=== PATIENT | female | born 1985 | race Caucasian/White ===

== ENCOUNTER 2017-05-27 19:25 | Emergency (ER) | payer MEDICARE, MEDICAID, SELFPAY ==
[2017-05-27 19:27] VITALS: BP 157/95; PULSE 110; RESP 22; TEMP 36.8; O2SAT 100; BMI 51.3
--- NOTE | 2017-05-27 19:31 | EKG12_ITS ---
Test Reason : CP Blood Pressure : / mmHG Vent. Rate : 114 BPM Atrial Rate : 114 BPM P-R Int : 146 ms QRS Dur : 090 ms QT Int : 340 ms P-R-T Axes : 022 045 034 degrees QTc Int : 468 ms Sinus tachycardia Otherwise normal ECG Confirmed by MERLY ARCE, SALOME ([id number]), associate editor TERRY SANCHEZ ([id number]) on 05/30/2017 3:17:01 PM Referred By: MARILEE Confirmed By:SALOME MORELAND MD
--- NOTE | 2017-05-27 20:11 | CT_ITS ---
STUDY: CT BRAIN WITHOUT CONTRAST REASON FOR EXAM: Female, 31 years old. Stuttering with weakness and confusion. RADIATION DOSAGE (If Supplied By Facility): CTDIvol = ( 44.99 ) mGy, DLP = ( 748.30 ) mGycm TECHNIQUE: Transaxial CT imaging of the brain was performed without administration of intravenous contrast material. Multiplanar reformations are submitted for interpretation. Individualized dose optimization techniques were used for this CT. COMPARISON: CT of the head dated October 29, 2016. FINDINGS: Normal soft tissue structures. Patient has had a previous right-sided craniotomy. There is mild cerebral atrophy with widening of the extra-axial spaces and ventricular dilatation. Patient apparently has had partial resection of anterior right temporal lobe. This appearance is unchanged since the previous CT. Normal white matter tracts of the cerebral hemispheres. Normal basal ganglia and thalami. Normal brainstem. There is mild cerebellar atrophy. There is no intracranial hemorrhage. There is minimal atherosclerotic calcification of intracranial arteries Normal visualized paranasal sinuses. CT/Brain/Head without Contrast IMPRESSION: 1. Postoperative changes of the right temporal lobe and right cranium. 2. No CT evidence of acute intracranial hemorrhage. Electronically Signed: Ashly Banks MD at 21:31 EDT , Service support ,
[2017-05-27 20:36] LABS: Absolute Lymphocyte Count 1.87 X10^3/ul (0.83-4.51); Basophil# 0.02 X10^3/uL; Basophil% 0.3 % (0-1); Hematocrit 37.6 % (37-47); Hemoglobin 12.2 g/dl (12.0-15.0); Lymphocyte # 1.87 X10^3/ul (4.0); Lymphocyte % 25.5 % (19-41); Mean Corp Hgb Conc 32.4 g/gl (32-36); Mean Corpuscular Hgb 25.2 pg (27.0-32.0); Mean Corpuscular Volume 77.7 fL (81-99); Mean Platelet Vol. 9.5 fl (6.2-12.0); Monocyte# 0.49 X10^3/uL; Monocyte% 6.7 % (0-10); Neutrophil # 4.95 X10^3/uL (2.7-7.7); Neutrophil % 67.4 % (47-70); Platelet Count 342 K/mm3 (150-450); RBC Distribution Width CV 13.4 % (11.6-14.6); RBC Distribution Width SD 38.2 fl (35.1-43.9); Red Blood Count 4.84 M/mm3 (4.2-5.4); White Blood Count 7.3 K/mm3 (4.4-11.0)
[2017-05-27 20:38] LABS: POSITIVE COUNT NO; POSITIVE DIFFERENTIAL NO; POSITIVE MORPHOLOGY NO
[2017-05-27 20:47] LABS: Anion Gap 11 (5-15); BUN 12 mg/dL (7-18); BUN/Creat Ratio 14.5 RATIO (10-20); Calcium,Total 9.1 mg/dL (8.5-10.1); Chloride 108 mmol/L (98-107); Creatinine, Serum 0.83 mg/dL (0.55-1.02); EST Glomerular Filtration Rate 84 mL/min (>60); Est Glom Filt Rate - Afr Amer 101 mL/min (>60); Estimated Creatinine Clearance 79.75 ml/min; Glucose 91 mg/dL (74-106); Potassium 4.2 mmol/L (3.5-5.1); Sodium Level 140 mmol/L (136-145)
[2017-05-27] MEDS: 0.9% Normal Saline 1,000 ML 1000 ML IV (21:05)
[2017-05-27 21:06] LABS: Pregnancy, Serum, hCG Quali. NEGATIVE Negative (0-9 Nonpreg)
[2017-05-27 21:39] VITALS: BP 128/80; PULSE 100; RESP 14; O2SAT 96
--- NOTE | 2017-05-27 21:46 | ED.VISSUMM ---
- ER Visit Summary Date of Service: 05/27/17 Chief Complaint: Stuttering History of Present Illness: The patient is a [address] Ordonez and does not have a primary care physician. Patient reports that she has been stuttering for the past 2 days and that both arms are numb for the past 2 days. States that she has a headache that is 3 out of 10 severity. She also reports that she has mild shortness of breath and has not been wheezing. Patient denies any fever, sore throat, cough, chest pain, abdominal pain, nausea, vomiting, diarrhea, melena or hematochezia, dysuria or frequency. She denies any rash or weakness. Patient does have a history of depression. She denies any suicidal ideation or auditory hallucinations. Patient has a history of seizures that were refractory to treatment and she had a right temporal lobectomy for this. He is currently on Keppra. Physical Examination: Vitals: Stable. Afebrile. General: Well-nourished and well-developed. Head: Normocephalic atraumatic. Neck: Supple, no lymphadenopathy. No JVD. Nontender. Cardiovascular: Regular rate and rhythm. No murmurs. Respiratory: No respiratory distress. Clear to auscultation bilaterally. Abdominal: Soft, nontender, nondistended, normal bowel sounds. No guarding, rebound, or peritoneal signs. Back: Nontender. Extremities: Nontender, no edema. Skin: Normal color, no rash. Neurologic: Alert and oriented ?3. Cranial nerves II through XII are intact. Normal strength and sensation. Mental status exam: Patient appears their stated age. Good posture and grooming. Good eye contact. Normal rate, volume, and latency of speech. No suicidal or homicidal ideation. No auditory or visual hallucinations. Flow of thought is logical. Insight and judgment is fair. Test Results: CT brain shows postoperative changes from a right temporal lobe and cranium with no intracranial hemorrhage and no acute disease. CBC is normal. Chem-7 is more for chloride 108. test is negative. Emergency Department Course and Treatment: Throughout initial questioning the patient's daughter to when she stated no. However, with prolonged talking or conversation she had no stutter at all. When she was distracted she had no stutter. When I reentered the room to tell her the results of her tests she had no stutter. Despite the fact that she complains of paresthesias in her arms this is not present on exam. I suspect that this is due to depression and/or a conversion disorder. Treatment Plan: Patient will be discharged instructions to follow-up with her neurologist as soon as possible. She is also instructed follow-up the [facility] for further evaluation. Return to the emergency department for any worsening symptoms. Disposition: To home in improved and stable condition. Impression: 1. Depression. 2. History of seizures. 3. History of right temporal lobectomy. This note was generated with [employer] dictation software. It may contain incorrect words, spelling, and punctuation that were not noted in review of the chart prior to signing ED Disposition - Plan for ED Patient: Disposition: Home or Assisted Living Chief Complaint: Neuro S/Sx Instructions: ED Paraesthesias Referrals: Anderson Ordonez MD [STAFF PHYSICIAN] - As soon as possible Thuy Ortez [NON-STAFF] - 1-2 Days if not improving
[2017-05-27 21:55] VITALS: BP 135/80; PULSE 95; RESP 14; O2SAT 100
== END 2017-05-27 21:56 | disposition home or self-care (01) ==
LOC: ED 20:36
PROVIDERS: Emergency Provider Emergency Medicine
DX: F32.9 Major depressive disorder, single episode, unspecified (principal); R51 Headache; R20.2 Paresthesia of skin; R06.00 Dyspnea, unspecified; G40.909 Epilepsy, unspecified, not intractable, without status epilepticus
CPT/HCPCS: 70450; 80048; 84703; 85025; 93005; 99284; J7030; A4216

== ENCOUNTER 2017-07-24 12:27 | Emergency (ER) | payer OTHER, MEDICARE, MEDICAID, SELFPAY ==
[2017-07-24 12:28] VITALS: BP 165/107; PULSE 94; RESP 16; TEMP 36.9; O2SAT 98; BMI 50.3
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
--- NOTE | 2017-07-24 14:40 | ED.RN ---
DR DEE TALKED WITH PT. STATES HE WILL DO THE XRAY IF THAT IS WHAT IT TAKES FOR HER TO BE SAFE. DOES NOT WANT SOMETHING TO HAPPEN TO HER ITS NOT WORTH IT. SO WE WILL GET THE XRAY IF THAT IS WHAT IT TAKES. PT AGREEABLE THAT SHE FEELS XRAY IS SUFFICIENT AND WILL MAKE HER FEEL BELIEVED AND VERBALIZES SHE WILL NOT AND HAS NO NO PLANS TO HURT HERSELF.
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
[2017-07-24 15:20] VITALS: BP 154/92; PULSE 109; RESP 17; O2SAT 98
== END 2017-07-24 15:21 | disposition home or self-care (01) ==
PROVIDERS: Emergency Provider Emergency Medicine
DX: E28.2 Polycystic ovarian syndrome (principal); R10.33 Periumbilical pain; N93.8 Other specified abnormal uterine and vaginal bleeding; M54.5 Low back pain; F32.9 Major depressive disorder, single episode, unspecified; F60.3 Borderline personality disorder; G40.909 Epilepsy, unspecified, not intractable, without status epilepticus
CPT/HCPCS: 72100; 99282

== ENCOUNTER → 2017-08-30 16:07 | Outpatient (CLI) | payer MEDICARE, MEDICAID, SELFPAY ==
[2017-08-30 17:32] LABS: Absolute Lymphocyte Count 1.96 X10^3/ul (0.83-4.51); Absolute Neutrophil Count 3.4 X10^3/uL (2.0-7.7); Basophil# 0.04 X10^3/uL; Basophil% 0.7 % (0-1); Eosinophil# 0.09 X10^3/uL; Eosinophils% 1.5 % (0-5); Hematocrit 28.1 % (37-47); Hemoglobin 8.6 g/dl (12.0-15.0); Lymphocyte # 1.96 X10^3/ul (4.0); Lymphocyte % 32.7 % (19-41); Mean Corp Hgb Conc 30.6 g/gl (32-36); Mean Corpuscular Hgb 23.2 pg (27.0-32.0); Mean Corpuscular Volume 75.7 fL (81-99); Mean Platelet Vol. 9.8 fl (6.2-12.0); Monocyte# 0.53 X10^3/uL; Monocyte% 8.8 % (0-10); Neutrophil # 3.37 X10^3/uL (2.7-7.7); Neutrophil % 56.1 % (47-70); Platelet Count 389 K/mm3 (150-450); RBC Distribution Width CV 13.1 % (11.6-14.6); RBC Distribution Width SD 34.8 fl (35.1-43.9); Red Blood Count 3.71 M/mm3 (4.2-5.4)
[2017-08-30 17:37] LABS: POSITIVE COUNT NO; POSITIVE DIFFERENTIAL NO; POSITIVE MORPHOLOGY NO
[2017-09-03 09:04] LABS: Testosterone Free 1.4 pg/mL (0.0-4.2)
== END ==
PROVIDERS: Visit Provider Obstetrics & Gynecology
DX: L68.0 Hirsutism (principal); N93.9 Abnormal uterine and vaginal bleeding, unspecified
CPT/HCPCS: 36415; 84402; 85025

== ENCOUNTER 2017-09-06 22:09 | Emergency (ER) | payer MEDICARE, MEDICAID, SELFPAY ==
[2017-09-06 22:10] VITALS: BP 173/95; PULSE 83; RESP 20; TEMP 36.7; O2SAT 99; BMI 52.8
--- NOTE | 2017-09-06 22:24 | CT_ITS ---
STUDY: CT BRAIN WITHOUT CONTRAST REASON FOR EXAM: Female, 32 years old. Headache RADIATION DOSAGE (If Supplied By Facility): CTDIvol = ( 44.99 ) mGy, DLP = ( 779.24 ) mGycm TECHNIQUE: Transaxial CT imaging of the brain was performed without administration of intravenous contrast material. Individualized dose optimization techniques were used for this CT. COMPARISON: 05/27/2017 FINDINGS: There are stable postsurgical changes from a right temporal craniotomy. There is stable encephalomalacia anteriorly in the right temporal lobe. There is no acute bleed or infarct. There are normal white matter tracts. The ventricles are normal in configuration. There is no hydrocephalus. The visualized paranasal sinuses are clear. The mastoid air cells are well aerated. There is no skull fracture. CT/Brain/Head without Contrast IMPRESSION: No acute intracranial abnormality. Stable postsurgical changes from a right temporal craniotomy with subjacent encephalomalacia in the right anterior temporal lobe. Electronically Signed: Ronnie Fernando, at 23:17 EDT Tel , Service support ,
--- NOTE | 2017-09-06 22:43 | ED.VISSUMM ---
- ER Visit Summary Date of Service: 09/06/17 Chief Complaint: Multiple symptoms for the past weeks to months. History of Present Illness: The patient is a 32 F who presents with multiple symptoms for the past weeks to months that been intermittent in nature. She is complained of headache intermittently and blurred vision intermittently by ocular. She complains of numbness left side of her lower face with drooling. When she explained this to me she began to pick at her lip. She also began to cry because she felt stupid because polyps were missed when she was seen here last time. When asked for her to elaborate she informed me that she had uterine polyps. She also reports abnormal vaginal bleeding for greater than a month. She is scheduled to see a bus person dishwasher for possible hysterectomy. She denies fever, chills night sweats. Denies weight loss or weight gain. She denies partial loss of vision or total loss of vision. She denies ringing in her ears, decreased hearing or ear pain. She denies any eye pain or photo sensitivity. She denies any neck pain or neck stiffness. She denies slurred speech. She states sometimes she does not say the right word and will say a number. She denies any paresthesia, anesthesia motor weakness of her upper lower extremity. Denies trouble with balance or walking. She denies any skin lesions. She does admit to depression anxiety. Past medical history of depression, seizure disorder and polycystic ovarian syndrome. Physical Examination: Patient's vital signs are noted. Blood pressure is elevated 173/93. She has a depressed affect and was crying during the history and physical. Pupils equal round reactive. Extra muscles are intact. TMs are normal. Nares patent. No discharge or drainage noted. Posterior pharynx without erythema XA. Uvula is midline. Trachea is midline. Is no carotid bruit. No cervical lymphadenopathy. Heart is regular without murmur, gallop or rub. S1 and S2 are normal. Lungs are clear to auscultation with good movement of air bilaterally. Abdomen is soft nontender with normal bowel sounds. No skin lesions or rashes noted. She does have hirsutism. Patient is alert and oriented ?3. Motor is 5 over 5. Sensory is intact. DTRs are symmetric with no clonus or Babinski sign. Cranial 2 through 12 are intact. Cerebellar testing is normal. Test Results: CT of the head reveals postoperative changes of the right temporal lobe and right cranium and unchanged from CT performed on May 27, 2017. CBC reveals macrocytic anemia. She is presently taking iron sulfate 3 and 25 mg twice a day. Emergency Department Course and Treatment: To evaluate patient's constellation of symptoms will obtain a CAT scan of the head and blood work. Differential includes pseudodementia from depression, sinusitis, intracranial pathology i.e. tumor, and will assess electrolytes since she is on Keppra which can cause hyponatremia. Treatment Plan: Patient informed her nurse, Nathan, she has spinning when she turns her head to the right. Will perform Hallpike maneuver and if positive Marlyn maneuver. [place]-Hallpike maneuver was negative. Eye askew test was negative. No abnormality noted on H INT test Disposition: Discharged to home in stable condition. Impression: 1. Confusion unknown cause 2. Vertigo suspect paroxysmal benign positional vertigo 3. Microcytic anemia secondary to abnormal vaginal bleeding 4. History of polycystic ovarian syndrome 5. History of seizure disorder status post craniotomy 6. History of depression anxiety This note was generated with [employer] dictation software. It may contain incorrect words, spelling, and punctuation that were not noted in review of the chart prior to signing ED Disposition - Plan for ED Patient: Disposition: Home or Assisted Living Chief Complaint: Allergic Reaction Instructions: ED Confusion, ED BPV Vertigo, ED Anemia Iron Deficiency Referrals: Abdirashid Vazquez DO [Primary Care Provider] - 5-7 Days
--- NOTE | 2017-09-06 22:49 | ED.DCSUM_ITS ---
- ER Visit Summary Date of Service: 09/06/17 Chief Complaint: Multiple symptoms for the past weeks to months. History of Present Illness: The patient is a 32 F who presents with multiple symptoms for the past weeks to months that been intermittent in nature. She is complained of headache intermittently and blurred vision intermittently by ocular. She complains of numbness left side of her lower face with drooling. When she explained this to me she began to pick at her lip. She also began to cry because she felt stupid because polyps were missed when she was seen here last time. When asked for her to elaborate she informed me that she had uterine polyps. She also reports abnormal vaginal bleeding for greater than a month. She is scheduled to see a environmental remediation specialist for possible hysterectomy. She denies fever, chills night sweats. Denies weight loss or weight gain. She denies partial loss of vision or total loss of vision. She denies ringing in her ears, decreased hearing or ear pain. She denies any eye pain or photo sensitivity. She denies any neck pain or neck stiffness. She denies slurred speech. She states sometimes she does not say the right word and will say a number. She denies any paresthesia, anesthesia motor weakness of her upper lower extremity. Denies trouble with balance or walking. She denies any skin lesions. She does admit to depression anxiety. Past medical history of depression, seizure disorder and polycystic ovarian syndrome. Physical Examination: Patient's vital signs are noted. Blood pressure is elevated 173/93. She has a depressed affect and was crying during the history and physical. Pupils equal round reactive. Extra muscles are intact. TMs are normal. Nares patent. No discharge or drainage noted. Posterior pharynx without erythema XA. Uvula is midline. Trachea is midline. Is no carotid bruit. No cervical lymphadenopathy. Heart is regular without murmur, gallop or rub. S1 and S2 are normal. Lungs are clear to auscultation with good movement of air bilaterally. Abdomen is soft nontender with normal bowel sounds. No skin lesions or rashes noted. She does have hirsutism. Patient is alert and oriented ?3. Motor is 5 over 5. Sensory is intact. DTRs are symmetric with no clonus or Babinski sign. Cranial 2 through 12 are intact. Cerebellar testing is normal. Test Results: CT of the head reveals postoperative changes of the right temporal lobe and right cranium and unchanged from CT performed on May 27, 2017. CBC reveals macrocytic anemia. She is presently taking iron sulfate 3 and 25 mg twice a day. Emergency Department Course and Treatment: To evaluate patient's constellation of symptoms will obtain a CAT scan of the head and blood work. Differential includes pseudodementia from depression, sinusitis, intracranial pathology i.e. tumor, and will assess electrolytes since she is on Keppra which can cause hyponatremia. Treatment Plan: Patient informed her nurse, Nathan, she has spinning when she turns her head to the right. Will perform Hallpike maneuver and if positive Marlyn maneuver. [place]-Hallpike maneuver was negative. Eye askew test was negative. No abnormality noted on H INT test Disposition: Discharged to home in stable condition. Impression: 1. Confusion unknown cause 2. Vertigo suspect paroxysmal benign positional vertigo 3. Microcytic anemia secondary to abnormal vaginal bleeding 4. History of polycystic ovarian syndrome 5. History of seizure disorder status post craniotomy 6. History of depression anxiety This note was generated with [employer] dictation software. It may contain incorrect words, spelling, and punctuation that were not noted in review of the chart prior to signing ED Disposition - Plan for ED Patient: Disposition: Home or Assisted Living Chief Complaint: Allergic Reaction Instructions: ED Confusion, ED BPV Vertigo, ED Anemia Iron Deficiency Referrals: Abdirashid Vazquez DO [Primary Care Provider] - 5-7 Days
[2017-09-06 22:53] LABS: Absolute Lymphocyte Count 2.12 X10^3/ul (0.83-4.51); Absolute Neutrophil Count 4.4 X10^3/uL (2.0-7.7); Basophil# 0.03 X10^3/uL; Basophil% 0.4 % (0-1); Eosinophil# 0.07 X10^3/uL; Hematocrit 30.1 % (37-47); Hemoglobin 9.4 g/dl (12.0-15.0); Lymphocyte # 2.12 X10^3/ul (4.0); Lymphocyte % 29.4 % (19-41); Mean Corp Hgb Conc 31.2 g/gl (32-36); Mean Platelet Vol. 9.8 fl (6.2-12.0); Monocyte# 0.52 X10^3/uL; Monocyte% 7.2 % (0-10); Neutrophil # 4.42 X10^3/uL (2.7-7.7); Neutrophil % 61.4 % (47-70); Platelet Count 357 K/mm3 (150-450); RBC Distribution Width SD 38.4 fl (35.1-43.9); Red Blood Count 3.91 M/mm3 (4.2-5.4); White Blood Count 7.2 K/mm3 (4.4-11.0)
[2017-09-06 22:54] LABS: POSITIVE COUNT NO; POSITIVE DIFFERENTIAL NO; POSITIVE MORPHOLOGY NO
[2017-09-06 23:16] LABS: Anion Gap 9 (5-15); BUN 11 mg/dL (7-18); BUN/Creat Ratio 14.4 RATIO (10-20); Calcium,Total 8.9 mg/dL (8.5-10.1); Chloride 108 mmol/L (98-107); Creatinine, Serum 0.77 mg/dL (0.55-1.02); EST Glomerular Filtration Rate 92 mL/min (>60); Est Glom Filt Rate - Afr Amer 111 mL/min (>60); Estimated Creatinine Clearance 85.16 ml/min; Glucose 93 mg/dL (74-106); Potassium 4.3 mmol/L (3.5-5.1); Sodium Level 139 mmol/L (136-145)
[2017-09-06 23:19] VITALS: BP 152/68; PULSE 68; RESP 16; O2SAT 98
[2017-09-06 23:28] VITALS: BP 152/68; PULSE 75; RESP 24; O2SAT 99
== END 2017-09-06 23:31 | disposition home or self-care (01) ==
PROVIDERS: Emergency Provider Emergency Medicine; Family Provider Student in an Organized Health Care Education/Training Program; PCP Student in an Organized Health Care Education/Training Program
DX: R41.0 Disorientation, unspecified (principal); R42 Dizziness and giddiness; D50.9 Iron deficiency anemia, unspecified; E28.2 Polycystic ovarian syndrome; G40.909 Epilepsy, unspecified, not intractable, without status epilepticus; F41.8 Other specified anxiety disorders; E66.9 Obesity, unspecified
CPT/HCPCS: 70450; 80048; 85025; 99285; A4216

== ENCOUNTER 2017-09-14 12:03 | Day surgery (SDC) | payer MEDICARE, MEDICAID, SELFPAY ==
--- NOTE | 2017-09-12 17:11 | HP.PCM_ITS ---
- Problem List (1) Abnormal uterine bleeding Status: Acute Comment: recommend d and c hysteroscopy, provera given History and Physical Date of Admission: 09/14/17 Vital Signs 08/30/17 Height 5 ft 4 in 08/30/17 Weight: 300 lb 4 oz 08/30/17 Body Mass Index (BMI) 51.5 08/30/17 Blood Pressure 118/78 Intake Visit Reasons: discuss abnormal ultrasound Is patient in pain?: Yes (Most of the time) Pain scale (1-10): 7 Allergies phenobarbital Allergy (Verified 08/30/17 15:24) Unknown Medications levETIRAcetam tablet [Keppra tablet] 1,000 mg PO BREAKFAST 05/24/15 [History Confirmed 07/24/17] levETIRAcetam tablet [Keppra tablet] 500 mg PO QHS 11/12/15 [History Confirmed 07/24/17] ALPRAZolam [Xanax] 2 mg PO TID PRN PRN tab 11/01/16 [Rx Confirmed 07/24/17] Amitriptyline HCl 1 - 3 tab PO PRN PRN 12/12/16 [History Confirmed 07/24/17] megestrol 40 mg tablet 40 mg PO ONCE #30 tab 08/30/17 [Rx Confirmed 08/30/17] PFSH Medical History Anxiety and depression (Acute) Surgical History partial labotomy (Acute) Family History Mother Heart disease Social History Smoking Status: Never smoker alcohol intake: current details: social substance use type: does not use caffeine: Yes what type of physical activity do you participate in: none seatbelt use: always do you feel safe at home: Yes additional social history: single-unemployed HPI discuss abnormal ultrasound: Details: JOSSE WAYNE is a 32 year old who presents for persistent abnormal bleeding. [facility] lining. she has had irregular bleeding for several months now. she has had negatve tests during all of this. she has tried intermittent progesterone with persistent bleeding. Female Reproductive History Questions: Metorrhagia: Yes, Sexually active: No Pregancy History 0 Elective abortions Hx Para Spontaneous abortions Hx # Term Pregnancies Ectopic pregnancies Hx # Pregnancies Multiple births # of living children ROS Const Constitutional: Reports system reviewed and no additional complaints, except as docu GI GI: Reports system reviewed and no additional complaints, except as docu Exam Const General: cooperative, healthy appearing, comfortable, no acute distress, well developed Nutritional Appearance: obese morbidy Orientation: alert [facility] Head: normal to inspection, normocephalic Ears: hearing grossly normal bilaterally, external ears normal Nose: external nose normal, nares normal Face and sinus: normal facial exam Neck Neck: normal visual inspection, trachea midline, no lymphadenopathy Thyroid: thyroid normal Resp Effort & Inspection: normal respiratory effort Musc Other: gross motor intact no deficits, full bilateral strength Skin General: no rashes or lesions noted Neuro Motor: muscle tone normal throughout Assessment & Plan Problems 1. Hirsutism L68.0 2. PCOS (polycystic ovarian syndrome) E28.2 3. Abnormal uterine bleeding N93.9 recommend d and c hysteroscopy, provera given Plan recommend endometrial evaluation. plan d and c hysteroscopy Orders Orders: CBC W/Diff, Automated 08/30/17 L68.0, N93.9 Testosterone Free 08/30/17 L68.0, N93.9 Medications New: megestrol 40 mg PO ONCE Coding Level of Care Code Off vis,est,level 4 Diagnoses Hirsutism L68.0 PCOS (polycystic ovarian syndrome) E28.2 Abnormal uterine bleeding N93.9 UPDATE- I have seen the patient and performed any clinically relevant updates to the history and physical exam. Sheyla Foster MD
[2017-09-14] VITALS (7 sets, daily range): BP systolic 103–138; BP diastolic 65–94; PULSE 63–78; RESP 16–18; TEMP 36.5–36.9; O2SAT 94–100; BMI 51.0
[2017-09-14 12:32] LABS: Internal QC Validated? YES +Cl - CLEAR BKGD; Pregnancy, Urine Negative Negative
--- NOTE | 2017-09-14 13:50 | EMB_PTH ---
PATIENT: JOSSE WAYNE LOC[place] [facility] [place][id number] AGE/SX: 32/F ROOM: RE09/14/[address]: Dr. Sheyla Foster MD : [id number] BED: DIS: 09/14/2017 SPEC #: [id number] RECD: 09/15/17 06:57 STATUS: FLORENCE ANDERS #: [id number] MAG: 09/14/17 13:[address]: Sheyla Foster DEPT: SURGICAL PATHOLOGY RECD BY: Derrick Thomas ENTERED: 09/15/17 11:38 SP TYPE: ENDOM BX/C TAYLOR DR: No Primary Care Phys Tissues: Endometrium, NOS Procedures: Surgery Specimen Level IV HEADER OPERATION: Hysteroscopy, dilation and curettage PRE-OP DIAGNOSIS: Abnormal uterine bleeding TISSUE SUBMITTED: Endometrial curettings MICROSCOPIC DIAGNOSIS Endometrial curettings: Disordered proliferative endometrium. SJ:todd 09/18/17 MICROSCOPIC DESCRIPTION Slides are reviewed. GROSS DESCRIPTION Received in fixative is one container labeled with the patient's name and designated endometrial curettings. The specimen consists of multiple irregular fragments of dark to light costa soft tissue that in aggregate measure 5 x 3 x 0.2 cm. The specimen is totally submitted in two cassettes. / AM:todd 09/15/17 TC:5 CPT: 34168
--- NOTE | 2017-09-14 14:12 | PCM.OPRPT ---
Problem List (1) Abnormal uterine bleeding Status: Acute Comment: recommend d and c hysteroscopy, provera given Report of Operation Date of Procedure: 09/14/17 Pre-Operative Diagnosis: AUB Surgery/Procedure Performed:: d and c hysteroscopy Description of Surgical Findings:: Thickened endometrial lining no gross abnormality Type of Anesthesia:: Local MAC Special Medications: none Specimen's removed: emc Drains: none Estimated Blood Loss (mL): Minimal Fluids Replaced: crystalloid Description of Procedure: Patient was prepped and draped in a normal sterile fashion under MAC anesthesia. A weighted speculum was placed in the vagina and the anterior lip of the cervix was grasped with a single-tooth tenaculum. A paracervical block was placed with 1% lidocaine. Cervix was progressively dilated to allow passage of a 5 mm hysteroscope. The lining was fully visualized and noted to have thickened lining. Uterine sounded to 9 cm. Curettage was performed and a moderate amount of tissue was collected, sent to pathology. All instruments were removed from the vagina and excellent hemostasis was noted. Patient was awoken and taken to recovery in stable condition. Grafts/Implants Used: None - Complications None - Admit VTE Documentation VTE Present on Admission: No VTE Mechan Device Prophylaxis: SCD's
--- NOTE | 2017-09-14 14:21 | PCM.DC.D&C ---
Discharge Diet: No Restrictions Discharge Activity: Return to Normal Activity, May Shower, May Take a Tub Bath Allergies/Adverse Reactions: Allergies phenobarbital Allergy (Verified 09/08/17 08:11) Unknown Medications to take at Discharge levETIRAcetam tablet [Keppra tablet] 1,000 mg PO BREAKFAST 05/24/15 levETIRAcetam tablet [Keppra tablet] 500 mg PO QHS 11/12/15 Amitriptyline HCl 1 - 3 tab PO PRN PRN 12/12/16 Biotin 1 tab PO DAILY 09/06/17 Ferrous Sulfate [Iron] 1 tab PO TID 09/06/17 ALPRAZolam [Xanax] 2 mg PO BID 09/08/17 Megestrol Acetate 40 mg PO DAILY 09/08/17 Primary Care Physician: Care Physician,No Primary [Primary Care Provider] - Test Results: Please Follow Up With: Sheyla Foster MD - [phone]
== END 2017-09-14 16:07 | disposition home or self-care (01) ==
LOC: SDC 12:04 → AC 12:05
PROVIDERS: Visit Provider Obstetrics & Gynecology
PROC: 0UDB8ZZ Extraction of Endometrium, Via Natural or Artificial Opening Endoscopic (ICD-10-PCS; CPT 58558; principal; 2017-09-14 13:40)
DX: N93.9 Abnormal uterine and vaginal bleeding, unspecified (principal); E28.2 Polycystic ovarian syndrome; L68.0 Hirsutism; E66.01 Morbid (severe) obesity due to excess calories; Z68.43 Body mass index [BMI] 50.0-59.9, adult
CPT/HCPCS: 58558; 81025; 88305; J7120

== ENCOUNTER 2017-11-16 13:07 | Emergency (ER) | payer MEDICARE, MEDICAID, SELFPAY ==
[2017-11-16] VITALS (9 sets, daily range): BP systolic 127–152; BP diastolic 75–97; PULSE 65–78; RESP 14–18; TEMP 37; O2SAT 97–100; BMI 50.6
--- NOTE | 2017-11-16 13:21 | EKG12_ITS ---
Test Reason : MENTAL HEALTH Blood Pressure : / mmHG Vent. Rate : 060 BPM Atrial Rate : 060 BPM P-R Int : 174 ms QRS Dur : 098 ms QT Int : 420 ms P-R-T Axes : 012 031 040 degrees QTc Int : 420 ms Normal sinus rhythm with sinus arrhythmia Normal ECG Confirmed by JOSE DE JESUS LIU ([id number]), visual effects editor TERRY SANCHEZ ([id number]) on 11/21/2017 2:37:23 PM Referred By: FRANCINE Confirmed By:JOSE DE JESUS LIU
[2017-11-16 14:17] LABS: Absolute Lymphocyte Count 1.81 X10^3/ul (0.83-4.51); Absolute Neutrophil Count 2.7 X10^3/uL (2.0-7.7); Basophil# 0.02 X10^3/uL; Basophil% 0.4 % (0-1); Eosinophil# 0.03 X10^3/uL; Eosinophils% 0.6 % (0-5); Hematocrit 40.1 % (37-47); Lymphocyte # 1.81 X10^3/ul (4.0); Lymphocyte % 37.5 % (19-41); Mean Corp Hgb Conc 32.4 g/gl (32-36); Mean Corpuscular Hgb 26.3 pg (27.0-32.0); Mean Corpuscular Volume 81.2 fL (81-99); Mean Platelet Vol. 9.5 fl (6.2-12.0); Monocyte# 0.31 X10^3/uL; Monocyte% 6.4 % (0-10); Neutrophil # 2.66 X10^3/uL (2.7-7.7); Neutrophil % 55.1 % (47-70); POSITIVE COUNT NO; POSITIVE DIFFERENTIAL NO; POSITIVE MORPHOLOGY NO; Platelet Count 265 K/mm3 (150-450); RBC Distribution Width CV 15.9 % (11.6-14.6); RBC Distribution Width SD 46.8 fl (35.1-43.9); Red Blood Count 4.94 M/mm3 (4.2-5.4); White Blood Count 4.8 K/mm3 (4.4-11.0)
[2017-11-16 14:37] LABS: ALB/GLOB Ratio 0.9 RATIO (0.9-2.4); AST(SGOT) 36 U/L (15-37); Alanine Aminotransfer ALT/SGPT 49 U/L (13-56); Albumin, Serum 3.6 g/dL (3.2-5.0); Alkaline Phosphatase 85 U/L (45-117); Anion Gap 10 (5-15); BUN 9 mg/dL (7-18); BUN/Creat Ratio 11.4 RATIO (10-20); Chloride 107 mmol/L (98-107); Creatinine, Serum 0.79 mg/dL (0.55-1.02); EST Glomerular Filtration Rate 89 mL/min (>60); Est Glom Filt Rate - Afr Amer 107 mL/min (>60); Estimated Creatinine Clearance 86.65 ml/min; Globulin 4.1 g/dL (2.2-4.2); Glucose 87 mg/dL (74-106); Potassium 3.7 mmol/L (3.5-5.1); Protein, Total 7.7 g/dL (6.4-8.2); Sodium Level 141 mmol/L (136-145); Thyroid Stim Hormone (TSH) 1.69 uIU/mL (0.358-3.74)
[2017-11-16 14:45] LABS: Amphetamine Urine VISTA NEGATIVE (<1000 ng/mL); Barbiturate Urine VISTA NEGATIVE (< 200 ng/mL); Benzodiazepine Urine VISTA POSITIVE (< 200 ng/mL); Cocaine Urine VISTA NEGATIVE (< 300 ng/mL); Ecstacy Urine VISTA NEGATIVE (< 500 ng/mL); Methadone Urine VISTA NEGATIVE (< 300 ng/mL); PCP Urine VISTA NEGATIVE (< 25 ng/mL); THC Urine VISTA NEGATIVE (< 50 ng/mL); Vista UDS pH Range 7
[2017-11-16 14:59] LABS: Alcohol, Blood (Medical)-Serum < 3.0 mg/dL
--- NOTE | 2017-11-16 15:02 | ED.RN ---
1308- Sitter at bedside for one to one continual observation.
[2017-11-16 15:05] LABS: Pregnancy, Serum, hCG Quali. NEGATIVE Negative (0-9 Nonpreg)
--- NOTE | 2017-11-16 15:12 | ED.RN ---
CALLED MENTAL HEALTH TO NOTIFY THAT PATIENT IS MEDICALLY CLEARED
[2017-11-16 15:40] LABS: Mucous, Urine 0 SEEN /hpf (<or=2+)
[2017-11-16 15:45] LABS: Color, Urine Yellow (Yellow); Glucose, Dipstick Normal (Normal); Ketone-Dipstick 5 mg/dl (Negative); Leukocyte Esterase-Dipstick 25 /ul (Negative); Nitrite-Dipstick Negative (Negative); Occult Blood-Urine 250 /ul (Negative); Protein-Dipstick 15 mg/dl (Negative); Urine Bilirubin Dipstick Negative (Negative); Urine Clarity Sl. Cloudy (Clear); Urine Urobilinogen Normal (Normal)
[2017-11-16 16:12] LABS: White Blood Cells 0-5 SEEN /hpf (0-5)
[2017-11-16 16:13] LABS: Bacteria RARE /hpf (None Seen); Red Blood Cells-Urine > 100 SEEN /hpf (0-5); Squamous Epithelial Cells - UA 0-5 SEEN /hpf (5-10)
--- NOTE | 2017-11-16 16:57 | ED.VISSUMM ---
- ER Visit Summary Date of Service: 11/16/17 Chief Complaint: Depression History of Present Illness: The patient is a 32 F who presents with depression due to stress in her life. She is long history of depression and anxiety. She has had prior suicide attempts. She was talking with her counselor down at [address] today and made comments that she was not sure if she was going to be able to keep living. She states that she does not like to be admitted to psychiatric facility but she knows that she needs to get better coping skills and feels like she needs to get stabilized. She has been trying to reduce her Xanax use from 3 times a day down to once or twice however in the past week she is gone up to 3 times a day. She states that she has been under a lot of stress and a person named Raymundo has caused her a lot of stress. She notes stress with her family. Physical Examination: Gen: Well-nourished well-developed Head: Normocephalic atraumatic Eyes: Perrl EOMI ENT: TMs clear no rhinorrhea moist mucous membranes Neck: Supple no lymphadenopathy no JVD nontender CVS: Regular rate rhythm no murmurs normal S1-S2 Respiratory: No distress clear to auscultation bilaterally chest nontender Abdomen: Soft nontender nondistended normal bowel sounds no masses Back: Nontender Extremity: Nontender no edema Skin: Normal color no rash Neuro: alert orientated ?3 CN II-XII intact normal strength sensation reflexes gait cerebellar Psych: Depressed and tearful with occasional pressured speech no homicidal ideation. She is not sure about suicidal ideation. Test Results: CBC CMP EKG urinalysis test drugs of abuse and alcohol level were obtained. Patient was cleared for crisis. Emergency Department Course and Treatment: Patient cleared for crisis and crisis will come and evaluate the patient. Impression: 1. Depression This note was generated with [employer] dictation software. It may contain incorrect words, spelling, and punctuation that were not noted in review of the chart prior to signing ED Disposition - Plan for ED Patient: Chief Complaint: Suicidal Referrals: Care Physician,No Primary [Primary Care Provider] -
[2017-11-16] MEDS: levETIRAcetam 500 MG Tablet PO (21:26)
[2017-11-16] MEDS: ALPRAZolam 0.5 MG Tablet 2 MG PO (21:29)
--- NOTE | 2017-11-16 22:21 | ED.RN ---
patients house and mailbox perez are currently locked up with security at this time. Security will hold keys until either patient or POA can obtain them
[2017-11-17 00:37] VITALS: PULSE 65; RESP 18; O2SAT 98
== END 2017-11-17 00:38 | disposition home or self-care (01) ==
PROVIDERS: Emergency Provider Emergency Medicine
DX: F32.9 Major depressive disorder, single episode, unspecified (principal); F41.9 Anxiety disorder, unspecified; Z79.899 Other long term (current) drug therapy
CPT/HCPCS: 80053; 80307; 80320; 81001; 84443; 84703; 85025; 93005; 99284; G0480

== ENCOUNTER 2018-01-02 22:26 | Emergency (ER) | payer MEDICARE, SELFPAY ==
[2018-01-02 22:26] VITALS: BP 168/118; PULSE 86; RESP 14; TEMP 36.6; O2SAT 99; BMI 52.7
--- NOTE | 2018-01-02 22:54 | ED.DEP ---
ED Disposition - Plan for ED Patient: Chief Complaint: Chest Other Instructions: ED Cyst Sebaceous Infec IandD Prescriptions: Cephalexin [Keflex] 500 mg PO Q6 #40 cap Smz/Tmp Ds [Bactrim Ds] 1 tab PO BID #14 tab Referrals: Care Physician,No Primary [Primary Care Provider] - Anderson Castano MD [STAFF PHYSICIAN] -
--- NOTE | 2018-01-02 22:58 | ED.DCSUM_ITS ---
- ER Visit Summary Date of Service: 01/02/18 Chief Complaint: Lump on left upper chest History of Present Illness: The patient is a 32 F who presents with a lump or lesion on her left upper chest. She states she has had a painless nodule there for about 2-3 years. She was told it was a benign fatty tumor. She was advised to follow-up with plastic surgery if she wanted to have this removed. Today however she noticed overlying redness increasing size and tenderness. She has no systemic symptoms. Physical Examination: Afebrile vitals notable for blood pressure 168/118 Patient appears anxious Heart regular rate and rhythm Lungs are clear Abdomen soft There is a 1 cm left upper chest nodule with overlying erythema which is tender to palpation Test Results: [id number]-dh-[id number] ultrasound does show a well-circumscribed right fluid-filled cystic structure Emergency Department Course and Treatment: Examination findings are consistent with an infected sebaceous cyst. I initially attempted needle aspiration with an 18-gauge needle after infiltration with 1% local lidocaine but this was unsuccessful. A small linear incision was then made with a #11 blade and very thick purulent material was expressed. Patient will be placed on Keflex and Bactrim. She was advised to follow-up with plastics. She was advised of the possibility of recurrence. She was instructed on warm compresses. She was instructed on signs and symptoms to monitor for. Treatment Plan: [] Disposition: Discharge Impression: Incision and drainage of infected sebaceous cyst Sebaceous cyst left upper chest This note was generated with [employer] dictation software. It may contain incorrect words, spelling, and punctuation that were not noted in review of the chart prior to signing ED Disposition - Plan for ED Patient: Chief Complaint: Chest Other Instructions: ED Cyst Sebaceous Infec IandD Prescriptions: Cephalexin [Keflex] 500 mg PO Q6 #40 cap Smz/Tmp Ds [Bactrim Ds] 1 tab PO BID #14 tab Referrals: Anderson Castano MD [STAFF PHYSICIAN] - Care Physician,No Primary [Primary Care Provider] -
[2018-01-02 23:05] VITALS: PULSE 78; RESP 16; O2SAT 99
== END 2018-01-02 23:06 | disposition home or self-care (01) ==
LOC: ED 22:59
PROVIDERS: Emergency Provider Emergency Medicine; Family Provider Student in an Organized Health Care Education/Training Program; PCP Student in an Organized Health Care Education/Training Program
DX: L72.3 Sebaceous cyst (principal); G40.909 Epilepsy, unspecified, not intractable, without status epilepticus
CPT/HCPCS: 10060; 99282

== ENCOUNTER 2018-09-03 22:05 | Inpatient (IN) | payer MEDICARE, MEDICAID, SELFPAY ==
[2018-09-03 22:06] VITALS: BP 147/103; PULSE 139; RESP 24; TEMP 36.1; O2SAT 95; BMI 55.0
--- NOTE | 2018-09-03 22:14 | CT_ITS ---
STUDY: CT BRAIN WITHOUT CONTRAST REASON FOR EXAM: Female, 33 years old. Confusion. Patient found unresponsive. RADIATION DOSAGE (If Supplied By Facility): CTDIvol = ( 44.99 ) mGy, DLP = ( 745.49 ) mGycm TECHNIQUE: Transaxial CT imaging of the brain was performed without administration of intravenous contrast material. Individualized dose optimization techniques were used for this CT. COMPARISON: September 06, 2017. FINDINGS: Normal soft tissue structures. There is evidence of remote temporal craniotomy. Normal size ventricles and extra-axial spaces for the patient's age. Normal white matter tracts of the cerebral hemispheres. 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 Normal basal ganglia and thalami. Normal brainstem. Normal cerebellum. There is no intracranial hemorrhage. There are no findings of an acute ischemic infarction. Normal visualized paranasal sinuses. CT/Brain/Head without Contrast IMPRESSION: No acute intracranial process or interval change. Again seen is evidence of a remote right craniotomy with underlying temporal encephalomalacia. Electronically Signed: Jad Bravo DO at 23:35 EDT Tel [phone], Service support ,
--- NOTE | 2018-09-03 22:14 | RAD_ITS ---
STUDY: X-RAY CHEST REASON FOR EXAM: Female, 33 years old. Unresponsive. TECHNIQUE: Single AP portable view of the chest. COMPARISON: October 31, 2016. FINDINGS: Markedly limited inspiratory effort. Mild perihilar interstitial prominence. There is no demonstrated pleural abnormality. There is borderline cardiomegaly. Normal mediastinum and justo. Normal visualized pulmonary arteries. Normal visualized aortic arch and descending thoracic aorta. Normal visualized thoracic spine. Normal visualized ribs, clavicles, and shoulders. There is no demonstrated abnormality of the visualized soft tissue structures of the upper abdomen. RAD/Chest 1 View (Portable) IMPRESSION: Cardiomegaly with poor inspiratory effort and questionable mild vascular congestion versus vascular crowding. Electronically Signed: Jad Bravo DO at 23:35 EDT Tel [phone], Service support ,
--- NOTE | 2018-09-03 22:14 | EKG12_ITS ---
Test Reason : Blood Pressure : / mmHG Vent. Rate : 135 BPM Atrial Rate : 135 BPM P-R Int : 120 ms QRS Dur : 112 ms QT Int : 354 ms P-R-T Axes : 095 060 049 degrees QTc Int : 531 ms Sinus tachycardia Cannot rule out Anterior infarct , age undetermined Abnormal ECG Prolonged QT interval Confirmed by JOSE DE JESUS LIU ([id number]), editor in chief LILLIE POLLOCK ([id number]) on 09/05/2018 1:41:14 PM Referred By: LUDY Confirmed By:JOSE DE JESUS LIU
[2018-09-03] MEDS: Naloxone 2 MG/2 ML Syringe IV (22:15)
[2018-09-03 22:39] LABS: Absolute Lymphocyte Count 1.35 X10^3/ul (0.83-4.51); Absolute Neutrophil Count 8.2 X10^3/uL (2.0-7.7); Basophil# 0.03 X10^3/uL; Basophil% 0.3 % (0-1); Hematocrit 40.6 % (37-47); Lymphocyte # 1.35 X10^3/ul (4.0); Lymphocyte % 13.3 % (19-41); Mean Corp Hgb Conc 34.5 g/gl (32-36); Mean Corpuscular Volume 84.1 fL (81-99); Mean Platelet Vol. 9.5 fl (6.2-12.0); Monocyte% 5.9 % (0-10); Neutrophil # 8.15 X10^3/uL (2.7-7.7); Neutrophil % 80.1 % (47-70); POSITIVE COUNT NO; POSITIVE DIFFERENTIAL NO; POSITIVE MORPHOLOGY NO; Platelet Count 315 K/mm3 (150-450); RBC Distribution Width CV 12.4 % (11.6-14.6); RBC Distribution Width SD 37.2 fl (35.1-43.9); Red Blood Count 4.83 M/mm3 (4.2-5.4); White Blood Count 10.2 K/mm3 (4.4-11.0)
[2018-09-03 22:49] LABS: ALB/GLOB Ratio 0.8 RATIO (0.9-2.4); AST(SGOT) 22 U/L (15-37); Alanine Aminotransfer ALT/SGPT 36 U/L (13-56); Albumin, Serum 3.5 g/dL (3.2-5.0); Alkaline Phosphatase 85 U/L (45-117); Anion Gap 6 (5-15); BUN 11 mg/dL (7-18); BUN/Creat Ratio 11.9 RATIO (10-20); Calcium,Total 9.1 mg/dL (8.5-10.1); Chloride 111 mmol/L (98-107); Creatinine, Serum 0.92 mg/dL (0.55-1.02); EST Glomerular Filtration Rate 74 mL/min (>60); Est Glom Filt Rate - Afr Amer 89 mL/min (>60); Globulin 4.2 g/dL (2.2-4.2); Glucose 102 mg/dL (74-106); Internal QC Validated? YES +Cl - CLEAR BKGD; Pregnancy, Serum, hCG Quali. NEGATIVE Negative; Protein, Total 7.7 g/dL (6.4-8.2); Sodium Level 141 mmol/L (136-145)
[2018-09-03 22:55] LABS: Lactic Acid 1.6 mmol/L (0.4-2.0)
[2018-09-03 22:58] VITALS: BP 133/87; PULSE 110; RESP 16; TEMP 35.1; O2SAT 95
[2018-09-03 23:01] LABS: Bacteria 0 SEEN /hpf (None Seen); Mucous, Urine 0 SEEN /hpf (<or=2+)
[2018-09-03] MEDS: 0.9% Normal Saline 1,000 ML 1000 ML IV (23:01)
[2018-09-03 23:06] VITALS: BP 134/95; PULSE 107; RESP 16; O2SAT 94
[2018-09-03 23:08] LABS: Color, Urine Yellow (Yellow); Glucose, Dipstick Normal (Normal); Ketone-Dipstick 5 mg/dl (Negative); Leukocyte Esterase-Dipstick 25 /ul (Negative); Nitrite-Dipstick Negative (Negative); Occult Blood-Urine 10 /ul (Negative); Protein-Dipstick 15 mg/dl (Negative); Specific Gravity, Urine 1.025 (1.002-1.030); Urine Bilirubin Dipstick Negative (Negative); Urine Clarity Sl. Cloudy (Clear); Urine Urobilinogen Normal (Normal)
[2018-09-03 23:10] LABS: Vista UDS pH Range 5
[2018-09-03 23:23] LABS: Amphetamine Urine VISTA NEGATIVE (<1000 ng/mL); Barbiturate Urine VISTA NEGATIVE (< 200 ng/mL); Benzodiazepine Urine VISTA POSITIVE (< 200 ng/mL); Cocaine Urine VISTA NEGATIVE (< 300 ng/mL); Ecstacy Urine VISTA NEGATIVE (< 500 ng/mL); Methadone Urine VISTA NEGATIVE (< 300 ng/mL); PCP Urine VISTA NEGATIVE (< 25 ng/mL); THC Urine VISTA NEGATIVE (< 50 ng/mL)
[2018-09-03 23:34] LABS: Red Blood Cells-Urine 0-5 SEEN /hpf (0-5); Squamous Epithelial Cells - UA 0-5 SEEN /hpf (5-10); White Blood Cells 0-5 SEEN /hpf (0-5)
[2018-09-03 23:35] LABS: Amorphous Sediment 1+ URATE
[2018-09-03 23:36] VITALS: BP 135/84; PULSE 110; RESP 16; TEMP 35.5; O2SAT 97
[2018-09-04] VITALS (32 sets, daily range): BP systolic 108–134; BP diastolic 58–90; PULSE 90–117; RESP 14–21; TEMP 35.1–37.4; O2SAT 96–100; BMI 52.7
--- NOTE | 2018-09-04 00:08 | ED.DCSUM_ITS ---
- ER Visit Summary Date of Service: 09/04/18 Chief Complaint: Change in mental status History of Present Illness: The patient is a 33 F with history of seizure disorder, bipolar disorder, and prior drug overdose presents to the emergency department change of mental status. The patient was brought in by squad. Apparently, police were called because she was in the street behaving abnormally. When EMS arrived on the scene, the patient started playing in a mud puddle. She then became unresponsive. She would withdraw to pain. She was responding to pain. She was initially speaking with EMS prior to coming unresponsive. Patient gives no history of baseline. Most history is gathered from the chart. Physical Examination: Patient is disoriented but responds to stimuli. She continues to try to remove the IV from her arm. She moves all 4 extremities. She would not answer questions appropriately. Head shows no evidence of trauma. Neck is nontender. Heart is with tachycardia. Lungs are clear without wheezes or rhonchi. Abdomen is soft and nontender. There is no evidence of external trauma. Test Results: [] Emergency Department Course and Treatment: My suspicion is that this may be psychiatric in nature. The patient was acting abnormally. When squad arrived, she then began to become unresponsive. She localizes and withdraws to pain. She does have purposeful movements, but will not answer questions. Broad metabolic work-up was pursued. Labs were obtained and were unremarkable. Her urine does show evidence of benzodiazepines, but the patient is on Xanax at baseline. Her tox is otherwise normal. Chest x-ray was unremarkable. The patient was observed. At this point, disposition is pending. I do feel the patient will require further time of observation to determine if this is psyc hiatric metabolic. Again, my suspicion is for psychiatric, but she will need a prolonged observation. Treatment Plan: [] Disposition: Pending Impression: 1. Change in mental status This note was generated with [employer] dictation software. It may contain incorrect words, spelling, and punctuation that were not noted in review of the chart prior to signing ED Disposition - Plan for ED Patient: Referrals: Abdirashid Vazquez DO [Primary Care Provider] -
--- NOTE | 2018-09-04 01:08 | ED.RN ---
DR JONES NOTIFIED OF SALICYLATE LEVEL
[2018-09-04 01:17] LABS: Acetaminophen (Tylenol) Level < 2.0 ug/mL (10.0-30.0); Salicylate 39.3 mg/dL (2.8-20.0)
[2018-09-04] MEDS: 0.9% Normal Saline 1,000 ML 1000 ML IV ×2 (02:06→03:03)
--- NOTE | 2018-09-04 03:58 | ED.RN ---
has a backpack in the security office per PD
[2018-09-04 05:06] LABS: Salicylate 42.3 mg/dL (2.8-20.0)
[2018-09-04 05:21] LABS: Bedside Glucose 103 mg/dL (70-110)
[2018-09-04 05:26] LABS: Base Excess -6 mmol/L (-2 to +2); Bicarbonate 19.6 mmol/L (22-26); Blood Gas Specimen Type ART; O2 Delivery Device Room Air; PO2 96 mmHG (75-100); SITE L Radial; SO2 97 % (95-99); Total Carbon Dioxide 21 mmol/L; pCO2 36.3 mmHg (35-45); pH 7.34 (7.35-7.45)
[2018-09-04 05:42] LABS: International Normalized Ratio 1.2; Partial Thromboplast Time 26.7 Seconds (24.1-36.2); Prothrombin Time (Protime)PT. 15.3 SECONDS (11.7-14.9)
[2018-09-04 05:43] LABS: Anion Gap 5 (5-15); BUN 10 mg/dL (7-18); BUN/Creat Ratio 12.6 RATIO (10-20); Chloride 116 mmol/L (98-107); Creatinine, Serum 0.79 mg/dL (0.55-1.02); EST Glomerular Filtration Rate 88 mL/min (>60); Est Glom Filt Rate - Afr Amer 106 mL/min (>60); Estimated Creatinine Clearance 85.83 ml/min; Glucose 109 mg/dL (74-106); Potassium 4.5 mmol/L (3.5-5.1); Sodium Level 146 mmol/L (136-145)
[2018-09-04] MEDS: Sodium Bicarbonate 8.4% 50 ML Syringe 100 MEQ IV (05:44)
--- NOTE | 2018-09-04 05:45 | HP.PCM_ITS ---
Problem List (1) Salicylate overdose Status: Acute Qualifiers: Encounter type: initial encounter (2) Unresponsive state Status: Acute (3) Suicidal behavior Status: Acute Qualifiers: Attempted self-injury: with attempted self-injury Qualified Code(s): T14.91XA - Suicide attempt, initial encounter (4) Encephalopathy acute Status: Acute (5) Hirsutism Status: Chronic (6) Polycystic ovarian syndrome Status: Chronic (7) Depression Status: Chronic Qualifiers: Depression Type: unspecified Qualified Code(s): F32.9 - Major depressive disorder, single episode, unspecified (8) Seizure Status: Chronic History of Present Illness Date of Admission: 09/04/18 Chief Complaint: Mental status change, found per police outside, playing in puddle. The patient is a 33 y/o F w/ PMHx: Bipolar Disorder, Prior Suicide Attempts, Seizure Disorder, Hirsutism, Polycystic ovarian syndrome, Morbid Obesity who presents to the [facility] ED on 09/04/18 with history of being found by the police, noted to be playing in mud pedals in the middle of the street falling which she eventually became unresponsive although would withdraw to pain, initially speaking with EMS but over time became less interactive and was disoriented. Patient did not tell EMS nor has she been able to give any information as to possible drug attempted overdose including salicylate. Work-up in the ED with initial vitals T 97, heart rate 139, BP 147/103, respiratory rate 24, 95% on room air--> T 95.4 with core temp, heart rate 94, BP 123/87, respiratory rate 14, 91% on room air, CBC with WC 10.2, hemoglobin 14, platelet 315 with left shift, coags with PT 15.3, INR 1.2, PTT 26.7, ABG with pH 7.34, bicarb 19.6 otherwise not severe appearing, initial CMP with chloride 111 otherwise not remarkable appearing, lactic acid 1.6, negative serum testing, repeat BMP with sodium 146, chloride 116, glucose 109, urinalysis with evidence of dehydration, salicylate initial level 39.3 with repeat 42.3, UDS with positive benzodiazepines, acetaminophen less than 2, ethyl alcohol 7, CT brain with no acute intracranial process with evidence of remote right craniotomy with underlying temporal encephalomalacia, initial chest x-ray with cardiomegaly with poor respiratory effort and questionable vascular crowding versus mild congestion, EKG with sinus tachycardia with no acute evidence of ischemia. In the ED patient initially administered Narcan, aggressive 3 L normal saline regimen as well as sodium bicarb 100 mEq IV x1 following repeat salicylate level noted to be further elevated. ED physician did discuss case with ICU physician Dr. Prater who is amenable to admitting patient to a screening hospital. Past Medical History Past Medical History (Chronic Problems): Chronic Problems (Last Reviewed 10/30/17 @ 11:41 by Emily Ortega) Hirsutism (Chronic) Polycystic ovarian syndrome (Chronic) Depression (Chronic) Seizure (Chronic) Medical History: Medical History (Last Reviewed 10/30/17 @ 11:41 by Emily Ortega) Anxiety and depression F41.8 History of hysteroscopy Z98.890 Allergies phenobarbital Allergy (Verified 01/02/18 22:29) Unknown Home Medications: Ambulatory Orders Medication Instructions Recorded levETIRAcetam tablet [Keppra 1,000 mg PO BREAKFAST 05/24/15 tablet] levETIRAcetam tablet [Keppra 500 mg PO QHS 11/12/15 tablet] Amitriptyline HCl 1 - 3 tab PO PRN PRN 12/12/16 Biotin 1 tab PO DAILY 09/06/17 Ferrous Sulfate [Iron] 1 tab PO TID 09/06/17 ALPRAZolam [Xanax] 2 mg PO TID PRN 09/08/17 Cephalexin [Keflex] 500 mg PO Q6 #40 cap 01/02/18 Smz/Tmp Ds [Bactrim Ds] 1 tab PO BID #14 tab 01/02/18 Surgical History: Surgical History (Last Reviewed 10/30/17 @ 11:41 by Emily Ortega) H/O dilation and curettage Z98.890 partial labotomy Surgical History: - - D&C, partial lobotomy. 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 Paternal Family History: Family History (Last Reviewed 10/30/17 @ 11:41 by Emily Ortega) Mother Heart disease History Items: Unknown - From charts no market history noted but unable to obtain secondary to patient decreased responsive status. Review of Systems Unable to obtain accurate/complete ROS d/t: Patient unable to give ROS secondary to decreased responsive status. VTE Information - Inpt Only VTE Present on Admission: No VTE Mechan Device Prophylaxis: SCD's VTE Pharm Prophylaxis ordered?: No Reason prophylaxis not ordered:: Medical Contraindication - Will hold on chemoprophylaxis pending repeat coags given salicylate overdose. Patient Problems: Active and Suspected Problems (Last Reviewed 10/30/17 @ 11:41 by Emily Ortega) Salicylate overdose (Acute) Encephalopathy acute (Acute) Subjective: Laying upright in ED bed, lethargic, minimally responsive to stimuli Objective: Physical Examination: General: Lethargic, gets only to aggressive stimuli, not alert, not able to answer any orientation questions, seated upright laying in the ED bed, currently no acute distress. Skin: normal color, turgor, no icterus, cyanosis. HEENT: AT/NC, EOM unable to be assessed, notable facial hair, PERRLA, dry MM, no carotid bruits or JVD noted; poor, thickened neck makes examination difficult. Lungs: Diminished breath sounds throughout, greater bilateral bases, snoring intermittently, no rales, ronchi or wheezing. Heart: Currently regular rate and rhythm; no gallop, rub audible. Abdomen: soft, morbidly obese, NTTP (no grimace elicited with deep palpation), is not appear distended although difficult given morbidly obese habitus to discern, distant normal sounding BS, no HSM;, habitus makes examination difficult. Extremities: no cyanosis, clubbing, or edema. Neurological: Lethargic, gets only to aggressive stimuli, not alert, not able to answer any orientation questions, seated upright laying in the ED bed, currently no acute distress; cognitive function not baseline intact; pupils equally reactive to light and accomodation although sluggish, not pinpoint, ~3 mm BL; cranial nerves unable to be assess secondary to acute presentation, not interactive, moves extremities to painful stimuli. Psychiatric: affect appears flat, lethargic, no acute evidence of depressive or anxiety feelings. - Physical Exam Vital Signs Temp Pulse Resp BP Pulse Ox 95.4 F L 94 14 123/87 H 99 09/04/18 05:00 09/04/18 05:00 09/04/18 05:00 09/04/18 05:00 09/04/18 05:00 Oxygen Delivery Method Room Air Weight: 320 lb 15.889 oz Body Mass Index (BMI) 55.0 Finger Stick Blood Glucose 105 Intake and Output for Last 24 Hours 09/02/18 09/03/18 09/04/18 23:59 23:59 23:59 Output Total 2200 / 2200 Balance -2200 / -2200 Laboratory Tests Past 24 Hrs 09/03/18 09/03/18 09/03/18 22:18 22:18 22:18 WBC 10.2 RBC 4.83 Hgb 14.0 Hct 40.6 MCV 84.1 MCH 29.0 MCHC 34.5 RDW 12.4 RDW Differential 37.2 Plt Count 315 MPV 9.5 Immature Gran % (Auto) 0.400 Neut % (Auto) 80.1 H Lymph % (Auto) 13.3 L Jackson % (Auto) 5.9 Eos % (Auto) 0.0 Baso % (Auto) 0.3 Absolute Neuts (auto) 8.2 H Absolute Lymphs (auto) 1.35 Total Counted Not Reportable PT INR APTT Specimen Type Sample Site pH Bicarbonate Actual POC Total CO2 Base Excess O2 Saturation ABG pCO2 ABG pO2 Gage Test O2 Delivery Device Blood Gas Notified Whom Sodium 141 Potassium 4.0 Chloride 111 H Carbon Dioxide 24.0 Anion Gap 6 BUN 11 Creatinine 0.92 Estim Creat Clear Calc 73.70 Est GFR (MDRD) Af Amer 89 Est GFR (MDRD) Non-Af 74 BUN/Creatinine Ratio 11.9 Glucose 102 Lactic Acid 1.6 Calcium 9.1 Total Bilirubin 0.20 AST 22 ALT 36 Alkaline Phosphatase 85 Total Creatine Kinase Total Protein 7.7 Albumin 3.5 Globulin 4.2 Albumin/Globulin Ratio 0.8 L Serum , Qual Urine Color Urine Clarity Urine pH Ur Specific [place] Urine Protein Urine Glucose (UA) Urine Ketones Urine Occult Blood Urine Nitrite Urine Bilirubin Urine Urobilinogen Ur Leukocyte Esterase Urine RBC Urine WBC Ur Squamous Epith Cells Amorphous Sediment Urine Bacteria Urine Mucus Salicylates Urine Opiates Screen Urine Methadone Screen Acetaminophen Ur Barbiturates Screen Ur Phencyclidine Scrn Ur Amphetamines Screen U Methamphetamin-MDMA U Benzodiazepines Scrn Urine Cocaine Screen U Cannabinoids Screen Ur Drug Screen Comment Ethyl Alcohol 09/03/18 09/03/18 09/03/18 22:18 22:24 22:24 WBC RBC Hgb Hct MCV MCH MCHC RDW RDW Differential Plt Count MPV Immature Gran % (Auto) Neut % (Auto) Lymph % (Auto) Jackson % (Auto) Eos % (Auto) Baso % (Auto) Absolute Neuts (auto) Absolute Lymphs (auto) Total Counted PT INR APTT Specimen Type Sample Site pH Bicarbonate Actual POC Total CO2 Base Excess O2 Saturation ABG pCO2 ABG pO2 Gage Test O2 Delivery Device Blood Gas Notified Whom Sodium Potassium Chloride Carbon Dioxide Anion Gap BUN Creatinine Estim Creat Clear Calc Est GFR (MDRD) Af Amer Est GFR (MDRD) Non-Af BUN/Creatinine Ratio Glucose Lactic Acid Calcium Total Bilirubin AST ALT Alkaline Phosphatase Total Creatine Kinase Total Protein Albumin Globulin Albumin/Globulin Ratio Serum , Qual NEGATIVE Urine Color Urine Clarity Urine pH Ur Specific [place] Urine Protein Urine Glucose (UA) Urine Ketones Urine Occult Blood Urine Nitrite Urine Bilirubin Urine Urobilinogen Ur Leukocyte Esterase Urine RBC Urine WBC Ur Squamous Epith Cells Amorphous Sediment Urine Bacteria Urine Mucus Salicylates 39.3 H* Urine Opiates Screen Urine Methadone Screen Acetaminophen < 2.0 L Ur Barbiturates Screen Ur Phencyclidine Scrn Ur Amphetamines Screen U Methamphetamin-MDMA U Benzodiazepines Scrn Urine Cocaine Screen U Cannabinoids Screen Ur Drug Screen Comment Ethyl Alcohol 7.0 09/03/18 09/03/18 09/04/18 22:55 22:55 04:25 WBC RBC Hgb Hct MCV MCH MCHC RDW RDW Differential Plt Count MPV Immature Gran % (Auto) Neut % (Auto) Lymph % (Auto) Jackson % (Auto) Eos % (Auto) Baso % (Auto) Absolute Neuts (auto) Absolute Lymphs (auto) Total Counted PT INR APTT Specimen Type Sample Site pH Bicarbonate Actual POC Total CO2 Base Excess O2 Saturation ABG pCO2 ABG pO2 Gage Test O2 Delivery Device Blood Gas Notified Whom Sodium Potassium Chloride Carbon Dioxide Anion Gap BUN Creatinine Estim Creat Clear Calc Est GFR (MDRD) Af Amer Est GFR (MDRD) Non-Af BUN/Creatinine Ratio Glucose Lactic Acid Calcium Total Bilirubin AST ALT Alkaline Phosphatase Total Creatine Kinase Total Protein Albumin Globulin Albumin/Globulin Ratio Serum , Qual Urine Color Yellow Urine Clarity Sl. Cloudy Urine pH 5.0 Ur Specific [place] 1.025 Urine Protein 15 H Urine Glucose (UA) Normal Urine Ketones 5 H Urine Occult Blood 10 H Urine Nitrite Negative Urine Bilirubin Negative Urine Urobilinogen Normal Ur Leukocyte Esterase 25 H Urine RBC 0-5 SEEN Urine WBC 0-5 SEEN Ur Squamous Epith Cells 0-5 SEEN Amorphous Sediment 1+ URATE Urine Bacteria 0 SEEN Urine Mucus 0 SEEN Salicylates 42.3 H* Urine Opiates Screen NEGATIVE Urine Methadone Screen NEGATIVE Acetaminophen Ur Barbiturates Screen NEGATIVE Ur Phencyclidine Scrn NEGATIVE Ur Amphetamines Screen NEGATIVE U Methamphetamin-MDMA NEGATIVE U Benzodiazepines Scrn POSITIVE H Urine Cocaine Screen NEGATIVE U Cannabinoids Screen NEGATIVE Ur Drug Screen Comment Ethyl Alcohol 09/04/18 09/04/18 09/04/18 05:12 05:12 05:12 WBC RBC Hgb Hct MCV MCH MCHC RDW RDW Differential Plt Count MPV Immature Gran % (Auto) Neut % (Auto) Lymph % (Auto) Jackson % (Auto) Eos % (Auto) Baso % (Auto) Absolute Neuts (auto) Absolute Lymphs (auto) Total Counted PT 15.3 H INR 1.2 APTT 26.7 Specimen Type Sample Site pH Bicarbonate Actual POC Total CO2 Base Excess O2 Saturation ABG pCO2 ABG pO2 Gage Test O2 Delivery Device Blood Gas Notified Whom Sodium 146 H Potassium 4.5 Chloride 116 H Carbon Dioxide 25.0 Anion Gap 5 BUN 10 Creatinine 0.79 Estim Creat Clear Calc 85.83 Est GFR (MDRD) Af Amer 106 Est GFR (MDRD) Non-Af 88 BUN/Creatinine Ratio 12.6 Glucose 109 H Lactic Acid Calcium 8.0 L Total Bilirubin AST ALT Alkaline Phosphatase Total Creatine Kinase Pending Total Protein Albumin Globulin Albumin/Globulin Ratio Serum , Qual Urine Color Urine Clarity Urine pH Ur Specific [place] Urine Protein Urine Glucose (UA) Urine Ketones Urine Occult Blood Urine Nitrite Urine Bilirubin Urine Urobilinogen Ur Leukocyte Esterase Urine RBC Urine WBC Ur Squamous Epith Cells Amorphous Sediment Urine Bacteria Urine Mucus Salicylates Urine Opiates Screen Urine Methadone Screen Acetaminophen Ur Barbiturates Screen Ur Phencyclidine Scrn Ur Amphetamines Screen U Methamphetamin-MDMA U Benzodiazepines Scrn Urine Cocaine Screen U Cannabinoids Screen Ur Drug Screen Comment Ethyl Alcohol 09/04/18 05:22 WBC RBC Hgb Hct MCV MCH MCHC RDW RDW Differential Plt Count MPV Immature Gran % (Auto) Neut % (Auto) Lymph % (Auto) Jackson % (Auto) Eos % (Auto) Baso % (Auto) Absolute Neuts (auto) Absolute Lymphs (auto) Total Counted PT INR APTT Specimen Type ART Sample Site L Radial pH 7.34 L Bicarbonate Actual 19.6 L POC Total CO2 21 Base Excess -6 L O2 Saturation 97 ABG pCO2 36.3 ABG pO2 96 Gage Test NA O2 Delivery Device Room Air Blood Gas Notified Whom ED Sodium Potassium Chloride Carbon Dioxide Anion Gap BUN Creatinine Estim Creat Clear Calc Est GFR (MDRD) Af Amer Est GFR (MDRD) Non-Af BUN/Creatinine Ratio Glucose Lactic Acid Calcium Total Bilirubin AST ALT Alkaline Phosphatase Total Creatine Kinase Total Protein Albumin Globulin Albumin/Globulin Ratio Serum , Qual Urine Color Urine Clarity Urine pH Ur Specific [place] Urine Protein Urine Glucose (UA) Urine Ketones Urine Occult Blood Urine Nitrite Urine Bilirubin Urine Urobilinogen Ur Leukocyte Esterase Urine RBC Urine WBC Ur Squamous Epith Cells Amorphous Sediment Urine Bacteria Urine Mucus Salicylates Urine Opiates Screen Urine Methadone Screen Acetaminophen Ur Barbiturates Screen Ur Phencyclidine Scrn Ur Amphetamines Screen U Methamphetamin-MDMA U Benzodiazepines Scrn Urine Cocaine Screen U Cannabinoids Screen Ur Drug Screen Comment Ethyl Alcohol POC Glucose 09/04/18 05:14 POC Glucose 103 Assessment/Plan All Active Problems (Last Reviewed 10/30/17 @ 11:41 by Emily Ortega) Salicylate overdose (Acute) Encephalopathy acute (Acute) Abnormal uterine bleeding (Acute) Suicidal behavior (Acute) Unresponsive state (Acute) The patient is a 33 y/o F w/ PMHx: Bipolar Disorder, Prior Suicide Attempts, Seizure Disorder, Hirsutism, Polycystic ovarian syndrome, Morbid Obesity who presents to the [facility] ED on 09/04/18 with history of being found by the police, noted to be playing in mud pedals in the middle of the street falling which she eventually became unresponsive although would withdraw to pain, initially speaking with EMS but over time became less interactive and was disoriented. Kar meyers did not tell EMS nor has she been able to give any information as to possible drug attempted overdose including salicylate. Salicylate Poisoning/ASA overdose, Possible Suicide Attempt: Will admit to the ICU w/ Intensivitist consultation. Will closely monitor for cellular and systemic effects of ASA OD including plt dysfunction, bleeding, nausea and emesis as well as diarrhea, hyperventilation and respiratory alkalosis in addition to metabolic acidosis. Will monitor I/Os, obtain serial CMP and CBC, maintain on telemetry given risk of arrhythmia, continue aggressively hydrating given risk of fluid losses, closely monitor I/Os, will continue to measure salicylate levels q 2 hours until level decreases < 40 mg/dL, asymptomatic and respiratory rate remains appropriate with expectation that levels may continue to rise until 5-6 hours following ingestion and can occur even further out up to >24 hours, will obtain ABG q 2 hours and administer additional bicarb as needed, maintain on IV famotidine, obtain stat CXR for any dyspnea complaint or desaturation given possibility of development of pulmonary edema, monitor closely respiratory rate and depth, monitor for hyperthermia although currently presentation w/ hypothermia, likely secondary to exposure thus will continue warming fluids and hugger for now; however, if becomes hyperthermic would transition to cooling fluids/blankets if appropriate. Will maintain on aspiration, fall and seizure precautions. Patient administered bicarb 2 amp in the ED to attempt to increase the systemic pH as needed with sodium bicarbonate to reduce the diffusion of the salicylate anions and may consider additional. If the salicylate level continues to rise would plan to consult Nephrology for emergency HD given increased risk of morbidity and mortality. Additionally, will obtain q 2 hour glucose levels and supplement w/ IV dextrose as needed although currently has not been hypoglycemic. ICU consulted, pending. (2) Bipolar disorder with prior suicide attempts: Unclear home regimen, given acute presentation holding, crisis will need to be consulted once medically appropriate. (3) Seizure Disorder: Unclear last dosing of her Keppra, will transition to IV regimen given acute presentation. (4) Morbid Obesity: Weight loss and lifestyle changes encouraged, nutrition consulted. (5) Fe Deficiency Anemia: Admission Hgb normal, unclear if on regimen, trend CBC. (6) GERD: Famotidine IV. (7) DVT Prophylaxis: SCDs, will hold on addition of chemoprophylaxis given salicylate overdose pending repeat coags. Critical Care Time: 71 minutes, time from 5:00-6:11, were spent addressing patients acute presentation with salicylate overdose, review of all data in collaboration with care team in addition to discussion with ICU staff. Code Visit Procedures: 25586 Critial Care 1st Hr
[2018-09-04 06:41] LABS: CPK Total, Creatine Kinase 41 U/L (26-192)
--- NOTE | 2018-09-04 07:01 | ED.RN ---
FLOOR WAS NOT READY TO TAKE REPORT OVER THE PHONE, WILL GIVE A VERBAL REPORT ON THE FLOOR.
--- NOTE | 2018-09-04 07:28 | PCM.PN.BLA ---
Progress Note Patient was seen and examined. She was lethargic the whole morning. When patient was reevaluated in the afternoon, she appears sleepy, was able to respond to questions. She complains of feeling depressed. She admits to having episodes of suicide ideation. She still has plans of killing herself but thinks she cannot use anything around her on the moment. She says a lot of things are going on in her life and that is contributing to this suicidal ideation. She admits that she took a lot of sleeping pills and when pushed she admitted to using aspirin. She says she used what ever was left in the bottle. She complains of having dry mouth. Vitals have been stable. Physical exam: GEN:Lethargic, not pale or juandiced, dry oral mucosa CVS:HS I +II, regular, no murmurs RESP:CTA ABD:BS present and normal, soft, nontender EXT: No edema Labs: Serial BMPs have been unremarkable. A/P: 1. Salicylate toxicity 2. Xanax overdose 3. Suicidal ideation/attempt 4. Bipolar disorder Maintain sitter Continue monitoring in the ICU Crisis consult.
--- NOTE | 2018-09-04 07:38 | ED.RN ---
gave report bedside
[2018-09-04] MEDS: 0.9% Normal Saline 1,000 ML 150 ML IV ×3 (08:13→22:12)
[2018-09-04 08:30] LABS: ALB/GLOB Ratio 0.8 RATIO (0.9-2.4); AST(SGOT) 17 U/L (15-37); Alanine Aminotransfer ALT/SGPT 30 U/L (13-56); Alkaline Phosphatase 70 U/L (45-117); Anion Gap 5 (5-15); BUN 10 mg/dL (7-18); BUN/Creat Ratio 13.7 RATIO (10-20); Calcium,Total 8.1 mg/dL (8.5-10.1); Chloride 116 mmol/L (98-107); Creatinine, Serum 0.73 mg/dL (0.55-1.02); EST Glomerular Filtration Rate 96 mL/min (>60); Est Glom Filt Rate - Afr Amer 116 mL/min (>60); Estimated Creatinine Clearance 92.88 ml/min; Globulin 3.7 g/dL (2.2-4.2); Glucose 105 mg/dL (74-106); Magnesium 2.1 mg/dL (1.6-2.6); Phosphorus 3.6 mg/dL (2.5-4.9); Potassium 3.7 mmol/L (3.5-5.1); Protein, Total 6.7 g/dL (6.4-8.2); Sodium Level 145 mmol/L (136-145)
[2018-09-04 08:51] LABS: Bedside Glucose 104 mg/dL (70-110)
[2018-09-04 09:06] LABS: Salicylate 39.6 mg/dL (2.8-20.0)
--- NOTE | 2018-09-04 09:50 | CASEMGMT ---
Addendum entered by Dalia Velazquez 09/04/18 10:50: Received med list from [facility]. SW gave this to patient's RN. SW also gave the patient's dad's number to physician. Dalia HEMPHILL Original Note: SW reviewed chart and patient's dad was listed in notes. His name is Ad and his phone number is [phone]. It also indicated she was active with [facility]. SW called [facility] and patient is still considered active, but they have not seen her since 2017 other than a crisis eval in ED. SW called [facility] as this is listed as her pharmacy. They will fax her med list. SW will pass along this information to patient's RN. Dalia HEMPHILL
[2018-09-04] MEDS: levETIRAcetam IV 100 ML 400 MG IV (10:13)
--- NOTE | 2018-09-04 10:26 | PCM.CON.CC ---
Problem List (1) Salicylate overdose Status: Acute Qualifiers: Encounter type: initial encounter (2) Encephalopathy acute Status: Acute (3) Hirsutism Status: Chronic (4) Polycystic ovarian syndrome Status: Chronic (5) Depression Status: Chronic Qualifiers: Depression Type: unspecified Qualified Code(s): F32.9 - Major depressive disorder, single episode, unspecified (6) Suicidal behavior Status: Acute Qualifiers: Attempted self-injury: with attempted self-injury Qualified Code(s): T14.91XA - Suicide attempt, initial encounter (7) Seizure Status: Chronic (8) Unresponsive state Status: Acute Reason for Consult Date of Consultation: 09/04/18 Reason for Consultation: Salicylate overdose History of Present Illness: The patient is a 33 year old F, with past medical history listed below, who presented with [facility] on 09/04/2018 secondary to change in mental status. Patient was reportedly brought in by squad after please were called secondary to abnormal behavior in the street. Patient reportedly had been playing in a mud puddle and then became unresponsive. Patient was responsive to pain, but not following directions. Patient was transported to the ER for further evaluation. In the ER, patient continued to have minimal responsiveness. Patient was localizing and withdrawing to pain, but not having many purposeful movements. Patient's urine toxicity did show benzodiazepines, but patient is prescribed Xanax at baseline. Patient was unable to provide any additional history. Patient reportedly has presented in a similar fashion in the past. Scan of the head was grossly unchanged compared to previous. Laboratory work-up did show a salicylate level that was elevated at 42. Patient was given 2 A of bicarb and admitted to the intensive care unit for further observation. On arrival to the intensive care unit, patient will open her eyes and respond to noxious stimulus. Otherwise, patient is not very responsive. Patient is protecting her airway and no stridor or paradoxical respiratory movements have been noted. Unable to obtain a review of systems. Social work is attempting to contact father to establish last known well. Past Medical History Past Medical History (Chronic Problems): Chronic Problems (Last Reviewed 10/30/17 @ 11:41 by Emily Ortega) Hirsutism (Chronic) Polycystic ovarian syndrome (Chronic) Depression (Chronic) Seizure (Chronic) Medical History: Medical History (Last Reviewed 10/30/17 @ 11:41 by Emily Ortega) Anxiety and depression F41.8 History of hysteroscopy Z98.890 Allergies phenobarbital Allergy (Verified 01/02/18 22:29) Unknown Home Medications: Ambulatory Orders Medication Instructions Recorded levETIRAcetam tablet [Keppra 1,000 mg PO BREAKFAST 05/24/15 tablet] levETIRAcetam tablet [Keppra 500 mg PO QHS 11/12/15 tablet] Amitriptyline HCl 1 - 3 tab PO PRN PRN 12/12/16 Biotin 1 tab PO DAILY 09/06/17 Ferrous Sulfate [Iron] 1 tab PO TID 09/06/17 ALPRAZolam [Xanax] 2 mg PO TID PRN 09/08/17 Cephalexin [Keflex] 500 mg PO Q6 #40 cap 01/02/18 Smz/Tmp Ds [Bactrim Ds] 1 tab PO BID #14 tab 01/02/18 Surgical History: Surgical History (Last Reviewed 10/30/17 @ 11:41 by Emily Ortega) H/O dilation and curettage Z98.890 partial labotomy Surgical History: - - D&C, partial lobotomy. 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 Paternal Family History: Family History (Last Reviewed 10/30/17 @ 11:41 by Emily Ortega) Mother Heart disease History Items: Unknown - From charts no market history noted but unable to obtain secondary to patient decreased responsive status. Review of Systems Unable to obtain accurate/complete ROS d/t: Current mental status Patient Problems: Active and Suspected Problems (Last Reviewed 10/30/17 @ 11:41 by Emily Ortega) Salicylate overdose (Acute) Encephalopathy acute (Acute) Objective: All imaging was personally reviewed. Agree with formal interpretation. Patient does not have any history of echocardiogram or PFT in the electronic medical record. Patient has been seen by neurology back in 2016 - Physical Exam General: No apparent distress, - - Hirsutism. Morbidly obese. Not following commands. HEENT: Atraumatic, PERRLA, EOMI, Normocephalic, - - Slight scleral injection without icterus Oral: No Gingival or Mucosal Lesions/ Ulcerations, Dry Mucosa Neck: Supple, No JVD, No Nodes, Trachea Midline Lungs: Clear to auscultation, Normal air movement, No rhonchi, No wheeze, No rales Cardiovascular: Regular rate, Regular Rhythm, Normal S1, Normal S2, No murmurs, No rub noted, No Gallop Abdomen: Bowel Sounds Present, Soft, Non Tender, Non-Distended, Obese Extremities: No clubbing, No cyanosis, Edema - 1+ lower extremity edema Skin: No rashes, No breakdown Musculoskeletal: No Tenderness to Palpation of Joints or Extremities Lymphatic: No Cervical, Supraclavicular, or Inguinal Adenopathy Neurological: Cranial nerves II-XII grossly intact, - - Localizes noxious stimulus appropriately. Cough and gag are intact. Psych/Mental Status: Flat Affect Vital Signs Temp Pulse Resp BP Pulse Ox 36.3 C L 97 15 127/85 H 98 09/04/18 09:00 09/04/18 09:30 09/04/18 09:30 09/04/18 09:30 09/04/18 09:30 Oxygen Delivery Method Room Air Weight: 140 kg Body Mass Index (BMI) 52.7 Finger Stick Blood Glucose 105 Intake and Output for Last 24 Hours 09/02/18 09/03/18 09/04/18 23:59 23:59 23:59 Output Total 2200 / 2200 Balance -2200 / -2200 Laboratory Tests Past 24 Hrs 09/03/18 09/03/18 09/03/18 22:18 22:18 22:18 WBC 10.2 RBC 4.83 Hgb 14.0 Hct 40.6 MCV 84.1 MCH 29.0 MCHC 34.5 RDW 12.4 RDW Differential 37.2 Plt Count 315 MPV 9.5 Immature Gran % (Auto) 0.400 Neut % (Auto) 80.1 H Lymph % (Auto) 13.3 L [place] % (Auto) 5.9 Eos % (Auto) 0.0 Baso % (Auto) 0.3 Absolute Neuts (auto) 8.2 H Absolute Lymphs (auto) 1.35 Total Counted Not Reportable PT INR APTT Specimen Type Sample Site pH Bicarbonate Actual POC Total CO2 Base Excess O2 Saturation ABG pCO2 ABG pO2 Gage Test O2 Delivery Device Blood Gas Notified Whom Sodium 141 Potassium 4.0 Chloride 111 H Carbon Dioxide 24.0 Anion Gap 6 BUN 11 Creatinine 0.92 Estim Creat Clear Calc 73.70 Est GFR (MDRD) Af Amer 89 Est GFR (MDRD) Non-Af 74 BUN/Creatinine Ratio 11.9 Glucose 102 Lactic Acid 1.6 Calcium 9.1 Phosphorus Magnesium Total Bilirubin 0.20 AST 22 ALT 36 Alkaline Phosphatase 85 Ammonia Total Creatine Kinase Total Protein 7.7 Albumin 3.5 Globulin 4.2 Albumin/Globulin Ratio 0.8 L Serum , Qual Urine Color Urine Clarity Urine pH Ur Specific [place] Urine Protein Urine Glucose (UA) Urine Ketones Urine Occult Blood Urine Nitrite Urine Bilirubin Urine Urobilinogen Ur Leukocyte Esterase Urine RBC Urine WBC Ur Squamous Epith Cells Amorphous Sediment Urine Bacteria Urine Mucus Salicylates Urine Opiates Screen Urine Methadone Screen Acetaminophen Ur Barbiturates Screen Ur Phencyclidine Scrn Ur Amphetamines Screen U Methamphetamin-MDMA U Benzodiazepines Scrn Urine Cocaine Screen U Cannabinoids Screen Ur Drug Screen Comment Ethyl Alcohol 09/03/18 09/03/18 09/03/18 22:18 22:24 22:24 WBC RBC Hgb Hct MCV MCH MCHC RDW RDW Differential Plt Count MPV Immature Gran % (Auto) Neut % (Auto) Lymph % (Auto) [place] % (Auto) Eos % (Auto) Baso % (Auto) Absolute Neuts (auto) Absolute Lymphs (auto) Total Counted PT INR APTT Specimen Type Sample Site pH Bicarbonate Actual POC Total CO2 Base Excess O2 Saturation ABG pCO2 ABG pO2 Gage Test O2 Delivery Device Blood Gas Notified Whom Sodium Potassium Chloride Carbon Dioxide Anion Gap BUN Creatinine Estim Creat Clear Calc Est GFR (MDRD) Af Amer Est GFR (MDRD) Non-Af BUN/Creatinine Ratio Glucose Lactic Acid Calcium Phosphorus Magnesium Total Bilirubin AST ALT Alkaline Phosphatase Ammonia Total Creatine Kinase Total Protein Albumin Globulin Albumin/Globulin Ratio Serum , Qual NEGATIVE Urine Color Urine Clarity Urine pH Ur Specific [place] Urine Protein Urine Glucose (UA) Urine Ketones Urine Occult Blood Urine Nitrite Urine Bilirubin Urine Urobilinogen Ur Leukocyte Esterase Urine RBC Urine WBC Ur Squamous Epith Cells Amorphous Sediment Urine Bacteria Urine Mucus Salicylates 39.3 H* Urine Opiates Screen Urine Methadone Screen Acetaminophen < 2.0 L Ur Barbiturates Screen Ur Phencyclidine Scrn Ur Amphetamines Screen U Methamphetamin-MDMA U Benzodiazepines Scrn Urine Cocaine Screen U Cannabinoids Screen Ur Drug Screen Comment Ethyl Alcohol 7.0 09/03/18 09/03/18 09/04/18 22:55 22:55 04:25 WBC RBC Hgb Hct MCV MCH MCHC RDW RDW Differential Plt Count MPV Immature Gran % (Auto) Neut % (Auto) Lymph % (Auto) [place] % (Auto) Eos % (Auto) Baso % (Auto) Absolute Neuts (auto) Absolute Lymphs (auto) Total Counted PT INR APTT Specimen Type Sample Site pH Bicarbonate Actual POC Total CO2 Base Excess O2 Saturation ABG pCO2 ABG pO2 Gage Test O2 Delivery Device Blood Gas Notified Whom Sodium Potassium Chloride Carbon Dioxide Anion Gap BUN Creatinine Estim Creat Clear Calc Est GFR (MDRD) Af Amer Est GFR (MDRD) Non-Af BUN/Creatinine Ratio Glucose Lactic Acid Calcium Phosphorus Magnesium Total Bilirubin AST ALT Alkaline Phosphatase Ammonia Total Creatine Kinase Total Protein Albumin Globulin Albumin/Globulin Ratio Serum , Qual Urine Color Yellow Urine Clarity Sl. Cloudy Urine pH 5.0 Ur Specific [place] 1.025 Urine Protein 15 H Urine Glucose (UA) Normal Urine Ketones 5 H Urine Occult Blood 10 H Urine Nitrite Negative Urine Bilirubin Negative Urine Urobilinogen Normal Ur Leukocyte Esterase 25 H Urine RBC 0-5 SEEN Urine WBC 0-5 SEEN Ur Squamous Epith Cells 0-5 SEEN Amorphous Sediment 1+ URATE Urine Bacteria 0 SEEN Urine Mucus 0 SEEN Salicylates 42.3 H* Urine Opiates Screen NEGATIVE Urine Methadone Screen NEGATIVE Acetaminophen Ur Barbiturates Screen NEGATIVE Ur Phencyclidine Scrn NEGATIVE Ur Amphetamines Screen NEGATIVE U Methamphetamin-MDMA NEGATIVE U Benzodiazepines Scrn POSITIVE H Urine Cocaine Screen NEGATIVE U Cannabinoids Screen NEGATIVE Ur Drug Screen Comment Ethyl Alcohol 09/04/18 09/04/18 09/04/18 05:12 05:12 05:12 WBC RBC Hgb Hct MCV MCH MCHC RDW RDW Differential Plt Count MPV Immature Gran % (Auto) Neut % (Auto) Lymph % (Auto) [place] % (Auto) Eos % (Auto) Baso % (Auto) Absolute Neuts (auto) Absolute Lymphs (auto) Total Counted PT 15.3 H INR 1.2 APTT 26.7 Specimen Type Sample Site pH Bicarbonate Actual POC Total CO2 Base Excess O2 Saturation ABG pCO2 ABG pO2 Gage Test O2 Delivery Device Blood Gas Notified Whom Sodium 146 H Potassium 4.5 Chloride 116 H Carbon Dioxide 25.0 Anion Gap 5 BUN 10 Creatinine 0.79 Estim Creat Clear Calc 85.83 Est GFR (MDRD) Af Amer 106 Est GFR (MDRD) Non-Af 88 BUN/Creatinine Ratio 12.6 Glucose 109 H Lactic Acid Calcium 8.0 L Phosphorus Magnesium Total Bilirubin AST ALT Alkaline Phosphatase Ammonia Total Creatine Kinase 41 Total Protein Albumin Globulin Albumin/Globulin Ratio Serum , Qual Urine Color Urine Clarity Urine pH Ur Specific [place] Urine Protein Urine Glucose (UA) Urine Ketones Urine Occult Blood Urine Nitrite Urine Bilirubin Urine Urobilinogen Ur Leukocyte Esterase Urine RBC Urine WBC Ur Squamous Epith Cells Amorphous Sediment Urine Bacteria Urine Mucus Salicylates Urine Opiates Screen Urine Methadone Screen Acetaminophen Ur Barbiturates Screen Ur Phencyclidine Scrn Ur Amphetamines Screen U Methamphetamin-MDMA U Benzodiazepines Scrn Urine Cocaine Screen U Cannabinoids Screen Ur Drug Screen Comment Ethyl Alcohol 09/04/18 09/04/18 09/04/18 05:22 08:05 08:05 WBC RBC Hgb Hct MCV MCH MCHC RDW RDW Differential Plt Count MPV Immature Gran % (Auto) Neut % (Auto) Lymph % (Auto) [place] % (Auto) Eos % (Auto) Baso % (Auto) Absolute Neuts (auto) Absolute Lymphs (auto) Total Counted PT INR APTT Specimen Type ART Sample Site L Radial pH 7.34 L Bicarbonate Actual 19.6 L POC Total CO2 21 Base Excess -6 L O2 Saturation 97 ABG pCO2 36.3 ABG pO2 96 Gage Test NA O2 Delivery Device Room Air Blood Gas Notified Whom ED Sodium 145 Potassium 3.7 Chloride 116 H Carbon Dioxide 24.0 Anion Gap 5 BUN 10 Creatinine 0.73 Estim Creat Clear Calc 92.88 Est GFR (MDRD) Af Amer 116 Est GFR (MDRD) Non-Af 96 BUN/Creatinine Ratio 13.7 Glucose 105 Lactic Acid Calcium 8.1 L Phosphorus 3.6 Magnesium 2.1 Total Bilirubin 0.20 AST 17 ALT 30 Alkaline Phosphatase 70 Ammonia Total Creatine Kinase Total Protein 6.7 Albumin 3.0 L Globulin 3.7 Albumin/Globulin Ratio 0.8 L Serum , Qual Urine Color Urine Clarity Urine pH Ur Specific [place] Urine Protein Urine Glucose (UA) Urine Ketones Urine Occult Blood Urine Nitrite Urine Bilirubin Urine Urobilinogen Ur Leukocyte Esterase Urine RBC Urine WBC Ur Squamous Epith Cells Amorphous Sediment Urine Bacteria Urine Mucus Salicylates 39.6 H* Urine Opiates Screen Urine Methadone Screen Acetaminophen Ur Barbiturates Screen Ur Phencyclidine Scrn Ur Amphetamines Screen U Methamphetamin-MDMA U Benzodiazepines Scrn Urine Cocaine Screen U Cannabinoids Screen Ur Drug Screen Comment Ethyl Alcohol 09/04/18 08:35 WBC RBC Hgb Hct MCV MCH MCHC RDW RDW Differential Plt Count MPV Immature Gran % (Auto) Neut % (Auto) Lymph % (Auto) [place] % (Auto) Eos % (Auto) Baso % (Auto) Absolute Neuts (auto) Absolute Lymphs (auto) Total Counted PT INR APTT Specimen Type Sample Site pH Bicarbonate Actual POC Total CO2 Base Excess O2 Saturation ABG pCO2 ABG pO2 Gage Test O2 Delivery Device Blood Gas Notified Whom Sodium Potassium Chloride Carbon Dioxide Anion Gap BUN Creatinine Estim Creat Clear Calc Est GFR (MDRD) Af Amer Est GFR (MDRD) Non-Af BUN/Creatinine Ratio Glucose Lactic Acid Calcium Phosphorus Magnesium Total Bilirubin AST ALT Alkaline Phosphatase Ammonia 17.0 Total Creatine Kinase Total Protein Albumin Globulin Albumin/Globulin Ratio Serum , Qual Urine Color Urine Clarity Urine pH Ur Specific [place] Urine Protein Urine Glucose (UA) Urine Ketones Urine Occult Blood Urine Nitrite Urine Bilirubin Urine Urobilinogen Ur Leukocyte Esterase Urine RBC Urine WBC Ur Squamous Epith Cells Amorphous Sediment Urine Bacteria Urine Mucus Salicylates Urine Opiates Screen Urine Methadone Screen Acetaminophen Ur Barbiturates Screen Ur Phencyclidine Scrn Ur Amphetamines Screen U Methamphetamin-MDMA U Benzodiazepines Scrn Urine Cocaine Screen U Cannabinoids Screen Ur Drug Screen Comment Ethyl Alcohol POC Glucose 09/04/18 09/04/18 07:56 05:14 POC Glucose 104 103 Clinical Impression(s) from Imaging Studies Brain CT 09/03/18 22:14 IMPRESSION: No acute intracranial process or interval change. Again seen is evidence of a remote right craniotomy with underlying temporal encephalomalacia. Electronically Signed: Jad Bravo DO at 23:35 EDT Tel [phone], Service support , Chest X-Ray 09/03/18 22:14 IMPRESSION: Cardiomegaly with poor inspiratory effort and questionable mild vascular congestion versus vascular crowding. Electronically Signed: Jad Bravo DO at 23:35 EDT Tel [phone], Service support , Assessment/Plan Active and Suspected Problems (Last Reviewed 10/30/17 @ 11:41 by Emily Ortega) Salicylate overdose (Acute) Encephalopathy acute (Acute) RECOMMENDATIONS: 1. Decrease lab frequency 2. IV hydration, avoid bicarb drip for now 3. Suicide precautions until further history available 4. Monitor hemodynamics per protocol IMPRESSIONS: 1. Salicylate toxicity There is been no history of reported tinnitus, nausea or vomiting or other toxidrome to suggest the decreased mental status is secondary to salicylate poisoning. Patient likely does not require alkalinization of the urine at this time. Will give IV hydration and support hemodynamics. ABG if necessary. Salicylate level is currently trending down. 2. Toxic encephalopathy Exact etiology is unclear at this time. Low suspicion for a medication toxidrome. Very little history is available at this time. However, patient's vitals are stable and she is protecting her airway. We will continue to support conservatively and monitor mental status. Patient is on benzodiazepines at baseline, so we will need to watch for withdrawal symptoms. Patient also has an extensive psych history. Doubt patient is in status epilepticus given her appropriate response to noxious stimuli. Cannot exclude a postictal state. 3. Bipolar disorder/morbid obesity/poor history/iron deficiency anemia/GERD Complicates care, management, recovery and prognosis. Continue with Keppra therapy. Seizure precautions. No indication for transfusion at this time. Code Visit Inpatient E&M: [id number] Init Hosp L3
[2018-09-04 10:31] LABS: Bedside Glucose 82 mg/dL (70-110)
[2018-09-04 12:36] LABS: Bedside Glucose 90 mg/dL (70-110)
[2018-09-04 12:42] LABS: ALB/GLOB Ratio 0.9 RATIO (0.9-2.4); AST(SGOT) 21 U/L (15-37); Alanine Aminotransfer ALT/SGPT 29 U/L (13-56); Albumin, Serum 2.9 g/dL (3.2-5.0); Alkaline Phosphatase 69 U/L (45-117); Anion Gap 5 (5-15); BUN 10 mg/dL (7-18); BUN/Creat Ratio 13.2 RATIO (10-20); Calcium,Total 7.8 mg/dL (8.5-10.1); Chloride 116 mmol/L (98-107); Creatinine, Serum 0.76 mg/dL (0.55-1.02); EST Glomerular Filtration Rate 93 mL/min (>60); Est Glom Filt Rate - Afr Amer 112 mL/min (>60); Estimated Creatinine Clearance 89.22 ml/min; Globulin 3.4 g/dL (2.2-4.2); Glucose 89 mg/dL (74-106); Potassium 3.5 mmol/L (3.5-5.1); Protein, Total 6.3 g/dL (6.4-8.2); Sodium Level 145 mmol/L (136-145)
--- NOTE | 2018-09-04 13:30 | CASEMGMT ---
Social Work Referral: Assess for need of 1:1 supervision/suicidal watch. Informant: Social work, RN Met with patient in room. Patient currently presenting as lethargic and engaged with this social services technician minimally. Patient currently denies any suicidal or homicidal thoughts. Patient reporting to have limit support when it is time to return to the community, would recommend for patient to have mental health follow up. At this time patient denies suicidal thoughts. Collaborating with nursing staff, RN to contact hospitalist to have hospitalist make final decision on whether or not patient needs 1:1 suicidal supervision. Enrique Jama, MEDICAL SALES CONSULTANT, CRISTOPHER
[2018-09-04 14:50] LABS: Bedside Glucose 91 mg/dL (70-110)
[2018-09-04 16:20] LABS: Bedside Glucose 80 mg/dL (70-110)
[2018-09-05] VITALS (13 sets, daily range): BP systolic 118–151; BP diastolic 75–92; PULSE 81–100; RESP 16–22; TEMP 36.5–37.3; O2SAT 96–100
[2018-09-05] MEDS: 0.9% NaCl Peripheral Flush Adult/Peds IV ×2 (05:14→21:44)
[2018-09-05] MEDS: 0.9% Normal Saline 1,000 ML 150 ML IV (05:15)
[2018-09-05 05:25] LABS: Hematocrit 35.6 % (37-47); Hemoglobin 11.9 g/dl (12.0-15.0); Mean Corp Hgb Conc 33.4 g/gl (32-36); Mean Corpuscular Volume 86.6 fL (81-99); Mean Platelet Vol. 9.1 fl (6.2-12.0); Platelet Count 239 K/mm3 (150-450); RBC Distribution Width CV 13.2 % (11.6-14.6); Red Blood Count 4.11 M/mm3 (4.2-5.4); White Blood Count 7.3 K/mm3 (4.4-11.0)
[2018-09-05 05:30] LABS: International Normalized Ratio 1.6; Partial Thromboplast Time 27.3 Seconds (24.1-36.2); Prothrombin Time (Protime)PT. 18.7 SECONDS (11.7-14.9)
[2018-09-05 05:53] LABS: Salicylate 27.5 mg/dL (2.8-20.0)
--- NOTE | 2018-09-05 05:55 | EKG12_ITS ---
Test Reason : AM EKG Blood Pressure : / mmHG Vent. Rate : 097 BPM Atrial Rate : 097 BPM P-R Int : 174 ms QRS Dur : 106 ms QT Int : 334 ms P-R-T Axes : 035 048 -16 degrees QTc Int : 424 ms Normal sinus rhythm T wave abnormality, consider anterolateral ischemia Abnormal ECG When compared with ECG of 03-SEP-2018 22:31, MANUAL COMPARISON REQUIRED, DATA IS UNCONFIRMED Confirmed by JOSE DE JESUS LIU ([id number]), continuity editor LLILIE POLLOCK ([id number]) on 09/05/2018 2:15:26 PM Referred By: NAHOMI Confirmed By:JOSE DE JESUS LIU
--- NOTE | 2018-09-05 05:55 | RAD_ITS ---
STUDY: X-RAY CHEST REASON FOR EXAM: Female, 33 years old. Shortness of breath, dyspnea TECHNIQUE: Single AP portable view of the chest. COMPARISON: 09/03/2018 FINDINGS: There are superimposed monitor leads. There is improved aeration. The lungs are clear and expanded. There is no demonstrated pleural abnormality. Normal size heart. Normal mediastinum and justo. Normal visualized pulmonary arteries. Normal visualized aortic arch and descending thoracic aorta. The spine and upper abdominal soft tissues are obscured. Obesity. RAD/Chest 1 View (Portable) IMPRESSION: No pulmonary edema, congestive heart failure or confluent pneumonia. Electronically Signed: Shakila Jackson MD at 6:26 EDT , Service support ,
[2018-09-05 06:03] LABS: Scan Indicated on CBC? Y/N NO
--- NOTE | 2018-09-05 07:03 | PN_ITS ---
Subjective: Patient much improved this morning. Patient really opens her eyes and converses. Alert and oriented x2. Patient unable to answer any questions about events leading to hospitalization. Patient is reporting some right shoulder pain. General: Alert, Cooperative, No apparent distress, - - Morbidly obese. No conversational dyspnea. Hirsutism. HEENT: Atraumatic, PERRLA, EOMI, Normocephalic, - - No scleral icterus or injection noted. Oral: Moist Mucosa, No Gingival or Mucosal Lesions/ Ulcerations Neck: Supple, No JVD, No Nodes, Trachea Midline Lungs: Clear to auscultation, Normal air movement, No rhonchi, No wheeze, No rales Cardiovascular: Regular rate, Regular Rhythm, Normal S1, Normal S2, No murmurs, No rub noted, No Gallop Abdomen: Bowel Sounds Present, Soft, Non Tender, Non-Distended, Obese Extremities: No cyanosis, Clubbing, Edema Skin: No rashes, No breakdown Musculoskeletal: No Tenderness to Palpation of Joints or Extremities Lymphatic: No Cervical, Supraclavicular, or Inguinal Adenopathy Neurological: Cranial nerves II-XII grossly intact, Neuro grossly intact, Motor Exam 5/5 strength throughout Psych/Mental Status: Appropriate, Flat Affect Vital Signs Temp Pulse Resp BP Pulse Ox 37.2 C 95 19 H 129/75 H 98 09/05/18 04:00 09/05/18 06:00 09/05/18 06:00 09/05/18 06:00 09/05/18 06:00 Oxygen Delivery Method Room Air Weight: 143.7 kg Body Mass Index (BMI) 52.7 Finger Stick Blood Glucose 105 Intake and Output for Last 24 Hours 09/03/18 09/04/18 09/05/18 23:59 23:59 23:59 Intake Total 2520 / 2520 1288 / 1288 Output Total 3250 / 3250 250 / 250 Balance -730 / -730 1038 / 1038 Labs (Last 48 Hours) 09/03/18 09/03/18 09/03/18 22:18 22:18 22:18 WBC 10.2 RBC 4.83 Hgb 14.0 Hct 40.6 MCV 84.1 MCH 29.0 MCHC 34.5 RDW 12.4 RDW Differential 37.2 Plt Count 315 MPV 9.5 Immature Gran % (Auto) 0.400 Neut % (Auto) 80.1 H Lymph % (Auto) 13.3 L [place] % (Auto) 5.9 Eos % (Auto) 0.0 Baso % (Auto) 0.3 Absolute Neuts (auto) 8.2 H Absolute Lymphs (auto) 1.35 Total Counted Not Reportable PT INR APTT Specimen Type Sample Site pH Bicarbonate Actual POC Total CO2 Base Excess O2 Saturation ABG pCO2 ABG pO2 Gage Test O2 Delivery Device Blood Gas Notified Whom Sodium 141 Potassium 4.0 Chloride 111 H Carbon Dioxide 24.0 Anion Gap 6 BUN 11 Creatinine 0.92 Estim Creat Clear Calc 73.70 Est GFR (MDRD) Af Amer 89 Est GFR (MDRD) Non-Af 74 BUN/Creatinine Ratio 11.9 Glucose 102 Lactic Acid 1.6 Calcium 9.1 Phosphorus Magnesium Total Bilirubin 0.20 AST 22 ALT 36 Alkaline Phosphatase 85 Ammonia Total Creatine Kinase Total Protein 7.7 Albumin 3.5 Globulin 4.2 Albumin/Globulin Ratio 0.8 L Serum , Qual Urine Color Urine Clarity Urine pH Ur Specific [place] Urine Protein Urine Glucose (UA) Urine Ketones Urine Occult Blood Urine Nitrite Urine Bilirubin Urine Urobilinogen Ur Leukocyte Esterase Urine RBC Urine WBC Ur Squamous Epith Cells Amorphous Sediment Urine Bacteria Urine Mucus Salicylates Urine Opiates Screen Urine Methadone Screen Acetaminophen Ur Barbiturates Screen Ur Phencyclidine Scrn Ur Amphetamines Screen U Methamphetamin-MDMA U Benzodiazepines Scrn Urine Cocaine Screen U Cannabinoids Screen Ur Drug Screen Comment Ethyl Alcohol POC Glucose 09/03/18 09/03/18 09/03/18 22:18 22:24 22:24 WBC RBC Hgb Hct MCV MCH MCHC RDW RDW Differential Plt Count MPV Immature Gran % (Auto) Neut % (Auto) Lymph % (Auto) [place] % (Auto) Eos % (Auto) Baso % (Auto) Absolute Neuts (auto) Absolute Lymphs (auto) Total Counted PT INR APTT Specimen Type Sample Site pH Bicarbonate Actual POC Total CO2 Base Excess O2 Saturation ABG pCO2 ABG pO2 Gage Test O2 Delivery Device Blood Gas Notified Whom Sodium Potassium Chloride Carbon Dioxide Anion Gap BUN Creatinine Estim Creat Clear Calc Est GFR (MDRD) Af Amer Est GFR (MDRD) Non-Af BUN/Creatinine Ratio Glucose Lactic Acid Calcium Phosphorus Magnesium Total Bilirubin AST ALT Alkaline Phosphatase Ammonia Total Creatine Kinase Total Protein Albumin Globulin Albumin/Globulin Ratio Serum , Qual NEGATIVE Urine Color Urine Clarity Urine pH Ur Specific [place] Urine Protein Urine Glucose (UA) Urine Ketones Urine Occult Blood Urine Nitrite Urine Bilirubin Urine Urobilinogen Ur Leukocyte Esterase Urine RBC Urine WBC Ur Squamous Epith Cells Amorphous Sediment Urine Bacteria Urine Mucus Salicylates 39.3 H* Urine Opiates Screen Urine Methadone Screen Acetaminophen < 2.0 L Ur Barbiturates Screen Ur Phencyclidine Scrn Ur Amphetamines Screen U Methamphetamin-MDMA U Benzodiazepines Scrn Urine Cocaine Screen U Cannabinoids Screen Ur Drug Screen Comment Ethyl Alcohol 7.0 POC Glucose 09/03/18 09/03/18 09/04/18 22:55 22:55 04:25 WBC RBC Hgb Hct MCV MCH MCHC RDW RDW Differential Plt Count MPV Immature Gran % (Auto) Neut % (Auto) Lymph % (Auto) [place] % (Auto) Eos % (Auto) Baso % (Auto) Absolute Neuts (auto) Absolute Lymphs (auto) Total Counted PT INR APTT Specimen Type Sample Site pH Bicarbonate Actual POC Total CO2 Base Excess O2 Saturation ABG pCO2 ABG pO2 Gage Test O2 Delivery Device Blood Gas Notified Whom Sodium Potassium Chloride Carbon Dioxide Anion Gap BUN Creatinine Estim Creat Clear Calc Est GFR (MDRD) Af Amer Est GFR (MDRD) Non-Af BUN/Creatinine Ratio Glucose Lactic Acid Calcium Phosphorus Magnesium Total Bilirubin AST ALT Alkaline Phosphatase Ammonia Total Creatine Kinase Total Protein Albumin Globulin Albumin/Globulin Ratio Serum , Qual Urine Color Yellow Urine Clarity Sl. Cloudy Urine pH 5.0 Ur Specific [place] 1.025 Urine Protein 15 H Urine Glucose (UA) Normal Urine Ketones 5 H Urine Occult Blood 10 H Urine Nitrite Negative Urine Bilirubin Negative Urine Urobilinogen Normal Ur Leukocyte Esterase 25 H Urine RBC 0-5 SEEN Urine WBC 0-5 SEEN Ur Squamous Epith Cells 0-5 SEEN Amorphous Sediment 1+ URATE Urine Bacteria 0 SEEN Urine Mucus 0 SEEN Salicylates 42.3 H* Urine Opiates Screen NEGATIVE Urine Methadone Screen NEGATIVE Acetaminophen Ur Barbiturates Screen NEGATIVE Ur Phencyclidine Scrn NEGATIVE Ur Amphetamines Screen NEGATIVE U Methamphetamin-MDMA NEGATIVE U Benzodiazepines Scrn POSITIVE H Urine Cocaine Screen NEGATIVE U Cannabinoids Screen NEGATIVE Ur Drug Screen Comment Ethyl Alcohol POC Glucose 09/04/18 09/04/18 09/04/18 05:12 05:12 05:12 WBC RBC Hgb Hct MCV MCH MCHC RDW RDW Differential Plt Count MPV Immature Gran % (Auto) Neut % (Auto) Lymph % (Auto) [place] % (Auto) Eos % (Auto) Baso % (Auto) Absolute Neuts (auto) Absolute Lymphs (auto) Total Counted PT 15.3 H INR 1.2 APTT 26.7 Specimen Type Sample Site pH Bicarbonate Actual POC Total CO2 Base Excess O2 Saturation ABG pCO2 ABG pO2 Gage Test O2 Delivery Device Blood Gas Notified Whom Sodium 146 H Potassium 4.5 Chloride 116 H Carbon Dioxide 25.0 Anion Gap 5 BUN 10 Creatinine 0.79 Estim Creat Clear Calc 85.83 Est GFR (MDRD) Af Amer 106 Est GFR (MDRD) Non-Af 88 BUN/Creatinine Ratio 12.6 Glucose 109 H Lactic Acid Calcium 8.0 L Phosphorus Magnesium Total Bilirubin AST ALT Alkaline Phosphatase Ammonia Total Creatine Kinase 41 Total Protein Albumin Globulin Albumin/Globulin Ratio Serum , Qual Urine Color Urine Clarity Urine pH Ur Specific [place] Urine Protein Urine Glucose (UA) Urine Ketones Urine Occult Blood Urine Nitrite Urine Bilirubin Urine Urobilinogen Ur Leukocyte Esterase Urine RBC Urine WBC Ur Squamous Epith Cells Amorphous Sediment Urine Bacteria Urine Mucus Salicylates Urine Opiates Screen Urine Methadone Screen Acetaminophen Ur Barbiturates Screen Ur Phencyclidine Scrn Ur Amphetamines Screen U Methamphetamin-MDMA U Benzodiazepines Scrn Urine Cocaine Screen U Cannabinoids Screen Ur Drug Screen Comment Ethyl Alcohol POC Glucose 09/04/18 09/04/18 09/04/18 05:14 05:22 07:56 WBC RBC Hgb Hct MCV MCH MCHC RDW RDW Differential Plt Count MPV Immature Gran % (Auto) Neut % (Auto) Lymph % (Auto) [place] % (Auto) Eos % (Auto) Baso % (Auto) Absolute Neuts (auto) Absolute Lymphs (auto) Total Counted PT INR APTT Specimen Type ART Sample Site L Radial pH 7.34 L Bicarbonate Actual 19.6 L POC Total CO2 21 Base Excess -6 L O2 Saturation 97 ABG pCO2 36.3 ABG pO2 96 Gage Test NA O2 Delivery Device Room Air Blood Gas Notified Whom ED Sodium Potassium Chloride Carbon Dioxide Anion Gap BUN Creatinine Estim Creat Clear Calc Est GFR (MDRD) Af Amer Est GFR (MDRD) Non-Af BUN/Creatinine Ratio Glucose Lactic Acid Calcium Phosphorus Magnesium Total Bilirubin AST ALT Alkaline Phosphatase Ammonia Total Creatine Kinase Total Protein Albumin Globulin Albumin/Globulin Ratio Serum , Qual Urine Color Urine Clarity Urine pH Ur Specific [place] Urine Protein Urine Glucose (UA) Urine Ketones Urine Occult Blood Urine Nitrite Urine Bilirubin Urine Urobilinogen Ur Leukocyte Esterase Urine RBC Urine WBC Ur Squamous Epith Cells Amorphous Sediment Urine Bacteria Urine Mucus Salicylates Urine Opiates Screen Urine Methadone Screen Acetaminophen Ur Barbiturates Screen Ur Phencyclidine Scrn Ur Amphetamines Screen U Methamphetamin-MDMA U Benzodiazepines Scrn Urine Cocaine Screen U Cannabinoids Screen Ur Drug Screen Comment Ethyl Alcohol POC Glucose 103 104 09/04/18 09/04/18 09/04/18 08:05 08:05 08:35 WBC RBC Hgb Hct MCV MCH MCHC RDW RDW Differential Plt Count MPV Immature Gran % (Auto) Neut % (Auto) Lymph % (Auto) [place] % (Auto) Eos % (Auto) Baso % (Auto) Absolute Neuts (auto) Absolute Lymphs (auto) Total Counted PT INR APTT Specimen Type Sample Site pH Bicarbonate Actual POC Total CO2 Base Excess O2 Saturation ABG pCO2 ABG pO2 Gage Test O2 Delivery Device Blood Gas Notified Whom Sodium 145 Potassium 3.7 Chloride 116 H Carbon Dioxide 24.0 Anion Gap 5 BUN 10 Creatinine 0.73 Estim Creat Clear Calc 92.88 Est GFR (MDRD) Af Amer 116 Est GFR (MDRD) Non-Af 96 BUN/Creatinine Ratio 13.7 Glucose 105 Lactic Acid Calcium 8.1 L Phosphorus 3.6 Magnesium 2.1 Total Bilirubin 0.20 AST 17 ALT 30 Alkaline Phosphatase 70 Ammonia 17.0 Total Creatine Kinase Total Protein 6.7 Albumin 3.0 L Globulin 3.7 Albumin/Globulin Ratio 0.8 L Serum , Qual Urine Color Urine Clarity Urine pH Ur Specific [place] Urine Protein Urine Glucose (UA) Urine Ketones Urine Occult Blood Urine Nitrite Urine Bilirubin Urine Urobilinogen Ur Leukocyte Esterase Urine RBC Urine WBC Ur Squamous Epith Cells Amorphous Sediment Urine Bacteria Urine Mucus Salicylates 39.6 H* Urine Opiates Screen Urine Methadone Screen Acetaminophen Ur Barbiturates Screen Ur Phencyclidine Scrn Ur Amphetamines Screen U Methamphetamin-MDMA U Benzodiazepines Scrn Urine Cocaine Screen U Cannabinoids Screen Ur Drug Screen Comment Ethyl Alcohol POC Glucose 09/04/18 09/04/18 09/04/18 10:04 12:15 12:15 WBC RBC Hgb Hct MCV MCH MCHC RDW RDW Differential Plt Count MPV Immature Gran % (Auto) Neut % (Auto) Lymph % (Auto) [place] % (Auto) Eos % (Auto) Baso % (Auto) Absolute Neuts (auto) Absolute Lymphs (auto) Total Counted PT INR APTT Specimen Type Sample Site pH Bicarbonate Actual POC Total CO2 Base Excess O2 Saturation ABG pCO2 ABG pO2 Gage Test O2 Delivery Device Blood Gas Notified Whom Sodium 145 Potassium 3.5 Chloride 116 H Carbon Dioxide 24.0 Anion Gap 5 BUN 10 Creatinine 0.76 Estim Creat Clear Calc 89.22 Est GFR (MDRD) Af Amer 112 Est GFR (MDRD) Non-Af 93 BUN/Creatinine Ratio 13.2 Glucose 89 Lactic Acid Calcium 7.8 L Phosphorus Magnesium Total Bilirubin 0.10 L AST 21 ALT 29 Alkaline Phosphatase 69 Ammonia Total Creatine Kinase Total Protein 6.3 L Albumin 2.9 L Globulin 3.4 Albumin/Globulin Ratio 0.9 Serum , Qual Urine Color Urine Clarity Urine pH Ur Specific [place] Urine Protein Urine Glucose (UA) Urine Ketones Urine Occult Blood Urine Nitrite Urine Bilirubin Urine Urobilinogen Ur Leukocyte Esterase Urine RBC Urine WBC Ur Squamous Epith Cells Amorphous Sediment Urine Bacteria Urine Mucus Salicylates 33.0 H* Urine Opiates Screen Urine Methadone Screen Acetaminophen Ur Barbiturates Screen Ur Phencyclidine Scrn Ur Amphetamines Screen U Methamphetamin-MDMA U Benzodiazepines Scrn Urine Cocaine Screen U Cannabinoids Screen Ur Drug Screen Comment Ethyl Alcohol POC Glucose 82 09/04/18 09/04/18 09/04/18 12:24 14:48 16:18 WBC RBC Hgb Hct MCV MCH MCHC RDW RDW Differential Plt Count MPV Immature Gran % (Auto) Neut % (Auto) Lymph % (Auto) [place] % (Auto) Eos % (Auto) Baso % (Auto) Absolute Neuts (auto) Absolute Lymphs (auto) Total Counted PT INR APTT Specimen Type Sample Site pH Bicarbonate Actual POC Total CO2 Base Excess O2 Saturation ABG pCO2 ABG pO2 Gage Test O2 Delivery Device Blood Gas Notified Whom Sodium Potassium Chloride Carbon Dioxide Anion Gap BUN Creatinine Estim Creat Clear Calc Est GFR (MDRD) Af Amer Est GFR (MDRD) Non-Af BUN/Creatinine Ratio Glucose Lactic Acid Calcium Phosphorus Magnesium Total Bilirubin AST ALT Alkaline Phosphatase Ammonia Total Creatine Kinase Total Protein Albumin Globulin Albumin/Globulin Ratio Serum , Qual Urine Color Urine Clarity Urine pH Ur Specific [place] Urine Protein Urine Glucose (UA) Urine Ketones Urine Occult Blood Urine Nitrite Urine Bilirubin Urine Urobilinogen Ur Leukocyte Esterase Urine RBC Urine WBC Ur Squamous Epith Cells Amorphous Sediment Urine Bacteria Urine Mucus Salicylates Urine Opiates Screen Urine Methadone Screen Acetaminophen Ur Barbiturates Screen Ur Phencyclidine Scrn Ur Amphetamines Screen U Methamphetamin-MDMA U Benzodiazepines Scrn Urine Cocaine Screen U Cannabinoids Screen Ur Drug Screen Comment Ethyl Alcohol POC Glucose 90 91 80 09/05/18 09/05/18 09/05/18 05:10 05:10 05:10 WBC 7.3 RBC 4.11 L Hgb 11.9 L Hct 35.6 L MCV 86.6 MCH 29.0 MCHC 33.4 RDW 13.2 RDW Differential 42.0 Plt Count 239 MPV 9.1 Immature Gran % (Auto) Neut % (Auto) Lymph % (Auto) [place] % (Auto) Eos % (Auto) Baso % (Auto) Absolute Neuts (auto) Absolute Lymphs (auto) Total Counted PT 18.7 H INR 1.6 APTT 27.3 Specimen Type Sample Site pH Bicarbonate Actual POC Total CO2 Base Excess O2 Saturation ABG pCO2 ABG pO2 Gage Test O2 Delivery Device Blood Gas Notified Whom Sodium Potassium Chloride Carbon Dioxide Anion Gap BUN Creatinine Estim Creat Clear Calc Est GFR (MDRD) Af Amer Est GFR (MDRD) Non-Af BUN/Creatinine Ratio Glucose Lactic Acid Calcium Phosphorus Magnesium Total Bilirubin AST ALT Alkaline Phosphatase Ammonia Total Creatine Kinase Total Protein Albumin Globulin Albumin/Globulin Ratio Serum , Qual Urine Color Urine Clarity Urine pH Ur Specific [place] Urine Protein Urine Glucose (UA) Urine Ketones Urine Occult Blood Urine Nitrite Urine Bilirubin Urine Urobilinogen Ur Leukocyte Esterase Urine RBC Urine WBC Ur Squamous Epith Cells Amorphous Sediment Urine Bacteria Urine Mucus Salicylates 27.5 H Urine Opiates Screen Urine Methadone Screen Acetaminophen Ur Barbiturates Screen Ur Phencyclidine Scrn Ur Amphetamines Screen U Methamphetamin-MDMA U Benzodiazepines Scrn Urine Cocaine Screen U Cannabinoids Screen Ur Drug Screen Comment Ethyl Alcohol POC Glucose Clinical Impression(s) from Imaging Studies Chest X-Ray 09/05/18 05:55 IMPRESSION: No pulmonary edema, congestive heart failure or confluent pneumonia. Electronically Signed: Shakila Jackson MD at 6:26 EDT , Service support , Medical Necessity - Tobacco Use Smoking Status: Never smoker Tobacco Use: Non-smoker Assessment/Plan All Active Problems (Last Reviewed 10/30/17 @ 11:41 by Emily Ortega) Salicylate overdose (Acute) Encephalopathy acute (Acute) Abnormal uterine bleeding (Acute) Suicidal behavior (Acute) Unresponsive state (Acute) RECOMMENDATIONS: 1. No need to monitor aspirin levels further 2. Initiation of p.o. diet following bedside swallow eval 3. Suicide precautions until further history available 4. Okay to leave the intensive care unit from my perspective 5. Hemodynamically stable on room air. Will sign off from a critical care perspective IMPRESSIONS: 1. Salicylate toxicity There is been no history of reported tinnitus, nausea or vomiting or other toxidrome to suggest the decreased mental status is secondary to salicylate poisoning. Salicylate level is trending down. Patient is no longer in a toxic range and this should not need to be followed. Patient is not reporting any tinnitus, nausea or vomiting. 2. Toxic encephalopathy Exact etiology is unclear at this time. Suspicion for a medication toxidrome. Patient appears to be improving with conservative therapy. Patient is not able to provide much additional history at this time. Patient has remained hemodynamically stable. Okay to leave the intensive care unit from my perspective. 3. Bipolar disorder/morbid obesity/poor history/iron deficiency anemia/GERD Complicates care, management, recovery and prognosis. Continue with Keppra therapy. Seizure precautions. No indication for transfusion at this time. Code Visit Inpatient E&M: 02657 Subs Hosp L2
--- NOTE | 2018-09-05 08:18 | PN_ITS ---
Patient Problems: Active and Suspected Problems (Last Reviewed 10/30/17 @ 11:41 by Emily Ortega) Salicylate overdose (Acute) Encephalopathy acute (Acute) Subjective: Patient was seen and examined. She complains still of feeling depressed. Still has suicidal ideation. She is bothered about her mother. She has 2 siblings who live in town. Does not sound like she gets support from them. She last saw her psychiatrist less than a week prior to admission. Denied any dizziness or chest pain or palpitation. No acute events overnight. Sitter at the bedside. Objective: Physical exam: GEN: Lethargic, not pale or juandiced, dry oral mucosa CVS:HS I +II, regular, no murmurs RESP:CTA ABD:BS present and normal, soft, nontender EXT: No edema Vitals/I&O's: Vital Signs Temp Pulse Resp BP Pulse Ox 99 F 95 19 H 129/75 H 98 09/05/18 04:00 09/05/18 06:00 09/05/18 06:00 09/05/18 06:00 09/05/18 06:00 Oxygen Delivery Method Room Air Weight: 143.7 kg Body Mass Index (BMI) 52.7 Finger Stick Blood Glucose 105 Intake and Output for Last 24 Hours 09/03/18 09/04/18 09/05/18 23:59 23:59 23:59 Intake Total 2520 / 2520 1288 / 1288 Output Total 3250 / 3250 250 / 250 Balance -730 / -730 1038 / 1038 Laboratory Results 09/04/18 07:56: POC Glucose 104 09/04/18 08:05: Sodium 145, Potassium 3.7, Chloride 116 H, Carbon Dioxide 24.0, Anion Gap 5, BUN 10, Creatinine 0.73, Estim Creat Clear Calc 92.88, Est GFR (MDRD) Af Amer 116, Est GFR (MDRD) Non-Af 96, BUN/Creatinine Ratio 13.7, Glucose 105, Calcium 8.1 L, Phosphorus 3.6, Magnesium 2.1, Total Bilirubin 0.20, AST 17, ALT 30, Alkaline Phosphatase 70, Total Protein 6.7, Albumin 3.0 L, Globulin 3.7, Albumin/Globulin Ratio 0.8 L 09/04/18 08:05: Salicylates 39.6 H* 09/04/18 08:35: Ammonia 17.0 09/04/18 10:04: POC Glucose 82 09/04/18 12:15: Sodium 145, Potassium 3.5, Chloride 116 H, Carbon Dioxide 24.0, Anion Gap 5, BUN 10, Creatinine 0.76, Estim Creat Clear Calc 89.22, Est GFR (MDRD) Af Amer 112, Est GFR (MDRD) Non-Af 93, BUN/Creatinine Ratio 13.2, Glucose 89, Calcium 7.8 L, Total Bilirubin 0.10 L, AST 21, ALT 29, Alkaline Phosphatase 69, Total Protein 6.3 L, Albumin 2.9 L, Globulin 3.4, Albumin/Globulin Ratio 0.9 09/04/18 12:15: Salicylates 33.0 H* 09/04/18 12:24: POC Glucose 90 09/04/18 14:48: POC Glucose 91 09/04/18 16:18: POC Glucose 80 09/05/18 05:10: WBC 7.3, RBC 4.11 L, Hgb 11.9 L, Hct 35.6 L, MCV 86.6, MCH 29.0, MCHC 33.4, RDW 13.2, RDW Differential 42.0, Plt Count 239, MPV 9.1 09/05/18 05:10: PT 18.7 H, INR 1.6, APTT 27.3 09/05/18 05:10: Salicylates 27.5 H Current Medications Al Hydroxide/Mg Hydroxide (Mylanta Ii) 15 - 30 ml PO Q4H PRN PRN PRN Reason: INDIGESTION Albuterol Sulfate (Ventolin Aerosols) 2.5 mg INHALATION Q2H PRN PRN PRN Reason: dyspnea, wheezing Dextrose (D50w Syringe) 0 gm IV X1 PRN; Protocol PRN Reason: Hypoglycemia Glucagon () 1 mg IM .X1 PRN PRN Reason: Hypoglycemia Hydralazine HCl (Apresoline Iv) 10 mg IV Q4H PRN PRN PRN Reason: SBP > 160 Levetiracetam () 100 mls @ 400 mls/hr IV QAM [facility] Last Admin: 09/04/18 10:13 Dose: 400 mls/hr Documented by: Levetiracetam 500 mg/ Sodium (Chloride) 105 mls @ 400 mls/hr IV QHS [facility] Last Admin: 09/04/18 21:12 Dose: 400 mls/hr Documented by: Sodium Chloride () 1,000 mls @ 150 mls/hr IV .[id number] [facility] Last Admin: 09/05/18 05:15 Dose: 150 mls/hr Documented by: Famotidine 20 mg/ Sodium (Chloride) 10 mls @ 300 mls/hr IV Q12 [facility] Last Admin: 09/04/18 22:11 Dose: 300 mls/hr Documented by: Sodium Chloride () 250 mls @ 15 mls/hr IV .[id number] PRN PRN Reason: SALINE FLUSH Magnesium Hydroxide (Milk Of Magnesia) 30 ml PO DAILY PRN PRN Reason: Constipation Ondansetron HCl (Zofran) 4 mg IV Q8H PRN PRN PRN Reason: NAUSEA/VOMITING Sodium Chloride () 5 - 15 ml IV UD PRN PRN Reason: SALINE FLUSH Last Admin: 09/05/18 05:14 Dose: 10 ml Documented by: Medical Necessity - Tobacco Use Smoking Status: Never smoker Tobacco Use: Non-smoker Assessment/Plan All Active Problems (Last Reviewed 10/30/17 @ 11:41 by Emily Otrega) Salicylate overdose (Acute) Encephalopathy acute (Acute) Abnormal uterine bleeding (Acute) Suicidal behavior (Acute) Unresponsive state (Acute) 1. Acute metabolic encephalopathy/toxic encephalopathy, multifactorial, secondary to Xanax overdose, salicylate toxicity, improving Continue to monitor 2. Salicylate toxicity without metabolic acidosis, no need to suicide attempt, levels are decreasing, will continue to monitor 3. Xanax overdose, improved, continue to monitor vitals 4. Suicidal ideation/attempt, crisis consulted, sitter at the bedside 5. Bipolar disorder on valproic acid and Xanax, continue with Xanax and very low dose of 0.5mg BID to prevent withdrawal 6. DVT ppx- early ambulation Code Visit Inpatient E&M: 92011 [facility] Hosp L2
--- NOTE | 2018-09-05 10:31 | CASEMGMT ---
RN CM Assessment Introduced role of RN CM to patient.? Patient is alert, oriented and able?to participate in RN CM Assessment. ?Care providers, pharmacy, and demographics verified. Presentation: AMS, Unresponsive, BIB EMS. Admit Dx: ASA Overdose Re-Admit: No Barriers/Issues: Possible Psych- SW eval, Crisis Need?? Patient states I don't want to talk about it when this Cm inquired about what brought her into the hospital. States Psychiatrist in [facility] and cannot recall name, States Counseling through [facility] in [place]. Prior to patient disclosing Counseling was through [facility], Patient did get very loud/vocal with curse words when CM asked if counseling was through the Counseling center and stated Fuck them, they put me on medication and caused me to start having Seizures. Lives alone and denies any Family or Friend Support, Lack of Support System. PCP: Abdirashid Vazquez. Has only seen once in 2016. States has switched in the past and denied wanting to switch again for closer f/u. Specialists: Psych-see above Preferred Pharmacy: [facility] Insurance: Joanne Nguyễn [facility] Rx Benefit:?Yes ?LNOK: States none, states wants Friend that was listed Skylar Mcnulty removed. LW/HPOA: Has a LW on file. Would like info on HPOA Living Arrangements:?Lives alone in a Duplex, 17 steps to enter. ADL?s: Independent with ambulation and ADL's Transportation: Patient drives, states will walk on DC. (Possible need for SW to discuss/assist with Transportation if an issue) DME: None HHC: None SNF: None Goal: Patient slightly closed off with providing information during discussion, Goal TBD. DC PLAN: TBD, Possible Crisis eval, Possible Psych Placement. CM remains available for any emerging needs. SKYLAR Mora
--- NOTE | 2018-09-05 12:01 | CASEMGMT ---
Patient is medically cleared and ready for crisis evaluation. MARIAH called crisis and spoke with Ad. He said they are seeing a patient in ED and then patient will be next on the list. MARIAH called conveyor line battery charger, Abdirashid and let her know this information. Dalia NICHOLAS MSW
[2018-09-05] MEDS: ALPRAZolam 0.5 MG Tablet PO ×2 (12:31→21:44)
[2018-09-05] MEDS: 0.9% Normal Saline 1,000 ML 100 ML IV ×2 (12:31→23:43)
[2018-09-05] MEDS: levETIRAcetam 500 MG Tablet 1000 MG PO (12:32)
--- NOTE | 2018-09-05 15:03 | NURSING ---
Spoke with RN at Dr. Vazquez's office requesting medication list- fax number given.
--- NOTE | 2018-09-05 15:47 | NURSING ---
Addendum entered by Shayna Ribera 09/05/18 17:10: Crisis states that pt's father was notified of pt being here due to pt emergent situation resulting in admission. Father's name is Ad and his phone number is [phone]. Father states that pt's mother 11 yrs ago and that she knew how to deal with pt best. States that she is upset with him and he has difficulty trying to help her. Original Note: Crisis was in to see pt this afternoon.
--- NOTE | 2018-09-05 18:44 | DCINST_ITS ---
- Discharge Diagnoses Current Active Problems: Current Active and Chronic Problems (Last Reviewed 10/30/17 @ 11:41 by Emily Ortega) Salicylate overdose (Acute) Encephalopathy acute (Acute) Reason(s) for Visit for Discharge Instructions: Suicidal ideation You will use the following diet at home:: No restrictions, Regular Your food should be the consistency of: Regular Your liquids should be the consistency of: Regular/Thin Discharge Activity: Return to Normal Activity Allergies/Adverse Reactions: Allergies phenobarbital Allergy (Verified 01/02/18 22:29) Unknown Medications to take at Discharge levETIRAcetam tablet [Keppra tablet] 1,000 mg PO BREAKFAST 05/24/15 levETIRAcetam tablet [Keppra tablet] 500 mg PO QHS 11/12/15 Amitriptyline HCl 4 tab PO QHS PRN PRN 12/12/16 Biotin 1 tab PO DAILY 09/06/17 Ferrous Sulfate [Iron] 1 tab PO TID 09/06/17 ALPRAZolam [Xanax] 2 mg PO TID PRN PRN 09/08/17 Cholecalciferol (VIT D3) [Vitamin D] 2,000 unit PO DAILY 09/05/18 Medroxyprogesterone Acetate [Provera] 10 mg PO DAILY 09/05/18 Primary Care Physician: Abdirashid Vazquez DO [Primary Care Provider] - Test Results: Test results from this visit will be discussed in further detail at your follow- up appointment, if applicable. Proposed Discharge Date: 09/05/18
--- NOTE | 2018-09-05 18:47 | DS.PCM_ITS ---
Discharge Date and Diagnosis Date of Admission: 09/04/18 Date of Discharge: 09/06/18 - Primary Discharge Diagnosis Active and Suspected Problems (Last Reviewed 10/30/17 @ 11:41 by Emily Ortega) Salicylate overdose (Acute) Encephalopathy acute (Acute) Suicidal attempt Acute psychosis/major depression - Secondary Discharge Diagnosis Chronic Problems (Last Reviewed 10/30/17 @ 11:41 by Emily Ortega) Hirsutism (Chronic) Polycystic ovarian syndrome (Chronic) Depression (Chronic) Seizure (Chronic) Hospital Course and Treatment Imaging Results: Clinical Impression(s) from Imaging Studies Brain CT 09/03/18 22:14 IMPRESSION: No acute intracranial process or interval change. Again seen is evidence of a remote right craniotomy with underlying temporal encephalomalacia. Electronically Signed: Jad Bravo DO at 23:35 EDT Tel [phone], Service support , Chest X-Ray 09/03/18 22:14 IMPRESSION: Cardiomegaly with poor inspiratory effort and questionable mild vascular congestion versus vascular crowding. Electronically Signed: Jad Bravo DO at 23:35 EDT Tel [phone], Service support , Chest X-Ray 09/05/18 05:55 IMPRESSION: No pulmonary edema, congestive heart failure or confluent pneumonia. Electronically Signed: Shakila Jackson MD at 6:26 EDT , Service support , Consultations 09/05/18 11:02 Consult: Mental Health/Crisis Routine Reason for consult?: Suidal attempt Date Notified:: 09/05/18 Time notified:: 14:00 Business Management Manager Operations: None Procedures: None Summary of Care Provided: The patient is a 33 year old F with past medical history of bipolar disorder, multiple psychiatric admissions, history of suicide attempts who was brought in by the police. The police were called for patient was loitering in the middle of street and standing in a mud puddle. By the time they got to her, patient suddenly became unresponsive. She was brought to the emergency department, she was lethargic, would respond to commands. Her admitting blood work was significant for elevated salicylate levels. Her urine tox was also positive with benzodiazepines. Patient was managed symptomatically in the ICU as salicylate toxicity as well as Xanax overdose. Patient continued to improve. She continued to express suicidal ideation when she became more alert. She did not have a plan during the hospital stay because she does not know what she could use around her. She had a sitter at bedside the whole time. Crisis evaluated patient and felt her to be a candidate for inpatient psych admission. She was pink slipped and discharged on 09/06/18. Subjective: On the day of discharge, patient was seen and examined. She still feels depressed and suicidal. No acute events. - Physical Exam General: Alert, Oriented x3, Cooperative, No apparent distress, - - super morbid obesity, hirsuitism HEENT: Atraumatic, PERRLA, EOMI, Normocephalic Oral: Moist Mucosa Neck: Supple Lungs: Clear to auscultation, Normal air movement Cardiovascular: Regular rate, Regular Rhythm, Normal S1, Normal S2, No murmurs Abdomen: Bowel Sounds Present, Soft, Non Tender, Non-Distended, No Hepato- splenomegaly Extremities: No edema Skin: No rashes, No breakdown Musculoskeletal: No Tenderness to Palpation of Joints or Extremities Lymphatic: No Cervical, Supraclavicular, or Inguinal Adenopathy Neurological: Cranial nerves II-XII grossly intact, Neuro grossly intact Psych/Mental Status: Normal Affect, Appropriate Vital Signs Temp Pulse Resp BP Pulse Ox 97.7 F L 81 20 H 146/81 H 100 09/05/18 14:30 09/05/18 14:30 09/05/18 14:30 09/05/18 14:30 09/05/18 14:30 Oxygen Delivery Method Room Air Weight: 143.7 kg Body Mass Index (BMI) 52.7 Finger Stick Blood Glucose 105 Intake and Output for Last 24 Hours 09/03/18 09/04/18 09/05/18 23:59 23:59 23:59 Intake Total 2520 / 2520 2428 / 2428 Output Total 3250 / 3250 400 / 400 Balance -730 / -730 2027 Laboratory Tests Past 24 Hrs 09/05/18 09/05/18 09/05/18 05:10 05:10 05:10 WBC 7.3 RBC 4.11 L Hgb 11.9 L Hct 35.6 L MCV 86.6 MCH 29.0 MCHC 33.4 RDW 13.2 RDW Differential 42.0 Plt Count 239 MPV 9.1 PT 18.7 H INR 1.6 APTT 27.3 Salicylates 27.5 H Discharge Diet: No Restrictions Discharge Activity: Return to Normal Activity Home Medications: Medications to take at Discharge levETIRAcetam tablet [Keppra tablet] 1,000 mg PO BREAKFAST 05/24/15 levETIRAcetam tablet [Keppra tablet] 500 mg PO QHS 11/12/15 Amitriptyline HCl 4 tab PO QHS PRN PRN 12/12/16 Biotin 1 tab PO DAILY 09/06/17 Ferrous Sulfate [Iron] 1 tab PO TID 09/06/17 ALPRAZolam [Xanax] 2 mg PO TID PRN PRN 09/08/17 Cholecalciferol (VIT D3) [Vitamin D] 2,000 unit PO DAILY 09/05/18 Medroxyprogesterone Acetate [Provera] 10 mg PO DAILY 09/05/18 Primary Care Physician: Abdirashid Vazquez DO [Primary Care Provider] - Disposition: Psych Hospital or Unit Minutes spent on discharge:: 50 Patient Condition:: Stable Medical Necessity - Tobacco Use Smoking Status: Never smoker Tobacco Use: Non-smoker Meaningful Use Info Meaningful Use Diagnoses (Choose all that apply): None applicable Code Visit Inpatient E&M: 57087 Disch Hosp
--- NOTE | 2018-09-05 18:57 | NURSING ---
Radha in ICU called and stated that pt's aunts are here to see her, wondering if pt would like them to visit. This RN asked pt and she states that no she does not want them to visit. Radha notified of same.
[2018-09-05] MEDS: levETIRAcetam 500 MG Tablet PO (21:44)
[2018-09-05] MEDS: Famotidine 20 MG Tablet PO (21:44)
[2018-09-06] MEDS: 0.9% NaCl Peripheral Flush Adult/Peds IV (00:17)
[2018-09-06 02:30] VITALS: BP 148/90; PULSE 80; RESP 18; TEMP 36.5; O2SAT 97
--- NOTE | 2018-09-06 05:55 | EKG12_ITS ---
Test Reason : AM Blood Pressure : / mmHG Vent. Rate : 077 BPM Atrial Rate : 077 BPM P-R Int : 184 ms QRS Dur : 098 ms QT Int : 378 ms P-R-T Axes : -19 130 -21 degrees QTc Int : 427 ms Normal sinus rhythm Left posterior fascicular block Abnormal ECG When compared with ECG of 05-SEP-2018 04:56, Left posterior fascicular block is now Present Nonspecific T wave abnormality has replaced inverted T waves in Inferior leads T wave inversion no longer evident in Anterolateral leads Confirmed by CRISTINO ARCE, VINEET ([id number]), acquisitions editor LILLIE POLLOCK ([id number]) on 09/07/2018 11:07:26 AM Referred By: MARTI Confirmed By:RUBÉN GREGG MD
[2018-09-06 06:56] VITALS: O2SAT 97
[2018-09-06 08:30] VITALS: BP 128/64; PULSE 74; RESP 18; TEMP 36.5; O2SAT 99
[2018-09-06] MEDS: ALPRAZolam 0.5 MG Tablet PO (09:06)
[2018-09-06] MEDS: levETIRAcetam 500 MG Tablet 1000 MG PO (09:06)
[2018-09-06] MEDS: Famotidine 20 MG Tablet PO (09:13)
[2018-09-06] MEDS: 0.9% Normal Saline 1,000 ML 100 ML IV (09:14)
--- NOTE | 2018-09-06 10:20 | NURSING ---
Malathi from [facility] called, states the physician is requesting cardiac labs, troponin and CK-MB. Aware that we no longer do CK-MB at this facility, but that a troponin was ordered per Dr. Swan. Will fax results when available.
--- NOTE | 2018-09-06 12:33 | NURSING ---
Spoke with Malathi at [facility], they did receive the fax with the troponin and she is awaiting to hear back from her physician.
--- NOTE | 2018-09-06 14:04 | NURSING ---
Called report to Lynette at [facility] at this time. transport to yet be set up for this evening. Her number is [phone]. Dr. Thomas admitting Doctor
[2018-09-06 14:56] VITALS: BP 159/81; PULSE 83; RESP 18; TEMP 36.9; O2SAT 100
--- NOTE | 2018-09-07 08:10 | PCM.PN.HOSP ---
Vitals/I&O's: Vital Signs Temp Pulse Resp BP Pulse Ox 98.4 F 83 18 159/81 H 100 09/06/18 14:56 09/06/18 14:56 09/06/18 14:56 09/06/18 14:56 09/06/18 14:56 Oxygen Delivery Method Room Air Weight: 143.7 kg Body Mass Index (BMI) 52.7 Finger Stick Blood Glucose 105 Intake and Output for Last 24 Hours 09/05/18 09/06/18 09/07/18 23:59 23:59 23:59 Intake Total 3990 / 3990 1338 / 1338 Output Total 400 / 400 Balance 3590 / 3590 1338 / 1338 Laboratory Results 09/06/18 10:40: Troponin I < 0.015 Medical Necessity - Tobacco Use Smoking Status: Never smoker Tobacco Use: Non-smoker Assessment/Plan All Active Problems (Last Reviewed 10/30/17 @ 11:41 by Emily Ortega) Salicylate overdose (Acute) Encephalopathy acute (Acute) Abnormal uterine bleeding (Acute) Suicidal behavior (Acute) Unresponsive state (Acute)
== END 2018-09-06 19:25 | DRG 917 ==
LOC: ED 09-04 00:20 → ICU 09-04 06:17 → MS3 09-05 14:03
PROVIDERS: Emergency Medicine; Internal Medicine Critical Care Medicine; Admitting Provider Family Medicine; Emergency Provider Emergency Medicine; Family Provider Student in an Organized Health Care Education/Training Program; PCP Student in an Organized Health Care Education/Training Program; Visit Provider Internal Medicine
DX: T39.012A Poisoning by aspirin, intentional self-harm, initial encounter (principal); G92 Toxic encephalopathy; Z68.43 Body mass index [BMI] 50.0-59.9, adult; F23 Brief psychotic disorder; T42.4X2A Poisoning by benzodiazepines, intentional self-harm, initial encounter; E28.2 Polycystic ovarian syndrome; E66.01 Morbid (severe) obesity due to excess calories; L68.0 Hirsutism; F31.9 Bipolar disorder, unspecified
CPT/HCPCS: 36415; 36600; 51702; 70450; 71045; 80048; 80053; 80307; 80320; 80329; 81001; 82140; 82550; 82803; 82962; 83605; 83735; 84100; 84484; 84703; 85025; 85027; 85610; 85730; 93005; 97161; 97166; 97802; 99285; J7030; A4216; G0480; J3490

== ENCOUNTER 2018-11-23 23:25 | Emergency (ER) | payer MEDICARE, MEDICAID, SELFPAY ==
[2018-09-04 07:51] VITALS: BMI 52.7
[2018-11-23 23:26] VITALS: BP 154/115; PULSE 118; RESP 13; TEMP 37.1; O2SAT 97; BMI 55.2
--- NOTE | 2018-11-23 23:37 | EKG12_ITS ---
Test Reason : MHC Blood Pressure : / mmHG Vent. Rate : 099 BPM Atrial Rate : 099 BPM P-R Int : 164 ms QRS Dur : 098 ms QT Int : 376 ms P-R-T Axes : 019 021 015 degrees QTc Int : 482 ms Normal sinus rhythm Prolonged QT Abnormal ECG Confirmed by CRISTINO ARCE, VINEET ([id number]), script editor TERRY SANCHEZ ([id number]) on 11/27/2018 11:55:07 AM Referred By: YI Confirmed By:RUBÉN GREGG MD
--- NOTE | 2018-11-23 23:39 | ED.DCSUM_ITS ---
- ER Visit Summary Date of Service: 11/23/18 Chief Complaint: Depression and suicide attempt History of Present Illness: The patient is a 33 F who presents with depression and suicide attempt that began tonight. Patient states she was depressed because she states she was set up and tried to pass counterfeit money. Patient states that she took handfuls of aspirin, Aleve, and Tylenol tonight between 6 PM and 10 PM. Patient presented here at 11:30 PM. Patient states she took approximately 100 aspirin, 30 Aleve, and a unknown amount of Tylenol but she believes that there were only a few Tylenol tablets that she took tonight. Patient admits to some abdominal pain. Patient admits to some nausea and vomiting earlier in the day but denies any vomiting after she took the medications. Patient denies any chest pain or shortness of breath. Physical Examination: Vital signs are stable except for an elevated blood pressure 134/115 and tachycardia of 118. Patient is afebrile. Patient is in no acute distress. Oral mucosa is pink and moist. Neck is supple. Trachea is midline. There is no JVD noted. Heart was regular rate and rhythm. Lungs are clear and equal bilaterally. Abdomen is soft. Bowel sounds are normal. There is mild diffuse tenderness. There is no rebound or guarding noted. Cranial nerves II through XII are intact. There are no focal motor or sensory deficits noted. Test Results: EKG showed normal sinus rhythm with a rate of 99. There are no acute ST or T wave changes. QTc was 482. Arterial blood gas showed a pH of 4.58 with a PCO2 of 29.6, a PO2 of 101, bicarb of 20.9, and oxygen saturation of 98% on room air. Basic metabolic profile showed a mild hypokalemia of 3.2. Urinalysis does not show any evidence of urinary tract infection. Acetaminophen level and salicylate levels were normal. Tox screen was positive for benzodiazepines which patient is prescribed. Serum alcohol level was normal. Given the unknown time of ingestion of acetaminophen and salicylates, a repeat acetaminophen and salicylate level was drawn 4 hours after her last possible dose and these were normal as well. Emergency Department Course and Treatment: Patient is medically cleared for psychiatric evaluation. Crisis counselor was in to evaluate the patient. She felt as though the patient would benefit from inpatient placement and treatment. She will attempt to find placement for the patient. Patient will be transferred to psychiatric facility. Disposition: Transfer to psychiatric facility Impression: Depression with suicidal gesture This note was generated with [employer] dictation software. It may contain incorrect words, spelling, and punctuation that were not noted in review of the chart prior to signing ED Disposition - Plan for ED Patient: Disposition: Psychiatric Hospital or Unit Diagnosis: Depression, Suicide gesture Referrals: Abdirashid Vazquez DO [Primary Care Provider] -
[2018-11-23 23:49] LABS: Bacteria 0 SEEN /hpf (None Seen); Mucous, Urine 0 SEEN /hpf (<or=2+)
[2018-11-23 23:51] LABS: Color, Urine Amber (Yellow); Glucose, Dipstick Normal (Normal); Ketone-Dipstick 15 mg/dl (Negative); Leukocyte Esterase-Dipstick 100 /ul (Negative); Nitrite-Dipstick Negative (Negative); Occult Blood-Urine 250 /ul (Negative); Protein-Dipstick 100 mg/dl (Negative); Urine Bilirubin Dipstick 1 mg/dL (Negative); Urine Clarity Sl. Cloudy (Clear); Urine Urobilinogen 4 mg/dl (Normal)
[2018-11-23] MEDS: 0.9% Normal Saline 1,000 ML 1000 ML IV (23:59)
[2018-11-24] VITALS (8 sets, daily range): BP systolic 114–140; BP diastolic 68–93; PULSE 94–110; RESP 17–24; O2SAT 95–97
[2018-11-24 00:02] LABS: White Blood Cells 5-10 SEEN /hpf (0-5)
[2018-11-24 00:02] LABS: Absolute Lymphocyte Count 1.67 X10^3/uL (0.83-4.51); Absolute Neutrophil Count 4.7 X10^3/uL (2.0-7.7); Basophil# 0.05 X10^3/uL; Basophil% 0.7 % (0-1); Eosinophil# 0.02 X10^3/uL; Eosinophils% 0.3 % (0-5); Hematocrit 41.5 % (37-47); Hemoglobin 14.4 g/dL (12.0-15.0); Lymphocyte # 1.67 X10^3/ul (4.0); Lymphocyte % 23.9 % (19-41); Mean Corp Hgb Conc 34.7 g/dL (32-36); Mean Corpuscular Hgb 29.6 pg (27.0-32.0); Mean Corpuscular Volume 85.2 fL (81-99); Mean Platelet Vol. 9.3 fl (6.2-12.0); Monocyte# 0.54 X10^3/uL; Monocyte% 7.7 % (0-10); NRBC Flagged by Analyzer 0 % (0-5); Neutrophil # 4.67 X10^3/uL (2.7-7.7); Neutrophil % 66.8 % (47-70); Platelet Count 319 K/mm3 (150-450); RBC Distribution Width CV 12.3 % (11.6-14.6); Red Blood Count 4.87 M/mm3 (4.2-5.4)
[2018-11-24 00:03] LABS: Red Blood Cells-Urine 0-5 SEEN /hpf (0-5); Squamous Epithelial Cells - UA > 100 SEEN /hpf (5-10)
[2018-11-24 00:10] LABS: Allen Test POS; Base Excess -3 mmol/L (-2 to +2); Bicarbonate 20.9 mmol/L (22-26); Blood Gas Specimen Type ART; O2 Delivery Device Room Air; PO2 101 mmHG (75-100); SITE R Radial; SO2 98 % (95-99); Time Given 2355; Total Carbon Dioxide 22 mmol/L; pCO2 29.6 mmHg (35-45); pH 7.46 (7.35-7.45)
[2018-11-24 00:18] LABS: Acetaminophen (Tylenol) Level < 2.0 ug/mL (10.0-30.0); Alcohol, Blood (Medical)-Serum < 3.0 mg/dL; Salicylate < 1.7 mg/dL (2.8-20.0)
[2018-11-24 00:20] LABS: Internal QC Validated? YES +Cl - CLEAR BKGD; Pregnancy, Serum, hCG Quali. NEGATIVE Negative
[2018-11-24 00:31] LABS: Anion Gap 9 (5-15); BUN 8 mg/dL (7-18); BUN/Creat Ratio 8.5 RATIO (10-20); Calcium,Total 8.6 mg/dL (8.5-10.1); Chloride 108 mmol/L (98-107); Creatinine, Serum 0.94 mg/dL (0.55-1.02); EST Glomerular Filtration Rate 72 mL/min (>60); Est Glom Filt Rate - Afr Amer 87 mL/min (>60); Glucose 98 mg/dL (74-106); Potassium 3.2 mmol/L (3.5-5.1); Sodium Level 139 mmol/L (136-145)
[2018-11-24 00:34] LABS: Amphetamine Urine VISTA NEGATIVE (<1000 ng/mL); Barbiturate Urine VISTA NEGATIVE (< 200 ng/mL); Benzodiazepine Urine VISTA POSITIVE (< 200 ng/mL); Cocaine Urine VISTA NEGATIVE (< 300 ng/mL); Ecstacy Urine VISTA NEGATIVE (< 500 ng/mL); Methadone Urine VISTA NEGATIVE (< 300 ng/mL); PCP Urine VISTA NEGATIVE (< 25 ng/mL); THC Urine VISTA NEGATIVE (< 50 ng/mL); Vista UDS pH Range 6
[2018-11-24 03:54] LABS: Acetaminophen (Tylenol) Level < 2.0 ug/mL (10.0-30.0); Salicylate < 1.7 mg/dL (2.8-20.0)
--- NOTE | 2018-11-24 04:02 | NURSING ---
CALLED CRISIS AT [phone]
--- NOTE | 2018-11-24 05:52 | ED.RN ---
SPOKE WITH MD, PT DOES NOT NEED CARDIAC MONITORING.
--- NOTE | 2018-11-24 06:54 | NURSING ---
CRISIS CALLED. [facility] REPORT [phone]
--- NOTE | 2018-11-24 07:47 | NURSING ---
0737 CALLED [facility], TRANSPORT WOULD BE AFTER ANOTHER SQUAD GOES TO SAME HOSPITAL [id number] CALLED [facility]. ETA IS 30 MIN
--- NOTE | 2018-11-24 07:52 | ED.RN ---
REPORT CALLED TO [facility], KEIRY WHELAN RECEIVED REPORT. RECEIVING NURSE WAS INFORMED ALSO OF ETA FOR TRANSPORTING [facility] ARRIVAL TO [facility] AND APPROXIMATE TIME OF ARRIVAL TO [facility].
[2018-11-24] MEDS: levETIRAcetam 1,000 MG Tablet 1000 MG PO (08:26)
[2018-11-24] MEDS: ALPRAZolam 0.5 MG Tablet 2 MG PO (08:40)
== END 2018-11-24 08:45 ==
PROVIDERS: Emergency Provider Emergency Medicine; Family Provider Student in an Organized Health Care Education/Training Program; PCP Student in an Organized Health Care Education/Training Program
DX: F32.9 Major depressive disorder, single episode, unspecified (principal); G40.909 Epilepsy, unspecified, not intractable, without status epilepticus; T39.312A Poisoning by propionic acid derivatives, intentional self-harm, initial encounter; T39.012A Poisoning by aspirin, intentional self-harm, initial encounter; T39.1X2A Poisoning by 4-Aminophenol derivatives, intentional self-harm, initial encounter; Y92.9 Unspecified place or not applicable
CPT/HCPCS: 36415; 36600; 80048; 80307; 80320; 80329; 81001; 82803; 84703; 85025; 93005; 99285; J7030; A4216; G0480

== ENCOUNTER 2019-01-09 17:54 | Observation (INO) | payer MEDICARE, MEDICAID, SELFPAY ==
[2019-01-09] VITALS (8 sets, daily range): BP systolic 108–152; BP diastolic 65–95; PULSE 83–116; RESP 13–16; TEMP 36.6; O2SAT 98–99; BMI 52.3; BMI 54.6; BMI 54.7
--- NOTE | 2019-01-09 18:43 | EKG12_ITS ---
Test Reason : Blood Pressure : / mmHG Vent. Rate : 095 BPM Atrial Rate : 095 BPM P-R Int : 158 ms QRS Dur : 104 ms QT Int : 396 ms P-R-T Axes : 015 035 018 degrees QTc Int : 497 ms Normal sinus rhythm Cannot rule out Inferior infarct , age undetermined Abnormal ECG Confirmed by CRISTINO ARCE, VINEET ([id number]), copy editor MILY SHAH ([id number]) on 01/14/2019 8:32:16 AM Referred By: Berta Kamara Confirmed By:RUBÉN GREGG MD
--- NOTE | 2019-01-09 18:45 | ED.DCSUM_ITS ---
- ER Visit Summary Date of Service: 01/09/19 Chief Complaint: Overdose History of Present Illness: The patient is a 33 F presenting after intentional overdose. Patient reportedly took a handful of Seroquel just prior to arrival. According to police she stated that she had no reason to live. She stated that everyone lies to her and no one believes her. She feels her family and her counselor do not take her seriously. It is unknown how many Seroquel tablets she took. She states she also took Aleve. She is drowsy on arrival. Physical Examination: Vitals are stable. Patient is afebrile. Alert no acute distress. HEENT exam is unremarkable. Neck is supple. Lungs are clear and equal bilaterally. Heart is regular rate and rhythm. Abdomen is soft nontender nondistended. Extremities are unremarkable. Skin is warm and dry. No focal neurologic deficit. Opens eyes to voice. Follows commands. Remainder of exam is unremarkable. Emergency Department Course and Treatment: Patient was given IV fluids. EKG is sinus rhythm rate of 95. CBC, chemistries unremarkable other than potassium 3.3. Salicylate level negative. Tylenol level negative. Alcohol level negative. hCG negative. Urine tox is pending. Patient continues to be arousable but drowsy. Discussed with the hospitalist for observation. Disposition: Observation Impression: Intentional Seroquel overdose This note was generated with [employer] dictation software. It may contain incorrect words, spelling, and punctuation that were not noted in review of the chart prior to signing ED Disposition - Plan for ED Patient: Referrals: Abdirashid Vazquez DO [Primary Care Provider] -
[2019-01-09 19:10] LABS: Absolute Lymphocyte Count 1.85 X10^3/uL (0.83-4.51); Absolute Neutrophil Count 4.5 X10^3/uL (2.0-7.7); Basophil# 0.04 X10^3/uL; Basophil% 0.6 % (0-1); Eosinophil# 0.03 X10^3/uL; Eosinophils% 0.4 % (0-5); Hematocrit 39.6 % (37-47); Hemoglobin 13.7 g/dL (12.0-15.0); Internal QC Validated? YES +Cl - CLEAR BKGD; Lymphocyte # 1.85 X10^3/ul (4.0); Lymphocyte % 26.7 % (19-41); Mean Corp Hgb Conc 34.6 g/dL (32-36); Mean Corpuscular Volume 86.8 fL (81-99); Mean Platelet Vol. 9.5 fl (6.2-12.0); Monocyte% 7.2 % (0-10); NRBC Flagged by Analyzer 0 % (0-5); Neutrophil # 4.49 X10^3/uL (2.7-7.7); Neutrophil % 64.7 % (47-70); Platelet Count 269 K/mm3 (150-450); Pregnancy, Serum, hCG Quali. NEGATIVE Negative; RBC Distribution Width CV 12.4 % (11.6-14.6); RBC Distribution Width SD 39.3 fl (35.1-43.9); Red Blood Count 4.56 M/mm3 (4.2-5.4); White Blood Count 6.9 K/mm3 (4.4-11.0)
[2019-01-09] MEDS: 0.9% Normal Saline 1,000 ML 999 ML IV (19:10)
[2019-01-09 19:15] LABS: Anion Gap 10 (5-15); BUN 9 mg/dL (7-18); BUN/Creat Ratio 10.4 RATIO (10-20); Calcium,Total 8.8 mg/dL (8.5-10.1); Chloride 108 mmol/L (98-107); Creatinine, Serum 0.87 mg/dL (0.55-1.02); EST Glomerular Filtration Rate 79 mL/min (>60); Est Glom Filt Rate - Afr Amer 96 mL/min (>60); Estimated Creatinine Clearance 77.94 ml/min; Glucose 113 mg/dL (74-106); Potassium 3.3 mmol/L (3.5-5.1); Sodium Level 140 mmol/L (136-145)
[2019-01-09 19:40] LABS: Acetaminophen (Tylenol) Level < 2.0 ug/mL (10.0-30.0); Alcohol, Blood (Medical)-Serum < 3.0 mg/dL; Salicylate < 1.7 mg/dL (2.8-20.0)
--- NOTE | 2019-01-09 20:42 | PCM.HP.STD ---
Problem List (1) Suicide attempt by drug ingestion Status: Acute Qualifiers: Encounter type: initial encounter Qualified Code(s): T50.902A - Poisoning by unspecified drugs, medicaments and biological substances, intentional self-harm, initial encounter (2) Anxiety and depression Status: Chronic (3) Bipolar disorder Status: Chronic Qualifiers: Active/Remission status: remission status unspecified Qualified Code(s): F31.9 - Bipolar disorder, unspecified (4) Morbid obesity Status: Chronic (5) Hirsutism Status: Chronic (6) Polycystic ovarian syndrome Status: Chronic (7) Seizure Status: Chronic History of Present Illness Date of Admission: 01/09/19 Chief Complaint: Suicide attempt, OD The patient is a 33 y/o F w/ PMHx: Bipolar Disorder, Prior Suicide Attempts, Seizure Disorder, Hirsutism, Polycystic ovarian syndrome, Morbid Obesity who presents to the [facility] ED on 01/09/19 with history of purposeful overdose, noted to have taken several Seroquel and possibly alleve prior to arrival, noting to police that she has no reason to live as believes that her family and her counselor do not take her seriously. She was unable to give exact amounts of the medications she overdosed with and was lethargic upon ED presentation, some improvement upon evaluation with ability to wake up with stimuli and answer some questions. Patient upon ED presentation was noted be very drowsy. Work-up in the ED included T 97.8, heart rate 83, BP 152/95 initially with repeat 108/65, respiratory rate 13, 98% on room air, unremarkable CBC, BMP with potassium 3.3, chloride 108, glucose 113, salicylate less than 1.7, acetaminophen less than 2, ethyl alcohol less than 3, urine drug screen and liver profile pending. In the ED patient missed her normal saline. Past Medical History Past Medical History (Chronic Problems): Chronic Problems (Last Reviewed 10/30/17 @ 11:41 by Emily Ortega) Anxiety and depression (Chronic) Bipolar disorder (Chronic) Morbid obesity (Chronic) Hirsutism (Chronic) Polycystic ovarian syndrome (Chronic) Depression (Chronic) Seizure (Chronic) Medical History: Medical History (Last Reviewed 10/30/17 @ 11:41 by Emily Ortega) Anxiety and depression F41.8 History of hysteroscopy Z98.890 Allergies phenobarbital Allergy (Verified 11/23/18 23:35) Unknown Home Medications: Ambulatory Orders Medication Instructions Recorded levETIRAcetam tablet [Keppra 1,000 mg PO BREAKFAST 05/24/15 tablet] levETIRAcetam tablet [Keppra 500 mg PO BID 11/12/15 tablet] Amitriptyline HCl 4 tab PO QHS PRN PRN 12/12/16 Biotin 1 tab PO DAILY 09/06/17 Ferrous Sulfate [Iron] 1 tab PO TID 09/06/17 ALPRAZolam [Xanax] 2 mg PO TID PRN PRN 09/08/17 Cholecalciferol (VIT D3) [Vitamin 2,000 unit PO DAILY 09/05/18 D] Medroxyprogesterone Acetate 10 mg PO DAILY 09/05/18 [Provera] Surgical History: Surgical History (Last Reviewed 10/30/17 @ 11:41 by Emily Ortega) H/O dilation and curettage Z98.890 partial labotomy Surgical History: - - D&C, partial lobotomy. Psychiatric History: Anxiety, Bipolar, Depression, Prior suicide attempt ALLOPATHIC DOCTOR History: No pertinent ALLOPATHIC DOCTOR history Lives: Roommate Smoking Status: Current every day smoker Tobacco Use: Cigarettes Alcohol: Occasional Drugs: None - *Family History Maternal Family History: Family History (Last Reviewed 10/30/17 @ 11:41 by Emily Ortega) Mother Heart disease History Items: Heart Disease Paternal Family History: Family History (Last Reviewed 10/30/17 @ 11:41 by Emily Ortega) Mother Heart disease History Items: Heart Disease Review of Systems Constitutional: Reports: Fatigue. Denies: Chills, Fever, Weight Change HEENT: Denies: Head Aches, Sinus Congestion, Sinus Drainage Cardiovascular: Denies: Chest Pain, Palpitations Respiratory: Denies: Cough, Shortness of breath at rest, Sputum production Gastrointestinal: Denies: Abdominal Pain, Nausea, Vomiting Genitourinary: Denies: Dysuria Musculoskeletal: Reports: Joint Pain. Denies: Joint Tenderness Skin: Denies: Rash, Wounds Neurological: Reports: Confusion. Denies: Focal weakness, Numbness, Tingling Psychiatric: Reports: Anxiety, Depression, Suicidal Ideations. Denies: Homicidal Ideations Hematologic/ Lymphatic: Reports: Anemia. Denies: Easy Bruising, Easy Bleeding Comment: Patient waking up, able to give ROS but still very fatigued and lethargic, some information per police report. VTE Information - Inpt Only VTE Present on Admission: No VTE Mechan Device Prophylaxis: SCD's VTE Pharm Prophylaxis ordered?: Yes Patient Problems: Active and Suspected Problems (Last Reviewed 10/30/17 @ 11:41 by Emily Ortega) Suicide attempt by drug ingestion (Acute) Subjective: Seated upright, will laying in the ED bed, does awaken to some stimuli but still very fatigued and lethargic. Objective: Physical Examination: General: awakens to some stimuli, not markedly alert, not answering orientation questions currently but mental status improving, intermittently cooperative, does fall asleep easily, seated upright in the ED bed. Skin: normal color, turgor, no icterus, cyanosis. HEENT: AT/NC, EOMI although difficult given ongoing lethargy, PERRLA, dry MM, no carotid bruits or JVD noted, hirsutism. Lungs: CTA bilaterally, moderate effort, moderate decrease BL bases, no rales, ronchi or wheezing. Heart: Mildly tachycardic with regular rhythm; no gallop, rub audible. Abdomen: soft, morbidly obese, NTTP, ND, normal BS, no HSM; however, habitus makes examination difficult. Extremities: no cyanosis, clubbing, mild bilateral ankle edema. Neurological: awakens to some stimuli, not markedly alert, not answering orientation questions currently but mental status improving, intermittently cooperative, does fall asleep easily, seated upright in the ED bed; cognitive function not baseline intact; pupils equally reactive to light and accomodation; cranial nerves II-XII grossly normal although difficult examination given lethargy, moving all 4 extremities, strength accordingly moderately to severely global decrease secondary to acute presentation. Psychiatric: affect appears flat, lethargic, does admit to suicidal ideations, currently no acute evidence of anxiety feelings. - Physical Exam Vitals/I&O's: Vital Signs Temp Pulse Resp BP Pulse Ox 97.8 F 100 13 108/65 98 01/09/19 17:58 01/09/19 19:06 01/09/19 17:58 01/09/19 20:08 01/09/19 20:08 Oxygen Delivery Method Room Air Weight: 305 lb Body Mass Index (BMI) 52.3 Finger Stick Blood Glucose 105 Laboratory Results 01/09/19 18:08: WBC 6.9, RBC 4.56, Hgb 13.7, Hct 39.6, MCV 86.8, MCH 30.0, MCHC 34.6, RDW Std Deviation 39.3, RDW Coeff of Thomas 12.4, Plt Count 269, MPV 9.5, Immature Gran % (Auto) 0.400, Neut % (Auto) 64.7, Lymph % (Auto) 26.7, [place] % (Auto) 7.2, Eos % (Auto) 0.4, Baso % (Auto) 0.6, Absolute Neuts (auto) 4.5, Absolute Lymphs (auto) 1.85, Nucleated RBC % 0 01/09/19 18:08: Sodium 140, Potassium 3.3 L, Chloride 108 H, Carbon Dioxide 22.0, Anion Gap 10, BUN 9, Creatinine 0.87, Estim Creat Clear Calc 77.94, Est GFR (MDRD) Af Amer 96, Est GFR (MDRD) Non-Af 79, BUN/Creatinine Ratio 10.4, Glucose 113 H, Calcium 8.8 01/09/19 18:08: Salicylates < 1.7 L, Acetaminophen < 2.0 L, Ethyl Alcohol < 3.0 01/09/19 18:08: Serum , Qual NEGATIVE Assessment/Plan All Active Problems (Last Reviewed 10/30/17 @ 11:41 by Emily Ortega) Salicylate overdose (Acute) Encephalopathy acute (Acute) Suicide attempt by drug ingestion (Acute) Abnormal uterine bleeding (Acute) Suicidal behavior (Acute) Unresponsive state (Acute) The patient is a 33 y/o F w/ PMHx: Bipolar Disorder, Prior Suicide Attempts, Seizure Disorder, Hirsutism, Polycystic ovarian syndrome, Morbid Obesity who presents to the [facility] ED on 01/09/19 with history of purposeful overdose, noted to have taken several Seroquel and possibly alleve prior to arrival. (1) Suicide Attempt with Purposeful Ingestion Seroquel, Alleve: Given patient airway is stable, vital signs stable, transient hypotension in the emergency room but improved will admit to medical surgical floor on telemetry, maintain on suicide precautions with sitter, aspiration and fall precautions, n.p.o. status until further improvement in mental status, continue to aggressively hydrate, pending hepatic profile and urine drug screen, repeat CBC, CMP in a.m., if clinically improved and appropriate would consult crisis at that time for psychiatric facility transfer. (2) Bipolar disorder with prior suicide attempts: Holding oral regimen given lethargy with recent overdose, crisis will need to be consulted once medically appropriate. (3) Seizure Disorder: Unclear last dosing of her Keppra, will transition to IV regimen given acute presentation. (4) Morbid Obesity: Weight loss and lifestyle changes encouraged. (5) Fe Deficiency Anemia: Holding iron supplementation, CBC requested. (6) GERD: Famotidine IV. (7) DVT Prophylaxis: SCDs, lovenox. Code Visit OBSV E&M: 23819 Initial observation care L3
[2019-01-09 21:07] LABS: AST(SGOT) 20 U/L (15-37); Alanine Aminotransfer ALT/SGPT 38 U/L (13-56); Albumin, Serum 3.8 g/dL (3.2-5.0); Alkaline Phosphatase 67 U/L (45-117); Bilirubin, Direct 0.18 mg/dL (0.00-0.30); Globulin 3.4 g/dL (2.2-4.2); Protein, Total 7.2 g/dL (6.4-8.2)
[2019-01-10] VITALS (11 sets, daily range): BP systolic 121–143; BP diastolic 73–83; PULSE 101–120; RESP 16–18; TEMP 36.6–36.9; O2SAT 92–98
[2019-01-10] MEDS: Famotidine 200 MG/20 ML MDV 20 MG in 0.9% Normal Saline (Pres. free 8 ML 300 MG IV ×3 (00:44→22:07)
[2019-01-10] MEDS: 0.9% Normal Saline 1,000 ML 150 ML IV ×2 (00:45→08:39)
[2019-01-10] MEDS: Potassium Chloride 10mEq/100mL 10 MEQ/100 ML IV.SOLN. 100 MEQ IV BOLUS ×4 (00:45→03:23)
[2019-01-10 06:21] LABS: Absolute Lymphocyte Count 0.79 X10^3/uL (0.83-4.51); Absolute Neutrophil Count 2.8 X10^3/uL (2.0-7.7); Basophil# 0.02 X10^3/uL; Basophil% 0.5 % (0-1); Eosinophil# 0.02 X10^3/uL; Eosinophils% 0.5 % (0-5); Hematocrit 36.9 % (37-47); Hemoglobin 12.1 g/dL (12.0-15.0); Lymphocyte # 0.79 X10^3/ul (4.0); Lymphocyte % 20.2 % (19-41); Mean Corp Hgb Conc 32.8 g/dL (32-36); Mean Corpuscular Hgb 29.4 pg (27.0-32.0); Mean Corpuscular Volume 89.6 fL (81-99); Mean Platelet Vol. 9.2 fl (6.2-12.0); Monocyte# 0.27 X10^3/uL; Monocyte% 6.9 % (0-10); NRBC Flagged by Analyzer 0 % (0-5); Neutrophil # 2.77 X10^3/uL (2.7-7.7); Neutrophil % 70.9 % (47-70); Platelet Count 230 K/mm3 (150-450); RBC Distribution Width CV 12.9 % (11.6-14.6); RBC Distribution Width SD 42.2 fl (35.1-43.9); Red Blood Count 4.12 M/mm3 (4.2-5.4); White Blood Count 3.9 K/mm3 (4.4-11.0)
[2019-01-10] MEDS: Enoxaparin 40 MG/0.4 ML Syringe SC (06:21)
[2019-01-10 06:43] LABS: ALB/GLOB Ratio 1.1 RATIO (0.9-2.4); AST(SGOT) 17 U/L (15-37); Alanine Aminotransfer ALT/SGPT 31 U/L (13-56); Albumin, Serum 3.1 g/dL (3.2-5.0); Alkaline Phosphatase 64 U/L (45-117); Anion Gap 9 (5-15); BUN 12 mg/dL (7-18); BUN/Creat Ratio 14.7 RATIO (10-20); Chloride 110 mmol/L (98-107); Creatinine, Serum 0.82 mg/dL (0.55-1.02); EST Glomerular Filtration Rate 84 mL/min (>60); Est Glom Filt Rate - Afr Amer 102 mL/min (>60); Estimated Creatinine Clearance 79.21 ml/min; Globulin 2.7 g/dL (2.2-4.2); Glucose 93 mg/dL (74-106); Potassium 3.9 mmol/L (3.5-5.1); Protein, Total 5.8 g/dL (6.4-8.2); Sodium Level 141 mmol/L (136-145)
[2019-01-10] MEDS: levETIRAcetam IV 1,000 MG/100 ML BAG 400 MG IV (09:17)
--- NOTE | 2019-01-10 09:25 | PCM.PROGNOTE ---
Patient Problems: Active and Suspected Problems (Last Reviewed 10/30/17 @ 11:41 by Emily Ortega) Suicide attempt by drug ingestion (Acute) Subjective: Chief complaint: Follow-up after admission for drug overdose and suicidal attempt. Patient seen and examined. No acute events overnight. This morning, she is very sleepy and lethargic, opening her eyes to repeated verbal stimuli. She was not able to answer any questions. She is afebrile, heart rate has been around 100, blood pressure stable, pulse ox is 92% on room air. - Physical Exam Vitals/I&O's: Vital Signs Temp Pulse Resp BP Pulse Ox 97.8 F 101 H 16 121/73 H 92 01/10/19 08:40 01/10/19 08:40 01/10/19 08:40 01/10/19 08:40 01/10/19 08:40 Oxygen Delivery Method Room Air Weight: 308 lb 10.354 oz Body Mass Index (BMI) 54.6 Finger Stick Blood Glucose 105 Intake and Output for Last 24 Hours 01/08/19 01/09/19 01/10/19 23:59 23:59 23:59 Intake Total 1000 / 1000 1412.50 / 1412.50 Output Total 0 / 0 Balance 1000 / 1000 1412.50 / 1412.50 General: Lethargic - Sleepy but arousable, opening eyes to repetitive verbal stimuli. HEENT: Atraumatic, PERRLA, EOMI, Normocephalic Oral: Moist Mucosa, No Gingival or Mucosal Lesions/ Ulcerations Neck: Supple, No JVD, Negative Carotid Bruits, Trachea Midline, Thyroid Normal Size and Texture Lungs: Clear to auscultation, Normal air movement, No rhonchi, No wheeze, No rales, Diminished Cardiovascular: Regular rate, Regular Rhythm, Normal S1, Normal S2, PMI Normal Abdomen: Bowel Sounds Present, Soft, Non Tender, Non-Distended, No Hepato-splenomegaly, Obese Extremities: No clubbing, No cyanosis, No edema Skin: No rashes, No breakdown Lymphatic: No Cervical, Supraclavicular, or Inguinal Adenopathy Neurological: Cranial nerves II-XII grossly intact, - - Moving all limbs. Psych/Mental Status: - - Not able to assess, patient is sleepy and lethargic. Laboratory Results 01/09/19 18:08: WBC 6.9, RBC 4.56, Hgb 13.7, Hct 39.6, MCV 86.8, MCH 30.0, MCHC 34.6, RDW Std Deviation 39.3, RDW Coeff of Thomas 12.4, Plt Count 269, MPV 9.5, Immature Gran % (Auto) 0.400, Neut % (Auto) 64.7, Lymph % (Auto) 26.7, [place] % (Auto) 7.2, Eos % (Auto) 0.4, Baso % (Auto) 0.6, Absolute Neuts (auto) 4.5, Absolute Lymphs (auto) 1.85, Nucleated RBC % 0 01/09/19 18:08: Sodium 140, Potassium 3.3 L, Chloride 108 H, Carbon Dioxide 22.0, Anion Gap 10, BUN 9, Creatinine 0.87, Estim Creat Clear Calc 77.94, Est GFR (MDRD) Af Amer 96, Est GFR (MDRD) Non-Af 79, BUN/Creatinine Ratio 10.4, Glucose 113 H, Calcium 8.8 01/09/19 18:08: Salicylates < 1.7 L, Acetaminophen < 2.0 L, Ethyl Alcohol < 3.0 01/09/19 18:08: Serum , Qual NEGATIVE 01/09/19 18:08: Total Bilirubin 0.70, Direct Bilirubin 0.18, AST 20, ALT 38, Alkaline Phosphatase 67, Total Protein 7.2, Albumin 3.8, Globulin 3.4 01/10/19 05:46: WBC 3.9 L, RBC 4.12 L, Hgb 12.1, Hct 36.9 L, MCV 89.6, MCH 29.4, MCHC 32.8, RDW Std Deviation 42.2, RDW Coeff of Thomas 12.9, Plt Count 230, MPV 9.2, Immature Gran % (Auto) 1.000 H, Neut % (Auto) 70.9 H, Lymph % (Auto) 20.2, [place] % (Auto) 6.9, Eos % (Auto) 0.5, Baso % (Auto) 0.5, Absolute Neuts (auto) 2.8, Absolute Lymphs (auto) 0.79 L, Nucleated RBC % 0 01/10/19 05:46: Sodium 141, Potassium 3.9, Chloride 110 H, Carbon Dioxide 22.0, Anion Gap 9, BUN 12, Creatinine 0.82, Estim Creat Clear Calc 79.21, Est GFR (MDRD) Af Amer 102, Est GFR (MDRD) Non-Af 84, BUN/Creatinine Ratio 14.7, Glucose 93, Calcium 8.0 L, Total Bilirubin 0.80, AST 17, ALT 31, Alkaline Phosphatase 64, Total Protein 5.8 L, Albumin 3.1 L, Globulin 2.7, Albumin/Globulin Ratio 1.1 Current Medications Acetaminophen (Tylenol) 650 mg PO Q6H PRN PRN PRN Reason: Non-cardiac pain () Al Hydroxide/Mg Hydroxide (Mylanta Ii) 15 - 30 ml PO Q4H PRN PRN PRN Reason: INDIGESTION Albuterol Sulfate (Ventolin Aerosols) 2.5 mg INHALATION Q2H PRN PRN PRN Reason: dyspnea, wheezing Dextrose (D50w Syringe) 0 gm IV X1 PRN; Protocol PRN Reason: Hypoglycemia Enoxaparin Sodium (Lovenox) 40 mg SC DAILY@0600 [facility] Last Admin: 01/10/19 06:21 Dose: 40 mg Documented by: Glucagon () 1 mg IM .X1 PRN PRN Reason: Hypoglycemia Hydralazine HCl (Apresoline Iv) 10 mg IV Q4H PRN PRN PRN Reason: SBP > 160 Levetiracetam () 1,000 mg in 100 mls @ 400 mls/hr IV DAILY [facility] Last Admin: 01/10/19 09:17 Dose: 400 mls/hr Documented by: Levetiracetam 500 mg/ Sodium (Chloride) 105 mls @ 400 mls/hr IV 2200 [facility] Last Infusion: 01/10/19 04:38 Dose: Infused Documented by: Sodium Chloride () 1,000 mls @ 150 mls/hr IV .Q6H40M [facility] Last Infusion: 01/10/19 09:17 Dose: 0 mls/hr Documented by: Famotidine 20 mg/ Sodium (Chloride) 10 mls @ 300 mls/hr IV Q12 [facility] Last Infusion: 01/10/19 00:52 Dose: Infused Documented by: Magnesium Hydroxide (Milk Of Magnesia) 30 ml PO DAILY PRN PRN Reason: Constipation Nutritional Formula (Lactose Free) (Ensure Enlive) 120 ml PO 4X/DAY VIKASH Medical Necessity - Tobacco Use Smoking Status: Current every day smoker Tobacco Use: Cigarettes Assessment/Plan All Active Problems (Last Reviewed 10/30/17 @ 11:41 by Emily Ortega) Encephalopathy acute (Acute) Suicide attempt by drug ingestion (Acute) This is a 33 years old female patient presented to the emergency room after overdosing on Seroquel and Aleve attempting suicide. #1 drug overdose: Patient took unknown number of Seroquel tablets and reportedly, she took Aleve as well. Blood salicylate, acetaminophen and alcohol were unremarkable. Routine blood work was remarkable for mild hypokalemia which was replaced and corrected. LFTs normal. Serum test is negative. Urine drug screen ordered. Her vital signs are stable. Plan to continue IV fluids, IV Pepcid, continue other treatment. #2 suicide attempt: With past history of suicide attempts as well. Patient had a history of depression, anxiety and bipolar disorder. Plan to consult mental health crisis when patient stable. #3 acute encephalopathy: Secondary to drug overdose. Patient opens her eyes for verbal stimuli but she is very sleepy and lethargic. No focal deficit on physical exam. Plan as above. #4 anxiety/depression: Hold medications for now. #5 bipolar disorder: Keep holding her medications for now. #6 polycystic ovarian syndrome/hirsutism: Stable, no acute issues. #7 seizure disorder: Continue IV Keppra. #8 DVT prophylaxis: Subcu Lovenox. This note was generated with [employer]ation software. It may contain incorrect words, spelling, and punctuation that were not noted in checking the note before signing. Code Visit OBSV E&M: 96084 Subsequent observation care L2
--- NOTE | 2019-01-10 09:32 | NURSING ---
called [facility] to verify medications, they were able to verify prescribed meds but unable to verify any over the counter medications. med list updated as able.
--- NOTE | 2019-01-10 09:37 | CASEMGMT ---
Social Work Note Pt had suicide attempt and will need to be evaluated by crisis once medically cleared. Per physician pt is not medically cleared yet. SW to continue to follow. Sabina Patten SERVICE DESK MANAGER, INTEGRATION DIRECTOR
[2019-01-10 10:09] LABS: Amphetamine Urine VISTA NEGATIVE (<1000 ng/mL); Barbiturate Urine VISTA NEGATIVE (< 200 ng/mL); Benzodiazepine Urine VISTA POSITIVE (< 200 ng/mL); Cocaine Urine VISTA NEGATIVE (< 300 ng/mL); Ecstacy Urine VISTA NEGATIVE (< 500 ng/mL); Methadone Urine VISTA NEGATIVE (< 300 ng/mL); PCP Urine VISTA NEGATIVE (< 25 ng/mL); THC Urine VISTA NEGATIVE (< 50 ng/mL); Vista UDS pH Range 5
[2019-01-10] MEDS: 0.9% Normal Saline 1,000 ML 100 ML IV (16:19)
--- NOTE | 2019-01-10 20:15 | NURSING ---
Addendum entered by Kim Acevedo 01/10/19 20:17: explained to pt that have to ask dr if they want her to have her xanax before i can give it to her. will check with . awaiting crises to come and see pt for possible psych hospital transfer Original Note: pt refused vitals and assessment until she gets her xanax sitter in room for safety. charge loader aware
[2019-01-10] MEDS: ALPRAZolam 0.5 MG Tablet 2 MG PO (22:06)
--- NOTE | 2019-01-10 22:19 | NURSING ---
gave x1 dose xanax pt cooperative with assessment and vital signs. sitter remains in room
[2019-01-11] VITALS (9 sets, daily range): BP systolic 129–144; BP diastolic 86–91; PULSE 86–100; RESP 16–18; TEMP 36.3–36.9; O2SAT 97–99
[2019-01-11] MEDS: 0.9% Normal Saline 1,000 ML 100 ML IV (01:34)
--- NOTE | 2019-01-11 07:01 | NURSING ---
CALLED [facility] TO SEE WHEN COUNSELOR IS COMING TO ASSESS PT CRISES DIDNT COME IN LAST EVENING. ANSWERING SERVICE STATES THEY WILL PAGE KAMAR TO CALL NURSE BACK
[2019-01-11] MEDS: levETIRAcetam 500 MG Tablet 1000 MG PO (10:04)
[2019-01-11] MEDS: ALPRAZolam 0.5 MG Tablet 2 MG PO (10:05)
--- NOTE | 2019-01-11 10:23 | PN_ITS ---
Patient Problems: Active and Suspected Problems (Last Reviewed 10/30/17 @ 11:41 by Emily Ortega) Suicide attempt by drug ingestion (Acute) Subjective: Chief complaint: Follow-up after admission for drug overdose and suicide attempt. Patient seen and examined. No acute events overnight. This morning, she is fully alert, awake and noted x3. She has no complaints. Her vital signs are stable. - Physical Exam Vitals/I&O's: Vital Signs Temp Pulse Resp BP Pulse Ox 98.2 F 94 18 129/86 H 97 01/11/19 07:33 01/11/19 07:33 01/11/19 07:33 01/11/19 07:33 01/11/19 07:33 Oxygen Delivery Method Room Air Weight: 308 lb 10.354 oz Body Mass Index (BMI) 54.6 Finger Stick Blood Glucose 105 Intake and Output for Last 24 Hours 01/09/19 01/10/19 01/11/19 23:59 23:59 23:59 Intake Total 1000 / 1000 3078.34 / 4318.34 3040.00 / 3040.00 Output Total 400 / 3050 4050 / 4050 Balance 1000 / 1000 2678.34 / 1268.34 -1010.00 / -1010.00 General: Alert, Oriented x3, Cooperative, No apparent distress HEENT: Atraumatic, PERRLA, EOMI, Normocephalic Oral: Moist Mucosa, No Gingival or Mucosal Lesions/ Ulcerations Neck: Supple, No JVD, Negative Carotid Bruits, Trachea Midline, Thyroid Normal Size and Texture Lungs: Clear to auscultation, Normal air movement, No rhonchi, No wheeze, No rales Cardiovascular: Regular rate, Regular Rhythm, Normal S1, Normal S2, PMI Normal Abdomen: Bowel Sounds Present, Soft, Non Tender, Non-Distended, No Hepato- splenomegaly, Obese Extremities: No clubbing, No cyanosis, No edema Skin: No rashes, No breakdown, - - Hirsutism. Lymphatic: No Cervical, Supraclavicular, or Inguinal Adenopathy Neurological: Cranial nerves II-XII grossly intact, Motor Exam 5/5 strength throughout Psych/Mental Status: Flat Affect, Depressed, Alert and oriented to time, place, person, mood and affect Current Medications Acetaminophen (Tylenol) 650 mg PO Q6H PRN PRN PRN Reason: Non-cardiac pain (-12/20) Al Hydroxide/Mg Hydroxide (Mylanta Ii) 15 - 30 ml PO Q4H PRN PRN PRN Reason: INDIGESTION Albuterol Sulfate (Ventolin Aerosols) 2.5 mg INHALATION Q2H PRN PRN PRN Reason: dyspnea, wheezing Alprazolam (Xanax) 2 mg PO TID PRN PRN Reason: ANXIETY Last Admin: 01/11/19 10:05 Dose: 2 mg Documented by: Dextrose (D50w Syringe) 0 gm IV X1 PRN; Protocol PRN Reason: Hypoglycemia Enoxaparin Sodium (Lovenox) 40 mg SC DAILY@0600 [facility] Last Admin: 01/11/19 05:39 Dose: Not Given Documented by: Glucagon () 1 mg IM .X1 PRN PRN Reason: Hypoglycemia Hydralazine HCl (Apresoline Iv) 10 mg IV Q4H PRN PRN PRN Reason: SBP > 160 Famotidine 20 mg/ Sodium (Chloride) 10 mls @ 300 mls/hr IV Q12 [facility] Last Infusion: 01/10/19 22:09 Dose: Infused Documented by: Levetiracetam (Keppra Tablet) 500 mg PO QHS VIKASH Levetiracetam (Keppra Tablet) 1,000 mg PO BREAKFAST [facility] Last Admin: 01/11/19 10:04 Dose: 1,000 mg Documented by: Magnesium Hydroxide (Milk Of Magnesia) 30 ml PO DAILY PRN PRN Reason: Constipation Medical Necessity - Tobacco Use Smoking Status: Current every day smoker Tobacco Use: Cigarettes Assessment/Plan All Active Problems (Last Reviewed 10/30/17 @ 11:41 by Emily Ortega) Encephalopathy acute (Acute) Suicide attempt by drug ingestion (Acute) This is a 33 years old female patient presented to the emergency room after overdosing on Seroquel and Aleve attempting suicide. #1 drug overdose: Today, patient is alert and related x3. Her vital signs are stable. Patient took unknown number of Seroquel tablets and reportedly, she took Aleve as well. Blood salicylate, acetaminophen and alcohol were unremarkable. Routine blood work was remarkable for mild hypokalemia which was replaced and corrected. LFTs normal. Serum test is negative. Urine drug screen ordered. We are awaiting mental health crisis evaluation and recommendation. She is medically stable and she is stable to be transferred to a psychiatric facility if indicated. #2 suicide attempt: With past history of suicide attempts as well. Patient had a history of depression, anxiety and bipolar disorder. Plan as above. #3 acute encephalopathy: Secondary to drug overdose. Resolved. #4 anxiety/depression: Resume Xanax. #5 bipolar disorder: Keep holding her medications for now. #6 polycystic ovarian syndrome/hirsutism: Stable, no acute issues. #7 seizure disorder: DC IV Keppra, start oral Keppra. #8 DVT prophylaxis: Subcu Lovenox. This note was generated with [employer] dictation software. It may contain incorrect words, spelling, and punctuation that were not noted in checking the note before signing.
[2019-01-11] MEDS: Famotidine 200 MG/20 ML MDV 20 MG in 0.9% Normal Saline (Pres. free 8 ML 300 MG IV (10:24)
--- NOTE | 2019-01-11 12:01 | PCM.DC.SUM ---
Discharge Date and Diagnosis Date of Admission: 01/09/19 Date of Discharge: 01/11/19 - Primary Discharge Diagnosis Active and Suspected Problems (Last Reviewed 10/30/17 @ 11:41 by Emily Ortega) #1 drug overdose. #2 suicide attempt. #3 acute metabolic encephalopathy, resolved. - Secondary Discharge Diagnosis Chronic Problems (Last Reviewed 10/30/17 @ 11:41 by Emily Ortega) Anxiety and depression (Chronic) Bipolar disorder (Chronic) Morbid obesity (Chronic) Hirsutism (Chronic) Polycystic ovarian syndrome (Chronic) Depression (Chronic) Seizure (Chronic) Hospital Course and Treatment Consultations 01/10/19 16:35 Consult: Mental Health/Crisis Routine Reason for consult?: SUICIDAL IDEATIONS Date Notified:: 01/10/19 Time notified:: 16:37 Operations: None Procedures: None Summary of Care Provided: Patient seen and examined on the day of discharge and appeared to be stable to be transferred to inpatient psych facility. She has been alert and oriented x3 on the day of discharge and she has no complaints. Her vital signs were stable. The patient is a 33 year old F patient presented to the emergency room because she overdosed on Seroquel and Aleve attempting suicide this patient had a history of bipolar disorder, Depression. She took a handful of Seroquel with unknown number of tablets and also reportedly, she took unknown number of Aleve tablets. Upon admission, patient was very lethargic and sleepy and was difficult to arouse. Her blood salicylate level, blood acetaminophen and alcohol levels were unremarkable. Her routine blood work was remarkable for mild hypokalemia which was replaced and corrected. LFT was normal. Serum test was negative. Urine drug screen was positive for benzodiazepines but patient has been taking Xanax by prescription. Patient was treated with IV fluids and her mentation improved. She woke up and she remained alert and related x3. She was continued on IV Keppra for seizure disorder and after she woke up, she was started back on her regular dose of Keppra. Mental health crisis was consulted, evaluated the patient and recommended to transfer the patient for admission to inpatient psychiatric facility. Patient transferred to inpatient psychiatric facility for further treatment in a stable medical condition. - Physical Exam Vitals/I&O's: Vital Signs Temp Pulse Resp BP Pulse Ox 98.2 F 94 18 129/86 H 97 01/11/19 07:33 11/01/19 07:33 01/11/19 07:33 01/11/19 07:33 01/11/19 07:33 Oxygen Delivery Method Room Air Weight: 308 lb 10.354 oz Body Mass Index (BMI) 54.6 Finger Stick Blood Glucose 105 Intake and Output for Last 24 Hours 01/09/19 01/10/19 01/11/19 23:59 23:59 23:59 Intake Total 1000 / 1000 3078.34 / 4318.34 3050.00 / 3050.00 Output Total 400 / 3050 4050 / 4050 Balance 1000 / 1000 2678.34 / 1268.34 -1000.00 / -1000.00 General: Alert, Oriented x3, Cooperative, No apparent distress HEENT: Atraumatic, PERRLA, EOMI, Normocephalic Oral: Moist Mucosa, No Gingival or Mucosal Lesions/ Ulcerations Neck: Supple, No JVD, Negative Carotid Bruits, Trachea Midline, Thyroid Normal Size and Texture Lungs: Clear to auscultation, Normal air movement, No wheeze, No rales Cardiovascular: Regular rate, Regular Rhythm, Normal S1, Normal S2, No murmurs Abdomen: Bowel Sounds Present, Soft, Non Tender, Non-Distended, No Hepato-splenomegaly, Obese Extremities: No clubbing, No edema, - - Hirsutism. Skin: No rashes, No breakdown Lymphatic: No Cervical, Supraclavicular, or Inguinal Adenopathy Neurological: Cranial nerves II-XII grossly intact, Neuro grossly intact Psych/Mental Status: Appropriate, Flat Affect Current Medications Acetaminophen (Tylenol) 650 mg PO Q6H PRN PRN PRN Reason: Non-cardiac pain (-12/20) Al Hydroxide/Mg Hydroxide (Mylanta Ii) 15 - 30 ml PO Q4H PRN PRN PRN Reason: INDIGESTION Albuterol Sulfate (Ventolin Aerosols) 2.5 mg INHALATION Q2H PRN PRN PRN Reason: dyspnea, wheezing Alprazolam (Xanax) 2 mg PO TID PRN PRN Reason: ANXIETY Last Admin: 01/11/19 10:05 Dose: 2 mg Documented by: Dextrose (D50w Syringe) 0 gm IV X1 PRN; Protocol PRN Reason: Hypoglycemia Enoxaparin Sodium (Lovenox) 40 mg SC DAILY@0600 [facility] Last Admin: 01/11/19 05:39 Dose: Not Given Documented by: Glucagon () 1 mg IM .X1 PRN PRN Reason: Hypoglycemia Hydralazine HCl (Apresoline Iv) 10 mg IV Q4H PRN PRN PRN Reason: SBP > 160 Famotidine 20 mg/ Sodium (Chloride) 10 mls @ 300 mls/hr IV Q12 [facility] Last Infusion: 01/11/19 10:26 Dose: Infused Documented by: Levetiracetam (Keppra Tablet) 500 mg PO QHS [facility] Levetiracetam (Keppra Tablet) 1,000 mg PO BREAKFAST [facility] Last Admin: 01/11/19 10:04 Dose: 1,000 mg Documented by: Magnesium Hydroxide (Milk Of Magnesia) 30 ml PO DAILY PRN PRN Reason: Constipation Home Medications: Medications to take at Discharge levETIRAcetam tablet [Keppra tablet] 1,000 mg PO BREAKFAST 05/24/15 levETIRAcetam tablet [Keppra tablet] 500 mg PO QHS 11/12/15 Amitriptyline HCl 4 tab PO QHS PRN PRN 12/12/16 Biotin 1 tab PO DAILY 09/06/17 Ferrous Sulfate [Iron] 1 tab PO TID 09/06/17 ALPRAZolam [Xanax] 2 mg PO TID PRN PRN 09/08/17 Cholecalciferol (VIT D3) [Vitamin D] 2,000 unit PO DAILY 09/05/18 Medroxyprogesterone Acetate [Provera] 10 mg PO DAILY 09/05/18 Primary Care Physician: Abdirashid Vazquez DO [Primary Care Provider] - Disposition: Psych Hospital or Unit Minutes spent on discharge:: 26 Patient Condition:: Stable Medical Necessity - Tobacco Use Smoking Status: Current every day smoker Tobacco Use: Cigarettes Meaningful Use Info Meaningful Use Diagnoses (Choose all that apply): None applicable Code Visit OBSV E&M: 25803 Observation care discharge
--- NOTE | 2019-01-11 14:19 | CASEMGMT ---
Intro role of CM to patient and RUBY form explained re: Obs status. Lenora BSN RN ACM
--- NOTE | 2019-01-11 16:09 | CASEMGMT ---
Social work Note Per Charge Nurse pt has been accepted to [facility] and [facility] will arrange transportation. Plan: [facility] Sabina Patten OCTAVE BOARD ASSEMBLER, SLIP FILLER
--- NOTE | 2019-01-11 16:11 | NURSING ---
report called to Abimael RICCI @ [facility]
== END 2019-01-11 17:58 ==
LOC: ED 18:38 → MS3 21:06
PROVIDERS: Admitting Provider Family Medicine; Emergency Provider Emergency Medicine; Family Provider Student in an Organized Health Care Education/Training Program; PCP Student in an Organized Health Care Education/Training Program; Referring Provider Family Medicine; Visit Provider Hospitalist
DX: T43.592A Poisoning by other antipsychotics and neuroleptics, intentional self-harm, initial encounter (principal); R40.0 Somnolence; Y92.9 Unspecified place or not applicable; G93.41 Metabolic encephalopathy; F31.9 Bipolar disorder, unspecified; E66.01 Morbid (severe) obesity due to excess calories; F41.9 Anxiety disorder, unspecified; Z79.899 Other long term (current) drug therapy; Z68.43 Body mass index [BMI] 50.0-59.9, adult; Z71.3 Dietary counseling and surveillance; E28.2 Polycystic ovarian syndrome; L68.0 Hirsutism; G40.909 Epilepsy, unspecified, not intractable, without status epilepticus; F17.210 Nicotine dependence, cigarettes, uncomplicated; D50.9 Iron deficiency anemia, unspecified; K21.9 Gastro-esophageal reflux disease without esophagitis; E87.6 Hypokalemia
CPT/HCPCS: 36415; 80048; 80053; 80076; 80307; 80320; 80329; 84703; 85025; 93005; 96361; 96365; 96366; 96372; 96375; 96376; 99218; 99283; 99406; J7030; A4216; G0378; G0480; J3490

== ENCOUNTER 2019-06-18 14:00 | Inpatient (IN) | payer MEDICARE, MEDICAID, SELFPAY ==
[2019-01-09 21:40] VITALS: BMI 54.6
[2019-06-18] VITALS (15 sets, daily range): BP systolic 87–167; BP diastolic 61–106; PULSE 77–105; RESP 15–21; TEMP 36.2–36.8; O2SAT 92–99; BMI 51.1; BMI 51.2
--- NOTE | 2019-06-18 14:10 | EKG12_ITS ---
Test Reason : OD Blood Pressure : / mmHG Vent. Rate : 093 BPM Atrial Rate : 093 BPM P-R Int : 150 ms QRS Dur : 092 ms QT Int : 372 ms P-R-T Axes : 028 029 031 degrees QTc Int : 462 ms Normal sinus rhythm Normal ECG Confirmed by SALOME MORELAND MD ([id number]), legal editor TERRY SANCHEZ ([id number]) on 06/20/2019 9:42:34 AM Referred By: DARIAN Confirmed By:SALOME MORELAND MD
--- NOTE | 2019-06-18 14:21 | ED.DCSUM_ITS ---
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 When she answered yes she states that somehow the phone got disconnected and then a motorcycle police officer and the paramedics were at her door. She tells me that nothing else was going on. The patient has a long psychiatric history and has had numerous medication overdoses and attempt to harm herself. She has been hospitalized several times. Reportedly today the patient wanted to go to sleep so she states she took some amitriptyline around noon and not feeling tired she took some more. Initially she told EMS upwards of 6 but now states the initial bolus was 6 followed by some more in her hand but she did not really look at how many. She has had some intermittent nausea. She states that each time that she is tried to harm herself she has failed and does not believe that anything she has done today would actually cause serious harm to her. That was the end of our conversation and she informs me that she does not wish to speak anymore because everybody the hospital makes fun of her whenever she answers the questions. There was a report from nursing that the patient stated that her plan was to harm herself by taking her sleeping medication but that she is not wanting to harm herself at this very moment. Past Medical History - Allergies and Home Meds Allergies/Adverse Reactions: Allergies phenobarbital Allergy (Verified 06/18/19 14:05) Unknown Primary Care Physician: Abdirashid Vazquez DO [NON CLINICAL AFFILIATE] - Surgical History: - - D&C, partial lobotomy. Smoking Status: Current every day smoker - Family History Maternal Family History: Family History (Last Reviewed 10/30/17 @ 11:41 by Emily Ortega) Mother Heart disease Family History: Reports: Heart Disease Paternal Family History: Family History (Last Reviewed 10/30/17 @ 11:41 by Emily Ortega) Mother Heart disease Family History: Reports: Heart Disease Review of Systems General: Denies: Chills, Fever, Sweats Eyes: Denies: Visual changes - bilaterally, Diplopia ENT: Denies: Rhinorrhea, Sore throat Cardiovascular: Denies: Chest pain, Palpitations Respiratory: Denies: Dyspnea, Cough, Dyspnea on exertion Gastrointestinal: Denies: Abdominal pain, Nausea, Vomiting, Diarrhea, Melena, Hematochezia Genitourinary: Denies: Dysuria, Hematuria, Frequency Musculoskeletal: Denies: Back pain, Extremity Pain Skin: Denies: Rash, Wounds Neurological: Denies: Headache, Weakness, Numbness Psych: Reports: Depression, Suicidal thoughts, Suicidal ideations Physical Exam Vital Signs/Narrative: Vital Signs Temp Pulse Resp BP Pulse Ox 06/18/19 14:00 98.2 F 91 21 H 148/98 H 99 Inital Vital Signs reviewed: Yes General: Well nourished, Well developed, No Acute Distress Head: Normocephalic, Atraumatic Eyes: Perrl, EOMI ENT: Moist mucous membranes, No rhinorrhea Neck: Supple, Nontender Cardiovascular: Regular rate, Regular rhythm, No murmurs Respiratory: No distress, CTA bilaterally, Chest nontender Abdomen: Soft, Nontender, Nondistended, Normal bowel sounds Back: Nontender, Normal Inspection Extremities: Nontender, No edema Skin: Normal color, No rash Neurological: Alert, Oriented x3, Cranial nerves II-XII grossly intact, Normal Strength, Normal Sensation Psychological: - - Patient has no eye contact. She has blunted responses. She denies suicidal ideation but does admit that her actions would dispute this. Diagnostic/Tx/Re-eval - Medical Decision Making At 1500 hrs. and repeat examination the patient is sleeping. She responds to a large clap and sternal rub but does not make any intelligible words. She does have a gag reflex. It is difficult to say if this is an active or if she is truly tired from the amitriptyline. Her EKG does not show any concerning features has not changed from baseline. She was reassessed at 1600 hrs. and she continues to be somnolent. Plan will be admission into the ICU for observation. Her EKG has become slightly tachycardic but there has been no QRS widening. She continues to be responsive to sternal rub with withdrawing and unintelligible speech. She continues to have a gag reflex. Social work has been in to see the patient but given her mental status cannot assess. - Critical Care Time Critical care time (excluding procedures): 30-74 minutes - 35 minutes ED Disposition - Plan for ED Patient: Disposition: Acute Care [facility] Diagnosis: Intentional amitriptyline overdose, Depression Referrals: Abdirashid Vazquez DO [NON CLINICAL AFFILIATE] -
[2019-06-18 15:05] LABS: Absolute Lymphocyte Count 2.39 X10^3/uL (0.83-4.51); Absolute Neutrophil Count 3.5 X10^3/uL (2.0-7.7); Basophil# 0.04 X10^3/uL; Basophil% 0.6 % (0-1); Eosinophil# 0.08 X10^3/uL; Eosinophils% 1.2 % (0-5); Hemoglobin 14.3 g/dL (12.0-15.0); Lymphocyte # 2.39 X10^3/ul (4.0); Mean Corp Hgb Conc 34.9 g/dL (32-36); Mean Corpuscular Hgb 30.5 pg (27.0-32.0); Mean Corpuscular Volume 87.4 fL (81-99); Mean Platelet Vol. 9.7 fl (6.2-12.0); Monocyte# 0.62 X10^3/uL; Monocyte% 9.3 % (0-10); NRBC Flagged by Analyzer 0 % (0-5); Neutrophil # 3.47 X10^3/uL (2.7-7.7); Neutrophil % 52.3 % (47-70); Platelet Count 266 K/mm3 (150-450); RBC Distribution Width CV 12.4 % (11.6-14.6); RBC Distribution Width SD 39.2 fl (35.1-43.9); Red Blood Count 4.69 M/mm3 (4.2-5.4); White Blood Count 6.6 K/mm3 (4.4-11.0)
[2019-06-18 15:24] LABS: ALB/GLOB Ratio 0.9 RATIO (0.9-2.4); AST(SGOT) 32 U/L (15-37); Alanine Aminotransfer ALT/SGPT 51 U/L (13-56); Albumin, Serum 3.6 g/dL (3.2-5.0); Alkaline Phosphatase 76 U/L (45-117); Anion Gap 6 (5-15); BUN 7 mg/dL (7-18); BUN/Creat Ratio 9.3 RATIO (10-20); Calcium,Total 9.4 mg/dL (8.5-10.1); Chloride 110 mmol/L (98-107); Creatinine, Serum 0.75 mg/dL (0.55-1.02); EST Glomerular Filtration Rate 93 mL/min (>60); Est Glom Filt Rate - Afr Amer 113 mL/min (>60); Estimated Creatinine Clearance 89.55 ml/min; Globulin 4.1 g/dL (2.2-4.2); Glucose 101 mg/dL (74-106); Internal QC Validated? YES +Cl - CLEAR BKGD; Potassium 3.9 mmol/L (3.5-5.1); Pregnancy, Serum, hCG Quali. NEGATIVE Negative; Protein, Total 7.7 g/dL (6.4-8.2); Sodium Level 138 mmol/L (136-145); Thyroid Stim Hormone (TSH) 1.96 uIU/mL (0.358-3.74)
--- NOTE | 2019-06-18 15:55 | CM.ED ---
Social Work Consult: Mental Health Informant: Dr. Victoria Chief Complaint: Per chart review: Patient brought to ED by PD due to patient voicing suicidal thoughts to insurance career development coordinator/teacher. Patient stating to triage to have taken Amitriptyline 25mg in attempt to sleep fall to sleep. Patient then scoring high in suicide screening tool. Patient noted to have had suicide attempt via overdose in December 2018 and was admitted to the hospital and then inpatient psychiatric placement ([facility]). Patient with history of multiple suicide attempts via overdose per chart review. Attempted to meet with patient in room. Introduced self as well as social professionals role. Patient remains laying on bed with eyes closed. This social professionals attempting to rouse patient, patient did not respond to verbal stimuli. Dr. Victoria then entering room, patient responding to sternal rub by jolting in bed, sitting up, and laying back down. Patient eyes remained closed during entire interaction. Unable to complete assessment at this time due to patient being lethargic. Dr. Victoria and nursing staff aware of above information. Social Work to continue to follow as needed. Enrique HEMPHILL, CRISTOPHER
--- NOTE | 2019-06-18 16:23 | NURSING ---
ICU [facility] OVERDOSE
[2019-06-18 16:24] LABS: Acetaminophen (Tylenol) Level < 2.0 ug/mL (10.0-30.0); Salicylate < 1.7 mg/dL (2.8-20.0)
[2019-06-18 16:31] LABS: Bacteria 0 SEEN /hpf (None Seen); Mucous, Urine 0 SEEN /hpf (<or=2+); Red Blood Cells-Urine 0 SEEN /hpf (0-5); White Blood Cells 0 SEEN /hpf (0-5)
--- NOTE | 2019-06-18 16:33 | PCM.HP.STD ---
History of Present Illness Date of Admission: 06/18/19 Chief Complaint: Amitriptyline overdose The patient is a 34 year old F who is not responding to my questions so history is obtained through the emergency room physician. Patient endorsed taking 6 amitriptyline and then apparently was stating that she took more than that afterwards as the story continue to change. Patient was then unresponsive and was tachycardic.. In the emergency room patient was monitored. Patient would not be able to be transitioned over to psychiatric unit until she is been confirmed to be medically stable. [] Past Medical History Past Medical History (Chronic Problems): Chronic Problems (Last Reviewed 10/30/17 @ 11:41 by Emily Ortega) Anxiety and depression (Chronic) Bipolar disorder (Chronic) Morbid obesity (Chronic) Hirsutism (Chronic) Polycystic ovarian syndrome (Chronic) Depression (Chronic) Seizure (Chronic) Medical History: Medical History (Last Reviewed 06/18/19 @ 16:[address] Foster Peterson DO) Anxiety and depression F41.8 History of hysteroscopy Z98.890 Allergies phenobarbital Allergy (Verified 06/18/19 14:05) Unknown Home Medications: Ambulatory Orders Medication Instructions Recorded levETIRAcetam tablet [Keppra 1,000 mg PO BREAKFAST 05/24/15 tablet] levETIRAcetam tablet [Keppra 500 mg PO QHS 11/12/15 tablet] Amitriptyline HCl 4 tab PO QHS PRN PRN 12/12/16 Biotin 1 tab PO DAILY 09/06/17 Ferrous Sulfate [Iron] 1 tab PO TID 09/06/17 ALPRAZolam [Xanax] 2 mg PO TID PRN PRN 09/08/17 Cholecalciferol (VIT D3) [Vitamin 2,000 unit PO DAILY 09/05/18 D] Medroxyprogesterone Acetate 10 mg PO DAILY 09/05/18 [Provera] Surgical History: Surgical History (Last Reviewed 06/18/19 @ 16:[address] Foster Peterson DO) H/O dilation and curettage Z98.890 partial labotomy Surgical History: - - D&C, partial lobotomy. 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 Foster Peterson DO) Mother Heart disease History Items: Heart Disease Paternal Family History: Family History (Last Reviewed 06/18/19 @ 16:[address] Foster Peterson DO) Mother Heart disease History Items: Heart Disease Review of Systems Unable to obtain accurate/complete ROS d/t: Patient not responding to my questions. VTE Information - Inpt Only VTE Present on Admission: No VTE Mechan Device Prophylaxis: None VTE Pharm Prophylaxis ordered?: Yes Patient Problems: Active and Suspected Problems (Last Reviewed 10/30/17 @ 11:41 by Emily Ortega) Intentional amitriptyline overdose (Acute) - Physical Exam Vitals/I&O's: Vital Signs Temp Pulse Resp BP Pulse Ox 36.7 C 103 H 18 106/72 95 06/18/19 16:31 06/18/19 16:31 06/18/19 16:31 06/18/19 16:31 06/18/19 16:31 Oxygen Delivery Method Room Air Weight: 135.1 kg Body Mass Index (BMI) 51.1 Finger Stick Blood Glucose 105 General: - - Not responsive. No respiratory distress. Gag reflex intact and patient was able to pull my hand out with the tongue blade and start the point and then started to say some words and then quickly stopped talking and then when I tried asked her further questions she did not answer. HEENT: Atraumatic, PERRLA, Normocephalic, - - Scattered coarse facial hair Oral: Moist Mucosa, No Gingival or Mucosal Lesions/ Ulcerations Neck: No Nodes, Trachea Midline Lungs: Clear to auscultation, Normal air movement, No rhonchi, No wheeze Cardiovascular: Regular rate, Regular Rhythm, Normal S1, Normal S2, No murmurs Abdomen: Bowel Sounds Present, Soft, Non Tender, Non-Distended, No Hepato-splenomegaly, Obese Extremities: No edema, No Calf Tenderness Skin: No rashes, No breakdown Neurological: Deep Tendon Reflexes 2+/4 and Symmetrical, - - Gag reflex intact. No clonus Laboratory Results 06/18/19 14:50: WBC 6.6, RBC 4.69, Hgb 14.3, Hct 41.0, MCV 87.4, MCH 30.5, MCHC 34.9, RDW Std Deviation 39.2, RDW Coeff of Thomas 12.4, Plt Count 266, MPV 9.7, Immature Gran % (Auto) 0.600, Neut % (Auto) 52.3, Lymph % (Auto) 36.0, Piatt % (Auto) 9.3, Eos % (Auto) 1.2, Baso % (Auto) 0.6, Absolute Neuts (auto) 3.5, Absolute Lymphs (auto) 2.39, Nucleated RBC % 0 06/18/19 14:50: Sodium 138, Potassium 3.9, Chloride 110 H, Carbon Dioxide 22.0, Anion Gap 6, BUN 7, Creatinine 0.75, Estim Creat Clear Calc 89.55, Est GFR (MDRD) Af Amer 113, Est GFR (MDRD) Non-Af 93, BUN/Creatinine Ratio 9.3 L, Glucose 101, Calcium 9.4, Total Bilirubin 0.50, AST 32, ALT 51, Alkaline Phosphatase 76, Total Protein 7.7, Albumin 3.6, Globulin 4.1, Albumin/Globulin Ratio 0.9, TSH 1.96 06/18/19 14:50: Ethyl Alcohol 7.0 06/18/19 14:50: Serum , Qual NEGATIVE 06/18/19 14:50: Salicylates < 1.7 L, Acetaminophen < 2.0 L 06/18/19 16:10: Urine Opiates Screen Pending, Urine Methadone Screen Pending, Ur Barbiturates Screen Pending, Ur Phencyclidine Scrn Pending, Ur Amphetamines Screen Pending, U Methamphetamin-MDMA Pending, U Benzodiazepines Scrn Pending, Urine Cocaine Screen Pending, U Cannabinoids Screen Pending, Ur Drug Screen Comment 06/18/19 16:10: Urine Color Pending, Urine Clarity Pending, Urine pH Pending, Ur Specific [place] Pending, Urine Protein Pending, Urine Glucose (UA) Pending, Urine Ketones Pending, Urine Occult Blood Pending, Urine Nitrite Pending, Urine Bilirubin Pending, Urine Urobilinogen Pending, Ur Leukocyte Esterase Pending, Urine RBC Pending, Urine WBC Pending, Ur Squamous Epith Cells Pending, Urine Bacteria Pending, Urine Mucus Pending Assessment/Plan All Active Problems (Last Reviewed 10/30/17 @ 11:41 by Emily Ortega) Intentional amitriptyline overdose (Acute) Encephalopathy acute (Acute) Suicide attempt by drug ingestion (Acute) 1. Amitriptyline overdose: This is reported by the patient. Drug screen currently pending. Supportive management at this time. Monitor the QT interval. Patient will receive IV fluids. Given the patient's inconsistent exam a concern that may be some Giordano's meant of her symptoms is unclear if patient actually did take all his amitriptyline as she is claiming but we will certainly do the patient benefit the doubt that she did. Once she has been medically stable patient will need to be evaluated by crisis to see if she would warrant a psychiatric placement or not. Did discuss with Dr. Lorenzo, of intensive care, he will be on consult but if patient is medically stable he may request to the oncoming hospitalist to rescind the consult. Will continue to hold any potentiating medications especially the amitriptyline as well as alprazolam. 2. Seizure disorder. Continue with Keppra. 3. VTE prophylaxis: Moderate risk. Patient will be on enoxaparin. Inpatient E&M: 22706 Init Hosp L3
--- NOTE | 2019-06-18 16:39 | NURSING ---
ICU 6
--- NOTE | 2019-06-18 16:42 | ED.RN ---
called report to KEIRY Ritter in ICU.
[2019-06-18 16:44] LABS: Color, Urine Yellow (Yellow); Glucose, Dipstick Normal (Normal); Ketone-Dipstick Negative (Negative); Leukocyte Esterase-Dipstick Negative /ul (Negative); Nitrite-Dipstick Negative (Negative); Occult Blood-Urine Negative /ul (Negative); Protein-Dipstick Negative (Negative); Specific Gravity, Urine 1.015 (1.002-1.030); Urine Bilirubin Dipstick Negative (Negative); Urine Clarity Sl. Cloudy (Clear); Urine Urobilinogen Normal (Normal)
--- NOTE | 2019-06-18 16:44 | NURSING ---
ICU 6
[2019-06-18 16:56] LABS: Squamous Epithelial Cells - UA 0-5 SEEN /hpf (5-10)
[2019-06-18 17:01] LABS: Amphetamine Urine VISTA NEGATIVE (<1000 ng/mL); Barbiturate Urine VISTA NEGATIVE (< 200 ng/mL); Benzodiazepine Urine VISTA POSITIVE (< 200 ng/mL); Cocaine Urine VISTA NEGATIVE (< 300 ng/mL); Ecstacy Urine VISTA NEGATIVE (< 500 ng/mL); Methadone Urine VISTA NEGATIVE (< 300 ng/mL); PCP Urine VISTA NEGATIVE (< 25 ng/mL); THC Urine VISTA NEGATIVE (< 50 ng/mL); Vista UDS pH Range 6
[2019-06-18] MEDS: 0.9% Normal Saline 1,000 ML 200 ML IV ×2 (17:43→22:49)
[2019-06-19] VITALS (17 sets, daily range): BP systolic 98–160; BP diastolic 67–97; PULSE 67–100; RESP 13–18; TEMP 36.1–37.1; O2SAT 94–98
[2019-06-19] MEDS: 0.9% Normal Saline 1,000 ML 200 ML IV ×2 (03:48→08:38)
[2019-06-19 06:20] LABS: ALB/GLOB Ratio 0.9 RATIO (0.9-2.4); AST(SGOT) 29 U/L (15-37); Alanine Aminotransfer ALT/SGPT 46 U/L (13-56); Alkaline Phosphatase 67 U/L (45-117); Anion Gap 3 (5-15); BUN 6 mg/dL (7-18); BUN/Creat Ratio 8.4 RATIO (10-20); Calcium,Total 8.5 mg/dL (8.5-10.1); Chloride 112 mmol/L (98-107); Creatinine, Serum 0.72 mg/dL (0.55-1.02); EST Glomerular Filtration Rate 98 mL/min (>60); Est Glom Filt Rate - Afr Amer 119 mL/min (>60); Estimated Creatinine Clearance 93.28 ml/min; Globulin 3.4 g/dL (2.2-4.2); Glucose 82 mg/dL (74-106); Potassium 3.8 mmol/L (3.5-5.1); Protein, Total 6.4 g/dL (6.4-8.2); Sodium Level 142 mmol/L (136-145)
[2019-06-19] MEDS: Enoxaparin 40 MG/0.4 ML Syringe SC (08:38)
--- NOTE | 2019-06-19 10:47 | CASEMGMT ---
Addendum entered by Sabina Patten 06/19/19 11:22: Pt transferred to PCU. MARIAH spoke with Physician. Physician states pt is medically cleared for crisis to evaluate pt. MARIAH placed a call to Crisis at [facility]. MARIAH provided referral to Ashly at [facility]. Ashly request clinicals be faxed to [phone]. Ashly states they are doing crisis evaluations over the phone at this time. MARIAH provided Ashly with U direct number. MARIAH faxed clinicals to [facility]. MARIAH called Ho LEMUS on PCU for handoff. Original Note: Social Work Note [facility], plan is for crisis to evaluate pt once pt is medically cleared. Pt will likely transfer to PCU today. Sabina Patten SUPERVISOR ROLLING ROOM, SENIOR ENGINEERING SPECIALIST
--- NOTE | 2019-06-19 13:27 | PCM.PN.HOSP ---
Patient Problems: Active and Suspected Problems (Last Reviewed 06/18/19 @ 16:[address] Foster Peterson, DO) Intentional amitriptyline overdose (Acute) Reason for Visit: Amitriptyline overdose Subjective: Patient did well overnight with no events noted. She is more talkative today. She answered all my questions. She speaks very quietly with a whispered voice. She complains of back discomfort while lying in bed and dry mouth. She would like something to drink today. No fevers or chills. No nausea or vomiting. No chest pain, palpitations. No shortness of breath. Vitals/I&O's: Vital Signs Temp Pulse Resp BP Pulse Ox 98.8 F 76 18 119/72 95 06/19/19 09:00 06/19/19 10:59 06/19/19 10:00 06/19/19 10:00 06/19/19 10:00 Oxygen Flow Rate (L/min) 96 Oxygen Delivery Method Room Air Weight: 289 lb 0.416 oz Body Mass Index (BMI) 51.2 Finger Stick Blood Glucose 105 Intake and Output for Last 24 Hours 06/17/19 06/18/19 06/19/19 23:59 23:59 23:59 Intake Total 1000 / 1000 2506.67 / 2506.67 Output Total 1950 / 1950 Balance 1000 / 550 556.67 / 556.67 General: Alert, Oriented x3, Cooperative HEENT: Atraumatic, PERRLA, EOMI, Normocephalic Neck: Supple, No JVD, Negative Carotid Bruits Lungs: Clear to auscultation, Normal air movement Cardiovascular: Regular rate, No murmurs Abdomen: Bowel Sounds Present, Soft, Non Tender, Obese Extremities: No edema, Capillary Refill Less than 3 Seconds Skin: No rashes, No breakdown Musculoskeletal: No Tenderness to Palpation of Joints or Extremities Neurological: Cranial nerves II-XII grossly intact Psych/Mental Status: Depressed, Alert and oriented to time, place, person, mood and affect Laboratory Results 06/18/19 14:50: WBC 6.6, RBC 4.69, Hgb 14.3, Hct 41.0, MCV 87.4, MCH 30.5, MCHC 34.9, RDW Std Deviation 39.2, RDW Coeff of Thomas 12.4, Plt Count 266, MPV 9.7, Immature Gran % (Auto) 0.600, Neut % (Auto) 52.3, Lymph % (Auto) 36.0, [place] % (Auto) 9.3, Eos % (Auto) 1.2, Baso % (Auto) 0.6, Absolute Neuts (auto) 3.5, Absolute Lymphs (auto) 2.39, Nucleated RBC % 0 06/18/19 14:50: Sodium 138, Potassium 3.9, Chloride 110 H, Carbon Dioxide 22.0, Anion Gap 6, BUN 7, Creatinine 0.75, Estim Creat Clear Calc 89.55, Est GFR (MDRD) Af Amer 113, Est GFR (MDRD) Non-Af 93, BUN/Creatinine Ratio 9.3 L, Glucose 101, Calcium 9.4, Total Bilirubin 0.50, AST 32, ALT 51, Alkaline Phosphatase 76, Total Protein 7.7, Albumin 3.6, Globulin 4.1, Albumin/Globulin Ratio 0.9, TSH 1.96 06/18/19 14:50: Ethyl Alcohol 7.0 06/18/19 14:50: Serum , Qual NEGATIVE 06/18/19 14:50: Salicylates < 1.7 L, Acetaminophen < 2.0 L 06/18/19 16:10: Urine Opiates Screen NEGATIVE, Urine Methadone Screen NEGATIVE, Ur Barbiturates Screen NEGATIVE, Ur Phencyclidine Scrn NEGATIVE, Ur Amphetamines Screen NEGATIVE, U Methamphetamin-MDMA NEGATIVE, U Benzodiazepines Scrn POSITIVE H, Urine Cocaine Screen NEGATIVE, U Cannabinoids Screen NEGATIVE, Ur Drug Screen Comment 06/18/19 16:10: Urine Color Yellow, Urine Clarity Sl. Cloudy, Urine pH 6.0, Ur Specific [place] 1.015, Urine Protein Negative, Urine Glucose (UA) Normal, Urine Ketones Negative, Urine Occult Blood Negative, Urine Nitrite Negative, Urine Bilirubin Negative, Urine Urobilinogen Normal, Ur Leukocyte Esterase Negative, Urine RBC 0 SEEN, Urine WBC 0 SEEN, Ur Squamous Epith Cells 0-5 SEEN, Urine Bacteria 0 SEEN, Urine Mucus 0 SEEN 06/19/19 05:56: Sodium 142, Potassium 3.8, Chloride 112 H, Carbon Dioxide 27.0, Anion Gap 3 L, BUN 6 L, Creatinine 0.72, Estim Creat Clear Calc 93.28, Est GFR (MDRD) Af Amer 119, Est GFR (MDRD) Non-Af 98, BUN/Creatinine Ratio 8.4 L, Glucose 82, Calcium 8.5, Total Bilirubin 0.40, AST 29, ALT 46, Alkaline Phosphatase 67, Total Protein 6.4, Albumin 3.0 L, Globulin 3.4, Albumin/Globulin Ratio 0.9 Current Medications Acetaminophen (Tylenol) 650 mg PO Q6H PRN PRN PRN Reason: Pain Score 1-10/Temp > 100.7 F Sodium Chloride () 10 - 40 ml IV UD PRN PRN Reason: SALINE FLUSH STROKE Vital Signs/Narrative: Vital Signs Pulse Resp BP Pulse Ox 06/19/19 10:59 76 06/19/19 10:00 84 18 119/72 95 Medical Necessity - Tobacco Use Smoking Status: Never smoker Assessment/Plan All Active Problems (Last Reviewed 06/18/19 @ 16:[address] Foster Peterson, DO) Intentional amitriptyline overdose (Acute) Encephalopathy acute (Acute) Suicide attempt by drug ingestion (Acute) 1. Intentional amitriptyline overdose-initial EKG without prolonged QTC. No events on telemetry overnight with a normal QT. Patient is more alert today, more talkative. Crisis eval pending. Tox screen was positive for benzos. Xanax held. 2. History of PCOS with hirsutism, obesity-Provera held. 3. History of bipolar disorder-not on antipsychotics or mood stabilizers. No flaquita at this point, appears depressed. 4. History of seizure disorder-resume Keppra. DVT ppx: early ambulation DC planning: Home vs Inpatient psych This patient was seen by Lui Rodas PA-C under the supervision of Dr. Toscano.
--- NOTE | 2019-06-21 08:19 | PCM.DC.SUM ---
Discharge Date and Diagnosis Date of Admission: 06/18/19 Date of Discharge: 06/19/19 - Primary Discharge Diagnosis 1. Intentional amitriptyline overdose 2. Polycystic ovary disease 3. Bipolar disorder 4. Seizure disorder - Secondary Discharge Diagnosis Chronic Problems (Last Reviewed 06/18/19 @ 16:[address] Foster Peterson, DO) Anxiety and depression (Chronic) Bipolar disorder (Chronic) Morbid obesity (Chronic) Hirsutism (Chronic) Polycystic ovarian syndrome (Chronic) Depression (Chronic) Seizure (Chronic) Hospital Course and Treatment Consultations 06/19/19 11:09 Crisis [Consult: Mental Health/Crisis] Routine Reason for consult?: suicide attempt Date Notified:: 06/19/19 Time notified:: 09:30 Operations: None Procedures: None Summary of Care Provided: The patient is a 34 year old F was seen in the emergency room at [facility] after taking an intentional dose of amitriptyline. Patient has an extensive psych history. Work-up in the emergency room included labs which did not show any significant abnormalities. Patient was admitted to ICU, she remained stable and was transferred to PCU for further care. She was seen in consultation by crisis who felt that the patient required inpatient psychiatric treatment. On 06/19/2019, patient was seen and examined: On examination she does not appear to be in any distress. Vital signs as documented. Skin warm and dry and without overt rashes. Neck without JVD, thyroid appears normal, trachea is midline, neck is supple. Lungs clear, normal air movement was noted. Heart exam notable for regular rhythm, normal sounds and absence of murmurs, rubs or gallops. Abdomen unremarkable and without evidence of organomegaly, masses, or abdominal aortic enlargement, bowel sounds are present in all 4 quadrants, no abdominal tenderness was noted. Extremities nonedematous, no cyanosis was noted, no clubbing was noted. Neuro: Cranial nerves II through XII are grossly intact, no focal motor deficits were noted, sensation to light touch and pinprick is intact, motor exam 5/5 throughout. Psych: Patient is alert and oriented x3, she has a blunted affect. On 06/19/2019, patient appeared stable for discharge to an inpatient psychiatric facility and was discharged on that date. - Physical Exam Vitals/I&O's: Vital Signs Temp Pulse Resp BP Pulse Ox 98.3 F 99 16 127/79 H 98 04/08/20 17:33 06/19/19 17:33 06/19/19 17:33 06/19/19 17:33 06/19/19 17:33 Oxygen Flow Rate (L/min) 96 Oxygen Delivery Method Room Air Weight: 131.1 kg Body Mass Index (BMI) 51.2 Finger Stick Blood Glucose 105 Intake and Output for Last 24 Hours 06/19/19 06/20/19 06/21/19 23:59 23:59 23:59 Intake Total 3706.67 / 3706.67 Output Total 2450 / 2450 Balance 1256.67 / 1256.67 Home Medications: Medications to take at Discharge levETIRAcetam tablet [Keppra tablet] 1,000 mg PO BREAKFAST 05/24/15 levETIRAcetam tablet [Keppra tablet] 500 mg PO QHS 11/12/15 Amitriptyline HCl 4 tab PO QHS PRN PRN 12/12/16 Biotin 1 tab PO DAILY 09/06/17 Ferrous Sulfate [Iron] 1 tab PO TID 09/06/17 ALPRAZolam [Xanax] 2 mg PO TID PRN PRN 09/08/17 Cholecalciferol (VIT D3) [Vitamin D] 2,000 unit PO DAILY 09/05/18 Medroxyprogesterone Acetate [Provera] 10 mg PO DAILY 09/05/18 Primary Care Physician: Abdirashid Vazquez DO [NON CLINICAL AFFILIATE] - Disposition: Psych Hospital or Unit Minutes spent on discharge:: 31 Patient Condition:: Stable Medical Necessity - Tobacco Use Smoking Status: Never smoker Meaningful Use Info Meaningful Use Diagnoses (Choose all that apply): None applicable Inpatient E&M: 75885 Disch Hosp
== END 2019-06-19 19:16 | DRG 918 ==
LOC: ED 16:29 → ICU 16:41 → PCU 06-19 11:04
PROVIDERS: Emergency Provider Emergency Medicine; Visit Provider Internal Medicine
DX: T43.012A Poisoning by tricyclic antidepressants, intentional self-harm, initial encounter (principal); Z68.43 Body mass index [BMI] 50.0-59.9, adult; F17.200 Nicotine dependence, unspecified, uncomplicated; F31.9 Bipolar disorder, unspecified; F41.9 Anxiety disorder, unspecified; E66.01 Morbid (severe) obesity due to excess calories; G40.909 Epilepsy, unspecified, not intractable, without status epilepticus; Z79.899 Other long term (current) drug therapy; E28.2 Polycystic ovarian syndrome
CPT/HCPCS: 51702; 80053; 80307; 80320; 80329; 81001; 84443; 84703; 85025; 93005; 99285; J7030; A4216; G0480

== ENCOUNTER 2019-07-10 12:56 | Emergency (ER) | payer MEDICARE, MEDICAID, SELFPAY ==
[2019-06-18 17:15] VITALS: BMI 51.2
[2019-07-10 12:58] VITALS: TEMP 36.6; BMI 50.4
--- NOTE | 2019-07-10 13:18 | ED.VIS.GEN ---
History of Present Illness Chief Complaint: Suicidal Informant: Patient Narrative: Patient presents the emergency department for the evaluation of suicidal ideation. The patient states that after being discharged from [facility] following a inpatient stay here at [facility] for intentional amitriptyline overdose she has been increasingly despondent feeling alone specially during this pandemic. She is unhappy with her living situation. She went spoke with her counselor today and was expressing 3 days of worsening suicidal ideation and therefore was brought here. Patient denies ingesting any medications today. She denies any self-harm today. Patient states that physically she is doing okay. She typically eats 1 meal a day. Past Medical History - Allergies and Home Meds Allergies/Adverse Reactions: Allergies phenobarbital Allergy (Verified 07/10/19 13:00) Unknown Primary Care Physician: Care Physician,No Primary [Primary Care Provider] - Surgical History: - - D&C, partial lobotomy. Smoking Status: Never smoker - Family History Maternal Family History: Family History (Last Reviewed 06/18/19 @ 16:[address] Foster Peterson DO) Mother Heart disease Family History: Reports: Heart Disease Paternal Family History: Family History (Last Reviewed 06/18/19 @ 16:[address] Foster Peterson DO) Mother Heart disease Family History: Reports: Heart Disease Review of Systems General: Denies: Chills, Fever, Sweats Eyes: Denies: Visual changes - bilaterally, Diplopia ENT: Denies: Rhinorrhea, Sore throat Cardiovascular: Denies: Chest pain, Palpitations Respiratory: Denies: Dyspnea, Cough, Dyspnea on exertion Gastrointestinal: Denies: Abdominal pain, Nausea, Vomiting, Diarrhea, Melena, Hematochezia Genitourinary: Denies: Dysuria, Hematuria, Frequency Musculoskeletal: Denies: Back pain, Extremity Pain Skin: Denies: Rash, Wounds Neurological: Denies: Headache, Weakness, Numbness Psych: Reports: Depression, Suicidal thoughts, Suicidal ideations Physical Exam Vital Signs/Narrative: Vital Signs Temp 07/10/19 12:58 97.8 F Inital Vital Signs reviewed: Yes General: Well nourished, Well developed, No Acute Distress Head: Normocephalic, Atraumatic Eyes: Perrl, EOMI ENT: Moist mucous membranes, No rhinorrhea Neck: Supple, Nontender Cardiovascular: Regular rate, Regular rhythm, No murmurs Respiratory: No distress, CTA bilaterally, Chest nontender Abdomen: Soft, Nontender, Nondistended, Normal bowel sounds Back: Nontender, Normal Inspection Extremities: Nontender, No edema Skin: Normal color, No rash Neurological: Alert, Oriented x3, Cranial nerves II-XII grossly intact, Normal Strength, Normal Sensation Psychological: - - Patient has a labile affect. She pretty quickly goes from crying and being upset to able to speak when I get her off subject. She does endorse suicide as an option. Diagnostic/Tx/Re-eval - EKG Initial EKG Interpretation: Sinus Rhythm - EKG demonstrates a normal sinus rhythm at a rate of 88. No ectopy. No concerning features of ACS. - Medical Decision Making Patient was medically cleared. Social work did evaluate the patient. We are planning on transferring her to psychiatric facility as she is unable to contract for safety. ED Disposition - Plan for ED Patient: Disposition: Psychiatric Hospital or Unit Diagnosis: Depression, Suicidal ideation Referrals: Care Physician,No Primary [Primary Care Provider] -
--- NOTE | 2019-07-10 14:09 | EKG12_ITS ---
Test Reason : PRE PROCEDURE Blood Pressure : / mmHG Vent. Rate : 088 BPM Atrial Rate : 088 BPM P-R Int : 158 ms QRS Dur : 090 ms QT Int : 364 ms P-R-T Axes : 028 025 025 degrees QTc Int : 440 ms Normal sinus rhythm Normal ECG Confirmed by MICHELLE ARCE, CAROLE ([id number]), editorial clerk TERRY SANCHEZ ([id number]) on 07/15/2019 2:15:37 PM Referred By: Confirmed By:CAROLE MARTINEZ MD
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
[2019-07-10 14:29] LABS: Absolute Neutrophil Count 5.1 X10^3/uL (2.0-7.7); Basophil# 0.04 X10^3/uL; Basophil% 0.6 % (0-1); Eosinophil# 0.03 X10^3/uL; Eosinophils% 0.4 % (0-5); Hematocrit 42.6 % (37-47); Hemoglobin 14.8 g/dL (12.0-15.0); Lymphocyte % 19.9 % (19-41); Mean Corp Hgb Conc 34.7 g/dL (32-36); Mean Corpuscular Hgb 30.3 pg (27.0-32.0); Mean Corpuscular Volume 87.1 fL (81-99); Mean Platelet Vol. 9.3 fl (6.2-12.0); Monocyte# 0.41 X10^3/uL; Monocyte% 5.8 % (0-10); NRBC Flagged by Analyzer 0 % (0-5); Neutrophil # 5.13 X10^3/uL (2.7-7.7); Neutrophil % 72.9 % (47-70); Platelet Count 327 K/mm3 (150-450); RBC Distribution Width CV 11.9 % (11.6-14.6); RBC Distribution Width SD 37.7 fl (35.1-43.9); Red Blood Count 4.89 M/mm3 (4.2-5.4)
[2019-07-10 14:44] LABS: Internal QC Validated? YES +Cl - CLEAR BKGD; Pregnancy, Serum, hCG Quali. NEGATIVE Negative
[2019-07-10 14:49] LABS: ALB/GLOB Ratio 0.9 RATIO (0.9-2.4); AST(SGOT) 31 U/L (15-37); Alanine Aminotransfer ALT/SGPT 46 U/L (13-56); Albumin, Serum 3.7 g/dL (3.2-5.0); Alkaline Phosphatase 81 U/L (45-117); Anion Gap 7 (5-15); BUN 11 mg/dL (7-18); BUN/Creat Ratio 12.3 RATIO (10-20); Calcium,Total 9.2 mg/dL (8.5-10.1); Chloride 109 mmol/L (98-107); EST Glomerular Filtration Rate 76 mL/min (>60); Est Glom Filt Rate - Afr Amer 91 mL/min (>60); Estimated Creatinine Clearance 77.76 ml/min; Globulin 4.2 g/dL (2.2-4.2); Glucose 125 mg/dL (74-106); Potassium 3.9 mmol/L (3.5-5.1); Protein, Total 7.9 g/dL (6.4-8.2); Sodium Level 140 mmol/L (136-145)
[2019-07-10 14:57] LABS: Amphetamine Urine VISTA NEGATIVE (<1000 ng/mL); Barbiturate Urine VISTA NEGATIVE (< 200 ng/mL); Benzodiazepine Urine VISTA POSITIVE (< 200 ng/mL); Cocaine Urine VISTA NEGATIVE (< 300 ng/mL); Ecstacy Urine VISTA NEGATIVE (< 500 ng/mL); Methadone Urine VISTA NEGATIVE (< 300 ng/mL); PCP Urine VISTA NEGATIVE (< 25 ng/mL); THC Urine VISTA NEGATIVE (< 50 ng/mL); Vista UDS pH Range 6
[2019-07-10 15:22] LABS: Alcohol, Blood (Medical)-Serum < 3.0 mg/dL
--- NOTE | 2019-07-10 15:30 | CM.ED ---
Social Work Telephone call from [facility], Ara. Ara reporting to have received the release of information. Ara stating to have been working with patient for many years. Ara stating to have attempted safety plan with patient in the office on this day but patient was not able to be safety planned due to thoughts of suicide and intent with plan to overdose. Ara stating that patient has a history of impulsive behaviors due to history of TBI. Ara stating to recommend inpatient psychiatric placement for patient for safety as patient is not safe to self at this time. This socially responsible investment adviser thanking Laura. Enrique Jama ELECTRICIAN SHIP, CRISTOPHER
--- NOTE | 2019-07-10 15:35 | CM.ED ---
Social Work Telephone call to Marjorie Kelley, intake. Referral made. Clinical information faxed. Pending approval. Enrique HEMPHILL, CRISTOPHER
[2019-07-10 16:02] VITALS: BP 155/95; PULSE 102; RESP 18; O2SAT 99
--- NOTE | 2019-07-10 17:30 | CM.ED ---
Social Work Telephone call from Chiquis Saez. Patient has been accepted. Unit: 1500 unit. Admitting: Dr. Mcbride. Nurse to call report to: [phone]. Updated patient, medical team. All agreeable. [place] faxed to Marjorie Kelley. Enrique HEMPHILL, CRISTOPHER
--- NOTE | 2019-07-10 17:44 | NURSING ---
CALLED PHYSICIANS FOR TRANSFER. ETA IS 30 MIN
[2019-07-10 18:02] VITALS: BP 145/90; PULSE 94; RESP 18; O2SAT 98
== END 2019-07-10 18:38 ==
PROVIDERS: Emergency Provider Emergency Medicine
DX: R45.851 Suicidal ideations (principal); F32.9 Major depressive disorder, single episode, unspecified
CPT/HCPCS: 80053; 80307; 80320; 84703; 85025; 93005; 99284; G0480

== ENCOUNTER 2019-12-06 13:05 | Observation (INO) | payer MEDICARE, MEDICAID, SELFPAY ==
[2019-12-06] VITALS (16 sets, daily range): BP systolic 101–142; BP diastolic 59–101; PULSE 87–127; RESP 14–26; TEMP 35.8–37.1; O2SAT 94–100; BMI 51.0; BMI 50.1
--- NOTE | 2019-12-06 13:27 | EKG12_ITS ---
Test Reason : OVERDOSE Blood Pressure : / mmHG Vent. Rate : 120 BPM Atrial Rate : 120 BPM P-R Int : 162 ms QRS Dur : 106 ms QT Int : 336 ms P-R-T Axes : 056 048 030 degrees QTc Int : 474 ms Sinus tachycardia Otherwise normal ECG Confirmed by MERLY ARCE, SALOME ([id number]), editor newspaper MILY SHAH ([id number]) on 12/11/2019 8:42:25 AM Referred By: SAMMI Confirmed By:SALOME MORELAND MD
[2019-12-06] MEDS: 0.9% Normal Saline 1,000 ML 1000 ML IV (13:35)
[2019-12-06 13:44] LABS: Absolute Lymphocyte Count 1.36 X10^3/uL (0.83-4.51); Basophil# 0.02 X10^3/uL; Basophil% 0.3 % (0-1); Eosinophil# 0.03 X10^3/uL; Eosinophils% 0.4 % (0-5); Hematocrit 42.2 % (37-47); Hemoglobin 14.1 g/dL (12.0-15.0); Lymphocyte # 1.36 X10^3/ul (4.0); Lymphocyte % 17.2 % (19-41); Mean Corp Hgb Conc 33.4 g/dL (32-36); Mean Corpuscular Volume 89.8 fL (81-99); Mean Platelet Vol. 9.7 fl (6.2-12.0); Monocyte# 0.43 X10^3/uL; Monocyte% 5.4 % (0-10); NRBC Flagged by Analyzer 0 % (0-5); Neutrophil # 6.01 X10^3/uL (2.7-7.7); Neutrophil % 76.1 % (47-70); Platelet Count 272 K/mm3 (150-450); RBC Distribution Width CV 12.6 % (11.6-14.6); RBC Distribution Width SD 41.4 fl (35.1-43.9); White Blood Count 7.9 K/mm3 (4.4-11.0)
[2019-12-06 14:01] LABS: ALB/GLOB Ratio 0.8 RATIO (0.9-2.4); AST(SGOT) 54 U/L (15-37); Alanine Aminotransfer ALT/SGPT 85 U/L (13-56); Albumin, Serum 3.4 g/dL (3.2-5.0); Alkaline Phosphatase 74 U/L (45-117); Anion Gap 7 (5-15); BUN 14 mg/dL (7-18); BUN/Creat Ratio 17.3 RATIO (10-20); Calcium,Total 8.9 mg/dL (8.5-10.1); Chloride 108 mmol/L (98-107); Creatinine, Serum 0.81 mg/dL (0.55-1.02); EST Glomerular Filtration Rate 85 mL/min (>60); Est Glom Filt Rate - Afr Amer 103 mL/min (>60); Globulin 4.1 g/dL (2.2-4.2); Glucose 131 mg/dL (74-106); Potassium 3.5 mmol/L (3.5-5.1); Protein, Total 7.5 g/dL (6.4-8.2); Sodium Level 139 mmol/L (136-145)
[2019-12-06 14:10] LABS: Internal QC Validated? YES +Cl - CLEAR BKGD; Pregnancy, Serum, hCG Quali. NEGATIVE Negative
--- NOTE | 2019-12-06 14:25 | CM.ED ---
Social Work Consult: Overdose Informant: Dr. Santana Attempted to assess patient. Patient currently not responding to verbal stimuli. Per chart review patient with history of suicide attempts via overdose, unclear if patient overdose today was intentional. Social Work/Crisis to continue to follow as needed. Patient to be admitted to ICU. Enrique HEMPHILL, CRISTOPHER
--- NOTE | 2019-12-06 14:30 | CT_ITS ---
STUDY: CT BRAIN WITHOUT CONTRAST REASON FOR EXAM: Female, 34 years old. OVERDOSE. CRANIECTOMY RADIATION DOSAGE (If Supplied By Facility): CTDIvol = ( 44.99 ) mGy, DLP = ( 863.60 ) mGycm TECHNIQUE: Transaxial CT imaging of the brain was performed without administration of intravenous contrast material. Individualized dose optimization techniques were used for this CT. COMPARISON: Comparison is made with prior study dated 09/03/2018. FINDINGS: Normal soft tissue structures. Prior right temporal craniotomy. Normal size ventricles and extra-axial spaces for the patient''s age. Stable 4.3 cm x 3.5 cm CSF collection seen in the left temporal lobe. This is unchanged and most likely represents post operative encephalomalacia. Normal basal ganglia and thalami. Normal brainstem. Normal cerebellum. There is no intracranial hemorrhage. There are no findings of an acute ischemic infarction. Normal visualized paranasal sinuses. CT/Brain/Head without Contrast IMPRESSION: Stable examination. No acute abnormality is seen. Prior right temporal craniotomy with encephalomalacia in the right temporal lobe. Electronically Signed: Erich Wise, at 14:53 EDT , Service support ,
[2019-12-06 15:20] LABS: Acetaminophen (Tylenol) Level < 2.0 ug/mL (10.0-30.0); Alcohol, Blood (Medical)-Serum < 3.0 mg/dL; Salicylate < 1.7 mg/dL (2.8-20.0)
[2019-12-06 15:48] LABS: Amphetamine Urine VISTA NEGATIVE (<1000 ng/mL); Barbiturate Urine VISTA NEGATIVE (< 200 ng/mL); Benzodiazepine Urine VISTA POSITIVE (< 200 ng/mL); Cocaine Urine VISTA NEGATIVE (< 300 ng/mL); Ecstacy Urine VISTA NEGATIVE (< 500 ng/mL); Methadone Urine VISTA NEGATIVE (< 300 ng/mL); PCP Urine VISTA NEGATIVE (< 25 ng/mL); THC Urine VISTA NEGATIVE (< 50 ng/mL); Vista UDS pH Range 6
[2019-12-06] MEDS: Sodium Bicarbonate 8.4% 50 ML Syringe 50 MEQ IV ×2 (15:50→21:14)
--- NOTE | 2019-12-06 16:03 | EKG12_ITS ---
Test Reason : OVERDOSE Blood Pressure : / mmHG Vent. Rate : 089 BPM Atrial Rate : 089 BPM P-R Int : 228 ms QRS Dur : 104 ms QT Int : 410 ms P-R-T Axes : 031 025 021 degrees QTc Int : 498 ms Sinus rhythm with 1st degree A-V block Prolonged QT Abnormal ECG No previous ECGs available Confirmed by MERLY ARCE, SALOME ([id number]), news copy editor MILY SHAH ([id number]) on 12/10/2019 12:48:00 PM Referred By: LUX Confirmed By:SALOME MORELAND MD
--- NOTE | 2019-12-06 16:05 | HP.PCM_ITS ---
History of Present Illness Date of Admission: 12/06/19 Chief Complaint: found unresponsive The patient is a 34 year old F with an extensive past medical history as outlined. She was admitted via the ED on 12/06/2019 after being brought in by the squad. Per ED physician's notes, patient was found in [place] unresponsive and a bystander called the EMS. Patient has a history of amitriptyline overdose. Patient was uncooperative and appeared to be unresponsive. I was unable to get any history from the patient and she would not answer. Vitals in the ED showed temperature of 98.8 Fahrenheit with blood pressure of 101/59, pulse rate of 107 and respiratory rate of 15. She was saturating at 95% on 2 L of oxygen. Chemistry was essentially unremarkable. CBC was also unremarkable. CT of the brain showed prior right temporal craniotomy with encephalomalacia in the right temporal lobe otherwise no acute intracranial abnormality. EKG done in the ED showed sinus tachycardia with heart rate of 120 and prolonged QRS of 106. ED discussed with poison control about EKG findings and his symptoms and based on their recommendation, patient was given amp of IV bicarb. Liver enzymes were unremarkable. Tylenol screen was negative as well as aspirin screen. Urine tox showed benzodiazepines and alcohol screen was negative. Per poison control, according to ED doctor, patient needs to be monitored overnight to make sure that her QRS prolongation resolves. She is being admitted to manage for acute metabolic encephalopathy likely due to amitriptyline overdose. [] Past Medical History Past Medical History (Chronic Problems): Chronic Problems (Last Reviewed 06/18/19 @ 16:[address] Foster Peterson, ) Anxiety and depression (Chronic) Bipolar disorder (Chronic) Morbid obesity (Chronic) Hirsutism (Chronic) Polycystic ovarian syndrome (Chronic) Depression (Chronic) Seizure (Chronic) Medical History: Medical History (Last Reviewed 06/18/19 @ 16:[address] Foster Peterson DO) Anxiety and depression F41.8 History of hysteroscopy Z98.890 Allergies phenobarbital Allergy (Verified 12/06/19 13:12) Unknown Home Medications: Ambulatory Orders Medication Instructions Recorded levETIRAcetam tablet [Keppra 1,000 mg PO BREAKFAST 05/24/15 tablet] levETIRAcetam tablet [Keppra 500 mg PO QHS 11/12/15 tablet] Amitriptyline HCl 4 tab PO QHS PRN PRN 12/12/16 Biotin 1 tab PO DAILY 09/06/17 Ferrous Sulfate [Iron] 1 tab PO TID 09/06/17 ALPRAZolam [Xanax] 2 mg PO TID PRN PRN 09/08/17 Cholecalciferol (VIT D3) [Vitamin 2,000 unit PO DAILY 09/05/18 D] Medroxyprogesterone Acetate 10 mg PO DAILY 09/05/18 [Provera] Surgical History: Surgical History (Last Reviewed 06/18/19 @ 16:[address] Foster Peterson DO) H/O dilation and curettage Z98.890 partial labotomy Surgical History: - - D&C, partial lobotomy. Psychiatric History: Anxiety, Bipolar, Depression, Prior suicide attempt BOOM PUMP OPERATOR History: No pertinent BOOM PUMP OPERATOR history Smoking Status: Unknown if ever smoked - *Family History Maternal Family History: Family History (Last Reviewed 06/18/19 @ 16:[address] Foster Peterson DO) Mother Heart disease History Items: Heart Disease Paternal Family History: Family History (Last Reviewed 06/18/19 @ 16:[address] Foster Peterson DO) Mother Heart disease History Items: Heart Disease Review of Systems Unable to obtain accurate/complete ROS d/t: as patient is uncooperative, and unresponsive VTE Information - Inpt Only VTE Present on Admission: No VTE Pharm Prophylaxis ordered?: Yes - Physical Exam Vitals/I&O's: Vital Signs Temp Pulse Resp BP Pulse Ox 98.8 F 107 H 15 101/59 L 95 12/06/19 16:01 12/06/19 16:01 12/06/19 16:01 12/06/19 16:01 12/06/19 16:01 Oxygen Flow Rate (L/min) 2 Oxygen Delivery Method Room Air Weight: 306 lb 7.08 oz Body Mass Index (BMI) 51.0 Finger Stick Blood Glucose 105 Intake and Output for Last 24 Hours 12/04/19 12/05/19 12/06/19 23:59 23:59 23:59 Intake Total 1000 / 1000 Balance 1000 / 1000 General: Lethargic, Non-Cooperative, - - minimally responsive HEENT: Atraumatic, EOMI, Normocephalic, - - pupils equal, and minimally responsive to light. Oral: Dry Mucosa Neck: Supple, No JVD, Negative Carotid Bruits Lungs: Clear to auscultation, Normal air movement, No rhonchi, No wheeze, No rales Cardiovascular: Regular rate, Regular Rhythm, Normal S1, Normal S2, No murmurs Abdomen: Bowel Sounds Present, Soft, Non Tender Extremities: No clubbing, No cyanosis, No edema, Capillary Refill Less than 3 Seconds Skin: No rashes, No breakdown Musculoskeletal: No Tenderness to Palpation of Joints or Extremities Lymphatic: No Cervical, Supraclavicular, or Inguinal Adenopathy Neurological: Muscle tone normal - GCS-, - Psych/Mental Status: - - minimally responsive, GCS- Laboratory Results 12/06/19 13:31: WBC 7.9, RBC 4.70, Hgb 14.1, Hct 42.2, MCV 89.8, MCH 30.0, MCHC 33.4, RDW Std Deviation 41.4, RDW Coeff of Thomas 12.6, Plt Count 272, MPV 9.7, Immature Gran % (Auto) 0.600, Neut % (Auto) 76.1 H, Lymph % (Auto) 17.2 L, [place] % (Auto) 5.4, Eos % (Auto) 0.4, Baso % (Auto) 0.3, Absolute Neuts (auto) 6.0, Absolute Lymphs (auto) 1.36, Nucleated RBC % 0 12/06/19 13:31: Sodium 139, Potassium 3.5, Chloride 108 H, Carbon Dioxide 24.0, Anion Gap 7, BUN 14, Creatinine 0.81, Estim Creat Clear Calc 86.40, Est GFR (MDRD) Af Amer 103, Est GFR (MDRD) Non-Af 85, BUN/Creatinine Ratio 17.3, Glucose 131 H, Calcium 8.9, Total Bilirubin 0.40, AST 54 H, ALT 85 H, Alkaline Phosphatase 74, Total Protein 7.5, Albumin 3.4, Globulin 4.1, Albumin/Globulin Ratio 0.8 L 12/06/19 13:31: Serum , Qual NEGATIVE 12/06/19 14:11: Salicylates < 1.7 L, Acetaminophen < 2.0 L, Ethyl Alcohol < 3.0 12/06/19 15:19: Urine Opiates Screen NEGATIVE, Urine Methadone Screen NEGATIVE, Ur Barbiturates Screen NEGATIVE, Ur Phencyclidine Scrn NEGATIVE, Ur Amphetamines Screen NEGATIVE, U Methamphetamin-MDMA NEGATIVE, U Benzodiazepines Scrn POSITIVE H, Urine Cocaine Screen NEGATIVE, U Cannabinoids Screen NEGATIVE, Ur Drug Screen Comment Diagnostic Data Brain CT 12/06/19 14:30 IMPRESSION: Stable examination. No acute abnormality is seen. Prior right temporal craniotomy with encephalomalacia in the right temporal lobe. Electronically Signed: Erich Frandy, at 14:53 EDT , Service support , Assessment/Plan All Active Problems (Last Reviewed 06/18/19 @ 16:[address] Foster Peterson, DO) Intentional amitriptyline overdose (Acute) Encephalopathy acute (Acute) Suicide attempt by drug ingestion (Acute) 34 y/o admitted after being found unresponsive. #Acute metabolic encephalopathy likely due to amitryptiline overdose * Patient does have a history of amitriptyline overdose. * Sherie Coma Scale- 10 * EKG showed normal sinus rhythm with QRS prolongation * Urine tox showed positive benzodiazepines with negative alcohol and negative acetaminophen and salicylates. * admit to ICU * recieved an amp of bicarb in the ED. ED doctor did discuss with poison control and per their recommendation, patient to be monitored overnight with serial EKGs for resolution of prolonged QRS. * Consult critical care. * Hydrate gently with IV fluids. * #History of anxiety and depression: On Xanax and amitriptyline. Will hold these. #History of seizure disorder: On Keppra #DVT prophylaxis: Lovenox Inpatient E&M: 32971 Init Hosp L3
--- NOTE | 2019-12-06 16:34 | ED.RN ---
REPORT TO KEIRY VELAZQUEZ IN ICU.
--- NOTE | 2019-12-06 16:41 | ED.DCSUM_ITS ---
- ER Visit Summary Date of Service: 12/06/19 Chief Complaint: Abnormal behavior History of Present Illness: The patient is a 34 F who I am unable to obtain any history from as she is uncooperative. Per EMS patient was in [place] and a bystander called. They report that she may have overdosed on amitriptyline. Patient will not answer any questions. She does have a history of depression and prior overdoses on amitriptyline. Physical Examination: Vitals: Stable. Afebrile. General: Well-nourished and well-developed. Head: Normocephalic atraumatic. Neck: Supple, no lymphadenopathy. No JVD. Nontender. Cardiovascular: Tachycardic regular rhythm. No murmurs. Respiratory: No respiratory distress. Clear to auscultation bilaterally. Abdominal: Soft, nontender, nondistended, normal bowel sounds. No guarding, rebound, or peritoneal signs. Back: Nontender. Extremities: Nontender, no edema. Skin: Normal color, no rash. Neurologic: Patient has her eyes closed. However, she moves all extremities to painful stimuli. Placed in nasal cannula on her and she took this off and put her on her forehead. Psych: Unable to assess as patient will not speak. Test Results: EKG is sinus tachycardia at [address] changes. Her QRS is 106. This is the only change from June of this year. At that time her QRS was 90. After being given amp of bicarb IV her rate is now 94 and her QRS has narrowed to 90. CBC shows segmented neutrophils of 76 lymphocytes 17. Chem-7 shows a chloride of 108 and glucose 131. LFTs show an ALT of 85 and AST of 54. Tylenol is negative. Aspirin is negative. Talk screen shows benzodiazepines. Alcohol is negative. Clinical Impression(s) from Imaging Studies Brain CT 12/06/19 14:30 IMPRESSION: Stable examination. No acute abnormality is seen. Prior right temporal craniotomy with encephalomalacia in the right temporal lobe. Electronically Signed: Erich Wise, at 14:53 EDT , Service support , Emergency Department Course and Treatment: Given the prolongation of the QRS patient was given an amp of bicarb IV. Her QRS shortened. She was discussed with poison control who state that she needs to be observed for 24 hours before she can be medically cleared for psych. Treatment Plan: Patient was discussed with Dr. Mccloud. She will be admitted to the ICU for further evaluation treatment. Disposition: Admitted in serious condition. Impression: 1. Decreased level of consciousness. 2. History of suicide attempt with amitriptyline. 3. QRS prolongation. 4. Critical care time 33 minutes. This note was generated with [employer] dictation software. It may contain incorrect words, spelling, and punctuation that were not noted in review of the chart prior to signing ED Disposition - Plan for ED Patient: Disposition: Acute Care Hospital [facility]
--- NOTE | 2019-12-06 17:11 | EKG12_ITS ---
Test Reason : Blood Pressure : / mmHG Vent. Rate : 106 BPM Atrial Rate : 106 BPM P-R Int : 184 ms QRS Dur : 106 ms QT Int : 364 ms P-R-T Axes : 045 032 028 degrees QTc Int : 483 ms Sinus tachycardia Otherwise normal ECG When compared with ECG of 06-DEC-2019 16:27, MANUAL COMPARISON REQUIRED, DATA IS UNCONFIRMED Confirmed by MERLY ARCE, SALOME ([id number]), editorial specialist MILY SHAH ([id number]) on 12/10/2019 12:48:14 PM Referred By: LUX Confirmed By:SALOME MORELAND MD
[2019-12-06] MEDS: 0.9% Normal Saline 1,000 ML 150 ML IV (17:37)
[2019-12-06] MEDS: 0.9% Saline Lock 10 ML Syringe IV (21:23)
[2019-12-07] VITALS (17 sets, daily range): BP systolic 115–135; BP diastolic 68–89; PULSE 73–102; RESP 15–19; TEMP 36.3–37; O2SAT 97–100
--- NOTE | 2019-12-07 | EKG12_ITS ---
Test Reason : AM EKG Blood Pressure : / mmHG Vent. Rate : 075 BPM Atrial Rate : 075 BPM P-R Int : 196 ms QRS Dur : 102 ms QT Int : 442 ms P-R-T Axes : 016 030 031 degrees QTc Int : 493 ms Normal sinus rhythm Prolonged QT Abnormal ECG When compared with ECG of 06-DEC-2019 17:26, MANUAL COMPARISON REQUIRED, DATA IS UNCONFIRMED Confirmed by MERLY ARCE, SALOME ([id number]), business editor MILY SHAH ([id number]) on 12/10/2019 12:47:36 PM Referred By: JD Confirmed By:SALOME MORELAND MD
[2019-12-07] MEDS: 0.9% Normal Saline 1,000 ML 150 ML IV (00:19)
[2019-12-07 04:28] LABS: Absolute Lymphocyte Count 1.72 X10^3/uL (0.83-4.51); Absolute Neutrophil Count 5.2 X10^3/uL (2.0-7.7); Basophil# 0.03 X10^3/uL; Basophil% 0.4 % (0-1); Eosinophil# 0.03 X10^3/uL; Eosinophils% 0.4 % (0-5); Hematocrit 39.8 % (37-47); Hemoglobin 13.1 g/dL (12.0-15.0); Lymphocyte # 1.72 X10^3/ul (4.0); Lymphocyte % 22.9 % (19-41); Mean Corp Hgb Conc 32.9 g/dL (32-36); Mean Corpuscular Hgb 29.6 pg (27.0-32.0); Mean Platelet Vol. 9.2 fl (6.2-12.0); Monocyte# 0.47 X10^3/uL; Monocyte% 6.3 % (0-10); NRBC Flagged by Analyzer 0 % (0-5); Neutrophil # 5.24 X10^3/uL (2.7-7.7); Neutrophil % 69.6 % (47-70); Platelet Count 290 K/mm3 (150-450); RBC Distribution Width CV 12.9 % (11.6-14.6); RBC Distribution Width SD 42.6 fl (35.1-43.9); Red Blood Count 4.42 M/mm3 (4.2-5.4); White Blood Count 7.5 K/mm3 (4.4-11.0)
[2019-12-07 04:40] LABS: Anion Gap 1 (5-15); BUN 10 mg/dL (7-18); BUN/Creat Ratio 13.2 RATIO (10-20); Calcium,Total 8.3 mg/dL (8.5-10.1); Chloride 111 mmol/L (98-107); Creatinine, Serum 0.76 mg/dL (0.55-1.02); EST Glomerular Filtration Rate 91 mL/min (>60); Est Glom Filt Rate - Afr Amer 110 mL/min (>60); Estimated Creatinine Clearance 92.08 ml/min; Glucose 97 mg/dL (74-106); Potassium 3.7 mmol/L (3.5-5.1); Sodium Level 142 mmol/L (136-145)
--- NOTE | 2019-12-07 06:00 | EKG12_ITS ---
Test Reason : REPEAT Blood Pressure : / mmHG Vent. Rate : 094 BPM Atrial Rate : 094 BPM P-R Int : 196 ms QRS Dur : 090 ms QT Int : 396 ms P-R-T Axes : 056 056 045 degrees QTc Int : 495 ms Normal sinus rhythm Abnormal ECG Confirmed by MERLY ARCE, SALOME ([id number]), editor managing newspaper MILY SHAH ([id number]) on 12/11/2019 8:41:04 AM Referred By: SAMMI Confirmed By:SALOME MORELAND MD
--- NOTE | 2019-12-07 06:12 | PCM.CON.CC ---
Reason for Consult Date of Consultation: 12/07/19 Reason for Consultation: Encephalopathy History of Present Illness: The patient is a 34-year-old female, with a history as outlined below, who presented to the emergency department on December 05 after being found unresponsive with concern for amitriptyline overdose. The patient was last admitted to the hospital on June 2019 under the same circumstances with an amitriptyline overdose. She was evaluated by crisis services at that time who felt that the patient required inpatient psychiatric treatment. The patient does have a history of prior overdoses requiring hospitalization. On presentation to the emergency department, the patient was noted to be afebrile but was tachycardic and tachypneic. Nevertheless, she was maintaining appropriate oxygen saturations on room air. Laboratory evaluation revealed a normal CBC with differential. Chemistry profile was unremarkable. AST and ALT were mildly elevated to 54 and 85, respectively. Troponin was negative. Toxicology screen was positive for benzodiazepines. Alcohol level was negative. CT head revealed prior right temporal craniotomy with encephalomalacia in the right temporal lobe. The patient received IV bicarbonate push in the emergency department and was transferred to the medical intensive care unit for further management. Overnight, the patient has remained clinically stable. There has been improvement in her QRS duration and QT interval following additional bicarb administered overnight. This morning, the patient's only complaint is for that of being thirsty. She denies any suicidal ideations to me. The patient similarly denied any illicit drug use or tobacco use. She does report occasional alcohol consumption. Past Medical History Past Medical History (Chronic Problems): Chronic Problems (Last Reviewed 06/18/19 @ 16:[address] Foster Peterson DO) Anxiety and depression (Chronic) Bipolar disorder (Chronic) Morbid obesity (Chronic) Hirsutism (Chronic) Polycystic ovarian syndrome (Chronic) Depression (Chronic) Seizure (Chronic) Medical History: Medical History (Last Reviewed 06/18/19 @ 16:[address] Foster Peterson DO) Anxiety and depression F41.8 History of hysteroscopy Z98.890 Allergies phenobarbital Allergy (Verified 12/06/19 13:12) Unknown Home Medications: Ambulatory Orders Medication Instructions Recorded levETIRAcetam tablet [Keppra 1,000 mg PO BREAKFAST 05/24/15 tablet] levETIRAcetam tablet [Keppra 500 mg PO QHS 11/12/15 tablet] Biotin 1 tab PO DAILY 09/06/17 Ferrous Sulfate [Iron] 1 tab PO TID 09/06/17 Cholecalciferol (VIT D3) [Vitamin 2,000 unit PO DAILY 09/05/18 D3] Surgical History: Surgical History (Last Reviewed 06/18/19 @ 16:[address] Foster Peterson DO) H/O dilation and curettage Z98.890 partial labotomy Surgical History: - - D&C, partial lobotomy. 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 Foster Peterson DO) Mother Heart disease History Items: Heart Disease Paternal Family History: Family History (Last Reviewed 06/18/19 @ 16:[address] Foster Peterson DO) Mother Heart disease History Items: Heart Disease Review of Systems Constitutional: Denies: Chills, Fever Eyes: Denies: Blurred vision, Double vision HEENT: Denies: Head Aches, Sinus Congestion, Sinus Drainage Cardiovascular: Denies: Chest Pain, Palpitations Respiratory: Denies: Cough, Shortness of breath at rest, Sputum production Gastrointestinal: Denies: Abdominal Pain, Nausea, Vomiting Genitourinary: Denies: Dysuria Musculoskeletal: Denies: Joint Pain, Joint Tenderness Skin: Denies: Rash, Wounds Neurological: Denies: Numbness, Tingling, Focal weakness Psychiatric: Reports: Depression. Denies: Suicidal Ideations Hematologic/ Lymphatic: Denies: Easy Bruising, Easy Bleeding Objective: The patient's most recent lab work, culture data and imaging studies have all been personally reviewed. - Physical Exam Vitals/I&O's: Vital Signs Temp Pulse Resp BP Pulse Ox 97.9 F 75 19 H 125/85 H 100 12/07/19 00:00 12/07/19 05:00 12/07/19 05:00 12/07/19 05:00 12/07/19 05:00 Oxygen Flow Rate (L/min) 2 Oxygen Delivery Method Room Air Weight: 306 lb 14.135 oz Body Mass Index (BMI) 50.1 Finger Stick Blood Glucose 105 Intake and Output for Last 24 Hours 12/05/19 12/06/19 12/07/19 23:59 23:59 23:59 Intake Total 1000 / 1000 1000 / 1000 Output Total 900 / 900 750 / 750 Balance 100 / 100 250 / 250 General: Alert, Cooperative, - - Still a little bit somnolent but easily arousable to verbal stimulation. HEENT: Atraumatic, Normocephalic Oral: Dry Mucosa Neck: Supple, No Nodes, Trachea Midline Lungs: Normal air movement, No rhonchi, No wheeze, No rales Cardiovascular: Regular rate, Regular Rhythm Abdomen: Bowel Sounds Present, Soft, Non Tender, Obese Extremities: No clubbing, No cyanosis, No edema Skin: No breakdown Musculoskeletal: No Muscle Wasting Lymphatic: No Cervical, Supraclavicular, or Inguinal Adenopathy Neurological: Cranial nerves II-XII grossly intact, Neuro grossly intact Psych/Mental Status: Flat Affect, Depressed Labs (Last 48 Hours) 12/06/19 12/06/19 12/06/19 13:31 13:31 13:31 WBC 7.9 RBC 4.70 Hgb 14.1 Hct 42.2 MCV 89.8 MCH 30.0 MCHC 33.4 RDW Std Deviation 41.4 RDW Coeff of Thomas 12.6 Plt Count 272 MPV 9.7 Immature Gran % (Auto) 0.600 Neut % (Auto) 76.1 H Lymph % (Auto) 17.2 L [place] % (Auto) 5.4 Eos % (Auto) 0.4 Baso % (Auto) 0.3 Absolute Neuts (auto) 6.0 Absolute Lymphs (auto) 1.36 Nucleated RBC % 0 Sodium 139 Potassium 3.5 Chloride 108 H Carbon Dioxide 24.0 Anion Gap 7 BUN 14 Creatinine 0.81 Estim Creat Clear Calc 86.40 Est GFR (MDRD) Af Amer 103 Est GFR (MDRD) Non-Af 85 BUN/Creatinine Ratio 17.3 Glucose 131 H Calcium 8.9 Total Bilirubin 0.40 AST 54 H ALT 85 H Alkaline Phosphatase 74 Troponin I Total Protein 7.5 Albumin 3.4 Globulin 4.1 Albumin/Globulin Ratio 0.8 L Serum , Qual NEGATIVE Salicylates Urine Opiates Screen Urine Methadone Screen Acetaminophen Ur Barbiturates Screen Ur Phencyclidine Scrn Ur Amphetamines Screen U Methamphetamin-MDMA U Benzodiazepines Scrn Urine Cocaine Screen U Cannabinoids Screen Ur Drug Screen Comment Ethyl Alcohol 12/06/19 12/06/19 12/06/19 14:11 15:19 18:15 WBC RBC Hgb Hct MCV MCH MCHC RDW Std Deviation RDW Coeff of Thomas Plt Count MPV Immature Gran % (Auto) Neut % (Auto) Lymph % (Auto) [place] % (Auto) Eos % (Auto) Baso % (Auto) Absolute Neuts (auto) Absolute Lymphs (auto) Nucleated RBC % Sodium Potassium Chloride Carbon Dioxide Anion Gap BUN Creatinine Estim Creat Clear Calc Est GFR (MDRD) Af Amer Est GFR (MDRD) Non-Af BUN/Creatinine Ratio Glucose Calcium Total Bilirubin AST ALT Alkaline Phosphatase Troponin I < 0.015 Total Protein Albumin Globulin Albumin/Globulin Ratio Serum , Qual Salicylates < 1.7 L Urine Opiates Screen NEGATIVE Urine Methadone Screen NEGATIVE Acetaminophen < 2.0 L Ur Barbiturates Screen NEGATIVE Ur Phencyclidine Scrn NEGATIVE Ur Amphetamines Screen NEGATIVE U Methamphetamin-MDMA NEGATIVE U Benzodiazepines Scrn POSITIVE H Urine Cocaine Screen NEGATIVE U Cannabinoids Screen NEGATIVE Ur Drug Screen Comment Ethyl Alcohol < 3.0 12/06/19 12/07/19 12/07/19 21:10 00:00 04:20 WBC 7.5 RBC 4.42 Hgb 13.1 Hct 39.8 MCV 90.0 MCH 29.6 MCHC 32.9 RDW Std Deviation 42.6 RDW Coeff of Thomas 12.9 Plt Count 290 MPV 9.2 Immature Gran % (Auto) 0.400 Neut % (Auto) 69.6 Lymph % (Auto) 22.9 [place] % (Auto) 6.3 Eos % (Auto) 0.4 Baso % (Auto) 0.4 Absolute Neuts (auto) 5.2 Absolute Lymphs (auto) 1.72 Nucleated RBC % 0 Sodium Potassium Chloride Carbon Dioxide Anion Gap BUN Creatinine Estim Creat Clear Calc Est GFR (MDRD) Af Amer Est GFR (MDRD) Non-Af BUN/Creatinine Ratio Glucose Calcium Total Bilirubin AST ALT Alkaline Phosphatase Troponin I < 0.015 < 0.015 Total Protein Albumin Globulin Albumin/Globulin Ratio Serum , Qual Salicylates Urine Opiates Screen Urine Methadone Screen Acetaminophen Ur Barbiturates Screen Ur Phencyclidine Scrn Ur Amphetamines Screen U Methamphetamin-MDMA U Benzodiazepines Scrn Urine Cocaine Screen U Cannabinoids Screen Ur Drug Screen Comment Ethyl Alcohol 12/07/19 04:20 WBC RBC Hgb Hct MCV MCH MCHC RDW Std Deviation RDW Coeff of Thomas Plt Count MPV Immature Gran % (Auto) Neut % (Auto) Lymph % (Auto) [place] % (Auto) Eos % (Auto) Baso % (Auto) Absolute Neuts (auto) Absolute Lymphs (auto) Nucleated RBC % Sodium 142 Potassium 3.7 Chloride 111 H Carbon Dioxide 30.0 Anion Gap 1 L BUN 10 Creatinine 0.76 Estim Creat Clear Calc 92.08 Est GFR (MDRD) Af Amer 110 Est GFR (MDRD) Non-Af 91 BUN/Creatinine Ratio 13.2 Glucose 97 Calcium 8.3 L Total Bilirubin AST ALT Alkaline Phosphatase Troponin I Total Protein Albumin Globulin Albumin/Globulin Ratio Serum , Qual Salicylates Urine Opiates Screen Urine Methadone Screen Acetaminophen Ur Barbiturates Screen Ur Phencyclidine Scrn Ur Amphetamines Screen U Methamphetamin-MDMA U Benzodiazepines Scrn Urine Cocaine Screen U Cannabinoids Screen Ur Drug Screen Comment Ethyl Alcohol Clinical Impression(s) from Imaging Studies Brain CT 12/06/19 14:30 IMPRESSION: Stable examination. No acute abnormality is seen. Prior right temporal craniotomy with encephalomalacia in the right temporal lobe. Electronically Signed: Erich Wise, at 14:53 EDT , Service support , Current Medications Enoxaparin Sodium (Lovenox) 40 mg SC DAILY [facility] Sodium Chloride () 250 mls @ 15 mls/hr IV .[id number] PRN PRN Reason: Saline Flush Sodium Chloride () 250 mls @ 15 mls/hr IV .[id number] PRN PRN Reason: Additional IVPB Infusion Sodium Chloride () 1,000 mls @ 150 mls/hr IV .[id number] Stop: 12/07/19 06:34 Last Admin: 12/07/19 00:19 Dose: 150 mls/hr Documented by: Nitroglycerin (Nitrostat) 0.4 mg SUBLINGUAL Q5M PRN PRN Reason: CARDIAC/CHEST PAIN Ondansetron HCl (Zofran) 4 mg IV Q8H PRN PRN PRN Reason: NAUSEA/VOMITING Sodium Chloride () 10 - 40 ml IV UD PRN PRN Reason: SALINE FLUSH Last Admin: 12/06/19 21:23 Dose: 10 ml Documented by: Assessment/Plan RECOMMENDATIONS: 1. Continue to monitor QRS duration and QT interval closely. 2. Okay to advance diet from my perspective. 3. Resume home antiepileptic medications. 4. Crisis evaluation. 5. The patient is medically stable for transfer out of the intensive care unit. IMPRESSIONS: 1. Acute toxic/metabolic encephalopathy Likely secondary to presumed overdose of amitriptyline. The patient was treated with sodium bicarbonate in the emergency department and on arrival to the ICU. Her QRS duration and QT interval have improved. She is more alert and interactive this morning. She is hemodynamically stable and maintaining appropriate oxygen saturations on room air. Patient will require crisis evaluation. She is otherwise medically stable for transfer out of the ICU. 2. History of anxiety and depression/unspecified seizure disorder/obesity Complicates care, management, recovery and prognosis. Continue home medications as indicated. This note was generated with [employer] dictation software. It may contain incorrect words, spelling, and punctuation that were not noted in checking the note before signing. Inpatient E&M: 64881 Init Hosp L3
--- NOTE | 2019-12-07 07:42 | PN_ITS ---
Subjective: Patient with no acute events overnight since admission with improvement of mental status has had been unresponsive with concern for amitriptyline overdose. Patient is unable to give any specific intake of amitriptyline numbers. Patient was admitted with similar situation previously with crisis evaluation prior with recommendation for inpatient psychiatric treatment at that time. Patient has history of prior overdoses requiring similar hospitalization. She notes that she has not seen her therapist since September. Patient remains flat affect, decreased voice, similar to prior. Patient with initially prolonged QRS duration and QT interval with bicarb administration overnight with improvement. Noted to patient given clinical improvement and medical clearance plan to transition to PCU and crisis evaluation. Patient denies fevers, chills, nausea, emesis, abdominal pain, chest pain or dyspnea. Objective: Physical Examination: General: awake, alert, oriented x 3 and cooperative, seated upright in the ICU bed in no apparent distress. Skin: normal color, turgor, no icterus, cyanosis. HEENT: AT/NC, EOMI, PERRLA, dry MM, facial hair present, no carotid bruits or JVD noted. Lungs: CTA bilaterally, moderate effort, moderate decrease BL bases, no rales, ronchi or wheezing. Heart: Regular rate and rhythm; no gallop, rub audible. Abdomen: soft, morbidly obese, NTTP, ND, normal BS. Extremities: no cyanosis, clubbing, mild ankle edema. Neurological: patient awake, alert, oriented x 3; cognitive function intact; pupils equally reactive to light and accomodation; cranial nerves II-XII grossly normal, moving all 4 extremities, no focal deficits, strength appears preserved. Psychiatric: affect appears flat, took some effort to get her to be involved in conversation, soft voice, evident depressive feelings, no obvious anxiety. Vitals/I&O's: Vital Signs Temp Pulse Resp BP Pulse Ox 97.9 F 75 17 128/84 H 98 12/07/19 00:00 12/07/19 06:00 12/07/19 06:00 12/07/19 06:12/07/19 06:00 Oxygen Flow Rate (L/min) 2 Oxygen Delivery Method Room Air Weight: 306 lb 14.135 oz Body Mass Index (BMI) 50.1 Finger Stick Blood Glucose 105 Intake and Output for Last 24 Hours 09/24/20 09/25/20 09/26/20 23:59 23:59 23:59 Intake Total 1000 / 1000 1000 / 1000 Output Total 900 / 900 750 / 750 Balance 100 / 100 250 / 250 Laboratory Results 12/06/19 13:31: WBC 7.9, RBC 4.70, Hgb 14.1, Hct 42.2, MCV 89.8, MCH 30.0, MCHC 33.4, RDW Std Deviation 41.4, RDW Coeff of Thomas 12.6, Plt Count 272, MPV 9.7, Immature Gran % (Auto) 0.600, Neut % (Auto) 76.1 H, Lymph % (Auto) 17.2 L, Harper % (Auto) 5.4, Eos % (Auto) 0.4, Baso % (Auto) 0.3, Absolute Neuts (auto) 6.0, Absolute Lymphs (auto) 1.36, Nucleated RBC % 0 12/06/19 13:31: Sodium 139, Potassium 3.5, Chloride 108 H, Carbon Dioxide 24.0, Anion Gap 7, BUN 14, Creatinine 0.81, Estim Creat Clear Calc 86.40, Est GFR (MDRD) Af Amer 103, Est GFR (MDRD) Non-Af 85, BUN/Creatinine Ratio 17.3, Glucose 131 H, Calcium 8.9, Total Bilirubin 0.40, AST 54 H, ALT 85 H, Alkaline Phosphatase 74, Total Protein 7.5, Albumin 3.4, Globulin 4.1, Albumin/Globulin Ratio 0.8 L 12/06/19 13:31: Serum , Qual NEGATIVE 12/06/19 14:11: Salicylates < 1.7 L, Acetaminophen < 2.0 L, Ethyl Alcohol < 3.0 12/06/19 15:19: Urine Opiates Screen NEGATIVE, Urine Methadone Screen NEGATIVE, Ur Barbiturates Screen NEGATIVE, Ur Phencyclidine Scrn NEGATIVE, Ur Amphetamines Screen NEGATIVE, U Methamphetamin-MDMA NEGATIVE, U Benzodiazepines Scrn POSITIVE H, Urine Cocaine Screen NEGATIVE, U Cannabinoids Screen NEGATIVE, Ur Drug Screen Comment 12/06/19 18:15: Troponin I < 0.015 12/06/19 21:10: Troponin I < 0.015 12/07/19 00:00: Troponin I < 0.015 12/07/19 04:20: WBC 7.5, RBC 4.42, Hgb 13.1, Hct 39.8, MCV 90.0, MCH 29.6, MCHC 32.9, RDW Std Deviation 42.6, RDW Coeff of Thomas 12.9, Plt Count 290, MPV 9.2, Immature Gran % (Auto) 0.400, Neut % (Auto) 69.6, Lymph % (Auto) 22.9, Harper % (Auto) 6.3, Eos % (Auto) 0.4, Baso % (Auto) 0.4, Absolute Neuts (auto) 5.2, Absolute Lymphs (auto) 1.72, Nucleated RBC % 0 12/07/19 04:20: Sodium 142, Potassium 3.7, Chloride 111 H, Carbon Dioxide 30.0, Anion Gap 1 L, BUN 10, Creatinine 0.76, Estim Creat Clear Calc 92.08, Est GFR (MDRD) Af Amer 110, Est GFR (MDRD) Non-Af 91, BUN/Creatinine Ratio 13.2, Glucose 97, Calcium 8.3 L Current Medications Enoxaparin Sodium (Lovenox) 40 mg SC DAILY VIKASH Sodium Chloride () 250 mls @ 15 mls/hr IV .[id number] PRN PRN Reason: Saline Flush Sodium Chloride () 250 mls @ 15 mls/hr IV .[id number] PRN PRN Reason: Additional IVPB Infusion Nitroglycerin (Nitrostat) 0.4 mg SUBLINGUAL Q5M PRN PRN Reason: CARDIAC/CHEST PAIN Ondansetron HCl (Zofran) 4 mg IV Q8H PRN PRN PRN Reason: NAUSEA/VOMITING Sodium Chloride () 10 - 40 ml IV UD PRN PRN Reason: SALINE FLUSH Last Admin: 12/06/19 21:23 Dose: 10 ml Documented by: STROKE Vital Signs/Narrative: Vital Signs Pulse Resp BP Pulse Ox 12/07/19 06:00 75 17 128/84 H 98 12/07/19 05:00 75 19 H 125/85 H 100 12/07/19 04:00 77 18 127/89 H 100 Medical Necessity - Tobacco Use Smoking Status: Unknown if ever smoked Assessment/Plan All Active Problems (Last Reviewed 06/18/19 @ 16:[address] Foster Peterson DO) Intentional amitriptyline overdose (Acute) Encephalopathy acute (Acute) Suicide attempt by drug ingestion (Acute) The patient is a 34 y/o F w/ PMHx: PCOS, Morbid Obesity, Anxiety and Depression/Bipolar disorder, Seizure disorder who presents to the [facility] ED on 12/06/19 with history of being found unresponsive by bystanders who called EMS with concern for amitriptyline overdose with decreased willingness to interact with staff at that time but patient has had similar presentations prior. 1. Acute encephalopathy secondary to suspected purposeful overdose with underlying depression and anxiety/bipolar disorder, uncontrolled suicidal: Work- up in the ED included stable vital signs with temperature T 98.8, BP 101/59, heart rate 107, respiratory rate 15, 95% on 2 L nasal cannula, unremarkable chemistry, unremarkable CBC, CT of the brain with evidence prior right temporal craniotomy with encephalomalacia in the right temporal lobe with no acute intracranial finding otherwise, EKG with sinus tachycardia with a prolonged QRS. ED did discuss case with poison control and given EKG findings and recommended that patient be given an amp of bicarb with close continued monitoring in the ICU. Patient's Tylenol screen was negative as well as aspirin negative. Urine tox screen did demonstrate benzodiazepines. Alcohol level was negative. Patient was noted to the ICU as noted, continue telemetry monitoring and repeat EKGs were performed with improvement of QRS. Given patient clinical improvement and resolution requested crisis consultation for overdose attempt with underlying depression, uncontrolled. Expect patient necessity for transition to acute psychiatric facility. 2. Elevated LFTs: Admission AST/ALT 54/85, has had similar elevations in the past with similar presentation, expect improvement, trend. 3. Iron deficiency anemia: Admission hemoglobin 14.1, repeat 13.1, continued iron supplementation, continue to encourage outpatient follow-up as appropriate. 4. Seizure disorder: We will continue patient home Keppra regimen. 5. PCOS: Patient not on metformin, will encourage outpatient follow-up at this time given acute presentation. 6. Morbid Obesity: Weight loss and lifestyle changes encouraged, nutrition consulted. 7. DVT prophylaxis: Lovenox therapy. Inpatient E&M: 01763 Subs Hosp L2
--- NOTE | 2019-12-07 08:53 | NURSING ---
Report called to [id number]
[2019-12-07] MEDS: Enoxaparin 40 MG/0.4 ML Syringe SC (09:05)
--- NOTE | 2019-12-07 10:40 | CASEMGMT ---
SOCIAL WORK Checked in with staff regarding patient, spoke with charge nurse, Shobha. Updated patient is medically cleared and Crisis has been called to evaluate patient. Plan: Pending Crisis evaluation Sunny Arroyo, [employer]ER, PATHOLOGY MANAGER
[2019-12-07 11:46] LABS: AST(SGOT) 44 U/L (15-37); Alanine Aminotransfer ALT/SGPT 77 U/L (13-56); Albumin, Serum 3.1 g/dL (3.2-5.0); Alkaline Phosphatase 65 U/L (45-117); Bilirubin, Direct 0.15 mg/dL (0.00-0.30); Globulin 3.8 g/dL (2.2-4.2); Protein, Total 6.9 g/dL (6.4-8.2)
--- NOTE | 2019-12-07 11:59 | DCINST_ITS ---
- Discharge Diagnoses Current Active Problems: 1. Acute encephalopathy secondary to suspected purposeful overdose with underlying depression and anxiety/bipolar disorder, uncontrolled, suicidal 2. Elevated LFTs, improving, likely secondary to #1, previously similar with acute similar presentation 3. Iron deficiency anemia 4. Seizure disorder 5. PCOS 6. Morbid Obesity You will use the following diet at home:: Other - Recommend strongly low fat/low sugar diet with small meals. Your food should be the consistency of: Regular Your liquids should be the consistency of: Regular/Thin Discharge Activity: - - Avoid driving until cleared given recent overdose. Encourage routine activity. Call your doctor if you observe: Fever of 101 or Higher, Inability to urinate, Inability to have a bowel movement, Shortness of breath, Dizziness, Fainting spells, Chest pain, Uncontrolled pain Instructions: ED Overdose Intentional Adult, Recognizing Suicide Warning Signs in Yourself, Know the Signs and Symptoms of Depression, Warning Signs of Suicide and What You Can Do Additional Instructions: Given overdose, planned Crisis evaluation with planned Psychiatric facility placement. At your transition xanax and amitriptyline were held secondary to your recent overdose. Psychiatry may decide further your regimen. Allergies/Adverse Reactions: Allergies phenobarbital Allergy (Verified 12/06/19 13:12) Unknown Medications to take at Discharge levETIRAcetam tablet [Keppra tablet] 1,000 mg PO BREAKFAST 05/24/15 levETIRAcetam tablet [Keppra tablet] 500 mg PO QHS 11/12/15 Biotin 1 tab PO DAILY 09/06/17 Ferrous Sulfate [Iron] 1 tab PO TID 09/06/17 Cholecalciferol (VIT D3) [Vitamin D3] 2,000 unit PO DAILY 09/05/18 Medroxyprogesterone Acetate [Provera] 10 mg PO DAILY 09/05/18 Primary Care Physician: Care Physician,No Primary [Primary Care Provider] - Please follow up with your Primary Care Physician in: Please establish with primary care physician. Test Results: Test results from this visit will be discussed in further detail at your follow- up appointment, if applicable. Please Follow Up With: Crisis Care Team/Therapy/Psychology/Psychiatry When: Encourage follow-up as arranged per their service.
--- NOTE | 2019-12-07 12:13 | DS.PCM_ITS ---
Discharge Date and Diagnosis Date of Admission: 12/06/19 Date of Discharge: 12/07/19 - Primary Discharge Diagnosis Acute Problems: 1. Acute encephalopathy secondary to suspected purposeful overdose with underlying depression and anxiety/bipolar disorder, uncontrolled, suicidal 2. Elevated LFTs, improving, likely secondary to #1, previously similar with acute similar presentation 3. Iron deficiency anemia 4. Seizure disorder 5. PCOS 6. Morbid Obesity - Secondary Discharge Diagnosis Chronic Problems: Chronic Problems (Last Reviewed 06/18/19 @ 16:[address] Foster Peterson, DO) Anxiety and depression (Chronic) Bipolar disorder (Chronic) Morbid obesity (Chronic) Hirsutism (Chronic) Polycystic ovarian syndrome (Chronic) Depression (Chronic) Seizure (Chronic) Hospital Course and Treatment Consultations 12/07/19 07:47 Consult: Mental Health/Crisis Routine Reason for consult?: OD attempt. Clinically stable. Needs placed. Took amitriptyline. Date Notified:: 12/07/19 Time Notified:: 09:44 Operations: None Procedures: EKG Summary of Care Provided: The patient is a 34 y/o F w/ PMHx: PCOS, Morbid Obesity, Anxiety and Depression/Bipolar disorder, Seizure disorder who presented to the [facility] ED on 12/06/19 with history of being found unresponsive by bystanders who called EMS with concern for amitriptyline overdose with decreased willingness to interact with staff at that time but patient has had similar presentations prior. Work-up in the ED included stable vital signs with temperature T 98.8, BP 101/59, heart rate 107, respiratory rate 15, 95% on 2 L nasal cannula, unremarkable chemistry, unremarkable CBC, CT of the brain with evidence prior right temporal craniotomy with encephalomalacia in the right temporal lobe with no acute intracranial finding otherwise, EKG with sinus tachycardia with a prolonged QRS. ED did discuss case with poison control and given EKG findings and recommended that patient be given an amp of bicarb with close continued monitoring in the ICU. Patient's Tylenol screen was negative as well as aspirin negative. Urine tox screen did demonstrate benzodiazepines. Alcohol level was negative. Patient was noted to the ICU as noted, continue telemetry monitoring and repeat EKGs were performed with improvement of QRS. Given patient clinical improvement and resolution requested crisis consultation for overdose attempt with underlying depression, uncontrolled. Expected patient necessity for transition to acute psychiatric facility. Of note, during admission noted AST/ALT 54/85, repeat improved with similar elevations in the past with similar presentation, expected ongoing improvement, trend. Admission hemoglobin 14.1, repeat 13.1, continued iron supplementation, stable at baseline. Continued home keppra regimen with clarification. Patient with hx PCOS, not on metformin, encouraged outpatient follow-up at this time given acute presentation. - Physical Exam Vitals/I&O's: Vital Signs Temp Pulse Resp BP Pulse Ox 97.8 F 80 16 119/68 98 12/07/19 12:00 12/07/19 12:00 12/07/19 12:00 12/07/19 12:00 12/07/19 12:00 Oxygen Flow Rate (L/min) 2 Oxygen Delivery Method Room Air Weight: 306 lb 14.135 oz Body Mass Index (BMI) 50.1 Finger Stick Blood Glucose 105 Intake and Output for Last 24 Hours 12/05/19 12/06/19 12/07/19 23:59 23:59 23:59 Intake Total 1000 / 1000 2300 / 2300 Output Total 900 / 900 750 / 750 Balance 100 / 100 1550 / 1550 Laboratory Results 12/06/19 13:31: WBC 7.9, RBC 4.70, Hgb 14.1, Hct 42.2, MCV 89.8, MCH 30.0, MCHC 33.4, RDW Std Deviation 41.4, RDW Coeff of Thomas 12.6, Plt Count 272, MPV 9.7, Immature Gran % (Auto) 0.600, Neut % (Auto) 76.1 H, Lymph % (Auto) 17.2 L, Bladen % (Auto) 5.4, Eos % (Auto) 0.4, Baso % (Auto) 0.3, Absolute Neuts (auto) 6.0, Absolute Lymphs (auto) 1.36, Nucleated RBC % 0 12/06/19 13:31: Sodium 139, Potassium 3.5, Chloride 108 H, Carbon Dioxide 24.0, Anion Gap 7, BUN 14, Creatinine 0.81, Estim Creat Clear Calc 86.40, Est GFR (MDRD) Af Amer 103, Est GFR (MDRD) Non-Af 85, BUN/Creatinine Ratio 17.3, Glucose 131 H, Calcium 8.9, Total Bilirubin 0.40, AST 54 H, ALT 85 H, Alkaline Phosphatase 74, Total Protein 7.5, Albumin 3.4, Globulin 4.1, Albumin/Globulin Ratio 0.8 L 12/06/19 13:31: Serum , Qual NEGATIVE 12/06/19 14:11: Salicylates < 1.7 L, Acetaminophen < 2.0 L, Ethyl Alcohol < 3.0 12/06/19 15:19: Urine Opiates Screen NEGATIVE, Urine Methadone Screen NEGATIVE, Ur Barbiturates Screen NEGATIVE, Ur Phencyclidine Scrn NEGATIVE, Ur Amphetamines Screen NEGATIVE, U Methamphetamin-MDMA NEGATIVE, U Benzodiazepines Scrn POSITIVE H, Urine Cocaine Screen NEGATIVE, U Cannabinoids Screen NEGATIVE, Ur Drug Screen Comment 12/06/19 18:15: Troponin I < 0.015 12/06/19 21:10: Troponin I < 0.015 12/07/19 00:00: Troponin I < 0.015 12/07/19 00:00: Total Bilirubin 0.40, Direct Bilirubin 0.15, AST 44 H, ALT 77 H, Alkaline Phosphatase 65, Total Protein 6.9, Albumin 3.1 L, Globulin 3.8 12/07/19 04:20: WBC 7.5, RBC 4.42, Hgb 13.1, Hct 39.8, MCV 90.0, MCH 29.6, MCHC 32.9, RDW Std Deviation 42.6, RDW Coeff of Thomas 12.9, Plt Count 290, MPV 9.2, Immature Gran % (Auto) 0.400, Neut % (Auto) 69.6, Lymph % (Auto) 22.9, Bladen % (Auto) 6.3, Eos % (Auto) 0.4, Baso % (Auto) 0.4, Absolute Neuts (auto) 5.2, Absolute Lymphs (auto) 1.72, Nucleated RBC % 0 12/07/19 04:20: Sodium 142, Potassium 3.7, Chloride 111 H, Carbon Dioxide 30.0, Anion Gap 1 L, BUN 10, Creatinine 0.76, Estim Creat Clear Calc 92.08, Est GFR (MDRD) Af Amer 110, Est GFR (MDRD) Non-Af 91, BUN/Creatinine Ratio 13.2, Glucose 97, Calcium 8.3 L Current Medications Enoxaparin Sodium (Lovenox) 40 mg SC DAILY VIKASH Last Admin: 12/07/19 09:05 Dose: 40 mg Documented by: Ferrous Sulfate (Ferrous Sulfate) 325 mg PO TIDCM VIKASH Sodium Chloride () 250 mls @ 15 mls/hr IV .[id number] PRN PRN Reason: Saline Flush Sodium Chloride () 250 mls @ 15 mls/hr IV .[id number] PRN PRN Reason: Additional IVPB Infusion Levetiracetam (Keppra Tablet) 1,000 mg PO BREAKFAST VIKASH Levetiracetam (Keppra Tablet) 500 mg PO QHS VIKASH Nitroglycerin (Nitrostat) 0.4 mg SUBLINGUAL Q5M PRN PRN Reason: CARDIAC/CHEST PAIN Ondansetron HCl (Zofran) 4 mg IV Q8H PRN PRN PRN Reason: NAUSEA/VOMITING Sodium Chloride () 10 - 40 ml IV UD PRN PRN Reason: SALINE FLUSH Last Admin: 12/06/19 21:23 Dose: 10 ml Documented by: Discharge Activity: - - Avoid driving until cleared given recent overdose. Encourage routine activity. Call your doctor if you observe: Fever of 101 or Higher, Inability to urinate, Inability to have a bowel movement, Shortness of breath, Dizziness, Fainting spells, Chest pain, Uncontrolled pain Home Medications: Medications to take at Discharge levETIRAcetam tablet [Keppra tablet] 1,000 mg PO BREAKFAST 05/24/15 levETIRAcetam tablet [Keppra tablet] 500 mg PO QHS 11/12/15 Biotin 1 tab PO DAILY 09/06/17 Ferrous Sulfate [Iron] 1 tab PO TID 09/06/17 Cholecalciferol (VIT D3) [Vitamin D3] 2,000 unit PO DAILY 09/05/18 Medroxyprogesterone Acetate [Provera] 10 mg PO DAILY 09/05/18 Primary Care Physician: Care Physician,No Primary [Primary Care Provider] - Please follow up with your Primary Care Physician in: Please establish with primary care physician. Please Follow Up With: Crisis Care Team/Therapy/Psychology/Psychiatry When: Encourage follow-up as arranged per their service. Patient Instructions: Know the Signs and Symptoms of Depression, Warning Signs of Suicide and What You Can Do, Recognizing Suicide Warning Signs in Yourself, ED Overdose Intentional Adult Disposition: Psych Hospital or Unit Minutes spent on discharge:: 35 Patient Condition:: Fair Medical Necessity - Tobacco Use Smoking Status: Unknown if ever smoked Meaningful Use Info Meaningful Use Diagnoses (Choose all that apply): None applicable Inpatient E&M: [id number] Disch Hosp
[2019-12-07] MEDS: Ferrous Sulfate 325 MG Tablet PO (14:06)
--- NOTE | 2019-12-07 17:34 | NURSING ---
Paco from [facility] for Psychiatry phoned wanting update on patient's condition. Updated and informed patient is medically cleared per Dr. Kamara.
[2019-12-07] MEDS: levETIRAcetam 500 MG Tablet PO (21:06)
== END 2019-12-07 23:25 | DRG 917 ==
LOC: ED 14:26 → ICU 12-07 07:18 → PCU 12-31 09:51
PROVIDERS: Admitting Provider Student in an Organized Health Care Education/Training Program; Emergency Provider Emergency Medicine; Visit Provider Family Medicine
DX: T43.012A Poisoning by tricyclic antidepressants, intentional self-harm, initial encounter (principal); F31.9 Bipolar disorder, unspecified; G92 Toxic encephalopathy; Z68.43 Body mass index [BMI] 50.0-59.9, adult; F41.9 Anxiety disorder, unspecified; E28.2 Polycystic ovarian syndrome; G40.909 Epilepsy, unspecified, not intractable, without status epilepticus; E66.01 Morbid (severe) obesity due to excess calories; R79.89 Other specified abnormal findings of blood chemistry; D50.9 Iron deficiency anemia, unspecified; R94.31 Abnormal electrocardiogram [ECG] [EKG]; Z79.899 Other long term (current) drug therapy; Z91.5 Personal history of self-harm
CPT/HCPCS: 70450; 80048; 80053; 80076; 80307; 80320; 80329; 84484; 84703; 85025; 93005; 96361; 96372; 96374; 96376; 99218; 99285; J7030; P9612; A4216; G0378; G0480

== ENCOUNTER 2020-01-24 19:26 | Emergency (ER) | payer MEDICARE, MEDICAID, SELFPAY ==
[2019-12-06 16:56] VITALS: BMI 50.1
[2020-01-24 19:27] VITALS: BP 159/91; PULSE 88; RESP 16; TEMP 36.2; O2SAT 100; BMI 51.3
--- NOTE | 2020-01-24 20:14 | ED.VISSUMM ---
- ER Visit Summary Date of Service: 01/24/20 Chief Complaint: Lightheadedness History of Present Illness: The patient is a 34 F who presents with lightheadedness for the past 2 weeks. Patient states she has been having constant vaginal bleeding for the past month. Patient states it has been heavy. Patient states she has had similar episode in the past approximately 3 years ago when she had to have a D&C. Patient states her lightheadedness feels like she is going to pass out. Patient states it is better with drinking water and deep breathing. Patient did not contact her TELEMARKETING MANAGER. Physical Examination: Vital signs are stable. Patient is afebrile. Patient is in no acute distress. Oral mucosa is pink and moist. Neck is supple. Trachea is midline. There is no JVD noted. Heart was regular rate and rhythm. Lungs are clear and equal bilaterally. Abdomen is soft. Bowel sounds are normal. There is no tenderness. There is no rebound or guarding noted. Skin is warm dry. Cranial nerves II through XII are intact. There are no focal motor or sensory deficits noted. Extremities are intact. There is no calf tenderness or edema. Test Results: CBC was within normal limits. PT with INR and PTT were normal. hCG was negative. Emergency Department Course and Treatment: Patient was advised that her hemoglobin is normal. Patient was advised to follow-up with her TELEMARKETING MANAGER in 3 to 5 days. Patient was instructed to return if worse in any way. Patient understood and was agreeable with the plan. All questions were answered. Disposition: Discharge home Impression: Menorrhagia This note was generated with [employer] dictation software. It may contain incorrect words, spelling, and punctuation that were not noted in review of the chart prior to signing ED Disposition - Plan for ED Patient: Disposition: Home or Assisted Living Diagnosis: Menorrhagia Instructions: ED Bleeding Menstrual Heavy Referrals: Abdirashid Vazquez DO [Primary Care Provider] - 3-5 Days
[2020-01-24 20:36] LABS: Absolute Lymphocyte Count 1.84 X10^3/uL (0.83-4.51); Absolute Neutrophil Count 4.8 X10^3/uL (2.0-7.7); Basophil# 0.04 X10^3/uL; Basophil% 0.5 % (0-1); Eosinophil# 0.04 X10^3/uL; Eosinophils% 0.5 % (0-5); Hematocrit 40.4 % (37-47); Hemoglobin 13.9 g/dL (12.0-15.0); Lymphocyte # 1.84 X10^3/ul (4.0); Lymphocyte % 24.9 % (19-41); Mean Corp Hgb Conc 34.4 g/dL (32-36); Mean Corpuscular Volume 87.3 fL (81-99); Mean Platelet Vol. 9.6 fl (6.2-12.0); Monocyte# 0.59 X10^3/uL; NRBC Flagged by Analyzer 0 % (0-5); Neutrophil # 4.84 X10^3/uL (2.7-7.7); Neutrophil % 65.7 % (47-70); Platelet Count 341 K/mm3 (150-450); RBC Distribution Width SD 38.1 fl (35.1-43.9); Red Blood Count 4.63 M/mm3 (4.2-5.4); White Blood Count 7.4 K/mm3 (4.4-11.0)
[2020-01-24 20:45] LABS: International Normalized Ratio 1.2; Prothrombin Time (Protime)PT. 14.2 SECONDS (11.7-14.9)
[2020-01-24 20:46] LABS: Partial Thromboplast Time 24.5 Seconds (24.1-36.2)
[2020-01-24 21:20] LABS: Internal QC Validated? YES +Cl - CLEAR BKGD; Pregnancy, Serum, hCG Quali. NEGATIVE Negative
[2020-01-24 23:12] VITALS: BP 140/89; PULSE 76; RESP 16
== END 2020-01-24 23:13 | disposition home or self-care (01) ==
PROVIDERS: Emergency Provider Emergency Medicine; PCP Student in an Organized Health Care Education/Training Program
DX: N92.0 Excessive and frequent menstruation with regular cycle (principal); R42 Dizziness and giddiness; E66.9 Obesity, unspecified
CPT/HCPCS: 84703; 85025; 85610; 85730; 99283; A4216

== ENCOUNTER 2020-06-07 00:33 | Emergency (ER) | payer MEDICARE, MEDICAID, SELFPAY ==
[2020-06-07 00:38] VITALS: BP 167/97; PULSE 107; RESP 16; TEMP 36.6; O2SAT 98; BMI 54.5
--- NOTE | 2020-06-07 00:39 | CT_ITS ---
STUDY: CT BRAIN WITHOUT CONTRAST REASON FOR EXAM: Female, 34 years old. trauma RADIATION DOSAGE (If Supplied By Facility): CTDIvol = ( 44.99 ) mGy, DLP = ( 846.73 ) mGycm TECHNIQUE: Transaxial CT imaging of the brain was performed without administration of intravenous contrast material. Individualized dose optimization techniques were used for this CT. COMPARISON: 12/06/2019. FINDINGS: The patient is status post right-sided craniotomy. This is stable. Otherwise normal calvarium. There is mild cerebral atrophy with widening of the extra-axial spaces and ventricular dilatation. There is encephalomalacia at the level of the right temporal lobe, stable in the interval and most likely related to previous surgery. Otherwise unremarkable right matter tracts of the cerebral hemispheres. Normal basal ganglia and thalami. Normal brainstem. Normal cerebellum. There is no intracranial hemorrhage. There are no findings of an acute ischemic infarction. Normal visualized paranasal sinuses. CT/Brain/Head without Contrast IMPRESSION: Involutional changes along with postoperative changes and encephalomalacia of the right temporal lobe, likely postsurgical. No acute intracranial hemorrhage or space-occupying lesion. Electronically Signed: Cassidy Lema MD at 1:22 EDT , Service support ,
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
[2020-06-07 01:38] VITALS: BP 147/82; PULSE 74; RESP 18; TEMP 36.6
== END 2020-06-07 01:41 | disposition home or self-care (01) ==
PROVIDERS: Emergency Provider Emergency Medicine
DX: S00.01XA Abrasion of scalp, initial encounter (principal); E66.9 Obesity, unspecified; X79.XXXA Intentional self-harm by blunt object, initial encounter; Y93.89 Activity, other specified; Y92.039 Unspecified place in apartment as the place of occurrence of the external cause; Y99.8 Other external cause status
CPT/HCPCS: 70450; 99284

== ENCOUNTER 2020-07-28 22:11 | Emergency (ER) | payer MEDICARE, MEDICAID, SELFPAY ==
[2020-07-28 22:12] VITALS: BP 164/99; PULSE 104; RESP 18; TEMP 36.3; O2SAT 97; BMI 51.5
[2020-07-28 22:52] LABS: Absolute Lymphocyte Count 2.31 X10^3/uL (0.83-4.51); Basophil# 0.05 X10^3/uL; Basophil% 0.7 % (0-1); Eosinophil# 0.06 X10^3/uL; Eosinophils% 0.9 % (0-5); Hematocrit 43.7 % (37-47); Hemoglobin 14.8 g/dL (12.0-15.0); Lymphocyte # 2.31 X10^3/ul (0.83-4.51); Lymphocyte % 33.2 % (19-41); Mean Corp Hgb Conc 33.9 g/dL (32-36); Mean Corpuscular Hgb 29.5 pg (27.0-32.0); Mean Corpuscular Volume 87.2 fL (81-99); Mean Platelet Vol. 9.6 fl (6.2-12.0); Monocyte% 7.2 % (0-10); NRBC Flagged by Analyzer 0 % (0-5); Neutrophil # 4.01 X10^3/uL (2.7-7.7); Neutrophil % 57.7 % (47-70); Platelet Count 336 K/mm3 (150-450); RBC Distribution Width CV 11.7 % (11.6-14.6); RBC Distribution Width SD 37.4 fl (35.1-43.9); Red Blood Count 5.01 M/mm3 (4.2-5.4)
[2020-07-28 23:06] LABS: Anion Gap 9 (5-15); BUN 12 mg/dL (7-18); BUN/Creat Ratio 13.6 RATIO (10-20); Calcium,Total 9.3 mg/dL (8.5-10.1); Chloride 107 mmol/L (98-107); Creatinine, Serum 0.88 mg/dL (0.55-1.02); EST Glomerular Filtration Rate 77 mL/min (>60); Est Glom Filt Rate - Afr Amer 93 mL/min (>60); Estimated Creatinine Clearance 75.58 ml/min; Glucose 97 mg/dL (74-106); Potassium 3.3 mmol/L (3.5-5.1); Sodium Level 139 mmol/L (136-145)
--- NOTE | 2020-07-28 23:07 | EKG12_ITS ---
Test Reason : [facility] Blood Pressure : / mmHG Vent. Rate : 066 BPM Atrial Rate : 066 BPM P-R Int : 178 ms QRS Dur : 104 ms QT Int : 416 ms P-R-T Axes : 023 046 046 degrees QTc Int : 436 ms Normal sinus rhythm Normal ECG Confirmed by CRISTINO ARCE, VINEET ([id number]), assistant film editor MILY SHAH ([id number]) on 07/31/2020 11:32:53 A M Referred By: URSULA Confirmed By:RUBÉN GREGG MD
[2020-07-28 23:13] LABS: Internal QC Validated? YES +Cl - CLEAR BKGD; Pregnancy, Serum, hCG Quali. NEGATIVE Negative
[2020-07-28 23:13] LABS: Amphetamine Urine VISTA NEGATIVE (<1000 ng/mL); Barbiturate Urine VISTA NEGATIVE (< 200 ng/mL); Benzodiazepine Urine VISTA POSITIVE (< 200 ng/mL); Cocaine Urine VISTA NEGATIVE (< 300 ng/mL); Ecstacy Urine VISTA NEGATIVE (< 500 ng/mL); Methadone Urine VISTA NEGATIVE (< 300 ng/mL); PCP Urine VISTA NEGATIVE (< 25 ng/mL); THC Urine VISTA NEGATIVE (< 50 ng/mL); Vista UDS pH Range 5
[2020-07-28 23:14] LABS: Alcohol, Blood (Medical)-Serum < 3.0 mg/dL
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
[2020-07-29] LABS: AST(SGOT) 24 U/L (15-37); Alanine Aminotransfer ALT/SGPT 58 U/L (13-56); Albumin, Serum 3.8 g/dL (3.2-5.0); Alkaline Phosphatase 78 U/L (45-117); Globulin 4.2 g/dL (2.2-4.2)
[2020-07-29 02:05] VITALS: BP 125/78; PULSE 85; RESP 16; TEMP 36.7; O2SAT 98
[2020-07-29 04:06] VITALS: RESP 16
[2020-07-29 05:54] VITALS: BP 128/81; PULSE 78; RESP 17; TEMP 36.3; O2SAT 100
--- NOTE | 2020-07-29 05:59 | ED.RN ---
Called to give report but no answer after 7 rings
[2020-07-29 06:25] VITALS: BP 128/81; PULSE 78; RESP 17; TEMP 36.3; O2SAT 100
--- NOTE | 2020-07-29 06:28 | ED.RN ---
Security given description of patients car and approximate location of parking and aware the patient is being transferred out and we want to make sure not towed, Oliver is aware and will pass along to captain.
== END 2020-07-29 06:51 ==
LOC: ED 23:18
PROVIDERS: Emergency Provider Emergency Medicine
DX: F32.9 Major depressive disorder, single episode, unspecified (principal); R45.851 Suicidal ideations; Z59.0 Homelessness; F41.9 Anxiety disorder, unspecified; E66.9 Obesity, unspecified; Z79.899 Other long term (current) drug therapy
CPT/HCPCS: 80048; 80076; 80307; 82077; 84703; 85025; 87426; 93005; 99285

== ENCOUNTER 2020-10-19 21:12 | Emergency (ER) | payer MEDICARE, MEDICAID, SELFPAY ==
[2020-10-19 21:12] VITALS: BP 148/87; PULSE 84; RESP 20; TEMP 37.1; O2SAT 98; BMI 52.7
--- NOTE | 2020-10-19 23:08 | ED.RN ---
PT UPSET MORE CRITICAL PATIENT WERE TAKEN BACK BEFORE HER
== END 2020-10-19 23:07 | disposition left against medical advice (07) ==
LOC: ED 23:37
DX: M25.561 Pain in right knee (principal)

== ENCOUNTER 2021-01-16 21:45 | Emergency (ER) | payer MEDICARE, MEDICAID, SELFPAY ==
[2021-01-16 21:46] VITALS: BP 174/91; PULSE 77; RESP 14; TEMP 36.7; O2SAT 97; BMI 51.6
[2021-01-16] MEDS: LORazepam 1 MG Tablet PO (22:11)
--- NOTE | 2021-01-16 23:25 | EDS_ITS ---
HPI HPI - Psych History of Present Illness Chief Complaint: Anxiety Detail of Chief Complaint: Anxiety reaction Informant: patient Onset/Context/Timing Onset: Month(s) Context: Sudden Onset Conflict: - (There is no history of conflict) Timing: Intermittent Current Severity: Mild Maximum Severity: Severe Worsened by: - (Patient does not know what precipitates her makes her symptoms worse) Relieved by: Nothing Associated Symptoms Associated Symptoms - Psych: Positive for Depressed; Negative for Change in Eating, Change in sleeping, Decreased Interest, Guilt, Decreased Concentration, Hopelessness, Suicidal Thoughts, Easily distracted, Grandiosity, Flight of Ideas, Increased activity, Pressured Speech, Agitated, Angry, Hostile, Threatening, Confusion, Paranoia, Visual Hallucinations and Auditory Hallucinations Specific plan (suicidal thought): Not applicable Narrative Narrative: Patient with history of depression and anxiety. Has had increased anxiety since she had craniotomy to treat seizure disorder. She is presently on Xanax. She denies suicidal thoughts or suicidal ideation. She denies headache presently. She denies visual, ocular auditory symptoms. She denies cardiac respiratory symptoms. She denies nausea or vomiting. She states she does have periorbital tingling and tingling in her fingers. She feels like she is outside of her body. When symptoms get worse she begins to feel nauseous. Prior similar symptoms: Yes Recent Illness/Hospitalization: Yes [facility] Medical History (Updated 01/16/21 @ 23:[address] Sabas Patel MD) Anxiety and depression Home Medications levetiracetam 1,000 mg PO BREAKFAST 05/24/15 [History Last Taken Unknown] levetiracetam 500 mg PO QHS 11/12/15 [History Last Taken Unknown] biotin 1 tab PO DAILY 09/06/17 [History Last Taken Unknown] ferrous sulfate 1 tab PO TID 09/06/17 [History Last Taken Unknown] cholecalciferol (vitamin D3) 2,000 unit PO DAILY 09/05/18 [History Last Taken Unknown] alprazolam [Xanax] 2 mg PO BID 07/28/20 [History Last Taken Unknown] metformin mg 01/16/21 [History Last Taken Unknown] norgestimate-ethinyl estradiol [Bedford-Linyah] tab 01/16/21 [History Last Taken Unknown] Allergy/AdvReac Type Severity Reaction Status Date / Time phenobarbital Allergy Unknown Verified 07/28/20 22:11 Family History Mother Heart disease Surgical History H/O dilation and curettage History of hysteroscopy partial labotomy Social History Smoking Status: Never smoker alcohol intake: current details: social substance use type: does not use caffeine: Yes what type of physical activity do you participate in: none seatbelt use: always do you feel safe at home: No additional social history: single-unemployed ROS ROS ED Constitutional Constitutional ED: Denies chills, fever(s), subjective, sweats or weight loss Eyes Eyes: Denies blurry vision, change in vision or diplopia ENT ENT ED: Denies ear pain, rhinorrhea or sore throat Cardiovascular Cardiovascular: Denies chest pain or palpitations Respiratory/Chest Respiratory/Chest: Denies cough, dyspnea or dyspnea on exertion Gastrointestinal Gastrointestinal: Reports nausea; Denies abdominal pain or vomiting Neurologic Neurologic: Denies headache(s), paresthesias or weakness Psychiatric Psychiatric: Reports anxiety and depression; Denies suicidal ideation or suicidal thoughts EXAM Physical Exam Const Vital Signs: 01/16/21 21:46 Temperature 98.1 F Temperature Source Temporal Pulse Rate 77 Respiratory Rate 14 Blood Pressure 174/91 H Blood Pressure Mean 118 Pulse Ox 97 Oxygen Delivery Method Room Air Positive well nourished, well developed and obese General Appearance ED: well developed and NAD Nutritional Appearance: obese HEENT Reports TM's clear and moist mucous membranes HEENT Narrative: Well-healed forehead scar noted. Positive's [place] sign normocephalic and atraumatic; Negative for tenderness Tympanic Membrane ED: Yes TM's clear Eyes PERRL and EOMs intact bilaterally General Eye ED: Negative for pale conjunctiva or scleral icterus Neck no lymphadenopathy, supple and no JVD General: Negative for tenderness Resp normal respiratory effort Cardio S1 normal heart sound, S2 normal heart sound and no murmurs Rate: regular rate Rhythm: regular rhythm Back/Spine no CVA tenderness Extremity normal to inspection General Extremety ED: Negative for edema or tenderness General Extremity: Negative for edema Neuro oriented x3 and CN's II-XII intact bilaterally Neuro Narrative: DTRs are 3+ with 3-4 beats of clonus at the ankles. Sensorium / Orientation: alert Psych cooperative, affect normal, denies hallucinations, denies homicidal ideation and denies suicidal ideation Appearance: appropriate and well kempt Attitude: calm Activity / Motor Behavior: appropriate eye contact and psychomotor slowing Speech: normal speech Mood & Affect: flat affect Thought Process: normal thought process Attention / Concentration: attention grossly intact Memory / Cognition: memory grossly intact MDM MDM MDM Narrative Medical decision making narrative: Recurrent anxiety reaction of unknown cause. Patient treated with Ativan. She was reassessed at 2320. She feels markedly better. She would like to go home. Discharge Plan Triage Chief Complaint: Anxiety ED Provider: Sabas Patel Dx/Rx/DC Orders Clinical Impression: Anxiety reaction, Acute hyperventilation syndrome Instructions: ED Anxiety Reaction, ED Hyperventilation Syndrome Prescriptions: No Action levetiracetam 500 MG tablet 1,000 mg PO BREAKFAST RF: 0 levetiracetam 500 MG tablet 500 mg PO QHS RF: 0 ferrous sulfate 325 MG tablet 1 tab PO TID RF: 0 biotin 5,000 MCG tablet,disintegrating 1 tab PO DAILY RF: 0 cholecalciferol (vitamin D3) 1,000 UNIT tablet 2,000 unit PO DAILY RF: 0 alprazolam [Xanax] 2 mg Tablet 2 mg PO BID RF: 0 metformin 500 mg tablet RF: 0 norgestimate-ethinyl estradiol [Bedford-Linyah] 0.25-35 mg-mcg tablet RF: 0 Primary Care Provider: Care Physician,No Primary Referrals: Care Physician,No Primary [Primary Care Provider] - Doctor,Your [STAFF PHYSICIAN] - Disposition Disposition: Home, Self Care
[2021-01-16 23:45] VITALS: BP 169/78; PULSE 79; RESP 18; O2SAT 97
== END 2021-01-16 23:46 | disposition home or self-care (01) ==
PROVIDERS: Emergency Provider Emergency Medicine
DX: F41.1 Generalized anxiety disorder (principal); F45.8 Other somatoform disorders; F32.A Depression, unspecified; E66.9 Obesity, unspecified; Z79.899 Other long term (current) drug therapy
CPT/HCPCS: 99285

== ENCOUNTER 2021-02-10 15:31 | Emergency (ER) | payer MEDICARE, MEDICAID, SELFPAY ==
[2021-02-10] VITALS (7 sets, daily range): BP systolic 139–151; BP diastolic 97–100; PULSE 82–107; RESP 15–18; TEMP 36.8; O2SAT 93–97; BMI 51.5
--- NOTE | 2021-02-10 17:00 | EDS_ITS ---
HPI History of Present Illness Chief Complaint: Suicidal Narrative Narrative: 35-year-old female with history of anxiety, depression, bipolar disorder and previous suicide attempts presenting for increasing suicidal ideation. She states that over the last couple of weeks she tried to overdose on Naprosyn and aspirin but she states she threw this up. She has been able to take her own medications that she takes on a regular basis. Patient states she discussed this with her counselor and was referred to crisis for increasing suicidal gestures. She states that she just wants to take medication and go to sleep and not wake up. She admits to trying this before. She states that her last ingestion was last evening and she states she does not hold this down. She states it was Naprosyn. [facility] Medical History Anxiety and depression Home Medications levetiracetam 1,000 mg PO BREAKFAST 05/24/15 [History Last Taken Unknown] levetiracetam 500 mg PO QHS 11/12/15 [History Last Taken Unknown] biotin 1 tab PO DAILY 09/06/17 [History Last Taken Unknown] ferrous sulfate 1 tab PO DAILY 09/06/17 [History Last Taken Unknown] cholecalciferol (vitamin D3) 2,000 unit PO DAILY 09/05/18 [History Last Taken Unknown] alprazolam [Xanax] 2 mg PO BID 07/28/20 [History Last Taken Unknown] metformin 500 mg PO BID 01/16/21 [History Last Taken Unknown] norgestimate-ethinyl estradiol [[place]] 1 tab PO DAILY 01/16/21 [History Last Taken Unknown] [id number] [] 1 tab PO DAILY 02/10/21 [History Last Taken Unknown] Allergy/AdvReac Type Severity Reaction Status Date / Time phenobarbital Allergy Unknown Verified 07/28/20 22:11 Family History Mother Heart disease Surgical History H/O dilation and curettage History of hysteroscopy partial labotomy Social History Smoking Status: Never smoker alcohol intake: current details: social substance use type: does not use caffeine: Yes what type of physical activity do you participate in: none seatbelt use: always do you feel safe at home: No additional social history: single-unemployed ROS ROS ED Constitutional Constitutional ED: Denies chills, fever(s) or sweats Eyes Eyes: Denies blurry vision or change in vision ENT ENT ED: Denies ear pain or sore throat Cardiovascular Cardiovascular: Denies chest pain, palpitations or racing heartbeat Respiratory/Chest Respiratory/Chest: Denies cough, dyspnea or sputum Gastrointestinal Gastrointestinal: Denies abdominal pain, constipation, diarrhea, nausea or vomiting Genitourinary Genitourinary ED: Denies dysuria, hematuria or urinary frequency Musculoskeletal Musculoskeletal: Denies arthralgias, myalgias or neck pain Integumentary Denies abscess, Abrasions or rash Neurologic Neurologic: Denies headache(s), paresthesias or weakness Psychiatric Psychiatric: Reports suicidal ideation and suicidal thoughts; Denies anxiety or depression Endocrine Endocrinology: Denies polydipsia or polyuria EXAM Physical Exam Const Vital Signs: 02/10/21 15:32 02/10/21 17:21 02/10/21 18:03 Temperature 98.3 F Temperature Source Temporal Pulse Rate 107 H Respiratory Rate 17 16 18 Blood Pressure 139/100 H Blood Pressure Mean 113 Pulse Ox 93 Oxygen Delivery Method Room Air 02/10/21 19:00 02/10/21 20:33 02/10/21 20:59 Temperature Temperature Source Pulse Rate 82 82 Respiratory Rate 18 16 16 Blood Pressure 151/97 H 151/97 H Blood Pressure Mean 115 115 Pulse Ox 97 97 Oxygen Delivery Method Room Air 02/10/21 21:06 Temperature Temperature Source Pulse Rate Respiratory Rate 15 Blood Pressure Blood Pressure Mean Pulse Ox Oxygen Delivery Method Room Air Positive unkempt General Appearance ED: unkempt; Negative for pallor HEENT Reports normocephalic, head/scalp atraumatic and moist mucous membranes Eyes PERRL and EOMs intact bilaterally Neck no lymphadenopathy and supple Chest Wall inspection of chest normal and palpation of chest normal Resp normal respiratory effort and clear to auscultation bilaterally Auscultation: Negative for rales, rhonchi or wheezes Cardio regular rate and regular rhythm GI normal to inspection, nondistended, normoactive bowel sounds and non-distended Auscultation: normoactive bowel sounds Palpation: soft Narrative: Deferred Extremity normal to inspection General Extremety ED: Negative for edema or tenderness General Extremity: Negative for edema Neuro oriented x3 and CN's II-XII intact bilaterally Sensorium / Orientation: alert Motor Exam: strength 5/5 throughout Psych mental status grossly normal Psych Narrative: Admits to suicidal thoughts and plans to ingest what ever [id number]-[id number] medication she can find. Appearance: unkempt Attitude: calm and No agitated Thought Content: No hallucination(s) Memory / Cognition: cognition grossly intact Skin no rashes or lesions noted and no wounds General Skin Exam: Negative for jaundice or pallor MDM MDM MDM Narrative Medical decision making narrative: Patient presenting with suicidal thoughts and a plan to ingest pills. He expresses that she wishes to . I did obtain medical clearance lab work and her CBC and BMP are normal. hCG is negative. Salicylates and acetaminophen are negative. Urine drug screen positive for benzodiazepine and she is prescribed alprazolam twice daily. At the request of the psychiatric facility I did obtain an EKG which on my interpretation is normal sinus rhythm with a ventricular rate of 89 beats minute without ischemic change. Patient's Covid testing is negative. Patient currently is medically cleared for psychiatric evaluation at this time. Patient accepted to [facility]. Transported in stable condition Impression: 1. Suicidal ideation with plan Lab Data Attestation: I reviewed the patient's lab results. Labs: Laboratory Results - last 24 hr 02/10/21 02/10/21 02/10/21 16:49 17:17 17:17 WBC 8.0 RBC 4.99 Hgb 15.3 H Hct 44.4 MCV 89.0 MCH 30.7 MCHC 34.5 RDW Std Deviation 37.0 RDW Coeff of Thomas 11.5 L Plt Count 300 MPV 9.3 Immature Gran % (Auto) 0.300 Neut % (Auto) 70.1 H Lymph % (Auto) 22.6 [place] % (Auto) 5.8 Eos % (Auto) 0.6 Baso % (Auto) 0.6 Absolute Neuts (auto) 5.6 Absolute Lymphs (auto) 1.80 Nucleated RBC % 0 Sodium 141 Potassium 4.1 Chloride 106 Carbon Dioxide 27.0 Anion Gap 8 BUN 16 Creatinine 0.84 Estim Creat Clear Calc 79.18 Est GFR (MDRD) Af Amer 98 Est GFR (MDRD) Non-Af 81 BUN/Creatinine Ratio 19.1 Glucose 112 H Calcium 9.3 Serum , Qual Salicylates Urine Opiates Screen NEGATIVE Urine Methadone Screen NEGATIVE Acetaminophen Ur Barbiturates Screen NEGATIVE Ur Phencyclidine Scrn NEGATIVE Ur Amphetamines Screen NEGATIVE U Methamphetamin-MDMA NEGATIVE U Benzodiazepines Scrn POSITIVE H Urine Cocaine Screen NEGATIVE U Cannabinoids Screen NEGATIVE Ur Drug Screen Comment Ethyl Alcohol 02/10/21 02/10/21 02/10/21 17:17 17:17 17:17 WBC RBC Hgb Hct MCV MCH MCHC RDW Std Deviation RDW Coeff of Thomas Plt Count MPV Immature Gran % (Auto) Neut % (Auto) Lymph % (Auto) [place] % (Auto) Eos % (Auto) Baso % (Auto) Absolute Neuts (auto) Absolute Lymphs (auto) Nucleated RBC % Sodium Potassium Chloride Carbon Dioxide Anion Gap BUN Creatinine Estim Creat Clear Calc Est GFR (MDRD) Af Amer Est GFR (MDRD) Non-Af BUN/Creatinine Ratio Glucose Calcium Serum , Qual NEGATIVE Salicylates < 1.7 L Urine Opiates Screen Urine Methadone Screen Acetaminophen < 2.0 L Ur Barbiturates Screen Ur Phencyclidine Scrn Ur Amphetamines Screen U Methamphetamin-MDMA U Benzodiazepines Scrn Urine Cocaine Screen U Cannabinoids Screen Ur Drug Screen Comment Ethyl Alcohol 5.0 Discharge Plan Triage Chief Complaint: Suicidal ED Provider: Uday Almaraz Dx/Rx/DC Orders Prescriptions: No Action levetiracetam 500 MG tablet 1,000 mg PO BREAKFAST RF: 0 levetiracetam 500 MG tablet 500 mg PO QHS RF: 0 ferrous sulfate 325 MG tablet 1 tab PO DAILY RF: 0 biotin 5,000 MCG tablet,disintegrating 1 tab PO DAILY RF: 0 cholecalciferol (vitamin D3) 1,000 UNIT tablet 2,000 unit PO DAILY RF: 0 alprazolam [Xanax] 2 mg Tablet 2 mg PO BID RF: 0 metformin 500 mg tablet 500 mg PO BID RF: 0 norgestimate-ethinyl estradiol [[place]] 0.25-35 mg-mcg tablet 1 tab PO DAILY RF: 0 1 mg Tablet 1 tab PO DAILY RF: 0 Primary Care Provider: Care Physician,No Primary
[2021-02-10 17:08] LABS: Amphetamine Urine VISTA NEGATIVE (<1000 ng/mL); Barbiturate Urine VISTA NEGATIVE (< 200 ng/mL); Benzodiazepine Urine VISTA POSITIVE (< 200 ng/mL); Cocaine Urine VISTA NEGATIVE (< 300 ng/mL); Ecstacy Urine VISTA NEGATIVE (< 500 ng/mL); Methadone Urine VISTA NEGATIVE (< 300 ng/mL); PCP Urine VISTA NEGATIVE (< 25 ng/mL); THC Urine VISTA NEGATIVE (< 50 ng/mL); Vista UDS pH Range 6
[2021-02-10 17:24] LABS: Absolute Neutrophil Count 5.6 X10^3/uL (2.0-7.7); Basophil# 0.05 X10^3/uL; Basophil% 0.6 % (0-1); Eosinophil# 0.05 X10^3/uL; Eosinophils% 0.6 % (0-5); Hematocrit 44.4 % (37-47); Hemoglobin 15.3 g/dL (12.0-15.0); Lymphocyte % 22.6 % (19-41); Mean Corp Hgb Conc 34.5 g/dL (32-36); Mean Corpuscular Hgb 30.7 pg (27.0-32.0); Mean Platelet Vol. 9.3 fl (6.2-12.0); Monocyte# 0.46 X10^3/uL; Monocyte% 5.8 % (0-10); NRBC Flagged by Analyzer 0 % (0-5); Neutrophil # 5.58 X10^3/uL (2.7-7.7); Neutrophil % 70.1 % (47-70); Platelet Count 300 K/mm3 (150-450); RBC Distribution Width CV 11.5 % (11.6-14.6); Red Blood Count 4.99 M/mm3 (4.2-5.4)
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
[2021-02-10 17:35] LABS: Internal QC Validated? YES +Cl - CLEAR BKGD; Pregnancy, Serum, hCG Quali. NEGATIVE Negative
[2021-02-10 17:39] LABS: Anion Gap 8 (5-15); BUN 16 mg/dL (7-18); BUN/Creat Ratio 19.1 RATIO (10-20); Calcium,Total 9.3 mg/dL (8.5-10.1); Chloride 106 mmol/L (98-107); Creatinine, Serum 0.84 mg/dL (0.55-1.02); EST Glomerular Filtration Rate 81 mL/min (>60); Est Glom Filt Rate - Afr Amer 98 mL/min (>60); Estimated Creatinine Clearance 79.18 ml/min; Glucose 112 mg/dL (74-106); Potassium 4.1 mmol/L (3.5-5.1); Sodium Level 141 mmol/L (136-145)
[2021-02-10 18:33] LABS: Acetaminophen (Tylenol) Level < 2.0 ug/mL (10.0-30.0); Salicylate < 1.7 mg/dL (2.8-20.0)
--- NOTE | 2021-02-10 18:38 | EKG12_ITS ---
Test Reason : MHC Blood Pressure : / mmHG Vent. Rate : 089 BPM Atrial Rate : 089 BPM P-R Int : 166 ms QRS Dur : 090 ms QT Int : 366 ms P-R-T Axes : 028 022 033 degrees QTc Int : 445 ms Normal sinus rhythm Inferior infarct , age undetermined Abnormal ECG Confirmed by CRISTINO ARCE, VINEET ([id number]), image editor MILY SHAH ([id number]) on 02/15/2021 9:36:14 AM Referred By: ELIZABETH Confirmed By:RUBÉN GREGG MD
--- NOTE | 2021-02-10 19:08 | CM.ED ---
Referral faxed and called to [address]. Pending review and acceptance at this time.
--- NOTE | 2021-02-10 19:51 | CM.ED ---
Addendum entered by Cami Arroyo 02/10/21 20:18: Call to [facility] for assistance with transportation. ETA 90 minutes. Call to [facility] to cancel transport. Original Note: Patient accepted to [facility] by Dr. Majano. Nurse to call report to [phone]. Patient updated. Call to [facility], ETA 4-5 hours (12-1am) Staff updated. 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
== END 2021-02-10 22:29 | disposition home or self-care (01) ==
PROVIDERS: Emergency Provider Student in an Organized Health Care Education/Training Program
DX: R45.851 Suicidal ideations (principal); F31.9 Bipolar disorder, unspecified; F41.9 Anxiety disorder, unspecified; Z79.899 Other long term (current) drug therapy
CPT/HCPCS: 80048; 80307; 80329; 82077; 84703; 85025; 87426; 93005; 99285; G0480

== ENCOUNTER 2021-02-25 10:31 | Emergency (ER) | payer MEDICARE, MEDICAID, SELFPAY ==
[2021-02-25] VITALS (10 sets, daily range): BP systolic 125–160; BP diastolic 89–113; PULSE 20–99; RESP 16–20; TEMP 36.9; O2SAT 96–98; BMI 52.3
--- NOTE | 2021-02-25 11:32 | EKG12_ITS ---
Test Reason : ANX Blood Pressure : / mmHG Vent. Rate : 079 BPM Atrial Rate : 079 BPM P-R Int : 176 ms QRS Dur : 104 ms QT Int : 392 ms P-R-T Axes : 024 035 034 degrees QTc Int : 449 ms Normal sinus rhythm Normal ECG Confirmed by MICHELLE ARCE, CAROLE ([id number]), purchase request editor MILY SHAH ([id number]) on 02/26/2021 10:48:21 AM Referred By: JOO Confirmed By:CAROLE MARTINEZ MD
--- NOTE | 2021-02-25 11:32 | RAD_ITS ---
STUDY: X-RAY CHEST REASON FOR EXAM: Female, 35 years old. Dyspnea TECHNIQUE: Single AP portable view of the chest. COMPARISON: Comparison is made with prior study 09/05/2089. FINDINGS: The lungs are clear and expanded. Scattered calcified granulomas. There is no demonstrated pleural abnormality. Normal size heart. Normal mediastinum and justo. Normal visualized pulmonary arteries. Normal visualized aortic arch and descending thoracic aorta. Normal visualized thoracic spine. Normal visualized ribs, clavicles, and shoulders. There is no demonstrated abnormality of the visualized soft tissue structures of the upper abdomen. RAD/Chest 1 View (Portable) IMPRESSION: Normal x-ray examination of the chest. Electronically Signed: Erich Wise MD at 13:31 EST , Service support ,
[2021-02-25 12:03] LABS: Absolute Lymphocyte Count 0.96 X10^3/uL (0.83-4.51); Absolute Neutrophil Count 6.6 X10^3/uL (2.0-7.7); Basophil# 0.03 X10^3/uL; Basophil% 0.4 % (0-1); Hematocrit 37.9 % (37-47); Hemoglobin 13.5 g/dL (12.0-15.0); Lymphocyte # 0.96 X10^3/ul (0.83-4.51); Lymphocyte % 12.1 % (19-41); Mean Corp Hgb Conc 35.6 g/dL (32-36); Mean Corpuscular Hgb 30.4 pg (27.0-32.0); Mean Corpuscular Volume 85.4 fL (81-99); Mean Platelet Vol. 9.5 fl (6.2-12.0); Monocyte# 0.28 X10^3/uL; Monocyte% 3.5 % (0-10); NRBC Flagged by Analyzer 0 % (0-5); Neutrophil % 83.5 % (47-70); Platelet Count 275 K/mm3 (150-450); RBC Distribution Width CV 11.3 % (11.6-14.6); RBC Distribution Width SD 35.2 fl (35.1-43.9); Red Blood Count 4.44 M/mm3 (4.2-5.4); White Blood Count 7.9 K/mm3 (4.4-11.0)
[2021-02-25 12:15] LABS: Anion Gap 9 (5-15); BUN 10 mg/dL (7-18); BUN/Creat Ratio 13.6 RATIO (10-20); Calcium,Total 9.3 mg/dL (8.5-10.1); Chloride 110 mmol/L (98-107); Creatinine, Serum 0.73 mg/dL (0.55-1.02); EST Glomerular Filtration Rate 95 mL/min (>60); Est Glom Filt Rate - Afr Amer 114 mL/min (>60); Estimated Creatinine Clearance 91.11 ml/min; Glucose 118 mg/dL (74-106); Potassium 3.4 mmol/L (3.5-5.1); Sodium Level 139 mmol/L (136-145)
[2021-02-25 12:32] LABS: Amphetamine Urine VISTA NEGATIVE (<1000 ng/mL); Barbiturate Urine VISTA NEGATIVE (< 200 ng/mL); Benzodiazepine Urine VISTA POSITIVE (< 200 ng/mL); Cocaine Urine VISTA NEGATIVE (< 300 ng/mL); Ecstacy Urine VISTA NEGATIVE (< 500 ng/mL); Methadone Urine VISTA NEGATIVE (< 300 ng/mL); PCP Urine VISTA NEGATIVE (< 25 ng/mL); THC Urine VISTA NEGATIVE (< 50 ng/mL); Vista UDS pH Range 5
[2021-02-25 12:35] LABS: Internal QC Validated? YES +Cl - CLEAR BKGD; Pregnancy, Serum, hCG Quali. NEGATIVE Negative
--- NOTE | 2021-02-25 13:11 | EDS_ITS ---
HPI HPI - Psych History of Present Illness Chief Complaint: Anxiety Narrative Narrative: Patient with history of bipolar disorder, PTSD, anxiety presenting with episodes of panic which she describes as shortness of breath in which she hyperventilates and feels lightheaded. She denies falling or hitting her head. Patient states this has been ongoing for months. She was recently admitted to the psychiatric facility for suicidal ideation. He states that she is not suicidal or homicidal currently, but she states that she does sometimes have thoughts of suicidal ideation. She states that she saw her psychiatric doctor via a televisit and was told to come to the ER, and that she may need to be hospitalized due to her PTSD. [facility] Medical History Anxiety and depression Home Medications levetiracetam 1,000 mg PO BREAKFAST 05/24/15 [History Last Taken Unknown] levetiracetam 500 mg PO QHS 11/12/15 [History Last Taken Unknown] biotin 1 tab PO DAILY 09/06/17 [History Last Taken Unknown] ferrous sulfate 1 tab PO DAILY 09/06/17 [History Last Taken Unknown] cholecalciferol (vitamin D3) 2,000 unit PO DAILY 09/05/18 [History Last Taken Unknown] alprazolam [Xanax] 2 mg PO BID 07/28/20 [History Last Taken Unknown] metformin 500 mg PO BID 01/16/21 [History Last Taken Unknown] norgestimate-ethinyl estradiol [[place]] 1 tab PO DAILY 01/16/21 [History Last Taken Unknown] [id number] [] 1 tab PO DAILY 02/10/21 [History Last Taken Unknown] doxepin 50 mg PO QHS 02/25/21 [History Last Taken Unknown] Allergy/AdvReac Type Severity Reaction Status Date / Time phenobarbital Allergy Unknown Verified 02/25/21 10:40 Family History Mother Heart disease Surgical History H/O dilation and curettage History of hysteroscopy partial labotomy Social History Smoking Status: Never smoker alcohol intake: current details: social substance use type: does not use caffeine: Yes what type of physical activity do you participate in: none seatbelt use: always do you feel safe at home: No additional social history: single-unemployed ROS ROS ED Constitutional Constitutional ED: Denies chills or fever(s) Eyes Eyes: Denies blurry vision or diplopia ENT ENT ED: Denies rhinorrhea or sore throat Cardiovascular Cardiovascular: Reports palpitations and racing heartbeat; Denies chest pain Respiratory/Chest Respiratory/Chest: Reports dyspnea Gastrointestinal Gastrointestinal: Denies abdominal pain, nausea or vomiting Genitourinary Genitourinary ED: Denies dysuria or hematuria Musculoskeletal Musculoskeletal: Denies arthralgias or myalgias Integumentary Denies rash Neurologic Neurologic: Denies headache(s) or paresthesias Psychiatric Psychiatric: Reports anxiety and suicidal thoughts EXAM Physical Exam Const Vital Signs: 02/25/21 10:34 02/25/21 13:14 02/25/21 14:41 Temperature 98.5 F Temperature Source Oral Pulse Rate 99 77 Respiratory Rate 20 H 16 16 Blood Pressure 125/113 H 141/92 H Blood Pressure Mean 117 108 Pulse Ox 96 97 Oxygen Delivery Method Room Air Room Air 02/25/21 15:41 02/25/21 16:31 02/25/21 17:01 Temperature Temperature Source Pulse Rate 20 L Respiratory Rate 16 16 Blood Pressure Blood Pressure Mean Pulse Ox Oxygen Delivery Method 02/25/21 18:10 02/25/21 19:06 Temperature Temperature Source Pulse Rate 89 Respiratory Rate 16 Blood Pressure 160/89 H Blood Pressure Mean 112 Pulse Ox 98 Oxygen Delivery Method Room Air Positive obese General Appearance ED: NAD Nutritional Appearance: obese HEENT Reports moist mucous membranes normocephalic and atraumatic Eyes PERRL and EOMs intact bilaterally Resp normal respiratory effort and clear to auscultation bilaterally Cardio Rate: regular rate Rhythm: regular rhythm GI non-tender and non-distended Palpation: soft Neuro oriented x3 and CN's II-XII intact bilaterally Sensorium / Orientation: alert Psych Psych Narrative: Anxious. Admits to having suicidal thoughts periodically. Rapidly speaking. Skin Lesions: no lesions Rashes: no rashes MDM MDM MDM Narrative Medical decision making narrative: Patient was discussed with social work to clarify whether she was sent here for admission. After the social media specialist did speak with her she did state that she was having a lot of anxiety and the patient herself feels like she needs to be admitted. drug worker did speak with her psychiatrist and it was stated to her that if she is here in the ER that she likely needs admission because it is hard for her to come to the ER with her disorder. She is admitting that she feels like she will be suicidal if she goes home. She feels safe in the emergency room. Patient's blood work is unremarkable. EtOH negative. Urine drug screen positive for benzodiazepines however she is prescribed these. Because of her shortness of breath I did obtain an EKG which on my interpretation shows a normal sinus rhythm with a ventricular rate of 79 bpm without signs of ischemic change or dysrhythmia. Chest x-ray my interpretation shows no acute cardiopulmonary process. The radiologist does agree. Covid testing is negative. Social work will try to get the patient admitted. Patient is medically cleared at this time. Patient was accepted to [facility]. She will be transported when a bed becomes available. Impression: 1. Suicidal thoughts 2. Anxiety Lab Data Labs: Laboratory Results - last 24 hr 02/25/21 02/25/21 02/25/21 11:53 11:53 11:53 WBC 7.9 RBC 4.44 Hgb 13.5 Hct 37.9 MCV 85.4 MCH 30.4 MCHC 35.6 RDW Std Deviation 35.2 RDW Coeff of Thomas 11.3 L Plt Count 275 MPV 9.5 Immature Gran % (Auto) 0.500 Neut % (Auto) 83.5 H Lymph % (Auto) 12.1 L [place] % (Auto) 3.5 Eos % (Auto) 0.0 Baso % (Auto) 0.4 Absolute Neuts (auto) 6.6 Absolute Lymphs (auto) 0.96 Nucleated RBC % 0 Sodium 139 Potassium 3.4 L Chloride 110 H Carbon Dioxide 20.0 L Anion Gap 9 BUN 10 Creatinine 0.73 Estim Creat Clear Calc 91.11 Est GFR (MDRD) Af Amer 114 Est GFR (MDRD) Non-Af 95 BUN/Creatinine Ratio 13.6 Glucose 118 H Calcium 9.3 Serum , Qual Urine Opiates Screen Urine Methadone Screen Ur Barbiturates Screen Ur Phencyclidine Scrn Ur Amphetamines Screen U Methamphetamin-MDMA U Benzodiazepines Scrn Urine Cocaine Screen U Cannabinoids Screen Ur Drug Screen Comment Ethyl Alcohol 8.0 02/25/21 02/25/21 11:53 12:00 WBC RBC Hgb Hct MCV MCH MCHC RDW Std Deviation RDW Coeff of Thomas Plt Count MPV Immature Gran % (Auto) Neut % (Auto) Lymph % (Auto) [place] % (Auto) Eos % (Auto) Baso % (Auto) Absolute Neuts (auto) Absolute Lymphs (auto) Nucleated RBC % Sodium Potassium Chloride Carbon Dioxide Anion Gap BUN Creatinine Estim Creat Clear Calc Est GFR (MDRD) Af Amer Est GFR (MDRD) Non-Af BUN/Creatinine Ratio Glucose Calcium Serum , Qual NEGATIVE Urine Opiates Screen NEGATIVE Urine Methadone Screen NEGATIVE Ur Barbiturates Screen NEGATIVE Ur Phencyclidine Scrn NEGATIVE Ur Amphetamines Screen NEGATIVE U Methamphetamin-MDMA NEGATIVE U Benzodiazepines Scrn POSITIVE H Urine Cocaine Screen NEGATIVE U Cannabinoids Screen NEGATIVE Ur Drug Screen Comment Ethyl Alcohol Radiography Diagnostic Testing: Clinical Impression(s) from Imaging Studies Chest X-Ray 02/25/21 11:32 IMPRESSION: Normal x-ray examination of the chest. Electronically Signed: Erich Wise MD at 13:31 EST , Service support , Discharge Plan Triage Chief Complaint: Anxiety ED Provider: Uday Almaraz Dx/Rx/DC Orders Prescriptions: No Action levetiracetam 500 MG tablet 1,000 mg PO BREAKFAST RF: 0 levetiracetam 500 MG tablet 500 mg PO QHS RF: 0 ferrous sulfate 325 MG tablet 1 tab PO DAILY RF: 0 biotin 5,000 MCG tablet,disintegrating 1 tab PO DAILY RF: 0 cholecalciferol (vitamin D3) 1,000 UNIT tablet 2,000 unit PO DAILY RF: 0 alprazolam [Xanax] 2 mg Tablet 2 mg PO BID RF: 0 metformin 500 mg tablet 500 mg PO BID RF: 0 norgestimate-ethinyl estradiol [[place]-Linyah] 0.25-35 mg-mcg tablet 1 tab PO DAILY RF: 0 1 mg Tablet 1 tab PO DAILY RF: 0 doxepin 50 mg capsule 50 mg PO QHS RF: 0 Primary Care Provider: Abdirashid Vazquez
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
[2021-02-25] MEDS: LORazepam 1 MG Tablet PO (16:33)
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
[2021-02-25] MEDS: levETIRAcetam 500 MG Tablet PO (20:23)
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
== END 2021-02-25 21:25 ==
LOC: ED 11:21
PROVIDERS: Emergency Provider Student in an Organized Health Care Education/Training Program; PCP Student in an Organized Health Care Education/Training Program
DX: R45.851 Suicidal ideations (principal); F41.9 Anxiety disorder, unspecified; F31.9 Bipolar disorder, unspecified; F43.10 Post-traumatic stress disorder, unspecified; E66.9 Obesity, unspecified; Z56.0 Unemployment, unspecified; Z79.899 Other long term (current) drug therapy
CPT/HCPCS: 71045; 80048; 80307; 82077; 84703; 85025; 87426; 93005; 99285

== ENCOUNTER 2021-03-25 14:56 | Emergency (ER) | payer MEDICARE, MEDICAID, SELFPAY ==
[2021-03-25 14:58] VITALS: BP 158/70; PULSE 55; RESP 16; TEMP 36.8; O2SAT 99; BMI 52.7
[2021-03-25 15:04] VITALS: BP 158/70; PULSE 55; RESP 16; O2SAT 99
--- NOTE | 2021-03-25 15:17 | EKG12_ITS ---
Test Reason : MEDICAL CLEARANCE Blood Pressure : / mmHG Vent. Rate : 055 BPM Atrial Rate : 055 BPM P-R Int : 164 ms QRS Dur : 104 ms QT Int : 436 ms P-R-T Axes : 021 030 044 degrees QTc Int : 417 ms Sinus bradycardia Otherwise normal ECG Confirmed by MICHELLE ARCE, CAROLE ([id number]), research editor MILY SHAH ([id number]) on 03/29/2021 11:27:17 AM Referred By: LEILA Confirmed By:CAROLE MARTINEZ MD
--- NOTE | 2021-03-25 15:19 | EDS_ITS ---
HPI HPI - Psych History of Present Illness Chief Complaint: Mental Health Detail of Chief Complaint: suicidal ideation Informant: patient Onset/Context/Timing Onset: Today (about 30 min ago) Context: Sudden Onset Timing: Continuous Current Severity: Moderate Maximum Severity: Moderate Associated Symptoms Associated Symptoms - Psych: Positive for Suicidal Thoughts Specific plan (suicidal thought): OD Narrative Narrative: Patient states she was feeling suicidal when she ingested 2 handfuls of Aleve. She states she vomited up small amount of fluid in between these, so she had to wait until the next handful. She states she was keeping his other pills in the same bottle, and when asked if she remembers taking other colored pills, she states they all look like Aleve except 1 or 2 of them looked white and she states they may have just been Aleve with the codeine that came off but I am not sure. When asked what other pills she kept with these, she does not know exactly but thinks possibly aspirin, possibly sleeping pills, etc. No other specific medications noted by the patient. She denies vomiting any pill fragments. She feels nauseated currently with no other symptoms. She has had no hematemesis. [facility] Medical History (Updated 03/25/21 @ 15:[address] King Migule MD) Anxiety and depression Home Medications levetiracetam 1,000 mg PO BREAKFAST 05/24/15 [History Last Taken Unknown] levetiracetam 500 mg PO QHS 11/12/15 [History Last Taken Unknown] biotin 1 tab PO DAILY 09/06/17 [History Last Taken Unknown] ferrous sulfate 1 tab PO DAILY 09/06/17 [History Last Taken Unknown] cholecalciferol (vitamin D3) 2,000 unit PO DAILY 09/05/18 [History Last Taken Unknown] alprazolam [Xanax] 2 mg PO BID 07/28/20 [History Last Taken Unknown] metformin 500 mg PO BID 01/16/21 [History Last Taken Unknown] norgestimate-ethinyl estradiol [[place]] 1 tab PO DAILY 01/16/21 [History Last Taken Unknown] cpnefvzq-mbd-Zi-FA [] 1 tab PO DAILY 02/10/21 [History Last Taken Unknown] doxepin 50 mg PO QHS 02/25/21 [History Last Taken Unknown] Allergy/AdvReac Type Severity Reaction Status Date / Time phenobarbital Allergy Unknown Verified 02/25/21 10:40 Family History Mother Heart disease Surgical History H/O dilation and curettage History of hysteroscopy partial labotomy Social History Smoking Status: Never smoker alcohol intake: current details: social substance use type: does not use caffeine: Yes what type of physical activity do you participate in: none seatbelt use: always do you feel safe at home: No additional social history: single-unemployed ROS ROS ED Constitutional Constitutional ED: Denies chills or fever(s) Eyes Eyes: Denies change in vision or diplopia ENT ENT ED: Denies rhinorrhea or sore throat Cardiovascular Cardiovascular: Denies chest pain or palpitations Respiratory/Chest Respiratory/Chest: Denies cough or dyspnea Gastrointestinal Gastrointestinal: Reports nausea and vomiting; Denies abdominal pain or diarrhea Genitourinary Genitourinary ED: Denies dysuria or hematuria Musculoskeletal Musculoskeletal: Denies back pain or neck pain Integumentary Denies abscess or rash Neurologic Neurologic: Denies headache(s), paresthesias or weakness Psychiatric Psychiatric: Reports depression, suicidal ideation and suicidal thoughts; Denies homicidal ideation EXAM Physical Exam Const Vital Signs: 03/25/21 14:58 03/25/21 15:04 03/25/21 18:43 Temperature 98.3 F Temperature Source Temporal Pulse Rate 55 L 55 L 80 Respiratory Rate 16 16 14 Blood Pressure 158/70 H 158/70 H 147/83 H Blood Pressure Mean 99 99 104 Pulse Ox 99 99 99 Oxygen Delivery Method Room Air Room Air Room Air Positive well nourished and well developed Constitutional Narrative: hirsuit General Appearance ED: well developed and NAD Nutritional Appearance: morbidly obese HEENT Reports moist mucous membranes normocephalic and atraumatic Eyes PERRL and EOMs intact bilaterally General Eye ED: Negative for scleral icterus Neck no lymphadenopathy and supple Resp normal respiratory effort and clear to auscultation bilaterally Cardio no murmurs Rate: regular rate Rhythm: regular rhythm GI non-tender and non-distended Auscultation: normoactive bowel sounds Palpation: soft Back/Spine no CVA tenderness and normal ROM Extremity normal to inspection General Extremety ED: Negative for edema General Extremity: Negative for edema Neuro oriented x3, CN's II-XII intact bilaterally, no sensory deficits noted and gait normal Sensorium / Orientation: alert Motor Exam: strength 5/5 throughout Psych mental status grossly normal, thought process normal, cooperative, activity/motor behavior normal and denies homicidal ideation Mood & Affect: depressed Thought Content: suicidality Skin Lesions: no lesions Rashes: no rashes MDM MDM MDM Narrative Medical decision making narrative: Patient was given charcoal. She was also given Zofran she had no more emesis. Her testing is within normal limits, and she had no symptoms of GI bleeding while observed here for over 5 hours. Her toxicology with salicylates and acetaminophen were all negative, she did have benzos but she takes alprazolam and was otherwise negative. She is medically cleared. Discussed with social work psychiatry, she will be transferred. Lab Data Attestation: I reviewed the patient's lab results. Labs: Laboratory Results - last 24 hr 03/25/21 03/25/21 03/25/21 15:40 15:40 Unknown WBC 5.6 RBC 5.04 Hgb 15.0 Hct 44.5 MCV 88.3 MCH 29.8 MCHC 33.7 RDW Std Deviation 39.1 RDW Coeff of Thomas 12.1 Plt Count 367 MPV 10.1 Immature Gran % (Auto) 0.400 Neut % (Auto) 53.2 Lymph % (Auto) 37.5 [place] % (Auto) 7.3 Eos % (Auto) 0.9 Baso % (Auto) 0.7 Absolute Neuts (auto) 3.0 Absolute Lymphs (auto) 2.11 Nucleated RBC % 0 Sodium Potassium Chloride Carbon Dioxide Anion Gap BUN Creatinine Estim Creat Clear Calc Est GFR (MDRD) Af Amer Est GFR (MDRD) Non-Af BUN/Creatinine Ratio Glucose Calcium Serum , Qual Urine Color Yellow Urine Clarity Cloudy Urine pH 8.0 Ur Specific Hilbert 1.010 Urine Protein 30 H Urine Glucose (UA) Normal Urine Ketones Negative Urine Occult Blood 250 H Urine Nitrite Negative Urine Bilirubin Negative Urine Urobilinogen Normal Ur Leukocyte Esterase 25 H Urine RBC > 100 SEEN Urine WBC 0-5 SEEN Ur Squamous Epith Cells 0-5 SEEN Amorphous Sediment 2+ PHOS Urine Bacteria 0 SEEN Urine Mucus 0 SEEN Salicylates Urine Opiates Screen NEGATIVE Urine Methadone Screen NEGATIVE Acetaminophen Ur Barbiturates Screen NEGATIVE Ur Phencyclidine Scrn NEGATIVE Ur Amphetamines Screen NEGATIVE U Methamphetamin-MDMA NEGATIVE U Benzodiazepines Scrn POSITIVE H Urine Cocaine Screen NEGATIVE U Cannabinoids Screen NEGATIVE Ur Drug Screen Comment Ethyl Alcohol 03/25/21 03/25/21 03/25/21 Unknown Unknown Unknown WBC RBC Hgb Hct MCV MCH MCHC RDW Std Deviation RDW Coeff of Thomas Plt Count MPV Immature Gran % (Auto) Neut % (Auto) Lymph % (Auto) [place] % (Auto) Eos % (Auto) Baso % (Auto) Absolute Neuts (auto) Absolute Lymphs (auto) Nucleated RBC % Sodium 140 Potassium 3.6 Chloride 107 Carbon Dioxide 27.0 Anion Gap 6 BUN 11 Creatinine 0.82 Estim Creat Clear Calc 81.11 Est GFR (MDRD) Af Amer 101 Est GFR (MDRD) Non-Af 83 BUN/Creatinine Ratio 13.4 Glucose 102 Calcium 9.0 Serum , Qual NEGATIVE Urine Color Urine Clarity Urine pH Ur Specific Hilbert Urine Protein Urine Glucose (UA) Urine Ketones Urine Occult Blood Urine Nitrite Urine Bilirubin Urine Urobilinogen Ur Leukocyte Esterase Urine RBC Urine WBC Ur Squamous Epith Cells Amorphous Sediment Urine Bacteria Urine Mucus Salicylates < 1.7 L Urine Opiates Screen Urine Methadone Screen Acetaminophen < 2.0 L Ur Barbiturates Screen Ur Phencyclidine Scrn Ur Amphetamines Screen U Methamphetamin-MDMA U Benzodiazepines Scrn Urine Cocaine Screen U Cannabinoids Screen Ur Drug Screen Comment Ethyl Alcohol < 3.0 EKG Initial EKG: Attestation: I personally reviewed and interpreted this EKG as follows: Interpretation: Sinus Rhythm and No Acute Injury Pattern Comments: Normal intervals. Normal EKG. Discharge Plan Triage Chief Complaint: Mental Health ED Provider: King Miguel Dx/Rx/DC Orders Clinical Impression: Depression with suicidal ideation, Suicide gesture, NSAID overdose Prescriptions: No Action levetiracetam 500 MG tablet 1,000 mg PO BREAKFAST RF: 0 levetiracetam 500 MG tablet 500 mg PO QHS RF: 0 ferrous sulfate 325 MG tablet 1 tab PO DAILY RF: 0 biotin 5,000 MCG tablet,disintegrating 1 tab PO DAILY RF: 0 cholecalciferol (vitamin D3) 1,000 UNIT tablet 2,000 unit PO DAILY RF: 0 alprazolam [Xanax] 2 mg Tablet 2 mg PO BID RF: 0 metformin 500 mg tablet 500 mg PO BID RF: 0 norgestimate-ethinyl estradiol [[place]inyah] 0.25-35 mg-mcg tablet 1 tab PO DAILY RF: 0 1 mg Tablet 1 tab PO DAILY RF: 0 doxepin 50 mg capsule 50 mg PO QHS RF: 0 Primary Care Provider: Care Physician,No Primary Referrals: Care Physician,No Primary [Primary Care Provider] - Disposition Disposition: Psychiatric Hospital or Unit
[2021-03-25 15:34] LABS: Absolute Lymphocyte Count 2.11 X10^3/uL (0.83-4.51); Basophil# 0.04 X10^3/uL; Basophil% 0.7 % (0-1); Eosinophil# 0.05 X10^3/uL; Eosinophils% 0.9 % (0-5); Hematocrit 44.5 % (37-47); Lymphocyte # 2.11 X10^3/ul (0.83-4.51); Lymphocyte % 37.5 % (19-41); Mean Corp Hgb Conc 33.7 g/dL (32-36); Mean Corpuscular Hgb 29.8 pg (27.0-32.0); Mean Corpuscular Volume 88.3 fL (81-99); Mean Platelet Vol. 10.1 fl (6.2-12.0); Monocyte# 0.41 X10^3/uL; Monocyte% 7.3 % (0-10); NRBC Flagged by Analyzer 0 % (0-5); Neutrophil # 2.99 X10^3/uL (2.7-7.7); Neutrophil % 53.2 % (47-70); Platelet Count 367 K/mm3 (150-450); RBC Distribution Width CV 12.1 % (11.6-14.6); RBC Distribution Width SD 39.1 fl (35.1-43.9); Red Blood Count 5.04 M/mm3 (4.2-5.4); White Blood Count 5.6 K/mm3 (4.4-11.0)
[2021-03-25 15:42] LABS: Internal QC Validated? YES +Cl - CLEAR BKGD; Pregnancy, Serum, hCG Quali. NEGATIVE Negative
[2021-03-25] MEDS: Ondansetron ODT 4 MG Tablet 8 MG PO (15:44)
[2021-03-25] MEDS: Activated Charcoal 25 GM/120 ML BOT PO (15:44)
[2021-03-25 15:46] LABS: Anion Gap 6 (5-15); BUN 11 mg/dL (7-18); BUN/Creat Ratio 13.4 RATIO (10-20); Chloride 107 mmol/L (98-107); Creatinine, Serum 0.82 mg/dL (0.55-1.02); EST Glomerular Filtration Rate 83 mL/min (>60); Est Glom Filt Rate - Afr Amer 101 mL/min (>60); Estimated Creatinine Clearance 81.11 ml/min; Glucose 102 mg/dL (74-106); Potassium 3.6 mmol/L (3.5-5.1); Sodium Level 140 mmol/L (136-145)
[2021-03-25 15:52] LABS: Acetaminophen (Tylenol) Level < 2.0 ug/mL (10.0-30.0); Alcohol, Blood (Medical)-Serum < 3.0 mg/dL; Salicylate < 1.7 mg/dL (2.8-20.0)
[2021-03-25 15:56] LABS: Bacteria 0 SEEN /hpf (None Seen); Mucous, Urine 0 SEEN /hpf (<or=2+)
[2021-03-25 16:00] LABS: Color, Urine Yellow (Yellow); Glucose, Dipstick Normal (Normal); Ketone-Dipstick Negative (Negative); Leukocyte Esterase-Dipstick 25 /ul (Negative); Nitrite-Dipstick Negative (Negative); Occult Blood-Urine 250 /ul (Negative); Protein-Dipstick 30 mg/dl (Negative); Urine Bilirubin Dipstick Negative (Negative); Urine Clarity Cloudy (Clear); Urine Urobilinogen Normal (Normal)
[2021-03-25 16:23] LABS: Amorphous Sediment 2+ PHOS; Red Blood Cells-Urine > 100 SEEN /hpf (0-5); Squamous Epithelial Cells - UA 0-5 SEEN /hpf (5-10); White Blood Cells 0-5 SEEN /hpf (0-5)
[2021-03-25 16:31] LABS: Amphetamine Urine VISTA NEGATIVE (<1000 ng/mL); Barbiturate Urine VISTA NEGATIVE (< 200 ng/mL); Benzodiazepine Urine VISTA POSITIVE (< 200 ng/mL); Cocaine Urine VISTA NEGATIVE (< 300 ng/mL); Ecstacy Urine VISTA NEGATIVE (< 500 ng/mL); Methadone Urine VISTA NEGATIVE (< 300 ng/mL); PCP Urine VISTA NEGATIVE (< 25 ng/mL); THC Urine VISTA NEGATIVE (< 50 ng/mL); Vista UDS pH Range 6
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
--- NOTE | 2021-03-25 17:08 | CM.ED ---
Addendum entered by Clara Patricio 03/25/21 17:48: MARIAH Note SW received call from [facility]. THey need EKG. EKG was faxed to them. Clara GARCIA Original Note: MARIAH Note SW received call from [facility] earlier today advising that they had beds. MARIAH called [facility]. They have beds. MARIAH made verbal referral and then faxed paper referral to [facility] for consideration. Clara GARCIA
--- NOTE | 2021-03-25 18:41 | ED.RN ---
PER ZEB DOCUMENT RESTORER, PT HAS BEEN ACCEPTED AT [facility], BUT NOT TILL AFTER 2099.
[2021-03-25 18:43] VITALS: BP 147/83; PULSE 80; RESP 14; O2SAT 99
--- NOTE | 2021-03-25 19:19 | CM.ED ---
Addendum entered by Clara Patricio 03/25/21 20:34: SW updated patient that she is going to [facility]. Original Note: MARIAH Note - MARIAH called [facility]. Patient has been accepted.Accepting MD is Melecio. Patient's room number will be assigned at intake. RN to RN is [phone]. RN updated. Raquel, crude unit operator to schedule transport. Transport of patient will need to be after 9pm tonight. Plan: [facility] Clara GARCIA
--- NOTE | 2021-03-25 20:30 | CM.ED ---
MARIAH Note MARIAH called [facility] and advised patient was leaving at 8:30pm MARIAH faxed pink slip and statement of medical clearance to [facility]. MARIAH left voice mail for Ara Hutson,patient's counselor, that patient is being admitted to [facility]. Plan: [facility]. Clara GARCIA
--- NOTE | 2021-03-25 20:52 | CM.ED ---
MARIAH Note MARIAH called Stacie at [facility]. ADvised that this creative services writer faxed copy of pink slip and also statement of medical clearance to [facility]. MARIAH advised patient was to leave at 8:30pm but still here. Stacie said that was fine. Clara kumar
--- NOTE | 2021-03-25 21:06 | ED.RN ---
[facility] unable to take that information at this time, we have a situation, please call back in 15 minutes.
[2021-03-25 21:07] VITALS: BP 122/66; PULSE 89; RESP 16; TEMP 36.1; O2SAT 99
[2021-03-25] MEDS: levETIRAcetam 1,000 MG Tablet 1000 MG PO (21:12)
[2021-03-25] MEDS: metFORMIN HCl 500 MG Tablet PO (21:12)
[2021-03-25 21:41] VITALS: BP 122/66; PULSE 89; RESP 16; TEMP 36.1; O2SAT 99
== END 2021-03-25 21:33 ==
PROVIDERS: Emergency Provider Emergency Medicine; Visit Provider Emergency Medicine
DX: T39.312A Poisoning by propionic acid derivatives, intentional self-harm, initial encounter (principal); E66.01 Morbid (severe) obesity due to excess calories; Z68.43 Body mass index [BMI] 50.0-59.9, adult; F32.A Depression, unspecified; X58.XXXA Exposure to other specified factors, initial encounter; Y93.9 Activity, unspecified; Y92.9 Unspecified place or not applicable; F41.9 Anxiety disorder, unspecified; Z79.899 Other long term (current) drug therapy
CPT/HCPCS: 80048; 80307; 80329; 81001; 82077; 84703; 85025; 87426; 93005; 99285; A4216; G0480

== ENCOUNTER 2021-08-02 21:35 | Emergency (ER) | payer MEDICARE, MEDICAID, SELFPAY ==
[2021-08-02 21:36] VITALS: BP 160/91; PULSE 91; RESP 20; TEMP 37.1; O2SAT 97; BMI 52.0
--- NOTE | 2021-08-02 21:55 | EX.ED.DYSGE1 ---
HPI History of Present Illness Chief Complaint: Anxiety Informant: patient Onset/Context/Timing Onset: Days Context: Gradual Onset Timing: Intermittent Quality: Difficulty talking, spitting up foamy sputum Location: Generalized Worsened by: Nothing Relieved by: Nothing Narrative Narrative: Patient presents with panic attacks that have been getting worse over the past few days. Patient states they are intermittent. Patient states she gets panicky and she started spitting up some foamy sputum. Patient states she has difficulty talking when these come on. Patient states nothing makes them better and nothing makes them worse. Patient denies any chest pain. Patient does admit to some mild shortness of breath with this. Patient denies any paresthesias or weakness. Patient does admit to a mild headache. Patient states her medications were adjusted recently and her Xanax was decreased and she was started on propanolol. Patient is unsure if this is what is causing the problem. [facility] Medical History (Updated 08/02/21 @ 22:[address] Foster Chamorro, DO) Anxiety and depression Home Medications levetiracetam 500 mg PO QHS 05/24/15 [History Last Taken Unknown] levetiracetam 1,000 mg PO BREAKFAST 11/12/15 [History Last Taken Unknown] biotin 1 tab PO DAILY 09/06/17 [History Last Taken Unknown] ferrous sulfate 1 tab PO DAILY 09/06/17 [History Last Taken Unknown] cholecalciferol (vitamin D3) 2,000 unit PO DAILY 09/05/18 [History Last Taken Unknown] alprazolam [Xanax] 2 mg PO BID 07/28/20 [History Last Taken Unknown] metformin 500 mg PO BID 01/16/21 [History Last Taken Unknown] norgestimate-ethinyl estradiol [[place]eward-Linyah] 1 tab PO DAILY 01/16/21 [History Last Taken Unknown] [id number] [] 1 tab PO DAILY 02/10/21 [History Last Taken Unknown] propranolol 10 mg PO PRN PRN 08/02/21 [History Last Taken Unknown] Allergy/AdvReac Type Severity Reaction Status Date / Time phenobarbital Allergy Unknown Verified 08/02/21 21:38 Family History Mother Heart disease Surgical History H/O dilation and curettage History of hysteroscopy partial labotomy Social History Smoking Status: Never smoker alcohol intake: current details: social substance use type: does not use caffeine: Yes what type of physical activity do you participate in: none seatbelt use: always do you feel safe at home: No additional social history: single-unemployed ROS ROS ED Constitutional Constitutional ED: Reports chills and subjective; Denies fever(s) Eyes Eyes: Denies blurry vision or change in vision ENT ENT ED: Denies rhinorrhea or sore throat Cardiovascular Cardiovascular: Denies chest pain or palpitations Respiratory/Chest Respiratory/Chest: Reports dyspnea; Denies cough Gastrointestinal Gastrointestinal: Denies nausea or vomiting Genitourinary Genitourinary ED: Denies dysuria or hematuria Musculoskeletal Musculoskeletal: Denies back pain or neck pain Integumentary Denies abscess or rash Neurologic Neurologic: Reports headache(s); Denies weakness Psychiatric Psychiatric: Reports anxiety Allergic/Immunologic Allergic/Immunologic ED: Denies mouth swelling or urticaria EXAM Physical Exam Const Vital Signs: 08/02/21 21:36 Temperature 98.7 F Temperature Source Temporal Pulse Rate 91 Respiratory Rate 20 H Blood Pressure 160/91 H Blood Pressure Mean 114 Pulse Ox 97 Oxygen Delivery Method Room Air Positive well nourished, well developed and obese General Appearance ED: well developed and NAD Nutritional Appearance: obese HEENT Reports moist mucous membranes Neck supple and no JVD Resp normal respiratory effort and clear to auscultation bilaterally Cardio regular rate, regular rhythm and no murmurs GI normal to inspection, nondistended, normoactive bowel sounds and non-tender Palpation: soft Extremity normal to inspection General Extremety ED: Negative for edema or tenderness General Extremity: Negative for edema Neuro oriented x3, CN's II-XII intact bilaterally and no sensory deficits noted Sensorium / Orientation: alert Motor Exam: strength 5/5 throughout Psych mental status grossly normal Skin no rashes or lesions noted MDM MDM MDM Narrative Medical decision making narrative: Patient was given a dose of hydroxyzine here. Patient requested urine test to be done as she is unsure if she is developing a yeast infection or urinary tract infection. This was ordered. Leukocyte esterase was negative. There were 0-5 white blood cells noted. There are 5-10 epithelial cells and 2+ bacteria. This is likely contaminant. There is still a possibility that it could be vaginal candidiasis. Patient was given a dose of Diflucan here. Patient was instructed to follow-up with her primary care physician in 7 to 10 days. Patient understood and was agreeable with the plan. All questions were answered. Lab Data Labs: Laboratory Results - last 24 hr 08/02/21 22:00 Urine Color Yellow Urine Clarity Clear Urine pH 6.0 Ur Specific [place] 1.015 Urine Protein Negative Urine Glucose (UA) Normal Urine Ketones Negative Urine Occult Blood Negative Urine Nitrite Negative Urine Bilirubin Negative Urine Urobilinogen Normal Ur Leukocyte Esterase Negative Urine RBC 0-5 SEEN Urine WBC 0-5 SEEN Ur Squamous Epith Cells 5-10 SEEN Urine Bacteria 2+ Urine Mucus 0 SEEN Discharge Plan Triage Chief Complaint: Anxiety ED Provider: Foster Chamorro Dx/Rx/DC Orders Clinical Impression: Anxiety, Vaginal candidiasis Instructions: ED Panic Attack, ED CATARINA VAGINITIS Prescriptions: No Action levetiracetam 500 MG tablet 500 mg PO QHS RF: 0 levetiracetam 500 MG tablet 1,000 mg PO BREAKFAST RF: 0 ferrous sulfate 325 MG tablet 1 tab PO DAILY RF: 0 biotin 5,000 MCG tablet,disintegrating 1 tab PO DAILY RF: 0 cholecalciferol (vitamin D3) 1,000 UNIT tablet 2,000 unit PO DAILY RF: 0 alprazolam [Xanax] 2 mg Tablet 2 mg PO BID RF: 0 metformin 500 mg tablet 500 mg PO BID RF: 0 norgestimate-ethinyl estradiol [Seward-Linyah] 0.25-35 mg-mcg tablet 1 tab PO DAILY RF: 0 1 mg Tablet 1 tab PO DAILY RF: 0 propranolol 10 mg tablet 10 mg PO PRN PRN (Reason: Anxiety) RF: 0 Primary Care Provider: Abdirashid Vazquez Referrals: Abdirashid Vazquez DO [Primary Care Provider] - 1-2 Weeks Disposition Disposition: Home, Self Care
[2021-08-02] MEDS: hydrOXYzine PAM 25 MG Capsule PO (21:59)
[2021-08-02 22:09] LABS: Mucous, Urine 0 SEEN /hpf (<or=2+)
[2021-08-02 22:25] LABS: Color, Urine Yellow (Yellow); Glucose, Dipstick Normal (Normal); Ketone-Dipstick Negative (Negative); Leukocyte Esterase-Dipstick Negative /ul (Negative); Nitrite-Dipstick Negative (Negative); Occult Blood-Urine Negative /ul (Negative); Protein-Dipstick Negative (Negative); Specific Gravity, Urine 1.015 (1.002-1.030); Urine Bilirubin Dipstick Negative (Negative); Urine Clarity Clear (Clear); Urine Urobilinogen Normal (Normal)
[2021-08-02 22:35] LABS: Bacteria 2+ /hpf (None Seen); Red Blood Cells-Urine 0-5 SEEN /hpf (0-5); Squamous Epithelial Cells - UA 5-10 SEEN /hpf (5-10); White Blood Cells 0-5 SEEN /hpf (0-5)
[2021-08-02] MEDS: Fluconazole 100 MG Tablet 150 MG PO (23:05)
== END 2021-08-02 23:07 | disposition home or self-care (01) ==
PROVIDERS: Emergency Provider Emergency Medicine; PCP Student in an Organized Health Care Education/Training Program; Visit Provider Emergency Medicine
DX: F41.9 Anxiety disorder, unspecified (principal); B37.3 Candidiasis of vulva and vagina; R51.9 Headache, unspecified; F32.A Depression, unspecified; Z79.899 Other long term (current) drug therapy
CPT/HCPCS: 81001; 99285

== ENCOUNTER 2021-10-18 14:53 | Emergency (ER) | payer MEDICARE, MEDICAID, SELFPAY ==
[2021-10-18] VITALS (10 sets, daily range): BP systolic 130–151; BP diastolic 80–108; PULSE 74–89; RESP 15–18; TEMP 36.4; O2SAT 95–99; BMI 50.8
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
[2021-10-18 15:47] LABS: Absolute Neutrophil Count 3.6 X10^3/uL (2.0-7.7); Basophil# 0.03 X10^3/uL; Basophil% 0.5 % (0-1); Eosinophil# 0.08 X10^3/uL; Eosinophils% 1.4 % (0-5); Hematocrit 41.5 % (37-47); Hemoglobin 14.4 g/dL (12.0-15.0); Lymphocyte % 29.6 % (19-41); Mean Corp Hgb Conc 34.7 g/dL (32-36); Mean Corpuscular Hgb 30.3 pg (27.0-32.0); Mean Corpuscular Volume 87.2 fL (81-99); Mean Platelet Vol. 9.4 fl (6.2-12.0); Monocyte# 0.36 X10^3/uL; Monocyte% 6.3 % (0-10); NRBC Flagged by Analyzer 0 % (0-5); Neutrophil # 3.56 X10^3/uL (2.7-7.7); Neutrophil % 61.9 % (47-70); Platelet Count 310 K/mm3 (150-450); RBC Distribution Width SD 38.6 fl (35.1-43.9); Red Blood Count 4.76 M/mm3 (4.2-5.4); White Blood Count 5.8 K/mm3 (4.4-11.0)
[2021-10-18 16:08] LABS: Anion Gap 6 (5-15); BUN 12 mg/dL (7-18); BUN/Creat Ratio 14.5 RATIO (10-20); Calcium,Total 9.1 mg/dL (8.5-10.1); Chloride 109 mmol/L (98-107); Creatinine, Serum 0.83 mg/dL (0.55-1.02); EST Glomerular Filtration Rate 82 mL/min (>60); Est Glom Filt Rate - Afr Amer 99 mL/min (>60); Estimated Creatinine Clearance 79.36 ml/min; Glucose 118 mg/dL (74-106); Potassium 3.5 mmol/L (3.5-5.1); Sodium Level 139 mmol/L (136-145)
[2021-10-18 16:10] LABS: Amphetamine Urine VISTA NEGATIVE (<1000 ng/mL); Barbiturate Urine VISTA NEGATIVE (< 200 ng/mL); Benzodiazepine Urine VISTA POSITIVE (< 200 ng/mL); Cocaine Urine VISTA NEGATIVE (< 300 ng/mL); Ecstacy Urine VISTA NEGATIVE (< 500 ng/mL); Methadone Urine VISTA NEGATIVE (< 300 ng/mL); PCP Urine VISTA NEGATIVE (< 25 ng/mL); THC Urine VISTA NEGATIVE (< 50 ng/mL); Vista UDS pH Range 4
[2021-10-18 16:28] LABS: Internal QC Validated? YES +Cl - CLEAR BKGD; Pregnancy, Serum, hCG Quali. NEGATIVE Negative
--- NOTE | 2021-10-18 17:15 | CASEMGMT ---
Social Work Note SW updated that Crisis sent pt in to [facility]. SW placed a call to Diana at Crisis. Diana states that [facility] sent pt in, not them. Assessment will need to be completed. SW to complete assessment. Sabina Patten HEMODIALYSIS RN, GLASS TECHNOLOGIST
[2021-10-18 17:27] LABS: Acetaminophen (Tylenol) Level < 2.0 ug/mL (10.0-30.0); Salicylate < 1.7 mg/dL (2.8-20.0)
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
--- NOTE | 2021-10-18 18:42 | CASEMGMT ---
Social Work Note SW faxed referral to [facility]. Sabina Patten BASIC ACOUSTIC ANALYST, LEATHER DRESSER
--- NOTE | 2021-10-18 19:57 | CASEMGMT ---
Social Work Note SW received call from Conner at [facility] stating he saw pt has a seizure disorder and asked when pt's last seizure disorder was and if her seizures are managed on her medications. SW in to speak with pt. Pt states that her last seizure was in 2013 and her seizures are well managed on her current seizure medications. MARIAH placed a call back to Conner at [facility] and updated him on above information. Conner states he has to check on beds and then will call this worker back. MARIAH placed a call to [facility] and spoke with crane hooker Palma. Palma states she has one bed available but has some patients in their ED, states they will have 2-3 discharges tomorrow. Palma states MARIAH can fax over referral and they can review. MARIAH faxed referral to [facility]. MARIAH placed a call to [facility], no beds tonight, will have beds tomorrow. MARIAH placed a call to [facility] and spoke with Rose Mary, they do have adult beds available. MARIAH faxed referral to [facility]. Sabina Patten CLOTH FOLDER MACHINE, PAPER REEL OPERATOR
--- NOTE | 2021-10-18 20:39 | CM.ED ---
Social Work Note SW received call from Conner at [facility] stating they can accept pt, they just need [place] to be faxed to them with their name. MARIAH asked for accepting information, Conner states he will give accepting information once they receive the [place]. MARIAH faxed [place] to [facility]. Sabina Patten TABLE SAW OPERATOR, PARTNERSHIP DEVELOPMENT MANAGER
--- NOTE | 2021-10-18 21:27 | CM.ED ---
Social Work Note MARIAH placed a call to Conner at [facility]. Accepting physician is Dr. Giordano. Nurse to Nurse [phone]. Pt going to [address]. MARIAH updated pt. [place] to arrange transportation. MD Almaraz updated. MARIAH placed a call to [facility] and updated Chantel to disregard referral. MARIAH attempted to call [facility] and updated Rose Mary to disregard referral. Plan: [facility]. Sabina Patten SYSTEMS MANAGER, LENS GRINDER ROUGH
--- NOTE | 2021-10-18 21:40 | NURSING ---
PHYSICIANS SAID 7A DUE TO 2 [facility] TRIPS.
[2021-10-18] MEDS: Propranolol 10 MG Tablet PO (22:12)
[2021-10-18] MEDS: levETIRAcetam 1,000 MG Tablet 1000 MG PO (22:12)
[2021-10-18] MEDS: ALPRAZolam 0.5 MG Tablet 1 MG PO (22:17)
[2021-10-19] VITALS: RESP 15
[2021-10-19 01:00] VITALS: RESP 15; O2SAT 98
[2021-10-19 02:00] VITALS: RESP 15
[2021-10-19 03:00] VITALS: RESP 14
[2021-10-19 04:06] VITALS: RESP 15
[2021-10-19 06:05] VITALS: BP 136/80; PULSE 75; RESP 19; TEMP 36.6; O2SAT 98
[2021-10-19] MEDS: ALPRAZolam 0.5 MG Tablet 2 MG PO (06:55)
== END 2021-10-19 06:57 ==
PROVIDERS: Emergency Provider Student in an Organized Health Care Education/Training Program; Visit Provider Student in an Organized Health Care Education/Training Program
DX: T42.72XA Poisoning by unspecified antiepileptic and sedative-hypnotic drugs, intentional self-harm, initial encounter (principal); T39.012A Poisoning by aspirin, intentional self-harm, initial encounter; F31.9 Bipolar disorder, unspecified; F44.81 Dissociative identity disorder; G40.909 Epilepsy, unspecified, not intractable, without status epilepticus; R45.851 Suicidal ideations; F43.10 Post-traumatic stress disorder, unspecified; Z79.899 Other long term (current) drug therapy
CPT/HCPCS: 80048; 80307; 80329; 82077; 84703; 85025; 87811; 99285; G0480

== ENCOUNTER 2021-11-03 21:49 | Emergency (ER) | payer MEDICARE, MEDICAID, SELFPAY ==
[2021-11-03 21:50] VITALS: BP 179/95; PULSE 93; RESP 15; TEMP 36.5; O2SAT 99; BMI 54.7
--- NOTE | 2021-11-03 22:09 | EKG12_ITS ---
Test Reason : DYSRHYTHMIA Blood Pressure : / mmHG Vent. Rate : 054 BPM Atrial Rate : 054 BPM P-R Int : 176 ms QRS Dur : 100 ms QT Int : 420 ms P-R-T Axes : 021 036 037 degrees QTc Int : 398 ms Sinus bradycardia with sinus arrhythmia Otherwise normal ECG Confirmed by CRISTINO ARCE, VINEET ([id number]), assignment editor MILY SHAH ([id number]) on 11/04/2021 1:29:32 PM Referred By: PL Confirmed By:RUBÉN GREGG MD
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
[2021-11-03 22:32] LABS: Bacteria 0 SEEN /hpf (None Seen); Mucous, Urine 0 SEEN /hpf (<or=2+); Red Blood Cells-Urine 0 SEEN /hpf (0-5); White Blood Cells 0 SEEN /hpf (0-5)
[2021-11-03 22:33] LABS: Color, Urine Straw (Yellow); Glucose, Dipstick Normal (Normal); Ketone-Dipstick 15 mg/dl (Negative); Leukocyte Esterase-Dipstick Negative /ul (Negative); Nitrite-Dipstick Negative (Negative); Occult Blood-Urine Negative /ul (Negative); Protein-Dipstick Negative (Negative); Urine Bilirubin Dipstick Negative (Negative); Urine Clarity Clear (Clear); Urine Urobilinogen Normal (Normal)
[2021-11-03 22:41] LABS: Squamous Epithelial Cells - UA 0-5 SEEN /hpf (5-10)
== END 2021-11-03 23:19 | disposition home or self-care (01) ==
PROVIDERS: Emergency Provider Emergency Medicine; Visit Provider Emergency Medicine
DX: F41.0 Panic disorder [episodic paroxysmal anxiety] (principal); F44.81 Dissociative identity disorder; G40.909 Epilepsy, unspecified, not intractable, without status epilepticus; F43.10 Post-traumatic stress disorder, unspecified; F32.A Depression, unspecified; R35.0 Frequency of micturition; Z59.89 Other problems related to housing and economic circumstances; Z79.899 Other long term (current) drug therapy
CPT/HCPCS: 81001; 93005; 99281

== ENCOUNTER 2022-01-09 22:23 | Emergency (ER) | payer MEDICARE, MEDICAID, SELFPAY ==
[2022-01-09 22:24] VITALS: BP 141/96; PULSE 112; RESP 21; TEMP 36.3; O2SAT 97; BMI 53.0
--- NOTE | 2022-01-09 23:01 | CT_ITS ---
EXAM: CT HEAD WITHOUT INTRAVENOUS CONTRAST CLINICAL INDICATION: head injury TECHNIQUE: Multiple axial images were obtained of the head without intravenous contrast. This CT exam was performed using one or more of the following dose reduction techniques: automated exposure control, adjustment of the mA and/or kV according to patient size, and/or use of iterative reconstruction technique. This report was created using [employer] report generation technology. RADIATION DOSE: Total DLP: 779.24 mGy-cm. COMPARISON: Cranial CT of 06/07/2020. FINDINGS: BRAIN AND EXTRA-AXIAL SPACES: Stable large area of encephalomalacia within the right temporal lobe, deep to the craniotomy site. Minimal cortical atrophy again noted with prominence of the cortical sulci and sylvian fissures. The ventricles remain normal in size and shape. No intra- or extra-axial hemorrhage. No evidence of acute infarct. No intracranial mass or mass effect. There is preservation of the recinos/white matter interface. Posterior fossa structures are unremarkable. Basal cisterns are patent. BONES/JOINTS: Previous right craniotomy. No linear or depressed skull fracture. SOFT TISSUES: No scalp hematoma. SINUSES: Unremarkable as visualized. Clear. MASTOID AIR CELLS: Unremarkable. Clear. ORBITS: Visualized globes, extraocular muscles, optic nerves and retrobulbar fat appear unremarkable. CT/Brain/Head without Contrast IMPRESSION: No significant interval change. No skull fracture or acute intracranial hemorrhage. Previous right craniectomy again noted with chronic right temporal encephalomalacia. Electronically Signed: Zaire Betts MD at 0:37 EDT ,
--- NOTE | 2022-01-09 23:03 | EX.ED.DYSGE1 ---
HPI History of Present Illness Chief Complaint: Seizure Detail of Chief Complaint: Possible seizure Informant: patient Narrative Narrative: Patient presents the emergency department with concern of possibly having a seizure. Patient states that she has a seizure history but when she had an EEG she was told that her seizures may be anxiety related and was started on Xanax. She continues to take Keppra. Patient states that she just remembers not feeling well and felt a little bit disoriented and she remembers falling. She does not remember getting up but she had some point got. Before this she also felt like a choking sensation in her throat. She did take her Xanax today as well as her Keppra. She is not sure if she had a panic attack but she did bite her tongue and has a bump on her head. She denies recent illness. Prior similar symptoms: [facility] Medical History Anxiety and depression Epilepsy Personality, multiple PTSD (post-traumatic stress disorder) Home Medications levetiracetam 500 mg tablet 500 mg PO BREAKFAST seizures 05/24/15 [History Last Taken Unknown] levetiracetam 500 mg tablet 1,000 mg PO QHS seizures 11/12/15 [History Last Taken Unknown] biotin 5,000 mcg disintegrating tablet 1 tab PO DAILY mouth care 09/06/17 [History Last Taken Unknown] ferrous sulfate 325 mg (65 mg iron) tablet 1 tab PO DAILY supplement 09/06/17 [History Last Taken Unknown] cholecalciferol (vitamin D3) 25 mcg (1,000 unit) tablet 2,000 unit PO DAILY supplement 09/05/18 [History Last Taken Unknown] alprazolam 2 mg tablet (Xanax) 2 mg PO BID 07/28/20 [History Last Taken Unknown] metformin 500 mg tablet 500 mg PO BID 01/16/21 [History Last Taken Unknown] kvhcdmer-[id number]-Gh-FA 1 mg tablet 1 tab PO DAILY 02/10/21 [History Last Taken Unknown] propranolol 10 mg tablet 10 mg PO QHS 08/02/21 [History Last Taken Unknown] alprazolam 1 mg tablet (Xanax) 1 mg PO QHS 10/18/21 [History Last Taken Unknown] citalopram 20 mg tablet (Celexa) 30 mg PO DAILY 10/18/21 [History Last Taken Unknown] Allergy/AdvReac Type Severity Reaction Status Date / Time phenobarbital Allergy Unknown Verified 01/09/22 22:36 Family History Mother Heart disease Surgical History H/O dilation and curettage History of hysteroscopy partial labotomy Social History Smoking Status: Never smoker alcohol intake: current details: social substance use type: does not use caffeine: Yes what type of physical activity do you participate in: none seatbelt use: always do you feel safe at home: No additional social history: single-unemployed ROS ROS ED Review of Systems ROS Unobtainable: other Constitutional Constitutional ED: Reports lethargy; Denies chills, fever(s), sweats or weight loss Eyes Eyes: Denies blurry vision, change in vision or diplopia ENT ENT ED: Reports other Details: Bite wound to tongue ; Denies rhinorrhea or sore throat Cardiovascular Cardiovascular: Denies chest pain, orthopnea or racing heartbeat Respiratory/Chest Respiratory/Chest: Denies cough, dyspnea, dyspnea on exertion, orthopnea or sputum Gastrointestinal Gastrointestinal: Denies abdominal pain, diarrhea, nausea or vomiting Genitourinary Genitourinary ED: Denies dysuria, hematuria or urinary frequency Musculoskeletal Musculoskeletal: Denies arthralgias, back pain, myalgias or neck pain Integumentary Denies abscess, Abrasions or rash Neurologic Neurologic: Reports headache(s); Denies weakness Psychiatric Psychiatric: Denies anxiety, depression or suicidal thoughts Endocrine Endocrinology: Denies polydipsia, polyphagia or polyuria Hematologic/Lymphatic Hematologic/Lymphatic: Denies easy bleeding, easy bruising or lymphadenopathy Allergic/Immunologic Allergic/Immunologic ED: Denies mouth swelling, tongue swelling or urticaria EXAM Physical Exam Const Vital Signs: 01/09/22 22:24 Temperature 97.4 F L Temperature Source Temporal Pulse Rate 112 H Respiratory Rate 21 H Blood Pressure 141/96 H Blood Pressure Mean 111 Pulse Ox 97 Oxygen Delivery Method Room Air Positive well nourished and well developed General Appearance ED: well developed and NAD HEENT Reports TM's clear and moist mucous membranes HEENT Narrative: Bite wounds noted to the anterior aspect of the tongue. No active bleeding. No gaping wounds. Patient does have a small hematoma to the right posterior occiput. No bony step-offs. normocephalic; Negative for atraumatic, trauma or tenderness Tympanic Membrane ED: Yes TM's clear Eyes PERRL and EOMs intact bilaterally General Eye ED: Negative for pale conjunctiva or scleral icterus Neck no lymphadenopathy, supple and no JVD General: Negative for tenderness Chest Wall inspection of chest normal and palpation of chest normal Chest: Negative for tenderness Resp normal respiratory effort and clear to auscultation bilaterally Effort and Inspection: Negative for respiratory distress or pain with movement Auscultation: Negative for rhonchi, wheezes or diminished lung sounds Cardio regular rate, regular rhythm, S1 normal heart sound, S2 normal heart sound and no murmurs Peripheral Pulses: pulses 2+ throughout GI normal to inspection, nondistended, normoactive bowel sounds, soft to palpation, non-tender, non-distended and no masses Back/Spine no CVA tenderness and no thoracic nor lumbar tenderness Extremity normal to inspection General Extremety ED: Negative for edema General Extremity: Negative for edema Neuro oriented x3, CN's II-XII intact bilaterally, no sensory deficits noted and gait normal Sensorium / Orientation: awake, alert, oriented to person, oriented to place and oriented to time Motor Exam: strength 5/5 throughout and strength abnormal Psych mental status grossly normal Skin no rashes or lesions noted and no wounds MDM MDM MDM Narrative Medical decision making narrative: IV line established on arrival. Patient had a CT scan of the brain without contrast that was unremarkable. Lab work-up showed a slightly depressed potassium of 3.3 for which I will give her 40 medical events of potassium chloride p.o. At this point suspect patient may have had a seizure as she does have history of seizures. Patient advised to continue with her medications. Discharged home in stable condition. Lab Data Attestation: I reviewed the patient's lab results. Labs: Laboratory Results - last 24 hr 01/09/22 01/09/22 23:13 23:13 WBC 7.8 RBC 4.80 Hgb 14.6 Hct 41.6 MCV 86.7 MCH 30.4 MCHC 35.1 RDW Std Deviation 38.3 RDW Coeff of Thomas 11.9 Plt Count 319 MPV 10.0 Immature Gran % (Auto) 0.400 Neut % (Auto) 72.8 H Lymph % (Auto) 19.0 [place] % (Auto) 6.8 Eos % (Auto) 0.4 Baso % (Auto) 0.6 Absolute Neuts (auto) 5.7 Absolute Lymphs (auto) 1.48 Nucleated RBC % 0 Sodium 138 Potassium 3.3 L Chloride 104 Carbon Dioxide 22.0 Anion Gap 12 BUN 12 Creatinine 1.10 H Estim Creat Clear Calc 59.88 Est GFR (MDRD) Af Amer 71 Est GFR (MDRD) Non-Af 59 L BUN/Creatinine Ratio 10.9 Glucose 153 H Calcium 9.6 Total Bilirubin 0.40 AST 23 ALT 58 H Alkaline Phosphatase 71 Total Protein 7.9 Albumin 3.8 Globulin 4.1 Albumin/Globulin Ratio 0.9 Radiography Diagnostic Testing: Clinical Impression(s) from Imaging Studies Brain CT 01/09/22 23:01 IMPRESSION: No significant interval change. No skull fracture or acute intracranial hemorrhage. Previous right craniectomy again noted with chronic right temporal encephalomalacia. Electronically Signed: Zaire Betts MD at 0:37 EDT , Discharge Plan Triage Chief Complaint: Seizure ED Provider: Florence Sparks Dx/Rx/DC Orders Clinical Impression: Seizure, Hypokalemia, Head injury Instructions: ED Head Injury (Adult), ED Hypokalemia, ED Seizure, Recurrent (Adult) Prescriptions: No Action levetiracetam 500 MG tablet 500 mg PO BREAKFAST levetiracetam 500 MG tablet 1,000 mg PO QHS ferrous sulfate 325 MG tablet 1 tab PO DAILY biotin 5,000 MCG tablet,disintegrating 1 tab PO DAILY cholecalciferol (vitamin D3) 1,000 UNIT tablet 2,000 unit PO DAILY alprazolam [Xanax] 2 mg Tablet 2 mg PO BID metformin 500 mg tablet 500 mg PO BID Label Comments: Take 1 tablet by mouth 3 times daily 1 mg Tablet 1 tab PO DAILY propranolol 10 mg tablet 10 mg PO QHS alprazolam [Xanax] 1 mg Tablet 1 mg PO QHS citalopram [Celexa] 20 mg Tablet 30 mg PO DAILY Primary Care Provider: Care Physician,No Primary Referrals: Skinny Dillard MD [Med Staff - Active Staff] - 3-5 Days Care Physician,No Primary [Primary Care Provider] - Disposition Disposition: Home, Self Care
[2022-01-09] MEDS: 0.9% Normal Saline 1,000 ML 150 ML IV (23:16)
[2022-01-09 23:41] LABS: ALB/GLOB Ratio 0.9 RATIO (0.9-2.4); AST(SGOT) 23 U/L (15-37); Alanine Aminotransfer ALT/SGPT 58 U/L (13-56); Albumin, Serum 3.8 g/dL (3.2-5.0); Alkaline Phosphatase 71 U/L (45-117); Anion Gap 12 (5-15); BUN 12 mg/dL (7-18); BUN/Creat Ratio 10.9 RATIO (10-20); Calcium,Total 9.6 mg/dL (8.5-10.1); Chloride 104 mmol/L (98-107); EST Glomerular Filtration Rate 59 mL/min (>60); Est Glom Filt Rate - Afr Amer 71 mL/min (>60); Estimated Creatinine Clearance 59.88 ml/min; Globulin 4.1 g/dL (2.2-4.2); Glucose 153 mg/dL (74-106); Potassium 3.3 mmol/L (3.5-5.1); Protein, Total 7.9 g/dL (6.4-8.2); Sodium Level 138 mmol/L (136-145)
[2022-01-10] LABS: Absolute Lymphocyte Count 1.48 X10^3/uL (0.83-4.51); Absolute Neutrophil Count 5.7 X10^3/uL (2.0-7.7); Basophil# 0.05 X10^3/uL; Basophil% 0.6 % (0-1); Eosinophil# 0.03 X10^3/uL; Eosinophils% 0.4 % (0-5); Hematocrit 41.6 % (37-47); Hemoglobin 14.6 g/dL (12.0-15.0); Lymphocyte # 1.48 X10^3/ul (0.83-4.51); Mean Corp Hgb Conc 35.1 g/dL (32-36); Mean Corpuscular Hgb 30.4 pg (27.0-32.0); Mean Corpuscular Volume 86.7 fL (81-99); Monocyte# 0.53 X10^3/uL; Monocyte% 6.8 % (0-10); NRBC Flagged by Analyzer 0 % (0-5); Neutrophil # 5.69 X10^3/uL (2.7-7.7); Neutrophil % 72.8 % (47-70); Platelet Count 319 K/mm3 (150-450); RBC Distribution Width CV 11.9 % (11.6-14.6); RBC Distribution Width SD 38.3 fl (35.1-43.9); White Blood Count 7.8 K/mm3 (4.4-11.0)
[2022-01-10] MEDS: Potassium Chloride Oral Tablet 20 MEQ 40 MEQ PO (01:06)
[2022-01-10 01:07] VITALS: BP 140/60; PULSE 110; RESP 18; O2SAT 99
== END 2022-01-10 01:08 | disposition home or self-care (01) ==
PROVIDERS: Emergency Provider Emergency Medicine; Visit Provider Emergency Medicine
DX: S09.90XA Unspecified injury of head, initial encounter (principal); R56.9 Unspecified convulsions; E87.6 Hypokalemia; W19.XXXA Unspecified fall, initial encounter
CPT/HCPCS: 70450; 80053; 85025; 96360; 96361; 99285; J7030; A4216

== ENCOUNTER 2022-08-20 01:23 | Emergency (ER) | payer MEDICARE, MEDICAID, SELFPAY ==
[2022-08-20 01:24] VITALS: BP 155/98; PULSE 87; RESP 15; TEMP 36.4; O2SAT 98; BMI 55.5
--- NOTE | 2022-08-20 01:27 | EKG12_ITS ---
Test Reason : [facility] Blood Pressure : / mmHG Vent. Rate : 074 BPM Atrial Rate : 074 BPM P-R Int : 174 ms QRS Dur : 102 ms QT Int : 394 ms P-R-T Axes : 031 042 037 degrees QTc Int : 437 ms Normal sinus rhythm Normal ECG Confirmed by MERLY ARCE, SALOME ([id number]), supervising editor trailer MILY SHAH ([id number]) on 08/22/2022 1:16:03 PM Referred By: KAMALA Confirmed By:SALOME MORELAND MD
[2022-08-20 01:46] LABS: Absolute Lymphocyte Count 2.13 X10^3/uL (0.83-4.51); Absolute Neutrophil Count 3.6 X10^3/uL (2.0-7.7); Basophil# 0.05 X10^3/uL; Basophil% 0.8 % (0-1); Eosinophil# 0.09 X10^3/uL; Eosinophils% 1.4 % (0-5); Hematocrit 44.4 % (37-47); Hemoglobin 15.2 g/dL (12.0-15.0); Lymphocyte # 2.13 X10^3/ul (0.83-4.51); Lymphocyte % 33.9 % (19-41); Mean Corp Hgb Conc 34.2 g/dL (32-36); Mean Corpuscular Hgb 30.4 pg (27.0-32.0); Mean Corpuscular Volume 88.8 fL (81-99); Mean Platelet Vol. 9.5 fl (6.2-12.0); Monocyte# 0.41 X10^3/uL; Monocyte% 6.5 % (0-10); NRBC Flagged by Analyzer 0 % (0-5); Neutrophil # 3.55 X10^3/uL (2.7-7.7); Neutrophil % 56.6 % (47-70); Platelet Count 300 K/mm3 (150-450); RBC Distribution Width SD 38.7 fl (35.1-43.9); White Blood Count 6.3 K/mm3 (4.4-11.0)
[2022-08-20 01:59] LABS: Anion Gap 6 (5-15); BUN 11 mg/dL (7-18); BUN/Creat Ratio 13.6 RATIO (10-20); Calcium,Total 9.2 mg/dL (8.5-10.1); Chloride 110 mmol/L (98-107); Creatinine, Serum 0.81 mg/dL (0.55-1.02); EST Glomerular Filtration Rate 84 mL/min (>60); Est Glom Filt Rate - Afr Amer 101 mL/min (>60); Estimated Creatinine Clearance 80.52 ml/min; Glucose 107 mg/dL (74-106); Potassium 3.9 mmol/L (3.5-5.1); Sodium Level 142 mmol/L (136-145)
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
[2022-08-20 02:04] LABS: Acetaminophen (Tylenol) Level < 2.0 ug/mL (10.0-30.0); Salicylate < 1.7 mg/dL (2.8-20.0)
[2022-08-20 02:08] LABS: Internal QC Validated? YES +Cl - CLEAR BKGD; Pregnancy, Urine Negative Negative
[2022-08-20 02:24] VITALS: RESP 16
[2022-08-20 02:33] LABS: Amphetamine Urine VISTA NEGATIVE (<1000 ng/mL); Barbiturate Urine VISTA NEGATIVE (< 200 ng/mL); Benzodiazepine Urine VISTA POSITIVE (< 200 ng/mL); Cocaine Urine VISTA NEGATIVE (< 300 ng/mL); Ecstacy Urine VISTA NEGATIVE (< 500 ng/mL); Methadone Urine VISTA NEGATIVE (< 300 ng/mL); PCP Urine VISTA NEGATIVE (< 25 ng/mL); THC Urine VISTA NEGATIVE (< 50 ng/mL); Vista UDS pH Range 4
--- NOTE | 2022-08-20 03:11 | EDS_ITS ---
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 She was brought in by police after being pulled over. Apparently she told the security police officer that she has been extremely depressed and drank alcohol this evening and then deliberately got in her car and began driving around in the hopes that something would happen causing her to wreck and potentially end her life. Secondary to this report the please officer felt it was more prudent to have the patient in the ER other than arrested for DUI and therefore she was brought to the hospital for evaluation. The patient does state that she struggles with depression but states she feels it is no different than her baseline and she also admits to trying to harm himself in the past by drug overdose but states there is no other medications taken this evening [facility] Medical History Anxiety and depression Epilepsy Personality, multiple PTSD (post-traumatic stress disorder) Home Medications levetiracetam 500 mg tablet 1,000 mg PO BREAKFAST seizures 05/24/15 [History Last Taken Unknown] levetiracetam 500 mg tablet 1,000 mg PO QHS seizures 11/12/15 [History Last Taken Unknown] biotin 5,000 mcg disintegrating tablet 1 tab PO DAILY mouth care 09/06/17 [History Last Taken Unknown] ferrous sulfate 325 mg (65 mg iron) tablet 1 tab PO DAILY supplement 09/06/17 [History Last Taken Unknown] cholecalciferol (vitamin D3) 25 mcg (1,000 unit) tablet 2,000 unit PO DAILY supplement 09/05/18 [History Last Taken Unknown] alprazolam 2 mg tablet (Xanax) 2 mg PO BID 07/28/20 [History Last Taken Unknown] metformin 500 mg tablet 500 mg PO BID 01/16/21 [History Last Taken Unknown] alprazolam 1 mg tablet (Xanax) 1 mg PO QHS 10/18/21 [History Last Taken Unknown] citalopram 20 mg tablet (Celexa) 30 mg PO DAILY 10/18/21 [History Last Taken Unknown] Allergy/AdvReac Type Severity Reaction Status Date / Time phenobarbital Allergy Unknown Verified 08/20/22 01:28 propranolol Allergy Rash Verified 08/20/22 01:28 Family History Mother Heart disease Surgical History H/O dilation and curettage History of hysteroscopy partial labotomy Social History Smoking Status: Never smoker alcohol intake: current details: social substance use type: does not use caffeine: Yes what type of physical activity do you participate in: none seatbelt use: always do you feel safe at home: No additional social history: single-unemployed ROS ROS ED Constitutional Constitutional ED: Denies chills or fever(s) Eyes Eyes: Denies change in vision ENT ENT ED: Denies sore throat Cardiovascular Cardiovascular: Denies chest pain Respiratory/Chest Respiratory/Chest: Denies cough or dyspnea Gastrointestinal Gastrointestinal: Denies abdominal pain, diarrhea, nausea or vomiting Genitourinary Genitourinary ED: Denies dysuria Musculoskeletal Musculoskeletal: Denies myalgias Integumentary Denies rash Neurologic Neurologic: Denies headache(s) Psychiatric Psychiatric: Reports anxiety and depression; Denies suicidal ideation or suicidal thoughts Hematologic/Lymphatic Hematologic/Lymphatic: Denies easy bleeding or easy bruising EXAM Physical Exam Const Vital Signs: 08/20/22 01:24 08/20/22 02:24 Temperature 97.5 F L Temperature Source Temporal Pulse Rate 87 Respiratory Rate 15 16 Blood Pressure 155/98 H Blood Pressure Mean 117 Pulse Ox 98 Positive well nourished, well developed and obese General Appearance ED: well developed Nutritional Appearance: obese Eyes PERRL and EOMs intact bilaterally Neck supple Resp normal respiratory effort and clear to auscultation bilaterally Cardio regular rate and regular rhythm GI normal to inspection, nondistended, normoactive bowel sounds, non-tender, non- distended and no masses Auscultation: normoactive bowel sounds Palpation: soft Extremity normal to inspection Neuro oriented x3, CN's II-XII intact bilaterally and no sensory deficits noted Sensorium / Orientation: alert Psych Psych Narrative: Patient has a flat affect Skin no rashes or lesions noted MDM MDM MDM Narrative Medical decision making narrative: Patient arrived to the ER with stable vitals and did admit to alcohol use this evening. She initially told the nurse the same story about deliberately drinking alcohol and getting into her car in hopes that she would harm herself. Secondary to this a psychiatric work-up was started. Because she has a history of previous suicide attempt by overdose/ingestion I did elect to check an aspirin and Tylenol level as well as the standard psychiatric screening labs. Blood work was only positive for alcohol which correlates with her report this evening and her urine tox urine is positive for benzodiazepine but she has a prescription for Xanax. During her stay in the ER the patient then changed her story stating that she was out driving from one grocery store to another as she was going to take products to a local food bank and that she was simply pulled over because her head lights were not on and then she informed the officer that she had indeed been drinking when he asked her. She also states that he asked if she was depressed and she said yes but that this was no different than her normal symptoms. She states that the officer wanted her in the hospital because of her depression but at this time she states that there are no thoughts of harming herself or harming anyone else. Because of the change in narrative I do feel that the patient needs to be evaluated by crisis center. At this time her alcohol level is below 100 which is medically sober. The remainder of her labs show no clinically significant findings and therefore she is medically cleared from an emergency room standpoint. The patient is still pending evaluation by crisis center and therefore be signed out to the oncoming daytime physician Dr. Sparks. If crisis center feels as the patient is now medically sober and not threat to herself then she will be safe for discharge but if crisis center recommends admission that route will be followed as well History & Record Review Discussion w/independent historian: Patient Lab Data Attestation: I reviewed the patient's lab results. Labs: Laboratory Results - last 24 hr 08/20/22 08/20/22 08/20/22 01:35 01:35 01:35 WBC 6.3 RBC 5.00 Hgb 15.2 H Hct 44.4 MCV 88.8 MCH 30.4 MCHC 34.2 RDW Std Deviation 38.7 RDW Coeff of Thomas 12.0 Plt Count 300 MPV 9.5 Immature Gran % (Auto) 0.800 Neut % (Auto) 56.6 Lymph % (Auto) 33.9 [place] % (Auto) 6.5 Eos % (Auto) 1.4 Baso % (Auto) 0.8 Absolute Neuts (auto) 3.6 Absolute Lymphs (auto) 2.13 Nucleated RBC % 0 Sodium 142 Potassium 3.9 Chloride 110 H Carbon Dioxide 26.0 Anion Gap 6 BUN 11 Creatinine 0.81 Estim Creat Clear Calc 80.52 Est GFR (MDRD) Af Amer 101 Est GFR (MDRD) Non-Af 84 BUN/Creatinine Ratio 13.6 Glucose 107 H Calcium 9.2 Urine Test Salicylates < 1.7 L Urine Opiates Screen Urine Methadone Screen Acetaminophen < 2.0 L Ur Barbiturates Screen Ur Phencyclidine Scrn Ur Amphetamines Screen MDMA (Ecstasy) Screen U Benzodiazepines Scrn Urine Cocaine Screen U Cannabinoids Screen Ur Drug Screen Comment Ethyl Alcohol 158.0 08/20/22 08/20/22 08/20/22 01:58 01:58 04:30 WBC RBC Hgb Hct MCV MCH MCHC RDW Std Deviation RDW Coeff of Thomas Plt Count MPV Immature Gran % (Auto) Neut % (Auto) Lymph % (Auto) [place] % (Auto) Eos % (Auto) Baso % (Auto) Absolute Neuts (auto) Absolute Lymphs (auto) Nucleated RBC % Sodium Potassium Chloride Carbon Dioxide Anion Gap BUN Creatinine Estim Creat Clear Calc Est GFR (MDRD) Af Amer Est GFR (MDRD) Non-Af BUN/Creatinine Ratio Glucose Calcium Urine Test Negative Salicylates Urine Opiates Screen NEGATIVE Urine Methadone Screen NEGATIVE Acetaminophen Ur Barbiturates Screen NEGATIVE Ur Phencyclidine Scrn NEGATIVE Ur Amphetamines Screen NEGATIVE MDMA (Ecstasy) Screen NEGATIVE U Benzodiazepines Scrn POSITIVE H Urine Cocaine Screen NEGATIVE U Cannabinoids Screen NEGATIVE Ur Drug Screen Comment Ethyl Alcohol 87.0 Management Discussion w/another healthcare provider: Behavioral health Discharge Plan Triage Chief Complaint: Suicidal ED Provider: Ish Alvarado Dx/Rx/DC Orders Clinical Impression: Depression, Polycystic ovarian syndrome, Bipolar disorder Instructions: Depression: Tips to Help Yourself Prescriptions: No Action levetiracetam 500 MG tablet 1,000 mg PO BREAKFAST levetiracetam 500 MG tablet 1,000 mg PO QHS ferrous sulfate 325 MG tablet 1 tab PO DAILY biotin 5,000 MCG tablet,disintegrating 1 tab PO DAILY cholecalciferol (vitamin D3) 1,000 UNIT tablet 2,000 unit PO DAILY alprazolam [Xanax] 2 mg Tablet 2 mg PO BID metformin 500 mg tablet 500 mg PO BID Label Comments: Take 1 tablet by mouth 3 times daily alprazolam [Xanax] 1 mg Tablet 1 mg PO QHS citalopram [Celexa] 20 mg Tablet 30 mg PO DAILY Primary Care Provider: Care Physician,No Primary Referrals: Care Physician,No Primary [Primary Care Provider] -
--- NOTE | 2022-08-20 05:31 | ED.RN ---
CRISIS HAS BEEN NOTIFIED PATIENT NEEDS EVALUATED. CHART FAXED WELL.
--- NOTE | 2022-08-20 06:36 | NURSING ---
crisis here in room
== END 2022-08-20 07:56 | disposition home or self-care (01) ==
PROVIDERS: Emergency Provider Emergency Medicine; Visit Provider Emergency Medicine
DX: F31.9 Bipolar disorder, unspecified (principal); R45.851 Suicidal ideations; E28.2 Polycystic ovarian syndrome; E66.9 Obesity, unspecified; Z79.899 Other long term (current) drug therapy
CPT/HCPCS: 36415; 80048; 80307; 80329; 81025; 82077; 85025; 87811; 93005; 99283; G0480

== ENCOUNTER 2023-02-06 20:46 | Emergency (ER) | payer MEDICARE, MEDICAID, SELFPAY ==
[2023-02-06 20:47] VITALS: BP 205/91; PULSE 92; RESP 16; TEMP 36.6; O2SAT 100; BMI 53.1
--- NOTE | 2023-02-06 22:14 | EKG12_ITS ---
Test Reason : [facility] Blood Pressure : / mmHG Vent. Rate : 090 BPM Atrial Rate : 090 BPM P-R Int : 162 ms QRS Dur : 090 ms QT Int : 368 ms P-R-T Axes : 029 050 049 degrees QTc Int : 450 ms Normal sinus rhythm Normal ECG Confirmed by MERLY ARCE, SALOME ([id number]), desk editor MILY SHAH ([id number]) on 02/08/2023 11:02:15 AM Referred By: Confirmed By:SALOME MORELAND MD
--- NOTE | 2023-02-06 22:15 | EDS_ITS ---
HPI History of Present Illness Chief Complaint: Anxiety Informant: patient Onset/Context/Timing Onset: Today Narrative Narrative: Patient presents for evaluation secondary to frequent panic attacks since 6 PM this evening. Patient states she had what she felt like was one of her panic attacks around 6 PM and took a Xanax. She was calm for only a short time and then had another panic attack. She states she has never had her panic attacks this frequently. She states the left side of her body felt cold and she felt a pressure and pulsating sensation in her chest and throat. [facility] Medical History Anxiety and depression Epilepsy Personality, multiple PTSD (post-traumatic stress disorder) Home Medications biotin 5,000 mcg disintegrating tablet 1 tab PO DAILY mouth care 09/06/17 [History Last Taken Unknown] ferrous sulfate 325 mg (65 mg iron) tablet 1 tab PO DAILY supplement 09/06/17 [History Last Taken Unknown] cholecalciferol (vitamin D3) 25 mcg (1,000 unit) tablet 2,000 unit PO DAILY supplement 09/05/18 [History Last Taken Unknown] alprazolam 2 mg tablet (Xanax) 2 mg PO BID 07/28/20 [History Last Taken Unknown] alprazolam 1 mg tablet (Xanax) 1 mg PO QHS 10/18/21 [History Last Taken Unknown] citalopram 20 mg tablet (Celexa) 30 mg PO DAILY 10/18/21 [History Last Taken Unknown] citalopram 10 mg tablet 10 mg PO Q24H DEPRESSION 02/06/23 [History Last Taken Unknown] levetiracetam 1,000 mg tablet 1,000 mg PO BID SEIZURES 02/06/23 [History Last Taken Unknown] nystatin 100,000 unit/gram topical cream 1 applic topical DAILY RASH 02/06/23 [History Last Taken Unknown] Allergy/AdvReac Type Severity Reaction Status Date / Time phenobarbital Allergy Unknown Verified 02/06/23 20:47 propranolol Allergy Rash Verified 02/06/23 20:47 Family History Mother Heart disease Surgical History H/O dilation and curettage History of hysteroscopy partial labotomy Social History Smoking Status: Never smoker alcohol intake: current details: social substance use type: does not use caffeine: Yes what type of physical activity do you participate in: none seatbelt use: always do you feel safe at home: No additional social history: single-unemployed ROS ROS ED Constitutional Constitutional ED: Denies chills or fever(s) Eyes Eyes: Denies change in vision or discharge from eye(s) ENT ENT ED: Denies discharge from eye(s), rhinorrhea or sore throat Cardiovascular Cardiovascular: Reports chest pain and palpitations Respiratory/Chest Respiratory/Chest: Denies cough or dyspnea Gastrointestinal Gastrointestinal: Denies abdominal pain, nausea or vomiting Genitourinary Genitourinary ED: Reports other; Denies difficulty urinating or dysuria Musculoskeletal Musculoskeletal: Denies back pain or extremity pain Integumentary Denies Abrasions or rash Neurologic Neurologic: Denies headache(s) or weakness Psychiatric Psychiatric: Reports anxiety; Denies depression Allergic/Immunologic Allergic/Immunologic ED: Denies lip swelling or urticaria EXAM Physical Exam Const Vital Signs: 02/06/23 20:47 02/06/23 22:30 02/07/23 00:09 Temperature 97.8 F Temperature Source Temporal Pulse Rate 92 75 85 Respiratory Rate 16 19 H 14 Blood Pressure 205/91 H 156/80 H 160/85 H Blood Pressure Mean 129 105 110 Pulse Ox 100 100 99 Oxygen Delivery Method Room Air Positive well nourished and well developed General Appearance ED: well developed HEENT Reports moist mucous membranes Eyes EOMs intact bilaterally Chest Wall inspection of chest normal and palpation of chest normal Resp normal respiratory effort and clear to auscultation bilaterally Cardio regular rate and regular rhythm GI non-tender Palpation: soft Extremity normal to inspection Neuro oriented x3 and no sensory deficits noted Motor Exam: strength 5/5 throughout Psych mental status grossly normal MDM MDM MDM Narrative Medical decision making narrative: 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 IV line initiated. Labwork obtained to evaluate for leukocytosis, anemia, and electrolyte derangement. EKG obtained to evaluate for cardiac arrhythmia/ischemia. Chest x-ray obtained to evaluate for acute lung pathology, cardiac size, or mediastinal abnormality. Urinalysis obtained to evaluate for infection/hematuria. History & Record Review Discussion w/independent historian: Patient Additional record(s) reviewed:: Prior ED visit and Prior labs Lab Data Attestation: I reviewed the patient's lab results. Labs: Laboratory Results - last 24 hr 02/06/23 02/06/23 22:55 23:10 WBC 9.0 RBC 4.55 Hgb 14.2 Hct 40.8 MCV 89.7 MCH 31.2 MCHC 34.8 RDW Std Deviation 38.8 RDW Coeff of Thomas 11.9 Plt Count 318 MPV 9.4 Immature Gran % (Auto) 0.200 Neut % (Auto) 78.5 H Lymph % (Auto) 14.7 L Fleming % (Auto) 6.1 Eos % (Auto) 0.1 Baso % (Auto) 0.4 Absolute Neuts (auto) 7.0 Absolute Lymphs (auto) 1.32 Nucleated RBC % 0 Sodium 138 Potassium 4.7 Chloride 108 H Carbon Dioxide 28.0 Anion Gap 2 L BUN 13 Creatinine 0.88 Estim Creat Clear Calc 74.12 Est GFR (MDRD) Af Amer 92 Est GFR (MDRD) Non-Af 76 BUN/Creatinine Ratio 14.9 Glucose 113 H Calcium 9.7 Urine Color Yellow Urine Clarity Clear Urine pH 6.0 Ur Specific [place] 1.025 Urine Protein Negative Urine Glucose (UA) Normal Urine Ketones Negative Urine Occult Blood Negative Urine Nitrite Negative Urine Bilirubin Negative Urine Urobilinogen Normal Ur Leukocyte Esterase Negative Urine RBC 0 SEEN Urine WBC 0 SEEN Ur Squamous Epith Cells 0 SEEN Urine Bacteria 0 SEEN Urine Mucus 0 SEEN Radiography Chest X-Ray - ED: 1 View, Read by ED Physician, Normal, Heart, Lungs and Mediastinum Diagnostic Testing: Clinical Impression(s) from Imaging Studies Chest X-Ray 02/06/23 22:24 IMPRESSION: No acute pulmonary finding. Electronically Signed: Regis Lyman MD at 22:40 EST , EKG Initial EKG: Attestation: I personally reviewed and interpreted this EKG as follows: Interpretation: Sinus Rhythm (Sinus at 90 with no acute ischemia.) Treatment and Re-Evaluation :: CBC and chemistry studies unremarkable. Urinalysis reveals no evidence of infection. Portable chest x-ray per my interpretation reveals no acute findings. EKG is sinus with no acute ischemia. Repeat blood pressure is 157/85. Test results discussed with the patient. She is reassured with her work-up at this time and will follow with her primary care physician. Return instructions given. Discharge Plan Triage Chief Complaint: Anxiety ED Provider: Nita Duffy Dx/Rx/DC Orders Clinical Impression: Anxiety Instructions: ED Panic Attack Prescriptions: No Action ferrous sulfate 325 MG tablet 1 tab PO DAILY biotin 5,000 MCG tablet,disintegrating 1 tab PO DAILY cholecalciferol (vitamin D3) 1,000 UNIT tablet 2,000 unit PO DAILY alprazolam [Xanax] 2 mg Tablet 2 mg PO BID alprazolam [Xanax] 1 mg Tablet 1 mg PO QHS citalopram [Celexa] 20 mg Tablet 30 mg PO DAILY citalopram 10 mg tablet 10 mg PO Q24H Patient Comments: TAKE 1 TABLET BY MOUTH EVERY DAY nystatin 100,000 unit/gram cream 1 applic TOPICAL DAILY Patient Comments: APPLY TO THE AFFECTED AREA(S) ONCE DAILY levetiracetam 1,000 mg tablet 1,000 mg PO BID Patient Comments: TAKE 1 TABLET BY MOUTH TWICE DAILY Primary Care Provider: Chantel Kinsey Referrals: Chantel Kinsey, DO [Primary Care Provider] - 1-2 Weeks Care Physician,No Primary [Non-Staff] - Disposition Disposition: Home, Self Care Discharge Date/Time: 02/07/23 00:12
--- NOTE | 2023-02-06 22:24 | RAD_ITS ---
INDICATION: cp EXAMINATION/TECHNIQUE: X-RAY - XR Chest 1 View COMPARISON: Prior study dated: 02/25/2021 FINDINGS: LINES/DEVICES: None. LUNGS: The lungs are well expanded. No consolidation, edema or effusion. No pneumothorax. MEDIASTINUM AND CARDIOVASCULAR STRUCTURES: Cardiac silhouette not enlarged. Central airways and mediastinal contour are unremarkable. BONES AND SOFT TISSUES: No acute abnormality. RAD/Chest 1 View (Portable) IMPRESSION: No acute pulmonary finding. Electronically Signed: Regis Lyman MD at 22:40 EST ,
[2023-02-06 22:30] VITALS: BP 156/80; PULSE 75; RESP 19; O2SAT 100
[2023-02-06 23:07] LABS: Absolute Lymphocyte Count 1.32 X10^3/uL (0.83-4.51); Basophil# 0.04 X10^3/uL; Basophil% 0.4 % (0-1); Eosinophil# 0.01 X10^3/uL; Eosinophils% 0.1 % (0-5); Hematocrit 40.8 % (37-47); Hemoglobin 14.2 g/dL (12.0-15.0); Lymphocyte # 1.32 X10^3/ul (0.83-4.51); Lymphocyte % 14.7 % (19-41); Mean Corp Hgb Conc 34.8 g/dL (32-36); Mean Corpuscular Hgb 31.2 pg (27.0-32.0); Mean Corpuscular Volume 89.7 fL (81-99); Mean Platelet Vol. 9.4 fl (6.2-12.0); Monocyte# 0.55 X10^3/uL; Monocyte% 6.1 % (0-10); NRBC Flagged by Analyzer 0 % (0-5); Neutrophil # 7.02 X10^3/uL (2.7-7.7); Neutrophil % 78.5 % (47-70); Platelet Count 318 K/mm3 (150-450); RBC Distribution Width CV 11.9 % (11.6-14.6); RBC Distribution Width SD 38.8 fl (35.1-43.9); Red Blood Count 4.55 M/mm3 (4.2-5.4)
[2023-02-06 23:16] LABS: Bacteria 0 SEEN /hpf (None Seen); Mucous, Urine 0 SEEN /hpf (<or=2+); Red Blood Cells-Urine 0 SEEN /hpf (0-5); Squamous Epithelial Cells - UA 0 SEEN /hpf (5-10); White Blood Cells 0 SEEN /hpf (0-5)
[2023-02-06 23:22] LABS: Glucose, Dipstick Normal (Normal); Ketone-Dipstick Negative (Negative); Leukocyte Esterase-Dipstick Negative /ul (Negative); Nitrite-Dipstick Negative (Negative); Occult Blood-Urine Negative /ul (Negative); Protein-Dipstick Negative (Negative); Specific Gravity, Urine 1.025 (1.002-1.030); Urine Bilirubin Dipstick Negative (Negative); Urine Urobilinogen Normal (Normal)
[2023-02-06 23:23] LABS: Color, Urine Yellow (Yellow); Urine Clarity Clear (Clear)
[2023-02-06 23:56] LABS: Anion Gap 2 (5-15); BUN 13 mg/dL (7-18); BUN/Creat Ratio 14.9 RATIO (10-20); Calcium,Total 9.7 mg/dL (8.5-10.1); Chloride 108 mmol/L (98-107); Creatinine, Serum 0.88 mg/dL (0.55-1.02); EST Glomerular Filtration Rate 76 mL/min (>60); Est Glom Filt Rate - Afr Amer 92 mL/min (>60); Estimated Creatinine Clearance 74.12 ml/min; Glucose 113 mg/dL (74-106); Potassium 4.7 mmol/L (3.5-5.1); Sodium Level 138 mmol/L (136-145)
[2023-02-07 00:09] VITALS: BP 160/85; PULSE 85; RESP 14; O2SAT 99
== END 2023-02-07 00:12 | disposition home or self-care (01) ==
PROVIDERS: Emergency Provider Emergency Medicine; PCP Family Medicine; Visit Provider Emergency Medicine
DX: F41.9 Anxiety disorder, unspecified (principal); R07.9 Chest pain, unspecified
CPT/HCPCS: 71045; 80048; 81001; 85025; 93005; 99285; A4216

== ENCOUNTER → 2023-08-09 | Outpatient (CLI) | payer MEDICARE, SELFPAY ==
--- NOTE | 2023-08-09 | LES_PTH ---
PATIENT: JOSSE WAYNE LOC: [facility] U#:[id number] AGE/SX: 38/F ROOM: RE08/09/[address]: Peter Maya MD : 1985 BED: DIS: 08/09/2023 SPEC #: [id number] RECD: 08/09/23 14:53 STATUS: FLORENCE THOMASKg #: [id number] MAG: 08/09/23 00:[address]: Peter Maya DEPT: SURGICAL PATHOLOGY RECD BY: Jemima Youngblood Tissues: Skin of leg, NOS Procedures: Surgery Specimen Level IV HEADER OPERATION: Biopsy PRE-OP DIAGNOSIS: Benign skin lesion of right thigh TISSUE SUBMITTED: Skin lesion of right thigh MICROSCOPIC DIAGNOSIS Skin lesion of right thigh, biopsy: Verrucoid keratosis. See comment. Gustavo 08/11/2023 COMMENT Immunohistochemistry ([id number]) supports the above diagnosis. MICROSCOPIC DESCRIPTION Slides are reviewed. GROSS DESCRIPTION Received is one container labeled with the patient's name and not further designated. The specimen consists of a discoid fragment of costa skin measuring 0.6 x 0.5 x 0.2cm. The specimen is inked, bisected and totally submitted in one cassette. AM/mr 08/10/23 TC:5 CPT:53478
--- NOTE | 2023-08-09 | IMM_PTH ---
PATIENT: JOSSE WAYNE LOC: [facility] U#:[id number] AGE/SX: 38/F ROOM: RE08/09/[address]: Pteer Maya MD : 1985 BED: DIS: 08/09/2023 SPEC #: [id number] RECD: 08/11/23 12:34 STATUS: FLORENCE ANDERS #: [id number] MAG: 08/09/23 00:[address]: Peter Maya DEPT: IMMUNOHISTOCHEMISTRY RECD BY: Otto Souza Tissues: Skin of leg, NOS Procedures: CK5-6 (add) MELAN-A (initial) P40 (add) CD68 (ADD) S-100 (add) PHYSICIAN & INSTITUTION [place] [id number] SPECIMEN INFORMATION: Tissue Source: Skin lesion of right thigh Clinical Info: Benign skin lesion of right thigh Specimen Number: [id number] CPT code: 66278,[id number] METHODOLOGY: Deparaffinized sections of prefer/formalin-fixed tissue or PAP/DQ stained slides are incubated with monoclonal/polyclonal antibodies/oligonucleotide probes. Localization is made via biotin free immunoperoxidase method. Appropriate controls are performed and reacted as expected. Results on target cell population are indicated in the following table: RESULTS: ANTIBODY / CLONE RESULT Melan A (A103) negative CD68 (KP-1) negative S-100 (4C4.9) negative CK5-6 (D5 & 1684) negative P40 (BC28) negative These tests were developed and their performance characteristics determined by [facility]. They may not have been cleared or approved by the U.S. Food and Drug Administration. The FDA has determined that such clearance or approval is not necessary. The above immunohistochemical/dualISH markers are ordered and reviewed by the Pathologist. INTERPRETATION: Skin lesion of right thigh, excision: No evidence of malignancy. SHAILESH/ 08/14/23
== END | disposition home or self-care (01) ==
PROVIDERS: PCP Family Medicine; Visit Provider Family Medicine
DX: L98.9 Disorder of the skin and subcutaneous tissue, unspecified (principal)
CPT/HCPCS: 88305; 88341; 88342

== ENCOUNTER 2023-09-22 15:43 | Inpatient (IN) | payer MEDICARE, MEDICAID, SELFPAY ==
[2023-09-22] VITALS (17 sets, daily range): BP systolic 117–152; BP diastolic 72–104; PULSE 98–126; RESP 16–22; TEMP 36.1–36.8; O2SAT 90–99; BMI 59.5; BMI 55.6
--- NOTE | 2023-09-22 15:54 | EKG12_ITS ---
Test Reason : Blood Pressure : / mmHG Vent. Rate : 109 BPM Atrial Rate : 109 BPM P-R Int : 164 ms QRS Dur : 092 ms QT Int : 342 ms P-R-T Axes : 031 028 033 degrees QTc Int : 460 ms Sinus tachycardia Otherwise normal ECG Confirmed by CRISTINO ARCE, VINEET ([id number]), legal editor MILY SHAH ([id number]) on 09/27/2023 10:48:20 A M Referred By: Confirmed By:RUBÉN GREGG MD
--- NOTE | 2023-09-22 16:04 | EX.ED.VIS.PS ---
HPI HPI - Psych History of Present Illness Chief Complaint: Overdose Detail of Chief Complaint: Intentional overdose of ibuprofen, naproxen/Aleve and aspirin Informant: patient Onset/Context/Timing Onset: Today (Took these pills at approximately 11 AM today) Context: Sudden Onset Conflict: - (States she wanted to go to sleep and not wake up) Timing: Continuous Current Severity: Moderate Maximum Severity: Severe Worsened by: Situational factors and Alcohol intoxication Relieved by: Nothing Associated Symptoms Associated Symptoms - Psych: Positive for Depressed, Change in Eating, Change in sleeping, Decreased Interest and Suicidal Thoughts; Negative for Hopelessness, Easily distracted, Grandiosity, Flight of Ideas, Increased activity, Pressured Speech, Agitated, Angry, Hostile, Threatening, Confusion, Paranoia, Visual Hallucinations or Auditory Hallucinations Specific plan (suicidal thought): Patient intentionally overdosed 30 ibuprofen tablets, 90+ naproxen tablets Narrative Narrative: Patient is a 38-year-old female. She has history of anxiety/depression as well as bipolar affective disorder. She was seen February 06, 2023 for anxiety. She was seen August 2022 with intent of harming herself. After she was evaluated by crisis it was felt that she could be sent home with a safety plan.Patient was seen in October 2021 for anxiety. She had suicide attempt October 2021 approximately 3 weeks prior to the anxiety visit. Prior similar symptoms: Yes Recent Illness/Hospitalization: No [facility], [facility] Medical History Personality, multiple Epilepsy PTSD (post-traumatic stress disorder) Anxiety and depression Home Medications ?Medication ?Instructions ?Recorded ?Last Taken ?Type biotin 5,000 mcg disintegrating 1 tab PO DAILY mouth care 09/06/17 Unknown History tablet ferrous sulfate 325 mg (65 mg 1 tab PO DAILY supplement 09/06/17 Unknown History iron) tablet cholecalciferol (vitamin D3) 25 2,000 unit PO DAILY supplement 09/05/18 Unknown History mcg (1,000 unit) tablet alprazolam 2 mg tablet (Xanax) 2 mg PO BID 07/28/20 Unknown History alprazolam 1 mg tablet (Xanax) 1 mg PO QHS 10/18/21 Unknown History citalopram 20 mg tablet (Celexa) 30 mg PO DAILY 10/18/21 Unknown History citalopram 10 mg tablet 10 mg PO Q24H DEPRESSION 02/06/23 Unknown History levetiracetam 1,000 mg tablet 1,000 mg PO BID SEIZURES 02/06/23 Unknown History nystatin 100,000 unit/gram topical 1 applic topical DAILY RASH 02/06/23 Unknown History cream Allergy/AdvReac Type Severity Reaction Status Date / Time phenobarbital Allergy Unknown Verified 09/22/23 15:48 propranolol Allergy Rash Verified 09/22/23 15:48 Family History Mother Heart disease Surgical History H/O dilation and curettage History of hysteroscopy partial labotomy Social History Smoking Status: Never smoker alcohol intake: current details: social substance use type: does not use caffeine: Yes what type of physical activity do you participate in: none seatbelt use: always do you feel safe at home: No additional social history: single-unemployed ROS ROS ED Constitutional Constitutional ED: Reports sweats; Denies chills, fever(s) or subjective Eyes Eyes: Denies blurry vision or change in vision ENT ENT ED: Reports other Details: Patient does endorse ringing or ears. ; Denies ear pain, rhinorrhea or sore throat Cardiovascular Cardiovascular: Reports chest pain and racing heartbeat; Denies palpitations Respiratory/Chest Respiratory/Chest: Denies cough, dyspnea or dyspnea on exertion Gastrointestinal Gastrointestinal: Reports nausea; Denies abdominal pain, constipation, diarrhea, melena or vomiting Genitourinary Genitourinary ED: Reports LMP (females 10-50) Details: Comment: (Presently); Denies dysuria, hematuria or urinary frequency Musculoskeletal Musculoskeletal: Denies arthralgias, back pain or myalgias Integumentary Denies rash Neurologic Neurologic: Reports paresthesias; Denies headache(s) or weakness Psychiatric Psychiatric: Reports anxiety, depression, suicidal ideation and suicidal thoughts Hematologic/Lymphatic Hematologic/Lymphatic: Denies easy bleeding or easy bruising Allergic/Immunologic Allergic/Immunologic ED: Denies mouth swelling or tongue swelling EXAM Physical Exam Const Vital Signs: 09/22/23 15:44 09/22/23 16:55 09/22/23 17:00 Temperature 97.7 F L Temperature Source Temporal Pulse Rate 126 H 113 H 113 H Respiratory Rate 16 17 22 H Blood Pressure 152/99 H 138/84 H 131/73 H Blood Pressure Mean 116 99 90 Pulse Ox 96 94 94 Oxygen Delivery Method Room Air Positive well nourished and well developed Constitutional Narrative: BMI is 59.6. Vitals are remarkable for tachycardia. She is slightly diaphoretic. Her affect is depressed. General Appearance ED: well developed HEENT Denies moist mucous membranes normocephalic and atraumatic Eyes PERRL and EOMs intact bilaterally General Eye ED: Negative for pale conjunctiva or scleral icterus Neck no lymphadenopathy, supple and no JVD Resp normal respiratory effort and clear to auscultation bilaterally Cardio S1 normal heart sound, S2 normal heart sound and no murmurs Rate: tachycardic Rhythm: Negative for regular rhythm GI non-tender, non-distended and no masses Back/Spine no CVA tenderness General Back: Negative for CVA tenderness Cervical Spine: Negative for cervical spine tenderness Thoracic Spine / Upper Back: Negative for thoracic spinal tenderness Lumbar Spine / Lower Back: Negative for lumbar spinal tenderness Extremity normal to inspection Neuro oriented x3 and CN's II-XII intact bilaterally [place] Coma Scale: document GCS findings Spontaneous Obeys Commands Oriented 15 Sensorium / Orientation: Negative for alert Psych Appearance: Negative for grossly normal Attitude: calm Activity / Motor Behavior: psychomotor slowing Speech: slow and soft Mood & Affect: depressed, sad and flat affect Thought Process: normal thought process Attention / Concentration: attention grossly intact and concentration grossly intact Memory / Cognition: memory grossly intact Insight: poor Judgement: poor Skin Skin Narrative: Patient is slightly diaphoretic. MDM MDM MDM Narrative Medical decision making narrative: Patient complaining of ringing or ears this may represent aspirin toxicity. Will obtain aspirin level. There is no level for ibuprofen or naproxen. Will obtain baseline electrolyte panel to assess renal function. She was placed on the monitor since she is tachycardic and an EKG was obtained. She will require admission based on the amount of medication she took. Once laboratory studies are back we will contact hospitalist for admission to ICU. Patient was treated with activated charcoal. Lab Data Attestation: I reviewed the patient's lab results. Lab results narrative: CBC is unremarkable. Comprehensive metabolic panel reveals a CO2 of 19 with an anion gap of 11. BUN and creatinine are normal. AST and ALT are elevated at 57 and 77 respectively. test is negative. Labs: Laboratory Results - last 24 hr 09/22/23 09/22/23 16:06 16:21 WBC 10.6 RBC 4.59 Hgb 13.7 Hct 39.3 MCV 85.6 MCH 29.8 MCHC 34.9 RDW Std Deviation 38.2 RDW Coeff of Thomas 12.4 Plt Count 300 MPV 10.0 Immature Gran % (Auto) 0.600 Neut % (Auto) 75.4 H Lymph % (Auto) 16.7 L Major % (Auto) 6.4 Eos % (Auto) 0.4 Baso % (Auto) 0.5 Absolute Neuts (auto) 8.0 H Absolute Lymphs (auto) 1.77 Nucleated RBC % 0 Sodium 136 Potassium 3.4 L Chloride 106 Carbon Dioxide 19.0 L Anion Gap 11 BUN 15 Creatinine 0.96 Estim Creat Clear Calc 117.83 Est GFR (MDRD) Af Amer 82 Est GFR (MDRD) Non-Af 68 BUN/Creatinine Ratio 15.6 Glucose 118 H Calcium 9.3 Total Bilirubin 1.20 H AST 57 H ALT 77 H Alkaline Phosphatase 76 Total Protein 7.4 Albumin 4.0 Globulin 3.4 Albumin/Globulin Ratio 1.2 Serum , Qual NEGATIVE Salicylates < 1.7 L Urine Opiates Screen NEGATIVE Urine Methadone Screen NEGATIVE Acetaminophen < 2.0 L Ur Barbiturates Screen NEGATIVE Ur Phencyclidine Scrn NEGATIVE Ur Amphetamines Screen NEGATIVE MDMA (Ecstasy) Screen NEGATIVE U Benzodiazepines Scrn POSITIVE H Urine Cocaine Screen NEGATIVE U Cannabinoids Screen POSITIVE H Ur Drug Screen Comment Ethyl Alcohol < 3.0 Talk screen is positive for benzos. Patient is on Xanax. She also is positive for cannabinoids. She does admit to marijuana use. Alcohol was negative. Salicylate was less than 1.7. Acetaminophen was less than 2.0. ABG Data Attestation: I personally reviewed and interpreted this ABG as follows: Interpretation: VBG reveals no acid-base disturbance. pH is 7.45. Bicarb is 20 which is slightly low. Total CO2 is 21. Base excess is -4. The electrolyte panel revealed a CO2 of 19 with a normal anion gap of 11. ABG results: ABG 09/22/23 16:21 Specimen Type BENITA Sample Site Not entered VBG pH 7.45 H VBG pO2 90 H VBG HCO3 20 L VBG Total CO2 21 L VBG O2 Sat (Calc) 98 H VBG Base Excess -4 L POC Mix VBG pCO2 Pt Tmp 29.2 L O2 Delivery Device Room Air EKG Initial EKG: Attestation: I personally reviewed and interpreted this EKG as follows: Interpretation: Sinus Tachycardia (Sinus tachycardia 109. The EKG is otherwise normal. ME interval is under 64 ms. Cures duration 92 ms. QT duration 3042 ms. [place]alante is normal.) Treatment and Re-Evaluation Narrative: A pink slip was filled out since she will need to be admitted here. Was made out for the clinical officer at [facility]. She will need to be observed. The licensed veterinary technician from [facility] was made aware and will see her tomorrow. [facility] slip is valid for 24 hours since we do not have a a psychiatric unit at the hospital. I was just informed by the charge nurse that we have no ICU beds. Patient will require transfer. Patient was ordered 50 g of activated charcoal. She apparently vomited shortly after drinking the activated charcoal. She still feels nauseous. Zofran was entered to control her nausea. Critical Care Time Critical Care Time: Yes Critical care time (excluding procedures): 30-74 minutes (33), Including time spent: (History, physical, documentation, initiation of treatment for intentional overdose, review of prior ER and hospital records, independent interpretation of laboratory results), Discussing w/Patient &/or Family/Crusher, Discussing w/Consultants, Arranging Admission or Transfer and - (Completion of 72-hour hold/pink slipped for psychiatric admission. Discussion with bukc social economist from [facility] for placement) Discharge Plan Triage Chief Complaint: Overdose Other Complaint: Suicidal ED Provider: Sabas Patel Dx/Rx/DC Orders Clinical Impression: Intentional aspirin overdose, Hirsutism, Morbid obesity, Depression with suicidal ideation, Polycystic ovarian syndrome, Intentional overdose of nonsteroidal anti-inflammatory drug (NSAID), Sinus tachycardia seen on hay farmer, Hypertension Prescriptions: No Action ferrous sulfate 325 MG tablet 1 tab PO DAILY biotin 5,000 MCG tablet,disintegrating 1 tab PO DAILY cholecalciferol (vitamin D3) 1,000 UNIT tablet 2,000 unit PO DAILY alprazolam [Xanax] 2 mg Tablet 2 mg PO BID alprazolam [Xanax] 1 mg Tablet 1 mg PO QHS citalopram [Celexa] 20 mg Tablet 30 mg PO DAILY citalopram 10 mg tablet 10 mg PO Q24H Patient Comments: TAKE 1 TABLET BY MOUTH EVERY DAY nystatin 100,000 unit/gram cream 1 applic TOPICAL DAILY Patient Comments: APPLY TO THE AFFECTED AREA(S) ONCE DAILY levetiracetam 1,000 mg tablet 1,000 mg PO BID Patient Comments: TAKE 1 TABLET BY MOUTH TWICE DAILY Primary Care Provider: Peter Maya Referrals: Peter Maay MD [Primary Care Provider] - Print Language: Estonian Disposition Disposition: Acute Care Hospital [facility]
[2023-09-22] MEDS: Activated Charcoal/Sorbitol 50 GM/240 ML BOT PO (16:23)
[2023-09-22 16:24] LABS: Blood Gas Specimen Type VEN; O2 Delivery Device Room Air; SITE Not entered; VBG BASE EXCESS -4 mmol/L (-1.0-3.5); VBG Bicarbonate 20 mmol/L (22-26); VBG PO2 90 mmHg (25-40); VBG SO2 98 % (50-70); VBG TCO2 21 mmol/L (23-33); VBG pCO2 29.2 mmHg (41-51); VBG pH 7.45 (7.32-7.42)
[2023-09-22 16:32] LABS: Absolute Lymphocyte Count 1.77 X10^3/uL (0.83-4.51); Basophil# 0.05 X10^3/uL; Basophil% 0.5 % (0-1); Eosinophil# 0.04 X10^3/uL; Eosinophils% 0.4 % (0-5); Hematocrit 39.3 % (37-47); Hemoglobin 13.7 g/dL (12.0-15.0); Lymphocyte # 1.77 X10^3/ul (0.83-4.51); Lymphocyte % 16.7 % (19-41); Mean Corp Hgb Conc 34.9 g/dL (32-36); Mean Corpuscular Hgb 29.8 pg (27.0-32.0); Mean Corpuscular Volume 85.6 fL (81-99); Monocyte# 0.68 X10^3/uL; Monocyte% 6.4 % (0-10); NRBC Flagged by Analyzer 0 % (0-5); Neutrophil # 8.01 X10^3/uL (2.7-7.7); Neutrophil % 75.4 % (47-70); Platelet Count 300 K/mm3 (150-450); RBC Distribution Width CV 12.4 % (11.6-14.6); RBC Distribution Width SD 38.2 fl (35.1-43.9); Red Blood Count 4.59 M/mm3 (4.2-5.4); White Blood Count 10.6 K/mm3 (4.4-11.0)
--- NOTE | 2023-09-22 16:33 | ED.RN ---
pt vomited as soon as she finished drinking the activated charcoal. dr godinez notified.
[2023-09-22] MEDS: Ondansetron 4 MG/2 ML Vial IV (16:36)
[2023-09-22 16:37] LABS: ALB/GLOB Ratio 1.2 RATIO (0.9-2.4); AST(SGOT) 57 U/L (15-37); Alanine Aminotransfer ALT/SGPT 77 U/L (13-56); Alkaline Phosphatase 76 U/L (45-117); Anion Gap 11 (5-15); BUN 15 mg/dL (7-18); BUN/Creat Ratio 15.6 RATIO (10-20); Calcium,Total 9.3 mg/dL (8.5-10.1); Chloride 106 mmol/L (98-107); Creatinine, Serum 0.96 mg/dL (0.55-1.02); EST Glomerular Filtration Rate 68 mL/min (>60); Est Glom Filt Rate - Afr Amer 82 mL/min (>60); Estimated Creatinine Clearance 117.83 ml/min; Globulin 3.4 g/dL (2.2-4.2); Glucose 118 mg/dL (74-106); Potassium 3.4 mmol/L (3.5-5.1); Protein, Total 7.4 g/dL (6.4-8.2); Sodium Level 136 mmol/L (136-145)
[2023-09-22 16:38] LABS: Internal QC Validated? YES +Cl - CLEAR BKGD; Pregnancy, Serum, hCG Quali. NEGATIVE Negative
[2023-09-22 16:43] LABS: Acetaminophen (Tylenol) Level < 2.0 ug/mL (10.0-30.0); Alcohol, Blood (Medical)-Serum < 3.0 mg/dL; Salicylate < 1.7 mg/dL (2.8-20.0)
[2023-09-22 17:04] LABS: Amphetamine Urine VISTA NEGATIVE (<1000 ng/mL); Barbiturate Urine VISTA NEGATIVE (< 200 ng/mL); Benzodiazepine Urine VISTA POSITIVE (< 200 ng/mL); Cocaine Urine VISTA NEGATIVE (< 300 ng/mL); Ecstacy Urine VISTA NEGATIVE (< 500 ng/mL); Methadone Urine VISTA NEGATIVE (< 300 ng/mL); PCP Urine VISTA NEGATIVE (< 25 ng/mL); THC Urine VISTA POSITIVE (< 50 ng/mL); Vista UDS pH Range 5
--- NOTE | 2023-09-22 17:22 | HP.PCM.HOS_ITS ---
[facility] - General General Date of Admission: 09/22/23 Date of Service: 09/22/23 Chief Complaint: Drug overdose multiple medications. HPI Narrative JOSSE WAYNE, is a 38 F who has history of severe depression with multiple suicidal attempts in the past and hospitalization even on life support came to ER after she took multiple medications. She does not know the exact amount but estimated that she took aspirin 325 mg about 100 tablets, Motrin about 40 tablets, Aleve 150 tablets. She took these pills around 11 AM today. She said she she is very depressed and she took it as suicidal attempt wanted to go to sleep and not wake up. Patient is complaining of tinnitus mainly right ear but no nausea vomiting chest pain shortness of breath or blurry vision. Prior to that she had multiple ED visits, as seen on 04/08/2022 for anxiety. August 2022?she had intent of harming herself. She was admitted in November 2019 for overdose with amitriptyline. She further said she had 15-20 suicidal attempts in the past. She was on life support 6-10 times between 2015 and 2022. She also has a history of personality disorder, epilepsy, PTSD, bipolar disorder with depression, schizoaffective disorder. She had right temporal lobectomy [facility] for seizure and she takes Keppra and alprazolam. She said she she takes aripiprazole but is not showing in her home medication. Patient was given charcoal in the ED. Patient is pink slipped Vitals, labs and EKG reviewed discussion assessment and plan. [facility] Medical History Personality, multiple Epilepsy PTSD (post-traumatic stress disorder) Anxiety and depression Home Medications ?Medication ?Instructions ?Recorded ?Last Taken ?Type biotin 5,000 mcg disintegrating 1 tab PO DAILY mouth care 09/06/17 Unknown History tablet cholecalciferol (vitamin D3) 25 2,000 unit PO DAILY supplement 09/05/18 Unknown History mcg (1,000 unit) tablet alprazolam 2 mg tablet (Xanax) 2 mg PO BID anxiety 07/28/20 Unknown History alprazolam 1 mg tablet (Xanax) 1 mg PO QHS anxiety 10/18/21 Unknown History citalopram 20 mg tablet (Celexa) 20 mg PO DAILY depression 08/08/22 Unknown History citalopram 10 mg tablet 10 mg PO Q24H DEPRESSION 02/06/23 Unknown History levetiracetam 1,000 mg tablet 1,000 mg PO BID SEIZURES 02/06/23 Unknown History Allergy/AdvReac Type Severity Reaction Status Date / Time phenobarbital Allergy Unknown Verified 09/22/23 18:09 propranolol Allergy Rash Verified 09/22/23 18:09 hydralazine AdvReac Mild confusion Verified 09/22/23 18:09 Family History Mother Heart disease Surgical History H/O dilation and curettage History of hysteroscopy partial labotomy Social History Smoking Status: Never smoker alcohol intake: current details: social substance use type: does not use caffeine: Yes what type of physical activity do you participate in: none seatbelt use: always do you feel safe at home: No additional social history: single-unemployed ROS ROS Narrative Constitutional: Depressed lobe. Reports fatigue and weakness. No fever. HEENT: Reports systems reviewed and no addt'l complaints, except as documented Respiratory/Chest: No acute shortness of breath or respiratory distress or wheezing. CVS: No chest pain pressure or tightness Gastrointestinal: Denies coffee ground emesis, hematemesis or vomiting Genitourinary: Denies burning urination or new urinary tract symptoms Musculoskeletal: Denies acute joint pain or limited range of motion. No acute injury Neurologic: Denies seizure-like symptoms. Last seizure was in 2013. skin: No ulcer. No rash Endocrinology: Reports systems reviewed and no addt'l complaints, except as documented Hematologic/Lymphatic: Reports systems reviewed and no addt'l complaints, except as documented Rest 14 ROS are negative except as mentioned in HPI Vital Signs Vital Signs Vital Signs: 09/22/23 15:44 09/22/23 16:55 09/22/23 17:00 Temperature 97.7 F L Temperature Source Temporal Pulse Rate 126 H 113 H 113 H Respiratory Rate 16 17 22 H Blood Pressure 152/99 H 138/84 H 131/73 H Blood Pressure Mean 116 99 90 Pulse Ox 96 94 94 Oxygen Delivery Method Room Air Weight Weight: 347 lb 3.2 oz Body Mass Index (BMI) 59.5 Physical Exam Narrative General: Alert, Oriented x3, Cooperative. Morbid obesity BMI 59.6 kg/m?. Sitter on the bedside. HEENT: Atraumatic, PERRLA, EOMI, Normocephalic Oral: Oral mucosa dry. Black coated tongue from charcoal. No Gingival or Mucosal Lesions/ Ulcerations Neck: Supple, No JVD, Negative Carotid Bruits Chest wall/Lungs: Air entry diminished in bilateral lung bases. No crepitation/rhonchi Cardiovascular: Sinus tachycardia, Normal S1, Normal S2, No M/G/R Abdomen: Bowel Sounds Present, Soft, Non Tender, Non-Distended : No dysuria. No renal angle tenderness. No suprapubic tenderness. Extremities: No edema, Capillary Refill Less than 3 Seconds Skin: No rashes, No breakdown Musculoskeletal: No Tenderness to Palpation of Joints or Extremities Neurological: Cranial nerves II-XII grossly intact, DTR 2+/4. No acute focal neurological deficit. Psych/Mental Status: Flat affect, depressed. Results Lab / Micro Data 09/22/23 16:06 09/22/23 16:06 Labs: Laboratory Results - last 24 hr 09/22/23 16:06: WBC 10.6, RBC 4.59, Hgb 13.7, Hct 39.3, MCV 85.6, MCH 29.8, MCHC 34.9, RDW Std Deviation 38.2, RDW Coeff of Thomas 12.4, Plt Count 300, MPV 10.0, Immature Gran % (Auto) 0.600, Neut % (Auto) 75.4 H, Lymph % (Auto) 16.7 L, [place] % (Auto) 6.4, Eos % (Auto) 0.4, Baso % (Auto) 0.5, Absolute Neuts (auto) 8.0 H, Absolute Lymphs (auto) 1.77, Nucleated RBC % 0, Sodium 136, Potassium 3.4 L, Chloride 106, Carbon Dioxide 19.0 L, Anion Gap 11, BUN 15, Creatinine 0.96, Estim Creat Clear Calc 117.83, Est GFR (MDRD) Af Amer 82, Est GFR (MDRD) Non-Af 68, BUN/Creatinine Ratio 15.6, Glucose 118 H, Calcium 9.3, Total Bilirubin 1.20 H, AST 57 H, ALT 77 H, Alkaline Phosphatase 76, Total Protein 7.4, Albumin 4.0, Globulin 3.4, Albumin/Globulin Ratio 1.2, Serum , Qual NEGATIVE, S alicylates < 1.7 L, Acetaminophen < 2.0 L, Ethyl Alcohol < 3.0 09/22/23 16:21: Urine Opiates Screen NEGATIVE, Urine Methadone Screen NEGATIVE, Ur Barbiturates Screen NEGATIVE, Ur Phencyclidine Scrn NEGATIVE, Ur Amphetamines Screen NEGATIVE, MDMA (Ecstasy) Screen NEGATIVE, U Benzodiazepines Scrn POSITIVE H, Urine Cocaine Screen NEGATIVE, U Cannabinoids Screen POSITIVE H, Ur Drug Screen Comment ABG Data ABG results: ABG 09/22/23 16:21 Specimen Type BENITA Sample Site Not entered VBG pH 7.45 H VBG pO2 90 H VBG HCO3 20 L VBG Total CO2 21 L VBG O2 Sat (Calc) 98 H VBG Base Excess -4 L POC Mix VBG pCO2 Pt Tmp 29.2 L O2 Delivery Device Room Air Assessment & Plan Assessment/Plan (1) Intentional overdose of nonsteroidal anti-inflammatory drug (NSAID): (2) Suicide attempt: PLAN: Plan This is 38-year-old female came to ED after she overdosed with multiple medications including ibuprofen, aspirin and Aleve. Patient is pink slipped in the ED 1. Drug overdose with multiple medications: Patient is being admitted in PCU. Twelve-lead EKG is sinus tachycardia 109 beats per 1, QTc 460 ms, OK interval 164 ms QRS 402 ms. Patient is having tinnitus. Patient had charcoal treatment in the ED. IV fluid normal saline for Saline diuresis. Monitor intake and output and on awake overnight monitor. GCS 15. Monitor EKG daily for next 3 days. U tox positive for benzodiazepine, cannabinoids. 2. Mixed acid-base abnormality due to aspirin: Although ABG would have been ideal but VBG was done in ED. VBG 7.45/mixed venous pCO2 29.2 bicarb on BMP 19, anion gap 11. It is suggestive of normal anion gap metabolic acidosis with uncompensated respiratory alkalosis. 3. Electrolyte abnormality, hypokalemia: Sodium 136, potassium 3.4. Serum magnesium and phosphorus ordered. 4. Acute liver injury most likely due to drug-induced liver injury: ALT and AST are elevated. Total bilirubin 1.2. Alkaline phosphatase normal. Serum albumin 4.0. PT/INR ordered. Multiple psychiatric comorbidities: Patient has severe anxiety disorder and bipolar with severe depression with suicidal attempt, schizoaffective disorder, PTSD and multiple personality disorders: Crisis management evaluation after she is medically stable. Hamer slip. He will Cetraben at the bedside 5. Chronic seizure status post right temporal lobectomy: Patient on Keppra continued. 6. DVT prophylaxis: Lovenox 40 mg subcu daily. DVT prophylax Living will/advanced directive/end of life care: Patient does not have living will or advanced directive. She lives alone and does not have any power of deputy commonwealth's attorney for health. When asked about life support measures she said she wants to be DNR CC arrest but since she is depressed and not in the right frame of mind or has decision capacity therefore we will put full code Total time spent in [id number] encounter in discussion of advanced directive 17 minutes. Laboratory Results 09/22/23 16:06: WBC 10.6, RBC 4.59, Hgb 13.7, Hct 39.3, MCV 85.6, MCH 29.8, MCHC 34.9, RDW Std Deviation 38.2, RDW Coeff of Thomas 12.4, Plt Count 300, MPV 10.0, Immature Gran % (Auto) 0.600, Neut % (Auto) 75.4 H, Lymph % (Auto) 16.7 L, [place] % (Auto) 6.4, Eos % (Auto) 0.4, Baso % (Auto) 0.5, Absolute Neuts (auto) 8.0 H, Absolute Lymphs (auto) 1.77, Nucleated RBC % 0, Sodium 136, Potassium 3.4 L, Chloride 106, Carbon Dioxide 19.0 L, Anion Gap 11, BUN 15, Creatinine 0.96, Estim Creat Clear Calc 117.83, Est GFR (MDRD) Af Amer 82, Est GFR (MDRD) Non-Af 68, BUN/Creatinine Ratio 15.6, Glucose 118 H, Calcium 9.3, Total Bilirubin 1.20 H, AST 57 H, ALT 77 H, Alkaline Phosphatase 76, Total Protein 7.4, Albumin 4.0, Globulin 3.4, Albumin/Globulin Ratio 1.2, Serum , Qual NEGATIVE, Salicylates < 1.7 L, Acetaminophen < 2.0 L, Ethyl Alcohol < 3.0 09/22/23 16:21: Specimen Type BENITA, Sample Site Not entered, VBG pH 7.45 H, VBG pO2 90 H, VBG HCO3 20 L, VBG Total CO2 21 L, VBG O2 Sat (Calc) 98 H, VBG Base Excess -4 L, POC Mix VBG pCO2 Pt Tmp 29.2 L, O2 Delivery Device Room Air, Urine Opiates Screen NEGATIVE, Urine Methadone Screen NEGATIVE, Ur Barbiturates Screen NEGATIVE, Ur Phencyclidine Scrn NEGATIVE, Ur Amphetamines Screen NEGATIVE, MDMA (Ecstasy) Screen NEGATIVE, U Benzodiazepines Scrn POSITIVE H, Urine Cocaine Screen NEGATIVE, U Cannabinoids Screen POSITIVE H, Ur Drug Screen Comment Charges/Coding Visit Charges Inpatient E&M: 23291 Init Hosp L3 Procedures Hospitalists Procedures: 93802 Advncd Care Plan 30 Min
[2023-09-22 20:35] LABS: International Normalized Ratio 1.2; Prothrombin Time (Protime)PT. 15.6 SECONDS (11.7-14.9)
[2023-09-22] MEDS: levETIRAcetam 1,000 MG Tablet 1000 MG PO (21:42)
[2023-09-22] MEDS: 0.9% Saline Lock 10 ML Syringe IV (21:42)
[2023-09-22] MEDS: ALPRAZolam 0.5 MG Tablet PO (21:47)
[2023-09-23 03:16] VITALS: BP 123/85; PULSE 82; RESP 18; TEMP 36.4; O2SAT 100
[2023-09-23 05:55] LABS: Absolute Lymphocyte Count 1.45 X10^3/uL (0.83-4.51); Absolute Neutrophil Count 7.5 X10^3/uL (2.0-7.7); Basophil# 0.06 X10^3/uL; Basophil% 0.6 % (0-1); Eosinophil# 0.12 X10^3/uL; Eosinophils% 1.2 % (0-5); Hematocrit 39.3 % (37-47); Hemoglobin 13.2 g/dL (12.0-15.0); Lymphocyte # 1.45 X10^3/ul (0.83-4.51); Lymphocyte % 14.4 % (19-41); Mean Corp Hgb Conc 33.6 g/dL (32-36); Mean Corpuscular Hgb 29.9 pg (27.0-32.0); Mean Corpuscular Volume 89.1 fL (81-99); Mean Platelet Vol. 9.9 fl (6.2-12.0); Monocyte# 0.86 X10^3/uL; Monocyte% 8.6 % (0-10); NRBC Flagged by Analyzer 0 % (0-5); Neutrophil % 74.7 % (47-70); Platelet Count 260 K/mm3 (150-450); RBC Distribution Width CV 12.7 % (11.6-14.6); RBC Distribution Width SD 41.5 fl (35.1-43.9); Red Blood Count 4.41 M/mm3 (4.2-5.4)
[2023-09-23 06:42] LABS: ALB/GLOB Ratio 1.1 RATIO (0.9-2.4); AST(SGOT) 41 U/L (15-37); Alanine Aminotransfer ALT/SGPT 61 U/L (13-56); Albumin, Serum 3.3 g/dL (3.2-5.0); Alkaline Phosphatase 65 U/L (45-117); Anion Gap 9 (5-15); BUN 17 mg/dL (7-18); BUN/Creat Ratio 17.2 RATIO (10-20); Calcium,Total 8.7 mg/dL (8.5-10.1); Chloride 107 mmol/L (98-107); Creatinine, Serum 0.99 mg/dL (0.55-1.02); EST Glomerular Filtration Rate 66 mL/min (>60); Est Glom Filt Rate - Afr Amer 80 mL/min (>60); Globulin 3.1 g/dL (2.2-4.2); Glucose 118 mg/dL (74-106); Potassium 3.8 mmol/L (3.5-5.1); Protein, Total 6.4 g/dL (6.4-8.2); Sodium Level 138 mmol/L (136-145)
[2023-09-23 06:51] LABS: Acetaminophen (Tylenol) Level < 3.0 ug/mL (10.0-30.0); Salicylate < 1.7 mg/dL (2.8-20.0)
[2023-09-23 08:41] VITALS: BP 122/87; PULSE 75; RESP 16; TEMP 36.8; O2SAT 97
[2023-09-23] MEDS: levETIRAcetam 1,000 MG Tablet 1000 MG PO (08:50)
[2023-09-23 15:18] VITALS: BP 135/79; PULSE 84; RESP 14; TEMP 37; O2SAT 97
--- NOTE | 2023-09-23 15:29 | PN.HOSP_ITS ---
Reason for Visit Reason for Visit: Diagnoses Suicide attempt, initial encounter (09/22/23) Poisoning by other nonsteroidal anti-inflammatory drugs [NSAID], intentional self-harm, initial encounter (09/22/23) Subjective Subjective Patient was seen and examined today, she does not appear to be in any distress. I have elected to have crisis see the patient today and arrange for placement in a psych facility for further care. Objective Data Objective Data Vital Signs: Vital Signs Temp Pulse Resp BP Pulse Ox O2 Del Method 98.6 F 84 14 135/79 H 97 Room Air 09/23/23 15:18 09/23/23 15:18 09/23/23 15:18 09/23/23 15:18 09/23/23 15:18 09/23/23 15:18 Oxygen Delivery Method Room Air Weight: 147.1 kg Body Mass Index (BMI) 55.6 Intake & Output: Intake and Output for Last 24 Hours 09/21/23 09/22/23 09/23/23 23:59 23:59 23:59 Intake Total 500 / 500 1150 / 1150 Balance 500 / 500 1150 / 1150 Lab / Micro Data 09/23/23 05:36 09/23/23 05:36 Labs: Laboratory Results - last 24 hr 09/22/23 16:06: WBC 10.6, RBC 4.59, Hgb 13.7, Hct 39.3, MCV 85.6, MCH 29.8, MCHC 34.9, RDW Std Deviation 38.2, RDW Coeff of Thomas 12.4, Plt Count 300, MPV 10.0, Immature Gran % (Auto) 0.600, Neut % (Auto) 75.4 H, Lymph % (Auto) 16.7 L, [place] % (Auto) 6.4, Eos % (Auto) 0.4, Baso % (Auto) 0.5, Absolute Neuts (auto) 8.0 H, Absolute Lymphs (auto) 1.77, Nucleated RBC % 0, Sodium 136, Potassium 3.4 L, Chloride 106, Carbon Dioxide 19.0 L, Anion Gap 11, BUN 15, Creatinine 0.96, Estim Creat Clear Calc 117.83, Est GFR (MDRD) Af Amer 82, Est GFR (MDRD) Non-Af 68, BUN/Creatinine Ratio 15.6, Glucose 118 H, Calcium 9.3, Total Bilirubin 1.20 H, AST 57 H, ALT 77 H, Alkaline Phosphatase 76, Total Protein 7.4, Albumin 4.0, Globulin 3.4, Albumin/Globulin Ratio 1.2, Serum , Qual NEGATIVE, S alicylates < 1.7 L, Acetaminophen < 2.0 L, Ethyl Alcohol < 3.0 09/22/23 16:21: Urine Opiates Screen NEGATIVE, Urine Methadone Screen NEGATIVE, Ur Barbiturates Screen NEGATIVE, Ur Phencyclidine Scrn NEGATIVE, Ur Amphetamines Screen NEGATIVE, MDMA (Ecstasy) Screen NEGATIVE, U Benzodiazepines Scrn POSITIVE H, Urine Cocaine Screen NEGATIVE, U Cannabinoids Screen POSITIVE H, Ur Drug Screen Comment 09/22/23 20:12: PT 15.6 H, INR 1.2 09/23/23 05:36: WBC 10.0, RBC 4.41, Hgb 13.2, Hct 39.3, MCV 89.1, MCH 29.9, MCHC 33.6, RDW Std Deviation 41.5, RDW Coeff of Thomas 12.7, Plt Count 260, MPV 9.9, Immature Gran % (Auto) 0.500, Neut % (Auto) 74.7 H, Lymph % (Auto) 14.4 L, [place] % (Auto) 8.6, Eos % (Auto) 1.2, Baso % (Auto) 0.6, Absolute Neuts (auto) 7.5, Absolute Lymphs (auto) 1.45, Nucleated RBC % 0, Sodium 138, Potassium 3.8, Chloride 107, Carbon Dioxide 22.0, Anion Gap 9, BUN 17, Creatinine 0.99, Estim Creat Clear Calc 109.30, Est GFR (MDRD) Af Amer 80, Est GFR (MDRD) Non-Af 66, BUN/Creatinine Ratio 17.2, Glucose 118 H, Calcium 8.7, Total Bilirubin 0.90, AST 41 H, ALT 61 H, Alkaline Phosphatase 65, Total Protein 6.4, Albumin 3.3, Globulin 3.1, Albumin/Globulin Ratio 1.1, Salicylates < 1.7 L, Acetaminophen < 3.0 L ABG Data ABG results: ABG 09/22/23 16:21 Specimen Type BENITA Sample Site Not entered VBG pH 7.45 H VBG pO2 90 H VBG HCO3 20 L VBG Total CO2 21 L VBG O2 Sat (Calc) 98 H VBG Base Excess -4 L POC Mix VBG pCO2 Pt Tmp 29.2 L O2 Delivery Device Room Air Physical Exam Const alert, oriented x3 and no apparent distress Constitutional Narrative: Patient is morbidly obese General Appearance: cooperative, well kempt and well developed Orientation / Consciousness: awake, oriented to person, oriented to place and oriented to time HEENT normocephalic, head/scalp atraumatic and moist oral mucous membranes Eyes PERRL, EOMs intact bilaterally and conjunctivae normal Neck supple, no JVD and thyroid normal General: trachea midline Resp normal respiratory effort, no retractions, no use of accessory muscles and clear to auscultation bilaterally Auscultation: Negative for rales, rhonchi or wheezes Cardio regular rate, regular rhythm, S1 normal heart sound, S2 normal heart sound, no murmurs, no rub and no gallops GI normal to inspection, nondistended, normoactive bowel sounds, soft to palpation, non-tender and non-distended Extremity no clubbing, cyanosis or edema Skin no rashes or lesions noted General Skin Exam: no breakdown Neuro oriented x3, CN's II-XII intact bilaterally, moves all extremities, no focal motor deficits and no sensory deficits noted Sensorium / Orientation: awake and alert Speech: speech normal Psych affect normal Assessment & Plan Assessment/Plan (1) Suicide attempt: PLAN: Plan 1. Suicide attempt-again patient will be seen by crisis, she will need transfer to a psychiatric facility for inpatient care #2 bipolar disorder-complicates care, management, recovery, and prognosis #3 chronic anxiety/depression-complicates care, management, recovery, and prognosis #4 seizure disorder-patient is on Keppra #5 morbid obesity-complicates care, management, recovery, and prognosis Total clinical time spent by myself addressing the patient's medical issues, reviewing all of her data, and collaborating with patient's care team: 25 minutes Charges/Coding Visit Charges Inpatient E&M: 10168 Subs Hosp L1
[2023-09-23] MEDS: 0.9% Saline Lock 10 ML Syringe IV (16:57)
[2023-09-23] MEDS: Ondansetron 4 MG/2 ML Vial IV (16:58)
[2023-09-23] MEDS: ALPRAZolam 0.5 MG Tablet 2 MG PO (16:58)
[2023-09-23 18:47] VITALS: BP 144/87; PULSE 84; RESP 14; TEMP 36.8; O2SAT 97
--- NOTE | 2023-09-25 09:01 | PCM.DC.SUM ---
Providers Date of Admission: 09/22/23 Date of Discharge: 09/23/23 Primary Care Physician: Peter Maya MD Reason For Visit: DRUG OVERDOSE Diagnosis Discharge Diagnosis (1) Suicide attempt: Status: Acute Code(s): T14.91XA - Suicide attempt, initial encounter Plan 1. Suicide attempt-again patient will be seen by crisis, she will need transfer to a psychiatric facility for inpatient care #2 bipolar disorder-complicates care, management, recovery, and prognosis #3 chronic anxiety/depression-complicates care, management, recovery, and prognosis #4 seizure disorder-patient is on Keppra #5 morbid obesity-complicates care, management, recovery, and prognosis #6 hypokalemia Medications at Discharge Home Medications biotin 5,000 mcg disintegrating tablet 1 tab PO DAILY mouth care 09/06/17 cholecalciferol (vitamin D3) 25 mcg (1,000 unit) tablet 2,000 unit PO DAILY supplement 09/05/18 alprazolam 2 mg tablet (Xanax) 2 mg PO BID anxiety 07/28/20 alprazolam 1 mg tablet (Xanax) 1 mg PO QHS anxiety 10/18/21 citalopram 20 mg tablet (Celexa) 20 mg PO DAILY depression 10/18/21 citalopram 10 mg tablet 10 mg PO Q24H DEPRESSION 02/06/23 levetiracetam 1,000 mg tablet 1,000 mg PO BID SEIZURES 02/06/23 Hospital Course Operations None Procedures None Summary of Care Provided Minutes Spent on Discharge: 31 Hospital Course: This 38-year-old white female was seen in the emergency room at [facility] stating that she took large amounts of aspirin, Naprosyn, and ibuprofen in an attempt to end her life. She has a history of depression and previous suicide attempts. Labs obtained in the emergency room included a CBC which was unremarkable, patient's chemistry panel was remarkable for potassium of 3.4 and a bilirubin of 1.2. Patient's AST was slightly elevated and her ALT was slightly elevated. Patient was given activated charcoal but vomited it up shortly after ingesting it. Patient was admitted to PCU, she was evaluated the following day and felt to be medically stable, crisis saw the patient and recommended transfer to a psych unit for further care. I filled out the pink slip on the patient. On 09/23/2023, patient was seen and examined: On examination she does not appear to be in any distress. Vital signs as documented. Skin warm and dry and without overt rashes. Neck without JVD, thyroid appears normal, trachea is midline, neck is supple. Lungs clear, normal air movement was noted. Heart exam notable for regular rhythm, normal sounds and absence of murmurs, rubs or gallops. Abdomen unremarkable and without evidence of organomegaly, masses, or abdominal aortic enlargement, bowel sounds are present in all 4 quadrants, no abdominal tenderness was noted. Extremities nonedematous, no cyanosis was noted, no clubbing was noted. Neuro: Cranial nerves II through XII are grossly intact, no focal motor deficits were noted, sensation to light touch and pinprick is intact, motor exam 5/5 throughout. Psych: Patient is alert and oriented x3, she has a flat affect. On 09/23/2023, patient was transferred to an inpatient psych unit for further care, at that time she was in stable condition Weight / BMI Weight Weight: 147.1 kg Body Mass Index (BMI) 55.6 ABG / Lab / Microbiology Data 09/23/23 05:36 09/23/23 05:36 Meaningful Use Info Meaningful Use Meaningful Use Diagnoses (Choose all that apply): None applicable Ischemic Stroke Statin Dosing Therapy Reference: STATIN DOSE THERAPY REFERENCE: * Patients > 75 years receive moderate or high dose statin therapy. * Patients 75 years or YOUNGER should receive HIGH intensity statin dose unless contraindicated. You will be required to document reason for non-treatment if statin daily dose does not meet guidelines. HIGH DOSE STATIN THERAPY DAILY Atorvastatin > than or = to 40 mg Rosuvastatin > than or = to 20 mg Amlodipine + Atorvastatin > than or = to 2.5/40 mg Ezetimibe + Simvastatin 10/80 mg Simvastatin 80mg Discharge Plan Admission Admit Date/Time: 09/22/23 17:22 Attending Provider: Jones Toscano Primary Care Provider: Peter Maya Consulting Providers: Bon Griffith Discharge Orders/Prescriptions Prescriptions: No Action biotin 5,000 MCG tablet,disintegrating 1 tab PO DAILY cholecalciferol (vitamin D3) 1,000 UNIT tablet 2,000 unit PO DAILY alprazolam [Xanax] 2 mg Tablet 2 mg PO BID alprazolam [Xanax] 1 mg Tablet 1 mg PO QHS citalopram [Celexa] 20 mg Tablet 20 mg PO DAILY citalopram 10 mg tablet 10 mg PO Q24H Patient Comments: TAKE 1 TABLET BY MOUTH EVERY DAY levetiracetam 1,000 mg tablet 1,000 mg PO BID Patient Comments: TAKE 1 TABLET BY MOUTH TWICE DAILY Referrals / Follow Up: Peter Maya MD [Primary Care Provider] - Disposition Disposition (needs filled in before D/C Order can be placed): Psychiatric Hospital or Unit Charges/Coding Visit Charges Inpatient E&M: 10909 Disch Hosp >30min
== END 2023-09-23 19:00 | DRG 918 ==
LOC: ED 17:31 → PCU 17:39
PROVIDERS: Family Medicine; Admitting Provider Internal Medicine; Emergency Provider Emergency Medicine; PCP Family Medicine; Visit Provider Internal Medicine
DX: T39.312A Poisoning by propionic acid derivatives, intentional self-harm, initial encounter (principal); Z68.43 Body mass index [BMI] 50.0-59.9, adult; F25.9 Schizoaffective disorder, unspecified; G40.909 Epilepsy, unspecified, not intractable, without status epilepticus; T39.012A Poisoning by aspirin, intentional self-harm, initial encounter; E66.01 Morbid (severe) obesity due to excess calories; F31.9 Bipolar disorder, unspecified; F41.9 Anxiety disorder, unspecified; E87.6 Hypokalemia; F12.90 Cannabis use, unspecified, uncomplicated; F43.10 Post-traumatic stress disorder, unspecified; Z79.899 Other long term (current) drug therapy
CPT/HCPCS: 36415; 80053; 80307; 80329; 82077; 82803; 84703; 85025; 85610; 93005; 99285; A4216; G0480; J2405

== ENCOUNTER 2023-10-08 14:06 | Emergency (ER) | payer MEDICARE, MEDICAID, SELFPAY ==
[2023-10-08 14:07] VITALS: BP 146/107; PULSE 84; RESP 17; TEMP 36.8; O2SAT 100; BMI 55.3
--- NOTE | 2023-10-08 14:19 | EKG12_ITS ---
Test Reason : CP Blood Pressure : / mmHG Vent. Rate : 073 BPM Atrial Rate : 073 BPM P-R Int : 164 ms QRS Dur : 090 ms QT Int : 396 ms P-R-T Axes : 023 029 027 degrees QTc Int : 436 ms Normal sinus rhythm Normal ECG Confirmed by CRISTINO ARCE, VINEET ([id number]), editorial specialist MAGO WARD ([id number]) on 10/10/2023 2:25:45 PM Referred By: URSULA/JOO Confirmed By:RUBÉN GREGG MD
--- NOTE | 2023-10-08 14:19 | RAD_ITS ---
EXAM: XR CHEST, 1 VIEW CLINICAL INDICATION: chest pain TECHNIQUE: Frontal view of the chest. COMPARISON: 02.06.23 FINDINGS: LUNGS AND PLEURAL SPACES: Unremarkable. No consolidation or edema. No pneumothorax. No effusion. HEART: Unremarkable. Cardiac silhouette not enlarged. MEDIASTINUM: Central airways and mediastinal contour are unremarkable. BONES/JOINTS: Unremarkable. No acute fracture. SOFT TISSUES: Unremarkable. RAD/Chest 1 View (Portable) IMPRESSION: No radiographic evidence of acute cardiopulmonary disease. Electronically Signed: Luis A Mancia MD at 15:13 EDT ,
--- NOTE | 2023-10-08 14:38 | EDS_ITS ---
HPI History of Present Illness Chief Complaint: Chest Pain Narrative Narrative: 38-year-old female presenting with anxiety. She has been having repeated anxiety attacks throughout the morning. Started at midnight. She states she has burning in her chest. Patient does not have any cardiac history. She does not have a cough, fever, chills. She states she does get sweaty at times. She has a history of anxiety and depression. She is not suicidal or homicidal today. Patient stating that she is concerned she might have a UTI as well. 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 Intentional overdose of nonsteroidal anti-inflammatory drug (NSAID) Intentional aspirin overdose Depression with suicidal ideation Personality, multiple Epilepsy PTSD (post-traumatic stress disorder) Anxiety and depression Home Medications ?Medication ?Instructions ?Recorded ?Last Taken ?Type biotin 5,000 mcg disintegrating 1 tab PO DAILY mouth care 09/06/17 09/21/23 History tablet cholecalciferol (vitamin D3) 25 2,000 unit PO DAILY supplement 09/05/18 09/22/23 History mcg (1,000 unit) tablet alprazolam 2 mg tablet (Xanax) 2 mg PO BID anxiety 07/28/20 09/22/23 History alprazolam 1 mg tablet (Xanax) 1 mg PO QHS anxiety 10/18/21 09/21/23 History citalopram 20 mg tablet (Celexa) 20 mg PO DAILY depression 10/18/21 09/22/23 History citalopram 10 mg tablet 10 mg PO Q24H DEPRESSION 02/06/23 09/22/23 History levetiracetam 1,000 mg tablet 1,000 mg PO BID SEIZURES 02/06/23 09/22/23 History Allergy/AdvReac Type Severity Reaction Status Date / Time phenobarbital Allergy Unknown Verified 10/08/23 14:07 propranolol Allergy Rash Verified 10/08/23 14:07 hydralazine AdvReac Mild confusion Verified 10/08/23 14:07 Family History Mother Heart disease Surgical History H/O dilation and curettage History of hysteroscopy partial labotomy Social History Smoking Status: Never smoker alcohol intake: current details: social substance use type: does not use caffeine: Yes what type of physical activity do you participate in: none seatbelt use: always do you feel safe at home: No additional social history: single-unemployed ROS ROS ED Constitutional Constitutional ED: Denies chills, fever(s) or sweats Eyes Eyes: Denies blurry vision or change in vision ENT ENT ED: Denies ear pain or sore throat Cardiovascular Cardiovascular: Reports as per HPI; Denies chest pain, palpitations or racing heartbeat Respiratory/Chest Respiratory/Chest: Denies cough, dyspnea or sputum Gastrointestinal Gastrointestinal: Denies abdominal pain, constipation, diarrhea, nausea or vomiting Genitourinary Genitourinary ED: Reports dysuria; Denies hematuria or urinary frequency Musculoskeletal Musculoskeletal: Denies arthralgias, myalgias or neck pain Integumentary Denies abscess, Abrasions or rash Neurologic Neurologic: Denies headache(s), paresthesias or weakness Psychiatric Psychiatric: Denies anxiety, depression, suicidal ideation or suicidal thoughts Endocrine Endocrinology: Denies polydipsia or polyuria EXAM Physical Exam Const Vital Signs: 10/08/23 14:07 10/08/23 14:38 10/08/23 14:38 Temperature 98.2 F Temperature Source Temporal Pulse Rate 84 Respiratory Rate 17 Respiratory Effort Normal Non-Labored Blood Pressure 146/107 H Blood Pressure Mean 120 Pulse Ox 100 Oxygen Delivery Method Room Air Room Air 10/08/23 15:27 Temperature Temperature Source Pulse Rate 77 Respiratory Rate 18 Respiratory Effort Blood Pressure 151/81 H Blood Pressure Mean 104 Pulse Ox 97 Oxygen Delivery Method Room Air Positive well nourished General Appearance ED: NAD HEENT Reports moist mucous membranes normocephalic Eyes PERRL and EOMs intact bilaterally Chest Wall inspection of chest normal Resp normal respiratory effort and clear to auscultation bilaterally Auscultation: Negative for rales, rhonchi or wheezes Cardio regular rate and regular rhythm GI normal to inspection, nondistended, normoactive bowel sounds Neuro oriented x3 and CN's II-XII intact bilaterally Sensorium / Orientation: awake and alert Psych mental status grossly normal Skin no rashes or lesions noted MDM MDM MDM Narrative Medical decision making narrative: 38-year-old female presenting with anxiety. She states her chest is burning. Differential includes but is not limited to ACS, pneumonia, pneumothorax, muscle strain, costochondritis, dehydration, anemia, electrolyte abnormalities, anxiety, UTI. CBC will be obtained to assess white blood cell count, hemoglobin, platelets. BMP to assess renal function, electrolytes, glucose. High-sensitivity troponin and EKG to assess for ischemia/dysrhythmia. Chest x- ray to rule out pneumonia. Urinalysis will be obtained. CBC shows normal white blood cell count of 5.3. Hemoglobin 13.8. Platelets normal at 306. Renal function and electrolytes unremarkable. High-sensitivity troponin is 5. EKG interpreted by myself shows a sinus rhythm at 73 bpm without sign of ischemic change or dysrhythmia. Chest x-ray interpreted by myself shows no acute cardiopulmonary process. The radiologist interprets this and agrees. Urinalysis negative for infection. At this point patient stable for discharge. I do believe she is having anxiety. Impression: 1. Anxiety 2. Atypical chest pain 3. Dysuria Lab Data Attestation: I reviewed the patient's lab results. Labs: Laboratory Results - last 24 hr 10/08/23 10/08/23 14:30 15:20 WBC 5.3 RBC 4.55 Hgb 13.8 Hct 39.6 MCV 87.0 MCH 30.3 MCHC 34.8 RDW Std Deviation 38.3 RDW Coeff of Thomas 12.0 Plt Count 306 MPV 9.9 Immature Gran % (Auto) 0.400 Neut % (Auto) 71.0 H Lymph % (Auto) 23.2 [place] % (Auto) 4.8 Eos % (Auto) 0.0 Baso % (Auto) 0.6 Absolute Neuts (auto) 3.7 Absolute Lymphs (auto) 1.22 Nucleated RBC % 0 Sodium 138 Potassium 3.6 Chloride 109 H Carbon Dioxide 24.0 Anion Gap 5 BUN 8 Creatinine 0.75 Estim Creat Clear Calc 143.71 Est GFR (MDRD) Af Amer 110 Est GFR (MDRD) Non-Af 91 BUN/Creatinine Ratio 10.7 Glucose 119 H Calcium 9.0 Troponin I High Sens 5 Urine Color Yellow Urine Clarity Sl. Cloudy Urine pH 6.5 Ur Specific [place] 1.010 Urine Protein 15 H Urine Glucose (UA) Normal Urine Ketones 50 H Urine Occult Blood 250 H Urine Nitrite Negative Urine Bilirubin Negative Urine Urobilinogen Normal Ur Leukocyte Esterase Negative Urine RBC 5-10 SEEN Urine WBC 0 SEEN Ur Squamous Epith Cells 0-5 SEEN Urine Bacteria 0 SEEN Urine Mucus 0 SEEN Radiography Diagnostic Testing: Clinical Impression(s) from Imaging Studies Chest X-Ray 10/08/23 14:19 IMPRESSION: No radiographic evidence of acute cardiopulmonary disease. Electronically Signed: Luis A Mancia MD at 15:13 EDT Reading Location ID and State: [facility] / [place] , Service support , Discharge Plan Triage Chief Complaint: Chest Pain ED Provider: Uday Almaraz Dx/Rx/DC Orders Instructions: ED Chest Pain, Noncardiac Prescriptions: No Action biotin 5,000 MCG tablet,disintegrating 1 tab PO DAILY cholecalciferol (vitamin D3) 1,000 UNIT tablet 2,000 unit PO DAILY alprazolam [Xanax] 2 mg Tablet 2 mg PO BID alprazolam [Xanax] 1 mg Tablet 1 mg PO QHS citalopram [Celexa] 20 mg Tablet 20 mg PO DAILY citalopram 10 mg tablet 10 mg PO Q24H Patient Comments: TAKE 1 TABLET BY MOUTH EVERY DAY levetiracetam 1,000 mg tablet 1,000 mg PO BID Patient Comments: TAKE 1 TABLET BY MOUTH TWICE DAILY Primary Care Provider: Peter Maya Referrals: Peter Maya MD [Primary Care Provider] - Print Language: [place] Disposition Disposition: Home, Self Care
[2023-10-08 14:43] LABS: Absolute Lymphocyte Count 1.22 X10^3/uL (0.83-4.51); Absolute Neutrophil Count 3.7 X10^3/uL (2.0-7.7); Basophil# 0.03 X10^3/uL; Basophil% 0.6 % (0-1); Hematocrit 39.6 % (37-47); Hemoglobin 13.8 g/dL (12.0-15.0); Lymphocyte # 1.22 X10^3/ul (0.83-4.51); Lymphocyte % 23.2 % (19-41); Mean Corp Hgb Conc 34.8 g/dL (32-36); Mean Corpuscular Hgb 30.3 pg (27.0-32.0); Mean Platelet Vol. 9.9 fl (6.2-12.0); Monocyte# 0.25 X10^3/uL; Monocyte% 4.8 % (0-10); NRBC Flagged by Analyzer 0 % (0-5); Neutrophil # 3.73 X10^3/uL (2.7-7.7); Platelet Count 306 K/mm3 (150-450); RBC Distribution Width SD 38.3 fl (35.1-43.9); Red Blood Count 4.55 M/mm3 (4.2-5.4); White Blood Count 5.3 K/mm3 (4.4-11.0)
[2023-10-08 15:00] LABS: Anion Gap 5 (5-15); BUN 8 mg/dL (7-18); BUN/Creat Ratio 10.7 RATIO (10-20); Chloride 109 mmol/L (98-107); Creatinine, Serum 0.75 mg/dL (0.55-1.02); EST Glomerular Filtration Rate 91 mL/min (>60); Est Glom Filt Rate - Afr Amer 110 mL/min (>60); Estimated Creatinine Clearance 143.71 ml/min; Glucose 119 mg/dL (74-106); Potassium 3.6 mmol/L (3.5-5.1); Sodium Level 138 mmol/L (136-145); Troponin-I HS 5 pg/mL (3.0-54.0)
[2023-10-08 15:27] VITALS: BP 151/81; PULSE 77; RESP 18; O2SAT 97
[2023-10-08 15:30] LABS: Bacteria 0 SEEN /hpf (None Seen); Mucous, Urine 0 SEEN /hpf (<or=2+); White Blood Cells 0 SEEN /hpf (0-5)
[2023-10-08 15:37] LABS: Color, Urine Yellow (Yellow); Glucose, Dipstick Normal (Normal); Ketone-Dipstick 50 mg/dl (Negative); Leukocyte Esterase-Dipstick Negative /ul (Negative); Nitrite-Dipstick Negative (Negative); Occult Blood-Urine 250 /ul (Negative); Protein-Dipstick 15 mg/dl (Negative); Urine Bilirubin Dipstick Negative (Negative); Urine Clarity Sl. Cloudy (Clear); Urine Urobilinogen Normal (Normal); Urine pH 6.5 (5.0 - 8.0)
[2023-10-08 15:50] LABS: Red Blood Cells-Urine 5-10 SEEN /hpf (0-5); Squamous Epithelial Cells - UA 0-5 SEEN /hpf (5-10)
[2023-10-08 16:04] VITALS: BP 145/88; PULSE 70; RESP 18; TEMP 36.6; O2SAT 97
== END 2023-10-08 16:06 | disposition home or self-care (01) ==
PROVIDERS: Emergency Provider Student in an Organized Health Care Education/Training Program; PCP Family Medicine; Visit Provider Student in an Organized Health Care Education/Training Program
DX: F41.9 Anxiety disorder, unspecified (principal); R30.0 Dysuria; R07.89 Other chest pain; F32.A Depression, unspecified
CPT/HCPCS: 71045; 80048; 81001; 84484; 85025; 93005; 99283

== ENCOUNTER → 2023-12-14 | Outpatient (CLI) | payer MEDICARE, MEDICAID, SELFPAY ==
[2023-12-14 18:17] LABS: Hemoglobin A1c 5.5 % (3.8-5.6)
== END | disposition home or self-care (01) ==
LOC: MFPLAB 15:34
PROVIDERS: PCP Family Medicine; Referring Provider Family Medicine; Visit Provider Family Medicine
DX: Z13.1 Encounter for screening for diabetes mellitus (principal)
CPT/HCPCS: 36415; 83036

== ENCOUNTER → 2024-01-05 | Outpatient (CLI) | payer MEDICARE, MEDICAID, SELFPAY ==
--- OUTSIDE RECORDS SUMMARY | 2024-01-05 11:47 | XMS RPT_ITS | CCD ---
Author Organization [facility] Care Team Providers Care Patch Driller Name Role Phone Sheyla Foster MD Unavailable [phone] Gabe CHILD NURSE, Thu Machuca Unavailable Byron Arriola Admitting Unavailable Byron Arriola Attending Unavailable Sheyla Foster MD Unavailable [phone] Unavailable Primary Care Provider Unavailabl e Unavailable Primary Care Provider Unavailabl e Unavailable Primary Care Provider Unavailabl e Unavailable Primary Care Provider Unavailabl e Matthew INFORMATION TECHNOLOGY COORDINATOR.Gabe ALLEN Primary Care Provider Carol Noonan DO Primary Care Provider Carol Noonan DO Primary Care Provider GABE PIERRE Attending Unavailable Palma Neri ([facility]) Primary Care Provider Kristin vailable Palma Neri ([facility]) Primary Care Provider Kristin vailable GABE PIERRE Primary Care Unavailable ANTHONY GUEVARA Attending Unavailable ANTHONY GUEVARA Referring Unavailable Abdirashid Vazquez DO Primary Care Provider YESSI MUNOZ Attending Unavailable CAROL NOONAN Primary Care Unavailable DEMETRIUS ROBERTSON Attending Unavailable CAROL NOONAN Primary Care Unavailable Allergies Allergy Classification Reported Allergen(s) Allergy Type Date of Onset Reaction(s) Facility Antihistamines (1 source) hydrOXYzine Drug Allergy 04-26-19 24 Mental Status Change [facility] PHENobarbital (2 sources) PHENobarbital Drug Allergy 09-13-19 07 Other (See Comments), [facility] Pro[facility]anolol (1 source) Propranolol Drug Allergy 08-21-19 23 Rash [facility] (9 sources) PHENABARBITOL drug allergy 09-11-19 10 to young when reaction occured to remember reaction [facility] (20 sources) PHENobarbital; Translations: [PHENOBARBITAL] Drug Allergy 09-13-19 07 Other (See Comments), [facility] (6 sources) Propanediol Propensity to adverse reactions 07-09-19 [facility] (9 sources) hydrOXYzine; Translations: [HYDROXYZINE] Drug Allergy 04-26-19 Mental Status Change, Other [facility] (9 sources) Propranolol; Translations: [PROPRANOLOL] Drug Allergy 08-21-19 Rash [facility] Medications Current Medications Medication Drug Class(es) Dates Sig (Normalized) Sig (Original) ALPRAZolam 1 mg oral tablet (20 sources) Benzodiazepine Start: 06-17-2022 take 1 tablet by mouth once daily ALPRAZolam (Xanax) 1 MG tablet Take 1 mg by mouth Nightly. 0 06/17/2022 Active Start: 10-07-2016 End: 02-06-2017 take 1 tablet by mouth three times daily ALPRAZOLAM 2 MG TABS One tablet by mouth three times daily ALPRAZOLAM [id number] Sheyla Foster MD Start: 11-27-2012 ALPRAZolam (XA NAX) 2 mg tablet Indications: Bipolar disorder, unspecified (HCC) Take 2 mg by mouth twice daily. 2 mg am 2mg noon 1 mg bedtime 11/27/2012 Active Comment on above: Take 2 mg by mouth t wice daily. Take 2 mg by mouth t wice daily. 2 mg am 2mg noon 1 mg bedtime amoxicillin 875 mg / clavulanate 125 mg oral tablet (1 source) Penicillin-class Antibacterial Start: 4 End: 4 take 1 tablet by mouth twice daily amoxicillin-clavula barrington potassium (AUGMENTIN) 875-125 mg per tablet Take 1 tablet by mouth two times a day for 7 days. 14 tablet 0 04/26/2023 05/03/2023 Active Comment on above: Take 1 tablet by edmundo th two times a day for 7 days. benzonatate 100 mg oral capsule (9 sources) Non-narcotic Antitussive Start: 4 take 1 capsule by mouth every eight hours as needed benzonatate (TESSALON PERLES) 100 mg capsule Take 1 capsule by mouth three times a day as needed. 14 capsule 0 04/26/2023 Active Start: 06-07-2022 End: 06-14-2022 take 1 capsule by mouth three times daily as needed benzonatate (TESSALON PERLES) 100 mg capsule Indications: Rhinosinusitis Take 1 capsule by mouth three times daily as needed for up to 7 days. 21 capsule 0 06/07/2022 06/14/2022 Active Comment on above: Take 1 capsule by mo ut three times daily as needed for up to 7 days. Take 1 capsule by mo ut three times a day as needed. Biotin (20 sources) BIOTIN ORAL Take by mouth. Active BIOTIN ORAL Take by mouth. 0 Active Comment on above: Take by mouth. cholecalciferol 0.05 mg oral tablet (20 sources) Vitamin D Start: take 1 tablet by mouth once daily cholecalciferol (VITAMIN D3) 2,000 unit tablet Indications: Vitamin D insufficiency Take 1 tablet by mouth once daily. 90 tablet 3 01/30/2018 Active Cholecalciferol (Vitamin D) 125 MCG (5000 UT) capsule Take by mouth 2 times daily. 0 Active Comment on above: Take 1 tablet by edmundo th once daily. citalopram 20 mg oral tablet (20 sources) Serotonin Reuptake Inhibitor Start: 06-17-2022 take 1.5 tablets by mouth once daily citalopram (CeleXA) 20 MG tablet TAKE 1.5 TABLETS BY MOUTH EVERY DAY 0 06/17/2022 Active Start: 09-20-2021 take 1 tablet by edmundo th once daily citalopram (CELEXA) 20 mg tablet Take 20 mg by mouth once daily. 0 09/20/2021 Active Start: 09-20-2021 take 1 tablet by edmundo th once daily citalopram hydrobromide (CELEXA) 10 mg tablet Take 10 mg by mouth once daily. 0 09/20/2021 Active End: 02-06-2017 take 1 tablet by mouth once daily CELEXA 20 MG TABS One tablet by mouth daily CITALOPRAM HYDROBROMIDE [id number] Sheyla Foster MD Comment on above: Take 20 mg by mouth once daily. Take 10 mg by mouth once daily. doxycycline monohydrate 100 mg oral tablet (1 source) Tetracycline-cla ss Drug Start: 06-07-2022 End: 06-14-2022 take 1 tablet by mouth twice daily doxycycline monohydrate 100 mg tablet Indications: Rhinosinusitis Take 1 tablet by mouth twice daily for 7 days. 14 tablet 0 06/07/2022 06/14/2022 Active Comment on above: Take 1 tablet by edmundo th twice daily for 7 days. ferrous sulfate (20 sources) ferrous sulfate (IRON ORAL) Take by mouth. Active take 1 tablet by edmundo th once daily at breakfast ferrous sulfate 325 (65 Fe) MG tablet Ta ke 325 mg by mouth daily (with breakfast). 0 Active ferrous sulfate (IRON ORAL) Take by mouth. 0 Active Comment on above: Take by mouth. loratadine 10 mg oral tablet (13 sources) Start: 06-08-19 take 1 tablet by mouth once daily loratadine (CLARITIN) 10 mg tablet Indications: Rhinosinusitis Take 1 tablet by mouth once daily. 30 tablet 11 06/07/2022 Active Comment on above: Take 1 tablet by edmundo once daily. meloxicam 15 mg oral tablet (1 source) Nonsteroidal Anti-inflammatory Drug Start: 09-28-19 24 take 1 tablet by mouth once daily meloxicam (MOBIC) 15 mg tablet Take 1 tablet by mouth once daily. 30 tablet 3 09/28/2023 Active metFORMIN hydrochloride 500 mg oral tablet (20 sources) Biguanide Start: 09-21-19 22 take 1 tablet by mouth three times daily metFORMIN (GLUCOPHAGE) 500 mg tablet Take 500 mg by mouth three times daily. 0 09/20/2021 Active Start: 11-19-2020 take 1 tablet by edmundo th three times daily metFORMIN (GLUCOPHAGE) 500 MG tablet Take 1 tablet by mouth 3 times daily 90 tablet 5 11/19/2020 Active Start: 09-10-2009 End: 07-04-2013 METFORMIN HCL 500 MG TABS 3 times a day METFORMIN HCL [id number] Rani Jackson MD Comment on above: Take 500 mg by mouth three times daily. metroNIDAZOLE 500 mg oral tablet (2 sources) Nitroimidazole Antimicrobial Start: 10-29-19 End: 11-03-19 21 take 1 tablet by mouth twice daily metroNIDAZOLE (FLAGYL) 500 MG tablet Take 1 tablet by mouth 2 times daily for 5 days 10 tablet 0 10/28/2020 11/02/2020 Active Start: 06-18-2018 End: 02-24-2021 take 2 g by mouth once metroNIDAZOLE (FLAGYL) 500 m g tablet 2 grams by mouth once 4 tablet 06/18/2018 02/24/2021 Discontinued predniSONE 20 mg oral tablet (2 sources) Start: 06-07-2022 End: 06-12-2022 take 2 tablets by mouth once daily predniSONE (DELTASONE) 20 mg tablet Indications: Rhinosinusitis Take 2 tablets by mouth once daily for 5 days. 10 tablet 0 06/07/2022 06/12/2022 Active Start: 07-09-2021 End: 07-18-2021 predniSONE (DELTASONE) 10 mg tablet Indications: TMJ pain dysfunction syndrome Take 4 tabs daily for 3 days, then 2 tabs daily for 3 days, then 1 tab daily for 3 days with food. 21 tablet 0 07/09/2021 07/18/2021 Active Comment on above: Take 4 tabs daily fo r 3 days, then 2 tabs daily for 3 days, then 1 tab daily for 3 days with food. Take 2 tablets by mo [facility] once daily for 5 days. propranolol hydrochloride 10 mg oral tablet (18 sources) beta-Adrenergic Bashir Start: 08-02-2021 take 1 tablet by mouth once daily propranolol (INDERAL) 10 mg tablet Take 1 tablet by mouth once daily. 0 08/02/2021 Active Comment on above: Take 1 tablet by edmundo once daily. Completed/Discontinued Medications Medication Drug Class(es) Dates Sig (Normalized) Sig (Original) amitriptyline hydrochloride 25 mg oral tablet (20 sources) Tricyclic Antidepressant Start: 10-07-2016 take 3 tablets by mouth in the evening as needed AMITRIPTYLINE HCL 25 MG TABS Take three tablets by mouth in the evening as needed AMITRIPTYLINE HCL [id number] Sheyla Foster MD Start: 03-01-2012 End: 02-24-2021 take 4 tablets by mouth at bedtime as needed amitriptyline 25 mg tablet Indications: Bipolar disorder, unspecified (HCC) Take 4 tablets by mouth at bedtime as needed. 03/01/2012 02/24/2021 Discontinued Start: 09-10-2009 AMITRIPTYLINE HCL 50 MG TABS 1 a day AMITRIPTYLINE HCL [id number] Rani Jackson MD End: 02-06-2017 AMITRIPTYLINE HCL 75 MG TABS (AMITRIPTYLINE HCL) as needed AMITRIPTYLINE HCL 75 MG TABS (AMITRIPTYLINE HCL) Sheyla Foster MD End: 02-06-2017 AMITRIPTYLINE HCL 75 MG TABS (AMITRIPTYLINE HCL) as needed AMITRIPTYLINE HCL 75 MG TABS (AMITRIPTYLINE HCL) Sheyla Foster MD AMITRIPTYLINE HC L 75 MG TABS (AMITRIPTYLINE HCL) as needed Brian Cooper betamethasone 3 mg/ml / betamethasone acetate 3 mg/ml injectable suspension (1 source) Corticosteroid Start: 01-21-2022 End: 01-21-2022 betamethasone acetate-betamethasone sodium phosphate 6 mg injection (CELESTONE) Start: 01-21-2022 End: 01-21-2022 betamethasone acetate-betame thasone sodium phosphate 6 mg injection (CELESTONE) DULoxetine 60 mg delayed release oral capsule (20 sources) Serotonin and Norepinephrine Reuptake Inhibitor Start: 09-10-2009 End: 02-06-2017 take 1 tablet by mouth once daily CYMBALTA 60 MG CPEP One tablet by mouth daily DULOXETINE HCL [id number] Sheyla Foster MD etodolac 400 mg oral tablet (7 sources) Nonsteroidal Anti-inflammatory Drug Start: 10-23-2020 End: 03-02-2022 take 1 tablet by mouth twice daily etodolac (LODINE) 400 mg tablet Take 1 tablet by mouth twice daily. 30 tablet 0 10/23/2020 03/02/2022 Discontinued Comment on above: Take 1 tablet by edmundo twice daily. gabapentin 100 mg oral capsule (18 sources) Anti-epileptic Agent Start: 09-10-2009 End: 07-04-2013 NEURONTIN 100 MG CAPS 3 times a day GABAPENTIN [id number] Brian Cooper Start: 09-10-2009 End: 07-04-2013 NEURONTIN 100 MG CAPS 3 time s a day GABAPENTIN [id number] Rani Jackson MD hydrOXYzine hydrochloride 50 mg oral tablet (18 sources) Antihistamine Start: 09-10-2009 End: 07-04-2013 HYDROXYZINE HCL 50 MG TABS 3 a day HYDROXYZINE HCL [id number] Brian Cooper lamoTRIgine 100 mg oral tablet (20 sources) Mood Stabilizer, Anti-epileptic Agent Start: 09-10-2009 LAMICTAL 100 MG TAB S twice a day LAMOTRIGINE [id number] Rani Jackson MD End: 02-06-2017 take 1 tablet by mouth twice daily LAMICTAL 200 MG TABS (LAMOTRIGINE) One tablet by mouth twice daily Brian Cooper letrozole 2.5 mg oral tablet (9 sources) Aromatase Inhibitor Start: 10-07-2016 take 2 tablets by mouth once daily, then take 3-7 tablets by mouth LETROZOLE 2.5 MG TABS 2 tabs po daily x 5 days day 3-7 LETROZOLE [id number] Sheyla Foster MD levETIRAcetam 1000 mg oral tablet (20 sources) Anti-epileptic Agent Start: 07-08-2022 End: 06-20-2024 take 1 tablet by mouth twice daily levETIRAcetam (Keppra) 1000 MG tablet TAKE 1 TABLET BY MOUTH TWICE DAILY 60 tablet 3 04/18/2023 06/21/2023 Discontinued (Reorder) Start: 01-26-2022 End: 07-08-2022 take 2 tablets by mouth in the morning levETIRAcetam (Keppra) 500 MG tablet Indications: 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 120 tablet 2 01/26/2022 07/08/2022 Discontinued (Therapy completed) Start: 10-06-2020 levETIRAcetam (KEPPRA) 500 MG tablet Take 2 tabs in am and 1 tab in pm 90 tablet 5 10/06/2020 Active Start: 10-07-2016 KEPPRA 500 MG TABS Take two tablets by mouth in the morning and one tablet before bed LEVETIRACETAM [id number] Sheyla Foster MD Start: 03-31-2015 levETIRAcetam XR (KEPPRA XR) 500 mg 24 hr tablet Take 500 mg each morning and 1000 mg evening. 03/31/2015 Active Comment on above: Take 500 mg each mor nhan and 1000 mg evening. medroxyPROGESTERone acetate 10 mg oral tablet (20 sources) Progestin Start: 2017 End: 2020 take 1 tablet by mouth once daily medroxyPROGESTERone (PROVERA) 10 mg tablet Take 1 tablet by mouth once daily. 10 tablet 12 01/08/2018 02/24/2021 Discontinued Start: 10-07-2016 End: 10-17-2016 take 1 tablet by mouth once daily PROVERA 10 MG TABS One tablet by mouth daily MEDROXYPROGESTERONE ACETATE [id number] Sheyla Foster MD Start: 09-10-2009 End: 07-04-2013 PROVERA 10 MG TABS 1 every 3 -4 months as needed to regulate periods MEDROXYPROGESTERONE ACETATE [id number] Rani Jackson MD mupirocin 0.02 mg/mg topical ointment (1 source) RNA Synthetase Inhibitor Antibacterial Start: 12-28-2018 End: 02-24-2021 mupirocin (BACTROBAN) 2 % ointment Indications: Skin infection Apply 1 application to affected area three times daily. 22 g 12/28/2018 02/24/2021 Discontinued spironolactone 100 mg oral tablet (18 sources) Aldosterone Antagonist Start: 09-10-2009 End: 07-04-2013 SPIRONOLACTONE 100 MG TABS 1 a day SPIRONOLACTONE [id number] Rani Jackson MD Problems Active Problems Problem Classification Problem Date Documented Date Episodic/Chronic Disorders of teeth and jaw (1 source) Temporomandibular [id number] syndrome; Translations: [Arthralgia of temporomandibular joint, unspecified side] Episodic Epilepsy; convulsions (20 sources) Generalized convulsive epilepsy; Translations: [Generalized idiopathic epilepsy and epileptic syndromes, not intractable, without status epilepticus] Onset: 06-21-2023 11-12-2004 Chronic Female infertility (9 sources) Primary female infertility; Translations: [Female infertility, unspecified] Onset: 10-07-2016 10-07-2016 Chronic Inflammatory diseases of female pelvic organs (1 source) Acute vaginitis; Translations: [Acute vaginitis] Episodic Menopausal disorders (2 sources) Excessive bleeding in the premenopausal period; Translations: [Excessive bleeding in the premenopausal period] Onset: 01-03-2024 Chronic Osteoarthritis (2 sources) Osteoarthritis of right knee joint; Translations: [Unilateral primary osteoarthritis, right knee] 08-25-2023 Chronic Other connective tissue disease (1 source) Prepatellar bursitis of right knee; Translations: [Prepatellar bursitis, right knee] Episodic Other endocrine disorders (20 sources) Polycystic ovary syndrome; Translations: [Polycystic ovarian syndrome] Onset: 04-14-2009 Chronic Other endocrine disorders (1 source) Disorder of pituitary gland; Translations: [Other disorders of pituitary gland] Chronic Other endocrine disorders (1 source) Disorder of endocrine ovary; Translations: [Other ovarian dysfunction] Chronic Other injuries and conditions due to external causes (1 source) Injury of right knee; Translations: [Unspecified injury of right lower leg, initial encounter] 10-20-2020 Episodic Other non-traumatic joint disorders (3 sources) Pain in right knee; Translations: [Pain in joint, lower leg] Onset: 08-25-2023 08-15-2023 Episodic Other nutritional; endocrine; and metabolic disorders (20 sources) Severe obesity; Translations: [Morbid (severe) obesity due to excess calories] 01-11-2018 Chronic Other skin disorders (20 sources) Hirsutism; Translations: [Hirsutism] Onset: 10-07-2016 10-07-2016 Episodic Other skin disorders (1 source) Eruption; Translations: [Rash and other nonspecific skin eruption] Episodic Other skin disorders (1 source) Papule of skin; Translations: [Other skin changes] 05-10-2023 Episodic Other upper respiratory disease (1 source) Chronic rhinitis; Translations: [Unspecified sinusitis (chronic)] Chronic Other upper respiratory infections (1 source) Chronic sinusitis; Translations: [Chronic sinusitis, unspecified] 04-26-2023 Chronic Other upper respiratory infections (1 source) Sore throat symptom; Translations: [Acute pharyngitis, unspecified] 05-10-2023 Episodic Otitis media and related conditions (1 source) Acute left otitis media; Translations: [Otitis media, unspecified, left ear] 04-26-2023 Episodic Residual codes; unclassified (1 source) Flushing; Translations: [Flushing] Episodic Superficial injury; contusion (1 source) Contusion of lower limb; Translations: [Contusion of right lower leg, subsequent encounter] Episodic Past or Other Problems Problem Classification Problem Date Documented Date Episodic/Chronic Epilepsy; convulsions (7 sources) Seizure; Translations: [Unspecified convulsions] Onset: 06-01-2015 Resolved: 03-12-2020 03-08-2021 Episodic Gastritis and duodenitis (7 sources) Acute gastritis; Translations: [Acute gastritis without bleeding] Onset: 05-23-2008 Resolved: 04-11-2018 04-11-2018 Episodic Immunizations and screening for infectious disease (7 sources) Exposure to sexually transmissible disorder; Translations: [Contact with and (suspected) exposure to infections with a predominantly sexual mode of transmission] Onset: 02-06-2017 02-06-2017 Episodic Menstrual disorders (16 sources) Abnormal uterine and vaginal bleeding, unspecified; Translations: [Menometrorrhagia] Onset: 07-07-2015 Resolved: 07-13-2015 10-07-2016 Chronic Mood disorders (20 sources) Depressive disorder; Translations: [Major depressive disorder, single episode, unspecified] Onset: 03-31-2006 Resolved: 03-02-2022 11-04-2016 Chronic Other and unspecified benign neoplasm (20 sources) Benign neoplasm of stomach; Translations: [Benign neoplasm of stomach] Onset: 05-23-2008 05-23-2008 Episodic Other nutritional; endocrine; and metabolic disorders (7 sources) Morbid obesity; Translations: [Morbid (severe) obesity due to excess calories] Onset: 07-13-2015 Resolved: 03-12-2020 03-12-2020 Chronic Other skin disorders (1 source) Rash and other nonspecific skin eruption; Translations: [Rash of face] Onset: 03-02-2022 Episodic Sexually transmitted infections (not HIV or hepatitis) (7 sources) Gonorrhea; Translations: [Gonococcal infection, unspecified] Onset: 03-19-2013 Resolved: 03-12-2020 03-12-2020 Episodic Skin and subcutaneous tissue infections (16 sources) Cellulitis and abscess of leg, except foot; Translations: [Cellulitis and abscess of trunk] Onset: 05-30-2005 Resolved: 04-14-2009 07-04-2013 Episodic Spondylosis; intervertebral disc disorders; other back problems (7 sources) Finding of back; Translations: [Other specified dorsopathies, site unspecified] Onset: 11-27-2006 Resolved: 04-11-2018 04-11-2018 Episodic Results Test Name Value Interpretation Reference Range Facility 36on 01-03-2024 36 Prior Auth Megestrol acetate initiated through [employer]. Colin: [id number] *PA kicked back an instant approval [facility] 36on 12-01-2023 36 Noted. Pt declined advice to go to ED and scheduled appt for 01/02 [facility] 36on 11-30-2023 36 S: Patient spoke with [facility] nurse regarding vaginal bleeding. B: Onset of symptoms/concern 7 months. A: Patient reports she has been on her menstrual cycle since May. Requesting office visit or pill to stop her menstrual cycle. Patient complaining of soaking through an ultra tampon every 30 minutes with blood clots. Reports at night she is saturating a tampon, and depends. Patient reports she is taking 3 Iron OTC pills daily. Reports BM's are soft. Denies lightheadedness, dizziness, chest pain, difficulty breathing, nausea, vomiting, chills, abdominal pain. Reports drinking increased fluids. Requesting office visit with Dr. Munoz only. R: Patient advised to go to ED at this time per protocol and for her safety. Patient verbalized understanding, declined. Office visit scheduled for 01/03/[address] Munoz per patient request. Insurance verified per policy. Patient heavily encouraged to be evaluated in the ED today. Patient verbalized understanding. Patient understands care advice. No further needs at this time. Patient instructed to call back or go to ED with new or worsening symptoms. Reason for Disposition SEVERE vaginal bleeding (e.g., soaking 2 pads or tampons per hour and present 2 or more hours; 1 menstrual cup every 2 hours) Protocols used: Vaginal Bleeding - [id number] [facility] CNPNon 09-27-2023 [facility] Telephone ([facility]) JOSSE WAYNE ([id number]) 1985 F Date Time Provider Department 09/27/23 ANTHONY GARVIN V [facility] During your visit today, we recorded the following information about you: Ge (Pharmacy Clinical Sales Consultant)Pravin 09/27/2023 3:25 PM Signed === PHARMACY TEAM ==== ADDITIONAL INFORMATION NEEDED/REQUESTED Case Submitted: No Request Type: Provider Date of Service: tbs Additional Information Needed: per payer policy pt must have trail/failure of the following: Pt/hep Nsiads, And CSI. Please advise if pt has completed the above. Thank you. Request from Payor by: N/A Email Sent to: ANTHONY GARVIN V Requested Clinicals/Informatio n Sent: N/A Allergies As of Date: 09/27/2023 Noted Allergy Reaction ATARAX (HYDROXYZINE) 04/26/2023 1 - Mental Status Change Comments: Causes mental changes PHENOBARBITAL 09/12/2006 2 - Rash PROPRANOLOL 08/20/2022 2 - Rash Date Reviewed: 08/25/2023 Reviewed by: Makeda Blakely MA - Fully Assessed Reason for Visit: Insurance Authorization [[id number]] Prescriptions as of 09/27/2023 - benzonatate (TESSALON PERLES) 100 mg capsule Take 1 capsule by mouth three times a day as needed. - loratadine (CLARITIN) 10 mg tablet Take 1 tablet by mouth once daily. - citalopram (CELEXA) 20 mg tablet Take 20 mg by mouth once daily. - citalopram hydrobromide (CELEXA) 10 mg tablet Take 10 mg by mouth once daily. - metFORMIN (GLUCOPHAGE) 500 mg tablet Take 500 mg by mouth three times daily. - propranolol (INDERAL) 10 mg tablet Take 1 tablet by mouth once daily. - BIOTIN ORAL Take by mouth. - cholecalciferol (VITAMIN D3) 2,000 unit tablet Take 1 tablet by mouth once daily. - ferrous sulfate (IRON ORAL) Take by mouth. - levETIRAcetam XR (KEPPRA XR) 500 mg 24 hr tablet Take 500 mg each morning and 1000 mg evening. - ALPRAZolam (XANAX) 2 mg tablet Take 2 mg by mouth twice daily. 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* HIRSUTISM [L68.0] Class 3 severe obesity due to excess calories w* ABSCESS ABDOMINAL WALL [L03.319, L02.219] 05/30/2005 04/14/2009 Bipolar disorder, unspecified (HCC) [F31.9] 03/31/2006 03/02/2022 Other symptoms referable to back [M53.80] 11/27/2006 04/11/2018 POLYP GASTRIC [D13.1] 05/23/2008 Acute gastritis without mention of hemorrhage [*05/23/2008 04/11/2018 PCOS (Polycystic Ovarian Syndrome) [E28.2] 04/14/2009 Gonorrhea [A54.9] 03/19/2013 03/12/2020 Seizure (HCC) [R56.9] 06/01/2015 03/12/2020 Excessive and frequent menstruation with irregu*07/07/2015 07/13/2015 Morbid obesity due to excess calories (HCC) [E6*07/13/2015 03/12/2020 Encounter for medical examination to establish *03/02/2022 Depression [F32.A] 03/02/2022 Encounter Status:Closed by LUMA (PHARMACY IRA)PRAVIN on 09/27/23 [facility] Sara 09[facility]08[facility]20[facility] TONEJOSSE ([id number]) 1985 F Date Time Provider Department 09/08/23 ANTHONY GARVIN During your visit today, we recorded the following information about you: Ladonna Porter MA 09/08/2023 3:00 PM Signed === PHARMACY TEAM ==== ADDITIONAL INFORMATION NEEDED/REQUESTED Case Submitted: No Request Type: Provider Date of Service: tbs Additional Information Needed: per payer policy pt must have trail/failure of the following: Pt/hep Nsiads, And CSI. Please advise if pt has completed the above. Thank you. Request from Payor by: N/A Email Sent to: ANTHONY GARVIN V Requested Clinicals/Informatio n Sent: N/A César Lundberg 09/18/2023 6:51 AM Signed Any updates on this ? Allergies As of Date: 09/08/2023 Noted Allergy Reaction ATARAX (HYDROXYZINE) 04/26/2023 1 - Mental Status Change Comments: Causes mental changes PHENOBARBITAL 09/12/2006 2 - Rash PROPRANOLOL 08/20/2022 2 - Rash Date Reviewed: 08/25/2023 Reviewed by: Makeda Blakely MA - Fully Assessed Reason for Visit: Insurance Authorization [[id number]] Cmt: Prior Auth Delayed: Additional Info Needed Prescriptions as of 09/18/2023 - benzonatate (TESSALON PERLES) 100 mg capsule Take 1 capsule by mouth three times a day as needed. - loratadine (CLARITIN) 10 mg tablet Take 1 tablet by mouth once daily. - citalopram (CELEXA) 20 mg tablet Take 20 mg by mouth once daily. - citalopram hydrobromide (CELEXA) 10 mg tablet Take 10 mg by mouth once daily. - metFORMIN (GLUCOPHAGE) 500 mg tablet Take 500 mg by mouth three times daily. - propranolol (INDERAL) 10 mg tablet Take 1 tablet by mouth once daily. - BIOTIN ORAL Take by mouth. - cholecalciferol (VITAMIN D3) 2,000 unit tablet Take 1 tablet by mouth once daily. - ferrous sulfate (IRON ORAL) Take by mouth. - levETIRAcetam XR (KEPPRA XR) 500 mg 24 hr tablet Take 500 mg each morning and 1000 mg evening. - ALPRAZolam (XANAX) 2 mg tablet Take 2 mg by mouth twice daily. 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* HIRSUTISM [L68.0] Class 3 severe obesity due to excess calories w* ABSCESS ABDOMINAL WALL [L03.319, L02.219] 05/30/2005 04/14/2009 Bipolar disorder, unspecified (HCC) [F31.9] 03/31/2006 03/02/2022 Other symptoms referable to back [M53.80] 11/27/2006 04/11/2018 POLYP GASTRIC [D13.1] 05/23/2008 Acute gastritis without mention of hemorrhage [*05/23/2008 04/11/2018 PCOS (Polycystic Ovarian Syndrome) [E28.2] 04/14/2009 Gonorrhea [A54.9] 03/19/2013 03/12/2020 Seizure (HCC) [R56.9] 06/01/2015 03/12/2020 Excessive and frequent menstruation with irregu*07/07/2015 07/13/2015 Morbid obesity due to excess calories (HCC) [E6*07/13/2015 03/12/2020 Encounter for medical examination to establish *03/02/2022 Depression [F32.A] 03/02/2022 Encounter Status:Closed by CÉSAR LUNDBERG on 09/18/23 [facility] CNOVdenise 08-25-2023 CNOV Office Visit (FRFHWS) JOSSE WAYNE ([id number]) 1985 F Date Time Provider Department 08/25/23 1:30 PM ANTHONY GARVNI V FRFHWS During your visit today, we recorded the following information about you: Makeda Blakely MA 08/25/2023 2:11 PM Signed AMB ROOMING INTAKE FLOWSHEET DATA Pain Pain Level: 6 Pain Location: Knee-Right Description: Other: See comment (popping) Duration Amount of Time: (ongoing) Frequency: Intermittent Intervention/Comfort measure: Reposition Anthony Garvin V, DO 08/25/2023 2:11 PM Signed SERVICE DATE: August 25, 2023 PCP: Palma Neri PSS Subjective Patient ID: Josse is a 38 year old female. Chief Complaint: Patient presents with: Right Knee Pain PAIN EVALUATION 08/25/2023 1354 Pain Level: 6 Pain Location: Knee-Right Description: Other: See comment popping Duration Amount of Time: -- ongoing Frequency: Intermittent Intervention/Comfort measure: Reposition HPI Patient was last seen by me for right knee pain 3 years ago. States that she has been doing okay overall but has been having increasing pain, pressure, clicking in the right knee. She did receive gel 1 injection in 2017 and states that it helped quite a bit with her symptoms and would like to consider repeating that injection. Review of Systems ACTIVE PROBLEM LIST Generalized Tonic Clonic Epilepsy (Hcc) Hirsutism Class 3 Severe Obesity Due to Excess Calories Without Serious Comorbidity With Body Mass Index (Bmi) of 50.0 to 59.9 in Adult (Hcc) POLYP GASTRIC Pcos (Polycystic Ovarian Syndrome) Encounter for Medical Examination to Establish Care Depression PAST MEDICAL HISTORY Diagnosis Date Abdominal pain, epigastric Acute gastritis without mention of hemorrhage anxiety Benign neoplasm of stomach Bipolar disorder, unspecified (HCC) 03/31/2006 Cellulitis and abscess of trunk 05/30/2005 Depression Generalized convulsive epilepsy without mention of intractable epilepsy lamictal, since child Hirsutism Hypercholesteremia 04/2014 Infertility Obesity, unspecified Obesity Other bipolar disorders PCOS (polycystic ovarian syndrome) Seizure (HCC) PAST SURGICAL HISTORY Procedure Laterality Date EGD TRANSORAL BIOPSY SINGLE/MULTIPLE 05/23/08 PAST SURGICAL HISTORY OF 1997 RIGHT TEMPORAL LOBECTOMY AND IMPLANTATION OF IMPLANTS FAMILY HISTORY Problem Relation Age of Onset other (sudden cardiac arrest) Mother 49 passed in 2007 Cancer Maternal Grandmother Emphysema Maternal Grandmother Heart Maternal Grandfather Stroke Paternal Grandmother Cancer Paternal Grandfather Liver Heart Maternal Aunt open heart surgery Social History Tobacco Use Smoking status: Never Smokeless tobacco: Never Vaping Use Vaping Use: Never used Substance Use Topics Alcohol use: Yes Comment: rare Drug use: No ALLERGIES Allergen Reactions Atarax [Hydroxyzine] Mental Status Change Causes mental changes Phenobarbital Rash Propranolol Rash MEDICATIONS: citalopram (CELEXA) 20 mg tablet Take 20 mg by mouth once daily. citalopram hydrobromide (CELEXA) 10 mg tablet Take 10 mg by mouth once daily. BIOTIN ORAL Take by mouth. cholecalciferol (VITAMIN D3) 2,000 unit tablet Take 1 tablet by mouth once daily. levETIRAcetam XR (KEPPRA XR) 500 mg 24 hr tablet Take 500 mg each morning and 1000 mg evening. (Patient taking differently: 1,000 mg two times a day. Take 500 mg each morning and 1000 mg evening.) ALPRAZolam (XANAX) 2 mg tablet Take 2 mg by mouth twice daily. 2 mg am 2mg noon 1 mg bedtime benzonatate (TESSALON PERLES) 100 mg capsule Take 1 capsule by mouth three times a day as needed. (Patient not taking: Reported on 05/10/2023) loratadine (CLARITIN) 10 mg tablet Take 1 tablet by mouth once daily. (Patient not taking: Reported on 04/26/2023) metFORMIN (GLUCOPHAGE) 500 mg tablet Take 500 mg by mouth three times daily. (Patient not taking: Reported on 04/26/2023) propranolol (INDERAL) 10 mg tablet Take 1 tablet by mouth once daily. (Patient not taking: Reported on 06/07/2022) ferrous sulfate (IRON ORAL) Take by mouth. (Patient not taking: Reported on 08/25/2023) Allergies, medications, past surgical history, family history and past medical history were reviewed per this encounter. Objective Ortho Exam 38-year-old female in no acute distress, alert pleasant and cooperative with examination Dilation of the right knee shows no significant effusion. There is tenderness with palpation over the lateral joint line and lateral patellofemoral space. Genu recurvatum is noted. There is discomfort with flexion and lateral Cooper. X-ray shows progression of tricompartmental arthritis of the right Assessment/Plan ASSESSMENT Diagnosis Osteoarthritis right knee No orders found for this visit on 08/25/23. PLAN Patient has received significant symptom rel (more content not included)... Normal [facility] CNPNon 08-25-2023 CNPN Telephone (ORTHWS) JOSSE WAYNE ([id number]) 1985 F Date Time Provider Department 08/25/23 ANTHONY GARVIN V ORTHWS During your visit today, we recorded the following information about you: Makeda Blakely MA 08/25/2023 2:53 PM Signed Referral placed for Gel One injection x 1 into right knee. Makeda Blakely MA 09/07/2023 10:54 AM Signed Referral still pending with insurance. Makeda Blakely MA 09/19/2023 11:56 AM Signed === PHARMACY TEAM ==== ADDITIONAL INFORMATION NEEDED/REQUESTED Case Submitted: No Request Type: Provider Date of Service: tbs Additional Information Needed: per payer policy pt must have trail/failure of the following: Pt/hep Nsiads, And CSI. Please advise if pt has completed the above. Thank you. Request from Payor by: N/A Email Sent to: ANTHONY GARVIN V Requested Clinicals/Informatio n Sent: N/A Was this already addressed? Makeda Blakely MA 09/27/2023 4:04 PM Signed I called and left a message for the patient to contact the office. No cortisone injections given in the right knee. No documented PT since 2016 at [facility]. No NSAID use documented since 2020. Makeda Blakely MA 09/27/2023 4:18 PM Signed Patient returned call. She has not done any treatment for her knee outside of [facility]. Patient declines a cortisone injection as she does not like steroid use. She is willing to try NSAID (send to [facility] [place]) and PT. Please place orders. Notify patient once completed. Allergies As of Date: 08/25/2023 Noted Allergy Reaction ATARAX (HYDROXYZINE) 04/26/2023 1 - Mental Status Change Comments: Causes mental changes PHENOBARBITAL 09/12/2006 2 - Rash PROPRANOLOL 08/20/2022 2 - Rash Date Reviewed: 08/25/2023 Reviewed by: Makeda Blakely MA - Fully Assessed Reason for Visit: Gel One referral [Other] Primary Visit Diagnosis:Primary osteoarthritis of both knees [M17.0] Order(s):meloxicam (MOBIC) 15 mg tabletTake 1 tablet by mouth once daily.Disp: 30 tabletRfl: 3 Prescriptions as of 10/10/2023 - meloxicam (MOBIC) 15 mg tablet Take 1 tablet by mouth once daily. - benzonatate (TESSALON PERLES) 100 mg capsule Take 1 capsule by mouth three times a day as needed. - loratadine (CLARITIN) 10 mg tablet Take 1 tablet by mouth once daily. - citalopram (CELEXA) 20 mg tablet Take 20 mg by mouth once daily. - citalopram hydrobromide (CELEXA) 10 mg tablet Take 10 mg by mouth once daily. - metFORMIN (GLUCOPHAGE) 500 mg tablet Take 500 mg by mouth three times daily. - propranolol (INDERAL) 10 mg tablet Take 1 tablet by mouth once daily. - BIOTIN ORAL Take by mouth. - cholecalciferol (VITAMIN D3) 2,000 unit tablet Take 1 tablet by mouth once daily. - ferrous sulfate (IRON ORAL) Take by mouth. - levETIRAcetam XR (KEPPRA XR) 500 mg 24 hr tablet Take 500 mg each morning and 1000 mg evening. - ALPRAZolam (XANAX) 2 mg tablet Take 2 mg by mouth twice daily. 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* HIRSUTISM [L68.0] Class 3 severe obesity due to excess calories w* ABSCESS ABDOMINAL WALL [L03.319, L02.219] 05/30/2005 04/14/2009 Bipolar disorder, unspecified (HCC) [F31.9] 03/31/2006 03/02/2022 Other symptoms referable to back [M53.80] 11/27/2006 04/11/2018 POLYP GASTRIC [D13.1] 05/23/2008 Acute gastritis without mention of hemorrhage [*05/23/2008 04/11/2018 PCOS (Polycystic Ovarian Syndrome) [E28.2] 04/14/2009 Gonorrhea [A54.9] 03/19/2013 03/12/2020 Seizure (HCC) [R56.9] 06/01/2015 03/12/2020 Excessive and frequent menstruation with irregu*07/07/2015 07/13/2015 Morbid obesity due to excess calories (HCC) [E6*07/13/2015 03/12/2020 Encounter for medical examination to establish *03/02/2022 Depression [F32.A] 03/02/2022 Prescriptions ordered this encounter Disp Refills Start End MELOXICAM 15 MG TABLET 30 t* 3 09/28/2023 Route: ORAL Sig: Take 1 tablet by mouth once daily. Encounter Status:Closed by ANTHONY GARVIN V on 09/28/23 Normal [facility] XR KNEE 4V AP/PA BOTH+LAT/ME R RTon 08-25-2023 XR KNEE 4V AP/PA BOTH+LAT/RICARDO RT * * *Final Report* * * DATE OF EXAM: Aug 25 2023 1:48PM [id number] [id number] - XR KNEE 4V AP/PA BOTH+LAT/RICARDO RT / PROCEDURE REASON: Right knee pain, unspecified chronicity * * * * Physician Interpretation * * * * EXAMINATION: XR KNEE 4V AP/PA BOTH+LAT/RICARDO RT CLINICAL HISTORY: Right knee pain Technique: XR KNEE 4V AP/PA BOTH+LAT/RICARDO RT -- RIGHT with 4 views on 5 images Comparison: X-ray right knee 10/20/2020 RESULT: [id number] medial and lateral compartment joint space narrowing with marginal osteophytes. No acute fracture or dislocation. IMPRESSION: No acute osseous abnormality. Degenerative disease of the right knee. Shop Girl: FABIANO Transcribe Date/Time: Aug 31 2023 3:24P Dictated by : JEFFREY HENRIQUEZ MD This examination was interpreted and the report reviewed and electronically signed by: JEFFREY HENRIQUEZ MD on Aug 31 2023 3:26PM EST [id number] CN [facility] 36on 06-26-2023 36 Noted. [facility] 36 Pt returned call. Message released to patient as written. FRANCO Cota CNP 06/26/23 7:51 AM Note Please let pt know that her Keppra level is good! Patient's further questions if applicable: None Were all questions from office addressed or relayed to the patient from encounter: Yes [facility] 36 Call to patient. Lm on to call the office. Please inform patient of provider's message below. Thank you. [facility] 36 Please let pt know that her Keppra level is good! [facility] Office Visiton 06-21-2023 Follow-up visit [id number] ToneJosse Malachi 1985 F Date Provider Department Center 06/21/2023 [id number] ROBERTSON [facility] None Family History Problem Relation Age of Onset Heart attack Maternal Grandfather Family Status - Relation Status Age at Maternal Grandfather Father Alive Mother Notes: cardiac arrest Level of Service:79004 [place] OFFICE/OUTPATIENT ESTABLISHED LOW MDM 20 MIN Reason for Visit and Comments: Follow-up [826733] Seizures [97] [facility] PATINSon 06-21-2023 PATINS Continue Keppra 1000mg twice daily Check level Follow up in April [facility] Progress Noteon 06-21-2023 Progress Note Visit type: Established Patient Reason for Visit: Follow-up and Seizures Assessment and Plan 1. 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 She had a lobectomy at age 12. Seizures returned in 2007 EEG 07/25-intermittent slowing focal slowing in right temporal region Keppra 1000mg bid Level=13.2 She reports no seizures Last seizure was in 2013 She is working for [employer] for [employer] with plans to build a home She is driving Following with Psychiatry REVIEW OF SYSTEMS: Review of Systems Constitutional: Negative. HENT: Negative. Eyes: Negative. Respiratory: Negative. Cardiovascular: Negative. Gastrointestinal: Negative. Endocrine: Negative. Genitourinary: Negative. Musculoskeletal: Negative. Skin: Negative. Allergic/Immunologic : Negative. Neurological: Negative. Hematological: Negative. Psychiatric/Behavior al: The patient is nervous/anxious. Allergies Allergen Reactions Hydroxyzine Other Causes mental changes Phenobarbital Rash Other reaction(s): Other (See Comments), Unknown Propanediol Rash Propranolol Rash Outpatient Medications Prior to Visit Medication Sig Dispense Refill ALPRAZolam (Xanax) 1 MG tablet Take 1 mg by mouth Nightly. ALPRAZolam (Xanax) 2 MG tablet alprazolam 2 mg tablet TAKE 1 TABLET BY MOUTH TWICE DAILY Cholecalciferol (Vitamin D) 125 MCG (5000 UT) capsule Take by mouth 2 times daily. citalopram (CeleXA) 10 MG tablet take 1 tablet by oral route every day levETIRAcetam (Keppra) 1000 MG tablet TAKE 1 TABLET BY MOUTH TWICE DAILY 60 tablet 3 citalopram (CeleXA) 20 MG tablet TAKE 1.5 TABLETS BY MOUTH EVERY DAY ferrous sulfate 325 (65 Fe) MG tablet Take 325 mg by mouth daily (with breakfast). No facility-administere d medications prior to visit. Past Medical History: Diagnosis Date Anxiety Depression Epilepsia (HCC) PCOS (polycystic ovarian syndrome) PTSD (post-traumatic stress disorder) Social History Tobacco Use Smoking status: Never Smokeless tobacco: Never Substance Use Topics Alcohol use: Not Currently Past Surgical History: Procedure Laterality Date BRAIN SURGERY 1997 Family History Problem Relation Name Age of Onset Heart attack Maternal Grandfather Objective Vitals: BP 118/79 (BP Location: Right arm, Patient Position: Sitting, BP Cuff Size: Large adult) Pulse 89 Ht 5' 4 (1.626 m) Wt (!) 322 lb 6.4 oz (146 kg) BMI 55.34 kg/m? General Appearance: Patient is in no apparent distress. Head is normocephalic, atraumatic Cardiovascular: Regular rate and rhythm. No heart murmurs. No carotid bruit Neurologic: Mentation: Alert and oriented x [address], [address] and time. Speech and Language: Speech and language normal Concentration and Attention: Concentration normal Memory: Memory normal Fund of Knowledge: Fund of knowledge normal Cranial Nerves: II, III, IV, V, , VII, VIII, IX, X, XI, XII examined and were intact. Motor: Strength: Strength 5 out of 5 with normal tone Alternating Movements: Normal Cogwheel Rigidity: None Tone: Tone is normal Tremor / Involuntary Movements: None Deep Tendon Reflexes: 1 out of 4 symmetrical in all four limbs. Sensory: Normal sensation upper and lower extremities Coordination: Normal coordination upper and lower extremities Gait and Station: Station is normal. Gait is normal Data Reviewed and Summarized DIAGNOSTIC TESTING CBC: No results found for: WBC , RBC , HGB , HCT , MCV , MCH , MCHC , RDW , PLT , MPV CMP: Lab Results Component Value Date GLUCOSE 97 10/28/2020 BMP: Lab Results Component Value Date GLUCOSE 97 10/28/2020 PT/INR: No results found for: PROTIME , INR PTT: No results found for: APTT , PTT [APTT} FLP: No results found for: CHLPL , TRIG , HDL , LDLCALC , LDLDIRECT TSH: Lab Results Component Value Date TSH 0.531 10/28/2020 VITAMIN B12: No results found for: [id number] No results found for: PHENYTOIN , PHENOBARB , VALPROATE , CBMZ No components found for: TOPIRA @RESULTINGLABINFO@ No results found for: LEVETIRACETA , FERRITIN , CRP , SUKHDEV , ANCA No results found for: REGLA , IMMUNOGLOBUL , OLIGOBANDS No results found for: XEC75KC , HEPCAB No results found for: CRP , ANATITER , ANCA FERRITIN: No results found for: FERRITIN ---- US NON OB TRANSVAGINAL Narrative: Gynecological Report (Signed Final 01/07/2021 01:43 pm) Patient Info ID #: [id number] : [birth year] (35 yrs)(F) Name: JOSSE WAYNE Visit Date: 01/06/2021 01:12 pm Performed By Attending: Yessi Location: [facility] Performed By: Bel Lemos Visit Type: [facility] Referred By: YESSI MUNOZ Service(s) Provided (more content not included)... [facility] CNOVon 05-10-2023 [facility] Office Visit (UCWSTR) JOSSE WAYNE ([id number]) 1985 F Date Time Provider Department 05/10/23 8:45 AM SURJIT ORDONEZ [facility] During your visit today, we recorded the following information about you: Temperature Pulse Respiration Blood pressure 97.8 degrees 88/minute 21/minute 124/88 Weight 145.1 kg Surjit Ordonez MD 05/10/2023 9:47 AM Signed Patient presents with: Sore Throat: Left ear pain x 1 week Bump on back of right leg, possible infected hair x 1 year HPI: Feeling return of sore throat and earache for 1 week. Positive symptoms: Sore throat, left Earache, dry Cough, some clear rhinorrhea Negative symptoms: Sinus pressure, Fever, OTC: Nyquil, Dayquil. Prescribed augmentin for sinobronchitis and left otitis media 2 weeks ago. Saw her PCP for a papule on her right posterior, inner thigh last May and prescribed an antibiotic. The bump did not go away. MEDICATIONS: Current Outpatient Medications Medication Sig citalopram (CELEXA) 20 mg tablet Take 20 mg by mouth once daily. citalopram hydrobromide (CELEXA) 10 mg tablet Take 10 mg by mouth once daily. BIOTIN ORAL Take by mouth. cholecalciferol (VITAMIN D3) 2,000 unit tablet Take 1 tablet by mouth once daily. ferrous sulfate (IRON ORAL) Take by mouth. levETIRAcetam XR (KEPPRA XR) 500 mg 24 hr tablet Take 500 mg each morning and 1000 mg evening. (Patient taking differently: 1,000 mg two times a day. Take 500 mg each morning and 1000 mg evening.) ALPRAZolam (XANAX) 2 mg tablet Take 2 mg by mouth twice daily. 2 mg am 2mg noon 1 mg bedtime benzonatate (TESSALON PERLES) 100 mg capsule Take 1 capsule by mouth three times a day as needed. (Patient not taking: Reported on 05/10/2023) loratadine (CLARITIN) 10 mg tablet Take 1 tablet by mouth once daily. (Patient not taking: Reported on 04/26/2023) metFORMIN (GLUCOPHAGE) 500 mg tablet Take 500 mg by mouth three times daily. (Patient not taking: Reported on 04/26/2023) propranolol (INDERAL) 10 mg tablet Take 1 tablet by mouth once daily. (Patient not taking: Reported on 06/07/2022) No current facility-administere d medications for this visit. ALLERGIES: ALLERGIES Allergen Reactions Atarax [Hydroxyzine] Mental Status Change Causes mental changes Phenobarbital Rash Propranolol Rash VITALS: BP 124/88 Pulse 88 Temp 36.6 ?C (97.8 ?F) Resp 21 Wt (!) 145.1 kg (319 lb 12.8 oz) LMP 08/11/2021 (Exact Date) SpO2 99% BMI 54.89 kg/m? PHYSICAL EXAM: GEN: mildly ill appearing, hirsutism HEENT: PERRL, EOMI, conjunctiva clear Ears: canals clear. TMs without erythema, bulge, or effusion Sinuses: non-tender frontal sinus, non-tender maxillary sinuses Throat: moist mucous membranes, mild erythema, 2+/4 left tonsil, no exudate Neck: supple, no thyromegaly, no lymphadenopathy HEART: regular rate and rhythm, no murmurs LUNGS: clear to auscultation, no wheezes or crackles, no increased WOB SKIN: photos of papule on right posterior inner thigh ASSESSMENT/PLAN: 1. Sore throat - ICD9: 462, ICD10: J02.9 (primary diagnosis) - STREP A MOLECULAR (POC) - negative. Benign ear exam. - suspect viral pharyngitis with referred left ear pain. - Discussed supportive care treatment with rest, cold medicine, and analgesia. 2. Papule of skin - ICD9: 709.8, ICD10: R23.8 Follow up with PCP, dermatology, or general surgery for thigh papule present for the last year. She sees a continuous still operator so will follow up at [facility]. Surjit Ordonez MD Allergies As of Date: 05/10/2023 Noted Allergy Reaction ATARAX (HYDROXYZINE) 04/26/2023 1 - Mental Status Change Comments: Causes mental changes PHENOBARBITAL 09/12/2006 2 - Rash PROPRANOLOL 08/20/2022 2 - Rash Date Reviewed: 05/10/2023 Reviewed by: Ifrah Perez MA - Fully Assessed Reason for Visit: Sore Throat [200] Cmt: Left ear pain x 1 week Bump on back of right leg, possible infected hair x 1 year Primary Visit Diagnosis:Sore throat [J02.9] Other Visit Diagnosis:Papule of skin [R23.8] Order(s):STREP A MOLECULAR (POC) [[id number]] Order #: [id number]. #:[id number] Prescriptions as of 05/10/2023 - benzonatate (TESSALON PERLES) 100 mg capsule Take 1 capsule by mouth three times a day as needed. - loratadine (CLARITIN) 10 mg tablet Take 1 tablet by mouth once daily. - citalopram (CELEXA) 20 mg tablet Take 20 mg by mouth once daily. - citalopram hydrobromide (CELEXA) 10 mg tablet Take 10 mg by mouth once daily. - metFORMIN (GLUCOPHAGE) 500 mg tablet Take 500 mg by mouth three times daily. - propranolol (INDERAL) 10 mg tablet Take 1 tablet by mouth once daily. - BIOTIN ORAL Take by mouth. - cholecalciferol (VITAMIN D3) 2,000 unit tablet Take 1 tablet by mouth once daily. - ferrous sulfate (IRON ORAL) Take by mouth. - levETIRAcetam XR (KEPPRA XR) 500 mg 24 hr tablet Take 500 mg eac (more content not included)... Normal [facility] STREP A MOLECULAR (POC)on Procedural Control Valid [facility] Strep A (POCT) Negative Negative [facility] CNOVon 04-26-2023 CNOV Office Visit (WSTR) JOSSE WAYNE ([id number]) 1985 F Date Time Provider Department 04/26/23 4:15 PM PRINCESS PAT [facility] During your visit today, we recorded the following information about you: Temperature Pulse Respiration Blood pressure 97.9 degrees 76/minute 18/minute 138/82 Weight 144.2 kg Prnicess aPt, ERVIN 04/26/2023 4:38 PM Signed This note was created using [employer]. Subjective Josse Wayne is a 37 year old female. HPI 37-year-old female presents for sinus congestion, sinus pressure, cough x 2 weeks. Patient states that she started getting sick at the beginning of April with nasal congestion, and cough. She states that she now has worsening sinus pressure. She is coughing up some phlegm. States she has been taking [id number] cough and cold medications with minimal improvement. She states about 5 days ago she started getting left ear pain. No drainage from the ears. She has not had any fevers. No vomiting or diarrhea. No chest pain or shortness of breath. No sick contacts. 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 citalopram hydrobromide (CELEXA) 10 mg tablet Take 10 mg by mouth once daily. BIOTIN ORAL Take by mouth. cholecalciferol (VITAMIN D3) 2,000 unit tablet Take 1 tablet by mouth once daily. ferrous sulfate (IRON ORAL) Take by mouth. levETIRAcetam XR (KEPPRA XR) 500 mg 24 hr tablet Take 500 mg each morning and 1000 mg evening. (Patient taking differently: 1,000 mg two times a day. Take 500 mg each morning and 1000 mg evening.) ALPRAZolam (XANAX) 2 mg tablet Take 2 mg by mouth twice daily. 2 mg am 2mg noon 1 mg bedtime amoxicillin-clavulan ate potassium (AUGMENTIN) 875-125 mg per tablet Take 1 tablet by mouth two times a day for 7 days. benzonatate (TESSALON PERLES) 100 mg capsule Take 1 capsule by mouth three times a day as needed. loratadine (CLARITIN) 10 mg tablet Take 1 tablet by mouth once daily. (Patient not taking: Reported on 04/26/2023) metFORMIN (GLUCOPHAGE) 500 mg tablet Take 500 mg by mouth three times daily. (Patient not taking: Reported on 04/26/2023) propranolol (INDERAL) 10 mg tablet Take 1 tablet by mouth once daily. (Patient not taking: Reported on 06/07/2022) FAMILY HISTORY Problem Relation Age of Onset other (sudden cardiac arrest) Mother 49 passed in 2007 Cancer Maternal Grandmother Emphysema Maternal Grandmother Heart Maternal Grandfather Stroke Paternal Grandmother Cancer Paternal Grandfather Liver Heart Maternal Aunt open heart surgery Social History Tobacco Use Smoking status: Never Smokeless tobacco: Never Vaping Use Vaping Use: Never used Substance Use Topics Alcohol use: Yes Comment: rare Drug use: No Review of Systems Constitutional: Negative for chills and fever. HENT: Positive for congestion, ear pain, sinus pressure, sinus pain and sore throat. Respiratory: Positive for cough. Negative for shortness of breath. Cardiovascular: Negative for chest pain. Gastrointestinal: Negative for diarrhea and vomiting. Objective BP 138/82 Pulse 76 Temp 36.6 ?C (97.9 ?F) (Tympanic) Resp 18 Wt (!) 144.2 kg (318 lb) LMP 08/11/2021 (Exact Date) SpO2 98% BMI 54.58 kg/m? Physical Exam Vitals and nursing note reviewed. Constitutional: General: She is not in acute distress. Appearance: Normal appearance. She is not toxic-appearing. HENT: Right Ear: Tympanic membrane and ear canal normal. Left Ear: Ear canal normal. A middle ear effusion is present. Tympanic membrane is erythematous. Nose: Congestion present. Right Sinus: Maxillary sinus tenderness present. Left Sinus: Maxillary sinus tenderness present. Mouth/Throat: Mouth: Mucous membranes are moist. Pharynx: Uvula midline. Posterior oropharyngeal erythema present. No oropharyngeal exudate. Tonsils: No tonsillar exudate. 2+ on the right. 2+ on the left. Eyes: Conjunctiva/sclera: Conjunctivae normal. Cardiovascular: Rate and Rhythm: Normal rate and regular rhythm. Pulmonary: Effort: Pulmonary effort is normal. Breath sounds: (more content not included)... Normal [facility] 36on 04-18-2023 36 Last ov- 07/08/22 Next ov- 07/11/23 [facility] (AGINTMLW) JOSSE WAYNE ([id number]) 1985 F Date Time Provider Department 03/02/22 2:40 PM GABE PIERRE During your visit today, we recorded the following information about you: Temperature Pulse Respiration Blood pressure 98.2 degrees 82/minute 24/minute 110/78 Weight Height 139.7 kg 1.626 m Gabe Pierre APRN.LIFE INSURANCE UNDERWRITER 03/02/2022 3:39 PM Signed This note was created using NoteWriter. Subjective Josse Gayle Tone is a 36 year old female here today to establish care. PMH PTSD, PCOS, obesity, hirsutism, epilepsy. Former PCP Dr Vazquez in [place]. Anxiety, Depression, PTSD: chronic, stable. She is seeing psychiatrist at [facility]. She is taking Celexa 30 mg daily, xanax and propanolol daily for this. Reports she has been on xanax since 2007. Reports being on propranolol almost a year now. Reports she feels her symptoms are better controlled. Epilepsy: Dx 1 yo, 1986. She reports she had brain surgery in 1997 due to frequent seizures. Reports she was told her surgery would only last 10 yr. She was then started on Keppra in 2008 due to increase seizure. She is taking Keppra 1000 mg twice daily. She is seeing Dr Anderson Pedroza in [place]. Reports last seizure 2012. Reports her keppra was recently was increased. PCOS: chronic, she is seeing Dr Yessi Vann. She is taking metformin 500 mg 3 times a day. Reports she has been on this for about 2 yrs. Face rash: reports on going rash on face. Reports she has tried many lotions, including antifungal, steroid, antibiotics and nothing has worked. This has been ongoing since June Preventative: declines flu and COVID vaccines. She follows up with [facility] regularly. ALLERGIES Allergen Reactions Phenobarbital Rash Current Outpatient Medications Medication Sig Dispense Refill citalopram (CELEXA) 20 mg tablet Take 20 mg by mouth once daily. citalopram hydrobromide (CELEXA) 10 mg tablet Take 10 mg by mouth once daily. metFORMIN (GLUCOPHAGE) 500 mg tablet Take 500 mg by mouth three times daily. propranolol (INDERAL) 10 mg tablet Take 1 tablet by mouth once daily. BIOTIN ORAL Take by mouth. cholecalciferol (VITAMIN D3) 2,000 unit tablet Take 1 tablet by mouth once daily. 90 tablet 3 ferrous sulfate (IRON ORAL) Take by mouth. levETIRAcetam XR (KEPPRA XR) 500 mg 24 hr tablet Take 500 mg each morning and 1000 mg evening. (Patient taking differently: 1,000 mg twice daily. Take 500 mg each morning and 1000 mg evening.) ALPRAZolam (XANAX) 2 mg tablet Take 2 mg by mouth twice daily. 2 mg am 2mg noon 1 mg bedtime No current facility-administere d medications for this visit. 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, since child Hirsutism Hypercholesteremia 04/2014 Infertility Obesity, unspecified Obesity Other bipolar disorders PCOS (polycystic ovarian syndrome) Seizure (HCC) PAST SURGICAL HISTORY Procedure Laterality Date EGD TRANSORAL BIOPSY SINGLE/MULTIPLE 05/23/08 PAST SURGICAL HISTORY OF 1997 RIGHT TEMPORAL LOBECTOMY AND IMPLANTATION OF IMPLANTS Social History Tobacco Use Smoking status: Never Smokeless tobacco: Never Vaping Use Vaping Use: Never used Substance Use Topics Alcohol use: Yes Comment: rare Drug use: No Family History Problem Relation Age of Onset other (sudden cardiac arrest) Mother 49 passed in 2007 Cancer Maternal Grandmother Emphysema Maternal Grandmother Heart Maternal Grandfather Stroke Paternal Grandmother Cancer Paternal Grandfather Liver Heart Maternal Aunt open heart surgery Review of Systems Constitutional: Negative for activity change, appetite change, chills, diaphoresis, fatigue, fever and unexpected weight change. HENT: Negative for sore throat and trouble swallowing. Eyes: Negative for photophobia and visual disturbance. Respiratory: Negative for cough, chest tightness, shortness of breath and wheezing. Cardiovascular: Negative for chest pain, palpitations and leg swelling. Gastrointestinal: Negative for abdominal pain, blood in stool, constipation, diarrhea, nausea and vomiting. Endocrine: Negative. Genitourinary: Negative for difficulty urinating, dysuria and hematuria. Musculoskeletal: Negative for arthralgias, back pain, myalgias and neck pain. Skin: Positive for rash. Dry skin Face dr (more content not included)... Normal [facility] CNCOon 02-28-2022 CNCO Letter Text [facility] CNPSparkle 02-28-2022 ALEJANDRON Telephone (AGRenewable FundingMLW) JOSSE WAYNE ([id number]) 1985 F Date Time Provider Department 02/28/22 GABE PIERRE During your visit today, we recorded the following information about you: Blessing Amezcua MA 02/28/2022 2:39 PM Signed ----- Message from Tisha Martinez sent at 02/24/2022 1:28 PM EST ----- Regarding: FW: new pt ----- Message ----- From: Jessica Monson Sent: 02/24/2022 1:11 PM EST To: [facility] Triage Pool Subject: new pt Subject Line Format: Medicine / [Provider Name] / [Issue] Patient has been identified by name and Date of (Y/N): y Patient: Josse Wayne Date of : 1985 Provider for this encounter: No primary care provider on file. Reason for the call/escalation: pt would like a note faxed over to toni who is handling her trsanspotation for the appt would like note to say she was referred to office for appt on 03/02/22 fax [phone] jojo Was Patient Referred to 911/Seek Emergency Treatment (Y/N): n Did Patient Agree (Y/N): n Was An Attempt Made To Transfer The Patient To The Office (Y/N): n Were You Able To Reach Someone At The Office (Y/N): n If Yes - Patient Was Transferred To (Caregivers Name): n If No - Which [facility] Leadership Patch Driller Did You Speak With Regarding This Patient: n Was an appointment scheduled (Y/N): n Reason patient was requesting visit (RFV/signs and symptoms/diagnosis) : na Person calling if other than patient: na Return call to if other than patient: na Best contact number: [phone] Thank you, Jessica Monson February 24, 2022 1:09 PM Blessing Amezcua MA 02/28/2022 2:49 PM Signed Letter faxed Blessing Amezcua MA Allergies As of Date: 02/28/2022 Noted Allergy Reaction PHENOBARBITAL 09/12/2006 2 - Rash Date Reviewed: 01/21/2022 Reviewed by: Makeda Blakely Ma - Fully Assessed Reason for Visit: Appointment [186] Prescriptions as of 02/28/2022 - citalopram (CELEXA) 20 mg tablet Take 20 mg by mouth once daily. - citalopram hydrobromide (CELEXA) 10 mg tablet Take 10 mg by mouth once daily. - metFORMIN (GLUCOPHAGE) 500 mg tablet Take 500 mg by mouth three times daily. - propranolol (INDERAL) 10 mg tablet Take 1 tablet by mouth once daily. - etodolac (LODINE) 400 mg tablet Take 1 tablet by mouth twice daily. - BIOTIN ORAL Take by mouth. - cholecalciferol (VITAMIN D3) 2,000 unit tablet Take 1 tablet by mouth once daily. - ferrous sulfate (IRON ORAL) Take by mouth. - levETIRAcetam XR (KEPPRA XR) 500 mg 24 hr tablet Take 500 mg each morning and 1000 mg evening. - ALPRAZolam (XANAX) 2 mg tablet Take 2 mg by mouth twice daily. Meds Comments as of 11/27/2012: 11/27/2012: Pt is supposed to be on Metformin and Spironolactone for her PCOS Problem List As Of Date 02/28/2022 Noted Resolved GEN CONVUL EPI W/O MENTN INTRACT [G40.309] HIRSUTISM [L68.0] Class 3 severe obesity due to excess calories w* ABSCESS ABDOMINAL WALL [L03.319, L02.219] 05/30/2005 04/14/2009 BIPOLAR DISORDER NOS [F31.9] 03/31/2006 Other symptoms referable to back [M53.80] 11/27/2006 04/11/2018 POLYP GASTRIC [D13.1] 05/23/2008 Acute gastritis without mention of hemorrhage [*05/23/2008 04/11/2018 PCOS (Polycystic Ovarian Syndrome) [E28.2] 04/14/2009 Gonorrhea [A54.9] 03/19/2013 03/12/2020 Seizure (HCC) [R56.9] 06/01/2015 03/12/2020 Excessive and frequent menstruation with irregu*07/07/2015 07/13/2015 Morbid obesity due to excess calories (HCC) [E6*07/13/2015 03/12/2020 Encounter Status:Closed by BLESSING AMEZCUA on 02/28/22 [facility] Sara 02-24-2022 ALEJANDRON Telephone (AGINTMLW) JOSSE WAYNE ([id number]) 1985 F Date Time Provider Department 02/24/22 GABE PIERRE AGINTMLW During your visit today, we recorded the following information about you: Moniqeu Levine 02/24/2022 1:55 PM Signed ----- Message from Jessica Monson sent at 02/24/2022 1:05 PM EST ----- Regarding: new pt Subject Line Format: Medicine / [Provider Name] / [Issue] Patient has been identified by name and Date of (Y/N): y Patient: Josse Wayne Date of : 1985 Provider for this encounter: No primary care provider on file. Reason for the call/escalation: pt would like a note faxed over to toni who is handling her trsanspotation for the appt would like note to say she was referred to office for appt on 03/02/22 fax [phone] jojo Was Patient Referred to [facility]/Seek Emergency Treatment (Y/N): n Did Patient Agree (Y/N): n Was An Attempt Made To Transfer The Patient To The Office (Y/N): n Were You Able To Reach Someone At The Office (Y/N): n If Yes - Patient Was Transferred To (Caregivers Name): n If No - Which [facility] Leadership Patch Driller Did You Speak With Regarding This Patient: n Was an appointment scheduled (Y/N): n Reason patient was requesting visit (RFV/signs and symptoms/diagnosis) : na Person calling if other than patient: na Return call to if other than patient: na Best contact number: [phone] Thank you, Jessica Monson February 24, 2022 1:09 PM Blessing Amezcua MA 02/28/2022 4:54 PM Signed Letter faxed Blessing Amezcua MA Allergies As of Date: 02/24/2022 Noted Allergy Reaction PHENOBARBITAL 09/12/2006 2 - Rash Date Reviewed: 01/21/2022 Reviewed by: Makeda Blakely Ma - Fully Assessed Reason for Visit: Patient Question [9867] Prescriptions as of 02/28/2022 - citalopram (CELEXA) 20 mg tablet Take 20 mg by mouth once daily. - citalopram hydrobromide (CELEXA) 10 mg tablet Take 10 mg by mouth once daily. - metFORMIN (GLUCOPHAGE) 500 mg tablet Take 500 mg by mouth three times daily. - propranolol (INDERAL) 10 mg tablet Take 1 tablet by mouth once daily. - etodolac (LODINE) 400 mg tablet Take 1 tablet by mouth twice daily. - BIOTIN ORAL Take by mouth. - cholecalciferol (VITAMIN D3) 2,000 unit tablet Take 1 tablet by mouth once daily. - ferrous sulfate (IRON ORAL) Take by mouth. - levETIRAcetam XR (KEPPRA XR) 500 mg 24 hr tablet Take 500 mg each morning and 1000 mg evening. - ALPRAZolam (XANAX) 2 mg tablet Take 2 mg by mouth twice daily. Meds Comments as of 11/27/2012: 11/27/2012: Pt is supposed to be on Metformin and Spironolactone for her PCOS Problem List As Of Date 02/24/2022 Noted Resolved GEN CONVUL EPI W/O MENTN INTRACT [G40.309] HIRSUTISM [L68.0] Class 3 severe obesity due to excess calories w* ABSCESS ABDOMINAL WALL [L03.319, L02.219] 05/30/2005 04/14/2009 BIPOLAR DISORDER NOS [F31.9] 03/31/2006 Other symptoms referable to back [M53.80] 11/27/2006 04/11/2018 POLYP GASTRIC [D13.1] 05/23/2008 Acute gastritis without mention of hemorrhage [*05/23/2008 04/11/2018 PCOS (Polycystic Ovarian Syndrome) [E28.2] 04/14/2009 Gonorrhea [A54.9] 03/19/2013 03/12/2020 Seizure (HCC) [R56.9] 06/01/2015 03/12/2020 Excessive and frequent menstruation with irregu*07/07/2015 07/13/2015 Morbid obesity due to excess calories (HCC) [E6*07/13/2015 03/12/2020 Encounter Status:Closed by BLESSING AMEZCUA on 02/28/22 [facility] Follicle Stim Hormoneon 10- Follicle Stim Hormone 2.7 m[IU]/mL Normal [facility] Comment on above: Result Comment: Females: Follicular Phase ...... 2.3-12.6 Mid-cycle Peak ........ 5.2-17.5 Luteal Phase .......... 1.7-12.9 Post-menopausal ....... 12.7-132.2 Males: 0.7-10.8 Performed By: #### F SH3 #### [facility] [address] [place] [address] Follicle Stimulating Hormone Ordered By: Yessi Munoz on 12-23-2020 FSH 2.7 m[IU]/mL [employer] Work Phone: Comment on above: Females: Follicular Phase ...... 2.3-12.6 Mid-cycle Peak ........ 5.2-17.5 Luteal Phase .......... 1.7-12.9 Post-menopausal ....... 12.7-132.2 Males: 0.7-10.8 Test Performed by [facility], [address] [place], [place], [place] [address] [employer] Work Phone: [employer] Work Phone: Insulinon 11-02-2020 Insulin 21 uIU/mL [email or web address] Comment on above: Result Comment: INTE RPRETIVE INFORMATION: Insulin, Random This test reacts on a nearly equimolar basis with the analogs insulin aspart, insulin glargine, and insulin lispro. Insulin detemir exhibits approximately 50 percent cross-reactivity. Test reactivity with insulin glulisine is negligible (< 3 percent). To convert to pmol/L, multiply uIU/mL by 6.0. The reference interval for a fasting insulin is 3-25 uIU/mL. Performed By: [facility] [address] [place] [id number] [employer]: Jovanna Núñez MD Performed By: #### D HEAO, INSO, 17HPO, TSTFO #### The performing lab is in the report. #### PRLA3 #### [facility] [address] [place] [address] #### GLUC3, TSH5 #### [facility] [address] [place] [address] Testo,Free/Total-Femaleon SHBG 33 nmol/L Normal 30-135 [facility] Comment on above: Result Comment: REFE RENCE INTERVAL: Sex Hormone Binding Globulin Access complete set of age- and/or gender-specific reference intervals for this test in the [facility] Test Directory ([employer]). Performed By: #### D HEAO, INSO, 17HPO, TSTFO #### The performing lab is in the report. #### PRLA3 #### [facility] [address] [place] [address] #### GLUC3, TSH5 #### [facility] [address] [place] [address] Testosterone [Mass/Vol] 64 ng/dL High 9-55 [facility] Comment on above: Result Comment: Tota l Testosterone, Females 18 years and older Premenopausal 9-55 ng/dL Postmenopausal 5-32 ng/dL REFERENCE INTERVAL: Testosterone, LC-MS/MS Access complete set of age- and/or gender-specific reference intervals for this test in the [facility] Test Directory ([employer]). This test was developed and its performance characteristics determined by [facility]. It has not been cleared or approved by the [place] Food and Drug Administration. This test was performed in a CLIA certified laboratory and is intended for clinical purposes. Performed By: #### D HEAO, INSO, 17HPO, TSTFO #### The performing lab is in the report. #### PRLA3 #### [facility] [address] [place] [address] #### GLUC3, TSH5 #### [facility] [address] [place] [address] Testosterone, Free 10.7 pg/mL High 1.3-9.2 [facility] Comment on above: Result Comment: To c onvert to pmol/L, multiply pg/mL by 3.47 The concentration of Free Testosterone is derived from a mathematical expression based on the constant for the binding of testosterone to sex hormone binding globulin. Testosterone, Free LC-MS/MS Reference Interval for Females 18 years and older Postmenopausal: 0.6 - 3.8 pg/mL REFERENCE INTERVAL: Testosterone, Free LC-MS/MS Access complete set of age- and/or gender-specific reference intervals for this test in the [facility] Test Directory ([employer]). This test was developed and its performance characteristics determined by [facility]. It has not been cleared or approved by the [place] Food and Drug Administration. This test was performed in a CLIA certified laboratory and is intended for clinical purposes. Performed By: [facility] [address] [place] [address] [employer]: Jovanna Núñez MD Performed By: #### Gayle MCRAE INSO, 17HPO, TSTFO #### The performing lab is in the report. #### PRLA3 #### [facility] [address] [place] [address] #### GLUC3, TSH5 #### [facility] [address] [place] [address] 17-Hydroxyprogesterone, Darrick ton 11-01-2020 17 [place] Progesterone 48.27 ng/dL Normal <=206.00 [facility] Comment on above: Result Comment: INTE RPRETIVE INFORMATION for 17-Hydroxyprogesterone in females: Follicular 15 to 70 ng/dL Luteal 35 to 290 ng/dL REFERENCE INTERVAL: 17-Hydroxyprogesterone Qnt, HPLC-MS/MS Access complete set of age- and/or gender-specific reference intervals for this test in the [facility] Test Directory ([employer]). This test was developed and its performance characteristics determined by [facility]. It has not been cleared or approved by the [place] Food and Drug Administration. This test was performed in a CLIA certified laboratory and is intended for clinical purposes. Performed By: [facility] [address] [place] [address] [employer]: Jovanna Núñez MD Performed By: #### Gayle MCRAE, INSO, 17HPO, TSTFO #### The performing lab is in the report. #### PRLA3 #### [facility] [address] [place] [address] #### GLUC3, TSH5 #### [facility] [address] [place] [address] DHEA SO4on 10-31-2020 DHEA SO4 241 ug/dL Normal 45-270 [facility] Comment on above: Result Comment: REFE RENCE INTERVAL: DHEAS Access complete set of age- and/or gender-specific reference intervals for this test in the [facility] Test Directory ([employer]). Performed By: [facility] [address] [place] [address] [employer]: Jovanna Núñez MD Performed By: #### D HEAO, INSO, 17HPO, TSTFO #### The performing lab is in the report. #### PRLA3 #### [facility] [address] [place] [address] #### GLUC3, TSH5 #### [facility] [address] [place] [address] Glucoseon 10-28-2020 Glucose [Mass/Vol] 97 mg/dL Normal 70-100 [facility] Comment on above: Performed By: #### D HEAO, INSO, 17HPO, TSTFO #### The performing lab is in the report. #### PRLA3 #### [facility] [address] [place] [address] #### GLUC3, TSH5 #### [facility] [address] [place] [address] GlucoseOrdered By: Yessi madison on 10-28-2020 Glucose [Mass/Vol] 97 mg/dL 70 - 100 mg/dL [facility] Work Phone: Test Performed by [facility], [address]. , [address] Work Phone: [facility] Work Phone: Prolactinon 10-28-2020 Prolactin 8.0 ng/mL Normal 2.8-27.0 [facility] Comment on above: Result Comment: Valu es below 35 ng/mL may be of doubtful significance. Recommend send-out testing to rule out macroprolactin to confirm the result. Performed By: #### D HEAO, INSO, 17HPO, TSTFO #### The performing lab is in the report. #### PRLA3 #### [facility] [address] [place] [address] #### GLUC3, TSH5 #### [facility] [address] [place] [address] ProlactinOrdered By: Yessi Munoz on 10-28-2020 Prolactin 8 ng/mL 2.8 - 27.0 ng/mL [facility] Work Phone: Comment on above: Values below 35 ng/m L may be of doubtful significance. Recommend send-out testing to rule out macroprolactin to confirm the result. Test Performed by [email or web address], [address] [place], [place] [address] [employer] Work Phone: [employer] Work Phone: TSH without ReflexOrdered By : Yessi Munoz on 10-28-2020 TSH Qn 0.531 u[IU]/mL 0.465 - 4.680 u[IU]/mL [facility] Work Phone: Test Performed by [email or web address], [address] [facility]. , [place] [address] [employer] Work Phone: [facility] Work Phone: Thyroid Stim. Hormoneon 10-11 Thyroid Stim. Hormone 0.531 u[IU]/mL Normal 0.465-4.680 [facility] [employer] Comment on above: Performed By: #### D HEAO, INSO, 17HPO, TSTFO #### The performing lab is in the report. #### [id number] #### [facility] [address] [place] [address] #### GLUC3, TSH5 #### [facility] [address] [facility] [place] [address] XR Knee - right 4 Viewson IMPRESSION: No acute fracture or dislocation. Shop Girl: FABIANO Transcribe Date/Time: Oct 20 2020 5:59P Dictated by : CRISTAL TOWNSEND MD This examination was interpreted and the report reviewed and electronically signed by: CRISTAL TOWNSEND MD on Oct 20 2020 6:01PM [facility] DIVISION OF RADIOLOGY * * *Final Report* * * DATE OF EXAM: Oct 20 2020 5:54PM WOX 5203 - XR KNEE 4V AP/PA BOTH+LAT/RICARDO RT / PROCEDURE REASON: Right knee injury, initial encounter * * * * Physician Interpretation * * * * BILATERAL KNEE X-RAY SERIES HISTORY: Right knee injury, initial encounter TECHNIQUE: 3 views of the left knee and 4 views of the right knee COMPARISON: 09/19/2016. RESULT: No fracture, dislocation or destructive changes. Mild medial compartment degenerative changes on the right. Small intra-articular body measuring 4 mm on the right. DIVISION OF RADIOLOGY Provider, [facility] [place] - 10/20/2020 * * *Final Report* * * DATE OF EXAM: Oct 20 2020 5:54PM WOX 5203 - XR KNEE 4V AP/PA BOTH+LAT/RICARDO RT / PROCEDURE REASON: Right knee injury, initial encounter * * * * Physician Interpretation * * * * BILATERAL KNEE X-RAY SERIES HISTORY: Right knee injury, initial encounter TECHNIQUE: 3 views of the left knee and 4 views of the right knee COMPARISON: 09/19/2016. RESULT: No fracture, dislocation or destructive changes. Mild medial compartment degenerative changes on the right. Small intra-articular body measuring 4 mm on the right. IMPRESSION IMPRESSION: No acute fracture or dislocation. Shop Girl: [facility] Transcribe Date/Time: Oct 20 2020 5:59P Dictated by : CRISTAL TOWNSEND MD This examination was interpreted and the report reviewed and electronically signed by: CRISTAL TOWNSEND MD on Oct 20 2020 6:01PM EST [facility] Radiology Study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 procedure Anthony Garvin DO Work Phone: [facility] [place] Comment on above: Osteoarthritis of ri ght knee, unspecified osteoarthritis type (Primary Dx) Start: 08-25-2023 End: 08-25-2023 ambulatory ANTHONY GARVIN V Facility:[facility] Start: 08-25-2023 End: 08-25-2023 Subsequent hospital visit by physician [facility] Work Phone: Radiology Comment on above: Right knee pain, uns pecified chronicity [M25.561] Start: 08-15-2023 Orders Only Anthony Bharathi Cowart Work Phone: Orthopaedics Comment on above: Right knee pain, uns pecified chronicity (Primary Dx) Start: 06-21-2023 End: 06-21-2023 Office outpatient visit 15 minutes Demetrius Robertson INFORMATION TECHNOLOGY COORDINATOR - LIFE INSURANCE UNDERWRITER Work Phone: [facility] Comment on above: 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, not intractable, without status epilepticus (HCC) (Primary Dx) Start: 06-21-2023 End: 06-21-2023 ambulatory DEMETRIUS RITA [facility] Start: 05-10-2023 End: 05-10-2023 ambulatory GABE PIERRE Facility:[facility] Start: 05-10-2023 End: 05-10-2023 Patient encounter procedure Surjit Ordonez MD Work Phone: [facility] Comment on above: Sore throat (Primary Dx); Papule of skin Start: 04-26-2023 End: 04-26-2023 ambulatory GABE PIERRE Facility:[facility] Start: 04-26-2023 End: 04-26-2023 Patient encounter procedure Princess MUELLER Work Phone: [facility] Comment on above: Sinobronchitis (Prim teresa Dx); Acute otitis media, left Start: 04-17-2023 Refill Demetrius sanchez INFORMATION TECHNOLOGY COORDINATOR - LIFE INSURANCE UNDERWRITER Work Phone: [facility] Start: 02-14-2023 ambulatory Octavio Linn MA [facility] [place] Comment on above: Population Health Na vigation Outreach ([place] Nazario Member- Chart review) Start: 11-29-2022 Refill Demetrius sanchez INFORMATION TECHNOLOGY COORDINATOR - LIFE INSURANCE UNDERWRITER Work Phone: [facility] Start: 09-05-2022 ambulatory Gabe chiang INFORMATION TECHNOLOGY COORDINATOR.LIFE INSURANCE UNDERWRITER Work Phone: [facility] Start: 07-22-2022 ambulatory Gabe chiang APRN.LIFE INSURANCE UNDERWRITER Work Phone: [employer] Comment on above: Allied Health Visit (Medication Adherence Outreach/) Start: 07-13-2022 Telephone encounter Anderson soni MD Work Phone: [facility] Comment on above: Lab work ; Release o f Information Start: 07-08-2022 End: 07-08-2022 Office outpatient visit 15 minutes Demetrius Robertson APRN - LIFE INSURANCE UNDERWRITER Work Phone: [facility] Comment on above: 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, not intractable, without status epilepticus (HCC) (Primary Dx) Start: 07-01-2022 ambulatory Gabe chiang APRN.LIFE INSURANCE UNDERWRITER Work Phone: [employer] Comment on above: Allied Health Visit (Medication Adherence Outreach/) Start: 06-07-2022 End: 06-07-2022 Patient encounter procedure Senait Barron APRN.LIFE INSURANCE UNDERWRITER Work Phone: [facility] Comment on above: Rhinosinusitis (Prim teresa Dx) Start: 03-02-2022 Encounter for genera l adult medical examination without abnormal findings GABEDWAINE PIERRE [facility] Start: 03-02-2022 End: 03-02-2022 ambulatory GABE PIERRE Facility:[facility] Start: 03-02-2022 End: 03-02-2022 Patient encounter procedure Gabe Pierre APRN.LIFE INSURANCE UNDERWRITER Work Phone: [facility] Comment on above: Encounter for medica l examination to establish care (Primary Dx); Rash of face; Moderate episode of recurrent major depressive disorder (HCC); PCOS (polycystic ovarian syndrome); Generalized tonic clonic epilepsy (HCC) Start: 03-02-2022 End: 03-02-2022 Patient encounter status Gabe Pierre APRN.LIFE INSURANCE UNDERWRITER Work Phone: [facility] Start: 02-28-2022 Telephone encounter Gabe Pierre APRN.LIFE INSURANCE UNDERWRITER Work Phone: [facility] Comment on above: Appointment Start: 02-24-2022 Telephone encounter Gabe Blankenship Matthew INFORMATION TECHNOLOGY COORDINATOR.LIFE INSURANCE UNDERWRITER Work Phone: [facility] Comment on above: Patient Question Start: 01-21-2022 End: 01-21-2022 Patient encounter procedure Anthony Garvin DO Work Phone: [facility] [place] Comment on above: Contusion of right l ower extremity, subsequent encounter (Primary Dx); Prepatellar bursitis, right knee Start: 09-27-2021 Telephone encounter Katerine [facility] [place]bin INFORMATION TECHNOLOGY COORDINATOR.LIFE INSURANCE UNDERWRITER Work Phone: OB/Gynecology Comment on above: Results Start: 08-05-2021 ambulatory Soha Mathew MA [facility] [place] Comment on above: Population Health Na vigation Outreach ([place] Attribution Care Gaps) Start: 07-09-2021 End: 07-09-2021 Patient encounter procedure Bela Joseph INFORMATION TECHNOLOGY COORDINATOR.LIFE INSURANCE UNDERWRITER Work Phone: [facility] Comment on above: TMJ pain dysfunction syndrome (Primary Dx) Start: 12-23-2020 End: 12-23-2020 Subsequent hospital visit by physician Yessi Munoz MD Work Phone: [facility] Comment on above: Hot flashes Start: 10-28-2020 End: 10-28-2020 Subsequent hospital visit by physician Yessi Munoz MD Work Phone: [facility] Comment on above: PCOS (polycystic ova maddison syndrome); Acute vaginitis ; Other disorders of pituitary gland (HCC) ; Other ovarian dysfunction Start: 10-20-2020 End: 10-20-2020 Subsequent hospital visit by physician [facility] Work Phone: Radiology Comment on above: Right knee injury, i nitial encounter [S89.91XA] Start: 11-17-2017 End: 11-23-2017 Evaluation and management of inpatient Byron Arriola Facility:[facility] Date Procedure Procedure Detail Performing Clinician Start: 05-10-2023 STREP A MOLECULAR (POC) Surjit Ordonez MD Work Phone: Start: 12-22-2021 Microscopic observation [Identifier] in Cervix by Cyto stain Demetrius Robertson INFORMATION TECHNOLOGY COORDINATOR - LIFE INSURANCE UNDERWRITER Work Phone: Start: 12-23-2020 Gonadotropin follicle stimulating hormone Yessi Munoz MD Work Phone: Start: 10-28-2020 Glucose quantitative blood xcpt reagent strip Yessi Munoz MD Work Phone: Start: 10-20-2020 Radiologic exam knee complete 4/more views Luisa Khoury PA-C Work Phone: Start: 01-29-2018 Adult depression screening assessment Bela Joseph INFORMATION TECHNOLOGY COORDINATOR.LIFE INSURANCE UNDERWRITER Work Phone: Start: 02-06-2017 End: 02-06-2017 Trichomonas vaginalis; Rapid Sheyla simmons MD Work Phone: Start: 02-06-2017 End: 02-06-2017 Trichomonas vaginalis; Rapid Sheyla simmons MD Work Phone: Start: 10-07-2016 End: 02-07-2017 17-Hydroxycorticosteroids [Mass/volume] in Urine Sheyla Foster MD Work Phone: Start: 10-07-2016 End: 02-07-2017 Dehydroepiandrosterone sulfate (DHEA-S) [Mass/volume] in Serum or Plasma Sheyla Foster MD Work Phone: Start: 10-07-2016 End: 02-07-2017 Testosterone Free [Mass/volume] in Serum or Plasma Sheyla Foster MD Work Phone: Start: 10-07-2016 End: 02-07-2017 Thyrotropin [Units/volume] in Serum or Plasma Sheyla Foster MD Work Phone: Start: 10-07-2016 End: 10-07-2016 Urine test visual color cmprsn meths Sheyla Foster MD Work Phone: Start: 10-07-2016 End: 02-07-2017 17-Hydroxycorticosteroids [Mass/volume] in Urine Sheyla Foster MD Work Phone: Start: 10-07-2016 End: 02-07-2017 Dehydroepiandrosterone sulfate (DHEA-S) Sheyla Foster MD Work Phone: Start: 10-07-2016 End: 02-07-2017 Testosterone Free [Mass/volume] in Serum or Plasma Sheyla Foster MD Work Phone: Start: 10-07-2016 End: 02-07-2017 Thyroid stimulating hormone (TSH) Sheyla Foster MD Work Phone: Start: 10-07-2016 End: 10-07-2016 Urine test visual color cmprsn meths Sheyla Foster MD Work Phone: Start: 10-07-2016 End: 10-07-2016 Urine, test (choriogonadotropin presence) Sheyla Foster MD Work Phone: Plan of Treatment Date Care Activity Detail Author Start: 2043 RSV Immunization aged 60 or older (1 - 1-dose 60+ series) RSV Immunization aged 60 or older (1 - 1-dose 60+ series) [facility] Start: 06-15-2033 Zoster Vaccines (1 of 2) Zoster Vaccines (1 of 2) [facility] Start: 01-30-2028 DTaP/Tdap/Td vaccine (3 - Td or Tdap) DTaP/Tdap/Td vaccine (3 - Td or Tdap) [facility] Work Phone: Start: 01-30-2028 DTaP/Tdap/Td Vaccines (3 - Td or Tdap) DTaP/Tdap/Td Vaccines (3 - Td or Tdap) [facility] Start: 01-30-2028 Urine microalbumin profile [facility] Start: 10-11-2026 HPV TESTING HPV TESTING [facility] Start: 10-11-2026 PAP TESTING PAP TESTING [facility] Start: 10-11-2026 Screening for malignant neoplasm of cervix [facility] Start: 12-22-2024 Screening for malignant neoplasm of cervix [facility] Start: 04-23-2024 End: 04-23-2024 Patient encounter procedure 04/23/2024 9:00 AM EST Office Visit [facility] [address] [place] [address] Demetrius Robertson APRN - LIFE INSURANCE UNDERWRITER [address] [place] [address] [facility] Start: 11-12-2023 Influenza vaccination [facility] Start: 08-25-2023 End: 08-25-2023 Patient encounter procedure 08/25/2023 1:30 PM EDT Office Visit [facility] [address] [place], [place] [id number] Anthony Garvin V, DO [address] [place] [address] R knee pain - wants to discuss injection [facility] Comment on above: R knee pain - wants to discuss injection Start: 07-11-2023 End: 07-11-2023 Patient encounter procedure [facility] Start: 2023 Screening for malignant neoplasm of breast [facility] Start: 03-13-2023 Medicare Advantage Annual Wellness Visit Medicare Advantage Annual Wellness Visit [facility] Start: 03-02-2023 HEPATITIS B (2 of 3 - 3-dose series) HEPATITIS B (2 of 3 - 3-dose series) [facility] Comment on above: Postponed from 11/06/1999 (Declined at t his time) Start: 03-02-2023 Hepatitis B Vaccine (2 of 3 - 3-dose series) Hepatitis B Vaccine (2 of 3 - 3-dose series) [facility] Comment on above: Postponed from 11/06/1999 (Declined at t his time) Start: 11-11-2022 COVID-19 Vaccine ( season) COVID-19 Vaccine ( season) [facility] Start: 11-11-2022 Influenza vaccination [facility] Start: 09-09-2022 Influenza vaccination INFLUENZA (#1) [facility] Comment on above: Postponed from 11/11/2021 (Declined at t his time) Start: 07-08-2022 End: 07-09-2023 Levetiracetam level Levetiracetam level Lab Routine 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, not intractable, without status epilepticus (HCC) Expected: 07/08/2022 (Approximate), Expires: 07/09/2023 [facility] Work Phone: Comment on above: Expected: 07/08/2022 (Approximate), Expi res: 07/09/2023 Start: 11-11-2021 Influenza vaccination [facility] Start: 04-15-2021 HPV TESTING HPV TESTING [facility] Start: 04-15-2021 PAP TESTING PAP TESTING [facility] Start: 04-12-2021 End: 04-12-2021 Patient encounter procedure 04/12/2021 Office Visit Neurology Anderson Ordonez MD [address] [place], [place] [phone] [facility] [place] Start: 04-06-2021 End: 04-06-2021 Patient encounter procedure 04/06/2021 Office Visit Neurology Anderson Ordonez MD [address] [place], [place] [phone] [facility] [place] Start: 03-13-2021 DEPRESSION ASSESSMENT DEPRESSION ASSESSMENT [facility] Start: 01-06-2021 End: 01-06-2021 Patient encounter procedure 01/06/2021 Office Visit Obstetrics and Gynecology Yessi Munoz MD [address] [place] [address] [phone] [facility] Start: 11-19-2020 End: 11-19-2020 Patient encounter procedure 11/19/2020 Office Visit Obstetrics and Gynecology Yessi Munoz MD [address] [place], [place] [id number] [facility] HUMAN SERVICES MANAGER Start: 11-11-2020 Influenza vaccination Flu vaccine (#1) [facility] Work Phone: Start: 11-05-2020 End: 11-05-2020 Patient encounter procedure 11/05/2020 Procedure visit Obstetrics and Gynecology [facility] Start: 09-06-2020 Annual Wellness Visit (AWV) Annual Wellness Visit (AWV) [facility] Work Phone: Start: 01-29-2019 Adult depression screening assessment DEPRESSION SCREENING [facility] Start: 02-06-2017 End: 02-06-2017 *GC/Chlamydia *GC/Chlamydia [facility] Start: 02-06-2017 End: 02-06-2017 Bacteria genital culture *CUV - Culture, VAG/CX Comprehensive [facility] Start: 02-06-2017 End: 02-06-2017 Appointment Appointment [facility] Start: 02-06-2017 End: 02-06-2017 *GC/Chlamydia *GC/Chlamydia [facility] Start: 02-06-2017 End: 02-06-2017 Bacteria genital culture *CUV - Culture, VAG/CX [facility] Start: 10-07-2016 End: 10-07-2016 Appointment Appointment [facility] Start: 10-07-2016 End: 02-07-2017 17-Hydroxycorticosteroids [Mass/volume] in Urine *17HYDUR Hydroxycortosteroids [facility] Start: 10-07-2016 End: 02-07-2017 Dehydroepiandrosterone sulfate (DHEA-S) *DHEA - DHEA-S (Dehydroepiandrosterone Sullfate) [facility] Start: 10-07-2016 End: 02-07-2017 Testosterone Free [Mass/volume] in Serum or Plasma *TESTOF Testosterone Free [facility] Start: 10-07-2016 End: 02-07-2017 Thyroid stimulating hormone (TSH) *TSH [facility] Start: 10-07-2016 End: 02-07-2017 17-Hydroxycorticosteroids [Mass/volume] in Urine *17HYDUR Hydroxycortosteroids 17- [facility] Start: 10-07-2016 End: 02-07-2017 Dehydroepiandrosterone sulfate (DHEA-S) *DHEA - DHEA-S (Dehydroepiandrosterone Sullfate) [facility] Start: 10-07-2016 End: 02-07-2017 Testosterone Free [Mass/volume] in Serum or Plasma *TESTOF Testosterone Free [facility] Start: 10-07-2016 End: 02-07-2017 Thyroid stimulating hormone (TSH) *TSH [facility] Start: 06-15-2013 Screening for malignant neoplasm of cervix [facility] Start: 06-15-2004 Screening for malignant neoplasm of cervix [facility] Work Phone: Start: 06-15-2001 Anxiety Screening Anxiety Screening [facility] Start: 06-15-2001 Diabetes mellitus screening Diabetes Screening [facility] Start: 06-15-2001 Hepatitis C screening Hepatitis C Screening [facility] Start: 04-10-2000 Hepatitis A vaccine (2 of 2 - 2-dose series) Hepatitis A vaccine (2 of 2 - 2-dose series) [facility] Work Phone: Start: 04-10-2000 Hepatitis A Vaccines (2 of 2 - 2-dose series) Hepatitis A Vaccines (2 of 2 - 2-dose series) [facility] Start: 11-06-1999 HEPATITIS B (2 of 3 - 3-dose series) HEPATITIS B (2 of 3 - 3-dose series) [facility] Start: 11-06-1999 Hepatitis B vaccine (2 of 3 - 3-dose primary series) Hepatitis B vaccine (2 of 3 - 3-dose primary series) [facility] Work Phone: Start: 11-06-1999 Hepatitis B Vaccine (2 of 3 - 3-dose series) Hepatitis B Vaccine (2 of 3 - 3-dose series) [facility] Start: 11-06-1999 Hepatitis B Vaccines (2 of 3 - 3-dose series) Hepatitis B Vaccines (2 of 3 - 3-dose series) [facility] Start: 06-15-1998 HIV screening HIV screen [facility] Work Phone: Start: 06-15-1996 Varicella vaccination Varicella Vaccines (1 of 2 - 13+ 2-dose series) [facility] Start: 1995 COVID-19 Vaccine (1) COVID-19 Vaccine (1) [facility] Work Phone: Start: 1995 Depresssion Monitoring Depresssion Monitoring [facility] Start: 06-15-1988 COVID-19 VACCINE (#1) COVID-19 VACCINE (#1) [facility] Start: 06-15-1988 COVID-19 VACCINE (1) COVID-19 VACCINE (1) [facility] Start: 06-15-1984 MMR Vaccines (1 of 1 - Standard series) MMR Vaccines (1 of 1 - Standard series) [facility] Start: 06-15-1984 Varicella vaccination Varicella Vaccines (1 of 2 - 2-dose childhood series) [facility] Start: 06-15-1984 Varicella vaccine (1 of 2 - 2-dose childhood series) Varicella vaccine (1 of 2 - 2-dose childhood series) [facility] Work Phone: Start: 1983 COVID-19 VACCINE (#1) COVID-19 VACCINE (#1) [facility] Start: 1983 Hepatitis C screening Hepatitis C screen [facility] Work Phone: Start: 1983 HIV screening HIV Screening [facility] Start: 1983 Lipid panel Lipid Panel [facility] Start: 1983 Medicare Advantage Annual Wellness Visit (AWV) Medicare Advantage Annual Wellness Visit (AWV) [facility] End: 10-28-2020 17-Hydroxyprogesterone 17-Hydroxyprogesterone Lab Routine PCOS (polycystic ovarian syndrome) 1 Occurrences starting 10/28/2020 until 10/28/2020 [facility] Work Phone: Comment on above: 1 Occurrences starting 10/28/2020 until 10/28/2020 17-Hydroxyprogesterone 17-Hydrox yprogesterone Lab Routine PCOS (polycystic ovarian syndrome) 10/28/2020 11:30 AM EDT [facility] Work Phone: End: 10-28-2020 DHEA-Sulfate DHEA-Sulfate Lab Routine PCOS (polycystic ovarian syndrome) 1 Occurrences starting 10/28/2020 until 10/28/2020 [facility] Work Phone: Comment on above: 1 Occurrences starting 10/28/2020 until 10/28/2020 DHEA-Sulfate DHEA-Sulfate Lab Routine PCOS (polycystic ovarian syndrome) 10/28/2020 11:30 AM EDT [facility] Work Phone: End: 10-28-2020 Insulin, Random Insulin, Random Lab Routine PCOS (polycystic ovarian syndrome) 1 Occurrences starting 10/28/2020 until 10/28/2020 [facility] Work Phone: Comment on above: 1 Occurrences starting 10/28/2020 until 10/28/2020 Insulin, Random Insulin, Random Lab Routine PCOS (polycystic ovarian syndrome) 10/28/2020 11:30 AM EDT [facility] Work Phone: End: 10-28-2020 Testosterone,Free/Total [facility] Testosterone,Free/Total [facility] Lab Routine PCOS (polycystic ovarian syndrome) Other ovarian dysfunction 1 Occurrences starting 10/28/2020 until 10/28/2020 [facility] Work Phone: Comment on above: 1 Occurrences starting 10/28/2020 until 10/28/2020 Testosterone,Free/To alyssa [facility] Testosterone,Free/Total [facility] Children Lab Routine PCOS (polycystic ovarian syndrome) Other ovarian dysfunction 10/28/2020 11:30 AM EDT [facility] Work Phone: End: 09-13-2024 XR Knee - right 4 Views XR KNEE GENERAL 4V AP BOTH/PA BOTH/LAT/MERC RIGHT Radiology Routine Right knee pain, unspecified chronicity 1 Occurrences starting 08/15/2023 until 09/13/2024 [facility] Work Phone: Comment on above: 1 Occurrences starting 08/15/2023 until 09/13/2024 XR Knee - right 4 Views XR KNEE GENERAL 4V AP BOTH/PA BOTH/LAT/MERC RIGHT Radiology Routine Right knee pain, unspecified chronicity 08/25/2023 1:48 PM EDT [facility] Work Phone: [facility] Immunizations Immunization Date Immunization Notes Care Provider Nakul lucero 01-29-2018 tetanus toxoid, redu roland diphtheria toxoid, and acellular pertussis vaccine, adsorbed Bela Joseph APRN.CNP Work Phone: [facility] Work Phone: 01-29-2018 influenza virus vaccine, unspecified formulation Octavio Linn MA [facility] 10-30-2007 tetanus toxoid, redu roland diphtheria toxoid, and acellular pertussis vaccine, adsorbed Bela Joseph INFORMATION TECHNOLOGY COORDINATOR.LIFE INSURANCE UNDERWRITER Work Phone: [facility] Work Phone: 10-06-2002 hepatitis B immune globulin Bela Joseph INFORMATION TECHNOLOGY COORDINATOR.LIFE INSURANCE UNDERWRITER Work Phone: [facility] Work Phone: 05-27-2002 hepatitis B immune globulin Bela Joseph INFORMATION TECHNOLOGY COORDINATOR.LIFE INSURANCE UNDERWRITER Work Phone: [facility] Work Phone: 10-09-1999 hepatitis A and hepatitis B vaccine Bela Joseph INFORMATION TECHNOLOGY COORDINATOR.LIFE INSURANCE UNDERWRITER Work Phone: [facility] Work Phone: 10-09-1999 hepatitis B vaccine, unspecified formulation Anthony Garvin V, DO Work Phone: [facility] 09-03-1999 hepatitis B immune globulin Bela Joseph INFORMATION TECHNOLOGY COORDINATOR.LIFE INSURANCE UNDERWRITER Work Phone: [facility] Work Phone: Payers Date Payer Category Payer Medicaid [facility] MEDICAID MYC ARE [facility] MEDICAID [id number] 2019-Present [phone] [address] [place] [address] Medicaid [id number] 2019 Medicaid [id number] 2019 Medicare ANTHEM MEDICARE ADVANTAGE ANTHEM MEDICARE ADVANTAGE [id number] 2019-Present [address] [place] [address] Medicare HMO [id number] 2019 Unknown ANTHEM BLUE CROS S AND BLUE SHIELD ANTHEM MEDIBLUE HMO [id number] 2019-Present [phone] [id number] [place] [address] O [id number] 2019 Unknown [id number] 2019 Medicaid [id number] 2017 Medicare [id number] Medicaid [id number] Medicare [id number] Social History Date Type Detail Facility Start: 03-01-2012 End: 10-28-2020 Tobacco smoking status CAIS Never smoker [facility] Start: 03-01-2012 End: 10-28-2020 Tobacco use and exposure Never used [facility] Start: 10-28-2020 End: 08-25-2023 Alcohol intake Current drinker of alcohol (finding) [facility] Work Phone: Start: 10-06-2020 History SDOH Alcohol Frequency 1 [facility] Work Phone: Start: 10-28-2020 Alcohol Comment occ [facility] Work Phone: Start: 1985 Sex Assigned At Not on file S [facility] Work Phone: Start: 10-20-2020 End: 07-09-2021 Alcohol intake Current non-drinker of alcohol (finding) [facility] Start: 09-20-2020 End: 07-08-2022 Exposure to SARS-CoV-2 (event) Not sure [facility] Start: 03-02-2022 Alcohol Comment rare [facility] Start: 07-08-2022 End: 06-21-2023 Alcohol intake Ex-drinker (finding) [facility] Start: 02-18-2020 End: 07-08-2022 History of Social function [facility] Work Phone: Start: 02-18-2020 End: 07-08-2022 Tobacco use panel [facility] Work Phone: Adult Depression Screening Assessment 0 [facility] Work Phone: Clinical Notes 07-13-2015 to 09-27-2023 Telephone Encounter - Makeda Blakely MA - 09/27/2023 4:11 PM EDTTelephone Encounter - Makeda Blakely MA - 09/27/2023 4:11 PM EDTTelephone Encounter - Makeda Blakely MA - 09/27/2023 3:58 PM EDT Note Date & Type Note Facility 09-27-2023 Telephone encounter Note Patient returned call. She has not done any treatment for her knee outside of [facility]. Patient declines a cortisone injection as she does not like steroid use. She is willing to try NSAID (send to [facility]) and PT. Please place orders. Notify patient once completed. [facility] 09-27-2023 Miscellaneous Notes Patient returned call. She has not done any treatment for her knee outside of [facility]. Patient declines a cortisone injection as she does not like steroid use. She is willing to try NSAID (send to [facility]) and PT. Please place orders. Notify patient once completed. I called and left a message for the patient to contact the office. No cortisone injections given in the right knee. No documented PT since 2016 at [facility]. No NSAID use documented since 2020. === PHARMACY TEAM ==== ADDITIONAL INFORMATION NEEDED/REQUESTED Case Submitted: No Request Type: Provider Date of Service: tbs Additional Information Needed: per payer policy pt must have trail/failure of the following: Pt/hep Nsiads, And CSI. Please advise if pt has completed the above. Thank you. Request from Payor by: N/A Email Sent to: ANTHONY GARVIN V Requested Clinicals/Information Sent: N/A Was this already addressed? Referral still pending with insurance. Referral placed for Gel One injection x 1 into right knee. documented in this encounter [facility] 09-27-2023 Telephone encounter Note I called and left a message for the patient to contact the office. No cortisone injections given in the right knee. No documented PT since 2016 at [facility]. No NSAID use documented since 2020. [facility] 09-27-2023 Telephone encounter Note === PHARMACY TEAM ==== ADDITIONAL INFORMATION NEEDED/REQUESTED Case Submitted: No Request Type: Provider Date of Service: tbs Additional Information Needed: per payer policy pt must have trail/failure of the following: Pt/hep Nsiads, And CSI. Please advise if pt has completed the above. Thank you. Request from Payor by: N/A Email Sent to: ANTHONY GARVIN V Requested Clinicals/Information Sent: N/A [facility] 09-27-2023 Miscellaneous Notes === PHARMACY TEAM ==== ADDITIONAL INFORMATION NEEDED/REQUESTED Case Submitted: No Request Type: Provider Date of Service: tbs Additional Information Needed: per payer policy pt must have trail/failure of the following: Pt/hep Nsiads, And CSI. Please advise if pt has completed the above. Thank you. Request from Payor by: N/A Email Sent to: ANTHONY GARVIN V Requested Clinicals/Information Sent: N/A documented in this encounter [facility] 09-19-2023 Telephone encounter Note === PHARMACY TEAM ==== ADDITIONAL INFORMATION NEEDED/REQUESTED Case Submitted: No Request Type: Provider Date of Service: tbs Additional Information Needed: per payer policy pt must have trail/failure of the following: Pt/hep Nsiads, And CSI. Please advise if pt has completed the above. Thank you. Request from Payor by: N/A Email Sent to: ANTHONY GARVIN V Requested Clinicals/Information Sent: N/A Was this already addressed? [facility] 09-18-2023 Telephone encounter Note Any updates on this ? [facility] 09-18-2023 Miscellaneous Notes Any updates on this ? === PHARMACY TEAM ==== ADDITIONAL INFORMATION NEEDED/REQUESTED Case Submitted: No Request Type: Provider Date of Service: tbs Additional Information Needed: per payer policy pt must have trail/failure of the following: Pt/hep Nsiads, And CSI. Please advise if pt has completed the above. Thank you. Request from Payor by: N/A Email Sent to: ANTHONY GARVIN V Requested Clinicals/Information Sent: N/A documented in this encounter [facility] 09-08-2023 Telephone encounter Note === PHARMACY TEAM ==== ADDITIONAL INFORMATION NEEDED/REQUESTED Case Submitted: No Request Type: Provider Date of Service: [facility] Additional Information Needed: per payer policy pt must have trail/failure of the following: Pt/hep Nsiads, And CSI. Please advise if pt has completed the above. Thank you. Request from Payor by: N/A Email Sent to: ANTHONY GARVIN V Requested Clinicals/Information Sent: N/A [facility] 09-07-2023 Telephone encounter Note Referral still pending with insurance. [facility] 08-25-2023 Telephone encounter Note Referral placed for Gel One injection x 1 into right knee. [facility] 08-25-2023 Note HNO ID: [id number] Author: ANTHONY GARVIN, DO Service: ? Author Type: Physician Type: Progress Notes Filed: 08/25/2023 14:11 Note Text: SERVICE DATE: August 25, 2023 PCP: ASIM Maddox Subjective Patient ID: Josse is a 38 year old female. Chief Complaint: Patient presents with: Right Knee Pain PAIN EVALUATION 08/25/2023 1354 Pain Level: 6 Pain Location: Knee-Right Description: Other: See comment popping Duration Amount of Time: -- ongoing Frequency: Intermittent Intervention/Comfort measure: Reposition HPI Patient was last seen by me for right knee pain 3 years ago. States that she has been doing okay overall but has been having increasing pain, pressure, clicking in the right knee. She did receive gel 1 injection in 2017 and states that it helped quite a bit with her symptoms and would like to consider repeating that injection. Review of Systems ACTIVE PROBLEM LIST Generalized Tonic Clonic Epilepsy (Hcc) Hirsutism Class 3 Severe Obesity Due to Excess Calories Without Serious Comorbidity With Body Mass Index (Bmi) of 50.0 to 59.9 in Adult (Hcc) POLYP GASTRIC Pcos (Polycystic Ovarian Syndrome) Encounter for Medical Examination to Establish Care Depression PAST MEDICAL HISTORY Diagnosis Date Abdominal pain, epigastric Acute gastritis without mention of hemorrhage anxiety Benign neoplasm of stomach Bipolar disorder, unspecified (HCC) 03/31/2006 Cellulitis and abscess of trunk 05/30/2005 Depression Generalized convulsive epilepsy without mention of intractable epilepsy lamictal, since child Hirsutism Hypercholesteremia 04/2014 Infertility Obesity, unspecified Obesity Other bipolar disorders PCOS (polycystic ovarian syndrome) Seizure (HCC) PAST SURGICAL HISTORY Procedure Laterality Date EGD TRANSORAL BIOPSY SINGLE/MULTIPLE 05/23/08 PAST SURGICAL HISTORY OF 1997 RIGHT TEMPORAL LOBECTOMY AND IMPLANTATION OF IMPLANTS FAMILY HISTORY Problem Relation Age of Onset other (sudden cardiac arrest) Mother 49 passed in 2007 Cancer Maternal Grandmother Emphysema Maternal Grandmother Heart Maternal Grandfather Stroke Paternal Grandmother Cancer Paternal Grandfather Liver Heart Maternal Aunt open heart surgery Social History Tobacco Use Smoking status: Never Smokeless tobacco: Never Vaping Use Vaping Use: Never used Substance Use Topics Alcohol use: Yes Comment: rare Drug use: No ALLERGIES Allergen Reactions Atarax [Hydroxyzine] Mental Status Change Causes mental changes Phenobarbital Rash Propranolol Rash MEDICATIONS: citalopram (CELEXA) 20 mg tablet Take 20 mg by mouth once daily. citalopram hydrobromide (CELEXA) 10 mg tablet Take 10 mg by mouth once daily. BIOTIN ORAL Take by mouth. cholecalciferol (VITAMIN D3) 2,000 unit tablet Take 1 tablet by mouth once daily. levETIRAcetam XR (KEPPRA XR) 500 mg 24 hr tablet Take 500 mg each morning and 1000 mg evening. (Patient taking differently: 1,000 mg two times a day. Take 500 mg each morning and 1000 mg evening.) ALPRAZolam (XANAX) 2 mg tablet Take 2 mg by mouth twice daily. 2 mg am 2mg noon 1 mg bedtime benzonatate (TESSALON PERLES) 100 mg capsule Take 1 capsule by mouth three times a day as needed. (Patient not taking: Reported on 05/10/2023) loratadine (CLARITIN) 10 mg tablet Take 1 tablet by mouth once daily. (Patient not taking: Reported on 04/26/2023) metFORMIN (GLUCOPHAGE) 500 mg tablet Take 500 mg by mouth three times daily. (Patient not taking: Reported on 04/26/2023) propranolol (INDERAL) 10 mg tablet Take 1 tablet by mouth once daily. (Patient not taking: Reported on 06/07/2022) ferrous sulfate (IRON ORAL) Take by mouth. (Patient not taking: Reported on 08/25/2023) Allergies, medications, past surgical history, family history and past medical history were reviewed per this encounter. Objective Ortho Exam 38-year-old female in no acute distress, alert pleasant and cooperative with examination Dilation of the right knee shows no significant effusion. There is tenderness with palpation over the lateral joint line and lateral patellofemoral space. Genu recurvatum is noted. There is discomfort with flexion and lateral Cooper. X-ray shows progression of tricompartmental arthritis of the right Assessment/Plan ASSESSMENT Diagnosis Osteoarthritis right knee No orders found for this visit on 08/25/23. PLAN Patient has received significant symptom relief from gel 1 injection in the past. Will begin prior authorization for gel 1 injection to the right knee FOLLOW-UP: No follow-ups on file. SIGNATURE: Anthony Garvin DO PATIENT NAME: Josse Wayne DATE: August 25, 2023 TIME: 2:08 PM [facility] 08-25-2023 History of Presen t illness Narrative Images from the original note were not included. SERVICE DATE: August 25, 2023 PCP: ASIM Maddox Subjective Patient ID: Josse is a 38 year old female. Chief Complaint: Patient presents with: Right Knee Pain PAIN EVALUATION 08/25/2023 1354 Pain Level: 6 Pain Location: Knee-Right Description: Other: See comment popping Duration Amount of Time: -- ongoing Frequency: Intermittent Intervention/Comfort measure: Reposition HPI Patient was last seen by me for right knee pain 3 years ago. States that she has been doing okay overall but has been having increasing pain, pressure, clicking in the right knee. She did receive gel 1 injection in 2017 and states that it helped quite a bit with her symptoms and would like to consider repeating that injection. Review of Systems ACTIVE PROBLEM LIST Generalized Tonic Clonic Epilepsy (Hcc) Hirsutism Class 3 Severe Obesity Due to Excess Calories Without Serious Comorbidity With Body Mass Index (Bmi) of 50.0 to 59.9 in Adult (Hcc) POLYP GASTRIC Pcos (Polycystic Ovarian Syndrome) Encounter for Medical Examination to Establish Care Depression PAST MEDICAL HISTORY Diagnosis Date Abdominal pain, epigastric Acute gastritis without mention of hemorrhage anxiety Benign neoplasm of stomach Bipolar disorder, unspecified (HCC) 03/31/2006 Cellulitis and abscess of trunk 05/30/2005 Depression Generalized convulsive epilepsy without mention of intractable epilepsy lamictal, since child Hirsutism Hypercholesteremia 04/2014 Infertility Obesity, unspecified Obesity Other bipolar disorders PCOS (polycystic ovarian syndrome) Seizure (HCC) PAST SURGICAL HISTORY Procedure Laterality Date EGD TRANSORAL BIOPSY SINGLE/MULTIPLE 05/23/08 PAST SURGICAL HISTORY OF 1997 RIGHT TEMPORAL LOBECTOMY & IMPLANTATION OF IMPLANTS FAMILY HISTORY Problem Relation Age of Onset other (sudden cardiac arrest) Mother 49 passed in 2007 Cancer Maternal Grandmother Emphysema Maternal Grandmother Heart Maternal Grandfather Stroke Paternal Grandmother Cancer Paternal Grandfather Liver Heart Maternal Aunt open heart surgery Social History Tobacco Use Smoking status: Never Smokeless tobacco: Never Vaping Use Vaping Use: Never used Substance Use Topics Alcohol use: Yes Comment: rare Drug use: No ALLERGIES Allergen Reactions Atarax [Hydroxyzine] Mental Status Change Causes mental changes Phenobarbital Rash Propranolol Rash MEDICATIONS: citalopram (CELEXA) 20 mg tablet Take 20 mg by mouth once daily. citalopram hydrobromide (CELEXA) 10 mg tablet Take 10 mg by mouth once daily. BIOTIN ORAL Take by mouth. cholecalciferol (VITAMIN D3) 2,000 unit tablet Take 1 tablet by mouth once daily. levETIRAcetam XR (KEPPRA XR) 500 mg 24 hr tablet Take 500 mg each morning and 1000 mg evening. (Patient taking differently: 1,000 mg two times a day. Take 500 mg each morning and 1000 mg evening.) ALPRAZolam (XANAX) 2 mg tablet Take 2 mg by mouth twice daily. 2 mg am 2mg noon 1 mg bedtime benzonatate (TESSALON PERLES) 100 mg capsule Take 1 capsule by mouth three times a day as needed. (Patient not taking: Reported on 05/10/2023) loratadine (CLARITIN) 10 mg tablet Take 1 tablet by mouth once daily. (Patient not taking: Reported on 04/26/2023) metFORMIN (GLUCOPHAGE) 500 mg tablet Take 500 mg by mouth three times daily. (Patient not taking: Reported on 04/26/2023) propranolol (INDERAL) 10 mg tablet Take 1 tablet by mouth once daily. (Patient not taking: Reported on 06/07/2022) ferrous sulfate (IRON ORAL) Take by mouth. (Patient not taking: Reported on 08/25/2023) Allergies, medications, past surgical history, family history and past medical history were reviewed per this encounter. Objective Ortho Exam 38-year-old female in no acute distress, alert pleasant and cooperative with examination Dilation of the right knee shows no significant effusion. There is tenderness with palpation over the lateral joint line and lateral patellofemoral space. Genu recurvatum is noted. There is discomfort with flexion and lateral Cooper. X-ray shows progression of tricompartmental arthritis of the right Assessment/Plan ASSESSMENT Diagnosis Osteoarthritis right knee No orders found for this visit on 08/25/23. PLAN Patient has received significant symptom relief from gel 1 injection in the past. Will begin prior authorization for gel 1 injection to the right knee FOLLOW-UP: No follow-ups on file. SIGNATURE: Anthony Garvin DO PATIENT NAME: Josse Wayne DATE: August 25, 2023 TIME: 2:08 PM AMB ROOMING INTAKE FLOWSHEET DATA Pain Pain Level: 6 Pain Location: Knee-Right Description: Other: See comment (popping) Duration Amount of Time: (ongoing) Frequency: Intermittent Intervention/Comfort measure: Reposition documented in this encounter [facility] 08-25-2023 Note HNO ID: [id number] Author: MAKEDA BLAKELY MA Service: ? Author Type: Tie Sawyer Type: Progress Notes Filed: 08/25/2023 14:11 Note Text: AMB ROOMING INTAKE FLOWSHEET DATA Pain Pain Level: 6 Pain Location: Knee-Right Description: Other: See comment (popping) Duration Amount of Time: (ongoing) Frequency: Intermittent Intervention/Comfort measure: Reposition [facility] 08-25-2023 History of Presen t illness Narrative Radiology Service Progress Note PATIENT NAME: Josse Wayne DATE OF SERVICE: August 25, 2023 TIME: 2:00 PM PATIENT IDENTITY VERIFICATION COMPLETED USING TWO (2) IDENTIFIERS: Name and Date of confirmed by patient verbally. FALL SCREENING: Has the patient had 2 falls in the last year or 1 fall with injury or currently using an Ambulatory Assistive Device (Walker, Cane, Wheelchair, Crutches, etc.)? No PATIENT GENDER DATA: Female. status: : No status: NO. PATIENT RELEVANT IMPLANT DATA REVIEWED: Not Applicable PATIENT PRESENTS WITH AN IMPLANTABLE OR ATTACHED LINOTYPER: No RADIOLOGY DEPARTMENT: General X-ray: Exam(s) Completed: Lower Extremity X-Ray(s): Knee, AP / Lat / Tunne / Merchant Right and Wt. Bearing PERIPHERAL IV DATA: Not applicable SIGNED BY: RT Yandel(Katie) August 25, 2023 2:00 PM documented in this encounter [facility] 08-25-2023 Note HNO ID: [id number] Author: MARIAM SALAZAR RT(Katie) Service: ? Author Type: Technologist Type: Progress Notes Filed: 08/25/2023 14:02 Note Text: Radiology Service Progress Note PATIENT NAME: Josse Wayne DATE OF SERVICE: August 25, 2023 TIME: 2:00 PM PATIENT IDENTITY VERIFICATION COMPLETED USING TWO (2) IDENTIFIERS: Name and Date of confirmed by patient verbally. FALL SCREENING: Has the patient had 2 falls in the last year or 1 fall with injury or currently using an Ambulatory Assistive Device (Walker, Cane, Wheelchair, Crutches, etc.)? No PATIENT GENDER DATA: Female. status: : No status: NO. PATIENT RELEVANT IMPLANT DATA REVIEWED: Not Applicable PATIENT PRESENTS WITH AN IMPLANTABLE OR ATTACHED LINOTYPER: No RADIOLOGY DEPARTMENT: General X-ray: Exam(s) Completed: Lower Extremity X-Ray(s): Knee, AP / Lat / Tunne / Merchant Right and Wt. Bearing PERIPHERAL IV DATA: Not applicable SIGNED BY: JES Humphries) August 25, 2023 2:00 PM [facility] 06-21-2023 History of Presen t illness Narrative Visit type: Established Patient Reason for Visit: Follow-up and Seizures Assessment and Plan 1. 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 She had a lobectomy at age 12. Seizures returned in 2007 EEG 07/25-intermittent slowing focal slowing in right temporal region Keppra 1000mg bid Level=13.2 She reports no seizures Last seizure was in 2013 She is working for [employer] with plans to build a home She is driving Following with Psychiatry REVIEW OF SYSTEMS: Review of Systems Constitutional: Negative. HENT: Negative. Eyes: Negative. Respiratory: Negative. Cardiovascular: Negative. Gastrointestinal: Negative. Endocrine: Negative. Genitourinary: Negative. Musculoskeletal: Negative. Skin: Negative. Allergic/Immunologic: Negative. Neurological: Negative. Hematological: Negative. Psychiatric/Behavioral: The patient is nervous/anxious. Allergies Allergen Reactions Hydroxyzine Other Causes mental changes Phenobarbital Rash Other reaction(s): Other (See Comments), Unknown Propanediol Rash Propranolol Rash Outpatient Medications Prior to Visit Medication Sig Dispense Refill ALPRAZolam (Xanax) 1 MG tablet Take 1 mg by mouth Nightly. ALPRAZolam (Xanax) 2 MG tablet alprazolam 2 mg tablet TAKE 1 TABLET BY MOUTH TWICE DAILY Cholecalciferol (Vitamin D) 125 MCG (5000 UT) capsule Take by mouth 2 times daily. citalopram (CeleXA) 10 MG tablet take 1 tablet by oral route every day levETIRAcetam (Keppra) 1000 MG tablet TAKE 1 TABLET BY MOUTH TWICE DAILY 60 tablet 3 citalopram (CeleXA) 20 MG tablet TAKE 1.5 TABLETS BY MOUTH EVERY DAY ferrous sulfate 325 (65 Fe) MG tablet Take 325 mg by mouth daily (with breakfast). No facility-administered medications prior to visit. Past Medical History: Diagnosis Date Anxiety Depression Epilepsia (HCC) PCOS (polycystic ovarian syndrome) PTSD (post-traumatic stress disorder) Social History Tobacco Use Smoking status: Never Smokeless tobacco: Never Substance Use Topics Alcohol use: Not Currently Past Surgical History: Procedure Laterality Date BRAIN SURGERY 1997 Family History Problem Relation Name Age of Onset Heart attack Maternal Grandfather Objective Vitals: BP 118/79 (BP Location: Right arm, Patient Position: Sitting, BP Cuff Size: Large adult) Pulse 89 Ht 5' 4 (1.626 m) Wt (!) 322 lb 6.4 oz (146 kg) BMI 55.34 kg/m General Appearance: Patient is in no apparent distress. Head is normocephalic, atraumatic Cardiovascular: Regular rate and rhythm. No heart murmurs. No carotid bruit Neurologic: Mentation: Alert and oriented x 3 to person, place and time. Speech and Language: Speech and language normal Concentration and Attention: Concentration normal Memory: Memory normal Fund of Knowledge: Fund of knowledge normal Cranial Nerves: II, III, IV, V, , VII, VIII, IX, X, XI, XII examined and were intact. Motor: Strength: Strength 5 out of 5 with normal tone Alternating Movements: Normal Cogwheel Rigidity: None Tone: Tone is normal Tremor / Involuntary Movements: None Deep Tendon Reflexes: 1 out of 4 symmetrical in all four limbs. Sensory: Normal sensation upper and lower extremities Coordination: Normal coordination upper and lower extremities Gait and Station: Station is normal. Gait is normal Data Reviewed and Summarized DIAGNOSTIC TESTING CBC: No results found for: WBC , RBC , HGB , HCT , MCV , MCH , MCHC , RDW , PLT , MPV CMP: Lab Results Component Value Date GLUCOSE 97 10/28/2020 BMP: Lab Results Component Value Date GLUCOSE 97 10/28/2020 PT/INR: No results found for: PROTIME , INR PTT: No results found for: APTT , PTT [APTT} FLP: No results found for: CHLPL , TRIG , HDL , LDLCALC , LDLDIRECT TSH: Lab Results Component Value Date TSH 0.531 10/28/2020 VITAMIN B12: No results found for: [id number] No results found for: PHENYTOIN , PHENOBARB , VALPROATE , CBMZ No components found for: TOPIRA @RESULTINGLABINFO@ No results found for: LEVETIRACETA , FERRITIN , CRP , SUKHDEV , ANCA No results found for: REGLA , IMMUNOGLOBUL , OLIGOBANDS No results found for: [id number] , HEPCAB No results found for: CRP , ANATITER , ANCA FERRITIN: No results found for: FERRITIN ---- US NON OB TRANSVAGINAL Narrative: Gynecological Report (Signed Final 01/07/2021 01:43 pm) Patient Info ID #: [id number] : [birth year] (35 yrs)(F) Name: JOSSE WAYNE Visit Date: 01/06/2021 01:12 pm Performed By Attending: Yessi Location: [facility] Performed By: Bel Lemos Visit Type: [facility] RDMS Referred By: YESSI MUNOZ Service(s) Provided Last Model Department Supervisor Transvaginal [id number] Indications Polycystic ovarian syndrome E28.2 Ovarian cyst (right) N83.201 LMP 01/03/2021 TV [facility] ultrasound Technique/Scan Quality Technique: Transvaginal Approach Comparison 11/05/2020 History ------- Age: 35 LMP: 01/03/21 Day Of Cycle: 4 Menses: Irregular Hx Comments Non latex cover used. Uterus ------ Uterus: Echogenicity WNL Position: Anteverted Size (cm) L: 9.58 W: 5.27 H: 4.45 Endometrium Endometrium: Normal Thickness(mm): 8.42 Cervix ------ A single cervical cyst is noted. [place] No free fluid was visualized Right Ovary Status: Visualized Size (cm) L: 3.46 W: 2.67 H: 2.27 Vol.(ml): 10.98 Type: Simple cyst Size (cm) L: 1.71 W: 1.62 H: 1.34 Vol.(ml): 1.94 Left Ovary Status: Visualized Size (cm) L: 3.52 W: 2.46 H: 2.28 Vol.(ml): 10.34 Type: Polycystic Impression: Impression The uterine contour and echogenicity appear WNL. The endometrium is echogenic and uniform. Both ovaries are enlarged and have several, small cysts along the periphery of the ovary. This appearance and ovarian volumes over 10 cc can be associated with PCOS. The right ovary also contains a simple cyst. No free fluid or adnexal masses seen. Clinical correlation is required. Patient is scheduled to see Dr. Munoz following ultrasound 01/06/2021. 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 FRANCO Cota CNP I spent 20 minutes caring for this patient today, reviewing labs, records, seeing the patient, documenting in the record and arranging for studies. Electronically signed by @HANNAH@ denise @[email or web address]@ at @NOWNR@ documented in this encounter [facility] 06-21-2023 Instructions FRANCO Cota CNP - 06/21/2023 9:00 AM EDT Continue Keppra 1000mg twice daily Check level Follow up in April documented in this encounter [facility] 05-10-2023 Note HNO ID: [id number] Author: SURJIT ORDONEZ MD Service: ? Author Type: Physician Type: Progress Notes Filed: 05/10/2023 09:47 Note Text: Patient presents with: Sore Throat: Left ear pain x 1 week Bump on back of right leg, possible infected hair x 1 year HPI: Feeling return of sore throat and earache for 1 week. Positive symptoms: Sore throat, left Earache, dry Cough, some clear rhinorrhea Negative symptoms: Sinus pressure, Fever, OTC: Nyquil, Dayquil. Prescribed augmentin for sinobronchitis and left otitis media 2 weeks ago. Saw her PCP for a papule on her right posterior, inner thigh last May and prescribed an antibiotic. The bump did not go away. MEDICATIONS: Current Outpatient Medications Medication Sig citalopram (CELEXA) 20 mg tablet Take 20 mg by mouth once daily. citalopram hydrobromide (CELEXA) 10 mg tablet Take 10 mg by mouth once daily. BIOTIN ORAL Take by mouth. cholecalciferol (VITAMIN D3) 2,000 unit tablet Take 1 tablet by mouth once daily. ferrous sulfate (IRON ORAL) Take by mouth. levETIRAcetam XR (KEPPRA XR) 500 mg 24 hr tablet Take 500 mg each morning and 1000 mg evening. (Patient taking differently: 1,000 mg two times a day. Take 500 mg each morning and 1000 mg evening.) ALPRAZolam (XANAX) 2 mg tablet Take 2 mg by mouth twice daily. 2 mg am 2mg noon 1 mg bedtime benzonatate (TESSALON PERLES) 100 mg capsule Take 1 capsule by mouth three times a day as needed. (Patient not taking: Reported on 05/10/2023) loratadine (CLARITIN) 10 mg tablet Take 1 tablet by mouth once daily. (Patient not taking: Reported on 04/26/2023) metFORMIN (GLUCOPHAGE) 500 mg tablet Take 500 mg by mouth three times daily. (Patient not taking: Reported on 04/26/2023) propranolol (INDERAL) 10 mg tablet Take 1 tablet by mouth once daily. (Patient not taking: Reported on 06/07/2022) No current facility-administered medications for this visit. ALLERGIES: ALLERGIES Allergen Reactions Atarax [Hydroxyzine] Mental Status Change Causes mental changes Phenobarbital Rash Propranolol Rash VITALS: BP 124/88 Pulse 88 Temp 36.6 ?C (97.8 ?F) Resp 21 Wt (!) 145.1 kg (319 lb 12.8 oz) LMP 08/11/2021 (Exact Date) SpO2 99% BMI 54.89 kg/m? PHYSICAL EXAM: GEN: mildly ill appearing, hirsutism HEENT: PERRL, EOMI, conjunctiva clear Ears: canals clear. TMs without erythema, bulge, or effusion Sinuses: non-tender frontal sinus, non-tender maxillary sinuses Throat: moist mucous membranes, mild erythema, 2+/4 left tonsil, no exudate Neck: supple, no thyromegaly, no lymphadenopathy HEART: regular rate and rhythm, no murmurs LUNGS: clear to auscultation, no wheezes or crackles, no increased WOB SKIN: photos of papule on right posterior inner thigh ASSESSMENT/PLAN: 1. Sore throat - ICD9: 462, ICD10: J02.9 (primary diagnosis) - STREP A MOLECULAR (POC) - negative. Benign ear exam. - suspect viral pharyngitis with referred left ear pain. - Discussed supportive care treatment with rest, cold medicine, and analgesia. 2. Papule of skin - ICD9: 709.8, ICD10: R23.8 Follow up with PCP, dermatology, or general surgery for thigh papule present for the last year. She sees a continuous still operator so will follow up at [facility]. Surjit Ordonez MD [facility] 05-10-2023 History of Presen t illness Narrative Patient presents with: Sore Throat: Left ear pain x 1 week Bump on back of right leg, possible infected hair x 1 year HPI: Feeling return of sore throat and earache for 1 week. Positive symptoms: Sore throat, left Earache, dry Cough, some clear rhinorrhea Negative symptoms: Sinus pressure, Fever, OTC: Nyquil, Dayquil. Prescribed augmentin for sinobronchitis and left otitis media 2 weeks ago. Saw her PCP for a papule on her right posterior, inner thigh last May and prescribed an antibiotic. The bump did not go away. MEDICATIONS: Current Outpatient Medications Medication Sig citalopram (CELEXA) 20 mg tablet Take 20 mg by mouth once daily. citalopram hydrobromide (CELEXA) 10 mg tablet Take 10 mg by mouth once daily. BIOTIN ORAL Take by mouth. cholecalciferol (VITAMIN D3) 2,000 unit tablet Take 1 tablet by mouth once daily. ferrous sulfate (IRON ORAL) Take by mouth. levETIRAcetam XR (KEPPRA XR) 500 mg 24 hr tablet Take 500 mg each morning and 1000 mg evening. (Patient taking differently: 1,000 mg two times a day. Take 500 mg each morning and 1000 mg evening.) ALPRAZolam (XANAX) 2 mg tablet Take 2 mg by mouth twice daily. 2 mg am 2mg noon 1 mg bedtime benzonatate (TESSALON PERLES) 100 mg capsule Take 1 capsule by mouth three times a day as needed. (Patient not taking: Reported on 05/10/2023) loratadine (CLARITIN) 10 mg tablet Take 1 tablet by mouth once daily. (Patient not taking: Reported on 04/26/2023) metFORMIN (GLUCOPHAGE) 500 mg tablet Take 500 mg by mouth three times daily. (Patient not taking: Reported on 04/26/2023) propranolol (INDERAL) 10 mg tablet Take 1 tablet by mouth once daily. (Patient not taking: Reported on 06/07/2022) No current facility-administered medications for this visit. ALLERGIES: ALLERGIES Allergen Reactions Atarax [Hydroxyzine] Mental Status Change Causes mental changes Phenobarbital Rash Propranolol Rash VITALS: BP 124/88 Pulse 88 Temp 36.6 C (97.8 F) Resp 21 Wt (!) 145.1 kg (319 lb 12.8 oz) LMP 08/11/2021 (Exact Date) SpO2 99% BMI 54.89 kg/m PHYSICAL EXAM: GEN: mildly ill appearing, hirsutism HEENT: PERRL, EOMI, conjunctiva clear Ears: canals clear. TMs without erythema, bulge, or effusion Sinuses: non-tender frontal sinus, non-tender maxillary sinuses Throat: moist mucous membranes, mild erythema, 2+/4 left tonsil, no exudate Neck: supple, no thyromegaly, no lymphadenopathy HEART: regular rate and rhythm, no murmurs LUNGS: clear to auscultation, no wheezes or crackles, no increased WOB SKIN: photos of papule on right posterior inner thigh ASSESSMENT/PLAN: 1. Sore throat - ICD9: 462, ICD10: J02.9 (primary diagnosis) - STREP A MOLECULAR (POC) - negative. Benign ear exam. - suspect viral pharyngitis with referred left ear pain. - Discussed supportive care treatment with rest, cold medicine, and analgesia. 2. Papule of skin - ICD9: 709.8, ICD10: R23.8 Follow up with PCP, dermatology, or general surgery for thigh papule present for the last year. She sees a continuous still operator so will follow up at [facility]. Surjit Ordonez MD documented in this encounter [facility] 04-26-2023 Note HNO ID: [id number] Author: PRINCESS PAT PA Service: ? Author Type: Physician Placement Officer Type: Progress Notes Filed: 04/26/2023 16:38 Note Text: This note was created using [employer]. Subjective Josse Wayne is a 37 year old female. HPI 37-year-old female presents for sinus congestion, sinus pressure, cough x 2 weeks. Patient states that she started getting sick at the beginning of April with nasal congestion, and cough. She states that she now has worsening sinus pressure. She is coughing up some phlegm. States she has been taking [id number] cough and cold medications with minimal improvement. She states about 5 days ago she started getting left ear pain. No drainage from the ears. She has not had any fevers. No vomiting or diarrhea. No chest pain or shortness of breath. No sick contacts. 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 citalopram hydrobromide (CELEXA) 10 mg tablet Take 10 mg by mouth once daily. BIOTIN ORAL Take by mouth. cholecalciferol (VITAMIN D3) 2,000 unit tablet Take 1 tablet by mouth once daily. ferrous sulfate (IRON ORAL) Take by mouth. levETIRAcetam XR (KEPPRA XR) 500 mg 24 hr tablet Take 500 mg each morning and 1000 mg evening. (Patient taking differently: 1,000 mg two times a day. Take 500 mg each morning and 1000 mg evening.) ALPRAZolam (XANAX) 2 mg tablet Take 2 mg by mouth twice daily. 2 mg am 2mg noon 1 mg bedtime amoxicillin-clavulanate potassium (AUGMENTIN) 875-125 mg per tablet Take 1 tablet by mouth two times a day for 7 days. benzonatate (TESSALON PERLES) 100 mg capsule Take 1 capsule by mouth three times a day as needed. loratadine (CLARITIN) 10 mg tablet Take 1 tablet by mouth once daily. (Patient not taking: Reported on 04/26/2023) metFORMIN (GLUCOPHAGE) 500 mg tablet Take 500 mg by mouth three times daily. (Patient not taking: Reported on 04/26/2023) propranolol (INDERAL) 10 mg tablet Take 1 tablet by mouth once daily. (Patient not taking: Reported on 06/07/2022) FAMILY HISTORY Problem Relation Age of Onset other (sudden cardiac arrest) Mother 49 passed in 2007 Cancer Maternal Grandmother Emphysema Maternal Grandmother Heart Maternal Grandfather Stroke Paternal Grandmother Cancer Paternal Grandfather Liver Heart Maternal Aunt open heart surgery Social History Tobacco Use Smoking status: Never Smokeless tobacco: Never Vaping Use Vaping Use: Never used Substance Use Topics Alcohol use: Yes Comment: rare Drug use: No Review of Systems Constitutional: Negative for chills and fever. HENT: Positive for congestion, ear pain, sinus pressure, sinus pain and sore throat. Respiratory: Positive for cough. Negative for shortness of breath. Cardiovascular: Negative for chest pain. Gastrointestinal: Negative for diarrhea and vomiting. Objective BP 138/82 Pulse 76 Temp 36.6 ?C (97.9 ?F) (Tympanic) Resp 18 Wt (!) 144.2 kg (318 lb) LMP 08/11/2021 (Exact Date) SpO2 98% BMI 54.58 kg/m? Physical Exam Vitals and nursing note reviewed. Constitutional: General: She is not in acute distress. Appearance: Normal appearance. She is not toxic-appearing. HENT: Right Ear: Tympanic membrane and ear canal normal. Left Ear: Ear canal normal. A middle ear effusion is present. Tympanic membrane is erythematous. Nose: Congestion present. Right Sinus: Maxillary sinus tenderness present. Left Sinus: Maxillary sinus tenderness present. Mouth/Throat: Mouth: Mucous membranes are moist. Pharynx: Uvula midline. Posterior oropharyngeal erythema present. No oropharyngeal exudate. Tonsils: No tonsillar exudate. 2+ on the right. 2+ on the left. Eyes: Conjunctiva/sclera: Conjunctivae normal. Cardiovascular: Rate and Rhythm: Normal rate and regular rhythm. Pulmonary: Effort: Pulmonary effort is normal. Breath sounds: Normal breath sounds. Neurological: Mental Status: She is alert. Assessment and Plan ASSESSMENT/PLAN: 1. Sinobronchitis - ICD9: 473.9, 490, ICD10: J32.9, J40 (primary diagnosis) - Will begin treatment with Augmentin 875 mg PO BID for 7 days -Rx for Tessalon Perles - Supportive ca (more content not included)... [facility] 04-26-2023 History of Presen t illness Narrative This note was created using [employer]. Subjective Josse Wayne is a 37 year old female. HPI 37-year-old female presents for sinus congestion, sinus pressure, cough x 2 weeks. Patient states that she started getting sick at the beginning of April with nasal congestion, and cough. She states that she now has worsening sinus pressure. She is coughing up some phlegm. States she has been taking [id number] cough and cold medications with minimal improvement. She states about 5 days ago she started getting left ear pain. No drainage from the ears. She has not had any fevers. No vomiting or diarrhea. No chest pain or shortness of breath. No sick contacts. 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 citalopram hydrobromide (CELEXA) 10 mg tablet Take 10 mg by mouth once daily. BIOTIN ORAL Take by mouth. cholecalciferol (VITAMIN D3) 2,000 unit tablet Take 1 tablet by mouth once daily. ferrous sulfate (IRON ORAL) Take by mouth. levETIRAcetam XR (KEPPRA XR) 500 mg 24 hr tablet Take 500 mg each morning and 1000 mg evening. (Patient taking differently: 1,000 mg two times a day. Take 500 mg each morning and 1000 mg evening.) ALPRAZolam (XANAX) 2 mg tablet Take 2 mg by mouth twice daily. 2 mg am 2mg noon 1 mg bedtime amoxicillin-clavulanate potassium (AUGMENTIN) 875-125 mg per tablet Take 1 tablet by mouth two times a day for 7 days. benzonatate (TESSALON PERLES) 100 mg capsule Take 1 capsule by mouth three times a day as needed. loratadine (CLARITIN) 10 mg tablet Take 1 tablet by mouth once daily. (Patient not taking: Reported on 04/26/2023) metFORMIN (GLUCOPHAGE) 500 mg tablet Take 500 mg by mouth three times daily. (Patient not taking: Reported on 04/26/2023) propranolol (INDERAL) 10 mg tablet Take 1 tablet by mouth once daily. (Patient not taking: Reported on 06/07/2022) FAMILY HISTORY Problem Relation Age of Onset other (sudden cardiac arrest) Mother 49 passed in 2007 Cancer Maternal Grandmother Emphysema Maternal Grandmother Heart Maternal Grandfather Stroke Paternal Grandmother Cancer Paternal Grandfather Liver Heart Maternal Aunt open heart surgery Social History Tobacco Use Smoking status: Never Smokeless tobacco: Never Vaping Use Vaping Use: Never used Substance Use Topics Alcohol use: Yes Comment: rare Drug use: No Review of Systems Constitutional: Negative for chills and fever. HENT: Positive for congestion, ear pain, sinus pressure, sinus pain and sore throat. Respiratory: Positive for cough. Negative for shortness of breath. Cardiovascular: Negative for chest pain. Gastrointestinal: Negative for diarrhea and vomiting. Objective BP 138/82 Pulse 76 Temp 36.6 C (97.9 F) (Tympanic) Resp 18 Wt (!) 144.2 kg (318 lb) LMP 08/11/2021 (Exact Date) SpO2 98% BMI 54.58 kg/m Physical Exam Vitals and nursing note reviewed. Constitutional: General: She is not in acute distress. Appearance: Normal appearance. She is not toxic-appearing. HENT: Right Ear: Tympanic membrane and ear canal normal. Left Ear: Ear canal normal. A middle ear effusion is present. Tympanic membrane is erythematous. Nose: Congestion present. Right Sinus: Maxillary sinus tenderness present. Left Sinus: Maxillary sinus tenderness present. Mouth/Throat: Mouth: Mucous membranes are moist. Pharynx: Uvula midline. Posterior oropharyngeal erythema present. No oropharyngeal exudate. Tonsils: No tonsillar exudate. 2+ on the right. 2+ on the left. Eyes: Conjunctiva/sclera: Conjunctivae normal. Cardiovascular: Rate and Rhythm: Normal rate and regular rhythm. Pulmonary: Effort: Pulmonary effort is normal. Breath sounds: Normal breath sounds. Neurological: Mental Status: She is alert. Assessment and Plan ASSESSMENT/PLAN: 1. Sinobronchitis - ICD9: 473.9, 490, ICD10: J32.9, J40 (primary diagnosis) - Will begin treatment with Augmentin 875 mg PO BID for 7 days -Rx for Tessalon Perles - Supportive care with plenty of fluids, rest, and analgesia prn. 2. Acute otitis media, left - ICD9: 382.9, ICD10: H66.92 - Will begin treatment with Augmentin 875 mg PO BID for 7 days - Supportive care with plenty of fluids, rest, and analgesia prn. Diagnosis and treatment plan were discussed and questions were answered to the patient's satisfaction. Pt acknowledged understanding of concepts and follow up plan. Specific signs and symptoms that would indicate the need for higher level of care were discussed in detail warranting prompt ER evaluation. ERVIN Banda documented in this encounter [facility] 02-06-2024 Telephone encounter Note Last ov- 07/08/22 Next ov- 07/11/23 [facility] 04-18-2023 Miscellaneous Notes Last ov- 07/08/22 Next ov- 07/11/23 documented in this encounter [facility] 02-14-2023 Note HNO ID: [id number] Author: Octavio Linn MA Service: ? Author Type: Tie Sawyer Type: Progress Notes Filed: 02/14/2023 1:48 PM Note Text: POPULATION HEALTH NAVIGATION OUTREACH Action/February 14, 2023 [place] Attribution Member- Chart review- [place] [facility] Annual Wellness A1C- Per [place] Flu shot Octavio Linn MA Patient Identified by Name and : NO Outreach Outcome/Action Unable to reach patient: Left message Did you use a PCP flex slot to schedule this appointment? N/A Reason for Outreach Care Gap or Scheduling/Wellness visits Payer: Payor: [employer] / Plan: [employer] HMO / Product Type: HMO / Care Gap Reviewed:: Annual Wellness visit HBA1C Flu Vaccine Reminder: Reminder note to check Health Maintenance for items below Health Maintenance items due: Influenza Vaccine(1) due on 11/11/2022 Navigation Signature: Octavio Linn MA February 14, 2023 1:46 PM [facility] 02-14-2023 History of Presen t illness Narrative POPULATION HEALTH NAVIGATION OUTREACH Action/February 14, 2023 [place] Attribution Member- Chart review- [place] [facility] Annual Wellness A1C- Per [place] Flu shot Octavio Linn MA Patient Identified by Name and : NO Outreach Outcome/Action Unable to reach patient: Left message Did you use a PCP flex slot to schedule this appointment? N/A Reason for Outreach Care Gap or Scheduling/Wellness visits Payer: Payor: [employer] SHIELD / Plan: ANTHEM MEDIBLUE HMO / Product Type: HMO / Care Gap Reviewed:: Annual Wellness visit HBA1C Flu Vaccine Reminder: Reminder note to check Health Maintenance for items below Health Maintenance items due: Influenza Vaccine(1) due on 11/11/2022 Navigation Signature: Octavio Linn MA February 14, 2023 1:46 PM documented in this encounter [facility] 02-14-2023 Note Patient Outreach (NE TNAV) JOSSE WAYNE ([id number]) 1985 F Date Time Provider Department 02/14/23 OCTAVIO LINN NETNAV During your visit today, we recorded the following information about you: Octavio Linn MA 02/14/2023 1:48 PM Signed POPULATION HEALTH NAVIGATION OUTREACH Action/February 14, 2023 Juany Lange Member- Chart review- Dejan Eduardo Annual Wellness A1C- Per [place] Flu shot Octavio Linn MA Patient Identified by Name and : NO Outreach Outcome/Action Unable to reach patient: Left message Did you use a PCP flex slot to schedule this appointment? N/A Reason for Outreach Care Gap or Scheduling/Wellness visits Payer: Payor: JUANY [employer] [facility] / Plan: ANTH [employer] HMO / Product Type: HMO / Care Gap Reviewed:: Annual Wellness visit HBA1C Flu Vaccine Reminder: Reminder note to check Health Maintenance for items below Health Maintenance items due: Influenza Vaccine(1) due on 11/11/2022 Navigation Signature: Octavio Linn MA February 14, 2023 1:46 PM Allergies As of Date: 02/14/2023 Noted Allergy Reaction PHENOBARBITAL 09/12/2006 2 - Rash Date Reviewed: 03/02/2022 Reviewed by: Gabe Pierre APRN.LIFE INSURANCE UNDERWRITER - Fully Assessed Reason for Visit: Population Health Navigation Outreach [3910] Cmt: Juany Lange Member- Chart review Prescriptions as of 02/14/2023 - loratadine (CLARITIN) 10 mg tablet Take 1 tablet by mouth once daily. - citalopram (CELEXA) 20 mg tablet Take 20 mg by mouth once daily. - citalopram hydrobromide (CELEXA) 10 mg tablet Take 10 mg by mouth once daily. - metFORMIN (GLUCOPHAGE) 500 mg tablet Take 500 mg by mouth three times daily. - propranolol (INDERAL) 10 mg tablet Take 1 tablet by mouth once daily. - BIOTIN ORAL Take by mouth. - cholecalciferol (VITAMIN D3) 2,000 unit tablet Take 1 tablet by mouth once daily. - ferrous sulfate (IRON ORAL) Take by mouth. - levETIRAcetam XR (KEPPRA XR) 500 mg 24 hr tablet Take 500 mg each morning and 1000 mg evening. - ALPRAZolam (XANAX) 2 mg tablet Take 2 mg by mouth twice daily. 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* HIRSUTISM [L68.0] Class 3 severe obesity due to excess calories w* ABSCESS ABDOMINAL WALL [L03.319, L02.219] 05/30/2005 04/14/2009 Bipolar disorder, unspecified (HCC) [F31.9] 03/31/2006 03/02/2022 Other symptoms referable to back [M53.80] 11/27/2006 04/11/2018 POLYP GASTRIC [D13.1] 05/23/2008 Acute gastritis without mention of hemorrhage [*05/23/2008 04/11/2018 PCOS (Polycystic Ovarian Syndrome) [E28.2] 04/14/2009 Gonorrhea [A54.9] 03/19/2013 03/12/2020 Seizure (HCC) [R56.9] 06/01/2015 03/12/2020 Excessive and frequent menstruation with irregu*07/07/2015 07/13/2015 Morbid obesity due to excess calories (HCC) [E6*07/13/2015 03/12/2020 Encounter for medical examination to establish *03/02/2022 Depression [F32.A] 03/02/2022 Encounter Status:Closed by OCTAVIO LINN on 02/14/23 [facility] 01-06-2023 Note HNO ID: [id number] Author: Nita Falk Service: ? Author Type: ? Type: Progress Notes Filed: 01/06/2023 4:08 PM Note Text: POPULATION HEALTH NAVIGATION OUTREACH Action/FYI Patient Identified by Name and : YES, via phone Outreach Outcome/Action Spoke to patient / parent / legal guardian: PCP confirmed / updated Patient will return the call or ask for return call Patient verified that she is still coming here for PCP. She will call back next week to schedule appt. Has not had any needs, that is why she has not come. Reason for Outreach Care Gap or Scheduling/Wellness visits Payer: Payor: JUANY DELEON [employer] / Plan: [employer] HMO / Product Type: HMO / Care Gap Reviewed:: Annual Wellness visit Diabetic Eye Exam HBA1C Navigation Signature: Nita Falk January 06, 2023 4:03 PM [facility] 01-02-2023 Note HNO ID: [id number] Author: Nita Falk Service: ? Author Type: ? Type: Progress Notes Filed: 01/02/2023 2:23 PM Note Text: POPULATION HEALTH NAVIGATION OUTREACH Action/FYI Patient Identified by Name and : YES, via phone Outreach Outcome/Action Unable to reach patient: Left message Reason for Outreach Care Gap or Scheduling/Wellness visits Payer: Payor: JUANY MARKHAM / Plan: [employer] HMO / Product Type: HMO / Care Gap Reviewed:: Annual Wellness visit Diabetic Eye Exam HBA1C Navigation Signature: Nita Falk January 02, 2023 2:20 PM [facility] 01-02-2023 Note Patient Outreach (RUBY LINARES) DEEDS,JOSSE D ([id number]) 1985 F Date Time Provider Department 01/02/23 NITA FALK During your visit today, we recorded the following information about you: Nita Falk 01/02/2023 2:23 PM Signed POPULATION HEALTH NAVIGATION OUTREACH Action/FYI Patient Identified by Name and : YES, via phone Outreach Outcome/Action Unable to reach patient: Left message Reason for Outreach Care Gap or Scheduling/Wellness visits Payer: Payor: J[employer]ANY [employer] / Plan: [employer] HMO / Product Type: HMO / Care Gap Reviewed:: Annual Wellness visit Diabetic Eye Exam HBA1C Navigation Signature: Nita Falk January 02, 2023 2:20 PM Nita Falk 01/06/2023 4:08 PM Signed POPULATION HEALTH NAVIGATION OUTREACH Action/FYI Patient Identified by Name and : YES, via phone Outreach Outcome/Action Spoke to patient / parent / legal guardian: PCP confirmed / updated Patient will return the call or ask for return call Patient verified that she is still coming here for PCP. She will call back next week to schedule appt. Has not had any needs, that is why she has not come. Reason for Outreach Care Gap or Scheduling/Wellness visits Payer: Payor: JUANY HERNANDEZ [employer] / Plan: [employer] HMO / Product Type: HMO / Care Gap Reviewed:: Annual Wellness visit Diabetic Eye Exam HBA1C Navigation Signature: Nita Falk January 06, 2023 4:03 PM Allergies As of Date: 01/02/2023 Noted Allergy Reaction PHENOBARBITAL 09/12/2006 2 - Rash Date Reviewed: 03/02/2022 Reviewed by: Gabe Pierre APRN.LIFE INSURANCE UNDERWRITER - Fully Assessed Reason for Visit: Population Health Navigation Outreach [3910] Cmt: Juany Attributed Member- Needs PCP Appt Scheduled Prescriptions as of 01/06/2023 - loratadine (CLARITIN) 10 mg tablet Take 1 tablet by mouth once daily. - citalopram (CELEXA) 20 mg tablet Take 20 mg by mouth once daily. - citalopram hydrobromide (CELEXA) 10 mg tablet Take 10 mg by mouth once daily. - metFORMIN (GLUCOPHAGE) 500 mg tablet Take 500 mg by mouth three times daily. - propranolol (INDERAL) 10 mg tablet Take 1 tablet by mouth once daily. - BIOTIN ORAL Take by mouth. - cholecalciferol (VITAMIN D3) 2,000 unit tablet Take 1 tablet by mouth once daily. - ferrous sulfate (IRON ORAL) Take by mouth. - levETIRAcetam XR (KEPPRA XR) 500 mg 24 hr tablet Take 500 mg each morning and 1000 mg evening. - ALPRAZolam (XANAX) 2 mg tablet Take 2 mg by mouth twice daily. 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* HIRSUTISM [L68.0] Class 3 severe obesity due to excess calories w* ABSCESS ABDOMINAL WALL [L03.319, L02.219] 05/30/2005 04/14/2009 Bipolar disorder, unspecified (HCC) [F31.9] 03/31/2006 03/02/2022 Other symptoms referable to back [M53.80] 11/27/2006 04/11/2018 POLYP GASTRIC [D13.1] 05/23/2008 Acute gastritis without mention of hemorrhage [*05/23/2008 04/11/2018 PCOS (Polycystic Ovarian Syndrome) [E28.2] 04/14/2009 Gonorrhea [A54.9] 03/19/2013 03/12/2020 Seizure (HCC) [R56.9] 06/01/2015 03/12/2020 Excessive and frequent menstruation with irregu*07/07/2015 07/13/2015 Morbid obesity due to excess calories (HCC) [E6*07/13/2015 03/12/2020 Encounter for medical examination to establish *03/02/2022 Depression [F32.A] 03/02/2022 Encounter Status:Closed by NITA FALK on 01/02/23 [facility] 11-29-2022 Telephone encounter Note Last ov- 07/08/22 Next ov- 07/11/23 [facility] 11-29-2022 Miscellaneous Notes Last ov- 07/08/22 Next ov- 07/11/23 documented in this encounter [facility] 09-05-2022 History of Presen t illness Narrative Josse Wayne is identified through a medication adherence outreach initiative based on pharmacy claims data from [employer] (insurer) for Non-insulin DM medication(s). Patient is reviewed 09/05/22 due to medication adherence concerns with the following medications (name, strength, sig): Metformin 500mg, take 1 tablet by mouth three times daily Per data/report, last fill date and days supply: due 06/29/22 Per reconcile dispense, last fill date and days supply: filled 05/30/22 for 30 days Any need for new prescription (I.e. out of refills on most recent prescription) YES/NO/Active: yes Outcome of review/outreach: (choose outcome source and status) No refills remaining, pt sees outside provider, can not send refill request. Third time calling since last fill, no answer, lvm Chantel Rushing documented in this encounter [facility] 07-22-2022 History of Presen t illness Narrative Josse Wayne is identified through a medication adherence outreach initiative based on pharmacy claims data from [employer] (insurer) for Non-insulin DM medication(s). Patient is reviewed 07/22/22 due to medication adherence concerns with the following medications (name, strength, sig): Metformin 500mg 3 times daily. Per data/report, last fill date and days supply: Due 06/29/22 Per reconcile dispense, last fill date and days supply: Filled 05/30/22 Contacted patient: No answer; left generic VM Patient is identified by Name and . Discussion on adherence consisted of - LVM for PT. Using for PCOS no RFs sees outside provider for med unable to request RF Any need for new prescription (I.e. out of refills on most recent prescription) YES/NO/Active: yes Outcome of review/outreach: (choose outcome source and status) - Unable to reach PT LVM Rafia Mcgarry documented in this encounter [facility] 07-15-2022 Telephone encounter Note Message released to patient as written. Patient's further questions if applicable: No Were all questions from office addressed or relayed to the patient from encounter: Yes [facility] 07-15-2022 Miscellaneous Notes Message released to patient as written. Patient's further questions if applicable: No Were all questions from office addressed or relayed to the patient from encounter: Yes Lm for patient to call the office back, please let her know we did receive the Levetiracetam levels from [facility]. Lm for patient to call the office back, please let her know we did receive the Levetiracetam levels from [facility]. Name of caller: Josse Contact phone number: [phone] Relationship to Patient: patient Provider: ALEJANDRO Robertson Practice: [facility] [place] Chief Complaint/Reason for Call: Patient would like to know if the office received her lab work results from 07/11/22. She states she would like to know as there has been problem with the office receiving her lab work results. Please advise. Best time of day caller can be reached: any Patient advised that office/PCP has 24-48 business hours to return their call: Yes documented in this encounter [facility] 07-15-2022 Telephone encounter Note Lm for patient to call the office back, please let her know we did receive the Levetiracetam levels from [facility]. [facility] 07-14-2022 Telephone encounter Note Lm for patient to call the office back, please let her know we did receive the Levetiracetam levels from [facility]. [facility] 07-13-2022 Telephone encounter Note Name of caller: Josse Contact phone number: [phone] Relationship to Patient: patient Provider: ALEJANDRO Robertson Practice: [facility] [place] Chief Complaint/Reason for Call: Patient would like to know if the office received her lab work results from 07/11/22. She states she would like to know as there has been problem with the office receiving her lab work results. Please advise. Best time of day caller can be reached: any Patient advised that office/PCP has 24-48 business hours to return their call: Yes [facility] 07-13-2022 Telephone encounter Note Images from the original note were not included. [facility] 07-13-2022 Miscellaneous Notes Images from the original note were not included. documented in this encounter [facility] 07-08-2022 History of Presen t illness Narrative Visit type: Established Patient Reason for Visit: Follow-up (Seizure ) Assessment and Plan 1. 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 She had a lobectomy at age 12. Seizures returned in 2007 EEG 07/25-intermittent slowing focal slowing in right temporal region On Keppra. Dose increased due to level=11 Current dose 1000mg bid Her last seizure was in 2013 She was able to re-establish with her Psychiatrist REVIEW OF SYSTEMS: Review of Systems Constitutional: Negative. HENT: Negative. Eyes: Negative. Respiratory: Negative. Cardiovascular: Negative. Gastrointestinal: Negative. Endocrine: Negative. Genitourinary: Negative. Musculoskeletal: Negative. Skin: Negative. Allergic/Immunologic: Negative. Neurological: Negative. Hematological: Negative. Psychiatric/Behavioral: The patient is nervous/anxious. Allergies Allergen Reactions Phenobarbital Rash Other reaction(s): Other (See Comments), Unknown Propanediol Rash Outpatient Medications Prior to Visit Medication Sig Dispense Refill ALPRAZolam (Xanax) 1 MG tablet Take 1 mg by mouth Nightly. ALPRAZolam (Xanax) 2 MG tablet alprazolam 2 mg tablet TAKE 1 TABLET BY MOUTH TWICE DAILY Cholecalciferol (Vitamin D) 125 MCG (5000 UT) capsule Take by mouth 2 times daily. citalopram (CeleXA) 10 MG tablet // take 1 tablet by oral route every day citalopram (CeleXA) 20 MG tablet TAKE 1.5 TABLETS BY MOUTH EVERY DAY ferrous sulfate 325 (65 Fe) MG tablet Take 325 mg by mouth daily (with breakfast). levETIRAcetam (Keppra) 500 MG tablet Take 2 tablets (1,000 mg) by mouth in the morning and 2 tablets (1,000 mg) before bedtime. 120 tablet 2 No facility-administered medications prior to visit. Past Medical History: Diagnosis Date Anxiety Depression Epilepsia (HCC) PCOS (polycystic ovarian syndrome) PTSD (post-traumatic stress disorder) Social History Tobacco Use Smoking status: Never Smokeless tobacco: Never Substance Use Topics Alcohol use: Not Currently Past Surgical History: Procedure Laterality Date BRAIN SURGERY 1997 Family History Problem Relation Name Age of Onset Heart attack Maternal Grandfather Objective Vitals: BP (!) 132/96 (BP Location: Left arm, Patient Position: Sitting, BP Cuff Size: Adult) Pulse 71 Ht 5' 4 (1.626 m) Wt (!) 320 lb 6.4 oz (145 kg) BMI 55.00 kg/m General Appearance: Patient is in no apparent distress. Head is normocephalic, atraumatic Cardiovascular: Regular rate and rhythm. No heart murmurs. No carotid bruit Neurologic: Mentation: Alert and oriented x [address], [address] and time. Speech and Language: Speech and language normal Concentration and Attention: Concentration normal Memory: Memory normal Fund of Knowledge: Fund of knowledge normal Cranial Nerves: II, III, IV, V, , VII, VIII, IX, X, XI, XII examined and were intact. Motor: Strength: Strength 5 out of 5 with normal tone Alternating Movements: Normal Cogwheel Rigidity: None Tone: Tone is normal Tremor / Involuntary Movements: None Deep Tendon Reflexes: 1 out of 4 symmetrical in all four limbs. Sensory: Normal sensation upper and lower extremities Coordination: Normal coordination upper and lower extremities Gait and Station: Station is normal. Gait is normal Data Reviewed and Summarized DIAGNOSTIC TESTING CBC: No results found for: WBC, RBC, HGB, HCT, MCV, MCH, MCHC, RDW, PLT, MPV CMP: Lab Results Component Value Date GLUCOSE 97 10/28/2020 BMP: Lab Results Component Value Date GLUCOSE 97 10/28/2020 PT/INR: No results found for: PROTIME, INR PTT: No results found for: APTT, PTT[APTT} FLP: No results found for: CHLPL, TRIG, HDL, LDLCALC, LDLDIRECT TSH: Lab Results Component Value Date TSH 0.531 10/28/2020 VITAMIN B12: No results found for: XYDMEXOP02 No results found for: PHENYTOIN, PHENOBARB, VALPROATE, CBMZ No components found for: TOPIRA @RESULTINGLABINFO@ No results found for: LEVETIRACETA, FERRITIN, CRP, SUKHDEV, ANCA No results found for: REGLA, IMMUNOGLOBUL, OLIGOBANDS No results found for: NWU84CH, HEPCAB No results found for: CRP, ANATITER, ANCA, ANCA FERRITIN: No results found for: FERRITIN ---- US NON OB TRANSVAGINAL Narrative: Gynecological Report (Signed Final 01/07/2021 01:43 pm) Patient Info ID #: [id number] : [id number] (35 yrs)(F) Name: JOSSE WAYNE Visit Date: 01/06/2021 01:12 pm Performed By Attending: Yessi Location: [facility] Performed By: Bel Lemos Visit Type: [facility] RDMS Referred By: YESSI MUNOZ Service(s) Provided Last Model Department Supervisor Transvaginal [id number] Indications Polycystic ovarian syndrome E28.2 Ovarian cyst (right) N83.201 LMP 01/03/2021 [facility] ultrasound Technique/Scan Quality Technique: Transvaginal Approach Comparison 11/05/2020 History ------- Age: 35 LMP: 01/03/21 Day Of Cycle: 4 Menses: Irregular Hx Comments Non latex cover used. Uterus ------ Uterus: Echogenicity WNL Position: Anteverted Size (cm) L: 9.58 W: 5.27 H: 4.45 Endometrium Endometrium: Normal Thickness(mm): 8.42 Cervix ------ A single cervical cyst is noted. [place] No free fluid was visualized Right Ovary Status: Visualized Size (cm) L: 3.46 W: 2.67 H: 2.27 Vol.(ml): 10.98 Type: Simple cyst Size (cm) L: 1.71 W: 1.62 H: 1.34 Vol.(ml): 1.94 Left Ovary Status: Visualized Size (cm) L: 3.52 W: 2.46 H: 2.28 Vol.(ml): 10.34 Type: Polycystic Impression: Impression The uterine contour and echogenicity appear WNL. The endometrium is echogenic and uniform. Both ovaries are enlarged and have several, small cysts along the periphery of the ovary. This appearance and ovarian volumes over 10 cc can be associated with PCOS. The right ovary also contains a simple cyst. No free fluid or adnexal masses seen. Clinical correlation is required. Patient is scheduled to see Dr. Munoz following ultrasound 01/06/2021. 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 FRANCO Cota CNP I spent 20 minutes caring for this patient today, reviewing labs, records, seeing the patient, documenting in the record and arranging for studies. Electronically signed by @HANNAH@ on @TDNR@ at @NOWNR@ documented in this encounter [facility] 07-08-2022 Instructions FRANCO Cota CNP - 07/08/2022 1:30 PM EDT Continue Keppra 1000mg twice daily (I sent new script for 1000mg tabs-so take 1 tab twice daily) Check level in am PRIOR to am dosing documented in this encounter [facility] 07-01-2022 History of Presen t illness Narrative Josse Wayne is identified through a medication adherence outreach initiative based on pharmacy claims data from [employer] (insurer) for Non-insulin DM medication(s). Patient is reviewed 07/01/22 due to medication adherence concerns with the following medications (name, strength, sig): Metformin 500 mg 1 tablet TID. Per data/report, last fill date and days supply: NA Per reconcile dispense, last fill date and days supply: 05/30/2022 for 30 days Per call to pharmacy, last picked up date and days supply: NA Contacted patient: No answer; left generic VM Outcome of review/outreach: (choose outcome source and status) - Unable to reach patient on first outreach attempt. A voicemail was left. Yesica Wilder Pharm-T documented in this encounter [facility] 06-07-2022 History of Presen t illness Narrative CC: Patient presents with: Nasal Congestion: drainage, cough x 1 month HPI: Josse Wayne is a 36 year old female who presents to the office with complaint of head congestion, cough, nonproductive, and sinus symptoms for a month. Symptoms are staying the same. Associated symptoms includes nasal congestion and facial pain/pressure. Denies fever, nausea, vomiting , and diarrhea. Treatments tried include nothing so far. with no relief of symptoms. Sick contacts: unknown. History of asthma, frequent episodes of bronchitis, chronic bronchitis, bronchiectasis or COPD: No Smoker: No Seasonal/environmental allergies: No The ROS is otherwise negative. The patient's pmh, medications, allergies, and past visits are reviewed. PHYSICAL EXAM: BP 124/82 Pulse 94 Temp 36.9 C (98.5 F) Resp 18 Wt (!) 145.2 kg (320 lb) LMP 08/11/2021 (Exact Date) SpO2 98% BMI 54.93 kg/m General appearance: alert, cooperative, pleasant, in no acute distress Head: Normocephalic Eyes: EOM's intact, conjunctiva pink and moist, no icterus, sclera white, non-injected Ears: Right ear: External ear/canal- Normal, TM - clear with good landmarks. Left ear: External ear/canal- Normal, TM - clear with good landmarks Oropharynx:moist without lesions, No erythema, exudates or tonsillar hypertrophy. Heart: Negative. RRR without obvious murmur, gallop, or rubs. No ectopy. 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 citalopram hydrobromide (CELEXA) 10 mg tablet Take 10 mg by mouth once daily. metFORMIN (GLUCOPHAGE) 500 mg tablet Take 500 mg by mouth three times daily. BIOTIN ORAL Take by mouth. cholecalciferol (VITAMIN D3) 2,000 unit tablet Take 1 tablet by mouth once daily. ferrous sulfate (IRON ORAL) Take by mouth. levETIRAcetam XR (KEPPRA XR) 500 mg 24 hr tablet Take 500 mg each morning and 1000 mg evening. (Patient taking differently: 1,000 mg twice daily. Take 500 mg each morning and 1000 mg evening.) ALPRAZolam (XANAX) 2 mg tablet Take 2 mg by mouth twice daily. 2 mg am 2mg noon 1 mg bedtime benzonatate (TESSALON PERLES) 100 mg capsule Take 1 capsule by mouth three times daily as needed for up to 7 days. loratadine (CLARITIN) 10 mg tablet Take 1 tablet by mouth once daily. predniSONE (DELTASONE) 20 mg tablet Take 2 tablets by mouth once daily for 5 days. doxycycline monohydrate 100 mg tablet Take 1 tablet by mouth twice daily for 7 days. propranolol (INDERAL) 10 mg tablet Take 1 tablet by mouth once daily. (Patient not taking: Reported on 06/07/2022) FAMILY HISTORY Problem Relation Age of Onset other (sudden cardiac arrest) Mother 49 passed in 2007 Cancer Maternal Grandmother Emphysema Maternal Grandmother Heart Maternal Grandfather Stroke Paternal Grandmother Cancer Paternal Grandfather Liver Heart Maternal Aunt open heart surgery Social History Tobacco Use Smoking status: Never Smokeless tobacco: Never Vaping Use Vaping Use: Never used Substance Use Topics Alcohol use: Yes Comment: rare Drug use: No ASSESSMENT/PLAN: 1. Rhinosinusitis - ICD9: 473.9, ICD10: J31.0, J32.9 - BENZONATATE 100 MG CAPSULE - LORATADINE 10 MG TABLET - PREDNISONE 20 MG TABLET - DOXYCYCLINE MONOHYDRATE 100 MG TABLET No testing at this time. Prescription instructions reviewed with patient as applicable. Potential red flag symptoms discussed with the patient. Reviewed appropriate action plan to take if red flag symptoms occur. Patient agreeable to treatment plan. Senait Barron APRN.LIFE INSURANCE UNDERWRITER documented in this encounter [facility] 03-02-2022 Note HNO ID: [id number] Author: Gabe Pierre APRN.LIFE INSURANCE UNDERWRITER Service: ? Author Type: Nurse Practitioner Type: Progress Notes Filed: 03/02/2022 3:39 PM Note Text: This note was created using [employer]. Subjective Josse Wayne is a 36 year old female here today to establish care. PMH PTSD, PCOS, obesity, hirsutism, epilepsy. Former PCP Dr Vazquez in [place]. Anxiety, Depression, PTSD: chronic, stable. She is seeing psychiatrist at [facility]. She is taking Celexa 30 mg daily, xanax and propanolol daily for this. Reports she has been on xanax since 2007. Reports being on propranolol almost a year now. Reports she feels her symptoms are better controlled. Epilepsy: Dx 1 yo, 1988. She reports she had brain surgery in 1997 due to frequent seizures. Reports she was told her surgery would only last 10 yr. She was then started on Keppra in 2008 due to increase seizure. She is taking Keppra 1000 mg twice daily. She is seeing Dr Anderson Pedroza in [place]. Reports last seizure 2012. Reports her keppra was recently was increased. PCOS: chronic, she is seeing Dr Yessi Vann. She is taking metformin 500 mg 3 times a day. Reports she has been on this for about 2 yrs. Face rash: reports on going rash on face. Reports she has tried many lotions, including antifungal, steroid, antibiotics and nothing has worked. This has been ongoing since June Preventative: declines flu and COVID vaccines. She follows up with [facility] regularly. ALLERGIES Allergen Reactions Phenobarbital Rash Current Outpatient Medications Medication Sig Dispense Refill citalopram (CELEXA) 20 mg tablet Take 20 mg by mouth once daily. citalopram hydrobromide (CELEXA) 10 mg tablet Take 10 mg by mouth once daily. metFORMIN (GLUCOPHAGE) 500 mg tablet Take 500 mg by mouth three times daily. propranolol (INDERAL) 10 mg tablet Take 1 tablet by mouth once daily. BIOTIN ORAL Take by mouth. cholecalciferol (VITAMIN D3) 2,000 unit tablet Take 1 tablet by mouth once daily. 90 tablet 3 ferrous sulfate (IRON ORAL) Take by mouth. levETIRAcetam XR (KEPPRA XR) 500 mg 24 hr tablet Take 500 mg each morning and 1000 mg evening. (Patient taking differently: 1,000 mg twice daily. Take 500 mg each morning and 1000 mg evening.) ALPRAZolam (XANAX) 2 mg tablet Take 2 mg by mouth twice daily. 2 mg am 2mg noon 1 mg bedtime No current facility-administered medications for this visit. 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, since child Hirsutism Hypercholesteremia 04/2014 Infertility Obesity, unspecified Obesity Other bipolar disorders PCOS (polycystic ovarian syndrome) Seizure (HCC) PAST SURGICAL HISTORY Procedure Laterality Date EGD TRANSORAL BIOPSY SINGLE/MULTIPLE 05/23/08 PAST SURGICAL HISTORY OF 1997 RIGHT TEMPORAL LOBECTOMY AND IMPLANTATION OF IMPLANTS Social History Tobacco Use Smoking status: Never Smokeless tobacco: Never Vaping Use Vaping Use: Never used Substance Use Topics Alcohol use: Yes Comment: rare Drug use: No Family History Problem Relation Age of Onset other (sudden cardiac arrest) Mother 49 passed in 2008 Cancer Maternal Grandmother Emphysema Maternal Grandmother Heart Maternal Grandfather Stroke Paternal Grandmother Cancer Paternal Grandfather Liver Heart Maternal Aunt open heart surgery Review of Systems Constitutional: Negative for activity change, appetite change, chills, diaphoresis, fatigue, fever and unexpected weight change. HENT: Negative for sore throat and trouble swallowing. Eyes: Negative for photophobia and visual disturbance. Respiratory: Negative for cough, chest tightness, shortness of breath and wheezing. Cardiovascular: Negative for chest pain, palpitations and leg swelling. Gastrointestinal: Negative for abdominal pain, blood in stool, constipation, diarrhea, nausea and vomiting. Endocrine: Negative. Genitourinary: Negative for difficulty urinating, dysuria and hematuria. Musculoskeletal: Negative for arthralgias, back pain, myalgias and neck pain. Skin: Positive for rash. Dry skin Face dryness Neurological: Negative for dizziness, weakness and headaches. Hematological: Negative. Does not bruise/bleed easily. Psychiatric/Behavioral: Positive for dysphoric mood. Negative for behavioral problems and sleep disturbance. The patient is nervous/anxious. Objective BP 110/78 (BP Site: (more content not included)... [facility] 03-02-2022 History of Presen t illness Narrative Images from the original note were not included. This note was created using [employer]. Subjective Josse Wayne is a 36 year old female here today to establish care. PMH PTSD, PCOS, obesity, hirsutism, epilepsy. Former PCP Dr Vazquez in [place]. Anxiety, Depression, PTSD: chronic, stable. She is seeing psychiatrist at [facility]. She is taking Celexa 30 mg daily, xanax and propanolol daily for this. Reports she has been on xanax since 2007. Reports being on propranolol almost a year now. Reports she feels her symptoms are better controlled. Epilepsy: Dx 1 yo, 1988. She reports she had brain surgery in 1997 due to frequent seizures. Reports she was told her surgery would only last 10 yr. She was then started on Keppra in 2008 due to increase seizure. She is taking Keppra 1000 mg twice daily. She is seeing Dr Anderson Pedroza in [place]. Reports last seizure 2012. Reports her keppra was recently was increased. PCOS: chronic, she is seeing Dr Yessi Vann. She is taking metformin 500 mg 3 times a day. Reports she has been on this for about 2 yrs. Face rash: reports on going rash on face. Reports she has tried many lotions, including antifungal, steroid, antibiotics and nothing has worked. This has been ongoing since June Preventative: declines flu and COVID vaccines. She follows up with [facility] regularly. ALLERGIES Allergen Reactions Phenobarbital Rash Current Outpatient Medications Medication Sig Dispense Refill citalopram (CELEXA) 20 mg tablet Take 20 mg by mouth once daily. citalopram hydrobromide (CELEXA) 10 mg tablet Take 10 mg by mouth once daily. metFORMIN (GLUCOPHAGE) 500 mg tablet Take 500 mg by mouth three times daily. propranolol (INDERAL) 10 mg tablet Take 1 tablet by mouth once daily. BIOTIN ORAL Take by mouth. cholecalciferol (VITAMIN D3) 2,000 unit tablet Take 1 tablet by mouth once daily. 90 tablet 3 ferrous sulfate (IRON ORAL) Take by mouth. levETIRAcetam XR (KEPPRA XR) 500 mg 24 hr tablet Take 500 mg each morning and 1000 mg evening. (Patient taking differently: 1,000 mg twice daily. Take 500 mg each morning and 1000 mg evening.) ALPRAZolam (XANAX) 2 mg tablet Take 2 mg by mouth twice daily. 2 mg am 2mg noon 1 mg bedtime No current facility-administered medications for this visit. 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, since child Hirsutism Hypercholesteremia 04/2014 Infertility Obesity, unspecified Obesity Other bipolar disorders PCOS (polycystic ovarian syndrome) Seizure (HCC) PAST SURGICAL HISTORY Procedure Laterality Date EGD TRANSORAL BIOPSY SINGLE/MULTIPLE 05/23/08 PAST SURGICAL HISTORY OF 1997 RIGHT TEMPORAL LOBECTOMY & IMPLANTATION OF IMPLANTS Social History Tobacco Use Smoking status: Never Smokeless tobacco: Never Vaping Use Vaping Use: Never used Substance Use Topics Alcohol use: Yes Comment: rare Drug use: No Family History Problem Relation Age of Onset other (sudden cardiac arrest) Mother 49 passed in 2007 Cancer Maternal Grandmother Emphysema Maternal Grandmother Heart Maternal Grandfather Stroke Paternal Grandmother Cancer Paternal Grandfather Liver Heart Maternal Aunt open heart surgery Review of Systems Constitutional: Negative for activity change, appetite change, chills, diaphoresis, fatigue, fever and unexpected weight change. HENT: Negative for sore throat and trouble swallowing. Eyes: Negative for photophobia and visual disturbance. Respiratory: Negative for cough, chest tightness, shortness of breath and wheezing. Cardiovascular: Negative for chest pain, palpitations and leg swelling. Gastrointestinal: Negative for abdominal pain, blood in stool, constipation, diarrhea, nausea and vomiting. Endocrine: Negative. Genitourinary: Negative for difficulty urinating, dysuria and hematuria. Musculoskeletal: Negative for arthralgias, back pain, myalgias and neck pain. Skin: Positive for rash. Dry skin Face dryness Neurological: Negative for dizziness, weakness and headaches. Hematological: Negative. Does not bruise/bleed easily. Psychiatric/Behavioral: Positive for dysphoric mood. Negative for behavioral problems and sleep disturbance. The patient is nervous/anxious. Objective BP 110/78 (BP Site: Right Arm, BP Position: Sitting, BP Cuff Size: Large Adult) Pulse 82 Temp 36.8 C (98.2 F) (Oral) Resp 24 Ht 162.6 cm (5' 4 ) Wt (!) 139.7 kg (308 lb) LMP 08/11/2021 (Exact Date) SpO2 99% BMI 52.87 kg/m Physical Exam Vitals and nursing note reviewed. Constitutional: General: She is not in acute distress. Appearance: Normal appearance. She is not ill-appearing or diaphoretic. HENT: Head: Normocephalic and atraumatic. Right Ear: External ear normal. Left Ear: External ear normal. Nose: Nose normal. No congestion or rhinorrhea. Mouth/Throat: Pharynx: No oropharyngeal exudate. Eyes: General: Lids are normal. No scleral icterus. Right eye: No discharge. Left eye: No discharge. Conjunctiva/sclera: Conjunctivae normal. Pupils: Pupils are equal, round, and reactive to light. Neck: Vascular: Normal carotid pulses. No carotid bruit. Cardiovascular: Rate and Rhythm: Normal rate and regular rhythm. Pulses: Normal pulses. Heart sounds: Normal heart sounds, S1 normal and S2 normal. No murmur heard. No friction rub. No gallop. Pulmonary: Effort: Pulmonary effort is normal. No accessory muscle usage or respiratory distress. Breath sounds: Normal breath sounds. No decreased breath sounds, wheezing, rhonchi or rales. Chest: Chest wall: No tenderness. Abdominal: General: Bowel sounds are normal. There is no distension. Palpations: Abdomen is soft. Tenderness: There is no abdominal tenderness. Musculoskeletal: General: No tenderness. Normal range of motion. Cervical back: Normal range of motion and neck supple. Right lower leg: No edema. Left lower leg: No edema. Skin: General: Skin is warm and dry. Coloration: Skin is not pale. Findings: No erythema or rash. Nails: There is no clubbing. Neurological: General: No focal deficit present. Mental Status: She is alert and oriented to person, place, and time. Motor: No abnormal muscle tone. Coordination: Coordination normal. Deep Tendon Reflexes: Reflexes are normal and symmetric. Psychiatric: Attention and Perception: Attention and perception normal. Mood and Affect: Mood normal. Speech: Speech normal. Behavior: Behavior normal. Behavior is cooperative. Thought Content: Thought content normal. Cognition and Memory: Cognition and memory normal. Judgment: Judgment normal. ASSESSMENT/PLAN: 1. Encounter for medical examination to establish care - ICD9: V70.9, ICD10: Z00.00 (primary diagnosis) - Counseled on healthy diet and regular exercise - Calcium intake with supplements or by diet of 1000 mg/day for under 50, 0748-5567 mg/day for 50+ - Discussed need and benefit for weight loss. BMI 52.87 kg/(m^2) - Depression screening tool completed and reviewed with patient. Based on score and interview, patient is already diagnosed with depression and recommended no further intervention at this time. - Follow up for annual exam in one year 2. Rash of face - ICD9: 782.1, ICD10: R21 - unknown etiology. She has tried multiple OTC and rx products. Will refer to derm for evaluation and management - CONSULT TO DERMATOLOGY 3. Moderate episode of recurrent major depressive disorder (HCC) - ICD9: 296.32, ICD10: F33.1 - chronic, stable - continue weekly counseling and medications as ordered 4. PCOS (polycystic ovarian syndrome) - ICD9: 256.4, ICD10: E28.2 - Chronic, stable. - continue metformin and management with [facility] 5. 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 Reason for the call/escalation: pt would like a note faxed over to toni who is handling her trsanspotation for the appt would like note to say she was referred to office for appt on 03/02/22 fax [phone] jojo Was Patient Referred to 911/Seek Emergency Treatment (Y/N): n Did Patient Agree (Y/N): n Was An Attempt Made To Transfer The Patient To The Office (Y/N): n Were You Able To Reach Someone At The Office (Y/N): n If Yes - Patient Was Transferred To (Caregivers Name): n If No - Which [facility] Leadership Patch Driller Did You Speak With Regarding This Patient: n Was an appointment scheduled (Y/N): n Reason patient was requesting visit (RFV/signs and symptoms/diagnosis) : na Person calling if other than patient: na Return call to if other than patient: na Best contact number: [phone] Thank you, Jessica Monson February 24, 2022 1:09 PM documented in this encounter [facility] 02-28-2022 Miscellaneous Notes Letter faxed Blessing Amezcua MA ----- Message from Tisha Martinez sent at 02/24/2022 1:28 PM EST ----- Regarding: FW: new pt ----- Message ----- From: Jessica Monson Sent: 02/24/2022 1:11 PM EST To: [facility] Triage Pool Subject: new pt Subject Line Format: Medicine / [Provider Name] / [Issue] Patient has been identified by name and Date of (Y/N): y Patient: Josse Wayne Date of : 1985 Provider for this encounter: No primary care provider on file. Reason for the call/escalation: pt would like a note faxed over to toni who is handling her trsanspotation for the appt would like note to say she was referred to office for appt on 03/02/22 fax [phone] jojo Was Patient Referred to [facility]/Seek Emergency Treatment (Y/N): n Did Patient Agree (Y/N): n Was An Attempt Made To Transfer The Patient To The Office (Y/N): n Were You Able To Reach Someone At The Office (Y/N): n If Yes - Patient Was Transferred To (Caregivers Name): n If No - Which [facility] Leadership Patch Driller Did You Speak With Regarding This Patient: n Was an appointment scheduled (Y/N): n Reason patient was requesting visit (RFV/signs and symptoms/diagnosis) : na Person calling if other than patient: na Return call to if other than patient: na Best contact number: [phone] Thank you, Jessica Monson February 24, 2022 1:09 PM documented in this encounter [facility] 01-21-2022 History of Presen t illness Narrative SUBJECTIVE: Josse Wayne is a 36 year old female who is here for a right knee injury. It occurred after 2 falls, 1 3 weeks ago and another 1 week ago when she landed on the front of the knee. Symptoms include pain over the front of the knee, pain with range of motion, swelling over the front of the knee. She has tried rest and ice with minimal improvement. 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 citalopram hydrobromide (CELEXA) 10 mg tablet Take 10 mg by mouth once daily. metFORMIN (GLUCOPHAGE) 500 mg tablet Take 500 mg by mouth three times daily. propranolol (INDERAL) 10 mg tablet Take 1 tablet by mouth once daily. BIOTIN ORAL Take by mouth. cholecalciferol (VITAMIN D3) 2,000 unit tablet Take 1 tablet by mouth once daily. ferrous sulfate (IRON ORAL) Take by mouth. levETIRAcetam XR (KEPPRA XR) 500 mg 24 hr tablet Take 500 mg each morning and 1000 mg evening. ALPRAZolam (XANAX) 2 mg tablet Take 2 mg by mouth twice daily. etodolac (LODINE) 400 mg tablet Take 1 tablet by mouth twice daily. (Patient not taking: Reported on 07/09/2021 ) No current facility-administered medications on file prior to visit. EXAM: General: cooperative and NAD Location: Right knee: tenderness and soft tissue swelling over the anterior knee. Tenderness with palpation over the anterior patella. No extension lag or restriction with full knee extension. Pain with palpation over the lateral joint line of the knee. No significant laxity with varus, valgus, or drawer testing. Negative for: laceration Neurovascular: intact IMPRESSION: Anterior knee pain with prepatellar bursa contusion PLAN: Continue with activity modification, ice, compression wrap as needed. Risks, benefits, alternatives and personnel discussed with patient who consents to proceed. Patient wished to proceed. 6mg celestonewith 2cc, 1% lidocaine and 2cc .5% marcaine was injected. Injection was carried out under sterile conditions through a LATERAL PARAPATELLAR site into the knee joint. Patient had no immediate complications and tolerated the procedure well. Anthony Garvin DO AMB ROOMING INTAKE FLOWSHEET DATA Risk Screening Do you have concerns about personal safety or safety in the home?: No Pain Pain Level: 4 Pain Location: Knee-Right Description: Tightness, Stiffness Duration Amount of Time: 3 Duration Units: Weeks Frequency: Continuous Intervention/Comfort measure: Heat documented in this encounter [facility] 09-28-2021 Miscellaneous Notes Pt returned call and was given below information. Carol Mae LPN Message left asking pt to call the office for test results. Carol Mae LPN Please let the pt know that her blood is negative for infection. Katerine Hanson APRN.ALEJANDRO documented in this encounter [facility] 08-05-2021 History of Presen t illness Narrative POPULATION HEALTH NAVIGATION OUTREACH Action/FYI Patient returned my call Patient does not have a PCP at [facility] and does not want one. Patient would like the Population Health Navigation calls to end, she may sometimes use the [facility] walk in clinic or E.R. if needed but will not use outpatient providers at [facility]. Entered information into patient's demographics Pt identified by name and : YES, via phone Outreach Outcome/Action Spoke to patient or caregiver: PCP confirmed / updated Patient declined Navigation Signature: Soha Mathew MA August 05, 2021 2:42 PM POPULATION HEALTH NAVIGATION OUTREACH Action/FYI Care Gap Reviewed:: Annual Wellness visit - verify PCP Maria Isabelt Pt identified by name and : NO Outreach Outcome/Action Unable to reach patient: Left message Reason for Outreach Care Gap or Scheduling/Wellness visits Payer: Payor: [employer] / Plan: mCASH HMO / Product Type: HMO / Care Gap Reviewed:: Annual Wellness visit Reminder: Reminder note to check Health Maintenance for items below Health Maintenance items due: COVID-19 VACCINE(1) Never done DEPRESSION SCREENING due on 01/29/2019 PAP TESTING due on 04/15/2021 HPV TESTING due on 04/15/2021 Message Sent to Practice: No Navigation Signature: Soha Mathew MA August 05, 2021 8:06 AM documented in this encounter [facility] 07-09-2021 Instructions Bela Joseph APRN.CNP - 07/09/2021 7:37 PM EDT ASSESSMENT/PLAN: 1. TMJ pain dysfunction syndrome - ICD9: 524.69, ICD10: M26.629 - ice packs to left TMJ area - PREDNISONE 10 MG TABLET - Follow-up with your PCP or dentist in 3-5 days if symptoms have not improved or sooner if symptoms worsen - Discussed red flags and need for immediate medical evaluation if any occur. - Discussed supportive care treatment with fluids, rest and analgesia. - Discussed expected course of illness Bela Joseph APRN.CNP TEMPOROMANDIBULAR JOINT (TMJ) PAIN: Your exam shows that you have a problem with your TMJ, the joint that moves when you open your mouth or chew food. TMJ problems can result from direct injuries, bite abnormalities, or tension states which cause you to grind or clench your teeth. Typical symptoms include pain around the joint, clicking, restricted movement, and headaches. The TMJ is like any other joint in the body; when it is strained, it needs rest to repair itself. To keep the joint at rest it is important that you do not open your mouth wider than the width of your index finger. If you must yawn, be sure to support your chin with your hand so your mouth does not open wide. Eat a soft diet (nothing firmer than ground beef, no raw vegetables), and do not talk if it causes you pain. Anti-inflammatory pain medicine and muscle relaxants can also be helpful. A dental orthotic or splint may be used for temporary relief. Long-term problems may require treatment for stress as well as braces or surgery. Please check with your doctor or dentist if your symptoms do not improve within one week. documented in this encounter [facility] 07-09-2021 History of Presen t illness Narrative Subjective HPI Josse Wayne is a 36 year old female who presents with left jaw or ear pain. She states sometimes it feels like her ear and sometimes like her jaw, but her teeth are not bothering her. She has increased pain when she opens her mouth wide, chews, or yawns. She rates the pain 8/10. She has not taken any medication for this at home. Review of Systems Constitutional: Negative for chills and fever. HENT: Positive for ear pain. Negative for congestion, hearing loss, sore throat and tinnitus. See HPI Respiratory: Negative for cough. Cardiovascular: Negative. Skin: Negative for itching and rash. 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 cholecalciferol (VITAMIN D3) 2,000 unit tablet Take 1 tablet by mouth once daily. ferrous sulfate (IRON ORAL) Take by mouth. levETIRAcetam XR (KEPPRA XR) 500 mg 24 hr tablet Take 500 mg each morning and 1000 mg evening. ALPRAZolam (XANAX) 2 mg tablet Take 2 mg by mouth twice daily. predniSONE (DELTASONE) 10 mg tablet Take 4 tabs daily for 3 days, then 2 tabs daily for 3 days, then 1 tab daily for 3 days with food. etodolac (LODINE) 400 mg tablet Take 1 tablet by mouth twice daily. FAMILY HISTORY Problem Relation Age of Onset other (sudden cardiac arrest) Mother 49 passed in 2007 Cancer Maternal Grandmother Emphysema Maternal Grandmother Heart Maternal Grandfather Stroke Paternal Grandmother Cancer Paternal Grandfather Liver Heart Maternal Aunt open heart surgery Social History Tobacco Use Smoking status: Never Smoker Smokeless tobacco: Never Used Vaping Use Vaping Use: Never used Substance Use Topics Alcohol use: No Drug use: No Objective Physical Exam Vitals and nursing note reviewed. Constitutional: Appearance: She is obese. HENT: Head: Jaw: There is normal jaw occlusion. Trismus, tenderness (left TMJ) and pain on movement present. No swelling or malocclusion. Right Ear: Tympanic membrane, ear canal and external ear normal. Left Ear: Tympanic membrane, ear canal and external ear normal. Nose: Nose normal. Mouth/Throat: Lips: [place]. Mouth: Mucous membranes are moist. Dentition: Normal dentition. Pharynx: Oropharynx is clear. Cardiovascular: Rate and Rhythm: Normal rate. Pulmonary: Effort: Pulmonary effort is normal. Neurological: Mental Status: She is alert. ASSESSMENT/PLAN: 1. TMJ pain dysfunction syndrome - ICD9: 524.69, ICD10: M26.629 - ice packs to left TMJ area - PREDNISONE 10 MG TABLET - Follow-up with your PCP or dentist in 3-5 days if symptoms have not improved or sooner if symptoms worsen - Discussed red flags and need for immediate medical evaluation if any occur. - Discussed supportive care treatment with fluids, rest and analgesia. - Discussed expected course of illness Bela Joseph APRN.CNP documented in this encounter [facility] 10-20-2020 History of Presen t illness Narrative Radiology Service Progress Note PATIENT NAME: Josse Wayne DATE OF SERVICE: October 20, 2020 TIME: 5:54 PM PATIENT IDENTITY VERIFICATION COMPLETED USING TWO (2) IDENTIFIERS: Name and Date of confirmed by patient verbally. FALL SCREENING: Has the patient had 2 falls in the last year or 1 fall with injury or currently using an Ambulatory Assistive Device (Walker, Cane, Wheelchair, Crutches, etc.)? No PATIENT GENDER DATA: Female. status: : No status: NO. PATIENT RELEVANT IMPLANT DATA REVIEWED: Not Applicable RADIOLOGY DEPARTMENT: General X-ray: Exam(s) Completed: Lower Extremity X-Ray(s): Knee, AP / Lat / Tunne / Merchant Right and Wt. Bearing PERIPHERAL IV DATA: Not applicable SIGNED BY: RT Sylwia(R) October 20, 2020 5:54 PM documented in this encounter [facility] 07-13-2015 History of Past i llness Narrative Problem Noted Date Resolved Date Morbid obesity due to excess calories 07/13/2015 03/12/2020 Excessive and frequent menstruation with irregul ar cycle 07/07/2015 07/13/2015 Seizure 06/01/2015 03/12/2020 Overview: Dr. Ordonez Gonorrhea 03/19/2013 03/12/2020 Acute gastritis without mention of hemorrhage 04/11/2018 Other symptoms referable to back 11/27/2006 04/11/2018 ABSCESS ABDOMINAL WALL 05/30/2005 0 documented as of this encounter (statuses as of 07/09/2021) [facility] History of Past illness Narrative* Problem Noted Date Resolved Date Morbid obesity due to excess calories 07/13/2015 03/12/2020 Excessive and frequent menstruation with irregul ar cycle 07/07/2015 07/13/2015 Seizure 06/01/2015 03/12/2020 Overview: Dr. Ordonez Gonorrhea 03/19/2013 03/12/2020 Acute gastritis without mention of hemorrhage 04/11/2018 Other symptoms referable to back 11/27/2006 04/11/2018 ABSCESS ABDOMINAL WALL 05/30/2005 0 documented as of this encounter (statuses as of 08/05/2021) [facility] History of Past illness Narrative* Problem Noted Date Resolved Date Morbid obesity due to excess calories 07/13/2015 03/12/2020 Excessive and frequent menstruation with irregul ar cycle 07/07/2015 07/13/2015 Seizure 06/01/2015 03/12/2020 Overview: Dr. Ordonez Gonorrhea 03/19/2013 03/12/2020 Acute gastritis without mention of hemorrhage 04/11/2018 Other symptoms referable to back 11/27/2006 04/11/2018 ABSCESS ABDOMINAL WALL 05/30/2005 0 documented as of this encounter (statuses as of 09/28/2021) [facility] History of Past illness Narrative* Problem Noted Date Resolved Date Morbid obesity due to excess calories 07/13/2015 03/12/2020 Excessive and frequent menstruation with irregul ar cycle 07/07/2015 07/13/2015 Seizure 06/01/2015 03/12/2020 Overview: Dr. Ordonez Gonorrhea 03/19/2013 03/12/2020 Acute gastritis without mention of hemorrhage 04/11/2018 Other symptoms referable to back 11/27/2006 04/11/2018 ABSCESS ABDOMINAL WALL 05/30/2005 0 documented as of this encounter (statuses as of 01/21/2022) [facility] History of Past illness Narrative* Problem Noted Date Resolved Date Morbid obesity due to excess calories 07/13/2015 03/12/2020 Excessive and frequent menstruation with irregul ar cycle 07/07/2015 07/13/2015 Seizure 06/01/2015 03/12/2020 Overview: Dr. Ordonez Gonorrhea 03/19/2013 03/12/2020 Acute gastritis without mention of hemorrhage 04/11/2018 Other symptoms referable to back 11/27/2006 04/11/2018 ABSCESS ABDOMINAL WALL 05/30/2005 0 documented as of this encounter (statuses as of 02/28/2022) [facility] History of Past illness Narrative* Problem Noted Date Resolved Date Morbid obesity due to excess calories 07/13/2015 03/12/2020 Excessive and frequent menstruation with irregul ar cycle 07/07/2015 07/13/2015 Seizure 06/01/2015 03/12/2020 Overview: Dr. Ordonez Gonorrhea 03/19/2013 03/12/2020 Acute gastritis without mention of hemorrhage 04/11/2018 Other symptoms referable to back 11/27/2006 04/11/2018 Bipolar disorder, unspecified 03/31/2006 ABSCESS ABDOMINAL WALL 05/30/2005 0 documented as of this encounter (statuses as of 03/02/2022) [facility] History of Past illness Narrative* Problem Noted Date Resolved Date Morbid obesity due to excess calories 07/13/2015 03/12/2020 Excessive and frequent menstruation with irregul ar cycle 07/07/2015 07/13/2015 Seizure 06/01/2015 03/12/2020 Overview: Dr. Ordonez Gonorrhea 03/19/2013 03/12/2020 Acute gastritis without mention of hemorrhage 04/11/2018 Other symptoms referable to back 11/27/2006 04/11/2018 Bipolar disorder, unspecified 03/31/2006 ABSCESS ABDOMINAL WALL 05/30/2005 0 documented as of this encounter (statuses as of 06/07/2022) [facility] History of Past illness Narrative* Problem Noted Date Resolved Date Morbid obesity due to excess calories 07/13/2015 03/12/2020 Excessive and frequent menstruation with irregul ar cycle 07/07/2015 07/13/2015 Seizure 06/01/2015 03/12/2020 Overview: Dr. Ordonez Gonorrhea 03/19/2013 03/12/2020 Acute gastritis without mention of hemorrhage 04/11/2018 Other symptoms referable to back 11/27/2006 04/11/2018 Bipolar disorder, unspecified 03/31/2006 ABSCESS ABDOMINAL WALL 05/30/2005 0 documented as of this encounter (statuses as of 07/01/2022) [facility] History of Past illness Narrative* Problem Noted Date Resolved Date Morbid obesity due to excess calories 07/13/2015 03/12/2020 Excessive and frequent menstruation with irregul ar cycle 07/07/2015 07/13/2015 Seizure 06/01/2015 03/12/2020 Overview: Dr. Ordonez Gonorrhea 03/19/2013 03/12/2020 Acute gastritis without mention of hemorrhage 04/11/2018 Other symptoms referable to back 11/27/2006 04/11/2018 Bipolar disorder, unspecified 03/31/2006 ABSCESS ABDOMINAL WALL 05/30/2005 0 documented as of this encounter (statuses as of 07/22/2022) [facility] History of Past illness Narrative* Problem Noted Date Resolved Date Morbid obesity due to excess calories 07/13/2015 03/12/2020 Excessive and frequent menstruation with irregul ar cycle 07/07/2015 07/13/2015 Seizure 06/01/2015 03/12/2020 Overview: Dr. Ordonez Gonorrhea 03/19/2013 03/12/2020 Acute gastritis without mention of hemorrhage 04/11/2018 Other symptoms referable to back 11/27/2006 04/11/2018 Bipolar disorder, unspecified 03/31/2006 ABSCESS ABDOMINAL WALL 05/30/2005 0 documented as of this encounter (statuses as of 09/05/2022) [facility] History of Past illness Narrative* Problem Noted Date Diagnosed Date Resolved Date Morbid obesity due to excess calories 07/13/2015 03/12/2020 Excessive and frequent menst ruation with irregular cycle 07/07/2015 07/13/2015 Seizure 06/01/2015 03/12/2020 Overview: Dr. Ordonez Gonorrhea 03/19/2013 03/12/2020 Acute gastritis without mention of hemorrhage 05/24/19 09 04/11/2018 Other symptoms referable to back 11/27/2006 04/11/2018 Bipolar disorder, unspecified 03/31/2006 03/02/2022 ABSCESS ABDOMINAL WALL 05/30/200504/14 documented as of this encounter (statuses as of 02/14/2023) [facility] History of Past illness Narrative* Problem Noted Date Diagnosed Date Resolved Date Morbid obesity due to excess calories 07/13/2015 03/12/2020 Excessive and frequent menst ruation with irregular cycle 07/07/2015 07/13/2015 Seizure 06/01/2015 03/12/2020 Overview: Dr. Ordonez Gonorrhea 03/19/2013 03/12/2020 Acute gastritis without mention of hemorrhage 05/24/19 09 04/11/2018 Other symptoms referable to back 11/27/2006 04/11/2018 Bipolar disorder, unspecified 03/31/2006 03/02/2022 ABSCESS ABDOMINAL WALL 05/30/200504/14 documented as of this encounter (statuses as of 04/26/2023) [facility] History of Past illness Narrative* Problem Noted Date Diagnosed Date Resolved Date Morbid obesity due to excess calories 07/13/2015 03/12/2020 Excessive and frequent menst ruation with irregular cycle 07/07/2015 07/13/2015 Seizure 06/01/2015 03/12/2020 Overview: Dr. Ordonez Gonorrhea 03/19/2013 03/12/2020 Acute gastritis without mention of hemorrhage 05/24/19 09 04/11/2018 Other symptoms referable to back 11/27/2006 04/11/2018 Bipolar disorder, unspecified 03/31/2006 03/02/2022 ABSCESS ABDOMINAL WALL 05/30/200504/14 documented as of this encounter (statuses as of 05/10/2023) [facility] note* Diagnosis PCOS (polycystic ovarian syndrome) Polycystic ovaries Acute vaginitis Vaginitis and vulvovaginitis, unspecified Other disorders of pituitary gland (HCC) Other ovarian dysfunction Other ovarian dysfunction [facility]: Evaluation [facility]* Diagnosis Hot flashes Symptomatic menopausal or female climacteric states documented in this encounter [facility] Work Phone: Evaluation note* Diagnosis TMJ pain dysfunction syndrome- Primary Other specified temporomandibular joint disorders documented in this encounter [facility] note* Diagnosis Contusion of right lower extremity, subsequent encounter- Primary Prepatellar bursitis, right knee documented in this encounter [facility] note* Diagnosis Encounter for medical examination to establish care- Primary Rash of face Rash and other nonspecific skin eruption Moderate episode of recurrent major depressive disorder (HCC) PCOS (polycystic ovarian syndrome) Polycystic ovaries 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 documented in this encounter [facility] note* Diagnosis Rhinosinusitis- Primary Unspecified sinusitis (chronic) documented in this encounter [facility] note* Diagnosis 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, not intractable, without status epilepticus (HCC)- Primary documented in this encounter [facility] note* Diagnosis Sinobronchitis- Primary Unspecified sinusitis (chronic) Acute otitis media, left Unspecified otitis media documented in this encounter [facility] note* Diagnosis Sore throat- Primary Acute pharyngitis Papule of skin documented in this encounter [facility] note* Diagnosis 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, not intractable, without status epilepticus (HCC)- Primary documented in this encounter [facility] note* Diagnosis Right knee pain, unspecified chronicity- Primary documented in this encounter [facility] note* Diagnosis Osteoarthritis of right knee, unspecified osteoarthritis type- Primary documented in this encounter [facility] note* Diagnosis Right knee pain, unspecified chronicity documented in this encounter [facility] note* Diagnosis Primary osteoarthritis of both knees- Primary Primary localized osteoarthrosis, lower leg documented in this encounter [facility] note* Diagnosis Right knee injury, initial encounter documented in this encounter [facility] for referral (narrative)* Diagnostic Procedure Only (Routine) - Pending Review Specialty Diagnoses / Procedures Referred By Contac t Referred To Contact XR IMAGING Diagnoses Right knee pain, unspecified chronicity Procedures XR KNEE GENERAL 4V AP BOTH/PA BOTH/LAT/MERC RIGHT RADIOLOGIC EXAM KNEE COMPLETE 4/MORE VIEWS Anthony Garvin V, DO [address] [place] [address] [place] [address] Referral ID Status Reason Start Date Expiration Date Visits Requested Visits Authorized [id number] Pending Review Auto-Generat ed Referral 08/15/2023 09/13/2024 1 1 [facility] for referral (narrative)* Diagnostic Procedure Only (Urgent) - Closed Specialty Diagnoses / Procedures Referred By Contac t Referred To Contact XR IMAGING Diagnoses Right knee injury, initial encounter Procedures XR KNEE GENERAL 4V AP BOTH/PA BOTH/LAT/MERC RT KNEE AP-WGT/LAT/MERCHANT Luisa Khoury PA-C [address] [place] [address] [place] [address] Referral ID Status Reason Start Date Expiration Date V isits Requested Visits Authorized [id number] Closed Auto-Generate d Referral 10/20/2020 11/19/2021 1 1 [facility] for visit Narrative* Diagnostic Procedure Only (Routine) - Closed Specialty Diagnoses / Procedures Referred By Contac t Referred To Contact XR IMAGING Diagnoses Right knee pain, unspecified chronicity Procedures XR KNEE GENERAL 4V AP BOTH/PA BOTH/LAT/MERC RIGHT RADIOLOGIC EXAM KNEE COMPLETE 4/MORE VIEWS Anthony Garvin, [place], DO [address] [place] [address] [place] [address] Referral ID Status Reason Start Date Expiration Date V isits Requested Visits Authorized [id number] Closed Auto-Generate d Referral 08/15/2023 09/13/2024 1 [facility] Diagnostic Procedure Only (Urgent) - Closed Specialty Diagnoses / Procedures Referred By Robson song Referred To Contact XR IMAGING Diagnoses Right knee injury, initial encounter Procedures XR KNEE GENERAL 4V AP BOTH/PA BOTH/LAT/MERC RT KNEE AP-WGT/LAT/MERCHANT Luisa Khoury, PA-C [address] [place] [address] [place] [address] Referral ID Status Reason Start Date Expiration Date V isits Requested Visits Authorized [id number] Closed Auto-Generate d Referral 10/20/2020 11/19/2021 1 1 [facility] Summary Purpose Family History No Family History Records FoundNo Family History Records FoundNo Family History Records FoundNo Family History Records FoundNo Family History Records FoundNo Family History Records Found Advance Directives No Advanced Directives Records FoundDocuments on File Type Date Recorded 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 ACP-Advance Directive ACP-Power of Manager Pediatric Latest Code Status on File Code Status Date Activated Date Inactivated Comments Full Code 11/01/2016 11:14 PM 11/07/2016 10:23 PM Documents on File Type Date Recorded 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 Given 01/21/2022 11:59 AM EST 6 mg Reason for Referral Specialty Diagnoses / Procedures Referred By Robson song Referred To Contact Diagnoses Rash of face Procedures CONSULT TO DERMATOLOGY OFFICE/OUTPATIENT NEW HIGH MDM 60-74 MINUTES Gabe Pierre, FRANCO.LIFE INSURANCE UNDERWRITER [address] [place] [address] Broadcast Traffic Coordinator, Gaby Myers [address] [facility], [address] [place] [address] Referral ID Status Reason Start Date Expiration Date Visits Requested Visits Authorized [id number] Pending Review PCP Requested Referral 2 03/02/2023 1 1 Additional Source Comments INFORMATION SOURCE (unrecogn ized section and content) DATE CREATED AUTHOR 04/24/2018 [facility] DATE CREATED AUTHOR AUTHOR'S ORGANIZ ATION 09/12/2018 [facility] DATE CREATED AUTHOR AUTHOR'S ORGANIZ ATION 01/01/2021 [facility] DATE CREATED AUTHOR AUTHOR'S ORGANIZ ATION 01/08/2023 [facility] DATE CREATED AUTHOR AUTHOR'S ORGANIZ ATION 10/12/2023 [facility] DATE CREATED AUTHOR AUTHOR'S ORGANIZ ATION 01/05/2024 [facility] Source Comments (unrecognize d section and content) In the event this informatio n is protected by the Federal Confidentiality of Alcohol and Drug Abuse Patient Records regulations: The Federal rules restrict any use of the information to criminally investigate or prosecute any alcohol or drug abuse patient.[facility] the event this information is protected by the Federal Confidentiality of Alcohol and Drug Abuse Patient Records regulations: The Federal rules restrict any use of the information to criminally investigate or prosecute any alcohol or drug abuse patient.[facility] the event this information is protected by the Federal Confidentiality of Alcohol and Drug Abuse Patient Records regulations: The Federal rules restrict any use of the information to criminally investigate or prosecute any alcohol or drug abuse patient.[facility] the event this information is protected by the Federal Confidentiality of Alcohol and Drug Abuse Patient Records regulations: The Federal rules restrict any use of the information to criminally investigate or prosecute any alcohol or drug abuse patient.[facility] the event this information is protected by the Federal Confidentiality of Alcohol and Drug Abuse Patient Records regulations: The Federal rules restrict any use of the information to criminally investigate or prosecute any alcohol or drug abuse patient.[facility] the event this information is protected by the Federal Confidentiality of Alcohol and Drug Abuse Patient Records regulations: The Federal rules restrict any use of the information to criminally investigate or prosecute any alcohol or drug abuse patient.[facility] the event this information is protected by the Federal Confidentiality of Alcohol and Drug Abuse Patient Records regulations: The Federal rules restrict any use of the information to criminally investigate or prosecute any alcohol or drug abuse patient.[facility] the event this information is protected by the Federal Confidentiality of Alcohol and Drug Abuse Patient Records regulations: The Federal rules restrict any use of the information to criminally investigate or prosecute any alcohol or drug abuse patient.[facility] the event this information is protected by the Federal Confidentiality of Alcohol and Drug Abuse Patient Records regulations: The Federal rules restrict any use of the information to criminally investigate or prosecute any alcohol or drug abuse patient.[facility] the event this information is protected by the Federal Confidentiality of Alcohol and Drug Abuse Patient Records regulations: The Federal rules restrict any use of the information to criminally investigate or prosecute any alcohol or drug abuse patient.[facility] the event this information is protected by the Federal Confidentiality of Alcohol and Drug Abuse Patient Records regulations: The Federal rules restrict any use of the information to criminally investigate or prosecute any alcohol or drug abuse patient.[facility] the event this information is protected by the Federal Confidentiality of Alcohol and Drug Abuse Patient Records regulations: The Federal rules restrict any use of the information to criminally investigate or prosecute any alcohol or drug abuse patient.[facility] the event this information is protected by the Federal Confidentiality of Alcohol and Drug Abuse Patient Records regulations: The Federal rules restrict any use of the information to criminally investigate or prosecute any alcohol or drug abuse patient.[facility] the event this information is protected by the Federal Confidentiality of Alcohol and Drug Abuse Patient Records regulations: The Federal rules restrict any use of the information to criminally investigate or prosecute any alcohol or drug abuse patient.[facility] the event this information is protected by the Federal Confidentiality of Alcohol and Drug Abuse Patient Records regulations: The Federal rules restrict any use of the information to criminally investigate or prosecute any alcohol or drug abuse patient.[facility] the event this information is protected by the Federal Confidentiality of Alcohol and Drug Abuse Patient Records regulations: The Federal rules restrict any use of the information to criminally investigate or prosecute any alcohol or drug abuse patient.[facility] the event this information is protected by the Federal Confidentiality of Alcohol and Drug Abuse Patient Records regulations: The Federal rules restrict any use of the information to criminally investigate or prosecute any alcohol or drug abuse patient.[facility] the event this information is protected by the Federal Confidentiality of Alcohol and Drug Abuse Patient Records regulations: The Federal rules restrict any use of the information to criminally investigate or prosecute any alcohol or drug abuse patient.[facility] the event this information is protected by the Federal Confidentiality of Alcohol and Drug Abuse Patient Records regulations: The Federal rules restrict any use of the information to criminally investigate or prosecute any alcohol or drug abuse patient.[facility] the event this information is protected by the Federal Confidentiality of Alcohol and Drug Abuse Patient Records regulations: The Federal rules restrict any use of the information to criminally investigate or prosecute any alcohol or drug abuse patient.[facility] the event this information is protected by the Federal Confidentiality of Alcohol and Drug Abuse Patient Records regulations: The Federal rules restrict any use of the information to criminally investigate or prosecute any alcohol or drug abuse patient.[facility] Reason for Visit (unrecogniz ed section and content) Reason Comments Pain Pt reported jaw, (LT ) ear pain rated 8, x2 weeks Reason Onset Date Comments Population Health Navigation Outreach 08/05/2021 [place] Attribution Care Gaps Reason Comments Results Reason Comments Right Knee Pain Reason Comments Appointment Reason Comments Patient Question Reason Comments Nasal Congestion drainage, cough x 1 month Reason Onset Date Comments Allied Health Visit 07/01/2022 Medication A dherence Outreach Reason Comments Follow-up Seizure Reason Onset Date Comments Lab work 07/13/2022 Release of Information 07/13/2022 Reason Onset Date Comments Allied Health Visit 07/22/2022 Medication A dherence Outreach Reason Comments Med Refill Reason Onset Date Comments Population Health Navigation Outreach 02/14/2023 [place] Attribution Member- Chart review Reason Comments Cough Cough, chest congest ion, left ear pain and St x 5 days Reason Comments Sore Throat Left ear pain x 1 we ekBump on back of right leg, possible infected hair x 1 year Reason Comments Follow-up Seizures Reason Comments Insurance Authorization Prior Auth Delay ed: Additional Info Needed Reason Comments Insurance Authorization Reason Comments Gel One referral Care Teams (unrecognized sec tion and content) Patch Driller Relationship Specialty Start Date End Date Gabe Pierre, INFORMATION TECHNOLOGY COORDINATOR.LIFE INSURANCE UNDERWRITER [address] [place], [place] [phone] PCP - General Internal Medicine 03/03/22 Patch Driller Relationship Specialty Start Date End Date Gabe Pierre, INFORMATION TECHNOLOGY COORDINATOR.LIFE INSURANCE UNDERWRITER [address] [place], [place] [phone] PCP - General Internal Medicine 03/03/22 Patch Driller Relationship Specialty Start Date End Date Carol Noonan DO [address] [place] [address] PCP - General Family Medicine 07/08/22 Patch Driller Relationship Specialty Start Date End Date Carol Noonan DO [address] [place] [address] PCP - General Family Medicine 07/08/22 Patch Driller Relationship Specialty Start Date End Date Gabe Pierre, INFORMATION TECHNOLOGY COORDINATOR.LIFE INSURANCE UNDERWRITER [address] [facility] [place] [place] [phone] PCP - General Internal Medicine 03/03/22 Patch Driller Relationship Specialty Start Date End Date Carol Noonan DO [address] [place] [phone] PCP - General Family Medicine 07/08/22 Patch Driller Relationship Specialty Start Date End Date Gabe Pierre, INFORMATION TECHNOLOGY COORDINATOR.LIFE INSURANCE UNDERWRITER [address] [place], [place] [phone] PCP - General Internal Medicine 03/03/22 Patch Driller Relationship Specialty Start Date End Date Carol Noonan DO [address] [place] [id number] PCP - General Family Medicine 07/08/22 Patch Driller Relationship Specialty Start Date End Date Gabe Pierre, INFORMATION TECHNOLOGY COORDINATOR.LIFE INSURANCE UNDERWRITER [address] [facility] [place] [phone] PCP - General Internal Medicine 03/03/22 Patch Driller Relationship Specialty Start Date End Date Palma Neri (Pss) PCP - General 05/10/23 Patch Driller Relationship Specialty Start Date End Date Carol Noonan DO [address] [place] [phone] PCP - General Family Medicine 07/08/22 Patch Driller Relationship Specialty Start Date End Date Palma Neri (Pss) PCP - General 05/10/23 Patch Driller Relationship Specialty Start Date End Date Palma Neri (Pss) PCP - General 05/10/23 Patch Driller Relationship Specialty Start Date End Date Palma Neri (Pss) PCP - General 05/10/23 Patch Driller Relationship Specialty Start Date End Date Palma Neri (Pss) PCP - General 05/10/23 Patch Driller Relationship Specialty Start Date End Date Palma Neri (Pss) PCP - General 05/10/23 Patch Driller Relationship Specialty Start Date End Date VazquezAbdirashid carrasco DO [address] [place] [address] PCP - General Family Medicine 01/02/18 01/02/21 FOR RECORDS PERTAINING TO PATIENTS WHO ARE OR HAVE BEEN ENROLLED IN A CHEMICAL DEPENDENCY/SUBSTANCEABUSE PROGRAM, SOME INFORMATION MAY BE OMITTED. This clinical summary was aggregated from multiple sources. Caution should be exercised in using it in the provision of clinical care. This summary normalizes information from multiple sources, and as a consequence, information in this document may materially change the coding, format and clinical context of patient data. In addition, data may be omitted in some cases. CLINICAL DECISIONS SHOULD BE BASED ON THE PRIMARY CLINICAL RECORDS. [facility]. provides no warranty or guarantee of the accuracy or completeness of information in this document.
[2024-01-05 12:39] LABS: Hematocrit 40.8 % (37-47); Hemoglobin 13.9 g/dL (12.0-15.0); Mean Corp Hgb Conc 34.1 g/dL (32-36); Mean Corpuscular Hgb 29.7 pg (27.0-32.0); Mean Corpuscular Volume 87.2 fL (81-99); Mean Platelet Vol. 9.8 fl (6.2-12.0); Platelet Count 331 K/mm3 (150-450); RBC Distribution Width CV 12.1 % (11.6-14.6); RBC Distribution Width SD 38.4 fl (35.1-43.9); Red Blood Count 4.68 M/mm3 (4.2-5.4); White Blood Count 5.4 K/mm3 (4.4-11.0)
[2024-01-05 13:12] LABS: hCG Titer Quant., Serum < 1 mIU/mL (1-3)
[2024-01-05 13:17] LABS: Glucose 130 mg/dL (74-106)
[2024-01-10 02:08] LABS: 17-Hydroxyprogesterone 59 ng/dL (.)
[2024-01-12 15:09] LABS: Insulin Level 40.8 uIU/mL (2.6-24.9); PROLACTIN 12.6 ng/mL (4.8-33.4); Testosterone, Free 1.77 ng/dL (0.10-0.85); Testosterone, Total 77 ng/dL (8-60)
== END | disposition home or self-care (01) ==
LOC: LAB 11:29
PROVIDERS: PCP Family Medicine
DX: N92.4 Excessive bleeding in the premenopausal period (principal)
CPT/HCPCS: 36415; 82627; 82947; 83498; 83525; 84146; 84402; 84403; 84443; 84702; 85027; 82626

== ENCOUNTER → 2024-02-06 | Outpatient (CLI) | payer MEDICARE, MEDICAID, SELFPAY ==
--- NOTE | 2024-02-06 13:18 | RAD_ITS ---
EXAM: XR CERVICAL SPINE, 4 OR 5 VIEWS CLINICAL INDICATION: Numbness in right TECHNIQUE: Frontal, lateral and bilateral oblique views of the cervical spine. COMPARISON: No relevant prior studies available. FINDINGS: VERTEBRAE: Unremarkable. Preserved vertebral body height. No acute fracture. No spondylolisthesis. Preservation of the normal cervical lordosis. No significant facet arthropathy. DISC SPACES: Unremarkable. Disc spaces are maintained. SOFT TISSUES: Unremarkable. No prevertebral soft tissue widening. LUNG APICES: Clear. RAD/Cerv Spine 4 or 5 Views IMPRESSION: No evidence of acute fracture or spondylolisthesis. Electronically Signed: Jean-Claude Gandara MD at 8:47 EST ,
== END | disposition home or self-care (01) ==
LOC: MTRAD 13:18
PROVIDERS: PCP Family Medicine; Referring Provider Family Medicine; Visit Provider Family Medicine
DX: R20.0 Anesthesia of skin (principal)
CPT/HCPCS: 72050

== ENCOUNTER → 2024-04-26 | Outpatient (CLI) | payer MEDICARE, MEDICAID, SELFPAY ==
[2024-04-26 15:18] LABS: Absolute Lymphocyte Count 2.03 X10^3/uL (0.83-4.51); Absolute Neutrophil Count 3.4 X10^3/uL (2.0-7.7); Basophil# 0.04 X10^3/uL; Basophil% 0.7 % (0-1); Eosinophil# 0.03 X10^3/uL; Eosinophils% 0.5 % (0-5); Hematocrit 42.1 % (37-47); Hemoglobin 13.7 g/dL (12.0-15.0); Lymphocyte # 2.03 X10^3/ul (0.83-4.51); Lymphocyte % 33.9 % (19-41); Mean Corp Hgb Conc 32.5 g/dL (32-36); Mean Corpuscular Hgb 27.2 pg (27.0-32.0); Mean Corpuscular Volume 83.7 fL (81-99); Mean Platelet Vol. 10.7 fl (6.2-12.0); Monocyte# 0.44 X10^3/uL; Monocyte% 7.4 % (0-10); NRBC Flagged by Analyzer 0 % (0-5); Neutrophil # 3.41 X10^3/uL (2.7-7.7); Platelet Count 290 K/mm3 (150-450); RBC Distribution Width CV 12.9 % (11.6-14.6); Red Blood Count 5.03 M/mm3 (4.2-5.4)
== END | disposition home or self-care (01) ==
LOC: MFPLAB 11:29
PROVIDERS: PCP Family Medicine; Referring Provider Family Medicine; Visit Provider Family Medicine
DX: N92.0 Excessive and frequent menstruation with regular cycle (principal)
CPT/HCPCS: 36415; 85025

== ENCOUNTER → 2024-08-31 | Outpatient (CLI) | payer MEDICARE, MEDICAID, SELFPAY ==
--- OUTSIDE RECORDS SUMMARY | 2024-08-31 08:29 | XMS RPT_ITS | CCD ---
Author Organization [facility] Care Team Providers Care Vending Service Technician Name Role Phone Sheyla Foster MD Unavailable [phone] Gabe RECORDS ANALYST, Thu Machuca Unavailable Byron Arriola Admitting Unavailable Byron Arriola Attending Unavailable Sheyla Foster MD Unavailable [phone] Unavailable Primary Care Provider Unavailabl e Unavailable Primary Care Provider Unavailabl e Unavailable Primary Care Provider Unavailabl e Unavailable Primary Care Provider Unavailabl e Matthew BROKER IN CHARGE.Gabe ALLEN Primary Care Provider Carol Sharp DO Primary Care Provider Carol Sharp DO Primary Care Provider GABE PIERRE Attending Unavailable Care Physician, No Primary Primary Care Provider Unavailable Care Physician, No Primary Referring Provider Un available ERVIN Massey Attending Provider Palma Neri (Pss) Primary Care Provider Kristin vailable Palma Neri (Pss) Primary Care Provider Kristin vailable Abdirashid Vazquez DO Primary Care Provider Abdirashid Vazquez Primary Care Provider Peter Maya MD Primary Care Provider Peter Maya Primary Care Unavailable Peter Maya Attending Unavailable Jones Toscano Attending Unavailable Peter Maya Primary Care Unavailable Nacho, Bon Admitting Unavailable Nacho, Bon Consulting Unavailable Uday Almaraz Attending Unavailable Peter Maya Primary Care Unavailable Peter Maya Primary Care Unavailable Jones Toscano Attending Unavailable Nacho, Bon Consulting Unavailable Nacho, Bon Admitting Unavailable Tereletsky, Jones Consulting Unavailable Lj, Chalon Attending Unavailable Lj, Chalon Referring Unavailable Lj, Chalon Primary Care Unavailable Lj, Chalon Attending Unavailable Lj, Chalon Referring Unavailable Lj, Chalon Primary Care Unavailable Lj, Chalon Attending Unavailable Lj, Chalon Referring Unavailable Lj, Chalon Primary Care Unavailable EISENTROUT, NEHEMIAS Attending Unavailable EISENTROUT, NEHEMIAS Referring Unavailable Lj, Chalon Primary Care Unavailable Bon Griffith Attending Unavailable Palma Neri Primary Care Provider Unavailab daryl Munoz MD, Yessi Whiteside Unavailable YESSI MUNOZ Admitting Unavailable KOVACEVICH, YESSI Attending Unavailable LJ, CHALON Primary Care Unavailable KOVACEVICH, YESSI Admitting Unavailable KOVACEVICH, YESSI Attending Unavailable LJ, CHALON Primary Care Unavailable LJ, CHALON Primary Care Unavailable MAGO WILSON Admitting Unavailable JERMAINE SCHMID Attending Unavailable KOVACEVICH, YESSI Attending Unavailable LJ, CHALON Primary Care Unavailable KOVACEVICH, YESSI Referring Unavailable SHEETS, CAROL Primary Care Unavailable KOVACEVICH, YESSI Attending Unavailable LJ, CHALON Primary Care Unavailable DEMETRIUS ROBERTSON Attending Unavailable LJ, CHALON Primary Care Unavailable KOVACEVICH, YESSI Attending Unavailable SHEETS, CAROL Primary Care Unavailable AILYNDEMETRIUS CUEVAS Attending Unavailable SHEETS, CAROL Primary Care Unavailable KOVACEVICH, YESSI Attending Unavailable LJ, CHALON Primary Care Unavailable ZIYAD HARRELL Referring Unavaila ble KOVACEVICHYESSI Referring Unavai lable BENDARAZIYAD Blankenship Attending Unavaila ble ANTHONY GARVIN Referring Unavailable CLARISSE, ANTHONY Attending Unavailable Allergies Allergy Classification Reported Allergen(s) Allergy Type Date of Onset Reaction(s) Facility Antihistamines (1 source) hydrOXYzine Drug Allergy 04-26-19 24 Mental Status Change [facility] PHENobarbital (2 sources) PHENobarbital Drug Allergy 09-13-19 07 Other (See Comments), Rash [facility] Propranolol (1 source) Propranolol Drug Allergy 08-21-19 23 Rash [facility] (9 sources) PHENABARBITOL drug allergy 09-11-19 10 to young when reaction occured to remember reaction [facility] (20 sources) PHENobarbital; Translations: [PHENOBARBITAL] Drug Allergy 09-13-19 07 Other (See Comments), Rash [facility] (20 sources) Propanediol Propensity to adverse reactions 07-09-19 [facility] (20 sources) Propranolol; Translations: [PROPRANOLOL] Drug Allergy 08-21-19 [facility] (20 sources) hydrOXYzine; Translations: [HYDROXYZINE] Drug Allergy 04-26-19 24 Mental Status Change, Other [facility] (20 sources) hydrALAZINE Drug Allergy 10-08-19 24 [facility] (1 source) hydrALAZINE Drug Allergy 10-08-19 [facility] (1 source) PHENobarbital Drug Allergy 10-08-19 [facility] (1 source) Propranolol Drug Allergy 10-08-19 [facility] Medications Current Medications Medication Drug Class(es) Dates Sig (Normalized) Sig (Original) amoxicillin 875 mg / clavulanate 125 mg oral tablet (1 source) Penicillin-class Antibacterial Start: 04-26-2023 End: 05-03-2023 take 1 tablet by mouth twice daily amoxicillin-clavu lanate potassium (AUGMENTIN) 875-125 mg per tablet Take 1 tablet by mouth two times a day for 7 days. 14 tablet 0 04/26/2023 05/03/2023 Active Comment on above: Take 1 tablet by [facility] two times a day for 7 days. benzonatate 100 mg oral capsule (10 sources) Non-narcotic Antitussive Start: 04-26-2023 take 1 capsule by mouth every eight hours as needed benzonatate (TESSALON PERLES) 100 mg capsule Take 1 capsule by mouth three times a day as needed. 14 capsule 04/26/2023 Active Start: 06-07-2022 End: 06-14-2022 take 1 capsule by mouth three times daily as needed benzonatate (TESSALON PERLES) 100 mg capsule Indications: Rhinosinusitis Take 1 capsule by mouth three times daily as needed for up to 7 days. 21 capsule 0 06/07/2022 06/14/2022 Active Comment on above: Take 1 capsule by [facility] three times daily as needed for up to 7 days. Take 1 capsule by [facility] three times a day as needed. biotin 5 mg disintegrating oral tablet (20 sources) Start: 09-06-2017 take 1 tablet by mouth once daily Biotin Active 1 TABLET PO DAILY September 05, 2017 11:00pm BIOTIN ORAL Take by mouth. Active BIOTIN ORAL Take by mouth. 0 Active Comment on above: Take by mouth. cholecalciferol 0.025 mg oral tablet (20 sources) Vitamin D Start: take 2000 [IU] by mouth once daily Cholecalciferol (Vitamin D3) Active 2000 UNIT PO DAILY September 04, 2018 11:00pm Start: 01-30-2018 take 1 tablet by edmundo th once daily cholecalciferol (VITAMIN D3) 2,000 unit tablet Indications: Vitamin D insufficiency Take 1 tablet by mouth once daily. 90 tablet 3 01/30/2018 Active End: 06-15-2024 Cholecalciferol (Vitamin D) 125 MCG (5000 UT) capsule Take by mouth 2 times daily. 06/15/2024 Discontinued (Entered in error) Comment on above: Take 1 tablet by edmundo once daily. citalopram 10 mg oral tablet (20 sources) Serotonin Reuptake Inhibitor Start: 02-06-2023 take 10 mg by mouth every twenty-four hours Citalopram Active 10 MG PO Q24H February 06, 2023 12:00am Start: 06-17-2022 End: 06-15-2024 take 1.5 tablets by mouth once daily citalopram (CeleXA) 20 MG tablet TAKE 1.5 TABLETS BY MOUTH EVERY DAY 06/17/2022 06/15/2024 Discontinued Start: 10-18-2021 Citalopram (Ce ced) 20 mg Tablet Active 30 MG PO DAILY October 17, 2021 11:00pm Start: 09-20-2021 take 1 tablet by edmundo th once daily citalopram (CELEXA) 20 mg tablet Take 20 mg by mouth once daily. 09/20/2021 Active Start: 09-20-2021 End: 06-15-2024 take 1 tablet by mouth once daily citalopram (CeleXA) 10 MG tablet take 1 tablet by oral route every day 02/16/2022 06/15/2024 Discontinued (Entered in error) End: 02-06-2017 take 1 tablet by mouth once daily CELEXA 20 MG TABS One tablet by mouth daily CITALOPRAM HYDROBROMIDE [id number] Sheyla Foster MD Comment on above: Take 20 mg by mouth once daily. Take 10 mg by mouth once daily. dexamethasone 1 mg oral tablet (1 source) Corticosteroid Start: 07-24-2024 dexAMETHasone (DECADRON) 1 mg tablet Indications: Class 3 severe obesity due to excess calories without serious comorbidity with body mass index (BMI) of 50.0 to 59.9 in adult (HCC) , PCOS (polycystic ovarian syndrome) Take the tablet at 11 pm and go for labs the next morning on fasting at 8 am Patient should start on July 24, 2024. 1 tablet 07/24/2024 Active Start: 07-24-2024 dexAMETHasone (DECADRON) 1 mg tablet Indications: Class 3 severe obesity due to excess calories without serious comorbidity with body mass index (BMI) of 50.0 to 59.9 in adult (HCC) , PCOS (polycystic ovarian syndrome) Take the tablet at 11 pm and go for labs the next morning on fasting at 8 am Patient should start on July 24, 2024. 1 tablet 07/24/2024 Active doxycycline monohydrate 100 mg oral tablet (1 source) Tetracycline-class Drug Start: 06-07-2022 End: 06-14-2022 take 1 tablet by mouth twice daily doxycycline monohydrate 100 mg tablet Indications: Rhinosinusitis Take 1 tablet by mouth twice daily for 7 days. 14 tablet 0 06/07/2022 06/14/2022 Active Comment on above: Take 1 tablet by edmundo th twice daily for 7 days. Norgestimate-Ethi nyl Estradiol (3 sources) Progestin, Estrogen Start: 01-16-2021 take 1 tablet by mouth once daily Norgestimate-Ethiny l Estradiol (Osborne-Linyah) 0.25-35 mg-mcg tablet Active 1 TABLET PO DAILY January 16, 2021 10:50pm Start: 01-16-2021 take 1 tablet by edmundo th once daily Norgestimate-Ethinyl Estradiol (Osborne-Linyah) 0.25-35 mg-mcg tablet Active 1 TABLET PO DAILY January 16, 2021 12:00am ferrous sulfate 325 mg oral tablet (20 sources) Start: 09-06-2017 End: 06-15-2024 take 1 tablet by mouth once daily Ferrous Sulfate Active 1 TABLET PO DAILY September 05, 2017 11:00pm ferrous sulfate (IRON ORAL) Take by mouth. Active ferrous sulfate (IRON ORAL) Take by mouth. 0 Active Comment on above: Take by mouth. levETIRAcetam 1000 mg oral tablet (20 sources) Anti-epileptic Agent Start: End: take 1 tablet by mouth twice daily levETIRAcetam (Keppra) 1000 MG tablet Indications: Seizure Take 1 tablet (1,000 mg) by mouth 2 times daily. 60 tablet 11 05/07/2024 Active Start: 01-26-2022 End: 07-08-2022 take 2 tablets [...] morning and one tablet before bed LEVETIRACETAM [id number] Sheyla Foster MD Start: 05-24-2015 take 500 mg by mouth at breakfast Levetiracetam Active 500 MG PO WITH BREAKFAST May 24, 2015 5:00pm Start: 03-31-2015 levETIRAcetam XR (KEPPRA XR) 500 mg 24 hr tablet Take 500 mg each morning and 1000 mg evening. 03/31/2015 Active Start: 09-21-2014 End: 02-06-2023 take 1000 mg by mouth at bedtime Levetiracetam Discontinued 1000 MG PO AT BEDTIME November 11, 2015 11:00pm February 06, 2023 11:17pm Comment on above: Take 500 mg each mor nhan and 1000 mg evening. loratadine 10 mg oral tablet (14 sources) Start: 3 take 1 tablet by mouth once daily loratadine (CLARITIN) 10 mg tablet Indications: Rhinosinusitis Take 1 tablet by mouth once daily. 30 tablet 11 06/07/2022 Active Comment on above: Take 1 tablet by edmundo th once daily. megestrol acetate 20 mg oral tablet (20 sources) Progestin Start: 5 End: 6 take 1 tablet by mouth twice daily megestrol (Megace) 20 MG tablet Indications: Endometrial Hyperplasia Take 1 tablet (20 mg total) by mouth 2 times daily. 60 tablet 11 03/25/2024 03/25/2025 Active Start: 01-03-2024 End: 05-07-2024 take 1 tablet by mouth every six hours, then take 1 tablet by mouth once daily megestrol (Megace) 20 MG tablet TAKE 1 TABLET BY MOUTH EVERY 6 HOURS UNTIL BLEEDING STOPS, THEN TAKE 1 TABLET DAILY 30 tablet 1 03/13/2024 05/07/2024 Discontinued Start: 08-30-2017 End: 09-08-2017 take 40 mg by mouth once Megestrol Discontinued 40 MG PO ONCE 30 August 29, 2017 11:00pm September 08, 2017 7:12am meloxicam 15 mg oral tablet (2 sources) Nonsteroidal Anti-inflammatory Drug Start: 09-28-2023 take 1 tablet by mouth once daily meloxicam (MOBIC) 15 mg tablet Take 1 tablet by mouth once daily. 30 tablet 3 09/28/2023 Active metFORMIN hydrochloride 500 mg oral tablet (20 sources) Biguanide Start: 09-20-2021 take 1 tablet by mouth three times daily metFORMIN (GLUCOPHAGE) 500 mg tablet Take 500 mg by mouth three times daily. 09/20/2021 Active Start: 01-16-2021 End: 02-06-2023 take 500 mg by mouth twice daily Metformin Discontinued 500 MG PO TWICE A DAY January 15, 2021 11:00pm February 06, 2023 11:17pm Start: 11-19-2020 take 1 tablet by edmundo th three times daily metFORMIN (GLUCOPHAGE) 500 MG tablet Take 1 tablet by mouth 3 times daily 90 tablet 5 11/19/2020 Active Start: 09-10-2009 End: 07-04-2013 METFORMIN HCL 500 MG TABS 3 times a day METFORMIN HCL [id number] Rani Jackson MD Comment on above: Take 500 mg by mouth three times daily. metroNIDAZOLE 500 mg oral tablet (2 sources) Nitroimidazole Antimicrobial Start: 10-29-19 End: 11-03-19 take 1 tablet by mouth twice daily metroNIDAZOLE (FLAGYL) 500 MG tablet Take 1 tablet by mouth 2 times daily for 5 days 10 tablet 0 10/28/2020 11/02/2020 Active Start: 06-18-2018 End: 02-24-2021 take 2 g by mouth once metroNIDAZOLE (FLAGYL) 500 m g tablet 2 grams by mouth once 4 tablet 06/18/2018 02/24/2021 Discontinued nystatin [id number] unt/ml topical cream (1 source) Polyene Antifungal Start: 02-06-2023 Nystatin Active 1 APPLIC TOPICAL DAILY February 06, 2023 12:00am predniSONE 20 mg oral tablet (2 sources) [...] with food. Take 2 tablets by [facility] once daily for 5 days. Vjumfpym-Lxd-Pm-Fa () 1 mg Tablet (4 sources) Start: 02-10-2021 take 1 tablet by mouth once daily Hyudfgsf-Rpo-Ck-Fa () 1 mg Tablet Active 1 TABLET PO DAILY February 10, 2021 7:08pm Start: 02-10-2021 [facility] Izhkuctq-Rpm-Sw-Fa () 1 mg Tablet Active 1 TABLET PO DAILY February 10, 2021 1:00am propranolol hydrochloride 10 mg oral tablet (20 sources) beta-Adrenergic Bashir Start: 08-02-2021 take 1 tablet by mouth once daily propranolol (INDERAL) 10 mg tablet Take 1 tablet by mouth once daily. 08/02/2021 Active Comment on above: Take 1 tablet by edmundo once daily. Completed/Discontinued Medications Medication Drug Class(es) Dates Sig (Normalized) Sig (Original) acetaminophen 500 mg oral tablet (2 sources) Start: 03-08-2024 End: 03-08-2024 1,000 mg, Oral, Once, On Mon03/08/24 at 1300, For 1 dose, Preprocedure, Administer 60 minutes prior to surgery. ALPRAZolam 0.25 mg disintegrating oral tablet (20 sources) Benzodiazepine Start: 03-08-2024 End: 03-08-2024 take 0.25 mg by mouth once as needed for anxiety 0.25 mg, Oral, Once PRN, anxiety, Starting on Mon03/08/24 at 1257, For 1 dose, Preprocedure, Please do not administer prior to obtaining consent and/or history and physical. Start: 10-18-2021 take 1 tablet by edmundo th once daily ALPRAZolam (Xanax) 1 MG tablet Indications: Anxiety Take 1 mg by mouth daily. In the afternoon 06/17/2022 Active Start: 11-01-2016 End: 12-07-2019 take 2 mg by mouth three times daily as needed Alprazolam Discontinued 2 MG PO 3 TIMES DAILY NEEDED September 08, 2017 7:12am December 07, 2019 10:17am Start: 09-23-2014 End: 02-06-2017 take 1 tablet by mouth three times daily Alprazolam (Xanax) 2 MG tablet Discontinued 2 MG PO THREE TIMES A DAY September 23, 2014 9:56am November 01, 2016 4:03pm Start: 11-27-2012 ALPRAZolam (XA NAX) 2 mg tablet Indications: Bipolar disorder, unspecified (HCC) Take 2 mg by mouth twice daily. 2 mg am 2mg noon 1 mg bedtime 11/27/2012 Active Comment on above: Take 2 mg by mouth t wice daily. Take 2 mg by mouth t wice daily. 2 mg am 2mg noon 1 mg bedtime amitriptyline hydrochloride 25 mg oral tablet (20 sources) Tricyclic Antidepressant Start: 12-13-19 End: 12-07-19 take 4 tablets by mouth at bedtime as needed Amitriptyline Discontinued 4 TABLET PO AT BEDTIME NEEDED December 11, 2016 11:00pm December 07, 2019 10:17am Start: 10-07-2016 take 3 tablets by mo uth in the evening as needed AMITRIPTYLINE HCL 25 MG TABS Take three tablets by mouth in the evening as needed AMITRIPTYLINE HCL [id number] Sheyla Foster MD Start: 04-03-2013 End: 11-01-2016 take 75 mg by mouth at bedtime as needed Amitriptyline Discontinued 75 MG PO AT BEDTIME NEEDED April 03, 2013 12:00am November 01, 2016 4:03pm Start: 03-01-2012 End: 02-24-2021 take 4 tablets by mouth at bedtime as needed amitriptyline 25 mg tablet Indications: Bipolar disorder, unspecified (HCC) Take 4 tablets by mouth at bedtime as needed. 03/01/2012 02/24/2021 Discontinued Start: 09-10-2009 AMITRIPTYLINE HCL 50 MG TABS 1 a day AMITRIPTYLINE HCL [id number] Rani Jackson MD End: 02-06-2017 AMITRIPTYLINE HCL [...] thasone sodium phosphate 6 mg injection (CELESTONE) betamethasone 0.5 mg/ml / clotrimazole 10 mg/ml topical cream (1 source) Azole Antifungal, Corticosteroid Start: 12-15-2022 End: 01-12-2023 Clotrimazole-Betamethasone Discontinued 1 APPLIC TOPICAL TWICE A DAY 45 December 14, 2022 11:00pm January 11, 2023 11:05pm calcium chloride 0.0014 meq/ml / potassium chloride 0.004 meq/ml / sodium chloride 0.103 meq/ml / sodium lactate 0.028 meq/ml injectable solution (2 sources) Start: 03-08-2024 End: 03-08-2024 take 50 mL intravenously every hour 50 mL/hr, IntraVENous, Continuous, Starting on Mon03/08/24 at 1300, Preprocedure, Upon admission to sameday - please start iv if patient does not have iv access. Use 500ml NS for patients on dialysis. chlorhexidine gluconate 20 mg/ml medicated pad (2 sources) Start: 03-08-2024 End: 03-08-2024 Topical, PRN, no prior CHG bath to planned surgical site, Starting on Mon03/08/24 at 1257, For 1 dose, Preprocedure, Chlorhexidine Cloth 2% topically to planned surgical site once PRN for outpatients who did not perform CHG bath/shower as instructed or for ED patients and inpatients 1 ml diphenhydrAMINE hydrochloride 50 mg/ml cartridge (2 sources) Histamine-1 Receptor Antagonist Start: 03-08-2024 End: 03-08-2024 12.5 mg, IntraVENous, Once PRN, itching, Starting on Mon03/08/24 at 1513, For 1 dose, Recovery (only) DULoxetine 60 mg delayed release oral capsule (20 sources) Serotonin and Norepinephrine Reuptake Inhibitor Start: 09-10-2009 End: 02-06-2017 take 60 mg by mouth once daily Duloxetine Discontinued 60 MG PO DAILY May 24, 2015 12:00am November 01, 2016 4:03pm estrogens, esterified (chcf) 0.3 mg oral tablet (20 sources) Start: 02-20-2024 End: 05-07-2024 take 1 tablet by mouth once daily Menest 0.3 MG tablet Take 0.3 mg by mouth daily. 02/20/2024 05/07/2024 Discontinued End: 06-15-2024 take 1 tablet by mouth once daily esterified estrogens (Menest) 0.625 MG tablet Take 0.625 mg by mouth daily. 06/15/2024 Discontinued (Entered in error) etodolac 400 mg oral tablet (7 sources) Nonsteroidal Anti-inflammatory Drug Start: 10-23-2020 End: 03-02-2022 take 1 tablet by mouth twice daily etodolac (LODINE) 400 mg tablet Take 1 tablet by mouth twice daily. 30 tablet 0 10/23/2020 03/02/2022 Discontinued Comment on above: Take 1 tablet by edmundo th twice daily. finasteride 5 mg oral tablet (19 sources) 5-alpha Reductase Inhibitor Start: 02-06-2024 End: 06-15-2024 take 1 tablet by mouth once daily finasteride (Proscar) 5 MG tablet Take 5 mg by mouth daily. 02/06/2024 06/15/2024 Discontinued (Entered in error) fluconazole 150 mg oral tablet (1 source) Azole Antifungal Start: 12-15-2022 End: 02-06-2023 Fluconazole Discontinued 150 MG PO Q3D December 14, 2022 11:00pm February 06, 2023 11:17pm july repeat second dose 72 hrs after first dose if symptoms persist gabapentin 100 mg oral capsule (18 sources) Anti-epileptic Agent Start: 09-10-2009 End: 07-04-2013 NEURONTIN 100 MG CAPS 3 times a day GABAPENTIN [id number] Brian Cooper Start: 09-10-2009 End: 07-04-2013 NEURONTIN 100 MG CAPS 3 time s a day GABAPENTIN [id number] Rani Jackson MD 1 ml HYDROmorphone hydrochloride 1 mg/ml cartridge (2 sources) Opioid Agonist Start: 03-08-2024 End: 03-08-2024 0.25 mg, IntraVENous, Every 5 min PRN, moderate pain (4-6), Starting on Mon03/08/24 at 1513, For 4 doses, Recovery (only), For Phase I. If Phase II oral narcotics have been administered in the last 60 minutes, do not administer IV narcotics unless specifically approved by provider. hydrOXYzine hydrochloride 50 mg oral tablet (18 sources) Antihistamine Start: 09-10-2009 End: 07-04-2013 HYDROXYZINE HCL 50 MG TABS 3 a day HYDROXYZINE HCL [id number] Briangwendolyn Cooper lamoTRIgine 100 mg oral tablet (20 sources) Mood Stabilizer, Anti-epileptic Agent Start: 05-24-2015 End: 11-01-2016 take 200 mg by mouth twice daily Lamotrigine Discontinued 200 MG PO TWICE A DAY May 24, 2015 12:00am November 01, 2016 4:02pm Start: 09-10-2009 LAMICTAL 100 M G TABS twice a day LAMOTRIGINE [id number] Rani Jackson MD End: 02-06-2017 take 1 tablet by mouth twice daily LAMICTAL 200 MG TABS (LAMOTRIGINE) One tablet by mouth twice daily Brian Ilene Cooper letrozole 2.5 mg oral tablet (9 sources) Aromatase Inhibitor Start: 10-07-2016 take 2 tablets by mouth once daily, then take 3-7 tablets by mouth LETROZOLE 2.5 MG TABS 2 tabs po daily x 5 days day 3-7 LETROZOLE [id number] Sheyla Foster MD levonorgestrel 0.733864 mg/hr intrauterine system (1 source) Progestin, Progestin-contai nhan Intrauterine Device Start: 10-30-2017 End: 10-30-2017 levonorgestrel 20 mcg/24 hours (6 yrs) 52 mg intrauterine device Discontinued 1 INSERT INTRA-UTER ONCE 1 October 30, 2017 10:56am October 30, 2017 12:21pm medroxyPROGESTERone acetate 10 mg oral tablet (20 sources) Progestin Start: 01-08-2018 End: 02-24-2021 take 1 tablet by mouth once daily medroxyPROGESTERone (PROVERA) 10 mg tablet Take 1 tablet by mouth once daily. 10 tablet 12 01/08/2018 02/24/2021 Discontinued Start: 10-07-2016 End: 10-17-2016 take 1 tablet by mouth once daily PROVERA 10 MG TABS One tablet by mouth daily MEDROXYPROGESTERONE ACETATE [id number] Sheyla Foster MD Start: 09-10-2009 End: 07-04-2013 PROVERA 10 MG TABS 1 every 3 -4 months as needed to regulate periods MEDROXYPROGESTERONE ACETATE [id number] Rani Jackson MD 1 ml meperidine hydrochloride 25 mg/ml cartridge (2 sources) Opioid Agonist Start: 03-08-2024 End: 03-08-2024 12.5 mg, IntraVENous, Every 5 min PRN, shivering, Starting on Mon03/08/24 at 1513, For 2 doses, Recovery (only), May give every 5 minutes to max of 25mg. Notify Anesthesia Provider before administration. mupirocin 0.02 mg/mg topical ointment (1 source) RNA Synthetase Inhibitor Antibacterial Start: 12-28-2018 End: 02-24-2021 mupirocin (BACTROBAN) 2 % ointment Indications: Skin infection Apply 1 application to affected area three times daily. 22 g 12/28/2018 02/24/2021 Discontinued 2 ml ondansetron 2 mg/ml injection (2 sources) Serotonin-3 Receptor Antagonist Start: 03-08-2024 End: 03-08-2024 4 mg, IntraVENous, Once PRN, nausea, Starting on Mon03/08/24 at 1513, For 1 dose, Recovery (only), Initial antiemetic therapy. oxyCODONE hydrochloride 5 mg oral tablet (2 sources) Opioid Agonist Start: 03-08-2024 End: 03-08-2024 take 1 tablet by mouth every four hours as needed for pain 5 mg, Oral, Every 4 hours PRN, moderate pain (4-6), Starting on Mon03/08/24 at 1513, For 1 dose, Recovery (only), PHASE II 50 ml sodium chloride 9 mg/ml injection (14 sources) Start: 03-08-2024 End: 03-08-2024 500 mL, IntraVENous, at 1,000 mL/hr, Administer over 0.5 Hours, PRN, Anti-nausea, Starting on Mon03/08/24 at 1513, Recovery (only), Indications: Anti-nausea Start: 03-08-2024 End: 03-08-2024 take 5-40 mL intravenously every twelve hours 5-40 mL, IntraVENous, Every 12 hours, First dose on Mon03/08/24 at 1300, Preprocedure, For Line Patency: Peripheral IV = 5 mL; Midline or Central Line = 10 mL/lumen. If following IV push medication, administer flush at same rate as the IV push. Flush volume is determined by type of infusion therapy being given. For non-viscous solutions use: Peripheral IV = 5 mL Midline or Central Line = 10 mL/lumen For viscous solutions (i.e. blood components, parenteral nutrition, contrast media, or after obtaining blood sample) use: Peripheral IV = 10 mL Midline or Central Line = 20 mL/lumen Start: 03-08-2024 End: 03-08-2024 take 100 mL intravenously every hour as needed, then take 20 mL intravenously every hour as needed 5-250 mL/hr, IntraVENous, PRN, if patient receiving piggyback infusions and maintenance fluids are not ordered OR KVO fluids to protect IV site / prevent frequent line interruptions / long duration, Starting on Mon03/08/24 at 1257, Preprocedure, For piggyback infusion, administer at same rate as piggyback for a total of 25 mL. Enter 25 mL into dose field and piggyback rate into rate field of order. If piggyback is infusing at a rate less than 100 mL/hr, enter 25 mL into dose field and 100 mL/hr into rate field of order. For KVO fluids, enter rate of 20 mL/hr or less into rate field of order. Start: 03-08-2024 End: 03-08-2024 5-40 mL, IntraVENous, PRN, l ine care, After every IV line use, Starting on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 she is not suicidal.) Activating Events (Recent): Recent loss(es) or other significant negative event(s) (legal, financial, relationship, etc.) (Patient was upset at the doctor office that things were taking so long.) Describe:: Patient was upset at the doctor office that things were taking so long. (Patient was upset at the doctor office that things were taking so long.) Treatment History: Previous psychiatric diagnoses and treatments (She has been inpatient in 2017 & 2018.) Other Risk Factors: Lack of support. (Lack of support.) Clinical Status (Recent): Agitation or severe anxiety, Aggressive behavior towards others (Patient is agitated) Protective Factors (Recent): (Patient has housing.) Describe any suicidal, self-injurious or aggressive behavior (include dates): Patient denies suicidal thoughts or feelings. (Patient denies in suicidal thoughts and feelings.) Plan: Patient is not signed in. CHIEF PORT DIRECTOR will follow patient and work with patient for discharge planning. She will be referred to a community provider for follow up. She is encouraged to participate in unit activities. Comment: Please note this report has been produced using speech recognition software and may contain errors related to that system including errors in grammar, punctuation, and spelling, as well as words and phrases that may be inappropriate. If there are any questions or concerns please feel free to contact the dictating provider for clarification. [facility] Nursing Noteon 06-14-2024 Nursing Note Pt on unit interacti ng with peers. When approached pt, she did ask if I do not call her by her name. Pt stated It brings up past trauma. Pt blunted, reports feeling better. Pt denies SI/HI and hallucinations. Pt is discharged focused, is concerned being here on her birthday. Emotional support provided. Pt compliant with hs medications. Patient encourage to notify staff of any mental health concerns, changes in condition or any questions. [facility] Nursing Note Pt is room. Pt refus es medication until she can take her xanax with it. Pt denies SI/hI. Pt denies AH/VH. Safety checks maintained per unit policy. [facility] Nursing Note Verified pt [facility]anax [facility]. Pt takes 1 mg at bedtime and 2 mg twice a day. [facility] Nursing Note Pt refused labs this AM when Rn approached patient just stated nope, no labs [facility] [id number] 06-13-2024 [id number] Patient arrived to nit extremely agitated , yelling that 'she was not late and the elevator doesn't work and you can't find the stairs. aboriginal liaison officer arrived on unit and patient screaming at officer , yelling that shooting that WHEEL AND PINION INSPECTOR was the right thing to do; officer escorted patient out of unit. Dr. Munoz's office called; spoke with Cecilio who states patient yells and cusses at them all the time. Belem Bashir occupational therapy program director notified. [facility] 30on 06-13-2024 30 Problem: Potential f or Harm to Self or Others Goal: Cooperates with admission process Outcome: Not Progressing Goal: Participates in unit activities Outcome: Not Progressing Goal: Patient/Family participate in treatment and discharge plans Outcome: Not Progressing Goal: Identifies deescalation techniques Outcome: Not Progressing Goal: Understands least restrictive measures Outcome: Not Progressing Goal: Identifies stressors that lead to harmful behaviors Outcome: Not Progressing Goal: Notifies staff when experiencing harmful thoughts toward self/others Outcome: Not Progressing Goal: Denies harm toward self or others Outcome: Not Progressing Goal: Free from restraint events Outcome: Not Progressing Problem: Alteration in Sleep Goal: STG - Reports nightly sleep, duration, and quality Outcome: Not Progressing Goal: STG - Identifies sleep hygiene aids Outcome: Not Progressing Goal: STG - Informs staff if unable to sleep Outcome: Not Progressing Goal: STG - Attends breathing and relaxation group Outcome: Not Progressing Normal [facility] CBC WITH AUTO DIFFERENTIALon 06-13-2024 Basophils (Bld) [#/Vol] 0.0 10*3/uL Normal 0.0-0.2 [facility] Comment on above: Performed By: #### L [id number] #### Staple Shear Operator: DEEPAK HAGAN ([id number]) [facility] ([facility]) [address] Basophils/100 WBC (Bld) 0.7 % Normal 0.0-2.0 [facility] Comment on above: Performed By: #### L [id number] #### Staple Shear Operator: DEEPAK HAGAN ([id number]) [facility] ([facility]) [address] [place] [address] Eosinophils (Bld) [#/Vol] 0.0 10*3/uL Normal 0.0-0.5 [facility] Comment on above: Performed By: #### L [id number] #### Staple Shear Operator: DEEPAK HAGAN ([id number]) [facility] ([facility]) [address] [place] [address] Eosinophils/100 WBC (Bld) 1.0 % Normal 0.0-6.0 [facility] Comment on above: Performed By: #### L [id number] #### Staple Shear Operator: DEEPAK HAGAN ([id number]) [facility] ([facility]) [address] [place] [address] Erythrocyte distribution width (RBC) [Ratio] 14.2 % Normal 11.5-15.0 [facility] Comment on above: Performed By: #### L [id number] #### Staple Shear Operator: DEEPAK HAGAN ([id number]) [facility] ([facility]) [address] [place] [address] Hematocrit (Bld) [Volume fraction] 40.9 % Normal 35.0-47.0 [facility] Comment on above: Performed By: #### L [id number] #### Staple Shear Operator: DEEPAK HAGAN ([id number]) [facility] [address] Hemoglobin (Bld) [Mass/Vol] 13.9 g/dL Normal 11.7-16.0 [facility] Comment on above: Performed By: #### L [id number] #### Staple Shear Operator: DEEPAK HAGAN ([id number]) [facility] [address] IMMATURE GRANS % 0.2 % Normal 0.0-2.[address] [facility] Comment on above: Performed By: #### L [id number] #### Staple Shear Operator: DEEPAK HAGAN ([id number]) [facility] ([facility]) [address] [place] [address] IMMATURE GRANS ABSOLUTE 0.0 10*3/uL Normal <0.1 [facility] Comment on above: Performed By: #### L [id number] #### Staple Shear Operator: DEEPAK HAGAN ([id number]) [facility] ([facility]) [address] Lymphocytes (Bld) [#/Vol] 1.5 10*3/uL Normal 1.0-4.3 [facility] Comment on above: Performed By: #### L [id number] #### Staple Shear Operator: DEEPAK HAGAN ([id number]) [facility] [address] Lymphocytes/100 WBC (Bld) 35.9 % Normal 15.0-45.0 [facility] Comment on above: Performed By: #### L [id number] #### Staple Shear Operator: DEEPAK HAGAN ([id number]) [facility] ([facility]) [address] MCH (RBC) [Entitic mass] 27.9 pg Normal 26.0-34.0 [facility] Comment on above: Performed By: #### L [id number] #### Staple Shear Operator: DEEPAK HAGAN ([id number]) [facility] [address] MCHC 34.0 % Normal 30.5-36.0 [facility] Comment on above: Performed By: #### L [id number] #### Staple Shear Operator: DEEPAK HAGAN ([id number]) [facility] [address] MCV (RBC) [Entitic vol] 82.1 fL Normal 77.0-99.0 [facility] Comment on above: Performed By: #### L [id number] #### Staple Shear Operator: DEEPAK HAGAN ([id number]) [facility] ([facility] [address] Monocytes (Bld) [#/Vol] 0.4 10*3/uL Normal 0.0-0.9 [facility] Comment on above: Performed By: #### L [id number] #### Staple Shear Operator: DEEPAK HAGAN ([id number]) [facility] [address] Monocytes/100 WBC (Bld) 8.7 % Normal 5.0-13.0 [facility] Comment on above: Performed By: #### L [id number] #### Staple Shear Operator: DEEPAK HAGAN ([id number]) [facility] [address] NEUTROPHILS ABSOLUTE 2.2 10*3/uL Normal 1.8-7.5 [facility] Comment on above: Performed By: #### L [id number] #### Staple Shear Operator: DEEPAK HAGAN ([id number]) [facility] ([facility] [address] Neutrophils/100 WBC (Bld) 53.5 % Normal 38.0-82.0 [facility] Comment on above: Performed By: #### L [id number] #### Staple Shear Operator: DEEPAK HAGAN ([id number]) [facility] [address] NRBC 0.0 /100 WBCs Normal 0.0-2.0 [facility] Comment on above: Performed By: #### L [id number] #### Staple Shear Operator: DEEPAK HAGAN ([id number]) [facility] ([facility]) [address] Platelet mean volume (Bld) [Entitic vol] 9.7 fL Normal 9.0-12.7 [facility] Comment on above: Performed By: #### L [id number] #### Staple Shear Operator: DEEPAK HAGAN ([id number]) [facility] ([facility]) [address] Platelets (Bld) [#/Vol] 291 10*3/uL Normal 140-440 [facility] Comment on above: Performed By: #### L [id number] #### Staple Shear Operator: DEEPAK HAGAN ([id number]) [facility] ([facility]) [address] RBC (Bld) [#/Vol] 4.98 10*6/uL Normal 3.80-5.20 [facility] Comment on above: Performed By: #### L [id number] #### Staple Shear Operator: DEEPAK HAGAN ([id number]) [facility] ([facility]) [address] WBC (Bld) [#/Vol] 4.0 10*3/uL Normal 3.6-10.7 [facility] Comment on above: Performed By: #### L [id number] #### Staple Shear Operator: DEEPAK HAGAN ([id number]) [facility] ([facility]) [address] COMPREHENSIVE METABOLIC PANE Gonzalez 06-13-2024 Albumin [Mass/Vol] 3.7 g/dL Normal 3.5-5.0 [facility] Comment on above: Performed By: #### L [id number] #### Staple Shear Operator: DEEPAK HAGAN ([id number]) [facility] ([facility]) [address] [place] [address] [place] ALP [Catalytic activity/Vol] 61 U/L Normal 40-150 [facility] Comment on above: Performed By: #### L [id number] #### Staple Shear Operator: DEEPAK HAGAN ([id number]) [facility] ([facility] [address] [place] [address] [place] ALT [Catalytic activity/Vol] 60 U/L High <30 [facility] Comment on above: Performed By: #### L [id number] #### Staple Shear Operator: DEEPAK HAGAN ([id number]) [facility] ([facility]) [address] Anion gap [Moles/Vol] 12 mmol/L Normal 3-13 [facility] Comment on above: Performed By: #### L [id number] #### Staple Shear Operator: DEEPAK HAGAN ([id number]) [facility] ([facility] [address] [place] [address] [place] AST [Catalytic activity/Vol] 57 U/L High <34 [facility] Comment on above: Performed By: #### L [id number] #### Staple Shear Operator: DEEPAK HAGAN ([id number]) [facility] ([facility]) [address] [place] [address] [place] Bilirubin [Mass/Vol] 0.7 mg/dL Normal <1.2 [facility] Comment on above: Performed By: #### L [id number] #### Staple Shear Operator: DEEPAK HAGAN ([id number]) [facility] ([facility]) [address] [place] [address] [place] Calcium [Mass/Vol] 9.1 mg/dL Normal 8.4-10.2 [facility] Comment on above: Performed By: #### L [id number] #### Staple Shear Operator: DEEPAK HAGAN ([id number]) [facility] ([facility]) [address] Chloride [Moles/Vol] 110 mmol/L High 98-107 [facility] Comment on above: Performed By: #### L [id number] #### Staple Shear Operator: DEEPAK HAGAN ([id number]) [facility] ([facility]) [address] CO2 [Moles/Vol] 18 mmol/L Low 22-29 [facility] Comment on above: Performed By: #### L [id number] #### Staple Shear Operator: DEEPAK HAGAN ([id number]) [facility] [address] Creatinine [Mass/Vol] 0.84 mg/dL Normal 0.57-1.11 [facility] Comment on above: Performed By: #### L [id number] #### Staple Shear Operator: DEEPAK HAGAN ([id number]) [facility] ([facility]) [address] GLOMERULAR FILTRATION RATE ML/MIN/1.73 SQ M.PREDICTED >90.0 Normal >60.0 [facility] Comment on above: Result Comment: Calc ulation based on the Chronic Kidney Disease Epidemiology Collaboration (CKD-EPI) equation refit without adjustment for race Performed By: #### L [id number] #### Staple Shear Operator: DEEPAK HAGAN ([id number]) [facility] ([facility]) [address] Glucose [Mass/Vol] 138 mg/dL High 74-100 [facility] Comment on above: Performed By: #### L [id number] #### Staple Shear Operator: DEEPAK HAGAN ([id number]) [facility] ([facility]) [address] Potassium [Moles/Vol] 3.6 mmol/L Normal 3.5-5.1 [facility] Comment on above: Result Comment: [facility] potassium values may be up to 0.5 mmol/L lower than serum values. Performed By: #### L [id number] #### Staple Shear Operator: DEEPAK HAGAN ([id number]) [facility] ([facility]) [address] Protein [Mass/Vol] 7.1 g/dL Normal 6.4-8.3 [facility] Comment on above: Performed By: #### L [id number] #### Staple Shear Operator: DEEPAK HAGAN ([id number]) [facility] ([facility]) [address] Sodium [Moles/Vol] 140 mmol/L Normal 136-145 [facility] Comment on above: Performed By: #### L [id number] #### Staple Shear Operator: DEEPAK HAGAN ([id number]) [facility] [address] Urea nitrogen [Mass/Vol] 8 mg/dL Normal 8-21 [facility] Comment on above: Performed By: #### L [id number] #### Staple Shear Operator: DEEPAK HAGAN ([id number]) [facility] ([facility]) [address] DRUGS OF ABUSEon 06-13-2024 AMPHETAMINE SCREEN Negative Normal [facility] Comment on above: Performed By: #### L [id number] #### Staple Shear Operator: DEEPAK HAGAN ([id number]) [facility] ([facility]) [address] BARBITURATES SCREEN Negative Normal [facility] Comment on above: Performed By: #### L [id number] #### Staple Shear Operator: DEEPAK HAGAN ([id number]) [facility] ([facility]) [address] BENZODIAZEPINE SCREEN Positive Normal [facility] Comment on above: Performed By: #### L [id number] #### Staple Shear Operator: DEEPAK HAGAN ([id number]) [facility] ([facility]) [address] COCAINE METAB. SCREEN Negative Normal [facility] Comment on above: Performed By: #### L [id number] #### Staple Shear Operator: DEEPAK HAGAN ([id number]) [facility] ([facility]) [address] FENTANYL SCREEN, UR QUAL Negative Normal [facility] Comment on above: Result Comment: BON R COMMENTS: The expected value for all of the drugs listed above is Negative. The following drugs or drug groups have been screened for by Immunoassay at the following thresholds: Amphetamine class (1000 ng/mL) Barbiturates (200 ng/mL) Benzodiazepines (200 ng/mL) Cocaine (300 ng/mL) Methadone (300 ng/mL) Opiates (300 ng/mL) Oxycodone (100 ng/mL) PCP (25 ng/mL) Fentanyl (1.0 ng/ml) NOTE: These results are for medical treatment only. Analysis performed using non-forensic procedures. POSITIVE results are NOT confirmed by a more specific alternative method unless requested. If confirmation is needed, request confirmation under separate order. Performed By: #### L [id number] #### Staple Shear Operator: DEEPAK HAGAN ([id number]) [facility] ([facility]) [address] METHADONE SCREEN Negative Normal [facility] Comment on above: Performed By: #### L [id number] #### Staple Shear Operator: DEEPAK HAGAN ([id number]) [facility] ([facility]) [address] OPIATES SCREEN Negative Normal [facility] Comment on above: Performed By: #### L [id number] #### Staple Shear Operator: DEEPAK HAGAN ([id number]) [facility] ([facility]) [address] OXYCODONE SCREEN Negative Normal [facility] Comment on above: Performed By: #### L [id number] #### Staple Shear Operator: DEEPAK HAGAN ([id number]) [facility] ([facility]) [address] PHENCYCLIDINE SCREEN Negative [facility] Comment on above: Performed By: #### L [id number] #### Staple Shear Operator: DEEPAK HAGAN ([id number]) [facility] ([facility]) [address] ECG 12-LEADon 06-13-2024 ECG 12-LEAD IMPRESSION: Sinus tachycardia No significant change from previous ekg Electronically Signed On 06-13-2024 20:23:19 EDT by Michelle Murray [facility] ED Nursing Noteon 06-13-2024 ED Nursing Note Report given to Patt 5 RN [facility] ED Nursing Note Protective services called to bedside as she became upset with staff thinking they were laugher at her she started yelling and striking her head into the wall. [facility] ED Nursing Note Patient arrives from first floor family practice when she began to yell she was being held hostage and started to hit self in the face and bang her head into the wall. She also threatened harm to everyone around her. Patient has a past history of mental health issues and has been non-complaint with her medication. [facility] ED Provider Noteon ED Provider Note EMERGENCY DEPARTMENT ENCOUNTER Pt Name: Josse Wayne Birthdate 1985 Date of evaluation: 06/13/2024 ED Provider: Michelle Murray DO CHIEF COMPLAINT Chief Complaint Patient presents with Psychiatric Evaluation Suicidal Homicidal HISTORY OF PRESENT ILLNESS (Location/Symptom, Timing/Onset, Context/Setting, Quality, Duration, Modifying Factors, Severity) Note limiting factors. I wore appropriate PPE for the entirety of this encounter. HPI Josse Wayne is a 38 y.o. who presents to the emergency department with chief complaint of psychiatric evaluation. Patient was at the [facility] for plans of a hysteroscopy. Says that it took a while to try [facility] and afterwards she had trouble getting to her next location was worried that she would miss her appointment and they would cancel on her because this has happened previously. She became agitated and started to yell at people around her. Security was called and brought her to the ER at which point she became agitated and aggressive, yelling at staff. Patient started banging her head on the wall and at some point put her head through the wall, creating a dent. She was yelling at staff about the time that she was held hostage, the time she was suicidal and her friend found her overdosed, and had made comments about wanting to harm other people and saying things like this is why police get shot. Patient had made comments about not wanting to be alive because of the situations but did not make any direct suicidal comments. Patient reported to nursing staff that she has not been compliant with her medications. She does take Celexa, Keppra and Xanax as needed. Nursing Notes were reviewed. Limitations to history: Behavior Outside historians: None REVIEW OF SYSTEMS Review of Systems Pertinent positives and negatives as per HPI. PAST MEDICAL HISTORY Past Medical History: Diagnosis Date Anxiety Depression Epilepsia (HCC) GERD (gastroesophageal reflux disease) PCOS (polycystic ovarian syndrome) PTSD (post-traumatic stress disorder) Sleep apnea SURGICAL HISTORY Past Surgical History: Procedure Laterality Date BRAIN SURGERY 1997 DILATION AND CURETTAGE OF UTERUS 03/08/2024 HYSTEROSCOPY 03/08/2024 CURRENT MEDICATIONS Previous Medications ALPRAZOLAM (XANAX) 1 MG TABLET Take 1 mg by mouth daily. In the afternoon ALPRAZOLAM (XANAX) 2 MG TABLET alprazolam 2 mg tablet TAKE 1 TABLET BY MOUTH TWICE DAILY CHOLECALCIFEROL (VITAMIN D) 125 MCG (5000 UT) CAPSULE Take by mouth 2 times daily. CITALOPRAM (CELEXA) 10 MG TABLET take 1 tablet by oral route every day CITALOPRAM (CELEXA) 20 MG TABLET TAKE 1.5 TABLETS BY MOUTH EVERY DAY ESTERIFIED ESTROGENS (MENEST) 0.625 MG TABLET Take 0.625 mg by mouth daily. FERROUS SULFATE 325 (65 FE) MG TABLET Take 325 mg by mouth daily (with breakfast). FINASTERIDE (PROSCAR) 5 MG TABLET Take 5 mg by mouth daily. LEVETIRACETAM (KEPPRA) 1000 MG TABLET Take 1 tablet (1,000 mg) by mouth 2 times daily. MEGESTROL (MEGACE) 20 MG TABLET Take 1 tablet (20 mg total) by mouth 2 times daily. SPIRONOLACTONE (ALDACTONE) 50 MG TABLET Take 50 mg by mouth daily. ALLERGIES Hydralazine, Hydroxyzine, Phenobarbital, Propanediol, and Propranolol FAMILY HISTORY Family History Problem Relation Name Age of Onset Heart attack Maternal Grandfather SOCIAL HISTORY Social History Socioeconomic History Marital status: Single Tobacco Use Smoking status: Never Smokeless tobacco: Never Vaping Use Vaping status: Never Used Substance and Sexual Activity Alcohol use: Yes Comment: occ Drug use: Never SCREENINGS Sherie Coma Scale Best Eye Response: Spontaneous Best Verbal Response: Oriented Best Motor Response: Follows commands Crozier Coma Scale Score: 15 PHYSICAL EXAM ED Triage Vitals Temp Heart Rate Resp BP 06/13/24 1502 06/13/24 1502 06/13/24 1502 06/13/24 1502 36.7 ?C (98.1 ?F) (!) 127 16 (!) 164/104 SpO2 Temp Source Heart Rate Source Patient Position 06/13/24 1754 06/13/24 1502 06/13/24 1754 -- 100 % Oral Monitor BP Location FiO2 (%) 06/13/24 1502 -- Left arm Physical Exam Vitals and nursing note reviewed. Constitutional: General: She is not in acute distress. Appearance: She is well-developed. She is obese. She is not ill-appearing or toxic-appearing. HENT: Head: Normocephalic and atraumatic. Nose: Nose normal. Cardiovascular: Pulses: Normal pulses. Pulmonary: Effort: Pulmonary effort is normal. No respiratory distress. Musculoskeletal: General: Normal range of motion. Cervical back: Normal range of motion and neck supple. Skin: General: Skin is warm and dry. Capillary Refill: Capillary refill takes less than 2 seconds. Neurological: General: No focal deficit present. Mental Status: She is alert. Mental status is at baseline. Psychiatric: Mood and Affect: Affect is (more content not included)... Normal [facility] ETHANOLon 06-13-2024 ETHANOL IN SER/PLAS <10 Normal <10 [facility] Comment on above: Result Comment: BON Wilson COMMENTS: CERTIFIED WELDING INSPECTOR depression is seen >100 mg/dL. NOTE: This result is for medical treatment only. Analysis performed using non-forensic procedures. Performed By: #### L [id number] #### Staple Shear Operator: DEEPAK HGAAN ([id number]) [facility] ([facility]) [address] Nursing Noteon 06-13-2024 Nursing Note Pt arrived to unit 2 220 via wheelchair with fashion supervisor and brave officers. Pt came from [facility]. Pt was calm upon arrival but during intake she was being racially inappropriate with staff. Pt wears glasses, states she needs bigger sizes of clothes, fashion supervisor was notified and bigger outfit given, unit approved. Pt refused to sign any paper work stated I am being held hostage against my will and no one needs to know I am here If I want someone to know I am here I will alert them Pt able to contract for safety, denies si/hi/ah/vh at this time, denies pain or distress, vital taken. Pt oriented to unit, unit rules, summa folder given to patient. Pt stated when can I see the psych doctor I need to get discharged eb I am not crazy Pt states she's only taking three medications all of her hormones have been discontinued. Pt was given pads, snack was offered but denied. Pt was cooperative with assessment but short with her answers, became agitated towards the end of assessment. Pt requested room temperature to be turned up, rn completed. Pt states I just want to go to sleep and not be watched like a psycho. RN educated patient on safety checks. [facility] was closed when RN attempted to verify the xanax dosage and prescription. Will attempt in am, pharmacy opens at 8am [facility] SARS-COV-2 ANTIGENon 025 SARS-COV-2 ANTIGEN SARS-COV-2 ANTIGEN - BINAX Reference Negative Negative A negative result does not rule out the possibility of SARS-CoV-2 infection. NAAT-based methods should be considered for symptomatic patients presenting greater than seven days after onset of symptoms. Method: Lateral flow immunoassay. Fact sheets for healthcare providers and patients can be found at the following sites: https://www.fda.gov/media/ 298418/download https://www.fda.gov/media/ 121533/download [facility] Comment on above: Performed By: #### L [id number] #### Staple Shear Operator: DEEPAK HAGAN ([id number]) [facility] ([facility]) [address] [place] [address] [facility] 36on 06-12-2024 36 Pt called back demond aguilar to keep the surgery and states she will have a ride for her PAT appt. Surgery is now staying. [facility] 36 Called pt in regards to her PAT appointment as she cancelled it. I left a VM stating she will have to have a PAT appt in order to proceed with surgery on 06/19/24. Pt calls office back angry asking why she needs to go in person to this appt and not just do it over the phone. I then let her know you only can if you live so many hours away. Pt then gets mad and says she would like all of her medical records sent over due to the fact that she gets better care elsewhere. I let her know I will cancel the surgery and before I could get anything else out she hung up. Will be cancelling surgery that is scheduled on 06/19/24 with Tammy. [facility] CNOVon 06-03-2024 CNOV Office Visit (ENWSTR ) -- JOSSE WAYNE ([id number]) 1985 F Date Time Provider Department 06/03/24 1:00 PM ZIYAD HARRELL ENWSTR During your visit today, we recorded the following information about you: Pulse Respiration Blood pressure Weight 100/minute 16/minute 136/86 142.6 kg Ziyad Harrell MD 06/03/2024 6:32 PM Signed Endocrinology and Metabolism [place] [facility] Visit Note REASON FOR CONSULT: Evaluation of ovarian hyperandrogenism REQUESTING PHYSICIAN: Yessi Munoz MD [address] [facility] [address] [facility] [address] My final recommendations will be communicated back to the requesting physician by way of shared medical record or letter via US mail. HPI Josse Wayne is a 38 year old female presenting as a new patient to me for evaluation of ovarian hyperandrogenism. - Menarche at age 13, with irregular menses since onset, occurring approximately 3 times per year. - Hirsutism since adolescence; had elctrolysis done in the past, requires waxing every week. - No significant acne. - No changes in voice or genitalia. - No family history of PCOS or hirsutism, infertility - Previous treatment with metformin from ages 13 to 23, discontinued due to weight gain as reported. - Tried oral contraceptives without improvement in menstrual regularity or ovulation. - Currently taking Megace and estrogen for the last few weeks, as started by her OBGYN - On spironolactone 100 mg daily; reports only slight improvement in hirsutism. - Has never conceived; desires to have children. - Not currently seeing an infertility specialist. - Reports weight loss of 8 lbs recently. - Engages in walking occasionally, depending on how she feels. - Drinks water primarily, rarely consumes soda. 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 Hirsutism Hypercholesteremia 04/2014 Infertility Obesity, unspecified Obesity Other bipolar disorders PCOS (polycystic ovarian syndrome) Seizure (HCC) PAST SURGICAL HISTORY: PAST SURGICAL HISTORY Procedure Laterality Date EGD TRANSORAL BIOPSY SINGLE/MULTIPLE 05/23/08 PAST SURGICAL HISTORY OF 1997 RIGHT TEMPORAL LOBECTOMY AND IMPLANTATION OF IMPLANTS FAMILY HISTORY: FAMILY HISTORY Problem Relation Age of Onset other (sudden cardiac arrest) Mother 49 passed in 2007 Cancer Maternal Grandmother Emphysema Maternal Grandmother Heart Maternal Grandfather Stroke Paternal Grandmother Cancer Paternal Grandfather Liver Heart Maternal Aunt open heart surgery SOCIAL HISTORY: Social History Tobacco Use Smoking status: Never Smokeless tobacco: Never Vaping Use Vaping status: Never Used Substance Use Topics Alcohol use: Yes Comment: rare Drug use: No MEDICATIONS: Current Outpatient Medications on File Prior to Visit Medication Sig spironolactone (ALDACTONE) 50 mg tablet Take 50 mg by mouth once daily. (Patient taking differently: Take 100 mg by mouth once daily.) megestrol (MEGACE) 20 mg tablet 20 mg. MENEST 0.625 mg tablet Take 0.625 mg by mouth once daily. citalopram (CELEXA) 20 mg tablet Take 20 [...] mg am 2mg noon 1 mg bedtime (Patient taking differently: Take 2 mg by mouth two times a day. 2 mg am 2mg afternoon then 1 mg afternoon) meloxicam (MOBIC) 15 mg tablet Take 1 tablet by mouth once daily. (Patient not taking: Reported on 06/03/2024) benzonatate (TESSALON PERLES) 100 mg capsule Take [...] tablet by mouth once daily. (Patient not t (more content not included)... Normal [facility] 37on 05-07-2024 37 Continue Keppra 1000 mg twic daily Follow up in 1 year or sooner if needed Normal [facility] Office Visiton 05-07-2024 Follow-up visit [id number] Yamilka Wayne 1985 F Date Provider Department Center 05/07/2024 [id number] [facility] None Family History Problem Relation Age of Onset Heart attack Maternal Grandfather Family Status - Relation Status Age at Maternal Grandfather Father Alive Mother Notes: cardiac arrest Level of Service:16221 OK OFFICE/OUTPATIENT ESTABLISHED LOW MDM 20 MIN Reason for Visit and Comments: Follow-up [573259] Seizures [97] Normal [facility] Progress Noteon 05-07-2024 Progress Note Visit type: Establis hed Patient Reason for Visit: Follow-up and Seizures Assessment and Plan 1. 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 She had a lobectomy at age 12. Seizures returned in 2007 EEG 07/25-intermittent slowing focal slowing in right temporal region Keppra 1000mg bid Level=14.1 She is very upset today Says everyone is manipulating her She is needing surgery She report no seizures Compliant with meds She says she just wants her forms signed so she can go home REVIEW OF SYSTEMS: Review of Systems Constitutional: Negative. HENT: Negative. Eyes: Negative. Respiratory: Negative. Cardiovascular: Negative. Gastrointestinal: Negative. Endocrine: Negative. Genitourinary: Negative. Musculoskeletal: Negative. Skin: Negative. Allergic/Immunologic: Negative. Neurological: Negative. Hematological: Negative. Psychiatric/Behavioral: Negative. Allergies Allergen Reactions Hydralazine Hydroxyzine Other Causes mental changes Phenobarbital Rash Other reaction(s): Other (See Comments), Unknown Propanediol Rash Propranolol Rash Outpatient Medications Prior to Visit Medication Sig Dispense Refill ALPRAZolam (Xanax) 1 MG tablet Take 1 mg by mouth daily. In the afternoon ALPRAZolam (Xanax) 2 MG tablet alprazolam 2 mg tablet TAKE 1 TABLET BY MOUTH TWICE DAILY Cholecalciferol (Vitamin D) 125 MCG (5000 UT) capsule Take by mouth 2 times daily. citalopram (CeleXA) 10 MG tablet take 1 tablet by oral route every day citalopram (CeleXA) 20 MG tablet TAKE 1.5 TABLETS BY MOUTH EVERY DAY esterified estrogens (Menest) 0.625 MG tablet Take 0.625 mg by mouth daily. ferrous sulfate 325 (65 Fe) MG tablet Take 325 mg by mouth daily (with breakfast). finasteride (Proscar) 5 MG tablet Take 5 mg by mouth daily. megestrol (Megace) 20 MG tablet Take 1 tablet (20 mg total) by mouth 2 times daily. 60 tablet 11 spironolactone (Aldactone) 50 MG tablet Take 50 mg by mouth daily. levETIRAcetam (Keppra) 1000 MG tablet Take 1 tablet (1,000 mg) by mouth 2 times daily. 60 tablet 11 megestrol (Megace) 20 MG tablet TAKE 1 TABLET BY MOUTH EVERY 6 HOURS UNTIL BLEEDING STOPS, THEN TAKE 1 TABLET DAILY (Patient not taking: Reported on 05/07/2024) 30 tablet 1 Menest 0.3 MG tablet Take 0.3 mg by mouth daily. (Patient not taking: Reported on 05/07/2024) No facility-administered medications prior to visit. Past Medical History: Diagnosis Date Anxiety Depression Epilepsia (HCC) GERD (gastroesophageal reflux disease) PCOS (polycystic ovarian syndrome) PTSD (post-traumatic stress disorder) no CPAP Sleep apnea Social History Tobacco Use Smoking status: Never Smokeless tobacco: Never Substance Use Topics Alcohol use: Not Currently Past Surgical History: Procedure Laterality Date BRAIN SURGERY 1997 DILATION AND CURETTAGE OF UTERUS 03/08/2024 HYSTEROSCOPY 03/08/2024 Family History Problem Relation Name Age of Onset Heart attack Maternal Grandfather Objective Vitals: BP 128/86 (BP Location: Left arm, Patient Position: Sitting, BP Cuff Size: Large adult) Pulse 83 Ht 5' 4 (1.626 m) Wt (!) 318 lb 2.2 oz (144 kg) BMI 54.61 kg/m? General Appearance: Patient is in no [...] 10/28/2020 VITAMIN B12: No results found for: [id number] No results found for: PHENYTOIN, PHENOBARB, VALPROATE, CBMZ No components found for: TOPIRA @R (more content not included)... Normal [facility] CBC W/Diff, Automatedon 04-13 Absolute Lymph 2.03 X10 3/uL Normal 0.83-4.51 [facility] Comment on above: Performed By: #### L 400.0001 #### [facility] [address] [place], [address] Absolute Neut 3.4 X10 3/uL Normal 2.0-7.7 [facility] Comment on above: Performed By: #### L 400.0001 #### [facility] [address] [place], [address] Basophils/100 WBC (Bld) 0.7 % Normal 0-1 [facility] Comment on above: Performed By: #### L 400.0001 #### [facility] [address] [place], [address] Eosinophils/100 WBC (Bld) 0.5 % Normal 0-5 [facility] Comment on above: Performed By: #### L 400.0001 #### [facility] [address] [place], [address] Erythrocyte distribution width (RBC) [Ratio] 12.9 % Normal 11.6-14.6 [facility] Comment on above: Performed By: #### L 400.0001 #### [facility] [address] [place], [address] Hematocrit (Bld) [Volume fraction] 42.1 % Normal 37-47 [facility] Comment on above: Performed By: #### L 400.0001 #### [facility] [address] [place], [address] Hemoglobin (Bld) [Mass/Vol] 13.7 g/dL Normal 12.0-15.0 [facility] Comment on above: Performed By: #### L 400.0001 #### [facility] [address] [place], [address] IG% 0.500 Normal 0.0-0.9 [facility] Comment on above: Result Comment: IG% - Immature Granulocytes (promyelocytes, myelocytes and metamyelocytes) > 1% indicates that a LEFT SHIFT is Present. Performed By: #### L 400.0001 #### [facility] [address] [place], [address] Lymphocytes/100 WBC (Bld) 33.9 % Normal 19-41 [facility] Comment on above: Performed By: #### L 400.0001 #### [facility] [address] [place], [address] MCH (RBC) [Entitic mass] 27.2 pg Normal 27.0-32.0 [facility] Comment on above: Performed By: #### L 400.0001 #### [facility] [address] [place], [address] MCHC (RBC) [Mass/Vol] 32.5 g/dL Normal 32-36 [facility] Comment on above: Performed By: #### L 400.0001 #### [facility] [address] [place], [address] MCV (RBC) [Entitic vol] 83.7 fL Normal 81-99 [facility] Comment on above: Performed By: #### L 400.0001 #### [facility] [address] [place], [address] Monocytes/100 WBC (Bld) 7.4 % Normal 0-10 [facility] Comment on above: Performed By: #### L 400.0001 #### [facility] [address] [place], [address] Neutrophils/100 WBC (Bld) 57.0 % Normal 47-70 [facility] Comment on above: Performed By: #### L 400.0001 #### [facility] [address] [place], [address] Nucleated RBC (Bld) [#/Vol] 0 10*3/uL Normal 0-5 [facility] Comment on above: Performed By: #### L 400.0001 #### [facility] [address] [place], [address] Platelet mean volume (Bld) [Entitic vol] 10.7 fL Normal 6.2-12.0 [facility] Comment on above: Performed By: #### L 400.0001 #### [facility] [address] [place], [address] Platelets (Bld) [#/Vol] 290 10*3/uL Normal 150-450 [facility] Comment on above: Performed By: #### L 400.0001 #### [facility] [address] [place], [address] RBC (Bld) [#/Vol] 5.03 10*6/uL Normal 4.2-5.4 [facility] Comment on above: Performed By: #### L 400.0001 #### [facility] [address] [place], [address] RDW SD 39.0 fl Normal 35.1-43.9 [facility] Comment on above: Performed By: #### L 400.0001 #### [facility] [address] [place], [place], [address] WBC (Bld) [#/Vol] 6.0 10*3/uL Normal 4.4-11.0 [facility] Comment on above: Performed By: #### L 400.0001 #### [facility] [address] [place], [address] 36on 04-23-2024 36 Noted [facility] 29on 04-22-2024 29 Addended by: ANGELLA ONEILL on: 04/22/2024 04:14 PM Modules accepted: Orders [facility] 36on 04-22-2024 [address] Munoz [facility] 36 Patient states she c ould not get into [place] and would like the order sent to Dr. Ziyad Harrell at [facility] [address] Specialty [phone] [facility] 36on 04-19-2024 [address] Munoz [facility] Office Visiton 03-25-2024 Follow-up visit [id number] Yamilka Wayne 1985 F Date Provider Department Center 03/25/2024 YESSI SOTO JAKE OB [facility] Offi Family History Problem Relation Age of Onset Heart attack Maternal Grandfather Family Status - Relation Status Age at Maternal Grandfather Father Alive Mother Notes: cardiac arrest Level of Service:32783 [place] OFFICE/OUTPATIENT ESTABLISHED MOD MDM 30 MIN Reason for Visit and Comments: Post-op Visit [559] - 2 week post op hysteroscopy DC on 03/08 [facility] Progress Noteon 03-25-2024 Progress Note Chief Complaint Patient presents with Post-op Visit 2 week post op hysteroscopy DC on 03/08 HPI Pt here to discuss results ROS: Constitutional - denies fevers or chills Resp - denies CP or SOB CV - denies CP GI - denies nausea, vomiting - denies frequency and dysuria Past Medical History: Diagnosis Date Anxiety Depression Epilepsia (HCC) GERD (gastroesophageal reflux disease) PCOS (polycystic ovarian syndrome) PTSD (post-traumatic stress disorder) no CPAP Sleep apnea Past Surgical History: Procedure Laterality Date BRAIN SURGERY 1997 DILATION AND CURETTAGE OF UTERUS 03/08/2024 HYSTEROSCOPY 03/08/2024 Allergies Allergen Reactions Hydralazine Hydroxyzine Other Causes mental changes Phenobarbital Rash Other reaction(s): Other (See Comments), Unknown Propanediol Rash Propranolol Rash @MEDCMED@ BP 130/84 Ht 1.626 m (5' 4) Wt (!) 147 kg (323 lb) LMP 03/10/2024 (Approximate) BMI 55.44 kg/m? PE: Well developed, well nourished Normocephalic, atraumatic CV - normal rate Resp - normal effort Abd - soft, ND MS - no edema Neuro - Pt A&Ox3, NAD Skin - warn and dry Psych - normal affect and behavior Josse was seen today for post-op visit. Diagnoses and all orders for this visit: PCOS (polycystic ovarian syndrome) (Primary) - [facility] Endocrinology; Future Endometrial hyperplasia Other orders - megestrol (Megace) 20 MG tablet; Take 1 tablet (20 mg total) by mouth 2 times daily. Megace Follow up 3 months repeat D&C Follow up in about 3 months (around 06/23/2024). [facility] 29on 03-14-2024 29 Addended by: DARRELL STERN on: 03/14/2024 09:49 AM Modules accepted: Orders [facility] 36on 03-14-2024 36 Spoke with pt. She i s good on refills now. Follow up scheduled for 05/07/24 [facility] 36 Message released to patient as written. Patient's further questions if applicable: Please send to: [facility] - [place], [place] - [address] [place] [address] Were all questions from office addressed or relayed to the patient from encounter: Yes [facility] 36 Lm for patient to [place] the office back, please relay providers message. Normal [facility] 36 I got a refill reque st for her Ottoppra but it is asking to send to [facility] Can you find out where she wants refill sent to? [facility] Nursing Noteon 03-08-2024 Nursing Note Patient stepped out from behind cubicle curtain , yelling because staff were taking too long with attempting to arrange transportation for discharge. Patient abruptly left PACU into corridor on second floor followed by Protective Services. Normal [facility] Nursing Note Patient was given a copy of her homegoing instructions and proceeded to tear the packet up. Normal [facility] Nursing Note Patient was in bed w ith curtain partially closed. Dressing self. When explaining to patient she can not not walk to [facility] to find a ride home to [place]. Patient began yelling and screaming that she was leaving and she didn't care what anyone said. Patient became more enraged with yelling and screaming. [employer] called. [facility] protective services immediately arrived to the PACU and continued to attempt to deescalate the situation. It was explained to patient that we cannot allow her to walk a couple of blocks to [facility] and await a ride. Nursing Product Communications Manager notified and on site in PACU. [facility] Nursing Note Patient does not wan t to medicated at this time [facility] Nursing Note Patient states pain has gone to a 3. Much less discomfort and cramping. [facility] Nursing Note Both Dr. Munoz and Dr. Prater aware that pt came by [employer] today and states very tearfully that she has no one to pick her up. Pt notified of risks and still wishes to proceed. [facility] Nursing Note Patient educated on importance of coughing/ deep breathing after surgery to reduce risk of pneumonia. Patient educated on importance of early mobility to reduce the risk of blood clots. Falls prevention information reviewed with patient. Post-operative pain control and ways to prevent constipation discussed with patient. [facility] Op Noteon 03-08-2024 Op Note Preop diagnosis: Menorrhagia Postoperative gnosis: Same Operation D&C Surgeon: Luciano Anesthesia: General EBL: Minimal Brief history: Patient is a 38-year-old with PCOS who is scheduled to undergo endometrial sampling. She has been bleeding for several months. She was aware of the risks and benefits associated with the procedure. Due to social circumstances it was elected to proceed with this surgery under monitored anesthesia care. She was aware of the risks and benefits associated with the procedure. Details of procedure: Patient brought the operative suite where she was placed in lithotomy. She was prepped and draped. Timeout was held. She was given monitored anesthesia care. When the patient was adequately anesthetized a weighted speculum was placed in the vagina and the anterior lip of the cervix was grasped with a single-tooth tenaculum. The cervix was prepped with Betadine. The uterus sounded to 10 cm. The cervix was dilated. The cavity was thoroughly curetted. At this point the procedure was terminated and patient was awoken from anesthesia and transferred to the recovery room in stable condition. [facility] [id number] 03-04-2024 [id number] Medication List Accurate as of March 04, 2024 9:12 AM. Always use your most recent med list. * ALPRAZolam 2 MG tablet Commonly known as: Xanax Medication Adjustments for Surgery: Take morning of surgery * ALPRAZolam 1 MG tablet Commonly known as: Xanax Medication Adjustments for Surgery: Take morning of surgery * citalopram 10 MG tablet Commonly known as: CeleXA Medication Adjustments for Surgery: Take morning of surgery * citalopram 20 MG tablet Commonly known as: CeleXA Medication Adjustments for Surgery: Take morning of surgery ferrous sulfate 325 (65 Fe) MG tablet Medication Adjustments for Surgery: Hold morning of surgery finasteride 5 MG tablet Commonly known as: Proscar Medication Adjustments for Surgery: Take morning of surgery * levETIRAcetam 1000 MG tablet Commonly known as: Keppra Take 1 tablet (1,000 mg) by mouth 2 times daily. Medication Adjustments for Surgery: Take morning of surgery * levETIRAcetam 1000 MG tablet Commonly known as: Keppra Take 1 tablet (1,000 mg) by mouth 2 times daily. Medication Adjustments for Surgery: Take morning of surgery megestrol 20 MG tablet Commonly known as: Megace 1 tablet every 6 hours until bleeding stops then 1 tablet per day Medication Adjustments for Surgery: Take morning of surgery Menest 0.3 MG tablet Generic drug: esterified estrogens Medication Adjustments for Surgery: Take morning of surgery spironolactone 50 MG tablet Commonly known as: Aldactone Medication Adjustments for Surgery: Hold morning of surgery Vitamin D 125 MCG (5000 UT) capsule Medication Adjustments for Surgery: Hold morning of surgery * This list has 6 medication(s) that are the same as other medications prescribed for you. Read the directions carefully, and ask your doctor or other care provider to review them with you. Additional Instructions: You may take your prescription pain medication. You may take Tylenol for pain. NO Motrin, ibuprofen or Advil for 24 hours prior to surgery or longer if instructed by your surgeon. NO Aleve or Naprosyn for 5 days prior to surgery or longer if instructed by your surgeon. IF YOU TAKE BLOOD THINNERS OR ASPIRIN: Follow any instructions given to you by Dr. Munoz Shower with an antibacterial soap such as Dial or Safeguard or shower kit provided to you before coming to the hospital. No makeup, lotion, powder, deodorant or body spays. No hair products. Remove all jewelry and leave it at home. Wear loose comfortable clothing to go home in. You may brush your teeth morning of surgery. Do not wear contacts day of surgery. No marijuana (THC), smoking or alcohol for 24 hours prior to surgery. Please arrange for a responsible adult to drive you home after your surgery and that there is a responsible adult with you for 24 hours post discharge. If you have specific questions, please call your surgeon. You will receive a call the day before your surgery to verify your arrival time and date. You will be asked to arrive at least two hours prior to your scheduled surgery time. Please bring your [facility] Surgical folder and medication list with you day of surgery. We encourage you to write down any questions you may have for the surgeon, anesthesiologist, or other members of the surgical team and bring it with you the day of surgery. Please bring photo ID and insurance information.Santa: Arrive at the main entrance (not the ER entrance). [employer] parking is available for a fee. All patients must stop at the registration department (which is the first department past the [employer] shop) North elevators are near the registration department Take elevator to 2nd floor - surgical waiting lobby to the left Proceed through door to the Same Day Surgery desk Normal [facility] 36on 02-26-2024 36 PAT: by phone 2023 at 9 am SX: 03.08.2024 at 3 pm arrival at 1 pm Post op 03.25.2024 at 1:45 pm Instructions given. Normal [facility] Cerv Spine 4 or 5 Viewson Cerv Spine 4 or 5 Views [facility] Imaging Services [address] [place], [place] [address] Cerv Spine 4 or 5 Views MR#: [id number] Acct: [id number] Name: JOSSE WAYNE Rep #: [id number] : 1985 F 38 From: Jean-Claude Gandara MD PCP: Dr. Peter Maya MD Status: REG CLI Study: Cerv Spine 4 or 5 Views Date of Exam: 02/06/24 Exam# [id number] Ordering Dr: Peter Maya MD [id number] EXAM: XR CERVICAL SPINE, 4 OR 5 VIEWS CLINICAL INDICATION: Numbness in right TECHNIQUE: Frontal, lateral and bilateral oblique views of the cervical spine. COMPARISON: No relevant prior studies available. FINDINGS: VERTEBRAE: Unremarkable. Preserved vertebral body height. No acute fracture. No spondylolisthesis. Preservation of the normal cervical lordosis. No significant facet arthropathy. DISC SPACES: Unremarkable. Disc spaces are maintained. SOFT TISSUES: Unremarkable. No prevertebral soft tissue widening. LUNG APICES: Clear. RAD/Cerv Spine 4 or 5 Views IMPRESSION: No evidence of acute fracture or spondylolisthesis. Electronically Signed: Jean-Claude Gandara MD at 8:47 EST , CC: Dr. Peter Maya MD Web Manager: Signed [address] 02-05-[address] Sanchez called and rev iewed US results. Dr. Sanchez wanting to do a hysteroscopy and D&C. I called patient same day on 02/04 for consent forms. Pt declines coming to office to sign forms. Pt refuses to sign up for MyChart, she states that she doesn't have internet. I asked manager van what other options we can do. Shobha says that we can mail her surgery consent forms and she can either mail them back or bring them day of surgery. I then called and LVM for patient to update her. Surgery consent forms are mailed out. [facility] 36 Dr. Sanchez called patient to review US [facility] Progress Noteon 02-05-2024 Progress Note Discussed this. Sherie valentine. Megace and D&C. [facility] 36on 01-30-2024 36 Name of caller: Moni Wayne Contact phone number: [phone] Relationship to Patient: patient Provider: Dr Munoz Practice: [facility] Chief Complaint/Reason for Call: See Triage 01.25.24. Pt is demanding a call from the [facility] as to why she was lied to about her US results. Pt states she was supposed to get a phone call & now she has to come into the ofc to go over results? Pt was offered 1st available appts which are around the holidays that pt declined stating there are too many drunk people on the road & she is not risking her life for these results. Pt was yelling, rude & vulgar on the line. Please contact pt to go over her complaints Best time of day caller can be reached: An Patient advised that office/PCP has 24-48 business hours to return their call: Yes [facility] 36on 01-25-2024 36 Called and LVM to sidhu ve pt schedule an appointment to review results, review bloodwork, and discuss concerns for yeast infection. Pt needs an appointment to review further workup [facility] 36 Called and spoke w/ pt. She was upset that no one has reached out to her w/ the results of her US. She was very short and had an agitated tone. She stated she was going back to the ED today to be tested because no one in this office cares about her. She wants to cancel her next 12 appts and is demanding someone call and give her US results because that is all she wants. [facility] 36on 01-24-2024 36 S: Patient spoke to CAC nurse regarding itchiness, discharge, cycle since may B: Onset of symptoms/concerns 2 weeks A: Patient states she is experiencing odor, itchiness and has been on cycle since may. Patient was frustrated at beginning of call. Patient started with yeast infection symptoms and then told me she was bleeding since May. Patient didn't want to answer anymore questions and said she would rather be seen in the ED and to cancel her next appointments because nobody cares. Patient then demanded to know when her ultrasound results would be done. As I was telling her I would message the doctor she started using profanities and ended the call. R: Unable to complete this call. Upset about wanting to go over ultrasound results. Reason for Disposition Triager unable to complete call (e.g., caller continues to be abusive or caller hangs up) Protocols used: Difficult Amms-OVOAH-BX Normal [facility] US PELVIS TRANSVAGINALon US PELVIS TRANSVAGINAL --------- Gynecological Report (Signed Final 01/23/2024 01:01 pm) PATIENT INFO: ID #: [id number] : [birth year] (38 yrs)(F) Name: JOSSE PENNY Visit Date: 01/23/2024 11:19 am DEEDS PERFORMED BY: Attending: Eboni Moise MD Performed By: Bel Lemos RDMS Referred By: YESSI MUNOZ Location: [facility] BLOW MOULDING MACHINE OPERATOR [place] Visit Type: [facility] BLOW MOULDING MACHINE OPERATOR SERVICE(S) PROVIDED: Hatchery Attendant Transvaginal [id number] INDICATIONS: Excessive bleeding in the premenopausal N92.4 period Unsure on LMP, Bleeding since May 2023 TV ASPHALT DISTRIBUTOR OPERATOR ultrasound TECHNIQUE/SCAN QUALITY: Technique: Transvaginal Approach Scan Quality: Technically limited due to body habitus COMPARISON: 01/06/2021 PCOS HISTORY: Age: 38 Menses: Unknown HX COMMENTS: Non latex cover used. UTERUS: Uterus: Heterogeneous Position: Anteverted Size (cm) L: 8.39 W: 5.18 H: 4.17 ENDOMETRIUM: Endometrium: Thickened Thickness(mm): 16.23 CERVIX: Multiple cervical cysts are noted. CUL-DE-SAC: No free fluid was visualized RIGHT OVARY: Status: Visualized Size (cm) L: 3.59 W: 3.09 H: 2.42 Vol (ml): 14.06 Morphology: Polycystic Type: Simple cyst Size (cm) L: 1.26 W: 1.62 H: 2.47 Vol (ml): 2.64 LEFT OVARY: Status: Not visualized Eboni Moise MD Electronically Signed Final Report 01/23/2024 01:01 pm IMPRESSION: The right ovary is enlarged and has several, small cysts along the periphery of the ovary. This appearance and ovarian volumes over 10 cc can be associated with PCOS. Clinical correlation is required. The right ovary contains a simple cyst. Left ovary was not visualized based on [facility]. Endometrium is thickened, echogenic and uniform measuring 16.23mm. No increased blood flow is noted. Consider endometrial sampling if clinically indicated. No free fluid or adnexal masses seen. Patient is scheduled to see Dr. Munoz following ultrasound 02/14/2024. *Ultrasound cannot detect all pelvic or ASPHALT DISTRIBUTOR OPERATOR abnormalities and normal findings cannot guarantee the absence of a problem.* Normal [facility] US Pelvis transvaginalon The right ovary is enlarged and has several, small cysts along the periphery of the ovary. This appearance and ovarian volumes over 10 cc can be associated with PCOS. Clinical correlation is required. The right ovary contains a simple cyst. Left ovary was not visualized based on [facility]. Endometrium is thickened, echogenic and uniform measuring 16.23mm. No increased blood flow is noted. Consider endometrial sampling if clinically indicated. No free fluid or adnexal masses seen. Patient is scheduled to see Dr. Munoz following ultrasound 02/14/2024. *Ultrasound cannot detect all pelvic or ASPHALT DISTRIBUTOR OPERATOR abnormalities and normal findings cannot guarantee the absence of a problem.* [facility] Gynecological Report (Signed Final 01/23/2024 01:01 pm) PATIENT INFO: ID #: [id number] : [birth year] (38 yrs)(F) Name: JOSSE PENNY Visit Date: 01/23/2024 11:19 am DEEDS PERFORMED BY: Attending: Eboni Moise MD Performed By: Bel Lemos RDMS Referred By: YESSI MUNOZ Location: [facility] BLOW MOULDING MACHINE OPERATOR [place] Visit Type: [facility] BLOW MOULDING MACHINE OPERATOR SERVICE(S) PROVIDED: Hatchery Attendant Transvaginal [id number] INDICATIONS: Excessive bleeding in the premenopausal N92.4 period Unsure on LMP, Bleeding since May 2023 TV ASPHALT DISTRIBUTOR OPERATOR ultrasound TECHNIQUE/SCAN QUALITY: Technique: Transvaginal Approach Scan Quality: Technically limited due to body habitus COMPARISON: 01/06/2021 PCOS HISTORY: Age: 38 Menses: Unknown HX COMMENTS: Non latex cover used. UTERUS: Uterus: Heterogeneous Position: Anteverted Size (cm) L: 8.39 W: 5.18 H: 4.17 ENDOMETRIUM: Endometrium: Thickened Thickness(mm): 16.23 CERVIX: Multiple cervical cysts are noted. CUL-DE-SAC: No free fluid was visualized RIGHT OVARY: Status: Visualized Size (cm) L: 3.59 W: 3.09 H: 2.42 Vol (ml): 14.06 Morphology: Polycystic Type: Simple cyst Size (cm) L: 1.26 W: 1.62 H: 2.47 Vol (ml): 2.64 LEFT OVARY: Status: Not visualized Eboni Moise MD Electronically Signed Final Report 01/23/2024 01:01 pm [facility] Eboni Moise MD - 01/23/2024 Gynecological Report (Signed Final 01/23/2024 01:01 pm) PATIENT INFO: ID #: [id number] : [birth year] (38 yrs)(F) Name: JOSSE PENNY Visit Date: 01/23/2024 11:19 am DEEDS PERFORMED BY: Attending: Eboni Moise MD Performed By: Bel Lemos RDMS Referred By: YESSI MUNOZ Location: [facility] BLOW MOULDING MACHINE OPERATOR [place] Visit Type: [facility] BLOW MOULDING MACHINE OPERATOR SERVICE(S) PROVIDED: Hatchery Attendant Transvaginal [id number] INDICATIONS: Excessive bleeding in the premenopausal N92.4 period Unsure on LMP, Bleeding since May 2023 TV ASPHALT DISTRIBUTOR OPERATOR ultrasound TECHNIQUE/SCAN QUALITY: Technique: Transvaginal Approach Scan Quality: Technically limited due to body habitus COMPARISON: 01/06/2021 PCOS HISTORY: Age: 38 Menses: Unknown HX COMMENTS: Non latex cover used. UTERUS: Uterus: Heterogeneous Position: Anteverted Size (cm) L: 8.39 W: 5.18 H: 4.17 ENDOMETRIUM: Endometrium: Thickened Thickness(mm): 16.23 CERVIX: Multiple cervical cysts are noted. CUL-DE-SAC: No free fluid was visualized RIGHT OVARY: Status: Visualized Size (cm) L: 3.59 W: 3.09 H: 2.42 Vol (ml): 14.06 Morphology: Polycystic Type: Simple cyst Size (cm) L: 1.26 W: 1.62 H: 2.47 Vol (ml): 2.64 LEFT OVARY: Status: Not visualized Eboni Moise MD Electronically Signed Final Report 01/23/2024 01:01 pm IMPRESSION: The right ovary is enlarged and has several, small cysts along the periphery of the ovary. This appearance and ovarian volumes over 10 cc can be associated with PCOS. Clinical correlation is required. The right ovary contains a simple cyst. Left ovary was not visualized based on [facility]. Endometrium is thickened, echogenic and uniform measuring 16.23mm. No increased blood flow is noted. Consider endometrial sampling if clinically indicated. No free fluid or adnexal masses seen. Patient is scheduled to see Dr. Munoz following ultrasound 02/14/2024. *Ultrasound cannot detect all pelvic or ASPHALT DISTRIBUTOR OPERATOR abnormalities and normal findings cannot guarantee the absence of a problem.* [facility] Radiology Study observation (narrative) [facility] [employer] US Pelvis transvaginalOrdere d By: Eboni Moise on 01-23-2024 [employer] Work Phone: 36on 01-18-2024 36 Message released to patient as written. Yes Labs consistent with PCOS, can discuss at next visit Patient's further questions if applicable: N/A Were all questions from office addressed or relayed to the patient from encounter: Yes Normal [facility] DHEA Sulfateon 01-12-2024 DHEA SULFATE 216.0 ug/dL Normal 57.3-279.2 [facility] Comment on above: Order Comment: MARICARMEN CTOR TO SPECIFY Performed By: #### L 400.0001 #### [facility] [address] [place], [address] Insulin Levelon 01-12-2024 INSULIN,FASTING 40.8 uIU/mL High 2.6-24.9 [facility] Comment on above: Order Comment: MARICARMEN CTOR TO SPECIFY Result Comment: Perf ormed at: [facility] [id number] Signal Manager: Cuate Malhotra PhD, Phone: [phone] Performed at: [facility] [address] [id number] Signal Manager: Phil Archibald MD, Phone: [phone] Performed By: #### L 400.0001 #### [facility] [address] [place], [address] PROLACTIN 4465on 01-12-2024 PROLACTIN 12.6 ng/mL Normal 4.8-33.4 [facility] Comment on above: Order Comment: MARICARMEN CTOR TO SPECIFY Performed By: #### L 400.0001 #### [facility] [address] [place], [address] Testosterone, Total / Freeon 01-12-2024 TESTOSTER,FREE 1.77 ng/dL Abnormal 0.10-0.85 [facility] Comment on above: Order Comment: COLLE CTOR TO SPECIFY Performed By: #### L 400.0001 #### [facility] [address] [place], [place], [address] TESTOSTER,TOTAL 77 ng/dL High 8-60 [facility] Comment on above: Order Comment: COLLE CTOR TO SPECIFY Performed By: #### L 400.0001 #### [facility] [address] [place], [place], [address] TESTOSTERONE,%F 2.30 Normal 0.50-2.80 [facility] Comment on above: Order Comment: COLLE CTOR TO SPECIFY Performed By: #### L 400.0001 #### [facility] [address] [place], [place], [id number] 17-Hydroxyprogesteroneon 17ALPHA [place]-PROG 59 ng/dL Normal . [facility] Comment on above: Order Comment: Test( s) 644672-44-WU Progesterone LCMSwas developed and its performance characteristicsdetermined by [employer]. It has not been cleared or approvedby the Food and Drug Administration.N Result Comment: Adul t Female Follicular 15 - 70 Luteal 35 - 290 Performed at: [address] [id number] Signal Manager: Phil Archibald MD, Phone: [phone] Performed By: #### L 9000.0810 #### [facility] [address] [place], [address] 36on 01-08-2024 36 S: The patient is ca lling the CAC about a medication B: She hung up prior to talking to a nurse R: Left a message for her to call back if she continues to need assistance. Reason for Disposition ? Message left on identified voicemail Protocols used: No Contact or Duplicate Contact [id number] [facility] CBC-Complete Blood Cnt No Di ffon 01-05-2024 Erythrocyte distribution width (RBC) [Ratio] 12.1 % Normal 11.6-14.6 [facility] Comment on above: Performed By: #### L 9000.0810 #### [facility] [address] [place], [address] Hematocrit (Bld) [Volume fraction] 40.8 % Normal 37-47 [facility] Comment on above: Performed By: #### L 9000.0810 #### [facility] [address] [place], [address] Hemoglobin (Bld) [Mass/Vol] 13.9 g/dL Normal 12.0-15.0 [facility] Comment on above: Performed By: #### L 9000.0810 #### [facility] [address] [place], [address] MCH (RBC) [Entitic mass] 29.7 pg Normal 27.0-32.0 [facility] Comment on above: Performed By: #### L 9000.0810 #### [facility] [address] [place], [address] MCHC (RBC) [Mass/Vol] 34.1 g/dL Normal 32-36 [facility] Comment on above: Performed By: #### L 9000.0810 #### [facility] [address] [place], [address] MCV (RBC) [Entitic vol] 87.2 fL Normal 81-99 [facility] Comment on above: Performed By: #### L 9000.0810 #### [facility] [address] [place], [address] Platelet mean volume (Bld) [Entitic vol] 9.8 fL Normal 6.2-12.0 [facility] Comment on above: Performed By: #### L 9000.0810 #### [facility] [address] [place], [address] Platelets (Bld) [#/Vol] 331 10*3/uL Normal 150-450 [facility] Comment on above: Performed By: #### L 9000.0810 #### [facility] [address] [place], [address] RBC (Bld) [#/Vol] 4.68 10*6/uL Normal 4.2-5.4 [facility] Comment on above: Performed By: #### L 9000.0810 #### [facility] [address] [place], [address] RDW SD 38.4 fl Normal 35.1-43.9 [facility] Comment on above: Performed By: #### L 9000.0810 #### [facility] [address] [place], [address] WBC (Bld) [#/Vol] 5.4 10*3/uL Normal 4.4-11.0 [facility] Comment on above: Performed By: #### L 9000.0810 #### [facility] [address] [place], [address] Glucoseon 01-05-2024 Glucose [Mass/Vol] 130 mg/dL High 74-106 [facility] Comment on above: Result Comment: Fast ing Glucose result greater than or equal to 126 mg/dL suggests DIABETES MELLITUS per A.D.A. criteria. Performed By: #### L 9000.0810 #### [facility] [address] [place], [address] Thyroid Stim Hormone (TSH)on 01-05-2024 TSH 2.060 uIU/mL Normal 0.358-3.[address] [facility] Comment on above: Performed By: #### L 9000.0810 #### [facility] [address] [place], [address] hCG Titer Quant., Serumon HCG QUANT. < 1 Normal 1-3 [facility] Comment on above: Result Comment: hCG levels with Gestational Age Gestational Age hCG mIU/mL (IU/L) 0.2 - 1 week 5 - 50 1-2 weeks 50 - 500 2-3 weeks 100 - 5000 3-4 weeks 500 - 75095 4-5 weeks 1000 - 28067 5-6 weeks 26035 - 100,000 6-8 weeks 10130 - 200,000 2-3 months 45859 - 100,000 Performed By: #### L 9000.0810 #### [facility] [address] [place], [address] 36on 01-03-2024 36 Prior Auth Megestrol acetate initiated through [employer]. Colin: [id number] *ERVIN kicked back an instant approval Normal [facility] Office Visiton 01-03-2024 Follow-up visit [id number] Yamilka Wayne 1985 F Date Provider Department Center 01/03/2024 [id number] MUNOZG [facility] OB Offi Family History Problem Relation Age of Onset Heart attack Maternal Grandfather Family Status - Relation Status Age at Maternal Grandfather Father Alive Mother Notes: cardiac arrest Level of Service:96016 OK OFFICE/OUTPATIENT ESTABLISHED MOD MDM 30 MIN Reason for Visit and Comments: Vaginal Bleeding [722983] - Pt bleeding since May Heavy bleeding Passing clots with cramping Normal [facility] Progress Noteon 01-03-2024 Progress Note Chief Complaint Patient presents with Vaginal Bleeding Pt bleeding since May Heavy bleeding Passing clots with cramping HPI Can't stop bleeding Some cramping This has been going on for several months ROS: Constitutional - denies fevers or chills Resp - denies CP or SOB CV - denies CP GI - denies nausea, vomiting - denies frequency and dysuria Past Medical History: Diagnosis Date Anxiety Depression Epilepsia (HCC) PCOS (polycystic ovarian syndrome) PTSD (post-traumatic stress disorder) Past Surgical History: Procedure Laterality Date BRAIN SURGERY 1997 Allergies Allergen Reactions Hydralazine Hydroxyzine Other Causes mental changes Phenobarbital Rash Other reaction(s): Other (See Comments), Unknown Propanediol Rash Propranolol Rash @MEDCMED@ 138/86 Ht 1.626 m (5' 4) Wt (!) 158 kg (348 lb) LMP 05/26/2023 (Approximate) BMI 59.73 kg/m? PE: Well developed, well nourished Normocephalic, atraumatic CV - normal rate Resp - normal effort Abd - soft, ND MS - no edema Neuro - Pt A&Ox3, NAD Skin - warn and dry Psych - normal affect and behavior Josse was seen today for vaginal bleeding. Diagnoses and all orders for this visit: Excessive bleeding in premenopausal period (Primary) - 17-Hydroxyprogesterone; Future - Prolactin; Future - Testo,Free/Total (Sendout); Future - TSH; Future - hCG, quantitative; Future - DHEA-sulfate; Future - Insulin; Future - Glucose, random; Future - US pelvis transvaginal; Future - CBC; Future - 17-Hydroxyprogesterone - Prolactin - Testo,Free/Total (Sendout) - TSH - hCG, quantitative - DHEA-sulfate - Insulin - Glucose, random - CBC Other orders - megestrol (Megace) 20 MG tablet; 1 tablet every 4-6 hours until bleeding stops then 1 tablet per day We discussed work up and labs and possible biopsy Follow up for medical sales representative us. Normal [facility] Progress Note Left message for pat ient to call to schedule surgery. Normal [facility] Progress Note PATIENT called back scheduled 03/08/2024 at 3 pm waiting on PAT phone call info patient has anthem bcbs [facility] Hemoglobin A1con 12-14-2023 HbA1c (Bld) [Mass fraction] 5.5 % Normal 3.8-5.6 [facility] Comment on above: Result Comment: Norm al < 5.7 % Prediabetic 5.7 - 6.4 % Diabetic >or= 6.5 % Please note range changes. Performed By: #### L 400.0001 #### [facility] [address] [place], [address] 36on 12-01-2023 36 Noted. Pt declined a dvice to go to ED and scheduled appt for 01/02 [facility] 36on 11-30-2023 36 S: Patient spoke wit h CAC nurse regarding vaginal bleeding. B: Onset of [...] 2 hours) Protocols used: Vaginal Bleeding - [id number] Normal [facility] 12 Lead EKGon 10-08-2023 [address] [facility] Cardiovascular Services [address] [place] [address] 12 Lead EKG 10/08/23 1413 MR#: [id number] Acct: [id number] Name: JOSSE WAYNE Rep #: [id number] : 1985 38 From: Tonio Bowden MD Attending Dr: Status: DEP ER Ordering Dr: Uday Almaraz DO Date: 10/08/23 Location: ED Sex: F C Admitted: Test Reason : CP Blood Pressure : / mmHG Vent. Rate : 073 BPM Atrial Rate : 073 BPM P-R Int : 164 ms QRS Dur : 090 ms QT Int : 396 ms P-R-T Axes : 023 029 027 degrees QTc Int : 436 ms Normal sinus rhythm Normal ECG Confirmed by CRISTINO ARCE, VINEET ([id number]), assistant production editor MAGO WARD ([id number]) on 10/10/2023 2:25:45 PM Referred By: DH/DK Confirmed By:RUBÉN BOWDEN MD 10/10/23 1425 Date Tonio Bowden MD CC: Dr. Peter Maya MD; Dr. Uday Almaraz DO Signed Normal [facility] Basic Metabolic Profile (BMP )on 10-08-2023 BUN/CRE 10.7 RATIO Normal 10-20 [facility] Comment on above: Order Comment: 'TROP ' Serial specimen #1, #2 or #3: 1 Performed By: #### L 500.2500, L501.4020, L100.0100 #### [facility] [address] [place], [address] CA,Total 9.0 mg/dL Normal 8.5-10.1 [facility] Comment on above: Order Comment: 'TROP ' Serial specimen #1, #2 or #3: 1 Performed By: #### L 500.2500, L501.4020, L100.0100 #### [facility] [address] [place], [address] Chloride [Moles/Vol] 109 mmol/L High 98-107 [facility] Comment on above: Order Comment: 'TROP ' Serial specimen #1, #2 or #3: 1 Performed By: #### L 500.2500, L501.4020, L100.0100 #### [facility] [address] [place], [address] CO2 [Moles/Vol] 24.0 mmol/L Normal 21.0-32.0 [facility] Comment on above: Order Comment: 'TROP ' Serial specimen #1, #2 or #3: 1 Performed By: #### L 500.2500, L501.4020, L100.0100 #### [facility] [address] [place], [address] Creatinine [Mass/Vol] 0.75 mg/dL Normal 0.55-1.02 [facility] Comment on above: Order Comment: 'TROP ' Serial specimen #1, #2 or #3: 1 Result Comment: The validity of the calculated GFR GFRAA in patients over 70 years has not been determined. Clinical correlation is essential. Performed By: #### L 500.2500, L501.4020, L100.0100 #### [facility] [address] [place], [address] ECRCL 143.71 ml/min Normal [facility] Comment on above: Order Comment: 'TROP ' Serial specimen #1, #2 or #3: 1 Performed By: #### L 500.2500, L501.4020, L100.0100 #### [facility] [address] [place], [address] EST GFR - AA 110 mL/min Normal >60 [facility] Comment on above: Order Comment: 'TROP ' Serial specimen #1, #2 or #3: 1 Result Comment: Afri can Malawian GFR Calc Performed By: #### L 500.2500, L501.4020, L100.0100 #### [facility] [address] [place], [address] GAP 5 Normal 5-15 [facility] Comment on above: Order Comment: 'TROP ' Serial specimen #1, #2 or #3: 1 Performed By: #### L 500.2500, L501.4020, L100.0100 #### [facility] [address] [place], [address] GFR/1.73 sq M.predicted among non-blacks MDRD (S/P/Bld) [Vol rate/Area] 91 mL/min/{1.73_m2} Normal >60 [facility] Comment on above: Order Comment: 'TROP ' Serial specimen #1, #2 or #3: 1 Result Comment: Non- GFR Calc Performed By: #### L 500.2500, L501.4020, L100.0100 #### [facility] [address] [place], [address] Glucose [Mass/Vol] 119 mg/dL High 74-106 [facility] Comment on above: Order Comment: 'TROP ' Serial specimen #1, #2 or #3: 1 Result Comment: Fast ing Glucose result from 100 to 125 mg/dL suggests IMPAIRED HOMEOSTASIS per A.D.A. criteria. Performed By: #### L 500.2500, L501.4020, L100.0100 #### [facility] [address] [place], [address] Potassium [Moles/Vol] 3.6 mmol/L Normal 3.5-5.1 [facility] Comment on above: Order Comment: 'TROP ' Serial specimen #1, #2 or #3: 1 Performed By: #### L 500.2500, L501.4020, L100.0100 #### [facility] [address] [place], [address] Sodium [Moles/Vol] 138 mmol/L Normal 136-145 [facility] Comment on above: Order Comment: 'TROP ' Serial specimen #1, #2 or #3: 1 Performed By: #### L 500.2500, L501.4020, L100.0100 #### [facility] [address] [place], [address] Urea nitrogen [Mass/Vol] 8 mg/dL Normal 7-18 [facility] Comment on above: Order Comment: 'TROP ' Serial specimen #1, #2 or #3: 1 Performed By: #### L 500.2500, L501.4020, L100.0100 #### [facility] [address] [place], [address] CBC W/Diff, Automatedon 07-2 Absolute Lymph 1.22 X10 3/uL Normal 0.83-4.51 [facility] Comment on above: Performed By: #### L 500.2500, L501.4020, L100.0100 #### [facility] [address] [place], [address] Absolute Neut 3.7 X10 3/uL Normal 2.0-7.7 [facility] Comment on above: Performed By: #### L 500.2500, L501.4020, L100.0100 #### [facility] [address] [place], [address] Basophils/100 WBC (Bld) 0.6 % Normal 0-1 [facility] Comment on above: Performed By: #### L 500.2500, L501.4020, L100.0100 #### [facility] [address] [place], [address] Eosinophils/100 WBC (Bld) 0.0 % Normal 0-5 [facility] Comment on above: Performed By: #### L 500.2500, L501.4020, L100.0100 #### [facility] [address] [place], [address] Erythrocyte distribution width (RBC) [Ratio] 12.0 % Normal 11.6-14.6 [facility] Comment on above: Performed By: #### L 500.2500, L501.4020, L100.0100 #### [facility] [address] [place], [address] Hematocrit (Bld) [Volume fraction] 39.6 % Normal 37-47 [facility] Comment on above: Performed By: #### L 500.2500, L501.4020, L100.0100 #### [facility] [address] [place], [address] Hemoglobin (Bld) [Mass/Vol] 13.8 g/dL Normal 12.0-15.0 [facility] Comment on above: Performed By: #### L 500.2500, L501.4020, L100.0100 #### [facility] [address] [place], [address] IG% 0.400 Normal 0.0-0.9 [facility] Comment on above: Result Comment: IG% - Immature Granulocytes (promyelocytes, myelocytes and metamyelocytes) > 1% indicates that a LEFT SHIFT is Present. Performed By: #### L 500.2500, L501.4020, L100.0100 #### [facility] [address] [place], [address] Lymphocytes/100 WBC (Bld) 23.2 % Normal 19-41 [facility] Comment on above: Performed By: #### L 500.2500, L501.4020, L100.0100 #### [facility] [address] [place], [address] MCH (RBC) [Entitic mass] 30.3 pg Normal 27.0-32.0 [facility] Comment on above: Performed By: #### L 500.2500, L501.4020, L100.0100 #### [facility] [address] [place], [address] MCHC (RBC) [Mass/Vol] 34.8 g/dL Normal 32-36 [facility] Comment on above: Performed By: #### L 500.2500, L501.4020, L100.0100 #### [facility] [address] [place], [address] MCV (RBC) [Entitic vol] 87.0 fL Normal 81-99 [facility] Comment on above: Performed By: #### L 500.2500, L501.4020, L100.0100 #### [facility] [address] [place], [address] Monocytes/100 WBC (Bld) 4.8 % Normal 0-10 [facility] Comment on above: Performed By: #### L 500.2500, L501.4020, L100.0100 #### [facility] [address] [place], [address] Neutrophils/100 WBC (Bld) 71.0 % High 47-70 [facility] Comment on above: Performed By: #### L 500.2500, L501.4020, L100.0100 #### [facility] [address] [place], [address] Nucleated RBC (Bld) [#/Vol] 0 10*3/uL Normal 0-5 [facility] Comment on above: Performed By: #### L 500.2500, L501.4020, L100.0100 #### [facility] [address] [place], [address] Platelet mean volume (Bld) [Entitic vol] 9.9 fL Normal 6.2-12.0 [facility] Comment on above: Performed By: #### L 500.2500, L501.4020, L100.0100 #### [facility] [address] [place], [address] Platelets (Bld) [#/Vol] 306 10*3/uL Normal 150-450 [facility] Comment on above: Performed By: #### L 500.2500, L501.4020, L100.0100 #### [facility] [address] [place], [address] RBC (Bld) [#/Vol] 4.55 10*6/uL Normal 4.2-5.4 [facility] Comment on above: Performed By: #### L 500.2500, L501.4020, L100.0100 #### [facility] [address] [place], [address] RDW SD 38.3 fl Normal 35.1-43.9 [facility] Comment on above: Performed By: #### L 500.2500, L501.4020, L100.0100 #### [facility] [address] [place], [address] WBC (Bld) [#/Vol] 5.3 10*3/uL Normal 4.4-11.0 [facility] Comment on above: Performed By: #### L 500.2500, L501.4020, L100.0100 #### [facility] [address] [place], [address] Chest 1 View (Portable)on Chest 1 View (Portable) [facility] Services [address] [place] [address] Chest 1 View (Portable) MR#: [id number] Acct: [id number] Name: JOSSE WAYNE Rep #: [id number] : 1985 F 38 From: Luis A Araujo PCP: Dr. Peter Maya MD Status: REG ER Study: Chest 1 View (Portable) Date of Exam: 10/08/23 Exam# [id number] Ordering Dr: Uday Almaraz DO [id number] EXAM: XR CHEST, 1 VIEW CLINICAL INDICATION: chest pain TECHNIQUE: Frontal view of the chest. COMPARISON: 02.06.23 FINDINGS: LUNGS AND PLEURAL SPACES: Unremarkable. No consolidation or edema. No pneumothorax. No effusion. HEART: Unremarkable. Cardiac silhouette not enlarged. MEDIASTINUM: Central airways and mediastinal contour are unremarkable. BONES/JOINTS: Unremarkable. No acute fracture. SOFT TISSUES: Unremarkable. RAD/Chest 1 View (Portable) IMPRESSION: No radiographic evidence of acute cardiopulmonary disease. Electronically Signed: Luis A Mancia MD at 15:13 EDT , CC: Dr. Peter Maya MD; Dr. Uday Almaraz DO Web Manager: Signed Normal [facility] Department Summary on 10-08-2023 Emergency Department Summary [facility] Medical Records Department [address] [place] [address] Emergency Department Summary 10/08/23 MR#: [id number] Acct: [id number] Name: JOSSE WAYNE Rep #: [id number] : 1985 38 From: Uday Almaraz DO PCP: Dr. Peter Maya MD Status:REG ER Location: ED HPI History of Present Illness Chief Complaint: Chest Pain Narrative Narrative: 38-year-old female presenting with anxiety. She has been having repeated anxiety attacks throughout the morning. Started at midnight. She states she has burning in her chest. Patient does not have any cardiac history. She does not have a cough, fever, chills. She states she does get sweaty at times. She has a history of anxiety and depression. She is not suicidal or homicidal today. Patient stating that she is concerned she might have a UTI as well. [facility] Medical History Suicide attempt Sinus tachycardia seen on desk monitor Intentional overdose of nonsteroidal anti-inflammatory drug (NSAID) Intentional aspirin overdose Depression with suicidal ideation Personality, multiple Epilepsy PTSD (post-traumatic stress disorder) Anxiety and depression Home Medications ???Medication ???Instructions ???Recorded ???Last Taken ???Type biotin 5,000 mcg disintegrating 1 tab PO DAILY mouth care 09/06/17 09/21/23 History tablet cholecalciferol (vitamin D3) 25 2,000 unit PO DAILY supplement 09/05/18 09/22/23 History mcg (1,000 unit) tablet alprazolam 2 mg tablet (Xanax) 2 mg PO BID anxiety 07/28/20 09/22/23 History alprazolam 1 mg tablet (Xanax) 1 mg PO QHS anxiety 10/18/21 09/21/23 History citalopram 20 mg tablet (Celexa) 20 mg PO DAILY depression 10/18/21 09/22/23 History citalopram 10 mg tablet 10 mg PO Q24H DEPRESSION 02/06/23 09/22/23 History levetiracetam 1,000 mg tablet 1,000 mg PO BID SEIZURES 02/06/23 09/22/23 History Allergy/AdvReac Type Severity Reaction Status Date / Time phenobarbital Allergy Unknown Verified 10/08/23 14:07 propranolol Allergy Rash Verified 10/08/23 14:07 hydralazine AdvReac Mild confusion Verified 10/08/23 14:07 Family History Mother Heart disease Surgical History H/O dilation and curettage History of hysteroscopy partial labotomy Social History Smoking Status: Never smoker alcohol intake: current details: social substance use type: does not use caffeine: Yes what type of physical activity do you participate in: none seatbelt use: always do you feel safe at home: No additional social history: single-unemployed ROS ROS ED Constitutional Constitutional ED: Denies chills, fever(s) or sweats Eyes Eyes: Denies blurry vision or change in vision ENT ENT ED: Denies ear pain or sore throat Cardiovascular Cardiovascular: Reports as per HPI; Denies chest pain, palpitations or racing heartbeat Respiratory/Chest Respiratory/Chest: Denies cough, dyspnea or sputum Gastrointestinal Gastrointestinal: Denies abdominal pain, constipation, diarrhea, nausea or vomiting Genitourinary Genitourinary ED: Reports dysuria; Denies hematuria or urinary frequency Musculoskeletal Musculoskeletal: Denies arthralgias, myalgias or neck pain Integumentary Denies abscess, Abrasions or rash Neurologic Neurologic: Denies headache(s), paresthesias or weakness Psychiatric Psychiatric: Denies anxiety, depression, suicidal ideation or suicidal thoughts Endocrine Endocrinology: Denies polydipsia or polyuria EXAM Physical Exam Const Vital Signs: 10/08/23 14:07 10/08/23 14:38 10/08/23 14:38 Temperature 98.2 F Temperature Source Temporal Pulse Rate 84 Respiratory Rate 17 Respiratory Effort Normal Non-Labored Blood Pressure 146/107 H Blood Pressure Mean 120 Pulse Ox 100 Oxygen Delivery Method Room Air Room Air 10/08/23 15:27 Temperature Temperature Source Pulse Rate 77 Respiratory Rate 18 Respiratory Effort Blood Pressure 151/81 H Blood Pressure Mean 104 Pulse Ox 97 Oxygen Delivery Method Room Air Positive well nourished General Appearance ED: NAD HEENT Reports moist mucous membranes normocephalic Eyes PERRL and EOMs intact bilaterally Chest Wall inspection of chest normal Resp normal respiratory effort and clear to auscultation bilaterally Auscultation: Negative for rales, rhonchi or wheezes Cardio regular rate and regular rhythm GI normal to inspection, nondistended, normoactive bowel sounds Neuro oriented x3 and CN's II-XII intact bilaterally Sensorium / Orientation: awake and alert Psych mental status grossly mya (more content not included)... Normal [facility] L501.4020on 10-08-2023 TROPONIN-I HS 5 pg/mL Normal 3.0-54.0 [facility] Comment on above: Order Comment: 'TROP ' Serial specimen #1, #2 or #3: 1 Result Comment: Shanae garcía Note: New Test Units and Gender Specific Reference Ranges. For more information see Policy Stat Procedure Alpine High Sensitivity Troponin (TNIH) and attachments. Performed By: #### L 500.2500, L501.4020, L100.0100 #### [facility] [address] [place], [address] Urinalysis, Completeon 10-07 EPI,SQUAMOUS 0-5 SEEN Normal 5-10 [facility] Comment on above: Order Comment: MARICARMEN CTOR TO SPECIFY Performed By: #### L 400.0001 #### [facility] [address] [place], [address] RBC 5-10 SEEN Normal 0-5 [facility] Comment on above: Order Comment: MARICARMEN CTOR TO SPECIFY Performed By: #### L 400.0001 #### [facility] [address] [place], [address] BACTERIA 0 SEEN Normal None Seen [facility] Comment on above: Order Comment: MARICARMEN CTOR TO SPECIFY Performed By: #### L 400.0001 #### [facility] [address] [place], [address] Mucus Ql (Urine sed) 0 SEEN Normal [facility] Comment on above: Order Comment: MARICARMEN CTOR TO SPECIFY Performed By: #### L 400.0001 #### [facility] [address] [place], [address] WBC 0 SEEN Normal 0-5 [facility] Comment on above: Order Comment: COLLE CTOR TO SPECIFY Performed By: #### L 400.0001 #### [facility] [address] [place], [address] [facility] -- JOSSE WAYNE ([id number]) 1985 F Date Time Provider Department 09/27/23 ANTHONY GARVIN V [facility] During your visit today, we recorded the following information about you: Luma (Pharmacy Ira)Pravin 09/27/2023 3:25 PM Signed === PHARMACY TEAM ==== ADDITIONAL INFORMATION NEEDED/REQUESTED Case Submitted: No Request Type: Provider Date of Service: [facility] Additional Information Needed: per payer policy pt must have trail/failure of the following: Pt/hep Nsiads, And CSI. Please advise if pt has completed the above. Thank you. Request from Payor by: N/A Email Sent to: ANTHONY GARVIN V Requested Clinicals/Information Sent: N/A Allergies As of Date: 09/27/2023 Noted Allergy Reaction ATARAX (HYDROXYZINE) 04/26/2023 1 - Mental Status Change Comments: Causes mental changes PHENOBARBITAL 09/12/2006 2 - Rash PROPRANOLOL 08/20/2022 2 - Rash Date Reviewed: 08/25/2023 Reviewed by: Makeda Blakely MA - Fully Assessed Reason for Visit: Insurance Authorization [[id number]] Prescriptions as of 09/27/2023 - benzonatate (TESSALON [...] [F32.A] 03/02/2022 Encounter Status:Closed by LUMA (PHARMACY SUPPLY CHAIN PROJECT MANAGER), PRAVIN HILTON on 09/27/23 Normal [facility] Acetaminophen (Tylenol) Cameron gonzalez 09-23-2023 Acetaminophen [Mass/Vol] ug/mL Low 10.0-30.0 [facility] Comment on above: Performed By: #### L 400.0001 #### [facility] [address] [place], [address] CBC W/Diff, Automatedon 09-10 Absolute Lymph 1.45 X10 3/uL Normal 0.83-4.51 [facility] Comment on above: Performed By: #### L 500.4050, L100.0100 #### [facility] [address] [place], [address] Absolute Neut 7.5 X10 3/uL Normal 2.0-7.7 [facility] Comment on above: Performed By: #### L 500.4050, L100.0100 #### [facility] [address] [place], [address] Basophils/100 WBC (Bld) 0.6 % Normal 0-1 [facility] Comment on above: Performed By: #### L 500.4050, L100.0100 #### [facility] [address] [place], [address] Eosinophils/100 WBC (Bld) 1.2 % Normal 0-5 [facility] Comment on above: Performed By: #### L 500.4050, L100.0100 #### [facility] [address] [place], [address] Erythrocyte distribution width (RBC) [Ratio] 12.7 % Normal 11.6-14.6 [facility] Comment on above: Performed By: #### L 500.4050, L100.0100 #### [facility] [address] [place], [address] Hematocrit (Bld) [Volume fraction] 39.3 % Normal 37-47 [facility] Comment on above: Performed By: #### L 500.4050, L100.0100 #### [facility] [address] [place], [address] Hemoglobin (Bld) [Mass/Vol] 13.2 g/dL Normal 12.0-15.0 [facility] Comment on above: Performed By: #### L 500.4050, L100.0100 #### [facility] [address] [place], [address] IG% 0.500 Normal 0.0-0.9 [facility] Comment on above: Result Comment: IG% - Immature Granulocytes (promyelocytes, myelocytes and metamyelocytes) > 1% indicates that a LEFT SHIFT is Present. Performed By: #### L 500.4050, L100.0100 #### [facility] [address] [place], [address] Lymphocytes/100 WBC (Bld) 14.4 % Low 19-41 [facility] Comment on above: Performed By: #### L 500.4050, L100.0100 #### [facility] [address] [place], [address] MCH (RBC) [Entitic mass] 29.9 pg Normal 27.0-32.0 [facility] Comment on above: Performed By: #### L 500.4050, L100.0100 #### [facility] [address] [place], [address] MCHC (RBC) [Mass/Vol] 33.6 g/dL Normal 32-36 [facility] Comment on above: Performed By: #### L 500.4050, L100.0100 #### [facility] [address] [place], [address] MCV (RBC) [Entitic vol] 89.1 fL Normal 81-99 [facility] Comment on above: Performed By: #### L 500.4050, L100.0100 #### [facility] [address] [place], [address] Monocytes/100 WBC (Bld) 8.6 % Normal 0-10 [facility] Comment on above: Performed By: #### L 500.4050, L100.0100 #### [facility] [address] [place], [address] Neutrophils/100 WBC (Bld) 74.7 % High 47-70 [facility] Comment on above: Performed By: #### L 500.4050, L100.0100 #### [facility] [address] [place], [address] Nucleated RBC (Bld) [#/Vol] 0 10*3/uL Normal 0-5 [facility] Comment on above: Performed By: #### L 500.4050, L100.0100 #### [facility] [address] [place], [address] Platelet mean volume (Bld) [Entitic vol] 9.9 fL Normal 6.2-12.0 [facility] Comment on above: Performed By: #### L 500.4050, L100.0100 #### [facility] [address] [place], [address] Platelets (Bld) [#/Vol] 260 10*3/uL Normal 150-450 [facility] Comment on above: Performed By: #### L 500.4050, L100.0100 #### [facility] [address] [place], [address] RBC (Bld) [#/Vol] 4.41 10*6/uL Normal 4.2-5.4 [facility] Comment on above: Performed By: #### L 500.4050, L100.0100 #### [facility] [address] [place], [address] RDW SD 41.5 fl Normal 35.1-43.9 [facility] Comment on above: Performed By: #### L 500.4050, L100.0100 #### [facility] [address] [place], [address] WBC (Bld) [#/Vol] 10.0 10*3/uL Normal 4.4-11.0 [facility] Comment on above: Performed By: #### L 500.4050, L100.0100 #### [facility] [address] [place], [address] Comprehensive Metabolic Prof vaon 09-23-2023 Albumin [Mass/Vol] 3.3 g/dL Normal 3.2-5.0 [facility] Comment on above: Performed By: #### L 500.4050, L100.0100 #### [facility] [address] [place], [address] Albumin/Globulin [Mass ratio] 1.1 {ratio} Normal 0.9-2.4 [facility] Comment on above: Performed By: #### L 500.4050, L100.0100 #### [facility] [address] [place], [address] ALK P 65 U/L Normal 45-117 [facility] Comment on above: Performed By: #### L 500.4050, L100.0100 #### [facility] [address] [place], [address] ALT [Catalytic activity/Vol] 61 U/L High 13-56 [facility] Comment on above: Performed By: #### L 500.4050, L100.0100 #### [facility] [address] [place], [address] AST [Catalytic activity/Vol] 41 U/L High 15-37 [facility] Comment on above: Result Comment: Slig ht Hemolysis, Result may be falsely increased. Performed By: #### L 500.4050, L100.0100 #### [facility] [address] [place], [address] Bilirubin [Mass/Vol] 0.90 mg/dL Normal 0.20-1.00 [facility] Comment on above: Result Comment: For patients on eltrombopag therapy, use of Dimension Alpine TBIL is not recommended. Performed By: #### L 500.4050, L100.0100 #### [facility] [address] [place], [address] BUN/CRE 17.2 RATIO Normal 10-20 [facility] Comment on above: Performed By: #### L 500.4050, L100.0100 #### [facility] [address] [place], [address] CA,Total 8.7 mg/dL Normal 8.5-10.1 [facility] Comment on above: Performed By: #### L 500.4050, L100.0100 #### [facility] [address] [place], [address] Chloride [Moles/Vol] 107 mmol/L Normal 98-107 [facility] Comment on above: Performed By: #### L 500.4050, L100.0100 #### [facility] [address] [place], [address] CO2 [Moles/Vol] 22.0 mmol/L Normal 21.0-32.0 [facility] Comment on above: Performed By: #### L 500.4050, L100.0100 #### [facility] [address] [place], [address] Creatinine [Mass/Vol] 0.99 mg/dL Normal 0.55-1.02 [facility] Comment on above: Result Comment: The validity of the calculated GFR GFRAA in patients over 70 years has not been determined. Clinical correlation is essential. Performed By: #### L 500.4050, L100.0100 #### [facility] [address] [place], [address] ECRCL 109.30 ml/min Normal [facility] Comment on above: Performed By: #### L 500.4050, L100.0100 #### [facility] [address] [place], [address] EST GFR - AA 80 mL/min Normal >60 [facility] Comment on above: Result Comment: Afri can Malawian GFR Calc Performed By: #### L 500.4050, L100.0100 #### [facility] [address] [place], [address] GAP 9 Normal 5-15 [facility] Comment on above: Performed By: #### L 500.4050, L100.0100 #### [facility] [address] [place], [address] GFR/1.73 sq M.predicted among non-blacks MDRD (S/P/Bld) [Vol rate/Area] 66 mL/min/{1.73_m2} Normal >60 [facility] Comment on above: Result Comment: Non- GFR Calc Performed By: #### L 500.4050, L100.0100 #### [facility] [address] [place], [address] Globulin (S) [Mass/Vol] 3.1 g/dL Normal 2.2-4.2 [facility] Comment on above: Performed By: #### L 500.4050, L100.0100 #### [facility] [address] [place], [address] Glucose [Mass/Vol] 118 mg/dL High 74-106 [facility] Comment on above: Result Comment: Fast ing Glucose result from 100 to 125 mg/dL suggests IMPAIRED HOMEOSTASIS per A.D.A. criteria. Performed By: #### L 500.4050, L100.0100 #### [facility] [address] [place], [address] Potassium [Moles/Vol] 3.8 mmol/L Normal 3.5-5.1 [facility] Comment on above: Result Comment: Slig ht Hemolysis, Result may be falsely increased. Performed By: #### L 500.4050, L100.0100 #### [facility] [address] [place], [address] Sodium [Moles/Vol] 138 mmol/L Normal 136-145 [facility] Comment on above: Performed By: #### L 500.4050, L100.0100 #### [facility] [address] [place], [address] T PROT 6.4 g/dL Normal 6.4-8.2 [facility] Comment on above: Performed By: #### L 500.4050, L100.0100 #### [facility] [address] [place], [address] Urea nitrogen [Mass/Vol] 17 mg/dL Normal 7-18 [facility] Comment on above: Performed By: #### L 500.4050, L100.0100 #### [facility] [address] [place], [address] Salicylateon 09-23-2023 SALICYLATE < 1.7 Low 2.8-20.0 [facility] Comment on above: Performed By: #### L 400.0001 #### [facility] [address] [place], [address] 12 Lead EKGon 09-22-2023 12 Lead EKG [facility] Cardiovascular Services [address] [place] [address] 12 Lead EKG 09/22/23 1608 MR#: [id number] Acct: [id number] Name: JOSSE WAYNE Rep #: [id number] : 1985 38 From: Tonio Bowden MD Attending Dr: Dr. Jones Toscano DO Status: D IS IN Ordering Dr: Sabas Patel MD Date: 09/22/23 Location: [facility] Sex: F C Admitted: 09/22/23 Test Reason : Blood Pressure : / mmHG Vent. Rate : 109 BPM Atrial Rate : 109 BPM P-R Int : 164 ms QRS Dur : 092 ms QT Int : 342 ms P-R-T Axes : 031 028 033 degrees QTc Int : 460 ms Sinus tachycardia Otherwise normal ECG Confirmed by CRISTINO ARCE, VINEET ([id number]), assistant production editor MILY SHAH ([id number]) on 09/27/2023 10:48:20 AM Referred By: Confirmed By:RUBÉN BOWDEN MD 09/27/23 1048 Date Tonio Bowden MD CC: Dr. Peter Maya MD; Dr. Jones Toscano DO; Dr. Sabas Patel MD Signed Normal [facility] Acetaminophen (Tylenol) Leve gonzalez 09-22-2023 Acetaminophen [Mass/Vol] ug/mL Low 10.0-30.0 [facility] Comment on above: Performed By: #### L 9000.0810 #### [facility] [address] [place], [place], [id number] Alcohol, Blood (Medical)-Ser umon 09-22-2023 SERUM ETOH < 3.[address] [facility] Comment on above: Result Comment: The serum:whole blood ethanol ratio is approximately 1.14 and varies slightly with hematocrit. Medical Alcohol reference interval and critical value in non-tolerant individuals; 50 - 100 Impairment 100 Intoxication 100 - 250 Severe Poisoning 250 - 400 Deep/possible fatal coma Performed By: #### L 9000.0810 #### [facility] [address] [place], [address] CBC W/Diff, Automatedon 07-1 -2023 Absolute Lymph 1.77 X10 3/uL Normal 0.83-4.51 [facility] Comment on above: Performed By: #### L 505.5000, L501.8300, L501.9100, L501.8400, L500.4050, L700.6800, L100.0100 #### [facility] [address] [place], [address] Absolute Neut 8.0 X10 3/uL High 2.0-7.7 [facility] Comment on above: Performed By: #### L 505.5000, L501.8300, L501.9100, L501.8400, L500.4050, L700.6800, L100.0100 #### [facility] [address] [place], [address] Basophils/100 WBC (Bld) 0.5 % Normal 0-1 [facility] Comment on above: Performed By: #### L 505.5000, L501.8300, L501.9100, L501.8400, L500.4050, L700.6800, L100.0100 #### [facility] [address] [place], [address] Eosinophils/100 WBC (Bld) 0.4 % Normal 0-5 [facility] Comment on above: Performed By: #### L 505.5000, L501.8300, L501.9100, L501.8400, L500.4050, L700.6800, L100.0100 #### [facility] [address] [place], [address] Erythrocyte distribution width (RBC) [Ratio] 12.4 % Normal 11.6-14.6 [facility] Comment on above: Performed By: #### L 505.5000, L501.8300, L501.9100, L501.8400, L500.4050, L700.6800, L100.0100 #### [facility] [address] [facility] [place], [address] Hematocrit (Bld) [Volume fraction] 39.3 % Normal 37-47 [facility] Comment on above: Performed By: #### L 505.5000, L501.8300, L501.9100, L501.8400, L500.4050, L700.6800, L100.0100 #### [facility] [address] [place], [address] Hemoglobin (Bld) [Mass/Vol] 13.7 g/dL Normal 12.0-15.0 [facility] Comment on above: Performed By: #### L 505.5000, L501.8300, L501.9100, L501.8400, L500.4050, L700.6800, L100.0100 #### [facility] [address] [place], [address] IG% 0.600 Normal 0.0-0.9 [facility] Comment on above: Result Comment: IG% - Immature Granulocytes (promyelocytes, myelocytes and metamyelocytes) > 1% indicates that a LEFT SHIFT is Present. Performed By: #### L 505.5000, L501.8300, L501.9100, L501.8400, L500.4050, L700.6800, L100.0100 #### [facility] [address] [place], [address] Lymphocytes/100 WBC (Bld) 16.7 % Low 19-41 [facility] Comment on above: Performed By: #### L 505.5000, L501.8300, L501.9100, L501.8400, L500.4050, L700.6800, L100.0100 #### [facility] [address] [place], [address] MCH (RBC) [Entitic mass] 29.8 pg Normal 27.0-32.0 [facility] Comment on above: Performed By: #### L 505.5000, L501.8300, L501.9100, L501.8400, L500.4050, L700.6800, L100.0100 #### [facility] [address] [place], [address] MCHC (RBC) [Mass/Vol] 34.9 g/dL Normal 32-36 [facility] Comment on above: Performed By: #### L 505.5000, L501.8300, L501.9100, L501.8400, L500.4050, L700.6800, L100.0100 #### [facility] [address] [place], [address] MCV (RBC) [Entitic vol] 85.6 fL Normal 81-99 [facility] Comment on above: Performed By: #### L 505.5000, L501.8300, L501.9100, L501.8400, L500.4050, L700.6800, L100.0100 #### [facility] [address] [place], [address] Monocytes/100 WBC (Bld) 6.4 % Normal 0-10 [facility] Comment on above: Performed By: #### L 505.5000, L501.8300, L501.9100, L501.8400, L500.4050, L700.6800, L100.0100 #### [facility] [address] [place], [address] Neutrophils/100 WBC (Bld) 75.4 % High 47-70 [facility] Comment on above: Performed By: #### L 505.5000, L501.8300, L501.9100, L501.8400, L500.4050, L700.6800, L100.0100 #### [facility] [address] [place], [address] Nucleated RBC (Bld) [#/Vol] 0 10*3/uL Normal 0-5 [facility] Comment on above: Performed By: #### L 505.5000, L501.8300, L501.9100, L501.8400, L500.4050, L700.6800, L100.0100 #### [facility] [address] [place], [address] Platelet mean volume (Bld) [Entitic vol] 10.0 fL Normal 6.2-12.0 [facility] Comment on above: Performed By: #### L 505.5000, L501.8300, L501.9100, L501.8400, L500.4050, L700.6800, L100.0100 #### [facility] [address] [place], [address] Platelets (Bld) [#/Vol] 300 10*3/uL Normal 150-450 [facility] Comment on above: Performed By: #### L 505.5000, L501.8300, L501.9100, L501.8400, L500.4050, L700.6800, L100.0100 #### [facility] [address] [place], [address] RBC (Bld) [#/Vol] 4.59 10*6/uL Normal 4.2-5.4 [facility] Comment on above: Performed By: #### L 505.5000, L501.8300, L501.9100, L501.8400, L500.4050, L700.6800, L100.0100 #### [facility] [address] [place], [address] RDW SD 38.2 fl Normal 35.1-43.9 [facility] Comment on above: Performed By: #### L 505.5000, L501.8300, L501.9100, L501.8400, L500.4050, L700.6800, L100.0100 #### [facility] [address] [place], [address] WBC (Bld) [#/Vol] 10.6 10*3/uL Normal 4.4-11.0 [facility] Comment on above: Performed By: #### L 505.5000, L501.8300, L501.9100, L501.8400, L500.4050, L700.6800, L100.0100 #### [facility] [address] [place], [address] Comprehensive Metabolic Prof vaon 09-22-2023 Albumin [Mass/Vol] 4.0 g/dL Normal 3.2-5.0 [facility] Comment on above: Performed By: #### L 9000.0810 #### [facility] [address] [place], [address] Albumin/Globulin [Mass ratio] 1.2 {ratio} Normal 0.9-2.4 [facility] Comment on above: Performed By: #### L 9000.0810 #### [facility] [address] [place], [address] ALK P 76 U/L Normal 45-117 [facility] Comment on above: Performed By: #### L 9000.0810 #### [facility] [address] [place], [address] ALT [Catalytic activity/Vol] 77 U/L High 13-56 [facility] Comment on above: Performed By: #### L 9000.0810 #### [facility] [address] [place], [address] AST [Catalytic activity/Vol] 57 U/L High 15-37 [facility] Comment on above: Performed By: #### L 9000.0810 #### [facility] [address] [place], [address] Bilirubin [Mass/Vol] 1.20 mg/dL High 0.20-1.00 [facility] Comment on above: Result Comment: For patients on eltrombopag therapy, use of Dimension Alpine TBIL is not recommended. Performed By: #### L 9000.0810 #### [facility] [address] [place], [address] BUN/CRE 15.6 RATIO Normal 10-20 [facility] Comment on above: Performed By: #### L 9000.0810 #### [facility] [address] [place], [address] CA,Total 9.3 mg/dL Normal 8.5-10.1 [facility] Comment on above: Performed By: #### L 9000.0810 #### [facility] [address] [place], [address] Chloride [Moles/Vol] 106 mmol/L Normal 98-107 [facility] Comment on above: Performed By: #### L 9000.0810 #### [facility] [address] [place], [address] CO2 [Moles/Vol] 19.0 mmol/L Low 21.0-32.0 [facility] Comment on above: Performed By: #### L 9000.0810 #### [facility] [address] [place], [address] Creatinine [Mass/Vol] 0.96 mg/dL Normal 0.55-1.02 [facility] Comment on above: Result Comment: The validity of the calculated GFR GFRAA in patients over 70 years has not been determined. Clinical correlation is essential. Performed By: #### L 9000.0810 #### [facility] [address] [place], [address] ECRCL 117.83 ml/min Normal [facility] Comment on above: Performed By: #### L 9000.0810 #### [facility] [address] [place], [address] EST GFR - AA 82 mL/min Normal >60 [facility] Comment on above: Result Comment: Afri can [place] GFR Calc Performed By: #### L 9000.0810 #### [facility] [address] [place], [address] GAP 11 Normal 5-15 [facility] Comment on above: Performed By: #### L 9000.0810 #### [facility] [address] [place], [address] GFR/1.73 sq M.predicted among non-blacks MDRD (S/P/Bld) [Vol rate/Area] 68 mL/min/{1.73_m2} Normal >60 [facility] Comment on above: Result Comment: Non- GFR Calc Performed By: #### L 9000.0810 #### [facility] [address] [place], [address] Globulin (S) [Mass/Vol] 3.4 g/dL Normal 2.2-4.2 [facility] Comment on above: Performed By: #### L 9000.0810 #### [facility] [address] [place], [address] Glucose [Mass/Vol] 118 mg/dL High 74-106 [facility] Comment on above: Result Comment: Fast ing Glucose result from 100 to 125 mg/dL suggests IMPAIRED HOMEOSTASIS per A.D.A. criteria. Performed By: #### L 9000.0810 #### [facility] [address] [place], [address] Potassium [Moles/Vol] 3.4 mmol/L Low 3.5-5.1 [facility] Comment on above: Performed By: #### L 9000.0810 #### [facility] [address] [place], [address] Sodium [Moles/Vol] 136 mmol/L Normal 136-145 [facility] Comment on above: Performed By: #### L 9000.0810 #### [facility] [address] [facility] [address] T PROT 7.4 g/dL Normal 6.4-8.2 [facility] Comment on above: Performed By: #### L 9000.0810 #### [facility] [address] [place], [address] Urea nitrogen [Mass/Vol] 15 mg/dL Normal 7-18 [facility] Comment on above: Performed By: #### L 9000.0810 #### [facility] [address] [place], [address] Emergency Department Summary on 09-22-2023 Emergency Department Summary [facility] Medical Records Department [address] [place] [address] Emergency Department Summary 09/22/23 MR#: [id number] Acct: [id number] Name: JOSSE WAYNE Rep #: [id number] : 1985 38 From: Sabas Patel MD PCP: Dr. Peter Maya MD Status:REG ER Location: ED HPI HPI - Psych History of Present Illness Chief Complaint: Overdose Detail of Chief Complaint: Intentional overdose of ibuprofen, naproxen/Aleve and aspirin Informant: patient Onset/Context/Timing Onset: Today (Took these pills at approximately 11 AM today) Context: Sudden Onset Conflict: - (States she wanted to go to sleep and not wake up) Timing: Continuous Current Severity: Moderate Maximum Severity: Severe Worsened by: Situational factors and Alcohol intoxication Relieved by: Nothing Associated Symptoms Associated Symptoms - Psych: Positive for Depressed, Change in Eating, Change in sleeping, Decreased Interest and Suicidal Thoughts; Negative for Hopelessness, Easily distracted, Grandiosity, Flight of Ideas, Increased activity, Pressured Speech, Agitated, Angry, Hostile, Threatening, Confusion, Paranoia, Visual Hallucinations or Auditory Hallucinations Specific plan (suicidal thought): Patient intentionally overdosed 30 ibuprofen tablets, 90+ naproxen tablets Narrative Narrative: Patient is a 38-year-old female. She has history of anxiety/depression as well as bipolar affective disorder. She was seen February 06, 2023 for anxiety. She was seen August 2022 with intent of harming herself. After she was evaluated by crisis it was felt that she could be sent home with a safety plan.Patient was seen in October 2021 for anxiety. She had suicide attempt October 2021 approximately 3 weeks prior to the anxiety visit. Prior similar symptoms: Yes Recent Illness/Hospitalization: No PFSH PFS Medical History Personality, multiple Epilepsy PTSD (post-traumatic stress disorder) Anxiety and depression Home Medications ???Medication ???Instructions ???Recorded ???Last Taken ???Type biotin 5,000 mcg disintegrating 1 tab PO DAILY mouth care 09/06/17 Unknown History tablet ferrous sulfate 325 mg (65 mg 1 tab PO DAILY supplement 09/06/17 Unknown History iron) tablet cholecalciferol (vitamin D3) 25 2,000 unit PO DAILY supplement 09/05/18 Unknown History mcg (1,000 unit) tablet alprazolam 2 mg tablet (Xanax) 2 mg PO BID 07/28/20 Unknown History alprazolam 1 mg tablet (Xanax) 1 mg PO QHS 10/18/21 Unknown History citalopram 20 mg tablet (Celexa) 30 mg PO DAILY 10/18/21 Unknown History citalopram 10 mg tablet 10 mg PO Q24H DEPRESSION 02/06/23 Unknown History levetiracetam 1,000 mg tablet 1,000 mg PO BID SEIZURES 02/06/23 Unknown History nystatin 100,000 unit/gram topical 1 applic topical DAILY RASH 02/06/23 Unknown History cream Allergy/AdvReac Type Severity Reaction Status Date / Time phenobarbital Allergy Unknown Verified 09/22/23 15:48 propranolol Allergy Rash Verified 09/22/23 15:48 Family History Mother Heart disease Surgical History H/O dilation and curettage History of hysteroscopy partial labotomy Social History Smoking Status: Never smoker alcohol intake: current details: social substance use type: does not use caffeine: Yes what type of physical activity do you participate in: none seatbelt use: always do you feel safe at home: No additional social history: single-unemployed ROS ROS ED Constitutional Constitutional ED: Reports sweats; Denies chills, fever(s) or subjective Eyes Eyes: Denies blurry vision or change in vision ENT ENT ED: Reports other Details: Patient does endorse ringing or ears. ; Denies ear pain, rhinorrhea or sore throat Cardiovascular Cardiovascular: Reports chest pain and racing heartbeat; Denies palpitations Respiratory/Chest Respiratory/Chest: Denies cough, dyspnea or dyspnea on exertion Gastrointestinal Gastrointestinal: Reports nausea; Denies abdominal pain, constipation, diarrhea, melena or vomiting Genitourinary Genitourinary ED: Reports LMP (females 10-50) Details: Comment: (Presently); Denies dysuria, hematuria or urinary frequency Musculoskeletal Musculoskeletal: Denies arthralgias, back pain or myalgias Integumentary Denies rash Neurologic Neurologic: Reports paresthesias; Denies headache(s) or weakness Psychiatric Psychiatric: Reports anxiety, depression, suicidal ideation and suicidal thoughts Hematologic/Lymphatic Hematologic/Lymphatic: Denies easy bleeding or easy bruising Allergic/Immunologic Allergic/Immunologic ED: Denies mouth swelling or tongue swelling EXAM Physical Exam Co (more content not included)... Normal [facility] H AND P Exam - Hospitaliston 09-22-2023 H&P Exam - Hospitalist [facility] Medical Records Department [address] [place] [address] H P Exam - Hospitalist 09/22/23 1722 MR#: [id number] Acct: [id number] Name: JOSSE WAYNE Rep #: [id number] : 1985 38 From: Bon Griffith MD PCP: Dr. Peter Maya MD Status:ADM IN [id number] HPI - General General Date of Admission: 09/22/23 Date of Service: 09/22/23 Chief Complaint: Drug overdose multiple medications. HPI Narrative JOSSE WAYNE, is a 38 F who has history of severe depression with multiple suicidal attempts in the past and hospitalization even on life support came to ER after she took multiple medications. She does not know the exact amount but estimated that she took aspirin 325 mg about 100 tablets, Motrin about 40 tablets, Aleve 150 tablets. She took these pills around 11 AM today. She said she she is very depressed and she took it as suicidal attempt wanted to go to sleep and not wake up. Patient is complaining of tinnitus mainly right ear but no nausea vomiting chest pain shortness of breath or blurry vision. Prior to that she had multiple ED visits, as seen on 04/08/2022 for anxiety. August 2022???she had intent of harming herself. She was admitted in November 2019 for overdose with amitriptyline. She further said she had 15-20 suicidal attempts in the past. She was on life support 6-10 times between 2015 and 2022. She also has a history of personality disorder, epilepsy, PTSD, bipolar disorder with depression, schizoaffective disorder. She had right temporal lobectomy [facility] for seizure and she takes Keppra and alprazolam. She said she she takes aripiprazole but is not showing in her home medication. Patient was given charcoal in the ED. Patient is pink slipped Vitals, labs and EKG reviewed discussion assessment and plan. [facility] Medical History Personality, multiple Epilepsy PTSD (post-traumatic stress disorder) Anxiety and depression Home Medications ???Medication ???Instructions ???Recorded ???Last Taken ???Type biotin 5,000 mcg disintegrating 1 tab PO DAILY mouth care 09/06/17 Unknown History tablet cholecalciferol (vitamin D3) 25 2,000 unit PO DAILY supplement 09/05/18 Unknown History mcg (1,000 unit) tablet alprazolam 2 mg tablet (Xanax) 2 mg PO BID anxiety 07/28/20 Unknown History alprazolam 1 mg tablet (Xanax) 1 mg PO QHS anxiety 10/18/21 Unknown History citalopram 20 mg tablet (Celexa) 20 mg PO DAILY depression 10/18/21 Unknown History citalopram 10 mg tablet 10 mg PO Q24H DEPRESSION 02/06/23 Unknown History levetiracetam 1,000 mg tablet 1,000 mg PO BID SEIZURES 02/06/23 Unknown History Allergy/AdvReac Type Severity Reaction Status Date / Time phenobarbital Allergy Unknown Verified 09/22/23 18:09 propranolol Allergy Rash Verified 09/22/23 18:09 hydralazine AdvReac Mild confusion Verified 09/22/23 18:09 Family History Mother Heart disease Surgical History H/O dilation and curettage History of hysteroscopy partial labotomy Social History Smoking Status: Never smoker alcohol intake: current details: social substance use type: does not use caffeine: Yes what type of physical activity do you participate in: none seatbelt use: always do you feel safe at home: No additional social history: single-unemployed ROS ROS Narrative Constitutional: Depressed lobe. Reports fatigue and weakness. No fever. HEENT: Reports systems reviewed and no addt'l complaints, except as documented Respiratory/Chest: No acute shortness of breath or respiratory distress or wheezing. CVS: No chest pain pressure or tightness Gastrointestinal: Denies coffee ground emesis, hematemesis or vomiting Genitourinary: Denies burning urination or new urinary tract symptoms Musculoskeletal: Denies acute joint pain or limited range of motion. No acute injury Neurologic: Denies seizure-like symptoms. Last seizure was in 2013. skin: No ulcer. No rash Endocrinology: Reports systems reviewed and no addt'l complaints, except as documented Hematologic/Lymphatic: Reports systems reviewed and no addt'l complaints, except as documented Rest 14 ROS are negative except as mentioned in HPI Vital Signs Vital Signs Vital Signs: 09/22/23 15:44 09/22/23 16:55 09/22/23 17:00 Temperature 97.7 F L Temperature Source Temporal Pulse Rate 126 H 113 H 113 H Respiratory Rate 16 17 22 H Blood Pressure 152/99 H 138/84 H 131/73 H Blood Pressure Mean 116 99 90 Pulse Ox 96 94 94 Oxygen Delivery Method Room Air Weight Weight: 347 lb 3.2 oz Body Mass Index (BMI) 59.5 Physical Exa (more content not included)... Normal [facility] ,Serum,hCG Quali.on 09-22-2023 HCG, SERUM QUAL Negative Normal [facility] Comment on above: Performed By: #### L 9000.0810 #### [facility] [address] [place], [address] Prothrombin Time w/INRon INR Coag (PPP) [Relative time] 1.2 {INR} Normal [facility] Comment on above: Performed By: #### L 500.2500, L501.4020, L100.0100 #### [facility] [address] [place], [address] PT Coag (PPP) [Time] 15.6 s High 11.7-14.9 [facility] Comment on above: Performed By: #### L 500.2500, L501.4020, L100.0100 #### [facility] [address] [place], [address] Salicylateon 09-22-2023 SALICYLATE < 1.7 Low 2.8-20.0 [facility] Comment on above: Performed By: #### L 9000.0810 #### [facility] [address] [place], [address] Urine Drug Screen (VISTA)on 09-22-2023 AMPHETAMINES Negative Normal <1000 ng/mL [facility] Comment on above: Performed By: #### L 505.5000, L501.8300, L501.9100, L501.8400, L500.4050, L700.6800, L100.0100 #### [facility] [address] [place], [address] BARBITIURATES Negative Normal < 200 ng/mL [facility] Comment on above: Performed By: #### L 505.5000, L501.8300, L501.9100, L501.8400, L500.4050, L700.6800, L100.0100 #### [facility] [address] [place], [place], [facility] BENZODIAZIPINE Positive Abnormal < 200 ng/mL [facility] Comment on above: Performed By: #### L 505.5000, L501.8300, L501.9100, L501.8400, L500.4050, L700.6800, L100.0100 #### [facility] [address] [place], [place], [facility] COCAINE Negative Normal < 300 ng/mL [facility] Comment on above: Performed By: #### L 505.5000, L501.8300, L501.9100, L501.8400, L500.4050, L700.6800, L100.0100 #### [facility] [place], [place], [facility] ECSTACY Negative Normal < 500 ng/mL [facility] Comment on above: Performed By: #### L 505.5000, L501.8300, L501.9100, L501.8400, L500.4050, L700.6800, L100.0100 #### [facility] [place], [place], [facility] METHADONE Negative Normal < 300 ng/mL [facility] Comment on above: Performed By: #### L 505.5000, L501.8300, L501.9100, L501.8400, L500.4050, L700.6800, L100.0100 #### [facility] [address] [place], [place], [facility] OPIATES Negative Normal < 300 ng/mL [facility] Comment on above: Performed By: #### L 505.5000, L501.8300, L501.9100, L501.8400, L500.4050, L700.6800, L100.0100 #### [facility] [address] [place], [address] PCP Negative Normal < 25 ng/mL [facility] Comment on above: Performed By: #### L 505.5000, L501.8300, L501.9100, L501.8400, L500.4050, L700.6800, L100.0100 #### [facility] [address] [place], [address] THC Positive Abnormal < 50 ng/mL [facility] Comment on above: Performed By: #### L 505.5000, L501.8300, L501.9100, L501.8400, L500.4050, L700.6800, L100.0100 #### [facility] [address] [place], [address] VISTA UDS PH [address] [facility] Comment on above: Performed By: #### L 505.5000, L501.8300, L501.9100, L501.8400, L500.4050, L700.6800, L100.0100 #### [facility] [address] [place], [address] Venous Blood Gason 4 Blood Gas Type BENITA Normal [facility] Comment on above: Performed By: #### L 9000.0810 #### [facility] [address] [place], [address] CO2 [Moles/Vol] 21 mmol/L Low 23-33 [facility] Comment on above: Performed By: #### L 9000.0810 #### [facility] [address] [place], [address] HCO3 (Bld) [Moles/Vol] 20 mmol/L Low 22-26 [facility] Comment on above: Performed By: #### L 9000.0810 #### [facility] [address] [place], [address] O2 Delivery Dev Room Air Normal [facility] Comment on above: Performed By: #### L 9000.0810 #### [facility] [address] [place], [address] SITE Not entered Normal [facility] Comment on above: Performed By: #### L 9000.0810 #### [facility] [address] [place], [address] VBG BE -4 mmol/L Low -1.0-3.5 [facility] Comment on above: Performed By: #### L 9000.0810 #### [facility] [address] [place], [address] VBG pCO2 29.2 mmHg Low 41-51 [facility] Comment on above: Performed By: #### L 9000.0810 #### [facility] [address] [place], [address] VBG pH 7.45 High 7.32-7.42 [facility] Comment on above: Performed By: #### L 9000.0810 #### [facility] [address] [place], [address] VBG PO2 90 mmHg High 25-40 [facility] Comment on above: Performed By: #### L 9000.0810 #### [facility] [address] [place], [address] VBG SO2 98 High 50-70 [facility] Comment on above: Performed By: #### L 9000.0810 #### [facility] [address] [place], [address] CNPSparkle 09-08-2023 CNPN Telephone ([facility]) -- TONEJOSSE ([id number]) 1985 F Date Time Provider Department 09/08/23 ANTHONY GARVIN During your visit today, we recorded the following information about you: Ladonna Porter MA 09/08/2023 3:00 PM Signed === PHARMACY TEAM ==== ADDITIONAL INFORMATION NEEDED/REQUESTED Case Submitted: No Request Type: Provider Date of Service: [facility] Additional Information Needed: per payer policy pt must have trail/failure of the following: Pt/hep Nsiads, And CSI. Please advise if pt has completed the above. Thank you. Request from Payor by: N/A Email Sent to: ANTHONY GARVIN V Requested Clinicals/Information Sent: N/A César Lundberg 09/18/2023 6:51 AM [...] Encounter Status:Closed by CÉSAR LUNDBERG on 09/18/23 [facility] CNVelvet 08-25-2023 CNOV Office Visit (FRFHWS ) -- JOSSE WAYNE ([id number]) 1985 F Date Time Provider Department 08/25/23 1:30 PM ANTHONY GARVIN During your visit today, we recorded the following information about you: Makeda Blakely MA 08/25/2023 2:11 PM Signed AMB ROOMING INTAKE FLOWSHEET DATA Pain Pain Level: 6 Pain Location: Knee-Right Description: Other: See comment (popping) Duration Amount of Time: (ongoing) Frequency: Intermittent Intervention/Comfort measure: Reposition Anthony Garvin V, DO 08/25/2023 2:11 PM Signed SERVICE DATE: August 25, 2023 PCP: ASIM [...] symptom rel (more content not included)... Normal [facility] CNPNon 08-25-2023 CNPN Telephone (ORTHWS) -- JOSSE WAYNE ([id number]) 1985 F Date Time Provider Department 08/25/23 [...] Clinicals/Information Sent: N/A Was this already addressed? Makeda Blakely MA 09/27/2023 4:04 PM Signed I called and left a message for the patient to contact the office. No cortisone injections given in the right knee. No documented PT since 2016 at [facility]. No NSAID use documented since 2020. Makeda Blakely MA 09/27/2023 4:18 PM Signed Patient returned call. She has not done any treatment for her knee outside of [facility]. Patient declines a cortisone injection as she does not like steroid use. She is willing to try NSAID (send to [facility] [place]) and PT. Please place orders. Notify patient [...] Status:Closed by ANTHONY GARVIN V on 09/28/23 [facility] XR KNEE 4V AP/PA BOTH+LAT/ME R RTon [...] images Comparison: X-ray right knee 10/20/2020 RESULT: Jepz-du-aardciuj medial and lateral compartment joint space narrowing with marginal osteophytes. No acute fracture or dislocation. IMPRESSION: No acute osseous abnormality. Degenerative disease of the right knee. Web Manager: FABIANO Transcribe Date/Time: Aug 31 2023 3:24P Dictated by : JEFFREY HENRIQUEZ MD This examination was interpreted and the report reviewed and electronically signed by: JEFFREY HENRIQUEZ MD on Aug 31 2023 3:26PM EST [id number] Normal [facility] S-100 (add)on 08-09-2023 S-100 (add) ------ Patient Age/Sex Location Account Attending Physician JOSSE WAYNE 38/F LABSPEC [id number] Dr. Peter Maya MD Specimen: [id number] Received: 08/11/23 Status: FLORENCE Monroy Num: [id number] Spec Type: IMMUNO Subm Dr: Dr. Peter Maya MD PHYSICIAN INSTITUTION [place] [address] SPECIMEN INFORMATION: Tissue Source: Skin lesion of right thigh Clinical Info: Benign skin lesion of right thigh Specimen Number: [id number] CPT code: 32679,62553c1 METHODOLOGY: Deparaffinized sections of prefer/formalin-fixed tissue or PAP/DQ stained slides are incubated with monoclonal/polyclonal antibodies/oligonucleotide probes. Localization is made via biotin free immunoperoxidase method. Appropriate controls are performed and reacted as expected. Results on target cell population are indicated in the following table: RESULTS: ANTIBODY / CLONE RESULT Melan A (A103) negative CD68 (KP-1) negative S-100 (4C4.9) negative CK5-6 (D5 1684) negative P40 (BC28) negative These tests were developed and their performance characteristics determined by [facility]. They may not have been cleared or approved by the U.S. Food and Drug Administration. The FDA has determined that such clearance or approval is not necessary. The above immunohistochemical/dualIS H markers are ordered and reviewed by the Pathologist. INTERPRETATION: Skin lesion of right thigh, excision: No evidence of malignancy. AM/mr 08/14/23 Signed (signature on file) Dr. Roscoe Cross, 08/14/[address] [facility] Comment on above: Performed By: #### P s100. #### [facility] [address] [place], [place], [address] Surgery Specimen Level Dhruv 08-09-2023 Surgery Specimen Level IV Patient Age/Sex Location Account Attending Physician RAMESHJOSSE GARRISON 38/F LABSPEC [id number] Dr. Peter Maya MD Specimen: [id number] Received: 08/09/23-1452 Status: FLORENCE Pathaksiddharth Num: [id number] Spec Type: Lesion Subm Dr: Dr. Peter Maya MD HEADER OPERATION: Biopsy PRE-OP DIAGNOSIS: Benign skin lesion of right thigh TISSUE SUBMITTED: Skin lesion of right thigh MICROSCOPIC DIAGNOSIS Skin lesion of right thigh, biopsy: Verrucoid keratosis. See comment. / 08/11/2023 COMMENT Immunohistochemistry ([id number]) supports the above diagnosis. MICROSCOPIC DESCRIPTION Slides are reviewed. GROSS DESCRIPTION Received is one container labeled with the patient's name and not further designated. The specimen consists of a discoid fragment of costa skin measuring 0.6 x 0.5 x 0.2cm. The specimen is inked, bisected and totally submitted in one cassette. / 08/10/23 TC:5 CPT:11139 Patient Age/Sex Location Account Attending Physician JOSSE WAYNE 38/F LABSPEC [id number] Dr. Peter Maya MD Signed (signature on file) Dr. Roscoe Cross DO 08/14/23 1018 [facility] Comment on above: Performed By: #### L 500.2500, L501.4020, L100.0100 #### [facility] [place] [address], [address] 36on 04-15-2024 36 Noted. [facility] 36 Pt returned call. Message released to patient as written. Demetrius Ailyn, FRANCO - ALEJANDRO 06/26/23 7:51 AM Note Please let pt know that her Keppra level is good! Patient's further questions if applicable: None Were all questions from office addressed or relayed to the patient from encounter: Yes [facility] 36 Call to patient. Lm on to call the office. Please inform patient of provider's message below. Thank you. [facility] 36 Please let pt know t hat her Keppra level is good! [facility] Office Visiton 06-21-2023 Follow-up visit [id number] Yamilka Wayne 1985 F Date Provider Department Center 06/21/2023 [id number], DEMETRIUS [facility] None Family History Problem Relation Age of Onset Heart attack Maternal Grandfather Family Status - Relation Status Age at Maternal Grandfather Father Alive Mother Notes: cardiac arrest Level of Service:12912 [place] OFFICE/OUTPATIENT ESTABLISHED LOW MDM 20 MIN Reason for Visit and Comments: Follow-up [284283] Seizures [97] [facility] PATINSon 06-21-2023 PATINS Continue Keppra 1000 mg twice daily Check level Follow up in April [facility] Progress Noteon 06-21-2023 Progress Note Visit type: Establis hed Patient Reason for Visit: Follow-up and Seizures [...] was in 2013 She is working for [employer] for [employer] with plans to build a home She [...] 10/28/2020 VITAMIN B12: No results found for: USRFDPUI53 No results found for: PHENYTOIN, PHENOBARB, VALPROATE, CBMZ No components found for: TOPIRA @RESULTINGLABINFO@ No results found for: LEVETIRACETA, FERRITIN, CRP, SUKHDEV, ANCA No results found for: REGLA, IMMUNOGLOBUL, OLIGOBANDS No results found for: CEI43GA, HEPCAB No results found for: CRP, ANATITER, ANCA FERRITIN: No results found for: FERRITIN ---- US NON OB TRANSVAGINAL Narrative: Gynecological Report (Signed Final 01/07/2021 01:43 pm) Patient Info ID #: [id number] : [birth year] (35 yrs)(F) Name: JOSSE WAYNE Visit Date: 01/06/2021 01:12 pm Performed By Attending: Yessi Location: [facility] 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 Normal [facility] SHS STREP A MOLECULAR (POC)on Procedural Control Valid [facility] Strep A (POCT) Negative Negative [facility] Absolute lymphocyte countOrd ered By: Nita Duffy on 02-06-2023 Lymphocytes Auto (Unsp spec) [#/Vol] 1.32 10*3/uL 0.83-4.51 [facility] Basophil percentageOrdered B y: Nita Duffy on 02-06-2023 Basophil percentage 0 SEEN /hpf 0-5 [facility] Basophils/100 WBC (Bld) 0.4 % 0-1 [facility] Chloride [Moles/Vol] 108 mmol/L 98-107 [facility] Eosinophils/100 WBC (Bld) 0.1 % 0-5 [facility] Glucose [Mass/Vol] 113 mg/dL 74-106 [facility] Comment on above: Fasting Glucose resu lt from 100 to 125 mg/dL suggests IMPAIRED HOMEOSTASIS per A.D.A. criteria. Neutrophils (Bld) [#/Vol] 7.0 10*3/uL 2.0-7.7 [facility] Neutrophils/100 WBC (Bld) 78.5 % 47-70 [facility] Potassium [Moles/Vol] 4.7 mmol/L 3.5-5.1 [facility] Comment on above: Moderate Hemolysis, Result may be falsely increased. Sodium [Moles/Vol] 138 mmol/L 136-145 [facility] WBC (Bld) [#/Vol] 9.0 10*3/uL 4.4-11.0 [facility] Bilirubin Test strip Ql (U)O rdered By: Nita Duffy on 02-06-2023 Bilirubin Ql (U) Negative Negative [facility] Blood erythrocytes count (nu mber/volume)Ordered By: Nita Duffy on 02-06-2023 RBC (Bld) [#/Vol] 4.55 10*6/uL 4.2-5.4 [facility] Blood hemoglobin measurement (mass/volume)Ordered By: Nita Duffy on 02-06-2023 Hemoglobin (Bld) [Mass/Vol] 14.2 g/dL 12.0-15.0 [facility] Blood lymphocytes/100 leukoc ytesOrdered By: Nita Duffy on 02-06-2023 Lymphocytes/100 WBC (Bld) 14.7 % 19-41 [facility] Blood monocytes/100 leukocyt esOrdered By: Nita Duffy on 02-06-2023 Monocytes/100 WBC (Bld) 6.1 % 0-10 [facility] Blood platelet mean volumeOr dered By: Nita Duffy on 02-06-2023 Platelet mean volume (Bld) [Entitic vol] 9.4 fL 6.2-12.0 [facility] Determination of erythrocyte mean corpuscular volume (MCV)Ordered By: Nita Duffy on 02-06-2023 MCV (RBC) [Entitic vol] 89.7 fL 81-99 [facility] Hematocrit Auto (Bld) [Volum e fraction]Ordered By: Nita Duffy on 02-06-2023 Hematocrit (Bld) [Volume fraction] 40.8 % 37-47 [facility] Ketones Test strip Ql (U)Ord ered By: Nita Duffy on 02-06-2023 Ketones Ql (U) Negative Negative [facility] - Chemistry and C hemistry - challengeOrdered By: Nita Duffy on 02-06-2023 CO2 [Moles/Vol] 28.0 mmol/L 21.0-32.0 [facility] Urea nitrogen/Creatinine [Mass ratio] 14.9 mg/mg 10-20 [facility] - Hematology and Cell countsOrdered By: Nita Duffy on 02-06-2023 Erythrocyte distribution width (RBC) [Entitic vol] 38.8 fL 35.1-43.9 [facility] Erythrocyte distribution width (RBC) [Ratio] 11.9 % 11.6-14.6 [facility] Immature granulocytes/100 WBC (Bld) 0.200 % 0.0-0.9 [facility] Comment on above: IG% - Immature Granu locytes (promyelocytes, myelocytes and metamyelocytes) > 1% indicates that a LEFT SHIFT is Present. MCH (RBC) [Entitic mass] 31.2 pg 27.0-32.0 [facility] Nucleated RBC/100 WBC (Bld) [Ratio] 0 % 0-5 [facility] MCHC Auto (RBC) [Mass/Vol]Or dered By: Nita Duffy on 11-27-2023 MCHC (RBC) [Mass/Vol] 34.8 g/dL 32-36 [facility] Mucus LM Ql (Urine sed)Order ed By: Nita Duffy on 02-06-2023 Mucus Ql (Urine sed) 0 SEEN /hpf [facility] Nitrite Test strip Ql (U)Ord ered By: Nita Duffy on 02-06-2023 Nitrite Ql (U) Negative Negative [facility] No Panel InformationOrdered By: Nita Duffy on 02-06-2023 Estimated Creatinine Clearance Calc 74.12 ml/min [facility] Estimated GFR (MDRD) Amer 92 mL/min >60 [facility] Comment on above: GFR Calc Estimated GFR (MDRD) Non-Af Amer 76 mL/min >60 [facility] Comment on above: Non- GFR Calc Platelets bldOrdered By: Raquel Duffy on 02-06-2023 Platelets (Bld) [#/Vol] 318 10*3/uL 150-450 [facility] Protein Test strip Ql (U)Ord ered By: Nita Duffy on 02-06-2023 Protein Ql (U) Negative Negative [facility] Serum or plasma calcium da urement (mass/volume)Ordered By: Nita Duffy on 02-06-2023 Calcium [Mass/Vol] 9.7 mg/dL 8.5-10.1 [facility] Serum or plasma creatinine m easurement (mass/volume)Ordered By: Nita Duffy on 02-06-2023 Creatinine [Mass/Vol] 0.88 mg/dL 0.55-1.02 [facility] Comment on above: The validity of the calculated GFR & GFRAA in patients over 70 years has not been determined. Clinical correlation is essential. Serum or plasma urea nitroge n measurement (mass/volume)Ordered By: Nita Duffy on 02-06-2023 Urea nitrogen [Mass/Vol] 13 mg/dL 7-18 [facility] Squamous epithelial cells de tection in urine sediment by light microscopyOrdered By: Nita Duffy on 02-06-2023 Epithelial cells.squamous LM Ql (Urine sed) 0 SEEN /hpf 5-10 [facility] Thin prep Papanicolaou smear with manual screeningOrdered By: Nita Duffy on 02-06-2023 Thin prep Papanicolaou smear with manual screening 2 5-15 [facility] Urine blood detectionOrdered By: Nita Duffy on 02-06-2023 RBC Ql (U) Negative Negative [facility] RBC Ql (U) 0 SEEN /hpf 0-5 [facility] Urine clarityOrdered By: Raquel Duffy on 02-06-2023 Clarity (U) Clear Clear [facility] Urine color determinationOrd ered By: Nita Duffy on 02-06-2023 Color (U) Yellow Yellow [facility] Urine glucose detectionOrder ed By: Nita Duffy on 02-06-2023 Glucose Ql (U) Normal mg/dl Normal [facility] Urine leukocyte esterase det ection by dipstickOrdered By: Nita Duffy on 02-06-2023 Leukocyte esterase Test strip Ql (U) Negative Negative [facility] Urine pHOrdered By: Nita Duffy on 02-06-2023 pH (U) 6.0 [pH] 5.0 - 8.0 [facility] Urine sediment bacteria coun t by microscopy (number/high power field)Ordered By: Nita Duffy on 02-06-2023 Bacteria LM.HPF (Urine sed) [#/Area] 0 /[HPF] None Seen [facility] Urine specific gravity measu rementOrdered By: Nita Duffy on 02-06-2023 Specific gravity (U) [Rel density] 1.025 1.002-1.[address] [facility] Urobilinogen Auto test strip Ql (U)Ordered By: Nita Duffy on 02-06-2023 Urobilinogen Ql (U) Normal mg/dl Normal [facility] CNOVon 03-02-2022 CNOV Office Visit (AGINTM LW) -- JOSSE WAYNE ([id number]) 1985 F Date Time Provider Department 03/02/22 2:40 PM GABE PIERRE AGINTMLW During your visit today, we recorded the following information about you: Temperature Pulse Respiration Blood pressure 98.2 degrees 82/minute 24/minute 110/78 Weight Height 139.7 kg 1.626 m Gabe Pierre APRN.EXPERIENCE DESIGN DIRECTOR 03/02/2022 3:39 PM Signed This note was created using [employer]. Subjective Josse Wayne is a 36 year old female here today to establish care. PMH PTSD, PCOS, obesity, hirsutism, epilepsy. Former PCP Dr Vazquez in [place]. Anxiety, Depression, PTSD: chronic, stable. She is seeing psychiatrist at [facility]. She is taking Celexa 30 mg daily, [...] She is seeing Dr Anderson Pedroza in [place]. Reports last seizure 2012. Reports her keppra [...] and COVID vaccines. She follows up with [employer] [facility] regularly. ALLERGIES Allergen Reactions Phenobarbital Rash Current [...] Face dr (more content not included)... Normal [facility] CNCOon 02-28-2022 CNCO Letter Text Normal [facility] CNPNon 02-28-2022 CNPN Telephone (AGINTMLW) -- TONEJOSSE ([id number]) 1985 F Date Time Provider Department 02/28/22 GABE PIERRE AGINTMLW During your visit today, we recorded the following information about you: Blessing Amezcua MA 02/28/2022 2:39 PM Signed ----- Message from Tisha Martinez sent at 02/24/2022 1:28 PM EST ----- Regarding: FW: new pt ----- Message ----- From: Jessica Monson Sent: 02/24/2022 1:11 PM EST To: [facility] Triage Pool Subject: new pt [...] to office for appt on 03/02/22 fax [phone] jojo Was Patient Referred to 911/Seek Emergency Treatment (Y/N): n Did Patient Agree (Y/N): n Was An Attempt Made To Transfer The Patient To The Office (Y/N): n Were You Able To Reach Someone At The Office (Y/N): n If Yes - Patient Was Transferred To (Caregivers Name): n If No - Which [facility] Leadership Vending Service Technician Did You Speak With Regarding This Patient: n Was an appointment scheduled (Y/N): n Reason patient was requesting visit (RFV/signs and symptoms/diagnosis) : na Person calling if other than patient: na Return call to if other than patient: na Best contact number: [phone] Thank you, Jessica Monson February 24, 2022 [...] Encounter Status:Closed by BLESSING AMEZCUA on 02/28/22 [facility] Sara 02-24-2022 CNPN Telephone (AGINTMLW) -- JOSSE WAYNE ([id number]) 1985 F Date Time Provider Department 02/24/22 GABE PIERRE AGINTMLW During your visit today, we recorded the following information about you: Moniquenickolas Levine 02/24/2022 1:55 PM Signed ----- Message from Jessica Monson sent at 02/24/2022 1:05 PM EST ----- Regarding: new pt Subject Line Format: Medicine / [Provider Name] / [Issue] Patient has been identified by name and Date of (Y/N): y Patient: Josse Gayle Wayne Date of : 1985 Provider for this encounter: No primary care provider on file. Reason for the call/escalation: pt would like a note faxed over to toni who is handling her trsanspotation for the appt would like note to say she was referred to office for appt on 03/02/22 fax [phone] jojo Was Patient Referred to 911/Seek Emergency Treatment (Y/N): n Did Patient Agree (Y/N): n Was An Attempt Made To Transfer The Patient To The Office (Y/N): n Were You Able To Reach Someone At The Office (Y/N): n If Yes - Patient Was Transferred To (Caregivers Name): n If No - Which [facility] Leadership Vending Service Technician Did You Speak With Regarding This Patient: n Was an appointment scheduled (Y/N): n Reason patient was requesting visit (RFV/signs and symptoms/diagnosis) : na Person calling if other than patient: na Return call to if other than patient: na Best contact number: [phone] Thank you, Jessica Monson February 24, 2022 1:09 PM Blessing Amezcua MA 02/28/2022 4:54 PM Signed Letter faxed Blessing Amezcua MA Allergies As of Date: 02/24/2022 Noted Allergy Reaction PHENOBARBITAL 09/12/2006 2 - Rash Date Reviewed: 01/21/2022 Reviewed by: Makeda Blakely Ma - Fully Assessed Reason for Visit: Patient Question [3327] Prescriptions as of 02/28/2022 - citalopram (CELEXA) [...] Encounter Status:Closed by BLESSING AMEZCUA on 02/28/22 Normal [facility] Absolute lymphocyte counton 01-09-2022 Lymphocytes Auto (Unsp spec) [#/Vol] 1.48 10*3/uL 0.83-4.51 [facility] Work Phone: Basophil percentageon 2021 Basophils/100 WBC (Bld) 0.6 % 0-1 [facility] Work Phone: Bilirubin [Mass/Vol] 0.40 mg/dL 0.20-1.00 [facility] Work Phone: Comment on above: For patients on eltr ombopag therapy, use of Dimension Alpine TBIL is not recommended. Chloride [Moles/Vol] 104 mmol/L 98-107 [facility] Work Phone: Eosinophils/100 WBC (Bld) 0.4 % 0-5 [facility] Work Phone: Glucose [Mass/Vol] 153 mg/dL 74-106 [facility] Work Phone: Comment on above: Fasting Glucose resu lt greater than or equal to 126 mg/dL suggests DIABETES MELLITUS per A.D.A. criteria. Neutrophils (Bld) [#/Vol] 5.7 10*3/uL 2.0-7.7 [facility] Work Phone: Neutrophils/100 WBC (Bld) 72.8 % 47-70 [facility] Work Phone: Potassium [Moles/Vol] 3.3 mmol/L 3.5-5.1 [facility] Work [facility]: Protein [Mass/Vol] 7.9 g/dL 6.4-8.2 [facility] Work Phone: Sodium [Moles/Vol] 138 mmol/L 136-145 [facility] Work Phone: WBC (Bld) [#/Vol] 7.8 10*3/uL 4.4-11.0 [facility] Work Phone: Blood erythrocytes count (nu mber/volume)on 01-09-2022 RBC (Bld) [#/Vol] 4.80 10*6/uL 4.2-5.4 [facility] Work Phone: Blood hemoglobin measurement (mass/volume)on 01-09-2022 Hemoglobin (Bld) [Mass/Vol] 14.6 g/dL 12.0-15.0 [facility] Work Phone: Blood lymphocytes/100 leukoc yteson 01-09-2022 Lymphocytes/100 WBC (Bld) 19.0 % 19-41 [facility] [facility] Work Phone: Blood monocytes/100 leukocyt eson 01-09-2022 Monocytes/100 WBC (Bld) 6.8 % 0-10 [facility] Work Phone: Blood platelet mean volumeon 01-09-2022 Platelet mean volume (Bld) [Entitic vol] 10.0 fL 6.2-12.0 [facility] Work Phone: Determination of erythrocyte mean corpuscular volume (MCV)on 01-09-2022 MCV (RBC) [Entitic vol] 86.7 fL 81-99 [facility] Work Phone: [phone] Hematocrit Auto (Bld) [Volum e fraction]on 01-09-2022 Hematocrit (Bld) [Volume fraction] 41.6 % 37-47 [facility] Work Phone: [phone] Laboratory - Chemistry and C hemistry - challengeon 01-09-2022 ALP [Catalytic activity/Vol] 71 U/L 45-117 [facility] Work Phone: [phone] ALT [Catalytic activity/Vol] 58 U/L 13-56 [facility] Work Phone: [phone] CO2 [Moles/Vol] 22.0 mmol/L 21.0-32.0 [facility] Work Phone: [phone] Globulin (S) [Mass/Vol] 4.1 g/dL 2.2-4.2 [facility] Work Phone: [phone] Urea nitrogen/Creatinine [Mass ratio] 10.9 mg/mg 10-20 [facility] Work Phone: [phone] Laboratory - Hematology and Cell countson 01-09-2022 Erythrocyte distribution width (RBC) [Entitic vol] 38.3 fL 35.1-43.9 [facility] Work Phone: [phone] Erythrocyte distribution width (RBC) [Ratio] 11.9 % 11.6-14.6 [facility] Work Phone: [phone] Immature granulocytes/100 WBC (Bld) 0.400 % 0.0-0.9 [facility] Work Phone: [phone] Comment on above: IG% - Immature Granu locytes (promyelocytes, myelocytes and metamyelocytes) > 1% indicates that a LEFT SHIFT is Present. MCH (RBC) [Entitic mass] 30.4 pg 27.0-32.0 [facility] Work Phone: [phone] Nucleated RBC/100 WBC (Bld) [Ratio] 0 % 0-5 [facility] Work Phone: [phone] MCHC Auto (RBC) [Mass/Vol]on 01-09-2022 MCHC (RBC) [Mass/Vol] 35.1 g/dL 32-36 [facility] Work Phone: No Panel Informationon 01-09 Estimated Creatinine Clearance Calc 59.88 ml/min [facility] Work Phone: Estimated GFR (MDRD) Amer 71 mL/min >60 [facility] Work Phone: Comment on above: GFR Calc Estimated GFR (MDRD) Non-Af Amer 59 mL/min >60 [facility] Work Phone: Comment on above: Non- GFR Calc Platelets bldon 01-09-2022 Platelets (Bld) [#/Vol] 319 10*3/uL 150-450 [facility] Work Phone: Serum or plasma albumin da urement (mass/volume)on 01-09-2022 Albumin [Mass/Vol] 3.8 g/dL 3.2-5.0 [facility] Work Phone: Serum or plasma albumin/glob ulin mass ratioon 01-09-2022 Albumin/Globulin [Mass ratio] 0.9 {ratio} 0.9-2.4 [facility] Work Phone: Serum or plasma calcium da urement (mass/volume)on 01-09-2022 Calcium [Mass/Vol] 9.6 mg/dL 8.5-10.1 [facility] Work Phone: Serum or plasma creatinine m easurement (mass/volume)on 01-09-2022 Creatinine [Mass/Vol] 1.10 mg/dL 0.55-1.02 [facility] Work Phone: Comment on above: The validity of the calculated GFR & GFRAA in patients over 70 years has not been determined. Clinical correlation is essential. Serum or plasma urea nitroge n measurement (mass/volume)on 01-09-2022 Urea nitrogen [Mass/Vol] 12 mg/dL 7-18 [facility] Work Phone: Thin prep Papanicolaou smear with manual screeningon 01-09-2022 Thin prep Papanicolaou smear with manual screening 23 U/L 15-37 [facility] Work Phone: Thin prep Papanicolaou smear with manual screening 12 5-15 [facility] Work Phone: Basophil percentageon 2021 Basophil percentage 0 SEEN /hpf 0-5 [facility] Work Phone: Bilirubin Test strip Ql (U)o n 11-03-2021 Bilirubin Ql (U) Negative Negative [facility] Work Phone: Ketones Test strip Ql (U)on 11-03-2021 Ketones Ql (U) 15 mg/dl Negative [facility] Work Phone: Mucus LM Ql (Urine sed)on Mucus Ql (Urine sed) 0 SEEN /hpf [facility] Work Phone: Nitrite Test strip Ql (U)on 11-03-2021 Nitrite Ql (U) Negative Negative [facility] Work Phone: Protein Test strip Ql (U)on 11-03-2021 Protein Ql (U) Negative Negative [facility] Work Phone: Squamous epithelial cells de tection in urine sediment by light microscopyon 11-03-2021 Epithelial cells.squamous LM Ql (Urine sed) 0-5 SEEN /hpf 5-10 [facility] Work Phone: Urine blood detectionon 10-12 RBC Ql (U) Negative Negative [facility] Work Phone: RBC Ql (U) 0 SEEN /hpf 0-5 [facility] Work Phone: Urine clarityon 11-03-2021 Clarity (U) Clear Clear [facility] Work Phone: Urine color determinationon 11-03-2021 Color (U) Straw Yellow [facility] Work Phone: Urine glucose detectionon Glucose Ql (U) Normal mg/dl Normal [facility] Work Phone: Urine leukocyte esterase det ection by dipstickon 11-03-2021 Leukocyte esterase Test strip Ql (U) Negative Negative [facility] Work Phone: Urine pHon 11-03-2021 pH (U) 6.0 [pH] 5.0 - 8.0 [facility] Work Phone: Urine sediment bacteria coun t by microscopy (number/high power field)on 11-03-2021 Bacteria LM.HPF (Urine sed) [#/Area] 0 /[HPF] None Seen [facility] Work Phone: Urine specific gravity measu rementon 11-03-2021 Specific gravity (U) [Rel density] 1.010 1.002-1.[address] [facility] Work Phone: Urobilinogen Auto test strip Ql (U)on 11-03-2021 Urobilinogen Ql (U) Normal mg/dl Normal [facility] Work Phone: Absolute lymphocyte counton 10-18-2021 Lymphocytes Auto (Unsp spec) [#/Vol] 1.70 10*3/uL 0.83-4.51 [facility] Work Phone: Acetaminophen level (mass/vo lume)on 10-18-2021 Acetaminophen (Unsp spec) [Mass/Vol] < 2.0 ug/mL 10.0-30.0 [facility] Work Phone: Basophil percentageon 2021 Basophils/100 WBC (Bld) 0.5 % 0-1 [facility] Work Phone: Chloride [Moles/Vol] 109 mmol/L 98-107 [facility] Work Phone: Eosinophils/100 WBC (Bld) 1.4 % 0-5 [facility] Work Phone: Glucose [Mass/Vol] 118 mg/dL 74-106 [facility] Work Phone: Comment on above: Fasting Glucose resu lt from 100 to 125 mg/dL suggests IMPAIRED HOMEOSTASIS per A.D.A. criteria. Neutrophils (Bld) [#/Vol] 3.6 10*3/uL 2.0-7.7 [facility] Work Phone: Neutrophils/100 WBC (Bld) 61.9 % 47-70 [facility] Work Phone: Potassium [Moles/Vol] 3.5 mmol/L 3.5-5.1 [facility] Work [facility]: Sodium [Moles/Vol] 139 mmol/L 136-145 [facility] Work Phone: WBC (Bld) [#/Vol] 5.8 10*3/uL 4.4-11.0 [facility] Work Phone: Beta hCG serum qualon 2021 Beta HCG ( test) Ql Negative [facility] Work Phone: Blood erythrocytes count (nu mber/volume)on 10-18-2021 RBC (Bld) [#/Vol] 4.76 10*6/uL 4.2-5.4 [facility] Work [facility]: Blood hemoglobin measurement (mass/volume)on 10-18-2021 Hemoglobin (Bld) [Mass/Vol] 14.4 g/dL 12.0-15.0 [facility] Work Phone: Blood lymphocytes/100 leukoc yteson 10-18-2021 Lymphocytes/100 WBC (Bld) 29.6 % 19-41 [facility] Work Phone: Blood monocytes/100 leukocyt eson 10-18-2021 Monocytes/100 WBC (Bld) 6.3 % 0-10 [facility] Work Phone: Blood platelet mean volumeon 10-18-2021 Platelet mean volume (Bld) [Entitic vol] 9.4 fL 6.2-12.0 [facility] Work Phone: Determination of erythrocyte mean corpuscular volume (MCV)on 10-18-2021 MCV (RBC) [Entitic vol] 87.2 fL 81-99 [facility] Work Phone: Hematocrit Auto (Bld) [Volum e fraction]on 10-18-2021 Hematocrit (Bld) [Volume fraction] 41.5 % 37-47 [facility] Work Phone: [phone] Laboratory - Chemistry and C hemistry - challengeon 10-18-2021 CO2 [Moles/Vol] 24.0 mmol/L 21.0-32.0 [facility] Work Phone: [phone] Urea nitrogen/Creatinine [Mass ratio] 14.5 mg/mg 10-20 [facility] Work Phone: [phone] Laboratory - Drug toxicology on 10-18-2021 Amphetamines Ql (U) Negative <1000 ng/mL [facility] Work Phone: [phone] Benzodiazepines Ql (U) Positive < 200 ng/mL [facility] Work Phone: [phone] Cannabinoids Screen Ql (U) Negative < 50 ng/mL [facility] Work Phone: [phone] Cocaine Ql (U) Negative < 300 ng/mL [facility] Work Phone: [phone] Opiates Ql (U) Negative < 300 ng/mL [facility] Work Phone: [phone] Laboratory - Hematology and Cell countson 10-18-2021 Erythrocyte distribution width (RBC) [Entitic vol] 38.6 fL 35.1-43.9 [facility] Work Phone: [phone] Erythrocyte distribution width (RBC) [Ratio] 12.0 % 11.6-14.6 [facility] Work Phone: [phone] Immature granulocytes/100 WBC (Bld) 0.300 % 0.0-0.9 [facility] Work Phone: [phone] Comment on above: IG% - Immature Granu locytes (promyelocytes, myelocytes and metamyelocytes) > 1% indicates that a LEFT SHIFT is Present. MCH (RBC) [Entitic mass] 30.3 pg 27.0-32.0 [facility] Work Phone: [phone] Nucleated RBC/100 WBC (Bld) [Ratio] 0 % 0-5 [facility] Work Phone: [phone] MCHC Auto (RBC) [Mass/Vol]on 10-18-2021 MCHC (RBC) [Mass/Vol] 34.7 g/dL 32-36 [facility] Work Phone: No Panel Informationon 10-18 MDMA (Ecstasy) Screen Negative < 500 ng/mL [facility] Work Phone: Urine Barbiturates Screen Negative < 200 ng/mL [facility] Work Phone: [phone] Urine Drug Screen Comment [facility] Work Phone: [phone] Comment on above: CONFIRMATORY TESTING FOR ALL POSITIVE URINE DRUG SCREENRESULTS WILL ONLY BE SENT OUT UPON PHYSICIAN ORDER. VISTA Urine Drug Screen methods provide only preliminaryanalytical test results. A more specific alternate chemicalmethod must be used in order to obtain a confirmedanalytical result. Gas chromatography/mass spectrometery(GC/MS) is the preferred confirmatory method. Clinicalconsideration and professional judgement should be appliedto any drug of abuse test result, particularly whenpreliminary positive results are used. URINE TCA TESTING MUST BE ORDERED SEPARATELY. USE TESTMNEMONIC: [facility] Urine Methadone Screen Negative < 300 ng/mL [facility] Work Phone: [phone] Estimated Creatinine Clearance Calc 79.36 ml/min [facility] Work Phone: [phone] Estimated GFR (MDRD) Amer 99 mL/min >60 [facility] Work Phone: [phone] Comment on above: GFR Calc Estimated GFR (MDRD) Non-Af Amer 82 mL/min >60 [facility] Work Phone: Comment on above: Non- GFR Calc Ethyl Alcohol Level 6.0 mg/dL [facility] Work Phone: [phone] Comment on above: The serum:whole bloo d ethanol ratio is approximately 1.14and varies slightly with hematocrit. Medical Alcohol reference interval and critical value innon-tolerant individuals; 50 - 100 Impairment 100 Intoxication 100 - 250 Severe Poisoning 250 - 400 Deep/possible fatal coma Platelets bldon 10-18-2021 Platelets (Bld) [#/Vol] 310 10*3/uL 150-450 [facility] Work Phone: Serum or plasma calcium da urement (mass/volume)on 10-18-2021 Calcium [Mass/Vol] 9.1 mg/dL 8.5-10.1 [facility] Work Phone: Serum or plasma creatinine m easurement (mass/volume)on 10-18-2021 Creatinine [Mass/Vol] 0.83 mg/dL 0.55-1.02 [facility] Work Phone: Comment on above: The validity of the calculated GFR & GFRAA in patients over 70 years has not been determined. Clinical correlation is essential. Serum or plasma salicylates measurement (mass/volume)on 10-18-2021 Salicylates [Mass/Vol] mg/dL 2.8-20.0 [facility] Work Phone: Serum or plasma urea nitroge n measurement (mass/volume)on 10-18-2021 Urea nitrogen [Mass/Vol] 12 mg/dL 7-18 [facility] Work Phone: Thin prep Papanicolaou smear with manual screeningon 10-18-2021 Thin prep Papanicolaou smear with manual screening 6 5-15 [facility] Work Phone: Urine phencyclidine (PCP) de tectionon 10-18-2021 Phencyclidine Ql (U) Negative < 25 ng/mL [facility] Work Phone: Basophil percentageon 2021 Basophil percentage 0-5 SEEN /hpf 0-5 [facility] Work Phone: Bilirubin Test strip Ql (U)o n 08-02-2021 Bilirubin Ql (U) Negative Negative [facility] Work Phone: Ketones Test strip Ql (U)on 08-02-2021 Ketones Ql (U) Negative Negative [facility] Work Phone: Mucus LM Ql (Urine sed)on Mucus Ql (Urine sed) 0 SEEN /hpf [facility] Work Phone: Nitrite Test strip Ql (U)on 08-02-2021 Nitrite Ql (U) Negative Negative [facility] Work Phone: Protein Test strip Ql (U)on 08-02-2021 Protein Ql (U) Negative Negative [facility] Work Phone: Squamous epithelial cells de tection in urine sediment by light microscopyon 08-02-2021 Epithelial cells.squamous LM Ql (Urine sed) 5-10 SEEN /hpf 5-10 [facility] Work Phone: Urine blood detectionon 07-12 RBC Ql (U) Negative Negative [facility] Work Phone: RBC Ql (U) 0-5 SEEN /hpf 0-5 [facility] Work Phone: Urine clarityon 08-02-2021 Clarity (U) Clear Clear [facility] Work Phone: Urine color determinationon 08-02-2021 Color (U) Yellow Yellow [facility] Work Phone: Urine glucose detectionon Glucose Ql (U) Normal mg/dl Normal [facility] Work Phone: Urine leukocyte esterase det ection by dipstickon 08-02-2021 Leukocyte esterase Test strip Ql (U) Negative Negative [facility] Work Phone: Urine pHon 08-02-2021 pH (U) 6.0 [pH] 5.0 - 8.0 [facility] Work Phone: Urine sediment bacteria coun t by microscopy (number/high power field)on 08-02-2021 Bacteria LM.HPF (Urine sed) [#/Area] 2 /[HPF] None Seen [facility] Work Phone: Urine specific gravity measu rementon 08-02-2021 Specific gravity (U) [Rel density] 1.015 1.002-1.[address] [facility] Work Phone: Urobilinogen Auto test strip Ql (U)on 08-02-2021 Urobilinogen Ql (U) Normal mg/dl Normal [facility] Work Phone: Follicle Stim Hormoneon 12-11 Follicle Stim Hormone 2.7 m[IU]/mL Normal S [facility] Comment on above: Result Comment: Females: Follicular Phase ...... 2.3-12.6 Mid-cycle Peak ........ 5.2-17.5 Luteal Phase .......... 1.7-12.9 Post-menopausal ....... 12.7-132.2 Males: 0.7-10.8 Performed By: #### F SH3 #### [facility] [address] [place] [address] Follicle Stimulating Hormone Ordered By: Yessi Munoz on 12-23-2020 FSH 2.7 m[IU]/mL [facility] Work Phone: Comment on above: Females: Follicular Phase ...... 2.3-12.6 Mid-cycle Peak ........ 5.2-17.5 Luteal Phase .......... 1.7-12.9 Post-menopausal ....... 12.7-132.2 Males: 0.7-10.8 Test Performed by [facility], [address], [place], [place] [address] [facility] Work Phone: [employer] Work Phone: Insulinon 11-02-2020 Insulin 21 uIU/mL Normal [facility] Comment on above: Result Comment: INTE [...] fasting insulin is 3-25 uIU/mL. Performed By: [facility] [address] [place] [address] Consulting Services Associate: Jovanna Núñez MD Performed By: #### D HEAO, INSO, 17HPO, TSTFO #### The performing lab is in the report. #### PRLA3 #### [facility] [address] [place] [address] #### GLUC3, TSH5 #### [facility] [address] [place] [address] Testo,Free/Total-Femaleon SHBG 33 nmol/L Normal 30-135 [facility] Comment on above: Result Comment: REFE RENCE INTERVAL: Sex Hormone Binding Globulin Access complete set of age- and/or gender-specific reference intervals for this test in the [facility] Test Directory (WebMD). Performed By: #### D HEAO, INSO, 17HPO, TSTFO #### The performing lab is in the report. #### PRLA3 #### [facility] [address] [place] [address] #### GLUC3, TSH5 #### [facility] [address] [facility] [place] [address] Testosterone [Mass/Vol] 64 ng/dL High 9-55 [facility] Comment on above: Result Comment: Tota l Testosterone, Females 18 years and older Premenopausal 9-55 ng/dL Postmenopausal 5-32 ng/dL REFERENCE INTERVAL: Testosterone, LC-MS/MS Access complete set of age- and/or gender-specific reference intervals for this test in the [employer] [facility] Test Directory (WebMD). This test was developed and its performance characteristics determined by [facility]. It has not been cleared or approved by the [place] Food and Drug Administration. This test was performed in a CLIA certified laboratory and is intended for clinical purposes. Performed By: #### D HEAO, INSO, 17HPO, TSTFO #### The performing lab is in the report. #### PRLA3 #### [facility] [address] [place] [address] #### GLUC3, TSH5 #### [facility] [address] [place] [address] Testosterone, Free 10.7 pg/mL High 1.3-9.2 [facility] Comment on above: Result Comment: To [...] reference intervals for this test in the [employer] [facility] Test Directory (WebMD). This test was developed and its performance characteristics determined by [facility]. It has not been cleared or approved by the [place] Food and Drug Administration. This test was performed in a CLIA certified laboratory and is intended for clinical purposes. Performed By: [facility] [address] [place] [address] Consulting Services Associate: Jovanna Núñez MD Performed By: #### Gayle MCRAE, INSO, 17HPO, TSTFO #### The performing lab is in the report. #### PRLA3 #### [facility] [address] [place] [address] #### GLUC3, TSH5 #### [facility] [address] [facility] [place] [address] 17-Hydroxyprogesterone, Darrick ton 11-01-2020 17 [place] Progesterone 48.27 ng/dL Normal <=206.00 [facility] Comment on above: Result Comment: INTE RPRETIVE INFORMATION for 17-Hydroxyprogesterone in females: Follicular 15 to 70 ng/dL Luteal 35 to 290 ng/dL REFERENCE INTERVAL: 17-Hydroxyprogesterone Qnt, HPLC-MS/MS Access complete set of age- and/or gender-specific reference intervals for this test in the [employer] [facility] Test Directory (WebMD). This test was developed and its performance characteristics determined by [facility]. It has not been cleared or approved by the [place] Food and Drug Administration. This test was performed in a CLIA certified laboratory and is intended for clinical purposes. Performed By: [facility] [address] [place] [address] Consulting Services Associate: Jovanna Núñez MD Performed By: #### Gayle MCRAE, INSO, 17HPO, TSTFO #### The performing lab is in the report. #### PRLA3 #### [facility] [address] [place] [address] #### GLUC3, TSH5 #### [facility] [address] [place] [address] DHEA SO4on 10-31-2020 DHEA SO4 241 ug/dL Normal 45-270 [facility] Comment on above: Result Comment: REFE RENCE INTERVAL: DHEAS Access complete set of age- and/or gender-specific reference intervals for this test in the [employer] [facility] Test Directory (WebMD). Performed By: [facility] [address] [place] [address] Consulting Services Associate: Jovanna Núñez MD Performed By: #### D HEAO, INSO, 17HPO, TSTFO #### The performing lab is in the report. #### PRLA3 #### [facility] [address] [place] [address] #### GLUC3, TSH5 #### [facility] [address] [place] [address] Glucoseon 10-28-2020 Glucose [Mass/Vol] 97 mg/dL Normal 70-100 [facility] Comment on above: Performed By: #### D HEAO, INSO, 17HPO, TSTFO #### The performing lab is in the report. #### PRLA3 #### [facility] [address] [place] [address] #### GLUC3, TSH5 #### [facility] [address] [place] [address] GlucoseOrdered By: Yessi madison on 10-28-2020 Glucose [Mass/Vol] 97 mg/dL 70 - 100 mg/dL [facility] Work Phone: Test Performed by [facility], [address] , [address] Work Phone: [phone] [facility] Work Phone: Prolactinon 10-28-2020 Prolactin 8.0 ng/mL Normal 2.8-27.0 [facility] Comment on above: Result Comment: Valu es below 35 ng/mL may be of doubtful significance. Recommend send-out testing to rule out macroprolactin to confirm the result. Performed By: #### D HEAO, INSO, 17HPO, TSTFO #### The performing lab is in the report. #### PRLA3 #### [facility] [address] [place] [address] #### GLUC3, TSH5 #### [facility] [address] [place] [address] ProlactinOrdered By: Yessi Munoz on 10-28-2020 Prolactin 8 ng/mL 2.8 - 27.0 ng/mL [facility] Work Phone: Comment on above: Values below 35 ng/m L may be of doubtful significance. Recommend send-out testing to rule out macroprolactin to confirm the result. Test Performed by [facility], [address] [place] [address] [employer] Work Phone: [phone] [facility] Work Phone: TSH without ReflexOrdered By : Yessi Munoz on 10-28-2020 TSH Qn 0.531 u[IU]/mL 0.465 - 4.680 u[IU]/mL [facility] Work Phone: Test Performed by [facility], [address] , [address] Work Phone: [phone] [facility] Work Phone: Thyroid Stim. Hormoneon 10-11 Thyroid Stim. Hormone 0.531 u[IU]/mL Normal 0.46 5-4.68 0 [facility] Comment on above: Performed By: #### D HEAO, INSO, 17HPO, TSTFO #### The performing lab is in the report. #### PRLA3 #### [facility] [address] [place] [address] #### GLUC3, TSH5 #### [facility] [address] [place] [address] XR Knee - right 4 Viewson IMPRESSION: No acute fracture or dislocation. Web Manager: [email or web address] Transcribe Date/Time: Oct 20 2020 5:59P Dictated by : CRISTAL TOWNSEND MD This examination was interpreted and the report reviewed and electronically signed by: CRISTAL TOWNSEND MD on Oct 20 2020 6:01PM [facility] DIVISION OF RADIOLOGY * * *Final [...] on the right. DIVISION OF RADIOLOGY Provider, [facility] - 10/20/2020 * * *Final Report* * [...] IMPRESSION IMPRESSION: No acute fracture or dislocation. Web Manager: [email or web address] Transcribe Date/Time: Oct 20 2020 5:59P Dictated by : CRISTAL TOWNSEND MD This examination was interpreted and the report reviewed and electronically signed by: CRISTAL TOWNSEND MD on Oct 20 2020 6:01PM EST [facility] Radiology Study observation (narrative) [facility] XR Knee - right 4 ViewsOrder ed By: Ccf Provider on 10-20-2020 [facility] Keppra{R} (Levetiracetam)on 09-11-2018 Keppra (Levetiracetam) 10 ug/mL Low 12-46 [facility] Comment on above: Result Comment: INTE RPRETIVE INFORMATION: Keppra (Levetiracetam) Therapeutic Range: 12-46 ug/mL Toxic: Not well Established Pharmacokinetics of levetiracetam are affected by renal function. Adverse effects may include somnolence, weakness, headache and vomiting. This levetiracetam (Keppra) immunoassay uses the [employer] reagents, which has known cross-reactivity with the drug brivaracetam (Briviact) and may report inaccurate results. Patients transitioning from levetiracetam to brivaracetam or those who are using both medications should not monitor drug concentrations with the [email or web address] assay. These patients should be monitored using a validated chromatographic methodology that distinguishes between drugs to determine drug concentrations. Performed by [facility], [address] [place] [id number] [email or web address], Lucas Ignacio MD - Lab. Director Lipid Panelon 09-10-2018 Cholesterol [Mass/Vol] 183 mg/dL Normal 0-199 [facility] Comment on above: Result Comment: ATP III Cholesterol classification is Desirable. Performed By: #### L IPID #### [facility] [address] [place] [address] Cholesterol in HDL [Mass/Vol] 34 mg/dL Low 40-59 [facility] Comment on above: Result Comment: ATP III [...] CHD Performed By: #### L IPID #### [facility] [address] [place] [address] Cholesterol in LDL [Mass/Vol] 132 mg/dL Critically high 0-129 [facility] Comment on above: Result Comment: ATT III Classification is Borderline High. Performed By: #### L IPID #### [facility] [address] [place] [address] Triglyceride [Mass/Vol] 87 mg/dL Normal 0-150 [facility] Comment on above: Result Comment: ATP III Triglycerides Classification is Normal. Performed By: #### L IPID #### [facility] [address] [place] [id number] History And Physical-Dictate don 11-20-2017 History And Physical-Dictated [facility] [address] 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 HISTORY OF PRESENT ILLNESS Patient was seen by her counselor at [facility] where the patient verbalized suicidal plan of taking overdose of sleeping pills. It is reported patient had left the therapy session abruptly to go home to take the overdose. Police were called and she was brought to the [facility]. The patient was tearful, depressed, had [...] was not invited to her father's birthday green party. The patient claimed that she had been increasingly isolated and withdrawn since the of her mother in 2007 at the age of 47. The patient claimed that she wanted to go out with friends to the [facility] and one of the friends had told [...] PSYCHIATRIC HISTORY The patient was hospitalized at [facility]. She was hospitalized 5 times at [facility] between June 2008 to June 2009. She had been treated at [facility] 3 times between December 2013 to August 2014. She had been also treated at [facility]. She was treated at [facility] in December 2016. She is currently attending counseling at [facility]. She is seeing a psychiatrist at [facility] in [place]. FAMILY HISTORY The patient's mother in 2007 at the age of 47. The patient did not have a close relationship with her father. The patient has 1 brother, 1 sister. The patient is single, never , has no children. SOCIAL HISTORY The patient had graduated from high school in a special education program. She had worked at [employer], a [employer] food [employer] and a [employer]. She had last worked in 2003. The [...] Nose: No discharge noted. Mouth and pharynx: Road Runner mucosa. Neck: Supple. Respiratory: Clear to auscultation. [...] seizure precautions. MD Gayle BROWN 11/17/2017 19:55 [id number] T 11/17/2017 20:37 YKD/MODL Electronically Signed By Byron Arriola M.D. on 18 Nov 2017 16:23:40 GMT Normal [facility] Protein mass conc [facility] [address] [place] [address] NAME JOSSE WAYNE [facility] [id number] 1985 DATE 11/20/2017 PROGRESS NOTE The patient [...] Further observation. MD Gayle BROWN 11/20/2017 18:50 [id number] T 11/20/2017 19:44 YKD/MODL Electronically Signed By Byron Arriola M.D. on 23 Nov 2017 18:02:23 GMT Normal [facility] Lipid Panelon 11-17-2017 Cholesterol in HDL mass conc 36 mg/dL Low 40-[address] [facility] Comment on above: Performed By: #### L IPID #### Unless otherwise noted, all testing performed by [place] [address] CLIA: [id number] [employer] She[employer] Operator: Gary Pedro M.D. Cholesterol in LDL mass conc 121 mg/dL Normal 10-[address] [facility] Comment on above: Performed By: #### L IPID #### Unless otherwise noted, all testing performed by [place] [address] CLIA: [id number] [employer] Operator: Gary Pedro M.D. Cholesterol in VLDL mass conc 29 mg/dL Normal 5-[address] [facility] Comment on above: Performed By: #### L IPID #### Unless otherwise noted, all testing performed by [place] [address] CLIA: [id number] [employer] Operator: Gary Pedro M.D. Cholesterol mass conc 186 mg/dL Normal 100-199 [facility] Comment on above: Performed By: #### L IPID #### Unless otherwise noted, all testing performed by [place] [address] CLIA: [id number] [employer] Operator: Gary Pedro M.D. Cholesterol.total/Chol esterol in HDL mass ratio 5.1 {ratio} High 3.2-5.[address] [facility] Comment on above: Result Comment: Alexis brito Coronary Heart Disease Risk Factor (CHDRF): Average risk= 4.4 1/2 Average risk= 3.3 2 times Average risk= 7.1 Performed By: #### L IPID #### Unless otherwise noted, all testing performed by [place] [address] CLIA: [id number] St[employer] Operator: Gary Pedro M.D. Triglyceride mass conc 143 mg/dL High 25-120 [facility] Comment on above: Performed By: #### L IPID #### Unless otherwise noted, all testing performed by [place] [address] CLIA: [id number] [employer] Operator: Gary Pedro M.D. Urinalysis, Routineon 2017 Bilirubin,Urine Negative Normal NEG;NEGATI VE [facility] Comment on above: Performed By: #### U A #### Unless otherwise noted, all testing performed by [place] [address] CLIA: [id number] [employer] Operator: Gary Pedro M.D. Blood,Urine Moderate Abnormal NEG;NEGATI VE [facility] Comment on above: Performed By: #### U A #### Unless otherwise noted, all testing performed by [place] [address] CLIA: [id number] [employer] Operator: Gary Pedro M.D. Character Nom (U) Clear Normal [facility] Comment on above: Performed By: #### U A #### Unless otherwise noted, all testing performed by [place] [address] CLIA: [id number] [employer] Operator: Gary Pedro M.D. Color Nom (U) Straw Normal [facility] Comment on above: Performed By: #### U A #### Unless otherwise noted, all testing performed by [place] [phone] CLIA: [id number] [employer] Operator: Gary Pedro M.D. Glucose Ql (U) Negative Normal NEG;NEGATI VE [facility] Comment on above: Performed By: #### U A #### Unless otherwise noted, all testing performed by [place] [phone] CLIA: [id number] [employer] Operator: Gary Pedro M.D. Ketone,Urine Negative Normal NEG;NEGATI VE [facility] Comment on above: Performed By: #### U A #### Unless otherwise noted, all testing performed by [place] [phone] CLIA: [id number] [employer] Operator: Gary Pedro M.D. Leuk.Esterase,Urine Negative Normal Negative [facility] Comment on above: Performed By: #### U A #### Unless otherwise noted, all testing performed by [place] [phone] CLIA: [id number] [employer] Operator: Gary Pedro M.D. Nitrite,Urine Negative Normal NEG;NEGATI VE [facility] Comment on above: Performed By: #### U A #### Unless otherwise noted, all testing performed by [address] [place], [place] [address] CLIA: [id number] Staple She[employer] Operator: Gary Pedro M.D. pH (U) 7.0 [pH] Normal 4.5-8.[address] [facility] Comment on above: Performed By: #### U A #### Unless otherwise noted, all testing performed by [place] [address] CLIA: [id number] St[employer] Operator: Gary Pedro M.D. Protein mass conc (U) Negative Normal NEG;NE GATI VE [facility] Comment on above: Performed By: #### U A #### Unless otherwise noted, all testing performed by [place] [address] CLIA: [id number] Staple [employer] Operator: Gary Pedro M.D. RBC LM.HPF #/area (Urine sed) /[HPF] Normal 0-[address] [facility] Comment on above: Performed By: #### U A #### Unless otherwise noted, all testing performed by [place] [address] CLIA: [id number] St[employer] Operator: Gary Pedro M.D. Specific [place],Urine 1.005 Normal 1.003 -1.[address] [facility] Comment on above: Performed By: #### U A #### Unless otherwise noted, all testing performed by [place] [address] CLIA: [id number] St[employer] Operator: Gary Pedro M.D. Squamous Epithelial < 1 Normal 0-40 [facility] Comment on above: Performed By: #### U A #### Unless otherwise noted, all testing performed by [place] [address] CLIA: [id number] St[employer] Operator: Gary Pedro M.D. Urobilinogen,Urine < 2.0 Normal <2 [facility] Comment on above: Performed By: #### U A #### Unless otherwise noted, all testing performed by [place] [address] CLIA: [id number] Staple She[employer] Operator: Gary Pedro M.D. WBC LM.HPF #/area (Urine sed) /[HPF] Normal 0-[address] [facility] Comment on above: Performed By: #### U A #### Unless otherwise noted, all testing performed by [place] [address] CLIA: [id number] St[employer] Operator: Gary Pedro M.D. Lab Report: CT/NG [facility] BY PCR on 03-28-2017 Chlamydia trachomatis DNA [Presence] in Urine by Probe and target amplification method Negative Invalid Interpretation Code Negative [facility] Neisseria gonorrhoeae presence Negative Invalid Interpretation Code Negative [facility] Microbiology: Culture, Genit al Comprehensiveon 02-11-2017 CUV . Invalid Interpretation Code [facility] GE use only - for LinkLogic import when terms are not otherwise specified . Invalid Interpretation Code [facility] Microbiology: (P) Culture, G enital Comprehensiveon 02-08-2017 CUV . Invalid Interpretation Code [facility] Microbiology: (P) Culture, G enital Comprehensiveon 02-07-2017 CUV . Invalid Interpretation Code [facility] Lab Report: CT/NG [facility] BY PCR on 02-06-2017 Chlamydia trachomatis DNA [Presence] in Urine by Probe and target amplification method Negative Invalid Interpretation Code Negative [facility] Neisseria gonorrhoeae presence Negative Invalid Interpretation Code Negative [facility] Office Visit: Follow up Alexis nguyen 02-06-2017 Documentation of current medications (procedure) Done Invalid Interpretation Code [facility] Tobacco smoking status NHIS Never Invalid Interpretation Code [facility] Tobacco smoking status NHIS Tobacco smoking status NHIS Invalid Interpretation Code [facility] Tobacco use CPHS Never smoker Invalid Interpretation Code [facility] Office Visit: Medication Fol low Upon 10-07-2016 Documentation of current medications (procedure) Done Invalid Interpretation Code [facility] Fall risk assessment No Invalid Interpretation Code [facility] Protein mass conc Done [facility] Tobacco smoking status NHIS Never [facility] Tobacco smoking status NHIS Never smoker [facility] Tobacco use CPHS Never smoker Invalid Interpretation Code [facility] Office Visit: Medication Fol low Upon 04-15-2016 General categories [interpretation] of Cervical or vaginal smear or scraping by Cyto stain Normal Invalid Interpretation Code [facility] Vital Signs Date Time Vital Sign Value Performing Clinician Faci lity 06-03-2024 13:14-0400 Body mass index (BMI) [Ratio] 53.97 kg/m2 Ziyad Harrell MD Work Phone: [facility] 06-03-2024 13:14-0400 Body weight 142.61 kg Ziyad Harrell MD Work Phone: [facility] 06-03-2024 13:14-0400 Diastolic blood pressure 86 mm[Hg] Ziyad Harrell MD Work Phone: [facility] 06-03-2024 13:14-0400 Heart rate 100 /min Ziyad Harrell MD Work Phone: [facility] 06-03-2024 13:14-0400 Respiratory rate 16 /min Ziyad Harrell MD Work Phone: [facility] 06-03-2024 13:14-0400 SaO2% (BldA) [Mass fraction] 99 % Ziyad Harrell MD Work Phone: [facility] 06-03-2024 13:14-0400 Systolic blood pressure 136 mm[Hg] Ziyad Harrell MD Work Phone: [facility] 05-07-2024 08:34-0500 Body height 162.6 cm Demetrius Robertson BROKER IN CHARGE - EXPERIENCE DESIGN DIRECTOR Work Phone: [facility] 05-07-2024 08:34-0500 Body mass index (BMI) [Ratio] 54.61 kg/m2 Demetrius Robertson BROKER IN CHARGE - EXPERIENCE DESIGN DIRECTOR Work Phone: [facility] 05-07-2024 08:34-0500 Body weight 144.31 kg Demetrius Robertson BROKER IN CHARGE - EXPERIENCE DESIGN DIRECTOR Work Phone: [facility] 05-07-2024 08:34-0500 Diastolic blood pressure 86 mm[Hg] Demetrius Robertson BROKER IN CHARGE - EXPERIENCE DESIGN DIRECTOR Work Phone: [facility] 05-07-2024 08:34-0500 Heart rate 83 /min Demetrius Robertson BROKER IN CHARGE - EXPERIENCE DESIGN DIRECTOR Work Phone: [facility] 05-07-2024 08:34-0500 Systolic blood pressure 128 mm[Hg] Demetrius Robertson BROKER IN CHARGE - EXPERIENCE DESIGN DIRECTOR Work Phone: [facility] 03-25-2024 13:30-0500 Body height 162.6 cm Yessi Munoz MD Work Phone: [facility] 03-25-2024 13:30-0500 Body mass index (BMI) [Ratio] 55.44 kg/m2 Yessi Munoz MD Work Phone: [facility] 03-25-2024 13:30-0500 Body weight 146.51 kg Yessi Munoz MD Work Phone: [facility] 03-25-2024 13:30-0500 Diastolic blood pressure 84 mm[Hg] Yessi Munoz MD Work Phone: [facility] 03-25-2024 13:30-0500 Systolic blood pressure 130 mm[Hg] Yessi Munoz MD Work Phone: [facility] 12-27-2024 16:00-0500 Diastolic blood pressure 83 mm[Hg] Yessi Munoz MD Work Phone: [facility] 03-08-2024 16:00-0500 Heart rate 86 /min Yessi Munoz MD Work Phone: [facility] 03-08-2024 16:00-0500 Respiratory rate 16 /min Yessi Munoz MD Work Phone: [facility] 03-08-2024 16:00-0500 SaO2% (BldA) [Mass fraction] 100 % Yessi Munoz MD Work Phone: [facility] 03-08-2024 16:00-0500 Systolic blood pressure 135 mm[Hg] Yessi Munoz MD Work Phone: [facility] 03-08-2024 15:10-0500 Body temperature 97.3 [degF] Yessi Munoz MD Work Phone: [facility] 03-08-2024 13:40-0500 Body height 162.6 cm Yessi Munoz MD Work Phone: [facility] 03-08-2024 13:40-0500 Body mass index (BMI) [Ratio] 54.93 kg/m2 Yessi Munoz MD Work Phone: [facility] 03-08-2024 13:40-0500 Body weight 145.15 kg Yessi Munoz MD Work Phone: [facility] 01-03-2024 11:41-0400 Body height 162.6 cm Yessi Munoz MD Work Phone: [facility] 01-03-2024 11:41-0400 Body mass index (BMI) [Ratio] 59.73 kg/m2 Yessi Munoz MD Work Phone: [facility] 01-03-2024 11:41-0400 Body weight 157.85 kg Yessi Munoz MD Work Phone: [facility] 01-03-2024 11:41-0400 Diastolic blood pressure 86 mm[Hg] Yessi Munoz MD Work Phone: [facility] 01-03-2024 11:41-0400 Systolic blood pressure 138 mm[Hg] Yessi Munoz MD Work Phone: [facility] 06-21-2023 09:02-0400 Body height 162.6 cm Demetrius Jacqueslellan BROKER IN CHARGE - EXPERIENCE DESIGN DIRECTOR Work Phone: [facility] 06-21-2023 09:02-0400 Body mass index (BMI) [Ratio] 55.34 kg/m2 Demetrius Jacqueslellan BROKER IN CHARGE - EXPERIENCE DESIGN DIRECTOR Work Phone: [facility] 06-21-2023 09:02-0400 Body weight 146.24 kg Demetrius Ailyn BROKER IN CHARGE - EXPERIENCE DESIGN DIRECTOR Work Phone: [facility] 06-21-2023 09:02-0400 Diastolic blood pressure 79 mm[Hg] Demetrius Jacqueslellan BROKER IN CHARGE - EXPERIENCE DESIGN DIRECTOR Work Phone: [facility] 06-21-2023 09:02-0400 Heart rate 89 /min Demetrius Jacqueslellan BROKER IN CHARGE - EXPERIENCE DESIGN DIRECTOR Work Phone: [facility] 06-21-2023 09:02-0400 Systolic blood pressure 118 mm[Hg] Demetrius Jacqueslellan BROKER IN CHARGE - EXPERIENCE DESIGN DIRECTOR Work Phone: [facility] 05-10-2023 08:50-0500 Body temperature 97.81 [degF] Surjit Tidwell MD Work Phone: [facility] 05-10-2023 08:50-0500 Body weight 145.06 kg Surjit Tidwell MD Work Phone: [facility] 05-10-2023 08:50-0500 Diastolic blood pressure 88 mm[Hg] Surjit Tidwell MD Work Phone: [facility] 05-10-2023 08:50-0500 Heart rate 88 /min Surjit Tidwell MD Work Phone: [facility] 05-10-2023 08:50-0500 Respiratory rate 21 /min Surjit Tidwell MD Work Phone: [facility] 05-10-2023 08:50-0500 SaO2% (BldA) [Mass fraction] 99 % Surjit Tidwell MD Work Phone: [facility] 05-10-2023 08:50-0500 Systolic blood pressure 124 mm[Hg] Surjit Tidwell MD Work Phone: [facility] 04-26-2023 16:26-0500 Body temperature 97.9 [degF] Krislyn Aberegg PA Work Phone: [facility] 04-26-2023 16:26-0500 Body weight 144.24 kg Krislyn Aberegg PA Work Phone: [facility] 04-26-2023 16:26-0500 Diastolic blood pressure 82 mm[Hg] Krislyn Aberegg PA Work Phone: [facility] 04-26-2023 16:26-0500 Heart rate 76 /min Krislyn Aberegg PA Work Phone: [facility] 04-26-2023 16:26-0500 Respiratory rate 18 /min Krislyn Aberegg PA Work Phone: [facility] 04-26-2023 16:26-0500 SaO2% (BldA) [Mass fraction] 98 % Krislyn Aberegg PA Work Phone: [facility] 04-26-2023 16:26-0500 Systolic blood pressure 138 mm[Hg] Krislyn Aberegg PA Work Phone: [facility] 02-07-2023 00:09-0500 Diastolic blood pressure 85 mm[Hg] No Primary Care Physician [facility] 02-07-2023 00:09-0500 Heart rate 85 /min No Primary Care Physician [facility] 02-07-2023 00:09-0500 Respiratory rate 14 /min No Primary Care Physician [facility] 02-07-2023 00:09-0500 SaO2% (BldA) [Mass fraction] 99 % No Primary Care Physician [facility] 02-07-2023 00:09-0500 Systolic blood pressure 160 mm[Hg] No Primary Care Physician [facility] 02-06-2023 20:47-0500 Body height 162.56 cm No Primary Care Physician [facility] 02-06-2023 20:47-0500 Body mass index (BMI) [Ratio] 53.1 kg/m2 No Primary Care Physician [facility] 02-06-2023 20:47-0500 Body temperature 97.8 [degF] No Primary Care Physician [facility] 02-06-2023 20:47-0500 Body weight 140.61 kg No Primary Care Physician [facility] 12-15-2022 17:11-0400 Body mass index (BMI) [Ratio] 53.9 kg/m2 No Primary Care Physician [facility] 12-15-2022 17:11-0400 Body temperature 98.4 [degF] No Primary Care Physician [facility] 12-15-2022 17:11-0400 Body weight 142.65 kg No Primary Care Physician [facility] 12-15-2022 17:11-0400 Diastolic blood pressure 80 mm[Hg] No Primary Care Physician [facility] 12-15-2022 17:11-0400 Heart rate 70 /min No Primary Care Physician [facility] 12-15-2022 17:11-0400 Respiratory rate 18 /min No Primary Care Physician [facility] 12-15-2022 17:11-0400 SaO2% (BldA) [Mass fraction] 97 % No Primary Care Physician [facility] 12-15-2022 17:11-0400 Systolic blood pressure 150 mm[Hg] No Primary Care Physician [facility] 07-08-2022 13:22-0400 Body height 162.6 cm Demetrius Vogel CNP Work Phone: [facility] 07-08-2022 13:22-0400 Body mass index (BMI) [Ratio] 55 kg/m2 Demetrius Robertson APRN - ALEJANDRO Work Phone: [facility] 07-08-2022 13:22-0400 Body weight 145.33 kg Demetrius Robertson BROKER IN CHARGE - EXPERIENCE DESIGN DIRECTOR Work Phone: [facility] 07-08-2022 13:22-0400 Diastolic blood pressure 96 mm[Hg] Demetrius Robertson BROKER IN CHARGE - EXPERIENCE DESIGN DIRECTOR Work Phone: [facility] 07-08-2022 13:22-0400 Heart rate 71 /min Demetrius Robertson BROKER IN CHARGE - EXPERIENCE DESIGN DIRECTOR Work Phone: [facility] 07-08-2022 13:22-0400 Systolic blood pressure 132 mm[Hg] Demetruis Robertson BROKER IN CHARGE - EXPERIENCE DESIGN DIRECTOR Work Phone: [facility] 06-07-2022 14:02-0400 Body temperature 98.49 [degF] Senait Barron APRN.EXPERIENCE DESIGN DIRECTOR Work Phone: [facility] 06-07-2022 14:02-0400 Body weight 145.15 kg Senait Barron APRN.EXPERIENCE DESIGN DIRECTOR Work Phone: [facility] 06-07-2022 14:02-0400 Diastolic blood pressure 82 mm[Hg] Senait Barron APRN.EXPERIENCE DESIGN DIRECTOR Work Phone: [facility] 06-07-2022 14:02-0400 Heart rate 94 /min Senait Barron APRN.EXPERIENCE DESIGN DIRECTOR Work Phone: [facility] 06-07-2022 14:02-0400 Respiratory rate 18 /min Senait Barron APRN.EXPERIENCE DESIGN DIRECTOR Work Phone: [facility] 06-07-2022 14:02-0400 SaO2% (BldA) [Mass fraction] 98 % Senait Barron APRN.EXPERIENCE DESIGN DIRECTOR Work Phone: [facility] 06-07-2022 14:02-0400 Systolic blood pressure 124 mm[Hg] Senait Barron APRN.EXPERIENCE DESIGN DIRECTOR Work Phone: [facility] 03-02-2022 14:35-0500 Body height 162.6 cm Gabe Matthew BROKER IN CHARGE.EXPERIENCE DESIGN DIRECTOR Work Phone: [facility] 03-02-2022 14:35-0500 Body temperature 98.2 [degF] Gabe Matthew BROKER IN CHARGE.EXPERIENCE DESIGN DIRECTOR Work Phone: [facility] 03-02-2022 14:35-0500 Body weight 139.71 kg Gabe Matthew BROKER IN CHARGE.EXPERIENCE DESIGN DIRECTOR Work Phone: [facility] 03-02-2022 14:35-0500 Diastolic blood pressure 78 mm[Hg] Gabe Matthew BROKER IN CHARGE.EXPERIENCE DESIGN DIRECTOR Work Phone: [facility] 03-02-2022 14:35-0500 Heart rate 82 /min Gabe Matthew BROKER IN CHARGE.EXPERIENCE DESIGN DIRECTOR Work Phone: [facility] 03-02-2022 14:35-0500 Respiratory rate 24 /min Gabe Matthew BROKER IN CHARGE.EXPERIENCE DESIGN DIRECTOR Work Phone: [facility] 03-02-2022 14:35-0500 SaO2% (BldA) [Mass fraction] 99 % Gabe Matthew BROKER IN CHARGE.EXPERIENCE DESIGN DIRECTOR Work Phone: [facility] 03-02-2022 14:35-0500 Systolic blood pressure 110 mm[Hg] Gabe Matthew BROKER IN CHARGE.[facility] Work Phone: [facility] 01-10-2022 01:07-0400 Diastolic blood pressure 60 mm[Hg] [facility] Work Phone: 01-10-2022 01:07-0400 Heart rate 110 /min [facility] Work Phone: 01-10-2022 01:07-0400 Respiratory rate 18 /min [facility] Work Phone: 01-10-2022 01:07-0400 SaO2% (BldA) [Mass fraction] 99 % [facility] Work Phone: 01-10-2022 01:07-0400 Systolic blood pressure 140 mm[Hg] [facility] Work Phone: 01-09-2022 22:24-0400 Body height 162.[address] [facility] Work Phone: 01-09-2022 22:24-0400 Body mass index (BMI) [Ratio] 53 kg/m2 [facility] Work Phone: 01-09-2022 22:24-0400 Body temperature 97.4 [degF] [facility] Work Phone: 01-09-2022 22:24-0400 Body weight 140.[address] [facility] Work Phone: 11-03-2021 21:50-0400 Body height 162.[address] [facility] Work Phone: 11-03-2021 21:50-0400 Body mass index (BMI) [Ratio] 54.7 kg/m2 [facility] Work Phone: 11-03-2021 21:50-0400 Body temperature 97.7 [degF] [facility] Work Phone: 11-03-2021 21:50-0400 Body weight 144.[address] [facility] Work Phone: 11-03-2021 21:50-0400 Diastolic blood pressure 95 mm[Hg] [facility] Work Phone: 11-03-2021 21:50-0400 Heart rate 93 /min [facility] Work Phone: 11-03-2021 21:50-0400 Respiratory rate 15 /min [facility] Work Phone: 11-03-2021 21:50-0400 SaO2% (BldA) [Mass fraction] 99 % [facility] Work Phone: 11-03-2021 21:50-0400 Systolic blood pressure 179 mm[Hg] [facility] Work Phone: 10-19-2021 06:05-0400 Body temperature 97.8 [degF] [facility] Work Phone: 10-19-2021 06:05-0400 Diastolic blood pressure 80 mm[Hg] [facility] Work Phone: 10-19-2021 06:05-0400 Heart rate 75 /min [facility] Work Phone: 10-19-2021 06:05-0400 Respiratory rate 19 /min [facility] Work Phone: 10-19-2021 06:05-0400 SaO2% (BldA) [Mass fraction] 98 % [facility] Work Phone: 10-19-2021 06:05-0400 Systolic blood pressure 136 mm[Hg] [facility] Work Phone: 10-18-2021 14:55-0400 Body height 162.[address] [facility] Work Phone: 10-18-2021 14:55-0400 Body mass index (BMI) [Ratio] 50.8 kg/m2 [facility] Work Phone: 10-18-2021 14:55-0400 Body weight 134.[address] [facility] Work Phone: 08-02-2021 21:36-0400 Body height 162.[address] [facility] Work Phone: 08-02-2021 21:36-0400 Body mass index (BMI) [Ratio] 52 kg/m2 [facility] Work Phone: 08-02-2021 21:36-0400 Body temperature 98.7 [degF] [facility] Work Phone: 08-02-2021 21:36-0400 Body weight 137.[address] [facility] Work Phone: 08-02-2021 21:36-0400 Diastolic blood pressure 91 mm[Hg] [facility] Work Phone: 08-02-2021 21:36-0400 Heart rate 91 /min [facility] Work Phone: 08-02-2021 21:36-0400 Respiratory rate 20 /min [facility] Work Phone: 08-02-2021 21:36-0400 SaO2% (BldA) [Mass fraction] 97 % [facility] Work Phone: 08-02-2021 21:36-0400 Systolic blood pressure 160 mm[Hg] [facility] Work Phone: 07-09-2021 19:23-0400 Body temperature 97.81 [degF] Bela Praisler-Wood BROKER IN CHARGE.EXPERIENCE DESIGN DIRECTOR Work Phone: [facility] 07-09-2021 19:23-0400 Body weight 137.08 kg Bela Praisler-Wood BROKER IN CHARGE.EXPERIENCE DESIGN DIRECTOR Work Phone: [facility] 07-09-2021 19:23-0400 Diastolic blood pressure 82 mm[Hg] Bela Praisler-Wood BROKER IN CHARGE.EXPERIENCE DESIGN DIRECTOR Work Phone: [facility] 07-09-2021 19:23-0400 Heart rate 101 /min Bela Praisler-Wood BROKER IN CHARGE.EXPERIENCE DESIGN DIRECTOR Work Phone: [facility] 07-09-2021 19:23-0400 Respiratory rate 16 /min Bela Praisler-Wood BROKER IN CHARGE.EXPERIENCE DESIGN DIRECTOR Work Phone: [facility] 07-09-2021 19:23-0400 SaO2% (BldA) [Mass fraction] 99 % Bela Praisler-Wood BROKER IN CHARGE.EXPERIENCE DESIGN DIRECTOR Work Phone: [facility] 07-09-2021 19:23-0400 Systolic blood pressure 128 mm[Hg] Bela Praisler-Wood BROKER IN CHARGE.EXPERIENCE DESIGN DIRECTOR Work Phone: [facility] 02-06-2017 10:16-0500 BMI (Body Mass Index) 53.49 kg/m2 Sheyla Foster MD [facility] 02-06-2017 10:16-0500 BP Diastolic 79 mm[Hg] Sheyla Foster MD [facility] 02-06-2017 10:16-0500 BP Systolic 123 mm[Hg] Sheyla Foster MD [facility] 02-06-2017 10:16-0500 Height 160.02 cm Sheyla Foster MD [facility] 02-06-2017 10:16-0500 Weight 136.98 kg Sheyla Foster MD [facility] 02-06-2017 10:16-0500 Weight 136.99 kg Sheyla Foster MD [facility] 10-07-2016 14:26-0400 BMI (Body Mass Index) 54.2 kg/m2 Sheyla Foster MD [facility] 10-07-2016 14:26-0400 Body Temperature 98.2 [degF] Sheyla Foster MD [facility] 10-07-2016 14:26-0400 BP Diastolic 87 mm[Hg] Sheyla Foster MD [facility] 10-07-2016 14:26-0400 BP Systolic 131 mm[Hg] Sheyla Foster MD [facility] 10-07-2016 14:26-0400 Height 160.02 cm Sheyla Foster MD [facility] 10-07-2016 14:26-0400 Pulse (Heart Rate) 88 /min Sheyla Foster MD [facility] 10-07-2016 14:26-0400 Respiratory Rate 17 /min Sheyla Foster MD [facility] 10-07-2016 14:26-0400 Weight 138.8 kg Sheyla Foster MD [facility] 07-04-2013 13:54-0400 BSA (Body Surface Area) 2.24 m2 Sheyla Foster MD [facility] Encounters Encounter Date Encounter Type Care Provider Facility Start: 08-06-2024 End: 08-06-2024 ambulatory ZIYAD HARRELL Facility:[facility] Start: 06-13-2024 ambulatory YESSI TAMMY [facility] Start: 06-13-2024 End: 06-15-2024 Evaluation and management of inpatient YADIRAPAM LJ [facility] Start: 06-13-2024 End: 06-13-2024 ambulatory YESSI MUNOZ [facility] Start: 06-12-2024 End: 06-12-2024 Telephone encounter Yessi Munoz MD Work Phone: [facility] Obstetrics and Gynecology - [place] Comment on above: Surgery Scheduling Start: 06-03-2024 End: 06-03-2024 ambulatory YESSI MUNOZ Facility:[facility] Start: 06-03-2024 End: 06-03-2024 Patient encounter procedure Ziyad Harrell MD Work Phone: Endocrinology Comment on above: Class 3 severe obesi ty due to excess calories without serious comorbidity with body mass index (BMI) of 50.0 to 59.9 in adult (HCC) (Primary Dx); PCOS (polycystic ovarian syndrome) Start: 05-07-2024 End: 05-07-2024 Office outpatient visit 15 minutes Demetrius Vogel CNP Work Phone: [facility] Neuroscience [place] Comment on above: 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 Start: 04-18-2024 End: 04-19-2024 Telephone encounter Esteban Leyva LPN [facility] Clinical Communication Comment on above: Other (Pt calling ne eds referral sent to [facility] for endocrinology phone number is [phone]./Please send referral this is closer to her home//Please advise) Other (Pt calling ne eds referral sent to [facility] for endocrinology phone number is [phone]./Please send referral this is closer to her home//Please advise); Referral (Patient states she could not get into [place] and would like the order sent to Dr. Ziyad Harrell at [facility] [address] [facility] [phone]) Start: 03-28-2024 End: 03-28-2024 Telephone encounter Elton Cherry MD Work Phone: [facility] Endocrinology - [place] Comment on above: Other (Referral ) Start: 03-25-2024 End: 03-25-2024 Office outpatient visit 25 minutes Yessi Munoz MD Work Phone: [facility] Obstetrics and Gynecology [facility] Comment on above: PCOS (polycystic ova maddison syndrome) (Primary Dx); Endometrial hyperplasia Start: 03-25-2024 End: 03-25-2024 ambulatory YESSI MUNOZ [facility] Start: 03-14-2024 End: 03-14-2024 Telephone encounter Demetrius Vogel CNP Work Phone: [facility] Neuroscience [facility] Start: 03-11-2024 End: 03-13-2024 Refill Yessi Munoz MD Work Phone: [facility] PRE PROCEDURE Start: 03-08-2024 End: 03-08-2024 ambulatory Yessi Munoz MD Work Phone: [facility]EDURE Start: 03-08-2024 End: 03-08-2024 Subsequent hospital visit by physician Yessi Munoz MD Work Phone: [facility] Comment on above: Excessive bleeding i n the premenopausal period Start: 03-04-2024 End: 03-04-2024 ambulatory YESSI MUNOZ [facility] Start: 02-26-2024 End: 02-26-2024 Telephone encounter Yessi Munoz MD Work Phone: [facility] Gynecologic Oncology - [place] Comment on above: Other (Surgery sched [facility] office) Start: 02-05-2024 End: 02-06-2024 Orders Only Yessi Munoz MD Work Phone: [facility] PRE PROCEDURE Start: 01-24-2024 End: 01-25-2024 ambulatory Jose Villagomez RN [facility] Clinical Communication Start: 01-24-2024 End: 01-25-2024 Patient encounter procedure Jose Villagomez RN [facility] Clinical Communication Start: 01-23-2024 End: 01-23-2024 ambulatory YESSI [facility] Start: 01-18-2024 End: 01-18-2024 Telephone encounter Yessi Munoz MD Work Phone: [facility] Comment on above: Results Start: 01-08-2024 End: 01-08-2024 ambulatory Katja Briggs RN [facility] Clinical Communication Start: 01-08-2024 End: 01-08-2024 Patient encounter procedure Katja Briggs RN [facility] Clinical Communication Start: 01-05-2024 End: 01-05-2024 ambulatory NEHEMIAS GRETAPANFILO Facility:[facility] Start: 01-03-2024 End: 01-03-2024 Office outpatient visit 25 minutes Yessi Munoz MD Work Phone: [facility] Comment on above: Excessive bleeding i n premenopausal period (Primary Dx) Start: 01-03-2024 End: 01-03-2024 ambulatory [facility] Start: 12-14-2023 End: 12-14-2023 [facility] Facility:[facility] Start: 10-08-2023 End: 10-08-2023 Emergency department patient visit Uday Almaraz Facility:[facility] Start: 09-27-2023 Telephone encounter Anthonymariusz Khan is DO Work Phone: [facility] Comment on above: Insurance Authorizat ion Start: 09-22-2023 ambulatory Chalon Lj Facility:[facility] Start: 09-22-2023 End: 09-23-2023 Evaluation and management of inpatient Jones Toscano Facility:[facility] Start: 09-08-2023 Telephone encounter Anthonymariusz Khan is Work Phone: [facility] Comment on above: Insurance Authorizat ion (Prior Auth Delayed: Additional Info Needed) Start: 08-25-2023 Telephone encounter Anthony Khan is DO Work Phone: Orthopaedics Comment on above: Gel One referral Start: 08-25-2023 End: 08-25-2023 Patient encounter procedure Anthony Garvin DO Work Phone: Family Medicine [place] Comment on above: Osteoarthritis of ri ght knee, unspecified osteoarthritis type (Primary Dx) Start: 08-25-2023 End: 08-25-2023 ambulatory ANTHONY GARVIN Facility:[facility] Start: 08-25-2023 End: 08-25-2023 Subsequent hospital visit by physician Xr [facility] [place] Work Phone: Radiology Comment on above: Right knee pain, uns pecified chronicity [M25.561] Start: 08-15-2023 Orders Only Anthony Araujo O Work Phone: Orthopaedics Comment on above: Right knee pain, uns pecified chronicity (Primary Dx) Start: 08-09-2023 End: 08-09-2023 ambulatory [facility] Facility: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, not intractable, without status epilepticus (HCC) (Primary Dx) Start: 06-21-2023 End: 06-21-2023 [facility] Start: 05-10-2023 End: 05-10-2023 Patient encounter procedure Surjit Tidwell MD Work Phone: [facility] Comment on above: Sore throat (Primary Dx); Papule of skin Start: 04-26-2023 End: 04-26-2023 Patient encounter procedure Jose MUELLER Work Phone: [facility] Comment on above: Sinobronchitis (Prim teresa Dx); Acute otitis media, left Start: 04-17-2023 Refill Demetrius sanchez BROKER IN CHARGE - EXPERIENCE DESIGN DIRECTOR Work Phone: [facility] Expert [facility]science Start: 02-14-2023 ambulatory Aubrie Rich [facility] [place] Comment on above: Population Health Na vigation Outreach (Peters Attribution Member- Chart review) Start: 02-06-2023 End: 02-07-2023 Emergency department patient visit No Primary Care Physician [facility] Work Phone: Start: 12-15-2022 End: 12-15-2022 Patient encounter procedure No Primary Care Physician [facility] Work Phone: Start: 11-29-2022 Refill Demetrius sanchez BROKER IN CHARGE - EXPERIENCE DESIGN DIRECTOR Work Phone: [facility] Start: 09-05-2022 ambulatory Gabe chiang BROKER IN CHARGE.EXPERIENCE DESIGN DIRECTOR Work Phone: [facility] Start: 07-22-2022 ambulatory Gabe Todd el BROKER IN CHARGE.EXPERIENCE DESIGN DIRECTOR Work Phone: [facility] Comment on above: Allied Health Visit (Medication Adherence Outreach/) Start: 07-13-2022 Telephone encounter Anderson soni MD Work Phone: [facility]science Comment on above: Lab work ; Release o f Information Start: 07-08-2022 End: 07-08-2022 Office outpatient visit 15 minutes Demetrius Robertson BROKER IN CHARGE - EXPERIENCE DESIGN DIRECTOR Work Phone: [facility] Comment on above: 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 Comment on above: Rhinosinusitis (Prim teresa Dx) Start: 03-25-2022 Telephone encounter Yessi Munoz MD Work Phone: [facility] [place] [employer]GER [employer] Comment on above: Cancelled Appointmen t (03.30.22 / insurance issues) Start: 03-02-2022 Encounter for genera l adult medical examination without abnormal findings GABEDWAINE PIERRE [facility] Start: 03-02-2022 End: 03-02-2022 ambulatory GABE PIERRE [facility] Start: 03-02-2022 End: 03-02-2022 Patient encounter procedure Gabe Pierre BROKER IN CHARGE.EXPERIENCE DESIGN DIRECTOR Work Phone: [facility] Comment on above: Encounter for medica l examination to establish care (Primary Dx); Rash of face; Moderate episode of recurrent major depressive disorder (HCC); PCOS (polycystic ovarian syndrome); Generalized tonic clonic epilepsy (HCC) Start: 03-02-2022 End: 03-02-2022 Patient encounter status Gabe Pierre BROKER IN CHARGE.EXPERIENCE DESIGN DIRECTOR Work Phone: [facility] Start: 02-28-2022 Telephone encounter Gabe Pierre BROKER IN CHARGE.EXPERIENCE DESIGN DIRECTOR Work Phone: [facility] Comment on above: Appointment Start: 02-24-2022 Telephone encounter Gabe Pierre BROKER IN CHARGE.EXPERIENCE DESIGN DIRECTOR Work Phone: [facility] Comment on above: Patient Question Start: 01-21-2022 End: 01-21-2022 Patient encounter procedure Anthony Garvin DO Work Phone: [facility] [place] Comment on above: Contusion of right l ower extremity, subsequent encounter (Primary Dx); Prepatellar bursitis, right knee Start: 01-09-2022 End: 01-10-2022 Emergency department patient visit [facility] Start: 11-03-2021 End: 11-03-2021 Emergency department patient visit [facility] Start: 10-18-2021 End: 10-19-2021 Emergency department patient visit [facility] Start: 09-27-2021 Telephone encounter Katerine zazueta BROKER IN CHARGE.EXPERIENCE DESIGN DIRECTOR Work Phone: OB/Gynecology Comment on above: Results Start: 08-05-2021 ambulatory Soha Mathew [facility] [place] Comment on above: Population Health Na vigation Outreach (Peters Attribution Care Gaps) Start: 08-02-2021 End: 08-02-2021 Emergency department patient visit [facility] Start: 07-09-2021 End: 07-09-2021 Patient encounter procedure Bela PembertonLelaPranay [facility] Work Phone: [facility] Comment on above: TMJ pain [...] End: 10-20-2020 Subsequent hospital visit by physician Xr [facility] Work Phone: Radiology Comment on above: Right knee injury, i nitial encounter [S89.91XA] Start: 11-17-2017 End: 11-23-2017 Evaluation and management of inpatient [facility] Facility:[facility] Date Procedure Procedure Detail Performing Clinician Start: 03-08-2024 End: 03-08-2024 Hysteroscopy bx endometrium&/polypc w/wo d&c Yessi Munoz MD Work Phone: Start: 05-10-2023 STREP A MOLECULAR (POC) Surjit Tidwell MD Work Phone: Start: 02-06-2023 Plain chest X-ray No Primary Care Physician Start: 01-09-2022 CT of head without contrast Start: 12-22-2021 Microscopic observation [Identifier] in Cervix by Cyto stain Yessi Munoz MD Work Phone: Start: 12-23-2020 Gonadotropin follicle stimulating hormone Yessi Munoz MD Work Phone: Start: 10-28-2020 Glucose quantitative blood xcpt reagent strip Yessi Munoz MD Work Phone: Start: 10-20-2020 Radiologic exam knee complete 4/more views Luisa Khoury PA-C Work Phone: Start: 01-29-2018 Adult depression screening assessment Bela Joseph APRN.CNP Work Phone: Start: 11-17-2017 Lipid 1996 panel - Serum or Plasma Yessi Munoz MD Work Phone: Start: 02-06-2017 End: 02-06-2017 [...] (choriogonadotropin presence) Sheyla Foster MD Work Phone: Viral antigen assay Plan of Treatment Date Care Activity Detail Author Start: 06-15-2058 RSV Immunization for Adults (1 - 1-dose 75+ series) RSV Immunization for Adults (1 - 1-dose 75+ series) [facility] Start: 2043 RSV Immunization aged 60 or older (1 - 1-dose 60+ series) RSV Immunization aged 60 or older (1 - 1-dose 60+ series) [facility] Start: 06-15-2033 Zoster Vaccines (1 of 2) Zoster Vaccines (1 of 2) [facility] Start: 01-30-2028 DTaP/Tdap/Td vaccine (3 - Td or Tdap) DTaP/Tdap/Td vaccine (3 - Td or Tdap) [facility] Work Phone: Start: 01-30-2028 DTaP/Tdap/Td Vaccines (3 - Td or Tdap) DTaP/Tdap/Td Vaccines (3 - Td or Tdap) [facility] Start: 01-30-2028 [facility] Start: 10-11-2026 HPV TESTING HPV TESTING [facility] Start: 10-11-2026 PAP TESTING PAP TESTING [facility] Start: 10-11-2026 Screening for malignant neoplasm of cervix [facility] Start: 05-07-2025 End: 05-07-2025 Patient encounter procedure 05/07/2025 2:00 PM EST Office Visit [facility] [address] [facility] [address] [place] [address] Demetrius Robertson, FRANCO - EXPERIENCE DESIGN DIRECTOR [address] [place] [address] [facility] Start: 12-22-2024 Screening for malignant neoplasm of cervix [facility] Start: 12-13-2024 Depression Monitoring Depression Monitoring [facility] Start: 11-11-2024 Influenza vaccination Influenza Vaccine (Season Ended) [facility] Start: 09-03-2024 End: 12-03-2024 Cortisol [Mass/volume] in Serum or Plasma --post dose dexamethasone CORTISOL SUPRES POST Lab Routine Class 3 severe obesity due to excess calories without serious comorbidity with body mass index (BMI) of 50.0 to 59.9 in adult (HCC) PCOS (polycystic ovarian syndrome) Expected: 09/03/2024, Expires: 12/03/2024 [facility] Comment on above: Expected: 09/03/2024, Expires: Start: 09-03-2024 End: 12-03-2024 DEXAMETHASONE DEXAMETHASONE Lab Routine Class 3 severe obesity due to excess calories without serious comorbidity with body mass index (BMI) of 50.0 to 59.9 in adult (HCC) PCOS (polycystic ovarian syndrome) Expected: 09/03/2024, Expires: 12/03/2024 [facility] Comment on above: Expected: 09/03/2024, Expires: Start: 09-03-2024 End: 09-03-2024 Patient encounter procedure 09/03/2024 11:20 AM EDT Office Visit Endocrinology [address] [place] [id number] Ziyad Harrell MD [address] [place] [address] 3 MTH F/U Endocrinology Comment on above: 3 MTH F/U Start: 08-02-2024 End: 11-01-2024 17-Hydroxyprogesterone [Mass/volume] in Serum or Plasma HYDROXYPROGESTERONE-17 Lab Routine Class 3 severe obesity due to excess calories without serious comorbidity with body mass index (BMI) of 50.0 to 59.9 in adult (HCC) PCOS (polycystic ovarian syndrome) Expected: 08/02/2024, Expires: 11/01/2024 [facility] Work Phone: Comment on above: Expected: 08/02/2024, Expires: Start: 08-02-2024 End: 11-01-2024 DHEA-S BLD DHEA-S BLD Lab Routine Class 3 severe obesity due to excess calories without serious comorbidity with body mass index (BMI) of 50.0 to 59.9 in adult (HCC) PCOS (polycystic ovarian syndrome) Expected: 08/02/2024, Expires: 11/01/2024 [facility] Comment on above: Expected: 08/02/2024, Expires: Start: 08-02-2024 End: 11-01-2024 Estradiol (E2) [Mass/volume] in Serum or Plasma ESTRADIOL-17B BLD Lab Routine Class 3 severe obesity due to excess calories without serious comorbidity with body mass index (BMI) of 50.0 to 59.9 in adult (HCC) PCOS (polycystic ovarian syndrome) Expected: 08/02/2024, Expires: 11/01/2024 [facility] Comment on above: Expected: 08/02/2024, Expires: Start: 08-02-2024 End: 11-01-2024 Follitropin [Units/volume] in Serum or Plasma FOLLICLE STIMULATING HORMONE Lab Routine Class 3 severe obesity due to excess calories without serious comorbidity with body mass index (BMI) of 50.0 to 59.9 in adult (HCC) PCOS (polycystic ovarian syndrome) Expected: 08/02/2024, Expires: 11/01/2024 [facility] Comment on above: Expected: 08/02/2024, Expires: Start: 08-02-2024 End: 11-01-2024 Lutropin [Units/volume] in Serum or Plasma LUTEINIZING HORMONE Lab Routine Class 3 severe obesity due to excess calories without serious comorbidity with body mass index (BMI) of 50.0 to 59.9 in adult ([facility]) PCOS (polycystic ovarian syndrome) Expected: 08/02/2024, Expires: 11/01/2024 [facility] Comment on above: Expected: 08/02/2024, Expires: Start: 08-02-2024 End: 11-01-2024 Prolactin [Mass/volume] in Serum or Plasma PROLACTIN Lab Routine Class 3 severe obesity due to excess calories without serious comorbidity with body mass index (BMI) of 50.0 to 59.9 in adult ([facility]) PCOS (polycystic ovarian syndrome) Expected: 08/02/2024, Expires: 11/01/2024 [facility] Comment on above: Expected: 08/02/2024, Expires: Start: 08-02-2024 End: 11-01-2024 TESTOSTERONE, BIOAVAILABLE AND TOTAL BY MS (ADULT FEMALES, CHILDREN, OR INDIVIDUALS ON TESTOSTERONE-SUPPRESSING THERAPY) TESTOSTERONE, BIOAVAILABLE AND TOTAL BY MS (ADULT FEMALES, CHILDREN, OR INDIVIDUALS ON TESTOSTERONE-SUPPRESSING THERAPY) Lab Routine Class 3 severe obesity due to excess calories without serious comorbidity with body mass index (BMI) of 50.0 to 59.9 in adult ([facility]) PCOS (polycystic ovarian syndrome) Expected: 08/02/2024, Expires: 11/01/2024 [facility] Comment on above: Expected: 08/02/2024, Expires: Start: 08-02-2024 End: 11-01-2024 Thyrotropin [Units/volume] in Serum or Plasma THYROID STIMULATING HORMONE Lab Routine Class 3 severe obesity due to excess calories without serious comorbidity with body mass index (BMI) of 50.0 to 59.9 in adult ([facility]) PCOS (polycystic ovarian syndrome) Expected: 08/02/2024, Expires: 11/01/2024 [facility] Comment on above: Expected: 08/02/2024, Expires: Start: 08-02-2024 End: 11-01-2024 Thyroxine (T4) free [Mass/volume] in Serum or Plasma T4 FREE/FREE THYROXINE Lab Routine Class 3 severe obesity due to excess calories without serious comorbidity with body mass index (BMI) of 50.0 to 59.9 in adult ([facility]) PCOS (polycystic ovarian syndrome) Expected: 08/02/2024, Expires: 11/01/2024 [facility] Comment on above: Expected: 08/02/2024, Expires: Start: 07-02-2024 End: 07-02-2024 Patient encounter procedure 07/02/2024 1:30 PM EDT Office Visit [facility] Obstetrics and Gynecology [facility] [address] [facility] [address] [place] [address] Yessi Munoz MD [address] [place] [id number] [facility] Start: 06-19-2024 End: 06-19-2024 Admission to same day surgery center 06/19/2024 7:30 AM EDT - 06/19/2024 8:30 AM EDT Surgery [facility] MA[facility] OR [address] [place] [address] Yessi Munoz MD [address] [place], [place] [id number] HYSTEROSCOPY DILATION AND CURETTAGE [96312 (CPT )] [facility] MAIN OR Comment on above: HYSTEROSCOPY DILATION AND CURETTAGE [585 16 (CPT )] Start: 06-19-2024 End: 06-19-2024 Anesthesia consultation 06/19/2024 7:30 AM EDT Anesthesia Event [facility] MAIN OR [address] [place] [address] Rafia Caceres PA-C [address] [place] [address] [facility] MAIN OR Start: 06-19-2024 End: 06-19-2024 Hysteroscopy bx endometrium&/polypc w/wo d&c DILATION AND CURETTAGE Endometrial hyperplasia, unspecified 06/19/2024 7:30 AM EDT [facility] Operating Room Start: 06-19-2024 Subsequent hospital visit by physician 06/19/2024 7:30 AM EDT Hospital Encounter [facility] MAIN OR [address] [place] [phone] Yessi Munoz MD [address] [place] [address] [facility] MAIN OR Start: 06-13-2024 End: 06-13-2024 Admission to establishment 06/13/2024 2:00 PM EDT Pre-Admission Testing [facility] Pre-Admit Testing [address] [place] [phone] [facility] Pre-Admit Testing Start: 06-12-2024 End: 06-12-2024 Anesthesia consultation 06/12/2024 11:59 PM EDT Anesthesia Event [facility] MAIN OR [address] [place] [phone] Rafia Caceres PA-C [address] [place] [address] [facility] MAIN OR Start: 06-12-2024 End: 06-12-2024 Admission to establishment 06/12/2024 11:00 AM EDT Pre-Admission Testing [facility] Pre-Admit Testing [address] [place] [phone] [facility] Pre-Admit Testing Start: 05-07-2024 End: 05-07-2024 Patient encounter procedure 05/07/2024 8:30 AM EST Office Visit [facility] [address] [facility] [address] [place] [address] Demetrius Robertson, FRANCO - ALEJANDRO [address] [facility] [address] [place] [address] [facility] Start: 04-23-2024 End: 04-23-2024 Patient encounter procedure [facility] Start: 03-25-2024 End: 03-25-2024 Patient encounter procedure 03/25/2024 1:45 PM EST Office Visit [facility] Obstetrics and Gynecology [facility] [address] [facility] [address] [place] [phone] Yessi Munoz MD [address] [place] [address] [facility] Obstetrics and Gynecology [facility] Start: 03-18-2024 End: 03-18-2024 Patient encounter procedure 03/18/2024 1:15 PM EST Office Visit [facility] Obstetrics [facility] [address] [facility] [address] [place] [phone] Yessi Munoz MD [address] [place] [address] [facility] Obstetrics [facility] Start: 03-13-2024 Medicare Advantage Annual Wellness Visit Medicare Advantage Annual Wellness Visit [facility] Start: 03-08-2024 End: 03-08-2024 Admission to same day surgery center 03/08/2024 3:00 PM EST - 03/08/2024 4:00 PM EST Surgery [facility] MAIN OR [address] [place] [phone] Yessi Munoz MD [address] [place] [address] HYSTEROSCOPY DILATION AND CURETTAGE [45009 (CPT )] [facility] MAIN OR Comment on above: HYSTEROSCOPY DILATION AND CURETTAGE [585 83 (CPT )] Start: 03-08-2024 Subsequent hospital visit by physician 03/08/2024 3:00 PM EST Hospital Encounter [facility] MAIN OR [address] [place] [phone] Yessi Munoz MD [address] [place] [address] [facility] MAIN OR Start: 03-08-2024 End: 03-08-2024 Hysteroscopy bx endometrium&/polypc w/wo d&c [facility] Operating Room Start: 03-04-2024 End: 03-04-2024 Admission to establishment 03/04/2024 9:00 AM EST Pre-Admission Testing [facility] Pre-Admit Testing [address] [place] [address] [facility] Pre-Admit Testing Start: 02-14-2024 End: 02-14-2024 Patient encounter procedure 02/14/2024 11:00 AM EST Procedure Visit [address] [place] [phone] Yessi Munoz MD [address] [place] [address] [facility] Start: 02-07-2024 End: 02-07-2024 Patient encounter procedure 02/07/2024 11:15 AM EST Procedure Visit [address] [place] [address] Yessi Munoz MD [address] [place] [address] [facility] Start: 01-23-2024 End: 01-23-2024 Patient encounter procedure 01/23/2024 11:00 AM EST Office Visit [address] [place] [address] [facility] Start: 01-03-2024 End: 01-02-2025 17-Hydroxyprogesterone 17-Hydroxyprogesterone Lab Routine Excessive bleeding in premenopausal period Expected: 01/03/2024 (Approximate), Expires: 01/02/2025 [facility] Work Phone: Comment on above: Expected: 01/03/2024 (Approximate), Expi res: 01/02/2025 Start: 01-03-2024 End: 01-02-2025 CBC panel - Blood by Automated count CBC Lab Routine Excessive bleeding in premenopausal period Expected: 01/03/2024 (Approximate), Expires: 01/02/2025 [facility] Comment on above: Expected: 01/03/2024 (Approximate), Expi res: 01/02/2025 Start: 01-03-2024 End: 01-02-2025 DHEA-sulfate DHEA-sulfate Lab Routine Excessive bleeding in premenopausal period Expected: 01/03/2024 (Approximate), Expires: 01/02/2025 [facility] Comment on above: Expected: 01/03/2024 (Approximate), Expi res: 01/02/2025 Start: 01-03-2024 End: 01-02-2025 Glucose [Mass/volume] in Serum or Plasma Glucose, random Lab Routine Excessive bleeding in premenopausal period Expected: 01/03/2024 (Approximate), Expires: 01/02/2025 [facility] Comment on above: Expected: 01/03/2024 (Approximate), Expi res: 01/02/2025 Start: 01-03-2024 End: 01-02-2025 hCG, quantitative hCG, quantitative Lab Routine Excessive bleeding in premenopausal period Expected: 01/03/2024 (Approximate), Expires: 01/02/2025 [facility] Comment on above: Expected: 01/03/2024 (Approximate), Expi res: 01/02/2025 Start: 01-03-2024 End: 01-02-2025 Insulin Insulin Lab Routine Excessive bleeding in premenopausal period Expected: 01/03/2024 (Approximate), Expires: 01/02/2025 [facility] Comment on above: Expected: 01/03/2024 (Approximate), Expi res: 01/02/2025 Start: 01-03-2024 End: 01-02-2025 Prolactin Prolactin Lab Routine Excessive bleeding in premenopausal period Expected: 01/03/2024 (Approximate), Expires: 01/02/2025 [facility] Comment on above: Expected: 01/03/2024 (Approximate), Expi res: 01/02/2025 Start: 01-03-2024 End: 01-02-2025 Testo,Free/Total (Sendout) Testo,Free/Total (Sendout) Lab Routine Excessive bleeding in premenopausal period Expected: 01/03/2024 (Approximate), Expires: 01/02/2025 [facility] Comment on above: Expected: 01/03/2024 (Approximate), Expi res: 01/02/2025 Start: 01-03-2024 End: 01-02-2025 Thyrotropin [Units/volume] in Serum or Plasma TSH Lab Routine Excessive bleeding in premenopausal period Expected: 01/03/2024 (Approximate), Expires: 01/02/2025 [facility] Comment on above: Expected: 01/03/2024 (Approximate), Expi res: 01/02/2025 Start: 01-03-2024 End: 01-02-2025 US Pelvis transvaginal US pelvis transvaginal Imaging Routine Excessive bleeding in premenopausal period Expected: 01/03/2024, Expires: 01/02/2025 [facility] Comment on above: Expected: 01/03/2024, Expires: Start: 11-12-2023 COVID-19 Vaccine () COVID-19 Vaccine () [facility] Start: 11-12-2023 Influenza vaccination [facility] Start: 08-25-2023 End: 08-25-2023 Patient encounter procedure 08/25/2023 1:30 PM EDT Office Visit [facility] [address] [place], [place] [phone] Anthony Garvin V, DO [address] [place], [place] [phone] R knee pain - wants to discuss injection [facility] Comment on above: R knee pain - wants to discuss injection Start: 07-11-2023 End: 07-11-2023 Patient encounter procedure [facility] Start: 2023 Screening for malignant neoplasm of breast [facility] Start: 03-13-2023 Medicare Advantage Annual Wellness Visit Medicare Advantage Annual Wellness Visit [facility] Start: 03-02-2023 HEPATITIS B (2 of 3 - 3-dose series) HEPATITIS B (2 of 3 - 3-dose series) [facility] Comment on above: Postponed from 11/06/1999 (Declined at t his time) Start: 03-02-2023 Hepatitis B Vaccine (2 of 3 - 3-dose series) Hepatitis B Vaccine (2 of 3 - 3-dose series) [facility] Comment on above: Postponed from 11/06/1999 (Declined at t his time) Start: 02-07-2023 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, not intractable, without status epilepticus (HCC) Expected: 07/08/2022 (Approximate), Expires: 07/09/2023 [facility] Work Phone: Comment on above: Expected: 07/08/2022 (Approximate), Expi res: 07/09/2023 Start: 07-08-2022 End: 07-08-2022 Patient encounter procedure 07/08/2022 Office Visit Neurology Demetrius Adrian APRN - EXPERIENCE DESIGN DIRECTOR [address] [place] [address] [facility] Start: 11-11-2021 Influenza vaccination [facility] Start: 10-18-[address] [facility] Work Phone: Start: 10-18-2021 End: 10-18-[address] [facility] Work Phone: Start: 04-15-2021 HPV TESTING HPV TESTING [facility] Start: 04-15-2021 PAP TESTING PAP TESTING [facility] Start: 04-12-2021 End: 04-12-2021 Patient encounter procedure 04/12/2021 Office Visit Neurology Anderson Ordonez MD [address] [place] [address] [phone] [facility] Start: 04-06-2021 End: 04-06-2021 Patient encounter procedure 04/06/2021 Office Visit Neurology Anderson Ordonez MD [address] [place] [address] [phone] [facility] Start: 03-13-2021 DEPRESSION ASSESSMENT DEPRESSION ASSESSMENT [facility] Start: 01-06-2021 End: 01-06-2021 Patient encounter procedure 01/06/2021 Office Visit Obstetrics and Gynecology Yessi Munoz MD [address] [place] [address] [phone] [facility] Start: 11-19-2020 End: 11-19-2020 Patient encounter procedure 11/19/2020 Office Visit Obstetrics and Gynecology Yessi Munoz MD [address] [place] [address] [phone] [facility] [employer] Start: 11-11-2020 Influenza vaccination Flu vaccine (#1) [facility] Work Phone: Start: 11-05-2020 End: 11-05-2020 Patient encounter procedure 11/05/2020 Procedure visit Obstetrics and Gynecology [facility] Start: 09-06-2020 Annual Wellness Visit (AWV) Annual Wellness Visit (AWV) [facility] Work Phone: Start: 01-29-2019 Adult depression screening assessment DEPRESSION SCREENING [facility] Start: 02-06-2017 End: 02-06-2017 *GC/Chlamydia *GC/Chlamydia [facility] Start: 02-06-2017 End: 02-06-2017 Bacteria genital culture *CUV - Culture, VAG/CX Comprehensive [facility] Start: 02-06-2017 End: 02-06-2017 Appointment Appointment [facility] Start: 02-06-2017 End: 02-06-2017 *GC/Chlamydia *GC/Chlamydia [facility] Start: 02-06-2017 End: 02-06-2017 Bacteria genital culture *CUV - Culture, VAG/CX [facility] Start: 10-07-2016 End: 10-07-2016 Appointment Appointment [facility] Start: 10-07-2016 End: 02-07-2017 17-Hydroxycorticosteroids [Mass/volume] in Urine *17HYDUR Hydroxycortosteroids 17- [facility] Start: 10-07-2016 End: 02-07-2017 Dehydroepiandrosterone sulfate (DHEA-S) *DHEA - DHEA-S (Dehydroepiandrosterone Sullfate) [facility] Start: 10-07-2016 End: 02-07-2017 Testosterone Free [Mass/volume] in Serum or Plasma *TESTOF Testosterone Free [facility] Start: 10-07-2016 End: 02-07-2017 Thyroid stimulating hormone (TSH) *TSH [facility] Start: 10-07-2016 End: 02-07-2017 17-Hydroxycorticosteroids [Mass/volume] in Urine *17HYDUR Hydroxycortosteroids 17- [facility] Start: 10-07-2016 End: 02-07-2017 Dehydroepiandrosterone sulfate (DHEA-S) *DHEA - DHEA-S (Dehydroepiandrosterone Sullfate) [facility] Start: 10-07-2016 End: 02-07-2017 Testosterone Free [Mass/volume] in Serum or Plasma *TESTOF Testosterone Free [facility] Start: 10-07-2016 End: 02-07-2017 Thyroid stimulating hormone (TSH) *TSH [facility] Start: 06-15-2013 Screening for malignant neoplasm of cervix [facility] Start: 06-15-2004 Screening for malignant neoplasm of cervix [facility] Work Phone: Start: 06-15-2001 Anxiety Screening Anxiety Screening [facility] Start: 06-15-2001 Diabetes mellitus screening Diabetes Screening [facility] Start: 06-15-2001 Hepatitis C screening Hepatitis C Screening [facility] Start: 04-10-2000 Hepatitis A vaccine (2 of 2 - 2-dose series) Hepatitis A vaccine (2 of 2 - 2-dose series) [facility] Work Phone: Start: 04-10-2000 Hepatitis A Vaccines (2 of 2 - 2-dose series) Hepatitis A Vaccines (2 of 2 - 2-dose series) [facility] Start: 11-06-1999 HEPATITIS B (2 of 3 - 3-dose series) HEPATITIS B (2 of 3 - 3-dose series) [facility] Start: 11-06-1999 Hepatitis B vaccine (2 of 3 - 3-dose primary series) Hepatitis B vaccine (2 of 3 - 3-dose primary series) [facility] Work Phone: Start: 11-06-1999 Hepatitis B Vaccine (2 of 3 - 3-dose series) Hepatitis B Vaccine (2 of 3 - 3-dose series) [facility] Start: 11-06-1999 Hepatitis B Vaccines (2 of 3 - 3-dose series) Hepatitis B Vaccines (2 of 3 - 3-dose series) [facility] Start: 06-15-1998 HIV screening HIV screen [facility] Work Phone: Start: 06-15-1996 Varicella vaccination Varicella Vaccines (1 of 2 - 13+ 2-dose series) [facility] Start: 1995 COVID-19 Vaccine (1) COVID-19 Vaccine (1) [facility] Work Phone: Start: 1995 Depression Monitoring Depression Monitoring [facility] Start: 1995 Depresssion Monitoring Depresssion Monitoring [facility] Start: 06-15-1988 COVID-19 VACCINE (#1) COVID-19 VACCINE (#1) [facility] Start: 06-15-1988 COVID-19 VACCINE (1) COVID-19 VACCINE (1) [facility] Start: 06-15-1984 MMR Vaccines (1 of 1 - Standard series) MMR Vaccines (1 of 1 - Standard series) [facility] Start: 06-15-1984 Varicella vaccination Varicella Vaccines (1 of 2 - 2-dose childhood series) [facility] Start: 06-15-1984 Varicella vaccine (1 of 2 - 2-dose childhood series) Varicella vaccine (1 of 2 - 2-dose childhood series) [facility] Work Phone: Start: 1983 COVID-19 VACCINE (#1) COVID-19 VACCINE (#1) [facility] Start: 1983 Hepatitis C screening Hepatitis C [facility] Work Phone: Start: 1983 HIV screening HIV Screening [facility] Start: 1983 Lipid panel Lipid Panel [facility] Start: 1983 Medicare Advantage Annual Wellness Visit (AWV) Medicare Advantage Annual Wellness Visit (AWV) [facility] End: 10-28-2020 17-Hydroxyprogesterone 17-Hydroxyprogesterone Lab Routine PCOS (polycystic ovarian syndrome) 1 Occurrences starting 10/28/2020 until 10/28/2020 [employer] Work Phone: Comment on above: 1 Occurrences starting 10/28/2020 until 10/28/2020 17-Hydroxyprogesterone 17-Hydrox yprogesterone Lab Routine PCOS (polycystic ovarian syndrome) 10/28/2020 11:30 AM EDT [employer] Work Phone: End: 03-08-2024 Choriogonadotropin ( test) [Presence] in Urine [facility] [employer] Work Phone: Comment on above: Once (Lab) for 1 Occurrences starting until 03/08/2024 End: 10-28-2020 DHEA-Sulfate DHEA-Sulfate Lab Routine PCOS (polycystic ovarian syndrome) 1 Occurrences starting 10/28/2020 until 10/28/2020 [employer] Work Phone: Comment on above: 1 Occurrences starting 10/28/2020 until 10/28/2020 DHEA-Sulfate DHEA-Sulfate Lab Routine PCOS (polycystic ovarian syndrome) 10/28/2020 11:30 AM EDT [employer] Work Phone: End: 10-28-2020 Insulin, Random Insulin, Random Lab Routine PCOS (polycystic ovarian syndrome) 1 Occurrences starting 10/28/2020 until 10/28/2020 [employer] Work Phone: Comment on above: 1 Occurrences starting 10/28/2020 until 10/28/2020 Insulin, Random Insulin, Random Lab Routine PCOS (polycystic ovarian syndrome) 10/28/2020 11:30 AM EDT [employer] Work Phone: Patient Education [facility] Work Phone: Patient referral [facility] Work Phone: End: 10-28-2020 Testosterone,Free/Total [facility] Children Testosterone,Free/Total [facility] Lab Routine PCOS (polycystic ovarian syndrome) Other ovarian dysfunction 1 Occurrences starting 10/28/2020 until 10/28/2020 [facility] Work Phone: Comment on above: 1 Occurrences starting 10/28/2020 until 10/28/2020 Testosterone,Free/To alyssa [facility] Testosterone,Free/Total [facility] Lab Routine PCOS (polycystic ovarian syndrome) Other ovarian dysfunction 10/28/2020 11:30 AM EDT [facility] Work Phone: Tissue exam [facility] Work Phone: Comment on above: Release Upon Ordering for 1 Occurrences starting 03/08/2024 End: 09-13-2024 XR Knee - right 4 Views XR KNEE GENERAL 4V AP BOTH/PA BOTH/LAT/MERC RIGHT Radiology Routine Right knee pain, unspecified chronicity 1 Occurrences starting 08/15/2023 until 09/13/2024 [facility] Work Phone: Comment on above: 1 Occurrences starting 08/15/2023 until 09/13/2024 XR Knee - right 4 Views XR KNEE GENERAL 4V AP BOTH/PA BOTH/LAT/MERC RIGHT Radiology Routine Right knee pain, unspecified chronicity 08/25/2023 1:48 PM EDT [facility] Work Phone: [facility] Immun[facility] Immunization Date Immunization Notes Care Provider Nakul lucero 01-29-2018 tetanus toxoid, redu roland diphtheria toxoid, and acellular pertussis vaccine, adsorbed Bela Praisler-Wood BROKER IN CHARGE.EXPERIENCE DESIGN DIRECTOR Work Phone: [facility] Work Phone: 01-29-2018 influenza virus vaccine, unspecified formulation Aubrie Rich MA [facility] 10-30-2007 tetanus toxoid, redu roland diphtheria toxoid, and acellular pertussis vaccine, adsorbed Bela Praisler-Wood BROKER IN CHARGE.EXPERIENCE DESIGN DIRECTOR Work Phone: [facility] Work Phone: 10-06-2002 hepatitis B immune globulin Bela Joseph BROKER IN CHARGE.EXPERIENCE DESIGN DIRECTOR Work Phone: [facility] Work Phone: 05-27-2002 hepatitis B immune globulin Bela Joseph BROKER IN CHARGE.EXPERIENCE DESIGN DIRECTOR Work Phone: [facility] Work Phone: 10-09-1999 hepatitis A and hepatitis B vaccine Bela Joseph BROKER IN CHARGE.EXPERIENCE DESIGN DIRECTOR Work Phone: [facility] Work Phone: 10-09-1999 hepatitis B vaccine, unspecified formulation Anthony Garvin V, DO Work Phone: [facility] 09-03-1999 hepatitis B immune globulin Bela Joseph BROKER IN CHARGE.EXPERIENCE DESIGN DIRECTOR Work Phone: [facility] Work Phone: Payers Date Payer Category Payer Self-pay [id number] 2022 Medicaid HMO UHC BEATRIS [place] BECKIEID ONLY [id number] 2019 Medicaid UHC MEDICAID [facility] MEDICAID [id number] 2019-Present [phone] [address] [place] [address] Medicaid [id number] 2019 Medicaid [id number] 2019 Medicare ANTHEM MEDICARE ADVANTAGE ANTH MEDICARE ADVANTAGE [id number] 2019-Present [address] [place] [id number] Medicare HMO [id number] 2019 Medicare (Managed Care) JUANY [place] FRANCISCA ADVANTAGE HMO [id number] 2019 Medicare HMO [id number] 2019 Unknown ANTHEM BLUE CROS S AND BLUE SHIELD ANTHEM MEDIBLUE HMO [id number] 2019-Present [phone] [address] O [id number] 2019 Unknown [id number] 2019 Medicaid [id number] 2017 Medicare [id number] 2016 Medicaid [id number] 2009 Medicare [id number] Unknown [id number] Unknown [id number] 462 Unknown [id number] 462 Unknown [id number] 462 Unknown [id number] 462 Unknown [id number] 462 Unknown [id number] 462 Unknown [id number] 462 Unknown [id number] 462 Unknown [id number] 462 Unknown [id number] 462 Social History Date Type Detail Facility Start: 03-01-2012 End: 10-28-2020 Tobacco smoking status [facility] Never smoker [facility] Start: 03-01-2012 End: 10-28-2020 Tobacco use and exposure Never used [facility] Start: 10-28-2020 End: 08-25-2023 Alcohol intake Current drinker of alcohol (finding) [facility] Work Phone: Start: 10-06-2020 History SDOH Alcohol Frequency 1 [employer] Work Phone: Start: 10-28-2020 Alcohol Comment occ [employer] Work Phone: Start: 1985 Sex Assigned At Not on file [facility] [employer] Work Phone: Start: 10-20-2020 End: 07-09-2021 Alcohol intake Current non-drinker of alcohol (finding) [facility] Start: 09-20-2020 End: 07-08-2022 Exposure to SARS-CoV-2 (event) Not sure [facility] Start: 08-02-2021 End: 02-06-2023 Tobacco smoking status [facility] Unknown if ever smoked [facility] Start: 06-07-2020 Occasional [facility] Start: 01-09-2019 None [facility] Start: 06-07-2020 Alone [facility] Start: 07-28-2020 Non-smoker [facility] Start: 1985 Sex Assigned At Female W [facility] Start: 03-02-2022 Alcohol Comment rare [facility] Start: 07-08-2022 End: 05-07-2024 Alcohol intake Ex-drinker (finding) [facility] Start: 07-08-2022 End: 06-13-2024 History of Social function [facility] Work Phone: Start: 07-08-2022 End: 06-13-2024 Tobacco use panel [facility] Work Phone: Adult Depression Screening Assessment 0 [facility] Work Phone: Start: 10-11-2021 Sex Female (finding) [facility] How often to you hav e a drink containing alcohol? Never [facility] Start: 06-13-2024 Gender identity Identifies as female gender (finding) [facility] Start: 06-13-2024 Sexual orientation Heterosexual (fin ding) [facility] Functional Status Date Assessment Result Facility 05-06-2014 Are you deaf, or do you have serious difficulty hearing No 05/06/2014 8:21 AM Flakita Denson LPN No [facility] 05-06-2014 Are you blind, or do you have serious difficulty seeing, even when wearing glasses No 05/06/2014 8:21 AM Flakita Denson LPN No [facility] 05-06-2014 Do you have serious difficulty walking or climbing stairs No 05/06/2014 8:21 AM Flakita Denson LPN No [facility] 05-06-2014 Do you have difficul ty dressing or bathing No 05/06/2014 8:21 AM Flakita Denson LPN No [facility] 05-06-2014 Because of a physica l, mental, or emotional condition, do you have difficulty doing errands alone such as visiting a physician's office or shopping No 05/06/2014 8:21 AM Flakita Denson LPN No [facility] Mental Status Date Assessment Result Facility 01-09-2022 Cognitive function Voice/Name [facility] Work Phone: 05-06-2014 Because of a physica l, mental, or emotional condition, do you have serious difficulty concentrating, remembering, or making decisions No 05/06/2014 8:21 AM Flakita Denson LPN No [facility] Clinical Notes 07-13-2015 to 06-18-2024 Telephone Encounter - Ghada Fairchild - 06/18/2024 9:29 AM EDTTelephone Encounter - Ghada Fairchild - 06/18/2024 9:29 AM EDTTelephone Encounter - Ghada Fairchild - 06/12/2024 2:20 PM EDTPatient Instructions Note Date & Type Note Facility 06-18-2024 Telephone encounter Note Called and LVM for pt letting her know her surgery is cancelled for tomorrow 06/19/24 due to not having a PAT. Told pt to call office to get that rescheduled. [facility] 06-18-2024 Miscellaneous Notes Called and LVM for pt letting her know her surgery is cancelled for tomorrow 06/19/24 due to not having a PAT. Told pt to call office to get that rescheduled. Pt called back wanting to keep the surgery and states she will have a ride for her PAT appt. Surgery is now staying. Called pt in regards to her PAT appointment as she cancelled it. I left a VM stating she will have to have a PAT appt in order to proceed with surgery on 06/19/24. Pt calls office back angry asking why she needs to go in person to this appt and not just do it over the phone. I then let her know you only can if you live so many hours away. Pt then gets mad and says she would like all of her medical records sent over due to the fact that she gets better care elsewhere. I let her know I will cancel the surgery and before I could get anything else out she hung up. Will be cancelling surgery that is scheduled on 06/19/24 with Tammy. documented in this encounter [facility] 06-15-2024 Note Pt given discharge i nstructions and education. Pt verbalizes understanding and agrees with plan of care. Pt signed AVS. Denies questions at this time. Denies SI/HI/AVH. Pt in no acute distress. Pt walked down to security at 1430 for belongings. Pt placed in Uber. 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 female, PMHx of depression, anxiety, epilepsia, GERD, PCOS, PTSD, and sleep apnea, presented to the ED on 06/13 for psychiatric evaluation. Per ED report, patient was at [facility] same day outpt surgery for plans of hysteroscopy when she began yelling that she was being held hostage, started to hit self in the face and banging her head into the wall. She had threatened to harm everyone around her. Per reports, patient made comments about not wanting to be alive but did not make any direct suicidal comments. Have reported to staff that she had not been compliant with her medications. Is currently on Xanax 1 mg at bedtime and 2 mg twice daily, Celexa 10mg, Keppra 1000 mg twice daily (for seizures). ED workup was remarkable for slightly elevated ALT/AST, UDS positive for benzodiazepine, negative ethanol andEKG with QTc of 470ms. patient was medically cleared and transferred to [place] [id number]. Today, patient was interviewed while in the room. He was overall cooperative and engaged. In the days leading up to patient's admission, the patient experienced several stressors. On June 11, she was involved in a confrontation on a public bus after a passenger objected to her conversation, which led to police involvement. She was charged with disorderly conduct and spent the night in half-way, where she reported inadequate care and a lack of sanitary supplies during menstruation. The patient felt this experience was unjust and indicative of systematic failures, which exacerbated her sense of frustration and helplessness. On the day of pretesting for her surgery next week, she is already anxious about being late. The added stress of the elevators not working heightened her anxiety as well as the perceived inefficiencies in the preadmission process. Her comment about understanding why people do shit like this referring to the of health insurance [employer], was interpreted as a threat, but she insist it was her frustration with the health issue rather than the threat of harm. She does endorse depressive symptoms including low energy, low mood, helplessness. Does endorse significant anxiety including irritability, racing thoughts, intrusive thoughts of past events. She also tends to be sensitive to other peoples perception of her. Does have a history of PTSD but currently denies any symptoms. Denies any manic symptoms or delusions. She currently denies any SI/HI/AVH. Does endorse difficulty sleeping but that is at baseline. Patient is reluctant to start anything for sleep due to history of overdosing. Discussed medications. Patient stated she wanted to try celexa 10mg BID instead of 20mg AM and 10mg qhs. Patient believes it may help her more. Would like to continue xanax 2mg BID with 1mg in afternoon and keppra 1000mg BID for seizures. Pt declines trazodone or any sleeping agent due to risk of OD in past. HOSPITAL COURSE: Patient was continued on her current medications as above with the exception of Celexa which was decreased to 10 mg twice daily. There was no significant behavioral issues. There was no threatening behavior. She consistently denied suicidal or homicidal ideation. It seems that she was just really overwhelmed on the day of admission. Things were stressful when she went to an outpatient appointment. She simply became upset and this escalated to the point that she was pink slipped to the ER. From talking with her today she tells me that she has a history of right temporal lobectomy (per records at age 12 in 1997) for epilepsy. She believes that her difficulty with her anger control and tolerating stress is due to the temporal lobotomy. COLLATERAL CONTACT: Attempt made to contact significant other to review discharge plan at time of discharge. We were unable to contact significant other identified. Patient was provided opportunity to designate another possible contact and accepted. SIGNIFICANT DIAGNOSTIC STUDIES: On admission urine toxicology was positive for benzodiazepines and fentanyl (most likely a false negative which is frequent). Lab draws for lipid panel and hemoglobin A1c were discontinued due to the patient refusal (x 3). CONSULTANTS: Social work consulted for discharge planning RECOMMENDED NEXT STEPS: Follow-up through [facility]. DISCHARGE MEDICATIONS: Medication List CHANGE how you take these medications citalopram 10 MG tablet (more content not included)... [facility] 06-14-2024 Note Problem: Potential f or Harm to Self or Others Goal: Denies harm toward self or others Outcome: Progressing [facility] 06-14-2024 Note Department of Psychi atry History and Physical - Adult CHIEF COMPLAINT: I was trying to get help but no one could help me Chief Complaint Patient presents with Psychiatric Evaluation Suicidal Homicidal History obtained from: chart review and patient reports Patient was seen after discussion with staff and reviewing the chart HISTORY OF PRESENT ILLNESS: The patient is a 38 y.o. female, PMHx of depression, anxiety, epilepsia, GERD, PCOS, PTSD, and sleep apnea, presented to the ED on 06/13 for psychiatric evaluation. Per ED report, patient was at [facility] same day outpt surgery for plans of hysteroscopy when she began yelling that she was being held hostage, started to hit self in the face and banging her head into the wall. She had threatened to harm everyone around her. Per reports, patient made comments about not wanting to be alive but did not make any direct suicidal comments. Have reported to staff that she had not been compliant with her medications. Is currently on Xanax 1 mg at bedtime and 2 mg twice daily, Celexa 10mg, Keppra 1000 mg twice daily (for seizures). ED workup was remarkable for slightly elevated ALT/AST, UDS positive for benzodiazepine, negative ethanol and EKG with QTc of 470ms. patient was medically cleared and transferred to [place] [address]. Today, patient was interviewed while in the room. He was overall cooperative and engaged. In the days leading up to patient's admission, the patient experienced several stressors. On June 11, she was involved in a confrontation on a public bus after a passenger objected to her conversation, which led to police involvement. She was charged with disorderly conduct and spent the night in half-way, where she reported inadequate care and a lack of sanitary supplies during menstruation. The patient felt this experience was unjust and indicative of systematic failures, which exacerbated her sense of frustration and helplessness. On the day of pretesting for her surgery next week, she is already anxious about being late. The added stress of the elevators not working heightened her anxiety as well as the perceived inefficiencies in the preadmission process. Her comment about understanding why people do shit like this referring to the of health insurance [employer], was interpreted as a threat, but she insist it was her frustration with the health issue rather than the threat of harm. She does endorse depressive symptoms including low energy, low mood, helplessness. Does endorse significant anxiety including irritability, racing thoughts, intrusive thoughts of past events. She also tends to be sensitive to other peoples perception of her. Does have a history of PTSD but currently denies any symptoms. Denies any manic symptoms or delusions. She currently denies any SI/HI/AVH. Does endorse difficulty sleeping but that is at baseline. Patient is reluctant to start anything for sleep due to history of overdosing. Discussed medications. Patient stated she wanted to try celexa 10mg BID instead of 20mg AM and 10mg qhs. Patient believes it may help her more. Would like to continue xanax 2mg BID with 1mg in afternoon and keppra 1000mg BID for seizures. Pt declines trazodone or any sleeping agent due to risk of OD in past. Medications Prior to Admission: Current Outpatient Medications Medication Instructions ALPRAZolam (Xanax) 2 MG tablet alprazolam 2 mg tablet TAKE 1 TABLET BY MOUTH TWICE DAILY ALPRAZolam (XANAX) 1 mg, Daily Cholecalciferol (Vitamin D) 125 MCG (5000 UT) capsule 2 time daily citalopram (CeleXA) 10 MG tablet take 1 tablet by oral route every day citalopram (CeleXA) 20 MG tablet TAKE 1.5 TABLETS BY MOUTH EVERY DAY esterified estrogens (MENEST) 0.625 mg, Daily ferrous sulfate 325 mg, Daily with breakfast finasteride (PROSCAR) 5 mg, Daily levETIRAcetam (KEPPRA) 1,000 mg, Oral, 2 times daily megestrol (MEGACE) 20 mg, Oral, 2 times daily spironolactone (ALDACTONE) 50 mg, Daily Compliance:fair Psychiatric Review of Systems (Negative if unchecked) [] Change in appetite/weight [x] Change in sleep MOOD: [x] Anhedonia [x] Decreased/low mood [] Worthlessness/Guilt [x] Hopeless/Helpless [] Decreased energy [] Decreased concentration ANXIETY: [x] Excessive worry/difficulty controlling worry [x] Irritability [] Easily fatigued [] Difficulty concentrating [] Obsessions [] Palpitations/Chest pain [] Diaphoresis [] Shortness of breath [] Trembling/shaking [] Sense of doom/fear of dying [] Agoraphobia [] Derealization/Depersonalization PTSD: [] Nightmares [] Flashbacks [x] Avoidance [] Hyperarousal [x] Hypervigilance MALCOM: [] Inflated self esteem/grandiosity [] Elevated energy [] Decreased need for sleep [] Talkative/rapid/pressured speech [] Flight of ideas/racing thoughts [] Distractibility [] Increased goal directed activity [] Risky behaviors/activities [x] Irritability [] Psychomotor agitatio (more content not included)... [facility] 06-12-2024 Telephone encounter Note Pt called back wanting to keep the surgery and states she will have a ride for her PAT appt. Surgery is now staying. [facility] 06-12-2024 Miscellaneous Notes Pt called back wanting to keep the surgery and states she will have a ride for her PAT appt. Surgery is now staying. Called pt in regards to her PAT appointment as she cancelled it. I left a VM stating she will have to have a PAT appt in order to proceed with surgery on 06/19/24. Pt calls office back angry asking why she needs to go in person to this appt and not just do it over the phone. I then let her know you only can if you live so many hours away. Pt then gets mad and says she would like all of her medical records sent over due to the fact that she gets better care elsewhere. I let her know I will cancel the surgery and before I could get anything else out she hung up. Will be cancelling surgery that is scheduled on 06/19/24 with Tammy. documented in this encounter [facility] 06-12-2024 Telephone encounter Note Called pt in regards to her PAT appointment as she cancelled it. I left a VM stating she will have to have a PAT appt in order to proceed with surgery on 06/19/24. Pt calls office back angry asking why she needs to go in person to this appt and not just do it over the phone. I then let her know you only can if you live so many hours away. Pt then gets mad and says she would like all of her medical records sent over due to the fact that she gets better care elsewhere. I let her know I will cancel the surgery and before I could get anything else out she hung up. Will be cancelling surgery that is scheduled on 06/19/24 with Kovacevich. [facility] 06-03-2024 Instructions Ziyad Harrell MD - 06/03/2024 1:46 PM EDT Please do labs on fasting at 8 am about 8 weeks off of medications - spironolactone, megace, and menest Hold biotin for about 5 days before the lab draw On a different day, say a week after the above tests- do dexamethasone test Directions for dexamethasone suppression test: 1. Take dexamethasone 1-mg tab by mouth at 11 PM the evening before your test. 2. Go to the lab the next morning and have your blood drawn at ~8 AM. *Do not eat or drink anything other than water from the time you take dexamethasone to the time you get your blood drawn. 3. If either of the following situations happen, DO NOT HAVE YOUR BLOOD DRAWN: A. You forget to take the pill at 11 PM the evening before B. You cannot get your blood drawn the next morning at ~8 AM C. If either situation happens, please call me to let me know documented in this encounter [facility] 06-03-2024 Note HNO ID: [id number] Author: ZIYAD HARRELL MD Service: ? Author Type: Physician Type: Progress Notes Filed: 06/03/2024 18:32 Note Text: Endocrinology and Metabolism [place] [facility] Visit Note REASON FOR CONSULT: Evaluation of ovarian hyperandrogenism REQUESTING PHYSICIAN: Yessi Munoz MD [address] [facility] [address] My final recommendations will be communicated back to the requesting physician by way of shared medical record or letter via [place] mail. HPI Josse Wayne is a 38 year old female presenting as a new patient to me for evaluation of ovarian hyperandrogenism. - Menarche at age 13, with irregular menses since onset, occurring approximately 3 times per year. - Hirsutism since adolescence; had elctrolysis done in the past, requires waxing every week. - No significant acne. - No changes in voice or genitalia. - No family history of PCOS or hirsutism, infertility - Previous treatment with metformin from ages 13 to 23, discontinued due to weight gain as reported. - Tried oral contraceptives without improvement in menstrual regularity or ovulation. - Currently taking Megace and estrogen for the last few weeks, as started by her OBGYN - On spironolactone 100 mg daily; reports only slight improvement in hirsutism. - Has never conceived; desires to have children. - Not currently seeing an infertility specialist. - Reports weight loss of 8 lbs recently. - Engages in walking occasionally, depending on how she feels. - Drinks water primarily, rarely consumes soda. 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 Hirsutism Hypercholesteremia 04/2014 Infertility Obesity, unspecified Obesity Other bipolar disorders PCOS (polycystic ovarian syndrome) Seizure (HCC) PAST SURGICAL HISTORY: PAST SURGICAL HISTORY Procedure Laterality Date EGD TRANSORAL BIOPSY SINGLE/MULTIPLE 05/23/08 PAST SURGICAL HISTORY OF 1997 RIGHT TEMPORAL LOBECTOMY AND IMPLANTATION OF IMPLANTS FAMILY HISTORY: FAMILY HISTORY Problem Relation Age of Onset other (sudden cardiac arrest) Mother 49 passed in 2007 Cancer Maternal Grandmother Emphysema Maternal Grandmother Heart Maternal Grandfather Stroke Paternal Grandmother Cancer Paternal Grandfather Liver Heart Maternal Aunt open heart surgery SOCIAL HISTORY: Social History Tobacco Use Smoking status: Never Smokeless tobacco: Never Vaping Use Vaping status: Never Used Substance Use Topics Alcohol use: Yes Comment: rare Drug use: No MEDICATIONS: Current Outpatient Medications on File Prior to Visit Medication Sig spironolactone (ALDACTONE) 50 mg tablet Take 50 mg by mouth once daily. (Patient taking differently: Take 100 mg by mouth once daily.) megestrol (MEGACE) 20 mg tablet 20 mg. MENEST 0.625 mg tablet Take 0.625 mg by mouth once daily. citalopram (CELEXA) 20 mg tablet Take 20 [...] mg am 2mg noon 1 mg bedtime (Patient taking differently: Take 2 mg by mouth two times a day. 2 mg am 2mg afternoon then 1 mg afternoon) meloxicam (MOBIC) 15 mg tablet Take 1 tablet by mouth once daily. (Patient not taking: Reported on 06/03/2024) benzonatate (TESSALON PERLES) 100 mg capsule Take [...] once daily. (Patient not taking: Reported on 06/03/2024) No current facility-administered medications on file prior to visit. ALLERGIES: ALLERGIES Allergen Reactions Atarax [Hydroxyzine] Mental Status Change Causes mental changes Phenobarbital Rash Propranolol Rash ROS 10 point ROS was reviewed (more content not included)... [facility] 06-03-2024 History of Present illness Narrative Endocrinology and Metabolism [place] [facility] Visit Note REASON FOR CONSULT: Evaluation of ovarian hyperandrogenism REQUESTING PHYSICIAN: Yessi Munoz MD [address] [facility] [address] My final recommendations will be communicated back to the requesting physician by way of shared medical record or letter via [place] mail. AZEB Wayne is a 38 year old female presenting as a new patient to me for evaluation of ovarian hyperandrogenism. - Menarche at age 13, with irregular menses since onset, occurring approximately 3 times per year. - Hirsutism since adolescence; had elctrolysis done in the past, requires waxing every week. - No significant acne. - No changes in voice or genitalia. - No family history of PCOS or hirsutism, infertility - Previous treatment with metformin from ages 13 to 23, discontinued due to weight gain as reported. - Tried oral contraceptives without improvement in menstrual regularity or ovulation. - Currently taking Megace and estrogen for the last few weeks, as started by her OBGYN - On spironolactone 100 mg daily; reports only slight improvement in hirsutism. - Has never conceived; desires to have children. - Not currently seeing an infertility specialist. - Reports weight loss of 8 lbs recently. - Engages in walking occasionally, depending on how she feels. - Drinks water primarily, rarely consumes soda. 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 Hirsutism Hypercholesteremia 04/2014 Infertility Obesity, unspecified Obesity Other bipolar disorders PCOS (polycystic ovarian syndrome) Seizure (HCC) PAST SURGICAL HISTORY: PAST SURGICAL HISTORY Procedure Laterality Date EGD TRANSORAL BIOPSY SINGLE/MULTIPLE 05/23/08 PAST SURGICAL HISTORY OF 1997 RIGHT TEMPORAL LOBECTOMY & IMPLANTATION OF IMPLANTS FAMILY HISTORY: FAMILY HISTORY Problem Relation Age of Onset other (sudden cardiac arrest) Mother 49 passed in 2007 Cancer Maternal Grandmother Emphysema Maternal Grandmother Heart Maternal Grandfather Stroke Paternal Grandmother Cancer Paternal Grandfather Liver Heart Maternal Aunt open heart surgery SOCIAL HISTORY: Social History Tobacco Use Smoking status: Never Smokeless tobacco: Never Vaping Use Vaping status: Never Used Substance Use Topics Alcohol use: Yes Comment: rare Drug use: No MEDICATIONS: Current Outpatient Medications on File Prior to Visit Medication Sig spironolactone (ALDACTONE) 50 mg tablet Take 50 mg by mouth once daily. (Patient taking differently: Take 100 mg by mouth once daily.) megestrol (MEGACE) 20 mg tablet 20 mg. MENEST 0.625 mg tablet Take 0.625 mg by mouth once daily. citalopram (CELEXA) 20 mg tablet Take 20 [...] mg am 2mg noon 1 mg bedtime (Patient taking differently: Take 2 mg by mouth two times a day. 2 mg am 2mg afternoon then 1 mg afternoon) meloxicam (MOBIC) 15 mg tablet Take 1 tablet by mouth once daily. (Patient not taking: Reported on 06/03/2024) benzonatate (TESSALON PERLES) 100 mg capsule Take [...] once daily. (Patient not taking: Reported on 06/03/2024) No current facility-administered medications on file prior to visit. ALLERGIES: ALLERGIES Allergen Reactions Atarax [Hydroxyzine] Mental Status Change Causes mental changes Phenobarbital Rash Propranolol Rash ROS 10 point ROS was reviewed and negative unless indicated in the HPI PHYSICAL EXAM BP 136/86 Pulse 100 Resp 16 Wt (!) 142.6 kg (314 lb 6.4 oz) LMP 08/11/2021 (Exact Date) SpO2 99% BMI 53.97 kg/m APPEARANCE: Well appearing, alert, in no acute distress, morbidly obese, significant hirsutism, and body hair NECK: negative THYROID: normal in size, no palpable nodules HEART: RRR with normal S1 and S2 LUNGS: unlabored breathing on room air EXTREMITIES: no tremors or deformities ABDOMEN: soft, non tender, has few wide stretch quiroz, few dark striae on the lateral abdomen (reportedly had stretch quiroz due to weight gain through all her life) SKIN: No rashes or lesions NEUROLOGICAL: Normal muscle strength in b/l upper and lower extremities PREVIOUS DATA Diagnostic tests reviewed for today's visit: 10/28/2020: 11:30 AM Total testosterone 64 ng/dL (9-55) Free testosterone 10.7 pg/mL (1.3-1.2) Sex hormone binding globulin 33 nmol/L (30-135) TSH 0.531 uIU/ml (0.465-4.68) Glucose 97 mg/dL Insulin, random 21 IU/mL (fasting insulin 3-25) DHEA-sulfate 241 mcg/dL (45-270) 17 hydroxyprogesterone 48.27 ng/dL (less than or equal to 206) Prolactin 8 ng/mL (2.8-27.0) 12/23/2020 12:44 PM Follicle-stimulating hormone 2.7 mIU/mL (Follicular Phase ...... 2.3-12.6 Mid-cycle Peak ........ 5.2-17.5 Luteal Phase .......... 1.7-12.9 Post-menopausal ....... 12.7-132.2 ) Imaging: US female pelvis: 01/23/2024: Hatchery Attendant Transvaginal [id number] -- INDICATIONS: Excessive bleeding in the premenopausal N92.4 period Unsure on LMP, Bleeding since May 2023 TV ASPHALT DISTRIBUTOR OPERATOR ultrasound -- TECHNIQUE/SCAN QUALITY: Technique: Transvaginal Approach Scan Quality: Technically limited due to body habitus -- COMPARISON: 01/06/2021 PCOS -- HISTORY: Age: 38 Menses: Unknown -- HX COMMENTS: Non latex cover used. -- UTERUS: Uterus: Heterogeneous Position: Anteverted Size (cm) L: 8.39 W: 5.18 H: 4.17 -- ENDOMETRIUM: Endometrium: Thickened Thickness(mm): 16.23 -- CERVIX: Multiple cervical cysts are noted. -- CUL-DE-SAC: No free fluid was visualized -- RIGHT OVARY: Status: Visualized Size (cm) L: 3.59 W: 3.09 H: 2.42 Vol (ml): 14.06 Morphology: Polycystic Type: Simple cyst Size (cm) L: 1.26 W: 1.62 H: 2.47 Vol (ml): 2.64 -- LEFT OVARY: Status: Not visualized Impression: The right ovary is enlarged and has several, small cysts along the periphery of the ovary. This appearance and ovarian volumes over 10 cc can be associated with PCOS. Clinical correlation is required. The right ovary contains a simple cyst. Left ovary was not visualized based on PB. Endometrium is thickened, echogenic and uniform measuring 16.23mm. No increased blood flow is noted. Consider endometrial sampling if clinically indicated. No free fluid or adnexal masses seen. Patient is scheduled to see Dr. Munoz following ultrasound 02/14/2024. *Ultrasound cannot detect all pelvic or ASPHALT DISTRIBUTOR OPERATOR abnormalities and normal findings cannot guarantee the absence of a problem.* US pelvis: 08/17/2017: IMPRESSION: 1.2 cm long oblong hyperechoic area in the endometrium, suspicious for a polyp. Correlation with direct exam should be considered. Possible 1.7 cm fibroid. Dilation and Curettage: 03/08/2024: Final Diagnosis UTERUS, ENDOMETRIUM, CURETTAGE - SIMPLE HYPERPLASIA WITHOUT ATYPIA AND BACKGROUND CHANGES SUGGESTIVE OF ENDOMETRIAL POLYP. GLANDULAR AND STROMAL BREAKDOWN CHANGES PRESENT. UNREMARKABLE ENDOCERVICAL GLANDULAR MUCOSA PRESENT. ASSESSMENT AND PLAN Significant hirsutism Irregular cycles: Hx of Elevated testosterone From labs done in 2020, diagnosis of PCOS can be made, however labs were done later in the day than usual and unsure if hirsutism at that time was this significant She is currently on megace 20 mg (progesterone) and menest 0.625 mg (estradiol), both high doses than used in PCOS usually, but unsure if this was recommended due to hirsutism being severe or otherwise. She was not able to give me any information, other than the fact that control pills did not help her in the past She is also on spironolactone 100 mg daily Discussed with patient that hormonal pills (OCPs) do not help with ovulation, but with regularizing cycles, where as metformin can help with ovulation Discussed repeating labs, instructions given verbally, and written in AVS. - Discontinue estrogen, Megace, and spironolactone for at least 8 weeks to prepare for lab tests. - Hold biotin for 3-5 days before lab tests. - Schedule and complete the first set of lab tests at 8:00 AM after 8 weeks of discontinuing medications; fast from dinner until the test, drinking only water. - field support representative the prescribed pill from [facility] in [place] closer to the second lab test date. - Take the prescribed pill at 11:00 PM the night before the second lab test, scheduled one week after the first; fast from dinner until the test, drinking only water. - Schedule and complete the second set of lab tests at 8:00 AM, about one week after the first set. 1. Elevated testosterone 2. Irregular cycles 3. PCOS (polycystic ovarian syndrome) 4. Class 3 severe obesity due to excess calories without serious comorbidity with body mass index (BMI) of 50.0 to 59.9 in adult (HCC) (Primary) - HYDROXYPROGESTERONE-17; Future - TESTOSTERONE, BIOAVAILABLE AND TOTAL BY MS (ADULT FEMALES, CHILDREN, OR INDIVIDUALS ON TESTOSTERONE-SUPPRESSING THERAPY); Future - ESTRADIOL-17B BLD; Future - FOLLICLE STIMULATING HORMONE; Future - LUTEINIZING HORMONE; Future - DHEA-S BLD; Future - T4 FREE/FREE THYROXINE; Future - THYROID STIMULATING HORMONE; Future - PROLACTIN; Future - DEXAMETHASONE; Future - dexAMETHasone (DECADRON) 1 mg tablet; Take the tablet at 11 pm and go for labs the next morning on fasting at 8 am Patient should start on July 24, 2024. Dispense: 1 tablet; Refill: 0 - CORTISOL SUPRES POST; Future Once labs resulted, might consider doing CT scan for evaluation of hirsutism if indicated based on results Lifestyle modifications recommended with diet and exercise +/- medications if interested - Interested in weight management options, Zepbound injections particularly, which ?her PCP is working on right now I offered endocrine weight management referral, but she does not want to go to providers outside [place], so recommended for weight management with Makeda Valverde APRN. CNP (OBGYN dept in [place]) and discuss potential treatments like Zepbound or Wegovy to help with weight loss All questions answered, patient understands and agrees with plan Follow-up in 3 months with labs Ziyad Harrell MD Endocrinology Associate Staff [facility] Endocrinology and Metabolism [place] [phone] I spent a total of 56 minutes on the date of the service which included preparing to see the patient, [id number] patient care, completing clinical documentation, obtaining and/or reviewing separately obtained history, performing a medically appropriate examination, counseling and educating the patient/family/caregiver, ordering medications, tests, or procedures, independently interpreting results (not separately reported), and communicating results to the patient/family/caregiver. Medical Decision Making: Medical Decision Making Level: 1 - N/A documented in this encounter [facility] 05-07-2024 History of Present illness Narrative Visit type: Established Patient Reason for Visit: Follow-up and Seizures Assessment and Plan 1. 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 She had a lobectomy at age 12. Seizures returned in 2007 EEG 07/25-intermittent slowing focal slowing in right temporal region Keppra 1000mg bid Level=14.1 She is very upset today Says everyone is manipulating her She is needing surgery She report no seizures Compliant with meds She says she just wants her forms signed so she can go home REVIEW OF SYSTEMS: Review of Systems Constitutional: Negative. HENT: Negative. Eyes: Negative. Respiratory: Negative. Cardiovascular: Negative. Gastrointestinal: Negative. Endocrine: Negative. Genitourinary: Negative. Musculoskeletal: Negative. Skin: Negative. Allergic/Immunologic: Negative. Neurological: Negative. Hematological: Negative. Psychiatric/Behavioral: Negative. Allergies Allergen Reactions Hydralazine Hydroxyzine Other Causes mental changes Phenobarbital Rash Other reaction(s): Other (See Comments), Unknown Propanediol Rash Propranolol Rash Outpatient Medications Prior to Visit Medication Sig Dispense Refill ALPRAZolam (Xanax) 1 MG tablet Take 1 mg by mouth daily. In the afternoon ALPRAZolam (Xanax) 2 MG tablet alprazolam 2 mg tablet TAKE 1 TABLET BY MOUTH TWICE DAILY Cholecalciferol (Vitamin D) 125 MCG (5000 UT) capsule Take by mouth 2 times daily. citalopram (CeleXA) 10 MG tablet take 1 tablet by oral route every day citalopram (CeleXA) 20 MG tablet TAKE 1.5 TABLETS BY MOUTH EVERY DAY esterified estrogens (Menest) 0.625 MG tablet Take 0.625 mg by mouth daily. ferrous sulfate 325 (65 Fe) MG tablet Take 325 mg by mouth daily (with breakfast). finasteride (Proscar) 5 MG tablet Take 5 mg by mouth daily. megestrol (Megace) 20 MG tablet Take 1 tablet (20 mg total) by mouth 2 times daily. 60 tablet 11 spironolactone (Aldactone) 50 MG tablet Take 50 mg by mouth daily. levETIRAcetam (Keppra) 1000 MG tablet Take 1 tablet (1,000 mg) by mouth 2 times daily. 60 tablet 11 megestrol (Megace) 20 MG tablet TAKE 1 TABLET BY MOUTH EVERY 6 HOURS UNTIL BLEEDING STOPS, THEN TAKE 1 TABLET DAILY (Patient not taking: Reported on 05/07/2024) 30 tablet 1 Menest 0.3 MG tablet Take 0.3 mg by mouth daily. (Patient not taking: Reported on 05/07/2024) No facility-administered medications prior to visit. Past Medical History: Diagnosis Date Anxiety Depression Epilepsia (HCC) GERD (gastroesophageal reflux disease) PCOS (polycystic ovarian syndrome) PTSD (post-traumatic stress disorder) no CPAP Sleep apnea Social History Tobacco Use Smoking status: Never Smokeless tobacco: Never Substance Use Topics Alcohol use: Not Currently Past Surgical History: Procedure Laterality Date BRAIN SURGERY 1998 DILATION AND CURETTAGE OF UTERUS 03/08/2024 HYSTEROSCOPY 03/08/2024 Family History Problem Relation Name Age of Onset Heart attack Maternal Grandfather Objective Vitals: BP 128/86 (BP Location: Left arm, Patient Position: Sitting, BP Cuff Size: Large adult) Pulse 83 Ht 5' 4 (1.626 m) Wt (!) 318 lb 2.2 oz (144 kg) BMI 54.61 kg/m General Appearance: Patient is in no [...] 10/28/2020 VITAMIN B12: No results found for: [id number] No results found for: PHENYTOIN, PHENOBARB, VALPROATE, CBMZ No components found for: SAMUEL @[employer] ExchangeLABINFO@ LEVETIRACETAM, IMMUNOASSAY Date Value Ref Range Status 06/21/2023 14.1 6.0 - 46.0 mcg/mL Final Comment: Brivaracetam (Briviact(R), Rikelta(R)) exhibits significant cross-reactivity in the Levetiracetam (Keppra(R), Spritam(R)) immunoassay. If Brivaracetam has been prescribed, order test code 67791 Levetiracetam by LCMSMS. No results found for: REGLA, IMMUNOGLOBUL, OLIGOBANDS No results found for: TTF18TK, HEPCAB No results found for: CRP, ANATITER, ANCA FERRITIN: No results found for: FERRITIN ---- US pelvis transvaginal Narrative: -- Gynecological Report (Signed Final 01/23/2024 01:01 pm) -- PATIENT INFO: ID #: [id number] : [birth year] (38 yrs)(F) Name: JOSSE PENNY Visit Date: 01/23/2024 11:19 am DEEDS -- PERFORMED BY: Attending: Eboni Moise MD Performed By: Bel Lemos RDMS Referred By: YESSI MUNOZ Location: [facility] BLOW MOULDING MACHINE OPERATOR [place] Visit Type: [facility] BLOW MOULDING MACHINE OPERATOR -- SERVICE(S) PROVIDED: Hatchery Attendant Transvaginal [id number] -- INDICATIONS: Excessive bleeding in the premenopausal N92.4 period Unsure on LMP, Bleeding since May 2023 TV ASPHALT DISTRIBUTOR OPERATOR ultrasound -- TECHNIQUE/SCAN QUALITY: Technique: Transvaginal Approach Scan Quality: Technically limited due to body habitus -- COMPARISON: 01/06/2021 PCOS -- HISTORY: Age: 38 Menses: Unknown -- HX COMMENTS: Non latex cover used. -- UTERUS: Uterus: Heterogeneous Position: Anteverted Size (cm) L: 8.39 W: 5.18 H: 4.17 -- ENDOMETRIUM: Endometrium: Thickened Thickness(mm): 16.23 -- CERVIX: Multiple cervical cysts are noted. -- CUL-DE-SAC: No free fluid was visualized -- RIGHT OVARY: Status: Visualized Size (cm) L: 3.59 W: 3.09 H: 2.42 Vol (ml): 14.06 Morphology: Polycystic Type: Simple cyst Size (cm) L: 1.26 W: 1.62 H: 2.47 Vol (ml): 2.64 -- LEFT OVARY: Status: Not visualized -- -- Eboni Moise MD Electronically Signed Final Report 01/23/2024 01:01 pm -- Impression: The right ovary is enlarged and has several, small cysts along the periphery of the ovary. This appearance and ovarian volumes over 10 cc can be associated with PCOS. Clinical correlation is required. The right ovary contains a simple cyst. Left ovary was not visualized based on [facility]. Endometrium is thickened, echogenic and uniform measuring 16.23mm. No increased blood flow is noted. Consider endometrial sampling if clinically indicated. No free fluid or adnexal masses seen. Patient is scheduled to see Dr. Munoz following ultrasound 02/14/2024. 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 Electronically signed by @SALENAR@ on @TDNR@ at @NOWNR@ documented in this encounter [facility] 05-07-2024 Instructions FRANCO Cota CNP - 05/07/2024 8:30 AM EST Continue Keppra 1000mg twic daily Follow up in 1 year or sooner if needed documented in this encounter [facility] 04-23-2024 Telephone encounter Note Noted [facility] 04-23-2024 Miscellaneous Notes Noted Verbal order per Dr. Munoz Addended by: ANGELLA RIDLEY on: 04/22/2024 04:14 PM Modules accepted: Orders Patient states she could not get into [place] and would like the order sent to Dr. Ziyad Harrell at [facility]. Specialty [phone] [facility] called and states they are not taking any referral for PCOS and feel the ASPHALT DISTRIBUTOR OPERATOR can manage this. Called pt to advise she will call back with a new provider. Notified provider New patient referral faxed over per Dr. Munoz. M to update patient on 04/19 at 2:30pm. Scanned into media. Verbal order per Dr. Munoz Pt calling needs referral sent to [facility] for endocrinology phone number is [phone]. Please send referral this is closer to her home Current referral is closed Please advise documented in this encounter [facility] 04-22-2024 Telephone encounter Note Verbal order per Dr. Munoz [facility] 04-22-2024 Note Addended by: ANGELLA ONEILL on: 04/22/2024 04:14 PM Modules accepted: Orders [facility] 04-22-2024 Note Addended by: ANGELLA ONEILL on: 04/22/2024 04:14 PM Modules accepted: Orders [facility] 04-22-2024 Note Addended by: ANGELLA ONEILL on: 04/22/2024 04:14 PM Modules accepted: Orders [facility] 04-22-2024 Note Addended by: ANGELLA ONEILL on: 04/22/2024 04:14 PM Modules accepted: Orders [facility] 04-22-2024 Note Addended by: ANGELLA ONEILL on: 04/22/2024 04:14 PM Modules accepted: Orders [facility] 04-22-2024 Miscellaneous Notes Verbal order per Dr. Munoz Addended by: ANGELLA RIDLEY on: 04/22/2024 04:14 PM Modules accepted: Orders Patient states she could not get into [place] and would like the order sent to Dr. Ziyad Harrell at [facility]. Specialty [phone] [facility] called and states they are not taking any referral for PCOS and feel the ASPHALT DISTRIBUTOR OPERATOR can manage this. Called pt to advise she will call back with a new provider. Notified provider New patient referral faxed over per Dr. Munoz. M to update patient on 04/19 at 2:30pm. Scanned into media. Verbal order per Dr. Munoz Pt calling needs referral sent to [facility] for endocrinology phone number is [phone]. Please send referral this is closer to her home Current referral is closed Please advise documented in this encounter [facility] 04-22-2024 Telephone encounter Note Patient states she could not get into [place] and would like the order sent to Dr. Ziyad Harrell at [facility]. Specialty [phone] [facility] 04-22-2024 Note [facility] called and states they are not taking any referral for PCOS and feel the ASPHALT DISTRIBUTOR OPERATOR can manage this. Called pt to advise she will call back with a new provider. Notified provider [facility] 04-22-2024 Telephone encounter Note [facility] called and states they are not taking any referral for PCOS and feel the ASPHALT DISTRIBUTOR OPERATOR can manage this. Called pt to advise she will call back with a new provider. Notified provider [facility] 04-19-2024 Note New patient referral faxed over per Dr. Kovacevich. STILES to update patient on 04/19 at 2:30pm. Scanned into media. [facility] 04-19-2024 Telephone encounter Note New patient referral faxed over per Dr. Kovacevich. STILES to update patient on 04/19 at 2:30pm. Scanned into media. [facility] 04-19-2024 Miscellaneous Notes New patient referral faxed over per Dr. Munoz. LVM to update patient on 04/19 at 2:30pm. Scanned into media. Verbal order per Dr. Munoz Pt calling needs referral sent to [facility] for endocrinology phone number is [phone]. Please send referral this is closer to her home Current referral is closed Please advise documented in this encounter [facility] 04-19-2024 Telephone encounter Note Verbal order per Dr. Munoz [facility] 04-18-2024 Note Pt calling needs ref erral sent to [facility] for endocrinology phone number is [phone]. Please send referral this is closer to her home Current referral is closed Please advise [facility] 04-18-2024 Telephone encounter Note Pt calling needs referral sent to [facility] for endocrinology phone number is [phone]. Please send referral this is closer to her home Current referral is closed Please advise [facility] 03-28-2024 Note Received a referral for patient to be seen in our office for PCOS. Spoke to patient and offered to schedule her with our office and she stated that she asked her doctor to send a referral to the [facility] f[facility] in [place] since she lives there and she stated when she called them that they never received patient's referral. I advised the patient that she would need to contact her pcp then to have them refax her referral [facility] then and she became verbally abusive with me and stated then put my number on the do not call list Bitch and she hung up on me. [facility] 03-28-2024 Telephone encounter Note Received a referral for patient to be seen in our office for PCOS. Spoke to patient and offered to schedule her with our office and she stated that she asked her doctor to send a referral to the marine f[facility] in [place] since she lives there and she stated when she called them that they never received patient's referral. I advised the patient that she would need to contact her pcp then to have them refax her referral [facility] then and she became verbally abusive with me and stated then put my number on the do not call list Bitch and she hung up on me. [facility] 03-28-2024 Miscellaneous Notes Received a referral for patient to be seen in our office for PCOS. Spoke to patient and offered to schedule her with our office and she stated that she asked her doctor to send a referral to the [facility] in [place] since she lives there and she stated when she called them that they never received patient's referral. I advised the patient that she would need to contact her pcp then to have them refax her referral to [facility] then and she became verbally abusive with me and stated then put my number on the do not call list Bitch and she hung up on me. documented in this encounter [facility] 03-25-2024 History of Present illness Narrative Chief Complaint Patient presents with Post-op Visit 2 week post op hysteroscopy DC on 03/08 HPI Pt here to discuss results ROS: Constitutional - denies fevers or chills Resp - denies CP or SOB CV - denies CP GI - denies nausea, vomiting - denies frequency and dysuria Past Medical History: Diagnosis Date Anxiety Depression Epilepsia (HCC) GERD (gastroesophageal reflux disease) PCOS (polycystic ovarian syndrome) PTSD (post-traumatic stress disorder) no CPAP Sleep apnea Past Surgical History: Procedure Laterality Date BRAIN SURGERY 1997 DILATION AND CURETTAGE OF UTERUS 03/08/2024 HYSTEROSCOPY 03/08/2024 Allergies Allergen Reactions Hydralazine Hydroxyzine Other Causes mental changes Phenobarbital Rash Other reaction(s): Other (See Comments), Unknown Propanediol Rash Propranolol Rash @MEDCMED@ BP 130/84 Ht 1.626 m (5' 4) Wt (!) 147 kg (323 lb) LMP 03/10/2024 (Approximate) BMI 55.44 kg/m PE: Well developed, well nourished Normocephalic, atraumatic CV - normal rate Resp - normal effort Abd - soft, ND MS - no edema Neuro - Pt A&Ox3, NAD Skin - warn and dry Psych - normal affect and behavior Josse was seen today for post-op visit. Diagnoses and all orders for this visit: PCOS (polycystic ovarian syndrome) (Primary) - [facility] Endocrinology; Future Endometrial hyperplasia Other orders - megestrol (Megace) 20 MG tablet; Take 1 tablet (20 mg total) by mouth 2 times daily. Megace Follow up 3 months repeat D&C Follow up in about 3 months (around 06/23/2024). documented in this encounter [facility] 03-14-2024 Note Addended by: DARRELL STERN on: 03/14/2024 09:49 AM Modules accepted: Orders [facility] 03-14-2024 Note Addended by: DARRELL STERN on: 03/14/2024 09:49 AM Modules accepted: Orders [facility] 03-14-2024 Note Addended by: DARRELL STERN on: 03/14/2024 09:49 AM Modules accepted: Orders [facility] 03-14-2024 Note Addended by: DARRELL STERN on: 03/14/2024 09:49 AM Modules accepted: Orders [facility] 03-14-2024 Miscellaneous Notes Addended by: DARRELL ROBERTSON on: 03/14/2024 09:49 AM Modules accepted: Orders Spoke with pt. She is good on refills now. Follow up scheduled for 05/07/24 Message released to patient as written. Patient's further questions if applicable: Please send to: [id number] - [place], [place] - [address] [place] [address] Were all questions from office addressed or relayed to the patient from encounter: Yes Lm for patient to call the office back, please relay providers message. I got a refill request for her Izabela but it is asking [facility] Can you find out where she wants refill sent to? documented in this encounter [facility] 03-14-2024 Telephone encounter Note Spoke with pt. She is good on refills now. Follow up scheduled for 05/07/24 [facility] 03-14-2024 Telephone encounter Note Message released to patient as written. Patient's further questions if applicable: Please send to: [facility] - [place], [place] - [address] [place] [address] Were all questions from office addressed or relayed to the patient from encounter: Yes [employer] [facility] 03-14-2024 Telephone encounter Note Lm for patient to call the office back, please relay providers message. [facility] 03-14-2024 Telephone encounter Note I got a refill request for her Izabela but it is [facility] Can you find out where she wants refill sent to? [facility] 03-08-2024 Note Formatting of this n ote might be different from the original. Patient stepped out from behind cubicle curtain , yelling because staff were taking too long with attempting to arrange transportation for discharge. Patient abruptly left PACU into corridor on second floor followed by Prote[facility] Services. [facility] 03-08-2024 Note Formatting of this n ote might be different from the original. Patient stepped out from behind cubicle curtain , yelling because staff were taking too long with attempting to arrange transportation for discharge. Patient abruptly left PACU into corridor on second floor followed by Protective Services. [facility] 03-08-2024 Miscellaneous Notes Patient stepped out from behind cubicle curtain , yelling because staff were taking too long with attempting to arrange transportation for discharge. Patient abruptly left PACU into corridor on second floor followed by Protective Services. Patient was given a copy of her homegoing instructions and proceeded to tear the packet up. Patient was in bed with curtain partially closed. Dressing self. When explaining to patient she can not not walk to [facility] to find a ride home to [place]. Patient began yelling and screaming that she was leaving and she didn't care what anyone said. Patient became more enraged with yelling and screaming. [facility] called. [facility] protective services immediately arrived to the PACU and continued to attempt to deescalate the situation. It was explained to patient that we cannot allow her to walk a couple of blocks to [facility] and await a ride. Nursing Product Communications Manager notified and on site in PACU. Patient does not want to medicated at this time Patient states pain has gone to a 3. Much less discomfort and cramping. Preop diagnosis: Menorrhagia Postoperative gnosis: Same Operation D&C Surgeon: Luciano Anesthesia: General EBL: Minimal Brief history: Patient is a 38-year-old with PCOS who is scheduled to undergo endometrial sampling. She has been bleeding for several months. She was aware of the risks and benefits associated with the procedure. Due to social circumstances it was elected to proceed with this surgery under monitored anesthesia care. She was aware of the risks and benefits associated with the procedure. Details of procedure: Patient brought the operative suite where she was placed in lithotomy. She was prepped and draped. Timeout was held. She was given monitored anesthesia care. When the patient was adequately anesthetized a weighted speculum was placed in the vagina and the anterior lip of the cervix was grasped with a single-tooth tenaculum. The cervix was prepped with Betadine. The uterus sounded to 10 cm. The cervix was dilated. The cavity was thoroughly curetted. At this point the procedure was terminated and patient was awoken from anesthesia and transferred to the recovery room in stable condition. Both Dr. Munoz and Dr. Prater aware that pt came by [employer] today and states very tearfully that she has no one to pick her up. Pt notified of risks and still wishes to proceed. Patient educated on importance of coughing/ deep breathing after surgery to reduce risk of pneumonia. Patient educated on importance of early mobility to reduce the risk of blood clots. Falls prevention information reviewed with patient. Post-operative pain control and ways to prevent constipation discussed with patient. documented in this encounter [facility] 03-08-2024 Note Formatting of this n ote might be different from the original. Patient was given a copy of her homegoing instructions and proceeded to tear the packet up. [facility] 03-08-2024 Note Formatting of this n ote might be different from the original. Patient was given a copy of her homegoing instructions and proceeded to tear the packet up. [facility] 03-08-2024 Note Formatting of this n ote might be different from the original. Patient was in bed with curtain partially closed. Dressing self. When explaining to patient she can not not walk to [facility] to find a ride home to [place]. Patient began yelling and screaming that she was leaving and she didn't care what anyone said. Patient became more enraged with yelling and screaming. Raya Atwood called. [facility] protective [facility] immediately arrived to the PACU and continued to attempt to deescalate the situation. It was explained to patient that we cannot allow her to walk a couple of blocks to [facility] and await a ride. Nursing Product Communications Manager notified and on site in PACU. [facility] 03-08-2024 Note Formatting of this n ote might be different from the original. Patient was in bed with curtain partially closed. Dressing self. When explaining to patient she can not not walk to [facility] to find a ride home to [place]. Patient began yelling and screaming that she was leaving and she didn't care what anyone said. Patient became more enraged with yelling and screaming. Raya Atwood called. [facility] protective services immediately arrived to the PACU and continued to attempt to deescalate the situation. It was explained to patient that we cannot allow her to walk a couple of blocks to [facility] and await a ride. Nursing Product Communications Manager notified and on site in PACU. [facility] 03-08-2024 Note Formatting of this n ote might be different from the original. Patient does not want to medicated at this time [facility] 03-08-2024 Note Formatting of this n ote might be different from the original. Patient does not want to medicated at this time [facility] 03-08-2024 Note Formatting of this n ote might be different from the original. Patient states pain has gone to a 3. Much less discomfort and cramping. [facility] 03-08-2024 Note Formatting of this n ote might be different from the original. Patient states pain has gone to a 3. Much less discomfort and cramping. [facility] 03-08-2024 Note Patient: Josse Morrow Procedure Summary Date: 03/08/24 Room / Location: [facility] [address] [place] [address] Operating Room Anesthesia Start: 1453 Anesthesia Stop: 1513 Procedure: HYSTEROSCOPY DILATION AND CURETTAGE Diagnosis: Excessive bleeding in the premenopausal period Surgeons: Yessi Munoz MD Responsible Provider: Elan Prater MD Anesthesia Type: TIVA ASA Status: 3 Anesthesia Type: TIVA Vitals Value Taken Time BP 142/87 03/08/24 1523 Temp 97.3f 03/08/24 1523 Pulse 75 03/08/24 1523 Resp 16 03/08/24 1523 SpO2 97 03/08/24 1523 Anesthesia Post Evaluation Patient location during evaluation: PACU Patient participation: complete - patient participated Level of consciousness: awake and alert Pain management: satisfactory to patient Airway patency: patent Dental Injury: no Cardiovascular status: acceptable, blood pressure returned to baseline and hemodynamically stable Respiratory status: acceptable and spontaneous ventilation Hydration status: euvolemic Nausea/Vomiting: controlled No notable events documented. Patient can be discharged once all PACU criteria has been met. [facility] 03-08-2024 Note Patient: Josse Morrow Procedure Summary Date: 03/08/24 Room / Location: [facility] [address] [place] [address] Operating Room Anesthesia Start: 1453 Anesthesia Stop: 1513 Procedure: HYSTEROSCOPY DILATION AND CURETTAGE Diagnosis: Excessive bleeding in the premenopausal period Surgeons: Yessi Munoz MD Responsible Provider: Elan Prater MD Anesthesia Type: TIVA ASA Status: 3 Anesthesia Type: TIVA Vitals Value Taken Time BP 142/87 03/08/24 1522 Temp 97.3f 03/08/24 1522 Pulse 75 03/08/24 1522 Resp 16 03/08/24 1522 SpO2 97 03/08/24 1522 Anesthesia Post Evaluation Patient location during evaluation: PACU Patient participation: complete - patient participated Level of consciousness: awake and alert Pain management: satisfactory to patient Multimodal analgesia pain management approach Airway patency: patent Two or more strategies used to mitigate risk of obstructive sleep apnea Cardiovascular status: acceptable and hemodynamically stable Respiratory status: acceptable Hydration status: acceptable No notable events documented. MIPS #[id number] PONV Patient did not receive an inhalational anesthetic (XX430) MIPS # 424 Perioperative Temperature Management Anesthesia time was less than 60 minutes (4256F) MIPS #477 Multimodal Pain Management Not emergent case Patient was not administered multimodal pain management (G2149) Patient reports no pain in PACU (G2149) MIPS #404 Anesthesiology Smoking Abstinence The patient is not a current smoker (e.g. cigarette, cigar, pipe, e-cigarette/vaping/marijuana) If no stop here (XX404) I completed my handoff to the receiving clinician during which we: 1. Identified the patient 2. Identified the responsible provider 3. Reviewed the pertinent medical history 4. Discussed the surgical course 5. Reviewed intra-op anesthesia management and issues during anesthesia 6. Set expectations for post-procedure period 7. Allowed opportunity for questions and acknowledgement of understanding. [facility] 03-08-2024 Note Formatting of this n ote might be different from the original. Preop diagnosis: Menorrhagia Postoperative gnosis: Same Operation D&C Surgeon: Luciano Anesthesia: General EBL: Minimal Brief history: Patient is a 38-year-old with PCOS who is scheduled to undergo endometrial sampling. She has been bleeding for several months. She was aware of the risks and benefits associated with the procedure. Due to social circumstances it was elected to proceed with this surgery under monitored anesthesia care. She was aware of the risks and benefits associated with the procedure. Details of procedure: Patient brought the operative suite where she was placed in lithotomy. She was prepped and draped. Timeout was held. She was given monitored anesthesia care. When the patient was adequately anesthetized a weighted speculum was placed in the vagina and the anterior lip of the cervix was grasped with a single-tooth tenaculum. The cervix was prepped with Betadine. The uterus sounded to 10 cm. The cervix was dilated. The cavity was thoroughly curetted. At this point the procedure was terminated and patient was awoken from anesthesia and transferred to the recovery room in stable condition. [facility] 03-08-2024 Note Formatting of this n ote might be different from the original. Preop diagnosis: Menorrhagia Postoperative gnosis: Same Operation D&C Surgeon: Luciano Anesthesia: General EBL: Minimal Brief history: Patient is a 38-year-old with PCOS who is scheduled to undergo endometrial sampling. She has been bleeding for several months. She was aware of the risks and benefits associated with the procedure. Due to social circumstances it was elected to proceed with this surgery under monitored anesthesia care. She was aware of the risks and benefits associated with the procedure. Details of procedure: Patient brought the operative suite where she was placed in lithotomy. She was prepped and draped. Timeout was held. She was given monitored anesthesia care. When the patient was adequately anesthetized a weighted speculum was placed in the vagina and the anterior lip of the cervix was grasped with a single-tooth tenaculum. The cervix was prepped with Betadine. The uterus sounded to 10 cm. The cervix was dilated. The cavity was thoroughly curetted. At this point the procedure was terminated and patient was awoken from anesthesia and transferred to the recovery room in stable condition. [facility] 03-08-2024 History and physical note History Of Present Illness Josse Wayne is a 38 y.o. female presenting with bleeding. Past Medical History She has a past medical history of Anxiety, Depression, Epilepsia (HCC), GERD (gastroesophageal reflux disease), PCOS (polycystic ovarian syndrome), PTSD (post-traumatic stress disorder), and Sleep apnea. Surgical History She has a past surgical history that includes Brain surgery (1997) and Dilation and curettage of uterus. Social History She reports that she has never smoked. She has never used smokeless tobacco. She reports that she does not currently use alcohol. She reports that she does not use drugs. Allergies Hydralazine, Hydroxyzine, Phenobarbital, Propanediol, and Propranolol Medications Medications Prior to Admission Medication Sig Dispense Refill Last Dose/Taking ALPRAZolam (Xanax) 1 MG tablet Take 1 mg by mouth daily. In the afternoon 03/07/2024 ALPRAZolam (Xanax) 2 MG tablet alprazolam 2 mg tablet TAKE 1 TABLET BY MOUTH TWICE DAILY 03/08/2024 at 9:00 AM Cholecalciferol (Vitamin D) 125 MCG (5000 UT) capsule Take by mouth 2 times daily. 03/07/2024 Morning citalopram (CeleXA) 10 MG tablet take 1 tablet by oral route every day 03/08/2024 at 9:00 AM citalopram (CeleXA) 20 MG tablet TAKE 1.5 TABLETS BY MOUTH EVERY DAY 03/07/2024 finasteride (Proscar) 5 MG tablet Take 5 mg by mouth daily. 03/07/2024 levETIRAcetam (Keppra) 1000 MG tablet Take 1 tablet (1,000 mg) by mouth 2 times daily. 60 tablet 11 03/08/2024 at 9:00 AM megestrol (Megace) 20 MG tablet 1 tablet every 6 hours until bleeding stops then 1 tablet per day 40 tablet 1 03/07/2024 Menest 0.3 MG tablet Take 0.3 mg by mouth daily. 03/08/2024 at 9:00 AM spironolactone (Aldactone) 50 MG tablet Take 50 mg by mouth daily. 03/07/2024 ferrous sulfate 325 (65 Fe) MG tablet Take 325 mg by mouth daily (with breakfast). (Patient not taking: Reported on 03/08/2024) Not Taking levETIRAcetam (Keppra) 1000 MG tablet Take 1 tablet (1,000 mg) by mouth 2 times daily. 60 tablet 2 Review of Systems Constitutional: Negative. HENT: Negative. Eyes: Negative. Respiratory: Negative. Cardiovascular: Negative. Gastrointestinal: Negative. Endocrine: Negative. Genitourinary: Negative. Musculoskeletal: Negative. Allergic/Immunologic: Negative. Neurological: Negative. Physical Exam Constitutional: Appearance: She is obese. HENT: Head: Normocephalic and atraumatic. Nose: Nose normal. Mouth/Throat: Mouth: Mucous membranes are moist. Pharynx: Oropharynx is clear. Cardiovascular: Rate and Rhythm: Normal rate and regular rhythm. Pulmonary: Effort: Pulmonary effort is normal. Abdominal: General: Abdomen is flat. Palpations: Abdomen is soft. Musculoskeletal: General: Normal range of motion. Cervical back: Normal range of motion. Skin: General: Skin is warm and dry. Neurological: General: No focal deficit present. Mental Status: She is alert. Psychiatric: Mood and Affect: Mood normal. Last Recorded Vitals Blood pressure 133/89, pulse 93, temperature 36.5 C (97.7 F), temperature source Temporal, resp. rate 16, height 1.626 m (5' 4), weight (!) 145 kg (320 lb), last menstrual period 05/12/2023, SpO2 97%. Relevant Results See ultrasound Assessment/Plan Active Problems: There are no active Hospital Problems. Menorrhagia P - D&C Pt with significant social issues and no ride home. This was discussed with anesthesia and patient and plans made. Will proceed with D&C for sampling in OR. [facility] 03-08-2024 Note History Of Present I chaka Wayne is a 38 y.o. female presenting with bleeding. Past Medical History She has a past medical history of Anxiety, Depression, Epilepsia (HCC), GERD (gastroesophageal reflux disease), PCOS (polycystic ovarian syndrome), PTSD (post-traumatic stress disorder), and Sleep apnea. Surgical History She has a past surgical history that includes Brain surgery (1997) and Dilation and curettage of uterus. Social History She reports that she has never smoked. She has never used smokeless tobacco. She reports that she does not currently use alcohol. She reports that she does not use drugs. Allergies Hydralazine, Hydroxyzine, Phenobarbital, Propanediol, and Propranolol Medications Medications Prior to Admission Medication Sig Dispense Refill Last Dose/Taking ALPRAZolam (Xanax) 1 MG tablet Take 1 mg by mouth daily. In the afternoon 03/07/2024 ALPRAZolam (Xanax) 2 MG tablet alprazolam 2 mg tablet TAKE 1 TABLET BY MOUTH TWICE DAILY 03/08/2024 at 9:00 AM Cholecalciferol (Vitamin D) 125 MCG (5000 UT) capsule Take by mouth 2 times daily. 03/07/2024 Morning citalopram (CeleXA) 10 MG tablet take 1 tablet by oral route every day 03/08/2024 at 9:00 AM citalopram (CeleXA) 20 MG tablet TAKE 1.5 TABLETS BY MOUTH EVERY DAY 03/07/2024 finasteride (Proscar) 5 MG tablet Take 5 mg by mouth daily. 03/07/2024 levETIRAcetam (Keppra) 1000 MG tablet Take 1 tablet (1,000 mg) by mouth 2 times daily. 60 tablet 11 03/08/2024 at 9:00 AM megestrol (Megace) 20 MG tablet 1 tablet every 6 hours until bleeding stops then 1 tablet per day 40 tablet 1 03/07/2024 Menest 0.3 MG tablet Take 0.3 mg by mouth daily. 03/08/2024 at 9:00 AM spironolactone (Aldactone) 50 MG tablet Take 50 mg by mouth daily. 03/07/2024 ferrous sulfate 325 (65 Fe) MG tablet Take 325 mg by mouth daily (with breakfast). (Patient not taking: Reported on 03/08/2024) Not Taking levETIRAcetam (Keppra) 1000 MG tablet Take 1 tablet (1,000 mg) by mouth 2 times daily. 60 tablet 2 Review of Systems Constitutional: Negative. HENT: Negative. Eyes: Negative. Respiratory: Negative. Cardiovascular: Negative. Gastrointestinal: Negative. Endocrine: Negative. Genitourinary: Negative. Musculoskeletal: Negative. Allergic/Immunologic: Negative. Neurological: Negative. Physical Exam Constitutional: Appearance: She is obese. HENT: Head: Normocephalic and atraumatic. Nose: Nose normal. Mouth/Throat: Mouth: Mucous membranes are moist. Pharynx: Oropharynx is clear. Cardiovascular: Rate and Rhythm: Normal rate and regular rhythm. Pulmonary: Effort: Pulmonary effort is normal. Abdominal: General: Abdomen is flat. Palpations: Abdomen is soft. Musculoskeletal: General: Normal range of motion. Cervical back: Normal range of motion. Skin: General: Skin is warm and dry. Neurological: General: No focal deficit present. Mental Status: She is alert. Psychiatric: Mood and Affect: Mood normal. Last Recorded Vitals Blood pressure 133/89, pulse 93, temperature 36.5 ?C (97.7 ?F), temperature source Temporal, resp. rate 16, height 1.626 m (5' 4), weight (!) 145 kg (320 lb), last menstrual period 05/12/2023, SpO2 97%. Relevant Results See ultrasound Assessment/Plan Active Problems: There are no active Hospital Problems. Menorrhagia P - D&C Pt with significant social issues and no ride home. This was discussed with anesthesia and patient and plans made. Will proceed with D&C for sampling in OR. [facility] 03-08-2024 History and physical note History Of Present Illness Josse Wayne is a 38 y.o. female presenting with bleeding. Past Medical History She has a past medical history of Anxiety, Depression, Epilepsia (HCC), GERD (gastroesophageal reflux disease), PCOS (polycystic ovarian syndrome), PTSD (post-traumatic stress disorder), and Sleep apnea. Surgical History She has a past surgical history that includes Brain surgery (1997) and Dilation and curettage of uterus. Social History She reports that she has never smoked. She has never used smokeless tobacco. She reports that she does not currently use alcohol. She reports that she does not use drugs. Allergies Hydralazine, Hydroxyzine, Phenobarbital, Propanediol, and Propranolol Medications Medications Prior to Admission Medication Sig Dispense Refill Last Dose/Taking ALPRAZolam (Xanax) 1 MG tablet Take 1 mg by mouth daily. In the afternoon 03/07/2024 ALPRAZolam (Xanax) 2 MG tablet alprazolam 2 mg tablet TAKE 1 TABLET BY MOUTH TWICE DAILY 03/08/2024 at 9:00 AM Cholecalciferol (Vitamin D) 125 MCG (5000 UT) capsule Take by mouth 2 times daily. 03/07/2024 Morning citalopram (CeleXA) 10 MG tablet take 1 tablet by oral route every day 03/08/2024 at 9:00 AM citalopram (CeleXA) 20 MG tablet TAKE 1.5 TABLETS BY MOUTH EVERY DAY 03/07/2024 finasteride (Proscar) 5 MG tablet Take 5 mg by mouth daily. 03/07/2024 levETIRAcetam (Keppra) 1000 MG tablet Take 1 tablet (1,000 mg) by mouth 2 times daily. 60 tablet 11 03/08/2024 at 9:00 AM megestrol (Megace) 20 MG tablet 1 tablet every 6 hours until bleeding stops then 1 tablet per day 40 tablet 1 03/07/2024 Menest 0.3 MG tablet Take 0.3 mg by mouth daily. 03/08/2024 at 9:00 AM spironolactone (Aldactone) 50 MG tablet Take 50 mg by mouth daily. 03/07/2024 ferrous sulfate 325 (65 Fe) MG tablet Take 325 mg by mouth daily (with breakfast). (Patient not taking: Reported on 03/08/2024) Not Taking levETIRAcetam (Keppra) 1000 MG tablet Take 1 tablet (1,000 mg) by mouth 2 times daily. 60 tablet 2 Review of Systems Constitutional: Negative. HENT: Negative. Eyes: Negative. Respiratory: Negative. Cardiovascular: Negative. Gastrointestinal: Negative. Endocrine: Negative. Genitourinary: Negative. Musculoskeletal: Negative. Allergic/Immunologic: Negative. Neurological: Negative. Physical Exam Constitutional: Appearance: She is obese. HENT: Head: Normocephalic and atraumatic. Nose: Nose normal. Mouth/Throat: Mouth: Mucous membranes are moist. Pharynx: Oropharynx is clear. Cardiovascular: Rate and Rhythm: Normal rate and regular rhythm. Pulmonary: Effort: Pulmonary effort is normal. Abdominal: General: Abdomen is flat. Palpations: Abdomen is soft. Musculoskeletal: General: Normal range of motion. Cervical back: Normal range of motion. Skin: General: Skin is warm and dry. Neurological: General: No focal deficit present. Mental Status: She is alert. Psychiatric: Mood and Affect: Mood normal. Last Recorded Vitals Blood pressure 133/89, pulse 93, temperature 36.5 C (97.7 F), temperature source Temporal, resp. rate 16, height 1.626 m (5' 4), weight (!) 145 kg (320 lb), last menstrual period 05/12/2023, SpO2 97%. Relevant Results See ultrasound Assessment/Plan Active Problems: There are no active Hospital Problems. Menorrhagia P - D&C Pt with significant social issues and no ride home. This was discussed with anesthesia and patient and plans made. Will proceed with D&C for sampling in OR. documented in this encounter [facility] 03-08-2024 Note Formatting of this n ote might be different from the original. Both Dr. Munoz and Dr. Prater aware that pt came by [employer] today and states very tearfully that she has no one to pick her up. Pt notified of risks and still wishes to proceed. [facility] 03-08-2024 Note Formatting of this n ote might be different from the original. Both Dr. Munoz and Dr. Prater aware that pt came by [employer] today and states very tearfully that she has no one to pick her up. Pt notified of risks and still wishes to proceed. [facility] 03-08-2024 Note Formatting of this n ote might be different from the original. Patient educated on importance of coughing/ deep breathing after surgery to reduce risk of pneumonia. Patient educated on importance of early mobility to reduce the risk of blood clots. Falls prevention information reviewed with patient. Post-operative pain control and ways to prevent constipation discussed with patient. [facility] 03-08-2024 Note Formatting of this n ote might be different from the original. Patient educated on importance of coughing/ deep breathing after surgery to reduce risk of pneumonia. Patient educated on importance of early mobility to reduce the risk of blood clots. Falls prevention information reviewed with patient. Post-operative pain control and ways to prevent constipation discussed with patient. [facility] 03-08-2024 Note Patient: Josse Morrow Procedure Information Date/Time: 03/08/24 1500 Procedure: HYSTEROSCOPY DILATION AND CURETTAGE - 1 HOUR TOTAL Location: [address] Operating Room Surgeons: Yessi Munoz MD Relevant Problems Neuro/Psych (+) Depressive disorder Past Medical History: Past Medical History: No date: Anxiety No date: Depression No date: Epilepsia (HCC) No date: GERD (gastroesophageal reflux disease) No date: PCOS (polycystic ovarian syndrome) No date: PTSD (post-traumatic stress disorder) No date: Sleep apnea Past Surgical History: Past Surgical History: 1998: BRAIN SURGERY No date: DILATION AND CURETTAGE OF UTERUS Social History: TOBACCO: reports that she has never smoked. She has never used smokeless tobacco. ETOH: reports that she does not currently use alcohol. Social History Substance and Sexual Activity Drug Use Never Family History: Family History Problem Relation Name Age of Onset Heart attack Maternal Grandfather Screening: Having periods Clinical information reviewed: Allergies Physical Exam Airway Mallampati: II TM distance: >3 FB Neck ROM: full Mouth Open: normal Cardiovascular Dental (+) Poor, Missing Pulmonary Abdominal Anesthesia Plan patient is NPO appropriate Any family history or previous problems with anesthesia no ASA 3 TIVA Any family history or previous problems with anesthesia no(Patient has limited social support. Advised to hae ride and person stay with her.) Anesthetic plan and risks discussed with patient. RON Screening Labs: No results found for: WBC, HGB, HCT, MCV, PLT Lab Results Component Value Date GLUCOSE 97 10/28/2020 No echocardiogram results found for the past 14 days No results found for this or any previous visit. Equipment Requests: Additional Equipment Requests [facility] 02-26-2024 Telephone encounter Note PAT: by phone 03.04.2024 at 9 am SX: 12. at 3 pm arrival at 1 pm Post op 03.25.2024 at 1:45 pm Instructions given. [facility] 02-26-2024 Miscellaneous Notes PAT: by phone 03.04.2024 at 9 am SX: 12.27.4 at 3 pm arrival at 1 pm Post op 03.25.2024 at 1:45 pm Instructions given. documented in this encounter [facility] 02-05-2024 History of Present illness Narrative Discussed this. Still bleeding. Nielsce and D&C. documented in this encounter [facility] 01-25-2024 Telephone encounter Note Called and LVM to have pt schedule an appointment to review results, review bloodwork, and discuss concerns for yeast infection. Pt needs an appointment to review further workup [facility] 01-25-2024 Miscellaneous Notes Called and LVM to have pt schedule an appointment to review results, review bloodwork, and discuss concerns for yeast infection. Pt needs an appointment to review further workup Called and spoke w/ pt. She was upset that no one has reached out to her w/ the results of her US. She was very short and had an agitated tone. She stated she was going back to the ED today to be tested because no one in this office cares about her. She wants to cancel her next 12 appts and is demanding someone call and give her US results because that is all she wants. S: Patient spoke to [facility] nurse regarding itchiness, discharge, cycle since may B: Onset of symptoms/concerns 2 weeks A: Patient states she is experiencing odor, itchiness and has been on cycle since may. Patient was frustrated at beginning of call. Patient started with yeast infection symptoms and then told me she was bleeding since May. Patient didn't want to answer anymore questions and said she would rather be seen in the ED and to cancel her next appointments because nobody cares. Patient then demanded to know when her ultrasound results would be done. As I was telling her I would message the doctor she started using profanities and ended the call. R: Unable to complete this call. Upset about wanting to go over ultrasound results. Reason for Disposition Triager unable to complete call (e.g., caller continues to be abusive or caller hangs up) Protocols used: Difficult Oecu-[id number]-OV documented in this encounter [facility] 01-25-2024 Telephone encounter Note Called and spoke w/ pt. She was upset that no one has reached out to her w/ the results of her US. She was very short and had an agitated tone. She stated she was going back to the ED today to be tested because no one in this office cares about her. She wants to cancel her next 12 appts and is demanding someone call and give her US results because that is all she wants. [facility] 01-24-2024 Telephone encounter Note S: Patient spoke to [facility] nurse regarding itchiness, discharge, cycle since may B: Onset of symptoms/concerns 2 weeks A: Patient states she is experiencing odor, itchiness and has been on cycle since may. Patient was frustrated at beginning of call. Patient started with yeast infection symptoms and then told me she was bleeding since May. Patient didn't want to answer anymore questions and said she would rather be seen in the ED and to cancel her next appointments because nobody cares. Patient then demanded to know when her ultrasound results would be done. As I was telling her I would message the doctor she started using profanities and ended the call. R: Unable to complete this call. Upset about wanting to go over ultrasound results. Reason for Disposition Triager unable to complete call (e.g., caller continues to be abusive or caller hangs up) Protocols used: Difficult Smjw-AAPIA-QA [facility] 01-18-2024 Telephone encounter Note Message released to patient as written. Yes Labs consistent with PCOS, can discuss at next visit Patient's further questions if applicable: N/A Were all questions from office addressed or relayed to the patient from encounter: Yes [facility] 01-18-2024 Miscellaneous Notes Message released to patient as written. Yes Labs consistent with PCOS, can discuss at next visit Patient's further questions if applicable: N/A Were all questions from office addressed or relayed to the patient from encounter: Yes documented in this encounter [facility] 01-08-2024 Telephone encounter Note S: The patient is calling the [facility] about a medication B: She hung up prior to talking to a nurse R: Left a message for her to call back if she continues to need assistance. Reason for Disposition Message left on identified voicemail Protocols used: No Contact or Duplicate Contact [id number] [facility] 01-08-2024 Miscellaneous Notes S: The patient is calling the [facility] about a medication B: She hung up prior to talking to a nurse R: Left a message for her to call back if she continues to need assistance. Reason for Disposition Message left on identified voicemail Protocols used: No Contact or Duplicate Contact [id number] documented in this encounter [facility] 01-03-2024 History of Present illness Narrative Chief Complaint Patient presents with Vaginal Bleeding Pt bleeding since May Heavy bleeding Passing clots with cramping HPI Can't stop bleeding Some cramping This has been going on for several months ROS: Constitutional - denies fevers or chills Resp - denies CP or SOB CV - denies CP GI - denies nausea, vomiting - denies frequency and dysuria Past Medical History: Diagnosis Date Anxiety Depression Epilepsia (HCC) PCOS (polycystic ovarian syndrome) PTSD (post-traumatic stress disorder) Past Surgical History: Procedure Laterality Date BRAIN SURGERY 1997 Allergies Allergen Reactions Hydralazine Hydroxyzine Other Causes mental changes Phenobarbital Rash Other reaction(s): Other (See Comments), Unknown Propanediol Rash Propranolol Rash @MEDCMED@ BP 138/86 Ht 1.626 m (5' 4) Wt (!) 158 kg (348 lb) LMP 05/26/2023 (Approximate) BMI 59.73 kg/m PE: Well developed, well nourished Normocephalic, atraumatic CV - normal rate Resp - normal effort Abd - soft, ND MS - no edema Neuro - Pt A&Ox3, NAD Skin - warn and dry Psych - normal affect and behavior Josse was seen today for vaginal bleeding. Diagnoses and all orders for this visit: Excessive bleeding in premenopausal period (Primary) - 17-Hydroxyprogesterone; Future - Prolactin; Future - Testo,Free/Total (Sendout); Future - TSH; Future - hCG, quantitative; Future - DHEA-sulfate; Future - Insulin; Future - Glucose, random; Future - US pelvis transvaginal; Future - CBC; Future - 17-Hydroxyprogesterone - Prolactin - Testo,Free/Total (Sendout) - TSH - hCG, quantitative - DHEA-sulfate - Insulin - Glucose, random - CBC Other orders - megestrol (Megace) 20 MG tablet; 1 tablet every 4-6 hours until bleeding stops then 1 tablet per day We discussed work up and labs and possible biopsy Follow up for medical sales representative us. documented in this encounter [facility] 09-27-2023 Telephone encounter Note Patient returned call. She has not done any treatment for her knee outside of [facility]. Patient declines a cortisone injection as she does not like steroid use. She is willing to try NSAID (send to [facility]) and PT. Please place orders. Notify patient once completed. [facility] 09-27-2023 Miscellaneous Notes Patient returned call. She has not done any treatment for her knee outside of [facility]. Patient declines a cortisone injection as she does not like steroid use. She is willing to try NSAID (send to [facility]) and PT. Please place orders. Notify patient once completed. I called and left a message for the patient to contact the office. No cortisone injections given in the right knee. No documented PT since 2017 at [facility]. No NSAID use documented since [...] into right knee. documented in this encounter [facility] 09-27-2023 Telephone encounter Note I called and left a message for the patient to contact the office. No cortisone injections given in the right knee. No documented PT since 2016 at [facility]. No NSAID use documented since 2020. [facility] 09-27-2023 Telephone encounter Note === PHARMACY TEAM ==== ADDITIONAL INFORMATION NEEDED/REQUESTED Case Submitted: No Request Type: Provider Date of Service: tbs Additional Information Needed: per payer policy pt must have trail/failure of the following: Pt/hep Nsiads, And CSI. Please advise if pt has completed the above. Thank you. Request from Payor by: N/A Email Sent to: ANTHONY GARVIN V Requested Clinicals/Information Sent: N/A [facility] 09-27-2023 Miscellaneous Notes === PHARMACY TEAM ==== [...] Clinicals/Information Sent: N/A documented in this encounter [facility] 09-25-2023 Note [facility] Medical Records Department [address] [place] [address] Discharge Summary 09/25/23 0901 MR#: [id number] Acct: [id number] Name: JOSSE WAYNE Rep #: [id number] : 1985 38 From: Jones Toscano DO PCP: Dr. Peter Maya MD Status:DIS IN Location: [place] [address] Providers Date of Admission: 09/22/23 Date of Discharge: 09/23/23 Primary Care Physician: Peter Maya MD Reason For Visit: DRUG OVERDOSE Diagnosis Discharge Diagnosis (1) Suicide attempt: Status: Acute Code(s): T14.91XA - Suicide attempt, initial encounter Plan 1. Suicide attempt-again patient will be seen by crisis, she will need transfer to a psychiatric facility for inpatient care #2 bipolar disorder-complicates care, management, recovery, and prognosis #3 chronic anxiety/depression-complicates care, management, recovery, and prognosis #4 seizure disorder-patient is on Keppra #5 morbid obesity-complicates care, management, recovery, and prognosis #6 hypokalemia Medications at Discharge Home Medications biotin 5,000 mcg disintegrating tablet 1 tab PO DAILY mouth care 09/06/17 cholecalciferol (vitamin D3) 25 mcg (1,000 unit) tablet 2,000 unit PO DAILY supplement 09/05/18 alprazolam 2 mg tablet (Xanax) 2 mg PO BID anxiety 07/28/20 alprazolam 1 mg tablet (Xanax) 1 mg PO QHS anxiety 10/18/21 citalopram 20 mg tablet (Celexa) 20 mg PO DAILY depression 10/18/21 citalopram 10 mg tablet 10 mg PO Q24H DEPRESSION 02/06/23 levetiracetam 1,000 mg tablet 1,000 mg PO BID SEIZURES 02/06/23 Hospital Course Operations None Procedures None Summary of Care Provided Minutes Spent on Discharge: 31 Hospital Course: This 38-year-old white female was seen in the emergency room at [facility] stating that she took large amounts of aspirin, Naprosyn, and ibuprofen in an attempt to end her life. She has a history of depression and previous suicide attempts. Labs obtained in the emergency room included a CBC which was unremarkable, patient's chemistry panel was remarkable for potassium of 3.4 and a bilirubin of 1.2. Patient's AST was slightly elevated and her ALT was slightly elevated. Patient was given activated charcoal but vomited it up shortly after ingesting it. Patient was admitted to PCU, she was evaluated the following day and felt to be medically stable, crisis saw the patient and recommended transfer to a psych unit for further care. I filled out the pink slip on the patient. On 09/23/2023, patient was seen and examined: On examination she does not appear to be in any distress. Vital signs as documented. Skin warm and dry and without overt rashes. Neck without JVD, thyroid appears normal, trachea is midline, neck is supple. Lungs clear, normal air movement was noted. Heart exam notable for regular rhythm, normal sounds and absence of murmurs, rubs or gallops. Abdomen unremarkable and without evidence of organomegaly, masses, or abdominal aortic enlargement, bowel sounds are present in all 4 quadrants, no abdominal tenderness was noted. Extremities nonedematous, no cyanosis was noted, no clubbing was noted. Neuro: Cranial nerves II through XII are grossly intact, no focal motor deficits were noted, sensation to light touch and pinprick is intact, motor exam 5/5 throughout. Psych: Patient is alert and oriented x3, she has a flat affect. On 09/23/2023, patient was transferred to an inpatient psych unit for further care, at that time she was in stable condition Weight / BMI Weight Weight: 147.1 kg Body Mass Index (BMI) 55.6 ABG / Lab / Microbiology Data 09/23/23 05:36 09/23/23 05:36 Meaningful Use Info Meaningful Use Meaningful Use Diagnoses (Choose all that apply): None applicable Ischemic Stroke Statin Dosing Therapy Reference: STATIN DOSE THERAPY REFERENCE: * Patients > 75 years receive moderate or high dose statin therapy. * Patients 75 years or YOUNGER should receive HIGH intensity statin dose unless contraindicated. You will be required to document reason for non-treatment if statin daily dose does not meet guidelines. HIGH DOSE STATIN THERAPY DAILY Atorvastatin > than or = to 40 mg Rosuvastatin > than or = to 20 mg Amlodipine + Atorvastatin > than or = to 2.5/40 mg Ezetimibe + Simvastatin 10/80 mg Simvastatin 80mg Discharge Plan Admission Admit Date/Time: 09/22/23 17:22 Attending Provider: Jones Toscano Primary Care Provider: Peter Maya Consulting Providers: Bon Griffith Discharge Orders/Prescriptions Prescriptions: No Action biotin 5,000 MCG tablet,disintegrating 1 tab PO DAILY cholecalciferol (vitamin D3) 1,000 UNIT tablet 2,000 unit PO DAILY alprazolam [Xanax] 2 mg Tablet 2 mg PO BID alprazolam [Xanax] 1 mg Tablet 1 mg PO QHS citalopram [Celexa] 20 mg Tablet 20 mg (more content not included)... [facility] 09-19-2023 Telephone encounter Note === PHARMACY TEAM ==== ADDITIONAL INFORMATION NEEDED/REQUESTED Case Submitted: No Request Type: Provider Date of Service: [facility] Additional Information Needed: per payer policy pt must have trail/failure of the following: Pt/hep Nsiads, And CSI. Please advise if pt has completed the above. Thank you. Request from Payor by: N/A Email Sent to: ANTHONY GARVIN V Requested Clinicals/Information Sent: N/A Was this already addressed? [facility] 09-18-2023 Telephone encounter Note Any updates on this ? [facility] 09-18-2023 Miscellaneous Notes Any updates on this [...] Clinicals/Information Sent: N/A documented in this encounter [facility] 09-08-2023 Telephone encounter Note === PHARMACY TEAM ==== ADDITIONAL INFORMATION NEEDED/REQUESTED Case Submitted: No Request Type: Provider Date of Service: tbs Additional Information Needed: per payer policy pt must have trail/failure of the following: Pt/hep Nsiads, And CSI. Please advise if pt has completed the above. Thank you. Request from Payor by: N/A Email Sent to: ANTHONY GARVIN V Requested Clinicals/Information Sent: N/A [facility] 09-07-2023 Telephone encounter Note Referral still pending with insurance. [facility] 08-25-2023 Telephone encounter Note Referral placed for Gel One injection x 1 into right knee. [facility] 08-25-2023 Note HNO ID: [id number] Author: ANTHONY GARVIN, DO Service: ? Author [...] DATE: August 25, 2023 TIME: 2:08 PM [facility] 08-25-2023 History of Present illness Narrative Images from the original note [...] BIOPSY SINGLE/MULTIPLE 05/23/08 PAST SURGICAL HISTORY OF 1998 RIGHT TEMPORAL LOBECTOMY & IMPLANTATION OF IMPLANTS [...] Intervention/Comfort measure: Reposition documented in this encounter [facility] 08-25-2023 Note HNO ID: [id number] Author: MAKEDA BLAKELY MA Service: ? Author Type: Passenger Train Braker Type: Progress Notes Filed: 08/25/2023 14:11 Note Text: AMB ROOMING INTAKE FLOWSHEET DATA Pain Pain Level: 6 Pain Location: Knee-Right Description: Other: See comment (popping) Duration Amount of Time: (ongoing) Frequency: Intermittent Intervention/Comfort measure: Reposition [facility] 08-25-2023 History of Present illness Narrative Radiology Service Progress Note PATIENT [...] PATIENT PRESENTS WITH AN IMPLANTABLE OR ATTACHED PHYSICIAN ANESTHESIOLOGIST: No RADIOLOGY DEPARTMENT: General X-ray: Exam(s) Completed: Lower Extremity X-Ray(s): Knee, AP / Lat / Tunne / Merchant Right and Wt. Bearing PERIPHERAL IV DATA: Not applicable SIGNED BY: RT Yandel(Katie) August 25, 2023 2:00 PM documented in this encounter [facility] 08-25-2023 Note HNO ID: [id number] Author: MARIAM SALAZAR RT(Katie) Service: ? Author [...] PATIENT PRESENTS WITH AN IMPLANTABLE OR ATTACHED PHYSICIAN ANESTHESIOLOGIST: No RADIOLOGY DEPARTMENT: General X-ray: Exam(s) Completed: Lower Extremity X-Ray(s): Knee, AP / Lat / Tunne / Merchant Right and Wt. Bearing PERIPHERAL IV DATA: Not applicable SIGNED BY: RT Yandel(R) August 25, 2023 2:00 PM [facility] 06-21-2023 History of Present illness Narrative Visit type: Established Patient Reason [...] was in 2013 She is working for [employer] with plans to build a home She [...] 10/28/2020 VITAMIN B12: No results found for: [id number] No results found for: PHENYTOIN, PHENOBARB, VALPROATE, CBMZ No components found for: TOPIRA @RESULTINGLABINFO@ No results found for: LEVETIRACETA, FERRITIN, CRP, SUKHDEV, ANCA No results found for: REGLA, IMMUNOGLOBUL, OLIGOBANDS No results found for: TIC33GL, HEPCAB No results found for: CRP, ANATITER, ANCA FERRITIN: No results found for: FERRITIN ---- US NON OB TRANSVAGINAL Narrative: Gynecological Report (Signed Final 01/07/2021 01:43 pm) Patient Info ID #: [id number] : [birth year] (35 yrs)(F) Name: JOSSE WAYNE Visit Date: 01/06/2021 01:12 pm Performed By Attending: Yessi Location: [facility] BLOW MOULDING MACHINE OPERATOR Tammy Salazar Performed By: Bel Lemos Visit Type: [facility] BLOW MOULDING MACHINE OPERATOR RDMS Referred By: YESSI MUNOZ Service(s) Provided Hatchery Attendant Transvaginal [id number] Indications Polycystic ovarian syndrome E28.2 Ovarian cyst (right) N83.201 LMP 01/03/2021 TV ASPHALT DISTRIBUTOR OPERATOR ultrasound Technique/Scan Quality Technique: Transvaginal Approach Comparison [...] 01/06/2021. *Ultrasound cannot detect all pelvic or ASPHALT DISTRIBUTOR OPERATOR abnormalities and normal findings cannot guarantee the [...] & Plan notes found for this encounter. Demetrius Robertson APRN - EXPERIENCE DESIGN DIRECTOR I spent 20 minutes caring for this patient today, reviewing labs, records, seeing the patient, documenting in the record and arranging for studies. Electronically signed by @MEMDNR@ on @TDNR@ at @NOWNR@ documented in this encounter [facility] 06-21-2023 Instructions FRANCO Cota CNP - 06/21/2023 9:00 AM EDT Continue Keppra 1000mg twice daily Check level Follow up in April documented in this encounter [facility] 05-10-2023 History of Present illness Narrative Patient presents with: Sore Throat: [...] for the last year. She sees a sales development consultant so will follow up at [facility]. Surjit Tidwell MD documented in this encounter [facility] 04-26-2023 History of Present illness Narrative This note was created using [employer]. Subjective Josse Wayne is a 37 year old female. HPI 37-year-old female presents for sinus congestion, sinus pressure, cough x 2 weeks. Patient states that she started getting sick at the beginning of April with nasal congestion, and cough. She states that she now has worsening sinus pressure. She is coughing up some phlegm. States she has been taking [id number] cough and cold medications with minimal improvement. [...] evaluation. ERVIN Banda documented in this encounter [facility] 04-18-2023 Telephone encounter Note Last ov- 07/08/22 Next ov- 07/11/23 [facility] 04-18-2023 Miscellaneous Notes Last ov- 07/08/22 Next ov- 07/11/23 documented in this encounter [facility] 02-14-2023 History of Present illness Narrative POPULATION HEALTH NAVIGATION OUTREACH Action/February 14, 2023 Juany Attribution Member- Chart review- Dejan Eduardo Annual Wellness A1C- Per Juany Flu shot Aubrie Rich MA Patient Identified by Name and : NO Outreach Outcome/Action Unable to reach patient: Left message Did you use a PCP flex slot to schedule this appointment? N/A Reason for Outreach Care Gap or Scheduling/Wellness visits Payer: Payor: JUANY [employer] / Plan: ANTHEM MEDIBLUE HMO / Product Type: HMO / Care Gap Reviewed:: Annual Wellness visit HBA1C Flu Vaccine Reminder: Reminder note to check Health Maintenance for items below Health Maintenance items due: Influenza Vaccine(1) due on 11/11/2022 Navigation Signature: Aubrie Rich MA February 14, 2023 1:46 PM documented in this encounter [facility] 01-06-2023 Note HNO ID: [id number] Author: Nita Falk Service: ? Author Type: [...] Gap or Scheduling/Wellness visits Payer: Payor: JUANY [employer] AND [employer] / Plan: ANTHEM MEDIBLUE HMO / Product Type: HMO / Care Gap Reviewed:: Annual Wellness visit Diabetic Eye Exam HBA1C Navigation Signature: Nita Falk January 06, 2023 4:03 PM [facility] 01-02-2023 Note HNO ID: [id number] Author: Nita Falk Service: ? Author Type: ? Type: Progress Notes Filed: 01/02/2023 2:23 PM Note Text: POPULATION HEALTH NAVIGATION OUTREACH Action/FYI Patient Identified by Name and : YES, via phone Outreach Outcome/Action Unable to reach patient: Left message Reason for Outreach Care Gap or Scheduling/Wellness visits Payer: Payor: JUANY [employer] / Plan: ANTHEM MEDIBLUE HMO / Product Type: HMO / Care Gap Reviewed:: Annual Wellness visit Diabetic Eye Exam HBA1C Navigation Signature: Nita Falk January 02, 2023 2:20 PM [facility] 01-02-2023 Note Patient Outreach (AG FAMMARIA FERNANDA) TONEJOSSE ([id number]) 1985 F Date Time Provider Department 01/02/23 NITA FALK During your visit today, we recorded the following information about you: Nita Falk 01/02/2023 2:23 PM Signed POPULATION HEALTH NAVIGATION OUTREACH Action/FYI Patient Identified by Name and : YES, via phone Outreach Outcome/Action Unable to reach patient: Left message Reason for Outreach Care Gap or Scheduling/Wellness visits Payer: Payor: JUANY [employer] / Plan: ANTHEM MEDIBLUE HMO / Product [...] Rash Date Reviewed: 03/02/2022 Reviewed by: Gabe Pierre, BROKER IN CHARGE.EXPERIENCE DESIGN DIRECTOR - Fully Assessed Reason for Visit: Population [...] Encounter Status:Closed by NITA FALK on 01/02/23 [facility] 11-29-2022 Telephone encounter Note Last ov- 07/08/22 Next ov- 07/11/23 [facility] 11-29-2022 Miscellaneous Notes Last ov- 07/08/22 Next ov- 07/11/23 documented in this encounter [facility] 09-05-2022 History of Present illness Narrative Josse Wayne is identified through a medication adherence outreach initiative based on pharmacy claims data from [employer] (insurer) for Non-insulin DM medication(s). Patient is [...] time calling since last fill, no answer, m Chantel Rushing documented in this encounter [facility] 07-22-2022 History of Present illness Narrative Josse Wayne is identified through a medication adherence outreach initiative based on pharmacy claims data from [employer] (insurer) for Non-insulin DM medication(s). Patient is [...] LVM Rafia Mcgarry documented in this encounter [facility] 07-15-2022 Telephone encounter Note Message released to patient as written. Patient's further questions if applicable: No Were all questions from office addressed or relayed to the patient from encounter: Yes [facility] 07-15-2022 Miscellaneous Notes Message released to patient as written. Patient's further questions if applicable: No Were all questions from office addressed or relayed to the patient from encounter: Yes Lm for patient to call the office back, please let her know we did receive the Levetiracetam levels from . Lm for patient to call the office back, please let her know we did receive the Levetiracetam levels from . Name of caller: Josse Contact phone number: [phone] Relationship to Patient: patient Provider: ALEJANDRO Robertson Practice: [facility] [place] Chief Complaint/Reason for Call: Patient would like [...] their call: Yes documented in this encounter [facility] 07-15-2022 Telephone encounter Note Lm for patient to call the office back, please let her know we did receive the Levetiracetam levels from . [facility] 07-14-2022 Telephone encounter Note Lm for patient to call the office back, please let her know we did receive the Levetiracetam levels from . [facility] 07-13-2022 Telephone encounter Note Name of caller: Josse Contact phone number: [phone] Relationship to Patient: patient Provider: ALEJANDRO Robertson Practice: [facility] [place] Chief Complaint/Reason for Call: Patient would like to know if the office received her lab work results from 07/11/22. She states she would like to know as there has been problem with the office receiving her lab work results. Please advise. Best time of day caller can be reached: any Patient advised that office/PCP has 24-48 business hours to return their call: Yes [facility] 07-13-2022 Telephone encounter Note Images from the original note were not included. [facility] 07-13-2022 Miscellaneous Notes Images from the original note were not included. documented in this encounter [facility] 07-08-2022 History of Present illness Narrative Visit type: Established Patient Reason [...] 10/28/2020 VITAMIN B12: No results found for: [id number] No results found for: PHENYTOIN, PHENOBARB, VALPROATE, CBMZ No components found for: TOPIRA @RESULTINGLABINFO@ No results found for: LEVETIRACETA, FERRITIN, CRP, SUKHDEV, ANCA No results found for: REGLA, IMMUNOGLOBUL, OLIGOBANDS No results found for: NBI06MJ, HEPCAB No results found for: CRP, ANATITER, ANCA, ANCA FERRITIN: No results found for: FERRITIN ---- US NON OB TRANSVAGINAL Narrative: Gynecological Report (Signed Final 01/07/2021 01:43 pm) Patient Info ID #: [id number] : [id number] (35 yrs)(F) Name: JOSSE WAYNE Visit Date: 01/06/2021 01:12 pm Performed By Attending: Yessi Location: [facility] BLOW MOULDING MACHINE OPERATOR Tammy Salazar Performed By: Bel Lemos Visit Type: [facility] BLOW MOULDING MACHINE OPERATOR RDMS Referred By: YESSI MUNOZ Service(s) Provided Hatchery Attendant Transvaginal 48509 Indications Polycystic ovarian syndrome E28.2 Ovarian cyst (right) N83.201 LMP 01/03/2021 [employer] DISTRIBUTOR OPERATOR ultrasound Technique/Scan Quality Technique: Transvaginal Approach Comparison [...] 01/06/2021. *Ultrasound cannot detect all pelvic or ASPHALT DISTRIBUTOR OPERATOR abnormalities and normal findings cannot guarantee the [...] & Plan notes found for this encounter. FARNCO Cota CNP I spent 20 minutes caring for this patient today, reviewing labs, records, seeing the patient, documenting in the record and arranging for studies. Electronically signed by @HANNAH@ on @TDNR@ at @NOWNR@ documented in this encounter [facility] 07-08-2022 Instructions FRANCO Cota CNP - 07/08/2022 1:30 PM EDT Continue Keppra 1000mg twice daily (I sent new script for 1000mg tabs-so take 1 tab twice daily) Check level in am PRIOR to am dosing documented in this encounter [facility] 07-01-2022 History of Present illness Narrative Josse Wayne is identified through a medication adherence outreach initiative based on pharmacy claims data from [employer] (insurer) for Non-insulin DM medication(s). Patient is [...] Yesica Wilder Pharm-T documented in this encounter [facility] 06-07-2022 History of Present illness Narrative CC: Patient presents with: Nasal [...] Patient agreeable to treatment plan. Senait Barron APRN.ALEJANDRO documented in this encounter [facility] 04-20-2022 Telephone encounter Note LM for pt to contact billing dept @ [phone] & to call the ofc back if needed [facility] 04-20-2022 Miscellaneous Notes LM for pt to contact billing dept @ [phone] & to call the ofc back if needed Noted! Pt needs to speak with the billing dept. This is not something we handle. Has this been resolved? Please advise Name of caller: Josse Wayne Contact phone number: [phone] Relationship to Patient: patient Provider: Dr Munoz Practice: [facility] Chief Complaint/Reason for Call: Pt states that she continually gets bills from this ofc & she should not be getting them. Pt has primary & secondary ins. Pt cancelled 03.30.22 appt & states she will reschedule when this is resolved. Please advise Best time of day caller can be reached: Any Patient advised that office/PCP has 24-48 business hours to return their call: Yes documented in this encounter [facility] 04-08-2022 Telephone encounter Note Noted! Pt needs to speak with the billing dept. This is not something we handle. [facility] 04-08-2022 Telephone encounter Note Has this been resolved? Please advise [facility] 03-25-2022 Telephone encounter Note Name of caller: Josse Wayne Contact phone number: [phone] Relationship to Patient: patient Provider: Dr Munoz Practice: [facility] Chief Complaint/Reason for Call: Pt states that she continually gets bills from this ofc & she should not be getting them. Pt has primary & secondary ins. Pt cancelled 03.30.22 appt & states she will reschedule when this is resolved. Please advise Best time of day caller can be reached: Any Patient advised that office/PCP has 24-48 business hours to return their call: Yes [facility] 03-02-2022 Note HNO ID: [id number] Author: Gabe Pierre APRN.EXPERIENCE DESIGN DIRECTOR Service: ? Author Type: Nurse Practitioner Type: Progress Notes Filed: 03/02/2022 3:39 PM Note Text: This note was created using [employer]. Subjective Josse Wayne is a 36 year old female here today to establish care. PMH PTSD, PCOS, obesity, hirsutism, epilepsy. Former PCP Dr Vazquez in [place]. Anxiety, Depression, PTSD: chronic, stable. She is seeing psychiatrist at [facility]. She is taking Celexa 30 mg daily, [...] She is seeing Dr Anderson Pedroza in [place]. Reports last seizure 2012. Reports her keppra [...] and COVID vaccines. She follows up with [employer] DISTRIBUTOR OPERATOR regularly. ALLERGIES Allergen Reactions Phenobarbital Rash Current [...] 110/78 (BP Site: (more content not included)... [facility] 03-02-2022 History of Present illness Narrative Images from the original note were not included. This note was created using [employer]. Subjective Josse Wayne is a 36 year old female here today to establish care. PMH PTSD, PCOS, obesity, hirsutism, epilepsy. Former PCP Dr Vazquez in [place]. Anxiety, Depression, PTSD: chronic, stable. She is seeing psychiatrist at [facility]. She is taking Celexa 30 mg daily, [...] She is seeing Dr Anderson Pedroza in [place]. Reports last seizure 2012. Reports her keppra [...] and COVID vaccines. She follows up with ASPH[employer] DISTRIBUTOR OPERATOR regularly. ALLERGIES Allergen Reactions Phenobarbital Rash Current [...] (Oral) Resp 24 Ht 162.6 cm (5' 4) Wt (!) 139.7 kg (308 lb) LMP [...] diet of 1000 mg/day for under 50, 4461-6675 mg/day for 50+ - Discussed need and [...] stable. - continue metformin and management with ASPHALT DISTRIBUTOR OPERATOR 5. 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 Continue management with Neuro Gabe Pierre APRN.ALEJANDRO documented in this encounter [facility] 02-28-2022 Miscellaneous Notes Letter faxed Blessing Amezcua [...] to office for appt on 03/02/22 fax [phone] jojo Was Patient Referred to [facility]/Seek Emergency Treatment (Y/N): n Did Patient Agree (Y/N): n Was An Attempt Made To Transfer The Patient To The Office (Y/N): n Were You Able To Reach Someone At The Office (Y/N): n If Yes - Patient Was Transferred To (Caregivers Name): n If No - Which [facility] Leadership Vending Service Technician Did You Speak With Regarding This Patient: n Was an appointment scheduled (Y/N): n Reason patient was requesting visit (RFV/signs and symptoms/diagnosis) : na Person calling if other than patient: na Return call to if other than patient: na Best contact number: [phone] Thank you, Jessica Monson February 24, 2022 1:09 PM documented in this encounter [facility] 02-28-2022 Miscellaneous Notes Letter faxed Blessing Amezcua MA ----- Message from Tisha Martinez sent at 02/24/2022 1:28 PM EST ----- Regarding: FW: new pt ----- Message ----- From: Jessica Monson Sent: 02/24/2022 1:11 PM EST To: [facility] Triage Pool Subject: new pt [...] to office for appt on 03/02/22 fax [phone] jojo Was Patient Referred to [facility]/Seek Emergency Treatment (Y/N): n Did Patient Agree (Y/N): n Was An Attempt Made To Transfer The Patient To The Office (Y/N): n Were You Able To Reach Someone At The Office (Y/N): n If Yes - Patient Was Transferred To (Caregivers Name): n If No - Which [facility] Leadership Vending Service Technician Did You Speak With Regarding This Patient: n Was an appointment scheduled (Y/N): n Reason patient was requesting visit (RFV/signs and symptoms/diagnosis) : na Person calling if other than patient: na Return call to if other than patient: na Best contact number: [phone] Thank you, Jessica Monson February 24, 2022 1:09 PM documented in this encounter [facility] 01-21-2022 History of Present illness Narrative SUBJECTIVE: Josse Wayne is a [...] Intervention/Comfort measure: Heat documented in this encounter [facility] 09-28-2021 Miscellaneous Notes Pt returned call and was given below information. Carol Mae LPN Message left asking pt to call the office for test results. Carol Mae LPN Please let the pt know that her blood is negative for infection. Katerine Hanson APRN.ALEJANDRO documented in this encounter [facility] 08-05-2021 History of Present illness Narrative POPULATION HEALTH NAVIGATION OUTREACH Action/FYI Patient returned my call Patient does not have a PCP at [facility] and does not want one. Patient would like the Population Health Navigation calls to end, she may sometimes use the [facility] walk in clinic or E.R. if needed but will not use outpatient providers at [facility]. Entered information into patient's demographics Pt identified by name and : YES, via phone Outreach Outcome/Action Spoke to patient or caregiver: PCP confirmed / updated Patient declined Navigation Signature: Soha Mathew MA August 05, 2021 2:42 PM POPULATION HEALTH NAVIGATION OUTREACH Action/FYI Care Gap Reviewed:: Annual Wellness visit - verify PCP [place] Pt identified by name and : NO Outreach Outcome/Action Unable to reach patient: Left message Reason for Outreach Care Gap or Scheduling/Wellness visits Payer: Payor: [employer]IELD / Plan: [employer] HMO / [...] 2021 8:06 AM documented in this encounter [facility] 07-09-2021 Instructions Bela Joseph APRN.CNP - 07/09/2021 [...] Discussed expected course of illness Bela Joseph APRN.EXPERIENCE DESIGN DIRECTOR TEMPOROMANDIBULAR JOINT (TMJ) PAIN: Your exam shows [...] within one week. documented in this encounter [facility] 07-09-2021 History of Present illness Narrative Subjective HPI Josse Wayne is [...] ear normal. Nose: Nose normal. 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 Mouth: Mucous membranes are moist. Dentition: Normal [...] Bela Joseph APRN.CNP documented in this encounter [facility] 10-20-2020 History of Present illness Narrative Radiology Service Progress Note PATIENT [...] 2020 5:54 PM documented in this encounter [facility] 07-13-2015 History of Past i llness Narrative [...] of this encounter (statuses as of 07/09/2021) [facility] History of Past illness Narrative* Problem Noted [...] of this encounter (statuses as of 08/05/2021) [facility] History of Past illness Narrative* Problem Noted [...] of this encounter (statuses as of 09/28/2021) [facility] History of Past illness Narrative* Problem Noted Date Resolved Date Morbid obesity due to excess calories 07/13/2015 03/12/2020 Excessive and frequent menstruation with irregul ar cycle 07/07/2015 07/13/2015 Seizure 06/01/2015 03/12/2020 Overview: Dr. Ordonez Gonorrhjuliano 03/19/2013 03/12/2020 Acute gastritis without mention of hemorrhage 04/11/2018 Other symptoms referable to back 11/27/2006 04/11/2018 ABSCESS ABDOMINAL WALL 05/30/2005 0 documented as of this encounter (statuses as of 01/21/2022) [facility] History of Past illness Narrative* Problem Noted [...] of this encounter (statuses as of 02/28/2022) [facility] History of Past illness Narrative* Problem Noted Date Resolved Date Morbid obesity due to excess calories 07/13/2015 03/12/2020 Excessive and frequent menstruation with irregul ar cycle 07/07/2015 07/13/2015 Seizure 06/01/2015 03/12/2020 Overview: Dr. Ordoenz Gonorrhea 03/19/2013 03/12/2020 Acute gastritis without mention of hemorrhage 04/11/2018 Other symptoms referable to back 11/27/2006 04/11/2018 Bipolar disorder, unspecified 03/31/2006 ABSCESS ABDOMINAL WALL 05/30/2005 0 documented as of this encounter (statuses as of 03/02/2022) [facility] History of Past illness Narrative* Problem Noted Date Resolved Date Morbid obesity due to excess calories 07/13/2015 03/12/2020 Excessive and frequent menstruation with irregul ar cycle 07/07/2015 07/13/2015 Seizure 06/01/2015 03/12/2020 Overview: Dr. Ordonez Gonorrhjuliano 03/19/2013 03/12/2020 Acute gastritis without mention of hemorrhage 04/11/2018 Other symptoms referable to back 11/27/2006 04/11/2018 Bipolar disorder, unspecified 03/31/2006 ABSCESS ABDOMINAL WALL 05/30/2005 0 documented as of this encounter (statuses as of 06/07/2022) [facility] History of Past illness Narrative* Problem Noted [...] of this encounter (statuses as of 07/01/2022) [facility] History of Past illness Narrative* Problem Noted [...] of this encounter (statuses as of 07/22/2022) [facility] History of Past illness Narrative* Problem Noted [...] of this encounter (statuses as of 09/05/2022) [facility] History of Past illness Narrative* Problem Noted Date Diagnosed Date Resolved Date Morbid obesity due to excess calories 07/13/2015 03/12/2020 Excessive and frequent menst ruation with irregular cycle 07/07/2015 07/13/2015 Seizure 06/01/2015 03/12/2020 Overview: Dr. Ordonez Gonorrhea 03/19/2013 03/12/2020 Acute gastritis without mention of hemorrhage 05/24/1904/11/2018 Other symptoms referable to back 11/27/2006 04/11/2018 Bipolar disorder, unspecified 03/31/2006 03/02/2022 ABSCESS ABDOMINAL WALL 05/30/200504/14 documented as of this encounter (statuses as of 02/14/2023) [facility] History of Past illness Narrative* Problem Noted [...] of this encounter (statuses as of 04/26/2023) [facility] History of Past illness Narrative* Problem Noted Date Diagnosed Date Resolved Date Morbid obesity due to excess calories 07/13/2015 03/12/2020 Excessive and frequent menst ruation with irregular cycle 07/07/2015 07/13/2015 Seizure 06/01/2015 03/12/2020 Overview: Dr. Ordonez Gonorrhjuliano 03/19/2013 03/12/2020 Acute gastritis without mention of hemorrhage 05/24/19 09 04/11/2018 Other symptoms referable to back 11/27/2006 04/11/2018 Bipolar disorder, unspecified 03/31/2006 03/02/2022 ABSCESS ABDOMINAL WALL 05/30/200504/14 documented as of this encounter (statuses as of 05/10/2023) [facility] Diagnosis PCOS (polycystic ovarian syndrome) Polycystic ovaries Acute vaginitis Vaginitis and vulvovaginitis, unspecified Other disorders of pituitary gland (HCC) Other ovarian dysfunction Other ovarian dysfunction documented in this encounter [facility] Work Phone: Evaluation note* Diagnosis Hot flashes Symptomatic menopausal or female climacteric states documented in this encounter [facility] Work Phone: Evaluation note* Diagnosis TMJ pain dysfunction syndrome- Primary Other specified temporomandibular joint disorders documented in this encounter [facility] noteNo assessment information availableWPremier Health [facility] Work Phone: Evaluation note* Diagnosis Contusion of right lower extremity, subsequent encounter- Primary Prepatellar bursitis, right knee documented in this encounter [facility] note* Diagnosis Encounter for medical examination to establish care- Primary Rash of face Rash and other nonspecific skin eruption Moderate episode of recurrent major depressive disorder (HCC) PCOS (polycystic ovarian syndrome) Polycystic ovaries 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 documented in this encounter [facility] note* Diagnosis Rhinosinusitis- Primary Unspecified sinusitis (chronic) documented in this encounter [facility] note* Diagnosis 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, not intractable, without status epilepticus (HCC)- Primary documented in this encounter [facility] note* Diagnosis Right knee pain, unspecified chronicity- Primary documented in this encounter [facility] note* Diagnosis Osteoarthritis of right knee, unspecified osteoarthritis type- Primary documented in this encounter [facility] note* Diagnosis Right knee pain, unspecified chronicity documented in this encounter [facility] note* Diagnosis Primary osteoarthritis of both knees- Primary Primary localized osteoarthrosis, lower leg documented in this encounter [facility] note* Diagnosis Right knee injury, initial encounter documented in this encounter [facility] note* Diagnosis Excessive bleeding in premenopausal period- Primary documented in this encounter [facility] note* Diagnosis Excessive bleeding in premenopausal period- Primary Excessive bleeding in premenopausal period documented in this encounter [facility] note* Diagnosis Excessive bleeding in the premenopausal period Premenopausal menorrhagia documented in this encounter [facility] note* Diagnosis PCOS (polycystic ovarian syndrome)- Primary Polycystic ovaries Endometrial hyperplasia Endometrial hyperplasia, unspecified [facility] PCOS (polycystic ovarian syndrome) Polycystic ovaries Endometrial hyperplasia, unspecified [facility]* Diagnosis PCOS (polycystic ovarian syndrome) Polycystic ovaries Elevated testosterone level in female Endometrial hyperplasia, unspecified [facility] Diagnosis PCOS (polycystic ovarian syndrome) Polycystic ovaries Elevated testosterone level in female Endometrial hyperplasia, unspecified [facility]* Diagnosis 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 [facility] Work Phone: Hospital Discharge instructions* Attachments The following attachments cannot be sent through Care Everywhere. * Dilation and Curettage (D and C) (Turkish) [facility] Diagnostic Procedure Only (Routine) - Pending Review Specialty Diagnoses / Procedures Referred By Robson song Referred To Contact XR IMAGING Diagnoses Right knee pain, unspecified chronicity Procedures XR KNEE GENERAL 4V AP BOTH/PA BOTH/LAT/MERC RIGHT RADIOLOGIC EXAM KNEE COMPLETE 4/MORE VIEWS Anthony Garvin V, DO [address] [place] [address] [place] [id number] Referral ID Status Reason Start Date Expiration Date Visits Requested Visits Authorized [id number] Pending Review Auto-Generat ed Referral 08/15/2023 09/13/2024 1 1 [facility] for referral (narrative)* Diagnostic Procedure Only (Urgent) - Closed Specialty Diagnoses / Procedures Referred By Robson song Referred To Contact XR IMAGING Diagnoses Right knee injury, initial encounter Procedures XR KNEE GENERAL 4V AP BOTH/PA BOTH/LAT/MERC RT KNEE AP-WGT/LAT/MERCHANT Luisa Khoury PA-C [address] [place] [address] [place] [address] Referral ID Status Reason Start Date Expiration Date V isits Requested Visits Authorized [id number] Closed Auto-Generate d Referral 10/20/2020 11/19/2021 1 1 [facility] for visit Narrative* Diagnostic Procedure Only (Routine) - Closed Specialty Diagnoses / Procedures Referred By Robson t Referred To Contact XR IMAGING Diagnoses Right knee pain, unspecified chronicity Procedures XR KNEE GENERAL 4V AP BOTH/PA BOTH/LAT/MERC RIGHT RADIOLOGIC EXAM KNEE COMPLETE 4/MORE VIEWS Anthony Garvin V, DO [address] [place] [address] [place] [address] Referral ID Status Reason Start Date Expiration Date V isits Requested Visits Authorized [id number] Closed Auto-Generate d Referral 08/15/2023 09/13/2024 1 1 [facility] for visit Narrative* Diagnostic Procedure Only (Urgent) - Closed Specialty Diagnoses / Procedures Referred By Robson song Referred To Contact XR IMAGING Diagnoses Right knee injury, initial encounter Procedures XR KNEE GENERAL 4V AP BOTH/PA BOTH/LAT/MERC RT KNEE AP-WGT/LAT/MERCHANT Luisa Khoury PA-C [address] [place] [address] [place] [address] Referral ID Status Reason Start Date Expiration Date V isits Requested Visits Authorized [id number] Closed Auto-Generate d Referral 10/20/2020 11/19/2021 1 1 [facility] for visit Narrative* Auth/Cert (Routine) Specialty Diagnoses / Procedures Referred By Robson song Referred To Contact Diagnoses Excessive bleeding in the premenopausal period Procedures OK HYSTEROSCOPY BX ENDOMETRIUM&/POLYPC W/WO D&C HYSTEROSCOPY DILATION AND CURETTAGE Yessi Munoz MD [address] [place] [address] Phone: tel: fax: Referral ID Status Reason Start Date Expiration Date Visits Re quested Visits Authorized [id number] 02/25/2024 1 1 [facility] Summary Purpose Family History No Family History Records Found Relationship Condition Age at Onset Recorded Date/T dajuan mother Cardiac disease Unknown Advance Directives No Advanced Directives Records FoundDocuments on File Type Date Recorded Patient Head Tennis Professional Expl anation ACP-Advance Directive ACP-Power of Copy Holder Latest Code Status on File Code Status Date Activated Date Inactivated Comments Full Code 11/01/2016 11:14 PM 11/07/2016 10:23 PM Documents on File Type Date Recorded Patient Head Tennis Professional Expl anation Advance Directive(s) 01/11/2018 4:04 PM Advance Directive Response Recorded Date/ Time Advance Directives No September 18 8 10:32am Living Will No August 02, 2021 9 :40pm Power of Copy Holder No August 02, 2021 9:40pm Advance Directive Response Recorded Date/ Time Advance Directives No September 18 8 10:32am Living Will No October 18, 2021 2:58pm Power of Copy Holder No October 18 2:58pm Advance Directive Response Recorded Date/ Time Advance Directives No September 18 10:32am Living Will No November 03 9:52pm Power of Copy Holder No November 03, 022 9:52pm Advance Directive Response Recorded Date/ Time Advance Directives No September 18 8 10:32am Living Will Yes January 09 10:33pm Power of Copy Holder No January 09, 2022 10:33pm Documents on File Type Date Recorded Patient Head Tennis Professional Expl anation Advance Directive(s) 01/11/2018 4:04 PM Advance Directive Response Recorded Date/ Time Advance Directives No December 15, 2022 4:11pm Living Will No February 06, 2 023 10:11pm Power of Copy Holder No February 06, 2023 10:11pm Date Activated Date Inactivated Comments 03/08/2024 12:57 PM 03/08/2024 7:10 PM Date Activated Date Inactivated Comments 03/08/2024 12:57 PM 03/08/2024 7:10 PM Date Activated Date Inactivated Comments 06/13/2024 10:37 PM 06/15/2024 4:38 PM Date Activated Date Inactivated Comments 03/08/2024 12:57 PM 03/08/2024 7:10 PM Chief Complaint and Reason for Visit Chief Complaint anxiety Chief Complaint anxiety SUICIDAL Chief Complaint anxiety SUICIDAL anxiety Chief Complaint SUICIDAL anxiety SEIZURE Chief Complaint RASH ON BACK ANXIETY Reason for Visit Yeast dermatitis Medications Administered Section Inactive Administered Medications - [...] of face Procedures CONSULT TO DERMATOLOGY OFFICE/OUTPATIENT [facility] 60-74 MINUTES Gabe Pierre, BROKER IN CHARGE.EXPERIENCE DESIGN DIRECTOR [address] [place] [address] [employer], [address], [address] [place] [address] Referral ID Status Reason Start Date Expiration Date Visits Requested Visits Authorized [id number] Pending Review PCP Requested Referral 2 03/02/2023 1 1 Additional Source Comments INFORMATION SOURCE (unrecogn ized section and content) DATE CREATED AUTHOR 04/24/2018 [facility] DATE CREATED AUTHOR AUTHOR'S ORGANIZ ATION 09/12/2018 [facility] DATE CREATED AUTHOR AUTHOR'S ORGANIZ ATION 01/01/2021 [facility] DATE CREATED AUTHOR AUTHOR'S ORGANIZ ATION 01/08/2023 [facility] DATE CREATED AUTHOR AUTHOR'S ORGANIZ ATION 05/12/2024 [facility] DATE CREATED AUTHOR AUTHOR'S ORGANIZ ATION 06/19/2024 [facility] DATE CREATED AUTHOR AUTHOR'S ORGANIZ ATION 08/09/2024 [facility] Source Comments (unrecognize d section and content) In the event this informatio n is protected by the Federal Confidentiality of Alcohol and Drug Abuse Patient Records regulations: The Federal rules restrict any use of the information to criminally investigate or prosecute any alcohol or drug abuse patient.[facility] the event this information is protected by the Federal Confidentiality of Alcohol and Drug Abuse Patient Records regulations: The Federal rules restrict any use of the information to criminally investigate or prosecute any alcohol or drug abuse patient.[facility] DaytonIn the event this information is protected by the Federal Confidentiality of Alcohol and Drug Abuse Patient Records regulations: The Federal rules restrict any use of the information to criminally investigate or prosecute any alcohol or drug abuse patient.[facility] DaytonIn the event this information is protected by the Federal Confidentiality of Alcohol and Drug Abuse Patient Records regulations: The Federal rules restrict any use of the information to criminally investigate or prosecute any alcohol or drug abuse patient.[facility] DaytonIn the event this information is protected by the Federal Confidentiality of Alcohol and Drug Abuse Patient Records regulations: The Federal rules restrict any use of the information to criminally investigate or prosecute any alcohol or drug abuse patient.[facility] DaytonIn the event this information is protected by the Federal Confidentiality of Alcohol and Drug Abuse Patient Records regulations: The Federal rules restrict any use of the information to criminally investigate or prosecute any alcohol or drug abuse patient.[facility] DaytonIn the event this information is protected by the Federal Confidentiality of Alcohol and Drug Abuse Patient Records regulations: The Federal rules restrict any use of the information to criminally investigate or prosecute any alcohol or drug abuse patient.[facility] DaytonIn the event this information is protected by the Federal Confidentiality of Alcohol and Drug Abuse Patient Records regulations: The Federal rules restrict any use of the information to criminally investigate or prosecute any alcohol or drug abuse patient.[facility] DaytonIn the event this information is protected by the Federal Confidentiality of Alcohol and Drug Abuse Patient Records regulations: The Federal rules restrict any use of the information to criminally investigate or prosecute any alcohol or drug abuse patient.[facility] DaytonIn the event this information is protected by the Federal Confidentiality of Alcohol and Drug Abuse Patient Records regulations: The Federal rules restrict any use of the information to criminally investigate or prosecute any alcohol or drug abuse patient.[facility] DaytonIn the event this information is protected by the Federal Confidentiality of Alcohol and Drug Abuse Patient Records regulations: The Federal rules restrict any use of the information to criminally investigate or prosecute any alcohol or drug abuse patient.[facility] DaytonIn the event this information is protected by the Federal Confidentiality of Alcohol and Drug Abuse Patient Records regulations: The Federal rules restrict any use of the information to criminally investigate or prosecute any alcohol or drug abuse patient.[facility] DaytonIn the event this information is protected by the Federal Confidentiality of Alcohol and Drug Abuse Patient Records regulations: The Federal rules restrict any use of the information to criminally investigate or prosecute any alcohol or drug abuse patient.[facility] DaytonIn the event this information is protected by the Federal Confidentiality of Alcohol and Drug Abuse Patient Records regulations: The Federal rules restrict any use of the information to criminally investigate or prosecute any alcohol or drug abuse patient.[facility] DaytonIn the event this information is protected by the Federal Confidentiality of Alcohol and Drug Abuse Patient Records regulations: The Federal rules restrict any use of the information to criminally investigate or prosecute any alcohol or drug abuse patient.[facility] DaytonIn the event this information is protected by the Federal Confidentiality of Alcohol and Drug Abuse Patient Records regulations: The Federal rules restrict any use of the information to criminally investigate or prosecute any alcohol or drug abuse patient.[facility] DaytonIn the event this information is protected by the Federal Confidentiality of Alcohol and Drug Abuse Patient Records regulations: The Federal rules restrict any use of the information to criminally investigate or prosecute any alcohol or drug abuse patient.[facility] DaytonIn the event this information is protected by the Federal Confidentiality of Alcohol and Drug Abuse Patient Records regulations: The Federal rules restrict any use of the information to criminally investigate or prosecute any alcohol or drug abuse patient.[facility] DaytonIn the event this information is protected by the Federal Confidentiality of Alcohol and Drug Abuse Patient Records regulations: The Federal rules restrict any use of the information to criminally investigate or prosecute any alcohol or drug abuse patient.[facility] DaytonIn the event this information is protected by the Federal Confidentiality of Alcohol and Drug Abuse Patient Records regulations: The Federal rules restrict any use of the information to criminally investigate or prosecute any alcohol or drug abuse patient.[facility] DaytonIn the event this information is protected by the Federal Confidentiality of Alcohol and Drug Abuse Patient Records regulations: The Federal rules restrict any use of the information to criminally investigate or prosecute any alcohol or drug abuse patient.[facility] DaytonIn the event this information is protected by the Federal Confidentiality of Alcohol and Drug Abuse Patient Records regulations: The Federal rules restrict any use of the information to criminally investigate or prosecute any alcohol or drug abuse patient.[facility] Reason for Visit (unrecogniz ed section and content) Reason Comments Pain Pt reported jaw, (LT ) ear pain rated 8, x2 weeks Reason Onset Date Comments Population Health Navigation Outreach 08/05/2021 [facility] Care Gaps Reason Comments Results Reason Comments [...] Date Comments Population Health Navigation Outreach 02/14/2023 [facility] Attribution Member- Chart review Reason Comments Cough [...] Insurance Authorization Reason Comments Gel One referral Reason Comments Vaginal Bleeding Pt bleeding since Ma rchHeavy bleedingPassing clots with cramping Reason Onset Date Comments Medication Question 01/08/2024 Reason Onset Date Comments Results 01/18/2024 Reason Onset Date Comments Vaginitis/Bacterial Vaginosis 01/24/2024 Reason Onset Date Comments Cancelled Appointment 03/25/2022 03.30.22 / insurance issues Reason Onset Date Comments Other 02/26/2024 Surgery scheduli je[facility] office Reason Comments Post-op Visit 2 week post op hyste roscopy DC on 03/08 Reason Onset Date Comments Other 03/28/2024 Referral Reason Onset Date Comments Other 04/18/2024 Pt calling needs referral sent to [facility] for endocrinology phone number is [phone].Please send referral this is closer to her homePlease advise Reason Onset Date Comments Other 04/18/2024 Pt calling needs referral sent to [facility] for endocrinology phone number is [phone].[facility]/18[facility]24 Patient states s he could not get into [facility] and would like the order sent to Dr. Ziyad Harrell at [facility]. Specialty [phone] Reason Comments Consult PCOS Specialty Diagnoses / Procedures Referred By Robson song Referred To Contact [facility] Diagnoses PCOS (polycystic ovarian syndrome) Elevated testosterone level in female Procedures OFFICE/OUTPATIENT [facility] 60 MINUTES [id number] (SNOMED CT) - AMB REFERRAL TO ENDOCRINOLOGY Yessi Munoz MD [address] [place] [address] Phone: tel: fax: Ziyad Harrell MD [address] [facility] [place] [address] Phone: tel:[phone] fax:[phone] Referral ID Status Reason Start Date Expiration Date V isits Requested Visits Authorized [id number] Pending Review 04/22/2024 04/22/2025 1 1 Reason Onset Date Comments Surgery Scheduling 06/12/2024 Goals (unrecognized section and content) Goals may be documented in a n alternate sectionGoals may be documented in an alternate sectionGoals may be documented in an alternate sectionGoals may be documented in an alternate sectionGoals may be documented in an alternate section Care Teams (unrecognized sec tion and content) Vending Service Technician Relationship Specialty Start Date End Date Gabe Pierre, BROKER IN CHARGE.EXPERIENCE DESIGN DIRECTOR [address], [place] [id number] PCP - General Internal Medicine 03/03/22 Vending Service Technician Relationship Specialty Start Date End Date Gabe Pierre, BROKER IN CHARGE.EXPERIENCE DESIGN DIRECTOR [address] [place] [address] PCP - General Internal Medicine 03/03/22 Vending Service Technician Relationship Specialty Start Date End Date Carol Sharp DO [address] [place] [id number] PCP - General Family Medicine 07/08/22 Vending Service Technician Relationship Specialty Start Date End Date Carol Sharp DO [address] [place] [address] PCP - General Family Medicine 07/08/22 Vending Service Technician Relationship Specialty Start Date End Date Gabe Pierre, BROKER IN CHARGE.EXPERIENCE DESIGN DIRECTOR [address] [place] [address] PCP - General Internal Medicine 03/03/22 Vending Service Technician Relationship Specialty Start Date End Date Carol Sharp DO [address] [place] [address] PCP - General Family Medicine 07/08/22 Team Status: Active Member Role Status Dates Dr. Abdirashid Vazquez , DO Family Provider Active Chantel Kinsey , DO Primary Care Provider Active Team Status: Inactive Member Role Status Dates No Primary Care Physician Primary Care Provider, Refer ring Provider Active Gadiel MUELLER, PA Attending Provider Active Team Status: Inactive Member Role Status Dates Dr. Nita Duffy MD Emergency Provider Active Chantel Kinsey , DO Primary Care Provider Active Vending Service Technician Relationship Specialty Start Date End Date Gabe Pierre, BROKER IN CHARGE.EXPERIENCE DESIGN DIRECTOR [address] [place] [address] PCP - General Internal Medicine 03/03/22 Vending Service Technician Relationship Specialty Start Date End Date Carol Sharp DO [address] [place] [id number] PCP - General Family Medicine 07/08/22 Vending Service Technician Relationship Specialty Start Date End Date Gabe Pierre, BROKER IN CHARGE.EXPERIENCE DESIGN DIRECTOR [address] [facility] [place] [address] PCP - General Internal Medicine 03/03/22 Vending Service Technician Relationship Specialty Start Date End Date Palma Neri (Pss) PCP - General 05/10/23 Vending Service Technician Relationship Specialty Start Date End Date Carol Sharp DO [address] [place] [phone] PCP - General Family Medicine 07/08/22 Vending Service Technician Relationship Specialty Start Date End Date Palma Neri (Pss) PCP - General 05/10/23 Vending Service Technician Relationship Specialty Start Date End Date Palma Neri (Pss) PCP - General 05/10/23 Vending Service Technician Relationship Specialty Start Date End Date Palma Neri (Pss) PCP - General 05/10/23 Vending Service Technician Relationship Specialty Start Date End Date Palma Neri (Pss) PCP - General 05/10/23 Vending Service Technician Relationship Specialty Start Date End Date Wengerd, Palma (Pss) PCP - General 05/10/23 Vending Service Technician Relationship Specialty Start Date End Date Abdirashid Vazquez DO [address] [place] [address] PCP - General Family Medicine 01/02/18 01/02/21 Vending Service Technician Relationship Specialty Start Date End Date Carol Sharp DO [address] [place] [address] PCP - General Family Medicine 07/08/22 Vending Service Technician Relationship Specialty Start Date End Date Carol Sharp DO [address] [place] [address] PCP - General Family Medicine 07/08/22 Vending Service Technician Relationship Specialty Start Date End Date Carol Sharp DO [address] [place] [address] PCP - General Family Medicine 07/08/22 Vending Service Technician Relationship Specialty Start Date End Date Abdirashid Vazquez [address] [place] [address] PCP - General 01/06/21 Vending Service Technician Relationship Specialty Start Date End Date Carol Sharp DO [address] [place] [address] PCP - General Family Medicine 07/08/22 Vending Service Technician Relationship Specialty Start Date End Date Peter Maya MD [address] [place] [address] [address] [place], [place] [address] PCP - General Family Medicine 02/28/24 Vending Service Technician Relationship Specialty Start Date End Date Peter Maya MD [address] [facility] [address] [place] [address] PCP - General Family Medicine 02/28/24 Vending Service Technician Relationship Specialty Start Date End Date Peter Maya MD [address] [facility] [address] [place] [address] PCP - General Family Medicine 02/28/24 Vending Service Technician Relationship Specialty Start Date End Date Peter Maya MD [address] [facility] [address] [place] [address] PCP - General Family Medicine 02/28/24 Vending Service Technician Relationship Specialty Start Date End Date Peter Maya MD [address] [place] [address] [address] [place] [address] PCP - General Family Medicine 02/28/24 Vending Service Technician Relationship Specialty Start Date End Date Peter Maya MD [address] [place] [address] [address] [place] [address] PCP - General Family Medicine 02/28/24 Vending Service Technician Relationship Specialty Start Date End Date Peter Maya MD [address] [place] [address] [address] [place] [address] PCP - General Family Medicine 02/28/24 Vending Service Technician Relationship Specialty Start Date End Date Peter Maya MD [address] [place] [address] [address] [place] [address] PCP - General Family Medicine 02/28/24 Vending Service Technician Relationship Specialty Start Date End Date Peter Maya MD [address] [facility] [address] [place] [address] PCP - General Family Medicine 02/28/24 Vending Service Technician Relationship Specialty Start Date End Date Peter Maya MD [address] [facility] [address] [place] [address] PCP - General Family Medicine 02/28/24 Vending Service Technician Relationship Specialty Start Date End Date Palma Neri PCP - General 05/10/23 [place] [address] [place] [address] [address] [place], [place] [address] Referring Obstetrics 04/23/24 Vending Service Technician Relationship Specialty Start Date End Date Peter Maya MD [address] [facility] [address] [place] [address] PCP - General Family Medicine 02/28/24 Vending Service Technician Relationship Specialty Start Date End Date Peter Maya MD [address] [place] [address] [address] [place], [place] [address] PCP - General Family Medicine 02/28/24 Scheduled Active and Recently Administ ered Medications (unrecognized section and content) Medication Order 03/06/2024 03/07/2024 03/08/2024 acetaminophen (Tylenol) tablet 1,000 mg (COMPLETED) 1,000 mg, Oral, Once, On Mon03/08/24 at 1300, For 1 dose, Preprocedure, Administer 60 minutes prior to surgery. 1400 (Given - Provid er: Arabella Rose RN) famotidine (Pepcid) tablet 20 mg (COMPLETED)(Linked Group 1) 20 mg, Oral, Once, On Mon03/08/24 at 1300, For 1 dose, Preprocedure, IV or Oral 1400 (Given - Provid er: Arabella Rose RN) sodium chloride 0.9% (NS) flush 5-40 mL 5-40 mL, IntraVENous, Every 12 hours, First dose on Mon03/08/24 at 1300, Preprocedure, For Line Patency: Peripheral IV = 5 mL; Midline or Central Line = 10 mL/lumen. If following IV push medication, administer flush at same rate as the IV push. Flush volume is determined by type of infusion therapy being given. For non-viscous solutions use: Peripheral IV = 5 mL Midline or Central Line = 10 mL/lumen For viscous solutions (i.e. blood components, parenteral nutrition, contrast media, or after obtaining blood sample) use: Peripheral IV = 10 mL Midline or Central Line = 20 mL/lumen 1300 (Canceled Entry - Provider: Automatic Discharge Provider - Comment: Automatically canceled at discontinue of medication order) Continuous Medication Order 03/06/2024 03/07/2024 03/08/2024 lactated Ringer's (LR) infusion 50 mL/hr, IntraVENous, Continuous, Starting on Mon03/08/24 at 1300, Preprocedure, Upon admission to sameday - please start iv if patient does not have iv access. Use 500ml NS for patients on dialysis. 1411 (New Bag - Prov ider: Arabella Rose RN)1454 (Continued by Anesthesia - Provider: FRANCO Shrestha CRNA)1514 (Anesthesia Volume Adjustment - Provider: FRANCO Shrestha CRNA) PRN Medication Order 03/06/2024 03/07/2024 03/08/2024 ALPRAZolam (Xanax) disintegrating tablet 0.25 mg 0.25 mg, Oral, Once PRN, anxiety, Starting on Mon03/08/24 at 1257, For 1 dose, Preprocedure, Please do not administer prior to obtaining consent and/or history and physical. Chlorhexidine Gluconate Cloth 2 % cloth Topical, PRN, no prior CHG bath to planned surgical site, Starting on Mon03/08/24 at 1257, For 1 dose, Preprocedure, Chlorhexidine Cloth 2% topically to planned surgical site once PRN for outpatients who did not perform CHG bath/shower as instructed or for ED patients and inpatients diphenhydrAMINE (BENADryl) injection 12.5 mg 12.5 mg, IntraVENous, Once PRN, itching, Starting on Mon03/08/24 at 1513, For 1 dose, Recovery (only) HYDROmorphone (Dilaudid) injection 0.25 mg 0.25 mg, IntraVENous, Every 5 min PRN, moderate pain (4-6), Starting on Mon03/08/24 at 1513, For 4 doses, Recovery (only), For Phase I. If Phase II oral narcotics have been administered in the last 60 minutes, do not administer IV narcotics unless specifically approved by provider. meperidine (Demerol) injection 12.5 mg 12.5 mg, IntraVENous, Every 5 min PRN, shivering, Starting on Mon03/08/24 at 1513, For 2 doses, Recovery (only), May give every 5 minutes to max of 25mg. Notify Anesthesia Provider before administration. ondansetron (Zofran) injection 4 mg 4 mg, IntraVENous, Once PRN, nausea, Starting on Mon03/08/24 at 1513, For 1 dose, Recovery (only), Initial antiemetic therapy. oxyCODONE (Roxicodone) immediate release tablet 5 mg 5 mg, Oral, Every 4 hours PRN, moderate pain (4-6), Starting on Mon03/08/24 at 1513, For 1 dose, Recovery (only), PHASE II sodium chloride 0.9 % bolus 500 mL 500 mL, IntraVENous, at 1,000 mL/hr, Administer over 0.5 Hours, PRN, Anti-nausea, Starting on Mon03/08/24 at 1513, Recovery (only), Indications: Anti-nausea sodium chloride 0.9 % infusion 5-250 mL/hr, IntraVENous, PRN, if patient receiving piggyback infusions and maintenance fluids are not ordered OR KVO fluids to protect IV site / prevent frequent line interruptions / long duration, Starting on Mon03/08/24 at 1257, Preprocedure, For piggyback infusion, administer at same rate as piggyback for a total of 25 mL. Enter 25 mL into dose field and piggyback rate into rate field of order. If piggyback is infusing at a rate less than 100 mL/hr, enter 25 mL into dose field and 100 mL/hr into rate field of order. For KVO fluids, enter rate of 20 mL/hr or less into rate field of order. sodium chloride 0.9% (NS) flush 5-40 mL 5-40 mL, IntraVENous, PRN, line care, After every IV line use, Starting on Mon03/08/24 at 1257, Preprocedure, For Line Patency: Peripheral IV = 5 mL; Midline or Central Line = 10 mL/lumen. If following IV push medication, administer flush at same rate as the IV push. Flush volume is determined by type of infusion therapy being given. For non-viscous solutions use: Peripheral IV = 5 mL Midline or Central Line = 10 mL/lumen For viscous solutions (i.e. blood components, parenteral nutrition, contrast media, or after obtaining blood sample) use: Peripheral IV = 10 mL Midline or Central Line = 20 mL/lumen sterile water irrigation solution (CANCELED) As needed, Starting on Mon03/08/24 at 1500, Intraprocedure 1500 (Given - Provid er: Yessi Munoz MD) Linked Groups Order Group 1: famotidine (Pepcid) tablet 20 mg (COMPLETED)Jump to med 20 mg, Oral, Once, On Mon03/08/24 at 1300, For 1 dose, Preprocedure, IV or Oral Or famotidine (Pepcid) 20 mg in sodium chloride (PF) 0.9 % 10 mL injection (COMPLETED) 20 mg, IntraVENous, Administer over 2 Minutes, Once, On Mon03/08/24 at 1300, For 1 dose, Preprocedure, IV or Oral FOR RECORDS PERTAINING TO PATIENTS WHO ARE [...] BE BASED ON THE PRIMARY CLINICAL RECORDS. [employer] provides no warranty or guarantee of the accuracy or completeness of information in this document.
== END | disposition home or self-care (01) ==
LOC: LAB.FUTURE 08:24
PROVIDERS: PCP Family Medicine; Visit Provider Nurse Practitioner Family
DX: E28.2 Polycystic ovarian syndrome (principal)

== ENCOUNTER → 2024-09-03 | Outpatient (CLI) | payer MEDICARE, MEDICAID, SELFPAY ==
[2024-09-03 16:38] LABS: Hemoglobin A1c 5.6 % (<=5.6)
== END | disposition home or self-care (01) ==
LOC: VSLAB 10:14
PROVIDERS: PCP Nurse Practitioner Family; Visit Provider Nurse Practitioner Family
DX: E28.2 Polycystic ovarian syndrome (principal)
CPT/HCPCS: 36415; 83036

== ENCOUNTER 2024-12-02 19:37 | Emergency (ER) | payer MEDICARE, MEDICAID, SELFPAY ==
[2024-12-02 19:38] VITALS: BP 161/97; PULSE 102; RESP 18; TEMP 36.8; O2SAT 97; BMI 52.7
--- OUTSIDE RECORDS SUMMARY | 2024-12-02 20:28 | XMS RPT_ITS | CCD ---
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 encounter] 04-02-2021 Episodic Residual codes; unclassified (1 source) Flushing; Translations: [Flushing] Episodic Suicide and intentional self-inflicted injury (20 sources) Suicide attempt by inadequate means; Translations: [Intentional self-harm by other specified means, initial encounter] 11-25-2018 Episodic Superficial injury; contusion (1 source) Contusion [...] Problem Classification Problem Date Documented Date Episodic/Chronic Attention-deficit, conduct, and disruptive behavior disorders (8 sources) Aggressive behavior; Translations: [Other symptoms and signs involving appearance and behavior] Onset: 06-13-2024 06-15-2024 Episodic Attention-deficit, conduct, and disruptive behavior disorders (2 sources) Other symptoms and signs involving appearance and behavior; Translations: [Other symptoms and signs involving appearance and behavior] Onset: 06-13-2024 Episodic Epilepsy; convulsions (20 sources) Seizure; Translations: [Unspecified convulsions] Onset: 06-01-2015 Resolved: 03-12-2020 09-14-2017 Episodic Gastritis and duodenitis (14 sources) Acute gastritis; Translations: [Acute gastritis without bleeding] Onset: 05-23-2008 Resolved: 04-11-2018 04-11-2018 Episodic Immunizations and screening for infectious disease (7 sources) Exposure to sexually transmissible disorder; Translations: [Contact with and (suspected) exposure to infections with a predominantly sexual mode of transmission] Onset: 02-06-2017 02-06-2017 Episodic Miscellaneous mental health disorders (16 sources) Suicidal behavior; Translations: [Other symptoms and signs involving emotional state] Onset: 05-05-2016 01-10-2019 Episodic Mood disorders (7 sources) Mood disorders Onset: 06-13-2024 06-13-2024 Other and unspecified benign neoplasm (20 sources) Benign neoplasm of stomach; Translations: [Benign neoplasm of stomach] Onset: 05-23-2008 05-23-2008 Episodic Other injuries and conditions due to external causes (16 sources) Closed injury of head; Translations: [Unspecified injury of head, initial encounter] Onset: 06-15-2024 06-08-2020 Episodic Other nervous system disorders (1 source) Anesthesia of skin; Translations: [Anesthesia of skin] Onset: 03-07-2024 Episodic Other skin disorders (20 sources) Hirsutism; Translations: [Hirsutism] Onset: 10-07-2016 10-07-2016 Episodic Other skin disorders (1 source) Rash and other nonspecific skin eruption; Translations: [Rash of face] Onset: 03-02-2022 Episodic Sexually transmitted infections (not HIV or hepatitis) (14 sources) Gonorrhea; Translations: [Gonococcal infection, unspecified] Onset: 03-19-2013 Resolved: 03-12-2020 03-12-2020 Episodic Skin and subcutaneous tissue infections (20 sources) Cellulitis and abscess of leg, except foot; Translations: [Cellulitis and abscess of trunk] Onset: 05-30-2005 Resolved: 04-14-2009 07-04-2013 Episodic Spondylosis; intervertebral disc disorders; other back problems (20 sources) Low back pain; Translations: [Low back pain] Onset: 11-27-2006 Resolved: 04-11-2018 09-04-2018 Episodic Unclassified (7 sources) partial labotomy 09-30-2021 Results Test Name Value Interpretation Reference Range Facility 36on 11-20-2024 36 Yes, patient needing appointment to discuss, LVM already done Normal [facility] 36 Called and LVM for p t to call office back to get surgery consult appt scheduled with dr munoz. Normal [facility] 36 Pt calling to schedu led surgery and has not heard back and wondering when she can get this scheduled Please advise [facility] CORTISOL, 60 MIN POST COSYNT ROPIN INJECTIONon 11-20-2024 CORTISOL, POST 28.6 ug/dL Normal [facility] Comment on above: Order Comment: Speci men Type: BLOOD SPECIMEN Ordering Facility: [facility] Address: [address] [place] [address] Performed By: #### C ORTPST #### [facility] CLIA [id number] [address] [place] [address] [place] [address] [place] INTERPRETATION (ACTHST) Normal [facility] Comment on above: Order Comment: Speci men Type: BLOOD SPECIMEN Ordering Facility: [facility] Address: [address] [place] [address] Result Comment: Afte r cortrosyn stimulation, a peak cortisol response greater than 12.6 ug/dL may indicate appropriate cortisol secretion. This result should be interpreted within the clinical context and other test results. Martin et al. Clinical Implications for Biochemical Diagnostic Thresholds of Adrenal Sufficiency Using a Highly Specific Cortisol Immunoassay. 2017 Clin. Biochem. 50:475-480. Performed By: #### C ORTPST #### [facility] CLIA [id number] [address] [address] [place] CORTISOL, BASALon 11-20-2024 Cortisol baseline [Mass/Vol] 13.3 ug/dL Normal 4.8-19.5 [facility] Comment on above: Order Comment: Ami sim Type: BLOOD SPECIMEN Ordering Facility: [facility] Address: [address] [place] [address] Result Comment: Prov ided reference range is from 6-10 AM sample collection time. Cortisol Reference Range: 6-10 AM = 4.8-19.5 ug/dL, 4-8 PM = 2.5-11.9 ug/dL Performed By: #### H PROG #### [facility] CLIA [id number] [address] [place] [address] HYDROXYPROGESTERONE-17on 17-HYDROXYPROGESTERONE QUANTITATIVE BY HPLC-MS/MS, SERUM OR PLASMA 118.50 ng/dL Normal <=206.00 [facility] Comment on above: Order Comment: Ami roney Type: BLOOD SPECIMEN Ordering Facility: [facility] Address: [address] [place] [address] Result Comment: INTE RPRETIVE INFORMATION for 17-Hydroxyprogesterone in females: Follicular 15 to 70 ng/dL Luteal 35 to 290 ng/dL REFERENCE INTERVAL: 17-Hydroxyprogesterone Qnt, HPLC-MS/MS Access complete set of age- and/or gender-specific reference intervals for this test in the [facility] Test Directory ([employer]). This test was developed and its performance characteristics determined by [facility]. It has not been cleared or approved by the [place] Food and Drug Administration. This test was performed in a CLIA certified laboratory and is intended for clinical purposes. Performed By: [facility] [address] [place] [id number] Campaign Associate: Gary Reyes MD, PhD CLIA Number: [id number] Performed By: #### H PROG #### [facility] CLIA [id number] [address] [place], [place] [id number] 17-HYDROXYPROGESTERONE QUANTITATIVE BY HPLC-MS/MS, SERUM OR PLASMA 37.10 ng/dL Normal <=206.00 [facility] Comment on above: Order Comment: Speci men Type: BLOOD SPECIMEN Ordering Facility: [facility] Address: [address] [place] [address] Result Comment: INTE RPRETIVE INFORMATION for 17-Hydroxyprogesterone in females: Follicular 15 to 70 ng/dL Luteal 35 to 290 ng/dL REFERENCE INTERVAL: 17-Hydroxyprogesterone Qnt, HPLC-MS/MS Access complete set of age- and/or gender-specific reference intervals for this test in the [facility] Test Directory ([employer] Playbook). This test was developed and its performance characteristics determined by [facility]. It has not been cleared or approved by the US Food and Drug Administration. This test was performed in a CLIA certified laboratory and is intended for clinical purposes. Performed By: [facility] [address] [place], [place] [id number] Campaign Associate: Gary Reyes MD, PhD CLIA Number: [id number] Performed By: #### H PROG #### [facility] CLIA [id number] [address] [place] [address] 11-14-[address] Sanchez want to sidhu ve an appt with her before rescheduling? [facility] 3611-12-2024 36 Name of Caller: Shellie dudley Contact Reason for Appointment: Patient is calling back to reschedule Surgery. Please call her back to discuss. Thank you. Office Name: ObGyn Medication Refills need, if any: No Medication Name: N/A [facility] 11-06-2024 CNPN Telephone (ENWSTR) -- RAMESHMELIJOSSE ([id number]) 1985 F Date Time Provider Department 11/06/24 ZIYAD HARRELL ENWSTR During your visit today, we recorded the following information about you: Roxana Driscoll RN 11/06/2024 9:18 AM Signed Patient calling in asking if she can have her labs drawn while on an antibiotic for an abscess. Patient's next appointment is 11/12/24. Patient is ordered to have Hydroxyprogesterone-17 and ACTH Stimulation labs drawn. Patient also asking if she needs to reschedule her appointment for next week if she is unable to have the labs drawn. Please review and advise. KEIRY Gonzales Danelle, RN 11/06/2024 2:47 PM Signed Patient called in again and asking for a call back with instructions. Patient states she does not like using the internet due to epilepsy and it being addictive. Patient informed that a message has been sent to her MD with her question. KEIRY Gonzales Snigdha Reddy, MD 11/08/2024 11:23 AM Signed She should wait until the antibiotic therapy has been completed and the infection has resolved completely Have her schedule appt after labs are completed please Nita Naik MA 11/08/2024 2:27 PM Signed Phoned patient, left voicemail to return call. Need to relay provider message as below. TRACIE Cole Jennifer, MA 11/12/2024 9:19 AM Signed Patient returned phone call. She is understanding she needs to completed antibiotics prior to lab draw. Patient needs to be scheduled for 2 pt ACTH stim test. A PSR will contact her to schedule this. Patient requires time to schedule rides. Patient to schedule follow up 7-10 days post lab draw. TRACIE ColeGuanacoa 11/12/2024 12:32 PM Signed Lvm for patient to return the call to schedule Belem Wade Mike MosleyMariam 11/12/2024 2:03 PM Signed molly FletcherMonique underwood 11/12/2024 2:57 PM Signed Spoke with patient and scheduled follow up for first available appointment on 01/16/25. Please advise if there is a way to get the patient in sooner. Additionally, patient requests a nurse or MA to be in her appointment as she struggles to understand the provider (patient's words). Please advise. Nita Naik MA 11/13/2024 8:53 AM Signed Spoke with patient on Monday11/08/24. Patient aware provider to be out of office for a prolonged time. Patient needs testing prior and with her transportation and technical issues she will not be able to be seen earlier. TRACIE Cole Snigdha Reddy, MD 11/20/2024 8:19 AM Signed Addended by: ZIYAD HARRELL on: 11/20/2024 08:19 AM Modules accepted: Orders Ziyad Harrell MD 11/20/2024 9:03 AM Signed Addended by: ZIYAD HARRELL on: 11/20/2024 09:03 AM Modules accepted: Orders Allergies As of Date: 11/06/2024 Noted Allergy Reaction ABILIFY (ARIPIPRAZOLE) 09/03/2024 14 - Other: See Comments Comments: seizures ATARAX (HYDROXYZINE) 04/26/2023 1 - Mental Status Change Comments: Causes mental changes PHENOBARBITAL 09/12/2006 2 - Rash PROPRANOLOL 08/20/2022 2 - Rash HYDRALAZINE 10/08/2023 1 - Mental Status Change PROPANEDIOL 07/08/2022 2 - Rash Date Reviewed: 09/12/2024 Reviewed by: Ashlie Shay LPN - Fully Assessed Reason for Visit: Patient Question [7417] Primary Visit Diagnosis: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 [R79.89] Order(s):cosyntropin 0.25 mg injection (CORTROSYN)Disp: Rfl: HYDROXYPROGESTERONE-17 [SQHPROG] Order #: [id number] FUTURE Prescriptions as of 11/20/2024 - spironolactone (ALDACTONE) 50 mg tablet Take 50 mg by mouth once daily. - megestrol (MEGACE) 20 mg tablet 20 mg. - MENEST 0.625 mg tablet Take 0.625 mg by mouth once daily. - dexAMETHasone (DECADRON) 1 mg tablet Take the tablet at 11 pm and go for labs the next morning on fasting at 8 am Patient should start on July 24, 2024. - meloxicam (MOBIC) 15 mg tablet Take [...] mg am 2mg noon 1 mg bedtime Facility-Administered Medications as of 11/20/2024 - (more content not included)... Normal [facility] Urgent Care Visit Reporton 0 11-04-2024 Urgent Care Visit Report [facility] [address], [address] [place], [place] [address] OFFICE VISIT Date of Service: 11/04/24 MR#: [id number] Acct: [id number] Name: SHELLIE WAYNESALisa PENNY Rep #: [id number] 2 : 1985 Provider: ERVIN Harris Age/Sex: 39/F Location: [facility] Status: Signed Intake Vital Signs 10/08/23 14:07 11/04/24 06:57 Height 5 ft 4 in 5 ft 4 in Weight: 300 lb BMI 51.5 BP 134/80 H Blood Pressure Location Lt brachial Position Sitting Pulse 99 Pulse Source Monitor Temp 98.8 F Temp Source Oral Pulse Oximetry (%) 98 Oxygen Delivery Method room air Intake Visit Reasons: COUGH, NAUSEA, HEADACHE, CONGESTION Chief Complaint: Cough, Nausea, Headache, Congestion Accompanied by: Self Allergies phenobarbital Allergy (Verified 11/04/24 06:57) Unknown propranolol Allergy (Verified 11/04/24 06:57) Rash hydralazine Adverse Reaction (Mild, Verified 11/04/24 06:57) confusion Medications ???Medication ???Instructions ???Recorded ???Confirmed ???Type alprazolam 2 mg tablet (Xanax) 2 mg PO BID anxiety 07/28/2011/04 History alprazolam 1 mg tablet (Xanax) 1 mg PO QHS anxiety 10/18/2111/04 History citalopram 20 mg tablet (Celexa) 20 mg PO DAILY depression 10/18/21 11/04/24 History citalopram 10 mg tablet 10 mg PO Q24H DEPRESSION 02/06/23 11/04/24 History levetiracetam 1,000 mg tablet 1,000 mg PO BID SEIZURES 02/06/23 11/04/24 History amoxicillin 875 mg tablet 875 mg PO BID #20 tabs 11/04/24 Rx Nurse's Note: Cough, feels mucus in chest, nausea/vomiting. X 1 week. Taking mucinex over last 4 days. [facility] Medical History Suicide attempt Sinus tachycardia seen on cat hooker Intentional overdose of nonsteroidal anti-inflammatory drug (NSAID) Intentional aspirin overdose Depression with suicidal ideation Personality, multiple Epilepsy PTSD (post-traumatic stress disorder) Anxiety and depression Surgical History H/O dilation and curettage History of hysteroscopy partial labotomy Family History Mother Heart disease Social History Smoking Status: Never smoker alcohol intake: current details: social substance use type: does not use caffeine: Yes what type of physical activity do you participate in: none seatbelt use: always do you feel safe at home: No additional social history: single-unemployed HPI HPI Chief Complaint: Cough, Nausea, Headache, Congestion Details: JOSSE WAYNE, is a 39 F who presents to the office today for [facility] at the [facility] for approximately 1-week history of progressively worsening facial pressure/congestion with purulent postnasal drip/cough causing nausea and emesis of purulent green phlegm over the last several days. No complaints of fever, chills, myalgias, fatigue, runny nose, or diarrhea. No complaints of chest pain/shortness of breath/dyspnea on exertion. No close contacts with similar complaints. Mwwr-ycf-fwamufy Mucinex taken over the last 4 days without assistance. Non-smoker. No other associated symptoms and no other alleviating/aggravating factors. ROS Const Constitutional: No other (as above) Exam Const General: cooperative, healthy appearing and no acute distress Nutritional Appearance: average body habitus Orientation: alert, awake HENCA Head: normal to inspection Ears: hearing grossly normal bilaterally, external ears normal, TM's normal bilaterally and EAC's normal Nose: external nose normal, nares normal, septum normal and no nasal discharge Face and sinus: normal facial exam, sinuses nontender (Though bilateral maxillary fullness to palpation) and face symmetric Mouth: oral mucosae normal, lip normal, tongue normal and oropharynx normal Throat: posterior oropharynx normal, tonsils normal, uvula midline and postnasal drainage (Purulent) Eyes General: appearance normal, both eyes and all related structures Neck Neck: normal visual inspection, full ROM, no meningeal signs, supple and lymphadenopathy (Bilateral anterior cervical lymph node swelling/tender to palpation) Neck mass: No Thyroid: thyroid normal Chest Chest palpation inspection: normal inspection of the chest Resp Effort Inspection: normal respiratory effort and able to speak in complete sentences Auscultation: Bilateral: Clear to Auscultation Cardio Palpation: normal PMI Rate: regular rate Rhythm: regular rhythm Heart Sounds: S1 normal, S2 normal, no gallops, no murmurs and no rubs Pulses: radial pulses present GI Inspection: normal to inspection Skin General: no rashes or lesi (more content not included)... Normal [facility] 09-26-2024 [facility] Telephone (OBGYWM) -- JOSSE WAYNE ([id number]) 1985 F Date Time Provider Department 09/26/24 RICCO GANDHI OBGYWM During your visit today, we recorded the following information about you: Rafia Vargas 09/26/2024 1:36 PM Signed Patient was contacted by women's health to notify the patient that her EMB on 09/27/24 was cancelled due to needing US completed prior. Patient called back very upset that her appointment was moved since she has difficulty finding transportation. Patient yelled and cursed that she was done with the [facility] because her appointments are consisently rescheduled and she no longer wishes to continue with procedures. She then abruptly ended the call. Ricco Gandhi MD 09/26/2024 2:00 PM Signed Noted Ricco Gandhi MD Allergies As of Date: 09/26/2024 Noted Allergy Reaction ABILIFY (ARIPIPRAZOLE) 09/03/2024 14 - Other: See Comments Comments: seizures ATARAX (HYDROXYZINE) 04/26/2023 1 - Mental Status Change Comments: Causes mental changes PHENOBARBITAL 09/12/2006 2 - Rash PROPRANOLOL 08/20/2022 2 - Rash HYDRALAZINE 10/08/2023 1 - Mental Status Change PROPANEDIOL 07/08/2022 2 - Rash Date Reviewed: 09/12/2024 Reviewed by: Ashlie Shay LPN - Fully Assessed Reason for Visit: Appointment [186] Cmt: Disgruntled Patient Prescriptions as of 09/26/2024 - spironolactone (ALDACTONE) 50 mg tablet Take 50 mg by mouth once daily. - megestrol (MEGACE) 20 mg tablet 20 mg. - MENEST 0.625 mg tablet Take 0.625 mg by mouth once daily. - dexAMETHasone (DECADRON) 1 mg tablet Take the tablet at 11 pm and go for labs the next morning on fasting at 8 am Patient should start on July 24, 2024. - meloxicam (MOBIC) 15 mg tablet Take [...] mg am 2mg noon 1 mg bedtime Facility-Administered Medications as of 09/26/2024 - cosyntropin 0.25 mg injection (CORTROSYN) Meds Comments as of 11/27/2012: 11/27/2012: Pt is supposed to be on Metformin and Spironolactone for her PCOS Problem List As Of Date 09/26/2024 Noted Resolved Generalized tonic clonic epilepsy (HCC) [...] examination to establish *03/02/2022 Depression [F32.A] 03/02/2022 Endometrial hyperplasia [N85.00] 09/12/2024 Encounter Status:Closed by AFUA WALKER on 09/26/24 Normal [facility] CBC panel Auto (Bld)on 09-12 Erythrocyte distribution width (RBC) [Ratio] 12 % 11.5 - 15.0 % [facility] Hematocrit (Bld) [Volume fraction] 41.7 % 36.0 - 46.0 % [facility] Hemoglobin (Bld) [Mass/Vol] 14.1 g/dL 11.5 - 15.5 g/dL [facility] Interpretation and review of laboratory results Normal [facility] MCH (RBC) [Entitic mass] 29.1 pg 26.0 - 34.0 pg [facility] MCHC (RBC) [Mass/Vol] 33.8 g/dL 30.5 - 36.0 g/dL [facility] MCV (RBC) [Entitic vol] 86 fL 80.0 - 100.0 fL [facility] Nucleated RBC (Bld) [#/Vol] NINF [facility] Platelet mean volume (Bld) [Entitic vol] 10 fL 9.0 - 12.7 fL [facility] Platelets (Bld) [#/Vol] 311 10*3/uL [facility] RBC (Bld) [#/Vol] 4.85 10*6/uL 3.90 - 5.20 m/uL [facility] WBC (Bld) [#/Vol] 5.44 10*3/uL [facility] Erythrocyte distribution width (RBC) [Ratio] 12.0 % Normal 11.5-15.0 [facility] Comment on above: Order Comment: Speci men Type: BLOOD SPECIMEN Ordering Facility: [facility] Address: [address] [place] [address] Performed By: #### H PROG #### [facility] CLIA [id number] [address] [place] [address] Hematocrit (Bld) [Volume fraction] 41.7 % Normal 36.0-46.0 [facility] Comment on above: Order Comment: Speci men Type: BLOOD SPECIMEN Ordering Facility: [facility] Address: [address] [place] [address] Performed By: #### H PROG #### [id number] [address] [place] [address] Hemoglobin (Bld) [Mass/Vol] 14.1 g/dL Normal 11.5-15.5 [facility] Comment on above: Order Comment: Speci men Type: BLOOD SPECIMEN Ordering Facility: [facility] Address: [address] [place] [address] Performed By: #### H PROG #### [facility] [place] [id number] [address] [place] [address] MCH (RBC) [Entitic mass] 29.1 pg Normal 26.0-34.0 [facility] Comment on above: Order Comment: Speci men Type: BLOOD SPECIMEN Ordering Facility: [facility] Address: [address] [place] [address] Performed By: #### H PROG #### [facility] [place] [id number] [address] [place] [address] MCHC (RBC) [Mass/Vol] 33.8 g/dL Normal 30.5-36.0 [facility] Comment on above: Order Comment: Speci men Type: BLOOD SPECIMEN Ordering Facility: [facility] Address: [address] [place] [address] Performed By: #### H PROG #### [facility] CLIA [id number] [address] [place] [address] MCV (RBC) [Entitic vol] 86.0 fL Normal 80.0-100.0 [facility] Comment on above: Order Comment: Speci men Type: BLOOD SPECIMEN Ordering Facility: [facility] Address: [address] [place] [address] Performed By: #### H PROG #### [facility] CLIA [id number] [address] [place] [address] Nucleated RBC (Bld) [#/Vol] 10*3/uL Normal <0.01 [facility] Comment on above: Order Comment: Speci men Type: BLOOD SPECIMEN Ordering Facility: [facility] Address: [address] [place] [address] Performed By: #### H PROG #### [facility] CLIA [id number] [address] [place] [address] Platelet mean volume (Bld) [Entitic vol] 10.0 fL Normal 9.0-12.7 [facility] Comment on above: Order Comment: Speci men Type: BLOOD SPECIMEN Ordering Facility: [facility] Address: [address] [place] [address] Performed By: #### H PROG #### [facility] CLIA [id number] [address] [place] [address] Platelets (Bld) [#/Vol] 311 10*3/uL Normal 150-400 [facility] Comment on above: Order Comment: Speci men Type: BLOOD SPECIMEN Ordering Facility: [facility] Address: [address] [place] [address] Performed By: #### H PROG #### [facility] CLIA [id number] [address] [place] [address] RBC (Bld) [#/Vol] 4.85 10*6/uL Normal 3.90-5.20 [facility] Comment on above: Order Comment: Speci men Type: BLOOD SPECIMEN Ordering Facility: [facility] Address: [address] [place] [address] Performed By: #### H PROG #### [facility] CLIA [id number] [address] [place] [address] WBC (Bld) [#/Vol] 5.44 10*3/uL Normal 3.70-11.00 [facility] Comment on above: Order Comment: Speci men Type: BLOOD SPECIMEN Ordering Facility: [facility] Address: [address], [place] [id number] Performed By: #### H PROG #### [facility] CLIA [id number] [address] [place] [address] CNOVon 09-12-2024 CNOV Office Visit (OBGYWM ) -- TONEJOSSE D ([id number]) 1985 F Date Time Provider Department 09/12/24 10:00 AM CHARLETTE BRYANT OBGYWM During your visit today, we recorded the following information about you: Blood pressure Weight Height 128/86 139.2 kg 1.626 m Charlette Bryant APRN.CNM 09/12/2024 1:03 PM Signed 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 Josse D Tone is a 39 year old female who presents for problem visit for constant bleeding since 05/2022. She reports daily bleeding and soaking through ultra tampons and pads. She was receiving care in [place] and was supposed to have surgery but had to cancel due to transportation reasons. Pelvic US on 01/2024: Endometrium is thickened, echogenic and uniform measuring 16.23mm. No increased blood flow is noted. Consider endometrial sampling if clinically indicated. * NO PATHOLOGY REPORT TO VIEW Patient had hysteroscopy [facility] on 03/08/24 and was supposed to have a repeat in 06/2024. She did not complete the repeat hysteroscopy. She wants to transfer to this office to have care in [place]. Patient is not currently sexually active. She does not use any hormonal control. Reports her periods have been all over the place her whole life. Patient is a poor historian. Difficult to keep patient focused at times. 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 (Patient not taking: Reported on 09/03/2024) megestrol (MEGACE) 20 mg tablet 20 mg. (Patient not taking: Reported on 09/03/2024) MENEST 0.625 mg tablet Take 0.625 mg by mouth once daily. dexAMETHasone (DECADRON) 1 mg tablet Take the tablet at 11 pm and go for labs the next morning on fasting at 8 am Patient should start on July 24, 2024. (Patient not taking: Reported on 09/03/2024) meloxicam (MOBIC) 15 mg tablet Take 1 tablet by mouth once daily. (Patient not taking: Reported on 06/03/2024) benzonatate (TESSALON PERLES) 100 mg capsule Take 1 capsule by mouth three times a day as needed. (Patient not taking: Reported on 05/10/2023) loratadine (CLARITIN) 10 mg tablet Take 1 tablet by mouth once daily. (Patient not taking: Reported on 04/26/2023) citalopram (CELEXA) 20 mg tablet Take 20 mg by mouth once daily. citalopram hydrobromide (CELEXA) 10 mg tablet Take 10 mg by mouth once daily. metFORMIN (GLUCOPHAGE) 500 mg tablet Take 500 mg by mouth three times daily. (Patient not taking: Reported on 04/26/2023) propranolol (INDERAL) 10 mg tablet Take 1 tablet by mouth once daily. (Patient not taking: Reported on 06/03/2024) BIOTIN ORAL Take by mouth. cholecalciferol (VITAMIN D3) 2,000 unit tablet Take 1 tablet by mouth once daily. ferrous sulfate (IRON ORAL) Take by mouth. levETIRAcetam XR (KEPPRA XR) 500 mg 24 hr tablet Take 500 mg each morning and 1000 mg evening. ALPRAZolam (XANAX) 2 mg tablet Take 2 mg by mouth twice daily. 2 mg am 2mg noon 1 mg bedtime Current Facility-Administered Medications Medication Dose Route Frequency cosyntropin 0.25 mg injection (CORTROSYN) 0.25 mg INTRAVENOUS ONCE (AMB - Up to 30 Days) Allergies As of Date: 09/12/2024 Allergen Noted Reaction ABILIFY [ARIPIPRAZOLE] 09/03/2024 Other: See Comments ATARAX [HYDROXYZINE] 04/26/2023 Mental Status Change PHENOBARBITAL 09/12/2006 Rash PROPRANOLOL 08/20/2022 Rash Fully Assessed 09/03/2024 REVIEW OF SYSTEMS Abdomen: No abdominal pain, nausea, vomiting, diarrhea, or constipation. (more content not included)... Normal [facility] Cancer Ag125 SerPl-aCncon Cancer Ag 125 Qn 8 [arb'U]/mL Normal <39 [facility] Comment on above: Order Comment: Speci men Type: BLOOD SPECIMEN Ordering Facility: [facility] Address: [address] [place] [address] Result Comment: CA 1 25 test methodology used is the Electrochemiluminescence Immunoassay by [facility]. Results obtained with different methods or kits cannot be used interchangeably. The reference interval is based on the 95th percentile of 240 apparently healthy premenopausal and postmenopausal women. At a cutoff value of 65 U/mL, the test sensitivity to distinguish ovarian carcinoma (FIGO stage I to IV) versus benign gynecological disease is 79%, with a specificity of 82%. Reference: Cancer Antigen 125 (CA 125 II) [package insert V 1.0 [employer]]. [facility], [place], [place] (December 2014) Performed By: #### H PROG #### [facility] [employer] [facility] [id number] [address] [place] [address] CNOVon 09-03-2024 CNOV Office Visit (ENWSTR ) -- JOSSE WAYNE ([id number]) 1985 F Date Time Provider Department 09/03/24 11:20 AM ZIYAD HARRELL ENWSTR During your visit today, we recorded the following information about you: Temperature Pulse Respiration Weight 98.8 degrees 91/minute 14/minute 139.2 kg Last Period 06/30/21 Ziyad Harrell MD 09/04/2024 7:07 PM Signed Endocrinology and Metabolism [place] Follow up visit REASON FOR CONSULT: Evaluation of ovarian hyperandrogenism REQUESTING PHYSICIAN: Yessi Munoz MD HPI Josse Araujo Tone is a 38 year old female presenting for follow up evaluation of ovarian hyperandrogenism. Initial visit/last visit 06/03/2024 - Menarche at age 13, with irregular [...] ?her PCP is working on right now Interval history: 09/03/24 Patient did not do labs on two separate days, despite clear instructions and were drawn later than recommended. However she has held menest and finasteride for few weeks before the labs are drawn as recommended She is following up after labs She reports resuming finasteride and menest after the labs were drawn, and is currently on them Of note, finasteride is not on her med list but she confirms this after checking on her phone PAST MEDICAL HISTORY: PAST MEDICAL HISTORY Diagnosis [...] loratadine (CLARITIN) 10 mg tablet Take 1 t (more content not included)... Normal [facility] Hemoglobin A1con 09-03-2024 HbA1c (Bld) [Mass fraction] 5.6 % Normal <=5.6 [facility] Comment on above: Result Comment: Norm al < 5.7 % Prediabetic 5.7 - 6.4 % Diabetic >or= 6.5 % Please note range changes. Performed By: #### L [id number] #### [facility] [address] [place], [address] Hemoglobin A1c percentageOrd ered By: Rafia Bianchi on 09-03-2024 HbA1c (Bld) [Mass fraction] 5.6 % <5.7 [facility] Comment on above: Normal < 5.7 % Predi abetic 5.7 - 6.4 % Diabetic >or= 6.5 % Please note range changes. Cortis p Dex SerPl-mCncon Cortisol post dose dexamethasone [Mass/Vol] 0.8 ug/dL Normal <1.8 [facility] Comment on above: Order Comment: Speci men Type: BLOOD SPECIMEN Ordering Facility: [facility] Address: [address] [place] [address] [place] [address] Result Comment: Afte r overnight 1 mg dexamethasone, an firesetter cortisol of <1.8 ug/dL may indicate an adequate cortisol suppression. This result should be interpreted within the clinical context and other test results. Wilder et al. Evidence for the Low Dose Dexamethasone Suppression Test to Screen for Jagdish's Syndrome - Recommendations for a Protocol for Biochemistry Laboratories. 1996 Rita. Clin. Biochem. 34 [phone]. Performed By: #### H PROG #### [facility] CLIA [id number] [address] [place] [address] DEXAMETHASONEon 08-06-2024 DEXAMETHASONE 410.0 ng/dL Normal [facility] Comment on above: Order Comment: Speci men Type: BLOOD SPECIMEN Ordering Facility: [facility] Address: [address] [place] [address] Result Comment: INTE RPRETIVE INFORMATION: Dexamethasone, Serum [...] developed and its performance characteristics determined by [facility]. It has not been cleared or approved by the US Food and Drug Administration. This test was performed in a CLIA certified laboratory and is intended for clinical purposes. Performed By: [facility] [address] [place] [address] Campaign Associate: Gary Reyes MD, PhD CLIA Number: [id number] Performed By: #### D EXA #### [facility] CLIA [id number] [address] [place] [address] DHEA-S BLDon 08-06-2024 DHEA-S [Mass/Vol] 148.6 ug/dL Normal 60.9-337.0 [facility] Comment on above: Order Comment: Speci men Type: BLOOD SPECIMEN Ordering Facility: [facility] Address: [address] [place] [address] Result Comment: Refe rence ranges are age and gender specific. For additional information, reference range tables can be found in the laboratory test directory. The normal values are based on the following source: Dehydroepiandrosterone sulfate (DHEA S) [package insert V 17.0 [employer]es]. [facility], [place], [place]: October 2012. Performed By: #### H PROG #### [facility] [employer] [place] [id number] [address] [place] [address] Estradiol SerPl-mCncon 08-06 E2 [Mass/Vol] 260 pg/mL Normal [facility] Comment on above: Order Comment: Speci men Type: BLOOD SPECIMEN Ordering Facility: [facility] Address: [address] [place] [address] Result Comment: This test is not suitable [...] 3243 pg/mL Second trimester : 1561 to 14857 pg/mL Third trimester : 8285 to >80726 pg/mL Post-menopausal Estradiol reference range: < 41 pg/mL Reference: 1. Estradiol - E2 (Estradiol III) [package insert V 3.0 [employer]ymraes]. [facility], [place], [place], August 2015. Performed By: #### H PROG #### [facility] [employer] IA [id number] [address] [place] [address] FSH SerPl-aCncon 08-06-2024 Follitropin Qn 2.5 m[IU]/mL Normal See comment [facility] Comment on above: Order Comment: Speci men Type: BLOOD SPECIMEN Ordering Facility: [facility] Address: [address] [place] [address] Result Comment: Refe rence range: Follicular: 3.5-12.5 mIU/mL Ovulation: 4.7-21.5 mIU/mL Luteal: 1.7-7.7 mIU/mL Postmenopausal: 25.8-134.8 mIU/mL Performed By: #### H PROG #### [facility] [employer] IA [id number] [address] [place] [address] HYDROXYPROGESTERONE-17on 17-HYDROXYPROGESTERONE QUANTITATIVE BY HPLC-MS/MS, SERUM OR PLASMA 276.05 ng/dL High <=206.00 [facility] Comment on above: Order Comment: Speci men Type: BLOOD SPECIMEN Ordering Facility: [facility] Address: [address] [place] [address] Result Comment: INTE RPRETIVE INFORMATION for 17-Hydroxyprogesterone in females: Follicular 15 to 70 ng/dL Luteal 35 to 290 ng/dL REFERENCE INTERVAL: 17-Hydroxyprogesterone Qnt, HPLC-MS/MS Access complete set of age- and/or gender-specific reference intervals for this test in the [facility] Test Directory ([employer]book). This test was developed and its performance characteristics determined by [facility]. It has not been cleared or approved by the US Food and Drug Administration. This test was performed in a CLIA certified laboratory and is intended for clinical purposes. Performed By: [facility] [address] [place] [address] Campaign Associate: Gary Reyes MD, PhD CLIA Number: [id number] Performed By: #### H PROG #### [facility] CLIA [id number] [address] [place] [address] LH SerPl-aCncon 08-06-2024 Lutropin Qn 9.4 m[IU]/mL Normal See comment [facility] Comment on above: Order Comment: Speci men Type: BLOOD SPECIMEN Ordering Facility: [facility] Address: [address] [place] [address] Result Comment: Refe rence range: Follicular: 2.4-12.6 mIU/mL Midcycle: 14.0-95.6 mIU/mL Luteal: 1.0-11.4 mIU/mL Post Morelia: 7.7-58.5 mIU/mL Performed By: #### H PROG #### [facility] CLIA [id number] [address] [place] [address] Prolactin SerPl-mCncon 08-06 Prolactin [Mass/Vol] 11.3 ng/mL Normal 4.4-33.8 [facility] Comment on above: Order Comment: Speci men Type: BLOOD SPECIMEN Ordering Facility: [facility] Address: [address] [place] [address] Result Comment: Prol actin test is performed using the [facility] Electrochemiluminescence Immunoassay method. Results obtained with different methods or kits cannot be used interchangeably. Performed By: #### H PROG #### [facility] [employer] IA [id number] [address] [place] [address] T4 Free SerPl-ncon 025 Free T4 [Mass/Vol] 0.7 ng/dL Low 0.9-1.7 [facility] Comment on above: Order Comment: Specdoron sim Type: BLOOD SPECIMEN Ordering Facility: [facility] Address: [address] [place] [address] Performed By: #### H PROG #### [facility] [employer] IA [id number] [address] [place] [address] TSH SerPl-[facility] 08-06-2024 TSH Qn 1.110 m[IU]/L Normal 0.270-4.20 0 [facility] Comment on above: Order Comment: Ami sim Type: BLOOD SPECIMEN Ordering Facility: [facility] Address: [address] [place] [address] Result Comment: If t he patient is [...] Mac, et al. 2017 Guidelines of the [place] Thyroid Association for the Diagnosis and Management of Thyroid Disease during and the . Thyroid, 2017:27:3:315-389. Performed By: #### H PROG #### [facility] [employer] IA [id number] [address] [place] [address] 36on 06-18-2024 36 Called and LVM for p t letting her know her surgery is cancelled for tomorrow 06/19/24 due to not having a PAT. Told pt to call office to get that rescheduled. [facility] 30on 06-15-2024 30 Problem: Potential f or Harm to Self or Others Goal: Participates in unit activities Outcome: Progressing Flowsheets (Taken 06/15/2024 1014) Participates in unit activities: Provide therapeutic environment [...] identification and development of sleep hygiene program [facility] 94on 06-15-2024 94 Department: [facility] ACTIVITIES THERAPY Group Topic: Leisure Skills Group Date: 06/15/2024 Start Time: 1300 End Time: 1330 Facilitators: Reshma Bloom Number of Participants: 5 Group Name: Social Skills Treatment Modality: Leisure Development and Skills Training Purpose: enhance coping skills Summary: To expose patients to healthy leisure outlets. 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 messaged RN assigned to patient to let them know and gave slip to Benjamin Taylor with protective services [facility] Nursing Noteon 06-15-2024 Nursing Note Pt seen [...] concerns. Safety checks maintained per protocol. Normal [facility] Nursing Note Pt refused labs. [facility] Progress Noteon 06-15-2024 Progress Note Patient assigned to this RD. Discharge plan for today noted. Will hold off on full nutrition assessment. [facility] Progress Note Nutrition rescreen completed. Patient assigned a level 1. [facility] 30on 06-14-2024 30 Problem: Potential f or [...] breathing and relaxation group Outcome: Progressing Normal [facility] [id number] 06-14-2024 [id number] Behavioral Health Psycho-Social Assessment (Social Work) Date: 06/14/2024 Patient Name: Josse Wayne : 1985 Identifying Information: Patient is a 38 year old female who presented for aggressive behavior. Presenting Problem: Patient reports she is here because she wants to have a voice and gets agitated when she doesn't. Per ED note: Patient arrives from first floor [facility] practice when she began to yell she [...] sit up in bed to talk with STAFFING ASSOCIATE. Psychiatric History: Patient was admitted in [place] in 2017 and 2018. Substance Abuse/Use: Patient denies substance use. Medical/Self-care Issues: Patient has epilepsy. Legal/Trauma/ History: Patient has disorderly conduct and obstructing official business. Patient reported trauma history. She denied service. Family Constellation/Childhood History: Patient reported that she grew up living with her mom and some of her relatives. She currently resides in [place]. Education/Work: Patient completed high school. She does [...] feelings.) Plan: Patient is not signed in. STAFFING ASSOCIATE will follow patient and work with patient [...] to contact the dictating provider for clarification. [facility] Nursing Noteon 06-14-2024 Nursing Note Pt on unit interacti ng with peers. When approached pt, she did ask if I do not call her by her name. Pt stated It brings up past trauma. Pt blunted, reports feeling better. Pt denies SI/HI and hallucinations. Pt is discharged focused, is concerned being here on her birthday. Emotional support provided. Pt compliant with medications. Patient encourage to notify staff of any mental health concerns, changes in condition or any questions. Normal [facility] Nursing Note Pt is room. Pt refus es medication until she can take her xanax with it. Pt denies SI/hI. Pt denies AH/VH. Safety checks maintained per unit policy. Normal [facility] Nursing Note Verified pt xanax do send[facility] with [facility]. Pt takes 1 mg at bedtime and 2 mg twice a day. [facility] Nursing Note Pt refused labs this AM when Rn approached patient just stated nope, no labs [facility] [id number] 06-13-2024 [id number] Patient arrived to nit extremely agitated , yelling that 'she was not late and the elevator doesn't work and you can't find the stairs. highway patrol officer arrived on unit and patient screaming at officer , yelling that shooting that RN TRAVELING was the right thing to do; officer escorted patient out of unit. Dr. Munoz's office called; spoke with Hallfatou who states patient yells and cusses at them all the time. Belme Bashir director of brand marketing notified. Normal [facility] 30on 06-13-2024 30 Problem: Potential f or [...] and relaxation group Outcome: Not Progressing Normal [facility] CBC WITH AUTO DIFFERENTIALon 06-13-2024 Basophils (Bld) [#/Vol] 0.0 10*3/uL Normal 0.0-0.2 [facility] Comment on above: Performed By: #### L [id number] #### Conveyor Installer: DEEPAK HAGAN ([id number]) [facility] ([facility]) [address] [place] [address] Basophils/100 WBC (Bld) 0.7 % Normal 0.0-2.0 [facility] Comment on above: Performed By: #### L [id number] #### Conveyor Installer: DEEPAK HAGAN ([id number]) [facility] ([facility]) [address] [place] [address] Eosinophils (Bld) [#/Vol] 0.0 10*3/uL Normal 0.0-0.5 [facility] Comment on above: Performed By: #### L [id number] #### Conveyor Installer: DEEPAK HAGAN ([id number]) [facility] ([facility]) [address] Eosinophils/100 WBC (Bld) 1.0 % Normal 0.0-6.0 [facility] Comment on above: Performed By: #### L [id number] #### Conveyor Installer: DEEPAK HAGAN ([id number]) [facility] [address] Erythrocyte distribution width (RBC) [Ratio] 14.2 % Normal 11.5-15.0 [facility] Comment on above: Performed By: #### L [id number] #### Conveyor Installer: DEEPAK HAGAN ([id number]) [facility] ([facility]) [address] Hematocrit (Bld) [Volume fraction] 40.9 % Normal 35.0-47.0 [facility] Comment on above: Performed By: #### L [id number] #### Conveyor Installer: DEEPAK HAGAN ([id number]) [facility] ([facility]) [address] Hemoglobin (Bld) [Mass/Vol] 13.9 g/dL Normal 11.7-16.0 [facility] Comment on above: Performed By: #### L [id number] #### Conveyor Installer: DEEPAK HAGAN ([id number]) [facility] [address] IMMATURE GRANS % 0.2 % Normal 0.0-2.0 [facility] Comment on above: Performed By: #### L [id number] #### Conveyor Installer: DEEPAK HAGAN ([id number]) [facility] ([facility]) [address] IMMATURE GRANS ABSOLUTE 0.0 10*3/uL Normal <0.1 [facility] Comment on above: Performed By: #### L [id number] #### Conveyor Installer: DEEPAK HAGAN ([id number]) [facility] [address] Lymphocytes (Bld) [#/Vol] 1.5 10*3/uL Normal 1.0-4.3 [facility] Comment on above: Performed By: #### L [id number] #### Conveyor Installer: DEEPAK HAGAN ([id number]) [facility] ([facility] [address] Lymphocytes/100 WBC (Bld) 35.9 % Normal 15.0-45.0 [facility] Comment on above: Performed By: #### L [id number] #### Conveyor Installer: DEEPAK HAGAN ([id number]) [facility] ([facility]) [address] MCH (RBC) [Entitic mass] 27.9 pg Normal 26.0-34.0 [facility] Comment on above: Performed By: #### L [id number] #### Conveyor Installer: DEEPAK HAGAN ([id number]) [facility] ([facility]) [address] MCHC 34.0 % Normal 30.5-36.0 [facility] Comment on above: Performed By: #### L [id number] #### Conveyor Installer: DEEPAK HAGAN ([id number]) [facility] ([facility]) [address] MCV (RBC) [Entitic vol] 82.1 fL Normal 77.0-99.0 [facility] Comment on above: Performed By: #### L [id number] #### Conveyor Installer: DEEPAK HAGAN ([id number]) [facility] ([facility]) [address] [place] [address] [place] Monocytes (Bld) [#/Vol] 0.4 10*3/uL Normal 0.0-0.9 [facility] Comment on above: Performed By: #### L [id number] #### Conveyor Installer: DEEPAK HAGAN ([id number]) [facility] ([facility]) [address] Monocytes/100 WBC (Bld) 8.7 % Normal 5.0-13.0 [facility] Comment on above: Performed By: #### L [id number] #### Conveyor Installer: DEEPAK HAGAN ([id number]) [facility] ([facility]) [address] NEUTROPHILS ABSOLUTE 2.2 10*3/uL Normal 1.8-7.5 [facility] Comment on above: Performed By: #### L [id number] #### Conveyor Installer: DEEPAK HAGAN ([id number]) [facility] ([facility]) [address] Neutrophils/100 WBC (Bld) 53.5 % Normal 38.0-82.0 [facility] Comment on above: Performed By: #### L [id number] #### Conveyor Installer: DEEPAK HAGAN ([id number]) [facility] ([facility]) [address] NRBC 0.0 /100 WBCs Normal 0.0-2.0 [facility] Comment on above: Performed By: #### L [id number] #### Conveyor Installer: DEEPAK HAGAN ([id number]) [facility] ([facility]) [address] Platelet mean volume (Bld) [Entitic vol] 9.7 fL Normal 9.0-12.7 [facility] Comment on above: Performed By: #### L [id number] #### Conveyor Installer: DEEPAK HAGAN ([id number]) [facility] ([facility]) [address] [place] [address] [place] Platelets (Bld) [#/Vol] 291 10*3/uL Normal 140-440 [facility] Comment on above: Performed By: #### L [id number] #### Conveyor Installer: DEEPAK HAGAN ([id number]) [facility] ([facility]) [address] [address] RBC (Bld) [#/Vol] 4.98 10*6/uL Normal 3.80-5.20 [facility] Comment on above: Performed By: #### L [id number] #### Conveyor Installer: DEEPAK HAGAN ([id number]) [facility] ([facility]) [address] WBC (Bld) [#/Vol] 4.0 10*3/uL Normal 3.6-10.7 [facility] Comment on above: Performed By: #### L [id number] #### Conveyor Installer: DEEPAK HAGAN ([id number]) [facility] (HLAB) [address] COMPREHENSIVE METABOLIC PANE Gonzalez 06-13-2024 Albumin [Mass/Vol] 3.7 g/dL Normal 3.5-5.0 [facility] Comment on above: Performed By: #### L AB46, LAB17 #### Conveyor Installer: DEEPAK HAGAN ([id number]) [facility] ([facility]) [address] ALP [Catalytic activity/Vol] 61 U/L Normal 40-150 [facility] Comment on above: Performed By: #### L AB46, LAB17 #### Conveyor Installer: DEEPAK HAGAN ([id number]) [facility] ([facility]) [address] ALT [Catalytic activity/Vol] 60 U/L High <30 [facility] Comment on above: Performed By: #### L AB46, LAB17 #### Conveyor Installer: DEEPAK HAGAN ([id number]) [facility] ([facility]) [address] Anion gap [Moles/Vol] 12 mmol/L Normal 3-13 [facility] Comment on above: Performed By: #### L AB46, LAB17 #### Conveyor Installer: DEEPAK HAGAN ([id number]) [facility] ([facility] [address] [place] [address] [place] AST [Catalytic activity/Vol] 57 U/L High <34 [facility] Comment on above: Performed By: #### L AB46, LAB17 #### Conveyor Installer: DEEPAK HAGAN ([id number]) [facility] ([facility]) [address] Bilirubin [Mass/Vol] 0.7 mg/dL Normal <1.2 [facility] Comment on above: Performed By: #### L AB46, LAB17 #### Conveyor Installer: DEEPAK HAGAN ([id number]) [facility] [address] Calcium [Mass/Vol] 9.1 mg/dL Normal 8.4-10.2 [facility] Comment on above: Performed By: #### L AB46, LAB17 #### Conveyor Installer: DEEPAK HAGAN ([id number]) [facility] ([facility]) [address] [place] [address] [place] Chloride [Moles/Vol] 110 mmol/L High 98-107 [facility] Comment on above: Performed By: #### L AB46, LAB17 #### Conveyor Installer: DEEPAK HAGAN ([id number]) [facility] ([facility] [address] [place] [address] [place] CO2 [Moles/Vol] 18 mmol/L Low 22-29 [facility] Comment on above: Performed By: #### L AB46, LAB17 #### Conveyor Installer: DEEPAK HAGAN ([id number]) [facility] ([facility] [address] [place] [address] [place] Creatinine [Mass/Vol] 0.84 mg/dL Normal 0.57-1.11 [facility] Comment on above: Performed By: #### L AB46, LAB17 #### Conveyor Installer: DEEPAK HAGAN ([id number]) [facility] ([facility] [address] GLOMERULAR FILTRATION RATE ML/MIN/1.73 SQ M.PREDICTED >90.0 Normal >60.0 [facility] Comment on above: Result Comment: Calc ulation based on the Chronic Kidney Disease Epidemiology Collaboration (CKD-EPI) equation refit without adjustment for race Performed By: #### L AB46, LAB17 #### Conveyor Installer: DEEPAK HAGAN ([id number]) [facility] ([facility]) [address] Glucose [Mass/Vol] 138 mg/dL High 74-100 [facility] Comment on above: Performed By: #### L AB46, LAB17 #### Conveyor Installer: DEEPAK HAGAN ([id number]) [facility] ([facility]) [address] Potassium [Moles/Vol] 3.6 mmol/L Normal 3.5-5.1 [facility] Comment on above: Result Comment: [facility] potassium values may be up to 0.5 mmol/L lower than serum values. Performed By: #### L AB46, LAB17 #### Conveyor Installer: DEEPAK HAGAN ([id number]) [facility] ([facility]) [address] Protein [Mass/Vol] 7.1 g/dL Normal 6.4-8.3 [facility] Comment on above: Performed By: #### L AB46, LAB17 #### Conveyor Installer: DEEPAK HAGAN ([id number]) [facility] ([facility]) [address] [place] [address] [place] Sodium [Moles/Vol] 140 mmol/L Normal 136-145 [facility] Comment on above: Performed By: #### L AB46, LAB17 #### Conveyor Installer: DEEPAK HAGAN ([id number]) [facility] ([facility]) [address] [place] [address] [place] Urea nitrogen [Mass/Vol] 8 mg/dL Normal 8-21 [facility] Comment on above: Performed By: #### L AB46, LAB17 #### Conveyor Installer: DEEPAKLISA HAGAN ([id number]) [facility] ([facility]) [address] DRUGS OF ABUSEon 06-13-2024 AMPHETAMINE SCREEN Negative Normal [facility] Comment on above: Performed By: #### L [id number] #### Conveyor Installer: DEEPAK DANYA ([id number]) [facility] ([facility]) [address] BARBITURATES SCREEN Negative Normal [facility] Comment on above: Performed By: #### L [id number] #### Conveyor Installer: DEEPAK DANYA ([id number]) [facility] ([facility]) [address] BENZODIAZEPINE SCREEN Positive Normal [facility] Comment on above: Performed By: #### L [id number] #### Conveyor Installer: DEEPAK DANYA ([id number]) [facility] ([facility]) [address] COCAINE METAB. SCREEN Negative Normal [facility] Comment on above: Performed By: #### L [id number] #### Conveyor Installer: DEEPAKLISA HAGAN ([id number]) [facility] ([facility]) [address] FENTANYL SCREEN, UR QUAL Negative Normal [facility] Comment on above: Result Comment: BON Wilson COMMENTS: The expected value for all of [...] under separate order. Performed By: #### L [id number] #### Conveyor Installer: DEEPAK HAGAN ([id number]) [facility] ([facility]) [address] METHADONE SCREEN Negative Normal [facility] Comment on above: Performed By: #### L [id number] #### Conveyor Installer: DEEPAK HAGAN ([id number]) [facility] ([facility]) [address] OPIATES SCREEN Negative Normal [facility] Comment on above: Performed By: #### L [id number] #### Conveyor Installer: DEEPAK HAGAN ([id number]) [facility] ([facility]) [address] OXYCODONE SCREEN Negative Normal [facility] Comment on above: Performed By: #### L [id number] #### Conveyor Installer: DEEPAK HAGAN ([id number]) [facility] ([facility]) [address] PHENCYCLIDINE SCREEN Negative Normal [facility] Comment on above: Performed By: #### L [id number] #### Conveyor Installer: DEEPAK HAGAN ([id number]) [facility] ([facility]) [address] ECG 12-LEADon 06-13-2024 ECG 12-LEAD IMPRESSION: Sinus tachycardia No significant change from previous ekg Electronically Signed On 06-13-2024 20:23:19 EDT by Michelle Murray [facility] ED Nursing Noteon 06-13-2024 ED Nursing Note Report given to RICCI 5 RN [facility] ED Nursing Note Protective services called to bedside as she became upset with staff thinking they were laugher at her she started yelling and striking her head into the wall. [facility] ED Nursing Note Patient arrives from first floor family practice when she began to yell she was being held hostage and started to hit self in the face and bang her head into the wall. She also threatened harm to everyone around her. Patient has a past history of mental health issues and has been non-complaint with her medication. [facility] ED Provider Noteon ED Provider Note EMERGENCY [...] of psychiatric evaluation. Patient was at the [facility] for plans of a [...] Yes Comment: occ Drug use: Never SCREENINGS [place] Coma Scale Best Eye Response: Spontaneous Best Verbal Response: Oriented Best Motor Response: Follows commands [place] Coma Scale Score: 15 PHYSICAL EXAM ED [...] Affect is (more content not included)... 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 NOTE: This result is for medical treatment only. Analysis performed using non-forensic procedures. Performed By: #### L AB46, LAB17 #### Conveyor Installer: DEEPAK HAGAN ([id number]) [facility] ([facility]) [address] [place] [address] Nursing Noteon 06-13-2024 Nursing Note Pt arrived to unit 2 220 via wheelchair with lace tearing supervisor and brave officers. Pt came from [facility]. Pt was calm upon arrival but during intake she was being racially inappropriate with staff. Pt wears glasses, states she needs bigger sizes of clothes, lace tearing supervisor was notified and bigger outfit given, [...] safety checks. [facility] was closed when RN attempted to verify the xanax dosage and prescription. Will attempt in am, pharmacy opens at 8am [facility] SARS-COV-2 ANTIGENon 025 SARS-COV-2 ANTIGEN SARS-COV-2 ANTIGEN - BINAX Reference Negative Negative A negative result does not rule out the possibility of SARS-CoV-2 infection. NAAT-based methods should be considered for symptomatic patients presenting greater than seven days after onset of symptoms. Method: Lateral flow immunoassay. Fact sheets for healthcare providers and patients can be found at the following sites: https://www.[employer].gov/media/ 173586/download https://www.[employer].gov/media/ 706497/download [facility] Comment on above: Performed By: #### L [id number] #### Conveyor Installer: DEEPAK HAGAN ([id number]) [facility] ([facility]) [address] [place] [address] 36on 06-12-2024 36 Pt called back demond aguilar to keep the surgery and states she will have a ride for her PAT appt. Surgery is now staying. [facility] 36 Called pt in regards to her [...] surgery that is scheduled on 06/19/24 with All. [facility] CNOVon 06-03-2024 CNOV Office Visit (ENWSTR ) -- JOSSE WAYNE ([id number]) 1985 F Date Time Provider Department 06/03/24 1:00 PM ZIYAD HARRELL During your visit today, we recorded the following information about you: Pulse Respiration Blood pressure Weight 100/minute 16/minute 136/86 142.6 kg Ziyad Harrell MD 06/03/2024 6:32 PM [facility] Endocrinology and Metabolism [place] Initial Clinic Visit Note REASON FOR CONSULT: Evaluation of ovarian hyperandrogenism REQUESTING PHYSICIAN: Yessi Munoz MD [address] [facility] [address] My final recommendations will be communicated back [...] not t (more content not included)... Normal [facility] 37on 05-07-2024 37 Continue Keppra 1000 mg twic daily Follow up in 1 year or sooner if needed Normal [facility] Office Visiton 05-07-2024 Follow-up visit [id number] Yamilka Wayne 1985 F Date Provider Department Center 05/07/2024 [id number]-DSTDUQJEZDEMETRIUS ROBERTSON [facility] [place] None Family History Problem Relation Age of Onset Heart attack Maternal Grandfather Family Status - Relation Status Age at Maternal Grandfather Father Alive Mother Notes: cardiac arrest Level of Service:45315 DC OFFICE/OUTPATIENT ESTABLISHED LOW MDM 20 MIN Reason for Visit and Comments: Follow-up [550153] Seizures [97] Normal [facility] Progress Noteon 05-07-2024 Progress Note Visit type: [...] 10/28/2020 VITAMIN B12: No results found for: [id number] No results found for: PHENYTOIN, PHENOBARB, VALPROATE, CBMZ No components found for: TOPIRA @R (more content not included)... Normal [facility] CBC W/Diff, Automatedon 02-1 Absolute Lymph 2.03 X10 3/uL Normal 0.83-4.51 [facility] Comment on above: Performed By: #### L 100.0100 #### [facility] Laboratory [address] [place], [address] Absolute Neut 3.4 X10 3/uL Normal 2.0-7.7 [facility] Comment on above: Performed By: #### L 100.0100 #### [facility] [address] [place], [address] Basophils/100 WBC (Bld) 0.7 % Normal 0-1 [facility] Comment on above: Performed By: #### L 100.0100 #### [facility] [address] [place], [address] Eosinophils/100 WBC (Bld) 0.5 % Normal 0-5 [facility] Comment on above: Performed By: #### L 100.0100 #### [facility] [address] [place], [address] Erythrocyte distribution width (RBC) [Ratio] 12.9 % Normal 11.6-14.6 [facility] Comment on above: Performed By: #### L 100.0100 #### [facility] [address] [place], [address] Hematocrit (Bld) [Volume fraction] 42.1 % Normal 37-47 [facility] Comment on above: Performed By: #### L 100.0100 #### [facility] [address] [place], [address] Hemoglobin (Bld) [Mass/Vol] 13.7 g/dL Normal 12.0-15.0 [facility] Comment on above: Performed By: #### L 100.0100 #### [facility] [address] [place], [address] IG% 0.500 Normal 0.0-0.9 [facility] Comment on above: Result Comment: IG% - Immature Granulocytes (promyelocytes, myelocytes and metamyelocytes) > 1% indicates that a LEFT SHIFT is Present. Performed By: #### L 100.0100 #### [facility] [address] [place], [address] Lymphocytes/100 WBC (Bld) 33.9 % Normal 19-41 [facility] Comment on above: Performed By: #### L 100.0100 #### [facility] [address] [place], [address] MCH (RBC) [Entitic mass] 27.2 pg Normal 27.0-32.0 [facility] Comment on above: Performed By: #### L 100.0100 #### [facility] [address] [place], [address] MCHC (RBC) [Mass/Vol] 32.5 g/dL Normal 32-36 [facility] Comment on above: Performed By: #### L 100.0100 #### [facility] [address] [place], [address] MCV (RBC) [Entitic vol] 83.7 fL Normal 81-99 [facility] Comment on above: Performed By: #### L 100.0100 #### [facility] [address] [place], [address] Monocytes/100 WBC (Bld) 7.4 % Normal 0-10 [facility] Comment on above: Performed By: #### L 100.0100 #### [facility] [address] [place], [address] Neutrophils/100 WBC (Bld) 57.0 % Normal 47-70 [facility] Comment on above: Performed By: #### L 100.0100 #### [facility] [address] [place], [address] Nucleated RBC (Bld) [#/Vol] 0 10*3/uL Normal 0-5 [facility] Comment on above: Performed By: #### L 100.0100 #### [facility] [address] [place], [address] Platelet mean volume (Bld) [Entitic vol] 10.7 fL Normal 6.2-12.0 [facility] Comment on above: Performed By: #### L 100.0100 #### [facility] [address] [place], [address] Platelets (Bld) [#/Vol] 290 10*3/uL Normal 150-450 [facility] Comment on above: Performed By: #### L 100.0100 #### [facility] [address] [place], [address] RBC (Bld) [#/Vol] 5.03 10*6/uL Normal 4.2-5.4 [facility] Comment on above: Performed By: #### L 100.0100 #### [facility] [address] [place], [address] RDW SD 39.0 fl Normal 35.1-43.9 [facility] Comment on above: Performed By: #### L 100.0100 #### [facility] [address] [place], [address] WBC (Bld) [#/Vol] 6.0 10*3/uL Normal 4.4-11.0 [facility] Comment on above: Performed By: #### L 100.0100 #### [facility] [address] [place], [address] 3604-23-2024 36 Noted [facility] 04-22-2024 29 Addended by: ANGELLA ONEILL on: 04/22/2024 04:14 PM Modules accepted: Orders Normal [facility] 3604-22-2024 [address] Munoz [facility] 36 Patient states she c diptild not get into [place] and would like the order sent to Dr. Ziyad Harrell at [facility] [address] Specialty [phone] [facility] 36on 04-19-2024 [address] Munoz [facility] Office Visiton 03-25-2024 Follow-up visit [id number] Yamilka Wayne Steward 1985 F Date Provider Department Center 03/25/2024 [id number]-BQECUYLVALYESSI SHABAZZG JAKE OB [facility] OB Offi Family History Problem Relation Age of Onset Heart attack Maternal Grandfather Family Status - Relation Status Age at Maternal Grandfather Father Alive Mother Notes: cardiac arrest Level of Service:05523 DC OFFICE/OUTPATIENT ESTABLISHED MOD MDM 30 MIN Reason for Visit and Comments: Post-op Visit [559] - 2 week post op hysteroscopy DC on 03/08 [facility] Progress Noteon 03-25-2024 Progress Note Chief Complaint [...] visit: PCOS (polycystic ovarian syndrome) (Primary) - [facility] End[facility]inology; Future Endometrial hyperplasia Other orders - megestrol (Megace) 20 MG tablet; Take 1 tablet (20 mg total) by mouth 2 times daily. Megace Follow up 3 months repeat D&C Follow up in about 3 months (around 06/23/2024). [facility] 29on 03-14-2024 29 Addended by: DARRELL STERN on: 03/14/2024 09:49 AM Modules accepted: Orders [facility] 36on 03-14-2024 36 Spoke with pt. She i s good on refills now. Follow up scheduled for 05/07/24 [facility] 36 Message released to patient as written. Patient's further questions if applicable: Please send to: [facility] - [place], [place] [address] [facility] [address] [facility] [address] Were all questions from office addressed or relayed to the patient from encounter: Yes [facility] 36 Lm for patient to hi ll the office back, please relay providers message. [facility] 36 I got a refill reque for her Ottoppra but it is asking to send to [facility] Can you find out where she wants refill sent to? [facility] Nursing Noteon 03-08-2024 Nursing Note [facility] yelling because staff were taking too long with attempting to arrange transportation for discharge. Patient abruptly left PACU into corridor on second floor followed by Protective Services. [facility] Nursing Note Patient was given a copy of her homegoing instructions and proceeded to tear the packet up. [facility] Nursing Note [facility] partially closed. Dressing self. When explaining to patient she can not not walk to [facility] to find a ride home to [place]. Patient began yelling and screaming that she was leaving and she didn't care what anyone said. Patient became more enraged with yelling and screaming. Raya Atwood called. [facility] services immediately arrived to the PACU and continued to attempt to deescalate the situation. It was explained to patient that we cannot allow her to walk a couple of blocks to [facility] and await a ride. Nursing Tobacco Prizer notified and on site in PACU. [facility] Nursing Note Patient does not wan t to medicated at this time [facility] Nursing Note Patient states pain has gone to a 3. Much less discomfort and cramping. [facility] Nursing Note Both Dr. Munoz and Dr. Prater aware that pt came by [employer] today and states very tearfully that she has no one to pick her up. Pt notified of risks and still wishes to proceed. Normal [facility] Nursing Note Patient educated on importance of coughing/ deep breathing after surgery to reduce risk of pneumonia. Patient educated on importance of early mobility to reduce the risk of blood clots. Falls prevention information reviewed with patient. Post-operative pain control and ways to prevent constipation discussed with patient. [facility] Op Noteon 03-08-2024 Op Note Preop diagnosis: [...] to the recovery room in stable condition. [facility] [id number] 03-04-2024 [id number] Medication List Accurate as of March 04, [...] your scheduled surgery time. Please bring your [facility] Surgical folder and medication list with you day of surgery. We encourage you to write down any questions you may have for the surgeon, anesthesiologist, or other members of the surgical team and bring it with you the day of surgery. Please bring photo ID and insurance information.[facility]: Arrive at the main entrance (not the ER entrance). Automobile Mechanic Apprentice parking is available for a fee. All patients must stop at the registration department (which is the first department past the [employer] shop) North elevators are near the registration department Take elevator to 2nd floor - surgical waiting lobby to the left Proceed through door to the Same Day Surgery desk [facility] 36on 02-26-2024 36 PAT: by phone 2023 at 9 am SX: 03.08.2024 at 3 pm arrival at 1 pm Post op 03.25.2024 at 1:45 pm Instructions given. [facility] Cerv Spine 4 or 5 Viewson Cerv Spine 4 or 5 Views [facility] Imaging Services [address] [place] [address] [id number] Cerv Spine 4 or 5 Views MR#: [id number] Acct: [id number] Name: JOSSE WAYNE Rep #: [id number] : 1985 F 38 From: Jean-Claude Gandara MD PCP: Dr. Peter Maya MD Status: REG CL Study: Cerv Spine 4 or 5 Views Date of Exam: 02/06/24 Exam# [id number] Ordering Dr: Peter Maya MD [id number] EXAM: XR CERVICAL SPINE, 4 OR 5 [...] EST , CC: Dr. Peter Maya MD Automation Analyst: Signed [facility] 36on 02-05-[address] Sanchez called and rev iewed US results. Dr. Sanchez wanting to do a hysteroscopy and D&C. I called patient same day on 02/04 for consent forms. Pt declines coming to office to sign forms. Pt refuses to sign up for [employer], she states that she doesn't have internet. I asked data warehouse manager what other options we can do. Shobha says that we can mail her surgery consent forms and she can either mail them back or bring them day of surgery. I then called and LVM for patient to update her. Surgery consent forms are mailed out. [facility] [facility] [address] Dr. Sanchez called patient to review [facility] Progress Noteon 02-05-2024 Progress Note Discussed this. Stil l bleeding. Megace and D&C. [facility] 36on 01-30-2024 36 Name of caller: Shellie Wayne Contact phone number: [phone] Relationship to Patient: patient Provider: Dr Munoz Practice: [facility] Chief Complaint/Reason for Call: See Triage 01.25.24. Pt is demanding a call from the [facility] as to why she was lied to [...] business hours to return their call: Yes [facility] 36on 01-25-2024 36 Called and LVM to sidhu ve pt schedule an appointment to review results, review bloodwork, and discuss concerns for yeast infection. Pt needs an appointment to review further workup [facility] 36 Called and spoke w/ pt. She [...] results because that is all she wants. [facility] 36on 01-24-2024 36 S: Patient spoke to [...] or caller hangs up) Protocols used: Difficult Ugma-BYIXP-YC [facility] US PELVIS TRANSVAGINALon US PELVIS TRANSVAGINAL --------- Gynecological Report (Signed Final 01/23/2024 01:01 pm) PATIENT INFO: ID #: [id number] : [birth year] (38 yrs)(F) Name: JOSSE PENNY Visit Date: 01/23/2024 11:19 am DEEDS PERFORMED BY: Attending: Eboni Moise MD Performed By: Bel Lemos RDMS Referred By: YESSI MUNOZ Location: [facility] Marie Visit Type: [facility] SERVICE(S) PROVIDED: Mud Car Worker Transvaginal [id number] INDICATIONS: Excessive bleeding in the premenopausal N92.4 period Unsure on LMP, Bleeding since May 2023 TV OUTSIDE PRODUCTION INSPECTOR ultrasound TECHNIQUE/SCAN QUALITY: Technique: Transvaginal Approach Scan [...] 02/14/2024. *Ultrasound cannot detect all pelvic or OUTSIDE PRODUCTION INSPECTOR abnormalities and normal findings cannot guarantee the absence of a problem.* Normal [facility] US Pelvis transvaginalon The right ovary [...] 02/14/2024. *Ultrasound cannot detect all pelvic or OUTSIDE PRODUCTION INSPECTOR abnormalities and normal findings cannot guarantee the absence of a problem.* [facility] Gynecological Report (Signed Final 01/23/2024 01:01 pm) PATIENT INFO: ID #: [id number] : [birth year] (38 yrs)(F) Name: JOSSE PENNY Visit Date: 01/23/2024 11:19 am DEEDS PERFORMED BY: Attending: Eboni Moise MD Performed By: Bel Lemos RDMS Referred By: YESSI MUNOZ Location: [facility] Marie Visit Type: [facility] SERVICE(S) PROVIDED: Mud Car Worker Transvaginal [id number] INDICATIONS: Excessive bleeding in the premenopausal N92.4 period Unsure on LMP, Bleeding since May 2023 TV OUTSIDE PRODUCTION INSPECTOR ultrasound TECHNIQUE/SCAN QUALITY: Technique: Transvaginal Approach Scan [...] Electronically Signed Final Report 01/23/2024 01:01 pm [facility] Eboni Moise MD - 01/23/2024 Gynecological Report (Signed Final 01/23/2024 01:01 pm) PATIENT INFO: ID #: [id number] : [birth year] (38 yrs)(F) Name: JOSSE PENNY Visit Date: 01/23/2024 11:19 am DEEDS PERFORMED BY: Attending: Eboni Moise MD Performed By: Bel Lemos RDMS Referred By: YESSI MUNOZ Location: [facility] Marie Visit Type: [facility] SERVICE(S) PROVIDED: Mud Car Worker Transvaginal [id number] INDICATIONS: Excessive bleeding in the premenopausal N92.4 period Unsure on LMP, Bleeding since May 2023 TV OUTSIDE PRODUCTION INSPECTOR ultrasound TECHNIQUE/SCAN QUALITY: Technique: Transvaginal Approach Scan [...] 02/14/2024. *Ultrasound cannot detect all pelvic or OUTSIDE PRODUCTION INSPECTOR abnormalities and normal findings cannot guarantee the absence of a problem.* [facility]-Mover Radiology Study observation (narrative) [facility]vis transvaginalOrdere d By: Eboni Moise on 01-23-2024 [employer] Work Phone: 36on 01-18-2024 36 Message released to patient as written. Yes Labs consistent with PCOS, can discuss at next visit Patient's further questions if applicable: N/A Were all questions from office addressed or relayed to the patient from encounter: Yes Normal [facility]-[employer]over System [facility] DHEA Sulfateon 01-12-2024 DHEA SULFATE 216.0 ug/dL Normal 57.3-279.2 [facility] Comment on above: Order Comment: NN Performed By: #### L 501.9985 #### [facility] Laboratory [facility] [address], [address] Insulin Levelon 01-12-2024 INSULIN,FASTING 40.8 uIU/mL High 2.6-24.9 [facility] Comment on above: Order Comment: NN Result Comment: Perf ormed at: - [facility] [id number] Administrative Tech: Cuate Malhotra PhD, Phone: [phone] Performed at: - [facility] [id number] Administrative Tech: Phil Archibald MD, Phone: [phone] Performed By: #### L 501.9985 #### [facility] Laboratory [address] [place], [address] PROLACTIN 4465on 01-12-2024 PROLACTIN 12.6 ng/mL Normal 4.8-33.4 [facility] Comment on above: Order Comment: NN Performed By: #### L 501.9985 #### [facility] Laboratory [address] [place], [address] Testosterone, Total / Freeon 01-12-2024 TESTOSTER,FREE 1.77 ng/dL Abnormal 0.10-0.85 [facility] Comment on above: Order Comment: N N Performed By: #### L 3100.9000, L100.0500, L3100.5400, L501.9520, L700.8000, L3100.5310, L501.0100, L3300.1500, L3300.3500 #### [facility] [address] [place], [address] TESTOSTER,TOTAL 77 ng/dL High 8-60 [facility] Comment on above: Order Comment: N N Performed By: #### L 3100.9000, L100.0500, L3100.5400, L501.9520, L700.8000, L3100.5310, L501.0100, L3300.1500, L3300.3500 #### [facility] [address] [place], [address] TESTOSTERONE,%F 2.30 Normal 0.50-2.80 [facility] Comment on above: Order Comment: N N Performed By: #### L 3100.9000, L100.0500, L3100.5400, L501.9520, L700.8000, L3100.5310, L501.0100, L3300.1500, L3300.3500 #### [facility] Laboratory [address] [place], [place], [address] 17-Hydroxyprogesteroneon 17ALPHA OH-PROG 59 ng/dL Normal . [facility] Comment on above: Order Comment: Test( s) 842968-98-BI Progesterone LCMS was developed and its performance characteristics determined by [employer]. It has not been cleared or approved by the Food and Drug Administration. N Result Comment: Adul t Female Follicular 15 - 70 Luteal 35 - 290 Performed at: [address] [id number] Administrative Tech: Phil Archibald MD, Phone: [phone] Performed By: #### L 3100.9000, L100.0500, L3100.5400, L501.9520, L700.8000, L3100.5310, L501.0100, L3300.1500, L3300.3500 #### [facility] Laboratory [address] [place], [place], [address] 36on 01-08-2024 36 S: The patient is ca lling the CAC about a medication B: She hung up prior to talking to a nurse R: Left a message for her to call back if she continues to need assistance. Reason for Disposition ? Message left on identified voicemail Protocols used: No Contact or Duplicate Contact Shot-[id number] Normal [facility] CBC-Complete Blood Cnt No Di ffon 01-05-2024 Erythrocyte distribution width (RBC) [Ratio] 12.1 % Normal 11.6-14.6 [facility] Comment on above: Performed By: #### L 3100.9000, L100.0500, L3100.5400, L501.9520, L700.8000, L3100.5310, L501.0100, L3300.1500, L3300.3500 #### [facility] [address] [place], [address] Hematocrit (Bld) [Volume fraction] 40.8 % Normal 37-47 [facility] Comment on above: Performed By: #### L 3100.9000, L100.0500, L3100.5400, L501.9520, L700.8000, L3100.5310, L501.0100, L3300.1500, L3300.3500 #### [facility] Laboratory [address] [place], [address] Hemoglobin (Bld) [Mass/Vol] 13.9 g/dL Normal 12.0-15.0 [facility] Comment on above: Performed By: #### L 3100.9000, L100.0500, L3100.5400, L501.9520, L700.8000, L3100.5310, L501.0100, L3300.1500, L3300.3500 #### [facility] Laboratory [address] [place], [address] MCH (RBC) [Entitic mass] 29.7 pg Normal 27.0-32.0 [facility] Comment on above: Performed By: #### L 3100.9000, L100.0500, L3100.5400, L501.9520, L700.8000, L3100.5310, L501.0100, L3300.1500, L3300.3500 #### [facility] Laboratory [address] [place], [address] MCHC (RBC) [Mass/Vol] 34.1 g/dL Normal 32-36 [facility] Comment on above: Performed By: #### L 3100.9000, L100.0500, L3100.5400, L501.9520, L700.8000, L3100.5310, L501.0100, L3300.1500, L3300.3500 #### [facility] [address] [place], [address] MCV (RBC) [Entitic vol] 87.2 fL Normal 81-99 [facility] Comment on above: Performed By: #### L 3100.9000, L100.0500, L3100.5400, L501.9520, L700.8000, L3100.5310, L501.0100, L3300.1500, L3300.3500 #### [facility] [address] [place], [address] Platelet mean volume (Bld) [Entitic vol] 9.8 fL Normal 6.2-12.0 [facility] Comment on above: Performed By: #### L 3100.9000, L100.0500, L3100.5400, L501.9520, L700.8000, L3100.5310, L501.0100, L3300.1500, L3300.3500 #### [facility] Laboratory [address] [place], [address] Platelets (Bld) [#/Vol] 331 10*3/uL Normal 150-450 [facility] Comment on above: Performed By: #### L 3100.9000, L100.0500, L3100.5400, L501.9520, L700.8000, L3100.5310, L501.0100, L3300.1500, L3300.3500 #### [facility] Laboratory [address] [place], [address] RBC (Bld) [#/Vol] 4.68 10*6/uL Normal 4.2-5.4 [facility] Comment on above: Performed By: #### L 3100.9000, L100.0500, L3100.5400, L501.9520, L700.8000, L3100.5310, L501.0100, L3300.1500, L3300.3500 #### [facility] [address] [place], [address] RDW SD 38.4 fl Normal 35.1-43.9 [facility] Comment on above: Performed By: #### L 3100.9000, L100.0500, L3100.5400, L501.9520, L700.8000, L3100.5310, L501.0100, L3300.1500, L3300.3500 #### [facility] [address] [place], [place], [address] WBC (Bld) [#/Vol] 5.4 10*3/uL Normal 4.4-11.0 [facility] Comment on above: Performed By: #### L 3100.9000, L100.0500, L3100.5400, L501.9520, L700.8000, L3100.5310, L501.0100, L3300.1500, L3300.3500 #### [facility] [address] [place], [place], [address] Glucoseon 01-05-2024 Glucose [Mass/Vol] 130 mg/dL High 74-106 [facility] Comment on above: Result Comment: Fast ing Glucose result greater than or equal to 126 mg/dL suggests DIABETES MELLITUS per A.D.A. criteria. Performed By: #### L 3100.9000, L100.0500, L3100.5400, L501.9520, L700.8000, L3100.5310, L501.0100, L3300.1500, L3300.3500 #### [facility] [address] [place], [address] Thyroid Stim Hormone (TSH)on 01-05-2024 TSH 2.060 uIU/mL Normal 0.358-3.74 0 [facility] Comment on above: Performed By: #### L 3100.9000, L100.0500, L3100.5400, L501.9520, L700.8000, L3100.5310, L501.0100, L3300.1500, L3300.3500 #### [facility] [address] [place], [place], [address] hCG Titer Quant., Serumon HCG QUANT. < 1 Normal 1-3 [facility] Comment on above: Result Comment: hCG levels with Gestational Age Gestational Age hCG mIU/mL (IU/L) 0.2 - 1 week 5 - 50 1-2 weeks 50 - 500 2-3 weeks 100 - 5000 3-4 weeks 500 - 10575 4-5 weeks 1000 - 04870 5-6 weeks 47466 - 100,000 6-8 weeks 70563 - 200,000 2-3 months 61779 - 100,000 Performed By: #### L 3100.9000, L100.0500, L3100.5400, L501.9520, L700.8000, L3100.5310, L501.0100, L3300.1500, L3300.3500 #### [facility] Laboratory [address] [place], [place], [address] 36on 01-03-2024 36 Prior Auth Megestrol acetate initiated through [employer]. Colin: [id number] *ERVIN kicked back an instant approval Normal [facility] Office Visiton 01-03-2024 Follow-up visit [id number] Yamilka Wayne 1985 F Date Provider Department Center 01/03/2024 [id number]-ESINGVDAIZYESSI [facility] OB Offi Family History Problem Relation Age of Onset Heart attack Maternal Grandfather Family Status - Relation Status Age at Maternal Grandfather Father Alive Mother Notes: cardiac arrest Level of Service:86229 DC OFFICE/OUTPATIENT ESTABLISHED MOD MDM 30 MIN Reason for Visit and Comments: Vaginal Bleeding [795946] - Pt bleeding since May Heavy bleeding Passing clots with cramping Normal [facility] Progress Noteon 01-03-2024 Progress Note Left message for pat iestacie to call to schedule surgery. 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 Normal [facility] Progress Note PATIENT called back scheduled 03/08/2024 at 3 pm waiting on PAT phone call info patient has juany soto Normal [facility] Hemoglobin A1con 12-14-2023 HbA1c (Bld) [Mass fraction] 5.5 % Normal 3.8-5.6 [facility] Comment on above: Result Comment: Norm al < 5.7 % Prediabetic 5.7 - 6.4 % Diabetic >or= 6.5 % Please note range changes. Performed By: #### L 079.0974 #### [facility] Laboratory [address] [place], [address] 36on 12-01-2023 36 Noted. Pt declined a dvice to go to ED and scheduled appt for 01/02 [facility] 36on 11-30-2023 36 S: Patient spoke sergey boyer [facility] nurse regarding vaginal bleeding. B: Onset of [...] 2 hours) Protocols used: Vaginal Bleeding - [id number] Normal [facility] STREP A MOLECULAR (POC)on Procedural Control Valid [facility] Strep A (POCT) Negative Negative [facility] Absolute lymphocyte countOrd ered By: Nita Duffy on 02-06-2023 Lymphocytes Auto (Unsp spec) [#/Vol] 1.32 10*3/uL 0.83-4.51 [facility] Basophil percentageOrdered B y: Nita Duffy on 02-06-2023 Basophil percentage 0 SEEN /hpf 0-5 [facility] Basophils/100 WBC (Bld) 0.4 % 0-1 [facility] Chloride [Moles/Vol] 108 mmol/L 98-107 [facility] Eosinophils/100 WBC (Bld) 0.1 % 0-5 [facility] Glucose [Mass/Vol] 113 mg/dL 74-106 [facility] Comment on above: Fasting Glucose resu lt from 100 to 125 mg/dL suggests IMPAIRED HOMEOSTASIS per A.D.A. criteria. Neutrophils (Bld) [#/Vol] 7.0 10*3/uL 2.0-7.7 [facility] Neutrophils/100 WBC (Bld) 78.5 % 47-70 [facility] Potassium [Moles/Vol] 4.7 mmol/L 3.5-5.1 [facility] Comment on above: Moderate Hemolysis, Result may be falsely increased. Sodium [Moles/Vol] 138 mmol/L 136-145 [facility] WBC (Bld) [#/Vol] 9.0 10*3/uL 4.4-11.0 [facility] Bilirubin Test strip Ql (U)O rdered By: Nita Duffy on 02-06-2023 Bilirubin Ql (U) Negative Negative [facility] Blood erythrocytes count (nu mber/volume)Ordered By: Nita Dufyf on 02-06-2023 RBC (Bld) [#/Vol] 4.55 10*6/uL 4.2-5.4 [facility] Blood hemoglobin measurement (mass/volume)Ordered By: Nita Duffy on 02-06-2023 Hemoglobin (Bld) [Mass/Vol] 14.2 g/dL 12.0-15.0 [facility] Blood lymphocytes/100 leukoc ytesOrdered By: Nita Duffy on 02-06-2023 Lymphocytes/100 WBC (Bld) 14.7 % 19-41 [facility] Blood monocytes/100 leukocyt esOrdered By: Nita Duffy on 02-06-2023 Monocytes/100 WBC (Bld) 6.1 % 0-10 [facility] Blood platelet mean volumeOr dered By: Nita Duffy on 02-06-2023 Platelet mean volume (Bld) [Entitic vol] 9.4 fL 6.2-12.0 [facility] Determination of erythrocyte mean corpuscular volume (MCV)Ordered By: Nita Duffy on 02-06-2023 MCV (RBC) [Entitic vol] 89.7 fL 81-99 [facility] Hematocrit Auto (Bld) [Volum e fraction]Ordered By: Nita Duffy on 02-06-2023 Hematocrit (Bld) [Volume fraction] 40.8 % 37-47 [facility] Ketones Test strip Ql (U)Ord ered By: Nita Duffy on 02-06-2023 Ketones Ql (U) Negative Negative [facility] Laboratory - Chemistry and C hemistry - challengeOrdered By: Nita Duffy on 02-06-2023 CO2 [Moles/Vol] 28.0 mmol/L 21.0-32.0 [facility] Urea nitrogen/Creatinine [Mass ratio] 14.9 mg/mg 10-20 [facility] Laboratory - Hematology and Cell countsOrdered By: Nita Duffy on 02-06-2023 Erythrocyte distribution width (RBC) [Entitic vol] 38.8 fL 35.1-43.9 [facility] Erythrocyte distribution width (RBC) [Ratio] 11.9 % 11.6-14.6 [facility] Immature granulocytes/100 WBC (Bld) 0.200 % 0.0-0.9 [facility] Comment on above: IG% - Immature Granu locytes (promyelocytes, myelocytes and metamyelocytes) > 1% indicates that a LEFT SHIFT is Present. MCH (RBC) [Entitic mass] 31.2 pg 27.0-32.0 [facility] Nucleated RBC/100 WBC (Bld) [Ratio] 0 % 0-5 [facility] MCHC Auto (RBC) [Mass/Vol]Or dered By: Nita Duffy on 02-06-2023 MCHC (RBC) [Mass/Vol] 34.8 g/dL 32-36 [facility] Mucus LM Ql (Urine sed)Order ed By: Nita Duffy on 02-06-2023 Mucus Ql (Urine sed) 0 SEEN /hpf [facility] Nitrite Test strip Ql (U)Ord ered By: Nita Duffy on 02-06-2023 Nitrite Ql (U) Negative Negative [facility] No Panel InformationOrdered By: Nita Duffy on 02-06-2023 Estimated Creatinine Clearance Calc 74.12 ml/min [facility] Estimated GFR (MDRD) Amer 92 mL/min >60 [facility] Comment on above: GFR Calc Estimated GFR (MDRD) Non-Af Amer 76 mL/min >60 [facility] Comment on above: Non- GFR Calc Platelets bldOrdered By: Raquel Duffy on 02-06-2023 Platelets (Bld) [#/Vol] 318 10*3/uL 150-450 [facility] Protein Test strip Ql (U)Ord ered By: Nita Duffy on 02-06-2023 Protein Ql (U) Negative Negative [facility] Serum or plasma calcium da urement (mass/volume)Ordered By: Nita Duffy on 02-06-2023 Calcium [Mass/Vol] 9.7 mg/dL 8.5-10.1 [facility] Serum or plasma creatinine m easurement (mass/volume)Ordered By: Nita Duffy on 02-06-2023 Creatinine [Mass/Vol] 0.88 mg/dL 0.55-1.02 [facility] Comment on above: The validity of the calculated GFR & GFRAA in patients over 70 years has not been determined. Clinical correlation is essential. Serum or plasma urea nitroge n measurement (mass/volume)Ordered By: Nita Duffy on 02-06-2023 Urea nitrogen [Mass/Vol] 13 mg/dL 7-18 [facility] Squamous epithelial cells de tection in urine sediment by light microscopyOrdered By: Nita Duffy on 02-06-2023 Epithelial cells.squamous LM Ql (Urine sed) 0 SEEN /hpf 5-10 [facility] Thin prep Papanicolaou smear with manual screeningOrdered By: Nita Duffy on 02-06-2023 Thin prep Papanicolaou smear with manual screening 2 5-15 [facility] Urine blood detectionOrdered By: Nita Duffy on 02-06-2023 RBC Ql (U) Negative Negative [facility] RBC Ql (U) 0 SEEN /hpf 0-5 [facility] Urine clarityOrdered By: Raquel Duffy on 02-06-2023 Clarity (U) Clear Clear [facility] Urine color determinationOrd ered By: Nita Duffy on 02-06-2023 Color (U) Yellow Yellow [facility] Urine glucose detectionOrder ed By: Nita Duffy on 02-06-2023 Glucose Ql (U) Normal mg/dl Normal [facility] Urine leukocyte esterase det ection by dipstickOrdered By: Nita Duffy on 02-06-2023 Leukocyte esterase Test strip Ql (U) Negative Negative [facility] Urine pHOrdered By: Nita Duffy on 02-06-2023 pH (U) 6.0 [pH] 5.0 - 8.0 [facility] Urine sediment bacteria coun t by microscopy (number/high power field)Ordered By: Nita Duffy on 02-06-2023 Bacteria LM.HPF (Urine sed) [#/Area] 0 /[HPF] None Seen [facility] Urine specific gravity measu rementOrdered By: Nita Duffy on 02-06-2023 Specific gravity (U) [Rel density] 1.025 1.002-1.03 0 [facility] Urobilinogen Auto test strip Ql (U)Ordered By: Nita Duffy on 02-06-2023 Urobilinogen Ql (U) Normal mg/dl Normal [facility] CNOVon 03-02-2022 CNOV [facility] -- JOSSE WAYNE ([id number]) 1985 F Date Time Provider Department 03/02/22 2:40 PM GABE PIERRE During your visit today, we recorded the following information about you: Temperature Pulse Respiration Blood pressure 98.2 degrees 82/minute 24/minute 110/78 Weight Height 139.7 kg 1.626 m Gabe Pierre APRN.CNP 03/02/2022 3:39 PM Signed This note was created using NoteWriter. Hu Orlandoy D Deeds is a 36 year old female here today to establish care. PMH PTSD, PCOS, obesity, hirsutism, epilepsy. Former PCP Dr Vazquez in [place]. Anxiety, Depression, PTSD: chronic, stable. She is seeing psychiatrist at [facility]. She is taking Celexa 30 mg daily, [...] She is seeing Dr Anderson Pedroza in [place]. Reports last seizure 2012. Reports her keppra [...] and COVID vaccines. 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 ALLERGIES Allergen Reactions Phenobarbital Rash Current [...] (more content not included)... Normal [facility] Armando 02-28-2022 CNCO Letter Text Normal [facility] CNPSparkle 02-28-2022 CNPN Telephone (AGINTML[facility]) -- JOSSE WAYNE ([id number]) 1985 F Date Time Provider Department 02/28/22 GABE PIERRE AGINTMLW During your visit today, we recorded the following information about you: Blessing Amezcua MA 02/28/2022 2:39 PM Signed ----- Message from July Aubrie Martinez sent at 02/24/2022 1:28 PM EST ----- Regarding: FW: new pt ----- Message ----- From: Jessica Monson Sent: 02/24/2022 1:11 PM EST To: James Munoz/[facility] Triage Pool Subject: new pt [...] to office for appt on 03/02/22 fax [phone] jojo Was Patient Referred to 911/Seek Emergency Treatment (Y/N): n Did Patient Agree (Y/N): n Was An Attempt Made To Transfer The Patient To The Office (Y/N): n Were You Able To Reach Someone At The Office (Y/N): n If Yes - Patient Was Transferred To (Caregivers Name): n If No - Which [facility] Leadership Assistant Gm Of Content & Delivery Did You Speak With Regarding This Patient: n Was an appointment scheduled (Y/N): n Reason patient was requesting visit (RFV/signs and symptoms/diagnosis) : na Person calling if other than patient: na Return call to if other than patient: na Best contact number: [phone] Thank you, Jessica Monson February 24, 2022 [...] 02-24-2022 CNPN Telephone (AGINTMLW) -- JOSSE WAYNE ([id number]) 1985 F Date Time Provider Department 02/24/22 GABE PIERRE AGINTMLW During your visit today, we recorded the following information about you: Monique Levine 02/24/2022 1:55 PM Signed ----- Message [...] would like a note faxed over to glennzayra who is handling her trsanspotation for the appt would like note to say she was referred to office for appt on 03/02/22 fax [phone] jojo Was Patient Referred to 1/Seek Emergency Treatment (Y/N): n Did Patient Agree (Y/N): n Was An Attempt Made To Transfer The Patient To The Office (Y/N): n Were You Able To Reach Someone At The Office (Y/N): n If Yes - Patient Was Transferred To (Caregivers Name): n If No - Which [facility] Leadership Assistant Gm Of Content & Delivery Did You Speak With Regarding This Patient: n Was an appointment scheduled (Y/N): n Reason patient was requesting visit (RFV/signs and symptoms/diagnosis) : na Person calling if other than patient: na Return call to if other than patient: na Best contact number: [phone] Thank you, Jessica Monson February 24, 2022 1:09 PM Blessing Amezcua MA 02/28/2022 4:54 PM Signed Letter faxed Blessing Amezcua MA Allergies As of Date: 02/24/2022 Noted Allergy Reaction PHENOBARBITAL 09/12/2006 2 - Rash Date Reviewed: 01/21/2022 Reviewed by: Makeda Blakely Ma - Fully Assessed Reason for Visit: Patient Question [5837] Prescriptions as of 02/28/2022 - citalopram (CELEXA) [...] AMEZCUA on 02/28/22 [facility] Absolute lymphocyte counton 01-09-2022 Lymphocytes Auto (Unsp spec) [#/Vol] 1.48 10*3/uL 0.83-4.51 [facility] Work Phone: Basophil percentageon 2021 Basophils/100 WBC (Bld) 0.6 % 0-1 [facility] Work Phone: Bilirubin [Mass/Vol] 0.40 mg/dL 0.20-1.00 [facility] [place] Work Phone: Comment on above: For patients on eltr ombopag therapy, use of Dimension [place] TBIL is not recommended. Chloride [Moles/Vol] 104 mmol/L 98-107 [facility] [place] Work Phone: Eosinophils/100 WBC (Bld) 0.4 % 0-5 [facility] Work Phone: Glucose [Mass/Vol] 153 mg/dL 74-106 [facility] Work Phone: Comment on above: Fasting Glucose resu lt greater than or equal to 126 mg/dL suggests DIABETES MELLITUS per A.D.A. criteria. Neutrophils (Bld) [#/Vol] 5.7 10*3/uL 2.0-7.7 [facility] Work Phone: Neutrophils/100 WBC (Bld) 72.8 % 47-70 [facility] Work Phone: Potassium [Moles/Vol] 3.3 mmol/L 3.5-5.1 [facility] Work Phone: Protein [Mass/Vol] 7.9 g/dL 6.4-8.2 [facility] Work Phone: [phone] Sodium [Moles/Vol] 138 mmol/L 136-145 [facility] Work Phone: WBC (Bld) [#/Vol] 7.8 10*3/uL 4.4-11.0 [facility] Work Phone: Blood erythrocytes count (nu mber/volume)on 01-09-2022 RBC (Bld) [#/Vol] 4.80 10*6/uL 4.2-5.4 [facility] Work Phone: Blood hemoglobin measurement (mass/volume)on 01-09-2022 Hemoglobin (Bld) [Mass/Vol] 14.6 g/dL 12.0-15.0 [facility] Work Phone: [phone] Blood lymphocytes/100 leukoc yteson 01-09-2022 Lymphocytes/100 WBC (Bld) 19.0 % 19-41 [facility] Work Phone: [phone] Blood monocytes/100 leukocyt eson 01-09-2022 Monocytes/100 WBC (Bld) 6.8 % 0-10 [facility] Work Phone: Blood platelet mean volumeon 01-09-2022 Platelet mean volume (Bld) [Entitic vol] 10.0 fL 6.2-12.0 [facility] Work Phone: Determination of erythrocyte mean corpuscular volume (MCV)on 01-09-2022 MCV (RBC) [Entitic vol] 86.7 fL 81-99 [facility] Work Phone: Hematocrit Auto (Bld) [Volum e fraction]on 01-09-2022 Hematocrit (Bld) [Volume fraction] 41.6 % 37-47 [facility] Work Phone: Laboratory - Chemistry and C hemistry - challengeon 01-09-2022 ALP [Catalytic activity/Vol] 71 U/L 45-117 [facility] Work Phone: [phone] ALT [Catalytic activity/Vol] 58 U/L 13-56 [facility] Work Phone: [phone] CO2 [Moles/Vol] 22.0 mmol/L 21.0-32.0 [facility] Work Phone: [phone] Globulin (S) [Mass/Vol] 4.1 g/dL 2.2-4.2 [facility] Work Phone: [phone] Urea nitrogen/Creatinine [Mass ratio] 10.9 mg/mg 10-20 [facility] Work Phone: [phone] Laboratory - Hematology and Cell countson 01-09-2022 Erythrocyte distribution width (RBC) [Entitic vol] 38.3 fL 35.1-43.9 [facility] Work Phone: [phone] Erythrocyte distribution width (RBC) [Ratio] 11.9 % 11.6-14.6 [facility] Work Phone: [phone] Immature granulocytes/100 WBC (Bld) 0.400 % 0.0-0.9 [facility] Work Phone: [phone] Comment on above: IG% - Immature Granu locytes (promyelocytes, myelocytes and metamyelocytes) > 1% indicates that a LEFT SHIFT is Present. MCH (RBC) [Entitic mass] 30.4 pg 27.0-32.0 [facility] Work Phone: [phone] Nucleated RBC/100 WBC (Bld) [Ratio] 0 % 0-5 [facility] Work Phone: [phone] MCHC Auto (RBC) [Mass/Vol]on 01-09-2022 MCHC (RBC) [Mass/Vol] 35.1 g/dL 32-36 [facility] Work Phone: [phone] Panel Informationon 01-09 Estimated Creatinine Clearance Calc 59.88 ml/min [facility] Work Phone: [phone] Estimated GFR (MDRD) Amer 71 mL/min >60 [facility] Work Phone: [phone] Comment on above: GFR Calc Estimated GFR (MDRD) Non-Af Amer 59 mL/min >60 [facility] Work Phone: Comment on above: Non- GFR Calc Platelets bldon 01-09-2022 Platelets (Bld) [#/Vol] 319 10*3/uL 150-450 [facility] Work Phone: Serum or plasma albumin da urement (mass/volume)on 01-09-2022 Albumin [Mass/Vol] 3.8 g/dL 3.2-5.0 [facility] Work Phone: Serum or plasma albumin/glob ulin mass ratioon 01-09-2022 Albumin/Globulin [Mass ratio] 0.9 {ratio} 0.9-2.4 [facility] Work Phone: [phone] Serum or plasma calcium da urement (mass/volume)on 01-09-2022 Calcium [Mass/Vol] 9.6 mg/dL 8.5-10.1 [facility] Work Phone: [phone] Serum or plasma creatinine m easurement (mass/volume)on 01-09-2022 Creatinine [Mass/Vol] 1.10 mg/dL 0.55-1.02 [facility] Work Phone: Comment on above: The validity of the calculated GFR & GFRAA in patients over 70 years has not been determined. Clinical correlation is essential. Serum or plasma urea nitroge n measurement (mass/volume)on 01-09-2022 Urea nitrogen [Mass/Vol] 12 mg/dL 7-18 [facility] Work Phone: Thin prep Papanicolaou smear with manual screeningon 01-09-2022 Thin prep Papanicolaou smear with manual screening 23 U/L 15-37 [facility] Work Phone: [phone] Thin prep Papanicolaou smear with manual screening 12 5-15 [facility] Work Phone: Basophil percentageon 2021 Basophil percentage 0 SEEN /hpf 0-5 [facility] [place] Work Phone: [phone] Bilirubin Test strip Ql (U)o n 11-03-2021 Bilirubin Ql (U) Negative Negative [facility] Work Phone: Ketones Test strip Ql (U)on 11-03-2021 Ketones Ql (U) 15 mg/dl Negative [facility] Work Phone: Mucus LM Ql (Urine sed)on Mucus Ql (Urine sed) 0 SEEN /hpf [facility] Work Phone: Nitrite Test strip Ql (U)on 11-03-2021 Nitrite Ql (U) Negative Negative [facility] Work Phone: Protein Test strip Ql (U)on 11-03-2021 Protein Ql (U) Negative Negative [facility] Work Phone: Squamous epithelial cells de tection in urine sediment by light microscopyon 11-03-2021 Epithelial cells.squamous LM Ql (Urine sed) 0-5 SEEN /hpf 5-10 [facility] Work Phone: Urine blood detectionon 10-12 RBC Ql (U) Negative Negative [facility] Work Phone: RBC Ql (U) 0 SEEN /hpf 0-5 [facility] Work Phone: Urine clarityon 11-03-2021 Clarity (U) Clear Clear [facility] Work Phone: Urine color determinationon 11-03-2021 Color (U) Straw Yellow [facility] Work Phone: Urine glucose detectionon Glucose Ql (U) Normal mg/dl Normal [facility] Work Phone: Urine leukocyte esterase det ection by dipstickon 11-03-2021 Leukocyte esterase Test strip Ql (U) Negative Negative [facility] Work Phone: Urine pHon 11-03-2021 pH (U) 6.0 [pH] 5.0 - 8.0 [facility] Work Phone: Urine sediment bacteria coun t by microscopy (number/high power field)on 11-03-2021 Bacteria LM.HPF (Urine sed) [#/Area] 0 /[HPF] None Seen [facility] Work Phone: Urine specific gravity measu rementon 11-03-2021 Specific gravity (U) [Rel density] 1.010 1.002-1.03 0 [facility] Work Phone: Urobilinogen Auto test strip Ql (U)on 11-03-2021 Urobilinogen Ql (U) Normal mg/dl Normal [facility] Work Phone: Absolute lymphocyte counton 10-18-2021 Lymphocytes Auto (Unsp spec) [#/Vol] 1.70 10*3/uL 0.83-4.51 [facility] Work Phone: Acetaminophen level (mass/vo lume)on 10-18-2021 Acetaminophen (Unsp spec) [Mass/Vol] < 2.0 ug/mL 10.0-30.0 [facility] Work Phone: Basophil percentageon 2021 Basophils/100 WBC (Bld) 0.5 % 0-1 [facility] Work Phone: Chloride [Moles/Vol] 109 mmol/L 98-107 [facility] [place] Work Phone: Eosinophils/100 WBC (Bld) 1.4 % 0-5 [facility] Work Phone: Glucose [Mass/Vol] 118 mg/dL 74-106 [facility] Work Phone: Comment on above: Fasting Glucose resu lt from 100 to 125 mg/dL suggests IMPAIRED HOMEOSTASIS per A.D.A. criteria. Neutrophils (Bld) [#/Vol] 3.6 10*3/uL 2.0-7.7 [facility] Work Phone: Neutrophils/100 WBC (Bld) 61.9 % 47-70 [facility] Work Phone: Potassium [Moles/Vol] 3.5 mmol/L 3.5-5.1 [facility] Work Phone: Sodium [Moles/Vol] 139 mmol/L 136-145 [facility] Work Phone: WBC (Bld) [#/Vol] 5.8 10*3/uL 4.4-11.0 [facility] Work Phone: Beta hCG serum qualon 2021 Beta HCG ( test) Ql Negative [facility] Work Phone: Blood erythrocytes count (nu mber/volume)on 10-18-2021 RBC (Bld) [#/Vol] 4.76 10*6/uL 4.2-5.4 [facility] Work Phone: Blood hemoglobin measurement (mass/volume)on 10-18-2021 Hemoglobin (Bld) [Mass/Vol] 14.4 g/dL 12.0-15.0 [facility] Work Phone: Blood lymphocytes/100 leukoc yteson 10-18-2021 Lymphocytes/100 WBC (Bld) 29.6 % 19-41 [facility] Work Phone: Blood monocytes/100 leukocyt eson 10-18-2021 Monocytes/100 WBC (Bld) 6.3 % 0-10 [facility] Work Phone: Blood platelet mean volumeon 10-18-2021 Platelet mean volume (Bld) [Entitic vol] 9.4 fL 6.2-12.0 [facility] Work Phone: Determination of erythrocyte mean corpuscular volume (MCV)on 10-18-2021 MCV (RBC) [Entitic vol] 87.2 fL 81-99 [facility] Work Phone: Hematocrit Auto (Bld) [Volum e fraction]on 10-18-2021 Hematocrit (Bld) [Volume fraction] 41.5 % 37-47 [facility] Work Phone: Laboratory - Chemistry and C hemistry - challengeon 10-18-2021 CO2 [Moles/Vol] 24.0 mmol/L 21.0-32.0 [facility] Work Phone: Urea nitrogen/Creatinine [Mass ratio] 14.5 mg/mg 10-20 [facility] Work Phone: [phone] Laboratory - Drug toxicology on 10-18-2021 Amphetamines Ql (U) Negative <1000 ng/mL [facility] Work Phone: [phone] Benzodiazepines Ql (U) Positive < 200 ng/mL [facility] Work Phone: [phone] Cannabinoids Screen Ql (U) Negative < 50 ng/mL [facility] Work Phone: [phone] Cocaine Ql (U) Negative < 300 ng/mL [facility] Work Phone: [phone] Opiates Ql (U) Negative < 300 ng/mL [facility] Work Phone: [phone] Laboratory - Hematology and Cell countson 10-18-2021 Erythrocyte distribution width (RBC) [Entitic vol] 38.6 fL 35.1-43.9 [facility] Work Phone: [phone] Erythrocyte distribution width (RBC) [Ratio] 12.0 % 11.6-14.6 [facility] Work Phone: [phone] Immature granulocytes/100 WBC (Bld) 0.300 % 0.0-0.9 [facility] Work Phone: [phone] Comment on above: IG% - Immature Granu locytes (promyelocytes, myelocytes and metamyelocytes) > 1% indicates that a LEFT SHIFT is Present. MCH (RBC) [Entitic mass] 30.3 pg 27.0-32.0 [facility] Work Phone: [phone] Nucleated RBC/100 WBC (Bld) [Ratio] 0 % 0-5 [facility] Work Phone: [phone] MCHC Auto (RBC) [Mass/Vol]on 10-18-2021 MCHC (RBC) [Mass/Vol] 34.7 g/dL 32-36 [facility] Work Phone: [phone] Panel Informationon 10-18 MDMA (Ecstasy) Screen Negative < 500 ng/mL [facility] Work Phone: [phone] Urine Barbiturates Screen Negative < 200 ng/mL [facility] Work Phone: Urine Drug Screen Comment [facility] Work Phone: Comment on above: CONFIRMATORY TESTING FOR ALL [...] Urine Methadone Screen Negative < 300 ng/mL [facility] Work Phone: [phone] Estimated Creatinine Clearance Calc 79.36 ml/min [facility] Work Phone: [phone] Estimated GFR (MDRD) Amer 99 mL/min >60 [facility] Work Phone: [phone] Comment on above: GFR Calc Estimated GFR (MDRD) Non-Af Amer 82 mL/min >60 [facility] Work Phone: Comment on above: Non- GFR Calc Ethyl Alcohol Level 6.0 mg/dL [facility] Work Phone: [phone] Comment on above: The serum:whole bloo d ethanol ratio is approximately 1.14and varies slightly with hematocrit. Medical Alcohol reference interval and critical value innon-tolerant individuals; 50 - 100 Impairment 100 Intoxication 100 - 250 Severe Poisoning 250 - 400 Deep/possible fatal coma Platelets bldon 10-18-2021 Platelets (Bld) [#/Vol] 310 10*3/uL 150-450 [facility] Work Phone: [phone] Serum or plasma calcium da urement (mass/volume)on 10-18-2021 Calcium [Mass/Vol] 9.1 mg/dL 8.5-10.1 [facility] Work Phone: [phone] Serum or plasma creatinine m easurement (mass/volume)on 10-18-2021 Creatinine [Mass/Vol] 0.83 mg/dL 0.55-1.02 [facility] Work Phone: Comment on above: The validity of the calculated GFR & GFRAA in patients over 70 years has not been determined. Clinical correlation is essential. Serum or plasma salicylates measurement (mass/volume)on 10-18-2021 Salicylates [Mass/Vol] mg/dL 2.8-20.0 [facility] Work Phone: Serum or plasma urea nitroge n measurement (mass/volume)on 10-18-2021 Urea nitrogen [Mass/Vol] 12 mg/dL 7-18 [facility] Work Phone: Thin prep Papanicolaou smear with manual screeningon 10-18-2021 Thin prep Papanicolaou smear with manual screening 6 5-15 [facility] Work Phone: Urine phencyclidine (PCP) de tectionon 10-18-2021 Phencyclidine Ql (U) Negative < 25 ng/mL [facility] [place] Work Phone: Basophil percentageon 2021 Basophil percentage 0-5 SEEN /hpf 0-5 [facility] Work Phone: Bilirubin Test strip Ql (U)o n 08-02-2021 Bilirubin Ql (U) Negative Negative [facility] Work Phone: Ketones Test strip Ql (U)on 08-02-2021 Ketones Ql (U) Negative Negative [facility] Work Phone: Mucus LM Ql (Urine sed)on Mucus Ql (Urine sed) 0 SEEN /hpf [facility] Work Phone: Nitrite Test strip Ql (U)on 08-02-2021 Nitrite Ql (U) Negative Negative [facility] Work Phone: Protein Test strip Ql (U)on 08-02-2021 Protein Ql (U) Negative Negative [facility] Work Phone: Squamous epithelial cells de tection in urine sediment by light microscopyon 08-02-2021 Epithelial cells.squamous LM Ql (Urine sed) 5-10 SEEN /hpf 5-10 [facility] Work Phone: Urine blood detectionon 07-12 RBC Ql (U) Negative Negative [facility] Work Phone: RBC Ql (U) 0-5 SEEN /hpf 0-5 [facility] Work Phone: Urine clarityon 08-02-2021 Clarity (U) Clear Clear [facility] Work Phone: Urine color determinationon 08-02-2021 Color (U) Yellow Yellow [facility] Work Phone: Urine glucose detectionon Glucose Ql (U) Normal mg/dl Normal [facility] Work Phone: Urine leukocyte esterase det ection by dipstickon 08-02-2021 Leukocyte esterase Test strip Ql (U) Negative Negative [facility] Work Phone: Urine pHon 08-02-2021 pH (U) 6.0 [pH] 5.0 - 8.0 [facility] Work Phone: Urine sediment bacteria coun t by microscopy (number/high power field)on 08-02-2021 Bacteria LM.HPF (Urine sed) [#/Area] 2 /[HPF] None Seen [facility] Work Phone: Urine specific gravity measu rementon 08-02-2021 Specific gravity (U) [Rel density] 1.015 1.002-1.03 0 [facility] Work Phone: Urobilinogen Auto test strip Ql (U)on 08-02-2021 Urobilinogen Ql (U) Normal mg/dl Normal [facility] Work Phone: Follicle Stim Hormoneon 12-11 Follicle Stim Hormone 2.7 m[IU]/mL Normal S [facility] Comment on above: Result Comment: Females: Follicular Phase ...... 2.3-12.6 Mid-cycle Peak ........ 5.2-17.5 Luteal Phase .......... 1.7-12.9 Post-menopausal ....... 12.7-132.2 Males: 0.7-10.8 Performed By: #### F SH3 #### [facility] [employer] [facility] [address] [place] [address] Follicle Stimulating Hormone Ordered By: Yessi Munoz on 12-23-2020 FSH 2.7 m[IU]/mL [facility] Work Phone: [phone] Comment on above: Females: Follicular Phase ...... 2.3-12.6 Mid-cycle Peak ........ 5.2-17.5 Luteal Phase .......... 1.7-12.9 Post-menopausal ....... 12.7-132.2 Males: 0.7-10.8 Test Performed by [facility], [address], [place], [place] [address] [facility] Work Phone: [facility] Work Phone: Insulinon 11-02-2020 Insulin 21 uIU/mL Normal [facility] Comment on above: Result Comment: INTE [...] fasting insulin is 3-25 uIU/mL. Performed By: [facility] [address] [place] [id number] Campaign Associate: Jovanna Núñez MD Performed By: #### D HEAO, INSO, 17HPO, TSTFO #### The performing lab is in the report. #### PRLA3 #### [facility] [employer] [facility] [address] [place] [address] #### GLUC3, TSH5 #### [facility] [address] [place] [address] Testo,Free/Total-Femaleon SHBG 33 nmol/L Normal 30-135 [facility] Comment on above: Result Comment: REFE RENCE INTERVAL: Sex Hormone Binding Globulin Access complete set of age- and/or gender-specific reference intervals for this test in the [facility] Test Directory ([employer]). Performed By: #### D HEAO, INSO, 17HPO, TSTFO #### The performing lab is in the report. #### PRLA3 #### [facility] [employer] [facility] [address] [place] [address] #### GLUC3, TSH5 #### [facility] [employer] [facility] [address] [place] [address] Testosterone [Mass/Vol] 64 ng/dL High 9-55 [facility] Comment on above: Result Comment: Tota l Testosterone, Females 18 years and older Premenopausal 9-55 ng/dL Postmenopausal 5-32 ng/dL REFERENCE INTERVAL: Testosterone, LC-MS/MS Access complete set of age- and/or gender-specific reference intervals for this test in the [facility] [place]) Test Directory ([employer]). This test was developed and its performance characteristics determined by [facility]. It has not been cleared or approved by the [place] Food and Drug Administration. This test was performed in a CLIA certified laboratory and is intended for clinical purposes. Performed By: #### D HEAO, INSO, 17HPO, TSTFO #### The performing lab is in the report. #### PRLA3 #### [facility] [employer] [facility] [address] [place] [address] #### GLUC3, TSH5 #### [facility] [employer] [facility] [address] [place] [address] Testosterone, Free 10.7 pg/mL High 1.3-9.2 [facility] Comment on above: Result Comment: To [...] reference intervals for this test in the [facility] Test Directory ([employer]). This test was developed and its performance characteristics determined by [facility]. It has not been cleared or approved by the [place] Food and Drug Administration. This test was performed in a CLIA certified laboratory and is intended for clinical purposes. Performed By: [facility] [address] [place] [address] Campaign Associate: Jovanna Núñez MD Performed By: #### Gayle HEAO, INSO, 17HPO, TSTFO #### The performing lab is in the report. #### PRLA3 #### [facility] [address] [place] [address] #### GLUC3, TSH5 #### [facility] [address] [place] [address] 17-Hydroxyprogesterone, Darrick ton 11-01-2020 17 [place] Progesterone 48.27 ng/dL Normal <=206.00 [facility] Comment on above: Result Comment: INTE RPRETIVE INFORMATION for 17-Hydroxyprogesterone in females: Follicular 15 to 70 ng/dL Luteal 35 to 290 ng/dL REFERENCE INTERVAL: 17-Hydroxyprogesterone Qnt, HPLC-MS/MS Access complete set of age- and/or gender-specific reference intervals for this test in the [facility] Test Directory ([employer]). This test was developed and its performance characteristics determined by [facility]. It has not been cleared or approved by the [place] Food and Drug Administration. This test was performed in a CLIA certified laboratory and is intended for clinical purposes. Performed By: [facility] [address] [place] [address] Campaign Associate: Jovanna Núñez MD Performed By: #### D PEDRO PABLOAO, INSO, 17HPO, TSTFO #### The performing lab is in the report. #### PRLA3 #### [facility] [employer] [facility] [address] [place] [address] #### GLUC3, TSH5 #### [facility] [address] [place] [address] DHEA SO4on 10-31-2020 DHEA SO4 241 ug/dL Normal 45-270 [facility] Comment on above: Result Comment: REFE RENCE INTERVAL: DHEAS Access complete set of age- and/or gender-specific reference intervals for this test in the [facility] Test Directory ([employer]). Performed By: [facility] [address] [place] [address] Campaign Associate: Jovanna Núñez MD Performed By: #### D HEJANNA, INSO, 17HPO, TSTFO #### The performing lab is in the report. #### PRLA3 #### [facility] [address] [place] [address] #### GLUC3, TSH5 #### [facility] [address] [place] [id number] Glucoseon 10-28-2020 Glucose [Mass/Vol] 97 mg/dL Normal 70-100 [facility] Comment on above: Performed By: #### D THOR, INSO, 17HPO, TSTFO #### The performing lab is in the report. #### PRLA3 #### [facility] [address] [place] [address] #### GLUC3, TSH5 #### [facility] [address] [facility] [place] [address] GlucoseOrdered By: Yessi madison on 10-28-2020 Glucose [Mass/Vol] 97 mg/dL 70 - 100 mg/dL [facility] Work Phone: Test Performed by [facility], [address] [place], [place] [address]A Work Phone: [facility] Work Phone: Prolactinon 10-28-2020 Prolactin 8.0 ng/mL Normal 2.8-27.0 [facility] Comment on above: Result Comment: Valu es below 35 ng/mL may be of doubtful significance. Recommend send-out testing to rule out macroprolactin to confirm the result. Performed By: #### D HEJANNA, INSO, 17HPO, TSTFO #### The performing lab is in the report. #### PRLA3 #### [facility] [address] [place] [address] #### GLUC3, TSH5 #### [facility] [address] [facility] [place] [address] ProlactinOrdered By: Yessi Munoz on 10-28-2020 Prolactin 8 ng/mL 2.8 - 27.0 ng/mL [facility] Work Phone: [phone] Comment on above: Values below 35 ng/m L may be of doubtful significance. Recommend send-out testing to rule out macroprolactin to confirm the result. Test Performed by [facility], [address], [address] Work Phone: [phone] [employer] Work Phone: [phone] TSH without ReflexOrdered By : Yessi Munoz on 10-28-2020 TSH Qn 0.531 u[IU]/mL 0.465 - 4.680 u[IU]/mL [facility] Work Phone: [phone] Test Performed by [facility] [employer] [facility], [address] , [place], [place] [address] Work Phone: [phone] [facility] Work Phone: [phone] Thyroid Stim. Hormoneon 10-11 Thyroid Stim. Hormone 0.531 u[IU]/mL Normal 0.46 5-4.68 0 [facility] Comment on above: Performed By: #### D HEAO, INSO, 17HPO, TSTFO #### The performing lab is in the report. #### PRLA3 #### [facility] [address] [place] [address] #### GLUC3, TSH5 #### [facility] [address] [place] [address] XR Knee - right 4 Viewson IMPRESSION: No acute fracture or dislocation. Automation Analyst: PSCB Transcribe Date/Time: Oct 20 2020 5:59P Dictated by : CRISTAL TOWNSEND MD This examination was interpreted and the report reviewed and electronically signed by: CRISTAL TOWNSEND MD on Oct 20 2020 6:01PM [facility] DIVISION OF RADIOLOGY * * *Final [...] on the right. DIVISION OF RADIOLOGY Provider, [facility]2020 * * *Final Report* [...] IMPRESSION IMPRESSION: No acute fracture or dislocation. Automation Analyst: PSCB Transcribe Date/Time: Oct 20 2020 5:59P Dictated by : CRISTAL TOWNSEND MD This examination was interpreted and the report reviewed and electronically signed by: CRISTAL TOWNSEND MD on Oct 20 2020 6:01PM EST [facility] Radiology Study observation (narrative) [facility] XR Knee - right 4 ViewsOrder ed By: Cc Provider on 10-20-2020 [facility] Keppra{R} (Levetiracetam)on 09-11-2018 Keppra (Levetiracetam) 10 ug/mL Low 12-46 [facility] Comment on above: Result Comment: INTE RPRETIVE INFORMATION: Keppra (Levetiracetam) Therapeutic Range: 12-46 ug/mL Toxic: Not well Established Pharmacokinetics of levetiracetam are affected by renal function. Adverse effects may include somnolence, weakness, headache and vomiting. This levetiracetam (Keppra) immunoassay uses the [employer] reagents, which has known cross-reactivity with the drug brivaracetam (Briviact) and may report inaccurate results. Patients transitioning from levetiracetam to brivaracetam or those who are using both medications should not monitor drug concentrations with the [employer] assay. These patients should be monitored using a validated chromatographic methodology that distinguishes between drugs to determine drug concentrations. Performed by [facility], [address] [place] [id number] [email or web address], Lucas Ignacio MD - Lab. Director Lipid Panelon 09-10-2018 Cholesterol [Mass/Vol] 183 mg/dL Normal 0-199 [facility] Comment on above: Result Comment: ATP III Cholesterol classification is Desirable. Performed By: #### L IPID #### [facility] [address] [place] [address] Cholesterol in HDL [Mass/Vol] 34 mg/dL Low 40-59 [facility] Comment on above: Result Comment: ATP [...] CHD Performed By: #### L IPID #### [facility] [address] [place] [address] Cholesterol in LDL [Mass/Vol] 132 mg/dL Critically high 0-129 [facility] Comment on above: Result Comment: ATT III Classification is Borderline High. Performed By: #### L IPID #### [facility] [address] [place] [address] Triglyceride [Mass/Vol] 87 mg/dL Normal 0-150 [facility] Comment on above: Result Comment: ATP III Triglycerides Classification is Normal. Performed By: #### L IPID #### [facility] [address] [place] [address] History And Physical-Dictate don 11-20-2017 History And Physical-Dictated [facility] [address] [place] [address] NAME JOSSE WAYNE [facility] [id number] 1985 ADMIT 11/17/2017 HISTORY AND PHYSICAL IDENTIFYING INFORMATION Josse Wayne is a 32-year-old single, unemployed, female residing in [place], [place]. HISTORY OF PRESENT ILLNESS Patient was seen by her counselor at [facility] where the patient verbalized suicidal plan of taking overdose of sleeping pills. It is reported patient had left the therapy session abruptly to go home to take the overdose. Police were called and she was brought to the [facility]. The patient was tearful, depressed, had a [...] was not invited to her father's birthday libertarian. The patient claimed that she had been increasingly isolated and withdrawn since the of her mother in 2007 at the age of 47. The patient claimed that she wanted to go out with friends to the [facility] and one of the friends had told [...] since 2008. She was last hospitalized in 2016. Considering her deteriorating emotional state, suicidal plan, intent or thought, and previous history of serious suicidal attempt, and currently refusing to contract for her safety, she was admitted for further evaluation and treatment. PAST PSYCHIATRIC HISTORY The patient was hospitalized at [facility]. She was hospitalized 5 times at [facility] between June 2008 to June 2009. She had been treated at [facility] 3 times between December 2013 to August 2014. She had been also treated at [facility]. She was treated at [facility] in December 2016. She is currently attending counseling at [facility]. She is seeing a psychiatrist at [facility] in [place]. FAMILY HISTORY The patient's mother in 2007 at the age of 47. The patient did not have a close relationship with her father. The patient has 1 brother, 1 sister. The patient is single, never , has no children. SOCIAL HISTORY The patient had graduated from high school in a special education program. She had worked at [employer], a [employer] and a [employer]. She had last worked in 2003. The [...] Nose: No discharge noted. Mouth and pharynx: [place] mucosa. Neck: Supple. Respiratory: Clear to auscultation. [...] seizure precautions. MD Gayle BROWN 11/17/2017 19:55 [id number] T 11/17/2017 20:37 YKD/MODL Electronically Signed By Byron Arriola M.D. on 18 Nov 2017 16:23:40 T [facility] Protein mass conc [facility] [address] [place] [address] NAME JOSSE WAYNE [facility] [id number] 1985 DATE 11/20/2017 PROGRESS NOTE The patient [...] Further observation. MD Gayle BROWN 11/20/2017 18:50 [id number] 11/20/2017 19:44 YKD/MODL Electronically Signed By Byron Arriola M.D. on 23 Nov 2017 18:02:23 [facility] Lipid Panelon 11-17-2017 Cholesterol in HDL mass conc 36 mg/dL Low 40-59 [facility] Comment on above: Performed By: #### L IPID #### Unless otherwise noted, all testing performed by [place] [address] CLIA: [id number] Conveyor Installer: Gary Pedro M.D. Cholesterol in LDL mass conc 121 mg/dL Normal 10-150 [facility] Comment on above: Performed By: #### L IPID #### Unless otherwise noted, all testing performed by [place] [address] CLIA: [id number] Conveyor Installer: Gary Pedro M.D. Cholesterol in VLDL mass conc 29 mg/dL Normal 5-40 [facility] Comment on above: Performed By: #### L IPID #### Unless otherwise noted, all testing performed by [place] [address] CLIA: [id number] Conveyor Installer: Gary Pedro M.D. Cholesterol mass conc 186 mg/dL Normal 100-199 [facility] Comment on above: Performed By: #### L IPID #### Unless otherwise noted, all testing performed by [place] [address] CLIA: [id number] Conveyor Installer: Gary Pedro M.D. Cholesterol.total/Chol esterol in HDL mass ratio 5.1 {ratio} High 3.2-5.0 [facility] Comment on above: Result Comment: Alexis le Coronary Heart Disease Risk Factor (CHDRF): Average risk= 4.4 1/2 Average risk= 3.3 2 times Average risk= 7.1 Performed By: #### L IPID #### Unless otherwise noted, all testing performed by [place] [address] CLIA: [id number] Conveyor Installer: Gary Pedro M.D. Triglyceride mass conc 143 mg/dL High 25-120 [facility] Comment on above: Performed By: #### L IPID #### Unless otherwise noted, all testing performed by [place] [phone] CLIA: [id number] Conveyor Installer: Gary Pedro M.D. Urinalysis, Routineon 2017 Bilirubin,Urine Negative Normal NEG;NEGATI VE [facility] Comment on above: Performed By: #### U A #### Unless otherwise noted, all testing performed by [place] [address] CLIA: [id number] Conveyor Installer: Gary Pedro M.D. Blood,Urine Moderate Abnormal NEG;NEGATI VE [facility] Comment on above: Performed By: #### U A #### Unless otherwise noted, all testing performed by [place] [phone] CLIA: [id number] Conveyor Installer: Gary Pedro M.D. Character Nom (U) Clear Normal [facility] Comment on above: Performed By: #### U A #### Unless otherwise noted, all testing performed by [place] [phone] CLIA: [id number] Conveyor Installer: Gary Pedro M.D. Color Nom (U) Straw Normal [facility] Comment on above: Performed By: #### U A #### Unless otherwise noted, all testing performed by [place] [address] CLIA: [id number] Conveyor Installer: Gary Pedro M.D. Glucose Ql (U) Negative Normal NEG;NEGATI VE [facility] Comment on above: Performed By: #### U A #### Unless otherwise noted, all testing performed by [place] [address] CLIA: [id number] Conveyor Installer: Gary Pedro M.D. Ketone,Urine Negative Normal NEG;NEGATI VE [facility] Comment on above: Performed By: #### U A #### Unless otherwise noted, all testing performed by [place] [phone] CLIA: [id number] Conveyor Installer: Gary Pedro M.D. Leuk.Esterase,Urine Negative Normal Negative [facility] Comment on above: Performed By: #### U A #### Unless otherwise noted, all testing performed by [place] [phone] CLIA: [id number] Conveyor Installer: Gary Pedro M.D. Nitrite,Urine Negative Normal NEG;NEGATI VE [facility] Comment on above: Performed By: #### U A #### Unless otherwise noted, all testing performed by [place] [address] CLIA: [id number] Conveyor Installer: Gary Pedro M.D. pH (U) 7.0 [pH] Normal 4.5-8.0 [facility] Comment on above: Performed By: #### U A #### Unless otherwise noted, all testing performed by [facility] [place] [address] CLIA: [id number] Conveyor Installer: Gary Pedro M.D. Protein mass conc (U) Negative Normal NEG;NE GATI VE [facility] Comment on above: Performed By: #### U A #### Unless otherwise noted, all testing performed by [place] [address] CLIA: [id number] Conveyor Installer: Gary Pedro M.D. RBC LM.HPF #/area (Urine sed) /[HPF] Normal 0-5 [facility] Comment on above: Performed By: #### U A #### Unless otherwise noted, all testing performed by [place] [address] CLIA: [id number] Conveyor Installer: Gary Pedro M.D. Specific Nelson,Urine 1.005 Normal 1.003 -1.02 9 [facility] Comment on above: Performed By: #### U A #### Unless otherwise noted, all testing performed by [place] [address] CLIA: [id number] Conveyor Installer: Gary Pedro M.D. Squamous Epithelial < 1 Normal 0-40 [facility] Comment on above: Performed By: #### U A #### Unless otherwise noted, all testing performed by [place] [address] CLIA: [id number] Conveyor Installer: Gary Pedro M.D. Urobilinogen,Urine < 2.0 Normal <2 [facility] Comment on above: Performed By: #### U A #### Unless otherwise noted, all testing performed by [facility] [address] [place], [place] [address] CLIA: [id number] Conveyor Installer: Gary Pedro M.D. WBC LM.HPF #/area (Urine sed) /[HPF] Normal 0-5 [facility] Comment on above: Performed By: #### U A #### Unless otherwise noted, all testing performed by [address] [place] [address] CLIA: [id number] Conveyor Installer: Gary Pedro M.D. Lab Report: CT/NG [facility] BY PCR on 03-28-2017 Chlamydia trachomatis DNA [Presence] in Urine by Probe and target amplification method Negative Invalid Interpretation Code Negative [facility] Neisseria gonorrhoeae presence Negative Invalid Interpretation Code Negative [facility] Microbiology: Culture, Genit al Comprehensiveon 02-11-2017 CUV . Invalid Interpretation Code [facility] GE use only - for LinkLogic import when terms are not otherwise specified . Invalid Interpretation Code [facility] Microbiology: (P) Culture, G enital Comprehensiveon 02-08-2017 CUV . Invalid Interpretation Code [facility] Microbiology: (P) Culture, G enital Comprehensiveon 02-07-2017 CUV . Invalid Interpretation Code [facility] Lab Report: CT/NG [facility] BY PCR on 02-06-2017 Chlamydia trachomatis DNA [Presence] in Urine by Probe and target amplification method Negative Invalid Interpretation Code Negative [facility] Neisseria gonorrhoeae presence Negative Invalid Interpretation Code Negative [facility] Office Visit: Follow up Fema raon 02-06-2017 Documentation of current medications (procedure) Done Invalid Interpretation Code [facility] Tobacco smoking status NHIS Never Invalid Interpretation Code [facility] Tobacco smoking status AZIS Tobacco smoking status AZIS Invalid Interpretation Code [facility] Tobacco use CPHS Never smoker Invalid Interpretation Code [facility] Office Visit: Medication Fol low Upon 10-07-2016 Documentation of current medications (procedure) Done Invalid Interpretation Code [facility] Fall risk assessment No Invalid Interpretation Code [facility] Protein mass conc Done [facility] Tobacco smoking status NHIS Never [facility] Tobacco smoking status NHIS Never smoker [facility] Tobacco use CPHS Never smoker Invalid Interpretation Code [facility] Office Visit: Medication Fol low Upon 04-15-2016 General categories [interpretation] of Cervical or vaginal smear or scraping by Cyto stain Normal Invalid Interpretation Code [facility] Vital Signs Date Time Vital Sign Value Performing Clinician Faci lity 11-20-2024 08:28-0400 Body temperature 97.39 [degF] Treatment Wstr Work Phone: [facility] 11-20-2024 08:28-0400 Diastolic blood pressure 86 mm[Hg] Treatment Wstr Work Phone: [facility] 11-20-2024 08:28-0400 Heart rate 83 /min Treatment Wstr Work Phone: [facility] 11-20-2024 08:28-0400 SaO2% (BldA) [Mass fraction] 100 % Treatment Wstr Work Phone: [facility] 11-20-2024 08:28-0400 Systolic blood pressure 158 mm[Hg] Treatment Wstr Work Phone: [facility] 11-04-2024 06:57-0400 Body height 162.56 cm Peter Maya MD Work Phone: [facility] 11-04-2024 06:57-0400 Body mass index (BMI) [Ratio] 51.5 kg/m2 Peter Maya MD Work Phone: [facility] 11-04-2024 06:57-0400 Body temperature 98.8 [degF] Peter Maya MD Work Phone: [facility] 11-04-2024 06:57-0400 Body weight 136.07 kg Peter Maya MD Work Phone: [facility] 11-04-2024 06:57-0400 Diastolic blood pressure 80 mm[Hg] Peter Maya MD Work Phone: [facility] 11-04-2024 06:57-0400 Heart rate 99 /min Peter Maya MD Work Phone: [facility] 11-04-2024 06:57-0400 SaO2% (BldA) [Mass fraction] 98 % Peter Maya MD Work Phone: [facility] 11-04-2024 06:57-0400 Systolic blood pressure 134 mm[Hg] Peter Maya MD Work Phone: [facility] 09-12-2024 10:23-0400 Body height 162.6 cm Charlette Plotts [employer]CN[employer] Work Phone: [facility] 09-12-2024 10:23-0400 Body mass index (BMI) [Ratio] 52.66 kg/m2 Charlette Plotts [employer]CN[employer] Work Phone: [facility] 09-12-2024 10:23-0400 Body weight 139.16 kg Charlette Plotts [employer]CN[employer] Work Phone: [facility] 09-12-2024 10:23-0400 Diastolic blood pressure 86 mm[Hg] Charlette Plotts [employer]CN[employer] Work Phone: [facility] 09-12-2024 10:23-0400 Systolic blood pressure 128 mm[Hg] Charlette Plotts [employer]CN[employer] Work Phone: [facility] 09-03-2024 11:26-0400 Body mass index (BMI) [Ratio] 52.66 kg/m2 Ziyad Harrell MD Work Phone: [facility] 09-03-2024 11:26-0400 Body temperature 98.8 [degF] Ziyad Harrell MD Work Phone: [facility] 09-03-2024 11:26-0400 Body weight 139.16 kg Ziyad Harrell MD Work Phone: [facility] 09-03-2024 11:26-0400 Heart rate 91 /min Ziyad Harrell MD Work Phone: [facility] 09-03-2024 11:26-0400 Respiratory rate 14 /min Ziyad Harrell MD Work Phone: [facility] 09-03-2024 11:26-0400 SaO2% (BldA) [Mass fraction] 98 % Ziyad Harrell MD Work Phone: [facility] 06-03-2024 13:14-0400 Body mass index (BMI) [Ratio] 53.97 kg/m2 Ziyad Harrell MD Work Phone: [facility] 06-03-2024 13:14-0400 Body weight 142.61 kg Ziyad Harrell MD Work Phone: [facility] 06-03-2024 13:14-0400 Diastolic blood pressure 86 mm[Hg] Ziyad Harrell MD Work Phone: [facility] 06-03-2024 13:14-0400 Heart rate 100 /min Ziyad Harrell MD Work Phone: [facility] 06-03-2024 13:14-0400 Respiratory rate 16 /min Ziyad Harrell MD Work Phone: [facility] 06-03-2024 13:14-0400 SaO2% (BldA) [Mass fraction] 99 % Ziyad Harrell MD Work Phone: [facility] 06-03-2024 13:14-0400 Systolic blood pressure 136 mm[Hg] Ziyad Harrell MD Work Phone: [facility] 05-07-2024 08:34-0500 Body height 162.6 cm Demetrius Robertson APRN - SPECIAL EVENTS ASSISTANT Work Phone: [facility] [employer] 05-07-2024 08:34-0500 Body mass index (BMI) [Ratio] 54.61 kg/m2 Demetrius Robertson APRN - SPECIAL EVENTS ASSISTANT Work Phone: [facility] [employer] 05-07-2024 08:34-0500 Body weight 144.31 kg Demetrius Robertson FISHERIES DIVER - SPECIAL EVENTS ASSISTANT Work Phone: [facility] [employer] 05-07-2024 08:34-0500 Diastolic blood pressure 86 mm[Hg] Demetrius Robertson FISHERIES DIVER - SPECIAL EVENTS ASSISTANT Work Phone: [facility] [employer] 05-07-2024 08:34-0500 Heart rate 83 /min Demetrius Robertson FISHERIES DIVER - SPECIAL EVENTS ASSISTANT Work Phone: [facility] [employer] 05-07-2024 08:34-0500 Systolic blood pressure 128 mm[Hg] Demetrius Robertson FISHERIES DIVER - SPECIAL EVENTS ASSISTANT Work Phone: [facility] [employer] 03-25-2024 13:30-0500 Body height 162.6 cm Yessi Munoz MD Work Phone: [facility] [employer] 03-25-2024 13:30-0500 Body mass index (BMI) [Ratio] 55.44 kg/m2 Yessi Munoz MD Work Phone: [facility] [employer] 03-25-2024 13:30-0500 Body weight 146.51 kg Yessi Munoz MD Work Phone: [facility] [employer] 03-25-2024 13:30-0500 Diastolic blood pressure 84 mm[Hg] Yessi Munoz MD Work Phone: [facility] [employer] 03-25-2024 13:30-0500 Systolic blood pressure 130 mm[Hg] Yessi Munoz MD Work Phone: [facility] [employer] 03-08-2024 16:00-0500 Diastolic blood pressure 83 mm[Hg] Yessi Munoz MD Work Phone: [facility] [employer] 03-08-2024 16:00-0500 Heart rate 86 /min Yessi Munoz MD Work Phone: [facility] [employer] 03-08-2024 16:00-0500 Respiratory rate 16 /min Yessi Munoz MD Work Phone: [facility] [employer] 03-08-2024 16:00-0500 SaO2% (BldA) [Mass fraction] 100 % Yessi Munoz MD Work Phone: [facility] 03-08-2024 16:00-0500 Systolic blood pressure 135 mm[Hg] Yessi Munoz MD Work Phone: [facility] 03-08-2024 15:10-0500 Body temperature 97.3 [degF] Yessi Munoz MD Work Phone: [facility] [employer] 03-08-2024 13:40-0500 Body height 162.6 cm Yessi Munoz MD Work Phone: [facility] [employer] 03-08-2024 13:40-0500 Body mass index (BMI) [Ratio] 54.93 kg/m2 Yessi Munoz MD Work Phone: [facility] [employer] 03-08-2024 13:40-0500 Body weight 145.15 kg Yessi Munoz MD Work Phone: [facility] [employer] 01-03-2024 11:41-0400 Body height 162.6 cm Yessi Munoz MD Work Phone: [facility] [employer] 01-03-2024 11:41-0400 Body mass index (BMI) [Ratio] 59.73 kg/m2 Yessi Munoz MD Work Phone: [facility] [employer] 01-03-2024 11:41-0400 Body weight 157.85 kg Yessi Munoz MD Work Phone: [facility] [employer] 01-03-2024 11:41-0400 Diastolic blood pressure 86 mm[Hg] Yessi Munoz MD Work Phone: [facility] [employer] 01-03-2024 11:41-0400 Systolic blood pressure 138 mm[Hg] Yessi Munoz MD Work Phone: [facility] [employer] 06-21-2023 09:02-0400 Body height 162.6 cm Demetrius Vogel CNP Work Phone: [facility] [employer] 06-21-2023 09:02-0400 Body mass index (BMI) [Ratio] 55.34 kg/m2 Demetrius Robertson FISHERIES DIVER - SPECIAL EVENTS ASSISTANT Work Phone: [facility] [employer] 06-21-2023 09:02-0400 Body weight 146.24 kg Demetrius Robertson FISHERIES DIVER - SPECIAL EVENTS ASSISTANT Work Phone: [facility] [employer] 06-21-2023 09:02-0400 Diastolic blood pressure 79 mm[Hg] Demetrius Robertson FISHERIES DIVER - SPECIAL EVENTS ASSISTANT Work Phone: [facility] [facility] [employer] 06-21-2023 09:02-0400 Heart rate 89 /min Demetrius Robertson FISHERIES DIVER - SPECIAL EVENTS ASSISTANT Work Phone: [facility] 06-21-2023 09:02-0400 Systolic blood pressure 118 mm[Hg] Demetrius Robertson FISHERIES DIVER - SPECIAL EVENTS ASSISTANT Work Phone: [facility] 05-10-2023 08:50-0500 Body temperature 97.81 [degF] Surjit Tidwell MD Work Phone: [facility] 05-10-2023 08:50-0500 Body weight 145.06 kg Surjit Tidwell MD Work Phone: [facility] 05-10-2023 08:50-0500 Diastolic blood pressure 88 mm[Hg] Surjit Tidwell MD Work Phone: [facility] 05-10-2023 08:50-0500 Heart rate 88 /min Surjit Tidwell MD Work Phone: [facility] 05-10-2023 08:50-0500 Respiratory rate 21 /min Surjit Tidwell MD Work Phone: [facility] 05-10-2023 08:50-0500 SaO2% (BldA) [Mass fraction] 99 % Surjit Tidwell MD Work Phone: [facility] 05-10-2023 08:50-0500 Systolic blood pressure 124 mm[Hg] Surjit Tidwell MD Work Phone: [facility] 04-26-2023 16:26-0500 Body temperature 97.9 [degF] Krislyn Aberegg PA Work Phone: [facility] 04-26-2023 16:26-0500 Body weight 144.24 kg Krislyn Aberegg PA Work Phone: [facility] 04-26-2023 16:26-0500 Diastolic blood pressure 82 mm[Hg] Krislyn Aberegg PA Work Phone: [facility] 04-26-2023 16:26-0500 Heart rate 76 /min Krislyn Aberegg PA Work Phone: [facility] 04-26-2023 16:26-0500 Respiratory rate 18 /min Krislyn Aberegg PA Work Phone: [facility] 04-26-2023 16:26-0500 SaO2% (BldA) [Mass fraction] 98 % Krislyn Aberegg PA Work Phone: [facility] 04-26-2023 16:26-0500 Systolic blood pressure 138 mm[Hg] Krislyn Aberegg PA Work Phone: [facility] 02-07-2023 00:09-0500 Diastolic blood pressure 85 mm[Hg] No Primary Care Physician [facility] 02-07-2023 00:09-0500 Heart rate 85 /min No Primary Care Physician [facility] 02-07-2023 00:09-0500 Respiratory rate 14 /min No Primary Care Physician [facility] 02-07-2023 00:09-0500 SaO2% (BldA) [Mass fraction] 99 % No Primary Care Physician [facility] 02-07-2023 00:09-0500 Systolic blood pressure 160 mm[Hg] No Primary Care Physician [facility] 02-06-2023 20:47-0500 Body height 162.56 cm No Primary Care Physician [facility] 02-06-2023 20:47-0500 Body mass index (BMI) [Ratio] 53.1 kg/m2 No Primary Care Physician [facility] 02-06-2023 20:47-0500 Body temperature 97.8 [degF] No Primary Care Physician [facility] 02-06-2023 20:47-0500 Body weight 140.61 kg No Primary Care Physician [facility] 12-15-2022 17:11-0400 Body mass index (BMI) [Ratio] 53.9 kg/m2 No Primary Care Physician [facility] 12-15-2022 17:11-0400 Body temperature 98.4 [degF] No Primary Care Physician [facility] 12-15-2022 17:11-0400 Body weight 142.65 kg No Primary Care Physician [facility] 12-15-2022 17:11-0400 Diastolic blood pressure 80 mm[Hg] No Primary Care Physician [facility] 12-15-2022 17:11-0400 Heart rate 70 /min No Primary Care Physician [facility] 12-15-2022 17:11-0400 Respiratory rate 18 /min No Primary Care Physician [facility] 12-15-2022 17:11-0400 SaO2% (BldA) [Mass fraction] 97 % No Primary Care Physician [facility] 12-15-2022 17:11-0400 Systolic blood pressure 150 mm[Hg] No Primary Care Physician [facility] 07-08-2022 13:22-0400 Body height 162.6 cm Demetrius Robertson FISHERIES DIVER - SPECIAL EVENTS ASSISTANT Work Phone: [facility] 07-08-2022 13:22-0400 Body mass index (BMI) [Ratio] 55 kg/m2 Demetrius Robertson FISHERIES DIVER - SPECIAL EVENTS ASSISTANT Work Phone: [facility] 07-08-2022 13:22-0400 Body weight 145.33 kg Demetrius Robertson FISHERIES DIVER - SPECIAL EVENTS ASSISTANT Work Phone: [facility] 07-08-2022 13:22-0400 Diastolic blood pressure 96 mm[Hg] Demetrius Robertson FISHERIES DIVER - SPECIAL EVENTS ASSISTANT Work Phone: [facility] 07-08-2022 13:22-0400 Heart rate 71 /min Demetrius Ailyn GAMEZ - SPECIAL EVENTS ASSISTANT Work Phone: [facility] 07-08-2022 13:22-0400 Systolic blood pressure 132 mm[Hg] Demetrius Ailyn GAMEZ - SPECIAL EVENTS ASSISTANT Work Phone: [facility] 06-07-2022 14:02-0400 Body temperature 98.49 [degF] Senait Gandhi APRN.SPECIAL EVENTS ASSISTANT Work Phone: [facility] 06-07-2022 14:02-0400 Body weight 145.15 kg Senait Gandhi APRN.SPECIAL EVENTS ASSISTANT Work Phone: [facility] 06-07-2022 14:02-0400 Diastolic blood pressure 82 mm[Hg] Senait Gandhi APRN.SPECIAL EVENTS ASSISTANT Work Phone: [facility] 06-07-2022 14:02-0400 Heart rate 94 /min Senait Gandhi APRN.SPECIAL EVENTS ASSISTANT Work Phone: [facility] 06-07-2022 14:02-0400 Respiratory rate 18 /min Senait Gandhi APRN.SPECIAL EVENTS ASSISTANT Work Phone: [facility] 06-07-2022 14:02-0400 SaO2% (BldA) [Mass fraction] 98 % Senait Gandhi APRN.SPECIAL EVENTS ASSISTANT Work Phone: [facility] 06-07-2022 14:02-0400 Systolic blood pressure 124 mm[Hg] Senait Gandhi APRN.SPECIAL EVENTS ASSISTANT Work Phone: [facility] 03-02-2022 14:35-0500 Body height 162.6 cm Gabe Pierre APRN.SPECIAL EVENTS ASSISTANT Work Phone: [facility] 03-02-2022 14:35-0500 Body temperature 98.2 [degF] Gabe Pierre APRN.SPECIAL EVENTS ASSISTANT Work Phone: [facility] 03-02-2022 14:35-0500 Body weight 139.71 kg Gabe Pierre APRN.SPECIAL EVENTS ASSISTANT Work Phone: [facility] 03-02-2022 14:35-0500 Diastolic blood pressure 78 mm[Hg] Gabe Matthew 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 Work Phone: [facility] 03-02-2022 14:35-0500 Heart rate 82 /min Gabe Matthew 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 Work Phone: [facility] 03-02-2022 14:35-0500 Respiratory rate 24 /min Gabe Matthew 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 Work Phone: [facility] 03-02-2022 14:35-0500 SaO2% (BldA) [Mass fraction] 99 % Gabe Matthew 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 Work Phone: [facility] 03-02-2022 14:35-0500 Systolic blood pressure 110 mm[Hg] Gabe Matthew FISHERIES DIVER.[facility] Work Phone: [facility] 01-10-2022 01:07-0400 Diastolic blood pressure 60 mm[Hg] [facility] Work Phone: 01-10-2022 01:07-0400 Heart rate 110 /min [facility] Work Phone: 01-10-2022 01:07-0400 Respiratory rate 18 /min [facility] Work Phone: 01-10-2022 01:07-0400 SaO2% (BldA) [Mass fraction] 99 % [facility] Work Phone: 01-10-2022 01:07-0400 Systolic blood pressure 140 mm[Hg] [facility] Work Phone: 01-09-2022 22:24-0400 Body height 162.56 cm [facility] Work Phone: 01-09-2022 22:24-0400 Body mass index (BMI) [Ratio] 53 kg/m2 [facility] Work Phone: 01-09-2022 22:24-0400 Body temperature 97.4 [degF] [facility] Work Phone: 01-09-2022 22:24-0400 Body weight 140.1 kg [facility] Work Phone: 11-03-2021 21:50-0400 Body height 162.56 cm [facility] Work Phone: 11-03-2021 21:50-0400 Body mass index (BMI) [Ratio] 54.7 kg/m2 [facility] Work Phone: 11-03-2021 21:50-0400 Body temperature 97.7 [degF] [facility] Work Phone: 11-03-2021 21:50-0400 Body weight 144.7 kg [facility] Work Phone: 11-03-2021 21:50-0400 Diastolic blood pressure 95 mm[Hg] [facility] Work Phone: 11-03-2021 21:50-0400 Heart rate 93 /min [facility] Work Phone: 11-03-2021 21:50-0400 Respiratory rate 15 /min [facility] Work Phone: 11-03-2021 21:50-0400 SaO2% (BldA) [Mass fraction] 99 % [facility] Work Phone: 11-03-2021 21:50-0400 Systolic blood pressure 179 mm[Hg] [facility] Work Phone: 10-19-2021 06:05-0400 Body temperature 97.8 [degF] [facility] Work Phone: 10-19-2021 06:05-0400 Diastolic blood pressure 80 mm[Hg] [facility] Work Phone: 10-19-2021 06:05-0400 Heart rate 75 /min [facility] Work Phone: 10-19-2021 06:05-0400 Respiratory rate 19 /min [facility] Work Phone: 10-19-2021 06:05-0400 SaO2% (BldA) [Mass fraction] 98 % [facility] Work Phone: 10-19-2021 06:05-0400 Systolic blood pressure 136 mm[Hg] [facility] Work Phone: 10-18-2021 14:55-0400 Body height 162.56 cm [facility] Work Phone: 10-18-2021 14:55-0400 Body mass index (BMI) [Ratio] 50.8 kg/m2 [facility] Work Phone: 10-18-2021 14:55-0400 Body weight 134.5 kg [facility] Work Phone: 08-02-2021 21:36-0400 Body height 162.56 cm [facility] Work Phone: 08-02-2021 21:36-0400 Body mass index (BMI) [Ratio] 52 kg/m2 [facility] Work Phone: 08-02-2021 21:36-0400 Body temperature 98.7 [degF] [facility] Work Phone: 08-02-2021 21:36-0400 Body weight 137.3 kg [facility] Work Phone: 08-02-2021 21:36-0400 Diastolic blood pressure 91 mm[Hg] [facility] Work Phone: 08-02-2021 21:36-0400 Heart rate 91 /min [facility] Work Phone: 08-02-2021 21:36-0400 Respiratory rate 20 /min [facility] Work Phone: 08-02-2021 21:36-0400 SaO2% (BldA) [Mass fraction] 97 % [facility] Work Phone: 08-02-2021 21:36-0400 Systolic blood pressure 160 mm[Hg] [facility] Work Phone: 07-09-2021 19:23-0400 Body temperature 97.81 [degF] Bela Praisler-Wood 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 Work Phone: [facility] 07-09-2021 19:23-0400 Body weight 137.08 kg Bela Praisler-Wood 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 Work Phone: [facility] 07-09-2021 19:23-0400 Diastolic blood pressure 82 mm[Hg] Bela Praisler-Wood 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 Work Phone: [facility] 07-09-2021 19:23-0400 Heart rate 101 /min Bela Praisler-Wood 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 Work Phone: [facility] 07-09-2021 19:23-0400 Respiratory rate 16 /min Bela Praisler-Wood 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 Work Phone: [facility] 07-09-2021 19:23-0400 SaO2% (BldA) [Mass fraction] 99 % Bela Praisler-Wood 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 Work Phone: [facility] 07-09-2021 19:23-0400 Systolic blood pressure 128 mm[Hg] Bela Praisler-Wood 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 Work Phone: [facility] 02-06-2017 10:16-0500 BMI (Body Mass Index) 53.49 kg/m2 Sheyla Foster MD [facility] 02-06-2017 10:16-0500 BP Diastolic 79 mm[Hg] Sheyla Foster MD [facility] 02-06-2017 10:16-0500 BP Systolic 123 mm[Hg] Sheyla Foster MD [facility] 02-06-2017 10:16-0500 Height 160.02 cm Sheyla Foster MD [facility] 02-06-2017 10:16-0500 Weight 136.98 kg Sheyla Foster MD [facility] 02-06-2017 10:16-0500 Weight 136.99 kg Sheyla Foster MD [facility] 10-07-2016 14:26-0400 BMI (Body Mass Index) 54.2 kg/m2 Sheyla Foster MD [facility] 10-07-2016 14:26-0400 Body Temperature 98.2 [degF] Sheyla Foster MD [facility] 10-07-2016 14:26-0400 BP Diastolic 87 mm[Hg] Sheyla Foster MD [facility] 10-07-2016 14:26-0400 BP Systolic 131 mm[Hg] Sheyla Foster MD [facility] 10-07-2016 14:26-0400 Height 160.02 cm Sheyla Foster MD [facility] 10-07-2016 14:26-0400 Pulse (Heart Rate) 88 /min Sheyla Foster MD [facility] 10-07-2016 14:26-0400 Respiratory Rate 17 /min Sheyla Foster MD [facility] 10-07-2016 14:26-0400 Weight 138.8 kg Sheyla Foster MD [facility] 07-04-2013 13:54-0400 BSA (Body Surface Area) 2.24 m2 Sheyla Foster MD [facility] Encounters Encounter Date Encounter Type Care Provider Facility Start: 11-20-2024 End: 11-20-2024 ambulatory Treatment Rm 17 Miguel [facility] Work Phone: Hematology/Oncology Comment on above: PCOS (polycystic ova maddison syndrome) (Primary Dx) Start: 11-12-2024 End: 11-12-2024 Telephone encounter Yessi Munoz MD Work Phone: [facility] Obstetrics and Gynecology [facility] Comment on above: Surgery Scheduling ( Patient is calling back to reschedule Surgery. Please call her back to discuss. Thank you.) Start: 11-06-2024 End: 11-08-2024 Telephone encounter Ziyad Harrell MD Work Phone: Endocrinology Comment on above: Patient Question Start: 11-04-2024 End: 11-04-2024 Patient encounter procedure Ronnie Holbrook [facility] Work Phone: Start: 11-04-2024 End: 11-04-2024 ambulatory Peter Maya MD Work Phone: [facility] Start: 09-26-2024 End: 09-26-2024 Telephone encounter Ricco Gandhi MD Work Phone: OB/Gynecology Comment on above: Appointment (Disgrun tled Patient) Start: 09-16-2024 End: 11-16-2024 Follow-up encounter Charlette Bryant APRN.CNM Work Phone: OB/Gynecology Start: 09-12-2024 End: 09-12-2024 ambulatory [facility] Facility:[facility] Start: 09-12-2024 End: 09-12-2024 Patient encounter procedure Charlette Bryant APRN.CNM Work Phone: OB/Gynecology Comment on above: Abnormal uterine ble eding (AUB) (Primary Dx); Menorrhagia with irregular cycle; Endometrial hyperplasia Start: 09-12-2024 End: 09-12-2024 ambulatory CHARLETTE BRYANT Facility:[facility] Start: 09-03-2024 End: 09-03-2024 ambulatory ZIYAD HARRELL Facility:[facility] Start: 09-03-2024 End: 09-03-2024 Patient encounter procedure Ziyad Harrell MD Work Phone: Endocrinology Comment on above: High serum 17-hydrox yprogesterone (Primary Dx) Start: 09-03-2024 End: 09-03-2024 ambulatory Peter Maya MD Work Phone: -[facility]atory [facility] Start: 09-03-2024 End: 09-03-2024 Patient encounter procedure Rafia Bianchi NP-C -Laboratory [facility] Start: 09-03-2024 End: 09-03-2024 ambulatory Rafia Bianchi Facility:[facility] Start: 08-31-2024 End: 08-31-2024 ambulatory Peter Maya MD Work Phone: [facility] Work Phone: Start: 08-31-2024 End: 08-31-2024 Patient encounter procedure Jones Valenzuela STUD SETTER-C -Laboratory Future Work Phone: Start: 08-31-2024 End: 08-31-[address] [facility] Facility:[facility] Start: 08-06-2024 End: 08-06-2024 ambulatory ZIYAD HARRELL Facility:[facility] Start: 06-13-2024 ambulatory YESSI MUNOZ [facility] Start: 06-13-2024 End: 06-15-2024 Evaluation and management of inpatient CHALON LJ [facility] Start: 06-13-2024 End: 06-13-2024 ambulatory YESSI MUNOZ [facility] Start: 06-12-2024 End: 06-12-2024 Telephone encounter Yessi Munoz MD Work Phone: [facility] Obstetrics and Gynecology - [place] Comment on above: Surgery Scheduling Start: 06-03-2024 End: 06-03-2024 ambulatory ZIYAD HARRELL Facility:[facility] Start: 06-03-2024 End: 06-03-2024 Patient encounter procedure Ziyad Harrell MD Work Phone: Endocrinology Comment on above: Class 3 severe obesi ty due to excess calories without serious comorbidity with body mass index (BMI) of 50.0 to 59.9 in adult (HCC) (Primary Dx); PCOS (polycystic ovarian syndrome) Start: 05-07-2024 End: 05-07-2024 Office outpatient visit 15 minutes Demetrius Vogel CNP Work Phone: [facility] [place] Comment on above: 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 for endocrinology phone number is [phone]./Please send referral this is closer to her home//Please advise) Other (Pt calling ne eds referral sent to [facility] for endocrinology phone number is [phone]./Please send referral this is closer to her home//Please advise); Referral (Patient states she could not get into [place] and would like the order sent to Dr. Ziyad Harrell at [address] [facility] [phone]) Start: 03-28-2024 End: 03-28-2024 Telephone encounter Elton Cherry MD Work Phone: [facility] Comment on above: Other (Referral ) Start: 03-25-2024 End: 03-25-2024 Office outpatient visit 25 minutes Yessi Munoz MD Work Phone: [facility] Obstetrics and Gynecology [facility] Comment on above: PCOS (polycystic ova maddison syndrome) (Primary Dx); Endometrial hyperplasia Start: 03-25-2024 End: 03-25-2024 ambulatory YESSI MUNOZ [facility] Start: 03-14-2024 End: 03-14-2024 Telephone encounter Demetrius Vogel CNP Work Phone: [facility] Neuroscience [facility] Start: 03-11-2024 End: 03-13-2024 Refill Yessi Munoz MD Work Phone: [facility] PRE PROCEDURE Start: 03-08-2024 End: 03-08-2024 ambulatory Yessi Munoz MD Work Phone: [facility] PROCEDURE Start: 03-08-2024 End: 03-08-2024 Subsequent hospital visit by physician Yessi Munoz MD Work Phone: [facility] MAIN OR Comment on above: Excessive bleeding i n the premenopausal period Start: 03-04-2024 End: 03-04-2024 ambulatory YESSI MUNOZ [facility] Start: 02-26-2024 End: 02-26-2024 Telephone encounter Yessi Munoz MD Work Phone: [facility] Gynecologic Oncology - [place] Comment on above: Other (Surgery sched [facility] office) Start: 02-05-2024 End: 02-06-2024 Orders Only Yessi Munoz MD Work Phone: [facility] PRE PROCEDURE Start: 01-24-2024 End: 01-25-2024 ambulatory Jose Villagomez RN [facility] Clinical Communication Start: 01-24-2024 End: 01-25-2024 Patient encounter procedure Jose Villagomez RN [facility] [place] Clinical Communication Start: 01-23-2024 End: 01-23-2024 ambulatory YESSI MUNOZ [facility] Start: 01-18-2024 End: 01-18-2024 Telephone encounter Yessi Munoz MD Work Phone: [facility] Comment on [facility]: Results Start: 01-08-2024 End: 01-08-2024 ambulatory Katja Briggs RN [facility] Clinical Communication Start: 01-08-2024 End: 01-08-2024 Patient encounter procedure Katja Briggs RN [facility] [place] Clinical Communication Start: 01-05-2024 End: 01-05-2024 ambulatory QUYNH MALLOY Facility:[facility] Start: 01-03-2024 End: 01-03-2024 Office outpatient visit 25 minutes Yessi Munoz MD Work Phone: [facility] Comment on above: Excessive bleeding i n premenopausal period (Primary Dx) Start: 01-03-2024 End: 01-03-2024 ambulatory YESSI MUNOZ [facility] Start: 12-14-2023 End: 12-14-2023 ambulatory Chalon Lj Facility:[facility] Start: 09-27-2023 Telephone encounter Anthony betts DO Work Phone: [facility] Comment on above: Insurance Authorizat ion Start: 09-08-2023 Telephone encounter Anthony betts Work Phone: [facility] Comment on [...] type (Primary Dx) Start: 08-25-2023 End: 08-25-2023 Subsequent hospital visit by physician Lois [facility] Gray Work Phone: Radiology Comment on above: Right knee pain, uns pecified chronicity [M25.561] Start: 08-15-2023 Orders Only Anthony Araujo O Work Phone: Orthopaedics Comment on above: Right knee pain, uns pecified chronicity (Primary Dx) Start: 06-21-2023 End: 06-21-2023 Office outpatient visit 15 minutes Demetrius Robertson APRN - SPECIAL EVENTS ASSISTANT Work Phone: [facility] [employer] [facility] Neuroscience Comment on above: 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, not intractable, without status epilepticus (HCC) (Primary Dx) Start: 05-10-2023 End: 05-10-2023 Patient encounter procedure Surjit Tidwell MD Work Phone: [facility] Comment on above: Sore throat (Primary Dx); Papule of skin Start: 04-26-2023 End: 04-26-2023 Patient encounter procedure Jose MUELLER Work Phone: [facility] Comment on above: Sinobronchitis (Prim teresa Dx); Acute otitis media, left Start: 04-17-2023 Refill Demetrius sanchez FISHERIES DIVER - SPECIAL EVENTS ASSISTANT Work Phone: [facility] Neuroscience Start: 02-14-2023 ambulatory Aubrie Rich [facility] Comment on above: Population Health Na vigation Outreach ([place] Attribution Member- Chart review) Start: 02-06-2023 End: 02-07-2023 Emergency department patient visit No Primary Care Physician [facility]-Emergency Department Work Phone: Start: 12-15-2022 End: 12-15-2022 Patient encounter procedure No Primary Care Physician [facility] Work Phone: Start: 11-29-2022 Refill Demetrius sanchez FISHERIES DIVER - SPECIAL EVENTS ASSISTANT Work Phone: [facility]science Start: 09-05-2022 ambulatory Gabe chiang 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 Work Phone: [facility] Start: 07-22-2022 ambulatory Gabe Todd el 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 Work Phone: [facility] Comment on above: Allied Health Visit (Medication Adherence Outreach/) Start: 07-13-2022 Telephone encounter Anderson soni MD Work Phone: [facility] Comment on above: Lab work ; Release o f Information Start: 07-08-2022 End: 07-08-2022 Office outpatient visit 15 minutes Demetrius Robertson FISHERIES DIVER - SPECIAL EVENTS ASSISTANT Work Phone: [facility] Comment on above: 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, not intractable, without status epilepticus (HCC) (Primary Dx) Start: 07-01-2022 ambulatory Gabe chiang 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 Work Phone: [facility] Comment on above: Allied Health Visit (Medication Adherence Outreach/) Start: 06-07-2022 End: 06-07-2022 Patient encounter procedure Senait Gandhi 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 Work Phone: [facility] Comment on above: Rhinosinusitis (Prim teresa Dx) Start: 03-25-2022 Telephone encounter Yessi Munoz MD Work Phone: [facility] Medical [facility] [place] [employer] Comment on above: Cancelled Appointmen t (03.30.22 / insurance issues) Start: 03-02-2022 Encounter for genera l adult medical examination without abnormal findings GABE Krzysztof PIERRE [facility] Start: 03-02-2022 End: 03-02-2022 ambulatory GABE PIERRE Facility:[facility] Start: 03-02-2022 End: 03-02-2022 Patient encounter procedure Gabe Pierre 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 [facility] Phone[facility] Comment on above: Encounter for medica l examination to establish care (Primary Dx); Rash of face; Moderate episode of recurrent major depressive disorder (HCC); PCOS (polycystic ovarian syndrome); Generalized tonic clonic epilepsy (HCC) Start: 03-02-2022 End: 03-02-2022 Patient encounter status Gabe Pierre 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 Work Phone: [facility] Start: 02-28-2022 Telephone encounter Gabe Pierre 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 Work Phone: [facility] Comment on above: Appointment Start: 02-24-2022 Telephone encounter Gabe Pierre 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 Work Phone: [facility] Comment on above: Patient Question Start: 01-21-2022 End: 01-21-2022 Patient encounter procedure Anthony Garvin DO Work Phone: [facility] [place] Comment on above: Contusion of right l ower extremity, subsequent encounter (Primary Dx); Prepatellar bursitis, right knee Start: 01-09-2022 End: 01-10-2022 Emergency department patient visit [facility] Start: 11-03-2021 End: 11-03-2021 Emergency department patient visit [facility] Start: 10-18-2021 End: 10-19-2021 Emergency department patient visit [facility] Start: 09-27-2021 Telephone encounter Katerine zazueta 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 Work Phone: OB/Gynecology Comment on above: Results Start: 08-05-2021 ambulatory Soha Mathew MA [facility] Comment on above: Population Health Na vigation Outreach ([place] Attribution Care Gaps) Start: 08-02-2021 End: 08-02-2021 Emergency department patient visit [facility] Start: 07-09-2021 End: 07-09-2021 Patient encounter procedure Bela StephenJack [facility] Work Phone: [facility] Comment on above: TMJ pain [...] 10-20-2020 Subsequent hospital visit by physician Xr [facility] Work Phone: Radiology Comment on above: Right knee injury, i nitial encounter [S89.91XA] Start: 11-17-2017 End: 11-23-2017 Evaluation and management of inpatient [facility] Facility:[facility] Date Procedure Procedure Detail Performing [...] stain Yessi Munoz MD Work Phone: Start: 10-13-2021 Gonadotropin follicle stimulating hormone Yessi Munoz MD [...] Phone: Start: 02-06-2017 End: 02-06-2017 Trichomonas vaginalis; William simmons MD Work Phone: Start: 10-07-2016 End: [...] for Adults (1 - 1-dose 75+ series) [facility] Start: 2043 RSV Immunization aged 60 or older (1 - 1-dose 60+ series) RSV Immunization aged 60 or older (1 - 1-dose 60+ series) [facility] Start: 06-15-2033 Zoster Vaccines (1 of 2) Zoster Vaccines (1 of 2) [facility] Start: 01-30-2028 DTaP/Tdap/Td vaccine (3 - Td or Tdap) DTaP/Tdap/Td vaccine (3 - Td or Tdap) [facility] Work Phone: Start: 01-30-2028 DTaP/Tdap/Td Vaccines (3 - Td or Tdap) DTaP/Tdap/Td Vaccines (3 - Td or Tdap) [facility] Start: 01-30-2028 Urine microalbumin profile [facility] Start: 10-11-2026 HPV TESTING HPV TESTING [facility] Start: 10-11-2026 PAP TESTING PAP TESTING [facility] Start: 10-11-2026 Screening for malignant neoplasm of cervix [facility] Start: 05-07-2025 End: 05-07-2025 Patient encounter procedure [facility] Start: 01-16-2025 End: 01-16-2025 Patient encounter procedure 01/16/2025 10:00 AM EST Office Visit Endocrinology [address] [place] [address] Ziyad Harrell MD [address] [place] [address] Follow Up after ACTH Test Endocrinology Comment on above: Follow Up after ACTH Test Start: 12-22-2024 Screening for malignant neoplasm of cervix [facility] Start: 12-13-2024 Depression Monitoring Depression Monitoring [facility] Start: 12-05-2024 End: 12-05-2024 Patient encounter procedure 12/05/2024 9:30 AM EDT Office Visit [facility] Obstetrics [facility] [address] [place] [address] Yessi Munoz MD [address] [place] [address] [facility] Start: 11-20-2024 End: 11-20-2024 ambulatory Christopher Gavinwn [facility] Comment on above: LAB 2ND Start: 11-12-2024 End: 11-12-2024 Patient encounter procedure 11/12/2024 11:40 AM EDT Office Visit Endocrinology [address] [place] [address] Ziyad Harrell MD [address] [place] [address] 2 month f/u-PCOS Endocrinology Comment on above: 2 month f/u-PCOS Start: 11-11-2024 COVID-19 Vaccine ( season) COVID-19 Vaccine ( season) [facility] Start: 11-11-2024 Influenza vaccination [facility] Start: 09-27-2024 End: 09-27-2024 Patient encounter procedure 09/27/2024 1:40 PM EDT Office Visit OB/Gynecology [address] [place] [address] Ricco Gandhi MD [address] [place] [address] [facility] OB/Gynecology Comment on above: [facility] Start: 09-20-2024 End: 09-20-2024 Patient encounter procedure 09/20/2024 10:45 AM EDT Appointment Radiology [address] [place] [address] Abnormal uterine bleeding (AUB) [N93.9] Radiology Comment on above: Abnormal uterine bleeding (AUB) [N93.9] Start: 09-12-2024 End: 12-12-2024 Cancer Ag 125 [Units/volume] in Serum or Plasma [facility] Comment on above: Expected: 09/12/2024, Expires: Start: 09-12-2024 End: 09-12-2024 Patient encounter procedure 09/12/2024 10:00 AM EDT Office Visit OB/Gynecology [address] [place] [address] Charlette Bryant APRN.CN [address] [place] [address] Menorrhagia OB/Gynecology Comment on above: Menorrhagia Start: 09-03-2024 End: 12-03-2024 17-Hydroxyprogesterone [Mass/volume] in Serum or Plasma HYDROXYPROGESTERONE-17 Lab Routine 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 Expected: 09/03/2024, Expires: 12/03/2024 [facility] Comment on above: Expected: 09/03/2024, Expires: Start: 09-03-2024 End: 12-03-2024 ACTH STIMULATION,2 TIME POINTS ACTH STIMULATION,2 TIME POINTS Lab Routine 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 Expected: 09/03/2024, Expires: 12/03/2024 [facility] Work Phone: Comment on above: Expected: 09/03/2024, Expires: Start: 09-03-2024 End: 12-03-2024 Cortisol [Mass/volume] in Serum or Plasma --post dose dexamethasone CORTISOL SUPRES POST Lab Routine Class 3 severe obesity due to excess calories without serious comorbidity with body mass index (BMI) of 50.0 to 59.9 in adult (HCC) PCOS (polycystic ovarian syndrome) Expected: 09/03/2024, Expires: 12/03/2024 [facility] Comment on above: Expected: 09/03/2024, Expires: Start: 09-03-2024 End: 12-03-2024 DEXAMETHASONE DEXAMETHASONE Lab Routine Class 3 severe obesity due to excess calories without serious comorbidity with body mass index (BMI) of 50.0 to 59.9 in adult (HCC) PCOS (polycystic ovarian syndrome) Expected: 09/03/2024, Expires: 12/03/2024 [facility] Comment on above: Expected: 09/03/2024, Expires: Start: 09-03-2024 End: 09-03-2024 Patient encounter procedure 09/03/2024 11:20 AM EDT Office Visit Endocrinology [address] [place], [place] [phone] Ziyad Harrell MD [address] [place], [place] [phone] 3 MTH F/U Endocrinology Comment on above: 3 MTH F/U Start: 08-02-2024 End: 11-01-2024 17-Hydroxyprogesterone [Mass/volume] in Serum or Plasma HYDROXYPROGESTERONE-17 Lab Routine Class 3 severe obesity due to excess calories without serious comorbidity with body mass index (BMI) of 50.0 to 59.9 in adult (HCC) PCOS (polycystic ovarian syndrome) Expected: 08/02/2024, Expires: 11/01/2024 [facility] Work Phone: Comment on above: Expected: 08/02/2024, Expires: Start: 08-02-2024 End: 11-01-2024 DHEA-S BLD DHEA-S BLD Lab Routine Class 3 severe obesity due to excess calories without serious comorbidity with body mass index (BMI) of 50.0 to 59.9 in adult (HCC) PCOS (polycystic ovarian syndrome) Expected: 08/02/2024, Expires: 11/01/2024 [facility] Comment on above: Expected: 08/02/2024, Expires: Start: 08-02-2024 End: 11-01-2024 Estradiol (E2) [Mass/volume] in Serum or Plasma ESTRADIOL-17B BLD Lab Routine Class 3 severe obesity due to excess calories without serious comorbidity with body mass index (BMI) of 50.0 to 59.9 in adult ([facility]) PCOS (polycystic ovarian syndrome) Expected: 08/02/2024, Expires: 11/01/2024 [facility] Comment on above: Expected: 08/02/2024, Expires: Start: 08-02-2024 End: 11-01-2024 Follitropin [Units/volume] in Serum or Plasma FOLLICLE STIMULATING HORMONE Lab Routine Class 3 severe obesity due to excess calories without serious comorbidity with body mass index (BMI) of 50.0 to 59.9 in adult ([facility]) PCOS (polycystic ovarian syndrome) Expected: 08/02/2024, Expires: 11/01/2024 [facility] Comment on above: Expected: 08/02/2024, Expires: Start: 08-02-2024 End: 11-01-2024 Lutropin [Units/volume] in Serum or Plasma LUTEINIZING HORMONE Lab Routine Class 3 severe obesity due to excess calories without serious comorbidity with body mass index (BMI) of 50.0 to 59.9 in adult ([facility]) PCOS (polycystic ovarian syndrome) Expected: 08/02/2024, Expires: 11/01/2024 [facility] Comment on above: Expected: 08/02/2024, Expires: Start: 08-02-2024 End: 11-01-2024 Prolactin [Mass/volume] in Serum or Plasma PROLACTIN Lab Routine Class 3 severe obesity due to excess calories without serious comorbidity with body mass index (BMI) of 50.0 to 59.9 in adult (HCC) PCOS (polycystic ovarian syndrome) Expected: 08/02/2024, Expires: 11/01/2024 [facility] Comment on above: Expected: 08/02/2024, Expires: Start: [...] (polycystic ovarian syndrome) Expected: 08/02/2024, Expires: 11/01/2024 [facility] Comment on above: Expected: 08/02/2024, Expires: Start: 08-02-2024 End: 11-01-2024 Thyrotropin [Units/volume] in Serum or Plasma THYROID STIMULATING HORMONE Lab Routine Class 3 severe obesity due to excess calories without serious comorbidity with body mass index (BMI) of 50.0 to 59.9 in adult (HCC) PCOS (polycystic ovarian syndrome) Expected: 08/02/2024, Expires: 11/01/2024 [facility] Comment on above: Expected: 08/02/2024, Expires: Start: 08-02-2024 End: 11-01-2024 Thyroxine (T4) free [Mass/volume] in Serum or Plasma T4 FREE/FREE THYROXINE Lab Routine Class 3 severe obesity due to excess calories without serious comorbidity with body mass index (BMI) of 50.0 to 59.9 in adult (HCC) PCOS (polycystic ovarian syndrome) Expected: 08/02/2024, Expires: 11/01/2024 [facility] Comment on above: Expected: 08/02/2024, Expires: Start: 07-02-2024 End: 07-02-2024 Patient encounter procedure 07/02/2024 1:30 PM EDT Office Visit [facility] Obstetrics and Gynecology - [address] [place] [address] Yessi Munoz MD [address] [place] [address] [facility] Obstetrics and Gynecology [facility] Start: 06-19-2024 End: 06-19-2024 Admission to same day surgery center 06/19/2024 7:30 AM EDT - 06/19/2024 8:30 AM EDT Surgery [facility] MAIN OR [address] [place] [phone] Yessi Munoz MD [address] [place] [address] HYSTEROSCOPY DILATION AND CURETTAGE [90783 (CPT )] [facility] MAIN OR Comment on above: HYSTEROSCOPY DILATION AND CURETTAGE [585 60 (CPT )] Start: 06-19-2024 End: 06-19-2024 Anesthesia consultation 06/19/2024 7:30 AM EDT Anesthesia Event [facility] MAIN OR [address] [place] [phone] Rafia Caceres, ESTIVEN [address] [place] [address] [facility] MAIN OR Start: 06-19-2024 End: 06-19-2024 Hysteroscopy bx endometrium&/polypc w/wo d&c DILATION AND CURETTAGE Endometrial hyperplasia, unspecified 06/19/2024 7:30 AM EDT [facility] Operating Room Start: 06-19-2024 Subsequent hospital visit by physician 06/19/2024 7:30 AM EDT Hospital Encounter [facility] MAIN OR [address] [place] [phone] Yessi Munoz MD [address] [place] [address] [facility] MAIN OR Start: 06-13-2024 End: 06-13-2024 Admission to establishment 06/13/2024 2:00 PM EDT Pre-Admission Testing [facility] Pre-Admit Testing [address] [place] [address] [facility] Pre-Admit Testing Start: 06-12-2024 End: 06-12-2024 Anesthesia consultation 06/12/2024 11:59 PM EDT Anesthesia Event [facility] MAIN OR [address] [place] [address] Rafia Caceres PA-C [address] [place] [address] [facility] MAIN OR Start: 06-12-2024 End: 06-12-2024 Admission to establishment 06/12/2024 11:00 AM EDT Pre-Admission Testing [facility] Pre-Admit Testing [address] [place] [phone] [facility] Pre-Admit Testing Start: 05-07-2024 End: 05-07-2024 Patient encounter procedure 05/07/2024 8:30 AM EST Office Visit [facility] [address] [place] [address] Demetrius Robertson APRN - CNP [address] [place] [address] [facility] Start: 04-23-2024 End: 04-23-2024 Patient encounter procedure [facility] Medical [facility] Start: 03-25-2024 End: 03-25-2024 Patient encounter procedure 03/25/2024 1:45 PM EST Office Visit [facility] Obstetrics and [facility] [address] [place] [address] Yessi Munzo MD [address] [place] [address] [facility] Obstetrics and Gynecology [facility] Start: 03-18-2024 End: 03-18-2024 Patient encounter procedure 03/18/2024 1:15 PM EST Office Visit [facility] Obstetrics and Gynecology [facility] [address] [place] [address] Yessi Munoz MD [address] [place] [address] [facility] Obstetrics and Gynecology [facility] Start: 03-13-2024 Medicare Advantage Annual Wellness Visit Medicare Advantage Annual Wellness Visit [facility] Start: 03-08-2024 End: 03-08-2024 Admission to same day surgery center 03/08/2024 3:00 PM EST - 03/08/2024 4:00 PM EST Surgery [facility] MAIN OR [address] [place] [phone] Yessi Munoz MD [address] [place] [address] HYSTEROSCOPY DILATION AND CURETTAGE [80693 (CPT )] [facility] MAIN OR Comment on above: HYSTEROSCOPY DILATION AND CURETTAGE [585 86 (CPT )] Start: 03-08-2024 Subsequent hospital visit by physician 03/08/2024 3:00 PM EST Hospital Encounter [facility] MAIN OR [address] [place] [phone] Yessi Munoz MD [address] [place] [address] [facility] MAIN OR Start: 03-08-2024 End: 03-08-2024 Hysteroscopy bx endometrium&/polypc w/wo d&c [facility] Operating Room Start: 03-04-2024 End: 03-04-2024 Admission to establishment 03/04/2024 9:00 AM EST Pre-Admission Testing [facility] Pre-Admit Testing [address] [facility] [place] [address] [facility] Pre-Admit Testing Start: 02-14-2024 End: 02-14-2024 Patient encounter procedure 02/14/2024 11:00 AM EST Procedure Visit [facility] Obstetrics and Gynecology - [address] [place] [phone] Yessi Munoz MD [address] [place] [address] [facility] Start: 02-07-2024 End: 02-07-2024 Patient encounter procedure 02/07/2024 11:15 AM EST Procedure Visit [facility] [address] [place] [phone] Yessi Munoz MD [address] [place] [address] [facility] Start: 01-23-2024 End: 01-23-2024 Patient encounter procedure 01/23/2024 11:00 AM EST Office Visit [facility] [address] [place] [phone] [facility] Start: 01-03-2024 End: 01-02-2025 17-Hydroxyprogesterone 17-Hydroxyprogesterone Lab Routine Excessive bleeding in premenopausal period Expected: 01/03/2024 (Approximate), Expires: 01/02/2025 [facility] Work Phone: Comment on above: Expected: 01/03/2024 (Approximate), Expi res: 01/02/2025 Start: 01-03-2024 End: 01-02-2025 CBC panel - Blood by Automated count CBC Lab Routine Excessive bleeding in premenopausal period Expected: 01/03/2024 (Approximate), Expires: 01/02/2025 [facility] Comment on above: Expected: 01/03/2024 (Approximate), Expi res: 01/02/2025 Start: 01-03-2024 End: 01-02-2025 DHEA-sulfate DHEA-sulfate Lab Routine Excessive bleeding in premenopausal period Expected: 01/03/2024 (Approximate), Expires: 01/02/2025 [facility] Comment on above: Expected: 01/03/2024 (Approximate), Expi res: 01/02/2025 Start: 01-03-2024 End: 01-02-2025 Glucose [Mass/volume] in Serum or Plasma Glucose, random Lab Routine Excessive bleeding in premenopausal period Expected: 01/03/2024 (Approximate), Expires: 01/02/2025 [facility] Comment on above: Expected: 01/03/2024 (Approximate), Expi res: 01/02/2025 Start: 01-03-2024 End: 01-02-2025 hCG, quantitative hCG, quantitative Lab Routine Excessive bleeding in premenopausal period Expected: 01/03/2024 (Approximate), Expires: 01/02/2025 [facility] Comment on above: Expected: 01/03/2024 (Approximate), Expi res: 01/02/2025 Start: 01-03-2024 End: 01-02-2025 Insulin Insulin Lab Routine Excessive bleeding in premenopausal period Expected: 01/03/2024 (Approximate), Expires: 01/02/2025 [facility] Comment on above: Expected: 01/03/2024 (Approximate), Expi res: 01/02/2025 Start: 01-03-2024 End: 01-02-2025 Prolactin Prolactin Lab Routine Excessive bleeding in premenopausal period Expected: 01/03/2024 (Approximate), Expires: 01/02/2025 [facility] Comment on above: Expected: 01/03/2024 (Approximate), Expi res: 01/02/2025 Start: 01-03-2024 End: 01-02-2025 Testo,Free/Total (Sendout) Testo,Free/Total (Sendout) Lab Routine Excessive bleeding in premenopausal period Expected: 01/03/2024 (Approximate), Expires: 01/02/2025 [facility] Comment on above: Expected: 01/03/2024 (Approximate), Expi res: 01/02/2025 Start: 01-03-2024 End: 01-02-2025 Thyrotropin [Units/volume] in Serum or Plasma TSH Lab Routine Excessive bleeding in premenopausal period Expected: 01/03/2024 (Approximate), Expires: 01/02/2025 [facility] Comment on above: Expected: 01/03/2024 (Approximate), Expi res: 01/02/2025 Start: 01-03-2024 End: 01-02-2025 US Pelvis transvaginal US pelvis transvaginal Imaging Routine Excessive bleeding in premenopausal period Expected: 01/03/2024, Expires: 01/02/2025 [facility] Comment on above: Expected: 01/03/2024, Expires: Start: 11-12-2023 COVID-19 Vaccine () COVID-19 Vaccine () [facility] Start: 11-12-2023 Influenza vaccination [facility] Start: 08-25-2023 End: 08-25-2023 Patient encounter procedure 08/25/2023 1:30 PM EDT Office Visit [facility] [address] [place], [place] [phone] Anthony Garvin V, DO [address] [place], [place] [phone] R knee pain - wants to discuss injection [facility] Comment on above: R knee pain - wants to discuss injection Start: 07-11-2023 End: 07-11-2023 Patient encounter procedure [facility] Start: 2023 Screening for malignant neoplasm of breast [facility] Start: 03-13-2023 Medicare Advantage Annual Wellness Visit Medicare Advantage Annual Wellness Visit [facility] Start: 03-02-2023 HEPATITIS B (2 of 3 - 3-dose series) HEPATITIS B (2 of 3 - 3-dose series) [facility] Comment on above: Postponed from 11/06/1999 (Declined at t his time) Start: 03-02-2023 Hepatitis B Vaccine (2 of 3 - 3-dose series) Hepatitis B Vaccine (2 of 3 - 3-dose series) [facility] Comment on above: Postponed from 11/06/1999 (Declined at t his time) Start: 02-07-2023 [facility] Start: 11-17-2022 Lipid panel Lipid Panel [facility] Start: 11-11-2022 COVID-19 Vaccine () COVID-19 Vaccine () [facility] Start: 11-11-2022 Influenza vaccination [facility] Start: 09-09-2022 Influenza vaccination INFLUENZA (#1) [facility] Comment on above: Postponed from 11/11/2021 (Declined at t his time) Start: 07-08-2022 End: 07-09-2023 Levetiracetam level Levetiracetam level Lab Routine 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, not intractable, without status epilepticus (HCC) Expected: 07/08/2022 (Approximate), Expires: 07/09/2023 [facility] Work Phone: Comment on above: Expected: 07/08/2022 (Approximate), Expi res: 07/09/2023 Start: 07-08-2022 End: 07-08-2022 Patient encounter procedure 07/08/2022 Office Visit Neurology Demetrius Adrian, FRANOC - ALEJANDRO [address] [facility] [address] [place], [place] [phone] [facility] [place] Start: 11-11-2021 Influenza vaccination [facility] Start: 10-18-2021 Referral to service [facility] Work Phone: Start: 10-18-2021 End: 10-18-2021 Suicide precautions [facility] Work Phone: Start: 04-15-2021 HPV TESTING HPV TESTING [facility] Start: 04-15-2021 PAP TESTING PAP TESTING [facility] Start: 04-12-2021 End: 04-12-2021 Patient encounter procedure 04/12/2021 Office Visit Neurology Anderson Ordonez MD [address] [place] [address] [phone] [facility] [place] Start: 04-06-2021 End: 04-06-2021 Patient encounter procedure 04/06/2021 Office Visit Neurology Anderson Ordonez MD [address] [place], [place] [phone] [facility] [place] Start: 03-13-2021 DEPRESSION ASSESSMENT DEPRESSION ASSESSMENT [facility] Start: 01-06-2021 End: 01-06-2021 Patient encounter procedure 01/06/2021 Office Visit Obstetrics and Gynecology Yessi Munoz MD [address] [place] [address] [phone] [facility] Start: 11-19-2020 End: 11-19-2020 Patient encounter procedure 11/19/2020 Office Visit Obstetrics and Gynecology Yessi Munoz MD [address] [place] [address] [phone] [facility] [employer] Start: 11-11-2020 Influenza vaccination Flu vaccine (#1) [facility] Work Phone: Start: 11-05-2020 End: 11-05-2020 Patient encounter procedure 11/05/2020 Procedure visit Obstetrics and Gynecology [facility] Start: 09-06-2020 Annual Wellness Visit (AWV) Annual Wellness Visit (AWV) [facility] Work Phone: Start: 01-29-2019 Adult depression screening assessment DEPRESSION SCREENING [facility] Start: 02-06-2017 End: 02-06-2017 *GC/Chlamydia *GC/Chlamydia [facility] Start: 02-06-2017 End: 02-06-2017 Bacteria genital culture *CUV - Culture, VAG/CX [facility] Start: 02-06-2017 End: 02-06-2017 Appointment Appointment [facility] Start: 02-06-2017 End: 02-06-2017 *GC/Chlamydia *GC/Chlamydia [facility] Start: 02-06-2017 End: 02-06-2017 Bacteria genital culture *CUV - Culture, VAG/CX [facility] Start: 10-07-2016 End: 10-07-2016 Appointment Appointment [facility] Start: 10-07-2016 End: 02-07-2017 17-Hydroxycorticosteroids [Mass/volume] in Urine *17HYDUR Hydroxycortosteroids 17- [facility] Start: 10-07-2016 End: 02-07-2017 Dehydroepiandrosterone sulfate (DHEA-S) *DHEA - DHEA-S (Dehydroepiandrosterone Sullfate) [facility] Start: 10-07-2016 End: 02-07-2017 Testosterone Free [Mass/volume] in Serum or Plasma *TESTOF Testosterone Free [facility] Start: 10-07-2016 End: 02-07-2017 Thyroid stimulating hormone (TSH) *TSH [facility] Start: 10-07-2016 End: 02-07-2017 17-Hydroxycorticosteroids [Mass/volume] in Urine *17HYDUR Hydroxycortosteroids 17- [facility] Start: 10-07-2016 End: 02-07-2017 Dehydroepiandrosterone sulfate (DHEA-S) *DHEA - DHEA-S (Dehydroepiandrosterone Sullfate) [facility] Start: 10-07-2016 End: 02-07-2017 Testosterone Free [Mass/volume] in Serum or Plasma *TESTOF Testosterone Free [facility] Start: 10-07-2016 End: 02-07-2017 Thyroid stimulating hormone (TSH) *TSH [facility] Start: 06-15-2013 Screening for malignant neoplasm of cervix [facility] Start: 06-15-2010 HPV Vaccine (1 - 3-dose SCDM series) HPV Vaccine (1 - 3-dose SCDM series) [facility] Start: 06-15-2004 Screening for malignant neoplasm of cervix [facility] Work Phone: Start: 06-15-2001 Anxiety Screening Anxiety Screening [facility] Start: 06-15-2001 Diabetes mellitus screening Diabetes Screening [facility] Start: 06-15-2001 Hepatitis C screening Hepatitis C Screening [facility] Start: 04-10-2000 Hepatitis A vaccine (2 of 2 - 2-dose series) Hepatitis A vaccine (2 of 2 - 2-dose series) [facility] Work Phone: Start: 04-10-2000 Hepatitis A Vaccines (2 of 2 - 2-dose series) Hepatitis A Vaccines (2 of 2 - 2-dose series) [facility] Start: 11-06-1999 HEPATITIS B (2 of 3 - 3-dose series) HEPATITIS B (2 of 3 - 3-dose series) [facility] Start: 11-06-1999 Hepatitis B vaccine (2 of 3 - 3-dose primary series) Hepatitis B vaccine (2 of 3 - 3-dose primary series) [facility] Work Phone: Start: 11-06-1999 Hepatitis B Vaccine (2 of 3 - 3-dose series) Hepatitis B Vaccine (2 of 3 - 3-dose series) [facility] Start: 11-06-1999 Hepatitis B Vaccines (2 of 3 - 3-dose series) Hepatitis B Vaccines (2 of 3 - 3-dose series) [facility] Start: 06-15-[address] HIV [facility] Work Phone: Start: 06-15-1996 Varicella vaccination Varicella Vaccines (1 of 2 - 13+ 2-dose series) [facility] Start: 1995 COVID-19 Vaccine (1) COVID-19 Vaccine (1) [facility] Work Phone: Start: 1995 Depression Monitoring Depression Monitoring [facility] Start: 1995 Depresssion Monitoring Depresssion Monitoring [facility] Start: 06-15-1988 COVID-19 VACCINE (#1) COVID-19 VACCINE (#1) [facility] Start: 06-15-1988 COVID-19 VACCINE (1) COVID-19 VACCINE (1) [facility] Start: 06-15-1984 MMR Vaccines (1 of 1 - Standard series) MMR Vaccines (1 of 1 - Standard series) [facility] Start: 06-15-1984 Varicella vaccination Varicella Vaccines (1 of 2 - 2-dose childhood series) [facility] Start: 06-15-1984 Varicella vaccine (1 of 2 - 2-dose childhood series) Varicella vaccine (1 of 2 - 2-dose childhood series) [facility] Work Phone: Start: 1983 COVID-19 VACCINE (#1) COVID-19 VACCINE (#1) [facility] Start: 1983 Hepatitis C screening Hepatitis C screen [facility] Work Phone: Start: 1983 HIV screening HIV Screening [facility] Start: 1983 Lipid panel Lipid Panel [facility] Start: 1983 Medicare Advantage Annual Wellness Visit (AWV) Medicare Advantage Annual Wellness Visit (AWV) [employer] End: 10-28-2020 17-Hydroxyprogesterone 17-Hydroxyprogesterone Lab Routine PCOS (polycystic ovarian syndrome) 1 Occurrences starting 10/28/2020 until 10/28/2020 [facility] Work Phone: Comment on above: 1 Occurrences starting 10/28/2020 until 10/28/2020 17-Hydroxyprogesterone 17-Hydrox yprogesterone Lab Routine PCOS (polycystic ovarian syndrome) 10/28/2020 11:30 AM EDT [facility] Work Phone: End: 03-08-2024 Choriogonadotropin ( test) [Presence] in Urine [facility] Work Phone: Comment on above: Once (Lab) for 1 Occurrences starting until 03/08/2024 End: 10-28-2020 DHEA-Sulfate DHEA-Sulfate Lab Routine PCOS (polycystic ovarian syndrome) 1 Occurrences starting 10/28/2020 until 10/28/2020 [facility] Work Phone: Comment on above: 1 Occurrences starting 10/28/2020 until 10/28/2020 DHEA-Sulfate DHEA-Sulfate Lab Routine PCOS (polycystic ovarian syndrome) 10/28/2020 11:30 AM EDT [facility] Work Phone: Endometrial bx w/wo endocervix bx w/o dilat spx ENDOMETRIAL BIOPSY Procedures Routine Abnormal uterine bleeding (AUB) Menorrhagia with irregular cycle Ordered: 09/12/2024 [facility] Comment on above: Ordered: 09/12/2024 End: 10-28-2020 Insulin, Random Insulin, Random Lab Routine PCOS (polycystic ovarian syndrome) 1 Occurrences starting 10/28/2020 until 10/28/2020 [facility] Work Phone: Comment on above: 1 Occurrences starting 10/28/2020 until 10/28/2020 Insulin, Random Insulin, Random Lab Routine PCOS (polycystic ovarian syndrome) 10/28/2020 11:30 AM EDT [facility] Work Phone: Patient Education [facility] Work Phone: Patient referral [facility] Work Phone: End: 10-28-2020 Testosterone,Free/[facility] Testosterone,Free/[facility] Lab Routine PCOS (polycystic ovarian syndrome) Other ovarian dysfunction 1 Occurrences starting 10/28/2020 until 10/28/2020 [facility] Work Phone: Comment on above: 1 Occurrences starting 10/28/2020 until 10/28/2020 Testosterone,Free/To [facility] Testosterone,Free/[facility] Lab Routine PCOS (polycystic ovarian syndrome) Other ovarian dysfunction 10/28/2020 11:30 AM EDT [facility] Work Phone: Tissue exam [facility] Work Phone: Comment on above: Release Upon Ordering for 1 Occurrences starting 03/08/2024 End: 10-13-2025 US Pelvis transvaginal US FEMALE PELVIS TRANSVAG Radiology Routine Abnormal uterine bleeding (AUB) 1 Occurrences starting 09/12/2024 until 10/13/2025 [facility] Work Phone: Comment on above: 1 Occurrences starting 09/12/2024 until 10/13/2025 End: 09-13-2024 XR Knee - right 4 Views XR KNEE GENERAL 4V AP BOTH/PA BOTH/LAT/MERC RIGHT Radiology Routine Right knee pain, unspecified chronicity 1 Occurrences starting 08/15/2023 until 09/13/2024 [facility] Work Phone: Comment on above: 1 Occurrences starting 08/15/2023 until 09/13/2024 XR Knee - right 4 Views XR KNEE GENERAL 4V AP BOTH/PA BOTH/LAT/MERC RIGHT Radiology Routine Right knee pain, unspecified chronicity 08/25/2023 1:48 PM EDT [facility] Work Phone: [facility] Immunizations Immunization Date Immunization Notes Care Provider Nakul lucero 01-29-2018 tetanus toxoid, redu roland diphtheria toxoid, and acellular pertussis vaccine, adsorbed Bela Joseph APRN.CNP Work Phone: [facility] Work Phone: 01-29-2018 influenza virus vaccine, unspecified formulation Aubrie Rich MA [facility] 10-30-2007 tetanus toxoid, redu roland diphtheria toxoid, and acellular pertussis vaccine, adsorbed Bela Joseph 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 Work Phone: [facility] Work Phone: 10-06-2002 hepatitis B immune globulin Bela Joseph 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 Work Phone: [facility] Work Phone: 05-27-2002 hepatitis B immune globulin Bela Joseph 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 Work Phone: [facility] Work Phone: 10-09-1999 hepatitis A and hepatitis B vaccine eBla Joseph 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 Work Phone: [facility] Work Phone: 10-09-1999 hepatitis B vaccine, unspecified formulation Anthony Garvin V, DO Work Phone: [facility] 09-03-1999 hepatitis B immune globulin Bela Joseph 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 Work Phone: [facility] Work Phone: Payers Date Payer Category Payer Self-pay [id number] 2022 Medicaid HMO UHC DAFNEPAZ Krzysztof EDICAID ONLY [id number] 2019 Medicaid UHC MEDICAID MYC ARE [facility] MEDICAID [id number] 2019-Present [phone] [address] [place] [address] Medicaid [id number] 2019 Medicaid [id number] 2019 Medicare ANTHEM MEDICARE ADVANTAGE ANTH MEDICARE ADVANTAGE [id number] 2019-Present [address] [place] [id number] Medicare HMO [id number] 2019 Medicare (Managed Care) JUANY ESPINOSA ADVANTAGE HMO [id number] 2019 Medicare HMO [id number] 2019 Unknown JUANY BLUE CROS S AND BLUE SHIELD ANTHEM MEDIBLUE O [id number] 2019-Present [phone] [address] [place] [address] O [id number] 2019 Unknown [id number] 2019 Medicaid [id number] 2017 Medicare [id number] 2016 Medicaid [id number] 2009 Medicare [id number] Unknown [id number] Unknown [id number] Unknown [id number] Unknown [id number] Unknown [id number] Unknown [id number] Unknown [id number] Unknown [id number] Social History Date Type Detail Facility Start: 03-01-2012 End: 10-28-2020 Tobacco smoking status AZIS Never smoker [facility] Start: 03-01-2012 End: 10-28-2020 Tobacco use and exposure Never used [facility] Start: 10-28-2020 End: 06-13-2024 Alcohol intake Current drinker of alcohol (finding) [facility] Work Phone: Start: 10-06-2020 History SDOH Alcohol Frequency 1 [employer] Work Phone: Start: 10-28-2020 End: 06-13-2024 Alcohol Comment occ [employer] [facility] Work Phone: Start: 1985 Sex Assigned At Not on file S [facility] Work Phone: Start: 10-20-2020 End: 07-09-2021 Alcohol intake Current non-drinker of alcohol (finding) [facility] Start: 09-20-2020 End: 07-08-2022 Exposure to SARS-CoV-2 (event) Not sure [facility] Start: 08-02-2021 End: 02-06-2023 Tobacco smoking status NHIS Unknown if ever smoked [facility] Start: 06-07-2020 Occasional [facility] Start: 01-09-2019 None [facility] Start: 06-07-2020 Alone [facility] Start: 07-28-2020 Non-smoker [facility] Start: 1985 Sex Assigned At Female [facility] Start: 03-02-2022 Alcohol Comment rare [facility] Start: 07-08-2022 End: 05-07-2024 Alcohol intake Ex-drinker (finding) [facility] Start: 07-08-2022 End: 06-13-2024 History of Social function [facility] Work Phone: Start: 07-08-2022 End: 06-13-2024 Tobacco use panel [facility] Work Phone: Start: 02-12-2012 Adult Depression Screening Assessment 0 [facility] Work Phone: Start: 10-11-2021 Sex Female (finding) [facility] How often to you hav e a drink containing alcohol? Never [facility] Start: 06-13-2024 Gender identity Identifies as female gender (finding) [facility] Start: 06-13-2024 Sexual orientation Heterosexual (fin ding) [facility] Functional Status Date Assessment Result Facility 05-06-2014 Are you deaf, or do you have serious difficulty hearing No 05/06/2014 8:21 AM Flakita Denson LPN No [facility] 05-06-2014 Are you blind, or do you have serious difficulty seeing, even when wearing glasses No 05/06/2014 8:21 AM Flakita Denson LPN No [facility] 05-06-2014 Do you have serious difficulty walking or climbing stairs No 05/06/2014 8:21 AM Flakita Denson LPN No [facility] 05-06-2014 Do you have difficul ty dressing or bathing No 05/06/2014 8:21 AM Flakita Denson LPN No [facility] 05-06-2014 Because of a physica l, mental, or emotional condition, do you have difficulty doing errands alone such as visiting a physician's office or shopping No 05/06/2014 8:21 AM Flakita Denson LPN No [facility] Mental Status Date Assessment Result Facility 01-09-2022 Cognitive function Voice/Name [facility] Work Phone: 05-06-2014 Because of a physica l, mental, or emotional condition, do you have serious difficulty concentrating, remembering, or making decisions No 05/06/2014 8:21 AM Flakita Denson LPN No [facility] Clinical Notes 07-13-2015 to 11-20-2024 Telephone Encounter - Angella Akbar MA - 11/20/2024 2:30 PM EDTTelephone Encounter - Angella Akbar MA - 11/20/2024 2:30 PM EDTTelephone Encounter - Ghada Fairchild - 11/20/2024 2:20 PM EDT Note Date & Type Note Facility 11-20-2024 Telephone encounter Note Yes, patient needing appointment to discuss, LVM already done [facility] 11-20-2024 Miscellaneous Notes Yes, patient needing appointment to discuss, LVM already done Called and LVM for pt to call office back to get surgery consult appt scheduled with dr munoz. Pt calling to scheduled surgery and has not heard back and wondering when she can get this scheduled Please advise Does dr Sanchez want to have an appt with her before rescheduling? Name of Caller: Kristin Contact Reason for Appointment: Patient is calling back to reschedule Surgery. Please call her back to discuss. Thank you. Office Name: ObGyn Medication Refills need, if any: No Medication Name: N/A documented in this encounter [facility] 11-20-2024 Telephone encounter Note Called and LVM for pt to call office back to get surgery consult appt scheduled with dr munoz. [facility] 11-20-2024 Telephone encounter Note Pt calling to scheduled surgery and has not heard back and wondering when she can get this scheduled Please advise [facility] 11-14-2024 Telephone encounter Note Does dr Sanchez want to have an appt with her before rescheduling? [facility] 11-14-[address] Sanchez want to have an appt with her before rescheduling? Name of Caller: Kristin Contact Reason for Appointment: Patient is calling back to reschedule Surgery. Please call her back to discuss. Thank you. Office Name: ObGyn Medication Refills need, if any: No Medication Name: N/A documented in this encounter [facility] 11-12-2024 Telephone encounter Note Name of Caller: Kristin Contact Reason for Appointment: Patient is calling back to reschedule Surgery. Please call her back to discuss. Thank you. Office Name: ObGyn Medication Refills need, if any: No Medication Name: N/A [facility] 11-12-2024 Miscellaneous Notes Name of Caller: Kristin Contact Reason for Appointment: Patient is calling back to reschedule Surgery. Please call her back to discuss. Thank you. Office Name: ObGyn Medication Refills need, if any: No Medication Name: N/A documented in this encounter [facility] 11-08-2024 Telephone encounter Note Phoned patient, left voicemail to return call. Need to relay provider message as below. Nita Naik MA [facility] 11-08-2024 Miscellaneous Notes Phoned patient, left voicemail to return call. Need to relay provider message as below. Nita Naik MA She should wait until the antibiotic therapy has been completed and the infection has resolved completely Have her schedule appt after labs are completed please Patient called in again and asking for a call back with instructions. Patient states she does not like using the internet due to epilepsy and it being addictive. Patient informed that a message has been sent to her MD with her question. Roxana Driscoll RN Patient calling in asking if she can have her labs drawn while on an antibiotic for an abscess. Patient's next appointment is 11/12/24. Patient is ordered to have Hydroxyprogesterone-17 and ACTH Stimulation labs drawn. Patient also asking if she needs to reschedule her appointment for next week if she is unable to have the labs drawn. Please review and advise. Roxana Driscoll RN documented in this encounter [facility] 11-08-2024 Telephone encounter Note She should wait until the antibiotic therapy has been completed and the infection has resolved completely Have her schedule appt after labs are completed please [facility] 11-06-2024 Telephone encounter Note Patient called in again and asking for a call back with instructions. Patient states she does not like using the internet due to epilepsy and it being addictive. Patient informed that a message has been sent to her MD with her question. Roxana Driscoll RN [facility] 11-06-2024 Telephone encounter Note Patient calling in asking if she can have her labs drawn while on an antibiotic for an abscess. Patient's next appointment is 11/12/24. Patient is ordered to have Hydroxyprogesterone-17 and ACTH Stimulation labs drawn. Patient also asking if she needs to reschedule her appointment for next week if she is unable to have the labs drawn. Please review and advise. Roxana Driscoll RN [facility] 09-26-2024 Telephone encounter Note Noted Ricco Gandhi MD [facility] Work Phone: 09-26-2024 Miscellaneous Notes Noted Ricco Gandhi MD Patient was contacted by [facility] to notify the patient that her EMB on 09/27/24 was cancelled due to needing US completed prior. Patient called back very upset that her appointment was moved since she has difficulty finding transportation. Patient yelled and cursed that she was done with the [facility] because her appointments are consisently rescheduled and she no longer wishes to continue with procedures. She then abruptly ended the call. documented in this encounter [facility] 09-26-2024 Telephone encounter Note Patient was contacted by [facility] to notify the patient that her EMB on 09/27/24 was cancelled due to needing US completed prior. Patient called back very upset that her appointment was moved since she has difficulty finding transportation. Patient yelled and cursed that she was done with the [facility] because her appointments are consisently rescheduled and she no longer wishes to continue with procedures. She then abruptly ended the call. [facility] 09-12-2024 Note HNO ID: [id number] Author: CHARLETTE BRYANT APRN.PALOMO Service: ? Author Type: Regional Vice President Life Sales Type: Progress Notes Filed: 09/12/2024 13:03 Note Text: 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 Josse Wayne is a 39 year old female who presents for problem visit for constant bleeding since 05/2022. She reports daily bleeding and soaking through ultra tampons and pads. She was receiving care in [place] and was supposed to have surgery but had to cancel due to transportation reasons. Pelvic US on 01/2024: Endometrium is thickened, echogenic and uniform measuring 16.23mm. No increased blood flow is noted. Consider endometrial sampling if clinically indicated. * NO PATHOLOGY REPORT TO VIEW Patient had hysteroscopy DANMO on 03/08/24 and was supposed to have a repeat in 06/2024. She did not complete the repeat hysteroscopy. She wants to transfer to this office to have care in [place]. Patient is not currently sexually active. She does not use any hormonal control. Reports her periods have been all over the place her whole life. Patient is a poor historian. Difficult to keep patient focused at times. 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 (Patient not taking: Reported on 09/03/2024) megestrol (MEGACE) 20 mg tablet 20 mg. (Patient not taking: Reported on 09/03/2024) MENEST 0.625 mg tablet Take 0.625 mg by mouth once daily. dexAMETHasone (DECADRON) 1 mg tablet Take the tablet at 11 pm and go for labs the next morning on fasting at 8 am Patient should start on July 24, 2024. (Patient not taking: Reported on 09/03/2024) meloxicam (MOBIC) 15 mg tablet Take 1 tablet by mouth once daily. (Patient not taking: Reported on 06/03/2024) benzonatate (TESSALON PERLES) 100 mg capsule Take 1 capsule by mouth three times a day as needed. (Patient not taking: Reported on 05/10/2023) loratadine (CLARITIN) 10 mg tablet Take 1 tablet by mouth once daily. (Patient not taking: Reported on 04/26/2023) citalopram (CELEXA) 20 mg tablet Take 20 mg by mouth once daily. citalopram hydrobromide (CELEXA) 10 mg tablet Take 10 mg by mouth once daily. metFORMIN (GLUCOPHAGE) 500 mg tablet Take 500 mg by mouth three times daily. (Patient not taking: Reported on 04/26/2023) propranolol (INDERAL) 10 mg tablet Take 1 tablet by mouth once daily. (Patient not taking: Reported on 06/03/2024) BIOTIN ORAL Take by mouth. cholecalciferol (VITAMIN D3) 2,000 unit tablet Take 1 tablet by mouth once daily. ferrous sulfate (IRON ORAL) Take by mouth. levETIRAcetam XR (KEPPRA XR) 500 mg 24 hr tablet Take 500 mg each morning and 1000 mg evening. ALPRAZolam (XANAX) 2 mg tablet Take 2 mg by mouth twice daily. 2 mg am 2mg noon 1 mg bedtime Current Facility-Administered Medications Medication Dose Route Frequency cosyntropin 0.25 mg injection (CORTROSYN) 0.25 mg INTRAVENOUS ONCE (AMB - Up to 30 Days) Allergies As of Date: 09/12/2024 Allergen Noted Reaction ABILIFY [ARIPIPRAZOLE] 09/03/2024 Other: See Comments ATARAX [HYDROXYZINE] 04/26/2023 Mental Status Change PHENOBARBITAL 09/12/2006 Rash PROPRANOLOL 08/20/2022 Rash Fully Assessed 09/03/2024 REVIEW OF SYSTEMS Abdomen: No abdominal pain, nausea, vomiting, diarrhea, or constipation. Bladder: No dysuria, gross hematuria, urinary frequency, urinary urgency, or incontinence. Breast: No breast lumps, nipple d/c, overlying skin changes, redness or skin retraction. Expanded ROS: OUTSIDE PRODUCTION INSPECTOR: Positive for abnormal vaginal bleeding or (more content not included)... [facility] 09-12-2024 History of Present illness Narrative 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 Josse Wayne is a 39 year old female who presents for problem visit for constant bleeding since 05/2022. She reports daily bleeding and soaking through ultra tampons and pads. She was receiving care in [place] and was supposed to have surgery but had to cancel due to transportation reasons. Pelvic US on 01/2024: Endometrium is thickened, echogenic and uniform measuring 16.23mm. No increased blood flow is noted. Consider endometrial sampling if clinically indicated. * NO PATHOLOGY REPORT TO VIEW Patient had hysteroscopy D&C on 03/08/24 and was supposed to have a repeat in 06/2024. She did not complete the repeat hysteroscopy. She wants to transfer to this office to have care in [place]. Patient is not currently sexually active. She does not use any hormonal control. Reports her periods have been all over the place her whole life. Patient is a poor historian. Difficult to keep patient focused at times. 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 (Patient not taking: Reported on 09/03/2024) megestrol (MEGACE) 20 mg tablet 20 mg. (Patient not taking: Reported on 09/03/2024) MENEST 0.625 mg tablet Take 0.625 mg by mouth once daily. dexAMETHasone (DECADRON) 1 mg tablet Take the tablet at 11 pm and go for labs the next morning on fasting at 8 am Patient should start on July 24, 2024. (Patient not taking: Reported on 09/03/2024) meloxicam (MOBIC) 15 mg tablet Take 1 tablet by mouth once daily. (Patient not taking: Reported on 06/03/2024) benzonatate (TESSALON PERLES) 100 mg capsule Take 1 capsule by mouth three times a day as needed. (Patient not taking: Reported on 05/10/2023) loratadine (CLARITIN) 10 mg tablet Take 1 tablet by mouth once daily. (Patient not taking: Reported on 04/26/2023) citalopram (CELEXA) 20 mg tablet Take 20 mg by mouth once daily. citalopram hydrobromide (CELEXA) 10 mg tablet Take 10 mg by mouth once daily. metFORMIN (GLUCOPHAGE) 500 mg tablet Take 500 mg by mouth three times daily. (Patient not taking: Reported on 04/26/2023) propranolol (INDERAL) 10 mg tablet Take 1 tablet by mouth once daily. (Patient not taking: Reported on 06/03/2024) BIOTIN ORAL Take by mouth. cholecalciferol (VITAMIN D3) 2,000 unit tablet Take 1 tablet by mouth once daily. ferrous sulfate (IRON ORAL) Take by mouth. levETIRAcetam XR (KEPPRA XR) 500 mg 24 hr tablet Take 500 mg each morning and 1000 mg evening. ALPRAZolam (XANAX) 2 mg tablet Take 2 mg by mouth twice daily. 2 mg am 2mg noon 1 mg bedtime Current Facility-Administered Medications Medication Dose Route Frequency cosyntropin 0.25 mg injection (CORTROSYN) 0.25 mg INTRAVENOUS ONCE (AMB - Up to 30 Days) Allergies As of Date: 09/12/2024 Allergen Noted Reaction ABILIFY [ARIPIPRAZOLE] 09/03/2024 Other: See Comments ATARAX [HYDROXYZINE] 04/26/2023 Mental Status Change PHENOBARBITAL 09/12/2006 Rash PROPRANOLOL 08/20/2022 Rash Fully Assessed 09/03/2024 REVIEW OF SYSTEMS Abdomen: No abdominal pain, nausea, vomiting, diarrhea, or constipation. Bladder: No dysuria, gross hematuria, urinary frequency, urinary urgency, or incontinence. Breast: No breast lumps, nipple d/c, overlying skin changes, redness or skin retraction. Expanded ROS: OUTSIDE PRODUCTION INSPECTOR: Positive for abnormal vaginal bleeding or SEE HPI PSYCH: Positive for history of medications- stopped all meds 2 weeks ago because was told by swing type lathe operator to stop? ENDOCRINE: Seen for NEURO: History of seizures/ Unsure of last one Seen by neurology Allergies and current medication updated:Yes SENSITIVE EXAM: Sensitive exam not performed. EXAM: LMP 06/30/2021 GENERAL: emotional, female in mild distress HEENT: Normocephalic NECK: Supple DERMATOLOGY: Normal BREAST: deferred CHEST: Normal inspiratory effort ABDOMEN: Deferred PELVIC: deferred BIMANUAL: deferred NEURO: alert and oriented x3,exam grossly non-focal EXTREMITIES: normal ASSESSMENT AND PLAN: Assessment & Plan Abnormal uterine bleeding (AUB) Orders: US FEMALE PELVIS TRANSVAG; Future ENDOMETRIAL BIOPSY COMPLETE BLOOD COUNT; Future CA 125; Future Menorrhagia with irregular cycle Orders: ENDOMETRIAL BIOPSY Endometrial hyperplasia - Unable to complete physical exam today on patient due to time restraints after collecting history from patient - Poor historian and will need to review patient records and results in depth - AUB- Ordering pelvic US/ EMB and labs - Patient declined Aygestin PO even after strong recommendation - Patient may need more specialized exam/consult - Will follow up with patient after results returned Charlette Bryant APRN.CNM documented in this encounter [facility] 09-03-2024 Instructions Ziyad Harrell MD - 09/03/2024 11:40 AM EDT Please do a different test needed for further evaluation Please be off of menest and finasteride for atleast 6 weeks before labs are drawn again On the test day, please do lab test at 8 am on fasting and then 1 hr after the injection Avoid any biotin supplements for atleast 5 days before the test documented in this encounter [facility] 09-03-2024 Note HNO ID: [id number] Author: ZIYAD HARRELL MD Service: ? Author Type: Physician Type: Progress Notes Filed: 09/04/2024 19:07 Note Text: Endocrinology and Metabolism [place] Follow up visit REASON FOR CONSULT: Evaluation of ovarian hyperandrogenism REQUESTING PHYSICIAN: Yessi Munoz MD HPI Josse Wayne is a 38 year old female presenting for follow up evaluation of ovarian hyperandrogenism. Initial visit/last visit 06/03/2024 - Menarche at age 13, with irregular [...] ?her PCP is working on right now Interval history: 09/03/24 Patient did not do labs on two separate days, despite clear instructions and were drawn later than recommended. However she has held menest and finasteride for few weeks before the labs are drawn as recommended She is following up after labs She reports resuming finasteride and menest after the labs were drawn, and is currently on them Of note, finasteride is not on her med list but she confirms this after checking on her phone PAST MEDICAL HISTORY: PAST MEDICAL HISTORY Diagnosis [...] daily. (Patient not taking: Reported on 06/03/2024) (more content not included)... [facility] 09-03-2024 History of Present illness Narrative Endocrinology and Metabolism [place] Follow up visit REASON FOR CONSULT: Evaluation of ovarian hyperandrogenism REQUESTING PHYSICIAN: Yessi Munoz MD HPI Josse Flynnmeli is a 38 year old female presenting for follow up evaluation of ovarian hyperandrogenism. Initial visit/last visit 06/03/2024 - Menarche at age 13, with irregular [...] ?her PCP is working on right now Interval history: 09/03/24 Patient did not do labs on two separate days, despite clear instructions and were drawn later than recommended. However she has held menest and finasteride for few weeks before the labs are drawn as recommended She is following up after labs She reports resuming finasteride and menest after the labs were drawn, and is currently on them Of note, finasteride is not on her med list but she confirms this after checking on her phone PAST MEDICAL HISTORY: PAST MEDICAL HISTORY Diagnosis [...] prior to visit. ALLERGIES: ALLERGIES Allergen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 of risks and still wishes to proceed. [facility] 03-08-2024 Note Formatting of this n ote might be different from the original. Patient educated on importance of coughing/ deep breathing after surgery to reduce risk of pneumonia. Patient educated on importance of early mobility to reduce the risk of blood clots. Falls prevention information reviewed with patient. Post-operative pain control and ways to prevent constipation discussed with patient. [facility] 03-08-2024 Note Formatting of this n ote might be different from the original. Patient educated on importance of coughing/ deep breathing after surgery to reduce risk of pneumonia. Patient educated on importance of early mobility to reduce the risk of blood clots. Falls prevention information reviewed with patient. Post-operative pain control and ways to prevent constipation discussed with patient. [facility] 03-08-2024 Note Patient: Josse Morrow Procedure Information Date/Time: 03/08/24 1500 Procedure: HYSTEROSCOPY DILATION AND CURETTAGE - 1 HOUR TOTAL Location: [address] Operating Room Surgeons: Yessi Munoz MD Relevant Problems Neuro/Psych (+) Depressive disorder Past Medical History: Past Medical History: No date: Anxiety No date: Depression No date: Epilepsia (HCC) No date: GERD (gastroesophageal reflux disease) No date: PCOS (polycystic ovarian syndrome) No date: PTSD (post-traumatic stress disorder) No date: Sleep apnea Past Surgical History: Past Surgical History: 1997: BRAIN SURGERY No date: DILATION AND CURETTAGE [...] previous visit. Equipment Requests: Additional Equipment Requests [facility] 02-26-2024 Telephone encounter Note PAT: by phone 03.04.2024 at 9 am SX: 03.08.2024 at 3 pm arrival at 1 pm Post op 03.25.2024 at 1:45 pm Instructions given. [facility] 02-26-2024 Miscellaneous Notes PAT: by phone 03.04.2024 at 9 am SX: 12.27.2023 at 3 pm arrival at 1 pm Post op 03.25.2024 at 1:45 pm Instructions given. documented in this encounter [facility] 02-05-2024 History of Present illness Narrative Discussed this. Still bleeding. Megace and D&C. documented in this encounter [facility] 01-25-2024 Telephone encounter Note Called and LVM to have pt schedule an appointment to review results, review bloodwork, and discuss concerns for yeast infection. Pt needs an appointment to review further workup [facility] 01-25-2024 Miscellaneous Notes Called [...] or caller hangs up) Protocols used: Difficult [id number] documented in this encounter [facility] 01-25-2024 Telephone encounter Note [...] results because that is all she wants. [facility] 01-24-2024 Telephone encounter Note S: Patient spoke [...] or caller hangs up) Protocols used: Difficult [id number] [facility] 01-18-2024 Telephone encounter Note Message released to patient as written. Yes Labs consistent with PCOS, can discuss at next visit Patient's further questions if applicable: N/A Were all questions from office addressed or relayed to the patient from encounter: Yes [facility] 01-18-2024 Miscellaneous Notes Message released to patient as written. Yes Labs consistent with PCOS, can discuss at next visit Patient's further questions if applicable: N/A Were all questions from office addressed or relayed to the patient from encounter: Yes documented in this encounter [facility] 01-08-2024 Telephone encounter Note S: The patient is calling the [facility] about a medication B: She hung up prior to talking to a nurse R: Left a message for her to call back if she continues to need assistance. Reason for Disposition Message left on identified voicemail Protocols used: No Contact or Duplicate Contact [id number] [facility] 01-08-2024 Miscellaneous Notes S: The patient is calling the [facility] about a medication B: She hung up prior to talking to a nurse R: Left a message for her to call back if she continues to need assistance. 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 documented in this encounter [facility] 09-27-2023 Telephone encounter Note Patient returned call. She has not done any treatment for her knee outside of [facility]. Patient declines a cortisone injection as she does not like steroid use. She is willing to try NSAID (send to [facility] [place]) and PT. Please place orders. Notify patient once completed. [facility] 09-27-2023 Miscellaneous Notes Patient returned call. She has not done any treatment for her knee outside of [facility]. Patient declines a cortisone injection as she does not like steroid use. She is willing to try NSAID (send to [facility]) and PT. Please place orders. Notify patient once completed. I called and left a message for the patient to contact the office. No cortisone injections given in the right knee. No documented PT since 2016 at [facility]. No NSAID use documented since 2020. === [...] into right knee. documented in this encounter [facility] 09-27-2023 Telephone encounter Note I called and left a message for the patient to contact the office. No cortisone injections given in the right knee. No documented PT since 2016 at [facility]. No NSAID use documented since 2020. [facility] 09-27-2023 Telephone encounter Note === PHARMACY TEAM ==== ADDITIONAL INFORMATION NEEDED/REQUESTED Case Submitted: No Request Type: Provider Date of Service: tbs Additional Information Needed: per payer policy pt must have trail/failure of the following: Pt/hep Nsiads, And CSI. Please advise if pt has completed the above. Thank you. Request from Payor by: N/A Email Sent to: ANTHONY GARVIN V Requested Clinicals/Information Sent: N/A Electronically signed by Luma (Pharmacy Hydroelectric Plant Electrical Engineer)Adneike at 09/27/2023 3:25 PM EDT [facility] 09-27-2023 Miscellaneous Notes === PHARMACY TEAM ==== [...] Clinicals/Information Sent: N/A documented in this encounter [facility] 09-19-2023 Telephone encounter Note === PHARMACY TEAM [...] Clinicals/Information Sent: N/A Was this already addressed? [facility] 09-18-2023 Telephone encounter Note Any updates on this ? [facility] 09-18-2023 Miscellaneous Notes Any updates on this [...] Clinicals/Information Sent: N/A documented in this encounter [facility] 09-08-2023 Telephone encounter Note === PHARMACY TEAM ==== ADDITIONAL INFORMATION NEEDED/REQUESTED Case Submitted: No Request Type: Provider Date of Service: tbs Additional Information Needed: per payer policy pt must have trail/failure of the following: Pt/hep Nsiads, And CSI. Please advise if pt has completed the above. Thank you. Request from Payor by: N/A Email Sent to: ANTHONY GARVIN V Requested Clinicals/Information Sent: N/A [facility] 09-07-2023 Telephone encounter Note Referral still pending with insurance. [facility] 08-25-2023 Telephone encounter Note Referral placed for Gel One injection x 1 into right knee. [facility] 08-25-2023 History of Present illness Narrative [...] She did receive gel 1 injection in 2016 and states that it helped quite a [...] Intervention/Comfort measure: Reposition documented in this encounter [facility] 08-25-2023 History of Present illness Narrative [...] PATIENT PRESENTS WITH AN IMPLANTABLE OR ATTACHED TOOLSMITH: No RADIOLOGY DEPARTMENT: General X-ray: Exam(s) Completed: Lower Extremity X-Ray(s): Knee, AP / Lat / Tunne / Merchant Right and Wt. Bearing PERIPHERAL IV DATA: Not applicable SIGNED BY: RT Yandel(R) August 25, 2023 2:00 PM documented in this encounter [facility] 06-21-2023 History of Present illness Narrative [...] was in 2013 She is working for [employer] for [employer] with plans to build a home She [...] 10/28/2020 VITAMIN B12: No results found for: [id number] No results found for: PHENYTOIN, PHENOBARB, VALPROATE, CBMZ No components found for: TOPIRA @RESULTINGLABINFO@ No results found for: LEVETIRACETA, FERRITIN, CRP, SUKHDEV, ANCA No results found for: REGLA, IMMUNOGLOBUL, OLIGOBANDS No results found for: LPM13NK, HEPCAB No results found for: CRP, ANATITER, ANCA FERRITIN: No results found for: FERRITIN ---- US NON OB TRANSVAGINAL Narrative: Gynecological Report (Signed Final 01/07/2021 01:43 pm) Patient Info ID #: [id number] : [id number] (35 yrs)(F) Name: JOSSE WAYNE Visit Date: 01/06/2021 01:12 pm Performed By Attending: Yessi Location: [facility] MICROBIOLOGIST [facility] [place] Performed By: Bel Lemos Visit Type: [facility] MICROBIOLOGIST RDMS Referred By: YESSI MUNOZ Service(s) Provided Mud Car Worker Transvaginal 85314 Indications Polycystic ovarian syndrome E28.2 Ovarian cyst (right) N83.201 LMP 01/03/2021 TV OUTSIDE PRODUCTION INSPECTOR ultrasound Technique/Scan Quality Technique: Transvaginal Approach Comparison [...] 01/06/2021. *Ultrasound cannot detect all pelvic or OUTSIDE PRODUCTION INSPECTOR abnormalities and normal findings cannot guarantee the [...] @TDNR@ at @NOWNR@ documented in this encounter [facility] 06-21-2023 Instructions FRANCO Cota CNP - 06/21/2023 9:00 AM EDT Continue Keppra 1000mg twice daily Check level Follow up in April documented in this encounter [facility] 05-10-2023 History of Present [...] for the last year. She sees a pharmaceutical sales so will follow up at [facility]. Surjit Tidwell MD documented in this encounter [facility] 04-26-2023 History of Present illness Narrative This note was created using Store[employer]. Subjective Josse Wayne is a 37 year old female. HPI 37-year-old female presents for sinus congestion, sinus pressure, cough x 2 weeks. Patient states that she started getting sick at the beginning of April with nasal congestion, and cough. She states that she now has worsening sinus pressure. She is coughing up some phlegm. States she has been taking [id number] cough and cold medications with minimal improvement. [...] evaluation. ERVIN Banda documented in this encounter [facility] 04-18-2023 Telephone encounter Note Last ov- 07/08/22 Next ov- 07/11/23 [facility] 04-18-2023 Miscellaneous Notes Last ov- 07/08/22 Next ov- 07/11/23 documented in this encounter [facility] 02-14-2023 History of Present illness Narrative POPULATION HEALTH NAVIGATION OUTREACH Action/FYI February 14, 2023 [place] Attribution Member- Chart review- Dejan Sousa [facility] Annual Wellness A1C- Per [place] Flu shot Aubrie Rich MA Patient Identified by Name and : NO Outreach Outcome/Action Unable to reach patient: Left message Did you use a PCP flex slot to schedule this appointment? N/A Reason for Outreach Care Gap or Scheduling/Wellness visits Payer: Payor: J[employer]ANY [employer] AND [employer]ARA [employer] / Plan: ANTHEM MEDIBLUE HMO / Product Type: HMO / Care Gap Reviewed:: Annual Wellness visit HBA1C Flu Vaccine Reminder: Reminder note to check Health Maintenance for items below Health Maintenance items due: Influenza Vaccine(1) due on 11/11/2022 Navigation Signature: Aubrie Rich MA February 14, 2023 1:46 PM documented in this encounter [facility] 01-06-2023 Note HNO ID: [id number] Author: Nita Falk Service: ? Author Type: ? Type: Progress Notes Filed: 01/06/2023 4:08 PM Note Text: POPULATION HEALTH NAVIGATION OUTREACH Action/ Patient Identified by Name and : YES, [...] Scheduling/Wellness visits Payer: Payor: JUANY DELEON AND [employer] SHAHRZAD / Plan: ANTHEM MEDIBLUE HMO / Product Type: HMO / Care Gap Reviewed:: Annual Wellness visit Diabetic Eye Exam HBA1C Navigation Signature: Nita Falk January 06, 2023 4:03 PM [facility] 01-02-2023 Note HNO ID: [id number] Author: Nita Falk Service: ? Author Type: [...] January 02, 2023 2:20 PM [facility] 01-02-2023 Note Patient Outreach (AG FAMPLE) JOSSE WAYNE ([id number]) 1985 F Date Time Provider Department 01/02/23 NITA FALK During your visit today, we recorded the following information about you: Nita Falk 01/02/2023 2:23 PM Signed POPULATION HEALTH NAVIGATION OUTREACH Action/FYI Patient Identified by Name and : YES, via phone Outreach Outcome/Action Unable to reach patient: Left message Reason for Outreach Care Gap or Scheduling/Wellness visits Payer: Payor: JUANY SHARA [employer] AND [employer] SHIELD / Plan: ANTHEM MEDIBLUE HMO / [...] Gap or Scheduling/Wellness visits Payer: Payor: J[employer]ANY [employer] AND [employer] / Plan: JUANY BEAULIEU HMO / Product Type: HMO / Care Gap Reviewed:: Annual Wellness visit Diabetic Eye Exam HBA1C Navigation Signature: Nita Falk January 06, 2023 4:03 PM Allergies As of Date: 01/02/2023 Noted Allergy Reaction PHENOBARBITAL 09/12/2006 2 - Rash Date Reviewed: 03/02/2022 Reviewed by: Gabe Pierre APRN.SPECIAL EVENTS ASSISTANT - Fully Assessed Reason for Visit: Population [...] by NITA FALK on 01/02/23 [facility] 11-29-2022 Telephone encounter Note Last ov- 07/08/22 Next ov- 07/11/23 [facility] 11-29-2022 Miscellaneous Notes Last ov- 07/08/22 Next ov- 07/11/23 documented in this encounter [facility] 09-05-2022 History of Present illness Narrative Josse Wayne is identified through a medication adherence outreach initiative based on pharmacy claims data from [place] (insurer) for Non-insulin DM medication(s). Patient is [...] lvm Chantel Rushing documented in this encounter [facility] 07-22-2022 History of Present illness Narrative Josse Wayne is identified through a medication adherence outreach initiative based on pharmacy claims data from [employer] (insurer) for Non-insulin DM medication(s). Patient is [...] and status) - Unable to reach PT LINSEY Mcgarry documented in this encounter [facility] 07-15-2022 Telephone encounter Note Message released to patient as written. Patient's further questions if applicable: No Were all questions from office addressed or relayed to the patient from encounter: Yes [facility] 07-15-2022 Miscellaneous Notes Message released to patient as written. Patient's further questions if applicable: No Were all questions from office addressed or relayed to the patient from encounter: Yes Lm for patient to call the office back, please let her know we did receive the Levetiracetam levels from [facility]. Lm for patient to call the office back, please let her know we did receive the Levetiracetam levels from [facility]. Name of caller: Josse Contact phone number: [phone] Relationship to Patient: patient Provider: ALEJANDRO Robertson Practice: [facility] Chief Complaint/Reason for Call: Patient would like [...] their call: Yes documented in this encounter [facility] 07-15-2022 Telephone encounter Note Lm for patient to call the office back, please let her know we did receive the Levetiracetam levels from [facility]. [facility] 07-14-2022 Telephone encounter Note Lm for patient to call the office back, please let her know we did receive the Levetiracetam levels from [facility]. [facility] 07-13-2022 Telephone encounter Note Name of caller: Josse Contact phone number: [phone] Relationship to Patient: patient Provider: ALEJANDRO Robertson Practice: [facility] Chief Complaint/Reason for Call: Patient would like to know if the office received her lab work results from 07/11/22. She states she would like to know as there has been problem with the office receiving her lab work results. Please advise. Best time of day caller can be reached: any Patient advised that office/PCP has 24-48 business hours to return their call: Yes [facility] 07-13-2022 Telephone encounter Note Images from the original note were not included. [facility] 07-13-2022 Miscellaneous Notes Images from the original note were not included. documented in this encounter [facility] 07-08-2022 History of Present [...] 10/28/2020 VITAMIN B12: No results found for: [id number] No results found for: PHENYTOIN, PHENOBARB, VALPROATE, CBMZ No components found for: TOPIRA @RESULTINGLABINFO@ No results found for: LEVETIRACETA, FERRITIN, CRP, SUKHDEV, ANCA No results found for: REGLA, IMMUNOGLOBUL, OLIGOBANDS No results found for: MLR85UA, HEPCAB No results found for: CRP, ANATITER, ANCA, ANCA FERRITIN: No results found for: FERRITIN ---- US NON OB TRANSVAGINAL Narrative: Gynecological Report (Signed Final 01/07/2021 01:43 pm) Patient Info ID #: [id number] : [id number] (35 yrs)(F) Name: JOSSE WAYNE Visit Date: 01/06/2021 01:12 pm Performed By Attending: Yessi Location: [facility] [place] Performed By: Bel Lemos Visit Type: [facility] RDMS Referred By: YESSI MUNOZ Service(s) Provided Mud Car Worker Transvaginal [id number] Indications Polycystic ovarian syndrome E28.2 Ovarian cyst (right) N83.201 LMP 01/03/2021 TV OUTSIDE PRODUCTION INSPECTOR ultrasound Technique/Scan Quality Technique: Transvaginal Approach Comparison 11/05/2020 History ------- Age: 35 LMP: 10/24/21 Day Of Cycle: 4 Menses: Irregular Hx [...] 01/06/2021. *Ultrasound cannot detect all pelvic or OUTSIDE PRODUCTION INSPECTOR abnormalities and normal findings cannot guarantee the [...] @TDNR@ at @NOWNR@ documented in this encounter [facility] 07-08-2022 Instructions FRANCO Cota CNP - 07/08/2022 1:30 PM EDT Continue Keppra 1000mg twice daily (I sent new script for 1000mg tabs-so take 1 tab twice daily) Check level in am PRIOR to am dosing documented in this encounter [facility] 07-01-2022 History of Present illness Narrative Josse Wayne is identified through a medication adherence outreach initiative based on pharmacy claims data from [employer] (insurer) for Non-insulin DM medication(s). Patient is [...] Yesica Wilder Pharm-T documented in this encounter [facility] 06-07-2022 History of Present illness Narrative CC: [...] occur. Patient agreeable to treatment plan. Senait Gandhi APRN.CNP documented in this encounter [facility] 04-20-2022 Telephone encounter Note LM for pt to contact billing dept @ [phone] & to call the [facility] back if needed [employer] [facility] 04-20-2022 Miscellaneous Notes LM for pt to contact billing dept @ [phone] & to call the ofc back if needed Noted! Pt needs to speak with the billing dept. This is not something we handle. Has this been resolved? Please advise Name of caller: Josse Wayne Contact phone number: [phone] Relationship to Patient: patient Provider: Dr Munoz Practice: [facility] Chief Complaint/Reason for Call: Pt states that [...] their call: Yes documented in this encounter [facility] 04-08-2022 Telephone encounter Note Noted! Pt needs to speak with the billing dept. This is not something we handle. [facility] 04-08-2022 Telephone encounter Note Has this been resolved? Please advise [facility] 03-25-2022 Telephone encounter Note Name of caller: Josse Wayne Contact phone number: [phone] Relationship to Patient: patient Provider: Dr Munoz Practice: [facility] Chief Complaint/Reason for Call: Pt states that [...] business hours to return their call: Yes [facility] 03-02-2022 Note HNO ID: [id number] Author: Gabe Pierre APRN.SPECIAL EVENTS ASSISTANT Service: ? Author Type: Nurse Practitioner Type: Progress Notes Filed: 03/02/2022 3:39 PM Note Text: This note was created using StoreFlixriter. Subjective Josse Wayne is a 36 year old female here today to establish care. PMH PTSD, PCOS, obesity, hirsutism, epilepsy. Former PCP Dr Vazquez in [place]. Anxiety, Depression, PTSD: chronic, stable. She is seeing psychiatrist at [facility]. She is taking Celexa 30 mg daily, [...] She is seeing Dr Anderson Pedroza in [place]. Reports last seizure 2012. Reports her keppra [...] and COVID vaccines. 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 ALLERGIES Allergen Reactions Phenobarbital Rash Current [...] Site: (more content not included)... [facility] 03-02-2022 History of Present illness Narrative Images from the original note were not included. This note was created using [employer]. Subjective Josse Wayne is a 36 year old female here today to establish care. PMH PTSD, PCOS, obesity, hirsutism, epilepsy. Former PCP Dr Vazquez in [place]. Anxiety, Depression, PTSD: chronic, stable. She is seeing psychiatrist at [facility]. She is taking Celexa 30 mg daily, [...] She is seeing Dr Anderson Pedroza in [place]. Reports last seizure 2012. Reports her keppra [...] and COVID vaccines. 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 ALLERGIES Allergen Reactions Phenobarbital Rash Current [...] diet of 1000 mg/day for under 50, 7040-9791 mg/day for 50+ - Discussed need and [...] stable. - continue metformin and management with OUTSIDE PRODUCTION INSPECTOR 5. 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 Continue management with Neuro Gabe Pierre APRN.SPECIAL EVENTS ASSISTANT documented in this encounter [facility] 02-28-2022 Miscellaneous Notes Letter faxed Blessing Amezcua [...] to office for appt on 03/02/22 fax [phone] jojo Was Patient Referred to 1/Seek Emergency Treatment (Y/N): n Did Patient Agree (Y/N): n Was An Attempt Made To Transfer The Patient To The Office (Y/N): n Were You Able To Reach Someone At The Office (Y/N): n If Yes - Patient Was Transferred To (Caregivers Name): n If No - Which [facility] Leadership Assistant Gm Of Content & Delivery Did You Speak With Regarding This Patient: n Was an appointment scheduled (Y/N): n Reason patient was requesting visit (RFV/signs and symptoms/diagnosis) : na Person calling if other than patient: na Return call to if other than patient: na Best contact number: [phone] Thank you, Jessica Monson February 24, 2022 1:09 PM documented in this encounter [facility] 02-28-2022 Miscellaneous Notes Letter faxed Blessing Amezcua MA ----- Message from Tisha Martinez sent at 02/24/2022 1:28 PM EST ----- Regarding: FW: new pt ----- Message ----- From: Jessica Monson Sent: 02/24/2022 1:11 PM EST To: James [facility] Triage Pool Subject: new pt [...] to office for appt on 03/02/22 fax [phone] jojo Was Patient Referred to 1/Seek Emergency Treatment (Y/N): n Did Patient Agree (Y/N): n Was An Attempt Made To Transfer The Patient To The Office (Y/N): n Were You Able To Reach Someone At The Office (Y/N): n If Yes - Patient Was Transferred To (Caregivers Name): n If No - Which [facility] Leadership Assistant Gm Of Content & Delivery Did You Speak With Regarding This Patient: n Was an appointment scheduled (Y/N): n Reason patient was requesting visit (RFV/signs and symptoms/diagnosis) : na Person calling if other than patient: na Return call to if other than patient: na Best contact number: [phone] Thank you, Jessica Monson February 24, 2022 1:09 PM documented in this encounter [facility] 01-21-2022 History of Present illness Narrative SUBJECTIVE: [...] Intervention/Comfort measure: Heat documented in this encounter [facility] 09-28-2021 Miscellaneous Notes Pt returned call and was given below information. Carol Mae LPN Message left asking pt to call the office for test results. Carol Mae LPN Please let the pt know that her blood is negative for infection. Katerine Hanson APRN.CNP documented in this encounter [facility] 08-05-2021 History of Present illness Narrative POPULATION HEALTH NAVIGATION OUTREACH Action/FYI Patient returned my call Patient does not have a PCP at [facility] and does not want one. Patient would like the Population Health Navigation calls to end, she may sometimes use the [facility] walk in clinic or E.R. if needed but will not use outpatient providers at [facility]. Entered information into patient's demographics Pt identified [...] Care Gap or Scheduling/Wellness visits Payer: Payor: [employer] / Plan: [employer] HMO / Product Type: HMO / Care Gap Reviewed:: Annual Wellness visit Reminder: Reminder note to check Health Maintenance for items below Health Maintenance items due: COVID-19 VACCINE(1) Never done DEPRESSION SCREENING due on 01/29/2019 PAP TESTING due on 04/15/2021 HPV TESTING due on 04/15/2021 Message Sent to Practice: No Navigation Signature: Shoa Mathew MA August 05, 2021 8:06 AM documented in this encounter [facility] 07-09-2021 Instructions Bela Joseph APRN.ALEJANDRO - 07/09/2021 7:37 PM EDT ASSESSMENT/PLAN: 1. [...] Discussed expected course of illness Bela Joseph APRN.SPECIAL EVENTS ASSISTANT TEMPOROMANDIBULAR JOINT (TMJ) PAIN: Your exam shows [...] within one week. documented in this encounter [facility] 07-09-2021 History of Present illness Narrative Subjective [...] ear normal. Nose: Nose normal. Mouth/Throat: Lips: [place]. Mouth: Mucous membranes are moist. Dentition: Normal [...] Discussed expected course of illness Bela Joseph APRN.SPECIAL EVENTS ASSISTANT documented in this encounter [facility] 10-20-2020 History of Present illness Narrative Radiology [...] 2020 5:54 PM documented in this encounter [facility] 07-13-2015 History of Past i llness Narrative [...] of this encounter (statuses as of 07/09/2021) [facility] History of Past illness Narrative* Problem Noted [...] of this encounter (statuses as of 08/05/2021) [facility] History of Past illness Narrative* Problem Noted [...] of this encounter (statuses as of 09/28/2021) [facility] History of Past illness Narrative* Problem Noted [...] of this encounter (statuses as of 01/21/2022) [facility] History of Past illness Narrative* Problem Noted [...] of this encounter (statuses as of 02/28/2022) [facility] History of Past illness Narrative* Problem Noted [...] of this encounter (statuses as of 03/02/2022) [facility] History of Past illness Narrative* Problem Noted [...] of this encounter (statuses as of 06/07/2022) [facility] History of Past illness Narrative* Problem Noted [...] of this encounter (statuses as of 07/01/2022) [facility] History of Past illness Narrative* Problem Noted [...] of this encounter (statuses as of 07/22/2022) [facility] History of Past illness Narrative* Problem Noted [...] of this encounter (statuses as of 09/05/2022) [facility] History of Past illness Narrative* Problem Noted [...] of this encounter (statuses as of 02/14/2023) [facility] History of Past illness Narrative* Problem Noted [...] of this encounter (statuses as of 04/26/2023) [facility] History of Past illness Narrative* Problem Noted [...] of this encounter (statuses as of 05/10/2023) [facility] note* Diagnosis PCOS (polycystic ovarian syndrome) Polycystic ovaries Acute vaginitis Vaginitis and vulvovaginitis, unspecified Other disorders of pituitary gland (HCC) Other ovarian dysfunction Other ovarian dysfunction [facility]* Diagnosis Hot flashes Symptomatic menopausal or female climacteric states documented in this encounter [facility] Work Phone: Evaluation note* Diagnosis TMJ pain dysfunction syndrome- Primary Other specified temporomandibular joint disorders documented in this encounter [facility] noteNo assessment information availableWFlower Hospital Work Phone: Evaluation note* Diagnosis Contusion of right lower extremity, subsequent encounter- Primary Prepatellar bursitis, right knee documented in this encounter [facility] note* Diagnosis Encounter for medical examination to establish care- Primary Rash of face Rash and other nonspecific skin eruption Moderate episode of recurrent major depressive disorder (HCC) PCOS (polycystic ovarian syndrome) Polycystic ovaries 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 documented in this encounter [facility] note* Diagnosis Rhinosinusitis- Primary Unspecified sinusitis (chronic) documented in this encounter [facility] note* Diagnosis 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, not intractable, without status epilepticus (HCC)- Primary documented in this encounter [facility] note* Diagnosis Onset Date Resolution Status Yeast dermatitis acute [facility] Work Phone: Evaluation note* Diagnosis Sinobronchitis- Primary Unspecified sinusitis (chronic) Acute otitis media, left Unspecified otitis media documented in this encounter [facility] note* Diagnosis Sore throat- Primary Acute pharyngitis Papule of skin documented in this encounter [facility] note* Diagnosis 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, not intractable, without status epilepticus (HCC)- Primary documented in this encounter [facility] note* Diagnosis Right knee pain, unspecified chronicity- Primary documented in this encounter [facility] note* Diagnosis Osteoarthritis of right knee, unspecified osteoarthritis type- Primary documented in this encounter [facility] note* Diagnosis Right knee pain, unspecified chronicity documented in this encounter [facility] note* Diagnosis Primary osteoarthritis of both knees- Primary Primary localized osteoarthrosis, lower leg documented in this encounter [facility] note* Diagnosis Right knee injury, initial encounter documented in this encounter [facility] note* Diagnosis Excessive bleeding in premenopausal period- Primary documented in this encounter [facility] note* Diagnosis Excessive bleeding in premenopausal period- Primary Excessive bleeding in premenopausal period documented in this encounter [facility] note* Diagnosis Excessive bleeding in the premenopausal period Premenopausal menorrhagia documented in this encounter [facility] note* Diagnosis PCOS (polycystic ovarian syndrome)- Primary Polycystic ovaries Endometrial hyperplasia Endometrial hyperplasia, unspecified documented in this encounter [facility] note* Diagnosis PCOS (polycystic ovarian syndrome) Polycystic ovaries Endometrial hyperplasia, unspecified documented in this encounter [facility] note* Diagnosis PCOS (polycystic ovarian syndrome) Polycystic ovaries Elevated testosterone level in female Endometrial hyperplasia, unspecified documented in this encounter [facility] note* Diagnosis PCOS (polycystic ovarian syndrome) Polycystic ovaries Elevated testosterone level in female Endometrial hyperplasia, unspecified documented in this encounter [facility] note* Diagnosis 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, not intractable, without status epilepticus (HCC)- Primary Endometrial hyperplasia, unspecified documented in this encounter [facility] note* Diagnosis Class 3 severe obesity due to excess calories without serious comorbidity with body mass index (BMI) of 50.0 to 59.9 in adult (HCC)- Primary PCOS (polycystic ovarian syndrome) Polycystic ovaries documented in this encounter [facility] note* Diagnosis 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- Primary documented in this encounter [facility] note* Diagnosis Abnormal uterine bleeding (AUB)- Primary Menorrhagia with irregular cycle Excessive or frequent menstruation Endometrial hyperplasia Endometrial hyperplasia, unspecified * Assessment & Plan Note - Charlette Bryant APRN.CNM - 09/12/2024 1:02 PM EDT Associated Problem(s): Endometrial hyperplasia [facility] Diagnosis Abnormal uterine bleeding (AUB)- Primary Menorrhagia with irregular cycle Excessive or frequent menstruation Endometrial hyperplasia Endometrial hyperplasia, unspecified PCOS (polycystic ovarian syndrome)- Primary Polycystic ovaries [facility] Additional Instructions Follow up with your counselor, psychiatrist, and neurologist as scheduled. [facility] Work Phone: Hospital Discharge instructions* Attachments The following attachments cannot be sent through Care Everywhere. * Dilation and Curettage (D and C) (Cymraes) [facility] Diagnostic Procedure Only (Routine) - Pending Review Specialty Diagnoses / Procedures Referred By Contac duncan Referred To Contact XR IMAGING Diagnoses Right knee pain, unspecified chronicity Procedures XR KNEE GENERAL 4V AP BOTH/PA BOTH/LAT/MERC RIGHT RADIOLOGIC EXAM KNEE COMPLETE 4/MORE VIEWS Anthony Garvin V, DO [address] [place] [address] [place] [address] Referral ID Status Reason Start Date Expiration Date Visits Requested Visits Authorized [id number] Pending Review Auto-Generat ed Referral 08/15/2023 09/13/2024 1 1 [facility] for referral (narrative)* Diagnostic Procedure Only (Urgent) - Closed Specialty Diagnoses / Procedures Referred By Robson song Referred To Contact XR IMAGING Diagnoses Right knee injury, initial encounter Procedures XR KNEE GENERAL 4V AP BOTH/PA BOTH/LAT/MERC RT KNEE AP-WGT/LAT/MERCHANT Luisa Khoury PA-C [address] [place] [address] [place] [address] Referral ID Status Reason Start Date Expiration Date V isits Requested Visits Authorized [id number] Closed Auto-Generate d Referral 10/20/2020 11/19/2021 1 1 [facility] for referral (narrative)No reason for referral information availableWFlower Hospital Work Phone: Reason for visit Narrative* Diagnostic Procedure Only (Routine) - Closed Specialty Diagnoses / Procedures [facility]erred To Contact XR IMAGING Diagnoses Right knee pain, unspecified chronicity Procedures XR KNEE GENERAL 4V AP BOTH/PA BOTH/LAT/MERC RIGHT RADIOLOGIC EXAM KNEE COMPLETE 4/MORE VIEWS Anthony Garvin V, DO [address] [place] [address] [place] [address] Referral ID Status Reason Start Date Expiration Date V isi Requested Visits Authorized [id number] Closed Auto-Generate d Referral 08/15/2023 09/13/2024 1 1 [facility] for visit Narrative* Diagnostic Procedure Only (Urgent) - Closed Specialty Diagnoses / Procedures [facility] Referred To Contact XR IMAGING Diagnoses Right knee injury, initial encounter Procedures XR KNEE GENERAL 4V AP BOTH/PA BOTH/LAT/MERC RT KNEE AP-WGT/LAT/MERCHANT Luisa Khoury, PA-C [address] [place] [address] [place] [address] Referral ID Status Reason Start Date Expiration Date V isits Requested Visits Authorized [id number] Closed Auto-Generate d Referral 10/20/2020 11/19/2021 1 1 [facility] for visit Narrative* Auth/Cert (Routine) Specialty Diagnoses / Procedures [facility] Referred To Contact Diagnoses Excessive bleeding in the premenopausal period Procedures DC HYSTEROSCOPY BX ENDOMETRIUM&/POLYPC W/WO D&C HYSTEROSCOPY DILATION AND CURETTAGE Yessi Munoz MD [facility] [address] [place] [address] Phone: tel: fax: Referral ID Status Reason Start Date Expiration Date Visits Re quested Visits Authorized [id number] 02/25/2024 1 1 [facility] Summary Purpose Family History No Family History Records Found Relationship Condition Age at Onset Recorded Date/T dajuan mother Cardiac disease Unknown Advance Directives No Advanced Directives Records FoundDocuments on File Type Date Recorded 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 Web 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 anation ACP-Advance Directive ACP-Power of Division Officer [employer]apons Department Latest Code Status on File Code Status Date Activated Date Inactivated Comments Full Code 11/01/2016 11:14 PM 11/07/2016 10:23 PM Documents on File Type Date Recorded 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 Web 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 anation Advance Directive(s) 01/11/2018 4:04 PM Advance Directive Response Recorded Date/ Time Advance Directives No September 18 8 10:32am Living Will No August 02, 2021 9 :40pm Power of Division Officer Weapons Department No August 02, 2021 9:40pm Advance Directive Response Recorded Date/ Time Advance Directives No September 18 8 10:32am Living Will No October 18, 2021 2:58pm Power of Division Officer Weapons Department No October 18 2:58pm Advance Directive Response Recorded Date/ Time Advance Directives No September 18 10:32am Living Will No November 03 9:52pm Power of Division Officer Weapons Department No November 03 022 9:52pm Advance Directive Response Recorded Date/ Time Advance Directives No September 18 10:32am Living Will Yes January 09 10:33pm Power of Division Officer Weapons Department No January 09, 2022 10:33pm Documents on File Type Date Recorded 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 Web 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 Advance Directive(s) 01/11/2018 4:04 PM Advance Directive Response Recorded Date/ Time Advance Directives No December 15, 2022 4:11pm Living Will No February 06, 023 10:11pm Power of Division Officer Weapons Department No February 06, 2023 10:11pm Date Activated Date Inactivated Comments 03/08/2024 12:57 PM 03/08/2024 7:10 PM Date Activated Date Inactivated Comments 03/08/2024 12:57 PM 03/08/2024 7:10 PM Date Activated Date Inactivated Comments 06/13/2024 10:37 PM 06/15/2024 4:38 PM Date Activated Date Inactivated Comments 03/08/2024 12:57 PM 03/08/2024 7:10 PM Advance Directive Response Recorded Date/ Time Advance Directives No December 15, 2022 5:11pm Chief Complaint and Reason for Visit Chief Complaint anxiety Chief Complaint anxiety SUICIDAL Chief Complaint anxiety SUICIDAL anxiety Chief Complaint SUICIDAL anxiety SEIZURE Chief Complaint RASH ON BACK ANXIETY Reason for Visit Yeast dermatitis Chief Complaint Admit Date COUGH, NAUSEA, HEADACHE, CONGESTION 2024 6:54am Medications Administered Section Inactive Administered Medications - [...] of face Procedures CONSULT TO DERMATOLOGY OFFICE/OUTPATIENT [facility] 60-74 MINUTES Gabe Pierre, 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 [address] [place] [address] Patients Transporter, [facility] [address] [facility], [address] [place] [address] Referral ID Status Reason Start Date Expiration Date Visits Requested Visits Authorized [id number] Pending Review PCP Requested Referral 2 03/02/2023 1 1 Additional Source Comments INFORMATION SOURCE (unrecogn ized section and content) DATE CREATED AUTHOR 04/24/2018 [facility] DATE CREATED AUTHOR AUTHOR'S ORGANIZ ATION 09/12/2018 [facility] DATE CREATED AUTHOR AUTHOR'S ORGANIZ ATION 01/01/2021 [facility] DATE CREATED AUTHOR AUTHOR'S ORGANIZ ATION 01/08/2023 [facility] DATE CREATED AUTHOR AUTHOR'S ORGANIZ ATION 11/04/2024 [facility] DATE CREATED AUTHOR AUTHOR'S ORGANIZ ATION 11/22/2024 [facility] DATE CREATED AUTHOR AUTHOR'S ORGANIZ ATION 11/30/2024 [facility] Source Comments (unrecognize d section and content) In the event this informatio n is protected by the Federal Confidentiality of Alcohol and Drug Abuse Patient Records regulations: The Federal rules restrict any use of the information to criminally investigate or prosecute any alcohol or drug abuse patient.[facility] the event this information is protected by the Federal Confidentiality of Alcohol and Drug Abuse Patient Records regulations: The Federal rules restrict any use of the information to criminally investigate or prosecute any alcohol or drug abuse patient.[facility] the event this information is protected by the Federal Confidentiality of Alcohol and Drug Abuse Patient Records regulations: The Federal rules restrict any use of the information to criminally investigate or prosecute any alcohol or drug abuse patient.[facility] the event this information is protected by the Federal Confidentiality of Alcohol and Drug Abuse Patient Records regulations: The Federal rules restrict any use of the information to criminally investigate or prosecute any alcohol or drug abuse patient.[facility] Center[facility] the event this information is protected by the Federal Confidentiality of Alcohol and Drug Abuse Patient Records regulations: The Federal rules restrict any use of the information to criminally investigate or prosecute any alcohol or drug abuse patient.[facility] Center[facility] the event this information is protected by the Federal Confidentiality of Alcohol and Drug Abuse Patient Records regulations: The Federal rules restrict any use of the information to criminally investigate or prosecute any alcohol or drug abuse patient.[facility] Center[facility] the event this information is protected by the Federal Confidentiality of Alcohol and Drug Abuse Patient Records regulations: The Federal rules restrict any use of the information to criminally investigate or prosecute any alcohol or drug abuse patient.[facility] Center[facility] the event this information is protected by the Federal Confidentiality of Alcohol and Drug Abuse Patient Records regulations: The Federal rules restrict any use of the information to criminally investigate or prosecute any alcohol or drug abuse patient.[facility] Center[facility] the event this information is protected by the Federal Confidentiality of Alcohol and Drug Abuse Patient Records regulations: The Federal rules restrict any use of the information to criminally investigate or prosecute any alcohol or drug abuse patient.[facility] Center[facility] the event this information is protected by the Federal Confidentiality of Alcohol and Drug Abuse Patient Records regulations: The Federal rules restrict any use of the information to criminally investigate or prosecute any alcohol or drug abuse patient.[facility] Center[facility] the event this information is protected by the Federal Confidentiality of Alcohol and Drug Abuse Patient Records regulations: The Federal rules restrict any use of the information to criminally investigate or prosecute any alcohol or drug abuse patient.[facility] Center[facility] the event this information is protected by the Federal Confidentiality of Alcohol and Drug Abuse Patient Records regulations: The Federal rules restrict any use of the information to criminally investigate or prosecute any alcohol or drug abuse patient.[facility] Center[facility] the event this information is protected by the Federal Confidentiality of Alcohol and Drug Abuse Patient Records regulations: The Federal rules restrict any use of the information to criminally investigate or prosecute any alcohol or drug abuse patient.[facility] Center[facility] the event this information is protected by the Federal Confidentiality of Alcohol and Drug Abuse Patient Records regulations: The Federal rules restrict any use of the information to criminally investigate or prosecute any alcohol or drug abuse patient.[facility] Center[facility] the event this information is protected by the Federal Confidentiality of Alcohol and Drug Abuse Patient Records regulations: The Federal rules restrict any use of the information to criminally investigate or prosecute any alcohol or drug abuse patient.[facility] Center[facility] the event this information is protected by the Federal Confidentiality of Alcohol and Drug Abuse Patient Records regulations: The Federal rules restrict any use of the information to criminally investigate or prosecute any alcohol or drug abuse patient.[facility] CenterIn the event this information is protected by the Federal Confidentiality of Alcohol and Drug Abuse Patient Records regulations: The Federal rules restrict any use of the information to criminally investigate or prosecute any alcohol or drug abuse patient.[facility] CenterIn the event this information is protected by the Federal Confidentiality of Alcohol and Drug Abuse Patient Records regulations: The Federal rules restrict any use of the information to criminally investigate or prosecute any alcohol or drug abuse patient.[facility] CenterIn the event this information is protected by the Federal Confidentiality of Alcohol and Drug Abuse Patient Records regulations: The Federal rules restrict any use of the information to criminally investigate or prosecute any alcohol or drug abuse patient.[facility] CenterIn the event this information is protected by the Federal Confidentiality of Alcohol and Drug Abuse Patient Records regulations: The Federal rules restrict any use of the information to criminally investigate or prosecute any alcohol or drug abuse patient.[facility] CenterIn the event this information is protected by the Federal Confidentiality of Alcohol and Drug Abuse Patient Records regulations: The Federal rules restrict any use of the information to criminally investigate or prosecute any alcohol or drug abuse patient.[facility] CenterIn the event this information is protected by the Federal Confidentiality of Alcohol and Drug Abuse Patient Records regulations: The Federal rules restrict any use of the information to criminally investigate or prosecute any alcohol or drug abuse patient.[facility] CenterIn the event this information is protected by the Federal Confidentiality of Alcohol and Drug Abuse Patient Records regulations: The Federal rules restrict any use of the information to criminally investigate or prosecute any alcohol or drug abuse patient.[facility] CenterIn the event this information is protected by the Federal Confidentiality of Alcohol and Drug Abuse Patient Records regulations: The Federal rules restrict any use of the information to criminally investigate or prosecute any alcohol or drug abuse patient.[facility] CenterIn the event this information is protected by the Federal Confidentiality of Alcohol and Drug Abuse Patient Records regulations: The Federal rules restrict any use of the information to criminally investigate or prosecute any alcohol or drug abuse patient.[facility] CenterIn the event this information is protected by the Federal Confidentiality of Alcohol and Drug Abuse Patient Records regulations: The Federal rules restrict any use of the information to criminally investigate or prosecute any alcohol or drug abuse patient.[facility] CenterIn the event this information is protected by the Federal Confidentiality of Alcohol and Drug Abuse Patient Records regulations: The Federal rules restrict any use of the information to criminally investigate or prosecute any alcohol or drug abuse patient.[facility] CenterIn the event this information is protected by the Federal Confidentiality of Alcohol and Drug Abuse Patient Records regulations: The Federal rules restrict any use of the information to criminally investigate or prosecute any alcohol or drug abuse patient.[facility] Reason for Visit (unrecogniz ed section and content) Reason Comments Pain Pt reported jaw, (LT ) ear pain rated 8, x2 weeks Reason Onset Date Comments Population Health Navigation Outreach 08/05/2021 [place] Attribution Care Gaps Reason Comments Results [...] Date Comments Population Health Navigation Outreach 02/14/2023 [place] Attribution Member- Chart review Reason Comments [...] Reason Onset Date Comments Cancelled Appointment 03/25/2022 01.18.23 / insurance issues Reason Onset Date Comments Other 02/26/2024 Surgery scheduli [facility] office Reason Comments Post-op Visit 2 week post op hyste roscopy DC on 03/08 Reason Onset Date Comments Other 03/28/2024 Referral Reason Onset Date Comments Other 04/18/2024 Pt calling needs referral sent to [facility] for endocrinology phone number is [phone].Please send referral this is closer to her homePlease advise Reason Onset Date Comments Other 04/18/2024 Pt calling needs referral sent to [facility] for endocrinology phone number is [phone].Please send referral this is closer to her homePlease advise Referral 04/18/2024 Patient states s he could not get into [facility] and would like the order sent to Dr. Ziyad Harrell at [facility] [address] Specialty [phone] Reason Comments Consult PCOS Specialty Diagnoses / Procedures Referred By Robson t Referred To Contact [facility] Diagnoses PCOS (polycystic ovarian syndrome) Elevated testosterone level in female Procedures OFFICE/OUTPATIENT NEW HIGH MDM 60 MINUTES [id number] (SNOMED CT) - AMB REFERRAL TO ENDOCRINOLOGY Yessi Munoz MD [address] [place] [address] Phone: tel: fax: Ziyad Harrell MD [address] [place] [address] Phone: tel:[phone] fax:[phone] Referral ID Status Reason Start Date Expiration Date V isits Requested Visits Authorized [id number] Pending Review 04/22/2024 04/22/2025 1 1 Reason Onset Date Comments Surgery Scheduling 06/12/2024 Reason Comments Results, Lab Reason Comments Appointment Disgruntled Patient Reason Onset Date Comments Surgery Scheduling 11/12/2024 Patient is ca lling back to reschedule Surgery. Please call her back to discuss. Thank you. Reason Comments Non-Chemotherapy Treatment Goals (unrecognized section and content) Goals may [...] Care Teams (unrecognized sec tion and content) Assistant Gm Of Content & Delivery Relationship Specialty Start Date End Date Gabe Pierre, 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 [address], [place] [id number] PCP - General Internal Medicine 03/03/22 Assistant Gm Of Content & Delivery Relationship Specialty Start Date End Date Gabe Pierre APRN.SPECIAL EVENTS ASSISTANT [address], [place] [id number] PCP - General Internal Medicine 03/03/22 Assistant Gm Of Content & Delivery Relationship Specialty Start Date End Date Carol Sharp DO [address] [place] [phone] PCP - General Family Medicine 07/08/22 Assistant Gm Of Content & Delivery Relationship Specialty Start Date End Date Carol Sharp DO [address] [place] [phone] PCP - General Family Medicine 07/08/22 Assistant Gm Of Content & Delivery Relationship Specialty Start Date End Date Gabe Pierre, 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 [address], [place] [id number] PCP - General Internal Medicine 03/03/22 Assistant Gm Of Content & Delivery Relationship Specialty Start Date End Date Carol Sharp DO [address] [place] [address] PCP - General Family Medicine 07/08/22 Team Status: Active Member Role Status Dates Dr. Abdirashid Vazquez DO Family Provider Active Chantel Kinsey DO Primary Care Provider Active Team Status: Inactive Member Role Status Dates No Primary Care Physician Primary Care Provider, Refer ring Provider Active Gadiel MUELLER, PA Attending Provider Active Team Status: Inactive Member Role Status Dates Dr. Nita Duffy MD Emergency Provider Active Chantel Kinsey DO Primary Care Provider Active Assistant Gm Of Content & Delivery Relationship Specialty Start Date End Date Gabe Pierre, 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 [address], [place] [id number] PCP - General Internal Medicine 03/03/22 Assistant Gm Of Content & Delivery Relationship Specialty Start Date End Date Carol Sharp DO [address] [place] [address] PCP - General Family Medicine 07/08/22 Assistant Gm Of Content & Delivery Relationship Specialty Start Date End Date Gabe Pierre, 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 [facility] ANDREAS [place]O [place] [id number] PCP - General Internal Medicine 03/03/22 Assistant Gm Of Content & Delivery Relationship Specialty Start Date End Date CorbyerPalma araujo (Pss) PCP - General 05/10/23 Assistant Gm Of Content & Delivery Relationship Specialty Start Date End Date Carol Sharp DO [address] [place] [phone] PCP - General Family Medicine 07/08/22 Assistant Gm Of Content & Delivery Relationship Specialty Start Date End Date CorbyerPalma araujo (Pss) PCP - General 05/10/23 Assistant Gm Of Content & Delivery Relationship Specialty Start Date End Date WejefferPalma araujo (Pss) PCP - General 05/10/23 Assistant Gm Of Content & Delivery Relationship Specialty Start Date End Date WengerPalma araujo (Pss) PCP - General 05/10/23 Assistant Gm Of Content & Delivery Relationship Specialty Start Date End Date WengerPalma araujo (Pss) PCP - General 05/10/23 Assistant Gm Of Content & Delivery Relationship Specialty Start Date End Date WengerPalma aruajo (Pss) PCP - General 05/10/23 Assistant Gm Of Content & Delivery Relationship Specialty Start Date End Date Abdirashid Vazquez DO [address] [place] [address] PCP - General Family Medicine 01/02/18 01/02/21 Assistant Gm Of Content & Delivery Relationship Specialty Start Date End Date Carol Sharp DO [address] [place] [phone] PCP - General Family Medicine 07/08/22 Assistant Gm Of Content & Delivery Relationship Specialty Start Date End Date Carol Sharp DO [address] [place] [phone] PCP - General Family Medicine 07/08/22 Assistant Gm Of Content & Delivery Relationship Specialty Start Date End Date Carol Sharp DO [address] [place] [address] PCP - General Family Medicine 07/08/22 Assistant Gm Of Content & Delivery Relationship Specialty Start Date End Date VazquezAbdirashid walker Ilene [address] [place] [address] PCP - General 01/06/21 Assistant Gm Of Content & Delivery Relationship Specialty Start Date End Date Carol Sharp DO [address] [place] [phone] PCP - General Family Medicine 07/08/22 Assistant Gm Of Content & Delivery Relationship Specialty Start Date End Date Peter Maya MD [address] [place] [address] [address] [place] [address] PCP - General Family Medicine 02/28/24 Assistant Gm Of Content & Delivery Relationship Specialty Start Date End Date Peter Maya MD [address] [place] [address] [address] [place] [address] PCP - General Family Medicine 02/28/24 Assistant Gm Of Content & Delivery Relationship Specialty Start Date End Date Peter Maya MD [address] [place] [address] [address] [place] [address] PCP - General Family Medicine 02/28/24 Assistant Gm Of Content & Delivery Relationship Specialty Start Date End Date Peter Maya MD [address] [place] [address] [address] [place] [address] PCP - General Family Medicine 02/28/24 Assistant Gm Of Content & Delivery Relationship Specialty Start Date End Date Peter Maya MD [address] [facility] [address] [place] [address] PCP - General Family Medicine 02/28/24 Assistant Gm Of Content & Delivery Relationship Specialty Start Date End Date Peter Maya MD [address] [place] [address] [address] [place] [address] PCP - General Family Medicine 02/28/24 Assistant Gm Of Content & Delivery Relationship Specialty Start Date End Date Peter Maya MD [address] [facility] [address] [place] [address] PCP - General Family Medicine 02/28/24 Assistant Gm Of Content & Delivery Relationship Specialty Start Date End Date Peter Maya MD [address] [facility] [address] [place] [address] PCP - General Family Medicine 02/28/24 Assistant Gm Of Content & Delivery Relationship Specialty Start Date End Date Peter Maya MD [address] [place] [address] [address] [place] [address] PCP - General Family Medicine 02/28/24 Assistant Gm Of Content & Delivery Relationship Specialty Start Date End Date Peter Maya MD [address] [place] [address] [address] [place] [address] PCP - General Family Medicine 02/28/24 Assistant Gm Of Content & Delivery Relationship Specialty Start Date End Date Palma Neri PCP - General 05/10/23 Yessi Munoz MD [address] [place] [address] [address] [place] [address] Referring Obstetrics 04/23/24 Assistant Gm Of Content & Delivery Relationship Specialty Start Date End Date Peter Maya MD [address] [facility] [address] [place], [place] [address] PCP - General [facility] Medicine 02/28/24 Assistant Gm Of Content & Delivery Relationship Specialty Start Date End Date Peter Maya MD [address] [facility] [address] [place], [place] [address] PCP - General [facility] Medicine 02/28/24 Team Status: Active Member Role Status Dates Dr. Abdirashid Vazquez , Family Provider Active YA Sheridan Primary Care Provider Active Team Status: Inactive Member Role Status Dates Peter Maya MD Primary Care Provider Active St art: August 31, 2024 End: August 31, 2024 Jones MAURICE STUD SETTER-C Attending Provider Active S tart: August 31, 2024 End: August 31, 2024 Team Status: Active Member Role Status Dates YA Sheridan Primary Care Provider Active Start: September 03, 2024 YA Sheridan Attending Provider Active Start: September 03, 2024 Assistant Gm Of Content & Delivery Relationship Specialty Start Date End Date Yessi Munoz MD [address] [facility] [address] [place] [address] Referring Obstetrics 04/23/24 Rafia Bianchi APRN.CNP [address] [place] [address] Family Medicine 09/03/24 Team Status: Active Member Role/Relationship Status Dates Dr. Abdirashid Vazquez DO Family Provider Active YA Sheridan Primary Care Provider Active Team Status: Inactive Member Role/Relationship Status Dates Peter Maya MD Primary Care Provider Active St art: August 31, 2024 End: August 31, 2024 Jones MAURICE STUD SETTER-C Attending Provider Active S tart: August 31, 2024 End: August 31, 2024 Team Status: Inactive Member Role/Relationship Status Dates YA Sheridan Primary Care Provider Active Start: September 03, 2024 End: September 03, 2024 YA Sheridan Attending Provider Active Start: September 03, 2024 End: September 03, 2024 Assistant Gm Of Content & Delivery Relationship Specialty Start Date End Date Yessi Munoz MD [address] [facility] [address] [place] [address] Referring Obstetrics 04/23/24 Rafia Bianchi APRN.SPECIAL EVENTS ASSISTANT [address] [place] [address] [facility] 09/03/24 Assistant Gm Of Content & Delivery Relationship Specialty Start Date End Date Yessi Munoz MD [address] [facility] [address] [place], [place] [address] Referring Obstetrics 04/23/24 Rafia Bianchi APRN.SPECIAL EVENTS ASSISTANT [address] [place] [address] [facility] 09/03/24 Team Status: Inactive Member Role/Relationship Status Dates YA Sheridan Primary Care Provider Active Start: November 04, 2024 End: November 04, 2024 YA Sheridan Referring Provider Active Start: November 04, 2024 End: November 04, 2024 Ronnie MUELLER, PA Attending Provider Active Start: November 04, 2024 End: November 04, 2024 Assistant Gm Of Content & Delivery Relationship Specialty Start Date End Date Yessi Munoz MD [address] [facility] [address] [place] [address] Referring Obstetrics 04/23/24 Rafia Bianchi APRN.SPECIAL EVENTS ASSISTANT [address] [facility] [place] [address] Family Medicine 09/03/24 Assistant Gm Of Content & Delivery Relationship Specialty Start Date End Date Peter Maya MD [address] [facility] [address] [place] [address] PCP - General [facility] 02/28/24 Assistant Gm Of Content & Delivery Relationship Specialty Start Date End Date Peter Maya MD [address] [facility] [address] [place] [address] PCP - [facility] 02/28/24 Assistant Gm Of Content & Delivery Relationship Specialty Start Date End Date Peter Maya MD [address] [facility] [address] [place] [address] PCP - General [facility] 02/28/24 11/19/24 Scheduled Active and Recently Administ ered Medications [...] BE BASED ON THE PRIMARY CLINICAL RECORDS. [employer] provides no warranty or guarantee of the accuracy or completeness of information in this document.
[2024-12-02 20:45] LABS: Mucous, Urine 0 SEEN /hpf (<or=2+); Red Blood Cells-Urine 0 SEEN /hpf (0-5)
[2024-12-02 20:58] LABS: Internal QC Validated? YES +Cl - CLEAR BKGD; Pregnancy, Urine Negative Negative
[2024-12-02 20:59] LABS: Hematocrit 40.9 % (37-47); Hemoglobin 13.8 g/dL (12.0-15.0); Immature Granulocytes Count 0.030 X10^3/uL (0.0-0.0); Mean Corp Hgb Conc 33.7 g/dL (32-36); Mean Corpuscular Volume 85.0 fL (81-99); Mean Platelet Vol. 9.5 fl (6.2-12.0); NRBC Flagged by Analyzer 0 % (0-5); Platelet Count 279 K/mm3 (150-450); RBC Distribution Width CV 12.2 % (11.6-14.6); RBC Distribution Width SD 37.8 fl (35.1-43.9); Record Kit Lot#,Urine Preg 964736; Red Blood Count 4.81 M/mm3 (4.2-5.4); White Blood Count 7.9 K/mm3 (4.4-11.0)
[2024-12-02 21:07] LABS: Color, Urine Yellow (Yellow); Glucose, Dipstick Normal (Normal); Ketone-Dipstick 15 mg/dl (Negative); Leukocyte Esterase-Dipstick Negative /ul (Negative); Nitrite-Dipstick Negative (Negative); Occult Blood-Urine Negative /ul (Negative); Protein-Dipstick 15 mg/dl (Negative); Specific Gravity, Urine 1.010 (1.002-1.030); Urine Bilirubin Dipstick Negative (Negative)
[2024-12-02 21:15] LABS: Squamous Epithelial Cells - UA 0-5 SEEN /hpf (5-10)
[2024-12-02 21:24] LABS: Anion Gap 13 (5-15); BUN 9 mg/dL (4-19); BUN/Creat Ratio 13.5 RATIO (10-20); Calcium,Total 9.4 mg/dL (7.6-11.0); Carbon Dioxide 20.8 mmol/L (21.0-32.0); Chloride 102 mmol/L (98-108); Estimated Creatinine Clearance 150.06 ml/min (50-250); Glucose 119 mg/dL (70-99); Magnesium 1.9 mg/dL (1.5-2.2); Potassium 3.8 mmol/L (3.3-5.1)
--- NOTE | 2024-12-02 21:39 | EKG12_ITS ---
Test Reason : DYSRHYTHMIA Blood Pressure : */* mmHG Vent. Rate : 68 BPM Atrial Rate : 68 BPM P-R Int : 206 ms QRS Dur : 100 ms QT Int : 412 ms P-R-T Axes : 12 44 37 degrees QTcB Int : 438 ms Normal sinus rhythm Normal ECG Confirmed by MERLY ARCE, SALOME ([id number]), proposal editor MILY SHAH ([id number]) on 12/03/2024 7:31:53 AM Referred By: Confirmed By: SALOME MORELAND MD
--- NOTE | 2024-12-02 21:49 | EX.ED.DYSGE1 ---
HPI History of Present Illness Chief Complaint: Anxiety Narrative Narrative: Patient is a 39-year-old female presenting to the emergency department for episodes of anxiety. Patient has a past medical history of hypertension, anxiety, obesity, bipolar disorder, seizures. Patient reports in 1997 she had a partial lobotomy for epilepsy. She is on keppra for epilepsy. She is on xanax for anxiety. States that for about the past 10 years she has had episodes of panic disorder versus anxiety attack that she describes as tingling feeling in all her extremities, flushing and shaking. Also reports that when she has episodes she feels like she cannot breathe. She reports she is conscious during the episodes. She states that they have become more frequent over the past week or so and was concerned about a possible UTI. She denies any recent head trauma or falls. Denies any fevers, neck pain or back pain. Denies any chest pain, shortness of breath, abdominal pain, nausea, vomiting, diarrhea at time of evaluation. Denies any focal numbness or weakness, speech deficit, visual changes, new onset headache. States she tried to go to urgent care to have her urine tested but they were all closed. [facility] Medical History Suicide attempt Sinus tachycardia seen on monitor worker Intentional overdose of nonsteroidal anti-inflammatory drug (NSAID) Intentional aspirin overdose Depression with suicidal ideation Personality, multiple Epilepsy PTSD (post-traumatic stress disorder) Anxiety and depression Home Medications ?Medication ?Instructions ?Recorded ?Last Taken ?Type alprazolam 2 mg tablet (Xanax) 2 mg PO BID anxiety 07/28/20 09/22/23 History alprazolam 1 mg tablet (Xanax) 1 mg PO QHS anxiety 10/18/21 09/21/23 History citalopram 20 mg tablet (Celexa) 20 mg PO DAILY depression 10/18/21 09/22/23 History citalopram 10 mg tablet 10 mg PO Q24H DEPRESSION 02/06/23 09/22/23 History levetiracetam 1,000 mg tablet 1,000 mg PO BID SEIZURES 02/06/23 09/22/23 History amoxicillin 875 mg tablet 875 mg PO BID #20 tabs 11/04/24 Unknown Rx Allergy/AdvReac Type Severity Reaction Status Date / Time phenobarbital Allergy Unknown Verified 12/02/24 19:40 propranolol Allergy Rash Verified 12/02/24 19:40 hydralazine AdvReac Mild confusion Verified 12/02/24 19:40 Family History Mother Heart disease Surgical History H/O dilation and curettage History of hysteroscopy partial labotomy Social History Smoking Status: Never smoker alcohol intake: current details: social substance use type: does not use caffeine: Yes what type of physical activity do you participate in: none seatbelt use: always do you feel safe at home: No additional social history: single-unemployed ROS ROS ED ROS Narrative See HPI EXAM Physical Exam Narrative Exam Narrative: Vital signs: Reviewed General: Alert and orientedx3. No acute distress. Well appearing. Obese. HEENT: Head is normocephalic and atraumatic, sinuses nontender, pupils equal round and reactive. Nares are patent. Oropharynx and throat exams normal. Neck: Supple without lymphadenopathy nontender Cardiovascular: Regular rate and rhythm, no murmurs. No rubs or gallops. Normal S1 and S2 Respiratory: Clear to auscultation bilaterally. No wheezes, rales, rhonchi Abdominal: Soft and nontender. Normal bowel sounds. No guarding or rebound. Nonsurgical abdomen Extremities: No tenderness. No bruising. Normal range of motion. Normal sensation. Skin: No rash or redness. Neurological: Cranial nerves II through XII are grossly intact. Normal strength and sensation. Normal cerebellar function The rest of the physical exam is unremarkable Const Vital Signs: 12/02/24 19:38 Temperature 98.2 F Temperature Source Oral Pulse Rate 102 H Respiratory Rate 18 Blood Pressure 161/97 H Blood Pressure Mean 118 Pulse Ox 97 Oxygen Delivery Method Room Air MDM MDM MDM Narrative Medical decision making narrative: Patient is a 39-year-old female presenting to the emergency department for episodes of reported anxiety. Patient was seen and examined. Vitals are stable. Patient resting comfortably in no acute distress. Differential includes but is not limited to: UTI, thyroid disturbance, electrolyte disturbance less likely seizures Patient reports that she is conscious through the whole episode, I do not think these are seizure-like. CBC with no leukocytosis and a normal hemoglobin. BMP with no significant abnormalities. TSH and magnesium within normal limits. Urinalysis with no evidence of infection. Urine negative. EKG shows normal sinus rhythm with no ischemic changes. No dysrhythmia. Patient updated on the negative workup. I recommended that she follow-up with her primary care doctor to discuss the episodes. She states she has had them for years and is on Xanax for anxiety already. Patient discharged from the Emergency Department. I do not feel that the patient's evaluation reveals any acute reason for admission at this time. I instructed them to either follow-up with their primary care physician or promptly return to the Emergency Department for reevaluation should symptoms worsen or new symptoms develop. I explained what symptoms would indicate the need to return to the emergency department. Shared decision making was used. The patient voiced understanding of the treatment plan and is agreeable with it. Clinical impression: Anxiety History & Record Review Discussion w/independent historian: Patient Lab Data Attestation: I reviewed the patient's lab results. Labs: Laboratory Results - last 24 hr 12/02/24 20:40 WBC 7.9 RBC 4.81 Hgb 13.8 Hct 40.9 MCV 85.0 MCH 28.7 MCHC 33.7 RDW Std Deviation 37.8 RDW Coeff of Thomas 12.2 Plt Count 279 MPV 9.5 Immature Gran % (Auto) 0.400 Neut % (Auto) 80.3 H Lymph % (Auto) 15.9 L [place] % (Auto) 3.1 Eos % (Auto) 0.0 Baso % (Auto) 0.3 Absolute Neuts (auto) 6.3 Absolute Lymphs (auto) 1.25 Nucleated RBC % 0 Sodium 136 Potassium 3.8 Chloride 102 Carbon Dioxide 20.8 L Anion Gap 13 BUN 9 Creatinine 0.69 L Estim Creat Clear Calc 150.06 Est GFR (MDRD) Non-Af 112 BUN/Creatinine Ratio 13.5 Glucose 119 H Calcium 9.4 Magnesium 1.9 TSH 1.150 Urine Color Yellow Urine Clarity Clear Urine pH 7.0 Ur Specific [place] 1.010 Urine Protein 15 H Urine Glucose (UA) Normal Urine Ketones 15 H Urine Occult Blood Negative Urine Nitrite Negative Urine Bilirubin Negative Urine Urobilinogen Normal Ur Leukocyte Esterase Negative Urine RBC 0 SEEN Urine WBC 0 SEEN Ur Squamous Epith Cells 0-5 SEEN Urine Bacteria 0 SEEN Urine Mucus 0 SEEN Urine Test Negative Discharge Plan Triage Chief Complaint: Anxiety Other Complaint: Seizure ED Provider: Dalia Valdes Dx/Rx/DC Orders Clinical Impression: Anxiety Instructions: Anxiety Disorders Tx, ED Panic Attack Prescriptions: No Action amoxicillin 875 mg tablet 875 mg PO BID Qty: 20 0RF alprazolam [Xanax] 2 mg Tablet 2 mg PO BID alprazolam [Xanax] 1 mg Tablet 1 mg PO QHS citalopram [Celexa] 20 mg Tablet 20 mg PO DAILY citalopram 10 mg tablet 10 mg PO Q24H Patient Comments: TAKE 1 TABLET BY MOUTH EVERY DAY levetiracetam 1,000 mg tablet 1,000 mg PO BID Patient Comments: TAKE 1 TABLET BY MOUTH TWICE DAILY Primary Care Provider: Rafia Bianchi Referrals: Rafia Bianchi, CONSOLE ATTENDANT-C [Primary Care Provider, Family Practice] - As soon as possible Activity Restrictions/Additional Instructions: Your evaluation in the Emergency Department did not reveal any acute reason for admission. However, I want to emphasize that you may be early in the course of a disease process or illness even if it is not present. For this reason you should follow-up within 24 hours for reevaluation with either your primary care physician or if necessary back here in the Emergency Department. You should return to the Emergency Department immediately if your symptoms worsen or new symptoms develop. Print Language: Korean Disposition Disposition: Home, Self Care
[2024-12-02 22:08] VITALS: BP 158/70; PULSE 88; RESP 18; TEMP 36.8; O2SAT 97
== END 2024-12-02 22:11 | disposition home or self-care (01) ==
PROVIDERS: Emergency Provider Student in an Organized Health Care Education/Training Program; PCP Nurse Practitioner Family; Visit Provider Student in an Organized Health Care Education/Training Program
DX: F41.9 Anxiety disorder, unspecified (principal); F31.9 Bipolar disorder, unspecified; G43.909 Migraine, unspecified, not intractable, without status migrainosus; E66.9 Obesity, unspecified; I10 Essential (primary) hypertension; Z79.899 Other long term (current) drug therapy
CPT/HCPCS: 80048; 81001; 81025; 83735; 84443; 85025; 93005; 99284

== ENCOUNTER 2025-02-06 12:06 | Emergency (ER) | payer MEDICARE, MEDICAID, SELFPAY ==
[2025-02-06 12:07] VITALS: BP 139/86; PULSE 85; RESP 17; TEMP 37.1; O2SAT 100; BMI 54.6
--- NOTE | 2025-02-06 12:41 | EKG12_ITS ---
Test Reason : TACHY Blood Pressure : */* mmHG Vent. Rate : 82 BPM Atrial Rate : 82 BPM P-R Int : 178 ms QRS Dur : 96 ms QT Int : 388 ms P-R-T Axes : 22 42 43 degrees QTcB Int : 453 ms Normal sinus rhythm Normal ECG Confirmed by CHIVO HALE ([id number]), mapping editor MARCELA CULP ([id number]) on 02/10/2025 6:39:44 AM Referred By: Confirmed By: CHIVO HALE
--- NOTE | 2025-02-06 12:41 | RAD_ITS ---
PROCEDURE: CHEST PA AND LATERAL 02/06/2025 REASON FOR EXAM: CHEST PAIN TECHNIQUE: Procedure Code: RADCXR Modality: DX Procedure: CHEST PA AND LATERAL COMPARISON: October 08, 2023 FINDINGS: Hardware: EKG leads Heart: The heart size is normal. Mediastinum: The mediastinal contour is unremarkable. Lungs: The lungs are clear. Bones: The bones are unremarkable. RAD/Chest PA and Lateral IMPRESSION: No acute cardiopulmonary process Reading Location: [id number]
--- NOTE | 2025-02-06 12:48 | EX.ED.DYSGE1 ---
HPI History of Present Illness Chief Complaint: Anxiety Narrative Narrative: Patient is a 39-year-old female with past medical history of depression, multiple personality disorder, PTSD, anxiety, PCOS, hirsutism, bipolar disorder, hypertension who presented to the emergency department the chief complaint of feeling her heart is racing. States that this episode started this morning and is periodic. She denies any recent travel history denies any history of blood clots. She states that during these episodes she has a feeling of whole body with warmth and just generalized does not feel well. [facility] Medical History Suicide attempt Sinus tachycardia seen on travel administrator Intentional overdose of nonsteroidal anti-inflammatory drug (NSAID) Intentional aspirin overdose Depression with suicidal ideation Personality, multiple Epilepsy PTSD (post-traumatic stress disorder) Anxiety and depression Home Medications ?Medication ?Instructions ?Recorded ?Last Taken ?Type alprazolam 2 mg tablet (Xanax) 2 mg PO BID anxiety 07/28/20 09/22/23 History alprazolam 1 mg tablet (Xanax) 1 mg PO QHS anxiety 10/18/21 09/21/23 History citalopram 20 mg tablet (Celexa) 20 mg PO DAILY depression 10/18/21 09/22/23 History citalopram 10 mg tablet 10 mg PO Q24H DEPRESSION 02/06/23 09/22/23 History levetiracetam 1,000 mg tablet 1,000 mg PO BID SEIZURES 02/06/23 09/22/23 History Allergy/AdvReac Type Severity Reaction Status Date / Time phenobarbital Allergy Unknown Verified 02/06/25 12:09 propranolol Allergy Rash Verified 02/06/25 12:09 hydralazine AdvReac Mild confusion Verified 02/06/25 12:09 Family History Mother Heart disease Surgical History H/O dilation and curettage History of hysteroscopy partial labotomy Social History Smoking Status: Never smoker alcohol intake: current details: social substance use type: does not use caffeine: Yes what type of physical activity do you participate in: none seatbelt use: always do you feel safe at home: No additional social history: single-unemployed ROS ROS ED ROS Narrative Constitutional: Denies any fevers or chills denies headaches Eyes: Denies double vision Cardiovascular: Denies chest pain complains of palpitations Respiratory: Denies coughing wheezing shortness of breath Abdomen: Complains of nausea denies any vomiting, diarrhea, abdominal pain : Denies urinary symptoms Neurological: Denies any numbness, weakness, tingling Musculoskeletal: Denies back pain Skin: Denies any rashes or lesions EXAM Physical Exam Narrative Exam Narrative: General: Patient was lying in bed resting comfortably Head: Atraumatic, normocephalic Eyes: PERRL bilaterally, EOMI bilaterally, no conjunctival injection noted Neck: Soft, supple, trachea midline Cardiovascular: Patient was tachycardic with a regular rhythm Respiratory: Clear to auscultation bilaterally Abdomen: Soft, nondistended, nontender to palpation Extremities: +5/5 strength noted in the bilateral lower extremities Neurological: Patient following commands and that she was at [facility] year is 2024 Skin: Warm, dry, intact no rashes or lesions noted Const Vital Signs: 02/06/25 12:07 02/06/25 12:19 02/06/25 14:00 Temperature 98.7 F Temperature Source Oral Pulse Rate 85 87 Respiratory Rate 17 18 Respiratory Effort Normal Non-Labored Respiratory Pattern Normal Blood Pressure 139/86 H 147/84 H Blood Pressure Mean 103 101 Pulse Ox 100 97 Oxygen Delivery Method Room Air MDM MDM MDM Narrative Medical decision making narrative: Patient is a 39-year-old female who presented to the emergency department chief complaint of palpitations. On the differential diagnose includes but not limited to hyperthyroidism, cardiac arrhythmia, electrolyte abnormality, anxiety attack/panic attack. Once workup is obtained and reviewed she will be reevaluated. During my evaluation patient was tachycardic to the 150s while in the room this did dissipate and she returned to normal sinus rhythm will try to get an EKG with an elevated heart rate if this occurs again in the ER. Patient CBC reviewed and showed no evidence leukocytosis white blood count 5.9, heme was 14.1, plate count was noted be 331. Patient sodium was noted be 137, potassium normal 3.7, creatinine was 0.65. Patient troponin was less than 6 with a delta troponin of less than 6. Patient's EKG reviewed showed sinus rhythm rate of 82 bpm AR interval 178. Patient TSH normal at 2.28, free T4 and T3 normal at 1.10 and 3.4 respectively. Patient's chest x-ray reviewed by myself and by radiology showed no acute cardiopulmonary processes. On reevaluation the patient and she is feeling much better she would like to go home at this point in time. There were no further episodes of this tachycardia here in the emergency department therefore she will be placed on Holter monitor. She was vies follow-up with her doctor in the outpatient setting and return with worsening symptoms or other concerns. She is agreeable to plan all question concerns answered she was discharged home in stable condition Lab Data Labs: Laboratory Results - last 24 hr 02/06/25 02/06/25 12:45 14:35 WBC 5.9 RBC 4.92 Hgb 14.1 Hct 40.7 MCV 82.7 MCH 28.7 MCHC 34.6 RDW Std Deviation 36.2 RDW Coeff of Thomas 12.0 Plt Count 331 MPV 9.2 Immature Gran % (Auto) 0.500 Neut % (Auto) 67.6 Lymph % (Auto) 24.6 [place] % (Auto) 5.8 Eos % (Auto) 0.7 Baso % (Auto) 0.8 Absolute Neuts (auto) 4.0 Absolute Lymphs (auto) 1.45 Nucleated RBC % 0 Sodium 137 Potassium 3.7 Chloride 103 Carbon Dioxide 21.4 Anion Gap 14 BUN 10 Creatinine 0.65 L Estim Creat Clear Calc 162.87 Est GFR (MDRD) Non-Af 113 BUN/Creatinine Ratio 14.8 Glucose 137 H Calcium 9.2 Troponin T High Sens < 6 Troponin T Hi Sens 2 Hr < 6 TSH 2.280 Free T4 1.10 Free T3 pg/dL 3.4 Radiography Diagnostic Testing: Clinical Impression(s) from Imaging Studies Chest X-Ray 02/06/25 12:41 IMPRESSION: No acute cardiopulmonary process Reading Location: [id number] Discharge Plan Triage Chief Complaint: Anxiety ED Provider: González Cross Dx/Rx/DC Orders Clinical Impression: Tachycardia, Anxiety and depression, Bipolar disorder, Hypertension, Polycystic ovarian syndrome Prescriptions: No Action alprazolam [Xanax] 2 mg Tablet 2 mg PO BID alprazolam [Xanax] 1 mg Tablet 1 mg PO QHS citalopram [Celexa] 20 mg Tablet 20 mg PO DAILY citalopram 10 mg tablet 10 mg PO Q24H Patient Comments: TAKE 1 TABLET BY MOUTH EVERY DAY levetiracetam 1,000 mg tablet 1,000 mg PO BID Patient Comments: TAKE 1 TABLET BY MOUTH TWICE DAILY Primary Care Provider: Rafia Bianchi Referrals: Rafia Bianchi NP-C [Primary Care Provider, Family Practice] Activity Restrictions/Additional Instructions: Your blood work did not show any acute findings today. Follow-up your doctor in the outpatient setting. Return with worsening symptoms or any concerns. Wear Holter monitor. Print Language: Divehi Disposition Disposition: Home, Self Care
--- OUTSIDE RECORDS SUMMARY | 2025-02-06 12:55 | XMS RPT_ITS | CCD ---
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 hearing change. Review of Systems Objective BP 142/90 Pulse 89 Temp 36.6 ?C (97.9 ?F) Resp 20 Wt (!) 141.6 kg (312 lb 2.7 oz) LMP 12/27/2024 (Approximate) SpO2 100% BMI 53.58 kg/m? Physical Exam Constitutional: General: She is not in acute distress. HENT: Right Ear: Tympanic membrane and ear canal normal. No swelling. No middle ear effusion. Tympanic membrane is not injected, erythematous, retracted or bulging. Left Ear: Tympanic membrane and ear canal normal. Tenderness (Tender with patient applied pressure on the tragus) present. No swelling. No middle ear effusion. Tympanic membrane is not injected, erythematous, retracted or bulging. Ears: Comments: Small flaky crust bilateral meatus Nose: Congestion present. Right Sinus: No maxillary sinus tenderness or frontal sinus tenderness. Left Sinus: No maxillary sinus tenderness or frontal sinus tenderness. Mouth/Throat: Mouth: Mucous membranes are moist. Pharynx: Posterior oropharyngeal erythema present. No oropharyngeal exudate. Eyes: Extraocular Movements: Extraocular movements intact. Conjunctiva/sclera: Conjunctivae normal. Pupils: Pupils are equal, round, and reactive to light. Cardiovascular: Rate and Rhythm: Normal rate and regular rhythm. Heart sounds: No murmur heard. Pulmonary: Effort: No respiratory distress. Breath sounds: No wheezing, rhonchi or rales. Musculoskeletal: Cervical back: Neck supple. Lymphadenopathy: Cervical: No cervical adenopathy. Neurological: Mental Status: She is alert. {ASSESSMENT/PLAN: 1. Otalgia, left ear - ICD9: 388.70, ICD10: H92.02 (primary diagnosis) No overt abnormality identified. She has some discomfort with manipulation at the meatus and subjective pruritus. Treat possible otitis media with an antibiotic and steroid combo drop. - LCDBLAWH-EDUWXIXBN-KGMPQAC RT 3.5 MG-10,000 UNIT/ML-1 % EAR DROPS,SUSP Follow-up with worsening or failure to improve. 2. Sore throat - ICD9: 462, ICD10: J02.9 - STREP A MOLECULAR (POC) - negative. - suspect viral URI - Supportive care treatment with rest, cold medicine, and analgesia. Surjit Ordonez MD Differential Diagnoses - Otitis externa (mechanical, dermatitis, infectious) - Eustachian tube dysfunction - Viral URI x 5 days is more likely for the following reason(s): suggested by HANDP - Streptococcal pharyngitis is less likely for the following reason(s): laboratory studies not suggestive Procedures Allergies As of Date: 01/20/2025 Noted Allergy Reaction ABILIFY (ARIPIPRAZOLE) 09/03/2024 14 - Other: See Comments Comments: seizures ATARAX (HYDROXYZINE) 04/26/2023 1 - Mental Status Change Comments: Causes mental changes PHENOBARBITAL 09/12/2006 2 - Rash PROPRANOLOL 08/20/2022 2 - Rash HYDRALAZINE 10/08/2023 1 - Mental Status Change PROPANEDIOL 07/08/2022 2 - Rash Date Reviewed: 01/20/2025 Reviewed by: Ifrah Perez MA - Fully Assessed Reason for Visit: Ear Problem [38] Cmt: Left ear pain x 2 weeks Sore throat x 5 days Primary Visit Diagnosis:Otalgia, left ear [H92.02] Other Visit Diagnosis:Sore throat [J02.9] Order(s):STREP A MOLECULAR (POC) [3622107] Order #: [id number]. #:[id number] 1-LAB qjpdamgu-tpexdbkjl-ewichtr rtisone (CORTISPORIN) 3.5-10,000-1 mg/mL-unit/mL-% otic suspensionUse 4 drops in the left ear three times a day for 5 days.Disp: 10 mLRfl: 0 Prescriptions as of 01/20/2025 - ALPRAZolam (XANAX) 1 mg tablet Take 1 mg by mouth daily at bedtime. - medroxyPROGESTERone (PROVERA) 10 mg tablet TAKE 1 TABLET EVERY DAY for TEN months - mubknajq-oannreyfr-ndynjab rtisone (CORTISPORIN) 3.5-10,000-1 mg/mL-unit/mL-% otic suspension Use 4 drops in the left ear three times a day for 5 days. - spironolactone (ALDACTONE) 50 mg tablet Take 50 mg by mouth once daily. - citalopram (CELEXA) 20 mg tablet Take 20 mg by mouth once daily. - citalopram hydrobromide (CELEXA) 10 mg tablet Take 10 mg by mouth onc (more content not included)... Normal [facility] Office Visiton 01-08-2025 Follow-up visit [id number] RobertYamilka christopher Penny 1985 F Date Provider Department Center 01/08/2025 [id number] MUNOZG [facility] Offi Family History Problem Relation Age of Onset Heart attack Maternal Grandfather Family Status - Relation Status Age at Maternal Grandfather Father Alive Mother Notes: cardiac arrest Level of Service:40343 SD OFFICE/OUTPATIENT ESTABLISHED LOW MDM 20 MIN Reason for Visit and Comments: Post-op Visit [559] - 2 wk post op 12/27 hysteroscopy D&C [facility] Progress Noteon 01-08-2025 Progress Note Chief Complaint Patient presents with Post-op Visit 2 wk post op 12/27 hysteroscopy D&C HPI No pain No bleeding ROS: Constitutional - denies fevers or chills Resp - denies CP or SOB CV - denies CP GI - denies nausea, vomiting - denies frequency and dysuria Medical History[1] Surgical History[2] Allergies[3] @MEDCMED@ BP 126/76 Ht 1.626 m (5' 4) Wt (!) 142 kg (313 lb) LMP 12/09/2024 (Within Days) BMI 53.73 kg/m? PE: Well developed, well nourished Normocephalic, atraumatic CV - normal rate Resp - normal effort Abd - soft, ND MS - no edema Neuro - Pt A&Ox3, NAD Skin - warn and dry Psych - normal affect and behavior Josse was seen today for post-op visit. Diagnoses and all orders for this visit: Abnormal uterine bleeding (AUB) (Primary) Other orders - progesterone (Prometrium) 200 MG capsule; Take 1 capsule (200 mg) by mouth daily. Follow up for annual. Discussed OCP Path normal Stop all meds and start to conceive Discussed low risk of [1] Past Medical History: Diagnosis Date Anxiety Depression Epilepsia (HCC) GERD (gastroesophageal reflux disease) PCOS (polycystic ovarian syndrome) PTSD (post-traumatic stress disorder) Sleep apnea does not wear cpap [2] Past Surgical History: Procedure Laterality Date BRAIN SURGERY 1997 treatment of epilepsy DILATION AND CURETTAGE (HISTORICAL) 12/27/[address] [facility] [address]. Munoz DILATION AND CURETTAGE OF UTERUS 03/08/2024 HYSTEROSCOPY 03/08/2024 [3] Allergies Allergen Reactions Hydralazine Hydroxyzine Other Causes mental changes Phenobarbital Rash Other reaction(s): Other (See Comments), Unknown Propanediol Rash Propranolol Rash Normal [facility] CNOVon 01-02-2025 OV Office Visit (ENWSTR ) -- JOSSE WANYE ([id number]) 1985 F Date Time Provider Department 01/02/25 1:40 PM ZIYAD HARRELL ENWSTR During your visit today, we recorded the following information about you: Temperature Pulse Respiration Weight 98.1 degrees 104/minute 22/minute 143.2 kg Last Period 12/27/24 Ziyad Harrell MD 01/04/2025 6:23 AM Signed Endocrinology and Metabolism [facility] Follow up visit REASON FOR CONSULT: Evaluation of ovarian hyperandrogenism REQUESTING PHYSICIAN: Yessi Munoz MD HPI Josse Wayne is a 39 year old female presenting for follow up evaluation of ovarian hyperandrogenism. Initial visit 06/03/2024 - Menarche at age 13, [...] is working on right now Interval history: 01/03/25: Due to elevated 17 OHP, ACTH stim test for NCCAH was done She reports no new symptoms - she is seeing OBGYN outside [facility] and reports undergoing Hysteroscopy with [facility], and is concerned about the results PAST MEDICAL HISTORY: PAST MEDICAL HISTORY Diagnosis [...] Reported on 04/26/2023) propranolol (INDERAL) 10 mg tab (more content not included)... Normal [facility] HCG ( test) Ql (U)o n 12-27-2024 Beta HCG ( test) Ql (U) [id number] [facility] [employer] Interpretation and review of laboratory results Normal [facility] [employer] NEGATIVE QC Pass [facility] Health POSITIVE QC Pass [facility] [employer] Preg Test, Ur Negative Negative [facility] Nursing Noteon 12-27-2024 Nursing Note Patient educated on importance of coughing/ deep breathing after surgery to reduce risk of pneumonia. Patient educated on importance of early mobility to reduce the risk of blood clots. Falls prevention information reviewed with patient. Post-operative pain control and ways to prevent constipation discussed with patient. [facility] Op Noteon 12-27-2024 Op Note Preoperative diagnos is: Endometrial hyperplasia Postoperative diagnosis: Same Operation D&C hysteroscopy Surgeon: Luciano Anesthesia: General EBL: Minimal Brief history: Patient is a 39-year-old female with a history of endometrial hyperplasia. She has been on progesterone who presents for repeat sampling. Details of procedure: Patient was brought the operative suite where she was placed under general anesthesia. She was sterilely prepped and draped in the usual fashion for the procedure. Timeout was held. The uterus sounded to 9 cm. The cervix was dilated the hysteroscope was inserted. There was no evidence of submucosal polyps or fibroids. At this point the cavity was thoroughly curetted and specimen was sent. The procedure was terminated and the patient was awoken from general anesthesia and transferred to the recovery room in stable condition. [facility] ECG 12-LEADon 12-21-2024 ECG 12-LEAD IMPRESSION: Sinus rhythm Abnormal inferior Q waves Electronically Signed On 12-21-2024 09:59:09 EDT by Surjit Winn [facility] [id number] 12-20-2024 [id number] Medication List Accurate as of December 20, 2024 3:02 PM. Always use your most recent med list. * ALPRAZolam 2 MG tablet Commonly known as: Xanax Medication Adjustments for Surgery: Take morning of surgery Notes to patient: If needed * ALPRAZolam 1 MG tablet Commonly known as: Xanax Medication Adjustments for Surgery: Take morning of surgery Notes to patient: If needed citalopram 10 MG tablet Commonly known as: CeleXA Take 1 tablet (10 mg) by mouth 2 times daily. Medication Adjustments for Surgery: Take morning of surgery levETIRAcetam 1000 MG tablet Commonly known as: Keppra Take 1 tablet (1,000 mg) by mouth 2 times daily. Medication Adjustments for Surgery: Take morning of surgery megestrol 20 MG tablet Commonly known as: Megace Take 1 tablet (20 mg total) by mouth 2 times daily. Medication Adjustments for Surgery: Hold morning of surgery * This list has 2 medication(s) that are the same as other [...] or longer if instructed by your surgeon. Shower with an antibacterial soap such as [...] your scheduled surgery time. Please bring your [facility] Surgical folder and medication list with you day of surgery. We encourage you to write down any questions you may have for the surgeon, anesthesiologist, or other members of the surgical team and bring it with you the day of surgery. Please bring photo ID and insurance information. Normal [facility] HEMOGLOBIN A1Con 12-20-2024 Glucose [Mass/Vol] 111 mg/dL Normal [facility] Comment on above: Result Comment: BON Wilson COMMENTS: HbA1c values of 5.7-6.4 percent indicate an increased risk for developing diabetes mellitus. HbA1c values greater than or equal to 6.5 percent are diagnostic of diabetes mellitus. For diagnosis of diabetes in individuals without unequivocal hyperglycemia, results should be confirmed by repeat testing. Performed By: #### L [id number] #### Massage Therapist: DEEPAK HAGAN ([id number]) [facility] ([facility]) [address] HEMOGLOBIN A1C 5.5 %HbA1C Normal <5.7 [facility] Comment on above: Result Comment: Norm al less than 5.7% Prediabetes 5.7% to 6.4% Diabetes 6.5% or higher --HgbA1C levels may not be accurate in patients who have renal disease, received recent blood transfusions, are anemic, or who have dyshemoglobinemia. Performed By: #### L [id number] #### Massage Therapist: DEEPAK HAGAN ([id number]) [facility] ([facility]) [address] [place] [address] Progress Noteon 12-20-2024 Progress Note [facility] JEFF Wayne : 1985 Primary Care Physician: No primary care provider on file. The patient and/or family/surrogate voluntarily agreed to participate in ACP services. Patient?s cognitive capacity: full Code Status: [x] [FULL CODE - Continue all advanced life support: CPR,intubation,invasive procedures] [_] [DNR-CCA - DO NOT do CPR, intubation] [_] [DNR-BUSINESS PROCESS ANALYST - Comfort care only] [_] DNR form [was/was not] signed Summary of discussion: The patient health care POA/ surrogate is the following: none. [Condition that instigated the ACP on this DOS, relevant PMH, functional status, goals of care, and whom this was discussed with including names and relationship to the patient, and any relevant advance care documentation discussion] I answered all the patient/family questions that I could within the range and scope of the current medical situation. We discussed the medical conditions, risks, benefits, outcomes, and goals of care at this time for the patient's medical issues at hand in the face of the patient's chronic issues and current presentation. Total time spent: 2 minutes were spent discussing the patient's resuscitation status, advance care planning, and end of life care, with patient and/or family/surrogate. Rafia Caceres PA-C [facility] 12/20/2024, 3:23 PM [facility] 36on 12-09-2024 36 Pt does not have Beau ruano. Placed surgery information in mail. 12/09/24. Normal [facility] 36 Called pt in regards to surgery scheduling and call then ended. Tried calling pt back and would not ring. Will attempt to call later. Normal [facility] Office Visiton 12-05-2024 Follow-up visit [id number] Yamilka Wayne [place] 1985 F Date Provider Department Center 12/05/2024 [id number] SHABAZZ [facility] Family History Problem Relation Age of Onset Heart attack Maternal Grandfather Family Status - Relation Status Age at Maternal Grandfather Father Alive Mother Notes: cardiac arrest Level of Service:40594 SD OFFICE/OUTPATIENT ESTABLISHED [facility] 30 MIN Reason for Visit and Comments: Follow-up [623297] - Discuss repeat hysteroscopy D&C for endometrial hyperplasia Last surgery on 03/08 On and off bleeding heavy bleeding Lower pelvic pain Normal [facility] Progress Noteon 12-05-2024 Progress Note Chief Complaint Patient presents with Follow-up Discuss repeat hysteroscopy D&C for endometrial hyperplasia Last surgery on 03/08 On and off bleeding heavy bleeding Lower pelvic pain HPI Bleeding off and on Has seen endocrine Taking estrogen but stopped Taking megace Having a difficult time with transportation ROS: Constitutional - denies fevers or chills Resp - denies CP or SOB CV - denies CP GI - denies nausea, vomiting - denies frequency and dysuria Medical History[1] Surgical History[2] Allergies[3] @MEDCMED@ BP 128/84 Ht 1.626 m (5' 4) Wt (!) 137 kg (303 lb) LMP (LMP Unknown) BMI 52.01 kg/m? PE: Well developed, well nourished Normocephalic, atraumatic CV - normal rate Resp - normal effort Abd - soft, ND MS - no edema Neuro - Pt A&Ox3, NAD Skin - warn and dry Psych - normal affect and behavior Josse was seen today for follow-up. Diagnoses and all orders for this visit: Endometrial hyperplasia (Primary) Stop estrogen Cont megace Schedule D&C Will find trasnportation Follow up for pre op. [1] Past Medical History: Diagnosis Date Anxiety Depression Epilepsia (HCC) GERD (gastroesophageal reflux disease) PCOS (polycystic ovarian syndrome) PTSD (post-traumatic stress disorder) Sleep apnea [2] Past Surgical History: Procedure Laterality Date BRAIN SURGERY 1997 DILATION AND CURETTAGE OF UTERUS 03/08/2024 HYSTEROSCOPY 03/08/2024 [3] Allergies Allergen Reactions Hydralazine Hydroxyzine Other Causes mental changes Phenobarbital Rash Other reaction(s): Other (See Comments), Unknown Propanediol Rash Propranolol Rash Normal [facility] 12 Lead EKGon 12-02-2024 12 Lead EKG [facility] Cardiovascular Services [address] [place] [address] 12 Lead EKG 12/02/24 2200 MR#: [id number] Acct: [id number] Name: JOSSE WAYNE Rep #: [id number] : 1985 39 From: Darrion Lo MD Attending Dr: Status: DEP ER Ordering Dr: Dalia Valdes MD Date: 12/02/24 Location: ED Sex: F C Admitted: Test Reason : DYSRHYTHMIA Blood Pressure : */* mmHG Vent. Rate : 68 BPM Atrial Rate : 68 BPM P-R Int : 206 ms QRS Dur : 100 ms QT Int : 412 ms P-R-T Axes : 12 44 37 degrees QTcB Int : 438 ms Normal sinus rhythm Normal ECG Confirmed by DARRION LO MD ([id number]), editor greeting card MILY SHAH ([id number]) on 12/03/2024 7:31:53 AM Referred By: Confirmed By: DARRION LO MD 12/03/24 0731 Date Darrion Lo MD CC: YA Bianchi; Dr. Dalia Valdes MD Signed Normal [facility] Absolute lymphocyte countOrd ered By: Dalia Valdes on 12-02-2024 Lymphocytes Auto (Unsp spec) [#/Vol] 1.25 10*3/uL 0.83-4.51 [facility] Absolute neutrophil countOrd ered By: Dalia Valdes on 12-02-2024 Neutrophils (Bld) [#/Vol] 6.3 10*3/uL 2.0-7.7 [facility] Anion gap in Serum or Plasma Ordered By: Dalia Valdes on 12-02-2024 Anion gap [Moles/Vol] 13 mmol/L 5-15 [facility] Automated lymphocyte count a s percentage of total leukocytesOrdered By: Dalia Valdes on 12-02-2024 Lymphocytes/100 WBC Auto (Unsp spec) 15.9 % Low 19-41 [facility] BUN/creatinine ratioOrdered By: Dalia Valdes on 12-02-2024 Urea nitrogen/Creatinine [Mass ratio] 13.5 mg/mg 10- [facility] Basic Metabolic Profile (BMP )on 12-02-2024 BUN/CRE 13.5 RATIO Normal - [facility] Comment on above: Performed By: #### L 500.2500, L501.9520, L100.0100, L501.5200 #### [facility] [address] [place], [address] Calcium [Mass/Vol] 9.4 mg/dL Normal 7.6-11.0 [facility] Comment on above: Performed By: #### L 500.2500, L501.9520, L100.0100, L501.5200 #### [facility] [address] [place], [address] Chloride [Moles/Vol] 102 mmol/L Normal 98-108 [facility] Comment on above: Performed By: #### L 500.2500, L501.9520, L100.0100, L501.5200 #### [facility] [address] [place], [address] CO2 [Moles/Vol] 20.8 mmol/L Low 21.0-32.0 [facility] Comment on above: Performed By: #### L 500.2500, L501.9520, L100.0100, L501.5200 #### [facility] [address] [place], [address] Creatinine [Mass/Vol] 0.69 mg/dL Low 0.70-1.20 [facility] Comment on above: Performed By: #### L 500.2500, L501.9520, L100.0100, L501.5200 #### [facility] [address] [place], [address] ECRCL 150.06 ml/min Normal 50-250 [facility] Comment on above: Performed By: #### L 500.2500, L501.9520, L100.0100, L501.5200 #### [facility] [address] [place], [address] GAP 13 Normal 5-15 [facility] Comment on above: Performed By: #### L 500.2500, L501.9520, L100.0100, L501.5200 #### [facility] [address] [place], [address] GFR/1.73 sq M.predicted among non-blacks MDRD (S/P/Bld) [Vol rate/Area] 112 mL/min/{1.73_m2} Normal >60 [facility] Comment on above: Result Comment: mL/m in/1.73m2 CKD-EPI Creatinine Equation (2020) Performed By: #### L 500.2500, L501.9520, L100.0100, L501.5200 #### [facility] [address] [place], [address] Glucose [Mass/Vol] 119 mg/dL High 70-99 [facility] Comment on above: Performed By: #### L 500.2500, L501.9520, L100.0100, L501.5200 #### [facility] [address] [place], [address] Potassium [Moles/Vol] 3.8 mmol/L Normal 3.3-5.1 [facility] Comment on above: Performed By: #### L 500.2500, L501.9520, L100.0100, L501.5200 #### [facility] [address] [place], [address] Sodium [Moles/Vol] 136 mmol/L Normal 133-145 [facility] Comment on above: Performed By: #### L 500.2500, L501.9520, L100.0100, L501.5200 #### [facility] [address] [place], [address] Urea nitrogen [Mass/Vol] 9 mg/dL Normal 4-19 [facility] Comment on above: Performed By: #### L 500.2500, L501.9520, L100.0100, L501.5200 #### [facility] [address] [place], [address] Basophil percentageOrdered B y: Dalia Valdes on 12-02-2024 Basophils/100 WBC (Bld) 0.3 % 0-1 [facility] Bilirubin Test strip Ql (U)O rdered By: Dalia Maharajer on 12-02-2024 Bilirubin Ql (U) Negative Negative [facility] CBC W/Diff, Automatedon 11-12 Absolute Lymph 1.25 X10 3/uL Normal 0.83-4.51 [facility] Comment on above: Performed By: #### L 500.2500, L501.9520, L100.0100, L501.5200 #### [facility] [address] [place], [address] Absolute Neut 6.3 X10 3/uL Normal 2.0-7.7 [facility] Comment on above: Performed By: #### L 500.2500, L501.9520, L100.0100, L501.5200 #### [facility] [address] [place], [address] Basophils/100 WBC (Bld) 0.3 % Normal 0-1 [facility] Comment on above: Performed By: #### L 500.2500, L501.9520, L100.0100, L501.5200 #### [facility] [address] [place], [address] Eosinophils/100 WBC (Bld) 0.0 % Normal 0-5 [facility] Comment on above: Performed By: #### L 500.2500, L501.9520, L100.0100, L501.5200 #### [facility] [address] [place], [address] Erythrocyte distribution width (RBC) [Ratio] 12.2 % Normal 11.6-14.6 [facility] Comment on above: Performed By: #### L 500.2500, L501.9520, L100.0100, L501.5200 #### [facility] [address] [place], [address] Hematocrit (Bld) [Volume fraction] 40.9 % Normal 37-47 [facility] Comment on above: Performed By: #### L 500.2500, L501.9520, L100.0100, L501.5200 #### [facility] [address] [place], [address] Hemoglobin (Bld) [Mass/Vol] 13.8 g/dL Normal 12.0-15.0 [facility] Comment on above: Performed By: #### L 500.2500, L501.9520, L100.0100, L501.5200 #### [facility] [address] [place], [address] IG% 0.400 Normal 0.0-0.9 [facility] Comment on above: Result Comment: IG% - Immature Granulocytes (promyelocytes, myelocytes and metamyelocytes) > 1% indicates that a LEFT SHIFT is Present. Performed By: #### L 500.2500, L501.9520, L100.0100, L501.5200 #### [facility] [address] [place], [address] Lymphocytes/100 WBC (Bld) 15.9 % Low 19-41 [facility] Comment on above: Performed By: #### L 500.2500, L501.9520, L100.0100, L501.5200 #### [facility] [address] [place], [address] MCH (RBC) [Entitic mass] 28.7 pg Normal 27.0-32.0 [facility] Comment on above: Performed By: #### L 500.2500, L501.9520, L100.0100, L501.5200 #### [facility] [address] [place], [address] MCHC (RBC) [Mass/Vol] 33.7 g/dL Normal 32-36 [facility] Comment on above: Performed By: #### L 500.2500, L501.9520, L100.0100, L501.5200 #### [facility] [address] [place], [address] MCV (RBC) [Entitic vol] 85.0 fL Normal 81-99 [facility] Comment on above: Performed By: #### L 500.2500, L501.9520, L100.0100, L501.5200 #### [facility] [address] [place], [address] Monocytes/100 WBC (Bld) 3.1 % Normal 0-10 [facility] Comment on above: Performed By: #### L 500.2500, L501.9520, L100.0100, L501.5200 #### [facility] [address] [place], [address] Neutrophils/100 WBC (Bld) 80.3 % High 47-70 [facility] Comment on above: Performed By: #### L 500.2500, L501.9520, L100.0100, L501.5200 #### [facility] [address] [place], [address] Nucleated RBC (Bld) [#/Vol] 0 10*3/uL Normal 0-5 [facility] Comment on above: Performed By: #### L 500.2500, L501.9520, L100.0100, L501.5200 #### [facility] [address] [place], [address] Platelet mean volume (Bld) [Entitic vol] 9.5 fL Normal 6.2-12.0 [facility] Comment on above: Performed By: #### L 500.2500, L501.9520, L100.0100, L501.5200 #### [facility] [address] [place], [address] Platelets (Bld) [#/Vol] 279 10*3/uL Normal 150-450 [facility] Comment on above: Performed By: #### L 500.2500, L501.9520, L100.0100, L501.5200 #### [facility] [address] [place], [address] RBC (Bld) [#/Vol] 4.81 10*6/uL Normal 4.2-5.4 [facility] Comment on above: Performed By: #### L 500.2500, L501.9520, L100.0100, L501.5200 #### [facility] [address] [place], [address] RDW SD 37.8 fl Normal 35.1-43.9 [facility] Comment on above: Performed By: #### L 500.2500, L501.9520, L100.0100, L501.5200 #### [facility] [address] [place], [address] WBC (Bld) [#/Vol] 7.9 10*3/uL Normal 4.4-11.0 [facility] Comment on above: Performed By: #### L 500.2500, L501.9520, L100.0100, L501.5200 #### [facility] [address] [place], [address] Carbon dioxide, total [Moles /volume] in Central venous bloodOrdered By: Dalia Valdes on 12-02-2024 CO2 [Moles/Vol] 20.8 mmol/L Low 21.0-32.0 [facility] Chloride assayOrdered By: Jay Valdes on 12-02-2024 Chloride [Moles/Vol] 102 mmol/L 98-108 [facility] Electrocardiogram reportOrde red By: Darrion Lo on 12-02-2024 EKG study [facility] [address] [place] [address] 12 Lead EKG 12/02/24 2200 MR#: [id number] Acct: [id number] Name: JOSSE WAYNE Rep #:[id number] : 1985 39 From: Darrion Lo MD Attending Dr: Status: DEP E R Ordering Dr: Dalia Valdes MD Date: Location: ED Sex: F C Admitted: Test Reason : DYSRHYTHMIA Blood Pressure : */* mmHG Vent. Rate : 68 BPM Atrial Rate : 68 BPM P-R Int : 206 ms QRS Dur : 100 ms QT Int : 412 ms P-R-T Axes : 12 44 37 degrees QTcB Int : 438 ms Normal sinus rhythm Normal ECG Confirmed by DARRION LO MD ([id number]), editor greeting card MILY SHAH ([id number]) on 57:31:53 AM Referred By: Confirmed By: DARRION LO MD 12/03/24 0731 Date _ Darrion Lo MD CC: YA Bianchi; Dr. Dalia Valdes MD ~ Signed [facility] Other Phone: Emergency Department Summary on 12-02-2024 Emergency Department Summary [facility] Medical Records Department [address] [place] [address] Emergency Department Summary 12/02/24 MR#: [id number] Acct: [id number] Name: JOSSE WAYNE Rep #: [id number] : 1985 39 From: Dalia Valdes MD PCP: YA Sheridan Status:REG ER Location: ED HPI History of Present Illness Chief Complaint: Anxiety Narrative Narrative: Patient is a 39-year-old female presenting to the emergency department for episodes of anxiety. Patient has a past medical history of hypertension, anxiety, obesity, bipolar disorder, seizures. Patient reports in 1997 she had a partial lobotomy for epilepsy. She is on keppra for epilepsy. She is on xanax for anxiety. States that for about the past 10 years she has had episodes of panic disorder versus anxiety attack that she describes as tingling feeling in all her extremities, flushing and shaking. Also reports that when she has episodes she feels like she cannot breathe. She reports she is conscious during the episodes. She states that they have become more frequent over the past week or so and was concerned about a possible UTI. She denies any recent head trauma or falls. Denies any fevers, neck pain or back pain. Denies any chest pain, shortness of breath, abdominal pain, nausea, vomiting, diarrhea at time of evaluation. Denies any focal numbness or weakness, speech deficit, visual changes, new onset headache. States she tried to go to urgent care to have her urine tested but they were all closed. 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 Intentional overdose of nonsteroidal anti-inflammatory drug (NSAID) Intentional aspirin overdose Depression with suicidal ideation Personality, multiple Epilepsy PTSD (post-traumatic stress disorder) Anxiety and depression Home Medications ???Medication ???Instructions ???Recorded ???Last Taken ???Type alprazolam 2 mg tablet (Xanax) 2 mg PO BID anxiety 07/28/2009/21 History alprazolam 1 mg tablet (Xanax) 1 mg PO QHS anxiety 10/18/2109/20 History citalopram 20 mg tablet (Celexa) 20 mg PO DAILY depression 10/18/21 09/22/23 History citalopram 10 mg tablet 10 mg PO Q24H DEPRESSION 02/06/23 09/22/23 History levetiracetam 1,000 mg tablet 1,000 mg PO BID SEIZURES 02/06/23 09/22/23 History amoxicillin 875 mg tablet 875 mg PO BID #20 tabs 11/04/24 Un known Rx Allergy/AdvReac Type Severity Reaction Status Date / Time phenobarbital Allergy Unknown Verified 12/02/24 19:40 propranolol Allergy Rash Verified 12/02/24 19:40 hydralazine AdvReac Mild confusion Verified 12/02/24 19:40 Family History Mother Heart disease Surgical History H/O dilation and curettage History of hysteroscopy partial labotomy Social History Smoking Status: Never smoker alcohol intake: current details: social substance use type: does not use caffeine: Yes what type of physical activity do you participate in: none seatbelt use: always do you feel safe at home: No additional social history: single-unemployed ROS ROS ED ROS Narrative See HPI EXAM Physical Exam Narrative Exam Narrative: Vital signs: Reviewed General: Alert and orientedx3. No acute distress. Well appearing. Obese. HEENT: Head is normocephalic and atraumatic, sinuses nontender, pupils equal round and reactive. Nares are patent. Oropharynx and throat exams normal. Neck: Supple without lymphadenopathy nontender Cardiovascular: Regular rate and rhythm, no murmurs. No rubs or gallops. Normal S1 and S2 Respiratory: Clear to auscultation bilaterally. No wheezes, rales, rhonchi Abdominal: Soft and nontender. Normal bowel sounds. No guarding or rebound. Nonsurgical abdomen Extremities: No tenderness. No bruising. Normal range of motion. Normal sensation. Skin: No rash or redness. Neurological: Cranial nerves II through XII are grossly intact. Normal strength and sensation. Normal cerebellar function The rest of the physical exam is unremarkable Const Vital Signs: 12/02/24 19:38 Temperature 98.2 F Temperature Source Oral Pulse Rate 102 H Respiratory Rate 18 Blood Pressure 161/97 H Blood Pressure Mean 118 Pulse Ox 97 Oxygen Delivery Method Room Air MDM MDM MDM Narrative Medical decision making narrative: Patient is a 39-year-old female presenting to the emergency department for episodes of reported anxiety. Patient was seen and examined. Vitals are stable. Patient resting comfortably in no acute distress. Differential includes but is not limited to: UTI, thyroid disturbance, electrolyte dis (more content not included)... Normal [facility] Eosinophil percentageOrdered By: Dalia Valdes on 12-02-2024 Eosinophils/100 WBC (Bld) 0.0 % 0-5 [facility] Erythrocyte distribution wid th ratioOrdered By: Dalia Valdes on 12-02-2024 Erythrocyte distribution width (RBC) [Ratio] 12.2 % 11.6-14.6 [facility] Erythrocyte distribution wid th standard deviationOrdered By: Dalia Valdes on 12-02-2024 Erythrocyte distribution width (RBC) [Ratio] 37.8 fl 35.1-43.9 [facility] Glomerular filtration rate ( GFR) estimation/1.73 sq m using serum, plasma, or whole bOrdered By: Dalia Valdes on 12-02-2024 GFR/1.73 sq M.predicted among non-blacks MDRD (S/P/Bld) [Vol rate/Area] 112 mL/min/{1.73_m2} >60 [facility] Comment on above: mL/min/1.73m2 CKD-EP I Creatinine Equation (2020) Hematocrit Auto (Bld) [Volum e fraction]Ordered By: Dalia Valdes on 12-02-2024 Hematocrit (Bld) [Volume fraction] 40.9 % 37-47 [facility] Hemoglobin measurementOrdere d By: Dalia Valdes on 12-02-2024 Hemoglobin (Bld) [Mass/Vol] 13.8 g/dL 12.0-15.0 [facility] Immature granulocytes/100 WB C Auto (Bld)Ordered By: Dalia Valdes on 12-02-2024 Immature granulocytes/100 WBC (Bld) 0.400 % 0.0-0.9 [facility] Comment on above: IG% - Immature Granu locytes (promyelocytes, myelocytes and metamyelocytes) > 1% indicates that a LEFT SHIFT is Present. Ketones Test strip Ql (U)Ord ered By: Dalia Valdes on 12-02-2024 Ketones Ql (U) 15 mg/dl High Negative [facility] MCV (mean corpuscular volume ) determinationOrdered By: Dalia Valdes on 12-02-2024 MCV (RBC) [Entitic vol] 85.0 fL 81-99 [facility] Magnesiumon 12-02-2024 Magnesium [Mass/Vol] 1.9 mg/dL Normal 1.5-2.2 [facility] Comment on above: Performed By: #### L 500.2500, L501.9520, L100.0100, L501.5200 #### [facility] [address] [place], [address] Magnesium measurement (mass/ volume)Ordered By: Dalia Valdes on 12-02-2024 Magnesium (Unsp spec) [Mass/Vol] 1.9 mg/dL 1.5-2.2 [facility] Mean corpuscular hemoglobin (MCH) determinationOrdered By: Dalia Valdes on 12-02-2024 MCH (RBC) [Entitic mass] 28.7 pg 27.0-32.0 [facility] Mean corpuscular hemoglobin concentration (MCHC) determinationOrdered By: Dalia Valdes on 12-02-2024 MCHC (RBC) [Mass/Vol] 33.7 g/dL 32-36 [facility] Mean platelet volume determi nationOrdered By: Dalia Valdes on 12-02-2024 Platelet mean volume (Bld) [Entitic vol] 9.5 fL 6.2-12.0 [facility] Microscopic analysis of urin e for red blood cells (RBC)Ordered By: Dalia Valdes on 12-02-2024 Microscopic analysis of urine for red blood cells (RBC) 0 SEEN /hpf 0-5 [facility] Monocyte percentageOrdered B y: Dalia Valdes on 12-02-2024 Monocytes/100 WBC (Bld) 3.1 % 0-10 [facility] Mucus LM Ql (Urine sed)Order ed By: Dalia Valdes on 12-02-2024 Mucus Ql (Urine sed) 0 SEEN /hpf [facility] Neutrophil percentageOrdered By: Dalia Valdes on 12-02-2024 Neutrophils/100 WBC (Bld) 80.3 % High 47-70 [facility] Nitrite Test strip Ql (U)Ord ered By: Dalia Valdes on 12-02-2024 Nitrite Ql (U) Negative Negative [facility] Nucleated red blood cell per centageOrdered By: Dalia Valdes on 12-02-2024 Nucleated RBC/100 WBC (Bld) [Ratio] 0 % 0-5 [facility] Platelet countOrdered By: Jay Valdes on 12-02-2024 Platelets (Bld) [#/Vol] 279 10*3/uL 150-450 [facility] Potassium measurement (mass/ volume)Ordered By: Dalia Valdes on 12-02-2024 Potassium (Unsp spec) [Mass/Vol] 3.8 mmol/L 3.3-5.1 [facility] ,Urineon 12-02-2024 Beta HCG ( test) Ql (U) Negative Normal [facility] Comment on above: Result Comment: Very dilute urine specimens, as indicated by a low specific gravity, may not contain entry level account representative levels of hCG. If is still suspected, a first morning urine specimen should be collected 48 hours later and tested. Performed By: #### L 400.0001, L400.7600 #### [facility] [place], [address] Protein Test strip Ql (U)Ord ered By: Dalia Valdes on 12-02-2024 Protein Ql (U) 15 mg/dl High Negative [facility] RBC Auto (Bld) [#/Vol]Ordere d By: Dalia Valdes on 12-02-2024 RBC (Bld) [#/Vol] 4.81 10*6/uL 4.2-5.4 [facility] Serum creatinine measurement (mass/volume)Ordered By: Dalia Valdes on 12-02-2024 Creatinine [Mass/Vol] 0.69 mg/dL Low 0.70-1.20 [facility] Serum glucose measurement (m ass/volume)Ordered By: Dalia Valdes on 12-02-2024 Glucose [Mass/Vol] 119 mg/dL High 70-99 [facility] Serum or plasma calcium da urement (mass/volume)Ordered By: Dalia Valdes on 12-02-2024 Calcium [Mass/Vol] 9.4 mg/dL 7.6-11.0 [facility] Serum or plasma urea nitroge n measurement (mass/volume)Ordered By: Dalia Valdes on 12-02-2024 Urea nitrogen [Mass/Vol] 9 mg/dL 4-19 [facility] Sodium levelOrdered By: Foster Valdes on 12-02-2024 Sodium [Moles/Vol] 136 mmol/L 133-145 [facility] Squamous epithelial cells de tection in urine sediment by light microscopyOrdered By: Dalia Valdes on 12-02-2024 Epithelial cells.squamous LM Ql (Urine sed) 0-5 SEEN /hpf 5-10 [facility] TSH DL <= 0.005 mIU/L QnOrde red By: Dalia Valdse on 12-02-2024 TSH Qn 1.150 uIU/mL 0.300-4.20 0 [facility] Thyroid Stim Hormone (TSH)on 12-02-2024 TSH 1.150 uIU/mL Normal 0.300-4.20 0 [facility] Comment on above: Performed By: #### L 500.2500, L501.9520, L100.0100, L501.5200 #### [facility] [address] [place], [address] Urinalysis, Completeon 12-02 EPI,SQUAMOUS 0-5 SEEN Normal 5- [facility] Comment on above: Order Comment: MARICARMEN CTOR TO SPECIFY Performed By: #### L 400.0001, L400.7600 #### [facility] [address] [place], [address] BACTERIA 0 SEEN Normal None Seen [facility] Comment on above: Order Comment: MARICARMEN CTOR TO SPECIFY Performed By: #### L 400.0001, L400.7600 #### [facility] [address] [place], [address] Mucus Ql (Urine sed) 0 SEEN Normal [facility] Comment on above: Order Comment: MARICARMEN CTOR TO SPECIFY Performed By: #### L 400.0001, L400.7600 #### [facility] [address] [place], [address] RBC 0 SEEN Normal 0-5 [facility] Comment on above: Order Comment: MARICARMEN CTOR TO SPECIFY Performed By: #### L 400.0001, L400.7600 #### [facility] [address] [place], [address] WBC 0 SEEN Normal 0-5 [facility] Comment on above: Order Comment: MARICARMEN CTOR TO SPECIFY Performed By: #### L 400.0001, L400.7600 #### [facility] [address] [place], [address] Urine clarityOrdered By: Subha Valdes on 12-02-2024 Clarity (U) Clear Clear [facility] Urine color determinationOrd ered By: Dalia Valdes on 12-02-2024 Color (U) Yellow Yellow [facility] Urine glucose detectionOrder ed By: Dalia Valdes on 12-02-2024 Glucose Ql (U) Normal mg/dl Normal [facility] Urine leukocyte esterase det ection by dipstickOrdered By: Dalia Valdes on 12-02-2024 Leukocyte esterase Test strip Ql (U) Negative Negative [facility] Urine pHOrdered By: Dalia hernandez on 12-02-2024 pH (U) 7.0 [pH] 5.0 - 8.0 [facility] Urine testOrdered By: Dalia Valdes on 12-02-2024 HCG ( test) Ql (U) Negative [facility] Comment on above: Very dilute urine sp ecimens, as indicated by a low specificgravity, may not contain entry level account representative levels of hCG. If is still suspected, a first morning urinespecimen should be collected 48 hours later and tested. Urine sediment bacteria coun t by microscopy (number/high power field)Ordered By: Dalia Valdes on 12-02-2024 Bacteria LM.HPF (Urine sed) [#/Area] 0 /[HPF] None Seen [facility] Urine specific gravity measu rementOrdered By: Dalia Valdes on 12-02-2024 Specific gravity (U) [Rel density] 1.010 1.002-1.03 0 [facility] Urine urobilinogen measureme ntOrdered By: Dalia Valdes on 12-02-2024 Urobilinogen Ql (U) Normal mg/dl Normal [facility] White blood cell (WBC) count Ordered By: Dalia Valdes on 12-02-2024 WBC (Bld) [#/Vol] 7.9 10*3/uL 4.4-11.0 [facility] White blood cell countOrdere d By: Dalia Maharajer on 12-02-2024 White blood cell count 0 SEEN /hpf 0-5 [facility] 36on 11-20-2024 36 Yes, patient needing appointment to discuss, LVM already done Normal [facility] 36 Called and LVM for p t to call office back to get surgery consult appt scheduled with dr munoz. Normal [facility] 36 Pt calling to schedu led surgery and has not heard back and wondering when she can get this scheduled Please advise Normal [facility] CORTISOL, 60 MIN POST COSYNT ROPIN INJECTIONon 11-20-2024 CORTISOL, POST 28.6 ug/dL Normal [facility] Comment on above: Order Comment: Speci men Type: BLOOD SPECIMENOrdering Facility: [facility] Address: [address] [place] [address] Performed By: #### C ORTPST ####[facility] LABCLIA [id number] [place] [address] [place] INTERPRETATION (ACTHST) Normal [facility] Comment on above: Order Comment: Speci men Type: BLOOD SPECIMENOrdering Facility: [facility] Address: [address] [place] [address] Result Comment: Afte r cortrosyn stimulation, a peak cortisol response greater than 12.6 ug/dL may indicate appropriate cortisol secretion. This result should be interpreted within the clinical context and other test results. Martin et al. Clinical Implications for Biochemical Diagnostic Thresholds of Adrenal Sufficiency Using a Highly Specific Cortisol Immunoassay. 2017 Clin. Biochem. 50:475-480. Performed By: #### C ORTPST ####[facility] LABCLIA [id number] [place] [address] [place] CORTISOL, BASALon 11-20-2024 Cortisol baseline [Mass/Vol] 13.3 ug/dL Normal 4.8-19.5 [facility] Comment on above: Order Comment: Speci men Type: BLOOD SPECIMENOrdering Facility: [facility] Address: [address] [place] [address] Result Comment: Prov ided reference range is from 6-10 AM sample collection time. Cortisol Reference Range: 6-10 AM = 4.8-19.5 ug/dL, 4-8 PM = 2.5-11.9 ug/dL Performed By: #### C ORTBAS ####[facility] LABCLIA [id number] [address] [place] HYDROXYPROGESTERONE-17on 17-HYDROXYPROGESTERONE QUANTITATIVE BY HPLC-MS/MS, SERUM OR PLASMA 118.50 ng/dL Normal <=206.00 [facility] Comment on above: Order Comment: Speci men Type: BLOOD SPECIMENOrdering Facility: [facility] Address: [address] [place] [address] Result Comment: INTE RPRETIVE INFORMATION for 17-Hydroxyprogesterone in females: Follicular 15 to 70 ng/dL Luteal 35 to 290 ng/dL REFERENCE INTERVAL: 17-Hydroxyprogesterone Qnt, HPLC-MS/MS Access complete set of age- and/or gender-specific reference intervals for this test in the [employer] Laboratory Test Directory ([email or web address]). This test was developed and its performance characteristics determined by [facility] [facility]. It has not been cleared or approved by the US Food and Drug Administration. This test was performed in a CLIA certified laboratory and is intended for clinical purposes. Performed By: [facility] [address] [place] [address] Professor Of German: Gary Reyes MD, PhD CLIA Number: [id number] Performed By: #### H PROG ####[facility] [id number] [place] [address] 17-HYDROXYPROGESTERONE QUANTITATIVE BY HPLC-MS/MS, SERUM OR PLASMA 37.10 ng/dL Normal <=206.00 [facility] Comment on above: Order Comment: Speci men Type: BLOOD SPECIMENOrdering Facility: [facility] Address: [address] [place] [address] Result Comment: INTE RPRETIVE INFORMATION for 17-Hydroxyprogesterone in females: Follicular 15 to 70 ng/dL Luteal 35 to 290 ng/dL REFERENCE INTERVAL: 17-Hydroxyprogesterone Qnt, HPLC-MS/MS Access complete set of age- and/or gender-specific reference intervals for this test in the [employer] Laboratory Test Directory ([employer]). This test was developed and its performance characteristics determined by [facility] [facility]. It has not been cleared or approved by the US Food and Drug Administration. This test was performed in a CLIA certified laboratory and is intended for clinical purposes. Performed By: [facility] [address] [place] [id number] Professor Of German: Gary Reyes MD, PhD CLIA Number: [id number] Performed By: #### H PROG ####[facility] LABORATORIESIA [id number] [place] [address] 11-14-[address] Sanchez want to sidhu ve an appt with her before rescheduling? [facility] 11-12-2024 36 Name of Caller: Moni uddley Contact Reason for Appointment: Patient is calling back to reschedule Surgery. Please call her back to discuss. Thank you. Office Name: ObGyn Medication Refills need, if any: No Medication Name: N/A [facility] 11-06-2024 CNPN Telephone (ENWSTR) -- JOSSE WAYNE ([id number]) 1985 F Date Time Provider Department 11/06/24 ZIYAD HARRELLWSEVERETTE During your visit today, we recorded the [...] up 7-10 days post lab draw. TRACIE Cole Angela 11/12/2024 12:32 PM Signed Lvm for patient to return the call to schedule Mariam Lewis 11/12/2024 2:03 PM Signed Monique Townsend 11/12/2024 2:57 PM Signed Spoke with patient [...] Fully Assessed Reason for Visit: Patient Question [5267] Primary Visit Diagnosis: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 [R79.89] Order(s):cosyntropin 0.25 mg injection (CORTROSYN)Disp: Rfl: HYDROXYPROGESTERONE-17 [SQHPROG] Order #: [id number] FUTURE Prescriptions as of 11/20/2024 - spironolactone [...] 11/20/2024 - (more content not included)... Normal [facility] Urgent Care Visit Reporton 0 11-04-2024 Urgent Care Visit Report [facility] [address], [address] [place] [id number] OFFICE VISIT Date of Service: 11/04/24 MR#: [id number] Acct: [id number] Name: JOSSE WAYNE Rep #: [id number] : 1985 Provider: ERVIN Harris Age/Sex: 39/F Location: [facility] Status: Signed Intake Vital Signs 10/08/23 14:07 [...] week. Taking mucinex over last 4 days. 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 No close contacts with similar complaints. [id number]-trf-qdfhhmb Mucinex taken over the last 4 days without assistance. Non-smoker. No other associated symptoms and no other alleviating/aggravating factors. ROS Const Constitutional: No other (as above) Exam Const General: cooperative, healthy appearing and no acute distress Nutritional Appearance: average body habitus Orientation: alert, awake HENNC Head: normal to inspection Ears: hearing grossly [...] or lesi (more content not included)... Normal [facility] 09-26-2024 [facility] Telephone (OBGYWM) -- JOSSE WAYNE ([id number]) 1985 F Date Time Provider Department 09/26/24 RICCO GANDHI During your visit today, we recorded the [...] cursed that she was done with the [facility] because her appointments are consisently rescheduled and [...] Status:Closed by AFUA WALKER on 09/26/24 Normal [facility] [facility] Auto (Bld)on 09-12 Erythrocyte distribution width (RBC) [Ratio] 12 % 11.5 - 15.0 % [facility] Hematocrit (Bld) [Volume fraction] 41.7 % 36.0 - 46.0 % [facility] Hemoglobin (Bld) [Mass/Vol] 14.1 g/dL 11.5 - 15.5 g/dL [facility] Interpretation and review of laboratory results Normal [facility] MCH (RBC) [Entitic mass] 29.1 pg 26.0 - 34.0 pg [facility] MCHC (RBC) [Mass/Vol] 33.8 g/dL 30.5 - 36.0 g/dL [facility] MCV (RBC) [Entitic vol] 86 fL 80.0 - 100.0 fL [facility] Nucleated RBC (Bld) [#/Vol] NINF [facility] Platelet mean volume (Bld) [Entitic vol] 10 fL 9.0 - 12.7 fL [facility] Platelets (Bld) [#/Vol] 311 10*3/uL [facility] RBC (Bld) [#/Vol] 4.85 10*6/uL 3.90 - 5.20 m/uL [facility] WBC (Bld) [#/Vol] 5.44 10*3/uL [facility] Erythrocyte distribution width (RBC) [Ratio] 12.0 % Normal 11.5-15.0 [facility] Comment on above: Order Comment: Speci men Type: BLOOD SPECIMENOrdering Facility: [facility] Address: [address] [place] [address] Performed By: #### 5 8410-2 ####[facility] CHRISTOPHER KAPADIATUSTINFRAN [id number] [address] [facility] Hematocrit (Bld) [Volume fraction] 41.7 % Normal 36.0-46.0 [facility] Comment on above: Order Comment: Speci men Type: BLOOD SPECIMENOrdering Facility: [facility] Address: [address] [place] [address] Performed By: #### 5 8410-2 ####[facility] [id number] [place] [address] [place] Hemoglobin (Bld) [Mass/Vol] 14.1 g/dL Normal 11.5-15.5 [facility] Comment on above: Order Comment: Speci men Type: BLOOD SPECIMENOrdering Facility: [facility] Address: [address] [place] [address] Performed By: #### 5 8410-2 ####[facility]USNCGUNN[facility] [id number] [place] [address] [place] MCH (RBC) [Entitic mass] 29.1 pg Normal 26.0-34.0 [facility] Comment on above: Order Comment: Speci men Type: BLOOD SPECIMENOrdering Facility: [facility] Address: [address] [place] [address] Performed By: #### 5 8410-2 ####[facility]ITALLIA [id number] [place] [address] [place] MCHC (RBC) [Mass/Vol] 33.8 g/dL Normal 30.5-36.0 [facility] Comment on above: Order Comment: Speci men Type: BLOOD SPECIMENOrdering Facility: [facility] Address: [address] [place] [address] Performed By: #### 5 8410-2 ####[facility] CAMPUSNCLI [id number] [place] [address] [place] MCV (RBC) [Entitic vol] 86.0 fL Normal 80.0-100.0 [facility] Comment on above: Order Comment: Speci men Type: BLOOD SPECIMENOrdering Facility: [facility] Address: [address] [place] [address] Performed By: #### 5 8410-2 ####[facility] CHRISTOPHER WADENCARLETH [id number] [place] [address] [place] Nucleated RBC (Bld) [#/Vol] 10*3/uL Normal <0.01 [facility] Comment on above: Order Comment: Speci men Type: BLOOD SPECIMENOrdering Facility: [facility] Address: [address] [place] [address] Performed By: #### 5 8410-2 ####[facility] KANGTUSTINNCARLETH [id number] [place] [address] [place] Platelet mean volume (Bld) [Entitic vol] 10.0 fL Normal 9.0-12.7 [facility] Comment on above: Order Comment: Speci men Type: BLOOD SPECIMENOrdering Facility: [facility] Address: [address] [place] [address] Performed By: #### 5 8410-2 ####[facility] CAMPUSNCLIA [id number] [place] [address] [place] Platelets (Bld) [#/Vol] 311 10*3/uL Normal 150-400 [facility] Comment on above: Order Comment: Speci men Type: BLOOD SPECIMENOrdering Facility: [facility] Address: [address] [place] [address] Performed By: #### 5 8410-2 ####[facility] CAMPUSNCLIA [id number] [place] [address] [place] RBC (Bld) [#/Vol] 4.85 10*6/uL Normal 3.90-5.20 [facility] Comment on above: Order Comment: Speci men Type: BLOOD SPECIMENOrdering Facility: [facility] Address: [address] [place], [place] [address], [place] [address] Performed By: #### 5 8410-2 ####[facility] CHRISTOPHER WADENCLIA [id number] [place] [address] [place] WBC (Bld) [#/Vol] 5.44 10*3/uL Normal 3.70-11.00 [facility] Comment on above: Order Comment: Speci men Type: BLOOD SPECIMENOrdering Facility: [facility] Address: [address] [place] [address] Performed By: #### 5 8410-2 ####[facility] CHRISTOPHER WADENCLIA [id number] [address] [place] CNOVon 09-12-2024 CNOV Office Visit (OBGYWM ) -- JOSSE WAYNE ([id number]) 1985 F Date Time Provider Department 09/12/24 10:00 AM CHARLETTE BRYANT OBGYWM During your visit today, we recorded the following information about you: Blood pressure Weight Height 128/86 139.2 kg 1.626 m Charlette Bryant APRN.CNKrzysztof 09/12/2024 1:03 PM Signed Patient declined traveling sales representative. Josse Gayle Wayne is a 39 year old female who presents for problem visit for constant bleeding since 05/2022. She reports daily bleeding and soaking through ultra tampons and pads. She was receiving care in [place] and was supposed to have surgery but had to cancel due to transportation reasons. Pelvic US on 01/2024: Endometrium is thickened, echogenic and uniform measuring 16.23mm. No increased blood flow is noted. Consider endometrial sampling if clinically indicated. * NO PATHOLOGY REPORT TO VIEW Patient had hysteroscopy [facility] on 03/08/24 and was supposed to have a repeat in 06/2024. She did not complete the repeat hysteroscopy. She wants to transfer to this office to have care in [place]. Patient is not currently sexually active. She does not use any hormonal control. Reports her periods have been all over the place her whole life. Patient is a poor historian. Difficult to keep patient focused at times. 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 (more content not included)... Normal [facility] Cancer Ag125 SerPl-aCncon Cancer Ag 125 Qn 8 [arb'U]/mL Normal <39 [facility] Comment on above: Order Comment: Speci men Type: BLOOD SPECIMENOrdering Facility: [facility] Address: [address] [place] [address] Result Comment: CA 1 25 test methodology [...] (CA 125 II) [package insert V 1.0 Afghan]. [employer], [place], [place] (December 2014) Performed By: #### 1 0334-1 ####[facility] LABCLIA [id number] [address] OF [facility] CNOVon 09-03-2024 CNOV Office Visit (ENWSTR ) -- JOSSE WAYNE ([id number]) 1985 F Date Time Provider Department 09/03/24 11:20 AM ZIYAD HARRELL ENWSTR During your visit today, we recorded the following information about you: Temperature Pulse Respiration Weight 98.8 degrees 91/minute 14/minute 139.2 kg Last Period 06/30/21 Ziyad Harrell MD 09/04/2024 7:07 PM Signed Endocrinology and Metabolism [facility] Follow up visit REASON FOR CONSULT: Evaluation of ovarian hyperandrogenism REQUESTING PHYSICIAN: MD AZEB Leslie is a 38 year old female presenting [...] 1 t (more content not included)... Normal [facility] Hemoglobin A1con 09-03-2024 HbA1c (Bld) [Mass fraction] 5.6 % Normal <=5.6 [facility] Comment on above: Result Comment: Norm al < 5.7 % Prediabetic 5.7 - 6.4 % Diabetic >or= 6.5 % Please note range changes. Performed By: #### L 784.9661 ####[facility] [id number] [place], [place], [id number] Hemoglobin A1c percentageOrd ered By: Rafia Bianchi on 09-03-2024 HbA1c (Bld) [Mass fraction] 5.6 % <5.7 [facility] Comment on above: Normal < 5.7 % Predi abetic 5.7 - 6.4 % Diabetic >or= 6.5 % Please note range changes. Cortis p Dex SerPl-mCncon Cortisol post dose dexamethasone [Mass/Vol] 0.8 ug/dL Normal <1.8 [facility] Comment on above: Order Comment: Ami sim Type: BLOOD SPECIMENOrdering Facility: [facility] Address: [address] [place] [address] Result Comment: Afte r overnight 1 mg dexamethasone, an child protective services specialist cortisol of <1.8 ug/dL may indicate an adequate cortisol suppression. This result should be interpreted within the clinical context and other test results. Wilder et al. Evidence for the Low Dose Dexamethasone Suppression Test to Screen for Jagdish's Syndrome - Recommendations for a Protocol for Biochemistry Laboratories. 1996 Rita. Clin. Biochem. 34 [phone]. Performed By: #### 3 016-3, 3024-7, 2842-3, 54973-6 ####[facility] LABCLIA [id number] [address] STATES OF [facility] DEXAMETHASONEon 08-06-2024 DEXAMETHASONE 410.0 ng/dL Normal [facility] Comment on above: Order Comment: Ami roney Type: BLOOD SPECIMENOrdering Facility: [facility] Address: [address] [place] [address] Result Comment: INTE RPRETIVE INFORMATION: Dexamethasone, Serum [...] developed and its performance characteristics determined by [facility] [facility]. It has not been cleared or approved by the US Food and Drug Administration. This test was performed in a CLIA certified laboratory and is intended for clinical purposes. Performed By: [facility] [address] [place] [address] Professor Of German: Gary Reyes MD, PhD CLIA Number: [id number] Performed By: #### D EXA ####[facility]IESCLIA [id number] [place] [address] DHEA-S BLDon 08-06-2024 DHEA-S [Mass/Vol] 148.6 ug/dL Normal 60.9-337.0 [facility] Comment on above: Order Comment: Speci men Type: BLOOD SPECIMENOrdering Facility: [facility] Address: [address] [place] [address] Result Comment: Refe rence ranges are age and gender specific. For additional information, reference range tables can be found in the laboratory test directory. The normal values are based on the following source: Dehydroepiandrosterone sulfate (DHEA S) [package insert V 17.0 Afghan]. [employer], [place], [place]: October 2012. Performed By: #### 1 0501-5, 2243-4, DHEAS, 74091-0 ####[facility] LABCLIA [id number] [place] [address] [place] Estradiol [facility] E2 [Mass/Vol] 260 pg/mL Normal [facility] Comment on above: Order Comment: Speci men Type: BLOOD SPECIMENOrdering Facility: [facility] Address: [address] [place] [address] Result Comment: This test is not suitable [...] 3243 pg/mL Second trimester : 1561 to 23787 pg/mL Third trimester : 8285 to >57430 pg/mL Post-menopausal Estradiol reference range: < 41 pg/mL Reference: 1. Estradiol - E2 (Estradiol III) [package insert V 3.0 Afghan]. [facility], [place], [place], August 2015. Performed By: #### 1 0501-5, 2243-4, DHEAS, 45351-2 ####[facility] LABCLIA [id number] [place] [address] [place] FSH SerPl-aCncon 08-06-2024 Follitropin Qn 2.5 m[IU]/mL Normal See comment [facility] Comment on above: Order Comment: Speci men Type: BLOOD SPECIMENOrdering Facility: [facility] Address: [address] [place] [address] Result Comment: Refe rence range: Follicular: 3.5-12.5 mIU/mL Ovulation: 4.7-21.5 mIU/mL Luteal: 1.7-7.7 mIU/mL Postmenopausal: 25.8-134.8 mIU/mL Performed By: #### 1 0501-5, 2243-4, DHEAS, 17731-2 ####[facility] LABCLIA [id number] [place] [address] [place] HYDROXYPROGESTERONE-17on 17-HYDROXYPROGESTERONE QUANTITATIVE BY HPLC-MS/MS, SERUM OR PLASMA 276.05 ng/dL High <=206.00 [facility] Comment on above: Order Comment: Speci men Type: BLOOD SPECIMENOrdering Facility: [facility] Address: [address] [place] [address] Result Comment: INTE RPRETIVE INFORMATION for 17-Hydroxyprogesterone in females: Follicular 15 to 70 ng/dL Luteal 35 to 290 ng/dL REFERENCE INTERVAL: 17-Hydroxyprogesterone Qnt, HPLC-MS/MS Access complete set of age- and/or gender-specific reference intervals for this test in the [email or web address] Laboratory Test Directory ([employer]fusion). This test was developed and its performance characteristics determined by [facility] [facility]. It has not been cleared or approved by the US Food and Drug Administration. This test was performed in a CLIA certified laboratory and is intended for clinical purposes. Performed By: [facility] [address] [place] [address] Professor Of German: Gary Reyes MD, PhD CLIA Number: [id number] Performed By: #### H PROG ####[facility]ITAL[facility] [id number] [place] [address] LH SerPl-aCncon 08-06-2024 Lutropin Qn 9.4 m[IU]/mL Normal See comment [facility] Comment on above: Order Comment: Speci men Type: BLOOD SPECIMENOrdering Facility: [facility] Address: [address] [place] [address] Result Comment: Refe rence range: Follicular: 2.4-12.6 mIU/mL Midcycle: 14.0-95.6 mIU/mL Luteal: 1.0-11.4 mIU/mL [place]: 7.7-58.5 mIU/mL Performed By: #### 1 0501-5, 2243-4, DHEAS, 70484-8 ####[facility] LABCLIA [id number] [place] [address] [place] Prolactin SerPl-mCncon 08-06 Prolactin [Mass/Vol] 11.3 ng/mL Normal 4.4-33.8 [facility] Comment on above: Order Comment: Speci men Type: BLOOD SPECIMENOrdering Facility: [facility] Address: [address] [place] [address] Result Comment: Prol actin test is performed using the [facility] Electrochemiluminescence Immunoassay method. Results obtained with different methods or kits cannot be used interchangeably. Performed By: #### 3 016-3, 3024-7, 2842-3, 34549-9 ####[facility] LABCLIA [id number] [place] [address] [place] T4 Free SerPl-mCncon 025 Free T4 [Mass/Vol] 0.7 ng/dL Low 0.9-1.7 [facility] Comment on above: Order Comment: Speci men Type: BLOOD SPECIMENOrdering Facility: [facility] Address: [address] [place] [address] Performed By: #### 3 016-3, 3024-7, 2842-3, 15523-4 ####[facility] LABCLIA [id number] [place] [id number] [place] TSH SerPl-aCncon 08-06-2024 TSH Qn 1.110 m[IU]/L Normal 0.270-4.20 0 [facility] Comment on above: Order Comment: Speci men Type: BLOOD SPECIMENOrdering Facility: [facility] Address: [address] [place] [address] Result Comment: If t he patient is , TSH reference range varies by gestational period: First Trimester (weeks 9-12): 0.180-2.990 mIU/L Second Trimester: 0.110-3.980 mIU/L Third Trimester: 0.480-4.710 mIU/L Kennedy Lobo et al. A Practical Approach for the Verifications and Determination of Site- and Trimester-Specific Reference Intervals for Thyroid Function tests in . Thyroid, 2019:29:3:412-420. Carlos Enrique E, et al. 2017 Guidelines of the [place] Thyroid Association for the Diagnosis and Management of Thyroid Disease during and the . Thyroid, 2017:27:3:315-389. Performed By: #### 3 016-3, 3024-7, 2842-3, 80106-9 ####[facility] LABIA [id number] [place] [id number] [facility] OF [place] 36on 06-18-2024 36 Called and LVM for p t letting her know her surgery is cancelled for tomorrow 06/19/24 due to not having a PAT. Told pt to call office to get that rescheduled. Normal [facility] 30on 06-15-2024 30 Problem: Potential f or [...] identification and development of sleep hygiene program [facility] 94on 06-15-2024 94 Department: [facility] ACTIVITIES THERAPY Group Topic: Leisure Skills Group Date: 06/15/2024 Start Time: 1300 End Time: 1330 Facilitators: Reshma Bloom Number of Participants: 5 Group Name: Social Skills Treatment Modality: Leisure Development and Skills Training Purpose: enhance coping skills Summary: To expose patients to healthy leisure outlets. 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 I messaged RN assigned to patient to let them know and gave slip to Benjamin Taylor with protective services [facility] Nursing Noteon 06-15-2024 Nursing Note [...] concerns. Safety checks maintained per protocol. Normal [facility] Nursing Note Pt refused labs. [facility] Progress Noteon 06-15-2024 Progress Note Patient assigned to this RD. Discharge plan for today noted. Will hold off on full nutrition assessment. [facility] Progress Note Nutrition rescreen completed. Patient assigned a level 1. [facility] 30on 06-14-2024 30 Problem: Potential [...] breathing and relaxation group Outcome: Progressing Normal [facility] [id number] 06-14-2024 [id number] Behavioral Health Psycho-Social Assessment (Social Work) Date: 06/14/2024 Patient Name: Josse Wayne : 1985 Identifying Information: Patient is a 38 year old female who presented for aggressive behavior. Presenting Problem: Patient reports she is here because she wants to have a voice and gets agitated when she doesn't. Per ED note: Patient arrives from first floor [facility] practice when she began to yell she [...] sit up in bed to talk with FAST FOOD RESTAURANT MANAGER. Psychiatric History: Patient was admitted in [place] in 2017 and 2018. Substance Abuse/Use: Patient denies substance use. Medical/Self-care Issues: Patient has epilepsy. Legal/Trauma/ History: Patient has disorderly conduct and obstructing official business. Patient reported trauma history. She denied service. Family Constellation/Childhood History: Patient reported that she grew up living with her mom and some of her relatives. She currently resides in [place]. Education/Work: Patient completed high school. She does [...] feelings.) Plan: Patient is not signed in. FAST FOOD RESTAURANT MANAGER will follow patient and work with patient [...] to contact the dictating provider for clarification. [facility] Nursing Noteon 06-14-2024 Nursing Note [...] concerns, changes in condition or any questions. [facility] Nursing Note Pt is room. Pt refus es medication until she can take her xanax with it. Pt denies SI/hI. Pt denies AH/VH. Safety checks maintained per unit policy. [facility] Nursing Note Verified pt xanax do [facility]. Pt takes 1 mg at bedtime and 2 mg twice a day. [facility] Nursing Note Pt refused labs this AM when Rn approached patient just stated nope, no labs [facility] [id number] 06-13-2024 [id number] Patient arrived to nit extremely agitated , yelling that 'she was not late and the elevator doesn't work and you can't find the stairs. workplace rehabilitation officer arrived on unit and patient screaming at officer , yelling that shooting that HORSE TREKKING GUIDE was the right thing to do; officer escorted patient out of unit. Dr. Munoz's office called; spoke with Cecilio who states patient yells and cusses at them all the time. Belem Bashir director of teenage activities notified. [facility] 30on 06-13-2024 30 Problem: Potential [...] and relaxation group Outcome: Not Progressing Normal [facility] CBC WITH AUTO DIFFERENTIALon 06-13-2024 Basophils (Bld) [#/Vol] 0.0 10*3/uL Normal 0.0-0.2 [facility] Comment on above: Performed By: #### L [id number] #### Massage Therapist: DEEPAK HAGAN ([id number]) [facility]) [address] [place] [address] Basophils/100 WBC (Bld) 0.7 % Normal 0.0-2.0 [facility] Comment on above: Performed By: #### L [id number] #### Massage Therapist: DEEPAK HAGAN ([id number]) [facility] ([facility]) [address] [place] [address] Eosinophils (Bld) [#/Vol] 0.0 10*3/uL Normal 0.0-0.5 [facility] Comment on above: Performed By: #### L [id number] #### Massage Therapist: DEEPAK HAGAN ([id number]) [facility] ([facility]) [address] Eosinophils/100 WBC (Bld) 1.0 % Normal 0.0-6.0 [facility] Comment on above: Performed By: #### L [id number] #### Massage Therapist: DEEPAK HAGAN ([id number]) [facility] ([facility]) [address] [place] [address] Erythrocyte distribution width (RBC) [Ratio] 14.2 % Normal 11.5-15.0 [facility] Comment on above: Performed By: #### L [id number] #### Massage Therapist: DEEPAK HAGAN ([id number]) [facility] ([facility]) [address] Hematocrit (Bld) [Volume fraction] 40.9 % Normal 35.0-47.0 [facility] Comment on above: Performed By: #### L [id number] #### Massage Therapist: DEEPAK HAGAN ([phone]) [facility] ([facility]) [address] Hemoglobin (Bld) [Mass/Vol] 13.9 g/dL Normal 11.7-16.0 [facility] Comment on above: Performed By: #### L [id number] #### Massage Therapist: DEEPAK HAGAN ([id number]) [facility] ([facility]) [address] IMMATURE GRANS % 0.2 % Normal 0.0-2.0 [facility] Comment on above: Performed By: #### L [id number] #### Massage Therapist: DEEPAK HAGAN ([id number]) [facility] ([facility]) [address] IMMATURE GRANS ABSOLUTE 0.0 10*3/uL Normal <0.1 [facility] Comment on above: Performed By: #### L [id number] #### Massage Therapist: DEEPAK HAGAN ([id number]) [facility] ([facility]) [address] Lymphocytes (Bld) [#/Vol] 1.5 10*3/uL Normal 1.0-4.3 [facility] Comment on above: Performed By: #### L [id number] #### Massage Therapist: DEEPAK HAGAN ([phone]) [facility] ([facility]) [address] Lymphocytes/100 WBC (Bld) 35.9 % Normal 15.0-45.0 [facility] Comment on above: Performed By: #### L [id number] #### Massage Therapist: DEEPAK HAGAN ([id number]) [facility] ([facility] [address] MCH (RBC) [Entitic mass] 27.9 pg Normal 26.0-34.0 [facility] Comment on above: Performed By: #### L [id number] #### Massage Therapist: DEEPAK HAGAN ([phone]) [facility] ([facility] [address] MCHC 34.0 % Normal 30.5-36.0 [facility] Comment on above: Performed By: #### L [id number] #### Massage Therapist: DEEPAK HAGAN ([phone]) [facility] [facility] [address] [place] [address] MCV (RBC) [Entitic vol] 82.1 fL Normal 77.0-99.0 [facility] Comment on above: Performed By: #### L [id number] #### Massage Therapist: DEEPAK HAGAN ([id number]) [facility] ([facility]) [address] [place] [address] Monocytes (Bld) [#/Vol] 0.4 10*3/uL Normal 0.0-0.9 [facility] Comment on above: Performed By: #### L [id number] #### Massage Therapist: DEEPAK HAGAN ([id number]) [facility] ([facility]) [address] Monocytes/100 WBC (Bld) 8.7 % Normal 5.0-13.0 [facility] Comment on above: Performed By: #### L [id number] #### Massage Therapist: DEEPAK HAGAN ([id number]) [facility] ([facility]) [address] NEUTROPHILS ABSOLUTE 2.2 10*3/uL Normal 1.8-7.5 [facility] Comment on above: Performed By: #### L [id number] #### Massage Therapist: DEEPAK HAGAN ([id number]) [facility] ([facility]) [address] Neutrophils/100 WBC (Bld) 53.5 % Normal 38.0-82.0 [facility] Comment on above: Performed By: #### L [id number] #### Massage Therapist: DEEPAK HAGAN ([id number]) [facility] ([facility]) [address] NRBC 0.0 /100 WBCs Normal 0.0-2.0 [facility] Comment on above: Performed By: #### L [id number] #### Massage Therapist: DEEPAK HAGAN ([id number]) [facility] ([facility]) [address] Platelet mean volume (Bld) [Entitic vol] 9.7 fL Normal 9.0-12.7 [facility] Comment on above: Performed By: #### L [id number] #### Massage Therapist: DEEPAK HAGAN ([id number]) [facility] ([facility]) [address] Platelets (Bld) [#/Vol] 291 10*3/uL Normal 140-440 [facility] Comment on above: Performed By: #### L [id number] #### Massage Therapist: DEEPAK HAGAN ([id number]) [facility] ([facility]) [address] [place] [address] [place] RBC (Bld) [#/Vol] 4.98 10*6/uL Normal 3.80-5.20 [facility] Comment on above: Performed By: #### L [id number] #### Massage Therapist: DEEPAK HAGAN ([id number]) [facility] ([facility]) [address] [place] [address] [place] WBC (Bld) [#/Vol] 4.0 10*3/uL Normal 3.6-10.7 [facility] Comment on above: Performed By: #### L [id number] #### Massage Therapist: DEEPAK HAGAN ([id number]) [facility] ([facility]) [address] COMPREHENSIVE METABOLIC PANE Gonzalez 06-13-2024 Albumin [Mass/Vol] 3.7 g/dL Normal 3.5-5.0 [facility] Comment on above: Performed By: #### L [id number] #### Massage Therapist: DEEPAK HAGAN ([id number]) [facility] ([facility] [address] ALP [Catalytic activity/Vol] 61 U/L Normal 40-150 [facility] Comment on above: Performed By: #### L [id number] #### Massage Therapist: DEEPAK HAGAN ([id number]) [facility] ([facility] [address] ALT [Catalytic activity/Vol] 60 U/L High <30 [facility] Comment on above: Performed By: #### L [id number] #### Massage Therapist: DEEPAK HAGAN ([id number]) [facility] ([facility] [address] Anion gap [Moles/Vol] 12 mmol/L Normal 3-13 [facility] Comment on above: Performed By: #### L [id number] #### Massage Therapist: DEEPAK HAGAN ([id number]) [facility] ([facility] [address] [place] [address] [place] AST [Catalytic activity/Vol] 57 U/L High <34 [facility] Comment on above: Performed By: #### L [id number] #### Massage Therapist: DEEPAK HAGAN ([id number]) [facility] ([facility] [address] Bilirubin [Mass/Vol] 0.7 mg/dL Normal <1.2 [facility] Comment on above: Performed By: #### L [id number] #### Massage Therapist: DEEPAK HAGAN ([id number]) [facility] ([facility]) [address] Calcium [Mass/Vol] 9.1 mg/dL Normal 8.4-10.2 [facility] Comment on above: Performed By: #### L [id number] #### Massage Therapist: DEEPAK HAGAN ([id number]) [facility] ([facility] [address] Chloride [Moles/Vol] 110 mmol/L High 98-107 [facility] Comment on above: Performed By: #### L [id number] #### Massage Therapist: DEEPAK HAGAN ([id number]) [facility] ([facility]) [address] CO2 [Moles/Vol] 18 mmol/L Low 22-29 [facility] Comment on above: Performed By: #### L [id number] #### Massage Therapist: DEEPAK HAGAN ([id number]) [facility] ([facility]) [address] Creatinine [Mass/Vol] 0.84 mg/dL Normal 0.57-1.11 [facility] Comment on above: Performed By: #### L [id number] #### Massage Therapist: DEEPAK HAGAN ([id number]) [facility] ([facility]) [address] GLOMERULAR FILTRATION RATE ML/MIN/1.73 SQ M.PREDICTED >90.0 Normal >60.0 [facility] Comment on above: Result Comment: Calc ulation based on the Chronic Kidney Disease Epidemiology Collaboration (CKD-EPI) equation refit without adjustment for race Performed By: #### L [id number] #### Massage Therapist: DEEPAK HAGAN ([id number]) [facility] ([facility] [address] [place] [address] [place] Glucose [Mass/Vol] 138 mg/dL High 74-100 [facility] Comment on above: Performed By: #### L [id number] #### Massage Therapist: DEEPAK HAGAN ([id number]) [facility] ([facility]) [address] [place], [place] [id number] [place] [address] Potassium [Moles/Vol] 3.6 mmol/L Normal 3.5-5.1 [facility] Comment on above: Result Comment: [facility] potassium values may be up to 0.5 mmol/L lower than serum values. Performed By: #### L [id number] #### Massage Therapist: DEEPAK HAGAN ([id number]) [facility] ([facility] [address] Protein [Mass/Vol] 7.1 g/dL Normal 6.4-8.3 [facility] Comment on above: Performed By: #### L [id number] #### Massage Therapist: DEEPAK HAGAN ([id number]) [facility] ([facility]) [address] [place], [place] [address] [place] [address] Sodium [Moles/Vol] 140 mmol/L Normal 136-145 [facility] Comment on above: Performed By: #### L [id number] #### Massage Therapist: DEEPAK HAGAN ([id number]) [facility] ([facility]) [address] [place], [place] [address] [place] [address] Urea nitrogen [Mass/Vol] 8 mg/dL Normal 8-21 [facility] Comment on above: Performed By: #### L [id number] #### Massage Therapist: DEEPAK HAGAN ([id number]) [facility] ([facility]) [address] [place], [place] [address] [place] [address] DRUGS OF ABUSEon 06-13-2024 AMPHETAMINE SCREEN Negative Normal [facility] Comment on above: Performed By: #### L [id number] #### Massage Therapist: DEEPAK HAGAN ([id number]) [facility] ([facility]) [address] [place] [address] [place] BARBITURATES SCREEN Negative Normal [facility] Comment on above: Performed By: #### L [id number] #### Massage Therapist: DEEPAK HAGAN ([id number]) [facility] ([facility]) [address] BENZODIAZEPINE SCREEN Positive Normal [facility] Comment on above: Performed By: #### L [id number] #### Massage Therapist: DEEPAK HAGAN ([id number]) [facility] ([facility]) [address] COCAINE METAB. SCREEN Negative Normal [facility] Comment on above: Performed By: #### L [id number] #### Massage Therapist: DEEPAK HAGAN ([id number]) [facility] ([facility]) [address] FENTANYL SCREEN, UR QUAL Negative Normal [facility] Comment on above: Result Comment: [...] under separate order. Performed By: #### L [id number] #### Massage Therapist: DEEPAK HAGAN ([id number]) [facility] ([facility]) [address] METHADONE SCREEN Negative Normal [facility] Comment on above: Performed By: #### L [id number] #### Massage Therapist: DEEPAK HAGAN ([id number]) [facility] ([facility]) [address] OPIATES SCREEN Negative Normal [facility] Comment on above: Performed By: #### L [id number] #### Massage Therapist: DEEPAK HAGAN ([id number]) [facility] ([facility]) [address] OXYCODONE SCREEN Negative Normal [facility] Comment on above: Performed By: #### L [id number] #### Massage Therapist: DEEPAK HUGGINSARA ([id number]) [facility] ([facility]) [address] PHENCYCLIDINE SCREEN Negative Normal [facility] Comment on above: Performed By: #### L [id number] #### Massage Therapist: DEEPAK HUGGINSARA ([id number]) [facility] [address] ECG 12-LEADon 06-13-2024 ECG 12-LEAD IMPRESSION: Sinus tachycardia No significant change from previous ekg Electronically Signed On 06-13-2024 20:23:19 EDT by Michelle Murray [facility] ED Nursing Noteon 06-13-2024 ED Nursing Note Report given to Patt 5 RN [facility] ED Nursing Note Protective services called to bedside as she became upset with staff thinking they were laugher at her she started yelling and striking her head into the wall. [facility] ED Nursing Note Patient arrives from first floor [facility] practice when she began to yell she was being held hostage and started to hit self in the face and bang her head into the wall. She also threatened harm to everyone around her. Patient has a past history of mental health issues and has been non-complaint with her medication. [facility] ED Provider Noteon ED Provider [...] of psychiatric evaluation. Patient was at the [place] [facility] center for plans of [...] Yes Comment: occ Drug use: Never SCREENINGS Garnett Coma Scale Best Eye Response: Spontaneous Best Verbal Response: Oriented Best Motor Response: Follows commands Garnett Coma Scale Score: 15 PHYSICAL EXAM ED [...] Affect is (more content not included)... Normal [facility] ETHANOLon 06-13-2024 ETHANOL IN SER/PLAS <10 Normal <10 [facility] Comment on above: Result Comment: BON Wilson COMMENTS: ILLUMINATOR depression is seen >100 mg/dL. NOTE: This result is for medical treatment only. Analysis performed using non-forensic procedures. Performed By: #### L [id number] #### Massage Therapist: DEEPAK HAGAN ([id number]) [facility] [address] Nursing Noteon 06-13-2024 Nursing Note Pt arrived to unit 2 220 via wheelchair with tire center supervisor and brave officers. Pt came from [place] [facility]. Pt was calm upon arrival but during intake she was being racially inappropriate with staff. Pt wears glasses, states she needs bigger sizes of clothes, tire center supervisor was notified and bigger outfit given, [...] safety checks. [facility] when RN attempted to verify the xanax dosage and prescription. Will attempt in am, pharmacy opens at 8am Normal [facility] SARS-COV-2 ANTIGENon 025 SARS-COV-2 ANTIGEN SARS-COV-2 ANTIGEN - BINAX Reference Negative Negative A negative result does not rule out the possibility of SARS-CoV-2 infection. NAAT-based methods should be considered for symptomatic patients presenting greater than seven days after onset of symptoms. Method: Lateral flow immunoassay. Fact sheets for healthcare providers and patients can be found at the following sites: https://www.fda.gov/media/ 350591/download https://www.Intellikine.gov/media/ 173788/download [facility] Comment on above: Performed By: #### L [id number] #### Massage Therapist: DEEPAK HAGAN ([id number]) [facility] ([facility]) [address] [place] [address] 36on 06-12-2024 36 Pt called back demond aguilar to keep the surgery and states she will have a ride for her PAT appt. Surgery is now staying. [facility] 36 Called pt in regards [...] that is scheduled on 06/19/24 with Tammy. [facility] CNOVon 06-03-2024 CNOV Office Visit (ENWSTR ) -- JOSSE WAYNE ([id number]) 1985 F Date Time Provider Department 06/03/24 1:00 PM ZIYAD HARRELL ENWSTR During your visit today, we recorded the following information about you: Pulse Respiration Blood pressure Weight 100/minute 16/minute 136/86 142.6 kg Ziyad Harrell MD 06/03/2024 6:32 PM Signed Endocrinology and Metabolism [facility] Initial Clinic Visit Note REASON FOR CONSULT: Evaluation of ovarian hyperandrogenism REQUESTING PHYSICIAN: Yessi Munoz MD [address] [facility] [address] My final recommendations will be communicated back [...] not t (more content not included)... Normal [facility] 37on 05-07-2024 37 Continue Keppra 1000 mg twic daily Follow up in 1 year or sooner if needed Normal [facility] Office Visiton 05-07-2024 Follow-up visit [id number] Yamilka Wayne Malachi 1985 F Date Provider Department Center 05/07/2024 [id number]-W[place]ICNOGSMDEMETRIUS [facility]ERT[place] [facility] SB PARTH None Family History Problem Relation Age of Onset Heart attack Maternal Grandfather Family Status - Relation Status Age at Maternal Grandfather Father Alive Mother Notes: cardiac arrest Level of Service:35327 [place] OFFICE/OUTPATIENT ESTABLISHED LOW MDM 20 MIN Reason for Visit and Comments: Follow-up [278856] Seizures [97] Normal [facility] Progress Noteon 05-07-2024 Progress Note Visit [...] 10/28/2020 VITAMIN B12: No results found for: [id number] No results found for: PHENYTOIN, PHENOBARB, VALPROATE, CBMZ No components found for: TOPIRA @R (more content not included)... Normal [facility] CBC W/Diff, Automatedon 04-13 Absolute Lymph 2.03 X10 3/uL Normal 0.83-4.51 [facility] Comment on above: Performed By: #### L 100.0100 #### [facility] [address] [place], [address] Absolute Neut 3.4 X10 3/uL Normal 2.0-7.7 [facility] Comment on above: Performed By: #### L 100.0100 #### [facility] [address] [place], [address] Basophils/100 WBC (Bld) 0.7 % Normal 0-1 [facility] Comment on above: Performed By: #### L 100.0100 #### [facility] [address] [place], [address] Eosinophils/100 WBC (Bld) 0.5 % Normal 0-5 [facility] Comment on above: Performed By: #### L 100.0100 #### [facility] [address] [place], [address] Erythrocyte distribution width (RBC) [Ratio] 12.9 % Normal 11.6-14.6 [facility] Comment on above: Performed By: #### L 100.0100 #### [facility] [address] [place], [address] Hematocrit (Bld) [Volume fraction] 42.1 % Normal 37-47 [facility] Comment on above: Performed By: #### L 100.0100 #### [facility] [address] [place], [address] Hemoglobin (Bld) [Mass/Vol] 13.7 g/dL Normal 12.0-15.0 [facility] Comment on above: Performed By: #### L 100.0100 #### [facility] [address] [place], [address] IG% 0.500 Normal 0.0-0.9 [facility] Comment on above: Result Comment: IG% - Immature Granulocytes (promyelocytes, myelocytes and metamyelocytes) > 1% indicates that a LEFT SHIFT is Present. Performed By: #### L 100.0100 #### [facility] [address] [place], [address] Lymphocytes/100 WBC (Bld) 33.9 % Normal 19-41 [facility] Comment on above: Performed By: #### L 100.0100 #### [facility] [address] [place], [address] MCH (RBC) [Entitic mass] 27.2 pg Normal 27.0-32.0 [facility] Comment on above: Performed By: #### L 100.0100 #### [facility] [address] [place], [address] MCHC (RBC) [Mass/Vol] 32.5 g/dL Normal 32-36 [facility] Comment on above: Performed By: #### L 100.0100 #### [facility] [address] [place], [address] MCV (RBC) [Entitic vol] 83.7 fL Normal 81-99 [facility] Comment on above: Performed By: #### L 100.0100 #### [facility] [address] [place], [address] Monocytes/100 WBC (Bld) 7.4 % Normal 0-10 [facility] Comment on above: Performed By: #### L 100.0100 #### [facility] [address] [place], [address] Neutrophils/100 WBC (Bld) 57.0 % Normal 47-70 [facility] Comment on above: Performed By: #### L 100.0100 #### [facility] [address] [place], [address] Nucleated RBC (Bld) [#/Vol] 0 10*3/uL Normal 0-5 [facility] Comment on above: Performed By: #### L 100.0100 #### [facility] [address] [place], [address] Platelet mean volume (Bld) [Entitic vol] 10.7 fL Normal 6.2-12.0 [facility] Comment on above: Performed By: #### L 100.0100 #### [facility] [address] [place], [address] Platelets (Bld) [#/Vol] 290 10*3/uL Normal 150-450 [facility] Comment on above: Performed By: #### L 100.0100 #### [facility] [address] [place], [address] RBC (Bld) [#/Vol] 5.03 10*6/uL Normal 4.2-5.4 [facility] Comment on above: Performed By: #### L 100.0100 #### [facility] [address] [place], [address] RDW SD 39.0 fl Normal 35.1-43.9 [facility] Comment on above: Performed By: #### L 100.0100 #### [facility] [address] [place], [address] WBC (Bld) [#/Vol] 6.0 10*3/uL Normal 4.4-11.0 [facility] Comment on above: Performed By: #### L 100.0100 #### [facility] [address] [place], [address] 36on 04-23-2024 36 Noted [facility] 04-22-2024 29 Addended by: ANGELLA ONEILL on: 04/22/2024 04:14 PM Modules accepted: Orders [facility] 04-22-2024 [address] Munoz [facility] 36 Patient states she c ould not get into [place] and would like the order sent to Dr. Ziyad Harrell at [facility] [address] Specialty [phone] [facility] 36on 04-19-2024 [address] Munoz [facility] Office Visiton 03-25-2024 Follow-up visit [id number] Yamilka Wayne 1985 F Date Provider Department Center 03/25/2024 [id number]-OLXUMIIIJIYESSI SHABAZZ JAKE OB [facility] OB Offi Family History Problem Relation Age of Onset Heart attack Maternal Grandfather Family Status - Relation Status Age at Maternal Grandfather Father Alive Mother Notes: cardiac arrest Level of Service:16134 [place] OFFICE/OUTPATIENT ESTABLISHED MOD MDM 30 MIN Reason for Visit and Comments: Post-op Visit [559] - 2 week post op hysteroscopy DC on 03/08 [facility] Progress Noteon 03-25-2024 Progress Note [...] visit: PCOS (polycystic ovarian syndrome) (Primary) - [facility] Endocrinology; Future Endometrial hyperplasia Other orders - megestrol (Megace) 20 MG tablet; Take 1 tablet (20 mg total) by mouth 2 times daily. Megace Follow up 3 months repeat D&C Follow up in about 3 months (around 06/23/2024). Normal [facility] 29on 03-14-2024 29 Addended by: DARRELL STERN on: 03/14/2024 09:49 AM Modules accepted: Orders [facility] 36on 03-14-2024 36 Spoke with pt. She i s good on refills now. Follow up scheduled for 05/07/24 [facility] 36 Message released to patient as written. Patient's further questions if applicable: Please send to: [id number] - [place], [place] - [address] [place] [address] Were all questions from office addressed or relayed to the patient from encounter: Yes [facility] 36 Lm for patient to tx ll the office back, please relay providers message. Normal [facility] 36 I got a refill reque st for her Keppra but it is asking to send to [facility] Can you find out where she wants refill sent to? [facility] Nursing Noteon 03-08-2024 Nursing Note Patient stepped out from behind cubicle curtain , yelling because staff were taking too long with attempting to arrange transportation for discharge. Patient abruptly left PACU into corridor on second floor followed by Protective Services. [facility] Nursing Note Patient was given a copy of her homegoing instructions and proceeded to tear the packet up. Normal [facility] Nursing Note Patient was in bed w ith curtain partially closed. Dressing self. When explaining to patient she can not not walk to [facility] to find a ride home to [place]. Patient began yelling and screaming that she was leaving and she didn't care what anyone said. Patient became more enraged with yelling and screaming. Raya Atwood called. [facility] protective services immediately arrived to the PACU and continued to attempt to deescalate the situation. It was explained to patient that we cannot allow her to walk a couple of blocks to [facility] and await a ride. Nursing Electric Knife Operator notified and on site in PACU. [facility] Nursing Note Patient does not wan t to medicated at this time [facility] Nursing Note Patient states pain has gone to a 3. Much less discomfort and cramping. Normal [facility] Nursing Note Both Dr. Munoz and Dr. Prater aware that pt came by [employer] today and states very tearfully that she has no one to pick her up. Pt notified of risks and still wishes to proceed. [facility] Nursing Note Patient educated on importance of coughing/ deep breathing after surgery to reduce risk of pneumonia. Patient educated on importance of early mobility to reduce the risk of blood clots. Falls prevention information reviewed with patient. Post-operative pain control and ways to prevent constipation discussed with patient. [facility] Op Noteon 03-08-2024 Op Note [...] to the recovery room in stable condition. [facility] [id number] 03-04-2024 [id number] Medication List Accurate as of March 04, [...] your scheduled surgery time. Please bring your [facility] Surgical folder and medication list with you day of surgery. We encourage you to write down any questions you may have for the surgeon, anesthesiologist, or other members of the surgical team and bring it with you the day of surgery. Please bring photo ID and insurance information.[place]: Arrive at the main entrance (not the ER entrance). Signal Processing Engineer parking is available for a fee. All patients must stop at the registration department (which is the first department past the [employer] shop) North elevators are near the registration department Take elevator to 2nd floor - surgical waiting lobby to the left Proceed through door to the Same Day Surgery desk [facility] 36on 02-26-2024 36 PAT: by phone 2023 at 9 am SX: 03.08.2024 at 3 pm arrival at 1 pm Post op 03.25.2024 at 1:45 pm Instructions given. [facility] Cerv Spine 4 or 5 [facility]son Cerv Spine 4 or 5 Views [facility] [address] [place] [address] [id number] Cerv Spine 4 or 5 Views MR#: [id number] Acct: [id number] Name: JOSSE WAYNE Rep #: [id number] : 1985 F 38 From: Jean-Claude Gandara MD PCP: Dr. Peter Maya MD Status: REG CL Study: Cerv Spine 4 or 5 Views Date of Exam: 02/06/24 Exam# [id number] Ordering Dr: Peter Maya MD [id number] EXAM: XR CERVICAL SPINE, 4 OR 5 [...] EST , CC: Dr. Peter Maya MD Oyster Shipper: Signed [facility] 36on 02-05-[address] Sanchez called and rev iewed US results. Dr. Sanchez wanting to do a hysteroscopy and D&C. I called patient same day on 02/04 for consent forms. Pt declines coming to office to sign forms. Pt refuses to sign up for MyChart, she states that she doesn't have internet. I asked horse stud manager what other options we can do. Shobha says that we can mail her surgery consent forms and she can either mail them back or bring them day of surgery. I then called and LVM for patient to update her. Surgery consent forms are mailed out. [facility] 36 Dr. Sanchez called patient to review US [facility] Progress Noteon 02-05-2024 Progress Note Discussed this. Sherie lobo bleeding. Megace and D&C. [facility] 36on 01-30-2024 36 Name of caller: Moni Wayne Contact phone number: [phone] Relationship to Patient: patient Provider: Dr Munoz Practice: [facility] Chief Complaint/Reason for Call: See Triage 01.25.24. Pt is demanding a call from [facility] as to why she was lied to [...] business hours to return their call: Yes [facility] 36on 01-25-2024 36 Called and LVM to sidhu ve pt schedule an appointment to review results, review bloodwork, and discuss concerns for yeast infection. Pt needs an appointment to review further workup [facility] 36 Called and spoke w/ [...] results because that is all she wants. [facility] 36on 01-24-2024 36 S: Patient [...] or caller hangs up) Protocols used: Difficult [id number] [facility] US PELVIS TRANSVAGINALon US PELVIS TRANSVAGINAL --------- Gynecological Report (Signed Final 01/23/2024 01:01 pm) PATIENT INFO: ID #: [id number] : [birth year] (38 yrs)(F) Name: JOSSE PENNY Visit Date: 01/23/2024 11:19 am DEEDS PERFORMED BY: Attending: Eboni Moise MD Performed By: Bel Lemos RDMS Referred By: YESSI MUNOZ Location: [facility] Toyah Visit Type: [facility] SERVICE(S) PROVIDED: Dog Boarder Transvaginal [id number] INDICATIONS: Excessive bleeding in the premenopausal N92.4 period Unsure on LMP, Bleeding since May 2023 TV [employer] ultrasound TECHNIQUE/SCAN QUALITY: Technique: Transvaginal Approach Scan [...] 02/14/2024. *Ultrasound cannot detect all pelvic or [employer]ACHINE [employer] abnormalities and normal findings cannot guarantee the absence of a problem.* Normal [facility] US Pelvis transvaginalon The right [...] 02/14/2024. *Ultrasound cannot detect all pelvic or [employer]ACHINE [employer] abnormalities and normal findings cannot guarantee the absence of a problem.* [facility] Gynecological Report (Signed Final 01/23/2024 01:01 pm) PATIENT INFO: ID #: [id number] : [birth year] (38 yrs)(F) Name: JOSSE PENNY Visit Date: 01/23/2024 11:19 am DEEDS PERFORMED BY: Attending: Eboni Moise MD Performed By: Bel Lemos RDMS Referred By: YESSI MUNOZ Location: [facility] [employer] Toyah Visit Type: [facility] SERVICE(S) PROVIDED: Dog Boarder Transvaginal 87310 INDICATIONS: Excessive bleeding in the premenopausal N92.4 period Unsure on LMP, Bleeding since May 2023 TV [employer]ACH[employer] ultrasound TECHNIQUE/SCAN QUALITY: Technique: Transvaginal Approach Scan [...] Electronically Signed Final Report 01/23/2024 01:01 pm [facility] Eboni Moise MD - 01/23/2024 Gynecological Report (Signed Final 01/23/2024 01:01 pm) PATIENT INFO: ID #: [id number] : [birth year] (38 yrs)(F) Name: JOSSE PENNY Visit Date: 01/23/2024 11:19 am DEEDS PERFORMED BY: Attending: Eboni Moise MD Performed By: Bel Lemos RDMS Referred By: YESSI MUNOZ Location: [facility] Marie Visit Type: [facility] SERVICE(S) PROVIDED: Dog Boarder Transvaginal 35928 INDICATIONS: Excessive bleeding in the premenopausal N92.4 period Unsure on LMP, Bleeding since May 2023 TV [employer]ACHINE [employer] ultrasound TECHNIQUE/SCAN QUALITY: Technique: Transvaginal Approach Scan [...] 02/14/2024. *Ultrasound cannot detect all pelvic or G[employer]ACHINE [employer]ER abnormalities and normal findings cannot guarantee the absence of a problem.* [facility] [employer] Radiology Study observation (narrative) [facility] US Pelvis transvaginalOrdere d By: Eboni Moise on 01-23-2024 [facility] Work Phone: DHEA Sulfateon 01-12-2024 DHEA SULFATE 216.0 ug/dL Normal 57.3-279.2 [facility] Comment on above: Order Comment: NN Performed By: #### L 3300.1500, L3300.3500, L3100.9000, L100.0500, L3100.5400, L501.9520, L700.8000, L3100.5310, L501.0100 ####[facility] [address] [place], [place], [id number] Insulin Levelon 01-12-2024 INSULIN,FASTING 40.8 uIU/mL High 2.6-24.9 [facility] Comment on above: Order Comment: NN Result Comment: Perf ormed at: - [facility] [id number] Rental Salesperson: Cuate Malhotra PhD, Phone: [phone] Performed at: [facility] [address] [id number] Rental Salesperson: Phil Archibald MD, Phone: [phone] Performed By: #### L 3300.1500, L3300.3500, L3100.9000, L100.0500, L3100.5400, L501.9520, L700.8000, L3100.5310, L501.0100 ####[facility] [address] [place], [address] PROLACTIN 4465on 01-12-2024 PROLACTIN 12.6 ng/mL Normal 4.8-33.4 [facility] Comment on above: Order Comment: NN Performed By: #### L 3300.1500, L3300.3500, L3100.9000, L100.0500, L3100.5400, L501.9520, L700.8000, L3100.5310, L501.0100 ####[facility] [address] [place], [address] Testosterone, Total / Freeon 01-12-2024 TESTOSTER,FREE 1.77 ng/dL Abnormal 0.10-0.85 [facility] Comment on above: Order Comment: NN Performed By: #### L 3300.1500, L3300.3500, L3100.9000, L100.0500, L3100.5400, L501.9520, L700.8000, L3100.5310, L501.0100 ####[facility] [address] [place], [address] TESTOSTER,TOTAL 77 ng/dL High 8-60 [facility] Comment on above: Order Comment: NN Performed By: #### L 3300.1500, L3300.3500, L3100.9000, L100.0500, L3100.5400, L501.9520, L700.8000, L3100.5310, L501.0100 ####[facility] [address] [place], [address] TESTOSTERONE,%F 2.30 Normal 0.50-2.80 [facility] Comment on above: Order Comment: NN Performed By: #### L 3300.1500, L3300.3500, L3100.9000, L100.0500, L3100.5400, L501.9520, L700.8000, L3100.5310, L501.0100 ####[facility] [address] [place], [place], [id number] 17-Hydroxyprogesteroneon 17ALPHA OH-PROG 59 ng/dL Normal . [facility] Comment on above: Order Comment: Test( s) 726700-37-ZE Progesterone LCMSwas developed and its performance characteristicsdetermined by Pets are family too. It has not been cleared or approvedby the Food and Drug Administration.N Result Comment: Adul t Female Follicular 15 - 70 Luteal 35 - 290 Performed at: [address] [id number] Rental Salesperson: Phil Archibald MD, Phone: [phone] Performed By: #### L 3300.1500, L3300.3500, L3100.9000, L100.0500, L3100.5400, L501.9520, L700.8000, L3100.5310, L501.0100 ####[facility] [address] [place], [place], [phone] CBC-Complete Blood Cnt No Di ffon 01-05-2024 Erythrocyte distribution width (RBC) [Ratio] 12.1 % Normal 11.6-14.6 [facility] Comment on above: Performed By: #### L 3300.1500, L3300.3500, L3100.9000, L100.0500, L3100.5400, L501.9520, L700.8000, L3100.5310, L501.0100 ####[facility] [address] [place], [place], [phone] Hematocrit (Bld) [Volume fraction] 40.8 % Normal 37-47 [facility] Comment on above: Performed By: #### L 3300.1500, L3300.3500, L3100.9000, L100.0500, L3100.5400, L501.9520, L700.8000, L3100.5310, L501.0100 ####[facility] [address] [place], [address] Hemoglobin (Bld) [Mass/Vol] 13.9 g/dL Normal 12.0-15.0 [facility] Comment on above: Performed By: #### L 3300.1500, L3300.3500, L3100.9000, L100.0500, L3100.5400, L501.9520, L700.8000, L3100.5310, L501.0100 ####[facility] [address] [place], [address] MCH (RBC) [Entitic mass] 29.7 pg Normal 27.0-32.0 [facility] Comment on above: Performed By: #### L 3300.1500, L3300.3500, L3100.9000, L100.0500, L3100.5400, L501.9520, L700.8000, L3100.5310, L501.0100 ####[facility] [address] [place], [address] MCHC (RBC) [Mass/Vol] 34.1 g/dL Normal 32-36 [facility] Comment on above: Performed By: #### L 3300.1500, L3300.3500, L3100.9000, L100.0500, L3100.5400, L501.9520, L700.8000, L3100.5310, L501.0100 ####[facility] [address] [place], [address] MCV (RBC) [Entitic vol] 87.2 fL Normal 81-99 [facility] Comment on above: Performed By: #### L 3300.1500, L3300.3500, L3100.9000, L100.0500, L3100.5400, L501.9520, L700.8000, L3100.5310, L501.0100 ####[facility] [address] [place], [address] Platelet mean volume (Bld) [Entitic vol] 9.8 fL Normal 6.2-12.0 [facility] Comment on above: Performed By: #### L 3300.1500, L3300.3500, L3100.9000, L100.0500, L3100.5400, L501.9520, L700.8000, L3100.5310, L501.0100 ####[facility] [address] [place], [address](556) Platelets (Bld) [#/Vol] 331 10*3/uL Normal 150-450 [facility] Comment on above: Performed By: #### L 3300.1500, L3300.3500, L3100.9000, L100.0500, L3100.5400, L501.9520, L700.8000, L3100.5310, L501.0100 ####[facility] [address] [place], [place], [phone]) RBC (Bld) [#/Vol] 4.68 10*6/uL Normal 4.2-5.4 [facility] Comment on above: Performed By: #### L 3300.1500, L3300.3500, L3100.9000, L100.0500, L3100.5400, L501.9520, L700.8000, L3100.5310, L501.0100 ####[facility] [address] [place], [place], [phone](812) RDW SD 38.4 fl Normal 35.1-43.9 [facility] Comment on above: Performed By: #### L 3300.1500, L3300.3500, L3100.9000, L100.0500, L3100.5400, L501.9520, L700.8000, L3100.5310, L501.0100 ####[facility] [address] [place], [address](303) WBC (Bld) [#/Vol] 5.4 10*3/uL Normal 4.4-11.0 [facility] Comment on above: Performed By: #### L 3300.1500, L3300.3500, L3100.9000, L100.0500, L3100.5400, L501.9520, L700.8000, L3100.5310, L501.0100 ####[facility] [address] [place], [place], [address] Glucoseon 01-05-2024 Glucose [Mass/Vol] 130 mg/dL High 74-106 [facility] Comment on above: Result Comment: Fast ing Glucose result greater than or equal to 126 mg/dL suggests DIABETES MELLITUS per A.D.A. criteria. Performed By: #### L 3300.1500, L3300.3500, L3100.9000, L100.0500, L3100.5400, L501.9520, L700.8000, L3100.5310, L501.0100 ####[facility] [address] [place], [place], [phone] Thyroid Stim Hormone (TSH)on 01-05-2024 TSH 2.060 uIU/mL Normal 0.358-3.74 0 [facility] Comment on above: Performed By: #### L 3300.1500, L3300.3500, L3100.9000, L100.0500, L3100.5400, L501.9520, L700.8000, L3100.5310, L501.0100 ####[facility] [address] [place], [place], [address] hCG Titer Quant., Serumon HCG QUANT. < 1 Normal 1-3 [facility] Comment on above: Result Comment: hCG levels with Gestational Age Gestational Age hCG mIU/mL (IU/L) 0.2 - 1 week 5 - 50 1-2 weeks 50 - 500 2-3 weeks 100 - 5000 3-4 weeks 500 - 96604 4-5 weeks 1000 - 53710 5-6 weeks 37424 - 100,000 6-8 weeks 99335 - 200,000 2-3 months 34507 - 100,000 Performed By: #### L 3300.1500, L3300.3500, L3100.9000, L100.0500, L3100.5400, L501.9520, L700.8000, L3100.5310, L501.0100 ####[facility] [address] [place], [place], [id number] Hemoglobin A1con 12-14-2023 HbA1c (Bld) [Mass fraction] 5.5 % Normal 3.8-5.6 [facility] Comment on above: Result Comment: Norm al < 5.7 % Prediabetic 5.7 - 6.4 % Diabetic >or= 6.5 % Please note range changes. Performed By: #### L 501.9916 ####[facility] [address] [place], [place], [phone] STREP A MOLECULAR (POC)on Procedural Control Valid [facility] Strep A (POCT) Negative Negative [facility] Absolute lymphocyte countOrd ered By: Nita Duffy on 02-06-2023 Lymphocytes Auto (Unsp spec) [#/Vol] 1.32 10*3/uL 0.83-4.51 [facility] Basophil percentageOrdered B y: Nita Duffy on 02-06-2023 Basophil percentage 0 SEEN /hpf 0-5 [facility] Basophils/100 WBC (Bld) 0.4 % 0-1 [facility] Chloride [Moles/Vol] 108 mmol/L 98-107 [facility] Eosinophils/100 WBC (Bld) 0.1 % 0-5 [facility] Glucose [Mass/Vol] 113 mg/dL 74-106 [facility] Comment on above: Fasting Glucose resu lt from 100 to 125 mg/dL suggests IMPAIRED HOMEOSTASIS per A.D.A. criteria. Neutrophils (Bld) [#/Vol] 7.0 10*3/uL 2.0-7.7 [facility] Neutrophils/100 WBC (Bld) 78.5 % 47-70 [facility] Potassium [Moles/Vol] 4.7 mmol/L 3.5-5.1 [facility] Comment on above: Moderate Hemolysis, Result may be falsely increased. Sodium [Moles/Vol] 138 mmol/L 136-145 [facility] WBC (Bld) [#/Vol] 9.0 10*3/uL 4.4-11.0 [facility] Bilirubin Test strip Ql (U)O rdered By: Nita Duffy on 02-06-2023 Bilirubin Ql (U) Negative Negative [facility] Blood erythrocytes count (nu mber/volume)Ordered By: Nita Duffy on 02-06-2023 RBC (Bld) [#/Vol] 4.55 10*6/uL 4.2-5.4 [facility] Blood hemoglobin measurement (mass/volume)Ordered By: Nita Duffy on 02-06-2023 Hemoglobin (Bld) [Mass/Vol] 14.2 g/dL 12.0-15.0 [facility] Blood lymphocytes/100 leukoc ytesOrdered By: Nita Duffy on 02-06-2023 Lymphocytes/100 WBC (Bld) 14.7 % 19-41 [facility] Blood monocytes/100 leukocyt esOrdered By: Nita Duffy on 02-06-2023 Monocytes/100 WBC (Bld) 6.1 % 0-10 [facility] Blood platelet mean volumeOr dered By: Nita Duffy on 02-06-2023 Platelet mean volume (Bld) [Entitic vol] 9.4 fL 6.2-12.0 [facility] Determination of erythrocyte mean corpuscular volume (MCV)Ordered By: Nita Duffy on 02-06-2023 MCV (RBC) [Entitic vol] 89.7 fL 81-99 [facility] Hematocrit Auto (Bld) [Volum e fraction]Ordered By: Nita Duffy on 02-06-2023 Hematocrit (Bld) [Volume fraction] 40.8 % 37-47 [facility] Ketones Test strip Ql (U)Ord ered By: Nita Duffy on 02-06-2023 Ketones Ql (U) Negative Negative [facility] Laboratory - Chemistry and C hemistry - challengeOrdered By: Nita Duffy on 02-06-2023 CO2 [Moles/Vol] 28.0 mmol/L 21.0-32.0 [facility] Urea nitrogen/Creatinine [Mass ratio] 14.9 mg/mg 10-20 [facility] Laboratory - Hematology and Cell countsOrdered By: Nita Duffy on 02-06-2023 Erythrocyte distribution width (RBC) [Entitic vol] 38.8 fL 35.1-43.9 [facility] Erythrocyte distribution width (RBC) [Ratio] 11.9 % 11.6-14.6 [facility] Immature granulocytes/100 WBC (Bld) 0.200 % 0.0-0.9 [facility] Comment on above: IG% - Immature Granu locytes (promyelocytes, myelocytes and metamyelocytes) > 1% indicates that a LEFT SHIFT is Present. MCH (RBC) [Entitic mass] 31.2 pg 27.0-32.0 [facility] Nucleated RBC/100 WBC (Bld) [Ratio] 0 % 0-5 [facility] MCHC Auto (RBC) [Mass/Vol]Or dered By: Nita Duffy on 02-06-2023 MCHC (RBC) [Mass/Vol] 34.8 g/dL 32-36 [facility] Mucus LM Ql (Urine sed)Order ed By: Nita Duffy on 02-06-2023 Mucus Ql (Urine sed) 0 SEEN /hpf [facility] Nitrite Test strip Ql (U)Ord ered By: Nita Duffy on 02-06-2023 Nitrite Ql (U) Negative Negative [facility] No Panel InformationOrdered By: Nita Duffy on 02-06-2023 Estimated Creatinine Clearance Calc 74.12 ml/min [facility] Estimated GFR (MDRD) Amer 92 mL/min >60 [facility] Comment on above: GFR Calc Estimated GFR (MDRD) Non-Af Amer 76 mL/min >60 [facility] Comment on above: Non- GFR Calc Platelets bldOrdered By: Raquel Duffy on 02-06-2023 Platelets (Bld) [#/Vol] 318 10*3/uL 150-450 [facility] Protein Test strip Ql (U)Ord ered By: Nita Duffy on 02-06-2023 Protein Ql (U) Negative Negative [facility] Serum or plasma calcium da urement (mass/volume)Ordered By: Nita Duffy on 02-06-2023 Calcium [Mass/Vol] 9.7 mg/dL 8.5-10.1 [facility] Serum or plasma creatinine m easurement (mass/volume)Ordered By: Nita Duffy on 02-06-2023 Creatinine [Mass/Vol] 0.88 mg/dL 0.55-1.02 [facility] Comment on above: The validity of the calculated GFR & GFRAA in patients over 70 years has not been determined. Clinical correlation is essential. Serum or plasma urea nitroge n measurement (mass/volume)Ordered By: Nita Duffy on 02-06-2023 Urea nitrogen [Mass/Vol] 13 mg/dL 7-18 [facility] Squamous epithelial cells de tection in urine sediment by light microscopyOrdered By: Nita Duffy on 02-06-2023 Epithelial cells.squamous LM Ql (Urine sed) 0 SEEN /hpf 5-10 [facility] Thin prep Papanicolaou smear with manual screeningOrdered By: Nita Duffy on 02-06-2023 Thin prep Papanicolaou smear with manual screening 2 5-15 [facility] Urine blood detectionOrdered By: Nita Duffy on 02-06-2023 RBC Ql (U) Negative Negative [facility] RBC Ql (U) 0 SEEN /hpf 0-5 [facility] Urine clarityOrdered By: Raquel Duffy on 02-06-2023 Clarity (U) Clear Clear [facility] Urine color determinationOrd ered By: Nita Duffy on 02-06-2023 Color (U) Yellow Yellow [facility] Urine glucose detectionOrder ed By: Nita Duffy on 02-06-2023 Glucose Ql (U) Normal mg/dl Normal [facility] Urine leukocyte esterase det ection by dipstickOrdered By: Nita Duffy on 02-06-2023 Leukocyte esterase Test strip Ql (U) Negative Negative [facility] Urine pHOrdered By: Nita Duffy on 02-06-2023 pH (U) 6.0 [pH] 5.0 - 8.0 [facility] Urine sediment bacteria coun t by microscopy (number/high power field)Ordered By: Nita Dufyf on 02-06-2023 Bacteria LM.HPF (Urine sed) [#/Area] 0 /[HPF] None Seen [facility] Urine specific gravity measu rementOrdered By: Nita Duffy on 02-06-2023 Specific gravity (U) [Rel density] 1.025 1.002-1.03 0 [facility] Urobilinogen Auto test strip Ql (U)Ordered By: Nita Duffy on 02-06-2023 Urobilinogen Ql (U) Normal mg/dl Normal [facility] CNOVon 03-02-2022 CNOV Office Visit (DUM DEANDRA) -- JOSSE WAYNE ([id number]) 1985 F Date Time Provider Department 03/02/22 2:40 PM GABE PIERRE During your visit today, we recorded the following information about you: Temperature Pulse Respiration Blood pressure 98.2 degrees 82/minute 24/minute 110/78 Weight Height 139.7 kg 1.626 m Gabe Pierre APRN.WIRE TRANSFER CLERK 03/02/2022 3:39 PM Signed This note was created using NoteWriter. Subjective Josse Gayle Robert is a 36 year old female here today to establish care. PMH PTSD, PCOS, obesity, hirsutism, epilepsy. Former PCP Dr Vazquez in [place]. Anxiety, Depression, PTSD: chronic, stable. She is seeing psychiatrist at [facility]. She is taking Celexa 30 mg daily, [...] She is seeing Dr Anderson Pedroza in [place]. Reports last seizure 2012. Reports her keppra [...] and COVID vaccines. She follows up with [facility] regularly. ALLERGIES Allergen Reactions Phenobarbital Rash Current [...] Face dr (more content not included)... Normal [facility] CNCOon 02-28-2022 CNCO Letter Text [facility] CNPSparkle 02-28-2022 CNPN Telephone ([facility]) -- JOSSE WAYNE ([id number]) 1985 F Date Time Provider Department 02/28/22 GABE PIERRE sailsquareGary During your visit today, we recorded the following information about you: Blessing Amezcua MA 02/28/2022 2:39 PM Signed ----- Message from Tisha Martinez sent at 02/24/2022 1:28 PM EST ----- Regarding: FW: new pt ----- Message ----- From: Jessica Monson Sent: 02/24/2022 1:11 PM EST To: [facility] Triage Pool Subject: new pt [...] to office for appt on 03/02/22 fax [phone] jojo Was Patient Referred to 911/Seek Emergency Treatment (Y/N): n Did Patient Agree (Y/N): n Was An Attempt Made To Transfer The Patient To The Office (Y/N): n Were You Able To Reach Someone At The Office (Y/N): n If Yes - Patient Was Transferred To (Caregivers Name): n If No - Which [facility] Leadership Shop Fitter Did You Speak With Regarding This Patient: n Was an appointment scheduled (Y/N): n Reason patient was requesting visit (RFV/signs and symptoms/diagnosis) : na Person calling if other than patient: na Return call to if other than patient: na Best contact number: [phone] Thank you, Jessicaviviane Monson February 24, 2022 1:09 PM Blessing [...] Encounter Status:Closed by BLESSING AMEZCUA on 02/28/22 [facility] Sara 02-24-2022 ALEJANDRON Telephone (AGINTMLW) -- JOSSE WAYNE ([id number]) 1985 F Date Time Provider Department 02/24/22 [...] to office for appt on 03/02/22 fax [phone] jojo Was Patient Referred to [facility]/Seek Emergency Treatment (Y/N): n Did Patient Agree (Y/N): n Was An Attempt Made To Transfer The Patient To The Office (Y/N): n Were You Able To Reach Someone At The Office (Y/N): n If Yes - Patient Was Transferred To (Caregivers Name): n If No - Which [facility] Leadership Shop Fitter Did You Speak With Regarding This Patient: n Was an appointment scheduled (Y/N): n Reason patient was requesting visit (RFV/signs and symptoms/diagnosis) : na Person calling if other than patient: na Return call to if other than patient: na Best contact number: [phone] Thank you, Jessica Monson February 24, 2022 1:09 PM Blessing Amezcua MA 02/28/2022 4:54 PM Signed Letter faxed Blessing Amezcua MA Allergies As of Date: 02/24/2022 Noted Allergy Reaction PHENOBARBITAL 09/12/2006 2 - Rash Date Reviewed: 01/21/2022 Reviewed by: Makeda Blakely Ma - Fully Assessed Reason for Visit: Patient Question [8647] Prescriptions as of 02/28/2022 - citalopram (CELEXA) [...] Status:Closed by BLESSING AMEZCUA on 02/28/[address] [facility] Absolute lymphocyte counton 01-09-2022 Lymphocytes Auto (Unsp spec) [#/Vol] 1.48 10*3/uL 0.83-4.51 [facility] Work Phone: Basophil percentageon 2021 Basophils/100 WBC (Bld) 0.6 % 0-1 [facility] Work Phone: Bilirubin [Mass/Vol] 0.40 mg/dL 0.20-1.00 [facility] Work Phone: Comment on above: For patients on eltr ombopag therapy, use of Dimension [place] TBIL is not recommended. Chloride [Moles/Vol] 104 mmol/L 98-107 [facility] Work Phone: Eosinophils/100 WBC (Bld) 0.4 % 0-5 [facility] Work Phone: Glucose [Mass/Vol] 153 mg/dL 74-106 [facility] Work Phone: Comment on above: Fasting Glucose resu lt greater than or equal to 126 mg/dL suggests DIABETES MELLITUS per A.D.A. criteria. Neutrophils (Bld) [#/Vol] 5.7 10*3/uL 2.0-7.7 [facility] Work Phone: Neutrophils/100 WBC (Bld) 72.8 % 47-70 [facility] Work Phone: Potassium [Moles/Vol] 3.3 mmol/L 3.5-5.1 [facility] Work Phone: Protein [Mass/Vol] 7.9 g/dL 6.4-8.2 [facility] Work Phone: Sodium [Moles/Vol] 138 mmol/L 136-145 [facility] Work Phone: WBC (Bld) [#/Vol] 7.8 10*3/uL 4.4-11.0 [facility] Work Phone: Blood erythrocytes count (nu mber/volume)on 01-09-2022 RBC (Bld) [#/Vol] 4.80 10*6/uL 4.2-5.4 [facility] Work Phone: Blood hemoglobin measurement (mass/volume)on 01-09-2022 Hemoglobin (Bld) [Mass/Vol] 14.6 g/dL 12.0-15.0 [facility] Work Phone: Blood lymphocytes/100 leukoc yteson 01-09-2022 Lymphocytes/100 WBC (Bld) 19.0 % 19-41 [facility] Work Phone: [phone] Blood monocytes/100 leukocyt eson 01-09-2022 Monocytes/100 WBC (Bld) 6.8 % 0-10 [facility] Work Phone: [phone] Blood platelet mean volumeon 01-09-2022 Platelet mean volume (Bld) [Entitic vol] 10.0 fL 6.2-12.0 [facility] Work Phone: Determination of erythrocyte mean corpuscular volume (MCV)on 01-09-2022 MCV (RBC) [Entitic vol] 86.7 fL 81-99 [facility] Work Phone: Hematocrit Auto (Bld) [Volum e fraction]on 01-09-2022 Hematocrit (Bld) [Volume fraction] 41.6 % 37-47 [facility] Work Phone: Laboratory - Chemistry and C hemistry - challengeon 01-09-2022 ALP [Catalytic activity/Vol] 71 U/L 45-117 [facility] Work Phone: ALT [Catalytic activity/Vol] 58 U/L 13-56 [facility] Work Phone: [phone] CO2 [Moles/Vol] 22.0 mmol/L 21.0-32.0 [facility] Work Phone: Globulin (S) [Mass/Vol] 4.1 g/dL 2.2-4.2 [facility] Work Phone: Urea nitrogen/Creatinine [Mass ratio] 10.9 mg/mg 10-20 [facility] Work Phone: Laboratory - Hematology and Cell countson 01-09-2022 Erythrocyte distribution width (RBC) [Entitic vol] 38.3 fL 35.1-43.9 [facility] Work Phone: [phone] Erythrocyte distribution width (RBC) [Ratio] 11.9 % 11.6-14.6 [facility] Work Phone: [phone] Immature granulocytes/100 WBC (Bld) 0.400 % 0.0-0.9 [facility] Work Phone: [phone] Comment on above: IG% - Immature Granu locytes (promyelocytes, myelocytes and metamyelocytes) > 1% indicates that a LEFT SHIFT is Present. MCH (RBC) [Entitic mass] 30.4 pg 27.0-32.0 [facility] Work Phone: [phone] Nucleated RBC/100 WBC (Bld) [Ratio] 0 % 0-5 [facility] Work Phone: [phone] MCHC Auto (RBC) [Mass/Vol]on 01-09-2022 MCHC (RBC) [Mass/Vol] 35.1 g/dL 32-36 [facility] Work Phone: [phone] Panel Informationon 01-09 Estimated Creatinine Clearance Calc 59.88 ml/min [facility] Work Phone: [phone] Estimated GFR (MDRD) Amer 71 mL/min >60 [facility] Work Phone: [phone] Comment on above: GFR Calc Estimated GFR (MDRD) Non-Af Amer 59 mL/min >60 [facility] Work Phone: [phone] Comment on above: Non- GFR Calc Platelets bldon 01-09-2022 Platelets (Bld) [#/Vol] 319 10*3/uL 150-450 [facility] Work Phone: [phone] Serum or plasma albumin da urement (mass/volume)on 01-09-2022 Albumin [Mass/Vol] 3.8 g/dL 3.2-5.0 [facility] Work Phone: [phone] Serum or plasma albumin/glob ulin mass ratioon 01-09-2022 Albumin/Globulin [Mass ratio] 0.9 {ratio} 0.9-2.4 [facility] Work Phone: Serum or plasma calcium da urement (mass/volume)on 01-09-2022 Calcium [Mass/Vol] 9.6 mg/dL 8.5-10.1 [facility] Work Phone: Serum or plasma creatinine m easurement (mass/volume)on 01-09-2022 Creatinine [Mass/Vol] 1.10 mg/dL 0.55-1.02 [facility] Work Phone: Comment on above: The validity of the calculated GFR & GFRAA in patients over 70 years has not been determined. Clinical correlation is essential. Serum or plasma urea nitroge n measurement (mass/volume)on 01-09-2022 Urea nitrogen [Mass/Vol] 12 mg/dL 7-18 [facility] Work Phone: Thin prep Papanicolaou smear with manual screeningon 01-09-2022 Thin prep Papanicolaou smear with manual screening 23 U/L 15-37 [facility] Work Phone: Thin prep Papanicolaou smear with manual screening 12 5-15 [facility] Work Phone: Basophil percentageon 2021 Basophil percentage 0 SEEN /hpf 0-5 [facility] Work Phone: Bilirubin Test strip Ql (U)o n 11-03-2021 Bilirubin Ql (U) Negative Negative [facility] Work Phone: Ketones Test strip Ql (U)on 11-03-2021 Ketones Ql (U) 15 mg/dl Negative [facility] Work Phone: Mucus LM Ql (Urine sed)on Mucus Ql (Urine sed) 0 SEEN /hpf [facility] Work Phone: Nitrite Test strip Ql (U)on 11-03-2021 Nitrite Ql (U) Negative Negative [facility] Work Phone: Protein Test strip Ql (U)on 11-03-2021 Protein Ql (U) Negative Negative [facility] Work Phone: Squamous epithelial cells de tection in urine sediment by light microscopyon 11-03-2021 Epithelial cells.squamous LM Ql (Urine sed) 0-5 SEEN /hpf 5-10 [facility] Work Phone: Urine blood detectionon - RBC Ql (U) Negative Negative [facility] Work Phone: RBC Ql (U) 0 SEEN /hpf 0-5 [facility] Work Phone: Urine clarityon 11-03-2021 Clarity (U) Clear Clear [facility] Work Phone: Urine color determinationon 11-03-2021 Color (U) Straw Yellow [facility] Work Phone: Urine glucose detectionon Glucose Ql (U) Normal mg/dl Normal [facility] Work Phone: Urine leukocyte esterase det ection by dipstickon 11-03-2021 Leukocyte esterase Test strip Ql (U) Negative Negative [facility] Work Phone: Urine pHon 11-03-2021 pH (U) 6.0 [pH] 5.0 - 8.0 [facility] Work Phone: Urine sediment bacteria coun t by microscopy (number/high power field)on 11-03-2021 Bacteria LM.HPF (Urine sed) [#/Area] 0 /[HPF] None Seen [facility] Work Phone: Urine specific gravity measu rementon 11-03-2021 Specific gravity (U) [Rel density] 1.010 1.002-1.03 0 [facility] Work Phone: Urobilinogen Auto test strip Ql (U)on 11-03-2021 Urobilinogen Ql (U) Normal mg/dl Normal [facility] Work Phone: Absolute lymphocyte counton 10-18-2021 Lymphocytes Auto (Unsp spec) [#/Vol] 1.70 10*3/uL 0.83-4.51 [facility] Work Phone: Acetaminophen level (mass/vo lume)on 10-18-2021 Acetaminophen (Unsp spec) [Mass/Vol] < 2.0 ug/mL 10.0-30.0 [facility] Work Phone: Basophil percentageon 2021 Basophils/100 WBC (Bld) 0.5 % 0-1 [facility] Work Phone: Chloride [Moles/Vol] 109 mmol/L 98-107 [facility] Work Phone: Eosinophils/100 WBC (Bld) 1.4 % 0-5 [facility] Work Phone: Glucose [Mass/Vol] 118 mg/dL 74-106 [facility] Work Phone: Comment on above: Fasting Glucose resu lt from 100 to 125 mg/dL suggests IMPAIRED HOMEOSTASIS per A.D.A. criteria. Neutrophils (Bld) [#/Vol] 3.6 10*3/uL 2.0-7.7 [facility] Work Phone: Neutrophils/100 WBC (Bld) 61.9 % 47-70 [facility] Work Phone: Potassium [Moles/Vol] 3.5 mmol/L 3.5-5.1 [facility] Work Phone: Sodium [Moles/Vol] 139 mmol/L 136-145 [facility] Work Phone: WBC (Bld) [#/Vol] 5.8 10*3/uL 4.4-11.0 [facility] Work Phone: Beta hCG serum qualon 2021 Beta HCG ( test) Ql Negative [facility] Work Phone: Blood erythrocytes count (nu mber/volume)on 10-18-2021 RBC (Bld) [#/Vol] 4.76 10*6/uL 4.2-5.4 [facility] Work Phone: Blood hemoglobin measurement (mass/volume)on 10-18-2021 Hemoglobin (Bld) [Mass/Vol] 14.4 g/dL 12.0-15.0 [facility] Work Phone: [phone] Blood lymphocytes/100 leukoc yteson 10-18-2021 Lymphocytes/100 WBC (Bld) 29.6 % 19-41 [facility] Work Phone: [phone] Blood monocytes/100 leukocyt eson 10-18-2021 Monocytes/100 WBC (Bld) 6.3 % 0-10 [facility] Work Phone: [phone] Blood platelet mean volumeon 10-18-2021 Platelet mean volume (Bld) [Entitic vol] 9.4 fL 6.2-12.0 [facility] Work Phone: [phone] Determination of erythrocyte mean corpuscular volume (MCV)on 10-18-2021 MCV (RBC) [Entitic vol] 87.2 fL 81-99 [facility] Work Phone: [phone] Hematocrit Auto (Bld) [Volum e fraction]on 10-18-2021 Hematocrit (Bld) [Volume fraction] 41.5 % 37-47 [facility] Work Phone: [phone] Laboratory - Chemistry and C hemistry - challengeon 10-18-2021 CO2 [Moles/Vol] 24.0 mmol/L 21.0-32.0 [facility] Work Phone: [phone] Urea nitrogen/Creatinine [Mass ratio] 14.5 mg/mg 10-20 [facility] Work Phone: [phone] Laboratory - Drug toxicology on 10-18-2021 Amphetamines Ql (U) Negative <1000 ng/mL [facility] Work Phone: [phone] Benzodiazepines Ql (U) Positive < 200 ng/mL [facility] Work Phone: [phone] Cannabinoids Screen Ql (U) Negative < 50 ng/mL [facility] Work Phone: [phone] Cocaine Ql (U) Negative < 300 ng/mL [facility] Work Phone: [phone] Opiates Ql (U) Negative < 300 ng/mL [facility] Work Phone: [phone] Laboratory - Hematology and Cell countson 10-18-2021 Erythrocyte distribution width (RBC) [Entitic vol] 38.6 fL 35.1-43.9 [facility] Work Phone: [phone] Erythrocyte distribution width (RBC) [Ratio] 12.0 % 11.6-14.6 [facility] Work Phone: [phone] Immature granulocytes/100 WBC (Bld) 0.300 % 0.0-0.9 [facility] Work Phone: [phone] Comment on above: IG% - Immature Granu locytes (promyelocytes, myelocytes and metamyelocytes) > 1% indicates that a LEFT SHIFT is Present. MCH (RBC) [Entitic mass] 30.3 pg 27.0-32.0 [facility] Work Phone: [phone] Nucleated RBC/100 WBC (Bld) [Ratio] 0 % 0-5 [facility] Work Phone: [phone] MCHC Auto (RBC) [Mass/Vol]on 10-18-2021 MCHC (RBC) [Mass/Vol] 34.7 g/dL 32-36 [facility] Work Phone: [phone] Panel Informationon 10-18 MDMA (Ecstasy) Screen Negative < 500 ng/mL [facility] Work Phone: [phone] Urine Barbiturates Screen Negative < 200 ng/mL [facility] Work Phone: [phone] Urine Drug Screen Comment [facility] Work Phone: [phone] Comment on above: CONFIRMATORY TESTING FOR ALL [...] Urine Methadone Screen Negative < 300 ng/mL [facility] Work Phone: [phone] Estimated Creatinine Clearance Calc 79.36 ml/min [facility] Work Phone: [phone] Estimated GFR (MDRD) Amer 99 mL/min >60 [facility] Work Phone: Comment on above: GFR Calc Estimated GFR (MDRD) Non-Af Amer 82 mL/min >60 [facility] Work Phone: [phone] Comment on above: Non- GFR Calc Ethyl Alcohol Level 6.0 mg/dL [facility] Work Phone: Comment on above: The serum:whole bloo d ethanol ratio is approximately 1.14and varies slightly with hematocrit. Medical Alcohol reference interval and critical value innon-tolerant individuals; 50 - 100 Impairment 100 Intoxication 100 - 250 Severe Poisoning 250 - 400 Deep/possible fatal coma Platelets bldon 10-18-2021 Platelets (Bld) [#/Vol] 310 10*3/uL 150-450 [facility] Work Phone: Serum or plasma calcium da urement (mass/volume)on 10-18-2021 Calcium [Mass/Vol] 9.1 mg/dL 8.5-10.1 [facility] Work Phone: Serum or plasma creatinine m easurement (mass/volume)on 10-18-2021 Creatinine [Mass/Vol] 0.83 mg/dL 0.55-1.02 [facility] Work Phone: Comment on above: The validity of the calculated GFR & GFRAA in patients over 70 years has not been determined. Clinical correlation is essential. Serum or plasma salicylates measurement (mass/volume)on 10-18-2021 Salicylates [Mass/Vol] mg/dL 2.8-20.0 [facility] Work Phone: Serum or plasma urea nitroge n measurement (mass/volume)on 10-18-2021 Urea nitrogen [Mass/Vol] 12 mg/dL 7-18 [facility] Work Phone: [phone] Thin prep Papanicolaou smear with manual screeningon 10-18-2021 Thin prep Papanicolaou smear with manual screening 6 5-15 [facility] Work Phone: Urine phencyclidine (PCP) de tectionon 10-18-2021 Phencyclidine Ql (U) Negative < 25 ng/mL [facility] Work Phone: Basophil percentageon 2021 Basophil percentage 0-5 SEEN /hpf 0-5 [facility] Work Phone: Bilirubin Test strip Ql (U)o n 08-02-2021 Bilirubin Ql (U) Negative Negative [facility] Work Phone: Ketones Test strip Ql (U)on 08-02-2021 Ketones Ql (U) Negative Negative [facility] Work Phone: Mucus LM Ql (Urine sed)on Mucus Ql (Urine sed) 0 SEEN /hpf [facility] Work Phone: Nitrite Test strip Ql (U)on 08-02-2021 Nitrite Ql (U) Negative Negative [facility] Work Phone: Protein Test strip Ql (U)on 08-02-2021 Protein Ql (U) Negative Negative [facility] Work Phone: Squamous epithelial cells de tection in urine sediment by light microscopyon 08-02-2021 Epithelial cells.squamous LM Ql (Urine sed) 5-10 SEEN /hpf 5-10 [facility] Work Phone: Urine blood detectionon 07-12 RBC Ql (U) Negative Negative [facility] Work Phone: RBC Ql (U) 0-5 SEEN /hpf 0-5 [facility] Work Phone: Urine clarityon 08-02-2021 Clarity (U) Clear Clear [facility] Work Phone: Urine color determinationon 08-02-2021 Color (U) Yellow Yellow [facility] Work Phone: Urine glucose detectionon Glucose Ql (U) Normal mg/dl Normal [facility] Work Phone: Urine leukocyte esterase det ection by dipstickon 08-02-2021 Leukocyte esterase Test strip Ql (U) Negative Negative [facility] Work Phone: Urine pHon 08-02-2021 pH (U) 6.0 [pH] 5.0 - 8.0 [facility] Work Phone: Urine sediment bacteria coun t by microscopy (number/high power field)on 08-02-2021 Bacteria LM.HPF (Urine sed) [#/Area] 2 /[HPF] None Seen [facility] Work Phone: Urine specific gravity measu rementon 08-02-2021 Specific gravity (U) [Rel density] 1.015 1.002-1.03 0 [facility] Work Phone: Urobilinogen Auto test strip Ql (U)on 08-02-2021 Urobilinogen Ql (U) Normal mg/dl Normal [facility] Work Phone: Follicle Stim Hormoneon 12-11 Follicle Stim Hormone 2.7 m[IU]/mL Normal [facility] Comment on above: Result Comment: Females: Follicular Phase ...... 2.3-12.6 Mid-cycle Peak ........ 5.2-17.5 Luteal Phase .......... 1.7-12.9 Post-menopausal ....... 12.7-132.2 Males: 0.7-10.8 Performed By: #### F SH3 #### [facility] [address] [place] [address] Follicle Stimulating Hormone Ordered By: Yessi Munoz on 12-23-2020 FSH 2.7 m[IU]/mL [employer] [facility] Work Phone: Comment on above: Females: Follicular Phase ...... 2.3-12.6 Mid-cycle Peak ........ 5.2-17.5 Luteal Phase .......... 1.7-12.9 Post-menopausal ....... 12.7-132.2 Males: 0.7-10.8 Test Performed by [facility], [address], [place] [address] [facility] Work Phone: [facility] Work Phone: Insulinon 11-02-2020 Insulin 21 uIU/mL Normal [facility] Comment on above: Result Comment: INTE [...] fasting insulin is 3-25 uIU/mL. Performed By: [facility] [address] [place] [id number] Professor Of German: Jovanna Núñez MD Performed By: #### Gayle MCRAE, INSO, 17HPO, TSTFO #### The performing lab is in the report. #### PRLA3 #### [facility] [address] [place] [address] #### GLUC3, TSH5 #### [facility] [address] [place] [address] Testo,Free/Total-Femaleon SHBG 33 nmol/L Normal 30-135 [facility] Comment on above: Result Comment: REFE RENCE INTERVAL: Sex Hormone Binding Globulin Access complete set of age- and/or gender-specific reference intervals for this test in the [email or web address] Laboratory Test Directory ([employer]fusion). Performed By: #### D HEAO, INSO, 17HPO, TSTFO #### The performing lab is in the report. #### PRLA3 #### [facility] [address] [place] [address] #### GLUC3, TSH5 #### [facility] [address] [place] [address] Testosterone [Mass/Vol] 64 ng/dL High 9-55 [facility] Comment on above: Result Comment: Tota l Testosterone, Females 18 years and older Premenopausal 9-55 ng/dL Postmenopausal 5-32 ng/dL REFERENCE INTERVAL: Testosterone, LC-MS/MS Access complete set of age- and/or gender-specific reference intervals for this test in the [email or web address] Laboratory Test Directory ([employer]fusion). This test was developed and its performance characteristics determined by [facility] [facility]. It has not been cleared or approved by the [place] Food and Drug Administration. This test was performed in a CLIA certified laboratory and is intended for clinical purposes. Performed By: #### D HEAO, INSO, 17HPO, TSTFO #### The performing lab is in the report. #### PRLA3 #### [employer] [address] [place] [address] #### GLUC3, TSH5 #### [employer] [facility] [address] [place] [address] Testosterone, Free 10.7 pg/mL High 1.3-9.2 [facility] [employer] [facility] Comment on above: Result Comment: To [...] reference intervals for this test in the [email or web address] Laboratory Test Directory ([employer]fusion). This test was developed and its performance characteristics determined by [facility] [facility]. It has not been cleared or approved by the [place] Food and Drug Administration. This test was performed in a CLIA certified laboratory and is intended for clinical purposes. Performed By: [facility] [address] [place] [address] Professor Of German: Jovanna Núñez MD Performed By: #### D HEAO, INSO, 17HPO, TSTFO #### The performing lab is in the report. #### PRLA3 #### [facility] [address] [place] [address] #### GLUC3, TSH5 #### [facility] [address] [facility] [place] [address] 17-Hydroxyprogesterone, Darrick ton 11-01-2020 17 [place] Progesterone 48.27 ng/dL Normal <=206.00 [facility] Comment on above: Result Comment: INTE RPRETIVE INFORMATION for 17-Hydroxyprogesterone in females: Follicular 15 to 70 ng/dL Luteal 35 to 290 ng/dL REFERENCE INTERVAL: 17-Hydroxyprogesterone Qnt, HPLC-MS/MS Access complete set of age- and/or gender-specific reference intervals for this test in the [email or web address] Laboratory Test Directory ([employer]fusion). This test was developed and its performance characteristics determined by [facility] [facility]. It has not been cleared or approved by the [place] Food and Drug Administration. This test was performed in a CLIA certified laboratory and is intended for clinical purposes. Performed By: [facility] [address] [place] [id number] Professor Of German: Jovanna Núñez MD Performed By: #### Gayle MCRAE INSO, 17HPO, TSTFO #### The performing lab is in the report. #### PRLA3 #### [facility] [employer] [facility] [address] [place] [address] #### GLUC3, TSH5 #### [facility] [address] [facility] [place] [address] DHEA SO4on 10-31-2020 DHEA SO4 241 ug/dL Normal 45-270 [facility] Comment on above: Result Comment: REFE RENCE INTERVAL: DHEAS Access complete set of age- and/or gender-specific reference intervals for this test in the [email or web address] Laboratory Test Directory (6fusion). Performed By: [facility] [address] [place] [address] Professor Of German: Jovanna Núñez MD Performed By: #### Gayle CHAMORROAO, INSO, 17HPO, TSTFO #### The performing lab is in the report. #### PRLA3 #### [facility] [address] [place] [address] #### GLUC3, TSH5 #### [facility] [address] [facility] [place] [address] Glucoseon 10-28-2020 Glucose [Mass/Vol] 97 mg/dL Normal 70-100 [facility] Comment on above: Performed By: #### D HEAO, INSO, 17HPO, TSTFO #### The performing lab is in the report. #### PRLA3 #### [facility] [address] [place] [address] #### GLUC3, TSH5 #### [facility] [address] [place] [address] GlucoseOrdered By: Yessi madison on 10-28-2020 Glucose [Mass/Vol] 97 mg/dL 70 - 100 mg/dL [facility] Work Phone: [phone] Test Performed by [facility], [address] Work Phone: 1 [facility] Work Phone: 1 Prolactinon 10-28-2020 Prolactin 8.0 ng/mL Normal 2.8-27.0 [facility] Comment on above: Result Comment: Valu es below 35 ng/mL may be of doubtful significance. Recommend send-out testing to rule out macroprolactin to confirm the result. Performed By: #### D HEAO, INSO, 17HPO, TSTFO #### The performing lab is in the report. #### PRLA3 #### [facility] [address] [place] [address] #### GLUC3, TSH5 #### [facility] [address] [place] [address] ProlactinOrdered By: Yessi Munoz on 10-28-2020 Prolactin 8 ng/mL 2.8 - 27.0 ng/mL [facility] Work Phone: [phone] Comment on above: Values below 35 ng/m L may be of doubtful significance. Recommend send-out testing to rule out macroprolactin to confirm the result. Test Performed by [facility], [address], [place] [address] [facility] Work Phone: [phone] [facility] Work Phone: 1 TSH without ReflexOrdered By : Yessi Munoz on 08-18-2021 TSH Qn 0.531 u[IU]/mL 0.465 - 4.680 u[IU]/mL [employer] [facility] Work Phone: Test Performed by [facility], [address] , [place], [place] [address] [employer] [facility] Work Phone: [employer] [facility] Work Phone: Thyroid Stim. Hormoneon 10-11 Thyroid Stim. Hormone 0.531 u[IU]/mL Normal 0.46 5-4.68 0 [facility] Comment on above: Performed By: #### D HEAO, INSO, 17HPO, TSTFO #### The performing lab is in the report. #### PRLA3 #### [facility] [address] [place] [address] #### GLUC3, TSH5 #### [facility] [address] [place] [address] XR Knee - right 4 Viewson IMPRESSION: No acute fracture or dislocation. Oyster Shipper: [id number] Transcribe Date/Time: Oct 20 2020 5:59P Dictated by : CRISTAL TOWNSEND MD This examination was interpreted and the report reviewed and electronically signed by: CRISTAL TOWNSEND MD on Oct 20 2020 6:01PM [facility] DIVISION OF RADIOLOGY * * *Final Report* [...] on the right. DIVISION OF RADIOLOGY Provider, [facility] - 10/20/2020 * * *Final Report* * [...] IMPRESSION IMPRESSION: No acute fracture or dislocation. Oyster Shipper: [email or web address] Transcribe Date/Time: Oct 20 2020 5:59P Dictated by : CRISTAL TOWNSEND MD This examination was interpreted and the report reviewed and electronically signed by: CRISTAL TOWNSEND MD on Oct 20 2020 6:01PM EST [facility] Radiology Study observation (narrative) [facility] XR Knee - right 4 ViewsOrder ed By: [facility] Provider on 10-20-2020 [facility] Keppra{R} (Levetiracetam)on 09-11-2018 Keppra (Levetiracetam) 10 ug/mL Low 12-46 [facility] Comment on above: Result Comment: INTE RPRETIVE INFORMATION: Keppra (Levetiracetam) Therapeutic Range: 12-46 ug/mL Toxic: Not well Established Pharmacokinetics of levetiracetam are affected by renal function. Adverse effects may include somnolence, weakness, headache and vomiting. This levetiracetam (Keppra) immunoassay uses the [employer] reagents, which has known cross-reactivity with the drug brivaracetam (Briviact) and may report inaccurate results. Patients transitioning from levetiracetam to brivaracetam or those who are using both medications should not monitor drug concentrations with the [employer] assay. These patients should be monitored using a validated chromatographic methodology that distinguishes between drugs to determine drug concentrations. Performed by [facility], [address] [place] [id number] [email or web address], Lucas Ignacio MD - Lab. Director Lipid Panelon 09-10-2018 Cholesterol [Mass/Vol] 183 mg/dL Normal 0-199 [facility] Comment on above: Result Comment: ATP III Cholesterol classification is Desirable. Performed By: #### L IPID #### [facility] [address] [place] [address] Cholesterol in HDL [Mass/Vol] 34 mg/dL Low 40-59 [facility] Comment on above: Result Comment: ATP III [...] CHD Performed By: #### L IPID #### [facility] [address] [place] [address] Cholesterol in LDL [Mass/Vol] 132 mg/dL Critically high 0-129 [facility] Comment on above: Result Comment: ATT III Classification is Borderline High. Performed By: #### L IPID #### [facility] [address] [place] [address] Triglyceride [Mass/Vol] 87 mg/dL Normal 0-150 [facility] Comment on above: Result Comment: ATP III Triglycerides Classification is Normal. Performed By: #### L IPID #### [facility] [address] [place] [address] History And Physical-Dictate don 11-20-2017 History And Physical-Dictated [facility] [address] [facility] [facility] [place] [id number] NAME JOSSE WAYNE [facility] [id number] 1985 ADMIT 11/17/2017 HISTORY AND PHYSICAL IDENTIFYING INFORMATION Josse Wayne is a 32-year-old single, unemployed, female residing in [place], [place]. HISTORY OF PRESENT ILLNESS Patient was seen by her counselor at [facility] where the patient verbalized suicidal plan of taking overdose of sleeping pills. It is reported patient had left the therapy session abruptly to go home to take the overdose. Police were called and she was brought to the [facility]. The patient was tearful, depressed, had [...] was not invited to her father's birthday democrat. The patient claimed that she had been increasingly isolated and withdrawn since the of her mother in 2007 at the age of 47. The patient claimed that she wanted to go out with friends to the [facility] and one of the friends had told [...] PSYCHIATRIC HISTORY The patient was hospitalized at [facility]. She was hospitalized 5 times at [facility] between June 2008 to June 2009. She had been treated at [facility] 3 times between December 2013 to August 2014. She had been also treated at [facility]. She was treated at [facility] in December 2016. She is currently attending counseling at [facility]. She is seeing a psychiatrist at [facility] in [place]. FAMILY HISTORY The patient's mother in 2007 at the age of 49. The patient did not have a close relationship with her father. The patient has 1 brother, 1 sister. The patient is single, never , has no children. SOCIAL HISTORY The patient had graduated from high school in a special education program. 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 She had last worked in 2003. The [...] Nose: No discharge noted. Mouth and pharynx: [place] mucosa. Neck: Supple. Respiratory: Clear to auscultation. [...] seizure precautions. MD Gayle BROWN 11/17/2017 19:55 [id number] T 11/17/2017 20:37 YKD/MODL Electronically Signed By Byron Arriola M.D. on 18 Nov 2017 16:23:40 GMT Normal [facility] Protein mass conc [facility] [address] [address] NAME JOSSE WAYNE [facility] [id number] 1985 DATE 11/20/2017 PROGRESS NOTE The patient [...] Further observation. MD Gayle BROWN 11/20/2017 18:50 [id number] T 11/20/2017 19:44 YKD/MODL Electronically Signed By Byron Arriola M.D. on 23 Nov 2017 18:02:23 GMT Normal [facility] Lipid Panelon 11-17-2017 Cholesterol in HDL mass conc 36 mg/dL Low 40-59 [facility] Comment on above: Performed By: #### L IPID #### Unless otherwise noted, all testing performed by [address] [place], [place] [address] CLIA: [id number] Massage Therapist: Gary Pedro M.D. Cholesterol in LDL mass conc 121 mg/dL Normal 10-150 [facility] Comment on above: Performed By: #### L IPID #### Unless otherwise noted, all testing performed by [place] [address] CLIA: [id number] Massage Therapist: Gary Pedro M.D. Cholesterol in VLDL mass conc 29 mg/dL Normal 5-40 [facility] Comment on above: Performed By: #### L IPID #### Unless otherwise noted, all testing performed by [place] [address] CLIA: [id number] Massage Therapist: Gary Pedro M.D. Cholesterol mass conc 186 mg/dL Normal 100-199 [facility] Comment on above: Performed By: #### L IPID #### Unless otherwise noted, all testing performed by [place] [address] CLIA: [id number] Massage Therapist: Gary Pedro M.D. Cholesterol.total/Chol esterol in HDL mass ratio 5.1 {ratio} High 3.2-5.0 [facility] Comment on above: Result Comment: Alexis brito Coronary Heart Disease Risk Factor (CHDRF): Average risk= 4.4 1/2 Average risk= 3.3 2 times Average risk= 7.1 Performed By: #### L IPID #### Unless otherwise noted, all testing performed by [place] [address] CLIA: [id number] Massage Therapist: Gary Pedro M.D. Triglyceride mass conc 143 mg/dL High 25-120 [facility] Comment on above: Performed By: #### L IPID #### Unless otherwise noted, all testing performed by [place] [address] CLIA: [id number] Massage Therapist: Gary Pedro M.D. Urinalysis, Routineon 2017 Bilirubin,Urine Negative Normal NEG;NEGATI VE [facility] Comment on above: Performed By: #### U A #### Unless otherwise noted, all testing performed by [place] [address] CLIA: [id number] Massage Therapist: Gary Pedro M.D. Blood,Urine Moderate Abnormal NEG;NEGATI VE [facility] Comment on above: Performed By: #### U A #### Unless otherwise noted, all testing performed by [place] [phone] CLIA: [id number] Massage Therapist: Gary Pedro M.D. Character Nom (U) Clear Normal [facility] Comment on above: Performed By: #### U A #### Unless otherwise noted, all testing performed by [place] [phone] CLIA: [id number] Massage Therapist: Gary Pedro M.D. Color Nom (U) Straw Normal [facility] Comment on above: Performed By: #### U A #### Unless otherwise noted, all testing performed by [place] [address] CLIA: [id number] Massage Therapist: Gary Pedro M.D. Glucose Ql (U) Negative Normal NEG;NEGATI VE [facility] Comment on above: Performed By: #### U A #### Unless otherwise noted, all testing performed by [place] [address] CLIA: [id number] Massage Therapist: Gary Pedro M.D. Ketone,Urine Negative Normal NEG;NEGATI VE [facility] Comment on above: Performed By: #### U A #### Unless otherwise noted, all testing performed by [place] [address] CLIA: [id number] Massage Therapist: Gary Pedro M.D. Leuk.Esterase,Urine Negative Normal Negative [facility] Comment on above: Performed By: #### U A #### Unless otherwise noted, all testing performed by [place] [phone] CLIA: [id number] Massage Therapist: Gary Pedro M.D. Nitrite,Urine Negative Normal NEG;NEGATI VE [facility] Comment on above: Performed By: #### U A #### Unless otherwise noted, all testing performed by [place] [address] CLIA: [id number] Massage Therapist: Gary Pedro M.D. pH (U) 7.0 [pH] Normal 4.5-8.0 [facility] Comment on above: Performed By: #### U A #### Unless otherwise noted, all testing performed by [place] [address] CLIA: [id number] Massage Therapist: Gary Pedro M.D. Protein mass conc (U) Negative Normal NEG;NE GATI VE [facility] Comment on above: Performed By: #### U A #### Unless otherwise noted, all testing performed by [place] [address] CLIA: [id number] Massage Therapist: Gary Pedro M.D. RBC LM.HPF #/area (Urine sed) /[HPF] Normal 0-5 [facility] Comment on above: Performed By: #### U A #### Unless otherwise noted, all testing performed by [place] [address] CLIA: [id number] Massage Therapist: Gary Pedro M.D. Specific Shorter,Urine 1.005 Normal 1.003 -1.02 9 [facility] Comment on above: Performed By: #### U A #### Unless otherwise noted, all testing performed by [place] [address] CLIA: [id number] Massage Therapist: Gary Pedro M.D. Squamous Epithelial < 1 Normal 0-40 [facility] Comment on above: Performed By: #### U A #### Unless otherwise noted, all testing performed by [place] [address] CLIA: [id number] Massage Therapist: Gary Pedro M.D. Urobilinogen,Urine < 2.0 Normal <2 [facility] Comment on above: Performed By: #### U A #### Unless otherwise noted, all testing performed by [place] [address] CLIA: [id number] Massage Therapist: Gary Pedro M.D. WBC LM.HPF #/area (Urine sed) /[HPF] Normal 0-5 [facility] Comment on above: Performed By: #### U A #### Unless otherwise noted, all testing performed by [place] [address] CLIA: [id number] Massage Therapist: Gary Pedro M.D. Lab Report: CT/NG [facility] BY PCR on 03-28-2017 Chlamydia trachomatis DNA [Presence] in Urine by Probe and target amplification method Negative Invalid Interpretation Code Negative [facility] Neisseria gonorrhoeae presence Negative Invalid Interpretation Code Negative [facility] Microbiology: Culture, Genit al Comprehensiveon 02-11-2017 CUV . Invalid Interpretation Code [facility] GE use only - for [employer] import when terms are not otherwise specified . Invalid Interpretation Code [facility] Microbiology: (P) Culture, G enital Comprehensiveon 02-08-2017 CUV . Invalid Interpretation Code [facility] Microbiology: (P) Culture, G enital Comprehensiveon 02-07-2017 CUV . Invalid Interpretation Code [facility] Lab Report: CT/NG [facility] BY PCR on 02-06-2017 Chlamydia trachomatis DNA [Presence] in Urine by Probe and target amplification method Negative Invalid Interpretation Code Negative [facility] Neisseria gonorrhoeae presence Negative Invalid Interpretation Code Negative [facility] Office Visit: Follow up Alexis nguyen 02-06-2017 Documentation of current medications (procedure) Done Invalid Interpretation Code [facility] Tobacco smoking status [facility] Never Invalid Interpretation Code [facility] Tobacco smoking status [facility] Tobacco smoking status [facility] Invalid Interpretation Code [facility] Tobacco use HS Never smoker Invalid Interpretation Code [facility] Office Visit: Medication Fol low Upon 10-07-2016 Documentation of current medications (procedure) Done Invalid Interpretation Code [facility] Fall risk assessment No Invalid Interpretation Code [facility] Protein mass conc Done [facility] Tobacco smoking status NHIS Never [facility] Tobacco smoking status NJIS Never smoker [facility] Tobacco use [facility] Never smoker Invalid Interpretation Code [facility] Office Visit: Medication Fol low Upon 04-15-2016 General categories [interpretation] of Cervical or vaginal smear or scraping by Cyto stain Normal Invalid Interpretation Code [facility] Vital Signs Date Time Vital Sign Value Performing Clinician Faci lity 01-08-2025 13:28-0400 Body height 162.6 cm Yessi Munoz MD Work Phone: [facility] 01-08-2025 13:28-0400 Body mass index (BMI) [Ratio] 53.73 kg/m2 Yessi Munoz MD Work Phone: [facility] [employer] 01-08-2025 13:28-0400 Body weight 141.98 kg Yessi Munoz MD Work Phone: [facility] [employer] 01-08-2025 13:28-0400 Diastolic blood pressure 76 mm[Hg] Yessi Munoz MD Work Phone: [facility] [employer] 01-08-2025 13:28-0400 Systolic blood pressure 126 mm[Hg] Yessi Munoz MD Work Phone: [facility] [employer] 12-27-2024 15:15-0400 Body temperature 97 [degF] Yessi Munoz MD Work Phone: [facility] [employer] 12-27-2024 15:15-0400 Diastolic blood pressure 85 mm[Hg] Yessi Munoz MD Work Phone: [facility] [employer] 12-27-2024 15:15-0400 Heart rate 77 /min Yessi Munoz MD Work Phone: [facility] [employer] 12-27-2024 15:15-0400 Respiratory rate 17 /min Yessi Munoz MD Work Phone: [facility] [employer] 12-27-2024 15:15-0400 SaO2% (BldA) [Mass fraction] 100 % Yessi Munoz MD Work Phone: [facility] [employer] 12-27-2024 15:15-0400 Systolic blood pressure 135 mm[Hg] Yessi Munoz MD Work Phone: [facility] [employer] 12-27-2024 11:27-0400 Body height 162.6 cm Yessi Munoz MD Work Phone: [facility] [employer] 12-27-2024 11:27-0400 Body mass index (BMI) [Ratio] 53.73 kg/m2 Yessi Munoz MD Work Phone: [facility] 12-27-2024 11:27-0400 Body weight 141.98 kg Yessi Munoz MD Work Phone: [facility] 12-05-2024 13:23-0400 Body height 162.6 cm Yessi Munoz MD Work Phone: [facility] 12-05-2024 13:23-0400 Body mass index (BMI) [Ratio] 52.01 kg/m2 Yessi Munoz MD Work Phone: [facility] 12-05-2024 13:23-0400 Body weight 137.44 kg Yessi Munoz MD Work Phone: [facility] 12-05-2024 13:23-0400 Diastolic blood pressure 84 mm[Hg] Yessi Munoz MD Work Phone: [facility] 12-05-2024 13:23-0400 Systolic blood pressure 128 mm[Hg] Yessi Munoz MD Work Phone: [facility] 12-02-2024 22:08-0400 Body temperature 98.2 [degF] Peter Maya MD Work Phone: [facility] 12-02-2024 22:08-0400 Diastolic blood pressure 70 mm[Hg] Peter Maya MD Work Phone: [facility] 12-02-2024 22:08-0400 Heart rate 88 /min Peter Maya MD Work Phone: [facility] 12-02-2024 22:08-0400 Respiratory rate 18 /min Peter Maya MD Work Phone: [facility] 12-02-2024 22:08-0400 SaO2% (BldA) [Mass fraction] 97 % Peter Maya MD Work Phone: [facility] 12-02-2024 22:08-0400 Systolic blood pressure 158 mm[Hg] Peter Maya MD Work Phone: [facility] 12-02-2024 19:38-0400 Body height 162.56 cm Peter Maya MD Work Phone: [facility] 12-02-2024 19:38-0400 Body mass index (BMI) [Ratio] 52.7 kg/m2 Peter Maya MD Work Phone: [facility] 12-02-2024 19:38-0400 Body weight 139.42 kg Peter Maya MD Work Phone: [facility] 11-20-2024 08:28-0400 Body temperature 97.39 [degF] Treatment Wstr Work Phone: [facility] 11-20-2024 08:28-0400 Diastolic blood pressure 86 mm[Hg] Treatment Wstr Work Phone: [facility] 11-20-2024 08:28-0400 Heart rate 83 /min Treatment Wstr Work Phone: [facility] 11-20-2024 08:28-0400 SaO2% (BldA) [Mass fraction] 100 % Treatment Wstr Work Phone: [facility] 11-20-2024 08:28-0400 Systolic blood pressure 158 mm[Hg] Treatment Wstr Work Phone: [facility] 11-04-2024 06:57-0400 Body height 162.56 cm Peter Maya MD Work Phone: [facility] 11-04-2024 06:57-0400 Body mass index (BMI) [Ratio] 51.5 kg/m2 Peter Maya MD Work Phone: [facility] 11-04-2024 06:57-0400 Body temperature 98.8 [degF] Peter Maya MD Work Phone: [facility] 11-04-2024 06:57-0400 Body weight 136.07 kg Peter Maya MD Work Phone: [facility] 11-04-2024 06:57-0400 Diastolic blood pressure 80 mm[Hg] Peter Maya MD Work Phone: [facility] 11-04-2024 06:57-0400 Heart rate 99 /min Peter Maya MD Work Phone: [facility] 11-04-2024 06:57-0400 SaO2% (BldA) [Mass fraction] 98 % Peter Maya MD Work Phone: [facility] 11-04-2024 06:57-0400 Systolic blood pressure 134 mm[Hg] Peter Maya MD Work Phone: [facility] 09-12-2024 10:23-0400 Body height 162.6 cm Charlette Plotts TRANSMISSION WORKER.CNM Work Phone: [facility] 09-12-2024 10:23-0400 Body mass index (BMI) [Ratio] 52.66 kg/m2 Charlette Plotts TRANSMISSION WORKER.CNM Work Phone: [facility] 09-12-2024 10:23-0400 Body weight 139.16 kg Charlette Plotts TRANSMISSION WORKER.CNM Work Phone: [facility] 09-12-2024 10:23-0400 Diastolic blood pressure 86 mm[Hg] Cahrlette Plotts TRANSMISSION WORKER.CNM Work Phone: [facility] 09-12-2024 10:23-0400 Systolic blood pressure 128 mm[Hg] Charlette Plotts TRANSMISSION WORKER.CNM Work Phone: [facility] 09-03-2024 11:26-0400 Body mass index (BMI) [Ratio] 52.66 kg/m2 Ziyad Harrell MD Work Phone: [facility] 09-03-2024 11:26-0400 Body temperature 98.8 [degF] Ziyad Harrell MD Work Phone: [facility] 09-03-2024 11:26-0400 Body weight 139.16 kg Ziyad Harrell MD Work Phone: [facility] 09-03-2024 11:26-0400 Heart rate 91 /min Ziyad Harrell MD Work Phone: [facility] 09-03-2024 11:26-0400 Respiratory rate 14 /min Ziyad Harrell MD Work Phone: [facility] 09-03-2024 11:26-0400 SaO2% (BldA) [Mass fraction] 98 % Ziyad Harrell MD Work Phone: [facility] 06-03-2024 13:14-0400 Body mass index (BMI) [Ratio] 53.97 kg/m2 Ziyad Harrell MD Work Phone: [facility] 06-03-2024 13:14-0400 Body weight 142.61 kg Ziyad Harrell MD Work Phone: [facility] 06-03-2024 13:14-0400 Diastolic blood pressure 86 mm[Hg] Ziyad Harrell MD Work Phone: [facility] 06-03-2024 13:14-0400 Heart rate 100 /min Ziyad Harrell MD Work Phone: [facility] 06-03-2024 13:14-0400 Respiratory rate 16 /min Ziyad Harrell MD Work Phone: [facility] 06-03-2024 13:14-0400 SaO2% (BldA) [Mass fraction] 99 % Ziyad Harrell MD Work Phone: [facility] 06-03-2024 13:14-0400 Systolic blood pressure 136 mm[Hg] Ziyad Harrell MD Work Phone: [facility] 05-07-2024 08:34-0500 Body height 162.6 cm Demetrius Robertson APRN - WIRE TRANSFER CLERK Work Phone: [employer] 05-07-2024 08:34-0500 Body mass index (BMI) [Ratio] 54.61 kg/m2 Demetrius Robertson TRANSMISSION WORKER - WIRE TRANSFER CLERK Work Phone: [facility] [employer] 05-07-2024 08:34-0500 Body weight 144.31 kg Demetrius Robertson TRANSMISSION WORKER - WIRE TRANSFER CLERK Work Phone: [facility] [employer] 05-07-2024 08:34-0500 Diastolic blood pressure 86 mm[Hg] Demetrius Robertson TRANSMISSION WORKER - WIRE TRANSFER CLERK Work Phone: [facility] [employer] 05-07-2024 08:34-0500 Heart rate 83 /min Demetrisu Robertson TRANSMISSION WORKER - WIRE TRANSFER CLERK Work Phone: [facility] [employer] 05-07-2024 08:34-0500 Systolic blood pressure 128 mm[Hg] Demetrius Robertson TRANSMISSION WORKER - WIRE TRANSFER CLERK Work Phone: [facility] [employer] 03-25-2024 13:30-0500 Body height 162.6 cm Yessi Munoz MD Work Phone: [facility] [employer] 03-25-2024 13:30-0500 Body mass index (BMI) [Ratio] 55.44 kg/m2 Yessi Munoz MD Work Phone: [facility] [employer] 03-25-2024 13:30-0500 Body weight 146.51 kg Yessi Munoz MD Work Phone: [facility] [employer] 03-25-2024 13:30-0500 Diastolic blood pressure 84 mm[Hg] Yessi Munoz MD Work Phone: [facility] [employer] 03-25-2024 13:30-0500 Systolic blood pressure 130 mm[Hg] Yessi Munoz MD Work Phone: [facility] [employer] 03-08-2024 16:00-0500 Diastolic blood pressure 83 mm[Hg] Yessi Munoz MD Work Phone: [facility] [employer] 03-08-2024 16:00-0500 Heart rate 86 /min Yessi Munoz MD Work Phone: [facility] [employer] 03-08-2024 16:00-0500 Respiratory rate 16 /min Yessi Munoz MD Work Phone: [facility] [employer] 03-08-2024 16:00-0500 SaO2% (BldA) [Mass fraction] 100 % Yessi Munoz MD Work Phone: [facility] [employer] 03-08-2024 16:00-0500 Systolic blood pressure 135 mm[Hg] Yessi Munoz MD Work Phone: [facility] [employer] 03-08-2024 15:10-0500 Body temperature 97.3 [degF] Yessi Munoz MD Work Phone: [facility] [employer] 03-08-2024 13:40-0500 Body height 162.6 cm Yessi Munoz MD Work Phone: [facility] [employer] 03-08-2024 13:40-0500 Body mass index (BMI) [Ratio] 54.93 kg/m2 Yessi Munoz MD Work Phone: [facility] [employer] 03-08-2024 13:40-0500 Body weight 145.15 kg Yessi Munoz MD Work Phone: [facility] [employer] 01-03-2024 11:41-0400 Body height 162.6 cm Yessi Munoz MD Work Phone: [facility] [employer] 01-03-2024 11:41-0400 Body mass index (BMI) [Ratio] 59.73 kg/m2 Yessi Munoz MD Work Phone: [facility] [employer] 01-03-2024 11:41-0400 Body weight 157.85 kg Yessi Munoz MD Work Phone: [facility] [employer] 01-03-2024 11:41-0400 Diastolic blood pressure 86 mm[Hg] Yessi Munoz MD Work Phone: [facility] [employer] 01-03-2024 11:41-0400 Systolic blood pressure 138 mm[Hg] Yessi Munoz MD Work Phone: [facility] [employer] 06-21-2023 09:02-0400 Body height 162.6 cm Demetrius Robertson TRANSMISSION WORKER - WIRE TRANSFER CLERK Work Phone: [facility] [employer] 06-21-2023 09:02-0400 Body mass index (BMI) [Ratio] 55.34 kg/m2 Demetrius Robertson TRANSMISSION WORKER - WIRE TRANSFER CLERK Work Phone: [facility] [employer] 06-21-2023 09:02-0400 Body weight 146.24 kg Demetrius Robertson TRANSMISSION WORKER - WIRE TRANSFER CLERK Work Phone: [facility] [employer] 06-21-2023 09:02-0400 Diastolic blood pressure 79 mm[Hg] Demetrius Robertson TRANSMISSION WORKER - WIRE TRANSFER CLERK Work Phone: [facility] 06-21-2023 09:02-0400 Heart rate 89 /min Demetrius Robertson TRANSMISSION WORKER - WIRE TRANSFER CLERK Work Phone: [facility] 06-21-2023 09:02-0400 Systolic blood pressure 118 mm[Hg] Demetrius Robertson TRANSMISSION WORKER - WIRE TRANSFER CLERK Work Phone: [facility] 05-10-2023 08:50-0500 Body temperature 97.81 [degF] Surjit Ordonez MD Work Phone: [facility] 05-10-2023 08:50-0500 Body weight 145.06 kg Surjit Ordonez MD Work Phone: [facility] 05-10-2023 08:50-0500 Diastolic blood pressure 88 mm[Hg] Surjit Ordonez MD Work Phone: [facility] 05-10-2023 08:50-0500 Heart rate 88 /min Surjit Ordonez MD Work Phone: [facility] 05-10-2023 08:50-0500 Respiratory rate 21 /min Surjit Ordonez MD Work Phone: [facility] 05-10-2023 08:50-0500 SaO2% (BldA) [Mass fraction] 99 % Surjit Ordonez MD Work Phone: [facility] 05-10-2023 08:50-0500 Systolic blood pressure 124 mm[Hg] Surjit Ordonez MD Work Phone: [facility] 04-26-2023 16:26-0500 Body temperature 97.9 [degF] Krislyn Aberegg PA Work Phone: [facility] 04-26-2023 16:26-0500 Body weight 144.24 kg Krislyn Aberegg PA Work Phone: [facility] 04-26-2023 16:26-0500 Diastolic blood pressure 82 mm[Hg] Krislyn Aberegg PA Work Phone: [facility] 04-26-2023 16:26-0500 Heart rate 76 /min Krislyn Aberegg PA Work Phone: [facility] 04-26-2023 16:26-0500 Respiratory rate 18 /min Krislyn Aberegg PA Work Phone: [facility] 04-26-2023 16:26-0500 SaO2% (BldA) [Mass fraction] 98 % Krislyn Aberegg PA Work Phone: [facility] 04-26-2023 16:26-0500 Systolic blood pressure 138 mm[Hg] Krislyn Aberegg PA Work Phone: [facility] 02-07-2023 00:09-0500 Diastolic blood pressure 85 mm[Hg] No Primary Care Physician [facility] 02-07-2023 00:09-0500 Heart rate 85 /min No Primary Care Physician [facility] 02-07-2023 00:09-0500 Respiratory rate 14 /min No Primary Care Physician [facility] 02-07-2023 00:09-0500 SaO2% (BldA) [Mass fraction] 99 % No Primary Care Physician [facility] 02-07-2023 00:09-0500 Systolic blood pressure 160 mm[Hg] No Primary Care Physician [facility] 02-06-2023 20:47-0500 Body height 162.56 cm No Primary Care Physician [facility] 02-06-2023 20:47-0500 Body mass index (BMI) [Ratio] 53.1 kg/m2 No Primary Care Physician [facility] 02-06-2023 20:47-0500 Body temperature 97.8 [degF] No Primary Care Physician [facility] 02-06-2023 20:47-0500 Body weight 140.61 kg No Primary Care Physician [facility] 12-15-2022 17:11-0400 Body mass index (BMI) [Ratio] 53.9 kg/m2 No Primary Care Physician [facility] 12-15-2022 17:11-0400 Body temperature 98.4 [degF] No Primary Care Physician [facility] 12-15-2022 17:11-0400 Body weight 142.65 kg No Primary Care Physician [facility] 12-15-2022 17:11-0400 Diastolic blood pressure 80 mm[Hg] No Primary Care Physician [facility] 12-15-2022 17:11-0400 Heart rate 70 /min No Primary Care Physician [facility] 12-15-2022 17:11-0400 Respiratory rate 18 /min No Primary Care Physician [facility] 12-15-2022 17:11-0400 SaO2% (BldA) [Mass fraction] 97 % No Primary Care Physician [facility] 12-15-2022 17:11-0400 Systolic blood pressure 150 mm[Hg] No Primary Care Physician [facility] 07-08-2022 13:22-0400 Body height 162.6 cm Demetrius Robertson TRANSMISSION WORKER - WIRE TRANSFER CLERK Work Phone: [facility] 07-08-2022 13:22-0400 Body mass index (BMI) [Ratio] 55 kg/m2 Demetrius Robertson TRANSMISSION WORKER - WIRE TRANSFER CLERK Work Phone: [facility] 07-08-2022 13:22-0400 Body weight 145.33 kg Demetrius Robertson TRANSMISSION WORKER - WIRE TRANSFER CLERK Work Phone: [facility] 07-08-2022 13:22-0400 Diastolic blood pressure 96 mm[Hg] Demetrius Robertson TRANSMISSION WORKER - WIRE TRANSFER CLERK Work Phone: [facility] 07-08-2022 13:22-0400 Heart rate 71 /min Demetrius Ailyn TRANSMISSION WORKER - WIRE TRANSFER CLERK Work Phone: [facility] 07-08-2022 13:22-0400 Systolic blood pressure 132 mm[Hg] Demetrius Ailyn TRANSMISSION WORKER - WIRE TRANSFER CLERK Work Phone: [facility] 06-07-2022 14:02-0400 Body temperature 98.49 [degF] Senait Gandhi APRN.WIRE TRANSFER CLERK Work Phone: [facility] 06-07-2022 14:02-0400 Body weight 145.15 kg Senait Gnadhi APRN.WIRE TRANSFER CLERK Work Phone: [facility] 06-07-2022 14:02-0400 Diastolic blood pressure 82 mm[Hg] Senait Gandhi APRN.WIRE TRANSFER CLERK Work Phone: [facility] 06-07-2022 14:02-0400 Heart rate 94 /min Senait Gandhi APRN.WIRE TRANSFER CLERK Work Phone: [facility] 06-07-2022 14:02-0400 Respiratory rate 18 /min Senait Gandhi APRN.WIRE TRANSFER CLERK Work Phone: [facility] 06-07-2022 14:02-0400 SaO2% (BldA) [Mass fraction] 98 % Senait Gandhi APRN.WIRE TRANSFER CLERK Work Phone: [facility] 06-07-2022 14:02-0400 Systolic blood pressure 124 mm[Hg] Senait Gandhi APRN.WIRE TRANSFER CLERK Work Phone: [facility] 03-02-2022 14:35-0500 Body height 162.6 cm Gabe Pierre TRANSMISSION WORKER.WIRE TRANSFER CLERK Work Phone: [facility] 03-02-2022 14:35-0500 Body temperature 98.2 [degF] Gabe Pierre TRANSMISSION WORKER.WIRE TRANSFER CLERK Work Phone: [facility] 03-02-2022 14:35-0500 Body weight 139.71 kg Gabe Matthew TRANSMISSION WORKER.WIRE TRANSFER CLERK Work Phone: [facility] 03-02-2022 14:35-0500 Diastolic blood pressure 78 mm[Hg] Gabe Matthew TRANSMISSION WORKER.WIRE TRANSFER CLERK Work Phone: [facility] 03-02-2022 14:35-0500 Heart rate 82 /min Gabe Matthew TRANSMISSION WORKER.WIRE TRANSFER CLERK Work Phone: [facility] 03-02-2022 14:35-0500 Respiratory rate 24 /min Gabe Matthew TRANSMISSION WORKER.WIRE TRANSFER CLERK Work Phone: [facility] 03-02-2022 14:35-0500 SaO2% (BldA) [Mass fraction] 99 % Gabe Matthew TRANSMISSION WORKER.WIRE TRANSFER CLERK Work Phone: [facility] 03-02-2022 14:35-0500 Systolic blood pressure 110 mm[Hg] Gabe Matthew TRANSMISSION WORKER.WIRE TRANSFER CLERK Work Phone: [facility] 01-10-2022 01:07-0400 Diastolic blood pressure 60 mm[Hg] [facility] Work Phone: 01-10-2022 01:07-0400 Heart rate 110 /min [facility] Work Phone: 01-10-2022 01:07-0400 Respiratory rate 18 /min [facility] Work Phone: 01-10-2022 01:07-0400 SaO2% (BldA) [Mass fraction] 99 % [facility] Work Phone: 01-10-2022 01:07-0400 Systolic blood pressure 140 mm[Hg] [facility] Work Phone: 01-09-2022 22:24-0400 Body height 162.56 cm [facility] Work Phone: 01-09-2022 22:24-0400 Body mass index (BMI) [Ratio] 53 kg/m2 [facility] Work Phone: 01-09-2022 22:24-0400 Body temperature 97.4 [degF] [facility] Work Phone: 01-09-2022 22:24-0400 Body weight 140.1 kg [facility] Work Phone: 11-03-2021 21:50-0400 Body height 162.56 cm [facility] Work Phone: 11-03-2021 21:50-0400 Body mass index (BMI) [Ratio] 54.7 kg/m2 [facility] Work Phone: 11-03-2021 21:50-0400 Body temperature 97.7 [degF] [facility] Work Phone: 11-03-2021 21:50-0400 Body weight 144.7 kg [facility] Work Phone: 11-03-2021 21:50-0400 Diastolic blood pressure 95 mm[Hg] [facility] Work Phone: 11-03-2021 21:50-0400 Heart rate 93 /min [facility] Work Phone: 11-03-2021 21:50-0400 Respiratory rate 15 /min [facility] Work Phone: 11-03-2021 21:50-0400 SaO2% (BldA) [Mass fraction] 99 % [facility] Work Phone: 11-03-2021 21:50-0400 Systolic blood pressure 179 mm[Hg] [facility] Work Phone: 10-19-2021 06:05-0400 Body temperature 97.8 [degF] [facility] Work Phone: 10-19-2021 06:05-0400 Diastolic blood pressure 80 mm[Hg] [facility] Work Phone: 10-19-2021 06:05-0400 Heart rate 75 /min [facility] Work Phone: 10-19-2021 06:05-0400 Respiratory rate 19 /min [facility] Work Phone: 10-19-2021 06:05-0400 SaO2% (BldA) [Mass fraction] 98 % [facility] Work Phone: 10-19-2021 06:05-0400 Systolic blood pressure 136 mm[Hg] [facility] Work Phone: 10-18-2021 14:55-0400 Body height 162.56 cm [facility] Work Phone: 10-18-2021 14:55-0400 Body mass index (BMI) [Ratio] 50.8 kg/m2 [facility] Work Phone: 10-18-2021 14:55-0400 Body weight 134.5 kg [facility] Work Phone: 08-02-2021 21:36-0400 Body height 162.56 cm [facility] Work Phone: 08-02-2021 21:36-0400 Body mass index (BMI) [Ratio] 52 kg/m2 [facility] Work Phone: 08-02-2021 21:36-0400 Body temperature 98.7 [degF] [facility] Work Phone: 08-02-2021 21:36-0400 Body weight 137.3 kg [facility] Work Phone: 08-02-2021 21:36-0400 Diastolic blood pressure 91 mm[Hg] [facility] Work Phone: 08-02-2021 21:36-0400 Heart rate 91 /min [facility] Work Phone: 08-02-2021 21:36-0400 Respiratory rate 20 /min [facility] Work Phone: 08-02-2021 21:36-0400 SaO2% (BldA) [Mass fraction] 97 % [facility] Work Phone: 08-02-2021 21:36-0400 Systolic blood pressure 160 mm[Hg] [facility] Work Phone: 07-09-2021 19:23-0400 Body temperature 97.81 [degF] Bela Praisler-Wood TRANSMISSION WORKER.WIRE TRANSFER CLERK Work Phone: [facility] 07-09-2021 19:23-0400 Body weight 137.08 kg Bela Praisler-Wood TRANSMISSION WORKER.WIRE TRANSFER CLERK Work Phone: [facility] 07-09-2021 19:23-0400 Diastolic blood pressure 82 mm[Hg] Bela Praisler-Wood TRANSMISSION WORKER.WIRE TRANSFER CLERK Work Phone: [facility] 07-09-2021 19:23-0400 Heart rate 101 /min Bela Praisler-Wood TRANSMISSION WORKER.WIRE TRANSFER CLERK Work Phone: [facility] 07-09-2021 19:23-0400 Respiratory rate 16 /min Bela Praisler-Wood TRANSMISSION WORKER.WIRE TRANSFER CLERK Work Phone: [facility] 07-09-2021 19:23-0400 SaO2% (BldA) [Mass fraction] 99 % Bela Praisler-Wood TRANSMISSION WORKER.WIRE TRANSFER CLERK Work Phone: [facility] 07-09-2021 19:23-0400 Systolic blood pressure 128 mm[Hg] Bela Praisler-Wood TRANSMISSION WORKER.WIRE TRANSFER CLERK Work Phone: [facility] 02-06-2017 10:16-0500 BMI (Body Mass Index) 53.49 kg/m2 Sheyla Foster MD [facility] 02-06-2017 10:16-0500 BP Diastolic 79 mm[Hg] Sheyla Foster MD [facility] 02-06-2017 10:16-0500 BP Systolic 123 mm[Hg] Sheyla Foster MD [facility] 02-06-2017 10:16-0500 Height 160.02 cm Sheyla Foster MD [facility] 02-06-2017 10:16-0500 Weight 136.98 kg Sheyla Foster MD [facility] 02-06-2017 10:16-0500 Weight 136.99 kg Sheyla Foster MD [facility] 10-07-2016 14:26-0400 BMI (Body Mass Index) 54.2 kg/m2 Sheyla Foster MD [facility] 10-07-2016 14:26-0400 Body Temperature 98.2 [degF] Sheyla Foster MD [facility] 10-07-2016 14:26-0400 BP Diastolic 87 mm[Hg] Sheyla Foster MD [facility] 10-07-2016 14:26-0400 BP Systolic 131 mm[Hg] Sheyla Foster MD [facility] 10-07-2016 14:26-0400 Height 160.02 cm Sheyla Foster MD [facility] 10-07-2016 14:26-0400 Pulse (Heart Rate) 88 /min Sheyla Foster MD [facility] 10-07-2016 14:26-0400 Respiratory Rate 17 /min Sheyla Foster MD [facility] 10-07-2016 14:26-0400 Weight 138.8 kg Sheyla Foster MD [facility] 07-04-2013 13:54-0400 BSA (Body Surface Area) 2.24 m2 Sheyla Foster MD [facility] Encounters Encounter Date Encounter Type Care Provider Facility Start: 01-20-2025 End: 01-20-2025 ambulatory SURJIT ORDONEZ Facility:[facility] Start: 01-08-2025 End: 01-08-2025 Office outpatient visit 15 minutes Yessi Munoz MD Work Phone: [facility] Ob[facility]etrics [facility] Gyne[facility] - [place] Comment on above: Abnormal uterine ble eding (AUB) (Primary Dx) Start: 01-08-2025 End: 01-08-2025 ambulatory YESSI MUNOZ [facility] Start: 01-02-2025 End: 01-02-2025 ambulatory ZIYAD HARRELL Facility:[facility] Start: 12-27-2024 End: 12-27-2024 ambulatory YESSI MUNOZ [facility] Start: 12-27-2024 End: 12-27-2024 Subsequent hospital visit by physician Yessi Munoz MD Work Phone: [facility] Comment on above: Endometrial hyperpla pineda, unspecified Start: 12-26-2024 End: 12-26-2024 ambulatory Yessi Munoz MD Work Phone: [facility] PRE PROCEDURE Start: 12-20-2024 End: 12-20-2024 ambulatory YESSI MUNOZ [facility] Start: 12-20-2024 End: 12-20-2024 Encounter for other preprocedural examination YESSI MUNOZ [facility] Start: 12-05-2024 End: 12-09-2024 Telephone encounter Yessi Munoz MD Work Phone: [facility] Comment on above: Other (Surgery sched uling form); Surgery Scheduling Start: 12-05-2024 End: 12-05-2024 Office outpatient visit 25 minutes Yessi Munoz MD Work Phone: [facility] Comment on above: Endometrial hyperpla pineda (Primary Dx) Start: 12-05-2024 End: 12-05-2024 ambulatory YESSI MUNOZ [facility] Start: 12-02-2024 End: 12-02-2024 Emergency department patient visit Dalia Valdes Facility:[facility] Start: 11-20-2024 End: 11-20-2024 ambulatory Treatment 17 [facility] Work Phone: Hematology/Oncology Comment on above: PCOS (polycystic ova maddison syndrome) (Primary Dx) Start: 11-12-2024 End: 11-12-2024 Telephone encounter Yessi Munoz MD Work Phone: [facility] Comment on above: Surgery Scheduling ( Patient [...] OB/Gynecology Start: 09-12-2024 End: 09-12-2024 ambulatory CHARLETTE BRYANT Facility:[facility] Start: 09-12-2024 End: 09-12-2024 Patient encounter procedure Charlette Bryant APRN.CNM Work Phone: OB/Gynecology Comment on above: Abnormal uterine ble eding (AUB) (Primary Dx); Menorrhagia with irregular cycle; Endometrial hyperplasia Start: 09-12-2024 End: 09-12-2024 ambulatory CHARLETTE BRYANT Facility:[facility] Start: 09-03-2024 End: 09-03-2024 ambulatory ZIYAD HARRELL Facility:[facility] Start: 09-03-2024 End: 09-03-2024 Patient encounter procedure Ziyad Harrell MD Work Phone: Endocrinology Comment on above: High serum 17-hydrox yprogesterone (Primary Dx) Start: 09-03-2024 End: 09-03-2024 ambulatory Peter Maya MD Work Phone: -Laboratory [facility] Start: 09-03-2024 End: 09-03-2024 Patient encounter procedure Rafia Bianchi NP-C -Laboratory [facility] Start: 09-03-2024 End: 09-03-2024 ambulatory Rafia Bianchi Facility:[facility] Start: 08-31-2024 End: 08-31-2024 ambulatory Peter Maya MD Work Phone: [facility] Work Phone: Start: 08-31-2024 End: 08-31-2024 Patient encounter procedure Jones Valenzuela OIL FIELD RIG BUILDER-C -Laboratory Future Work Phone: Start: 08-31-2024 End: 08-31-2024 ambulatory Jones Valenzuela [facility] Facility:[facility] Start: 08-06-2024 End: 08-06-2024 ambulatory ZIYAD HARRELL Facility:[facility] Start: 06-13-2024 ambulatory YESSI MUNOZ [facility] Start: 06-13-2024 End: 06-15-2024 Evaluation and management of inpatient YADIRAPAM OROZCOKE [facility] Start: 06-13-2024 End: 06-13-2024 ambulatory YESSI MUNOZ [facility] Start: 06-12-2024 End: 06-12-2024 Telephone encounter Yessi Munoz MD Work Phone: [facility] Obstetrics and Gynecology [facility] Comment on above: Surgery Scheduling Start: 06-03-2024 End: 06-03-2024 ambulatory ZIYAD NIECY HARRELL Facility:[facility] Start: 06-03-2024 End: 06-03-2024 Patient encounter procedure Ziyad Harrell MD Work Phone: Endocrinology Comment on above: Class 3 severe obesi ty due to excess calories without serious comorbidity with body mass index (BMI) of 50.0 to 59.9 in adult (HCC) (Primary Dx); PCOS (polycystic ovarian syndrome) Start: 05-07-2024 End: 05-07-2024 Office outpatient visit 15 minutes Demetrius Vogel CNP Work Phone: [facility] Neuroscience [facility] Comment on above: 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, not intractable, without status epilepticus (HCC) (Primary Dx) Start: 05-07-2024 End: 05-07-2024 ambulatory DEMETRIUS ROBERTSON [facility] Start: 04-26-2024 End: 04-26-2024 ambulatory Peter Maya Facility:[facility] Start: 04-18-2024 End: 04-19-2024 Telephone encounter Esteban Leyva KARTHIK [facility] Clinical Communication Comment on above: Other (Pt calling ne eds referral sent to [facility] for endocrinology phone number is [phone]./Please send referral this is closer to her home//Please advise) Other (Pt calling ne eds referral sent to [facility] for endocrinology phone number is [phone]./Please send referral this is closer to her home//Please advise); Referral (Patient states she could not get into [place] and would like the order sent to Dr. Ziyad Harrell at [facility] [address] [facility] [phone]) Start: 03-28-2024 End: 03-28-2024 Telephone encounter Elton Cherry MD Work Phone: [facility] Comment on above: Other (Referral ) Start: 03-25-2024 End: 03-25-2024 Office outpatient visit 25 minutes Yessi Munoz MD Work Phone: [facility] Obstetrics and Gynecology [facility] Comment on above: PCOS (polycystic ova maddison syndrome) (Primary Dx); Endometrial hyperplasia Start: 03-25-2024 End: 03-25-2024 ambulatory YESSI MUNOZ [facility] Start: 03-14-2024 End: 03-14-2024 Telephone encounter Demetrius Robertson TRANSMISSION WORKER - WIRE TRANSFER CLERK Work Phone: [facility] Neuroscience [facility] Start: 03-11-2024 End: 03-13-2024 Refill Yessi Munoz MD Work Phone: [facility] PRE PROCEDURE Start: 03-08-2024 End: 03-08-2024 ambulatory Yessi Munoz MD Work Phone: [facility] PRE PROCEDURE Start: 03-08-2024 End: 03-08-2024 Subsequent hospital visit by physician Yessi Munoz MD Work Phone: [facility] Comment on above: Excessive bleeding i n the premenopausal period Start: 03-04-2024 End: 03-04-2024 ambulatory YESSI MUNOZ [facility] Start: 02-26-2024 End: 02-26-2024 Telephone encounter Yessi Munoz MD Work Phone: [facility] Gynecologic Oncology - [place] Comment on above: Other (Surgery [facility] office) Start: 02-05-2024 End: 02-06-2024 Orders Only Yessi Munoz MD Work Phone: [facility] PRE PROCEDURE Start: 01-24-2024 End: 01-25-2024 ambulatory Jose Villagomez RN [facility] Clinical Communication Start: 01-24-2024 End: 01-25-2024 Patient encounter procedure Jose Villagomez RN [facility] Clinical Communication Start: 01-23-2024 End: 01-23-2024 ambulatory YESSI MUNOZ [facility] Start: 01-18-2024 End: 01-18-2024 Telephone encounter Yessi Munoz MD Work Phone: [facility] Obstetrics and Gynecology [facility] Comment on above: Results Start: 01-08-2024 End: 01-08-2024 ambulatory Katja Briggs RN [facility] Clinical Communication Start: 01-08-2024 End: 01-08-2024 Patient encounter procedure Katja Briggs RN [facility] Clinical Communication Start: 01-05-2024 End: 01-05-2024 ambulatory Chalon Lj Facility:[facility] Start: 01-03-2024 End: 01-03-2024 Office outpatient visit 25 minutes Yessi Munoz MD Work Phone: [facility] Obstetrics and Gynecology [facility] Comment on above: Excessive bleeding i n premenopausal period (Primary Dx) Start: 12-14-2023 End: 12-14-2023 ambulatory Chalon Lj Facility:[facility] Start: 09-27-2023 Telephone encounter Anthony betts [...] Anthony Garvin DO Work Phone: [facility] [place] Comment on above: Osteoarthritis of ri ght knee, unspecified osteoarthritis type (Primary Dx) Start: 08-25-2023 End: 08-25-2023 Subsequent hospital visit by physician Xr [facility] Work Phone: Radiology Comment on above: Right knee pain, uns pecified chronicity [M25.561] Start: 08-15-2023 Orders Only Anthony Araujo O Work Phone: Orthopaedics Comment on above: Right knee pain, uns pecified chronicity (Primary Dx) Start: 06-21-2023 End: 06-21-2023 Office outpatient visit 15 minutes Demetrius Vogel CNP Work Phone: [facility] Neuroscience Comment on above: 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, not intractable, without status epilepticus (HCC) (Primary Dx) Start: 05-10-2023 End: 05-10-2023 Patient encounter procedure Surjit Ordonez MD Work Phone: [facility] Comment on above: Sore throat (Primary Dx); Papule of skin Start: 04-26-2023 End: 04-26-2023 Patient encounter procedure Jose MUELLER Work Phone: [facility] Comment on above: Sinobronchitis (Prim teresa Dx); Acute otitis media, left Start: 04-17-2023 Refill Demetrius sanchez TRANSMISSION WORKER - WIRE TRANSFER CLERK Work Phone: [facility] Neuroscience Start: 02-14-2023 ambulatory Aubrie Rich MA [facility] Comment on above: Population Health Na vigation Outreach ([place] Attribution Member- Chart review) Start: 02-06-2023 End: 02-07-2023 Emergency department patient visit No Primary Care Physician [facility]-Emergency Department Work Phone: Start: 12-15-2022 End: 12-15-2022 Patient encounter procedure No Primary Care Physician [facility] Work Phone: Start: 11-29-2022 Refill Demetrius sanchez TRANSMISSION WORKER - WIRE TRANSFER CLERK Work Phone: [facility] Neuroscience Start: 09-05-2022 ambulatory Gabe Todd el TRANSMISSION WORKER.WIRE TRANSFER CLERK Work Phone: [facility] Start: 07-22-2022 ambulatory Gabe Todd el TRANSMISSION WORKER.WIRE TRANSFER CLERK Work Phone: [facility] Comment on above: Allied Health Visit (Medication Adherence Outreach/) Start: 07-13-2022 Telephone encounter Anderson soni MD Work Phone: [facility] Neuroscience Comment on above: Lab work ; Release o f Information Start: 07-08-2022 End: 07-08-2022 Office outpatient visit 15 minutes Demetrius Robertson TRANSMISSION WORKER - WIRE TRANSFER CLERK Work Phone: [facility] Neuroscience Comment on above: 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, not intractable, without status epilepticus (HCC) (Primary Dx) Start: 07-01-2022 ambulatory Gabe chiang TRANSMISSION WORKER.WIRE TRANSFER CLERK Work Phone: [facility] Comment on above: Allied Health Visit (Medication Adherence Outreach/) Start: 06-07-2022 End: 06-07-2022 Patient encounter procedure Senait Gandhi TRANSMISSION WORKER.WIRE TRANSFER CLERK Work Phone: [facility] Comment on above: Rhinosinusitis (Prim teresa Dx) Start: 03-25-2022 Telephone encounter Yessi Munoz MD Work Phone: [facility] TEACHING ASSISTANT Comment on above: Cancelled Appointmen t (03.30.22 / insurance issues) Start: 03-02-2022 Encounter for genera l adult medical examination without abnormal findings GABE PIERRE [facility] Start: 03-02-2022 End: 03-02-2022 ambulatory GABE PIERRE Facility:[facility] Start: 03-02-2022 End: 03-02-2022 Patient encounter procedure Gabe Pierre APRN.WIRE TRANSFER CLERK Work Phone: [facility] Comment on above: Encounter for medica l examination to establish care (Primary Dx); Rash of face; Moderate episode of recurrent major depressive disorder (HCC); PCOS (polycystic ovarian syndrome); Generalized tonic clonic epilepsy (HCC) Start: 03-02-2022 End: 03-02-2022 Patient encounter status Gabe Pierre APRN.WIRE TRANSFER CLERK Work Phone: [facility] Start: 02-28-2022 Telephone encounter Gabe Pierre APRN.CNP Work Phone: [facility] Comment on above: Appointment Start: 02-24-2022 Telephone encounter Gabe Pierre APRN.CNP Work Phone: [facility] Comment on above: Patient Question Start: 01-21-2022 End: 01-21-2022 Patient encounter procedure Anthony Garvin DO Work Phone: [facility] [place] Comment on above: Contusion of right l ower extremity, subsequent encounter (Primary Dx); Prepatellar bursitis, right knee Start: 01-09-2022 End: 01-10-2022 Emergency department patient visit [facility] Start: 11-03-2021 End: 11-03-2021 Emergency department patient visit [facility] Start: 10-18-2021 End: 10-19-2021 Emergency department patient visit [facility] Start: 09-27-2021 Telephone encounter Katerine Leongc marbin TRANSMISSION WORKER.WIRE TRANSFER CLERK Work Phone: OB/Gynecology Comment on above: Results Start: 08-05-2021 ambulatory Soha Mathew MA [facility] Comment on above: Population Health Na vigation Outreach ([place] Attribution Care Gaps) Start: 08-02-2021 End: 08-02-2021 Emergency department patient visit [facility] Start: 07-09-2021 End: 07-09-2021 Patient encounter procedure Bela Joseph TRANSMISSION WORKER.WIRE TRANSFER CLERK Work Phone: [facility] Comment on above: TMJ pain [...] 10-20-2020 Subsequent hospital visit by physician [facility] Work Phone: Radiology Comment on above: Right knee injury, i nitial encounter [S89.91XA] Start: 11-17-2017 End: 11-23-2017 Evaluation and management of inpatient [facility] Facility:[facility] Date Procedure Procedure Detail Performing Clinician Start: 12-27-2024 Urine test visual color cmprsn chang Clemens MD Work Phone: Start: 12-05-2024 Follow-up visit Follow-up YESSI MUNOZ Start: 12-02-2024 Estimated creatinine clearance Peter gant MD Work Phone: Start: 12-02-2024 Urnls dip stick/tablet reagent auto microscopy Peter Maya MD Work Phone: Start: 03-08-2024 End: 03-08-2024 Hysteroscopy bx endometrium&/polypc w/wo d&c Yessi Munoz MD Work Phone: Start: 05-10-2023 STREP A MOLECULAR (POC) Surjit Ordonez MD Work Phone: Start: 02-06-2023 Plain chest [...] End: 10-07-2016 Urine test visual color cmprsn casmannie Sheyla Foster MD Work Phone: Start: 10-07-2016 End: 10-07-2016 Urine, test (choriogonadotropin presence) Sheyla Foster MD Work Phone: Viral antigen assay Plan of Treatment Date Care Activity Detail Author Start: 06-15-2058 RSV Immunization for Adults (1 - 1-dose 75+ series) RSV Immunization for Adults (1 - 1-dose 75+ series) [facility] Start: 2043 RSV Immunization aged 60 or older (1 - 1-dose 60+ series) RSV Immunization aged 60 or older (1 - 1-dose 60+ series) [facility] Start: 06-15-2033 Zoster Vaccines (1 of 2) Zoster Vaccines (1 of 2) [facility] Start: 01-30-2028 DTaP/Tdap/Td vaccine (3 - Td or Tdap) DTaP/Tdap/Td vaccine (3 - Td or Tdap) [facility] Work Phone: Start: 01-30-2028 DTaP/Tdap/Td Vaccines (3 - Td or Tdap) DTaP/Tdap/Td Vaccines (3 - Td or Tdap) [facility] Start: 01-30-2028 Urine microalbumin profile [facility] Start: 10-11-2026 HPV TESTING HPV TESTING [facility] Start: 10-11-2026 PAP TESTING PAP TESTING [facility] Start: 10-11-2026 Screening for malignant neoplasm of cervix [facility] Start: 12-20-2025 Diabetes mellitus screening Diabetes Screening [facility] Start: 05-07-2025 End: 05-07-2025 Patient encounter procedure [facility] Start: 04-16-2025 End: 04-16-2025 Patient encounter procedure 04/16/2025 11:00 AM EST Office Visit [facility] [place] [phone] Yessi Munoz MD [address] [place] [address] [facility] Start: 01-16-2025 End: 01-16-2025 Patient encounter procedure 01/16/2025 10:00 AM EST Office Visit Endocrinology [address] [place], [place] [phone] Ziyad Harrell MD [address] [place], [place] [phone] Follow Up after ACTH Test Endocrinology Comment on above: Follow Up after ACTH Test Start: 01-08-2025 End: 01-08-2025 Patient encounter procedure 01/08/2025 1:30 PM EDT Office Visit [facility] [address] [place] [phone] Yessi Munoz MD [address] [place] [address] [facility] Obstetrics and Gynecology [facility] Start: 12-27-2024 End: 12-27-2024 Admission to same day surgery center 12/27/2024 2:00 PM EDT - 12/27/2024 3:00 PM EDT Surgery SB MAIN OR [address] [place] [phone] Yessi Munoz MD [address] [place] [phone] HYSTEROSCOPY DILATION AND CURETTAGE [92423 (CPT )] [facility] MAIN OR Comment on above: HYSTEROSCOPY DILATION AND CURETTAGE [280 25 (CPT )] Start: 12-27-2024 End: 12-27-2024 Anesthesia consultation 12/27/2024 2:00 PM EDT Anesthesia Event [facility] MAIN OR [address] [place] [phone] Rafia Caceres PA-C [address] [place] [address] [facility] MAIN OR Start: 12-27-2024 Subsequent hospital visit by physician 12/27/2024 2:00 PM EDT Hospital Encounter [facility] MAIN OR [address] [place] [phone] Yessi Munoz MD [address] [place] [address] [facility] MAIN OR Start: 12-27-2024 End: 12-27-2024 Hysteroscopy bx endometrium&/polypc w/wo d&c [facility] Operating Room Start: 12-22-2024 Screening for malignant neoplasm of cervix [facility] Start: 12-20-2024 End: 12-20-2024 Admission to establishment 12/20/2024 3:00 PM EDT Pre-Admission Testing [facility] Pre-Admit Testing [address] [place] [phone] [facility] Pre-Admit Testing Start: 12-13-2024 Depression Monitoring Depression Monitoring [facility] Start: 12-05-2024 End: 12-05-2024 Patient encounter procedure 12/05/2024 9:30 AM EDT Office Visit [facility] Obstetrics and Gynecology [facility] [address] [place] [address] Yessi Munoz MD [address] [place] [address] [facility] Obstetrics and Gynecology [facility] Start: 12-02-2024 [facility] Start: 11-20-2024 End: 11-20-2024 ambulatory [facility] Comment on above: LAB 2ND Start: 11-12-2024 End: 11-12-2024 Patient encounter procedure 11/12/2024 11:40 AM EDT Office Visit Endocrinology [address] [place] [address] Ziyad Harrell MD [address] [place] [address] 2 month f/u-PCOS Endocrinology Comment on above: 2 month f/u-PCOS Start: 11-11-2024 COVID-19 Vaccine ( season) COVID-19 Vaccine ( season) [facility] Start: 11-11-2024 Influenza vaccination [facility] Start: 09-27-2024 End: 09-27-2024 Patient encounter procedure 09/27/2024 1:40 PM EDT Office Visit OB/Gynecology [address] [place] [address] Ricco Gandhi MD [address] [place] [address] [facility] OB/Gynecology Comment on above: [facility] Start: 09-20-2024 End: 09-20-2024 Patient encounter procedure 09/20/2024 10:45 AM EDT Appointment Radiology [address] [place] [address] Abnormal uterine bleeding (AUB) [N93.9] Radiology Comment on above: Abnormal uterine bleeding (AUB) [N93.9] Start: 09-12-2024 End: 12-12-2024 Cancer Ag 125 [Units/volume] in Serum or Plasma [facility] Comment on above: Expected: 09/12/2024, Expires: Start: 09-12-2024 End: 09-12-2024 Patient encounter procedure 09/12/2024 10:00 AM EDT Office Visit OB/Gynecology [address] [place] [address] Charlette Bryant APRN.[facility] [address] [place] [address] Menorrhagia OB/Gynecology Comment on above: Menorrhagia Start: 09-03-2024 End: 12-03-2024 17-Hydroxyprogesterone [Mass/volume] in Serum or Plasma HYDROXYPROGESTERONE-17 Lab Routine 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 Expected: 09/03/2024, Expires: 12/03/2024 [facility] Comment on above: Expected: 09/03/2024, Expires: Start: 09-03-2024 End: 12-03-2024 ACTH STIMULATION,2 TIME POINTS ACTH STIMULATION,2 TIME POINTS Lab Routine 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 Expected: 09/03/2024, Expires: 12/03/2024 [facility] Work Phone: Comment on above: Expected: 09/03/2024, Expires: Start: 09-03-2024 End: 12-03-2024 Cortisol [Mass/volume] in Serum or Plasma --post dose dexamethasone CORTISOL SUPRES POST Lab Routine Class 3 severe obesity due to excess calories without serious comorbidity with body mass index (BMI) of 50.0 to 59.9 in adult (HCC) PCOS (polycystic ovarian syndrome) Expected: 09/03/2024, Expires: 12/03/2024 [facility] Comment on above: Expected: 09/03/2024, Expires: Start: 09-03-2024 End: 12-03-2024 DEXAMETHASONE DEXAMETHASONE Lab Routine Class 3 severe obesity due to excess calories without serious comorbidity with body mass index (BMI) of 50.0 to 59.9 in adult (HCC) PCOS (polycystic ovarian syndrome) Expected: 09/03/2024, Expires: 12/03/2024 [facility] Comment on above: Expected: 09/03/2024, Expires: Start: 09-03-2024 End: 09-03-2024 Patient encounter procedure 09/03/2024 11:20 AM EDT Office Visit Endocrinology [address] [place], [place] [phone] Ziyad Harrell MD [address] [place], [place] [phone] 3 MTH F/U Endocrinology Comment on above: 3 MTH F/U Start: 08-02-2024 End: 11-01-2024 17-Hydroxyprogesterone [Mass/volume] in Serum or Plasma HYDROXYPROGESTERONE-17 Lab Routine Class 3 severe obesity due to excess calories without serious comorbidity with body mass index (BMI) of 50.0 to 59.9 in adult (HCC) PCOS (polycystic ovarian syndrome) Expected: 08/02/2024, Expires: 11/01/2024 [facility] Work Phone: Comment on above: Expected: 08/02/2024, Expires: Start: 08-02-2024 End: 11-01-2024 DHEA-S BLD DHEA-S BLD Lab Routine Class 3 severe obesity due to excess calories without serious comorbidity with body mass index (BMI) of 50.0 to 59.9 in adult (HCC) PCOS (polycystic ovarian syndrome) Expected: 08/02/2024, Expires: 11/01/2024 [facility] Comment on above: Expected: 08/02/2024, Expires: Start: 08-02-2024 End: 11-01-2024 Estradiol (E2) [Mass/volume] in Serum or Plasma ESTRADIOL-17B BLD Lab Routine Class 3 severe obesity due to excess calories without serious comorbidity with body mass index (BMI) of 50.0 to 59.9 in adult (HCC) PCOS (polycystic ovarian syndrome) Expected: 08/02/2024, Expires: 11/01/2024 [facility] Comment on above: Expected: 08/02/2024, Expires: Start: 08-02-2024 End: 11-01-2024 Follitropin [Units/volume] in Serum or Plasma FOLLICLE STIMULATING HORMONE Lab Routine Class 3 severe obesity due to excess calories without serious comorbidity with body mass index (BMI) of 50.0 to 59.9 in adult ([facility]) PCOS (polycystic ovarian syndrome) Expected: 08/02/2024, Expires: 11/01/2024 [facility] Comment on above: Expected: 08/02/2024, Expires: Start: 08-02-2024 End: 11-01-2024 Lutropin [Units/volume] in Serum or Plasma LUTEINIZING HORMONE Lab Routine Class 3 severe obesity due to excess calories without serious comorbidity with body mass index (BMI) of 50.0 to 59.9 in adult ([facility]) PCOS (polycystic ovarian syndrome) Expected: 08/02/2024, Expires: 11/01/2024 [facility] Comment on above: Expected: 08/02/2024, Expires: Start: 08-02-2024 End: 11-01-2024 Prolactin [Mass/volume] in Serum or Plasma PROLACTIN Lab Routine Class 3 severe obesity due to excess calories without serious comorbidity with body mass index (BMI) of 50.0 to 59.9 in adult ([facility]) PCOS (polycystic ovarian syndrome) Expected: 08/02/2024, Expires: 11/01/2024 [facility] Comment on above: Expected: 08/02/2024, Expires: Start: [...] syndrome) Expected: 08/02/2024, Expires: 11/01/2024 [facility] Comment on above: Expected: 08/02/2024, Expires: Start: 08-02-2024 End: 11-01-2024 Thyrotropin [Units/volume] in Serum or Plasma THYROID STIMULATING HORMONE Lab Routine Class 3 severe obesity due to excess calories without serious comorbidity with body mass index (BMI) of 50.0 to 59.9 in adult (HCC) PCOS (polycystic ovarian syndrome) Expected: 08/02/2024, Expires: 11/01/2024 [facility] Comment on above: Expected: 08/02/2024, Expires: Start: 08-02-2024 End: 11-01-2024 Thyroxine (T4) free [Mass/volume] in Serum or Plasma T4 FREE/FREE THYROXINE Lab Routine Class 3 severe obesity due to excess calories without serious comorbidity with body mass index (BMI) of 50.0 to 59.9 in adult (HCC) PCOS (polycystic ovarian syndrome) Expected: 08/02/2024, Expires: 11/01/2024 [facility] Comment on above: Expected: 08/02/2024, Expires: Start: 07-02-2024 End: 07-02-2024 Patient encounter procedure 07/02/2024 1:30 PM EDT Office Visit [facility] Obstetrics and Gynecology [facility] [address] [place] [phone] Yessi Munoz MD [address] [place] [address] [facility] Obstetrics and Gynecology [facility] Start: 06-19-2024 End: 06-19-2024 Admission to same day surgery center 06/19/2024 7:30 AM EDT - 06/19/2024 8:30 AM EDT Surgery SB MAIN OR [address] [place] [phone] Yessi Munoz MD [address] [place] [phone] HYSTEROSCOPY DILATION AND CURETTAGE [04364 (CPT )] [facility] MAIN OR Comment on above: HYSTEROSCOPY DILATION AND CURETTAGE [585 97 (CPT )] Start: 06-19-2024 End: 06-19-2024 Anesthesia consultation 06/19/2024 7:30 AM EDT Anesthesia Event [facility] MAIN OR [address] [place] [address] Rafia Caceres PA-C [address] [place] [address] [facility] MAIN OR Start: 06-19-2024 End: 06-19-2024 Hysteroscopy bx endometrium&/polypc w/wo d&c DILATION AND CURETTAGE Endometrial hyperplasia, unspecified 06/19/2024 7:30 AM EDT [facility] Operating Room Start: 06-19-2024 Subsequent hospital visit by physician 06/19/2024 7:30 AM EDT Hospital Encounter [facility] MAIN OR [address] [place] [address] Yessi Munoz MD [address] [place] [address] [facility] MAIN OR Start: 06-13-2024 End: 06-13-2024 Admission to establishment 06/13/2024 2:00 PM EDT Pre-Admission Testing [facility] Pre-Admit Testing [address] [place] [phone] [facility] Pre-Admit Testing Start: 06-12-2024 End: 06-12-2024 Anesthesia consultation 06/12/2024 11:59 PM EDT Anesthesia Event [facility] MAIN OR [address] [place] [phone] Rafia Caceres PA-C [address] [place] [address] [facility] MAIN OR Start: 06-12-2024 End: 06-12-2024 Admission to establishment 06/12/2024 11:00 AM EDT Pre-Admission Testing [facility] Pre-Admit Testing [address] [place] [phone] [facility] Pre-Admit Testing Start: 05-07-2024 End: 05-07-2024 Patient encounter procedure 05/07/2024 8:30 AM EST Office Visit [facility] [address] [place] [address] Demetrius [place] APRN - WIRE TRANSFER CLERK [address] [facility] [address] [place] [address] [facility] Start: 04-23-2024 End: 04-23-2024 Patient encounter procedure [facility] Start: 03-25-2024 End: 03-25-2024 Patient encounter procedure 03/25/2024 1:45 PM EST Office Visit [facility] Obstetrics and [facility] [address] [place] [address] Yessi Munoz MD [address] [place] [address] [facility] Obstetrics and Gynecology [facility] Start: 03-18-2024 End: 03-18-2024 Patient encounter procedure 03/18/2024 1:15 PM EST Office Visit [facility] Obstetrics and Gynecology [facility] [address] [place] [address] Yessi Munoz MD [address] [place] [address] [facility] Obstetrics and Gynecology [facility] Start: 03-13-2024 Medicare Advantage Annual Wellness Visit Medicare Advantage Annual Wellness Visit [facility] Start: 03-08-2024 End: 03-08-2024 Admission to same day surgery center 03/08/2024 3:00 PM EST - 03/08/2024 4:00 PM EST Surgery [facility] MAIN OR [address] [place] [address] Yessi Munoz MD [address] [place] [address] HYSTEROSCOPY DILATION AND CURETTAGE [99078 (CPT )] [facility] MAIN OR Comment on above: HYSTEROSCOPY DILATION AND CURETTAGE [585 58 (CPT )] Start: 03-08-2024 Subsequent hospital visit by physician 03/08/2024 3:00 PM EST Hospital Encounter [facility] MAIN OR [address] [place] [address] Yessi Munoz MD [address] [place] [address] [facility] MAIN OR Start: 03-08-2024 End: 03-08-2024 Hysteroscopy bx endometrium&/polypc w/wo d&c [facility] Operating Room Start: 03-04-2024 End: 03-04-2024 Admission to establishment 03/04/2024 9:00 AM EST Pre-Admission Testing [facility] Pre-Admit Testing [address] [place] [address] [facility] Pre-Admit Testing Start: 02-14-2024 End: 02-14-2024 Patient encounter procedure 02/14/2024 11:00 AM EST Procedure Visit [facility] Obstetrics and Gynecology [address] [place] [phone] Yessi Munoz MD [address] [place] [address] [facility] Obst[facility] and [facility] Start: 02-07-2024 End: 02-07-2024 Patient encounter procedure 02/07/2024 11:15 AM EST Procedure Visit [facility] Ob[facility]s [facility] Gynecology [address] [place] [phone] Yessi Munoz MD [address] [place] [address] [facility] Obstetrics and Gynecology [facility] Start: 01-23-2024 End: 01-23-2024 Patient encounter procedure 01/23/2024 11:00 AM EST Office Visit [facility] Obstetrics and Gynecology [facility] [address] [place] [address] [facility] Ob[facility] Gynecology [facility] Start: 01-03-2024 End: 01-02-2025 17-Hydroxyprogesterone 17-Hydroxyprogesterone Lab Routine Excessive bleeding in premenopausal period Expected: 01/03/2024 (Approximate), Expires: 01/02/2025 [facility] Work Phone: Comment on above: Expected: 01/03/2024 (Approximate), Expi res: 01/02/2025 Start: 01-03-2024 End: 01-02-2025 CBC panel - Blood by Automated count CBC Lab Routine Excessive bleeding in premenopausal period Expected: 01/03/2024 (Approximate), Expires: 01/02/2025 [facility] [employer] [facility] Comment on above: Expected: 01/03/2024 (Approximate), Expi res: 01/02/2025 Start: 01-03-2024 End: 01-02-2025 DHEA-sulfate DHEA-sulfate Lab Routine Excessive bleeding in premenopausal period Expected: 01/03/2024 (Approximate), Expires: 01/02/2025 [facility] [employer] Comment on above: Expected: 01/03/2024 (Approximate), Expi res: 01/02/2025 Start: 01-03-2024 End: 01-02-2025 Glucose [Mass/volume] in Serum or Plasma Glucose, random Lab Routine Excessive bleeding in premenopausal period Expected: 01/03/2024 (Approximate), Expires: 01/02/2025 [facility] [employer] Comment on above: Expected: 01/03/2024 (Approximate), Expi res: 01/02/2025 Start: 01-03-2024 End: 01-02-2025 hCG, quantitative hCG, quantitative Lab Routine Excessive bleeding in premenopausal period Expected: 01/03/2024 (Approximate), Expires: 01/02/2025 [facility] [employer] Comment on above: Expected: 01/03/2024 (Approximate), Expi res: 01/02/2025 Start: 01-03-2024 End: 01-02-2025 Insulin Insulin Lab Routine Excessive bleeding in premenopausal period Expected: 01/03/2024 (Approximate), Expires: 01/02/2025 [facility] [employer] Comment on above: Expected: 01/03/2024 (Approximate), Expi res: 01/02/2025 Start: 01-03-2024 End: 01-02-2025 Prolactin Prolactin Lab Routine Excessive bleeding in premenopausal period Expected: 01/03/2024 (Approximate), Expires: 01/02/2025 [facility] [employer] [facility] Comment on above: Expected: 01/03/2024 (Approximate), Expi res: 01/02/2025 Start: 01-03-2024 End: 01-02-2025 Testo,Free/Total (Sendout) Testo,Free/Total (Sendout) Lab Routine Excessive bleeding in premenopausal period Expected: 01/03/2024 (Approximate), Expires: 01/02/2025 [facility] [employer] [facility] Comment on above: Expected: 01/03/2024 (Approximate), Expi res: 01/02/2025 Start: 01-03-2024 End: 01-02-2025 Thyrotropin [Units/volume] in Serum or Plasma TSH Lab Routine Excessive bleeding in premenopausal period Expected: 01/03/2024 (Approximate), Expires: 01/02/2025 [facility] [employer] [facility] Comment on above: Expected: 01/03/2024 (Approximate), Expi res: 01/02/2025 Start: 01-03-2024 End: 01-02-2025 US Pelvis transvaginal US pelvis transvaginal Imaging Routine Excessive bleeding in premenopausal period Expected: 01/03/2024, Expires: 01/02/2025 [facility] [employer] [facility] Comment on above: Expected: 01/03/2024, Expires: Start: 11-12-2023 COVID-19 Vaccine () COVID-19 Vaccine () [facility] [employer] Start: 11-12-2023 Influenza vaccination [facility] Start: 08-25-2023 End: 08-25-2023 Patient encounter procedure 08/25/2023 1:30 PM EDT Office Visit [facility] [address] [place] [address] Anthony Garvin V, DO [address] [place] [address] R knee pain - wants to discuss injection [facility] Comment on above: R knee pain - wants to discuss injection Start: 07-11-2023 End: 07-11-2023 Patient encounter procedure [facility] Start: 2023 Screening for malignant neoplasm of breast [facility] Start: 03-13-2023 Medicare Advantage Annual Wellness Visit Medicare Advantage Annual Wellness Visit [facility] Start: 03-02-2023 HEPATITIS B (2 of 3 - 3-dose series) HEPATITIS B (2 of 3 - 3-dose series) [facility] Comment on above: Postponed from 11/06/1999 (Declined at t his time) Start: 03-02-2023 Hepatitis B Vaccine (2 of 3 - 3-dose series) Hepatitis B Vaccine (2 of 3 - 3-dose series) [facility] Comment on above: Postponed from 11/06/1999 (Declined at t his time) Start: 02-07-2023 [facility] Start: 11-17-2022 Lipid panel Lipid Panel [facility] Start: 11-11-2022 COVID-19 Vaccine ( season) COVID-19 Vaccine ( season) [facility] Start: 11-11-2022 Influenza vaccination [facility] Start: 09-09-2022 Influenza vaccination INFLUENZA (#1) [facility] Comment on above: Postponed from 11/11/2021 (Declined at t his time) Start: 07-08-2022 End: 07-09-2023 Levetiracetam level Levetiracetam level Lab Routine 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, not intractable, without status epilepticus (HCC) Expected: 07/08/2022 (Approximate), Expires: 07/09/2023 [facility] [employer] [facility] Work Phone: Comment on above: Expected: 07/08/2022 (Approximate), Expi res: 07/09/2023 Start: 07-08-2022 End: 07-08-2022 Patient encounter procedure 07/08/2022 Office Visit Neurology Edith AdrianindFRANCO zapata - WIRE TRANSFER CLERK [address] [facility] [address] [place] [address] [facility] [place] Start: 11-11-2021 Influenza vaccination [facility] Start: 10-18-2021 Referral to service [facility] Work Phone: Start: 10-18-2021 End: 10-18-2021 Suicide precautions [facility] Work Phone: Start: 04-15-2021 HPV TESTING HPV TESTING [facility] Start: 04-15-2021 PAP TESTING PAP TESTING [facility] Start: 04-12-2021 End: 04-12-2021 Patient encounter procedure 04/12/2021 Office Visit Neurology Anderson Ordonez MD [address] [facility] [address] [place] [address] [phone] [facility] [place] Start: 04-06-2021 End: 04-06-2021 Patient encounter procedure 04/06/2021 Office Visit Neurology Anderson Ordonez MD [address] [facility] [address] [place] [address] [phone] [facility] [place] Start: 03-13-2021 DEPRESSION ASSESSMENT DEPRESSION ASSESSMENT [facility] Start: 01-06-2021 End: 01-06-2021 Patient encounter procedure 01/06/2021 Office Visit Obstetrics and Gynecology Yessi Munoz MD [address] [place] [address] [phone] [facility] Start: 11-19-2020 End: 11-19-2020 Patient encounter procedure 11/19/2020 Office Visit Obstetrics and Gynecology Yessi Munoz MD [address] [place] [address] [phone] [facility] Santa TEACHING ASSISTANT Start: 11-11-2020 Influenza vaccination Flu vaccine (#1) [facility] Work Phone: Start: 11-05-2020 End: 11-05-2020 Patient encounter procedure 11/05/2020 Procedure visit Obstetrics and Gynecology [facility] Start: 09-06-2020 Annual Wellness Visit (AWV) Annual Wellness Visit (AWV) [facility] Work Phone: Start: 01-29-2019 Adult depression screening assessment DEPRESSION SCREENING [facility] Start: 02-06-2017 End: 02-06-2017 *GC/Chlamydia *GC/Chlamydia [facility] Start: 02-06-2017 End: 02-06-2017 Bacteria genital culture *CUV - Culture, VAG/CX Comprehensive [facility] Start: 02-06-2017 End: 02-06-2017 Appointment Appointment [facility] Start: 02-06-2017 End: 02-06-2017 *GC/Chlamydia *GC/Chlamydia [facility] Start: 02-06-2017 End: 02-06-2017 Bacteria genital culture *CUV - Culture, VAG/CX [facility] Start: 10-07-2016 End: 10-07-2016 Appointment Appointment [facility] Start: 10-07-2016 End: 02-07-2017 17-Hydroxycorticosteroids [Mass/volume] in Urine *17HYDUR Hydroxycortosteroids 17- [facility] Start: 10-07-2016 End: 02-07-2017 Dehydroepiandrosterone sulfate (DHEA-S) *DHEA - DHEA-S (Dehydroepiandrosterone Sullfate) [facility] Start: 10-07-2016 End: 02-07-2017 Testosterone Free [Mass/volume] in Serum or Plasma *TESTOF Testosterone Free [facility] Start: 10-07-2016 End: 02-07-2017 Thyroid stimulating hormone (TSH) *TSH [facility] Start: 10-07-2016 End: 02-07-2017 17-Hydroxycorticosteroids [Mass/volume] in Urine *17HYDUR Hydroxycortosteroids 17- [facility] Start: 10-07-2016 End: 02-07-2017 Dehydroepiandrosterone sulfate (DHEA-S) *DHEA - DHEA-S (Dehydroepiandrosterone Sullfate) [facility] Start: 10-07-2016 End: 02-07-2017 Testosterone Free [Mass/volume] in Serum or Plasma *TESTOF Testosterone Free [facility] Start: 10-07-2016 End: 02-07-2017 Thyroid stimulating hormone (TSH) *TSH [facility] Start: 06-15-2013 Screening for malignant neoplasm of cervix [facility] Start: 06-15-2010 HPV Vaccine (1 - 3-dose SCDM series) HPV Vaccine (1 - 3-dose SCDM series) [facility] Start: 06-15-2004 Screening for malignant neoplasm of cervix [facility] Work Phone: Start: 06-15-2001 Anxiety Screening Anxiety Screening [facility] Start: 06-15-2001 Diabetes mellitus screening Diabetes Screening [facility] Start: 06-15-2001 Hepatitis C screening Hepatitis C Screening [facility] Start: 04-10-2000 Hepatitis A vaccine (2 of 2 - 2-dose series) Hepatitis A vaccine (2 of 2 - 2-dose series) [facility] Work Phone: Start: 04-10-2000 Hepatitis A Vaccines (2 of 2 - 2-dose series) Hepatitis A Vaccines (2 of 2 - 2-dose series) [facility] Start: 11-06-1999 HEPATITIS B (2 of 3 - 3-dose series) HEPATITIS B (2 of 3 - 3-dose series) [facility] Start: 11-06-1999 Hepatitis B vaccine (2 of 3 - 3-dose primary series) Hepatitis B vaccine (2 of 3 - 3-dose primary series) [facility] Work Phone: Start: 11-06-1999 Hepatitis B Vaccine (2 of 3 - 3-dose series) Hepatitis B Vaccine (2 of 3 - 3-dose series) [facility] Start: 11-06-1999 Hepatitis B Vaccines (2 of 3 - 3-dose series) Hepatitis B Vaccines (2 of 3 - 3-dose series) [facility] Start: 06-15-1998 HIV screening HIV screen [facility] Work Phone: Start: 06-15-1996 Varicella vaccination Varicella Vaccines (1 of 2 - 13+ 2-dose series) [facility] Start: 1995 COVID-19 Vaccine (1) COVID-19 Vaccine (1) [facility] Work Phone: Start: 1995 Depression Monitoring Depression Monitoring [facility] Start: 1995 Depresssion Monitoring Depresssion Monitoring [facility] Start: 06-15-1988 COVID-19 VACCINE (#1) COVID-19 VACCINE (#1) [facility] Start: 06-15-1988 COVID-19 VACCINE (1) COVID-19 VACCINE (1) [facility] Start: 06-15-1984 MMR Vaccines (1 of 1 - Standard series) MMR Vaccines (1 of 1 - Standard series) [facility] Start: 06-15-1984 Varicella vaccination Varicella Vaccines (1 of 2 - 2-dose childhood series) [facility] Start: 06-15-1984 Varicella vaccine (1 of 2 - 2-dose childhood series) Varicella vaccine (1 of 2 - 2-dose childhood series) [facility] Work Phone: Start: 1983 COVID-19 VACCINE (#1) COVID-19 VACCINE (#1) [facility] Start: 1983 Hepatitis C screening Hepatitis C screen [facility] Work Phone: Start: 1983 HIV screening HIV Screening [facility] Start: 1983 Lipid panel Lipid Panel [facility] Start: 1983 Medicare Advantage Annual Wellness Visit (AWV) Medicare Advantage Annual Wellness Visit (AWV) [facility] End: 10-28-2020 17-Hydroxyprogesterone 17-Hydroxyprogesterone Lab Routine PCOS (polycystic ovarian syndrome) 1 Occurrences starting 10/28/2020 until 10/28/2020 [facility] Work Phone: Comment on above: 1 Occurrences starting 10/28/2020 until 10/28/2020 17-Hydroxyprogesterone 17-Hydrox yprogesterone Lab Routine PCOS (polycystic ovarian syndrome) 10/28/2020 11:30 AM EDT [facility] Work Phone: End: 03-08-2024 Choriogonadotropin ( test) [Presence] in Urine [facility] [employer] Work Phone: Comment on above: Once (Lab) for 1 Occurrences starting until 03/08/2024 End: 10-28-2020 DHEA-Sulfate DHEA-Sulfate Lab Routine PCOS (polycystic ovarian syndrome) 1 Occurrences starting 10/28/2020 until 10/28/2020 [employer] Work Phone: Comment on above: 1 Occurrences starting 10/28/2020 until 10/28/2020 DHEA-Sulfate DHEA-Sulfate Lab Routine PCOS (polycystic ovarian syndrome) 10/28/2020 11:30 AM EDT [employer] Work Phone: Endometrial bx w/wo endocervix bx w/o dilat spx ENDOMETRIAL BIOPSY Procedures Routine Abnormal uterine bleeding (AUB) Menorrhagia with irregular cycle Ordered: 09/12/2024 [facility] Comment on above: Ordered: 09/12/2024 End: 10-28-2020 Insulin, Random Insulin, Random Lab Routine PCOS (polycystic ovarian syndrome) 1 Occurrences starting 10/28/2020 until 10/28/2020 [employer] Work Phone: Comment on above: 1 Occurrences starting 10/28/2020 until 10/28/2020 Insulin, Random Insulin, Random Lab Routine PCOS (polycystic ovarian syndrome) 10/28/2020 11:30 AM EDT [employer] Work Phone: Patient Education [facility] Work Phone: Patient referral [facility] Work Phone: End: 10-28-2020 Testosterone,Free/[facility] Testosterone,Free/[facility] Lab Routine PCOS (polycystic ovarian syndrome) Other ovarian dysfunction 1 Occurrences starting 10/28/2020 until 10/28/2020 [employer] Work Phone: Comment on above: 1 Occurrences starting 10/28/2020 until 10/28/2020 Testosterone,Free/To [facility] Testosterone,Free/[facility] Lab Routine PCOS (polycystic ovarian syndrome) Other ovarian dysfunction 10/28/2020 11:30 AM EDT [employer] Work Phone: Tissue exam [facility] Work Phone: Comment on above: Release Upon Ordering for 1 Occurrences starting 03/08/2024 Tissue exam [facility] Work Phone: Comment on above: Release Upon Ordering for 1 Occurrences starting 12/27/2024 End: 10-13-2025 US Pelvis transvaginal US FEMALE PELVIS TRANSVAG Radiology Routine Abnormal uterine bleeding (AUB) 1 Occurrences starting 09/12/2024 until 10/13/2025 [facility] Work Phone: Comment on above: 1 Occurrences starting 09/12/2024 until 10/13/2025 End: 09-13-2024 XR Knee - right 4 Views XR KNEE GENERAL 4V AP BOTH/PA BOTH/LAT/MERC RIGHT Radiology Routine Right knee pain, unspecified chronicity 1 Occurrences starting 08/15/2023 until 09/13/2024 [facility] Work Phone: Comment on above: 1 Occurrences starting 08/15/2023 until 09/13/2024 XR Knee - right 4 Views XR KNEE GENERAL 4V AP BOTH/PA BOTH/LAT/MERC RIGHT Radiology Routine Right knee pain, unspecified chronicity 08/25/2023 1:48 PM EDT [facility] Work Phone: [facility] Immunizations Immunization Date Immunization Notes Care Provider Nakul pappas 01-29-2018 tetanus toxoid, redu ro[place] diphtheria toxoid, and acellular pertussis vaccine, adsorbed Bela Praashley-Wood TRANSMISSION WORKER.[facility] Work Phone: [facility] Work Phone: 01-29-2018 influenza virus vaccine, unspecified formulation Aubrie Rich MA [facility] 10-30-2007 tetanus toxoid, redu ro[place] diphtheria toxoid, and acellular pertussis vaccine, adsorbed Bela Praroxaneler-Wood TRANSMISSION WORKER.[facility] Work Phone: [facility] Work Phone: 10-06-2002 hepatitis B immune globulin Bela Pemberton-Pranay TRANSMISSION WORKER.[facility] Work Phone: [facility] Work Phone: 05-27-2002 hepatitis B immune globulin Belatrevon Joseph TRANSMISSION WORKER.WIRE TRANSFER CLERK Work Phone: [facility] Work Phone: 10-09-1999 hepatitis A and hepatitis B vaccine Bela Opal TRANSMISSION WORKER.WIRE TRANSFER CLERK Work Phone: [facility] Work Phone: 10-09-1999 hepatitis B vaccine, unspecified formulation Anthony Garvin V, DO Work Phone: [facility] 09-03-1999 hepatitis B immune globulin Bela Opal TRANSMISSION WORKER.WIRE TRANSFER CLERK Work Phone: [facility] Work Phone: Payers Date Payer Category Payer Self-pay [id number] 2022 Medicaid HMO UHC BEATRIS BUTTSID ONLY [id number] 2019 Medicaid UHC MEDICAID MYC ARE [facility] MEDICAID [id number] 2019-Present [phone] [address] [place] [address] Medicaid [id number] 2019 Medicaid [id number] 2019 Medicare ANTHEM MEDICARE ADVANTAGE ANTHEM MEDICARE ADVANTAGE [id number] 2019-Present [id number] Medicare O [id number] 2019 Medicare (Managed Care) JUANY BUTTSWILLIAM PINKY HMO [id number] 2019 Medicare HMO [id number] 2019 Unknown JUANY OLMEDO CROS S AND BLUE SHIELD ANTHASHLEY MEDIBLUE HMO [id number] 2019-Present [phone] [address] [id number] 2019 Unknown [id number] 2019 Medicaid [id number] 2017 Medicare [id number] 2016 Medicaid [id number] 2009 Medicare [id number] Unknown [id number] Unknown [id number] Unknown [id number] Unknown [id number] Unknown [id number] Unknown [id number] Unknown [id number] Unknown [id number] Unknown [id number] Social History Date Type Detail Facility Start: 10-28-2020 End: 12-02-2024 Tobacco smoking status NHIS Never smoker [facility] Start: 03-01-2012 End: 10-28-2020 Tobacco use and exposure Never used [facility] Start: 10-28-2020 End: 12-27-2024 Alcohol intake Current drinker of alcohol (finding) [facility] Work Phone: Start: 10-06-2020 History SDOH Alcohol Frequency 1 [employer] Work Phone: Start: 10-28-2020 End: 06-13-2024 Alcohol Comment occ [facility] Work Phone: Start: 1985 Sex Assigned At Not on file S [facility] Work Phone: Start: 10-20-2020 End: 07-09-2021 Alcohol intake Current non-drinker of alcohol (finding) [facility] Start: 09-20-2020 End: 07-08-2022 Exposure to SARS-CoV-2 (event) Not sure [facility] Start: 08-02-2021 End: 02-06-2023 Tobacco smoking status NHIS Unknown if ever smoked [facility] Start: 06-07-2020 Occasional [facility] Start: 01-09-2019 None [facility] Start: 06-07-2020 Alone [facility] Start: 07-28-2020 Non-smoker [facility] Start: 1985 Sex Assigned At Female W [facility] Start: 03-02-2022 Alcohol Comment rare [facility] Start: 07-08-2022 End: 05-07-2024 Alcohol intake Ex-drinker (finding) [facility] Start: 07-08-2022 End: 06-13-2024 History of Social function [facility] Work Phone: Start: 07-08-2022 End: 06-13-2024 Tobacco use panel [facility] Work Phone: Start: 02-12-2012 Adult Depression Screening Assessment 0 [facility] Work Phone: Start: 10-11-2021 Sex Female (finding) [facility] How often to you hav e a drink containing alcohol? Never [facility] Start: 06-13-2024 Gender identity Identifies as female gender (finding) [facility] Start: 06-13-2024 Sexual orientation Heterosexual (fin cristofer) [facility] Start: 12-27-2024 Alcohol Comment rarely [facility] Rocael hernandez Functional Status Date Assessment Result Facility 05-06-2014 Are you deaf, or do you have serious difficulty hearing No 05/06/2014 8:21 AM Flakita Denson LPN No [facility] 05-06-2014 Are you blind, or do you have serious difficulty seeing, even when wearing glasses No 05/06/2014 8:21 AM Flakita Denson LPN No [facility] 05-06-2014 Do you have serious difficulty walking or climbing stairs No 05/06/2014 8:21 AM Flakita Denson LPN No [facility] 05-06-2014 Do you have difficul ty dressing or bathing No 05/06/2014 8:21 AM Flakita Denson LPN No [facility] 05-06-2014 Because of a physica l, mental, or emotional condition, do you have difficulty doing errands alone such as visiting a physician's office or shopping No 05/06/2014 8:21 AM Flakita Denson LPN No [facility] Mental Status Date Assessment Result Facility 12-02-2024 Cognitive function Voice[place] [facility] Phone: 01-09-2022 Cognitive function Voice[place]Name [facility] Phone: 05-06-2014 Because of a physica l, mental, or emotional condition, do you have serious difficulty concentrating, remembering, or making decisions No 05/06/2014 8:21 AM Flakita Denson LPN No [facility] Clinical Notes 07-13-2015 to 01-20-2025 Yessi Munoz MD - 01/08/2025 1:30 PM Tyler Munoz MD - 12/27/2024 1:27 PM Tyler Munoz MD - 12/27/2024 1:27 PM Tyler Munoz MD - 12/05/2024 1:30 PM EDT Note Date & Type Note Facility 01-20-2025 Note HNO ID: [id number] Author: SURJIT ORDONEZ MD Service: ? Author Type: Physician Type: Progress Notes Filed: 01/20/2025 11:37 Note Text: URGENT CARE CHRISTOPHER Wayne is a 39 year old female. Patient presents with: Ear Problem: Left ear pain x 2 weeks Sore throat x 5 days Patient has had left ear pain for 2 weeks. Feels pruritic and there is crust at the meatus. She had it evaluated at another urgent care and was told there was no ear infection or cerumen impaction. She was advised she could use Sudafed, hydrocortisone cream, and saline rinse for symptoms. Last 5 days she has had nasal congestion, sore throat. Denies fever or hearing change. Review of Systems Objective BP 142/90 Pulse 89 Temp 36.6 ?C (97.9 ?F) Resp 20 Wt (!) 141.6 kg (312 lb 2.7 oz) LMP 12/27/2024 (Approximate) SpO2 100% BMI 53.58 kg/m? Physical Exam Constitutional: General: She is not in acute distress. HENT: Right Ear: Tympanic membrane and ear canal normal. No swelling. No middle ear effusion. Tympanic membrane is not injected, erythematous, retracted or bulging. Left Ear: Tympanic membrane and ear canal normal. Tenderness (Tender with patient applied pressure on the tragus) present. No swelling. No middle ear effusion. Tympanic membrane is not injected, erythematous, retracted or bulging. Ears: Comments: Small flaky crust bilateral meatus Nose: Congestion present. Right Sinus: No maxillary sinus tenderness or frontal sinus tenderness. Left Sinus: No maxillary sinus tenderness or frontal sinus tenderness. Mouth/Throat: Mouth: Mucous membranes are moist. Pharynx: Posterior oropharyngeal erythema present. No oropharyngeal exudate. Eyes: Extraocular Movements: Extraocular movements intact. Conjunctiva/sclera: Conjunctivae normal. Pupils: Pupils are equal, round, and reactive to light. Cardiovascular: Rate and Rhythm: Normal rate and regular rhythm. Heart sounds: No murmur heard. Pulmonary: Effort: No respiratory distress. Breath sounds: No wheezing, rhonchi or rales. Musculoskeletal: Cervical back: Neck supple. Lymphadenopathy: Cervical: No cervical adenopathy. Neurological: Mental Status: She is alert. {ASSESSMENT/PLAN: 1. Otalgia, left ear - ICD9: 388.70, ICD10: H92.02 (primary diagnosis) No overt abnormality identified. She has some discomfort with manipulation at the meatus and subjective pruritus. Treat possible otitis media with an antibiotic and steroid combo drop. - [id number] 3.5 MG-10,000 UNIT/ML-1 % EAR DROPS,SUSP Follow-up with worsening or failure to improve. 2. Sore throat - ICD9: 462, ICD10: J02.9 - STREP A MOLECULAR (POC) - negative. - suspect viral URI - Supportive care treatment with rest, cold medicine, and analgesia. Surjit Ordonez MD Differential Diagnoses - Otitis externa (mechanical, dermatitis, infectious) - Eustachian tube dysfunction - Viral URI x 5 days is more likely for the following reason(s): suggested by HANDP - Streptococcal pharyngitis is less likely for the following reason(s): laboratory studies not suggestive Procedures [facility] 01-08-2025 History of Present illness Narrative Chief Complaint Patient presents with Post-op Visit 2 wk post op 12/27 hysteroscopy D&C HPI No pain No bleeding ROS: Constitutional - denies fevers or chills Resp - denies CP or SOB CV - denies CP GI - denies nausea, vomiting - denies frequency and dysuria Medical History[1] Surgical History[2] Allergies[3] @MEDCMED@ BP 126/76 Ht 1.626 m (5' 4) Wt (!) 142 kg (313 lb) LMP 12/09/2024 (Within Days) BMI 53.73 kg/m PE: Well developed, well nourished Normocephalic, atraumatic CV - normal rate Resp - normal effort Abd - soft, ND MS - no edema Neuro - Pt A&Ox3, NAD Skin - warn and dry Psych - normal affect and behavior Josse was seen today for post-op visit. Diagnoses and all orders for this visit: Abnormal uterine bleeding (AUB) (Primary) Other orders - progesterone (Prometrium) 200 MG capsule; Take 1 capsule (200 mg) by mouth daily. Follow up for annual. Discussed OCP Path normal Stop all meds and start to conceive Discussed low risk of [1] Past Medical History: Diagnosis Date Anxiety Depression Epilepsia (HCC) GERD (gastroesophageal reflux disease) PCOS (polycystic ovarian syndrome) PTSD (post-traumatic stress disorder) Sleep apnea does not wear cpap [2] Past Surgical History: Procedure Laterality Date BRAIN SURGERY 1997 treatment of epilepsy DILATION AND CURETTAGE (HISTORICAL) 12/27/[address] [facility] [address] Munoz DILATION AND CURETTAGE OF UTERUS 03/08/2024 HYSTEROSCOPY 03/08/2024 [3] Allergies Allergen Reactions Hydralazine Hydroxyzine Other Causes mental changes Phenobarbital Rash Other reaction(s): Other (See Comments), Unknown Propanediol Rash Propranolol Rash documented in this encounter [facility] [employer] 01-02-2025 Note HNO ID: [id number] Author: ZIYAD HARRELL MD Service: ? Author Type: Physician Type: Progress Notes Filed: 01/04/2025 06:23 Note Text: Endocrinology and Metabolism [place] Follow up visit REASON FOR CONSULT: Evaluation of ovarian hyperandrogenism REQUESTING PHYSICIAN: Yessi Munoz MD HPI Josse Flynnpaula is a 39 year old female presenting for follow up evaluation of ovarian hyperandrogenism. Initial visit 06/03/2024 - Menarche at age 13, [...] is working on right now Interval history: 01/03/25: Due to elevated 17 OHP, ACTH stim test for NCCAH was done She reports no new symptoms - she is seeing OBGYN outside [facility] and reports undergoing Hysteroscopy with [facility], and is concerned about the results PAST MEDICAL HISTORY: PAST MEDICAL HISTORY Diagnosis [...] Atarax [Hydroxyzine] Mental Status Change Causes mental ch (more content not included)... [facility] 12-27-2024 Note Patient: Josse Morrow Procedure Summary Date: 12/27/24 Room / Location: [address] Operating Room Anesthesia Start: 1358 Anesthesia Stop: 1424 Procedure: HYSTEROSCOPY DILATION AND CURETTAGE Diagnosis: Endometrial hyperplasia, unspecified Surgeons: Yessi Munoz MD Responsible Provider: FRANCO Teresa CRNA Anesthesia Type: general ASA Status: 4 Anesthesia Type: general Vitals Value Taken Time BP 124/82 12/27/24 14:25 Temp 36.1 ?C (97 ?F) 12/27/24 14:24 Pulse 80 12/27/24 14:25 Resp 15 12/27/24 14:25 SpO2 96 % 12/27/24 14:25 Vitals shown include unfiled device data. Anesthesia Post Evaluation Patient location during evaluation: PACU Patient participation: complete - patient cannot participate Level of consciousness: alert and awake Pain management: satisfactory to patient Airway patency: patent Dental Injury: no Cardiovascular status: acceptable, blood pressure returned to baseline and hemodynamically stable Respiratory status: acceptable and spontaneous ventilation Hydration status: euvolemic Nausea/Vomiting: controlled No notable events documented. Patient can be discharged once all PACU criteria has been met. [facility] 12-27-2024 Note Patient: Josse Morrow Procedure Summary Date: 12/27/24 Room / Location: [address] Operating Room Anesthesia Start: 8 Anesthesia Stop: 1424 Procedure: HYSTEROSCOPY DILATION AND CURETTAGE Diagnosis: Endometrial hyperplasia, unspecified Surgeons: Yessi Munoz MD Responsible Provider: FRANCO Teresa CRNA Anesthesia Type: general ASA Status: 4 Anesthesia Type: general Vitals Value Taken Time BP 124/82 12/27/24 14:25 Temp 36.1 ?C (97 ?F) 12/27/24 14:24 Pulse 80 12/27/24 14:25 Resp 15 12/27/24 14:25 SpO2 96 % 12/27/24 14:25 Vitals shown include unfiled device data. Anesthesia Post Evaluation Patient participation: complete - patient participated Level of consciousness: alert and awake Pain management: satisfactory to patient Multimodal analgesia pain management approach Airway patency: patent Two or more strategies used to mitigate risk of obstructive sleep apnea Respiratory status: acceptable Cardiovascular status: acceptable Hydration status: acceptable No notable events documented. MIPS #[id number] PONV Patient received an inhalational anesthetic (4554F) Patient exhibits three or more risk factors for PONV (4556F) Patient received at leaset 2 prophylactic Rx PONV anti-emtic agents of different classes preop and/or intraop (G9775) MIPS # 424 Perioperative Temperature Management Anesthesia time was less than 60 minutes (4256F) MIPS #477 Multimodal Pain Management Not emergent case Patient was administered multimodal pain management (two or more drugs and/or interventions excluding systemic opioids) in the periopeartive period occurring at some time between 6 hours prior to anesthesia start time until discharged from PACU (G2148) MIPS #404 Anesthesiology Smoking Abstinence The patient [...] opportunity for questions and acknowledgement of understanding. [facility] 12-27-2024 Note Airway Date/Time: 12/27/2024 2:03 PM Reason: scheduled Airway not difficult General Information and Staff Patient location during procedure: Procedural Resident/THEATRICAL PERFORMER: Charles Mata APRN - THEATRICAL PERFORMER Performed: THEATRICAL PERFORMER Patient Condition Indications for airway management: anesthesia Patient position: sniffing Sedation level: Asleep Final Airway Details Preoxygenated: yes Final airway type: supraglottic airway Successful airway: Igel Size: 4 Number of attempts at approach: 1 [facility] 12-27-2024 Attending History and physical note H&P reviewed. The patient was examined and there are no changes to the H&P. Source Note - Rafia Caceres PA-C - 12/20/2024 3:00 PM EDT Images from the original note were not included. Comprehensive Pre Surgical History and Physical ? Name: Josse Wayne : 1985 (Age-39 y.o.) Date of Service: Pt seen/examined on 12/20/2024 Procedure Information Date/Time: 12/27/24 1400 Procedure: HYSTEROSCOPY DILATION AND CURETTAGE - 60 MINUTES Location: [address] Operating Room Surgeons: Yessi Munoz MD Chief Complaint: Endometrial hyperplasia ASSESSMENT/PLAN: Plan based on PAT protocol for this intermediate level 1 risk procedure/surgery. Based on the below evaluation, the benefits of the planned procedure likely exceed the risks. The patient is medically optimized to proceed with the planned procedure without any further cardiopulmonary testing. 1) Endometrial hyperplasia, unspecified [N85.00] - Managed per surgery - Orders per PAT Protocol: EKG, a1c 2) Anxiety Depression Bipolar disorder MEDS: gillian reid Follows with PCP at [place] 3) RON Not Compliant with CPAP - never received it I would consider higher level of care (continuous pulse ox) with this patient due to RON and increased risks 4) Obesity BMI 53 No results found for: HGBA1C - Results pending 5) Hx Seizures Last occurred 2012 Per records in 1997 she had a partial lobotomy for epilepsy MEDS: keppra Follows with neuro EKG: Encounter Date: 12/20/24 ECG 12 lead Result Value Heart Rate 83 QRSD Interval 94 QT Interval 366 QTC Interval 430 P Derwood 18 QRS Derwood 30 T Wave Derwood 33 SD Interval 164 Impression Sinus rhythm Abnormal inferior Q waves ECHO and EF:None on file Pacer/Defib: No METS: >4 METS (Able to climb a flight of stairs with no chest pain or shortness of breath): Yes CLEARANCES: No Visit Type: Pre-Admission Testing Visit Labs Ordered: YES - PER PAT PROTOCOL - results pending at time of chart closure Sleep Referral Ordered: NO - ALREADY DIAGNOSED WITH RON AND PATIENT IS NOT COMPLIANT WITH CPAP Total time spent (which include face to face and non face to face encounters) : 45 minutes Toxic drug monitoring/narrow therapeutic index drug monitoring : # Drug name : n/a # Route administered : n/a # Method of monitoring : n/a PAT Protocol referenced includes: 1. Anesthesia Lab Protocol Orders 2. Perioperative Cardiovascular Risk Assessment 3. Anesthesia Assessment 4. Pain Assessment and Acute Pain Service Consult (if appropriate) 5. Shower/Wash Order (for designated surgeries) 6. RON Screen and Sleep Clinic Referral (if appropriate) History Of Present Illness: 39 y.o. female who we are asked to see/evaluate by surgeon for pre-operative evaluation prior to Procedure Information Date/Time: 12/27/241399 Procedure: HYSTEROSCOPY DILATION AND CURETTAGE - 60 MINUTES Location: [address] Operating Room Surgeons: Yessi Munoz MD Per surgeon's office visit note: Pt with hx endometrial hyperplasia Last surgery on 03/08 On and off bleeding- heavy Lower pelvic pain Has seen endocrine Taking estrogen but stopped Taking megace Pt has seen the surgeon and elected for above procedure. Patient denies fever, exertional chest pain, shortness of breath, vomiting, rash Denies Hx of HTN, DM, Asthma/COPD, CAD, AR, stents, CHF, a fib, TIA/CVA, DVT/PE Hx problems with anesthesia? - no Current Medications[1] Past Medical History: Past Medical History: No date: Anxiety No date: Depression No date: Epilepsia (HCC) No date: GERD (gastroesophageal reflux disease) No date: PCOS (polycystic ovarian syndrome) No date: PTSD (post-traumatic stress disorder) No date: Sleep apnea Comment: does not wear cpap Past Surgical History: Past Surgical History: 1997: BRAIN SURGERY Comment: treatment of epilepsy 03/08/2024: DILATION AND CURETTAGE OF UTERUS 03/08/2024: HYSTEROSCOPY Medications Prior to Admission: Prior to Admission medications Medication Sig Start Date End Date Taking? Authorizing Provider megestrol (Megace) 20 MG tablet Take 1 tablet (20 mg total) by mouth 2 times daily. 03/25/24 03/25/25 Yes Yessi Munoz MD ALPRAZolam (Xanax) 1 MG tablet Take 1 mg by mouth daily. In the afternoon 06/17/22 Historical Provider, ALPRAZolam (Xanax) 2 MG tablet alprazolam 2 mg tablet TAKE 1 TABLET BY MOUTH TWICE DAILY Historical Provider, citalopram (CeleXA) 10 MG tablet Take 1 tablet (10 mg) by mouth 2 times daily. 06/15/24 Benjamin Morales MD levETIRAcetam (Keppra) 1000 MG tablet Take 1 tablet (1,000 mg) by mouth 2 times daily. 05/07/24 Demetrius Robertson APRN - WIRE TRANSFER CLERK CHRONIC NARCOTIC USAGE: No Allergies: Hydralazine, Hydroxyzine, Phenobarbital, Propanediol, and Propranolol Is it okay to take Acetaminophen: Yes Social History: TOBACCO: reports that she has never smoked. She has never used smokeless tobacco. ETOH: reports current alcohol use. Social History Substance and Sexual Activity Drug Use Never Family History: Family History[2] REVIEW OF SYSTEMS: Review of Systems Constitutional: Negative for chills and fever. HENT: Negative for trouble swallowing. Respiratory: Negative for cough and shortness of breath. Cardiovascular: Negative for chest pain and palpitations. Gastrointestinal: Negative for abdominal pain and vomiting. Skin: Negative for rash. Neurological: Negative for speech difficulty. Psychiatric/Behavioral: Negative for agitation. Physical Exam: Physical Exam Constitutional: General: She is awake. She is not in acute distress. Appearance: Normal appearance. She is obese. HENT: Head: Normocephalic and atraumatic. Eyes: Extraocular Movements: Extraocular movements intact. Conjunctiva/sclera: Conjunctivae normal. Cardiovascular: Rate and Rhythm: Normal rate and regular rhythm. Heart sounds: Normal heart sounds. Pulmonary: Effort: Pulmonary effort is normal. Breath sounds: Normal breath sounds. Abdominal: Palpations: Abdomen is soft. Musculoskeletal: General: Normal range of motion. Cervical back: Normal range of motion. Skin: General: Skin is warm and dry. Neurological: General: No focal deficit present. Mental Status: She is alert and oriented to person, place, and time. Psychiatric: Mood and Affect: Mood normal. Behavior: Behavior normal. Vitals: Vitals Value Taken Time BP 139/92 12/20/24 14:57 Temp 36.6 C (97.9 F) 12/20/24 14:57 Pulse 96 12/20/24 14:57 Resp 15 12/20/24 14:57 SpO2 99 % 12/20/24 14:57 Labs: Lab Results Component Value Date WBC 4.0 06/13/2024 HGB 13.9 06/13/2024 HCT 40.9 06/13/2024 MCV 82.1 06/13/2024 PLT 291 06/13/2024 Lab Results Component Value Date NA 140 06/13/2024 K 3.6 06/13/2024 CL 110 (H) 06/13/2024 CO2 18 (L) 06/13/2024 BUN 8 06/13/2024 CREATININE 0.84 06/13/2024 GLUCOSE 138 (H) 06/13/2024 CALCIUM 9.1 06/13/2024 PROT 7.1 06/13/2024 ALKPHOS 61 06/13/2024 AST 57 (H) 06/13/2024 ALT 60 (H) 06/13/2024 EGFR >90.0 06/13/2024 PAT Pain Score: Pain Score: 0 - No pain Postop Pain Management Plan (Pain consult ordered?): Pain consult not indicated at this time ? Electronically signed by: Rafia Caceres PA-C Date: 12/20/2024 at 3:35 PM [1] Current Outpatient Medications: megestrol (Megace) 20 MG tablet, Take 1 tablet (20 mg total) by mouth 2 times daily., Disp: 60 tablet, Rfl: 11 ALPRAZolam (Xanax) 1 MG tablet, Take 1 mg by mouth daily. In the afternoon, Disp: , Rfl: ALPRAZolam (Xanax) 2 MG tablet, alprazolam 2 mg tablet TAKE 1 TABLET BY MOUTH TWICE DAILY, Disp: , Rfl: citalopram (CeleXA) 10 MG tablet, Take 1 tablet (10 mg) by mouth 2 times daily., Disp: 60 tablet, Rfl: 1 levETIRAcetam (Keppra) 1000 MG tablet, Take 1 tablet (1,000 mg) by mouth 2 times daily., Disp: 60 tablet, Rfl: 11 [2] Family History Problem Relation Name Age of Onset Heart attack Maternal Grandfather Cosigned by Koko Moore DO at 12/21/2024 12:56 PM EDT [facility] 12-27-2024 Note H&P reviewed. The ervin meyers was examined and there are no changes to the H&P. [facility] 12-27-2024 History and physical note H&P reviewed. The patient was examined and there are no changes to the H&P. Source Note - Rafia Caceres PA-C - 12/20/2024 3:00 PM EDT Images from the original note were not included. Comprehensive Pre Surgical History and Physical ? Name: Josse Wayne : 1985 (Age-39 y.o.) Date of Service: Pt seen/examined on 12/20/2024 Procedure Information Date/Time: 12/27/24 1400 Procedure: HYSTEROSCOPY DILATION AND CURETTAGE - 60 MINUTES Location: [address] Operating Room Surgeons: Yessi Munoz MD Chief Complaint: Endometrial hyperplasia ASSESSMENT/PLAN: Plan based on PAT protocol for this intermediate level 1 risk procedure/surgery. Based on the below evaluation, the benefits of the planned procedure likely exceed the risks. The patient is medically optimized to proceed with the planned procedure without any further cardiopulmonary testing. 1) Endometrial hyperplasia, unspecified [N85.00] - Managed per surgery - Orders per PAT Protocol: EKG, a1c 2) Anxiety Depression Bipolar disorder MEDS: celexa, xanax Follows with PCP at [place] 3) RON Not Compliant with CPAP - never received it I would consider higher level of care (continuous pulse ox) with this patient due to RON and increased risks 4) Obesity BMI 53 No results found for: HGBA1C - Results pending 5) Hx Seizures Last occurred 2012 Per records in 1997 she had a partial lobotomy for epilepsy MEDS: reese Follows with neuro EKG: Encounter Date: 12/20/24 ECG 12 lead Result Value Heart Rate 83 QRSD Interval 94 QT Interval 366 QTC Interval 430 P Derwood 18 QRS Derwood 30 T Wave Derwood 33 SD Interval 164 Impression Sinus rhythm Abnormal inferior Q waves ECHO and EF:None on file Pacer/Defib: No METS: >4 METS (Able to climb a flight of stairs with no chest pain or shortness of breath): Yes CLEARANCES: No Visit Type: Pre-Admission Testing Visit Labs Ordered: YES - PER PAT PROTOCOL - results pending at time of chart closure Sleep Referral Ordered: NO - ALREADY DIAGNOSED WITH RON AND PATIENT IS NOT COMPLIANT WITH CPAP Total time spent (which include face to face and non face to face encounters) : 45 minutes Toxic drug monitoring/narrow therapeutic index drug monitoring : # Drug name : n/a # Route administered : n/a # Method of monitoring : n/a PAT Protocol referenced includes: 1. Anesthesia Lab Protocol Orders 2. Perioperative Cardiovascular Risk Assessment 3. Anesthesia Assessment 4. Pain Assessment and Acute Pain Service Consult (if appropriate) 5. Shower/Wash Order (for designated surgeries) 6. RON Screen and Sleep Clinic Referral (if appropriate) History Of Present Illness: 39 y.o. female who we are asked to see/evaluate by surgeon for pre-operative evaluation prior to Procedure Information Date/Time: 12/27/24 1400 Procedure: HYSTEROSCOPY DILATION AND CURETTAGE - 60 MINUTES Location: [address] Operating Room Surgeons: Yessi Munoz MD Per surgeon's office visit note: Pt with hx endometrial hyperplasia Last surgery on 03/08 On and off bleeding- heavy Lower pelvic pain Has seen endocrine Taking estrogen but stopped Taking megace Pt has seen the surgeon and elected for above procedure. Patient denies fever, exertional chest pain, shortness of breath, vomiting, rash Denies Hx of HTN, DM, Asthma/COPD, CAD, AR, stents, CHF, a fib, TIA/CVA, DVT/PE Hx problems with anesthesia? - no Current Medications[1] Past Medical History: Past Medical History: No date: Anxiety No date: Depression No date: Epilepsia (HCC) No date: GERD (gastroesophageal reflux disease) No date: PCOS (polycystic ovarian syndrome) No date: PTSD (post-traumatic stress disorder) No date: Sleep apnea Comment: does not wear cpap Past Surgical History: Past Surgical History: 1998: BRAIN SURGERY Comment: treatment of epilepsy 03/08/2024: DILATION AND CURETTAGE OF UTERUS 03/08/2024: HYSTEROSCOPY Medications Prior to Admission: Prior to Admission medications Medication Sig Start Date End Date Taking? Authorizing Provider megestrol (Megace) 20 MG tablet Take 1 tablet (20 mg total) by mouth 2 times daily. 03/25/24 03/25/25 Yes Yessi Munoz MD ALPRAZolam (Xanax) 1 MG tablet Take 1 mg by mouth daily. In the afternoon 06/17/22 Historical Provider, ALPRAZolam (Xanax) 2 MG tablet alprazolam 2 mg tablet TAKE 1 TABLET BY MOUTH TWICE DAILY Historical Provider, citalopram (CeleXA) 10 MG tablet Take 1 tablet (10 mg) by mouth 2 times daily. 06/15/24 Benjamin Morales MD levETIRAcetam (Keppra) 1000 MG tablet Take 1 tablet (1,000 mg) by mouth 2 times daily. 05/07/24 Demetrius Robertson APRN - WIRE TRANSFER CLERK CHRONIC NARCOTIC USAGE: No Allergies: Hydralazine, Hydroxyzine, Phenobarbital, Propanediol, and Propranolol Is it okay to take Acetaminophen: Yes Social History: TOBACCO: reports that she has never smoked. She has never used smokeless tobacco. ETOH: reports current alcohol use. Social History Substance and Sexual Activity Drug Use Never Family History: Family History[2] REVIEW OF SYSTEMS: Review of Systems Constitutional: Negative for chills and fever. HENT: Negative for trouble swallowing. Respiratory: Negative for cough and shortness of breath. Cardiovascular: Negative for chest pain and palpitations. Gastrointestinal: Negative for abdominal pain and vomiting. Skin: Negative for rash. Neurological: Negative for speech difficulty. Psychiatric/Behavioral: Negative for agitation. Physical Exam: Physical Exam Constitutional: General: She is awake. She is not in acute distress. Appearance: Normal appearance. She is obese. HENT: Head: Normocephalic and atraumatic. Eyes: Extraocular Movements: Extraocular movements intact. Conjunctiva/sclera: Conjunctivae normal. Cardiovascular: Rate and Rhythm: Normal rate and regular rhythm. Heart sounds: Normal heart sounds. Pulmonary: Effort: Pulmonary effort is normal. Breath sounds: Normal breath sounds. Abdominal: Palpations: Abdomen is soft. Musculoskeletal: General: Normal range of motion. Cervical back: Normal range of motion. Skin: General: Skin is warm and dry. Neurological: General: No focal deficit present. Mental Status: She is alert and oriented to person, place, and time. Psychiatric: Mood and Affect: Mood normal. Behavior: Behavior normal. Vitals: Vitals Value Taken Time BP 139/92 12/20/24 14:57 Temp 36.6 C (97.9 F) 12/20/24 14:57 Pulse 96 12/20/24 14:57 Resp 15 12/20/24 14:57 SpO2 99 % 12/20/24 14:57 Labs: Lab Results Component Value Date WBC 4.0 06/13/2024 HGB 13.9 06/13/2024 HCT 40.9 06/13/2024 MCV 82.1 06/13/2024 PLT 291 06/13/2024 Lab Results Component Value Date NA 140 06/13/2024 K 3.6 06/13/2024 CL 110 (H) 06/13/2024 CO2 18 (L) 06/13/2024 BUN 8 06/13/2024 CREATININE 0.84 06/13/2024 GLUCOSE 138 (H) 06/13/2024 CALCIUM 9.1 06/13/2024 PROT 7.1 06/13/2024 ALKPHOS 61 06/13/2024 AST 57 (H) 06/13/2024 ALT 60 (H) 06/13/2024 EGFR >90.0 06/13/2024 PAT Pain Score: Pain Score: 0 - No pain Postop Pain Management Plan (Pain consult ordered?): Pain consult not indicated at this time ? Electronically signed by: Rafia Caceres PA-C Date: 12/20/2024 at 3:35 PM [1] Current Outpatient Medications: megestrol (Megace) 20 MG tablet, Take 1 tablet (20 mg total) by mouth 2 times daily., Disp: 60 tablet, Rfl: 11 ALPRAZolam (Xanax) 1 MG tablet, Take 1 mg by mouth daily. In the afternoon, Disp: , Rfl: ALPRAZolam (Xanax) 2 MG tablet, alprazolam 2 mg tablet TAKE 1 TABLET BY MOUTH TWICE DAILY, Disp: , Rfl: citalopram (CeleXA) 10 MG tablet, Take 1 tablet (10 mg) by mouth 2 times daily., Disp: 60 tablet, Rfl: 1 levETIRAcetam (Keppra) 1000 MG tablet, Take 1 tablet (1,000 mg) by mouth 2 times daily., Disp: 60 tablet, Rfl: 11 [2] Family History Problem Relation Name Age of Onset Heart attack Maternal Grandfather Cosigned by Koko Moore DO at 12/21/2024 12:56 PM EDT documented in this encounter [facility] 12-27-2024 Nurse Note Patient educated on importance of coughing/ deep breathing after surgery to reduce risk of pneumonia. Patient educated on importance of early mobility to reduce the risk of blood clots. Falls prevention information reviewed with patient. Post-operative pain control and ways to prevent constipation discussed with patient. [facility] 12-27-2024 Miscellaneous Notes Patient educated on importance of coughing/ deep breathing after surgery to reduce risk of pneumonia. Patient educated on importance of early mobility to reduce the risk of blood clots. Falls prevention information reviewed with patient. Post-operative pain control and ways to prevent constipation discussed with patient. documented in this encounter [facility] 12-26-2024 Note Pt has surgery tomor row with dr Sanchez and called in asking if she should continue with the procedure because she is bleeding/having brown discharge. Please advise. [facility] 12-26-2024 Telephone encounter Note Pt has surgery tomorrow with dr Sanchez and called in asking if she should continue with the procedure because she is bleeding/having brown discharge. Please advise. [facility] 12-26-2024 Miscellaneous Notes Pt has surgery tomorrow with dr Sanchez and called in asking if she should continue with the procedure because she is bleeding/having brown discharge. Please advise. Pt does not have MyChart. Placed surgery information in mail. 12/09/24. Called pt in regards to surgery scheduling and call then ended. Tried calling pt back and would not ring. Will attempt to call later. documented in this encounter [facility] 12-20-2024 Note Patient: Josse Morrow Procedure Information Date/Time: 12/27/24 1400 Procedure: HYSTEROSCOPY DILATION AND CURETTAGE - 60 MINUTES Location: [address] Operating Room Surgeons: Yessi Munoz MD Relevant Problems Anesthesia (+) RON (obstructive sleep apnea) /Renal (+) Abnormal uterine and vaginal bleeding, unspecified Neuro/Psych (+) Anxiety disorder, unspecified (+) Depression (+) Localization-related (focal) (partial) idiopathic epilepsy and epileptic syndromes with seizures of localized onset, intractable, without status epilepticus (HCC) (+) PTSD (post-traumatic stress disorder) Pulmonary (+) RON (obstructive sleep apnea) Past Medical History: Past Medical History: No date: Anxiety No date: Depression No date: Epilepsia (HCC) No date: GERD (gastroesophageal reflux disease) No date: PCOS (polycystic ovarian syndrome) No date: PTSD (post-traumatic stress disorder) No date: Sleep apnea Comment: does not wear cpap Past Surgical History: Past Surgical History: 1997: BRAIN SURGERY Comment: treatment of epilepsy 03/08/2024: DILATION AND CURETTAGE OF UTERUS 03/08/2024: HYSTEROSCOPY Social History: TOBACCO: reports that she has never smoked. She has never used smokeless tobacco. ETOH: reports current alcohol use. Social History Substance and Sexual Activity Drug Use Never Family History: Family History[1] Screening: Unknown Clinical information reviewed: Tobacco Allergies Meds Med Hx Surg Hx OB Status Fam Hx Soc Hx Physical Exam Airway Mallampati: I TM distance: <3 FB Neck ROM: full Mouth Open: normalendotracheal tube not in place Cardiovascular Dental (+) Missing Comments: Couple back missing teeth none loose, none chipped no partials, no dentures Pulmonary Abdominal Anesthesia Plan Any family history or previous problems with anesthesia no We discussed risks, benefits, alternatives and likelihood of success with the Patient. ASA 4 general Any family history or previous problems with anesthesia nopatient is NPO appropriate RON Screening STOP-Bang Total Score: 4 Labs: Lab Results Component Value Date WBC 4.0 06/13/2024 HGB 13.9 06/13/2024 HCT 40.9 06/13/2024 MCV 82.1 06/13/2024 PLT 291 06/13/2024 Lab Results Component Value Date NA 140 06/13/2024 K 3.6 06/13/2024 CL 110 (H) 06/13/2024 CO2 18 (L) 06/13/2024 BUN 8 06/13/2024 CREATININE 0.84 06/13/2024 GLUCOSE 138 (H) 06/13/2024 CALCIUM 9.1 06/13/2024 PROT 7.1 06/13/2024 ALKPHOS 61 06/13/2024 AST 57 (H) 06/13/2024 ALT 60 (H) 06/13/2024 EGFR >90.0 06/13/2024 Pain Score: 0 - No pain No echocardiogram results found for the past 14 days 12/20/24 ECG 12-LEAD (Preliminary) This result has not been signed. Information might be incomplete. Impression Sinus rhythm Abnormal inferior Q waves Equipment Requests: Additional Equipment Requests [1] Family History Problem Relation Name Age of Onset Heart attack Maternal Grandfather [facility] 12-20-2024 Note Comprehensive Pre Morgan rgical History and Physical ? Name: Josse Wayne : 1985 (Age-39 y.o.) Date of Service: Pt seen/examined on 12/20/2024 Procedure Information Date/Time: 12/27/24 1400 Procedure: HYSTEROSCOPY DILATION AND CURETTAGE - 60 MINUTES Location: [address] Operating Room Surgeons: Yessi Munoz MD Chief Complaint: Endometrial hyperplasia ASSESSMENT/PLAN: Plan based on PAT protocol for this intermediate level 1 risk procedure/surgery. Based on the below evaluation, the benefits of the planned procedure likely exceed the risks. The patient is medically optimized to proceed with the planned procedure without any further cardiopulmonary testing. 1) Endometrial hyperplasia, unspecified [N85.00] - Managed per surgery - Orders per PAT Protocol: EKG, a1c 2) Anxiety Depression Bipolar disorder MEDS: gillian reid Follows with PCP at [place] 3) RON Not Compliant with CPAP - never received it I would consider higher level of care (continuous pulse ox) with this patient due to RON and increased risks 4) Obesity BMI 53 No results found for: HGBA1C - Results pending 5) Hx Seizures Last occurred 2012 Per records in 1997 she had a partial lobotomy for epilepsy MEDS: reese Follows with neuro EKG: Encounter Date: 12/20/24 ECG 12 lead Result Value Heart Rate 83 QRSD Interval 94 QT Interval 366 QTC Interval 430 P Derwood 18 QRS Derwood 30 T Wave Derwood 33 SD Interval 164 Impression Sinus rhythm Abnormal inferior Q waves ECHO and EF:None on file Pacer/Defib: No METS: >4 METS (Able to climb a flight of stairs with no chest pain or shortness of breath): Yes CLEARANCES: No Visit Type: Pre-Admission Testing Visit Labs Ordered: YES - PER PAT PROTOCOL - results pending at time of chart closure Sleep Referral Ordered: NO - ALREADY DIAGNOSED WITH RON AND PATIENT IS NOT COMPLIANT WITH CPAP Total time spent (which include face to face and non face to face encounters) : 45 minutes Toxic drug monitoring/narrow therapeutic index drug monitoring : # Drug name : n/a # Route administered : n/a # Method of monitoring : n/a PAT Protocol referenced includes: 1. Anesthesia Lab Protocol Orders 2. Perioperative Cardiovascular Risk Assessment 3. Anesthesia Assessment 4. Pain Assessment and Acute Pain Service Consult (if appropriate) 5. Shower/Wash Order (for designated surgeries) 6. RON Screen and Sleep Clinic Referral (if appropriate) History Of Present Illness: 39 y.o. female who we are asked to see/evaluate by surgeon for pre-operative evaluation prior to Procedure Information Date/Time: 12/27/24 1400 Procedure: HYSTEROSCOPY DILATION AND CURETTAGE - 60 MINUTES Location: [address] Operating Room Surgeons: Yessi Munoz MD Per surgeon's office visit note: Pt with hx endometrial hyperplasia Last surgery on 03/08 On and off bleeding- heavy Lower pelvic pain Has seen endocrine Taking estrogen but stopped Taking megace Pt has seen the surgeon and elected for above procedure. Patient denies fever, exertional chest pain, shortness of breath, vomiting, rash Denies Hx of HTN, DM, Asthma/COPD, CAD, AR, stents, CHF, a fib, TIA/CVA, DVT/PE Hx problems with anesthesia? - no Current Medications[1] Past Medical History: Past Medical History: No date: Anxiety No date: Depression No date: Epilepsia (HCC) No date: GERD (gastroesophageal reflux disease) No date: PCOS (polycystic ovarian syndrome) No date: PTSD (post-traumatic stress disorder) No date: Sleep apnea Comment: does not wear cpap Past Surgical History: Past Surgical History: 1998: BRAIN SURGERY Comment: treatment of epilepsy 03/08/2024: DILATION AND CURETTAGE OF UTERUS 03/08/2024: HYSTEROSCOPY Medications Prior to Admission: Prior to Admission medications Medication Sig Start Date End Date Taking? Authorizing Provider megestrol (Megace) 20 MG tablet Take 1 tablet (20 mg total) by mouth 2 times daily. 03/25/24 03/25/25 Yes Yessi Munoz MD ALPRAZolam (Xanax) 1 MG tablet Take 1 mg by mouth daily. In the afternoon 06/17/22 Historical Provider, ALPRAZolam (Xanax) 2 MG tablet alprazolam 2 mg tablet TAKE 1 TABLET BY MOUTH TWICE DAILY Historical Provider, citalopram (CeleXA) 10 MG tablet Take 1 tablet (10 mg) by mouth 2 times daily. 06/15/24 Benjamin Morales MD levETIRAcetam (Keppra) 1000 MG tablet Take 1 tablet (1,000 mg) by mouth 2 times daily. 05/07/24 Demetrius Robertson APRN - WIRE TRANSFER CLERK CHRONIC NARCOTIC USAGE: No Allergies: Hydralazine, Hydroxyzine, Phenobarbital, Propanediol, and Propranolol Is it okay to take Acetaminophen: Yes Social History: TOBACCO: reports that she has never smoked. She has never used smokeless tobacco. ETOH: reports current alcohol use. Social History Substance and Se (more content not included)... [facility] 12-20-2024 Note Comprehensive Pre Morgan rgical History and Physical ? Name: Josse Wayne : 1985 (Age-39 y.o.) Date of Service: Pt seen/examined on 12/20/2024 Procedure Information Date/Time: 12/27/24 1400 Procedure: HYSTEROSCOPY DILATION AND CURETTAGE - 60 MINUTES Location: [address] Operating Room Surgeons: Yessi Munoz MD Chief Complaint: Endometrial hyperplasia ASSESSMENT/PLAN: Plan based on PAT protocol for this intermediate level 1 risk procedure/surgery. Based on the below evaluation, the benefits of the planned procedure likely exceed the risks. The patient is medically optimized to proceed with the planned procedure without any further cardiopulmonary testing. 1) Endometrial hyperplasia, unspecified [N85.00] - Managed per surgery - Orders per PAT Protocol: EKG, a1c 2) Anxiety Depression Bipolar disorder MEDS: celexa, xanax Follows with PCP at [place] 3) RON Not Compliant with CPAP - never received it I would consider higher level of care (continuous pulse ox) with this patient due to RON and increased risks 4) Obesity BMI 53 No results found for: HGBA1C - Results pending 5) Hx Seizures Last occurred 2012 Per records in 1997 she had a partial lobotomy for epilepsy MEDS: reese Follows with neuro EKG: Encounter Date: 12/20/24 ECG 12 lead Result Value Heart Rate 83 QRSD Interval 94 QT Interval 366 QTC Interval 430 P Derwood 18 QRS Derwood 30 T Wave Derwood 33 SD Interval 164 Impression Sinus rhythm Abnormal inferior Q waves ECHO and EF:None on file Pacer/Defib: No METS: >4 METS (Able to climb a flight of stairs with no chest pain or shortness of breath): Yes CLEARANCES: No Visit Type: Pre-Admission Testing Visit Labs Ordered: YES - PER PAT PROTOCOL - results pending at time of chart closure Sleep Referral Ordered: NO - ALREADY DIAGNOSED WITH RON AND PATIENT IS NOT COMPLIANT WITH CPAP Total time spent (which include face to face and non face to face encounters) : 45 minutes Toxic drug monitoring/narrow therapeutic index drug monitoring : # Drug name : n/a # Route administered : n/a # Method of monitoring : n/a PAT Protocol referenced includes: 1. Anesthesia Lab Protocol Orders 2. Perioperative Cardiovascular Risk Assessment 3. Anesthesia Assessment 4. Pain Assessment and Acute Pain Service Consult (if appropriate) 5. Shower/Wash Order (for designated surgeries) 6. RON Screen and Sleep Clinic Referral (if appropriate) History Of Present Illness: 39 y.o. female who we are asked to see/evaluate by surgeon for pre-operative evaluation prior to Procedure Information Date/Time: 12/27/24 1400 Procedure: HYSTEROSCOPY DILATION AND CURETTAGE - 60 MINUTES Location: [address] Operating Room Surgeons: Yessi Munoz MD Per surgeon's office visit note: Pt with hx endometrial hyperplasia Last surgery on 03/08 On and off bleeding- heavy Lower pelvic pain Has seen endocrine Taking estrogen but stopped Taking megace Pt has seen the surgeon and elected for above procedure. Patient denies fever, exertional chest pain, shortness of breath, vomiting, rash Denies Hx of HTN, DM, Asthma/COPD, CAD, AR, stents, CHF, a fib, TIA/CVA, DVT/PE Hx problems with anesthesia? - no Current Medications[1] Past Medical History: Past Medical History: No date: Anxiety No date: Depression No date: Epilepsia (HCC) No date: GERD (gastroesophageal reflux disease) No date: PCOS (polycystic ovarian syndrome) No date: PTSD (post-traumatic stress disorder) No date: Sleep apnea Comment: does not wear cpap Past Surgical History: Past Surgical History: 1998: BRAIN SURGERY Comment: treatment of epilepsy 03/08/2024: DILATION AND CURETTAGE OF UTERUS 03/08/2024: HYSTEROSCOPY Medications Prior to Admission: Prior to Admission medications Medication Sig Start Date End Date Taking? Authorizing Provider megestrol (Megace) 20 MG tablet Take 1 tablet (20 mg total) by mouth 2 times daily. 03/25/24 03/25/25 Yes Yessi Munoz MD ALPRAZolam (Xanax) 1 MG tablet Take 1 mg by mouth daily. In the afternoon 06/17/22 Historical Provider, ALPRAZolam (Xanax) 2 MG tablet alprazolam 2 mg tablet TAKE 1 TABLET BY MOUTH TWICE DAILY Historical Provider, citalopram (CeleXA) 10 MG tablet Take 1 tablet (10 mg) by mouth 2 times daily. 06/15/24 Benjamin Morales MD levETIRAcetam (Keppra) 1000 MG tablet Take 1 tablet (1,000 mg) by mouth 2 times daily. 05/07/24 Demetrius Robertson APRN - WIRE TRANSFER CLERK CHRONIC NARCOTIC USAGE: No Allergies: Hydralazine, Hydroxyzine, Phenobarbital, Propanediol, and Propranolol Is it okay to take Acetaminophen: Yes Social History: TOBACCO: reports that she has never smoked. She has never used smokeless tobacco. ETOH: reports current alcohol use. Social History Substance and Se (more content not included)... [facility] 12-09-2024 Telephone encounter Note Pt does not have MyChart. Placed surgery information in mail. 12/09/24. [facility] 12-09-2024 Miscellaneous Notes Pt does not have MyChart. Placed surgery information in mail. 12/09/24. Called pt in regards to surgery scheduling and call then ended. Tried calling pt back and would not ring. Will attempt to call later. documented in this encounter [facility] 12-09-2024 Telephone encounter Note Called pt in regards to surgery scheduling and call then ended. Tried calling pt back and would not ring. Will attempt to call later. [facility] 12-05-2024 History of Present illness Narrative Chief Complaint Patient presents with Follow-up Discuss repeat hysteroscopy D&C for endometrial hyperplasia Last surgery on 03/08 On and off bleeding heavy bleeding Lower pelvic pain HPI Bleeding off and on Has seen endocrine Taking estrogen but stopped Taking megace Having a difficult time with transportation ROS: Constitutional - denies fevers or chills Resp - denies CP or SOB CV - denies CP GI - denies nausea, vomiting - denies frequency and dysuria Medical History[1] Surgical History[2] Allergies[3] @MEDCMED@ BP 128/84 Ht 1.626 m (5' 4) Wt (!) 137 kg (303 lb) LMP (LMP Unknown) BMI 52.01 kg/m PE: Well developed, well nourished Normocephalic, atraumatic CV - normal rate Resp - normal effort Abd - soft, ND MS - no edema Neuro - Pt A&Ox3, NAD Skin - warn and dry Psych - normal affect and behavior Josse was seen today for follow-up. Diagnoses and all orders for this visit: Endometrial hyperplasia (Primary) Stop estrogen Cont megace Schedule D&C Will find trasnportation Follow up for pre op. [1] Past Medical History: Diagnosis Date Anxiety Depression Epilepsia (HCC) GERD (gastroesophageal reflux disease) PCOS (polycystic ovarian syndrome) PTSD (post-traumatic stress disorder) Sleep apnea [2] Past Surgical History: Procedure Laterality Date BRAIN SURGERY 1997 DILATION AND CURETTAGE OF UTERUS 03/08/2024 HYSTEROSCOPY 03/08/2024 [3] Allergies Allergen Reactions Hydralazine Hydroxyzine Other Causes mental changes Phenobarbital Rash Other reaction(s): Other (See Comments), Unknown Propanediol Rash Propranolol Rash documented in this encounter [facility] 12-02-2024 Discharge summary [facility] 12-02-2024 Discharge summary Note Date/Time December 02, 2024 10:09pm [facility] Medical Records Department [address] [place] [address] Emergency Department Summary 12/02/24 MR#: [id number] Acct: [id number] Name: JOSSE WAYNE Rep #:[id number] : 1985 39 From: Dalia Valdes MD PCP: YA Sheridan Status:REG E R Location: ED HPI History of Present Illness Chief Complaint: Anxiety Narrative Narrative: Patient is a 39-year-old female presenting to the emergency department for episodes of anxiety. Patient has a past medical history of hypertension, anxiety, obesity, bipolar disorder, seizures. Patient reports in 1997 she had a partial lobotomy for epilepsy. She is on keppra for epilepsy. She is on xanax for anxiety. States that for about the past 10 years she has had episodes of panic disorder versus anxiety attack that she describes as tingling feeling in all her extremities, flushing and shaking. Also reports that when she has episodes she feels like she cannot breathe. She reports she is conscious during the episodes. She states that they have become more frequent over the past week or so and was concerned about a possible UTI. She denies any recent head traumaor falls. Denies any fevers, neck pain or back pain. Denies any chest pain, shortness of breath, abdominal pain, nausea, vomiting, diarrhea at time of evaluation. Denies any focal numbness or weakness, speech deficit, visual changes, new onset headache. States she tried to go to urgent care to have her urine tested but they were all closed. 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 Intentional overdose of nonsteroidal anti-inflammatory drug (NSAID) Intentional aspirin overdose Depression with suicidal ideation Personality, multiple Epilepsy PTSD (post-traumatic stress disorder) Anxiety and depression Home Medications ?Medication ?Instructions ?Recorded ?Last Taken ?Type alprazolam 2 mg tablet (Xanax) 2 mg PO BID anxiety 09/22/23 History alprazolam 1 mg tablet (Xanax) 1 mg PO QHS anxiety 11/0109/21/23 History citalopram 20 mg tablet (Celexa) 20 mg PO DAILY depres collette 10/18/21 09/22/23 History citalopram 10 mg tablet 10 mg PO Q24H DEPRESSION 09/22/23 History levetiracetam 1,000 mg tablet 1,000 mg PO BID SEIZURES 02/06/23 09/22/23 History amoxicillin 875 mg tablet 875 mg PO BID #20 tabs 11/04 Unknown Rx Allergy/AdvReac Type Severity Reaction Status Date / Time phenobarbital Allergy Unknown Verified 12/02/24 19:40 propranolol Allergy Rash Verified 12/02/24 19:40 hydralazine AdvReac Mild confusion Verified 12/02/24 19:40 Family History Mother Heart disease Surgical History H/O dilation and curettage History of hysteroscopy partial labotomy Social History Smoking Status: Never smoker alcohol intake: current details: social substance use type: does not use caffeine: Yes what type of physical activity do you participate in: none seatbelt use: always do you feel safe at home: No additional social history: single-unemployed ROS ROS ED ROS Narrative See HPI EXAM Physical Exam Narrative Exam Narrative: Vital signs: Reviewed General: Alert and orientedx3. No acute distress. Well appearing. Obese. HEENT: Head is normocephalic and atraumatic, sinuses nontender, pupils equal round and reactive. Nares are patent. Oropharynx and throat exams normal. Neck: Supple without lymphadenopathy nontender Cardiovascular: Regular rate and rhythm, no murmurs. No rubs or gallops. Normal S1 and S2 Respiratory: Clear to auscultation bilaterally. No wheezes, rales, rhonchi Abdominal: Soft and nontender. Normal bowel sounds. No guarding or rebound. Nonsurgical abdomen Extremities: No tenderness. No bruising. Normal range of motion. Normal sensation. Skin: No rash or redness. Neurological: Cranial nerves II through XII are grossly intact. Normal strengthand sensation. Normal cerebellar function The rest of the physical exam is unremarkable Const Vital Signs: 12/02/24 19:38 Temperature 98.2 F Temperature Source Oral Pulse Rate 102 H Respiratory Rate 18 Blood Pressure 161/97 H Blood Pressure Mean 118 Pulse Ox 97 Oxygen Delivery Method Room Air MDM MDM MDM Narrative Medical decision making narrative: Patient is a 39-year-old female presenting to the emergency department for episodes of reported anxiety. Patient was seen and examined. Vitals are stable. Patient resting comfortably in no acute distress. Differential includes but is not limited to: UTI, thyroid disturbance, electrolyte disturbance less likely seizures Patient reports that she is conscious through the whole episode, I do not think these are seizure-like. CBC with no leukocytosis and a normal hemoglobin. BMP with no significant abnormalities. TSH and magnesium within normal limits. Urinalysis with no evidence of infection. Urine negative. EKG shows normal sinus rhythm with no ischemic changes. No dysrhythmia. Patient updated on the negative workup. I recommended that she follow-up with her primary care doctor to discuss the episodes. She states she has had them for years and is onXanax for anxiety already. Patient discharged from the Emergency Department. I do not feel that the patient's evaluation reveals any acute reason for admissionat this time. I instructed them to either follow-up with their primary care physician or promptly return to the Emergency Department for reevaluation shouldsymptoms worsen or new symptoms develop. I explained what symptoms would indicate the need to return to the emergency department. Shared decision making was used. The patient voiced understanding of the treatment plan and is agreeable with it. Clinical impression: Anxiety History & Record Review Discussion w/independent historian: Patient Lab Data Attestation: I reviewed the patient's lab results. Labs: Laboratory Results - last 24 hr 12/02/24 20:40 WBC 7.9 RBC 4.81 Hgb 13.8 Hct 40.9 MCV 85.0 MCH 28.7 MCHC 33.7 RDW Std Deviation 37.8 RDW Coeff of Thomas 12.2 Plt Count 279 MPV 9.5 Immature Gran % (Auto) 0.400 Neut % (Auto) 80.3 H Lymph % (Auto) 15.9 L Garland % (Auto) 3.1 Eos % (Auto) 0.0 Baso % (Auto) 0.3 Absolute Neuts (auto) 6.3 Absolute Lymphs (auto) 1.25 Nucleated RBC % 0 Sodium 136 Potassium 3.8 Chloride 102 Carbon Dioxide 20.8 L Anion Gap 13 BUN 9 Creatinine 0.69 L Estim Creat Clear Calc 150.06 Est GFR (MDRD) Non-Af 112 BUN/Creatinine Ratio 13.5 Glucose 119 H Calcium 9.4 Magnesium 1.9 TSH 1.150 Urine Color Yellow Urine Clarity Clear Urine pH 7.0 Ur Specific Shorter 1.010 Urine Protein 15 H Urine Glucose (UA) Normal Urine Ketones 15 H Urine Occult Blood Negative Urine Nitrite Negative Urine Bilirubin Negative Urine Urobilinogen Normal Ur Leukocyte Esterase Negative Urine RBC 0 SEEN Urine WBC 0 SEEN Ur Squamous Epith Cells 0-5 SEEN Urine Bacteria 0 SEEN Urine Mucus 0 SEEN Urine Test Negative Discharge Plan Triage Chief Complaint: Anxiety Other Complaint: Seizure ED Provider: Dalia Valdes Dx/Rx/DC Orders Clinical Impression: Anxiety Instructions: Anxiety Disorders Tx, ED Panic Attack Prescriptions: No Action amoxicillin 875 mg tablet 875 mg PO BID Qty: 20 0RF alprazolam [Xanax] 2 mg Tablet 2 mg PO BID alprazolam [Xanax] 1 mg Tablet 1 mg PO QHS citalopram [Celexa] 20 mg Tablet 20 mg PO DAILY citalopram 10 mg tablet 10 mg PO Q24H Patient Comments: TAKE 1 TABLET BY MOUTH EVERY DAY levetiracetam 1,000 mg tablet 1,000 mg PO BID Patient Comments: TAKE 1 TABLET BY MOUTH TWICE DAILY Primary Care Provider: Rafia Bianchi Referrals: Rafia Bianchi, [employer]DER-[employer] [Primary Care Provider, Family Practice] - As soon as possible Activity Restrictions/Additional Instructions: Your evaluation in the Emergency Department did not reveal any acute reason for admission. However, I want to emphasize that you may be early in the course of adisease process or illness even if it is not present. For this reason you shouldfollow-up within 24 hours for reevaluation with either your primary care physician or if necessary back here in the Emergency Department. You should return to the Emergency Department immediately if your symptoms worsen or new symptoms develop. Print Language: Afghan Disposition Disposition: Home, Self Care What to do if you have Problems For any increased pain, shortness of breath, bleeding, nausea or vomiting, chestpain, or any unexpected problems, contact your Primary Care Provider. Call [facility] ([phone]) or report to the closest Emergency Room. Call 911 if necessary. 12/02/242208 <Electronically signed by Dalia Valdes MD> Cosigner Signature (if applicable): CC: YA Bianchi ~ Signed [facility] Work Phone: [phone] Telephone encounter Note* Telephone Encounter - Angella Akbar MA - 11/20/2024 2:30 PM EDT Yes, patient needing appointment to discuss, LVM already done [id number] Miscellaneous Notes* Telephone Encounter - Angella Akbar MA - 11/20/2024 2:30 PM EDT Yes, patient needing appointment to discuss, LVM already done * Telephone Encounter - Ghada Fairchild - 11/20/2024 2:20 PM EDT Called and LVM for pt to call office back to get surgery consult appt scheduled with dr munoz. * Telephone Encounter - Esteban Leyva LPN - 11/20/2024 9:10 AM EDT Pt calling to scheduled surgery and has not heard back and wondering when she can get this scheduled Please advise * Telephone Encounter - Ghada Fairchild - 11/14/2024 7:[address] Sanchez want to have an appt with her before rescheduling? * Telephone Encounter - Angelica Maldonado - 11/12/2024 2:21 PM EDT Name of Caller: Kristin Contact Reason for Appointment: Patient is calling back to reschedule Surgery. Please call her back to discuss. Thank you. Office Name: ObGyn Medication Refills need, if any: No Medication Name: N/A documented in this [facility]SM[facility] [id number] Telephone encounter Note* Telephone Encounter - Ghada Fairchild - 11/20/2024 2:20 PM EDT Called and LVM for pt to call office back to get surgery consult appt scheduled with dr munoz. [id number] Telephone encounter Note* Telephone Encounter - Esteban Leyva LPN - 11/20/2024 9:10 AM EDT Pt calling to scheduled surgery and has not heard back and wondering when she can get this scheduled Please advise [id number] Telephone encounter Note* Telephone Encounter - Ghada Fairchild - 11/14/2024 7:[address] Sanchez want to have an appt with her before rescheduling? [id number] Miscellaneous Notes* Telephone Encounter - Ghada Fairchild - 11/14/2024 7:[address] Sanchez want to have an appt with her before rescheduling? * Telephone Encounter - Angelica Maldonado - 11/12/2024 2:21 PM EDT Name of Caller: Kristin Contact Reason for Appointment: Patient is calling back to reschedule Surgery. Please call her back to discuss. Thank you. Office Name: ObGyn Medication Refills need, if any: No Medication Name: N/A documented in this encounterSM[facility] [id number] Telephone encounter Note* Telephone Encounter - Angelica Maldonado - 11/12/2024 2:21 PM EDT Name of Caller: Kristin Contact Reason for Appointment: Patient is calling back to reschedule Surgery. Please call her back to discuss. Thank you. Office Name: ObGyn Medication Refills need, if any: No Medication Name: N/A [id number] Miscellaneous Notes* Telephone Encounter - Angelica Maldonado - 11/12/2024 2:21 PM EDT Name of Caller: Kristin Contact Reason for Appointment: Patient is calling back to reschedule Surgery. Please call her back to discuss. Thank you. Office Name: ObGyn Medication Refills need, if any: No Medication Name: N/A documented in this [facility]08-29-2025 Telephone encounter Note* Telephone Encounter - Nita Naik MA - 11/08/2024 2:26 PM EDT Phoned patient, left voicemail to return call. Need to relay provider message as below. Nita Naik MA [facility]08-29-2025 Miscellaneous Notes* Telephone Encounter - Nita Naik MA - 11/08/2024 2:26 PM EDT Phoned patient, left voicemail to return call. Need to relay provider message as below. Nita Naik MA * Telephone Encounter - Ziyad Harrell MD - 11/08/2024 11:21 AM EDT She should wait until the antibiotic therapy has been completed and the infection has resolved completely Have her schedule appt after labs are completed please * Telephone Encounter - Roxana Driscoll RN - 11/06/2024 2:44 PM EDT Patient called in again and asking for a call back with instructions. Patient states she does not like using the internet due to epilepsy and it being addictive. Patient informed that a message has been sent to her MD with her question. Roxana Driscoll RN * Telephone Encounter - Roxana Driscoll RN - 11/06/2024 9:07 AM EDT Patient calling in asking if she can [...] advise. Roxana Driscoll RN [facility] Telephone encounter Note * Telephone Encounter - Ziyad Harrell MD - 11/08/2024 11:21 AM EDT She should wait until the antibiotic therapy has been completed and the infection has resolved completely Have her schedule appt after labs are completed please [facility]08-27-2025 Telephone encounter Note* Telephone Encounter - Roxana Driscoll RN - 11/06/2024 2:44 PM EDT Patient called in again and asking for a call back with instructions. Patient states she does not like using the internet due to epilepsy and it being addictive. Patient informed that a message has been sent to her MD with her question. Roxana Driscoll RN [facility]08-27-2025 Telephone encounter Note* Telephone Encounter - Roxana Driscoll RN - 11/06/2024 9:07 AM EDT Patient calling in asking if she can have her labs drawn while on an antibiotic for an abscess. Patient's next appointment is 11/12/24. Patient is ordered to have Hydroxyprogesterone-17 and ACTH Stimulation labs drawn. Patient also asking if she needs to reschedule her appointment for next week if she is unable to have the labs drawn. Please review and advise. Roxana Driscoll, RN [facility]07-17-2025 Telephone encounter Note* Telephone Encounter - Ricco Gandhi MD - 09/26/2024 2:00 PM EDT Noted Ricco Gandhi MD [facility] Work Phone: 1(184) 898-571107-17-2025 Miscellaneous Notes* Telephone Encounter - Ricco Gandhi MD - 09/26/2024 2:00 PM EDT Noted Ricco Gandhi MD * Telephone Encounter - Rafia Vargas - 09/26/2024 1:33 PM EDT Patient was contacted by [facility] to notify the patient that her EMB on 09/27/24 was cancelled due to needing US completed prior. Patient called back very upset that her appointment was moved since she has difficulty finding transportation. Patient yelled and cursed that she was done with the [facility] because her appointments are consisently rescheduled and she no longer wishes to continue with procedures. She then abruptly ended the call. documented in this encounterC[facility]07[facility] Telephone encounter Note * Telephone Encounter - Rafia Vargas - 09/26/2024 1:33 PM EDT Patient was contacted by [facility] to notify the patient that her EMB on 09/27/24 was cancelled due to needing US completed prior. Patient called back very upset that her appointment was moved since she has difficulty finding transportation. Patient yelled and cursed that she was done with the [facility] because her appointments are consisently rescheduled and she no longer wishes to continue with procedures. She then abruptly ended the call. [facility]07-03-2025 NoteHNO ID: [id number] Author: CHARLETTE BRYANT APRN.CNM Service: ? 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 Josse Wayne is a 39 year old female who presents for problem visit for constant bleeding since 05/2022. She reports daily bleeding and soaking through ultra tampons and pads. She was receiving care in [place] and was supposed to have surgery but had to cancel due to transportation reasons. Pelvic US on 01/2024: Endometrium is thickened, echogenic and uniform measuring 16.23mm. No increased blood flow is noted. Consider endometrial sampling if clinically indicated. * NO PATHOLOGY REPORT TO VIEW Patient had hysteroscopy [facility] on 03/08/24 and was supposed to have a repeat in 06/2024. She did not complete the repeat hysteroscopy. She wants to transfer to this office to have care in [place]. Patient is not currently sexually active. She does not use any hormonal control. Reports her periods have been all over the place her whole life. Patient is a poor historian. Difficult to keep patient focused at times. Dog Boarder History LMP: 06/30/2021 (Approximate), Having periods Age at Menarche: Age at First : Age at Menopause: Dog Boarder History Comments: Sexual Activity: Yes; Male Contraception: [...] changes, redness or skin retraction. Expanded ROS: GATHERING MACHINE FEEDER: Positive for abnormal vaginal bleeding or (more content not included)...[facility]07-03-2025 History of Present illness Narrative* Charlette Bryant APRN.VALENTINE - 09/12/2024 10:13 AM EDT Patient declined traveling sales representative. Josse Wayne is a 39 year old female who presents for problem visit for constant bleeding since05/2022. She reports daily bleeding and soaking through ultra tampons and pads. She was receiving care in [place] and was supposed to have surgery but [...] to this office to have care in [place]. Patient is not currently sexually active. She does not use any hormonal control. Reports her periods have been all over the place her whole life. Patient is a poor historian. Difficult to keep patient focused at times. Dog Boarder History LMP: 06/30/2021 (Approximate), Having periods Age at Menarche: Age at First : Age at Menopause: Dog Boarder History Comments: Sexual Activity: Yes; Male Contraception: [...] by mouth once daily. (Patient not taking: Reportedon 04/26/2023) citalopram (CELEXA) 20 mg tablet Take 20 mg by mouth once daily. citalopram hydrobromide (CELEXA) 10 mg tablet Take 10 mg by mouth once daily. metFORMIN (GLUCOPHAGE) 500 mg tablet Take 500 mg by mouth three times daily. (Patient not taking: Reported on 04/26/2023) propranolol (INDERAL) 10 mg tablet Take 1 tablet by mouth once daily. (Patient not taking: Reportedon 06/03/2024) BIOTIN ORAL Take by mouth. cholecalciferol [...] changes, redness or skin retraction. Expanded ROS: GATHERING MACHINE FEEDER: Positive for abnormal vaginal bleeding or SEE HPI PSYCH: Positive for history of medications- stopped all meds 2 weeks ago because was told by supervisor melt house to stop? ENDOCRINE: Seen for NEURO: History [...] patient due to time restraints after collecting historyfrom patient - Poor historian and will need to review patient records and results in depth - AUB- Ordering pelvic US/ EMB and labs - Patient declined Aygestin PO even after strong recommendation - Patient may need more specialized exam/consult - Will follow up with patient after results returned Charlette Bryant APRN.CNM documented in this encounterC[facility] Instructions* Patient Instructions* Ziyad Harrell MD - 09/03/2024 11:40 AM [...] days before the test documented in this encounterC[facility]06-24-2025 NoteHNO ID: [id number] Author: ZIYAD HARRELL MD Service: ? Author Type: Physician Type: Progress Notes Filed: 09/04/2024 19:07 Note Text: Endocrinology and Metabolism [facility] Follow up visit REASON FOR CONSULT: Evaluation of ovarian hyperandrogenism REQUESTING PHYSICIAN: Yessi Munoz MD HPI Josse Gayle Wayne is a 38 year old female [...] taking: Reported on 06/03/2024) (more content not included)...[facility]06-24-2025 History of Present illness Narrative* Ziyad Harrell MD - 09/03/2024 11:28 AM EDT Endocrinology and Metabolism [facility] Follow up visit REASON FOR CONSULT: Evaluation [...] by mouth once daily. (Patient not taking: Reportedon 04/26/2023) metFORMIN (GLUCOPHAGE) 500 mg tablet Take 500 mg by mouth three times daily. (Patient not taking: Reported on 04/26/2023) propranolol (INDERAL) 10 mg tablet Take 1 tablet by mouth once daily. (Patient not taking: Reportedon 06/03/2024) No current facility-administered medications on file [...] no acute distress, morbidly obese, significant hirsutism, andbody hair NECK: negative for LAD THYROID: normal [...] (L) Low Imaging: US female pelvis: 01/23/2024: Dog Boarder Transvaginal 16301 INDICATIONS: Excessive bleeding in the premenopausal N92.4 period Unsure on LMP, Bleeding since May 2023 TV GATHERING MACHINE FEEDER ultrasound TECHNIQUE/SCAN QUALITY: Technique: Transvaginal Approach Scan [...] (ml): 2.64 LEFT OVARY: Status: Not visualized Impression: The [...] 02/14/2024. *Ultrasound cannot detect all pelvic or GATHERING MACHINE FEEDER abnormalities and normal findings cannot guarantee the [...] labs were done later in the day thanusual and unsure if hirsutism at that time [...] do not help with ovulation, but with regularizingcycles, where as metformin can help with ovulation [...] her to do ACTH stim test for 17OHP- instructions given again. Advised to hold menest, finasteride, and if taking aldactone and megace, for atleast 6 weeks beforethese labs can be drawn - Hold biotin [...] not want to go to providers outside [place], so recommended for weight management with Makeda Valverde APRN. WIRE TRANSFER CLERK (OBGYN dept in [place]) and discuss potential treatments like Zepbound or Wegovy to help with weight loss All questions answered, patient understands and agrees with plan Follow-up in 2 months with labs Ziyad Harrell MD Endocrinology Associate Staff [facility] Endocrinology and Metabolism [facility] [phone] Medical Decision Making: Problems: Low: Stable chronic illness Moderate: New problem with uncertain prognosis Data: Unique test result(s) reviewed: 3+ Unique test(s) ordered: 3+ Risk: High: High risk from testing/treatment Medical Decision Making Level: 4 - Moderate documented in this encounterCleveland Clinic [facility]04-08-2025 Telephone encounter Note * Telephone Encounter - Ghada Fairchild - 06/18/2024 9:29 AM EDT Called and LVM for pt letting her know her surgery is cancelled for tomorrow 06/19/24 due to not having a PAT. Told pt to call office to get that rescheduled. [id number] Miscellaneous Notes* Telephone Encounter - Ghada Fairchild - 06/18/2024 9:29 AM EDT Called and LVM for pt letting her know her surgery is cancelled for tomorrow 06/19/24 due to not having a PAT. Told pt to call office to get that rescheduled. * Telephone Encounter - Ghada Fairchild - 06/12/2024 2:20 PM EDT Pt called back wanting to keep the surgery and states she will have a ride for her PAT appt. Surgery is now staying. * Telephone Encounter - Ghada Fairchild - 06/12/2024 2:12 PM EDT Called pt in regards to her PAT appointment as she cancelled it. I left a VM stating she will have to have a PAT appt in order to proceed with surgery on 06/19/24. Pt calls office back angry asking whyshe needs to go in person to this [...] on 06/19/24 with Tammy. documented in this [facility]04-05-2025 NoteDischarge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 self. When explaining to patient she cannot not walk to [facility] to find a ride home to [place]. Patient began yelling and screaming that she was leaving and she didn't care what anyone said. Patient became more enraged with yelling and screaming. Raya Atwood called. [facility] protective services immediately arrived to the PACU and continued to attempt to deescalate the situation. It was explained to patient that we cannot allow her to walk a couple of blocks to [facility] and await a ride. Nursing Electric Knife Operator notified and on site in PACU. [facility] [id number] Note* Perioperative Nursing Note - Jael Loagn RN - 03/08/2024 4:20 PM EST Patient was in bed with curtain partially closed. Dressing self. When explaining to patient she cannot not walk to [facility] to find a ride home to [place]. Patient began yelling and screaming that she was leaving and she didn't care what anyone said. Patient became more enraged with yelling and screaming. Raya Atwood called. [facility] protective services immediately arrived to the PACU and continued to attempt to deescalate the situation. It was explained to patient that we cannot allow her to walk a couple of blocks to [facility] and await a ride. Nursing Electric Knife Operator notified and on site in PACU. [place] [id number] Note* Perioperative Nursing Note - Jael Logan RN - 03/08/2024 3:39 PM EST Patient does not want to medicated at this time [id number] Note* Perioperative Nursing Note - Jael Logan RN - 03/08/2024 3:39 PM EST Patient does not want to medicated at this time [id number] Note* Perioperative Nursing Note - Jael Logan RN - 03/08/2024 3:38 PM EST Patient states pain has gone to a 3. Much less discomfort and cramping. [facility] [id number] Note* Perioperative Nursing Note - aJel Logan RN - 03/08/2024 3:38 PM EST Patient states pain has gone to a 3. Much less discomfort and cramping. [facility] [id number] NotePatient: Josse Wayne Procedure Summary Date: 03/08/24 Room / Location: [address] Operating Room Anesthesia Start: 1453 Anesthesia [...] discharged once all PACU criteria has been met.[facility]12-27-2024 NotePatient: Josse Wayne Procedure Summary Date: 03/08/24 Room / Location: [address] Operating Room Anesthesia Start: 1453 Anesthesia [...] Allowed opportunity for questions and acknowledgement of understanding.[facility]12-27-2024 Note* Op Note - Yessi Munoz MD - 03/08/2024 2:54 PM EST Preop diagnosis: Menorrhagia Postoperative gnosis: Same Operation D&C Surgeon: Luciano Anesthesia: General EBL: Minimal Brief history: Patient is a 38-year-old with PCOS who is scheduled to undergo endometrial sampling.She has been bleeding for several months. She [...] to the recovery room in stable condition. [facility]12-27-2024 Note* Op Note - Yessi Munoz MD - 03/08/2024 2:54 PM EST Preop diagnosis: Menorrhagia Postoperative gnosis: Same Operation D&C Surgeon: Luciano Anesthesia: General EBL: Minimal Brief history: Patient is a 38-year-old with PCOS who is scheduled to undergo endometrial sampling.She has been bleeding for several months. She [...] to the recovery room in stable condition. [facility]12-27-2024 History and physical note* Yessi Munoz MD - 03/08/2024 2:31 PM EST History Of Present Illness Josse Wayne is [...] by mouth 2 times daily. 60 tablet 11105/09/2023 at 9:00 AM megestrol (Megace) 20 MG [...] proceed with D&C for sampling in OR. [facility]12-27-2024 NoteHistory Of Present Illness Josse Wayne is a [...] Will proceed with D&C for sampling in OR.[facility]12-27-2024 History and physical note* Yessi Munoz MD - 03/08/2024 2:31 PM EST History Of Present Illness Josse Wayne is [...] by mouth 2 times daily. 60 tablet 11105/09/2023 at 9:00 AM megestrol (Megace) 20 MG [...] for sampling in OR. documented in this [facility]12-27-2024 Note* Perioperative Nursing Note - Arabella Rose RN - 03/08/2024 2:[address] Munoz and Dr. Prater aware that pt came by [employer] today and states very tearfully thatshe has no one to pick her up. Pt notified of risks and still wishes to proceed. [facility] [id number] Note* Perioperative Nursing Note - Arabella Rose RN - 03/08/2024 2:[address] Munoz and Dr. Prater aware that pt came by [employer] today and states very tearfully thatveronicae has no one to pick her up. Pt notified of risks and still wishes to proceed. [facility] [id number] Note* Perioperative Nursing Note - Arabella Rose RN - 03/08/2024 1:58 PM EST Patient educated on importance of coughing/ deep breathing after surgery to reduce risk of pneumonia. Patient educated on importance of early mobility to reduce the risk of blood clots. Falls prevention information reviewed with patient. Post-operative pain control and ways to prevent constipation discussed with patient. [facility]12-27-2024 Note* Perioperative Nursing Note - Arabella Rose RN - 03/08/2024 1:58 PM EST Patient educated on importance of coughing/ deep breathing after surgery to reduce risk of pneumonia. Patient educated on importance of early mobility to reduce the risk of blood clots. Falls prevention information reviewed with patient. Post-operative pain control and ways to prevent constipation discussed with patient. [facility] HospitalMzqwpr02-17-1436 NotePatient: Josse Wayne Procedure Information Date/Time: 03/08/24 1500 Procedure: HYSTEROSCOPY DILATION AND CURETTAGE - 1 HOUR TOTAL Location: [address] Operating Room Surgeons: Yessi Munoz MD [...] any previous visit. Equipment Requests: Additional Equipment RequestsTr[facility]12-16-2024 Telephone encounter Note* Telephone Encounter - Dutch Watkins - 02/26/2024 9:14 AM EST PAT: by phone 03.04.2024 at 9 am SX: 03.08.2024 at 3 pm arrival at 1 pm Post op . at 1:45 pm Instructions given. [place] [id number] Miscellaneous Notes* Telephone Encounter - Dutch Watkins - 02/26/2024 9:14 AM EST PAT: by phone 03.04.2024 at 9 am SX: 12 at 3 pm arrival at 1 pm Post op 03.25.2024 at 1:45 pm Instructions given. documented in this [facility]11-25-2024 History of Present illness Narrative* Yessi Munoz MD - 02/05/2024 9:58 AM EST Discussed this. Still bleeding. Megace and D&C. documented in this [place] [address]-14-2024 Telephone encounter Note* Telephone Encounter - Angella Ridley MA - 01/25/2024 1:50 PM EST Called and LVM to have pt schedule an appointment to review results, review bloodwork, and discuss concerns for yeast infection. Pt needs an appointment to review further workup [place] [id number] Miscellaneous Notes* Telephone Encounter - Angella Ridley MA - 01/25/2024 1:50 PM EST Called and LVM to have pt schedule an appointment to review results, review bloodwork, and discuss concerns for yeast infection. Pt needs an appointment to review further workup * Telephone Encounter - Kirsten Varela MA - 01/25/2024 10:51 AM EST Called and spoke w/ pt. She was [...] results because that is all she wants. * Telephone Encounter - Jose Villagomez RN - 01/24/2024 2:35 PM EST S: Patient spoke to CAC nurse regarding [...] was telling her I would message the doctorshe started using profanities and ended the call. R: Unable to complete this call. Upset about wanting to go over ultrasound results. Reason for Disposition Triager unable to complete call (e.g., caller continues to be abusive or caller hangs up) Protocols used: Difficult [id number] documented in this [facility]11-14-2024 Telephone encounter Note* Telephone Encounter - Kirsten Varela MA - 01/25/2024 10:51 AM EST Called and spoke w/ pt. She was [...] results because that is all she wants. [facility] [id number] Telephone encounter Note* Telephone Encounter - Jose Villagomez RN - 01/24/2024 2:35 PM EST S: Patient spoke to CAC nurse regarding [...] was telling her I would message the doctorshe started using profanities and ended the call. R: Unable to complete this call. Upset about wanting to go over ultrasound results. Reason for Disposition Triager unable to complete call (e.g., caller continues to be abusive or caller hangs up) Protocols used: Difficult [id number] [facility] [id number] Telephone encounter Note* Telephone Encounter - Naomi Corona - 01/18/2024 9:14 AM EST Message released to patient as written. Yes Labs consistent with PCOS, can discuss at next visit Patient's further questions if applicable: N/A Were all questions from office addressed or relayed to the patient from encounter: Yes [facility] [id number] Miscellaneous Notes* Telephone Encounter - Naomi Corona - 01/18/2024 9:14 AM EST Message released to patient as written. Yes Labs consistent with PCOS, can discuss at next visit Patient's further questions if applicable: N/A Were all questions from office addressed or relayed to the patient from encounter: Yes documented in this [facility]10-28-2024 Telephone encounter Note* Telephone Encounter - Katja Briggs RN - 01/08/2024 10:24 AM EDT S: The patient is calling the CAC about a medication B: She hung up prior to talking to a nurse R: Left a message for her to call back if she continues to need assistance. Reason for Disposition Message left on identified voicemail Protocols used: No Contact or Duplicate Contact [id number] [facility] HospitalQvsphr12-31-7419 Miscellaneous Notes* Telephone Encounter - Katja Abrams RN - 01/08/2024 10:24 AM EDT S: The patient is calling the CAC about a medication B: She hung up prior to talking to a nurse R: Left a message for her to call back if she continues to need assistance. Reason for Disposition Message left on identified voicemail Protocols used: No Contact or Duplicate Contact [id number] documented in this [facility]10-23-2024 History of Present illness Narrative* Yessi Munoz MD - 01/03/2024 11:45 AM EDT Chief Complaint Patient presents with Vaginal Bleeding [...] labs and possible biopsy Follow up for seismology technical officer us. documented in this [facility]07-17-2024 Telephone encounter Note* Telephone Encounter - Makeda Blakely MA - 09/27/2023 4:11 PM EDT Patient returned call. She has not done any treatment for her knee outside of [facility]. Patient declines a cortisone injection as she does not like steroid use. She is willing to try NSAID (send to [facility]) and PT. Please place orders. Notify patient once completed. [facility]07-17-2024 Miscellaneous Notes* Telephone Encounter - Makeda Blakely MA - 09/27/2023 4:11 PM EDT Patient returned call. She has not done any treatment for her knee outside of [facility]. Patient declines a cortisone injection as she does not like steroid use. She is willing to try NSAID (send to [facility]) and PT. Please place orders. Notify patient once completed. * Telephone Encounter - Makeda Blakely MA - 09/27/2023 3:58 PM EDT I called and left a message for the patient to contact the office. No cortisone injections given in the right knee. No documented PT since 2016 at [facility]. No NSAID use documented since 2020. * Telephone Encounter - Makeda Blakely MA - 09/19/2023 11:52 AM EDT === PHARMACY TEAM ==== ADDITIONAL INFORMATION NEEDED/REQUESTED Case Submitted: No Request Type: Provider Date of Service: tbs Additional Information Needed: per payer policy pt must have trail/failure of the following: Pt/hep Nsiads, And CSI. Please advise if pt has completed the above. Thank you. Request from Payor by: N/A Email Sent to: ANTHONY GARVIN V Requested Clinicals/Information Sent: N/A Was this already addressed? * Telephone Encounter - Makeda Blakely MA - 09/07/2023 10:54 AM EDT Referral still pending with insurance. * Telephone Encounter - Makeda Blakely MA - 08/25/2023 2:52 PM EDT Referral placed for Gel One injection x 1 into right knee. documented in this encounterC[facility]07-[facility]-2024 Telephone encounter Note * Telephone Encounter - Makeda Blakely MA - 09/27/2023 3:58 PM EDT I called and left a message for the patient to contact the office. No cortisone injections given in the right knee. No documented PT since 2016 at [facility]. No NSAID use documented since 2020. [facility]07-17-2024 Telephone encounter Note* Telephone Encounter - Luma (Pharmacy Ira), Adenike Caputo - 09/27/2023 3:24 PM EDT === PHARMACY TEAM ==== ADDITIONAL INFORMATION NEEDED/REQUESTED Case Submitted: No Request Type: Provider Date of Service: tbs Additional Information Needed: per payer policy pt must have trail/failure of the following: Pt/hep Nsiads, And CSI. Please advise if pt has completed the above. Thank you. Request from Payor by: N/A Email Sent to: ANTHONY GARVIN V Requested Clinicals/Information Sent: N/A [facility]07-17-2024 Miscellaneous Notes* Telephone Encounter - Luma (Pharmacy Ira), Adenike Caputo - 09/27/2023 3:24 PM EDT === PHARMACY TEAM ==== ADDITIONAL INFORMATION NEEDED/REQUESTED Case Submitted: No Request Type: Provider Date of Service: tbs Additional Information Needed: per payer policy pt must have trail/failure of the following: Pt/hep Nsiads, And CSI. Please advise if pt has completed the above. Thank you. Request from Payor by: N/A Email Sent to: ANTHONY GARVIN V Requested Clinicals/Information Sent: N/A documented in this encounterC[facility] Telephone encounter Note * Telephone Encounter - Makeda Blakely MA - 09/19/2023 11:52 AM EDT === PHARMACY TEAM ==== ADDITIONAL INFORMATION NEEDED/REQUESTED [...] N/A Was this already addressed? [facility]07-08-2024 Telephone encounter Note* Telephone Encounter - Trae Busby - 09/18/2023 6:49 AM EDT Any updates on this ? [facility]07-08-2024 Miscellaneous Notes* Telephone Encounter - Trae Busby - 09/18/2023 6:49 AM EDT Any updates on this ? * Telephone Encounter - Ladonna Porter MA - 09/08/2023 2:58 PM EDT === PHARMACY TEAM ==== ADDITIONAL INFORMATION NEEDED/REQUESTED Case Submitted: No Request Type: Provider Date of Service: tbs Additional Information Needed: per payer policy pt must have trail/failure of the following: Pt/hep Nsiads, And CSI. Please advise if pt has completed the above. Thank you. Request from Payor by: N/A Email Sent to: ANTHONY GARVIN V Requested Clinicals/Information Sent: N/A documented in this encounterC[facility] Telephone encounter Note * Telephone Encounter - Ladonna Porter MA - 09/08/2023 2:58 PM EDT === PHARMACY TEAM ==== ADDITIONAL INFORMATION NEEDED/REQUESTED Case Submitted: No Request Type: Provider Date of Service: tbs Additional Information Needed: per payer policy pt must have trail/failure of the following: Pt/hep Nsiads, And CSI. Please advise if pt has completed the above. Thank you. Request from Payor by: N/A Email Sent to: ANTHONY GARVIN V Requested Clinicals/Information Sent: N/A [facility]06-27-2024 Telephone encounter Note* Telephone Encounter - Makeda Blakely MA - 09/07/2023 10:54 AM EDT Referral still pending with insurance. [facility]06-14-2024 Telephone encounter Note* Telephone Encounter - Makeda Blakely MA - 08/25/2023 2:52 PM EDT Referral placed for Gel One injection x 1 into right knee. [facility]06-14-2024 History of Present illness Narrative* Anthony Garvin V, - 08/25/2023 2:08 PM EDT Images from the original note were not [...] helped quite a bit with her symptoms andwould like to consider repeating that injection. Review [...] by mouth once daily. (Patient not taking: Reportedon 04/26/2023) metFORMIN (GLUCOPHAGE) 500 mg tablet Take 500 mg by mouth three times daily. (Patient not taking: Reported on 04/26/2023) propranolol (INDERAL) 10 mg tablet Take 1 tablet by mouth once daily. (Patient not taking: Reportedon 06/07/2022) ferrous sulfate (IRON ORAL) Take by [...] DATE: August 25, 2023 TIME: 2:08 PM * Makeda Blakely MA - 08/25/2023 1:50 PM EDT AMB ROOMING INTAKE FLOWSHEET DATA Pain Pain Level: 6 Pain Location: Knee-Right Description: Other: See comment (popping) Duration Amount of Time: (ongoing) Frequency: Intermittent Intervention/Comfort measure: Reposition documented in this encounterC[facility] Clinic [facility]06-14-2024 History of Present illness Narrative* Mariam Salazar RT(R) - 08/25/2023 1:00 PM EDT Radiology Service Progress Note PATIENT NAME: Josse Wayne DATE OF SERVICE: August 25, 2023 TIME: 2:00 PM PATIENT IDENTITY VERIFICATION COMPLETED USING TWO (2) IDENTIFIERS: Name and Date of confirmedby patient verbally. FALL SCREENING: Has the patient had 2 falls in the last year or 1 fall with injury or currently using an Ambulatory Assistive Device (Walker, Cane, Wheelchair, Crutches, etc.)? No PATIENT GENDER DATA: Female. status: : No status: NO. PATIENT RELEVANT IMPLANT DATA REVIEWED: Not Applicable PATIENT PRESENTS WITH AN IMPLANTABLE OR ATTACHED SERVICE OR WORK DISPATCHER: No RADIOLOGY DEPARTMENT: General X-ray: Exam(s) Completed: Lower Extremity X- Ray(s): Knee, AP / Lat / Tunne / Merchant Right and Wt. Bearing PERIPHERAL IV DATA: Not applicable SIGNED BY: RT Yandel(R) August 25, 2023 2:00 PM documented in this encounterC[facility]04-10-[facility] History of Present illness Narrative* Demetrius Robertson APRN - WIRE TRANSFER CLERK - 06/21/2023 9:00 AM EDT Visit type: Established Patient Reason for Visit: [...] was in 2013 She is working for [employer] with plans to build a home She [...] times daily. citalopram (CeleXA) 10 MG tablet /10/01 take 1 tablet by oral route every [...] History: Procedure Laterality Date BRAIN SURGERY 1998 Family History Problem Relation Name Age of [...] 10/28/2020 VITAMIN B12: No results found for: [id number] No results found for: PHENYTOIN, PHENOBARB, VALPROATE, CBMZ No components found for: TOPIRA @RESULTINGLABINFO@ No results found for: LEVETIRACETA, FERRITIN, CRP, SUKHDEV, ANCA No results found for: REGLA, IMMUNOGLOBUL, OLIGOBANDS No results found for: HRX39BC, HEPCAB No results found for: CRP, ANATITER, ANCA FERRITIN: No results found for: FERRITIN ---- US NON OB TRANSVAGINAL Narrative: Gynecological Report (Signed Final 01/07/2021 01:43 pm) Patient Info ID #: [id number] : [birth year] (35 yrs)(F) Name: JOSSE WAYNE Visit Date: 01/06/2021 01:12 pm Performed By Attending: Yessi Location: [facility] Tammy Salazar Performed By: Bel Lemos Visit Type: [facility] RDMS Referred By: YESSI MUNOZ Service(s) Provided Dog Boarder Transvaginal [id number] Indications Polycystic ovarian syndrome E28.2 Ovarian cyst (right) N83.201 LMP 01/03/2021 TV GATHERING MACHINE FEEDER ultrasound Technique/Scan Quality Technique: Transvaginal Approach Comparison [...] 01/06/2021. *Ultrasound cannot detect all pelvic or GATHERING MACHINE FEEDER abnormalities and normal findings cannot guarantee the [...] on @TDNR@ at @NOWNR@ documented in this [facility]04-10-2024 Instructions* Patient Instructions* FRANCO Cota CNP - 06/21/2023 9:00 AM EDT Continue Keppra 1000mg twice daily Check level Follow up in April documented in this [facility]02-28-2024 History of Present illness Narrative* Surjit Ordonez MD - 05/10/2023 9:05 AM EST Patient presents with: Sore Throat: Left ear [...] by mouth once daily. (Patient not taking: Reportedon 04/26/2023) metFORMIN (GLUCOPHAGE) 500 mg tablet Take 500 mg by mouth three times daily. (Patient not taking: Reported on 04/26/2023) propranolol (INDERAL) 10 mg tablet Take 1 tablet by mouth once daily. (Patient not taking: Reportedon 06/07/2022) No current facility-administered medications for this [...] thigh papule present for the last year. 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 Surjit Ordonez MD documented in this encounterC[facility]02-[facility] History of Present illness Narrative* Jose Mattson PA - 04/26/2023 4:36 PM EST This note was created using Redu.usriter. Subjective Josse Wayne is a 37 year old female. HPI 37-year-old female presents for sinus congestion, sinus pressure, cough x 2 weeks. Patient states that she started getting sick at the beginning of April with nasal congestion, and cough. She states that she now has worsening sinus pressure. She is coughing up some phlegm. States she has been taking [id number]-[id number] cough and cold medications with minimal improvement. [...] by mouth once daily. (Patient not taking: Reportedon 04/26/2023) metFORMIN (GLUCOPHAGE) 500 mg tablet Take 500 mg by mouth three times daily. (Patient not taking: Reported on 04/26/2023) propranolol (INDERAL) 10 mg tablet Take 1 tablet by mouth once daily. (Patient not taking: Reportedon 06/07/2022) FAMILY HISTORY Problem Relation Age of [...] ER evaluation. ERVIN Banda documented in this encounterCleveland Clinic [facility]02-06-2024 Telephone encounter Note * Telephone Encounter - Dee Arreola MA - 04/18/2023 7:14 AM EST Last ov- 07/08/22 Next ov- 07/11/23 [id number] Miscellaneous Notes* Telephone Encounter - Dee Arreola MA - 04/18/2023 7:14 AM EST Last ov- 07/08/22 Next ov- 07/11/23 documented in this encounterSMount Carmel Health [id number] History of Present illness Narrative* Aubrie Rich MA - 02/14/2023 1:44 PM EST POPULATION HEALTH NAVIGATION OUTREACH Action/FYI February 14, 2023 [place] Attribution Member- Chart review- Dejan Eduardo Annual Wellness A1C- Per [place] Flu shot Aubrie Rich MA Patient Identified [...] 14, 2023 1:46 PM documented in this encounterC[facility] Clinic [facility]10-27-2023 NoteHNO ID: [id number] Author: Nita Falk Service: ? Author Type: [...] Signature: Nita Falk January 06, 2023 4:03 [facility]10-23-2023 NoteHNO ID: [id number] Author: Nita Falk Service: ? Author Type: ? Type: Progress Notes Filed: 01/02/2023 2:23 PM Note Text: POPULATION HEALTH NAVIGATION OUTREACH Action/FYI Patient Identified by Name and : YES, via phone Outreach Outcome/Action Unable to reach patient: Left message Reason for Outreach Care Gap or Scheduling/Wellness visits Payer: Payor: [employer] BLUE CROSS AND BLUE SHIELD / Plan: ANTHEM MEDIBLUE HMO / Product Type: HMO / Care Gap Reviewed:: Annual Wellness visit Diabetic Eye Exam HBA1C Navigation Signature: Nita Falk January 02, 2023 2:20 [facility]10-23-2023 NotePatient Outreach (AGFAMPLE) JOSSE WAYNE ([id number]) 1985 F Date Time Provider Department 01/02/23 [...] Nita Falk January 02, 2023 2:20 PM Raquel Falknifer 01/06/2023 4:08 PM Signed POPULATION HEALTH NAVIGATION [...] Gap or Scheduling/Wellness visits Payer: Payor: JUANY [employer] / Plan: JUANY MEDIBLarviem AG HMO / Product Type: HMO / Care Gap Reviewed:: Annual Wellness visit Diabetic Eye Exam HBA1C Navigation Signature: Nita BaldwinDeya January 06, 2023 4:03 PM Allergies As of Date: 01/02/2023 Noted Allergy Reaction PHENOBARBITAL 09/12/2006 2 - Rash Date Reviewed: 03/02/2022 Reviewed by: Gabe Pierre APRN.WIRE TRANSFER CLERK - Fully Assessed Reason for Visit: Population [...] 03/02/2022 Encounter Status:Closed by NITA FALK on 01/02/23[facility]09-19-2023 Telephone encounter Note* Telephone Encounter - Dee Arreola MA - 11/29/2022 1:34 PM EDT Last ov- 07/08/22 Next ov- 07/11/23 [facility] [id number] Miscellaneous Notes* Telephone Encounter - Dee Arreola MA - 11/29/2022 1:34 PM EDT Last ov- 07/08/22 Next ov- 07/11/23 documented in this encounterSMount Carmel Health SystemUrhjba99-89-0890 History of Present illness Narrative* Chantel Rushing - 09/05/2022 7:50 AM EDT Josse Wayne is identified through a medication adherence outreach initiative based on pharmacy claims data from Pricing Assistant (insurer) for Non-insulin DM medication(s). Patient is [...] answer, lvm Chantel Rushing documented in this encounterC[facility] Clinic [facility]05-12-2023 History of Present illness Narrative* Rafia Mcgarry - 07/22/2022 11:47 AM EDT Josse Wayne is identified through a medication adherence outreach initiative based on pharmacy claims data from Pricing Assistant (insurer) for Non-insulin DM medication(s). Patient is [...] PT LVM Rafia Mcgarry documented in this encounterCleveland Clinic [facility]05-05-2023 Telephone encounter Note * Telephone Encounter - Shalonda Ricci - 07/15/2022 1:20 PM EDT Message released to patient as written. Patient's further questions if applicable: No Were all questions from office addressed or relayed to the patient from encounter: Yes [facility] HospitalVtieiw90-79-4577 Miscellaneous Notes* Telephone Encounter - Shalonda Ricci - 07/15/2022 1:20 PM EDT Message released to patient as written. Patient's further questions if applicable: No Were all questions from office addressed or relayed to the patient from encounter: Yes * Telephone Encounter - Dee Arreola MA - 07/15/2022 9:23 AM EDT Lm for patient to call the office back, please let her know we did receive the Levetiracetam levelsom [facility]. * Telephone Encounter - Dee Arreola MA - 07/14/2022 8:06 AM EDT Lm for patient to call the office back, please let her know [facility] * Telephone Encounter - Zee Dias - 07/13/2022 5:07 PM EDT Name of caller: Josse Contact phone number: [phone] Relationship to Patient: patient Provider: ALEJANDRO Robertson Practice: [facility] [place] Chief Complaint/Reason for Call: Patient would like [...] return their call: Yes documented in this encounterSMount Carmel Health SystemXclrkp27-28-1795 Telephone encounter Note* Telephone Encounter - Dee Arreola MA - 07/15/2022 9:23 AM EDT Lm for patient to call the office back, please let her know we did receive the Levetiracetam [facility]. [facility] HospitalQshohp99-39-5695 Telephone encounter Note* Telephone Encounter - Dee Arreola MA - 07/14/2022 8:06 AM EDT Lm for patient to call the office back, please let her know we did receive the Levetiracetam [facility]. [facility] HospitalPepond06-24-0278 Telephone encounter Note* Telephone Encounter - Zee Dias - 07/13/2022 5:07 PM EDT Name of caller: Josse Contact phone number: [phone] Relationship to Patient: patient Provider: ALEJANDRO Robertson Practice: [facility] [place] Chief Complaint/Reason for Call: Patient would like to know if the office received her lab work results from 07/11/22. She states she would like to know as there has been problem with the office receiving her lab work results. Please advise. Best time of day caller can be reached: any Patient advised that office/PCP has 24-48 business hours to return their call: Yes [facility] HospitalJooapi30-90-6323 Telephone encounter Note* Telephone Encounter - Dayne Reinoso - 07/13/2022 8:09 AM EDT Images from the original note were not included. [facility] HospitalBjuhqj90-18-8857 Miscellaneous Notes* Telephone Encounter - Dayne Reinoso - 07/13/2022 8:09 AM EDT Images from the original note were not included. documented in this encounterSMount Carmel Health SystemQvilir11-52-3544 History of Present illness Narrative* Demetrius Ailyn, TRANSMISSION WORKER - WIRE TRANSFER CLERK - 07/08/2022 1:30 PM EDT Visit type: Established Patient Reason for Visit: [...] BMP: Lab Results Component Value Date GLUCOSE 10/28/2020 PT/INR: No results found for: PROTIME, INR PTT: No results found for: APTT, PTT[APTT} FLP: No results found for: CHLPL, TRIG, HDL, LDLCALC, LDLDIRECT TSH: Lab Results Component Value Date TSH 0.531 10/28/2020 VITAMIN B12: No results found for: SHUUMLAV67 No results found for: PHENYTOIN, PHENOBARB, VALPROATE, CBMZ No components found for: TOPIRA @RESULTINGLABINFO@ No results found for: LEVETIRACETA, FERRITIN, CRP, SUKHDEV, ANCA No results found for: REGLA, IMMUNOGLOBUL, OLIGOBANDS No results found for: KUA34HF, HEPCAB No results found for: CRP, ANATITER, ANCA, ANCA FERRITIN: No results found for: FERRITIN ---- US NON OB TRANSVAGINAL Narrative: Gynecological Report (Signed Final 01/07/2021 01:43 pm) Patient Info ID #: [id number] : [birth year] (35 yrs)(F) Name: JOSSE WAYNE Visit Date: 01/06/2021 01:12 pm Performed By Attending: Yessi Location: [facility] Tammy Salazar Performed By: Bel Lemos Visit Type: [facility] RDMS Referred By: YESSI MUNOZ Service(s) Provided Dog Boarder Transvaginal 16934 Indications Polycystic ovarian syndrome E28.2 Ovarian cyst (right) N83.201 LMP 01/03/2021 TV GATHERING MACHINE FEEDER ultrasound Technique/Scan Quality Technique: Transvaginal Approach Comparison [...] 01/06/2021. *Ultrasound cannot detect all pelvic or GATHERING MACHINE FEEDER abnormalities and normal findings cannot guarantee the [...] for this encounter. Demetrius Robertson APRN - WIRE TRANSFER CLERK I spent 20 minutes caring for this patient today, reviewing labs, records, seeing the patient, documenting in the record and arranging for studies. Electronically signed by @HANNAH@ on @TDNR@ at @NOWNR@ documented in this [facility]04-28-2023 Instructions* Patient Instructions* FRANCO Cota CNP - 07/08/2022 1:30 PM EDT Continue Keppra 1000mg twice daily (I sent new script for 1000mg tabs-so take 1 tab twice daily) Check level in am PRIOR to am dosing documented in this [facility]04-21-2023 History of Present illness Narrative* Yesica Wilder Pharm-T - 07/01/2022 1:42 PM EDT Josse Wayne is identified through a medication adherence outreach initiative based on pharmacy claims data from Pricing Assistant (insurer) for Non-insulin DM medication(s). Patient is [...] left. Yesica Wilder Pharm-T documented in this encounterCleveland [facility]03-28-2023 History of Present illness Narrative* Senait Gandhi APRN.CNP - 06/07/2022 2:05 PM EDT CC: Patient presents with: Nasal Congestion: drainage, [...] by mouth once daily. (Patient not taking: Reportedon 06/07/2022) FAMILY HISTORY Problem Relation Age of [...] Patient agreeable to treatment plan. Senait Gandhi APRN.ALEJANDRO documented in this encounterCleveland Clinic [facility]02-08-2023 Telephone encounter Note * Telephone Encounter - Leigha Ho Moctezuma - 04/20/2022 8:57 AM EST LM for pt to contact billing dept @ [phone] & to call the ofc back if needed [facility] HospitalGopxts90-77-8541 Miscellaneous Notes* Telephone Encounter - Leigha Moctezuma - 04/20/2022 8:57 AM EST LM for pt to contact billing dept @ [phone] & to call the ofc back if needed * Telephone Encounter - Bebe Perez - 04/08/2022 10:52 AM EST Noted! Pt needs to speak with the billing dept. This is not something we handle. * Telephone Encounter - Leigha Moctezuma - 04/08/2022 9:56 AM EST Has this been resolved? Please advise * Telephone Encounter - Leigha Moctezuma - 03/25/2022 4:07 PM EST Name of caller: Josse Wayne Contact phone number: [phone] Relationship to Patient: patient Provider: Dr Munoz Practice: [facility] Chief Complaint/Reason for Call: Pt [...] return their call: Yes documented in this [facility]01-27-2023 Telephone encounter Note* Telephone Encounter - Bebe Perez - 04/08/2022 10:52 AM EST Noted! Pt needs to speak with the billing dept. This is not something we handle. [facility] [id number] Telephone encounter Note* Telephone Encounter - Leighaakshat Moctezuma - 04/08/2022 9:56 AM EST Has this been resolved? Please advise [facility] Jdamgw61-45-0541 Telephone encounter Note* Telephone Encounter - Leigha EstefaniaFrancis Marshallghislaineke - 03/25/2022 4:07 PM EST Name of caller: Josse Wayne Contact phone number: [phone] Relationship to Patient: patient Provider: Dr Munoz Practice: [facility] Chief Complaint/Reason for Call: Pt [...] business hours to return their call: Yes [facility] [id number] NoteHNO ID: [id number] Author: Gabe Pierre APRN.WIRE TRANSFER CLERK Service: ? Author Type: Nurse Practitioner Type: Progress Notes Filed: 03/02/2022 3:39 PM Note Text: This note was created using Redu.usriter. Subjective Josse Wayne is a 36 year old female here today to establish care. PMH PTSD, PCOS, obesity, hirsutism, epilepsy. Former PCP Dr Vazquez in [place]. Anxiety, Depression, PTSD: chronic, stable. She is seeing psychiatrist at [facility]. She is taking Celexa 30 mg daily, [...] She is seeing Dr Anderson Pedroza in [place]. Reports last seizure 2012. Reports her keppra [...] and COVID vaccines. She follows up with GATHERING MACHINE FEEDER regularly. ALLERGIES Allergen Reactions Phenobarbital Rash Current [...] BP 110/78 (BP Site: (more content not included)...[facility] 03-02-2022 History of Present illness Narrative* Gabe Pierre, FRANCO.WIRE TRANSFER CLERK - 03/02/2022 2:53 PM EST Images from the original note were not included. This note was created using NoteWriter. Subjective Josse Wayne is a 36 year old female here today to establish care. PMH PTSD, PCOS, obesity, hirsutism, epilepsy. Former PCP Dr Vazquez in [place]. Anxiety, Depression, PTSD: chronic, stable. She is seeing psychiatrist at [facility]. She is taking Celexa 30 mg daily, [...] She is seeing Dr Anderson Pedroza in [place]. Reports last seizure 2012. Reports her keppra was recently was increased. PCOS: chronic, she is seeing Dr Yessi Vann. She is taking metformin 500 mg 3 times a day. Reports she has been on this for about 2 yrs. Face rash: reports on going rash on face. Reports she has tried many lotions, including antifungal,steroid, antibiotics and nothing has worked. This has been ongoing since June Preventative: declines flu and COVID vaccines. She follows up with GATHERING MACHINE FEEDER regularly. ALLERGIES Allergen Reactions Phenobarbital Rash Current [...] diet of 1000 mg/day for under 50, 1200- 1500 mg/day for 50+ - Discussed need and [...] stable. - continue metformin and management with GATHERING MACHINE FEEDER 5. 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 Continue management with Neuro Gabe Pierre APRN.WIRE TRANSFER CLERK documented in this encounterCleveland Clinic [facility] Hospital12-19-2022 Miscellaneous Notes* Telephone Encounter - Blessing Amezcua MA - 02/28/2022 4:53 PM EST Letter faxed Blessing Amezcua MA * Telephone Encounter - Monique Levine - 02/24/2022 1:55 PM EST ----- Message from Jessica Monson sent at [...] to office for appt on 03/02/22 fax [phone] jojo Was Patient Referred to 911/Seek Emergency Treatment (Y/N): n Did Patient Agree (Y/N): n Was An Attempt Made To Transfer The Patient To The Office (Y/N): n Were You Able To Reach Someone At The Office (Y/N): n If Yes - Patient Was Transferred To (Caregivers Name): n If No - Which [facility] Shop Fitter Did You Speak With Regarding This Patient: n Was an appointment scheduled (Y/N): n Reason patient was requesting visit (RFV/signs and symptoms/diagnosis) : na Person calling if other than patient: na Return call to if other than patient: na Best contact number: [phone] Thank you, Jessica Monson February 24, 2022 1:09 PM documented in this encounterCleveland Clinic [facility]12-19-2022 Miscellaneous Notes* Telephone Encounter - Blessing Amezcua MA - 02/28/2022 2:42 PM EST Letter faxed Blessing Amezcua MA * Telephone Encounter - Blessing Amezcua MA - 02/28/2022 2:39 PM EST ----- Message from Tisha Martinez sent at 02/24/2022 1:28 PM EST ----- Regarding: FW: new pt ----- Message ----- From: Jessica Monson Sent: 02/24/2022 1:11 PM EST To: [facility] Munoz[facility] Triage Pool Subject: new pt [...] to office for appt on 03/02/22 fax [phone] jojo Was Patient Referred to 911/Seek Emergency Treatment (Y/N): n Did Patient Agree (Y/N): n Was An Attempt Made To Transfer The Patient To The Office (Y/N): n Were You Able To Reach Someone At The Office (Y/N): n If Yes - Patient Was Transferred To (Caregivers Name): n If No - Which [facility] Leadership Shop Fitter Did You Speak With Regarding This Patient: n Was an appointment scheduled (Y/N): n Reason patient was requesting visit (RFV/signs and symptoms/diagnosis) : na Person calling if other than patient: na Return call to if other than patient: na Best contact number: [phone] Thank you, Jessica Mnoson February 24, 2022 1:09 PM documented in this encounterC[facility] History of Present illness Narrative* Anthony Garvin V, DO - 01/21/2022 11:54 AM EST SUBJECTIVE: Josse Wayne is a 36 year old female who is here for a right knee injury. It occurred after 2 falls, 1 3 weeks ago and another 1 week ago when she landed on the front of the knee. Symptoms includepain over the front of the knee, pain [...] discussed with patient who consents to proceed. Patientwished to proceed. 6mg celestonewith 2cc, 1% lidocaine and 2cc .5% marcaine was injected. Injectionwas carried out under sterile conditions through a LATERAL PARAPATELLAR site into the knee joint. Patient had no immediate complications and tolerated the procedure well. Anthony Garvin DO * Makeda Blakely Ma - 01/21/2022 11:26 AM EST AMB ROOMING INTAKE FLOWSHEET DATA Risk Screening Do you have concerns about personal safety or safety in the home?: No Pain Pain Level: 4 Pain Location: Knee-Right Description: Tightness, Stiffness Duration Amount of Time: 3 Duration Units: Weeks Frequency: Continuous Intervention/Comfort measure: Heat documented in this encounterC[facility]07-19-2022 Miscellaneous Notes* Telephone Encounter - Carol Mae LPN - 09/28/2021 12:29 PM EDT Pt returned call and was given below information. Carol Mae LPN * Telephone Encounter - Carol Mae LPN - 09/27/2021 4:43 PM EDT Message left asking pt to call the office for test results. Carol Mae LPN * Telephone Encounter - Katerine Hanson APRN.CNP - 09/27/2021 4:25 PM EDT Please let the pt know that her blood is negative for infection. Katerine Hanson APRN.CNP documented in this encounterCleveland [facility]05-26-2022 History of Present illness Narrative* Soha Mathew MA - 08/05/2021 2:42 PM EDT POPULATION HEALTH NAVIGATION OUTREACH Action/I Patient returned my call Patient does not have a PCP at [facility] and does not want one. Patient would like the Population Health Navigation calls to end, she may sometimes use the [facility] walk in clinic or E.R. if needed but will not use outpatient providers at [facility]. Entered information into patient's demographics Pt identified by name and : YES, via phone Outreach Outcome/Action Spoke to patient or caregiver: PCP confirmed / updated Patient declined Navigation Signature: Soha Mathew MA August 05, 2021 2:42 PM * Soha Mathew MA - 08/05/2021 8:06 AM EDT POPULATION HEALTH NAVIGATION OUTREACH Action/FYI Care Gap Reviewed:: Annual Wellness visit - verify PCP [place] Pt identified by name and : NO Outreach Outcome/Action Unable to reach patient: Left message Reason for Outreach Care Gap or Scheduling/Wellness visits Payer: Payor: [employer] BLUE [employer]IELD / Plan: ANTHEM [...] 05, 2021 8:06 AM documented in this encounterCleveland Clinic [facility]04-29-2022 Instructions* Patient Instructions* Bela Joseph APRN.CNP - 07/09/2021 7:37 PM [...] Discussed expected course of illness Bela Joseph APRN.WIRE TRANSFER CLERK TEMPOROMANDIBULAR JOINT (TMJ) PAIN: Your exam shows [...] with your hand so your mouth does notopen wide. Eat a soft diet (nothing firmer than ground beef, no raw vegetables), and do not talk ifit causes you pain. Anti-inflammatory pain medicine and muscle relaxants can also be helpful. A dental orthotic or splint may be used for temporary relief. Long-term problems may require treatment for stress as well as braces or surgery. Please check with your doctor or dentist if your symptoms do not improve within one week. documented in this encounterCleveland Clinic [facility]04-29-2022 History of Present illness Narrative* Bela Joseph APRN.CNP - 07/09/2021 7:34 PM EDT Subjective HPI Josse Wayne is a 36 year old female who presents with left jaw or ear pain. She states sometimes it feels like her ear and sometimes like her jaw, but her teeth are not bothering her. She hasincreased pain when she opens her mouth wide, chews, or yawns. She rates the pain 8/10. She has nottaken any medication for this at home. Review [...] Procedure Laterality Date EGD TRANSORAL BIOPSY SINGLE/MULTIPLE 3/13/09 PAST SURGICAL HISTORY OF 1997 RIGHT TEMPORAL [...] (left TMJ) and pain on movement present. Noswelling or malocclusion. Right Ear: Tympanic membrane, ear canal and external ear normal. Left Ear: Tympanic membrane, ear canal and external ear normal. Nose: Nose normal. Mouth/Throat: Lips: [place]. Mouth: Mucous membranes are moist. Dentition: Normal [...] - Discussed expected course of illness Bela Pemberton-FRANCO Pires.WIRE TRANSFER CLERK documented in this encounterCleveland Clinic [facility]08-10-2021 History of Present illness Narrative* Lluvia Schaffer RT(R) - 10/20/2020 5:40 PM EDT Radiology Service Progress Note PATIENT NAME: Josse Wayne DATE OF SERVICE: October 20, 2020 TIME: 5:54 PM PATIENT IDENTITY VERIFICATION COMPLETED USING TWO (2) IDENTIFIERS: Name and Date of confirmedby patient verbally. FALL SCREENING: Has the patient had 2 falls in the last year or 1 fall with injury or currently using an Ambulatory Assistive Device (Walker, Cane, Wheelchair, Crutches, etc.)? No PATIENT GENDER DATA: Female. status: : No status: NO. PATIENT RELEVANT IMPLANT DATA REVIEWED: Not Applicable RADIOLOGY DEPARTMENT: General X-ray: Exam(s) Completed: Lower Extremity X- Ray(s): Knee, AP / Lat / Tunne / Merchant Right and Wt. Bearing PERIPHERAL IV DATA: Not applicable SIGNED BY: RT Sylwia(R) October 20, 2020 5:54 PM documented in this encounterC[facility]05-02-2016 History of Past illness Narrative* Problem [...] encounter (statuses as of 07/09/2021) [facility] History of Past illness Narrative* Problem [...] encounter (statuses as of 08/05/2021) [facility] History of Past illness Narrative* Problem [...] encounter (statuses as of 09/28/2021) [facility] of Past illness Narrative* Problem [...] encounter (statuses as of 01/21/2022) [facility] History of Past illness Narrative* Problem [...] encounter (statuses as of 02/28/2022) [facility] History of Past illness Narrative* Problem [...] encounter (statuses as of 03/02/2022) [facility] of Past illness Narrative* Problem [...] encounter (statuses as of 06/07/2022) [facility] of Past illness Narrative* Problem [...] encounter (statuses as of 07/01/2022) [facility] of Past illness Narrative* Problem [...] encounter (statuses as of 07/22/2022) [facility] of Past illness Narrative* Problem [...] encounter (statuses as of 09/05/2022) [facility] of Past illness Narrative* Problem [...] encounter (statuses as of 02/14/2023) [facility] of Past illness Narrative* Problem [...] encounter (statuses as of 04/26/2023) [facility] of Past illness Narrative* Problem [...] of this encounter (statuses as of 05/10/2023) [facility] note* Diagnosis PCOS (polycystic ovarian syndrome) Polycystic ovaries Acute vaginitis Vaginitis and vulvovaginitis, unspecified Other disorders of pituitary gland (HCC) Other ovarian dysfunction Other ovarian dysfunction documented in this encounter [facility] Work Phone: Evaluation note* Diagnosis Hot flashes Symptomatic menopausal or female climacteric states documented in this encounter [facility] Work Phone: Evaluation note* Diagnosis TMJ pain dysfunction syndrome- Primary Other specified temporomandibular joint disorders documented in this encounter [facility] noteNo assessment information availableAs[facility]abula [facility] Work Phone: [facility]* Diagnosis Contusion of right lower extremity, subsequent encounter- Primary Prepatellar bursitis, right knee documented in this encounter [facility] note* Diagnosis Encounter for medical examination to establish care- Primary Rash of face Rash and other nonspecific skin eruption Moderate episode of recurrent major depressive disorder (HCC) PCOS (polycystic ovarian syndrome) Polycystic ovaries 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 documented in this encounter [facility] note* Diagnosis Rhinosinusitis- Primary Unspecified sinusitis (chronic) documented in this encounter [facility] note* Diagnosis 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, not intractable, without status epilepticus (HCC)- Primary documented in this encounter [facility] note* Diagnosis Onset Date Resolution Status Yeast dermatitis acute [facility] Work Phone: Evaluation note* Diagnosis Sinobronchitis- Primary Unspecified sinusitis (chronic) Acute otitis media, left Unspecified otitis media documented in this encounter [facility] note* Diagnosis Sore throat- Primary Acute pharyngitis Papule of skin documented in this encounter [facility] note* Diagnosis 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, not intractable, without status epilepticus (HCC)- Primary documented in this encounter [facility] note* Diagnosis Right knee pain, unspecified chronicity- Primary documented in this encounter [facility] note* Diagnosis Osteoarthritis of right knee, unspecified osteoarthritis type- Primary documented in this encounter [facility] note* Diagnosis Right knee pain, unspecified chronicity documented in this encounter [facility] note* Diagnosis Primary osteoarthritis of both knees- Primary Primary localized osteoarthrosis, lower leg documented in this encounter [facility] note* Diagnosis Right knee injury, initial encounter documented in this encounter [facility] note* Diagnosis Excessive bleeding in premenopausal period- Primary documented in this encounter [facility] note* Diagnosis Excessive bleeding in premenopausal period- Primary Excessive bleeding in premenopausal period documented in this encounter [facility] note* Diagnosis Excessive bleeding in the premenopausal period Premenopausal menorrhagia documented in this encounter [facility] note* Diagnosis PCOS (polycystic ovarian syndrome)- Primary Polycystic ovaries Endometrial hyperplasia Endometrial hyperplasia, unspecified documented in this encounter [facility] note* Diagnosis PCOS (polycystic ovarian syndrome) Polycystic ovaries Endometrial hyperplasia, unspecified documented in this encounter [facility] note* Diagnosis PCOS (polycystic ovarian syndrome) Polycystic ovaries Elevated testosterone level in female Endometrial hyperplasia, unspecified documented in this encounter [facility] note* Diagnosis PCOS (polycystic ovarian syndrome) Polycystic ovaries Elevated testosterone level in female Endometrial hyperplasia, unspecified documented in this encounter [facility] note* Diagnosis 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, not intractable, without status epilepticus (HCC)- Primary Endometrial hyperplasia, unspecified documented in this encounter [facility] note* Diagnosis Class 3 severe obesity due to excess calories without serious comorbidity with body mass index (BMI) of 50.0 to 59.9 in adult (HCC)- Primary PCOS (polycystic ovarian syndrome) Polycystic ovaries documented in this encounter [facility] note* Diagnosis 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- Primary documented in this encounter [facility] note* Diagnosis Abnormal uterine bleeding (AUB)- Primary Menorrhagia with irregular cycle Excessive or frequent menstruation Endometrial hyperplasia Endometrial hyperplasia, unspecified * Assessment & Plan Note - Charlette Bryant APRN.CNM - 09/12/2024 1:02 PM EDT Associated Problem(s): Endometrial hyperplasia documented in this encounter [facility] note* Diagnosis Abnormal uterine bleeding (AUB)- Primary Menorrhagia with irregular cycle Excessive or frequent menstruation Endometrial hyperplasia Endometrial hyperplasia, unspecified PCOS (polycystic ovarian syndrome)- Primary Polycystic ovaries documented in this encounter [facility] note* Diagnosis Endometrial hyperplasia- Primary documented in this encounter [facility] note* Diagnosis Endometrial hyperplasia, unspecified documented in this encounter [facility] note* Diagnosis Abnormal uterine bleeding (AUB)- Primary [facility] Additional Instructions Follow up with your counselor, psychiatrist, and neurologist as scheduled. [facility] Work Phone: Hospital Discharge instructions* Attachments The following attachments cannot be sent through Care Everywhere. * Dilation and Curettage (D and C) (Afghan) documented in this [facility] Discharge instructions Additional Instructions Your evaluation in the Emergency Department did not reveal any acute reason for admission. However, I want to emphasize that you may be early in the course of a disease process or illness even if it is not present. For this reason you should follow-up within 24 hours for reevaluation with either your primary care physician or if necessary back here in the Emergency Department. You should return to the Emergency Department immediately if your symptoms worsen or new symptoms develop.[facility] Work Phone: Hospital Discharge instructions* Attachments The following attachments cannot be sent through Care Everywhere. * Dilation and Curettage (D and C) (Afghan) * General Anesthesia Discharge Instructions (Afghan) documented in this [facility] for referral (narrative)* Diagnostic Procedure Only (Routine) - Pending Review Specialty Diagnoses / Procedures Referred By Robson song Referred To Contact XR IMAGING Diagnoses Right knee pain, unspecified chronicity Procedures XR KNEE GENERAL 4V AP BOTH/PA BOTH/LAT/MERC RIGHT RADIOLOGIC EXAM KNEE COMPLETE 4/MORE VIEWS Anthony Garvin V, DO [address] [place] [address] [place] [address] Referral ID Status Reason Start Date Expiration Date Visits Requested Visits Authorized [id number] Pending Review Auto-Generat ed Referral 08/15/2023 09/13/2024 1 1 [facility] for referral (narrative)* Diagnostic Procedure Only (Urgent) - Closed Specialty Diagnoses / Procedures Referred By Contac t Referred To Contact XR IMAGING Diagnoses Right knee injury, initial encounter Procedures XR KNEE GENERAL 4V AP BOTH/PA BOTH/LAT/MERC RT KNEE AP-WGT/LAT/MERCHANT Luisa Khoury PA-C [address] [place] [address] [place] [address] Referral ID Status Reason Start Date Expiration Date V isits Requested Visits Authorized [id number] Closed Auto-Generate d Referral 10/20/2020 11/19/2021 1 1 [facility] for referral (narrative)No reason for referral information availableWThe [facility] of [facility] Work Phone: [facility] for visit Narrative* Diagnostic Procedure Only (Routine) - Closed Specialty Diagnoses / Procedures Referred By Contac t Referred To Contact XR IMAGING Diagnoses Right knee pain, unspecified chronicity Procedures XR KNEE GENERAL 4V AP BOTH/PA BOTH/LAT/MERC RIGHT RADIOLOGIC EXAM KNEE COMPLETE 4/MORE VIEWS Anthony Garvin V, DO [address] [place] [address] [place] [address] Referral ID Status Reason Start Date Expiration Date V isits Requested Visits Authorized [id number] Closed Auto-Generate d Referral 08/15/2023 09/13/2024 1 1 [facility] for visit Narrative* Diagnostic Procedure Only (Urgent) - Closed Specialty Diagnoses / Procedures Referred By Contac t Referred To Contact XR IMAGING Diagnoses Right knee injury, initial encounter Procedures XR KNEE GENERAL 4V AP BOTH/PA BOTH/LAT/MERC RT KNEE AP-WGT/LAT/MERCHANT Luisa Khoury PA-C [address] [place] [address] [place] [address] Referral ID Status Reason Start Date Expiration Date V isits Requested Visits Authorized [id number] Closed Auto-Generate d Referral 10/20/2020 11/19/2021 1 1 [facility] for visit Narrative* Auth/Cert (Routine) Specialty Diagnoses / Procedures Referred By Robson song Referred To Contact Diagnoses Excessive bleeding in the premenopausal period Procedures SD HYSTEROSCOPY BX ENDOMETRIUM&/POLYPC W/WO D&C HYSTEROSCOPY DILATION AND CURETTAGE Yessi Munoz MD [address] [place] [address] Phone: tel: fax: Referral ID Status Reason Start Date Expiration Date Visits Re quested Visits Authorized [id number] 02/25/2024 1 1 [facility] for visit Narrative* Auth/Cert (Routine) Specialty Diagnoses / Procedures Referred By Robson song Referred To Contact Diagnoses Endometrial hyperplasia, unspecified Procedures SD HYSTEROSCOPY BX ENDOMETRIUM&/POLYPC W/WO D&C HYSTEROSCOPY DILATION AND CURETTAGE Yessi Munoz MD [address] [place] [address] Phone: tel: fax: [facility] [address] [place] [address] Phone: tel: Referral ID Status Reason Start Date Expiration Date Visits Re quested Visits Authorized [id number] 1 1 [facility] Summary Purpose Family History No Family History Records Found Relationship Condition Age at Onset Recorded Date/T dajuan mother Cardiac disease Unknown Advance Directives No Advanced Directives Records FoundDocuments on File Type Date Recorded 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 ACP-Advance Directive ACP-Power of Automatic Tire Tester Latest Code Status on File Code Status Date Activated Date Inactivated Comments Full Code 11/01/2016 11:14 PM 11/07/2016 10:23 PM Documents on File Type Date Recorded 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 Advance Directive(s) 01/11/2018 4:04 PM Advance Directive Response Recorded Date/ Time Advance Directives No September 18 8 10:32am Living Will No August 02, 2021 9 :40pm Power of Automatic Tire Tester No August 02, 2021 9:40pm Advance Directive Response Recorded Date/ Time Advance Directives No September 18 8 10:32am Living Will No October 18, 2021 2:58pm Power of Automatic Tire Tester No October 18 2:58pm Advance Directive Response Recorded Date/ Time Advance Directives No September 18 8 10:32am Living Will No November 03 9:52pm Power of Automatic Tire Tester No November 03 022 9:52pm Advance Directive Response Recorded Date/ Time Advance Directives No September 18 10:32am Living Will Yes January 09 10:33pm Power of Automatic Tire Tester No January 09, 2022 10:33pm Documents on File Type Date Recorded 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 Advance Directive(s) 01/11/2018 4:04 PM Advance Directive Response Recorded Date/ Time Advance Directives No December 15, 2022 4:11pm Living Will No February 06 023 10:11pm Power of Automatic Tire Tester No February 06, 2023 10:11pm Date Activated Date Inactivated Comments 03/08/2024 12:57 PM 03/08/2024 7:10 PM Date Activated Date Inactivated Comments 03/08/2024 12:57 PM 03/08/2024 7:10 PM Date Activated Date Inactivated Comments 06/13/2024 10:37 PM 06/15/2024 4:38 PM Date Activated Date Inactivated Comments 03/08/2024 12:57 PM 03/08/2024 7:10 PM Advance Directive Response Recorded Date/ Time Advance Directives No December 15, 2022 5:11pm Advance Directive Response Recorded Date/ Time Do you have a Healthcare Power of Automatic Tire Tester? No December 02, 2024 7:53pm Advance Directives No December 15, 2022 5:11pm Date Activated Date Inactivated Comments 12/27/2024 10:57 AM 12/27/2024 5:52 PM Date Activated Date Inactivated Comments 06/13/2024 10:37 PM 06/15/2024 4:38 PM Date Activated Date Inactivated Comments 03/08/2024 12:57 PM 03/08/2024 7:10 PM Date Activated Date Inactivated Comments 12/27/2024 10:57 AM 12/27/2024 5:52 PM Date Activated Date Inactivated Comments 06/13/2024 [...] Date COUGH, NAUSEA, HEADACHE, CONGESTION 2024 6:54am Chief Complaint Admit Date COUGH, NAUSEA, HEADACHE, CONGESTION 2024 6:54am Anxiety, seizures December 02, 2024 7:37pm Medications Administered Section Inactive Administered Medications - [...] of face Procedures CONSULT TO DERMATOLOGY OFFICE/OUTPATIENT [facility] 60-74 MINUTES Gabe Pierre, TRANSMISSION WORKER.WIRE TRANSFER CLERK [address] [place] [address] Newspaper Reporter, [facility] [address] [place] [address] Referral ID Status Reason Start Date Expiration Date Visits Requested Visits Authorized [id number] Pending Review PCP Requested Referral 2 03/02/2023 1 1 Additional Source Comments INFORMATION SOURCE (unrecogn ized section and content) DATE CREATED AUTHOR 04/24/2018 [facility] DATE CREATED AUTHOR AUTHOR'S ORGANIZ ATION 09/12/2018 [facility] DATE CREATED AUTHOR AUTHOR'S ORGANIZ ATION 01/01/2021 [facility] [employer] [facility] DATE CREATED AUTHOR AUTHOR'S ORGANIZ ATION 01/08/2023 [facility] DATE CREATED AUTHOR AUTHOR'S ORGANIZ ATION 12/03/2024 [facility] DATE CREATED AUTHOR AUTHOR'S ORGANIZ ATION 01/20/2025 [facility] [employer] [facility] DATE CREATED AUTHOR AUTHOR'S ORGANIZ ATION 01/21/2025 [facility] Source Comments (unrecognize d section and content) In the event this informatio n is protected by the Federal Confidentiality of Alcohol and Drug Abuse Patient Records regulations: The Federal rules restrict any use of the information to criminally investigate or prosecute any alcohol or drug abuse patient.[facility] Hospital[facility] the event this information is protected by the Federal Confidentiality of Alcohol and Drug Abuse Patient Records regulations: The Federal rules restrict any use of the information to criminally investigate or prosecute any alcohol or drug abuse patient.[facility] HospitalIn the event this information is protected by the Federal Confidentiality of Alcohol and Drug Abuse Patient Records regulations: The Federal rules restrict any use of the information to criminally investigate or prosecute any alcohol or drug abuse patient.[facility] HospitalIn the event this information is protected by the Federal Confidentiality of Alcohol and Drug Abuse Patient Records regulations: The Federal rules restrict any use of the information to criminally investigate or prosecute any alcohol or drug abuse patient.[facility] HospitalIn the event this information is protected by the Federal Confidentiality of Alcohol and Drug Abuse Patient Records regulations: The Federal rules restrict any use of the information to criminally investigate or prosecute any alcohol or drug abuse patient.[facility] HospitalIn the event this information is protected by the Federal Confidentiality of Alcohol and Drug Abuse Patient Records regulations: The Federal rules restrict any use of the information to criminally investigate or prosecute any alcohol or drug abuse patient.[facility] HospitalIn the event this information is protected by the Federal Confidentiality of Alcohol and Drug Abuse Patient Records regulations: The Federal rules restrict any use of the information to criminally investigate or prosecute any alcohol or drug abuse patient.[facility] HospitalIn the event this information is protected by the Federal Confidentiality of Alcohol and Drug Abuse Patient Records regulations: The Federal rules restrict any use of the information to criminally investigate or prosecute any alcohol or drug abuse patient.[facility] HospitalIn the event this information is protected by the Federal Confidentiality of Alcohol and Drug Abuse Patient Records regulations: The Federal rules restrict any use of the information to criminally investigate or prosecute any alcohol or drug abuse patient.[facility] HospitalIn the event this information is protected by the Federal Confidentiality of Alcohol and Drug Abuse Patient Records regulations: The Federal rules restrict any use of the information to criminally investigate or prosecute any alcohol or drug abuse patient.[facility] HospitalIn the event this information is protected by the Federal Confidentiality of Alcohol and Drug Abuse Patient Records regulations: The Federal rules restrict any use of the information to criminally investigate or prosecute any alcohol or drug abuse patient.[facility] HospitalIn the event this information is protected by the Federal Confidentiality of Alcohol and Drug Abuse Patient Records regulations: The Federal rules restrict any use of the information to criminally investigate or prosecute any alcohol or drug abuse patient.[facility] HospitalIn the event this information is protected by the Federal Confidentiality of Alcohol and Drug Abuse Patient Records regulations: The Federal rules restrict any use of the information to criminally investigate or prosecute any alcohol or drug abuse patient.[facility] HospitalIn the event this information is protected by the Federal Confidentiality of Alcohol and Drug Abuse Patient Records regulations: The Federal rules restrict any use of the information to criminally investigate or prosecute any alcohol or drug abuse patient.[facility] HospitalIn the event this information is protected by the Federal Confidentiality of Alcohol and Drug Abuse Patient Records regulations: The Federal rules restrict any use of the information to criminally investigate or prosecute any alcohol or drug abuse patient.[facility] HospitalIn the event this information is protected by the Federal Confidentiality of Alcohol and Drug Abuse Patient Records regulations: The Federal rules restrict any use of the information to criminally investigate or prosecute any alcohol or drug abuse patient.[facility] HospitalIn the event this information is protected by the Federal Confidentiality of Alcohol and Drug Abuse Patient Records regulations: The Federal rules restrict any use of the information to criminally investigate or prosecute any alcohol or drug abuse patient.[facility] HospitalIn the event this information is protected by the Federal Confidentiality of Alcohol and Drug Abuse Patient Records regulations: The Federal rules restrict any use of the information to criminally investigate or prosecute any alcohol or drug abuse patient.[facility] HospitalIn the event this information is protected by the Federal Confidentiality of Alcohol and Drug Abuse Patient Records regulations: The Federal rules restrict any use of the information to criminally investigate or prosecute any alcohol or drug abuse patient.[facility] HospitalIn the event this information is protected by the Federal Confidentiality of Alcohol and Drug Abuse Patient Records regulations: The Federal rules restrict any use of the information to criminally investigate or prosecute any alcohol or drug abuse patient.[facility] HospitalIn the event this information is protected by the Federal Confidentiality of Alcohol and Drug Abuse Patient Records regulations: The Federal rules restrict any use of the information to criminally investigate or prosecute any alcohol or drug abuse patient.[facility] HospitalIn the event this information is protected by the Federal Confidentiality of Alcohol and Drug Abuse Patient Records regulations: The Federal rules restrict any use of the information to criminally investigate or prosecute any alcohol or drug abuse patient.[facility] HospitalIn the event this information is protected by the Federal Confidentiality of Alcohol and Drug Abuse Patient Records regulations: The Federal rules restrict any use of the information to criminally investigate or prosecute any alcohol or drug abuse patient.[facility] HospitalIn the event this information is protected by the Federal Confidentiality of Alcohol and Drug Abuse Patient Records regulations: The Federal rules restrict any use of the information to criminally investigate or prosecute any alcohol or drug abuse patient.[facility] HospitalIn the event this information is protected by the Federal Confidentiality of Alcohol and Drug Abuse Patient Records regulations: The Federal rules restrict any use of the information to criminally investigate or prosecute any alcohol or drug abuse patient.[facility] HospitalIn the event this information is protected by the Federal Confidentiality of Alcohol and Drug Abuse Patient Records regulations: The Federal rules restrict any use of the information to criminally investigate or prosecute any alcohol or drug abuse patient.[facility] HospitalIn the event this information is protected by the Federal Confidentiality of Alcohol and Drug Abuse Patient Records regulations: The Federal rules restrict any use of the information to criminally investigate or prosecute any alcohol or drug abuse patient.[facility] HospitalIn the event this information is protected by the Federal Confidentiality of Alcohol and Drug Abuse Patient Records regulations: The Federal rules restrict any use of the information to criminally investigate or prosecute any alcohol or drug abuse patient.[facility] Reason for Visit (unrecogniz ed section and content) Reason Comments Pain Pt reported jaw, (LT ) ear pain rated 8, x2 weeks Reason Onset Date Comments Population Health Navigation Outreach 08/05/2021 [place] Attribution Care Gaps Reason Comments Results Reason [...] Date Comments Population Health Navigation Outreach 02/14/2023 [place] Attribution Member- Chart review Reason Comments Cough [...] 04/18/2024 Pt calling needs referral sent to [facility] for endocrinology phone number is [phone].Please send referral this is closer to her homePlease advise Reason Onset Date Comments Other 04/18/2024 Pt calling needs referral sent to [facility] endocrinology phone number is [phone].Please send referral this is closer to her homePlease advise Referral 04/18/2024 Patient states s he could not get into [facility] and would like the order sent to Dr. Ziyad Harrell at [facility] [address] Specialty [phone] Reason Comments Consult PCOS Specialty Diagnoses / Procedures Referred By Robson song Referred To Contact [facility] Diagnoses PCOS (polycystic ovarian syndrome) Elevated testosterone level in female Procedures OFFICE/OUTPATIENT NEW HIGH MDM 60 MINUTES [id number] (SNOMED CT) - AMB REFERRAL TO ENDOCRINOLOGY Yessi Munoz MD [address] [place] [address] Phone: tel: fax: Ziyad Harrell MD [address] [place] [address] Phone: tel:[phone] fax:[phone] Referral ID Status Reason Start Date Expiration Date V isits Requested Visits Authorized [id number] Pending Review 04/22/2024 04/22/2025 1 1 Reason Onset Date Comments Surgery Scheduling 06/12/2024 Reason Comments Results, Lab Reason Comments Appointment Disgruntled Patient Reason Onset Date Comments Surgery Scheduling 11/12/2024 Patient is ca lling back to reschedule Surgery. Please call her back to discuss. Thank you. Reason Comments Non-Chemotherapy Treatment Reason Comments Follow-up Discuss repeat hyste roscopy D&C for endometrial hyperplasia Last surgery on 03/08 On and off bleeding heavy bleeding Lower pelvic pain Reason Onset Date Comments Other 12/05/2024 Surgery scheduli ng form Surgery Scheduling 12/05/2024 Reason Comments Post-op Visit 2 wk post op 10/17 h ysteroscopy D&C Goals (unrecognized section and content) Goals may [...] Care Teams (unrecognized sec tion and content) Shop Fitter Relationship Specialty Start Date End Date Gabe Pierre, TRANSMISSION WORKER.WIRE TRANSFER CLERK [address] [place] [address] PCP - General Internal Medicine 03/03/22 Shop Fitter Relationship Specialty Start Date End Date Gabe Pierre, TRANSMISSION WORKER.WIRE TRANSFER CLERK [address] [place] [address] PCP - General Internal Medicine 03/03/22 Shop Fitter Relationship Specialty Start Date End Date Carol Sharp DO [address] [place] [address] PCP - General Family Medicine 07/08/22 Shop Fitter Relationship Specialty Start Date End Date Carol Sharp DO [address] [place] [address] PCP - General Family Medicine 07/08/22 Shop Fitter Relationship Specialty Start Date End Date Gabe Pierre, TRANSMISSION WORKER.WIRE TRANSFER CLERK [address] [place] [address] PCP - General Internal Medicine 03/03/22 Shop Fitter Relationship Specialty Start Date End Date Carol Sharp DO [address] [place] [address] PCP - General Family Medicine 07/08/22 Team Status: Active Member Role Status Dates Dr. Abdirashid Vazquez , Family Provider Active Chantel Kinsey DO Primary Care Provider Active Team Status: Inactive Member Role Status Dates No Primary Care Physician Primary Care Provider, Refer ring Provider Active Gadiel MUELLER, PA Attending Provider Active Team Status: Inactive Member Role Status Dates Dr. Nita Duffy MD Emergency Provider Active Chantel Kinsey DO Primary Care Provider Active Shop Fitter Relationship Specialty Start Date End Date Gabe Pierre, TRANSMISSION WORKER.WIRE TRANSFER CLERK [address] [place], [place] [id number] PCP - General Internal Medicine 03/03/22 Shop Fitter Relationship Specialty Start Date End Date Carol Sharp DO [address] [place] [id number] PCP - General Family Medicine 07/08/22 Shop Fitter Relationship Specialty Start Date End Date Gabe Pierre, TRANSMISSION WORKER.WIRE TRANSFER CLERK [address] [place] [address] PCP - General Internal Medicine 03/03/22 Shop Fitter Relationship Specialty Start Date End Date Palma Neri (Pss) PCP - General 05/10/23 Shop Fitter Relationship Specialty Start Date End Date Carol Sharp DO [address] [place] [phone] PCP - General Family Medicine 07/08/22 Shop Fitter Relationship Specialty Start Date End Date Palma Neri (Pss) PCP - General 05/10/23 Shop Fitter Relationship Specialty Start Date End Date Palma Neri (Pss) PCP - General 05/10/23 Shop Fitter Relationship Specialty Start Date End Date Palma Neri (Pss) PCP - General 05/10/23 Shop Fitter Relationship Specialty Start Date End Date Palma Neri (Pss) PCP - General 05/10/23 Shop Fitter Relationship Specialty Start Date End Date Palma Neri (Pss) PCP - General 05/10/23 Shop Fitter Relationship Specialty Start Date End Date Abdirashid Vazquez DO [address] [place] [address] PCP - General Family Medicine 01/02/18 01/02/21 Shop Fitter Relationship Specialty Start Date End Date Carol Sharp DO [address] [place] [id number] PCP - General Family Medicine 07/08/22 Shop Fitter Relationship Specialty Start Date End Date Carol Sharp DO [address] [place] [address] PCP - General Family Medicine 07/08/22 Shop Fitter Relationship Specialty Start Date End Date Carol Sharp DO [address] [place] [address] PCP - General Family Medicine 07/08/22 Shop Fitter Relationship Specialty Start Date End Date Abdirashid Vazquez [address] [place] [address] PCP - General 01/06/21 Shop Fitter Relationship Specialty Start Date End Date Carol Sharp DO [address] [place] [address] [place] [address] PCP - General Family Medicine 07/08/22 Shop Fitter Relationship Specialty Start Date End Date Peter Maya MD [address] [place] [address] [address] [place] [address] PCP - General Family Medicine 02/28/24 Shop Fitter Relationship Specialty Start Date End Date Peter Maya MD [address] [place] [address] [address] [place] [address] PCP - General Family Medicine 02/28/24 Shop Fitter Relationship Specialty Start Date End Date Peter Maya MD [address] [place] [address] [address] [place] [address] PCP - General Family Medicine 02/28/24 Shop Fitter Relationship Specialty Start Date End Date Peter Maya MD [address] [place] [address] PCP - General Family Medicine 02/28/24 Shop Fitter Relationship Specialty Start Date End Date Peter Maya MD [address] [place] [address] [address] [place] [address] PCP - General Family Medicine 02/28/24 Shop Fitter Relationship Specialty Start Date End Date Peter Maya MD [address] [place] [address] PCP - General Family Medicine 02/28/24 Shop Fitter Relationship Specialty Start Date End Date Peter Maya MD [address] [place] [address] [address] [place] [address] PCP - General Family Medicine 02/28/24 Shop Fitter Relationship Specialty Start Date End Date Peter Maya MD [address] [place] [address] PCP - General Family Medicine 02/28/24 Shop Fitter Relationship Specialty Start Date End Date Peter Maya MD [address] [place] [address] PCP - General Family Medicine 02/28/24 Shop Fitter Relationship Specialty Start Date End Date Peter Maya MD [address] [place] [address] PCP - General Family Medicine 02/28/24 Shop Fitter Relationship Specialty Start Date End Date Palma Neri PCP - General 05/10/23 Yessi Munoz MD [address] [facility] [address] [place], [place] [address] Referring Obstetrics 04/23/24 Shop Fitter Relationship Specialty Start Date End Date Peter Maya MD [address] [place] [address] PCP - General Family Medicine 02/28/24 Shop Fitter Relationship Specialty Start Date End Date Peter Maya MD [address] [place] [address] [address] [place], [place] [address] PCP - General Family Medicine 02/28/24 Team Status: Active Member Role Status Dates Dr. Abdirashid Vazquez , DO Family Provider Active YA Sheridan Primary Care Provider Active Team Status: Inactive Member Role Status Dates Peter Maya MD Primary Care Provider Active St art: August 31, 2024 End: August 31, 2024 Jones Valenzuela YA Monzon Attending Provider Active S tart: August 31, 2024 End: August 31, 2024 Team Status: Active Member Role Status Dates YA Sheridan Primary Care Provider Active Start: September 03, 2024 YA Sheridan Attending Provider Active Start: September 03, 2024 Shop Fitter Relationship Specialty Start Date End Date Yessi Munoz MD [address] [place] [address] Referring Obstetrics 04/23/24 Rafia Bianchi APRN.WIRE TRANSFER CLERK [address] [place] [address] Family Medicine 09/03/24 Team Status: Active Member Role/Relationship Status Dates Dr. Abdirashid Vazquez , Family Provider Active YA Sheridan Primary Care Provider Active Team Status: Inactive Member Role/Relationship Status Dates Peter Maya MD Primary Care Provider Active St art: August 31, 2024 End: August 31, 2024 Jones MAURICE NP-C Attending Provider Active S tart: August 31, 2024 End: August 31, 2024 Team Status: Inactive Member Role/Relationship Status Dates YA Sheridan Primary Care Provider Active Start: September 03, 2024 End: September 03, 2024 YA Sheridan Attending Provider Active Start: September 03, 2024 End: September 03, 2024 Shop Fitter Relationship Specialty Start Date End Date Yessi Munoz MD [address] [facility] [address] [place] [address] Referring Obstetrics 04/23/24 Rafia Bianchi APRN.WIRE TRANSFER CLERK [address] [place] [address] Family Medicine 09/03/24 Shop Fitter Relationship Specialty Start Date End Date Yessi Munoz MD [address] [facility] [address] [place] [address] Referring Obstetrics 04/23/24 Rafia Bianchi APRN.WIRE TRANSFER CLERK [address] [place] [address] Family Medicine 09/03/24 Team Status: Inactive Member Role/Relationship Status Dates YA Sheridan Primary Care Provider Active Start: November 04, 2024 End: November 04, 2024 YA Sheridan Referring Provider Active Start: November 04, 2024 End: November 04, 2024 Ronnie Holbrook PA, PA Attending Provider Active Start: November 04, 2024 End: November 04, 2024 Shop Fitter Relationship Specialty Start Date End Date Yessi Munoz MD [address] [facility] [address] [place], [place] [address] Referring Obstetrics 04/23/24 Rafia Bianchi APRN.[facility] [address] [place] [address] Family Medicine 09/03/24 Shop Fitter Relationship Specialty Start Date End Date Peter Maya MD [address] [place] [address] PCP - General Family Medicine 02/28/24 Shop Fitter Relationship Specialty Start Date End Date Peter Maya MD [address] [place] [address] PCP - General Family Medicine 02/28/24 Shop Fitter Relationship Specialty Start Date End Date Peter Maya MD [address] [place] [address] PCP - General Family Medicine 02/28/24 11/19/24 Team Status: Active Member Role/Relationship Status Dates YA Sheridan Primary care physician Active Team Status: Inactive Member Role/Relationship Status Dates Peter Maya MD Primary care physician Active S tart: August 31, 2024 End: August 31, 2024 SUSANA LeroyC Attending physician Active Start: August 31, 2024 End: August 31, 2024 Team Status: Inactive Member Role/Relationship Status Dates YA Sheridan Primary care physician Active Start: September 03, 2024 End: September 03, 2024 YA Sheridan Attending physician Active Start: September 03, 2024 End: September 03, 2024 Team Status: Inactive Member Role/Relationship Status Dates YA Sheridan Primary care physician Active Start: November 04, 2024 End: November 04, 2024 YA Sheridan Referring Provider Active Start: November 04, 2024 End: November 04, 2024 Ronnie MUELLER, PA Attending physician Active Start: November 04, 2024 End: November 04, 2024 Team Status: Inactive Member Role/Relationship Status Dates YA Sheridan Primary care physician Active Start: December 02, 2024 End: December 02, 2024 Dr. Dalia Valdes MD Attending physician Active Start: December 02, 2024 End: December 02, 2024 Dr. Dalia Valdes MD Emergency Departmen t Physician Active Start: December 02, 2024 End: December 02, 2024 Scheduled Active and Recently Administ ered Medications [...] Rose RN)[id number] (Continued by Anesthesia - Provider: Benjamin Mattson APRN - AQUILINO)[id number] (Anesthesia Volume Adjustment - Provider: FRANCO Shrestha [...] For 1 dose, Preprocedure, IV or Oral Scheduled Medication Order 12/25/2024 12/26/2024 12/27/2024 sodium chloride 0.9% (NS) flush 5-40 mL 5-40 mL, IntraVENous, Every 12 hours, First dose on Mon12/27/24 at 1100, Preprocedure, For Line Patency: Peripheral IV = [...] Midline or Central Line = 20 mL/lumen 1100 (Canceled Entry - Provider: Automatic Discharge Provider - Comment: Automatically canceled at discontinue of medication order) Continuous Medication Order 12/25/2024 12/26/2024 12/27/2024 sodium chloride 0.9 % infusion 50 mL/hr, IntraVENous, Continuous, Starting on Mon12/27/24 at 1100, Preprocedure, Upon admission to sameday - please start iv if patient does not have iv access. 1100 (Canceled Entry - Provider: Automatic Discharge Provider - Comment: Automatically canceled at discontinue of medication order) PRN Medication Order 12/25/2024 12/26/2024 12/27/2024 Chlorhexidine Gluconate Cloth 2 % cloth Topical, PRN, no prior CHG bath to planned surgical site, Starting on Mon12/27/24 at 1057, For 1 dose, Preprocedure, Chlorhexidine Cloth 2% topically to planned surgical site once PRN for outpatients who did not perform CHG bath/shower as instructed sodium chloride 0.9 % infusion 5-250 mL/hr, IntraVENous, PRN, if patient receiving piggyback infusions and maintenance fluids are not ordered OR KVO fluids to protect IV site / prevent frequent line interruptions / long duration, Starting on Mon12/27/24 at 1057, Preprocedure, For piggyback infusion, administer at same [...] into rate field of order. sodium chloride 0.9 % irrigation solution (CANCELED) As needed, Starting on Mon12/27/24 at 1403, Intraprocedure 1403 (Given - Provid er: Yessi Munoz MD - Comment: HYSTEROSCOPY) sodium chloride 0.9% (NS) flush 5-40 mL 5-40 mL, IntraVENous, PRN, line care, After every IV line use, Starting on Mon12/27/24 at 1057, Preprocedure, For Line Patency: Peripheral IV = [...] Midline or Central Line = 20 mL/lumen FOR RECORDS PERTAINING TO PATIENTS WHO ARE [...] BE BASED ON THE PRIMARY CLINICAL RECORDS. [facility]. provides no warranty or guarantee of the accuracy or completeness of information in this document.
[2025-02-06 12:57] LABS: Hematocrit 40.7 % (37-47); Hemoglobin 14.1 g/dL (12.0-15.0); Immature Granulocytes Count 0.030 X10^3/uL (0.0-0.0); Mean Corp Hgb Conc 34.6 g/dL (32-36); Mean Corpuscular Volume 82.7 fL (81-99); Mean Platelet Vol. 9.2 fl (6.2-12.0); NRBC Flagged by Analyzer 0 % (0-5); Platelet Count 331 K/mm3 (150-450); RBC Distribution Width CV 12.0 % (11.6-14.6); RBC Distribution Width SD 36.2 fl (35.1-43.9); Red Blood Count 4.92 M/mm3 (4.2-5.4); White Blood Count 5.9 K/mm3 (4.4-11.0)
[2025-02-06] MEDS: 0.9% Normal Saline (1000mL) 1,000 ML 999 ML IV (13:09)
[2025-02-06 13:31] LABS: Anion Gap 14 (5-15); BUN 10 mg/dL (4-19); BUN/Creat Ratio 14.8 RATIO (10-20); Calcium,Total 9.2 mg/dL (7.6-11.0); Carbon Dioxide 21.4 mmol/L (21.0-32.0); Chloride 103 mmol/L (98-108); Estimated Creatinine Clearance 162.87 ml/min (50-250); Free T3 3.4 pg/mL (2.18-3.98); Glucose 137 mg/dL (70-99); Potassium 3.7 mmol/L (3.3-5.1); Troponin T High Sensitivity < 6 ng/L (<=14)
[2025-02-06 14:00] VITALS: BP 147/84; PULSE 87; RESP 18; O2SAT 97
[2025-02-06 15:10] LABS: Troponin T High Sens 2 HR < 6 ng/L (<=14)
[2025-02-06 15:36] VITALS: BP 131/78; PULSE 67; RESP 15; TEMP 36.6; O2SAT 99
== END 2025-02-06 15:39 | disposition home or self-care (01) ==
PROVIDERS: Emergency Provider Emergency Medicine; PCP Nurse Practitioner Family; Visit Provider Emergency Medicine
DX: R00.0 Tachycardia, unspecified (principal); F44.81 Dissociative identity disorder; F31.9 Bipolar disorder, unspecified; F41.9 Anxiety disorder, unspecified; E28.2 Polycystic ovarian syndrome; I10 Essential (primary) hypertension; F43.10 Post-traumatic stress disorder, unspecified; Z79.899 Other long term (current) drug therapy
CPT/HCPCS: 71046; 80048; 84439; 84443; 84481; 84484; 85025; 93005; 96360; 96361; 99285; A4216